=== PATIENT | female | born 1975 | race Caucasian/White ===

== ENCOUNTER 2019-06-06 10:49 | Outpatient (REF) | payer MEDICARE, MEDICAID, SELFPAY ==
[2019-06-06 19:17] LABS: ALT 32 U/L (14-59); AST 23 U/L (15-37); Albumin 4.1 g/dL (3.4-5.0); Alkaline Phosphatase 65 U/L (46-116); Anion Gap 8.4 mmol/L (3-11); BUN 13 mg/dL (7-18); Bilirubin, Total 0.6 mg/dL (0.2-1.0); CO2 28.6 mmol/L (21.0-32.0); CREATININE 0.89 mg/dL (0.55-1.02); Calcium 9.2 mg/dL (8.5-10.1); Calculated LDL 108 mg/dL; Chloride 99 mmol/L (98-107); Cholesterol 180 mg/dL (50-200); Glucose 282 mg/dL (70-100); HDL Cholesterol 58 mg/dL (40-60); Sodium 136 mmol/L (136-145); TSH (W/Ref FT4) 0.55 uIU/mL (0.36-3.74); Total Protein 7.7 g/dL (6.4-8.2); Triglyceride 71 mg/dL (30-150)
[2019-06-06 19:28] LABS: Vitamin D 25 Total 28.9 ng/ml (30-100)
== END 2019-06-06 11:09 ==
LOC: NCHCN 10:49
PROVIDERS: PCP Nurse Practitioner; Visit Provider Nurse Practitioner
DX: E55.9 Vitamin D deficiency, unspecified (principal); E78.5 Hyperlipidemia, unspecified; E10.65 Type 1 diabetes mellitus with hyperglycemia; Z13.29 Encounter for screening for other suspected endocrine disorder
CPT/HCPCS: 80053; 80061; 82306; 84443

== ENCOUNTER 2019-07-06 20:15 | Outpatient (REF) | payer MEDICARE, MEDICAID, SELFPAY ==
[2019-07-06 19:54] LABS: Abs Immature Grans 0.01 k/cumm (0.0-0.09); Absolute Basophil Count 0.03 k/cumm (0.0-0.2); Absolute Eosinophil Count 0.04 k/cumm (0.0-0.7); Absolute Lymphocyte Count 1.33 k/cumm (1.2-3.4); Absolute Monocyte Count 0.56 k/cumm (0.11-0.7); Absolute Neutrophil Count 5.75 k/cumm (1.2-6.7); Basophils % 0.4; Eosinophils % 0.5; HCT 43.3 % (36.0-46.0); HGB 14.6 g/dL (12.0-15.5); Immature Grans % 0.1; Lymphocytes % 17.2; Mean Corp. HGB Concentration 33.7 g/dL (32.0-36.0); Mean Corpuscular Hemoglobin 31.3 pg (27.0-33.0); Mean Corpuscular Volume 92.9 fL (80-95); Mean Platelet Volume 10.9 fL (8.0-11.0); Monocytes % 7.3; Neutrophils % 74.5; Platelet Count 194 x1000/uL (130-400); RBC 4.66 m/cumm (4.00-5.20); RBC Distribution Width 12.2 % (11.7-14.6); White Blood Cell Count 7.72 k/cumm (4.4-10.8)
[2019-07-06 20:19] LABS: Iron 105 ug/dL (50-170); Total Iron Binding Capacity 244 ug/dL (250-450); Transferrin Sat 43 % (15-50)
[2019-07-06 20:50] LABS: Ferritin 388 ng/mL (8-252)
[2019-07-06 22:34] LABS: Amylase 58 U/L (25-115); Lipase 54 U/L (73-393)
== END 2019-07-06 20:35 ==
LOC: NCHCN 20:15
PROVIDERS: PCP Nurse Practitioner; Visit Provider Nurse Practitioner
DX: R10.9 Unspecified abdominal pain (principal); E10.65 Type 1 diabetes mellitus with hyperglycemia
CPT/HCPCS: 83690; 82150; 82728; 83540; 83550; 85025

== ENCOUNTER 2019-07-14 00:29 | Outpatient (CLI) | payer MEDICARE, MEDICAID, SELFPAY ==
--- NOTE | 2019-07-14 12:05 | DI.CT_ITS ---
EXAM: CT ABDOMEN PELVIS W CLINICAL HISTORY: ABD PAIN, R10.9 TECHNIQUE: Post IV and oral contrast. COMPARISON: No exams were available for comparison FINDINGS: Lung bases are clear. The heart size is normal. The liver, gallbladder, spleen, pancreas, and adre nals appear normal. There is a small cyst and a few small calcifications at the lower pole of the le ft kidney. Nonobstructing stone is seen in the mid right kidney. The patient is status post hystere ctomy. The ovaries are unremarkable. The urinary bladder is distended and shows a question of mild wall thickening. No focal bladder mass or calcification is seen. The appendix appears normal. Ther e is increased quantity of stool seen throughout the colon. There is no bowel wall thickening or inf lammatory change. There is no abnormal small bowel or gastric dilatation. The aorta is normal in di ameter. There are no significant bony abnormalities. IMPRESSION: Distended urinary bladder with mild wall thickening. Increased quantity of stool could indicate an e lement of constipation.
[2019-07-14] MEDS: Omnipaque 350 MG/ML 100 ML BTL IV (12:49)
[2019-07-14] MEDS: Omnipaque 350 MG/ML 50 ML BTL PO (12:50)
[2019-07-14] MEDS: Breeza Beverage 473 ML BTL PO (12:50)
== END 2019-07-14 00:49 ==
PROVIDERS: PCP Nurse Practitioner; Visit Provider Nurse Practitioner
DX: R10.9 Unspecified abdominal pain (principal); N32.89 Other specified disorders of bladder; K59.00 Constipation, unspecified
CPT/HCPCS: 74177; J3490; Q9967

== ENCOUNTER 2019-07-25 00:48 | Outpatient (CLI) | payer MEDICARE, MEDICAID, SELFPAY ==
--- NOTE | 2019-07-25 09:47 | DI.US_ITS ---
EXAM: US RENAL CLINICAL HISTORY: BLADDER DISENTION N32.89 TECHNIQUE: Ultrasound performed using standard protocol. COMPARISON: PELVIS TRANSVAG from 04/13/2017 FINDINGS: The right kidney measures 10.4 centimeters long. There is a 4 millimeter echogenic focus in the lowe r pole suggestive of a nonobstructing stone. There is normal blood flow to the right kidney. No lori id renal mass is present. The left kidney measures 10.7 centimeters long. There is a 6 millimeter echogenic focus seen in the lower pole. This likely reflects a nonobstructing stone. There is normal blood flow to the left kid mikey. No solid renal mass is present. The prevoid urinary bladder volume is 580 cc. The bladder wall is within normal limits. No intralum inal mass is present. Both ureteral jets were visualized. IMPRESSION: Bilateral nephrolithiasis. No hydronephrosis.
== END 2019-07-25 01:08 ==
PROVIDERS: PCP Nurse Practitioner; Visit Provider Nurse Practitioner
DX: N32.89 Other specified disorders of bladder (principal); N20.0 Calculus of kidney
CPT/HCPCS: 76770

== ENCOUNTER 2020-09-20 16:11 | Outpatient (REF) | payer MEDICARE, MEDICAID, SELFPAY ==
[2020-09-20 16:04] LABS: COMMENT (LAB VIEW ONLY) 42.23 mg/dL; Microalb ug/mg Crea 14.2 ug/mg Cr
== END 2020-09-20 16:12 | disposition home or self-care (01) ==
LOC: NCHCN 16:11
PROVIDERS: PCP Nurse Practitioner; Visit Provider Nurse Practitioner
DX: E11.65 Type 2 diabetes mellitus with hyperglycemia (principal)
CPT/HCPCS: 82043; 82570

== ENCOUNTER 2020-10-30 13:01 | Outpatient (REF) | payer MEDICARE, MEDICAID, SELFPAY ==
[2020-10-30 16:38] LABS: ALT 29 U/L (14-59); AST 25 U/L (15-37); Albumin 4.1 g/dL (3.4-5.0); Alkaline Phosphatase 78 U/L (46-116); Anion Gap 8.8 mmol/L (3-11); BUN 14 mg/dL (7-18); Bilirubin, Total 0.7 mg/dL (0.2-1.0); CO2 30.2 mmol/L (21.0-32.0); CREATININE 0.8 mg/dL (0.55-1.02); Calcium 9.1 mg/dL (8.5-10.1); Calculated LDL 99 mg/dL (<100); Chloride 99 mmol/L (98-107); Cholesterol 212 mg/dL (<200); Glucose 81 mg/dL (74-106); HDL Cholesterol 100 mg/dL (40-60); Potassium 4.5 mmol/L (3.5-5.1); Sodium 138 mmol/L (136-145); Total Protein 8.1 g/dL (6.4-8.2); Triglyceride 65 mg/dL (<150)
== END 2020-10-30 13:02 | disposition home or self-care (01) ==
LOC: NCHCN 13:01
PROVIDERS: PCP Nurse Practitioner; Visit Provider Nurse Practitioner
DX: E10.65 Type 1 diabetes mellitus with hyperglycemia (principal); E78.5 Hyperlipidemia, unspecified
CPT/HCPCS: 80053; 80061

== ENCOUNTER 2021-12-04 15:58 | Outpatient (REF) | payer MEDICARE, MEDICAID, SELFPAY ==
[2021-12-04 14:40] LABS: Abs Immature Grans 0.03 10^3/uL (0.0-0.06); Absolute Basophil Count 0.03 10^3/uL (0.0-0.2); Absolute Eosinophil Count 0.02 10^3/uL (0.0-0.7); Absolute Lymphocyte Count 1.64 10^3/uL (1.2-3.4); Absolute Neutrophil Count 4.34 10^3/uL (1.2-6.7); Basophils % 0.5; Eosinophils % 0.3; Immature Grans % 0.5; MCH 31.4 pg (27.0-33.0); MCHC 33.3 % (32.0-36.0); MCV 94 fL (80-95); MPV 10.2 fL (8.0-11.0); Monocytes % 7.6; Neutrophils % 66.1; Platelet Count 204 10^3/uL (130-400); RBC 4.14 10^6/uL (3.93-5.22); RDW 11.8 % (11.7-14.6); RDW-SD 41.1 fL; WBC 6.56 10^3/uL (4.4-10.8)
[2021-12-04 14:44] LABS: COMMENT (LAB VIEW ONLY) 24.21 mg/dL; Microalb ug/mg Crea 10.7 ug/mg Cr
[2021-12-04 15:00] LABS: ALT 30 U/L (14-59); AST 22 U/L (15-37); Alkaline Phosphatase 93 U/L (46-116); Anion Gap 6.2 mmol/L (3-11); BUN 20 mg/dL (7-18); Bilirubin, Total 0.6 mg/dL (0.2-1.0); CO2 30.8 mmol/L (21.0-32.0); CREATININE 0.9 mg/dL (0.55-1.02); Calcium 9.1 mg/dL (8.5-10.1); Chloride 100 mmol/L (98-107); Glucose 310 mg/dL (74-106); Potassium 4.7 mmol/L (3.5-5.1); Sodium 137 mmol/L (136-145); Total Protein 7.4 g/dL (6.4-8.2)
[2021-12-05 02:06] LABS: Vitamin D 25 Total 42.3 ng/mL (30-100)
[2021-12-05 10:55] LABS: HIV-1/2 Ag & Ab Screen Negative (Negative)
[2021-12-05 11:15] LABS: Hepatitis C Ab w Rflx HCV PCR Negative (Negative)
== END 2021-12-04 15:59 | disposition home or self-care (01) ==
LOC: NCHCN 15:58
PROVIDERS: PCP Nurse Practitioner; Visit Provider Nurse Practitioner Family
DX: E11.65 Type 2 diabetes mellitus with hyperglycemia (principal); Z79.4 Long term (current) use of insulin; E78.5 Hyperlipidemia, unspecified; G62.9 Polyneuropathy, unspecified; J45.20 Mild intermittent asthma, uncomplicated; Z11.4 Encounter for screening for human immunodeficiency virus [HIV]; Z11.59 Encounter for screening for other viral diseases; N18.1 Chronic kidney disease, stage 1
CPT/HCPCS: 80053; 82306; 86803; 87389; 82043; 82570; 85025

== ENCOUNTER 2022-01-03 20:20 | Emergency (ER) | payer MEDICARE, MEDICAID, SELFPAY ==
--- NOTE | 2022-01-03 20:00 | RT.EKG_ITS ---
APPROVED REPORT Exam: Resting ECG Reason for Exam: unresponsive Patient Location: E HR:68 bpm ECG Measurements Heart Rate 68 AXIS WY 139 P 62 QRSd 98 QRS 93 QT 380 T 100 QTc 405 Conclusion Sinus rhythm...normal P axis Inferoposterior infarct, acute. Lateral infarct, acute. +STEMI
--- NOTE | 2022-01-03 20:15 | DI.RAD_ITS ---
Exam(s) XR PORTABLE CHEST AP EXAM: XR PORTABLE CHEST AP CLINICAL HISTORY: Chest pain. TECHNIQUE: 2D digital imaging was performed. COMPARISON: No exams were available for comparison FINDINGS: Single AP portable view. Heart size is upper normal. The mediastinum is not widened. Lungs are clear. No infiltrates nor obvious pleural effusions. IMPRESSION: No acute pulmonary findings on this single AP portable view of the chest. DATA REPOSITORY: RADIATION DOSE DELIVERED: All CT scans at this facility use at least one of these dose optimization techniques: automated exposure control; mA and/or kV adjustment per patient size (includes targeted e xams where dose is matched to clinical indication); or iterative reconstruction.
[2022-01-03 20:17] VITALS: BP 95/54; PULSE 72; RESP 18; TEMP 36.5; O2SAT 100
--- NOTE | 2022-01-03 20:27 | ED.GENADUL_ITS ---
Discharge Plan Disposition Patient Disposition: [facility] Condition: Critical Discharge Details Clinical Impression: ST elevation NV (STEMI) Primary Care Provider: Felisha Juan ED Provider: Carlos Leone Home Meds and New Rx's Prescriptions: No Action fluconazole [Diflucan] 150 mg tablet 150 mg PO ONCE Qty: 1 0RF Rx Instructions: as a single dose pravastatin 40 MG tablet 40 mg PO HS insulin glargine [Lantus Solostar U-100 Insulin] 100 UNIT/1 ML insulin pen 23 u SQ DAILY insulin lispro [Humalog KwikPen Insulin] 200 UNIT/1 ML insulin pen 200 unit SQ AC & HS Rx Instructions: Sliding scale Medical Decision Making This is a 36-year-old female who was at home with her boyfriend when he stated she seemed weak, profoundly diaphoretic as when she has had low glucose. He brought her orange juice and checked her glucose found in the mid 100s, then called EMS who found the patient to have large inferior STEMI. Patient was reported to have waxing and waning mental status on route and aspirin was held. She arrives afebrile with blood pressure 95/54, pulse of 60 to 70s and she is oxygenating normally on room air. She is placed on a hall monitor with obvious inferior STEMI and reciprocal posterior changes. She was given a liter of fluid, given 25 mg of aspirin and portable chest x-ray obtained. I discussed the case with the on-call classified advertising manager at [facility] & the patient was accepted to Dr. Trent's service. We agree that the patient has critical illness and meets criteria for thrombolysis. I consented the patient and her boyfriend for the risks of thrombolysis and subsequently proceeded with 35 mg of tenecteplase in addition to 300 mg of Plavix, aspirin, heparin with bolus and drip. Chest x-ray does reveal some vascular congestion, but the patient will be preload dependent and will continue with fluids. Her boyfriend Delano reports that she has been immunized and boosted against COVID-19. He states that she had some exertional dyspnea this week that he had attributed to her routine spring allergies. Lab Data Lab results reviewed: Yes I reviewed the patient's lab results. Labs: Laboratory Results - last 24 hr 01/03/22 01/03/22 01/03/22 20:43 20:43 20:43 WBC 5.37 RBC 3.74 L Hgb 11.8 Hct 34.8 L MCV 93 MCH 31.6 MCHC 33.9 RDW 12.0 Plt Count 181 MPV 9.8 Immature Gran % 0.2 Neutrophils % 45.4 Lymphocytes % 41.7 Monocytes % 10.8 Eosinophils % 1.3 Basophils % 0.6 Nucleated RBC % 0.0 Absolute Neutrophils 2.44 Absolute Lymphocytes 2.24 Absolute Monocytes 0.58 Absolute Eosinophils 0.07 Absolute Basophils 0.03 PT 10.4 INR 1.0 APTT 20.0 L Sodium 137 Potassium 3.9 Chloride 104 Carbon Dioxide 27.9 Anion Gap 5.1 BUN 14 Creatinine 0.8 Estimated GFR/1.73 m2 >= 60.00 Glucose 110 H Calcium 9.1 Magnesium 2.2 Total Bilirubin 0.4 AST 24 ALT 22 Alkaline Phosphatase 72 Troponin I 129 H* Total Protein 6.9 Albumin 3.4 COVID-19 Source 01/03/22 21:00 WBC RBC Hgb Hct MCV MCH MCHC RDW Plt Count MPV Immature Gran % Neutrophils % Lymphocytes % Monocytes % Eosinophils % Basophils % Nucleated RBC % Absolute Neutrophils Absolute Lymphocytes Absolute Monocytes Absolute Eosinophils Absolute Basophils PT INR APTT Sodium Potassium Chloride Carbon Dioxide Anion Gap BUN Creatinine Estimated GFR/1.73 m2 Glucose Calcium Magnesium Total Bilirubin AST ALT Alkaline Phosphatase Troponin I Total Protein Albumin COVID-19 Source Nasal/Nares HPI General Mode of arrival: EMS . Date/Time Provider Initiated Documentation: 01/03/22 20:33 . Information obtained by: patient and EMS . History of Present Illness 46 year old F presents to the emergency department with the chief complaint of Chest pain that began approxi-1 hour ago, described as moderate and severe, and is localized to the chest. Patient reports no radiation. Patient started experiencing this minute(s) and it has been constant. No relieving factors improve symptom(s), No exacerbating factors reported . Patient notes chest pain, shortness of breath and weakness. Patient did receive the following treatments prior to arrival, none Related Data Home Medications Medication Instructions Recorded Confirmed insulin glargine 100 unit/mL (3 23 u SQ DAILY 01/24/16 mL) subcutaneous pen (Lantus Solostar U-100 Insulin) insulin lispro 200 unit/mL (3 mL) 200 unit SQ AC & HS 01/24/16 subcutaneous pen (Humalog KwikPen U-200 Insulin) pravastatin 40 mg tablet 40 mg PO HS 01/24/16 fluconazole 150 mg tablet 150 mg PO ONCE yeast #1 tab 04/16/18 04/16/18 (Diflucan) Previous Rx's Medication Instructions Recorded fluconazole 150 mg tablet 150 mg PO ONCE yeast #1 tab 04/16/18 (Diflucan) Allergies Allergy/AdvReac Type Severity Reaction Status Date / Time aspirin Allergy Intermediate Sick to Unverified 01/03/22 20:24 stomach codeine Allergy Intermediate Nausea Unverified 01/03/22 20:24 General Stated Complaint: CVA/TIA MITCHELL: 1 Review of Systems Narrative: Chest pain. Patient was diaphoretic and nauseated at home. There was no syncope. She did not fall. PFSH All Active Problems (Updated 01/03/22 @ 20:48 by Carlos Leone MD) ST elevation NV (STEMI) (Acute) Diabetes (Chronic) Social History Smoking/Tobacco Use Status: Never Smoking risk assessment performed?: Yes Alcohol Intake: never Drug use: Never Substance use type: does not use Seatbelt use: always Do you feel safe at home: Yes Do you feel safe in your relationship?: Yes Female Reproductive History Menstrual Menopause type: surgical History History 14 Para Hx # Term Pregnancies Multiple births Hx # Pregnancies 1 Ectopic pregnancies AB induced Hx Number of Living Children AB spontaneous Exam Narrative Exam Narrative: GEN: awake, alert, responds to voice.Interactive. HEAD: Normocephalic, atraumatic ENT: Mucous membranes moist, oropharynx unremarkable, External ear exam unremarkable EYES: PERRL, EOMI NECK: Full ROM, no COLUMBA, no menigismus CHEST/RESP: Nontender, clear to auscultation bilateral, no wheeze/rhonchi/rales CARDIOVASCULAR: Bradycardic, distant. Weak rad pulse bilateral ABDOMEN: Soft, nontender, no mass. +Bowel sounds EXT: Full ROM, no edema, no rash Neuro: Grossly normal neurologic exam, conversant, interactive. Psych: Speech fluent, thoughts congruent, affect normal Course Vital Signs Vital signs: Vital Signs Temperature 36.5 C 01/03/22 20:17 Pulse 72 01/03/22 20:17 Respiratory Rate 18 01/03/22 20:17 Blood Pressure 95/54 L 01/03/22 20:17 Pulse Oximetry 100 01/03/22 20:17 Temperature 36.5 C 01/03/22 20:17 Temperature Source Tympanic 01/03/22 20:17 Pulse 72 01/03/22 20:17 Respiratory Rate 18 01/03/22 20:17 Respiratory Effort 01/03/22 20:23 Blood Pressure 95/54 L 01/03/22 20:17 Blood Pressure Position Supine 01/03/22 20:17 Pulse Oximetry 100 01/03/22 20:17 Oxygen Delivery Method Room Air 01/03/22 20:17 Oxygen Flow Rate 0 01/03/22 20:17 Pain Level 8 01/03/22 20:17 Critical Care Time Critical Care Time Critical Care Time: Yes Total Critical Care Time: 30 Attestation: Bedside care, review of records, discussion [facility] family and information services consultant
[2022-01-03] MEDS: Aspirin 325 MG TAB PO (20:29)
[2022-01-03] MEDS: Ondansetron 4 MG/2 ML VIAL IVP (20:29)
--- NOTE | 2022-01-03 20:43 | DI.VRAD_ITS ---
PROCEDURE INFORMATION: Exam: XR Chest Exam date and time: 01/03/2022 20:16 Age: 46 years old Clinical indication: Pain; Other: Stemi TECHNIQUE: Imaging protocol: XR of the chest. Views: 1 view. COMPARISON: CT ABDOMEN PELVIS W 07/14/2019 12:22 FINDINGS: Lungs: Minor vascular congestion is likely technique related. No airspace consolidation. Pleural spaces: No pleural effusion. No pneumothorax. Heart/Mediastinum: No significant cardiomegaly. Bones/joints: No acute fracture. IMPRESSION: Minor vascular congestion is likely technique related. Dictated and Authenticated by: Natalya Huddleston MD. Ordering:BRIAN Gonzalez MD
[2022-01-03 20:55] LABS: Abs Immature Grans 0.01 10^3/uL (0.0-0.06); Absolute Basophil Count 0.03 10^3/uL (0.0-0.2); Absolute Eosinophil Count 0.07 10^3/uL (0.0-0.7); Absolute Lymphocyte Count 2.24 10^3/uL (1.2-3.4); Absolute Monocyte Count 0.58 10^3/uL (0.1-0.8); Absolute Neutrophil Count 2.44 10^3/uL (1.2-6.7); Basophils % 0.6; Eosinophils % 1.3; HCT 34.8 % (36.0-46.0); HGB 11.8 g/dL (11.2-15.7); Immature Grans % 0.2; Lymphocytes % 41.7; MCH 31.6 pg (27.0-33.0); MCHC 33.9 % (32.0-36.0); MCV 93 fL (80-95); MPV 9.8 fL (8.0-11.0); Monocytes % 10.8; Neutrophils % 45.4; Platelet Count 181 10^3/uL (130-400); RBC 3.74 10^6/uL (3.93-5.22); RDW-SD 41.4 fL; WBC 5.37 10^3/uL (4.4-10.8)
[2022-01-03] MEDS: Clopidogrel 300 MG TAB PO (21:04)
[2022-01-03] MEDS: Tenecteplase 50 MG KIT 35 MG IVP (21:06)
--- NOTE | 2022-01-03 21:07 | NUR.NOTE ---
Heparin started 2045 800 units/hr per MD order.
[2022-01-03 21:09] LABS: Source Nasal/Nares
[2022-01-03 21:11] LABS: Prothrombin Time 10.4 sec (9.3-11.0)
[2022-01-03 21:14] LABS: ALT 22 U/L (14-59); AST 24 U/L (15-37); Albumin 3.4 g/dL (3.4-5.0); Alkaline Phosphatase 72 U/L (46-116); Anion Gap 5.1 mmol/L (3-11); BUN 14 mg/dL (7-18); Bilirubin, Total 0.4 mg/dL (0.2-1.0); CO2 27.9 mmol/L (21.0-32.0); CREATININE 0.8 mg/dL (0.55-1.02); Calcium 9.1 mg/dL (8.5-10.1); Chloride 104 mmol/L (98-107); Glucose 110 mg/dL (74-106); Magnesium 2.2 mg/dL (1.8-2.4); Potassium 3.9 mmol/L (3.5-5.1); Sodium 137 mmol/L (136-145); Total Protein 6.9 g/dL (6.4-8.2)
[2022-01-03 21:17] LABS: Troponin I 129 ng/L (<or=60)
[2022-01-03 22:00] LABS: COVID-19 PCR Negative (Negative)
== END 2022-01-03 21:11 | disposition short-term general hospital (02) ==
PROVIDERS: Emergency Provider Emergency Medicine; PCP Nurse Practitioner
DX: I21.19 ST elevation (STEMI) myocardial infarction involving other coronary artery of inferior wall (principal); Z20.822 Contact with and (suspected) exposure to COVID-19
CPT/HCPCS: 80053; 87635; 93005; 96365; 96375; 96376; 99291; 71045; 83735; 84484; 85025; 85610; 85730; 93010; J2405; J3101

== ENCOUNTER 2022-01-12 18:12 | Emergency (ER) | payer MEDICARE, MEDICAID, SELFPAY ==
--- NOTE | 2022-01-12 18:00 | RT.EKG_ITS ---
APPROVED REPORT Exam: Resting ECG Reason for Exam: chest pain Patient Location: E HR:80 bpm ECG Measurements Heart Rate 80 AXIS MS 141 P 72 QRSd 113 QRS -33 QT 378 T -42 QTc 435 Conclusion Sinus rhythm...normal P axis, V-rate 60- 99 Incomplete RBBB and LAFB...axis(240,-40), S>R II III aVF
[2022-01-12 18:09] VITALS: BP 133/67; PULSE 77; RESP 25; TEMP 36.7; O2SAT 98
--- NOTE | 2022-01-12 18:30 | DI.RAD_ITS ---
Exam(s) XR PORTABLE CHEST AP EXAM: XR PORTABLE CHEST AP CLINICAL HISTORY: chest pain TECHNIQUE: 2D digital imaging was performed. COMPARISON: CR,XR XR PORTABLE CHEST AP from 01/03/2022 FINDINGS: LUNGS: Clear. No pleural abnormality seen. HEART: Normal. AORTA: Normal. BONES: Unremarkable for age. Soft tissues: Unremarkable. IMPRESSION: No acute findings. DATA REPOSITORY: RADIATION DOSE DELIVERED:
--- NOTE | 2022-01-12 18:33 | W.ED.GENAD ---
Discharge Plan Disposition Patient Disposition: STILL A PATIENT Condition: Stable Discharge Details Clinical Impression: Chest pain Primary Care Provider: Felisha Juan ED Provider: Cam Wilcox Home Meds and New Rx's Prescriptions: No Action fluconazole [Diflucan] 150 mg tablet 150 mg PO ONCE Qty: 1 0RF Rx Instructions: as a single dose pravastatin 40 MG tablet 40 mg PO HS insulin glargine [Lantus Solostar U-100 Insulin] 100 UNIT/1 ML insulin pen 23 u SQ DAILY Humalog KwikPen Insulin 200 UNIT/1 ML insulin pen 200 unit SQ AC & HS Rx Instructions: Sliding scale atorvastatin 80 mg tablet 80 mg PO DAILY Label Comments: TAKE ONE TABLET BY MOUTH EVERY EVENING metoprolol succinate 50 mg tablet extended release 24 hr 50 mg PO DAILY Label Comments: Take 1 tablet by mouth once a day clopidogrel [Plavix] 75 mg tablet 75 mg PO DAILY Label Comments: Take 1 tablet by mouth once a day cholecalciferol (vitamin D3) 25 mcg (1,000 unit) tablet 25 mcg PO DAILY Label Comments: TAKE ONE-HALF TABLET BY MOUTH TWICE A DAY Medical Decision Making 46 yo female with hx of IDDM who had a stemi on 01/03 and had 2 TRACIE placed to the RCA at [facility] [place], [place], comes in with general fatigue since having the MT and also intermittent shapr chest pain primarily when she wakes up. She denies fevers, dyspnea, n/v, abdominal pain. She was reportedly lethargic per the to EMS when he called tonight but was awake with EMS and is caox4 and awake on my exam but does appear fatigued. She is speaking clearly, moving all extremities equally. She has clear lungs, no murmurs, soft nontender abdomen. Her fatigue could be from her recent MT vs being on new meds such as metoprolol. EKG shows no acute findings compared to ekg at [facility] [place] [place]. Will obtain troponin, cbc, cmp and reassess. She has no tachycardia or hypoxia and no evidence of dvt on exam so doubt PE and no tearing back pain so doubt dissection. Her pain could be due to conchita syndrome as well. xray unrmarkable, troponin is 78 which could still be down trending from last week. She is stable, no pain now, will discuss with cardiology at [facility] [place] [place] pt signed out to oncoming provider pending cardiology recommendations Differential Diagnosis Differential Diagnosis: pericarditis, medication reaction, anemia Medical Records Medical records reviewed: Yes I reviewed the patient's medical records. Imaging Data Radiologic Study: Attestation: I personally reviewed and interpreted this imaging study as follows: Imaging: X-Ray My impression: no acute findings Radiologist's impression: no acute findings Lab Data Lab results reviewed: Yes I reviewed the patient's lab results. ECG Data Attestation: I personally reviewed and interpreted this ECG (s) as follows: Prior ECG tracings: available for review Interpretation: sinus rhythm, rate of 80, pr 141, no acute st t wave ischemic findings compared to last ekg done at [facility] Mode of arrival: EMS. Date/Time Provider Initiated Documentation: 01/12/22 18:17. Limitations to Documentation: no limitations. Information obtained by: patient. History of Present Illness 46 year old F presents to the emergency department with the chief complaint of tired, described as moderate, Patient started experiencing this week(s) (1) and it has been constant. No relieving factors improve symptom(s), No exacerbating factors reported . Patient notes chest pain. Patient did receive the following treatments prior to arrival, none Related Data Home Medications Medication Instructions Recorded Confirmed insulin glargine 100 unit/mL (3 23 u SQ DAILY 01/24/16 01/12/22 mL) subcutaneous pen (Lantus Solostar U-100 Insulin) insulin lispro 200 unit/mL (3 mL) 200 unit SQ AC & HS 01/24/16 01/12/22 subcutaneous pen (Humalog KwikPen U-200 Insulin) pravastatin 40 mg tablet 40 mg PO HS 01/24/16 01/12/22 fluconazole 150 mg tablet 150 mg PO ONCE yeast #1 tab 04/16/18 01/12/22 (Diflucan) atorvastatin 80 mg tablet 80 mg PO DAILY 01/12/22 01/12/22 cholecalciferol (vitamin D3) 25 25 mcg PO DAILY 01/12/22 01/12/22 mcg (1,000 unit) tablet clopidogrel 75 mg tablet (Plavix) 75 mg PO DAILY 01/12/22 01/12/22 metoprolol succinate 50 mg 50 mg PO DAILY 01/12/22 01/12/22 tablet,extended release 24 hr Previous Rx's Medication Instructions Recorded fluconazole 150 mg tablet 150 mg PO ONCE yeast #1 tab 04/16/18 (Diflucan) Allergies Allergy/AdvReac Type Severity Reaction Status Date / Time aspirin Allergy Intermediate Sick to Unverified 01/12/22 18:16 stomach codeine Allergy Intermediate Nausea Unverified 01/12/22 18:16 General Stated Complaint: GenMedical MITCHELL: 3 Review of Systems All systems reviewed & are unremarkable except as noted in HPI and below Constitutional Constitutional: Denies chills and Denies fever(s) Cardiovascular Cardiovascular: Denies dyspnea Respiratory Respiratory: Denies cough and Denies dyspnea Gastrointestinal Gastrointestinal: Denies abdominal pain, Denies nausea and Denies vomiting Genitourinary Genitourinary: Denies dysuria Musculoskeletal Musculoskeletal: Denies joint swelling Integumentary/Breasts Skin/Breast: Denies rash PFSH All Active Problems (Updated 01/12/22 @ 19:21 by Cam Wilcox MD) ST elevation MT (STEMI) (Acute) Chest pain (Acute) Diabetes (Chronic) Social History Smoking/Tobacco Use Status: Never Smoking risk assessment performed?: Yes Alcohol Intake: never Drug use: Never Substance use type: does not use Seatbelt use: always Do you feel safe at home: Yes Do you feel safe in your relationship?: Yes Female Reproductive History Menstrual Menopause type: surgical History History 14 Para Hx # Term Pregnancies Multiple births Hx # Pregnancies 1 Ectopic pregnancies AB induced Hx Number of Living Children AB spontaneous Exam Const General: no acute distress Orientation: alert HENMT Head: normal to inspection Ears: external ears normal General nose exam: external nose normal Mouth: moist mucous membranes Eyes General: appearance normal, both eyes and all related structures Neck Neck: normal visual inspection Resp Effort & Inspection: normal respiratory effort and able to speak in complete sentences Cardio Rate: regular rate GI Palpation: soft and nontender Skin General skin exam: no rashes or lesions noted Neuro General: patient alert and patient oriented x3 Extrem General: normal to inspection Psych Mental Status: mental status grossly normal Course Vital Signs Vital signs: Vital Signs Temperature 36.7 C 01/12/22 18:09 Pulse 77 01/12/22 18:09 Respiratory Rate 25 H 01/12/22 18:09 Blood Pressure 133/67 01/12/22 18:09 Pulse Oximetry 98 01/12/22 18:09 Temperature 36.7 C 01/12/22 18:09 Pulse 77 01/12/22 18:09 Respiratory Rate 25 H 01/12/22 18:09 Respiratory Effort 01/12/22 18:19 Respiratory Depth Normal 01/12/22 18:19 Respiratory Pattern Normal 01/12/22 18:19 Blood Pressure 133/67 01/12/22 18:09 Pulse Oximetry 98 01/12/22 18:09
[2022-01-12 18:44] LABS: Abs Immature Grans 0.01 10^3/uL (0.0-0.06); Absolute Basophil Count 0.04 10^3/uL (0.0-0.2); Absolute Eosinophil Count 0.13 10^3/uL (0.0-0.7); Absolute Neutrophil Count 2.84 10^3/uL (1.2-6.7); Basophils % 0.7; Eosinophils % 2.4; HCT 38.8 % (36.0-46.0); Immature Grans % 0.2; Lymphocytes % 34.4; MCH 30.7 pg (27.0-33.0); MCHC 33.5 % (32.0-36.0); MCV 92 fL (80-95); MPV 9.8 fL (8.0-11.0); Monocytes % 10.9; Neutrophils % 51.4; Platelet Count 220 10^3/uL (130-400); RBC 4.24 10^6/uL (3.93-5.22); RDW 12.1 % (11.7-14.6); RDW-SD 40.5 fL; WBC 5.52 10^3/uL (4.4-10.8)
[2022-01-12 18:46] LABS: BE (Venous) 6 mmol/L (-2-3); HCO3 (Venous) 31 mmol/L (23-28); O2 Sat (Venous) 53 %; TCO2 (Venous) 29 mmol/L (24-29); pCO2 (Venous) 57 mmHg (41-51); pH (Venous) 7.35 (7.31-7.41); pO2 (Venous) 30 mmHg
[2022-01-12 19:00] LABS: INR 1.1 (0.9-1.1); PTT Activated 20.6 sec (21.0-27.5); Prothrombin Time 10.8 sec (9.3-11.0)
[2022-01-12 19:09] LABS: ALT 35 U/L (14-59); AST 24 U/L (15-37); Alkaline Phosphatase 97 U/L (46-116); BUN 19 mg/dL (7-18); Bilirubin, Total 0.5 mg/dL (0.2-1.0); CREATININE 1.1 mg/dL (0.55-1.02); Calcium 9.5 mg/dL (8.5-10.1); Chloride 100 mmol/L (98-107); Estimated GFR 53.24 (mL/min/1.73m2); Glucose 225 mg/dL (74-106); Lipase 65 U/L (73-393); Magnesium 2.1 mg/dL (1.8-2.4); Potassium 4.4 mmol/L (3.5-5.1); Sodium 137 mmol/L (136-145); TSH (W/Ref FT4) 1.19 uIU/mL (0.36-3.74); Total Protein 7.9 g/dL (6.4-8.2)
[2022-01-12 19:10] LABS: Troponin I 78 ng/L (<or=60)
--- NOTE | 2022-01-12 19:19 | DI.VRAD_ITS ---
PROCEDURE INFORMATION: Exam: XR Chest Exam date and time: 01/12/2022 6:30 PM Age: 46 years old Clinical indication: Chest pressure; Prior surgery; Surgery date: <1 month; Surgery type: Stent after stemi on 01/03/22; Patient HX: Chest pain TECHNIQUE: Imaging protocol: XR of the chest. Views: 1 view. COMPARISON: XR PORTABLE CHEST AP 01/03/2022 8:16 PM FINDINGS: Tubes, catheters and devices: Monitoring wires noted. Lungs: Unremarkable. No consolidation. Pulmonary vessels are not congested. Pleural spaces: Unremarkable. No pleural effusion. No pneumothorax. Heart/Mediastinum: Coronary artery stent material noted. No cardiomegaly. Normal mediastinal contours. Bones/joints: Unremarkable. IMPRESSION: No acute cardiopulmonary abnormality. Dictated and Authenticated by: Cam Guerra MD. Ordering:FRANKLIN Levy MD
--- NOTE | 2022-01-12 20:06 | ED.PROG_ITS ---
Date of service: 01/12/22 Time of Service: 20:06 Medical Decision Making Patient signed out to me pending discussion with [facility] cardiology and repeat troponin/EKG. Patient had presented with fatigue and malaise and seen primarily by Dr. Wilcox. Recent STEMI and discharge from [facility] earlier this month. Multiple new medications including beta-vesna. Discussed with [facility] cardiology and agree with plan for repeat Trope and EKG and if no change discharge with follow-up primary care and with scheduled cardiology appointment. Repeat troponin and EKG unchanged. Discussed with patient and . Return precautions provided. Lab Data Lab results reviewed: Yes I reviewed the patient's lab results. ECG Data Attestation: I personally reviewed and interpreted this ECG (s) as follows: Prior ECG tracings: available for review Interpretation: see ekg no change Sign Out Sign Out Data: Sign Out Comment: stemi a week ago, here with general malaise and nonspecific chest pain. Pending delta troponin and cardiology consult Last updated by Cam Wilcox MD at 01/12/22 19:49 Discharge Plan Disposition Patient Disposition: HOME Condition: Stable Discharge Details Clinical Impression: Malaise and fatigue, Chest pain Primary Care Provider: Felisha Juan ED [facility] New Rx's Prescriptions: Continued fluconazole [Diflucan] 150 mg tablet 150 mg PO ONCE Qty: 1 0RF Rx Instructions: as a single dose pravastatin 40 MG tablet 40 mg PO HS insulin glargine [Lantus Solostar U-100 Insulin] 100 UNIT/1 ML insulin pen 23 u SQ DAILY Humalog KwikPen Insulin 200 UNIT/1 ML insulin pen 200 unit SQ AC & HS Rx Instructions: Sliding scale atorvastatin 80 mg tablet 80 mg PO DAILY Label Comments: TAKE ONE TABLET BY MOUTH EVERY EVENING metoprolol succinate 50 mg tablet extended release 24 hr 50 mg PO DAILY Label Comments: Take 1 tablet by mouth once a day clopidogrel [Plavix] 75 mg tablet 75 mg PO DAILY Label Comments: Take 1 tablet by mouth once a day cholecalciferol (vitamin D3) 25 mcg (1,000 unit) tablet 25 mcg PO DAILY Label Comments: TAKE ONE-HALF TABLET BY MOUTH TWICE A DAY Discharge Instructions Additional Instructions: You were seen in the ED for general malaise and fatigue while recovering from your recent KS. You have also been having short-lived intermittent chest pain mostly in the morning which does not appear to be cardiac. Your evaluation including laboratory studies, EKG, chest x-ray are reassuring. We did speak to cardiology at [facility] who are in agreement that your general malaise and fatigue is likely due to recovery from the KS and adjusting to your new medication regimen. Please follow-up with primary care in 1 to 2 weeks. Keep previous cardiology appointment as scheduled. Return to ED for any new or persistent chest pain, shortness of breath, fever, neurologic change, other concerns Referrals: Felisha Juan [Primary Care Provider] - 1 week Discharge Data Discharge Date/Time-TO BE ENTERED AT DEPARTURE: 01/12/22 23:10
--- NOTE | 2022-01-12 22:00 | RT.EKG_ITS ---
APPROVED REPORT Exam: Resting ECG Reason for Exam: chest pain Patient Location: E HR:73 bpm ECG Measurements Heart Rate 73 AXIS [place] 146 P 43 QRSd 109 QRS -31 QT 367 T -37 QTc 405 Conclusion Sinus rhythm...normal P axis, V-rate 60- 99 Incomplete RBBB and LAFB...axis(240,-40), S>R II III aVF There are no significant changes compared to prior EKG performed on 01/12/2022 at 18:13.
[2022-01-12 22:28] LABS: Troponin I 71 ng/L (<or=60)
[2022-01-12 23:06] VITALS: BP 112/82; PULSE 60; RESP 18; TEMP 37; O2SAT 98
== END 2022-01-12 23:10 | disposition home or self-care (01) ==
LOC: ER 23:10
PROVIDERS: Emergency Medicine; Emergency Provider Emergency Medicine; PCP Nurse Practitioner
DX: R53.83 Other fatigue (principal); I21.9 Acute myocardial infarction, unspecified; E11.9 Type 2 diabetes mellitus without complications
CPT/HCPCS: 36415; 80053; 82805; 83690; 93005; 99284; 71045; 83735; 84443; 84484; 85025; 85610; 85730; 93010

== ENCOUNTER 2022-02-22 18:47 | Observation (INO) | payer MEDICARE, MEDICAID, SELFPAY ==
[2022-02-22] VITALS (46 sets, daily range): BP systolic 93–117; BP diastolic 41–72; PULSE 70–89; RESP 10–34; TEMP 35.7–36.8; O2SAT 95–100
--- NOTE | 2022-02-22 18:30 | RT.EKG_ITS ---
APPROVED REPORT Exam: Resting ECG Reason for Exam: chest pain Patient Location: E HR:96 bpm ECG Measurements Heart Rate 96 AXIS [place] 145 P 35 QRSd 106 QRS -50 QT 371 T 30 QTc 437 Conclusion Sinus rhythm...normal P axis, V-rate 60- 99 Multiform ventricular premature complexes...short R-R, variable morphology LAD, consider left anterior fascicular block...axis(240,-40), S>R II III aVF Low voltage, extremity leads...all extremity leads <0.5mV sinus rhythm, left axis, ST depressions II III aVF, slight concave ST segment elevation V2, unchanged from most recent ekg
--- NOTE | 2022-02-22 18:45 | DI.RAD_ITS ---
Exam(s) XR PORTABLE CHEST AP EXAM: XR PORTABLE CHEST AP CLINICAL HISTORY: chest pain, CAD with stents TECHNIQUE: 2D digital imaging was performed of the chest. One image was obtained. An AP view was ob tained. COMPARISON: CR,XR XR PORTABLE CHEST AP from 01/12/2022 FINDINGS: MEDIASTINUM: Normal. HEART: Normal. PULMONARY VASCULATURE: Normal. LUNGS: Clear. PLEURAL SPACE: No pleural effusion or pneumothorax. BONE:Within normal limits for the patient's age. OTHER FINDINGS:Normal. IMPRESSION: No acute pulmonary findings. DATA REPOSITORY: RADIATION DOSE DELIVERED:
--- NOTE | 2022-02-22 18:54 | ED.GENADUL_ITS ---
Discharge Plan Disposition Patient Disposition: STILL A PATIENT Condition: Stable Discharge Details Chief Complaint: Chest Pain Clinical Impression: Chest pain, Nausea Primary Care Provider: Felisha Juan ED Provider: Willis Crook Home Meds and New Rx's Prescriptions: No Action fluconazole [Diflucan] 150 mg tablet 150 mg PO ONCE Qty: 1 0RF Rx Instructions: as a single dose pravastatin 40 MG tablet 40 mg PO HS Humalog KwikPen Insulin 200 UNIT/1 ML insulin pen 200 unit SQ AC & HS Rx Instructions: Sliding scale insulin glargine [Lantus Solostar U-100 Insulin] 100 unit/mL (3 mL) insulin pen 10 unit subcut QAM docusate sodium [Colace] 100 mg capsule 100 mg PO DAILY PRN albuterol sulfate 2.5 mg /3 mL (0.083 %) solution for nebulization 2.5 mg inhalation Q8H PRN (DME) Ketostix Strip See Rx Instructions .ROUTE Rx Instructions: As directed glucagon 1 mg kit subcut PRN aspirin [Children's Aspirin] 81 mg tablet,chewable 81 mg PO DAILY albuterol sulfate [ProAir HFA] 90 mcg/actuation HFA aerosol inhaler 2 puff inhalation Q6H PRN omeprazole 20 mg capsule,delayed release(DR/EC) 20 mg PO DAILY atorvastatin 80 mg tablet 80 mg PO DAILY Label Comments: TAKE ONE TABLET BY MOUTH EVERY EVENING metoprolol succinate 50 mg tablet extended release 24 hr 50 mg PO DAILY Label Comments: Take 1 tablet by mouth once a day clopidogrel [Plavix] 75 mg tablet 75 mg PO DAILY Label Comments: Take 1 tablet by mouth once a day cholecalciferol (vitamin D3) 25 mcg (1,000 unit) tablet 25 mcg PO DAILY Label Comments: TAKE ONE-HALF TABLET BY MOUTH TWICE A DAY Medical Decision Making 48-year-old female recent inferior STEMI with stent placement at [facility] presents with chest pain and fatigue,associated with nausea. History of diabetes blood sugar in the 200s today. No respiratory distress, noted to have soft blood pressure arrival however did receive nitroglycerin in the field. Also received 324 mg of aspirin. Chest pain slowly improving. Concern for ACS. Will administer fluid bolus, will obtain labs including troponin electrolytes chest x-ray close assessment disposition pending labs and reassessment. EKG showing ST segment depression and T wave inversions to 3 aVF with slight concave elevation in V2, largely unchanged from most recent EKG 19: 30 records from [facility] showed the patient received 2 drug-eluting stents to RCA, patient endorses compliance with Plavix. Spoke with patient's boyfriend who endorses that patient symptomatology began around 430 or 5 this evening after eating she became nauseous and vomited. Patient resting comfortably no acute distress at this time however still appears fatigued. Noted to be anemic baseline greater than 13 now nearing 8. Patient denies black tarry stool or rectal bleeding, denies vaginal bleeding, endorses partial hysterectomy. Denies recent injuries however does state that occasionally her urine was red within the last couple of weeks. 19: 53 patient noted to be pancytopenic as well as hyponatremic hypokalemic hypocalcemic, spoke with nursing team who did in fact draw blood more proximally to a peripheral IV, this likely represents delusional lab values. We will redraw CBC and CMP. HPI General Date/Time Provider Initiated Documentation: 02/22/22 18:51 . HPI Narrative: 46-year-old female history of diabetes CKD, prior coronary artery disease with stenting to the right side of the heart presents with chest pain associated with fatigue and mild nausea. Fingerstick in the field in the 200s. Given nitro and aspirin in the field. Related Data Home Medications Medication Instructions Recorded Confirmed insulin lispro 200 unit/mL (3 mL) 200 unit SQ AC & HS 01/24/16 02/22/22 subcutaneous pen (Humalog KwikPen U-200 Insulin) pravastatin 40 mg tablet 40 mg PO HS 01/24/16 02/22/22 fluconazole 150 mg tablet 150 mg PO ONCE yeast #1 tab 04/16/18 02/22/22 (Diflucan) atorvastatin 80 mg tablet 80 mg PO DAILY 01/12/22 02/22/22 cholecalciferol (vitamin D3) 25 25 mcg PO DAILY 01/12/22 02/22/22 mcg (1,000 unit) tablet clopidogrel 75 mg tablet (Plavix) 75 mg PO DAILY 01/12/22 02/22/22 metoprolol succinate 50 mg 50 mg PO DAILY 01/12/22 02/22/22 tablet,extended release 24 hr acetone (urine) test (Ketostix 01/29/22 strips) albuterol sulfate 2.5 mg/3 mL 2.5 mg inhalation Q8H PRN 01/29/22 02/22/22 (0.083 %) solution for nebulization albuterol sulfate 90 mcg/actuation 2 puff inhalation Q6H PRN 01/29/22 02/22/22 aerosol inhaler (ProAir HFA) aspirin 81 mg chewable tablet 81 mg PO DAILY 01/29/22 02/22/22 (Children's Aspirin) docusate sodium 100 mg capsule 100 mg PO DAILY PRN 01/29/22 02/22/22 (Colace) glucagon 1 mg injection kit mg subcut PRN 01/29/22 insulin glargine 100 unit/mL (3 10 unit subcut QAM 01/29/22 02/22/22 mL) subcutaneous pen (Lantus Solostar U-100 Insulin) omeprazole 20 mg capsule,delayed 20 mg PO DAILY 01/29/22 02/22/22 release Previous Rx's Medication Instructions Recorded fluconazole 150 mg tablet 150 mg PO ONCE yeast #1 tab 04/16/18 (Diflucan) General Stated Complaint: Chest Pain MITCHELL: 3 Review of Systems Narrative: Review of Systems Constitutional: negative Eyes: negative ENT: negative Cardiovascular: chest pain Respiratory: negative Gastrointestinal: Nausea : negative Musculoskeletal: negative Skin: negative Neurologic: negative Psych: negative PFSH All Active Problems (Updated 02/22/22 @ 19:56 by Willis Crook MD) Chest pain (Acute) Nausea (Acute) Cancer of cervix (Acute) Neurogenic bladder (Acute) Vitamin D deficiency (Acute) History of deep vein thrombophlebitis of lower extremity (Acute) Neuropathy (Acute) Hyperkalemia (Acute) Chronic kidney disease, stage I (Acute) Hearing loss (Acute) Blind right eye (Acute) Visual loss (Acute) Acute pain in female pelvis (Acute) Asthma (Chronic) GERD (gastroesophageal reflux disease) (Chronic) Cellulitis of foot (Acute) Elevated troponin (Acute) Diabetes (Chronic) Social History Smoking/Tobacco Use Status: Never Smoking risk assessment performed?: Yes Alcohol Intake: never Drug use: Never Substance use type: does not use Seatbelt use: always Do you feel safe at home: Yes Do you feel safe in your relationship?: Yes Female Reproductive History Menstrual Menopause type: surgical History History 14 Para Hx # Term Pregnancies Multiple births Hx # Pregnancies 1 Ectopic pregnancies AB induced Hx Number of Living Children AB spontaneous Exam Narrative Exam Narrative: Physical Examination General: alert, awake, cooperative, appears somnolence HEENT: normocephalic, atraumatic; PERRL, EOM intact, conjunctiva normal; no nasal discharge; moist mucous membranes, oral and pharyngeal mucosa normal, tolerating secretions Neck: supple, trachea midline; full ROM Chest: normal to inspection Respiratory: normal respiratory effort, speaking in full sentences, clear to auscultation, no wheezing, rales or rhonchi Cardiac: regular rate, regular rhythm, S1S2 intact, no murmurs rubs or gallops; equal radial pulses GI: abdomen soft, non-tender, non-distended; no palpable mass or hepatosplenomegaly Skin: no lesions, rashes or trauma appreciated Neuro: AAOx3, normal speech, moving all extremities Extremities: No peripheral edema Psych: Appropriate mood and affect Course Vital Signs Vital signs: Vital Signs Temperature 36.8 C 02/22/22 18:47 Pulse 87 02/22/22 18:47 Respiratory Rate 20 02/22/22 18:47 Blood Pressure 98/61 L 02/22/22 18:47 Pulse Oximetry 99 02/22/22 18:47 Temperature 36.8 C 02/22/22 18:47 Temperature Source Temporal Artery Scan 02/22/22 18:47 Pulse 87 02/22/22 18:47 Respiratory Rate 20 02/22/22 18:47 Respiratory Effort 02/22/22 18:53 Blood Pressure 98/61 L 02/22/22 18:47 Blood Pressure Position Supine 02/22/22 18:47 Pulse Oximetry 99 02/22/22 18:47 Oxygen Delivery Method Room Air 02/22/22 18:47 Oxygen Flow Rate 0 02/22/22 18:47 Pain Level 4 02/22/22 18:47
[2022-02-22] MEDS: Normal Saline 1,000 ML 1000 ML IV (19:10)
[2022-02-22 19:13] LABS: BE (Venous) -7 mmol/L (-2-3); HCO3 (Venous) 19 mmol/L (23-28); O2 Sat (Venous) 74 %; TCO2 (Venous) 18 mmol/L (24-29); pCO2 (Venous) 35 mmHg (41-51); pH (Venous) 7.34 (7.31-7.41); pO2 (Venous) 40 mmHg
[2022-02-22 19:14] LABS: Abs Immature Grans 0.01 10^3/uL (0.0-0.06); Absolute Basophil Count 0.01 10^3/uL (0.0-0.2); Absolute Eosinophil Count 0.07 10^3/uL (0.0-0.7); Absolute Lymphocyte Count 1.15 10^3/uL (1.2-3.4); Absolute Monocyte Count 0.38 10^3/uL (0.1-0.8); Absolute Neutrophil Count 1.72 10^3/uL (1.2-6.7); Basophils % 0.3; Eosinophils % 2.1; HCT 24.1 % (36.0-46.0); HGB 8.2 g/dL (11.2-15.7); Immature Grans % 0.3; Lymphocytes % 34.4; MCH 31.3 pg (27.0-33.0); MCV 92 fL (80-95); MPV 9.5 fL (8.0-11.0); Monocytes % 11.4; Neutrophils % 51.5; Platelet Count 126 10^3/uL (130-400); RBC 2.62 10^6/uL (3.93-5.22); RDW 12.1 % (11.7-14.6); RDW-SD 41.1 fL; WBC 3.34 10^3/uL (4.4-10.8)
[2022-02-22] MEDS: Ondansetron 4 MG/2 ML VIAL IVP (19:16)
[2022-02-22 19:27] LABS: INR 1.4 (0.9-1.1); PTT Activated 30.2 sec (21.0-27.5); Prothrombin Time 13.8 sec (9.3-11.0)
[2022-02-22 19:31] LABS: Bilirubin Negative (Negative); Blood Negative (Negative); Clarity Clear (Clear); Glucose Negative (Negative); Ketones Negative (Negative); Leukocyte Esterase Trace (Negative); Nitrite Negative (Negative); Specific Gravity 1.015 (1.005-1.025); Urobilinogen 0.2 EU/dL (Up TO 0.2)
[2022-02-22 19:39] LABS: ALT 28 U/L (14-59); AST 19 U/L (15-37); Albumin 2.2 g/dL (3.4-5.0); Alkaline Phosphatase 54 U/L (46-116); Anion Gap 6.1 mmol/L (3-11); BUN 11 mg/dL (7-18); Bilirubin, Total 0.4 mg/dL (0.2-1.0); CO2 21.9 mmol/L (21.0-32.0); CREATININE 0.5 mg/dL (0.55-1.02); Chloride 119 mmol/L (98-107); Glucose 107 mg/dL (74-106); NT-proBNP 58 pg/mL (<300); Sodium 147 mmol/L (136-145); TSH (W/Ref FT4) 0.42 uIU/mL (0.36-3.74); Total Protein 4.3 g/dL (6.4-8.2); Troponin I < 50 ng/L (<or=60)
[2022-02-22 19:41] LABS: Calcium 5.7 mg/dL (8.5-10.1); Potassium 2.4 mmol/L (3.5-5.1)
[2022-02-22 19:41] LABS: Bacteria Rare HPF (Negative); C & S Indicated? Yes; Crystals Negative HPF (Negative); Epithelial Cells Few HPF (Negative); Mucus Negative (Negative); RBC 0-2 HPF (0-2)
--- NOTE | 2022-02-22 19:51 | DI.VRAD_ITS ---
PROCEDURE INFORMATION: Exam: XR Chest Exam date and time: 02/22/2022 7:00 PM Age: 46 years old Clinical indication: Other: Chest pain; Patient HX: Cad w/ stents TECHNIQUE: Imaging protocol: Radiologic exam of the chest. Views: 1 view. COMPARISON: XR PORTABLE CHEST AP 01/12/2022 6:30 PM FINDINGS: Lungs: Unremarkable. No consolidation. Pleural spaces: Unremarkable. No pleural effusion. No pneumothorax. Heart/Mediastinum: Unremarkable. No cardiomegaly. Bones/joints: Unremarkable. IMPRESSION: No acute findings. Dictated and Authenticated by: Jose Rios MD. Ordering:PNOEL Pedro MD
[2022-02-22 20:07] LABS: Abs Immature Grans 0.02 10^3/uL (0.0-0.06); Absolute Basophil Count 0.02 10^3/uL (0.0-0.2); Absolute Lymphocyte Count 1.66 10^3/uL (1.2-3.4); Absolute Monocyte Count 0.67 10^3/uL (0.1-0.8); Absolute Neutrophil Count 2.49 10^3/uL (1.2-6.7); Basophils % 0.4; HCT 33.1 % (36.0-46.0); Immature Grans % 0.4; Lymphocytes % 33.5; MCH 31.9 pg (27.0-33.0); MCHC 34.7 % (32.0-36.0); MCV 92 fL (80-95); MPV 9.8 fL (8.0-11.0); Monocytes % 13.5; Neutrophils % 50.2; Platelet Count 170 10^3/uL (130-400); RBC 3.61 10^6/uL (3.93-5.22); RDW 12.1 % (11.7-14.6); WBC 4.96 10^3/uL (4.4-10.8)
[2022-02-22 20:11] LABS: HGB 11.5 g/dL (11.2-15.7)
[2022-02-22 20:24] LABS: ALT 42 U/L (14-59); AST 26 U/L (15-37); Albumin 3.3 g/dL (3.4-5.0); Alkaline Phosphatase 83 U/L (46-116); Anion Gap 1.2 mmol/L (3-11); BUN 15 mg/dL (7-18); Bilirubin, Total 0.5 mg/dL (0.2-1.0); CO2 31.8 mmol/L (21.0-32.0); CREATININE 0.8 mg/dL (0.55-1.02); Calcium 8.7 mg/dL (8.5-10.1); Chloride 108 mmol/L (98-107); Glucose 153 mg/dL (74-106); Potassium 4.1 mmol/L (3.5-5.1); Sodium 141 mmol/L (136-145); Total Protein 6.3 g/dL (6.4-8.2); Troponin I < 50 ng/L (<or=60)
--- NOTE | 2022-02-22 21:44 | W.PM.HP.N ---
Date of service: 02/22/22 Time of Service: 21:45 Assessment and Plan Assessment and plan (1) Atypical chest pain: Start date: 02/22/22 Status: Acute Assessment and plan: This is a 46-year-old lady who recently had inferior STEMI status post stenting of RCA with 2 stents presenting with chest pain which came on after eating with some slight nausea and vomiting and most likely is esophageal. This pain did not respond to nitroglycerin sublingually did not appear to be equipment to angina or ACS. Troponins were negative. Labs are essentially stable with some delusional results prior to redraw and the patient was comfortable without chest pain at the time examined. She does have type 1 diabetes with episodes of hypoglycemia in the past and has risk for advanced early coronary artery disease as she appears to have. She does have some less than 80% stenosis of the left coronary artery system with diffuse disease with review of cardiac catheterization by ED physician. She will be admitted for trending troponins and cardiac monitoring and if stable will be discharged to follow-up with cardiology as scheduled. (2) CAD (coronary artery disease), [place] coronary artery: Status: Chronic Assessment and plan: Patient does have diffuse disease on recent cardiac catheterization with lesion on the left system not stented but she does not appear to have any acute ischemic changes. Trend troponins and follow-up with cardiology as scheduled. (3) Diabetes: Status: Chronic Assessment and plan: IDDM since age of 4 with patient having problems with hypoglycemia. Her basal insulin will be held and we will cover glucometer milligrams before meals and at bedtime while hospitalized. History of Present Illness History of Present Illness Chief Complaint: Chest Pain Narrative: This is a 48-year-old female patient with recent inferior STEMI and stents placed in [place] [facility] to the ED with chest pain and fatigue associate with slight nausea. She does have insulin-dependent diabetes mellitus since she was 4 years old with episodes of hypoglycemia being problematic and not having hyperglycemia as an issue. In the ED she did receive a full dose aspirin and nitroglycerin sublingually which did not help her chest pain when evaluated by EMS in the field. Her chest pain did slowly improve and the patient did receive fluids with monitoring with no acute EKG changes and normal troponin. Her pain came on at rest. The pain was also associated with nausea and vomiting after she ate and may be esophageal. The patient was noted to be slightly anemic status post procedure recently and has not had any overt bleeding. She did have a history of occasional red urine in the last couple weeks and a urinalysis will be evaluated. Labs will also be followed more closely with patient having possible dilutional lab in the ED when hemoglobin appeared to drop below 10 g/dL with some electrolyte abnormalities. At the time I saw the patient she was having no discomfort and appeared to be a fair historian though appears to have slowed mentation which may be chronic. Review of Systems Narrative: 13 point review of systems otherwise unrevealing or stable. Patient has had no edema or weight change. PFSH All Active Problems (Updated 02/23/22 @ 11:06 by Ritesh Feldman) CAD (coronary artery disease), [place] coronary artery (Chronic) Atypical chest pain (Acute) Chest pain (Acute) Nausea (Acute) Cancer of cervix (Acute) Neurogenic bladder (Acute) Vitamin D deficiency (Acute) History of deep vein thrombophlebitis of lower extremity (Acute) Neuropathy (Acute) Hyperkalemia (Acute) Chronic kidney disease, stage I (Acute) Hearing loss (Acute) Blind right eye (Acute) Visual loss (Acute) Acute pain in female pelvis (Acute) Asthma (Chronic) GERD (gastroesophageal reflux disease) (Chronic) Cellulitis of foot (Acute) Elevated troponin (Acute) Diabetes (Chronic) Social History Smoking/Tobacco Use Status: Never Smoking risk assessment performed?: Yes Alcohol Intake: never Drug use: Never Substance use type: does not use Seatbelt use: always Do you feel safe at home: Yes Do you feel safe in your relationship?: Yes Female Reproductive History Menstrual Menopause type: surgical History History 14 Para Hx # Term Pregnancies Multiple births Hx # Pregnancies 1 Ectopic pregnancies AB induced Hx Number of Living Children AB spontaneous Meds Allergies and Home Medications Allergies Allergy/AdvReac Type Severity Reaction Status Date / Time No Known Allergies Allergy Unverified 02/22/22 22:28 Home Medications Medication Instructions Recorded Confirmed Type cholecalciferol (vitamin D3) 25 25 mcg PO DAILY 01/12/22 02/22/22 History mcg (1,000 unit) tablet clopidogrel 75 mg tablet (Plavix) 75 mg PO DAILY 01/12/22 02/22/22 History metoprolol succinate 50 mg 50 mg PO DAILY 01/12/22 02/22/22 History tablet,extended release 24 hr acetone (urine) test (Ketostix 01/29/22 History strips) albuterol sulfate 2.5 mg/3 mL 2.5 mg inhalation Q8H PRN 01/29/22 02/22/22 History (0.083 %) solution for nebulization albuterol sulfate 90 mcg/actuation 2 puff inhalation Q6H PRN 01/29/22 02/22/22 History aerosol inhaler (ProAir HFA) aspirin 81 mg chewable tablet 81 mg PO DAILY 01/29/22 02/22/22 History (Children's Aspirin) glucagon 1 mg injection kit mg subcut PRN 01/29/22 History atorvastatin 80 mg tablet 80 mg PO DAILY 02/22/22 02/22/22 History insulin aspart U-100 100 unit/mL device subcut 02/22/22 02/22/22 History (3 mL) subcutaneous pen (Novolog Flexpen U-100 Insulin aspart) insulin glargine 100 unit/mL (3 20 unit subcut DAILY 02/22/22 02/22/22 History mL) subcutaneous pen (Basaglar KwikPen U-100 Insulin) pantoprazole 40 mg tablet,delayed 40 mg PO DAILY 02/22/22 02/22/22 History release Exam Narrative Exam Narrative: General: Patient appears older than stated age, dysmorphic features over face, alert and oriented to person, place and time and in no acute distress. HEENT: Normocephalic, dysmorphic facial features as mentioned, eyes with pupils equal and reactive to light symmetrically, extraocular movement tact and sclera anicteric, oropharynx with moist mucosa and poor dentition. Neck: Supple without JVD. No palpable thyromegaly. Back: Stooped posture without CVA tenderness. Lungs: Clear to auscultation and percussion. Heart: Regular rate and rhythm with no murmurs gallops appreciated. Breast: Exam deferred. Abdomen: Normal contour, soft and nontender to palpation with no palpable hepatosplenomegaly. Genitalia/rectal: Exam deferred. Extremity: Without clubbing, cyanosis or pitting edema. Peripheral pulses intact. Joints without swelling and fair range of motion. Skin: Pale, warm and dry. Neuro: Cranial nerves II through XII gross intact, no focalizing motor deficits. No tremor. Sensory testing not performed. Psych: Slightly flattened affect but good eye contact. Mood normal. No abnormal thought processes. Remote and recent memory grossly intact. Results Imaging Imaging Studies: EXAM:? XR PORTABLE CHEST AP CLINICAL HISTORY:? chest pain, CAD with stents TECHNIQUE:? 2D digital imaging was performed of the chest. One image was obtained.? An AP view was obtained. COMPARISON:? CR,XR XR PORTABLE CHEST AP from 01/12/2022 FINDINGS: MEDIASTINUM: Normal.? HEART: Normal. PULMONARY VASCULATURE: Normal. LUNGS: Clear.? PLEURAL SPACE: No pleural effusion or pneumothorax. BONE:Within normal limits for the patient's age. OTHER FINDINGS:Normal.? IMPRESSION: No acute pulmonary findings. Labs Result diagrams: 02/23/22 05:45 02/23/22 05:45 Labs: Laboratory Results - last 24 hr 02/22/22 02/22/22 02/22/22 19:05 19:05 19:05 WBC 3.34 L RBC 2.62 L Hgb 8.2 L Hct 24.1 L MCV 92 MCH 31.3 MCHC 34.0 RDW 12.1 Plt Count 126 L MPV 9.5 Immature Gran % 0.3 Neutrophils % 51.5 Lymphocytes % 34.4 Monocytes % 11.4 Eosinophils % 2.1 Basophils % 0.3 Nucleated RBC % 0.0 Absolute Neutrophils 1.72 Absolute Lymphocytes 1.15 L Absolute Monocytes 0.38 Absolute Eosinophils 0.07 Absolute Basophils 0.01 PT 13.8 H INR 1.4 H APTT 30.2 H VBG pH VBG pCO2 VBG pO2 VBG HCO3 VBG Total CO2 VBG O2 Saturation VBG Base Excess Sodium 147 H Potassium 2.4 L* Chloride 119 H Carbon Dioxide 21.9 Anion Gap 6.1 BUN 11 Creatinine 0.5 L Estimated GFR/1.73 m2 >= 60.00 Glucose 107 H Calcium 5.7 L* Total Bilirubin 0.4 AST 19 ALT 28 Alkaline Phosphatase 54 Troponin I < 50 NT-Pro-B Natriuret Pep 58 Total Protein 4.3 L Albumin 2.2 L TSH 0.42 Urine Color Urine Clarity Urine pH Ur Specific [place] Urine Protein Urine Ketones Urine Blood Urine Nitrite Urine Bilirubin Urine Urobilinogen Ur Leukocyte Esterase Urine RBC Urine WBC Ur Epithelial Cells Urine Crystals Urine Bacteria Urine Mucus Ur Culture Indicated? Urine Glucose 02/22/22 02/22/22 02/22/22 19:05 19:27 20:04 WBC RBC Hgb Hct MCV MCH MCHC RDW Plt Count MPV Immature Gran % Neutrophils % Lymphocytes % Monocytes % Eosinophils % Basophils % Nucleated RBC % Absolute Neutrophils Absolute Lymphocytes Absolute Monocytes Absolute Eosinophils Absolute Basophils PT INR APTT VBG pH 7.34 VBG pCO2 35 L VBG pO2 40 VBG HCO3 19 L VBG Total CO2 18 L VBG O2 Saturation 74 VBG Base Excess -7 L Sodium 141 Potassium 4.1 D Chloride 108 H Carbon Dioxide 31.8 Anion Gap 1.2 L BUN 15 Creatinine 0.8 Estimated GFR/1.73 m2 >= 60.00 Glucose 153 H Calcium 8.7 Total Bilirubin 0.5 AST 26 ALT 42 Alkaline Phosphatase 83 Troponin I < 50 NT-Pro-B Natriuret Pep Total Protein 6.3 L Albumin 3.3 L TSH Urine Color Yellow Urine Clarity Clear Urine pH 7.0 Ur Specific [place] 1.015 Urine Protein Negative Urine Ketones Negative Urine Blood Negative Urine Nitrite Negative Urine Bilirubin Negative Urine Urobilinogen 0.2 Ur Leukocyte Esterase Trace H Urine RBC 0-2 Urine WBC 5-10 Ur Epithelial Cells Few Urine Crystals Negative Urine Bacteria Rare Urine Mucus Negative Ur Culture Indicated? Yes Urine Glucose Negative 02/22/22 20:04 WBC 4.96 RBC 3.61 L Hgb 11.5 D Hct 33.1 L MCV 92 MCH 31.9 MCHC 34.7 RDW 12.1 Plt Count 170 MPV 9.8 Immature Gran % 0.4 Neutrophils % 50.2 Lymphocytes % 33.5 Monocytes % 13.5 Eosinophils % 2.0 Basophils % 0.4 Nucleated RBC % 0.0 Absolute Neutrophils 2.49 Absolute Lymphocytes 1.66 Absolute Monocytes 0.67 Absolute Eosinophils 0.10 Absolute Basophils 0.02 PT INR APTT VBG pH VBG pCO2 VBG pO2 VBG HCO3 VBG Total CO2 VBG O2 Saturation VBG Base Excess Sodium Potassium Chloride Carbon Dioxide Anion Gap BUN Creatinine Estimated GFR/1.73 m2 Glucose Calcium Total Bilirubin AST ALT Alkaline Phosphatase Troponin I NT-Pro-B Natriuret Pep Total Protein Albumin TSH Urine Color Urine Clarity Urine pH Ur Specific [place] Urine Protein Urine Ketones Urine Blood Urine Nitrite Urine Bilirubin Urine Urobilinogen Ur Leukocyte Esterase Urine RBC Urine WBC Ur Epithelial Cells Urine Crystals Urine Bacteria Urine Mucus Ur Culture Indicated? Urine Glucose Last Vital Signs Temp 36.8 C 02/22/22 18:47 Pulse 72 02/22/22 21:31 Resp 18 02/22/22 21:31 BP 102/50 L 02/22/22 21:31 Pulse Ox 100 02/22/22 21:31
[2022-02-22 22:05] LABS: Source Nasal/Nares
[2022-02-22 22:46] LABS: Troponin I < 50 ng/L (<or=60)
[2022-02-22 22:55] LABS: COVID-19 PCR Negative (Negative)
[2022-02-22] MEDS: Heparin 5,000 UNITS/ML VIAL 5000 UNITS SC (23:26)
[2022-02-22] MEDS: Insulin Aspart 300 UNITS/3 ML PEN SC (23:26)
[2022-02-23 03:01] VITALS: BP 108/69; PULSE 76; RESP 18; TEMP 35.5; O2SAT 100
--- NOTE | 2022-02-23 03:18 | W.EDPROG ---
Date of service: 02/23/22 Time of Service: 03:18 Medical Decision Making Patient was signed out to me by my colleague Dr. Jaymie Rivera. Please refer to his HPI, physical exam and assessment plan. Laboratory work-up is returned notably unremarkable. Initial electrolytes and labs were notably off, however the blood was drawn proximal to a flowing saline infusion. Repeat labs were normal though. Troponin normal. EKG is unchanged from prior, although it does look atypical in general. Patient remains chest pain-free, and she feels well. Symptoms at this time are inconsistent with ACS. However because of her risk factors, and recent history I do feel that she would benefit from an extended troponin rule out. Discussed case with the hospitalist Dr. Feldman, he agrees with the assessment and plan. I have extensively reviewed the treatment plan with the patient. I have addressed all patient concerns at this time. I have also discussed the plan with the admitting physician and they agree with the current assessment and plan and have agreed to assume responsibility for the patient. All parties demonstrate verbal understanding and agreement with our assessment and plan at this time. The documentation in this chart was dictated using [employer] dictation software. Please excuse any dictation errors. Sign Out Sign Out Data: Sign Out Comment: pending repeat labs, two troponins, reassessment for disposition Last updated by Willis Crook MD at 02/22/22 20:09 Discharge Plan Disposition Patient Disposition: [facility] INPATIENT Condition: Stable Discharge Details Clinical Impression: Chest pain, Nausea Admit Date/Time: 02/22/22 21:10 Admit Provider: Ritesh Feldman Attending Provider: Ritesh Feldman Primary Care Provider: Jose Pittman ED Provider: Piotr Savage Discharge Data Discharge Date/Time-TO BE ENTERED AT DEPARTURE: 02/22/22 22:36
[2022-02-23 05:59] LABS: Abs Immature Grans 0.01 10^3/uL (0.0-0.06); Absolute Basophil Count 0.03 10^3/uL (0.0-0.2); Absolute Eosinophil Count 0.09 10^3/uL (0.0-0.7); Absolute Lymphocyte Count 1.65 10^3/uL (1.2-3.4); Absolute Monocyte Count 0.59 10^3/uL (0.1-0.8); Absolute Neutrophil Count 2.35 10^3/uL (1.2-6.7); Basophils % 0.6; Eosinophils % 1.9; HCT 36.9 % (36.0-46.0); HGB 12.4 g/dL (11.2-15.7); Immature Grans % 0.2; MCH 30.9 pg (27.0-33.0); MCHC 33.6 % (32.0-36.0); MCV 92 fL (80-95); MPV 9.9 fL (8.0-11.0); Monocytes % 12.5; Neutrophils % 49.8; Platelet Count 190 10^3/uL (130-400); RBC 4.01 10^6/uL (3.93-5.22); RDW 11.9 % (11.7-14.6); RDW-SD 40.5 fL; WBC 4.72 10^3/uL (4.4-10.8)
[2022-02-23 06:08] LABS: ALT 43 U/L (14-59); AST 27 U/L (15-37); Albumin 3.5 g/dL (3.4-5.0); Alkaline Phosphatase 81 U/L (46-116); Anion Gap 5.8 mmol/L (3-11); BUN 13 mg/dL (7-18); Bilirubin, Total 0.6 mg/dL (0.2-1.0); CO2 31.2 mmol/L (21.0-32.0); CREATININE 0.7 mg/dL (0.55-1.02); Calcium 9.1 mg/dL (8.5-10.1); Chloride 107 mmol/L (98-107); Glucose 50 mg/dL (74-106); Magnesium 1.9 mg/dL (1.8-2.4); Potassium 4.2 mmol/L (3.5-5.1); Sodium 144 mmol/L (136-145); Total Protein 6.9 g/dL (6.4-8.2)
[2022-02-23 06:10] LABS: Troponin I < 50 ng/L (<or=60)
[2022-02-23 07:02] VITALS: PULSE 68
--- NOTE | 2022-02-23 07:26 | NUR.NOTE ---
Informed that pt glucose is 50 according to lab draws, 15g of glucose given. fingerstick to be rechecked in 15mins. discharge coordinator and oncoming nurse (Paula) informed.
[2022-02-23 07:34] VITALS: BP 117/70; PULSE 73; RESP 16; TEMP 35.4; O2SAT 100
[2022-02-23] MEDS: Heparin 5,000 UNITS/ML VIAL 5000 UNITS SC (07:44)
[2022-02-23] MEDS: Cholecalciferol (Vitamin D3) 1,000 UNIT TAB 1000 UNITS PO (07:45)
[2022-02-23] MEDS: Pantoprazole 40 MG TABCR PO (07:45)
[2022-02-23] MEDS: Clopidogrel 75 MG TAB PO (07:45)
[2022-02-23] MEDS: Metoprolol CR 50 MG TABCR PO (07:45)
[2022-02-23] MEDS: Aspirin 81 MG CHEW PO (07:45)
[2022-02-23] MEDS: Insulin Glargine 300 UNITS/3 ML PEN 10 UNITS SC (08:20)
--- NOTE | 2022-02-23 09:13 | INITIAL_ITS ---
- If Service Date Differs Date of service: 02/23/22 Time of Service: 09:13 Care Management Initial Assess REASON FOR HOSPITALIZATION:: Atypical CP, CAD with recent STEMI PAST MEDICAL HISTORY/PAST SURGICAL HISTORY:: 46-year-old female history of diabetes CKD, prior coronary artery disease with stenting to the right side of the heart presents with chest pain associated with fatigue and mild nausea. Fingerstick in the field in the 200s. CAD, Cancer of cervix, neurogenic bladder, vitamin D deficiency, neuropathy, CKD Stage 1, Diabetes, GERD, Asthma, blind right eye, hearing loss PREVIOUS FUNCTIONAL STATUS/SOCIAL/FAMILY SUPPORTS:: Resides in [facility] with significant other, [place]. CURRENT FUNCTIONAL STATUS:: Kailey is up independently, ambulating in her room; preparing for discharge. ADVANCE DIRECTIVES:: None on file. Has patient been provided with info about the portal/API?: Yes Did the patient sign up for the portal?: No CODE STATUS:: Full Code INSURANCE COVERAGE / FINANCIAL ISSUES:: Medicare. Medicaid PRIMARY CARE PHYSICIAN:: Jose Pittman POTENTIAL DISCHARGE NEEDS:: Follow up appointments. PATIENT/FAMILY EDUCATION NEEDS:: Review discharge instructions, discuss Ask Me Three. ANTICIPATED BARRIERS TO DISCHARGE:: None identified. TRANSPORTATION:: Via private vehicle with family or RCT. PLAN:: Kailey will return home when ready per MD. She will follow up with her PCP and plan of care as prescribed. She will transport via private vehicle with family.
--- NOTE | 2022-02-23 09:54 | PGE_ITS ---
Date of Service Date of service: 02/23/22 Time of Service: 09:55 Assessment and Plan Assessment and plan (1) Atypical chest pain: Status: Acute Assessment and plan: Patient is ruled out for an acute ischemic event. Given her history of residual coronary atherosclerosis that was not stented she may need a stress test to see if her residual disease as a cause of her chest pain and may require further intervention. We will walk her around the hospital this morning if she has no exertional chest pain I think she can be discharged home. I had considered putting her on low- dose Imdur for her residual coronary artery disease however she came in with a low blood pressure to begin with I am concerned that the addition of another vasodilator may contribute to her orthostasis. However I will give her nitroglycerin sublingual tablets to take home in the event that she has further ischemic pain with the appropriate warnings for watching for side effects. Professional time spent interviewing and examining patient, discussion of goals of care with hospital team (care management, nursing and consulting professionals) was 30 minutes. (2) CAD (coronary artery disease), [place] coronary artery: Status: Acute Assessment and plan: Continue beta-blockers and dual antiplatelet treatment as well as atorvastatin high-dose. (3) Diabetes: Status: Chronic Assessment and plan: Continue basal bolus insulin coverage. Subjective Subjective Interval history since last seen: 46-year-old female with type 2 diabetes mellitus and coronary artery disease who had an inferior STEMI January 03, 2022 sent to [facility] [place] where she underwent cardiac catheterization with 2 stents of her RCA. Reportedly she has some residual disease but has been doing fine after she left [facility] [place] although she has exertional fatigue. Is currently on dual antiplatelet therapy including aspirin Plavix and atorvastatin as well as Toprol-XL. She has no nitroglycerin at home. She presented emergency department yesterday with sharp stabbing substernal chest pain. Work-up included CBC that showed no anemia, CMP was unremarkable, serial troponins x4 sets yesterday were all normal including the repeat one this morning. Patient states that EMS was called and she was given 3 baby aspirin and sublingual nitroglycerin with subsequent improvement in her chest discomfort. On arrival to the emergency department she was noted to have some mildly depressed blood pressures with systolic pressures in the mid to high 90s. She was given a fluid bolus and ever since then her blood pressures been fine. She had no syncopal spell with her current episode although her IA 6 weeks ago was associated with syncope. Patient has been pain-free since she has been admitted. She has a scheduled follow-up with Dr. Diaz on March 18, 2022. Exam Narrative Exam Narrative: Middle aged white female who is alert and oriented x4 Lungs: clear Heart: RRR w/out murmur or rub or gallops Abdomen: soft, nontender, nondistended Extremities: no edema. Objective Last Vital Signs Temp 35.4 C L 02/23/22 07:34 Pulse 73 02/23/22 07:34 Resp 16 02/23/22 07:34 BP 117/70 02/23/22 07:34 Pulse Ox 100 02/23/22 07:34 Laboratory Results - last 24 hr 02/22/22 02/22/22 02/22/22 19:05 19:05 19:05 WBC 3.34 L RBC 2.62 L Hgb 8.2 L Hct 24.1 L MCV 92 MCH 31.3 MCHC 34.0 RDW 12.1 Plt Count 126 L MPV 9.5 Immature Gran % 0.3 Neutrophils % 51.5 Lymphocytes % 34.4 Monocytes % 11.4 Eosinophils % 2.1 Basophils % 0.3 Nucleated RBC % 0.0 Absolute Neutrophils 1.72 Absolute Lymphocytes 1.15 L Absolute Monocytes 0.38 Absolute Eosinophils 0.07 Absolute Basophils 0.01 PT 13.8 H INR 1.4 H APTT 30.2 H VBG pH VBG pCO2 VBG pO2 VBG HCO3 VBG Total CO2 VBG O2 Saturation VBG Base Excess Sodium 147 H Potassium 2.4 L* Chloride 119 H Carbon Dioxide 21.9 Anion Gap 6.1 BUN 11 Creatinine 0.5 L Estimated GFR/1.73 m2 >= 60.00 Glucose 107 H Calcium 5.7 L* Magnesium Total Bilirubin 0.4 AST 19 ALT 28 Alkaline Phosphatase 54 Troponin I < 50 NT-Pro-B Natriuret Pep 58 Total Protein 4.3 L Albumin 2.2 L TSH 0.42 Urine Color Urine Clarity Urine pH Ur Specific [place] Urine Protein Urine Ketones Urine Blood Urine Nitrite Urine Bilirubin Urine Urobilinogen Ur Leukocyte Esterase Urine RBC Urine WBC Ur Epithelial Cells Urine Crystals Urine Bacteria Urine Mucus Ur Culture Indicated? Urine Glucose COVID-19 Source SARS-CoV-2 (PCR) 02/22/22 02/22/22 02/22/22 19:05 19:27 20:04 WBC RBC Hgb Hct MCV MCH MCHC RDW Plt Count MPV Immature Gran % Neutrophils % Lymphocytes % Monocytes % Eosinophils % Basophils % Nucleated RBC % Absolute Neutrophils Absolute Lymphocytes Absolute Monocytes Absolute Eosinophils Absolute Basophils PT INR APTT VBG pH 7.34 VBG pCO2 35 L VBG pO2 40 VBG HCO3 19 L VBG Total CO2 18 L VBG O2 Saturation 74 VBG Base Excess -7 L Sodium 141 Potassium 4.1 D Chloride 108 H Carbon Dioxide 31.8 Anion Gap 1.2 L BUN 15 Creatinine 0.8 Estimated GFR/1.73 m2 >= 60.00 Glucose 153 H Calcium 8.7 Magnesium Total Bilirubin 0.5 AST 26 ALT 42 Alkaline Phosphatase 83 Troponin I < 50 NT-Pro-B Natriuret Pep Total Protein 6.3 L Albumin 3.3 L TSH Urine Color Yellow Urine Clarity Clear Urine pH 7.0 Ur Specific [place] 1.015 Urine Protein Negative Urine Ketones Negative Urine Blood Negative Urine Nitrite Negative Urine Bilirubin Negative Urine Urobilinogen 0.2 Ur Leukocyte Esterase Trace H Urine RBC 0-2 Urine WBC 5-10 Ur Epithelial Cells Few Urine Crystals Negative Urine Bacteria Rare Urine Mucus Negative Ur Culture Indicated? Yes Urine Glucose Negative COVID-19 Source SARS-CoV-2 (PCR) 02/22/22 02/22/22 02/22/22 20:04 21:52 22:00 WBC 4.96 RBC 3.61 L Hgb 11.5 D Hct 33.1 L MCV 92 MCH 31.9 MCHC 34.7 RDW 12.1 Plt Count 170 MPV 9.8 Immature Gran % 0.4 Neutrophils % 50.2 Lymphocytes % 33.5 Monocytes % 13.5 Eosinophils % 2.0 Basophils % 0.4 Nucleated RBC % 0.0 Absolute Neutrophils 2.49 Absolute Lymphocytes 1.66 Absolute Monocytes 0.67 Absolute Eosinophils 0.10 Absolute Basophils 0.02 PT INR APTT VBG pH VBG pCO2 VBG pO2 VBG HCO3 VBG Total CO2 VBG O2 Saturation VBG Base Excess Sodium Potassium Chloride Carbon Dioxide Anion Gap BUN Creatinine Estimated GFR/1.73 m2 Glucose Calcium Magnesium Total Bilirubin AST ALT Alkaline Phosphatase Troponin I Cancelled NT-Pro-B Natriuret Pep Total Protein Albumin TSH Urine Color Urine Clarity Urine pH Ur Specific [place] Urine Protein Urine Ketones Urine Blood Urine Nitrite Urine Bilirubin Urine Urobilinogen Ur Leukocyte Esterase Urine RBC Urine WBC Ur Epithelial Cells Urine Crystals Urine Bacteria Urine Mucus Ur Culture Indicated? Urine Glucose COVID-19 Source Nasal/Nares SARS-CoV-2 (PCR) Negative 02/22/22 02/23/22 02/23/22 22:30 05:45 05:45 WBC RBC Hgb Hct MCV MCH MCHC RDW Plt Count MPV Immature Gran % Neutrophils % Lymphocytes % Monocytes % Eosinophils % Basophils % Nucleated RBC % Absolute Neutrophils Absolute Lymphocytes Absolute Monocytes Absolute Eosinophils Absolute Basophils PT INR APTT VBG pH VBG pCO2 VBG pO2 VBG HCO3 VBG Total CO2 VBG O2 Saturation VBG Base Excess Sodium 144 Potassium 4.2 Chloride 107 Carbon Dioxide 31.2 Anion Gap 5.8 BUN 13 Creatinine 0.7 Estimated GFR/1.73 m2 >= 60.00 Glucose 50 L Calcium 9.1 Magnesium 1.9 Total Bilirubin 0.6 AST 27 ALT 43 Alkaline Phosphatase 81 Troponin I < 50 < 50 NT-Pro-B Natriuret Pep Total Protein 6.9 Albumin 3.5 TSH Urine Color Urine Clarity Urine pH Ur Specific [place] Urine Protein Urine Ketones Urine Blood Urine Nitrite Urine Bilirubin Urine Urobilinogen Ur Leukocyte Esterase Urine RBC Urine WBC Ur Epithelial Cells Urine Crystals Urine Bacteria Urine Mucus Ur Culture Indicated? Urine Glucose COVID-19 Source SARS-CoV-2 (PCR) 02/23/22 05:45 WBC 4.72 RBC 4.01 Hgb 12.4 Hct 36.9 MCV 92 MCH 30.9 MCHC 33.6 RDW 11.9 Plt Count 190 MPV 9.9 Immature Gran % 0.2 Neutrophils % 49.8 Lymphocytes % 35.0 Monocytes % 12.5 Eosinophils % 1.9 Basophils % 0.6 Nucleated RBC % 0.0 Absolute Neutrophils 2.35 Absolute Lymphocytes 1.65 Absolute Monocytes 0.59 Absolute Eosinophils 0.09 Absolute Basophils 0.03 PT INR APTT VBG pH VBG pCO2 VBG pO2 VBG HCO3 VBG Total CO2 VBG O2 Saturation VBG Base Excess Sodium Potassium Chloride Carbon Dioxide Anion Gap BUN Creatinine Estimated GFR/1.73 m2 Glucose Calcium Magnesium Total Bilirubin AST ALT Alkaline Phosphatase Troponin I NT-Pro-B Natriuret Pep Total Protein Albumin TSH Urine Color Urine Clarity Urine pH Ur Specific [place] Urine Protein Urine Ketones Urine Blood Urine Nitrite Urine Bilirubin Urine Urobilinogen Ur Leukocyte Esterase Urine RBC Urine WBC Ur Epithelial Cells Urine Crystals Urine Bacteria Urine Mucus Ur Culture Indicated? Urine Glucose COVID-19 Source SARS-CoV-2 (PCR) Reviewed Pertinent PMH: Yes Objective Narrative Objective Narrative: Serial ECGs performed last night demonstrated sinus rhythm at a rate from 73-96. She has evidence of a previous inferior IA with Q waves in limb leads II and III. She had no dynamic ST-T wave changes.
[2022-02-23 11:42] VITALS: BP 116/72; PULSE 67; RESP 14; TEMP 35.1; O2SAT 100
[2022-02-23] MEDS: Insulin Aspart 300 UNITS/3 ML PEN SC (11:48)
--- NOTE | 2022-02-23 13:45 | W.PM.DS.N ---
Date of service: 02/23/22 Time of Service: 13:45 DS: Diagnosis Discharge Diagnosis (1) Atypical chest pain: Status: Acute Asessment and Plan: Patient is a 48-year-old female with a history of recent inferior STEMI for which she received stents x2 to the RCA. [place] [facility] [place] now presents emergency department with chest pain and fatigue and slight nausea. Patient was treated with sublingual nitroglycerin by EMS which did not seem to substantially improve her pain. Pain was associate with nausea and vomiting after eating. Chest discomfort gradually resolved over time. By time she was admitted to the hospital she was pain-free. Serial troponins were obtained and came back normal. Initial troponin was taken at 1905 on 02/22/2022 and was less than 50 ng/L. Subsequent 1 was done an hour later at 2004 and was normal. 3 hours after admission she had her third troponin came back normal on the day of discharge her final troponin was also normal at less than 50 ng/L. Serial ECGs were performed and showed no ischemic changes. Chest x-ray was obtained on admission and showed no acute pulmonary pathology. On the day of discharge patient was ambulated several times around the nursing unit without exertional dyspnea or chest discomfort. Based on the atypical nature of her chest pain and normal troponins and serial EKGs not demonstrating acute ischemic or injury pattern and the fact that she was able to ambulate without reproduction of her symptoms gave us confidence that she can be discharged with close follow-up with her primary care provider and cardiology. An outpatient stress MPI was ordered for her to be done in the next 1 to 2 weeks. No new medications were ordered for other than she received a prescription for sublingual nitroglycerin which she had not received when she was discharged from [facility]. (2) CAD (coronary artery disease), [place] coronary artery: Status: Chronic Asessment and Plan: No change in her medical patient she can your aspirin 81 mg daily Plavix 75 g daily follow-up with Dr. Diaz as previously scheduled for 03/18/2022. Patient will undergo stress MPI in the next week. (3) Diabetes: Status: Chronic Asessment and Plan: No change in her insulin regimen. Discharge Plan Disposition Patient Disposition: HOME Condition: Improving Discharge Details Reason For Visit: Atypical chest pain,CAD w/recent STEMI Admit Date/Time: 02/22/22 21:10 Admit Provider: Ritesh Feldman Attending Provider: Ritesh Feldman Primary Care Provider: Jose Pittman Home Meds and New Rx's Prescriptions: New famotidine [Heartburn Relief (famotidine)] 20 mg tablet 20 mg PO QHS Qty: 30 0RF nitroglycerin 400 mcg/spray spray,non-aerosol 1 spray translingual Q5M PRNQty: 12 0RF Rx Instructions: one spray prn angina pain, do not exceed 3 doses per episode Continued albuterol sulfate 2.5 mg /3 mL (0.083 %) solution for nebulization 2.5 mg inhalation Q8H PRN (DME) Ketostix Strip See Rx Instructions .ROUTE Rx Instructions: As directed glucagon 1 mg kit subcut PRN aspirin [Children's Aspirin] 81 mg tablet,chewable 81 mg PO DAILY albuterol sulfate [ProAir HFA] 90 mcg/actuation HFA aerosol inhaler 2 puff inhalation Q6H PRN metoprolol succinate 50 mg tablet extended release 24 hr 50 mg PO DAILY Label Comments: Take 1 tablet by mouth once a day clopidogrel [Plavix] 75 mg tablet 75 mg PO DAILY Label Comments: Take 1 tablet by mouth once a day cholecalciferol (vitamin D3) 25 mcg (1,000 unit) tablet 25 mcg PO DAILY Label Comments: TAKE ONE-HALF TABLET BY MOUTH TWICE A DAY atorvastatin 80 mg tablet 80 mg PO DAILY Label Comments: Take 1 tablet by mouth every evening insulin glargine [Basaglar KwikPen U-100 Insulin] 100 unit/mL (3 mL) insulin pen 20 unit SUBCUT DAILY Label Comments: INJECT 22 UNITS UNDER THE SKIN EVERY MORNING insulin aspart U-100 [Novolog Flexpen U-100 Insulin] 100 unit/mL (3 mL) insulin pen SUBCUT Label Comments: INJECT BASED ON CARBS AT A RATION OF 1:10 GIVE AND CORRECT FOR BG >150 BASED ON ISF 1:25 Discontinued pantoprazole 40 mg tablet,delayed release (DR/EC) 40 mg PO DAILY Label Comments: TAKE ONE TABLET BY MOUTH EVERY DAY PRIOR TO DINNER Discharge Instructions Instructions: Nitroglycerin (By mouth), Angina (DC) Additional Instructions: Your pantoprazole (Protonix) is being replaced with Pepcid because Protonix can interfere with your Plavix (clopidogrel) which you need to keep your stents open. You should have a stress test in the next 1 to 2 weeks to assess for any residual ischemia which may indicate a need for further stenting. Keep you appointment w/ Dr. Diaz Stand Alone Forms: Nursing Discharge Form Referrals: [facility] diagnostic imaging [Other] (Office will call you with appointment) Jose Pittman [Primary Care Provider] - (call Mr. Pittman's office on Saturday 02/24 for follow up in the office in the next week) Danielle Diaz MD [ [facility] STAFF PHYSICIAN] - 03/18/22 (keep your previously scheduled appointment w/ Dr. Diaz) Activity:: Activity as Tolerated Equipment/Supplies:: No Equipment Needed Diet:: Carb Counting Discharge Orders Discharge Orders: Discharge Order (Routine); Ordered 02/23/22 Ordered By: Josh Garnica Other Ambulatory Orders: NM MPI rest & stress grp (Routine) Timeframe: 1 Week Location: None Selected Ordered By: Josh Garnica Discharge Data Discharge Date/Time-TO BE ENTERED AT DEPARTURE: 02/23/22 16:07 DS: Summary Time Spent with Patient providing and/or coordinating discharge services: Less than 30 minutes Specific discharge activities: Interview/exam of patient; review of discharge instructions, completion of prescriptions/discharge instructions; discussion w/ nursing and CM; documentation of hospital visit Status at Discharge Functional status at discharge: independent ambulation Overall status at discharge: patient is back to baseline Mental Status: mental status grossly normal Speech and Movement: speech and movement normal Mood: congruent mood Affect: normal affect Exam Narrative Exam Narrative: Middle aged white female who is alert and oriented x4 Lungs: clear Heart: RRR w/out murmur or rub or gallops Abdomen: soft, nontender, nondistended Extremities: no edema. Psych Mental Status: mental status grossly normal Speech and Movement: speech and movement normal Mood: congruent mood Affect: normal affect DS: Data Vitals/I&O Vitals and I&O: Vital Signs Temperature 35.1 C L 02/23/22 11:42 Temperature Source Tympanic 02/23/22 11:42 Pulse 67 02/23/22 11:42 Pulse Rhythm Regular 02/22/22 23:04 Pulse 71 02/22/22 22:20 Respiratory Rate 14 02/23/22 11:42 Respiratory Effort 02/22/22 23:04 Respiratory Depth Normal 02/22/22 23:04 Respiratory Pattern Normal 02/22/22 23:04 Blood Pressure 116/72 02/23/22 11:42 Blood Pressure Mean 66 02/22/22 22:16 Blood Pressure Position Supine 02/22/22 18:47 Pulse Oximetry 100 02/23/22 11:42 Oxygen Delivery Method Room Air 02/23/22 11:42 Oxygen Flow Rate 0 02/23/22 11:42 Pain Level 0 02/23/22 11:42 Comment 02/23/22 07:34 Intake & Output 02/22/22 02/23/22 02/23/22 23:59 11:59 23:59 Intake Total 1010 / 1010 550 / 550 Output Total 900 / 900 Balance 1010 / 1010 -350 / -350 Weight 63.957 kg 63.4 kg Intake: IV 1010 / 1010 Oral 550 / 550 Output: Urine 900 / 900 Other: Urine Color Yellow Urine Appearance Clear Urine Odor Normal Comment Void x1 in the toilet. Voiding Methods Toilet Data Completed and Pending Labs on day of discharge: Labs from last 24 hours 02/23/22 02/23/22 02/23/22 05:45 05:45 05:45 WBC 4.72 RBC 4.01 Hgb 12.4 Hct 36.9 MCV 92 MCH 30.9 MCHC 33.6 RDW 11.9 Plt Count 190 MPV 9.9 Immature Gran % 0.2 Neutrophils % 49.8 Lymphocytes % 35.0 Monocytes % 12.5 Eosinophils % 1.9 Basophils % 0.6 Nucleated RBC % 0.0 Absolute Neutrophils 2.35 Absolute Lymphocytes 1.65 Absolute Monocytes 0.59 Absolute Eosinophils 0.09 Absolute Basophils 0.03 PT INR APTT VBG pH VBG pCO2 VBG pO2 VBG HCO3 VBG Total CO2 VBG O2 Saturation VBG Base Excess Sodium 144 Potassium 4.2 Chloride 107 Carbon Dioxide 31.2 Anion Gap 5.8 BUN 13 Creatinine 0.7 Estimated GFR/1.73 m2 >= 60.00 Glucose 50 L Calcium 9.1 Magnesium 1.9 Total Bilirubin 0.6 AST 27 ALT 43 Alkaline Phosphatase 81 Troponin I < 50 NT-Pro-B Natriuret Pep Total Protein 6.9 Albumin 3.5 TSH Urine Color Urine Clarity Urine pH Ur Specific [place] Urine Protein Urine Ketones Urine Blood Urine Nitrite Urine Bilirubin Urine Urobilinogen Ur Leukocyte Esterase Urine RBC Urine WBC Ur Epithelial Cells Urine Crystals Urine Bacteria Urine Mucus Ur Culture Indicated? Urine Glucose COVID-19 Source SARS-CoV-2 (PCR) 02/22/22 02/22/22 02/22/22 22:30 22:00 21:52 WBC RBC Hgb Hct MCV MCH MCHC RDW Plt Count MPV Immature Gran % Neutrophils % Lymphocytes % Monocytes % Eosinophils % Basophils % Nucleated RBC % Absolute Neutrophils Absolute Lymphocytes Absolute Monocytes Absolute Eosinophils Absolute Basophils PT INR APTT VBG pH VBG pCO2 VBG pO2 VBG HCO3 VBG Total CO2 VBG O2 Saturation VBG Base Excess Sodium Potassium Chloride Carbon Dioxide Anion Gap BUN Creatinine Estimated GFR/1.73 m2 Glucose Calcium Magnesium Total Bilirubin AST ALT Alkaline Phosphatase Troponin I < 50 Cancelled NT-Pro-B Natriuret Pep Total Protein Albumin TSH Urine Color Urine Clarity Urine pH Ur Specific [place] Urine Protein Urine Ketones Urine Blood Urine Nitrite Urine Bilirubin Urine Urobilinogen Ur Leukocyte Esterase Urine RBC Urine WBC Ur Epithelial Cells Urine Crystals Urine Bacteria Urine Mucus Ur Culture Indicated? Urine Glucose COVID-19 Source Nasal/Nares SARS-CoV-2 (PCR) Negative 02/22/22 02/22/22 02/22/22 20:04 20:04 19:27 WBC 4.96 RBC 3.61 L Hgb 11.5 D Hct 33.1 L MCV 92 MCH 31.9 MCHC 34.7 RDW 12.1 Plt Count 170 MPV 9.8 Immature Gran % 0.4 Neutrophils % 50.2 Lymphocytes % 33.5 Monocytes % 13.5 Eosinophils % 2.0 Basophils % 0.4 Nucleated RBC % 0.0 Absolute Neutrophils 2.49 Absolute Lymphocytes 1.66 Absolute Monocytes 0.67 Absolute Eosinophils 0.10 Absolute Basophils 0.02 PT INR APTT VBG pH VBG pCO2 VBG pO2 VBG HCO3 VBG Total CO2 VBG O2 Saturation VBG Base Excess Sodium 141 Potassium 4.1 D Chloride 108 H Carbon Dioxide 31.8 Anion Gap 1.2 L BUN 15 Creatinine 0.8 Estimated GFR/1.73 m2 >= 60.00 Glucose 153 H Calcium 8.7 Magnesium Total Bilirubin 0.5 AST 26 ALT 42 Alkaline Phosphatase 83 Troponin I < 50 NT-Pro-B Natriuret Pep Total Protein 6.3 L Albumin 3.3 L TSH Urine Color Yellow Urine Clarity Clear Urine pH 7.0 Ur Specific [place] 1.015 Urine Protein Negative Urine Ketones Negative Urine Blood Negative Urine Nitrite Negative Urine Bilirubin Negative Urine Urobilinogen 0.2 Ur Leukocyte Esterase Trace H Urine RBC 0-2 Urine WBC 5-10 Ur Epithelial Cells Few Urine Crystals Negative Urine Bacteria Rare Urine Mucus Negative Ur Culture Indicated? Yes Urine Glucose Negative COVID-19 Source SARS-CoV-2 (PCR) 02/22/22 02/22/22 02/22/22 19:05 19:05 19:05 WBC 3.34 L RBC 2.62 L Hgb 8.2 L Hct 24.1 L MCV 92 MCH 31.3 MCHC 34.0 RDW 12.1 Plt Count 126 L MPV 9.5 Immature Gran % 0.3 Neutrophils % 51.5 Lymphocytes % 34.4 Monocytes % 11.4 Eosinophils % 2.1 Basophils % 0.3 Nucleated RBC % 0.0 Absolute Neutrophils 1.72 Absolute Lymphocytes 1.15 L Absolute Monocytes 0.38 Absolute Eosinophils 0.07 Absolute Basophils 0.01 PT 13.8 H INR 1.4 H APTT 30.2 H VBG pH 7.34 VBG pCO2 35 L VBG pO2 40 VBG HCO3 19 L VBG Total CO2 18 L VBG O2 Saturation 74 VBG Base Excess -7 L Sodium Potassium Chloride Carbon Dioxide Anion Gap BUN Creatinine Estimated GFR/1.73 m2 Glucose Calcium Magnesium Total Bilirubin AST ALT Alkaline Phosphatase Troponin I NT-Pro-B Natriuret Pep Total Protein Albumin TSH Urine Color Urine Clarity Urine pH Ur Specific [place] Urine Protein Urine Ketones Urine Blood Urine Nitrite Urine Bilirubin Urine Urobilinogen Ur Leukocyte Esterase Urine RBC Urine WBC Ur Epithelial Cells Urine Crystals Urine Bacteria Urine Mucus Ur Culture Indicated? Urine Glucose COVID-19 Source SARS-CoV-2 (PCR) 02/22/22 19:05 WBC RBC Hgb Hct MCV MCH MCHC RDW Plt Count MPV Immature Gran % Neutrophils % Lymphocytes % Monocytes % Eosinophils % Basophils % Nucleated RBC % Absolute Neutrophils Absolute Lymphocytes Absolute Monocytes Absolute Eosinophils Absolute Basophils PT INR APTT VBG pH VBG pCO2 VBG pO2 VBG HCO3 VBG Total CO2 VBG O2 Saturation VBG Base Excess Sodium 147 H Potassium 2.4 L* Chloride 119 H Carbon Dioxide 21.9 Anion Gap 6.1 BUN 11 Creatinine 0.5 L Estimated GFR/1.73 m2 >= 60.00 Glucose 107 H Calcium 5.7 L* Magnesium Total Bilirubin 0.4 AST 19 ALT 28 Alkaline Phosphatase 54 Troponin I < 50 NT-Pro-B Natriuret Pep 58 Total Protein 4.3 L Albumin 2.2 L TSH 0.42 Urine Color Urine Clarity Urine pH Ur Specific [place] Urine Protein Urine Ketones Urine Blood Urine Nitrite Urine Bilirubin Urine Urobilinogen Ur Leukocyte Esterase Urine RBC Urine WBC Ur Epithelial Cells Urine Crystals Urine Bacteria Urine Mucus Ur Culture Indicated? Urine Glucose COVID-19 Source SARS-CoV-2 (PCR) 02/22/22 19:27 Urine - Reflex from Ua Urine Culture - Pending Preliminary micro results at discharge 02/22/22 19:27 Urine Culture - Pending Urine - Reflex from [facility]a [facility] All Active Problems CAD (coronary artery disease), [place] coronary artery (Chronic) Atypical chest pain (Acute) Chest pain (Acute) Nausea (Acute) Cancer of cervix (Acute) Neurogenic bladder (Acute) Vitamin D deficiency (Acute) History of deep vein thrombophlebitis of lower extremity (Acute) Neuropathy (Acute) Hyperkalemia (Acute) Chronic kidney disease, stage I (Acute) Hearing loss (Acute) Blind right eye (Acute) Visual loss (Acute) Acute pain in female pelvis (Acute) Asthma (Chronic) GERD (gastroesophageal reflux disease) (Chronic) Cellulitis of foot (Acute) Elevated troponin (Acute) Diabetes (Chronic) Social History Smoking/Tobacco Use Status: Never Smoking risk assessment performed?: Yes Alcohol Intake: never Drug use: Never Substance use type: does not use Seatbelt use: always Do you feel safe at home: Yes Do you feel safe in your relationship?: Yes Female Reproductive History Menstrual Menopause type: surgical History History 13 Para Hx # Term Pregnancies Multiple births Hx # Pregnancies 1 Ectopic pregnancies AB induced Hx Number of Living Children AB spontaneous
--- NOTE | 2022-02-23 14:08 | PDOC.CMDIS ---
- If Service Date Differs Date of service: 02/23/22 Time of Service: 14:08 LACE Index Scoring Tool - Questions: Length of Stay (in days): 1 Acuity (Admit via E.D.?): Yes Comorbidities: Diabetes w/o Complication, Mild Liver/Renal Disease E.D. Visits: 3 - Answers: Total Score: 10 Risk of Readmission: High Risk Care Management Discharge Reason for Hospitalization: Atypical CP, CAD with recent STEMI Discharge Plan: Kailey will return home when ready per MD. She will follow up with her PCP and plan of care as prescribed. She will transport via private vehicle with family. Patient/Family Education Needs: Review discharge instructions, discuss Ask Me Three.
[2022-02-23 15:37] VITALS: BP 111/70; PULSE 68; RESP 16; TEMP 35.5; O2SAT 99
== END 2022-02-23 16:07 | disposition home or self-care (01) ==
LOC: ER 21:23 → MS 22:32
PROVIDERS: Emergency Medicine; Admitting Provider Family Medicine; Emergency Provider Student in an Organized Health Care Education/Training Program; PCP Physician Assistant; Visit Provider Family Medicine
DX: R07.89 Other chest pain (principal); I25.2 Old myocardial infarction; R53.83 Other fatigue; R11.2 Nausea with vomiting, unspecified; N31.9 Neuromuscular dysfunction of bladder, unspecified; E55.9 Vitamin D deficiency, unspecified; N18.1 Chronic kidney disease, stage 1; J45.909 Unspecified asthma, uncomplicated; K21.9 Gastro-esophageal reflux disease without esophagitis; E10.22 Type 1 diabetes mellitus with diabetic chronic kidney disease; E10.40 Type 1 diabetes mellitus with diabetic neuropathy, unspecified; Z86.718 Personal history of other venous thrombosis and embolism; Z95.5 Presence of coronary angioplasty implant and graft; Z79.899 Other long term (current) drug therapy; I95.9 Hypotension, unspecified; Z20.822 Contact with and (suspected) exposure to COVID-19; Z79.82 Long term (current) use of aspirin
CPT/HCPCS: 36415; 36416; 80053; 82805; 82962; 87635; 93005; 96361; 96372; 96374; 99285; 71045; 81003; 81015; 83735; 83880; 84443; 84484; 85025; 85610; 85730; 87086; 93010; 99217; 99220; G0378; J1644; J2405

== ENCOUNTER → 2022-03-03 00:48 | Outpatient (CLI) | payer MEDICARE, MEDICAID, SELFPAY ==
[2022-03-03] MEDS: Regadenoson 0.4 MG/5 ML SYR IVP (13:44)
--- NOTE | 2022-03-03 14:30 | DI.NM_ITS ---
APPROVED REPORT Exam: Pharmacologic Patient Location: Out-Patient Room/Bed: Stress Nurse: Chetna Villa RN Ordering Provider:SRIDEVI GONZALEZ, Contact Number: [phone] BMI: 22.75 Baseline Rhythm: Sinus Rhythm Indications: Chest pain, atherosclerotic heart disease Medical History Medical History: CAD, hyperlipidemia, brittle diabetes, asthma, hyperkalemia, neuropathy, gerd, legal ly blind Cardiac Medications: Nitroglycerin, metoprolol succinate, insulin, glargine, insulin aspartine, famot idine, clopidogrel, atorvastatin, aspirin, albuterol sulfate Allergies: NKA Cardiac Risk Factors: CAD, hyperlipidemia, asthma, diabetes, family hx Previous Cardiac Procedures: TRACIE x2 (01/2022) Pretest Chest Pain Characteristics: None Exercise History: Sedentary Physical Disabilities: Legally blind, brittle diabetic Lung Sounds: Clear to auscultation Heart Sounds: Regular Stress Test Details Test: Pharmacologic stress testing performed using 0.4 mg of regadenoson per 5 mL given IV over 10 s econds. Reason for pharmacologic stress test: physical limitation. Nuclear Acquisition: Rest Tc-99m/Stress Tc-99m 1 day Rest Isotope: Tc-99m Sestamibi. Dose: 9.0 Date: 03/03/2022 Injection Time: 1130 Stress Isotope: Tc-99m Sestamibi. Dose: 31.0 Date: 03/03/2022 Injection Time: 1335 HR Resting HR Supine: 67 bpm Max Heart Rate (APMHR): 173.857012 bpm Target HR (85% APMHR): 147.512534 bpm Max HR Achieved: 92 bpm % of APMHR: 53.18 Recovery HR: 84 bpm BP Resting BP Supine: 120/62 mmHg Max BP: 120/62 mmHg Recovery BP: 102/56 mmHg ECG Resting ECG: Sinus Rhythm Ectopy: None Stress ECG: Sinus Rhythm ST Change: No significant ST segment changes noted, Nondiagnostic low heart rate Arrhythmia: None Recovery ECG: Sinus Rhythm Recovery ST Change: No significant ST segment changes noted, Nondiagnostic low heart rate Recovery Arrhythmia: None Clinical Stress Symptoms: Chest heaviness Rate Pressure Product: [id number] Stress ECG Conclusion 1. Resting electrocardiogram showed an incomplete right bundle branch block 2. Patient underwent testing using pharmacologic stress with regadenoson 3. Maximum heart rate achieved was 53% of predicted for age 4. Electrocardiographic portion of the test was nondiagnostic due to inadequate heart rate 5. See MPI report Stress Test Summary STAGE HR BP SpO2 Symptoms NOTES Supine 67 120/62 98% 1 min post Lexiscan injection 78 112/58 97% Chest heaviness 5/10 3 min post Lexiscan injection 92 108/54 98% Chest heaviness 3/10 6 min post Lexiscan injection 84 102/56 99% Chest heaviness 0/10 Pharmacologic stress testing performed using 0.4 mg of regadenoson per 5 mL given IV over 10 seconds while patient was supine. Pt tolerated testing well. MPI Conclusion Myocardial perfusion is normal without evidence of ischemia or prior infarction Ejection fraction is normal, normal wall motion Radiologist Interpretation Radiologist agrees with Retort Furnace Operator's Interpretation. Radiologist Interpretation by: Carlos Ramirez MD Interpretation Date/Time: 03/03/2022 16:12:29
== END ==
PROVIDERS: PCP Physician Assistant; Visit Provider Internal Medicine
DX: R07.89 Other chest pain (principal)
CPT/HCPCS: 78452; 93016; 93018; 93017; J2785

== ENCOUNTER 2022-03-18 07:49 | Outpatient (CLI) | payer MEDICARE, MEDICAID, SELFPAY ==
--- NOTE | 2022-03-18 07:45 | RT.EKG_ITS ---
APPROVED REPORT Exam: Resting ECG Reason for Exam: CAD Patient Location: O HR:71 bpm ECG Measurements Heart Rate 71 AXIS RI 149 P 55 QRSd 107 QRS -48 QT 382 T 20 QTc 416 Conclusion Sinus rhythm...normal P axis, V-rate 50- 99 Left axis deviation...QRS axis (-30,-90) Borderline low voltage, extremity leads...all extremity leads <0.6mV
== END 2022-03-18 07:50 | disposition home or self-care (01) ==
LOC: DI.CARD 07:50
PROVIDERS: PCP Physician Assistant; Visit Provider Internal Medicine Cardiovascular Disease
DX: I25.10 Atherosclerotic heart disease of native coronary artery without angina pectoris (principal); R94.31 Abnormal electrocardiogram [ECG] [EKG]
CPT/HCPCS: 93010

== ENCOUNTER → 2022-03-18 13:24 | Outpatient (BNVA) | payer MEDICARE, MEDICAID, SELFPAY | PROVIDERS: PCP Physician Assistant; Referring Provider Nurse Practitioner; Visit Provider Internal Medicine Cardiovascular Disease | DX: I25.10 Atherosclerotic heart disease of native coronary artery without angina pectoris (principal); E11.9 Type 2 diabetes mellitus without complications; N18.1 Chronic kidney disease, stage 1; I25.2 Old myocardial infarction; Z95.5 Presence of coronary angioplasty implant and graft | CPT/HCPCS: 93005; 99203; 99214 ==

== ENCOUNTER 2022-04-21 10:15 | Observation (INO) | payer MEDICARE, MEDICAID, SELFPAY ==
[2022-04-21] VITALS (32 sets, daily range): BP systolic 104–134; BP diastolic 33–86; PULSE 62–74; RESP 13–23; TEMP 35.1–37; O2SAT 98–100
--- NOTE | 2022-04-21 10:00 | RT.EKG_ITS ---
APPROVED REPORT Exam: Resting ECG Reason for Exam: syncope Patient Location: E HR:68 bpm ECG Measurements Heart Rate 68 AXIS TN 148 P 70 QRSd 105 QRS -46 QT 384 T 47 QTc 409 Conclusion Sinus rhythm...normal P axis, V-rate 60- 99 Left axis deviation...QRS axis (-30,-90) Low voltage, extremity leads...all extremity leads <0.5mV sinus rhythm at 68, left axis, low voltage, no major change from prior 03/18/2022, no STEMI, nondiagno stic EKG
--- NOTE | 2022-04-21 10:30 | DI.RAD_ITS ---
Exam(s) XR PORTABLE CHEST AP EXAM: XR PORTABLE CHEST AP CLINICAL HISTORY: syncope TECHNIQUE: 2D digital imaging was performed. COMPARISON: CR,XR XR PORTABLE CHEST AP from 01/12/2022 CR,XR XR PORTABLE CHEST AP from 02/22/2022 FINDINGS: Leads overlie the chest. LUNGS: Clear. No pleural abnormality seen. HEART: Normal size. Coronary artery stent. AORTA: Normal. BONES: Unremarkable for age. Soft tissues: Unremarkable. IMPRESSION: No acute findings. DATA REPOSITORY: RADIATION DOSE DELIVERED:
--- NOTE | 2022-04-21 11:07 | ED.GENADUL_ITS ---
Discharge Plan Disposition Patient Disposition: [facility] INPATIENT Condition: Stable Discharge Details Chief Complaint: Dizzy/Sync Clinical Impression: Syncope Admit Date/Time: 04/21/22 16:20 Admit Provider: Josh Garnica Attending Provider: Josh Garnica Primary Care Provider: Jose Pittman ED Provider: Tory Doty Discharge Instructions Activity:: Activity as Tolerated Equipment/Supplies:: cardiac event recorder Diet:: Carb Counting Discharge Orders Discharge Orders: Discharge Order (Routine); Ordered 04/23/22 Ordered By: Iwona Oconnor Discharge Data Discharge Date/Time-TO BE ENTERED AT DEPARTURE: 04/21/22 17:36 Medical Decision Making Concern for arrhythmia, pulmonary embolism, other syncope, dehydration, electrolyte derangement, gastritis, pancreatitis, cholecystitis, acute coronary syndrome other. Exam/history at this time is not consistent with acute aortic pathology, meningitis, sepsis. Plan for EKG, IV placement, telemetry, screening labs, CT abdomen/pelvis, IV fluid hydration. Labs reviewed, WBC 6.05, hemoglobin 12.3, anion gap 4.1, creatinine 0.8, troponin negative, lipase 82. CT abdomen/pelvis shows increased stool burden, no other acute process. Plan for admission given sudden syncope without prodrome in setting of significant coronary artery disease. Medical Records Medical records reviewed: Yes I reviewed the patient's medical records. Imaging Data Radiologic Study: Attestation: I personally reviewed and interpreted this imaging study as follows: Radiologist's impression: EXAM:? CT ABDOMEN ? PELVIS W CLINICAL HISTORY: ? epigastric pain, pain across lower abdomen.? TECHNIQUE:? Imaging Protocol: Axial computed tomography images with coronal and sagittal reformatted images were created and reviewed CONTRAST MATERIAL:? Intravenous: Omnipaque 350 Contrast volume:100 ml Oral:? no COMPARISON:? CT CT ABDOMEN ? PELVIS W from 07/14/2019 CT,NM,TMT NM MPI REST ? STRESS GRP from 03/03/2022 FINDINGS: ABDOMEN: Lung Bases: Normal where visualized. Liver: Normal density. No measurable mass. Gallbladder and biliary tract: No radiodense calculus or dilation.? Pancreas: Normal density, no abnormal calcifications or inflammatory process. Spleen: Normal. Kidneys: Normal size, contour and axis.? Scattered tiny bilateral renal calculi.? No obstructive uropathy. No masses seen. Adrenal glands: No masses seen. Abdominal Aorta: Abdominal portion non-dilated. Atherosclerotic changes. Stomach: Small amount of fluid.? No evidence of wall thickening.? No hiatal hernia. PELVIS:? Bladder:? No gross wall thickening. No calculi.No focal mass. Bowel: Stool is noted throughout the colon.? No obstruction or bowel wall thickening. Appendix normal. Peritoneal cavity: No ascites, collection or mesenteric inflammatory response. Bones: Within normal limits for age.? Reproductive organs: Status post hysterectomy.? Lymph nodes: Unremarkable.? Impression: Bilateral nonobstructing renal calculi.? Increased stool.? No acute abnormality. Lab Data Lab results reviewed: Yes I reviewed the patient's lab results. Labs: Laboratory Tests Range/Units 04/21/22 04/21/22 04/21/22 11:15 11:15 11:15 WBC (4.4-10.8) 10^3/uL 6.05 RBC (3.93-5.22) 10^6/uL 3.96 Hgb (11.2-15.7) g/dL 12.3 Hct (36.0-46.0) % 36.9 MCV (80-95) fL 93 MCH (27.0-33.0) pg 31.1 MCHC (32.0-36.0) % 33.3 RDW (11.7-14.6) % 12.5 Plt Count (130-400) 10^3/uL 160 MPV (8.0-11.0) fL 10.2 Immature Gran % 0.2 Neutrophils % 65.0 Lymphocytes % 23.1 Monocytes % 10.2 Eosinophils % 0.8 Basophils % 0.7 Nucleated RBC % (0.0-0.3) % 0.0 Absolute Neutrophils (1.2-6.7) 10^3/uL 3.93 Absolute Lymphocytes (1.2-3.4) 10^3/uL 1.40 Absolute Monocytes (0.1-0.8) 10^3/uL 0.62 Absolute Eosinophils (0.0-0.7) 10^3/uL 0.05 Absolute Basophils (0.0-0.2) 10^3/uL 0.04 D-Dimer (<500) ng/mlFEU 420 Sodium (136-145) mmol/L 138 Potassium (3.5-5.1) mmol/L 4.6 Chloride (98-107) mmol/L 102 Carbon Dioxide (21.0-32.0) mmol/L 31.9 Anion Gap (3-11) mmol/L 4.1 BUN (7-18) mg/dL 15 Creatinine (0.55-1.02) mg/dL 0.8 Est GFR (CKD-EPI 2020) (mL/min/1.73m2) 90.83 Glucose (74-106) mg/dL 210 H Calcium (8.5-10.1) mg/dL 9.3 Magnesium (1.8-2.4) mg/dL 2.0 Total Bilirubin (0.2-1.0) mg/dL 0.6 AST (15-37) U/L 36 ALT (14-59) U/L 45 Alkaline Phosphatase (46-116) U/L 84 Troponin I (<or=60) ng/L < 50 Total Protein (6.4-8.2) g/dL 7.1 Albumin (3.4-5.0) g/dL 3.5 Lipase (73-393) U/L 82 Urine Color (Yellow) Urine Clarity (Clear) Urine pH (5-8) Ur Specific Raymond (1.005-1.025) Urine Protein (Negative) mg/dL Urine Ketones (Negative) mg/dL Urine Blood (Negative) Urine Nitrite (Negative) Urine Bilirubin (Negative) Urine Urobilinogen (Up TO 0.2) EU/dL Ur Leukocyte Esterase (Negative) Urine Glucose (Negative) mg/dL Range/Units 04/21/22 04/21/22 11:52 14:45 WBC (4.4-10.8) 10^3/uL RBC (3.93-5.22) 10^6/uL Hgb (11.2-15.7) g/dL Hct (36.0-46.0) % MCV (80-95) fL MCH (27.0-33.0) pg MCHC (32.0-36.0) % RDW (11.7-14.6) % Plt Count (130-400) 10^3/uL MPV (8.0-11.0) fL Immature Gran % Neutrophils % Lymphocytes % Monocytes % Eosinophils % Basophils % Nucleated RBC % (0.0-0.3) % Absolute Neutrophils (1.2-6.7) 10^3/uL Absolute Lymphocytes (1.2-3.4) 10^3/uL Absolute Monocytes (0.1-0.8) 10^3/uL Absolute Eosinophils (0.0-0.7) 10^3/uL Absolute Basophils (0.0-0.2) 10^3/uL D-Dimer (<500) ng/mlFEU Sodium (136-145) mmol/L Potassium (3.5-5.1) mmol/L Chloride (98-107) mmol/L Carbon Dioxide (21.0-32.0) mmol/L Anion Gap (3-11) mmol/L BUN (7-18) mg/dL Creatinine (0.55-1.02) mg/dL Est GFR (CKD-EPI 2020) (mL/min/1.73m2) Glucose (74-106) mg/dL Calcium (8.5-10.1) mg/dL Magnesium (1.8-2.4) mg/dL Total Bilirubin (0.2-1.0) mg/dL AST (15-37) U/L ALT (14-59) U/L Alkaline Phosphatase (46-116) U/L Troponin I (<or=60) ng/L < 50 Total Protein (6.4-8.2) g/dL Albumin (3.4-5.0) g/dL Lipase (73-393) U/L Urine Color (Yellow) Yellow Urine Clarity (Clear) Clear Urine pH (5-8) 7.0 Ur Specific Raymond (1.005-1.025) 1.015 Urine Protein (Negative) mg/dL Negative Urine Ketones (Negative) mg/dL Negative Urine Blood (Negative) Negative Urine Nitrite (Negative) Negative Urine Bilirubin (Negative) Negative Urine Urobilinogen (Up TO 0.2) EU/dL 0.2 Ur Leukocyte Esterase (Negative) Negative Urine Glucose (Negative) mg/dL 250 H ECG Data Attestation: I personally reviewed and interpreted this ECG (s) as follows: Interpretation: EKG shows sinus rhythm at 68, left axis, low voltage, no major change from prior 03/18/2022, no STEMI, nondiagnostic EKG HPI General Mode of arrival: EMS . Date/Time Provider Initiated Documentation: 04/21/22 10:23 . Limitations to Documentation: no limitations . Information obtained by: patient, RN notes reviewed and old records reviewed . HPI Narrative: Kailey Hernandez is a 47-year-old woman with history of coronary artery disease with STEMI, chronic kidney disease, asthma, GERD presenting to the emergency department with syncopal episode. Patient reports that ever since she had her STEMI (January 2022) she has been having abdominal pain. Patient reports that this was thought to be GERD and she has been on multiple medications to help with reflux. Patient reports that none of these medications seem to be helping. Patient reports that she has had continued upper and lower abdominal pain over the past few months, no worsening/change in severity or nature over the past few weeks. Patient reports that she has also had intermittent vomiting with the abdominal pain which does seem to be worse over the past 3 weeks or so. Patient reports that she is able to hold food down but does have vomiting intermittently. She also reports intermittent diarrhea over the past few months. She has had no black or bloody emesis or diarrhea. Patient reports that she has been taking Pepto-Bismol once a day or so with help with pain which does help somewhat. Patient reports that she was sitting in a chair in the waiting room at her PCPs office waiting to be seen when she lost consciousness. Patient reports that she had no preceding symptoms. The patient reports that she was not experiencing significant pain, lightheadedness, palpitations, tunnel vision, ringing in ears, or any other symptoms prior to losing consciousness. She did not bite her tongue, had no incontinence. Per EMS bystanders reported no signs of seizure. Patient was given Narcan with no effect. Unclear how long unresponsiveness lasted. Upon EMS arrival patient was awake and alert, at baseline. Blood sugar 291. Patient reports that other than continued unchanged abdominal pain she has no symptoms at this time. She denies any other pain, fever, cough, shortness of breath, numbness, weakness, rash. Patient denies having similar syncopal episodes in the past. Related Data Home Medications Medication Instructions Recorded Confirmed cholecalciferol (vitamin D3) 25 25 mcg PO DAILY 01/12/22 04/21/22 mcg (1,000 unit) tablet clopidogrel 75 mg tablet (Plavix) 75 mg PO DAILY 01/12/22 04/21/22 metoprolol succinate 50 mg 50 mg PO DAILY 01/12/22 04/21/22 tablet,extended release 24 hr acetone (urine) test (Ketostix 01/29/22 03/18/22 strips) albuterol sulfate 2.5 mg/3 mL 2.5 mg inhalation Q8H PRN 01/29/22 04/21/22 (0.083 %) solution for nebulization albuterol sulfate 90 mcg/actuation 2 puff inhalation Q6H PRN 01/29/22 04/21/22 aerosol inhaler (ProAir HFA) aspirin 81 mg chewable tablet 81 mg PO DAILY 01/29/22 04/21/22 (Children's Aspirin) glucagon 1 mg injection kit mg subcut PRN 01/29/22 03/18/22 atorvastatin 80 mg tablet 80 mg PO DAILY 02/22/22 04/21/22 insulin aspart U-100 100 unit/mL See Rx Instructions .Route .COMPLEX 02/22/22 04/21/22 (3 mL) subcutaneous pen (Novolog Flexpen U-100 Insulin aspart) insulin glargine 100 unit/mL (3 20 unit subcut DAILY 02/22/22 04/21/22 mL) subcutaneous pen (Basaglar KwikPen U-100 Insulin) nitroglycerin 0.4 mg sublingual 0.4 mg sublingual PRN PRN 04/21/22 04/21/22 tablet magnesium oxide 400 mg (241.3 mg 400 mg PO DAILY #14 tabs 04/23/22 magnesium) tablet Previous Rx's Medication Instructions Recorded magnesium oxide 400 mg (241.3 mg 400 mg PO DAILY #14 tabs 04/23/22 magnesium) tablet Allergies Allergy/AdvReac Type Severity Reaction Status Date / Time No Known Allergies Allergy Verified 03/18/22 14:10 General Stated Complaint: Dizzy/Sync MITCHELL: 2 Review of Systems Narrative: Constitutional: denies fevers Eyes: denies eye pain ENT: denies ear pain, dental pain, sore throat Cardiovascular: denies chest pain, edema Respiratory: denies SOB, cough GI: Reports abdominal pain, vomiting, diarrhea : denies flank pain MSK: denies back pain, neck pain, arthralgias, myalgias Skin: denies rash Neuro: denies headaches, numbness, weakness PFSH All Active Problems (Updated 05/05/22 @ 08:48 by Tory Doty MD) Syncope (Chronic) Hypomagnesemia (Acute) Nonsustained paroxysmal ventricular tachycardia (Acute) IDDM (insulin dependent diabetes mellitus) (Chronic) Syncope (Chronic) CAD (coronary artery disease), [place] coronary artery (Chronic) Cancer of cervix (Acute) Neurogenic bladder (Acute) Vitamin D deficiency (Acute) History of deep vein thrombophlebitis of lower extremity (Acute) Neuropathy (Acute) Hyperkalemia (Acute) Chronic kidney disease, stage I (Acute) Hearing loss (Acute) Blind right eye (Acute) Visual loss (Acute) Acute pain in female pelvis (Acute) Asthma (Chronic) GERD (gastroesophageal reflux disease) (Chronic) Cellulitis of foot (Acute) Elevated troponin (Acute) Diabetes (Chronic) Social History Smoking/Tobacco Use Status: Never Smoking risk assessment performed?: Yes Alcohol Intake: never Drug use: Never Substance use type: does not use Seatbelt use: always Do you feel safe at home: Yes Do you feel safe in your relationship?: Yes Female Reproductive History Menstrual Menopause type: surgical History History 14 Para Hx # Term Pregnancies Multiple births Hx # Pregnancies 1 Ectopic pregnancies AB induced Hx Number of Living Children AB spontaneous Exam Narrative Exam Narrative: Constitutional: well and [id number], pleasant, conversing normally HENT: head atraumatic/normocephalic/normal inspection, mucous membranes moist Eyes: conjunctiva normal, sclera normal, pupils 3mm b/l Neck: no stridor, normal ROM, trachea midline Chest: normal inspection Resp: normal work of breathing, LCTAB Cardio: normal rate, normal rhythm, no murmur appreciated GI: abdomen soft, mild epigastric tenderness to palpation, no rebound, no guarding, non-distended Back: normal inspection, no rash Skin: warm, dry, normal color, no rash Neuro: alert, not altered, grossly non-focal, normal tone Ext: no edema, no posterior calf tenderness to palpation Psych: normal mood, normal affect, normal behavior Course Vital Signs Vital signs: Vital Signs Temperature 37.0 C 04/21/22 10:15 Pulse 68 04/21/22 10:15 Respiratory Rate 18 04/21/22 10:15 Blood Pressure 134/54 L 04/21/22 10:15 Pulse Oximetry 100 04/21/22 10:15 Temperature 37.0 C 04/21/22 10:15 Pulse 68 04/21/22 10:15 Respiratory Rate 18 04/21/22 10:15 Blood Pressure 134/54 L 04/21/22 10:15 Blood Pressure Position Supine 04/21/22 10:15 Pulse Oximetry 100 04/21/22 10:15 Oxygen Delivery Method Room Air 04/21/22 10:15 Oxygen Flow Rate 0 04/21/22 10:15 Pain Level 0 04/21/22 10:15
[2022-04-21 11:22] LABS: Abs Immature Grans 0.01 10^3/uL (0.0-0.06); Absolute Basophil Count 0.04 10^3/uL (0.0-0.2); Absolute Eosinophil Count 0.05 10^3/uL (0.0-0.7); Absolute Monocyte Count 0.62 10^3/uL (0.1-0.8); Absolute Neutrophil Count 3.93 10^3/uL (1.2-6.7); Basophils % 0.7; Eosinophils % 0.8; HCT 36.9 % (36.0-46.0); HGB 12.3 g/dL (11.2-15.7); Immature Grans % 0.2; Lymphocytes % 23.1; MCH 31.1 pg (27.0-33.0); MCHC 33.3 % (32.0-36.0); MCV 93 fL (80-95); MPV 10.2 fL (8.0-11.0); Monocytes % 10.2; Platelet Count 160 10^3/uL (130-400); RBC 3.96 10^6/uL (3.93-5.22); RDW 12.5 % (11.7-14.6); RDW-SD 43.4 fL; WBC 6.05 10^3/uL (4.4-10.8)
[2022-04-21 11:46] LABS: ALT 45 U/L (14-59); AST 36 U/L (15-37); Albumin 3.5 g/dL (3.4-5.0); Alkaline Phosphatase 84 U/L (46-116); Anion Gap 4.1 mmol/L (3-11); BUN 15 mg/dL (7-18); Bilirubin, Total 0.6 mg/dL (0.2-1.0); CO2 31.9 mmol/L (21.0-32.0); CREATININE 0.8 mg/dL (0.55-1.02); Calcium 9.3 mg/dL (8.5-10.1); Chloride 102 mmol/L (98-107); Estimated GFR 90.83 (mL/min/1.73m2); Glucose 210 mg/dL (74-106); Lipase 82 U/L (73-393); Potassium 4.6 mmol/L (3.5-5.1); Sodium 138 mmol/L (136-145); Total Protein 7.1 g/dL (6.4-8.2); Troponin I < 50 ng/L (<or=60)
[2022-04-21 11:56] LABS: Bilirubin Negative (Negative); Blood Negative (Negative); Clarity Clear (Clear); Glucose 250 mg/dL (Negative); Ketones Negative (Negative); Leukocyte Esterase Negative (Negative); Nitrite Negative (Negative); Specific Gravity 1.015 (1.005-1.025); Urobilinogen 0.2 EU/dL (Up TO 0.2)
[2022-04-21 11:58] LABS: D-Dimer 420 ng/mlFEU (<500)
--- NOTE | 2022-04-21 12:00 | DI.CT_ITS ---
Exam(s) CT ABDOMEN PELVIS W EXAM: CT ABDOMEN PELVIS W CLINICAL HISTORY: epigastric pain, pain across lower abdomen. TECHNIQUE: Imaging Protocol: Axial computed tomography images with coronal and sagittal reformatted images were created and reviewed CONTRAST MATERIAL: Intravenous: Omnipaque 350 Contrast volume:100 ml Oral: no COMPARISON: CT CT ABDOMEN PELVIS W from 07/14/2019 CT,NM,TMT NM MPI REST STRESS GRP from 03/03/2022 FINDINGS: ABDOMEN: Lung Bases: Normal where visualized. Liver: Normal density. No measurable mass. Gallbladder and biliary tract: No radiodense calculus or dilation. Pancreas: Normal density, no abnormal calcifications or inflammatory process. Spleen: Normal. Kidneys: Normal size, contour and axis. Scattered tiny bilateral renal calculi. No obstructive urop athy. No masses seen. Adrenal glands: No masses seen. Abdominal Aorta: Abdominal portion non-dilated. Atherosclerotic changes. Stomach: Small amount of fluid. No evidence of wall thickening. No hiatal hernia. PELVIS: Bladder: No gross wall thickening. No calculi.No focal mass. Bowel: Stool is noted throughout the colon. No obstruction or bowel wall thickening. Appendix normal . Peritoneal cavity: No ascites, collection or mesenteric inflammatory response. Bones: Within normal limits for age. Reproductive organs: Status post hysterectomy. Lymph nodes: Unremarkable. Impression: Bilateral nonobstructing renal calculi. Increased stool. No acute abnormality. RADIATION DOSE DELIVERED: 843.9mGy.cm Total DLP DATA REPOSITORY: All CT scans at this facility are submitted to the National Radiology Data Registry (NRDR) Dose Index Registry (DIR) with the [employer] ([employer]). RADIATION OPTIMIZATION: All CT scans at this facility use at least one of these dose optimization te chniques: automated exposure control; mA and/or kV adjustment per patient size (includes targeted exa ms where dose is matched to clinical indication); or iterative reconstruction.
[2022-04-21] MEDS: Omnipaque 350 MG/ML 100 ML BTL IJ (13:47)
[2022-04-21] MEDS: Normal Saline Flush 10 ML SYR IVP (13:48)
[2022-04-21 15:09] LABS: Troponin I < 50 ng/L (<or=60)
[2022-04-21] MEDS: Normal Saline 1,000 ML 1000 ML IV (16:03)
[2022-04-21 16:14] LABS: Source Nasal/Nares
[2022-04-21 16:50] LABS: COVID-19 PCR Negative (Negative)
[2022-04-21 19:43] LABS: Troponin I < 50 ng/L (<or=60)
--- NOTE | 2022-04-21 21:49 | W.PM.HP.N ---
Date of service: 04/21/22 Time of Service: 21:50 Assessment and Plan Assessment and plan (1) Syncope: Status: Chronic Assessment and plan: unclear as to etiology but does not sound like arrhythmia as she had no antecedent symptoms of palpitations, lightheadedness or chest pain. If she had syncope from VT she would not likely have come out of this w/out some intervention. I think it is more likely a hypoglycemia spell. If she had SVT she would have had more symptoms before fainting. She should have a CGM to monitor her glucose continuously. However, she has severe visual impairment and depends on her daughter and her boyfriend to help monitor her glucose and draw up her insulin. She should have a compliance monitor done as outpatient to be sure she is not having arrhythmias given her CAD. She does not need a repeat stress MPI at this time as this was just done last month and was normal. (2) Diabetes: Status: Chronic Assessment and plan: monitor glucose AC/HS and cover w/ low dose sliding scale in addition to her ratio of 1:10 insulin to carbohydrates. continue her basal insulin dose for now; however, she will need close monitoring of her glucose as outpatient and I think a CGM still would be useful for her family to monitor her glucose closely (3) CAD (coronary artery disease), [place] coronary artery: Status: Chronic Assessment and plan: aysmptomatic and normal troponin levels. continue her home meds of plavix, aspirin and atorvastatin. follow up w/ Dr. Diaz as outpatient. History of Present Illness History of Present Illness Chief Complaint: I passed out Narrative: 47 yr old female w/ PMH of CAD s/p IN January 03, 2022, s/p PCI w/ two stents performed at [facility] [place] [facility]. She has had subsequent follow up stress Lexiscan MPI on 03/03/22 was normal. Today she was in her PCP office waiting for her to be called back. She was waiting w/ her boyfriend when she had a syncope spell. She denies any antecedent presyncopal warning such as dizziness, dyspnea, chest pain or palpitations. She was at her PCP office at 9 am for 10 am appt. She says that she had her usual breakfast at 5 am that consisted of coffee, glass of milk and peanut butter sandwich. At 8 am she had a snack w/ taking her 20 units of her Basiglar. Her glucose at 8 am was 204. Prior to this her glucose was 198 when she had her breakfast at 5 a.m. and she took 2 units of her Novolog. She has been having frequent lows but also highs. When she awoke she was being given narcan per her nostril. She does not recall what her glucose was when EMS arrived. Unfortunately it is not documented in the ER record what her glucose was or whether or not her PCP office checked her glucose. Her labs drawn CMP glucose was 210. Otherwise the rest of her labs including her CMP, CBC, troponin I and d-dimer were all normal. CT of her abdomen and pelvis was done for complaints of some sharp abdominal pains she experienced while in the ER. This was unremarkable except for nonobstructing renal stones. She has symptoms of occasional post prandial nausea and occasional vomiting. No associated dyspepsia. She was admitted for observation per recommendation of ED provider d/t abnormal Heart Score and to monitor for arrhythmias. My impression is that she probably had hypoglycemic spell. Review of Systems All systems reviewed & are unremarkable except as noted in HPI and below ENT Ears, Nose, Mouth, and Throat: Reports dysphagia (especially w/ pills) and Denies odynophagia Cardiovascular Cardiovascular: Denies chest pain, Denies chest pain with activity, Denies syncope, Denies lightheadedness, Denies radiating jaw, neck or arm pain, Denies palpitations, Denies dyspnea and Denies dyspnea on exertion Respiratory Respiratory: Denies dyspnea and Denies dyspnea on exertion Gastrointestinal Gastrointestinal: Reports as per HPI, Reports abdominal pain, Denies melena, Denies hematochezia, Reports dysphagia (especially w/ pills), Denies early satiety, Denies dyspepsia and Denies odynophagia Genitourinary Genitourinary: Reports system reviewed and no additional complaints, except as documented Neurologic Neurologic: Reports system reviewed and no additional complaints, except as documented and Denies syncope Endocrine Endocrine: Denies palpitations PFSH All Active Problems (Updated 04/21/22 @ 22:45 by Josh Garnica MD) Syncope (Chronic) CAD (coronary artery disease), [place] coronary artery (Chronic) Cancer of cervix (Acute) Neurogenic bladder (Acute) Vitamin D deficiency (Acute) History of deep vein thrombophlebitis of lower extremity (Acute) Neuropathy (Acute) Hyperkalemia (Acute) Chronic kidney disease, stage I (Acute) Hearing loss (Acute) Blind right eye (Acute) Visual loss (Acute) Acute pain in female pelvis (Acute) Asthma (Chronic) GERD (gastroesophageal reflux disease) (Chronic) Cellulitis of foot (Acute) Elevated troponin (Acute) Diabetes (Chronic) Social History Smoking/Tobacco Use Status: Never Smoking risk assessment performed?: Yes Alcohol Intake: never Drug use: Never Substance use type: does not use Seatbelt use: always Do you feel safe at home: Yes Do you feel safe in your relationship?: Yes Female Reproductive History Menstrual Menopause type: surgical History History 14 Para Hx # Term Pregnancies Multiple births Hx # Pregnancies 1 Ectopic pregnancies AB induced Hx Number of Living Children AB spontaneous Meds Allergies and Home Medications Allergies Allergy/AdvReac Type Severity Reaction Status Date / Time No Known Allergies Allergy Verified 03/18/22 14:10 Home Medications Medication Instructions Recorded Confirmed Type cholecalciferol (vitamin D3) 25 25 mcg PO DAILY 01/12/22 04/21/22 History mcg (1,000 unit) tablet clopidogrel 75 mg tablet (Plavix) 75 mg PO DAILY 01/12/22 04/21/22 History metoprolol succinate 50 mg 50 mg PO DAILY 01/12/22 04/21/22 History tablet,extended release 24 hr acetone (urine) test (Ketostix 01/29/22 03/18/22 History strips) albuterol sulfate 2.5 mg/3 mL 2.5 mg inhalation Q8H PRN 01/29/22 04/21/22 History (0.083 %) solution for nebulization albuterol sulfate 90 mcg/actuation 2 puff inhalation Q6H PRN 01/29/22 04/21/22 History aerosol inhaler (ProAir HFA) aspirin 81 mg chewable tablet 81 mg PO DAILY 01/29/22 04/21/22 History (Children's Aspirin) glucagon 1 mg injection kit mg subcut PRN 01/29/22 03/18/22 History atorvastatin 80 mg tablet 80 mg PO DAILY 02/22/22 04/21/22 History insulin aspart U-100 100 unit/mL See Rx Instructions .Route .COMPLEX 02/22/22 04/21/22 History (3 mL) subcutaneous pen (Novolog Flexpen U-100 Insulin aspart) insulin glargine 100 unit/mL (3 20 unit subcut DAILY 02/22/22 04/21/22 History mL) subcutaneous pen (Basaglar KwikPen U-100 Insulin) nitroglycerin 0.4 mg sublingual 0.4 mg sublingual PRN PRN 04/21/22 04/21/22 History tablet Results Labs Result diagrams: 04/21/22 11:15 04/21/22 11:15 Labs: Laboratory Results - last 24 hr 04/21/22 04/21/22 04/21/22 11:15 11:15 11:15 WBC 6.05 RBC 3.96 Hgb 12.3 Hct 36.9 MCV 93 MCH 31.1 MCHC 33.3 RDW 12.5 Plt Count 160 MPV 10.2 Immature Gran % 0.2 Neutrophils % 65.0 Lymphocytes % 23.1 Monocytes % 10.2 Eosinophils % 0.8 Basophils % 0.7 Nucleated RBC % 0.0 Absolute Neutrophils 3.93 Absolute Lymphocytes 1.40 Absolute Monocytes 0.62 Absolute Eosinophils 0.05 Absolute Basophils 0.04 D-Dimer 420 Sodium 138 Potassium 4.6 Chloride 102 Carbon Dioxide 31.9 Anion Gap 4.1 BUN 15 Creatinine 0.8 Est GFR (CKD-EPI 2020) 90.83 Glucose 210 H Calcium 9.3 Magnesium 2.0 Total Bilirubin 0.6 AST 36 ALT 45 Alkaline Phosphatase 84 Troponin I < 50 Total Protein 7.1 Albumin 3.5 Lipase 82 Urine Color Urine Clarity Urine pH Ur Specific [place] Urine Protein Urine Ketones Urine Blood Urine Nitrite Urine Bilirubin Urine Urobilinogen Ur Leukocyte Esterase Urine Glucose COVID-19 Source SARS-CoV-2 (PCR) 04/21/22 04/21/22 04/21/22 11:52 14:45 15:56 WBC RBC Hgb Hct MCV MCH MCHC RDW Plt Count MPV Immature Gran % Neutrophils % Lymphocytes % Monocytes % Eosinophils % Basophils % Nucleated RBC % Absolute Neutrophils Absolute Lymphocytes Absolute Monocytes Absolute Eosinophils Absolute Basophils D-Dimer Sodium Potassium Chloride Carbon Dioxide Anion Gap BUN Creatinine Est GFR (CKD-EPI 2020) Glucose Calcium Magnesium Total Bilirubin AST ALT Alkaline Phosphatase Troponin I < 50 Total Protein Albumin Lipase Urine Color Yellow Urine Clarity Clear Urine pH 7.0 Ur Specific [place] 1.015 Urine Protein Negative Urine Ketones Negative Urine Blood Negative Urine Nitrite Negative Urine Bilirubin Negative Urine Urobilinogen 0.2 Ur Leukocyte Esterase Negative Urine Glucose 250 H COVID-19 Source Nasal/Nares SARS-CoV-2 (PCR) Negative 04/21/22 19:18 WBC RBC Hgb Hct MCV MCH MCHC RDW Plt Count MPV Immature Gran % Neutrophils % Lymphocytes % Monocytes % Eosinophils % Basophils % Nucleated RBC % Absolute Neutrophils Absolute Lymphocytes Absolute Monocytes Absolute Eosinophils Absolute Basophils D-Dimer Sodium Potassium Chloride Carbon Dioxide Anion Gap BUN Creatinine Est GFR (CKD-EPI 2020) Glucose Calcium Magnesium Total Bilirubin AST ALT Alkaline Phosphatase Troponin I < 50 Total Protein Albumin Lipase Urine Color Urine Clarity Urine pH Ur Specific [place] Urine Protein Urine Ketones Urine Blood Urine Nitrite Urine Bilirubin Urine Urobilinogen Ur Leukocyte Esterase Urine Glucose COVID-19 Source SARS-CoV-2 (PCR) Last Vital Signs Temp 35.1 C L 04/21/22 18:12 Pulse 66 04/21/22 18:19 Resp 16 04/21/22 18:12 BP 104/62 04/21/22 18:12 Pulse Ox 99 04/21/22 18:12
[2022-04-21] MEDS: Enoxaparin 40 MG/0.4 ML SYR SC (21:53)
[2022-04-21] MEDS: Insulin Aspart 300 UNITS/3 ML PEN SC (21:54)
[2022-04-21] MEDS: Acetaminophen 325 MG TAB PO (23:25)
[2022-04-22] VITALS (9 sets, daily range): BP systolic 91–116; BP diastolic 58–69; PULSE 62–78; RESP 16–17; TEMP 35.6–36.8; O2SAT 94–100
[2022-04-22 07:09] LABS: Platelet Count 170 10^3/uL (130-400)
[2022-04-22 07:44] LABS: Hemoglobin A1C 7.7 % (<5.7)
[2022-04-22] MEDS: Normal Saline Flush 10 ML SYR IVP (08:10)
[2022-04-22] MEDS: Cholecalciferol (Vitamin D3) 1,000 UNIT TAB 1000 UNITS PO (08:10)
[2022-04-22] MEDS: Aspirin 81 MG CHEW PO (08:11)
[2022-04-22] MEDS: Metoprolol CR 50 MG TABCR PO (08:11)
[2022-04-22] MEDS: Atorvastatin 40 MG TAB 80 MG PO (08:11)
[2022-04-22] MEDS: Clopidogrel 75 MG TAB PO (08:11)
[2022-04-22] MEDS: Insulin Aspart 300 UNITS/3 ML PEN SC ×6 (08:13→17:26)
[2022-04-22] MEDS: Insulin Glargine 300 UNITS/3 ML PEN 20 UNITS SC (08:14)
--- NOTE | 2022-04-22 09:28 | NUR.NOTE ---
Received a call from Fernando Layne IT AUDITOR from [facility]. States that the POC blood sugar at the office prior to EMS arrival was 270. Nursing Note:
--- NOTE | 2022-04-22 10:07 | PDOC.CMIN ---
- If Service Date Differs Date of service: 04/22/22 Time of Service: 10:07 Care Management Initial Assess REASON FOR HOSPITALIZATION:: Syncope PAST MEDICAL HISTORY/PAST SURGICAL HISTORY:: All Active Problems (Updated 04/21/22 @ 22:45 by Josh Garnica MD). Syncope (Chronic). CAD (coronary artery disease), [place]al[place] coronary artery (Chronic). Cancer of cervix (Acute). Neurogenic bladder (Acute). Vitamin D deficiency (Acute). History of deep vein thrombophlebitis of lower extremity (Acute). Neuropathy (Acute). Hyperkalemia (Acute). Chronic kidney disease, stage I (Acute). Hearing loss (Acute). Blind right eye (Acute). Visual loss (Acute). Acute pain in female pelvis (Acute). Asthma (Chronic). GERD (gastroesophageal reflux disease) (Chronic). Cellulitis of foot (Acute). Elevated troponin (Acute). Diabetes (Chronic) PREVIOUS FUNCTIONAL STATUS/SOCIAL/FAMILY SUPPORTS:: Kailey lives in a first floor appt is [facility] with her partner Delano and 22year old daughter. Kailey shares that she is legally blind and although she is independent with her ADL's at baseline Delano and her daughter help her with her medications and diabetes monitoring. Kailey and her family access the [employer] shuttle for transportation. CURRENT FUNCTIONAL STATUS:: Kailey was sitting up in her chair when CM met with her. She is alert, oriented and pleasantly engages in conversation. Kailey shares that she has no community needs at this time. For future reference CM shared available community resources like [employer] and [employer]. ADVANCE DIRECTIVES:: None on file, CM will offer forms. Has patient been provided with info about the portal/API?: Yes Did the patient sign up for the portal?: No CODE STATUS:: Full Code INSURANCE COVERAGE / FINANCIAL ISSUES:: Medicaid. Medicare CURRENT HOME/COMMUNITY SERVICES/EQUIPMENT:: [facility]. Kailey would like to get hearing aids in the future. PRIMARY CARE PHYSICIAN:: Jose Pittman POTENTIAL DISCHARGE NEEDS:: Follow up appointments with PCP and Cardiology. PATIENT/FAMILY EDUCATION NEEDS:: Review discharge instructions, medications, limitations and plan to follow up with community providers. Discuss ask me three. ANTICIPATED BARRIERS TO DISCHARGE:: None identified. TRANSPORTATION:: Via private vehicle with family or [facility]. PLAN:: Jocelyns blood sugars are being closely monitored and she is on telemetry. Anticipate, Kailey will return home when ready per MD. She will need outpatient follow up appointments with Dr. Diaz(Cardiology) and her PCP. She will transport via [facility] private vehicle.
[2022-04-22 12:42] LABS: Anion Gap 9.2 mmol/L (3-11); BUN 17 mg/dL (7-18); CO2 28.8 mmol/L (21.0-32.0); CREATININE 0.8 mg/dL (0.55-1.02); Calcium 9.6 mg/dL (8.5-10.1); Chloride 99 mmol/L (98-107); Estimated GFR 90.83 (mL/min/1.73m2); Glucose 187 mg/dL (74-106); Magnesium 1.8 mg/dL (1.8-2.4); Potassium 4.2 mmol/L (3.5-5.1); Sodium 137 mmol/L (136-145)
--- NOTE | 2022-04-22 13:44 | DI.US_ITS ---
APPROVED REPORT EXAM: Comprehensive 2D, Doppler, and color-flow Echocardiogram Patient Location: In-Patient Room/Bed: 226 Endoscopy Tech: Lydia Wilson RDCS (AE) Indications: Syncope, V Tach Other Information Study Quality: Adequate Conclusion Normal left ventricular wall thickness and chamber size. Estimated ejection fraction is 60%. Wall m otion is normal Normal right ventricular size and systolic function Both atria are normal in size There is no structural or hemodynamically significant valvular disease Wall motion Left Ventricle The left ventricle is normal size. The left ventricular systolic function is normal. The left ventric ular ejection fraction is within the normal range. There is normal left ventricular wall thickness. T here is normal LV segmental wall motion. There is no ventricular septal defect visualized. LVEF is 60 %. Right Ventricle The right ventricle is normal size. The right ventricular systolic function is normal. Atria The left atrium size is normal. The right atrium size is normal. The interatrial septum is intact wit h no evidence for an atrial septal defect. Aortic Valve The aortic valve is normal in structure. Aortic valve is trileaflet. There is no aortic valvular sten osis. No aortic regurgitation is present. Mitral Valve The mitral valve is normal in structure. No evidence of mitral valve stenosis. Trace mitral regurgita tion. Tricuspid Valve The tricuspid valve is normal in structure. There is no tricuspid valve stenosis. Trace tricuspid reg urgitation. Unable to assess PA pressure. Pulmonic Valve The pulmonary valve is normal in structure. There is no pulmonic valvular stenosis. Trace pulmonic re gurgitation. Great Vessels The aortic root is normal in size. The ascending aorta is normal in size. Aortic arch is normal in ca liber. IVC is normal in size and collapses >50% with inspiration. Pericardium There is no pericardial effusion. 2D Dimensions IVSD d PLAX 0.70 cm F: 0.6-1.0 LV Vol A2C d MOD 63.4 mL LVPW d PLAX 0.73 cm F: 0.6 - 1.0 LV Vol A4C d MOD 54.3 mL LVID d PLAX 4.05 cm F: 3.8 - 5.2 LA vol/ BSA A2C s A-L 14.1 mL/m2 LVDs 2.65 cm F: 2.2 - 3.5 LA vol/ BSA A4C s A-L 12.6 mL/m2 Ao Root d 2.34 cm F: 2.7 - 3.3 LA Vol/ BSA Biplane s A-L 13.5 mL/m2 RA Area A4C 8.65 cm2 LA Area A4C s MOD 9.80 cm2 RA Vol/ BSA A4C s A-L 10.8 mL/m2 LA Area A2C s MOD 10.52 cm2 Ao Asc Diam d 2.53 cm F: 2.3 - 3.1 LV EF A4C MOD 60.4 % LV EF Teichholz 62.8 % LV EF A2C MOD 58.2 % LVEF (Boyd's) 58.66 % F: 54 - 74 LV EF Biplane MOD 58.7 % LV Volume 50.18 mL F: 46 - 106 SV 36.70 mL LV Volume Index 30.41 mL/m2 F: 29 - 61 SV Index 22.17 mL/m2 LV Vol Biplane MOD 62.6 mL FS 33.50 % M-Mode TAPSE 2.23 cm (M/F) >1.7 LV Diastology MV E' medial 0.102 (>0.07 m/s) E/A Ratio 1.4 LV E/e MED 10.50 (<14) MV E Vmax 1.07 (0.4-1.3 m/s) MV E' lateral 0.147 (>0.1 m/s) MV A Vmax 0.75 (0.4-1.3 m/s) LV E/e LAT 7.25 (<14) MV E/A Ratio 1.35 MV E/E' medial 10.53 MV E/E' lateral 7.30 Aortic Valve LVOT Area 2.32 cm2 AoV Area Vmax 2.14 cm2 LVOT Vmax 1.22 m/s AoV Area/ BSA (Vmax) 1.29 cm2/m2 LVOT Mean Zach. 0.81 m/s TRICIA Mean Zach. 2.00 cm2 LVOT Peak Grad 5.9 mmHg TRICIA Mean Zach. Index 1.21 cm2/m2 LVOT Mean Grad 3.0 mmHg LVOT VTI 0.264 m LVOT Diam s 1.70 cm AoV Vmax 1.32 m/s Velocity Ratio 0.92 AoV Mean Zahc. 0.93 m/s AoV Peak Grad 7.0 mmHg LVOT SV 61.23 mL AoV Mean Grad 3.9 mmHg AoV VTI 0.302 m AoV Area VTI 2.03 cm2 AoV Area/ BSA (VTI) 1.23 cm/m2 Mitral Valve MV DT 202 (160-240 msec) MV PHT 58 msec MV Area PHT 3.76 cm2 MV VTI 0.251 m MV Area VTI 2.44 (4.0-6.0 cm2) Pulmonary Valve PV Vmax 0.92 (0.5-1.5 m/s) RVOT Peak Gr. 2.23 mmHg PV Peak Grad 3.4 mmHg RVOT Mean Gr. 1.00 mmHg PV Mean Grad 1.7 mmHg RVOT VTI 0.149 m PV VTI 0.194 m RVOT Vmax 0.75 m/s
--- NOTE | 2022-04-22 14:51 | DM INPTCON_ITS ---
Date of service: 04/22/22 Time of Service: 14:51 Diabetes Inpatient Consult Reason for Visit: dm DESCRIPTION/ASSESSMENT: Kailey was admitted after syncope at PCP office. PMH: DM1 since age 8, CAD, [place] (01/03/22), stent x 2. BMI 23- usual weight. Kailey and significant other state that she is a brittle diabetic with frequent hyper and hypoglycemia events. Home Dm meds: 20 units basalglar AM, 3-5 units debbie at meals. A1C: 7.7%. SO reports that he and his daughter administers insulin for Kailey due to her poor vision and being unable to correctly dose insulin. BLood sugars have become more controlled in recent months. Follows carb counting and generally does not eat any simple carbs- mostly home cooked meals at similar times every day. Following low salt diet with good intake since admit. INTERVENTION: Reviewed benefits of a CGM for tighter blood sugar control. Would like to pursue in outpatient setting. Recommend Ren 2 CGM with sensors and savings teller. PLAN: WIll follow up with ems educator Lucia Busch at [facility] Time Spent in Nutritional Counseling and Treatment: 30
--- NOTE | 2022-04-22 16:04 | PGE_ITS ---
Date of Service Date of service: 04/22/22 Time of Service: 16:04 Assessment and Plan Assessment and plan (1) Syncope: Status: Chronic Assessment and plan: Per clinic where the syncope occurred, the patient's BG was in 200s. Did have non-sustained Vtach this morning. Will observe one more night - should it recur, would consult cardiology/EP. EF preserved on the echo. (2) Nonsustained paroxysmal ventricular tachycardia: Status: Acute Assessment and plan: During sleep. As above (3) IDDM (insulin dependent diabetes mellitus): Status: Chronic Assessment and plan: Continue basal bolus insulin. (4) CAD (coronary artery disease), [place] coronary artery: Status: Chronic Assessment and plan: Outpatient follow up (5) DVT prophylaxis: Status: Acute Assessment and plan: SC enoxaparin (6) Discharge planning issues: Status: Acute Assessment and plan: Full code Anticipate discharge home tomorrow with a cardiac event recorder C/s diabetes education - would benefit from a CGM. Subjective Subjective Interval history since last seen: Feels better. Abdominal discomfort resolves. Reports her chronic back pain last night, requiring tylenol. Denies dizziness, chest pain, shortness of breath, palpitations, nausea. Had an episode of 7 beats of vtach while sleeping this morning - asymptomatic. No recurrences so far today. Exam Narrative Exam Narrative: General: Pleasant middle-aged female who is A&Ox3, appears comfortable HEENT: EOMI, MMM Heart: RRR, no m/r/g Lungs: CTAB Abdomen: soft, nontender, nondistended Extremities: trace edema BLEs. Objective Last Vital Signs Temp 36 C L 04/22/22 15:24 Pulse 73 04/22/22 15:24 Resp 16 04/22/22 15:24 BP 116/69 04/22/22 15:24 Pulse Ox 94 04/22/22 15:24 Laboratory Results - last 24 hr 04/21/22 04/21/22 04/21/22 15:56 19:18 19:46 Plt Count Sodium Potassium Chloride Carbon Dioxide Anion Gap BUN Creatinine Est GFR (CKD-EPI 2020) Glucose Hemoglobin A1c Calcium Magnesium Troponin I < 50 Cancelled COVID-19 Source Nasal/Nares SARS-CoV-2 (PCR) Negative 04/22/22 04/22/22 04/22/22 07:00 07:00 12:15 Plt Count 170 Sodium 137 Potassium 4.2 Chloride 99 Carbon Dioxide 28.8 Anion Gap 9.2 BUN 17 Creatinine 0.8 Est GFR (CKD-EPI 2020) 90.83 Glucose 187 H Hemoglobin A1c 7.7 H Calcium 9.6 Magnesium 1.8 Troponin I COVID-19 Source SARS-CoV-2 (PCR)
--- NOTE | 2022-04-22 17:07 | CHAPLAIN ---
Kailey was in the chair, with the tv on when I visited. She was pleasant and engaged in a conversation. She said she's been in touch with family and had visitors today. She was kept busy by having lots of tests today, she said. I will continue to visit.
[2022-04-22] MEDS: Enoxaparin 40 MG/0.4 ML SYR SC (21:07)
[2022-04-23 01:23] VITALS: PULSE 78
[2022-04-23 03:34] VITALS: BP 111/67; PULSE 75; RESP 18; TEMP 36.7; O2SAT 100
[2022-04-23 07:00] VITALS: PULSE 86
[2022-04-23 07:16] LABS: Anion Gap 5.7 mmol/L (3-11); BUN 18 mg/dL (7-18); CO2 29.3 mmol/L (21.0-32.0); CREATININE 0.7 mg/dL (0.55-1.02); Calcium 8.9 mg/dL (8.5-10.1); Chloride 101 mmol/L (98-107); Estimated GFR 106.62 (mL/min/1.73m2); Glucose 285 mg/dL (74-106); Magnesium 1.7 mg/dL (1.8-2.4); Potassium 4.4 mmol/L (3.5-5.1); Sodium 136 mmol/L (136-145)
[2022-04-23 08:14] VITALS: BP 101/65; PULSE 77; RESP 17; TEMP 36.5; O2SAT 99
[2022-04-23] MEDS: Insulin Aspart 300 UNITS/3 ML PEN SC ×4 (09:02→12:36)
[2022-04-23] MEDS: Atorvastatin 40 MG TAB 80 MG PO (09:04)
[2022-04-23] MEDS: Aspirin 81 MG CHEW PO (09:04)
[2022-04-23] MEDS: Cholecalciferol (Vitamin D3) 1,000 UNIT TAB 1000 UNITS PO (09:05)
[2022-04-23] MEDS: Clopidogrel 75 MG TAB PO (09:05)
[2022-04-23] MEDS: Normal Saline Flush 10 ML SYR IVP (09:06)
[2022-04-23 09:14] VITALS: BP 108/64; PULSE 76
[2022-04-23] MEDS: Metoprolol CR 50 MG TABCR PO (09:15)
[2022-04-23] MEDS: Insulin Glargine 300 UNITS/3 ML PEN 20 UNITS SC (09:16)
--- NOTE | 2022-04-23 09:55 | CMPROGNOTE_ITS ---
- If Service Date Differs Date of service: 04/23/22 Time of Service: 09:55 Care Management Progress Note S/O: Kailey is sitting up in bed, visiting with her s/o Delano. Anticipate, Kailey will be discharged home today with a cardiac event recorder. Per DM educator Kathy, Kailey could benefit from a CGM monitor to help better manage her diabetes. Kathy will coordinate through Kailey's PCP. A: 47 year old female admitted to [facility] on 04/21/22 for Syncope P: Kailey's blood sugars are being closely monitored and she is on telemetry. Anticipate, Kailey will return home when ready per MD. She will need outpatient follow up appointments with Dr. Diaz(Cardiology) and her PCP. She will transport via [facility] private vehicle.
--- NOTE | 2022-04-23 10:55 | W.PM.DS.N ---
Date of service: 04/23/22 Time of Service: 10:55 DS: Diagnosis Discharge Diagnosis (1) Syncope: Status: Chronic (2) Nonsustained paroxysmal ventricular tachycardia: Status: Acute (3) IDDM (insulin dependent diabetes mellitus): Status: Chronic (4) CAD (coronary artery disease), [place] coronary artery: Status: Chronic (5) Hypomagnesemia: Status: Acute Discharge Plan Disposition Patient Disposition: HOME Condition: Stable Discharge Details Reason For Visit: Syncope Admit Date/Time: 04/21/22 16:20 Admit Provider: Josh Garnica Attending Provider: Josh Garnica Primary Care Provider: Jose Pittman Hospital Course Hospital Course: Ms Hernandez is a 47 year old female with PMHx of brittle IDDM, as well as h/o CAD, HTN, CKD 1, diabetic retinopathy, neurogenic bladder, who was observed on [facility] hospitalist service from 04/21/22 until 04/23/22 after a syncopal episode while seated in the waiting room at the doctor's office. This was not a hypoglycemic event - her blood sugar at the time was in 270s. The patient ruled out for acute coronary syndrome. She did not have a recurrence of syncope on this admission. Her telemetry revealed one run of 7 beats of VTach while she was asleep, of which she was asymptomatic. Her magnesium was low and was repleted. Echocardiogram was done and showed LVEF of 60%, normal wall motion, no hemodynamically significant valvular disease. Etiology of this syncope has not been clearly established, so the patient is being discharged home with a cardiac event recorder to ensure that she does not have recurrence of Vtach or another arrhythmia. It is possible she had a vagal event in light of known autonomic dysfunction as well. She should follow up with her PCP in 1-2 weeks. Additionally, diabetic education is contacting the patient's PCP's office to ensure she gets a continuous glucose monitor. Care for patient as well as completion of her discharge summary on day of discharge took 45 minutes. Home Meds and New Rx's Prescriptions: New magnesium oxide 400 mg (241.3 mg magnesium) tablet 400 mg PO DAILY Qty: 14 0RF Continued albuterol sulfate 2.5 mg /3 mL (0.083 %) solution for nebulization 2.5 mg inhalation Q8H PRN (DME) Ketostix Strip See Rx Instructions .Route Rx Instructions: As directed glucagon 1 mg kit subcut PRN aspirin [Children's Aspirin] 81 mg tablet,chewable 81 mg PO DAILY albuterol sulfate [ProAir HFA] 90 mcg/actuation HFA aerosol inhaler 2 puff inhalation Q6H PRN metoprolol succinate 50 mg tablet extended release 24 hr 50 mg PO DAILY Label Comments: Take 1 tablet by mouth once a day clopidogrel [Plavix] 75 mg tablet 75 mg PO DAILY Label Comments: Take 1 tablet by mouth once a day cholecalciferol (vitamin D3) 25 mcg (1,000 unit) tablet 25 mcg PO DAILY Label Comments: TAKE ONE-HALF TABLET BY MOUTH TWICE A DAY atorvastatin 80 mg tablet 80 mg PO DAILY Label Comments: Take 1 tablet by mouth every evening insulin glargine [Basaglar KwikPen U-100 Insulin] 100 unit/mL (3 mL) insulin pen 20 unit SUBCUT DAILY Label Comments: INJECT 22 UNITS UNDER THE SKIN EVERY MORNING insulin aspart U-100 [Novolog Flexpen U-100 Insulin] 100 unit/mL (3 mL) insulin pen See Rx Instructions .ROUTE .COMPLEX Label Comments: INJECT BASED ON CARBS AT A RATION OF 1:10 GIVE AND CORRECT FOR BG >150 BASED ON ISF 1:25 Rx Instructions: per sliding before meals. nitroglycerin 0.4 mg Tablet, Sublingual 0.4 mg sublingual PRN PRN Discharge Instructions Instructions: Syncope (DC) Additional Instructions: Return to the hospital with any more fainting events, if you have fever, bleeding, chest pain, or shortness of breath. Follow up with your PCP and with diabetes education for a continuous glucose monitor. Stand Alone Forms: Nursing Discharge Form Referrals: Jose Pittman [Primary Care Provider] - 05/02/22 3:45 pm Activity:: Activity as Tolerated Equipment/Supplies:: cardiac event recorder Diet:: Carb Counting Discharge Orders Discharge Orders: Discharge Order (Routine); Ordered 04/23/22 Ordered By: Iwona Oconnor Other Ambulatory Orders: Cardiac Event Recorder (Routine) Timeframe: 1 Day Facility: [facility] - Location: Respiratory Therapy Ordered By: Iwona Oconnor Discharge Data Discharge Date/Time-TO BE ENTERED AT DEPARTURE: 04/23/22 13:48 DS: Summary Time Spent with Patient providing and/or coordinating discharge services: Greater than 30 minutes Status at Discharge Functional status at discharge: independent ambulation Overall status at discharge: patient is back to baseline Mental Status: mental status grossly normal Speech and Movement: speech and movement normal Mood: congruent mood Affect: normal affect Exam Narrative Exam Narrative: General: Pleasant middle-aged female who is A&Ox3, appears comfortable HEENT: EOMI, MMM Heart: RRR, no m/r/g Lungs: CTAB Abdomen: soft, nontender, nondistended Extremities: trace edema BLEs. Psych Mental Status: mental status grossly normal Speech and Movement: speech and movement normal Mood: congruent mood Affect: normal affect DS: Data Vitals/I&O Vitals and I&O: Vital Signs Temperature 36.5 C 04/23/22 08:14 Temperature Source Tympanic 04/23/22 08:14 Pulse 76 04/23/22 09:14 Pulse Rhythm Regular 04/23/22 03:15 Pulse 63 04/21/22 17:16 Respiratory Rate 17 04/23/22 08:14 Respiratory Effort 04/23/22 03:15 Respiratory Depth Normal 04/23/22 03:15 Respiratory Pattern Normal 04/23/22 03:15 Blood Pressure 108/64 04/23/22 09:14 Blood Pressure Mean 61 04/21/22 17:16 Blood Pressure Position Supine 04/21/22 10:15 Pulse Oximetry 99 04/23/22 08:14 Oxygen Delivery Method Room Air 04/23/22 08:14 Oxygen Flow Rate 0 04/23/22 08:14 Pain Level 0 04/23/22 08:14 Comment 04/21/22 18:12 Intake & Output 04/22/22 04/22/22 04/23/22 11:59 23:59 11:59 Intake Total 720 / 720 200 / 200 Balance 720 / 720 200 / 200 Weight 61.4 kg 61.8 kg Intake: Oral 720 / 720 200 / 200 Other: Urine Color Yellow Urine Appearance Clear Urine Odor None Comment voids independently in toilet patient was scanned for 743, she voided in toilet and was rescanned for 0 Voiding Methods Toilet Data Completed and Pending Completed studies during hospitalization [Text1]: CXR: No acute? findings. CT abdomen/pelvis: Bilateral nonobstructing renal calculi.? Increased stool.? No acute abnormality. Echo; Normal left ventricular wall thickness and chamber size.? Estimated ejection fraction is 60%.? Wall motion is normal Normal right ventricular size and systolic function Both atria are normal in size There is no structural or hemodynamically significant valvular disease Labs on day of discharge: Labs from last 24 hours 04/23/22 04/22/22 06:46 12:15 Sodium 136 137 Potassium 4.4 4.2 Chloride 101 99 Carbon Dioxide 29.3 28.8 Anion Gap 5.7 9.2 BUN 18 17 Creatinine 0.7 0.8 Est GFR (CKD-EPI 2020) 106.62 90.83 Glucose 285 H 187 H Calcium 8.9 9.6 Magnesium 1.7 L 1.8 PFSH All Active Problems (Updated 04/23/22 @ 11:01 by Iwona Oconnor MD) Hypomagnesemia (Acute) Discharge planning issues (Acute) DVT prophylaxis (Acute) Nonsustained paroxysmal ventricular tachycardia (Acute) IDDM (insulin dependent diabetes mellitus) (Chronic) Syncope (Chronic) CAD (coronary artery disease), [place] coronary artery (Chronic) Cancer of cervix (Acute) Neurogenic bladder (Acute) Vitamin D deficiency (Acute) History of deep vein thrombophlebitis of lower extremity (Acute) Neuropathy (Acute) Hyperkalemia (Acute) Chronic kidney disease, stage I (Acute) Hearing loss (Acute) Blind right eye (Acute) Visual loss (Acute) Acute pain in female pelvis (Acute) Asthma (Chronic) GERD (gastroesophageal reflux disease) (Chronic) Cellulitis of foot (Acute) Elevated troponin (Acute) Diabetes (Chronic) Social History Smoking/Tobacco Use Status: Never Smoking risk assessment performed?: Yes Alcohol Intake: never Drug use: Never Substance use type: does not use Seatbelt use: always Do you feel safe at home: Yes Do you feel safe in your relationship?: Yes Female Reproductive History Menstrual Menopause type: surgical History History 14 Para Hx # Term Pregnancies Multiple births Hx # Pregnancies 1 Ectopic pregnancies AB induced Hx Number of Living Children AB spontaneous
[2022-04-23 11:21] VITALS: BP 98/63; PULSE 77; RESP 17; TEMP 36.5; O2SAT 99
--- NOTE | 2022-04-23 14:56 | CMDISCH_ITS ---
- If Service Date Differs Date of service: 04/23/22 Time of Service: 12:00 LACE Index Scoring Tool - Questions: Length of Stay (in days): 2 Acuity (Admit via E.D.?): Yes Comorbidities: Diabetes w/o Complication E.D. Visits: 4 - Answers: Total Score: 10 Risk of Readmission: High Risk Care Management Discharge Reason for Hospitalization: Syncope Discharge Plan: Kailey is discharge home via RCT shuttle. New RX for Magnesium is transmitted to [facility]. Kailey will follow up with her PCP on 05/02/22, as scheduled. patron attendant is ordered prior to discharge. Per MD. Kailey should return to the hospital if she developes a fever, bleeding, chest pain, or shortness of breath or has anymore fainting episodes. Follow up with your PCP and with diabetes education for a continuous glucose monitor. Patient/Family Education Needs: Review discharge instructions, limitations, medications and plan to follow up with community providers. Review ask me three.
== END 2022-04-23 13:48 | disposition home or self-care (01) ==
LOC: ER 10:35 → MS 17:38
PROVIDERS: Internal Medicine; Admitting Provider Internal Medicine; Emergency Provider Student in an Organized Health Care Education/Training Program; PCP Physician Assistant; Visit Provider Internal Medicine
DX: R55 Syncope and collapse (principal); I47.2 Ventricular tachycardia; E11.22 Type 2 diabetes mellitus with diabetic chronic kidney disease; E11.40 Type 2 diabetes mellitus with diabetic neuropathy, unspecified; E11.319 Type 2 diabetes mellitus with unspecified diabetic retinopathy without macular edema; I25.10 Atherosclerotic heart disease of native coronary artery without angina pectoris; I25.2 Old myocardial infarction; Z95.5 Presence of coronary angioplasty implant and graft; E83.42 Hypomagnesemia; N31.9 Neuromuscular dysfunction of bladder, unspecified; N18.1 Chronic kidney disease, stage 1; I12.9 Hypertensive chronic kidney disease with stage 1 through stage 4 chronic kidney disease, or unspecified chronic kidney disease; J45.909 Unspecified asthma, uncomplicated; Z86.718 Personal history of other venous thrombosis and embolism; K21.9 Gastro-esophageal reflux disease without esophagitis; Z79.4 Long term (current) use of insulin
CPT/HCPCS: 36415; 80048; 80053; 83690; 87635; 93005; 93270; 93306; 96360; 96372; 99285; J1650; 71045; 74177; 81003; 83036; 83735; 84484; 85025; 85049; 85379; 93010; 99217; 99219; 99225; G0378; J3490

== ENCOUNTER 2022-04-23 15:00 | Outpatient (CLI) | payer MEDICARE, MEDICAID, SELFPAY | END 2022-04-23 15:01 | disposition home or self-care (01) | LOC: RT 15:01 | PROVIDERS: PCP Physician Assistant; Visit Provider Internal Medicine | DX: I47.2 Ventricular tachycardia (principal); R55 Syncope and collapse | CPT/HCPCS: 93270 ==

== ENCOUNTER 2022-05-26 15:16 | Outpatient (CLI) | payer MEDICARE, MEDICAID, SELFPAY ==
--- NOTE | 2022-05-26 15:38 | W.CARDEVENT ---
Date of service: 05/26/22 Time of Service: 15:39 Cardiac Event Recorder Referring Provider:: Jose Pittman Indications:: Syncope Cardiac Event Note: This is a cardiac event monitor. Patient was monitored from April 23 through May 16, 2020 it Predominant rhythm was sinus. Average heart rate was 79. Maximum heart rate was 108 There were no significant atrial or ventricular dysrhythmias There was no high-grade AV block, no pauses greater than 3 seconds, no atrial fibrillation There were no apparent patient symptoms
== END 2022-05-26 15:17 | disposition home or self-care (01) ==
LOC: CARDOPNVT 15:16
PROVIDERS: PCP Physician Assistant; Visit Provider Internal Medicine Cardiovascular Disease
DX: R55 Syncope and collapse (principal)
CPT/HCPCS: 93272

== ENCOUNTER 2022-06-24 13:31 | Emergency (ER) | payer MEDICARE, MEDICAID, SELFPAY ==
[2022-06-24] VITALS (24 sets, daily range): BP systolic 91–143; BP diastolic 45–82; PULSE 70–88; RESP 11–33; TEMP 36.6; O2SAT 79–100
--- NOTE | 2022-06-24 13:30 | RT.EKG_ITS ---
APPROVED REPORT Exam: Resting ECG Reason for Exam: Dizzyness Patient Location: E HR:78 bpm ECG Measurements Heart Rate 78 AXIS AK 137 P 68 QRSd 112 QRS -7 QT 364 T 63 QTc 414 Conclusion Sinus rhythm...normal P axis, V-rate 60- 99
--- NOTE | 2022-06-24 13:45 | ED.GENADUL_ITS ---
Discharge Plan Disposition Patient Disposition: Home Condition: Improving Discharge Details Clinical Impression: Diabetes, UTI (urinary tract infection) Primary Care Provider: Jose Pittman ED Provider: Carlos Leone Home Meds and New Rx's Prescriptions: New cephalexin 500 mg capsule 500 mg PO TID 7 Days Qty: 21 0RF Continued albuterol sulfate 2.5 mg /3 mL (0.083 %) solution for nebulization 2.5 mg inhalation Q8H PRN (DME) Ketostix Strip See Rx Instructions .Route Rx Instructions: As directed glucagon 1 mg kit subcut PRN aspirin [Children's Aspirin] 81 mg tablet,chewable 81 mg PO DAILY albuterol sulfate [ProAir HFA] 90 mcg/actuation HFA aerosol inhaler 2 puff inhalation Q6H PRN metoprolol succinate 50 mg tablet extended release 24 hr 50 mg PO DAILY Label Comments: Take 1 tablet by mouth once a day clopidogrel [Plavix] 75 mg tablet 75 mg PO DAILY Label Comments: Take 1 tablet by mouth once a day cholecalciferol (vitamin D3) 25 mcg (1,000 unit) tablet 25 mcg PO DAILY Label Comments: TAKE ONE-HALF TABLET BY MOUTH TWICE A DAY atorvastatin 80 mg tablet 80 mg PO DAILY Label Comments: Take 1 tablet by mouth every evening insulin glargine [Basaglar KwikPen U-100 Insulin] 100 unit/mL (3 mL) insulin pen 20 unit SUBCUT DAILY Label Comments: INJECT 22 UNITS UNDER THE SKIN EVERY MORNING insulin aspart U-100 [Novolog Flexpen U-100 Insulin] 100 unit/mL (3 mL) in sulin pen See Rx Instructions .ROUTE .COMPLEX Label Comments: INJECT BASED ON CARBS AT A RATION OF 1:10 GIVE AND CORRECT FOR BG >150 BASED ON ISF 1:25 Rx Instructions: per sliding before meals. nitroglycerin 0.4 mg Tablet, Sublingual 0.4 mg sublingual PRN PRN magnesium oxide 400 mg (241.3 mg magnesium) tablet 400 mg PO DAILY Qty: 14 0RF Discharge Instructions Instructions: Urinary Tract Infection in Women (ED) Additional Instructions: We have asked our care management team to arrange a follow-up for you in audiology clinic. Take antibiotics as prescribed, next dose will be tomorrow morning. Home to rest this evening. Continue your routine medications and routine. Return to the emergency department for any acute concerns. Medical Decision Making This is a 47-year-old female presents from home via EMS. She states she woke up feeling at baseline, this morning her daughter helped her check her blood sugar which was approximately 375 for which she administered 4 units of insulin and had some food. She states Nexium she remembers she had people shaking her awake on her bed and believes that she passed out. She denies chest pain or he adache. She has no focal motor/neurologic deficits. She states she recently has been well. She has a history of syncope in the past. On arrival the patient is alert and interactive with a blood pressure 143/66. She has no focal neurologic deficits and is in no distress. Review of records reveals admission for syncopal event in April of this past year. This included echocardiogram with no significant structural abnormalities. She also underwent a cardiac event monitor: Patient was monitored from April 23 through May 16, 2020 it Predominant rhythm was sinus.? Average heart rate was 79.? Maximum heart rate was 108. There were no significant atrial or ventricular dysrhythmias. There was no high-grade AV block, no pauses greater than 3 seconds, no atrial fibrillation. Today patient is improved by the time of arrival. Orthostatic vital signs do not reveal significant difference. IV is established, fluids initiated. Laboratories note an unremarkable CBC, chemistries with reassuring electrolytes, BUN 19 and creatinine 1.0. LFTs unremarkable. Troponin is negative. Urinalysis with 5-10 white cells, bacteria present and leuk esterase present. Culture is pending. Patient given 1 g ceftriaxone in the ER. She is observed with improvement. We will place her on a course of Keflex for early UTI. Patient notes ongoing difficulty with hearing and requests audiology referral which I do feel is reasonable. Sign Out No HPI General Mode of arrival: EMS . Date/Time Provider Initiated Documentation: 06/24/22 14:15 . Limitations to Documentation: no limitations . Information obtained by: patient and EMS . History of Present Illness 47 year old F presents to the emergency department with the chief complaint of Weakness and question syncope, described as moderate, Patient reports no radiation. Patient started experiencing this minute(s) and it has been other (Improving). No relieving factors improve symptom(s), Other factors that worsen symptoms (Sitting upright/standing) . Patient notes weakness; denies confusion, chest pain, headaches, nausea/vomiting and shortness of breath. Patient did receive the following treatments prior to arrival, none Related Data Home Medications Medication Instructions Recorded Confirmed cholecalciferol (vitamin D3) 25 25 mcg PO DAILY 01/12/22 04/21/22 mcg (1,000 unit) tablet clopidogrel 75 mg tablet (Plavix) 75 mg PO DAILY 01/12/22 04/21/22 metoprolol succinate 50 mg 50 mg PO DAILY 01/12/22 04/21/22 tablet,extended release 24 hr acetone (urine) test (Ketostix 01/29/22 03/18/22 strips) albuterol sulfate 2.5 mg/3 mL 2.5 mg inhalation Q8H PRN 01/29/22 04/21/22 (0.083 %) solution for nebulization albuterol sulfate 90 mcg/actuation 2 puff inhalation Q6H PRN 01/29/22 04/21/22 aerosol inhaler (ProAir HFA) aspirin 81 mg chewable tablet 81 mg PO DAILY 01/29/22 04/21/22 (Children's Aspirin) glucagon 1 mg injection kit mg subcut PRN 01/29/22 03/18/22 atorvastatin 80 mg tablet 80 mg PO DAILY 02/22/22 04/21/22 insulin aspart U-100 100 unit/mL See Rx Instructions .Route .COMPLEX 02/22/22 04/21/22 (3 mL) subcutaneous pen (Novolog Flexpen U-100 Insulin aspart) insulin glargine 100 unit/mL (3 20 unit subcut DAILY 02/22/22 04/21/22 mL) subcutaneous pen (Basaglar KwikPen U-100 Insulin) nitroglycerin 0.4 mg sublingual 0.4 mg sublingual PRN PRN 04/21/22 04/21/22 tablet magnesium oxide 400 mg (241.3 mg 400 mg PO DAILY #14 tabs 04/23/22 magnesium) tablet cephalexin 500 mg capsule 500 mg PO TID 7 days #21 caps 06/24/22 Previous Rx's Medication Instructions Recorded magnesium oxide 400 mg (241.3 mg 400 mg PO DAILY #14 tabs 04/23/22 magnesium) tablet cephalexin 500 mg capsule 500 mg PO TID 7 days #21 caps 06/24/22 Allergies Allergy/AdvReac Type Severity Reaction Status Date / Time No Known Allergies Allergy Verified 03/18/22 14:10 General Stated Complaint: Dizzy/Sync MITCHELL: 3 Review of Systems Narrative: States blood sugar was greater than 300 this morning and took insulin. No chest pain, difficulty breathing, abdominal pain. Eating and drinking normally she states. 8 systems were reviewed and otherwise negative. History of syncope in the past. [facility] All Active Problems (Updated 06/24/22 @ 17:36 by aCrlos Leone MD) Syncope (Chronic) UTI (urinary tract infection) (Acute) Hypomagnesemia (Acute) Nonsustained paroxysmal ventricular tachycardia (Acute) IDDM (insulin dependent diabetes mellitus) (Chronic) Syncope (Chronic) CAD (coronary artery disease), [place] coronary artery (Chronic) Cancer of cervix (Acute) Neurogenic bladder (Acute) Vitamin D deficiency (Acute) History of deep vein thrombophlebitis of lower extremity (Acute) Neuropathy (Acute) Hyperkalemia (Acute) Chronic kidney disease, stage I (Acute) Hearing loss (Acute) Blind right eye (Acute) Visual loss (Acute) Acute pain in female pelvis (Acute) Asthma (Chronic) GERD (gastroesophageal reflux disease) (Chronic) Cellulitis of foot (Acute) Elevated troponin (Acute) Diabetes (Chronic) Social History Smoking/Tobacco Use Status: Never Smoking risk assessment performed?: Yes Alcohol Intake: never Drug use: Never Substance use type: does not use Seatbelt use: always Do you feel safe at home: Yes Do you feel safe in your relationship?: Yes Female Reproductive History Menstrual Menopause type: surgical History History 14 Para Hx # Term Pregnancies Multiple births Hx # Pregnancies 1 Ectopic pregnancies AB induced Hx Number of Living Children AB spontaneous Exam Narrative Exam Narrative: GEN: awake, alert, oriented 3. Pleasant, well groomed, interactive. HEAD: Normocephalic, atraumatic ENT: Mucous membranes dry, oropharynx unremarkable, External ear exam unremarkable EYES: PERRL, EOMI NECK: Full ROM, no COLUMBA, no menigismus CHEST/RESP: Nontender, clear to auscultation bilateral, no wheeze/rhonchi/rales CARDIOVASCULAR: RRR, no murmur, rub idalmis. 1+ Rad pulse bilateral ABDOMEN: Soft, nontender, no mass. +Bowel sounds EXT: Full ROM, no edema, no rash Neuro: Grossly normal neurologic exam, conversant, interactive. Psych: Speech fluent, thoughts congruent, affect normal Course Vital Signs Vital signs: Vital Signs Temperature 36.6 C 06/24/22 13:36 Pulse 83 06/24/22 13:36 Respiratory Rate 14 06/24/22 13:36 Blood Pressure 143/66 H 06/24/22 13:36 Pulse Oximetry 100 06/24/22 13:36 Temperature 36.6 C 06/24/22 13:36 Temperature Source Temporal Artery Scan 06/24/22 13:36 Pulse 83 06/24/22 13:36 Respiratory Rate 14 06/24/22 13:36 Blood Pressure 143/66 H 06/24/22 13:36 Blood Pressure Position Supine 06/24/22 13:36 Pulse Oximetry 100 06/24/22 13:36 Oxygen Delivery Method Room Air 06/24/22 13:36 Oxygen Flow Rate 0 06/24/22 13:36 Pain Level 0 06/24/22 13:36
[2022-06-24 14:05] LABS: Abs Immature Grans 0.01 10^3/uL (0.0-0.06); Absolute Basophil Count 0.02 10^3/uL (0.0-0.2); Absolute Eosinophil Count 0.06 10^3/uL (0.0-0.7); Absolute Lymphocyte Count 1.81 10^3/uL (1.2-3.4); Absolute Monocyte Count 0.72 10^3/uL (0.1-0.8); Absolute Neutrophil Count 3.17 10^3/uL (1.2-6.7); Basophils % 0.3; HCT 40.8 % (36.0-46.0); HGB 13.9 g/dL (11.2-15.7); Immature Grans % 0.2; Lymphocytes % 31.3; MCH 31.3 pg (27.0-33.0); MCHC 34.1 % (32.0-36.0); MCV 92 fL (80-95); Monocytes % 12.4; Neutrophils % 54.8; Platelet Count 191 10^3/uL (130-400); RBC 4.44 10^6/uL (3.93-5.22); RDW 12.4 % (11.7-14.6); WBC 5.79 10^3/uL (4.4-10.8)
[2022-06-24 14:40] LABS: ALT 47 U/L (14-59); AST 32 U/L (15-37); Albumin 4.3 g/dL (3.4-5.0); Alkaline Phosphatase 107 U/L (46-116); Anion Gap 4.7 mmol/L (3-11); BUN 19 mg/dL (7-18); Bilirubin, Total 0.7 mg/dL (0.2-1.0); CO2 33.3 mmol/L (21.0-32.0); Chloride 101 mmol/L (98-107); Estimated GFR 69.49 (mL/min/1.73m2); Glucose 90 mg/dL (74-106); Magnesium 2.1 mg/dL (1.8-2.4); Potassium 4.5 mmol/L (3.5-5.1); Sodium 139 mmol/L (136-145); Total Protein 8.1 g/dL (6.4-8.2); Troponin I < 50 ng/L (<or=60)
[2022-06-24] MEDS: Normal Saline 1,000 ML 1000 ML IV (14:42)
--- NOTE | 2022-06-24 15:11 | DI.RAD_ITS ---
Exam(s) XR CHEST 2V PA LATERAL EXAM: XR CHEST 2V PA LATERAL CLINICAL HISTORY: NEAR SYNCOPE TECHNIQUE: 2D digital imaging was performed of the chest. Two images were obtained. PA and lateral views were obtained. COMPARISON: CR XR PORTABLE CHEST AP from 04/21/2022 FINDINGS: MEDIASTINUM: Normal. HEART: Normal. PULMONARY VASCULATURE: Normal. LUNGS: Clear. PLEURAL SPACE: No pleural effusion or pneumothorax. BONE:Within normal limits for the patient's age. OTHER FINDINGS:Normal. IMPRESSION: No acute pulmonary findings. DATA REPOSITORY: RADIATION DOSE DELIVERED:
[2022-06-24 15:39] LABS: Bilirubin Negative (Negative); Blood Negative (Negative); Clarity Clear (Clear); Glucose 250 mg/dL (Negative); Ketones Negative (Negative); Leukocyte Esterase Trace (Negative); Nitrite Negative (Negative); Urobilinogen 0.2 EU/dL (Up TO 0.2)
[2022-06-24 15:47] LABS: Bacteria Few HPF (Negative); C & S Indicated? Yes; Casts Negative LPF (Negative); Crystals Negative HPF (Negative); Epithelial Cells Few HPF (Negative); Mucus Negative (Negative); RBC 0-2 HPF (0-2)
--- NOTE | 2022-06-24 16:15 | NUR.NOTE ---
Nursing Note: Referral given to Care Management for trouble with hearing next available with Audiology.
[2022-06-24] MEDS: cefTRIAXone 1 GM/50 ML BAG IVPB (16:33)
[2022-06-24 17:20] LABS: Troponin I < 50 ng/L (<or=60)
== END 2022-06-24 18:04 | disposition home or self-care (01) ==
PROVIDERS: Emergency Provider Emergency Medicine; PCP Physician Assistant
DX: N39.0 Urinary tract infection, site not specified (principal); E11.9 Type 2 diabetes mellitus without complications; Z79.4 Long term (current) use of insulin
CPT/HCPCS: 36415; 80053; 93005; 96361; 96365; 99284; 71046; 81003; 81015; 83735; 84484; 85025; 87086; 93010; 99285; J0696

== ENCOUNTER → 2022-07-08 13:19 | Outpatient (BNVA) | payer MEDICARE, MEDICAID, SELFPAY | PROVIDERS: PCP Physician Assistant; Referring Provider Physician Assistant; Visit Provider Internal Medicine Cardiovascular Disease | DX: I25.10 Atherosclerotic heart disease of native coronary artery without angina pectoris (principal); I25.2 Old myocardial infarction; Z95.5 Presence of coronary angioplasty implant and graft; Z79.01 Long term (current) use of anticoagulants | CPT/HCPCS: 99214; 99213 ==

== ENCOUNTER 2022-07-22 19:12 | Emergency (ER) | payer MEDICARE, MEDICAID, SELFPAY ==
[2022-07-22] VITALS (15 sets, daily range): BP systolic 104–149; BP diastolic 49–63; PULSE 67–81; RESP 12–26; TEMP 36.3; O2SAT 96–100
--- NOTE | 2022-07-22 19:00 | RT.EKG_ITS ---
APPROVED REPORT Exam: Resting ECG Reason for Exam: CHEST PAIN Patient Location: E HR:72 bpm ECG Measurements Heart Rate 72 AXIS DE 139 P 70 QRSd 113 QRS 21 QT 385 T 62 QTc 421 Conclusion Sinus rhythm...normal P axis, V-rate 60- 99 Incomplete right bundle branch block...QRSd >112, terminal axis(90,270) Low voltage, extremity and precordial leads...extremity<0.5mV, precordial<1.0mV
--- NOTE | 2022-07-22 19:15 | DI.RAD_ITS ---
Exam(s) XR CHEST 2V PA LATERAL EXAM: XR CHEST 2V PA LATERAL CLINICAL HISTORY: chest pain. TECHNIQUE: 2D digital imaging was performed. COMPARISON: CR XR CHEST 2V PA LATERAL from 06/24/2022 FINDINGS: 2 views: Chest leads in place. Heart size is normal. The mediastinum is not widened. Right coronary artery stent is again noted. Lungs are clear. No infiltrates nor pleural effusions. IMPRESSION: No acute pulmonary findings.Normal heart size. Right coronary artery stent. DATA REPOSITORY: RADIATION DOSE DELIVERED:
[2022-07-22 19:32] LABS: Abs Immature Grans 0.02 10^3/uL (0.0-0.06); Absolute Basophil Count 0.03 10^3/uL (0.0-0.2); Absolute Eosinophil Count 0.07 10^3/uL (0.0-0.7); Absolute Lymphocyte Count 1.95 10^3/uL (1.2-3.4); Absolute Monocyte Count 0.65 10^3/uL (0.1-0.8); Absolute Neutrophil Count 2.98 10^3/uL (1.2-6.7); Basophils % 0.5; Eosinophils % 1.2; HCT 38.2 % (36.0-46.0); HGB 12.9 g/dL (11.2-15.7); Immature Grans % 0.4; Lymphocytes % 34.2; MCH 31.5 pg (27.0-33.0); MCHC 33.8 % (32.0-36.0); MCV 93 fL (80-95); MPV 9.8 fL (8.0-11.0); Monocytes % 11.4; Neutrophils % 52.3; Platelet Count 197 10^3/uL (130-400); RBC 4.09 10^6/uL (3.93-5.22); RDW 12.7 % (11.7-14.6); RDW-SD 43.8 fL
[2022-07-22 19:47] LABS: PTT Activated 22.6 sec (21.0-27.5); Prothrombin Time 10.4 sec (9.3-11.0)
[2022-07-22 19:59] LABS: ALT 45 U/L (14-59); AST 32 U/L (15-37); Albumin 4.1 g/dL (3.4-5.0); Alkaline Phosphatase 118 U/L (46-116); Anion Gap 5.4 mmol/L (3-11); BUN 24 mg/dL (7-18); Bilirubin, Total 0.4 mg/dL (0.2-1.0); CO2 30.6 mmol/L (21.0-32.0); Calcium 9.5 mg/dL (8.5-10.1); Chloride 103 mmol/L (98-107); Estimated GFR 69.49 (mL/min/1.73m2); Glucose 78 mg/dL (74-106); Potassium 3.9 mmol/L (3.5-5.1); Sodium 139 mmol/L (136-145); TSH (W/Ref FT4) 0.84 uIU/mL (0.36-3.74); Troponin I < 50 ng/L (<or=60)
[2022-07-22 20:12] LABS: D-Dimer 581 ng/mlFEU (<500)
--- NOTE | 2022-07-22 20:15 | DI.CT_ITS ---
Exam(s) CT CHEST PE CTA EXAM: CT CHEST PE CTA CLINICAL HISTORY: pain, elevated dimer. TECHNIQUE: Imaging Protocol: CT angiography of the chest was performed using pulmonary embolus kishor col. Multi planar reconstructions were performed. CONTRAST MATERIAL: Intravenous: Omnipaque 350 Contrast volume: 100 cc COMPARISON: CT CT ABDOMEN PELVIS W from 04/21/2022 FINDINGS: CHEST: PULMONARY ARTERIES: There are no intraluminal filling defects to suggest acute pulmonary emboli. LUNGS: There are no infiltrates nor evidence of pulmonary infarction.. There are no pleural effusions . MEDIASTINUM: There is no hilar nor mediastinal adenopathy. Visualized thyroid unremarkable. CARDIAC: Heart size is upper normal. There is no pericardial effusion.Caliber of the thoracic aorta is within normal limits. There is no significant shift of the interventricular septum. PARTIALLY VISUALIZED UPPERMOST ABDOMEN: No adrenal masses. No splenomegaly. OSSEOUS: No significant osseous lesions.. IMPRESSION: 1. No evidence of acute pulmonary emboli. No evidence of pulmonary infarction.No pleural effusions. 2. No intrathoracic adenopathy. No infiltrates. RADIATION DOSE DELIVERED: 249.09mGy.cm Total DLP DATA REPOSITORY: All CT scans at this facility are submitted to the National Radiology Data Registry (NRDR) Dose Index Registry (DIR) with the [employer] (ACR). RADIATION OPTIMIZATION: All CT scans at this facility use at least one of these dose optimization te chniques: automated exposure control; mA and/or kV adjustment per patient size (includes targeted exa ms where dose is matched to clinical indication); or iterative reconstruction.
[2022-07-22 20:16] LABS: COVID-19 PCR Negative (Negative); Influenza A PCR Negative (Negative); Influenza B PCR Negative (Negative); RSV PCR Negative (Negative)
[2022-07-22 20:17] LABS: Source Nasopharynx
--- NOTE | 2022-07-22 20:55 | DI.VRAD_ITS ---
PROCEDURE INFORMATION: Exam: XR Chest Exam date and time: 07/22/2022 8:24 PM Age: 47 years old Clinical indication: Other: Chest pain; Prior surgery; Surgery date: 1-6 months; Patient HX: Mi in January, stent placed TECHNIQUE: Imaging protocol: Radiologic exam of the chest. Views: 2 views. COMPARISON: CR XR CHEST 2V PA LATERAL 06/24/2022 3:03 PM FINDINGS: Lungs: Mild chronic interstitial prominence. No consolidation. Pleural spaces: Unremarkable. No pleural effusion. No pneumothorax. Heart/Mediastinum: Unremarkable. No cardiomegaly. Bones/joints: Unremarkable. IMPRESSION: No acute findings. Dictated and Authenticated by: Billy Hernandez MD. Ordering:JOSE ARMANDO Moreno MD
[2022-07-22] MEDS: Omnipaque 350 MG/ML 100 ML BTL IJ (21:03)
[2022-07-22] MEDS: Normal Saline - Diluent 50 ML VIAL IV (21:04)
[2022-07-22] MEDS: Normal Saline Flush 10 ML SYR IVP (21:05)
--- NOTE | 2022-07-22 21:25 | DI.VRAD_ITS ---
PROCEDURE INFORMATION: Exam: CTA Chest With Contrast Exam date and time: 07/22/2022 9:09 PM Age: 47 years old Clinical indication: Other: Pain, elevated dimer; Prior surgery; Surgery date: 6+ months; Surgery type: Stent placement in January; Patient HX: Uterine CA, diabetic, hbp TECHNIQUE: Imaging protocol: Computed tomographic angiography of the chest with contrast. 3D rendering (Not supervised by radiologist): MIP and/or 3D reconstructed images were created by the technologist. Radiation optimization: All CT scans at this facility use at least one of these dose optimization techniques: automated exposure control; mA and/or kV adjustment per patient size (includes targeted exams where dose is matched to clinical indication); or iterative reconstruction. Contrast material: OMNIPAQUE 350; Contrast volume: 70 ml; Contrast route: INTRAVENOUS (IV); COMPARISON: CR XR CHEST 2V PA LATERAL 07/22/2022 8:24 PM FINDINGS: Mildly limited due to motion artifact Pulmonary arteries: No pulmonary emboli. Aorta: No aortic aneurysm. No aortic dissection. Lungs: No consolidation. No masses. Pleural spaces: Unremarkable. No pneumothorax. No pleural effusion. Heart: Unremarkable. No cardiomegaly. No pericardial effusion. Lymph nodes: Unremarkable. No enlarged lymph nodes. Bones/joints: Unremarkable. No acute fracture. Soft tissues: Unremarkable. Question mild esophageal thickening Question mild gastric and small bowel thickening in the visualized abdomen IMPRESSION: No large pulmonary emboli detected Mildly limited evaluation of the distal segmental and subsegmental branches due to motion artifact Mild gastric and small bowel thickening suspected. Correlate for gastroenteritis Dictated and Authenticated by: Billy Hernandez MD. Ordering:JOSE ARMANDO Moreno MD
--- NOTE | 2022-07-22 21:51 | ED.GENADUL_ITS ---
Discharge Plan Discharge Details Chief Complaint: Chest Pain Primary Care Provider: Jose Pittman ED Provider: Josh Rosenberg Home Meds and New Rx's Prescriptions: No Action albuterol sulfate 2.5 mg /3 mL (0.083 %) solution for nebulization 2.5 mg inhalation Q8H PRN (DME) Ketostix Strip See Rx Instructions .Route Rx Instructions: As directed glucagon 1 mg kit subcut PRN aspirin [Children's Aspirin] 81 mg tablet,chewable 81 mg PO DAILY albuterol sulfate [ProAir HFA] 90 mcg/actuation HFA aerosol inhaler 2 puff inhalation Q6H PRN metoprolol succinate 50 mg tablet extended release 24 hr 50 mg PO DAILY Label Comments: Take 1 tablet by mouth once a day clopidogrel [Plavix] 75 mg tablet 75 mg PO DAILY Label Comments: Take 1 tablet by mouth once a day cholecalciferol (vitamin D3) 25 mcg (1,000 unit) tablet 25 mcg PO DAILY Label Comments: TAKE ONE-HALF TABLET BY MOUTH TWICE A DAY atorvastatin 80 mg tablet 80 mg PO DAILY Label Comments: Take 1 tablet by mouth every evening insulin glargine [Basaglar KwikPen U-100 Insulin] 100 unit/mL (3 mL) insulin pen 20 unit SUBCUT DAILY Label Comments: INJECT 22 UNITS UNDER THE SKIN EVERY MORNING insulin aspart U-100 [Novolog Flexpen U-100 Insulin] 100 unit/mL (3 mL) insulin pen See Rx Instructions .ROUTE .COMPLEX Label Comments: INJECT BASED ON CARBS AT A RATION OF 1:10 GIVE AND CORRECT FOR BG >150 BASED ON ISF 1:25 Rx Instructions: per sliding before meals. nitroglycerin 0.4 mg Tablet, Sublingual 0.4 mg sublingual PRN PRN magnesium oxide 400 mg (241.3 mg magnesium) tablet 400 mg PO DAILY Qty: 14 0RF Medical Decision Making This is a 47-year-old female with a past with history of CAD, diabetes, cardiac stent placement last summer, chronic pain, GERD, asthma, presenting to the ER reporting that she began not feeling well in general today, has been using marijuana products over the past 48 hours, had a couple episodes of nausea and vomiting and after vomiting had some anterior chest pain. She reports the pain is worse with taking a deep breath. She denies recent illness, shortness of breath, abdominal pain, current nausea or vomiting, pain or swelling in her calves. Patient was given aspirin via EMS. Based upon her overall not feeling well earlier in the day, I do question if there could be a viral component to this with myalgias, also with her new use of marijuana this could be making her feel different than usual, etc. The chest pain began after episodes of vomiting, does not radiate, given that presentation, lower suspicion for ACS but given her past medical history, certainly need to rule out cardiac etiology. Clinically she appears well, nontoxic. Initial laboratory values reveal no evidence of leukocytosis, anemia, thrombocytopenia. Chest x-ray is unremarkable. D-dimer is elevated at 581, will pursue CTA of the chest. Electrolytes unremarkable. Creatinine 1.0 with a GFR of 69.49. Magnesium 2.0, troponin less than 50. TSH 0.84. COVID, flu, RSV negative. Discussed initial work-up with patient. She is relieved and reports that she is feeling much improvement. Denies any chest pain whatsoever. No difference in taking a deep breath. Denies any abdominal pain nausea or vomiting. Reports that her back pain appears to be near baseline. She is agreeable to awaiting a delta troponin. CT of the chest reveals no large pulmonary emboli detected, study was slightly limited. Also reveals mild gastric and small bowel thickening, correlate for gastroenteritis. This certainly could explain her episodes of nausea and vomiting earlier today. Patient remains asymptomatic and hemodynamically stable. Continues to await delta troponin. This documentation was generated using [employer] dictation system, please disregard any oddities of phrase or misspellings. Medical Records Medical records reviewed: Yes I reviewed the patient's medical records. Imaging Data Radiologic Study: Attestation: I personally reviewed and interpreted this imaging study as follows: Imaging: X-Ray Radiologist's impression: PROCEDURE INFORMATION: Exam: XR Chest Exam date and time: 07/22/2022 8:24 PM Age: 47 years old Clinical indication: Other: Chest pain; Prior surgery; Surgery date: 1-6 months; Patient HX: Mi in January, stent placed TECHNIQUE: Imaging protocol: Radiologic exam of the chest. Views: 2 views. COMPARISON: CR XR CHEST 2V PA LATERAL 06/24/2022 3:03 PM FINDINGS: Lungs: Mild chronic interstitial prominence. No consolidation. Pleural spaces: Unremarkable. No pleural effusion. No pneumothorax. Heart/Mediastinum: Unremarkable. No cardiomegaly. Bones/joints: Unremarkable. IMPRESSION: No acute findings. Radiologic Study #2: Attestation: I personally reviewed and interpreted this imaging study as follows: Imaging: CT Scan Radiologist's impression: PROCEDURE INFORMATION: Exam: CTA Chest With Contrast Exam date and time: 07/22/2022 9:09 PM Age: 47 years old Clinical indication: Other: Pain, elevated dimer; Prior surgery; Surgery date: 6+ months; Surgery type: Stent placement in January; Patient HX: Uterine CA, diabetic, hbp TECHNIQUE: Imaging protocol: Computed tomographic angiography of the chest with contrast. 3D rendering (Not supervised by radiologist): MIP and/or 3D reconstructed images were created by the technologist. Radiation optimization: All CT scans at this facility use at least one of these dose optimization techniques: automated exposure control; mA and/or kV adjustment per patient size (includes targeted exams where dose is matched to clinical indication); or iterative reconstruction. Contrast material: OMNIPAQUE 350; Contrast volume: 70 ml; Contrast route: INTRAVENOUS (IV); COMPARISON: CR XR CHEST 2V PA LATERAL 07/22/2022 8:24 PM FINDINGS: Mildly limited due to motion artifact Pulmonary arteries: No pulmonary emboli. Aorta: No aortic aneurysm. No aortic dissection. Lungs: No consolidation. No masses. Pleural spaces: Unremarkable. No pneumothorax. No pleural effusion. Heart: Unrem arkable. No cardiomegaly. No pericardial effusion. Lymph nodes: Unremarkable. No enlarged lymph nodes.Bones/joints: Unremarkable. No acute fracture. Soft tissues: Unremarkable. Question mild esophageal thickening Question mild gastric and small bowel thickening in the visualized abdomen IMPRESSION: No large pulmonary emboli detected Mildly limited evaluation of the distal segmental and subsegmental branches due to motion artifact Mild gastric and small bowel thickening suspected. Correlate for gastroenteritis Lab Data Lab results reviewed: Yes I reviewed the patient's lab results. Labs: Laboratory Tests Range/Units 07/22/22 07/22/22 07/22/22 19:20 19:20 19:20 WBC (4.4-10.8) 10^3/uL 5.70 RBC (3.93-5.22) 10^6/uL 4.09 Hgb (11.2-15.7) g/dL 12.9 Hct (36.0-46.0) % 38.2 MCV (80-95) fL 93 MCH (27.0-33.0) pg 31.5 MCHC (32.0-36.0) % 33.8 RDW (11.7-14.6) % 12.7 Plt Count (130-400) 10^3/uL 197 MPV (8.0-11.0) fL 9.8 Immature Gran % 0.4 Neutrophils % 52.3 Lymphocytes % 34.2 Monocytes % 11.4 Eosinophils % 1.2 Basophils % 0.5 Nucleated RBC % (0.0-0.3) % 0.0 Absolute Neutrophils (1.2-6.7) 10^3/uL 2.98 Absolute Lymphocytes (1.2-3.4) 10^3/uL 1.95 Absolute Monocytes (0.1-0.8) 10^3/uL 0.65 Absolute Eosinophils (0.0-0.7) 10^3/uL 0.07 Absolute Basophils (0.0-0.2) 10^3/uL 0.03 PT (9.3-11.0) sec 10.4 INR (0.9-1.1) 1.0 APTT (21.0-27.5) sec 22.6 D-Dimer (<500) ng/mlFEU 581 H Sodium (136-145) mmol/L 139 Potassium (3.5-5.1) mmol/L 3.9 Chloride (98-107) mmol/L 103 Carbon Dioxide (21.0-32.0) mmol/L 30.6 Anion Gap (3-11) mmol/L 5.4 BUN (7-18) mg/dL 24 H Creatinine (0.55-1.02) mg/dL 1.0 Est GFR (CKD-EPI 2020) (mL/min/1.73m2) 69.49 Glucose (74-106) mg/dL 78 Calcium (8.5-10.1) mg/dL 9.5 Magnesium (1.8-2.4) mg/dL 2.0 Total Bilirubin (0.2-1.0) mg/dL 0.4 AST (15-37) U/L 32 ALT (14-59) U/L 45 Alkaline Phosphatase (46-116) U/L 118 H Troponin I (<or=60) ng/L < 50 Total Protein (6.4-8.2) g/dL 8.0 Albumin (3.4-5.0) g/dL 4.1 TSH (0.36-3.74) uIU/mL 0.84 COVID-19 Source SARS-CoV-2 (PCR) (Negative) Influenza Type A (PCR) (Negative) Influenza Type B (PCR) (Negative) RSV (PCR) (Negative) Range/Units 07/22/22 19:35 WBC (4.4-10.8) 10^3/uL RBC (3.93-5.22) 10^6/uL Hgb (11.2-15.7) g/dL Hct (36.0-46.0) % MCV (80-95) fL MCH (27.0-33.0) pg MCHC (32.0-36.0) % RDW (11.7-14.6) % Plt Count (130-400) 10^3/uL MPV (8.0-11.0) fL Immature Gran % Neutrophils % Lymphocytes % Monocytes % Eosinophils % Basophils % Nucleated RBC % (0.0-0.3) % Absolute Neutrophils (1.2-6.7) 10^3/uL Absolute Lymphocytes (1.2-3.4) 10^3/uL Absolute Monocytes (0.1-0.8) 10^3/uL Absolute Eosinophils (0.0-0.7) 10^3/uL Absolute Basophils (0.0-0.2) 10^3/uL PT (9.3-11.0) sec INR (0.9-1.1) APTT (21.0-27.5) sec D-Dimer (<500) ng/mlFEU Sodium (136-145) mmol/L Potassium (3.5-5.1) mmol/L Chloride (98-107) mmol/L Carbon Dioxide (21.0-32.0) mmol/L Anion Gap (3-11) mmol/L BUN (7-18) mg/dL Creatinine (0.55-1.02) mg/dL Est GFR (CKD-EPI 2020) (mL/min/1.73m2) Glucose (74-106) mg/dL Calcium (8.5-10.1) mg/dL Magnesium (1.8-2.4) mg/dL Total Bilirubin (0.2-1.0) mg/dL AST (15-37) U/L ALT (14-59) U/L Alkaline Phosphatase (46-116) U/L Troponin I (<or=60) ng/L Total Protein (6.4-8.2) g/dL Albumin (3.4-5.0) g/dL TSH (0.36-3.74) uIU/mL COVID-19 Source Nasopharynx SARS-CoV-2 (PCR) (Negative) Negative Influenza Type A (PCR) (Negative) Negative Influenza Type B (PCR) (Negative) Negative RSV (PCR) (Negative) Negative ECG Data Attestation: I personally reviewed and interpreted this ECG (s) as follows: Interpretation: Sinus rhythm, ventricular rate of 72, incomplete right bundle branch block. No STEMI. HPI General Mode of arrival: EMS . Date/Time Provider Initiated Documentation: 07/22/22 19:23 . Limitations to Documentation: no limitations . Information obtained by: patient, family and EMS . HPI Narrative: This is a 47-year-old female with a past medical history that includes diabetes, CAD, stent placement last summer, neurogenic bladder, asthma, GERD, presenting to the ER via EMS stating that after lunch today she did not feel very well, had some body aches, had a few episodes of nausea and vomiting and after vomiting developed some anterior chest pain. Patient states that that pain is worse with deep inspiration. It does not radiate anywhere. She reports that her nausea and vomiting has resolved completely. Last weekend she states that she had mechanical slip and fall exacerbating her low back pain. She states that she does not typically use marijuana products but and attempt to treat her pain she has used marijuana products yesterday and today. EMS did give full dose aspirin. Related Data Home Medications Medication Instructions Recorded Confirmed cholecalciferol (vitamin D3) 25 25 mcg PO DAILY 01/12/22 07/08/22 mcg (1,000 unit) tablet clopidogrel 75 mg tablet (Plavix) 75 mg PO DAILY 01/12/22 07/08/22 metoprolol succinate 50 mg 50 mg PO DAILY 01/12/22 07/08/22 tablet,extended release 24 hr acetone (urine) test (Ketostix 01/29/22 07/08/22 strips) albuterol sulfate 2.5 mg/3 mL 2.5 mg inhalation Q8H PRN 01/29/22 07/08/22 (0.083 %) solution for nebulization albuterol sulfate 90 mcg/actuation 2 puff inhalation Q6H PRN 01/29/22 07/08/22 aerosol inhaler (ProAir HFA) aspirin 81 mg chewable tablet 81 mg PO DAILY 01/29/22 07/08/22 (Children's Aspirin) glucagon 1 mg injection kit mg subcut PRN 01/29/22 07/08/22 atorvastatin 80 mg tablet 80 mg PO DAILY 02/22/22 07/08/22 insulin aspart U-100 100 unit/mL See Rx Instructions .Route .COMPLEX 02/22/22 07/08/22 (3 mL) subcutaneous pen (Novolog Flexpen U-100 Insulin aspart) insulin glargine 100 unit/mL (3 20 unit subcut DAILY 02/22/22 07/08/22 mL) subcutaneous pen (Basaglar KwikPen U-100 Insulin) nitroglycerin 0.4 mg sublingual 0.4 mg sublingual PRN PRN 04/21/22 07/08/22 tablet magnesium oxide 400 mg (241.3 mg 400 mg PO DAILY #14 tabs 04/23/22 07/08/22 magnesium) tablet Previous Rx's Medication Instructions Recorded magnesium oxide 400 mg (241.3 mg 400 mg PO DAILY #14 tabs 04/23/22 magnesium) tablet Allergies Allergy/AdvReac Type Severity Reaction Status Date / Time No Known Allergies Allergy Verified 03/18/22 14:10 General Stated Complaint: Chest Pain MTICHELL: 3 Review of Systems Constitutional Constitutional: Denies fatigue, Denies fever(s), Denies headache(s) and Denies weakness Eyes Eyes: Denies change in vision ENT Ears, Nose, Mouth, and Throat: Denies headache(s) and Denies neck pain Cardiovascular Cardiovascular: Reports chest pain and Denies dyspnea Respiratory Respiratory: Denies cough and Denies dyspnea Gastrointestinal Gastrointestinal: Denies abdominal pain, Reports nausea and Reports vomiting Musculoskeletal Musculoskeletal: Reports back pain and Denies neck pain Integumentary/Breasts Skin/Breast: Reports rash Neurologic Neurologic: Denies headache(s) and Denies weakness Endocrine Endocrine: Denies fatigue Hematologic/Lymphatic Hematologic/Lymphatic: Reports easy bleeding and Reports easy bruising PFSH All Active Problems Syncope (Chronic) UTI (urinary tract infection) (Acute) Hypomagnesemia (Acute) Nonsustained paroxysmal ventricular tachycardia (Acute) IDDM (insulin dependent diabetes mellitus) (Chronic) Syncope (Chronic) CAD (coronary artery disease), marshall coronary artery (Chronic) Cancer of cervix (Acute) Neurogenic bladder (Acute) Vitamin D deficiency (Acute) History of deep vein thrombophlebitis of lower extremity (Acute) Neuropathy (Acute) Hyperkalemia (Acute) Chronic kidney disease, stage I (Acute) Hearing loss (Acute) Blind right eye (Acute) Visual loss (Acute) Acute pain in female pelvis (Acute) Asthma (Chronic) GERD (gastroesophageal reflux disease) (Chronic) Cellulitis of foot (Acute) Elevated troponin (Acute) Diabetes (Chronic) Social History Smoking/Tobacco Use Status: Never Smoking risk assessment performed?: Yes Alcohol Intake: never Drug use: Rarely Substance use type: marijuana Seatbelt use: always Do you feel safe at home: Yes Do you feel safe in your relationship?: Yes Female Reproductive History Menstrual Menopause type: surgical History History 14 Para Hx # Term Pregnancies Multiple births Hx # Pregnancies 1 Ectopic pregnancies AB induced Hx Number of Living Children AB spontaneous Exam Const General: cooperative, healthy appearing, comfortable and no acute distress Orientation: alert, awake and oriented x3 HENMT Head: normal to inspection, normocephalic and atraumatic Face and sinus: normal facial exam Mouth: oral mucosae normal and moist mucous membranes Throat: posterior oropharynx normal Eyes General: appearance normal, both eyes and all related structures Conjunctivae: conjunctivae normal Neck Neck: normal visual inspection, full ROM, no meningeal signs, trachea midline, supple and nontender Chest Chest: normal inspection of the chest and normal palpation of entire chest wall Resp Effort & Inspection: normal respiratory effort and able to speak in complete sentences Auscultation: clear to auscultation bilaterally Cardio Rate: regular rate Rhythm: regular rhythm GI Inspection: normal to inspection Palpation: soft, not firm, no guarding, no pulsatile masses and nontender Auscultation: normal bowel sounds Back/Spine/Pelvis Back: no CVA tenderness and back tenderness (Diffuse mild lumbar, no midline tenderness) Skin General skin exam: no rashes or lesions noted Neuro General: patient alert, patient awake, patient oriented x3, moves all extremities and no focal motor deficits Cognition: normal cognition Speech: speech normal Gait: normal gait Motor: muscle tone normal throughout Sensory Exam: no sensory deficits noted Extrem General: full ROM and capillary refill normal Other: Mild ecchymosis right hip area. No bony point tenderness. No shortening or rotation. Psych Appearance: grossly normal Mental Status: mental status grossly normal Course Vital Signs Vital signs: Vital Signs Temperature 36.3 C L 07/22/22 19:13 Pulse 71 07/22/22 19:13 Respiratory Rate 20 07/22/22 19:13 Blood Pressure 132/57 L 07/22/22 19:13 Pulse Oximetry 96 07/22/22 19:13 Temperature 36.3 C L 07/22/22 19:13 Temperature Source Temporal Artery Scan 07/22/22 19:13 Pulse 67 07/22/22 20:16 Pulse 68 07/22/22 20:16 Respiratory Rate 15 07/22/22 20:16 Respiratory Effort 07/22/22 19:21 Respiratory Depth Normal 07/22/22 19:21 Respiratory Pattern Normal 07/22/22 19:21 Blood Pressure 113/57 L 07/22/22 20:16 Blood Pressure Mean 70 07/22/22 20:16 Pulse Oximetry 100 07/22/22 20:16 Pain Level 6 07/22/22 19:13 Lab/Test Results Lab/Test Results: Laboratory Tests Range/Units 07/22/22 07/22/22 07/22/22 19:20 19:20 19:20 WBC (4.4-10.8) 10^3/uL 5.70 RBC (3.93-5.22) 10^6/uL 4.09 Hgb (11.2-15.7) g/dL 12.9 Hct (36.0-46.0) % 38.2 MCV (80-95) fL 93 MCH (27.0-33.0) pg 31.5 MCHC (32.0-36.0) % 33.8 RDW (11.7-14.6) % 12.7 Plt Count (130-400) 10^3/uL 197 MPV (8.0-11.0) fL 9.8 Immature Gran % 0.4 Neutrophils % 52.3 Lymphocytes % 34.2 Monocytes % 11.4 Eosinophils % 1.2 Basophils % 0.5 Nucleated RBC % (0.0-0.3) % 0.0 Absolute Neutrophils (1.2-6.7) 10^3/uL 2.98 Absolute Lymphocytes (1.2-3.4) 10^3/uL 1.95 Absolute Monocytes (0.1-0.8) 10^3/uL 0.65 Absolute Eosinophils (0.0-0.7) 10^3/uL 0.07 Absolute Basophils (0.0-0.2) 10^3/uL 0.03 PT (9.3-11.0) sec 10.4 INR (0.9-1.1) 1.0 APTT (21.0-27.5) sec 22.6 D-Dimer (<500) ng/mlFEU 581 H Sodium (136-145) mmol/L 139 Potassium (3.5-5.1) mmol/L 3.9 Chloride (98-107) mmol/L 103 Carbon Dioxide (21.0-32.0) mmol/L 30.6 Anion Gap (3-11) mmol/L 5.4 BUN (7-18) mg/dL 24 H Creatinine (0.55-1.02) mg/dL 1.0 Est GFR (CKD-EPI 2020) (mL/min/1.73m2) 69.49 Glucose (74-106) mg/dL 78 Calcium (8.5-10.1) mg/dL 9.5 Magnesium (1.8-2.4) mg/dL 2.0 Total Bilirubin (0.2-1.0) mg/dL 0.4 AST (15-37) U/L 32 ALT (14-59) U/L 45 Alkaline Phosphatase (46-116) U/L 118 H Troponin I (<or=60) ng/L < 50 Total Protein (6.4-8.2) g/dL 8.0 Albumin (3.4-5.0) g/dL 4.1 TSH (0.36-3.74) uIU/mL 0.84 COVID-19 Source SARS-CoV-2 (PCR) (Negative) Influenza Type A (PCR) (Negative) Influenza Type B (PCR) (Negative) RSV (PCR) (Negative) Range/Units 07/22/22 19:35 WBC (4.4-10.8) 10^3/uL RBC (3.93-5.22) 10^6/uL Hgb (11.2-15.7) g/dL Hct (36.0-46.0) % MCV (80-95) fL MCH (27.0-33.0) pg MCHC (32.0-36.0) % RDW (11.7-14.6) % Plt Count (130-400) 10^3/uL MPV (8.0-11.0) fL Immature Gran % Neutrophils % Lymphocytes % Monocytes % Eosinophils % Basophils % Nucleated RBC % (0.0-0.3) % Absolute Neutrophils (1.2-6.7) 10^3/uL Absolute Lymphocytes (1.2-3.4) 10^3/uL Absolute Monocytes (0.1-0.8) 10^3/uL Absolute Eosinophils (0.0-0.7) 10^3/uL Absolute Basophils (0.0-0.2) 10^3/uL PT (9.3-11.0) sec INR (0.9-1.1) APTT (21.0-27.5) sec D-Dimer (<500) ng/mlFEU Sodium (136-145) mmol/L Potassium (3.5-5.1) mmol/L Chloride (98-107) mmol/L Carbon Dioxide (21.0-32.0) mmol/L Anion Gap (3-11) mmol/L BUN (7-18) mg/dL Creatinine (0.55-1.02) mg/dL Est GFR (CKD-EPI 2020) (mL/min/1.73m2) Glucose (74-106) mg/dL Calcium (8.5-10.1) mg/dL Magnesium (1.8-2.4) mg/dL Total Bilirubin (0.2-1.0) mg/dL AST (15-37) U/L ALT (14-59) U/L Alkaline Phosphatase (46-116) U/L Troponin I (<or=60) ng/L Total Protein (6.4-8.2) g/dL Albumin (3.4-5.0) g/dL TSH (0.36-3.74) uIU/mL COVID-19 Source Nasopharynx SARS-CoV-2 (PCR) (Negative) Negative Influenza Type A (PCR) (Negative) Negative Influenza Type B (PCR) (Negative) Negative RSV (PCR) (Negative) Negative
[2022-07-22 23:08] LABS: Troponin I < 50 ng/L (<or=60)
--- NOTE | 2022-07-22 23:18 | ED.PROG_ITS ---
Date of service: 07/22/22 Time of Service: 23:18 Medical Decision Making patients repeat troponin negative and she has not had any chest pain since being here and still has no pain. She has no symptoms now and feels well, tolerating po, soft nontender abdomen. Given well appearance here and reassuring workup he re do not feel admission indicated, she is stable for d/c, will f/u with pcp and return precautions given Sign Out Sign Out Data: Sign Out Comment: Did not feel well after lunch, developed nausea and vomiting, chest pain after vomiting. Work-up thus far unremarkable for obvious emergent process. CT findings revealed potential gastroenteritis. Patient is currently asymptomatic. Awaiting delta troponin. Patient feels well and would like to go home. Last updated by Josh Rosenberg PA at 07/22/22 22:53 Discharge Plan Disposition Patient Disposition: Home Condition: Stable Discharge Details Clinical Impression: Chest pain Primary Care Provider: Jose Pittman ED Provider: Cam Wilcox Home Meds and New Rx's Prescriptions: Continued albuterol sulfate 2.5 mg /3 mL (0.083 %) solution for nebulization 2.5 mg inhalation Q8H PRN (DME) Ketostix Strip See Rx Instructions .Route Rx Instructions: As directed glucagon 1 mg kit subcut PRN aspirin [Children's Aspirin] 81 mg tablet,chewable 81 mg PO DAILY albuterol sulfate [ProAir HFA] 90 mcg/actuation HFA aerosol inhaler 2 puff inhalation Q6H PRN metoprolol succinate 50 mg tablet extended release 24 hr 50 mg PO DAILY Label Comments: Take 1 tablet by mouth once a day clopidogrel [Plavix] 75 mg tablet 75 mg PO DAILY Label Comments: Take 1 tablet by mouth once a day cholecalciferol (vitamin D3) 25 mcg (1,000 unit) tablet 25 mcg PO DAILY Label Comments: TAKE ONE-HALF TABLET BY MOUTH TWICE A DAY atorvastatin 80 mg tablet 80 mg PO DAILY Label Comments: Take 1 tablet by mouth every evening insulin glargine [Basaglar KwikPen U-100 Insulin] 100 unit/mL (3 mL) insulin pen 20 unit SUBCUT DAILY Label Comments: INJECT 22 UNITS UNDER THE SKIN EVERY MORNING insulin aspart U-100 [Novolog Flexpen U-100 Insulin] 100 unit/mL (3 mL) insulin pen See Rx Instructions .ROUTE .COMPLEX Label Comments: INJECT BASED ON CARBS AT A RATION OF 1:10 GIVE AND CORRECT FOR BG >150 BASED ON ISF 1:25 Rx Instructions: per sliding before meals. nitroglycerin 0.4 mg Tablet, Sublingual 0.4 mg sublingual PRN PRN magnesium oxide 400 mg (241.3 mg magnesium) tablet 400 mg PO DAILY Qty: 14 0RF Discharge Instructions Instructions: Chest Pain (ED) Additional Instructions: Your blood work and cat scan did not show concerning findings at this time follow up with your primary care provider within 1 week if you feel more ill, have sever worsening pain or difficulty breathing return to the emergency department
--- NOTE | 2022-07-22 23:49 | NUR.NOTE ---
PATIENT WITHOUT TRANSPORTATION HOME. PLAN TO SLEEP IN ER, [place] DISCHARGE PAPER FILLED OUT AT THIS TIME. IV REMOVED WITHOUT COMPLICATION, PROVIDED WITH SANDWICH PRIOR TO SLEEPING. PATIENT MOVED TO ROOM 10 TO PROMOTE REST. Nursing Note:
== END 2022-07-22 23:47 | disposition home or self-care (01) ==
PROVIDERS: Physician Assistant; Emergency Provider Emergency Medicine; PCP Physician Assistant
DX: R07.9 Chest pain, unspecified (principal); I25.10 Atherosclerotic heart disease of native coronary artery without angina pectoris; E11.9 Type 2 diabetes mellitus without complications; J45.909 Unspecified asthma, uncomplicated; R79.89 Other specified abnormal findings of blood chemistry; Z20.822 Contact with and (suspected) exposure to COVID-19
CPT/HCPCS: 36416; 71275; 80053; 82962; 87637; 93005; 99285; 71046; 83735; 84443; 84484; 85025; 85379; 85610; 85730; 93010; J3490

== ENCOUNTER 2022-08-14 09:19 | Emergency (ER) | payer MEDICARE, MEDICAID, SELFPAY ==
--- NOTE | 2022-08-14 | DI.RAD_ITS ---
Exam(s) XR PORTABLE CHEST AP EXAM: XR PORTABLE CHEST AP CLINICAL HISTORY: fever, cough, r/o acute disease TECHNIQUE: 2D digital imaging was performed of the chest. One image was obtained. An AP view was ob tained. COMPARISON: CR XR PORTABLE CHEST AP from 04/21/2022 CR,XR XR CHEST 2V PA LATERAL from 07/22/2022 FINDINGS: MEDIASTINUM: Normal. HEART: Normal. PULMONARY VASCULATURE: Normal. LUNGS: Clear. PLEURAL SPACE: No pleural effusion or pneumothorax. BONE:Within normal limits for the patient's age. OTHER FINDINGS:Normal. IMPRESSION: No acute pulmonary findings. DATA REPOSITORY: RADIATION DOSE DELIVERED:
[2022-08-14 09:25] VITALS: BP 123/52; PULSE 95; RESP 17; TEMP 37.9; O2SAT 100
--- NOTE | 2022-08-14 09:26 | ED.GENADUL_ITS ---
Discharge Plan Disposition Patient Disposition: Home Condition: Improving Discharge Details Clinical Impression: Influenza A Primary Care Provider: Jose Pittman ED Provider: Kelly Guzman Home Meds and New Rx's Prescriptions: Continued albuterol sulfate 2.5 mg /3 mL (0.083 %) solution for nebulization 2.5 mg inhalation Q8H PRN (Reason: Shortness Of Breath) (DME) Ketostix Strip See Rx Instructions .Route Rx Instructions: As directed glucagon 1 mg kit 1 mg subcut PRN PRN (Reason: Hypoglycemia) aspirin [Children's Aspirin] 81 mg tablet,chewable 81 mg PO DAILY albuterol sulfate [ProAir HFA] 90 mcg/actuation HFA aerosol inhaler 2 puff inhalation Q6H PRN (Reason: Shortness Of Breath) metoprolol succinate 50 mg tablet extended release 24 hr 50 mg PO DAILY Label Comments: Take 1 tablet by mouth once a day clopidogrel [Plavix] 75 mg tablet 75 mg PO DAILY Label Comments: Take 1 tablet by mouth once a day cholecalciferol (vitamin D3) 25 mcg (1,000 unit) tablet 25 mcg PO DAILY Label Comments: TAKE ONE-HALF TABLET BY MOUTH TWICE A DAY atorvastatin 80 mg tablet 80 mg PO DAILY Label Comments: Take 1 tablet by mouth every evening insulin glargine [Basaglar KwikPen U-100 Insulin] 100 unit/mL (3 mL) insulin pen 20 unit SUBCUT DAILY Label Comments: INJECT 22 UNITS UNDER THE SKIN EVERY MORNING insulin aspart U-100 [Novolog FlexPen U-100 Insulin] 100 unit/mL (3 mL) insulin pen See Rx Instructions .ROUTE .COMPLEX Label Comments: INJECT BASED ON CARBS AT A RATION OF 1:10 GIVE AND CORRECT FOR BG >150 BASED ON ISF 1:25 Rx Instructions: per sliding before meals. nitroglycerin 0.4 mg Tablet, Sublingual 0.4 mg sublingual PRN PRN (Reason: Chest Pain) magnesium oxide 400 mg (241.3 mg magnesium) tablet 400 mg PO DAILY Qty: 14 0RF Discharge Instructions Instructions: Influenza (ED), Acute Nausea and Vomiting (ED) Additional Instructions: You tested positive for the influenza A virus today. The remainder of your blood tests and imaging today are reassuring and show no evidence of acute concerning or significant findings. Drink plenty of fluids and get plenty of rest. Alternate tylenol and motrin as needed and directed for pain. Take Zofran as needed and directed for nausea and vomiting. Follow-up with your primary care doctor in 1 week. Return to the emergency department with any worsening or new concerning symptoms. Discharge Data Discharge Physician: Kelly Guzman Medical Decision Making [id number] -- 47yo F w/ a history of type 1 diabetes, chronic kidney disease, coronary artery disease with 1 cardiac stent presents from home with 1 day of fever, chills, body aches, ear pain, sore throat, occasional productive cough, and nausea and vomiting. Temp on arrival 100.2. Normal respiratory rate and oxygen saturation. Patient appears generally fatigued but nontoxic. Normal ENT exam. Diminished breath sounds throughout but no wheezing or rhonchi noted. Abdomen soft and nontender. No lower extremity edema. No meningeal signs. Differential diagnosis includes COVID, influenza, RSV, pneumonia or other viral illness. We will place an IV, bolus IV fluids, Fluvid, CXR, consider history of type 1 diabetes, obtain screening labs, urinalysis and give a dose of IV Tylenol, IV Zofran, DuoNeb and reassess. 1245 --labs and imaging reviewed. Patient positive for influenza A. COVID, influenza B and RSV negative. Chest x-ray negative for acute disease. Labs reviewed and notes white blood cell count 4.39. Normal hemoglobin. Glucose 262. Metabolic panel and VBG notes a normal pH and bicarb. Urinalysis negative for infection. Xolfuza given here in the ED. Patient reassessed and she felt much better and was requesting to go home. Reassessment of vitals note blood pressure 95/39, pulse 101. She was able to eat and drink here. Advised to follow up with the primary care doctor for re-evaluation. Usual and customary return precautions given prior to discharge. Medical Records Medical records reviewed: Yes I reviewed the patient's medical records. Imaging Data Radiologic Study: Radiologist's impression: XR PORTABLE CHEST AP CLINICAL HISTORY:? fever, cough, r/o acute disease TECHNIQUE:? 2D digital imaging was performed of the chest. One image was obtained.? An AP view was obtained. COMPARISON:? CR XR PORTABLE CHEST AP from 04/21/2022 CR,XR XR CHEST 2V PA ? LATERAL from 07/22/2022 FINDINGS: MEDIASTINUM: Normal.? HEART: Normal. PULMONARY VASCULATURE: Normal. LUNGS: Clear.? PLEURAL SPACE: No pleural effusion or pneumothorax. BONE:Within normal limits for the patient's age. OTHER FINDINGS:Normal.? IMPRESSION: No acute pulmonary findings. Lab Data Lab results reviewed: Yes I reviewed the patient's lab results. Labs: Laboratory Tests Range/Units 08/14/22 08/14/22 08/14/22 10:04 10:04 10:04 WBC Cancelled RBC Cancelled Hgb Cancelled Hct Cancelled MCV Cancelled MCH Cancelled MCHC Cancelled RDW Cancelled Plt Count Cancelled MPV Cancelled Immature Gran % Cancelled Neutrophils % Cancelled Band Neutrophils % Cancelled Lymphocytes % Cancelled Atypical Lymphs % Cancelled Monocytes % Cancelled Eosinophils % Cancelled Basophils % Cancelled Metamyelocytes % Cancelled Myelocytes % Cancelled Promyelocytes % Cancelled Other Cells % Cancelled Nucleated RBC % Cancelled Absolute Neutrophils Cancelled Absolute Lymphocytes Cancelled Absolute Monocytes Cancelled Absolute Eosinophils Cancelled Absolute Basophils Cancelled RBC Morphology Cancelled Polychromasia Cancelled Hypochromasia Cancelled Poikilocytosis Cancelled Basophilic Stippling Cancelled Anisocytosis Cancelled Microcytosis Cancelled Macrocytosis Cancelled Spherocytes Cancelled Tear Drop Cells Cancelled Ovalocytes Cancelled Stomatocytes Cancelled [place] Bodies Cancelled [place] Cells/Echinocytes Cancelled Acanthocytes (Spur) Cancelled Schistocytes Cancelled VBG pH (7.31-7.41) 7.37 VBG pCO2 (41-51) mmHg 53 H VBG pO2 mmHg 28 VBG HCO3 (23-28) mmol/L 30 H VBG Total CO2 (24-29) mmol/L 28 VBG O2 Saturation % 52 VBG Base Excess (-2-3) mmol/L 5 H Sodium (136-145) mmol/L 134 L Potassium (3.5-5.1) mmol/L 4.7 Chloride (98-107) mmol/L 98 Carbon Dioxide (21.0-32.0) mmol/L 30.6 Anion Gap (3-11) mmol/L 5.4 BUN (7-18) mg/dL 15 Creatinine (0.55-1.02) mg/dL 0.9 Est GFR (CKD-EPI 2020) (mL/min/1.73m2) 78.86 Glucose (74-106) mg/dL 262 H Calcium (8.5-10.1) mg/dL 9.0 Total Bilirubin (0.2-1.0) mg/dL 0.8 AST (15-37) U/L 42 H ALT (14-59) U/L 43 Alkaline Phosphatase (46-116) U/L 100 Total Protein (6.4-8.2) g/dL 7.7 Albumin (3.4-5.0) g/dL 3.9 Urine Color (Yellow) Urine Clarity (Clear) Urine pH (5-8) Ur Specific [place] (1.005-1.025) Urine Protein (Negative) mg/dL Urine Ketones (Negative) mg/dL Urine Blood (Negative) Urine Nitrite (Negative) Urine Bilirubin (Negative) Urine Urobilinogen (Up TO 0.2) EU/dL Ur Leukocyte Esterase (Negative) Urine Glucose (Negative) mg/dL Range/Units 08/14/22 08/14/22 10:45 12:05 WBC 4.39 L RBC 3.77 L Hgb 11.9 Hct 35.6 L MCV 94 MCH 31.6 MCHC 33.4 RDW 12.5 Plt Count 152 MPV 9.6 Immature Gran % 0.2 Neutrophils % 66.3 Band Neutrophils % Lymphocytes % 11.8 Atypical Lymphs % Monocytes % 20.7 Eosinophils % 0.5 Basophils % 0.5 Metamyelocytes % Myelocytes % Promyelocytes % Other Cells % Nucleated RBC % 0.0 Absolute Neutrophils 2.91 Absolute Lymphocytes 0.52 L Absolute Monocytes 0.91 H Absolute Eosinophils 0.02 Absolute Basophils 0.02 RBC Morphology Polychromasia Hypochromasia Poikilocytosis Basophilic Stippling Anisocytosis Microcytosis Macrocytosis Spherocytes Tear Drop Cells Ovalocytes Stomatocytes [place] Bodies [place] Cells/Echinocytes Acanthocytes (Spur) Schistocytes VBG pH (7.31-7.41) VBG pCO2 (41-51) mmHg VBG pO2 mmHg VBG HCO3 (23-28) mmol/L VBG Total CO2 (24-29) mmol/L VBG O2 Saturation % VBG Base Excess (-2-3) mmol/L Sodium (136-145) mmol/L Potassium (3.5-5.1) mmol/L Chloride (98-107) mmol/L Carbon Dioxide (21.0-32.0) mmol/L Anion Gap (3-11) mmol/L BUN (7-18) mg/dL Creatinine (0.55-1.02) mg/dL Est GFR (CKD-EPI 2020) (mL/min/1.73m2) Glucose (74-106) mg/dL Calcium (8.5-10.1) mg/dL Total Bilirubin (0.2-1.0) mg/dL AST (15-37) U/L ALT (14-59) U/L Alkaline Phosphatase (46-116) U/L Total Protein (6.4-8.2) g/dL Albumin (3.4-5.0) g/dL Urine Color (Yellow) Yellow Urine Clarity (Clear) Clear Urine pH (5-8) 6.5 Ur Specific [place] (1.005-1.025) 1.015 Urine Protein (Negative) mg/dL Negative Urine Ketones (Negative) mg/dL 15 H Urine Blood (Negative) Negative Urine Nitrite (Negative) Negative Urine Bilirubin (Negative) Negative Urine Urobilinogen (Up TO 0.2) EU/dL 0.2 Ur Leukocyte Esterase (Negative) Negative Urine Glucose (Negative) mg/dL 500 H HPI General Mode of arrival: ambulatory . Date/Time Provider Initiated Documentation: 08/14/22 09:30 . Limitations to Documentation: no limitations . Information obtained by: patient . HPI Narrative: Patient is a 47-year-old female with a history of type 1 diabetes, coronary artery disease with 1 coronary artery stent, GERD, DVT, asthma and neurogenic bladder who presents from home for fever, chills, body aches, sore throat, nasal congestion, cough, nausea and vomiting since yesterday. She states she has not taken her temperature but has felt warm. She has not taken any Tylenol or ibuprofen today. She states she has had clear nasal discharge. She states her cough is mainly been dry. She states she has vomited a few times every time she attempts to eat or drink something. She states her vomitus is mainly been clear phlegm or food. She denies any headache, neck pain, chest pain, difficulty breathing, abdominal pain, diarrhea or urinary symptoms. Related Data Home Medications Medication Instructions Recorded Confirmed cholecalciferol (vitamin D3) 25 25 mcg PO DAILY 01/12/22 08/14/22 mcg (1,000 unit) tablet clopidogrel 75 mg tablet (Plavix) 75 mg PO DAILY 01/12/22 08/14/22 metoprolol succinate 50 mg 50 mg PO DAILY 01/12/22 08/14/22 tablet,extended release 24 hr acetone (urine) test (Ketostix 01/29/22 08/14/22 strips) albuterol sulfate 2.5 mg/3 mL 2.5 mg inhalation Q8H PRN 01/29/22 08/14/22 (0.083 %) solution for nebulization Shortness Of Breath albuterol sulfate 90 mcg/actuation 2 puff inhalation Q6H PRN 01/29/22 08/14/22 aerosol inhaler (ProAir HFA) Shortness Of Breath aspirin 81 mg chewable tablet 81 mg PO DAILY 01/29/22 08/14/22 (Children's Aspirin) glucagon 1 mg injection kit 1 mg subcut PRN PRN Hypoglycemia 01/29/22 08/14/22 atorvastatin 80 mg tablet 80 mg PO DAILY 02/22/22 08/14/22 insulin aspart U-100 100 unit/mL See Rx Instructions .Route .COMPLEX 02/22/22 08/14/22 (3 mL) subcutaneous pen (Novolog FlexPen U-100 Insulin aspart) insulin glargine 100 unit/mL (3 20 unit subcut DAILY 02/22/22 08/14/22 mL) subcutaneous pen (Basaglar KwikPen U-100 Insulin) nitroglycerin 0.4 mg sublingual 0.4 mg sublingual PRN PRN Chest 04/21/22 08/14/22 tablet Pain magnesium oxide 400 mg (241.3 mg 400 mg PO DAILY #14 tabs 04/23/22 08/14/22 magnesium) tablet Previous Rx's Medication Instructions Recorded magnesium oxide 400 mg (241.3 mg 400 mg PO DAILY #14 tabs 04/23/22 magnesium) tablet Allergies Allergy/AdvReac Type Severity Reaction Status Date / Time No Known Allergies Allergy Verified 08/14/22 09:21 General Stated Complaint: GenMedical MITCHELL: 3 Review of Systems All systems reviewed & are unremarkable except as noted in HPI and below Constitutional Constitutional: Reports as per HPI, Reports body ache(s), Reports chills and Reports fever(s) Eyes Eyes: Denies blurry vision ENT Ears, Nose, Mouth, and Throat: Denies dizziness, Reports sore throat and Denies throat swelling Cardiovascular Cardiovascular: Denies chest pain and Denies dyspnea Respiratory Respiratory: Denies cough and Denies dyspnea Gastrointestinal Gastrointestinal: Denies abdominal pain, Denies diarrhea and Denies vomiting Genitourinary Genitourinary: Denies hematuria and Denies dysuria Musculoskeletal Musculoskeletal: Denies back pain and Denies numbness Integumentary/Breasts Skin/Breast: Denies lesions and Denies rash Neurologic Neurologic: Denies dizziness, Denies localized weakness and Denies numbness Allergic/Immunologic Allergic/Immunologic: Denies throat swelling PFSH All Active Problems (Updated 08/14/22 @ 13:18 by Kelly Guzman DO) Influenza A (Acute) Chest pain (Acute) Syncope (Chronic) Hypomagnesemia (Acute) Nonsustained paroxysmal ventricular tachycardia (Acute) Syncope (Chronic) Cancer of cervix (Acute) Vitamin D deficiency (Acute) Neuropathy (Acute) Hyperkalemia (Acute) Chronic kidney disease, stage I (Acute) Hearing loss (Acute) Blind right eye (Acute) Visual loss (Acute) Acute pain in female pelvis (Acute) Cellulitis of foot (Acute) Elevated troponin (Acute) Diabetes (Chronic) Medical History (Updated 08/14/22 @ 13:18 by Kelly Guzman DO) Asthma CAD (coronary artery disease), [place] coronary artery GERD (gastroesophageal reflux disease) History of deep vein thrombophlebitis of lower extremity IDDM (insulin dependent diabetes mellitus) Neurogenic bladder Surgical History (Updated 08/14/22 @ 09:35 by Kelly Guzman DO) History of partial hysterectomy Social History Smoking/Tobacco Use Status: Never Smoking risk assessment performed?: Yes Alcohol Intake: never Drug use: Rarely Substance use type: marijuana Seatbelt use: always Do you feel safe at home: Yes Do you feel safe in your relationship?: Yes Female Reproductive History Menstrual Menopause type: surgical History History 14 Para Hx # Term Pregnancies Multiple births Hx # Pregnancies 1 Ectopic pregnancies AB induced Hx Number of Living Children AB spontaneous Exam Const General: cooperative and no acute distress Orientation: alert, awake and oriented x3 HENMT Head: normal to inspection Ears: hearing grossly normal bilaterally, external ears normal and TM's normal bilaterally General nose exam: external nose normal Face and sinus: normal facial exam Mouth: oral mucosae normal Teeth and gingiva: poor dentition Throat: posterior oropharynx normal Eyes General: appearance normal, both eyes and all related structures Pupils: PERRL EOM: EOM intact bilaterally Neck Neck: normal visual inspection and No submandibular swelling Lymphatic: no lymphadenopathy noted Chest Chest: normal inspection of the chest and no tenderness Resp Effort & Inspection: normal respiratory effort and able to speak in complete sentences Auscultation: diminished lung sounds bilaterally throughout Cardio Rate: regular rate Rhythm: regular rhythm GI Inspection: normal to inspection Palpation: soft, not firm, not rigid and nontender Auscultation: hypoactive bowel sounds Back/Spine/Pelvis Thoracic/Lumbar Spine: thoracic and lumbar spine normal to inspection Skin General skin exam: no rashes or lesions noted Neuro General: patient alert, patient awake and patient oriented x3 Cognition: normal cognition Speech: speech normal Motor: muscle tone normal throughout Sensory Exam: no sensory deficits noted Extrem General: normal to inspection, full ROM, capillary refill normal, no calf tenderness bilaterally and no edema Psych Appearance: grossly normal Mental Status: mental status grossly normal Speech and Movement: speech and movement normal Affect: normal affect
[2022-08-14 09:31] VITALS: RESP 17
[2022-08-14 10:12] LABS: BE (Venous) 5 mmol/L (-2-3); HCO3 (Venous) 30 mmol/L (23-28); O2 Sat (Venous) 52 %; TCO2 (Venous) 28 mmol/L (24-29); pCO2 (Venous) 53 mmHg (41-51); pH (Venous) 7.37 (7.31-7.41); pO2 (Venous) 28 mmHg
[2022-08-14] MEDS: Ondansetron 4 MG/2 ML VIAL (10:14)
[2022-08-14] MEDS: ACETAMINOPHEN 1,000 MG/100 ML BTL 400 MG (10:22)
[2022-08-14 10:34] LABS: ALT 43 U/L (14-59); AST 42 U/L (15-37); Albumin 3.9 g/dL (3.4-5.0); Alkaline Phosphatase 100 U/L (46-116); Anion Gap 5.4 mmol/L (3-11); BUN 15 mg/dL (7-18); Bilirubin, Total 0.8 mg/dL (0.2-1.0); CO2 30.6 mmol/L (21.0-32.0); CREATININE 0.9 mg/dL (0.55-1.02); Chloride 98 mmol/L (98-107); Estimated GFR 78.86 (mL/min/1.73m2); Glucose 262 mg/dL (74-106); Potassium 4.7 mmol/L (3.5-5.1); Sodium 134 mmol/L (136-145); Total Protein 7.7 g/dL (6.4-8.2)
[2022-08-14 10:47] LABS: Abs Immature Grans 0.01 10^3/uL (0.0-0.06); Absolute Basophil Count 0.02 10^3/uL (0.0-0.2); Absolute Eosinophil Count 0.02 10^3/uL (0.0-0.7); Absolute Lymphocyte Count 0.52 10^3/uL (1.2-3.4); Absolute Monocyte Count 0.91 10^3/uL (0.1-0.8); Absolute Neutrophil Count 2.91 10^3/uL (1.2-6.7); Basophils % 0.5; Eosinophils % 0.5; HCT 35.6 % (36.0-46.0); HGB 11.9 g/dL (11.2-15.7); Immature Grans % 0.2; Lymphocytes % 11.8; MCH 31.6 pg (27.0-33.0); MCHC 33.4 % (32.0-36.0); MCV 94 fL (80-95); MPV 9.6 fL (8.0-11.0); Monocytes % 20.7; Neutrophils % 66.3; Platelet Count 152 10^3/uL (130-400); RBC 3.77 10^6/uL (3.93-5.22); RDW 12.5 % (11.7-14.6); WBC 4.39 10^3/uL (4.4-10.8)
[2022-08-14 11:32] VITALS: RESP 1; RESP 8; O2SAT 98
[2022-08-14] MEDS: Albuterol/Ipratropium 3 ML UPD VIAL (11:32)
[2022-08-14 12:11] VITALS: BP 91/39; PULSE 102; RESP 14; TEMP 37.3; O2SAT 100
[2022-08-14 12:19] LABS: Bilirubin Negative (Negative); Blood Negative (Negative); Clarity Clear (Clear); Glucose 500 mg/dL (Negative); Ketones 15 mg/dL (Negative); Leukocyte Esterase Negative (Negative); Nitrite Negative (Negative); Specific Gravity 1.015 (1.005-1.025); Urobilinogen 0.2 EU/dL (Up TO 0.2); pH 6.5 (5-8)
[2022-08-14 12:51] VITALS: BP 95/39; PULSE 101; O2SAT 100
[2022-08-14] MEDS: Ondansetron O.D.T. 4 MG TABEF, 3 TABS/BTL 12 MG (13:22)
[2022-08-14 15:37] LABS: COVID-19 PCR Negative (Negative); Influenza A PCR Positive (Negative); Influenza B PCR Negative (Negative); RSV PCR Negative (Negative)
[2022-08-14 15:52] LABS: Source Nasopharynx
== END 2022-08-14 13:32 | disposition home or self-care (01) ==
PROVIDERS: Emergency Provider Physician Assistant; PCP Physician Assistant
DX: J10.1 Influenza due to other identified influenza virus with other respiratory manifestations (principal); E10.22 Type 1 diabetes mellitus with diabetic chronic kidney disease; N18.9 Chronic kidney disease, unspecified; I25.10 Atherosclerotic heart disease of native coronary artery without angina pectoris; J45.909 Unspecified asthma, uncomplicated; Z79.82 Long term (current) use of aspirin; Z79.4 Long term (current) use of insulin; Z86.718 Personal history of other venous thrombosis and embolism; Z79.02 Long term (current) use of antithrombotics/antiplatelets; Z20.822 Contact with and (suspected) exposure to COVID-19
CPT/HCPCS: 80053; 81025; 82805; 87637; 96361; 96372; 96374; 96375; 99284; 71045; 81003; 85025; J0131; J2405; J7620

== ENCOUNTER → 2023-01-05 13:34 | Outpatient (BNVA) | payer MEDICARE, MEDICAID, SELFPAY | PROVIDERS: PCP Physician Assistant; Visit Provider Internal Medicine Cardiovascular Disease | DX: Z95.5 Presence of coronary angioplasty implant and graft (principal); I25.2 Old myocardial infarction; Z79.02 Long term (current) use of antithrombotics/antiplatelets; I25.10 Atherosclerotic heart disease of native coronary artery without angina pectoris | CPT/HCPCS: 99213 ==

== ENCOUNTER 2023-01-07 12:21 | Outpatient (REF) | payer MEDICARE, MEDICAID, SELFPAY ==
[2023-01-07 19:07] LABS: COMMENT (LAB VIEW ONLY) 49.81 mg/dL; Microalb ug/mg Crea 19.5 ug/mg Cr
== END 2023-01-07 12:22 | disposition home or self-care (01) ==
LOC: NCHCN 12:21
PROVIDERS: PCP Physician Assistant; Visit Provider Physician Assistant
DX: E10.319 Type 1 diabetes mellitus with unspecified diabetic retinopathy without macular edema (principal)
CPT/HCPCS: 82043; 82570

== ENCOUNTER 2023-06-11 02:16 | Outpatient (CLI) | payer MEDICARE, MEDICAID, SELFPAY ==
[2023-06-11 09:44] LABS: HCT 38.8 % (36.0-46.0); HGB 13.1 g/dL (11.2-15.7); MCH 30.6 pg (27.0-33.0); MCHC 33.8 % (32.0-36.0); MCV 91 fL (80-95); MPV 9.3 fL (8.0-11.0); Platelet Count 187 10^3/uL (130-400); RBC 4.28 10^6/uL (3.93-5.22); RDW 12.5 % (11.7-14.6); RDW-SD 41.5 fL; WBC 5.11 10^3/uL (4.4-10.8)
[2023-06-11 11:07] LABS: ALT 45 U/L (14-59); AST 29 U/L (15-37); Albumin 3.8 g/dL (3.4-5.0); Alkaline Phosphatase 127 U/L (46-116); Anion Gap 6.3 mmol/L (3-11); BUN 21 mg/dL (7-18); Bilirubin, Total 0.7 mg/dL (0.2-1.0); CO2 29.7 mmol/L (21.0-32.0); Calcium 9.4 mg/dL (8.5-10.1); Calculated LDL 68 mg/dL (<100); Chloride 98 mmol/L (98-107); Cholesterol 145 mg/dL (<200); Estimated GFR 69.06 (mL/min/1.73m2); Glucose 342 mg/dL (74-106); HDL Cholesterol 68 mg/dL (40-60); Potassium 4.3 mmol/L (3.5-5.1); Sodium 134 mmol/L (136-145); Total Protein 7.5 g/dL (6.4-8.2); Triglyceride 48 mg/dL (<150)
[2023-06-11 11:10] LABS: COMMENT (LAB VIEW ONLY) 39.42 mg/dL; Microalb ug/mg Crea 10.9 ug/mg Cr
[2023-06-11 12:23] LABS: Hemoglobin A1C 8.7 % (<5.7)
== END 2023-06-11 02:17 | disposition home or self-care (01) ==
LOC: LBO 02:17
PROVIDERS: PCP Physician Assistant; Visit Provider Physician Assistant
DX: E10.319 Type 1 diabetes mellitus with unspecified diabetic retinopathy without macular edema (principal)
CPT/HCPCS: 36415; 80053; 80061; 85027; 82043; 82570; 83036

== ENCOUNTER 2023-07-05 11:37 | Emergency (ER) | payer MEDICARE, MEDICAID, SELFPAY ==
[2023-07-05] VITALS (46 sets, daily range): BP systolic 105–151; BP diastolic 52–79; PULSE 60–79; RESP 12–21; TEMP 37; O2SAT 98–100
--- NOTE | 2023-07-05 11:30 | RT.EKG_ITS ---
APPROVED REPORT Exam: Resting ECG Reason for Exam: syncope Patient Location: E HR:74 bpm ECG Measurements Heart Rate 74 AXIS MA 147 P 73 QRSd 106 QRS -66 QT 393 T 66 QTc 435 Conclusion Sinus rhythm..., V-rate 60- [address]. No [address] segment or T wave abnormalities to suggest occlusive [place]
--- NOTE | 2023-07-05 11:41 | ED.GENADUL_ITS ---
Discharge Plan Disposition Condition: Stable Discharge Details Chief Complaint: AMS/LOC Clinical Impression: Syncope Primary Care Provider: Jose Pittman ED Provider: Colette Angeles Home Meds and New Rx's Prescriptions: No Action albuterol sulfate 2.5 mg /3 mL (0.083 %) solution for nebulization 2.5 mg inhalation Q8H PRN (Reason: Shortness Of Breath) (DME) Ketostix Strip See Rx Instructions .Route Rx Instructions: As directed glucagon 1 mg kit 1 mg subcut PRN PRN (Reason: Hypoglycemia) aspirin [Children's Aspirin] 81 mg tablet,chewable 81 mg PO DAILY albuterol sulfate [ProAir HFA] 90 mcg/actuation HFA aerosol inhaler 2 puff inhalation Q6H PRN (Reason: Shortness Of Breath) metoprolol succinate 50 mg tablet extended release 24 hr 50 mg PO DAILY Patient Comments: Take 1 tablet by mouth once a day cholecalciferol (vitamin D3) 25 mcg (1,000 unit) tablet 25 mcg PO DAILY Patient Comments: TAKE ONE-HALF TABLET BY MOUTH TWICE A DAY atorvastatin 80 mg tablet 80 mg PO DAILY Patient Comments: Take 1 tablet by mouth every evening insulin glargine [Basaglar KwikPen U-100 Insulin] 100 unit/mL (3 mL) insulin pen 20 unit SUBCUT DAILY Patient Comments: INJECT 22 UNITS UNDER THE SKIN EVERY MORNING insulin aspart U-100 [Novolog FlexPen U-100 Insulin] 100 unit/mL (3 mL) insulin pen See Rx Instructions .ROUTE .COMPLEX Patient Comments: INJECT BASED ON CARBS AT A RATION OF 1:10 GIVE AND CORRECT FOR BG >150 BASED ON ISF 1:25 Rx Instructions: per sliding before meals. nitroglycerin 0.4 mg Tablet, Sublingual 0.4 mg sublingual PRN PRN (Reason: Chest Pain) magnesium oxide 400 mg (241.3 mg magnesium) tablet 400 mg PO DAILY Qty: 14 0RF Discharge Instructions Instructions: Syncope (ED) Additional Instructions: Keep your appointment with your program development specialist tomorrow- THIS IS VERY IMPORTANT Return to the emergency department immediately if you would like to to stay in the hospital for observation, especially if you have any new or worsening symptoms including chest pain, difficultly breathing, feeling like you are going to pass out, actually passing out, numbness, weakness, headache, vomiting, or if you have any other concerns. Medical Decision Making 48yo F with T1DM, CKD, hx inferior STEMI in January of 2022 s/p 2 TRACIE to RCA presenting via EMS for unresponsive episode. History from patient, EMS, and significant other at bedside. Today while sitting she became unresponsive, signifcant other noted this and was unable to rouse her and so called EMS. On their arrival she was responsive to noxious stimuli and had normal vital signs with blood glucose of 284. Mental status reportedly improved rapidly over the course of transport, became progressively more alert. She does not recall any passing out or any preceding symptoms. Never had any chest pain, lightheadedness, or difficultly breathing, though she does report some dyspnea on exertion over the past two weeks which is new. No clear precipitating factor for event today. No abnormal movements to suggest seizure. [facility] records reviewed including cardiology clinic visits: Stents placed in January of 2022, Nuclear stress test in March of 2022 was negative, syncopal episode in April of 2022 with subsequent 30-day classroom monitor which showed no dysrhythmias. Vital signs reassuring on arrival, unremarkable physical and neurologic exam aside from slight (~0.5mm) pupillary asymmetry of unclear significance. Lungs clear, no evidence of volume overload, no indication of DVT. Broad workup workup for altered mental status/syncope initiated. -EKG NSR, appropriate intervals, no ST segment or T wave abnormalities to suggest occlusive MD. Troponin negative x 2 -CT head with no intracranial hemmoraghe on my view, radiology read below with no significant findings on CTA head and neck. Low suspicion for acute neurologic event, CVA, etc, given history and overall benign neuro exam. Slight pupillary asymmetry of unclear significance, would not puruse further in the ED given otherwise reassuring exam and imaging. Advised to followup with PCP -Labs reviewed as below, CBC reassuring with no leukocytosis or anemia. CMP with no actionable abnormalities, no hypoglycemia. Ammonia negative. ETOH negative. TSH normal. beta hcg negative. UA not infected. -D-dimer elevated, concerning in the setting of syncope; CT PE independently reviewed, no saddle embolus on my view, radiology read below with no evident PE. No pulmonary edema to suggest new heart failure. On reassessment she reports feeling well, entirely back to normal. She reports that she has an appointment with her program development specialist scheduled for tomorrow at 1pm. Given her history, high-risk syncope, no clear provoking factor, offered observation overnight which patient declined. She strongly prefers to go home and see her program development specialist tomorrow which is not an entirely unreasonable plan. Will have someone with her overnight and will re-present to the ED should symptoms return. I reviewed with Ms. Hernandez and her significant other the fact that I cannot say for sure that nothing would happen overnight and that it is possible she could have another potentially more serious event which could result in ; they voiced understanding of my concerns. Ms. Hernandez again stated that she would prefer to go home and follow up with her PCP and with her program development specialist tomorrow. I have no indication to hold her against her will. Discharged home against medical advice; discharge instructions and return precautions were reviewed with patient who verbalized understanding. All questions were answered. Medical Records Medical records reviewed: Yes I reviewed the patient's medical records. Imaging Data Radiologic Study: Imaging: CT Scan Radiologist's impression: IMPRESSION: 1. No acute intracranial abnormality. 2. No large vessel occlusion at the zxohpu-lq-Wryqnr. 3. Absent right A1 segment which can be a normal variant. 4. No orbital lesion. Radiologic Study #2: Imaging: CT Scan Radiologist's impression: IMPRESSION: No acute abnormality. Other findings. Lab Data Lab results reviewed: Yes I reviewed the patient's lab results. Labs: 07/05/23 14:45 Urine - Reflex from Ua Urine Culture - Pending Laboratory Tests Range/Units 07/05/23 07/05/23 07/05/23 11:45 14:32 14:45 WBC (4.4-10.8) 10^3/uL 6.46 RBC (3.93-5.22) 10^6/uL 4.52 Hgb (11.2-15.7) g/dL 13.9 Hct (36.0-46.0) % 40.3 MCV (80-95) fL 89 MCH (27.0-33.0) pg 30.8 MCHC (32.0-36.0) % 34.5 RDW (11.7-14.6) % 11.9 Plt Count (130-400) 10^3/uL 204 MPV (8.0-11.0) fL 9.6 Immature Gran % 0.3 Neutrophils % 54.7 Lymphocytes % 33.7 Monocytes % 9.3 Eosinophils % 1.5 Basophils % 0.5 Nucleated RBC % (0.0-0.3) % 0.0 Absolute Neutrophils (1.2-6.7) 10^3/uL 3.53 Absolute Lymphocytes (1.2-3.4) 10^3/uL 2.18 Absolute Monocytes (0.1-0.8) 10^3/uL 0.60 Absolute Eosinophils (0.0-0.7) 10^3/uL 0.10 Absolute Basophils (0.0-0.2) 10^3/uL 0.03 PT (9.1-11.1) sec 10.6 INR (0.9-1.1) 1.1 D-Dimer (<500) ng/mlFEU 767 H Sodium (136-145) mmol/L 135 L Potassium (3.5-5.1) mmol/L 4.8 Chloride (98-107) mmol/L 100 Carbon Dioxide (21.0-32.0) mmol/L 31.1 Anion Gap (3-11) mmol/L 3.9 BUN (7-18) mg/dL 16 Creatinine (0.55-1.02) mg/dL 0.9 Est GFR (CKD-EPI 2020) (mL/min/1.73m2) 78.37 Glucose (74-106) mg/dL 289 H Calcium (8.5-10.1) mg/dL 9.2 Magnesium (1.8-2.4) mg/dL 2.1 Total Bilirubin (0.2-1.0) mg/dL 0.5 AST (15-37) U/L 34 ALT (14-59) U/L 51 Alkaline Phosphatase (46-116) U/L 109 Ammonia (11-32) umol/L < 10 L Troponin I (<or=60) ng/L < 50 < 50 Total Protein (6.4-8.2) g/dL 7.6 Albumin (3.4-5.0) g/dL 3.7 TSH (0.36-3.74) uIU/mL 0.80 Beta HCG, Quant (1-3) mIU/mL 2 Urine Color (Yellow) Yellow Urine Clarity (Clear) Clear Urine pH (5-8) 7.5 Ur Specific Bryan (1.005-1.025) 1.015 Urine Protein (Negative) mg/dL Negative Urine Ketones (Negative) mg/dL Negative Urine Blood (Negative) Negative Urine Nitrite (Negative) Negative Urine Bilirubin (Negative) Negative Urine Urobilinogen (Up to 0.2) mg/dL 0.2 Ur Leukocyte Esterase (Negative) Trace H Urine RBC (0-2) HPF Negative Urine WBC (0-5) HPF 0-2 Ur Epithelial Cells (Negative) HPF Rare Urine Crystals (Negative) HPF Negative Urine Bacteria (Negative) HPF Rare Urine Casts (Negative) LPF Negative Urine Mucus (Negative) Negative Ur Culture Indicated? Yes Urine Glucose (Negative) mg/dL 250 H Ethyl Alcohol (<10) mg/dL < 3.0 HPI General Mode of arrival: EMS . Date/Time Provider Initiated Documentation: 07/05/23 11:39 . Limitations to Documentation: no limitations . Information obtained by: patient, family, EMS and old records reviewed . HPI Narrative: 48yo F with T1DM, CKD, hx inferior STEMI in January of 2022 s/p 2 TRACIE to RCA presenting via EMS for unresponsive episode. History from patient, EMS, and significant other at bedside. Over the past week and a half she has had worsening dyspnea on exertion. No shortness of breath, no LE edema, no chest pain. Today while she was sitting her significant other noted that she was unresponsive; he was unable to wake her despite vigorous stimulation (which is unusual) and so called EMS. EMS reports that on their arrival she was responsive only to painful stimuli, this slowly improved over the course of giraldo sport, became progressively more alert and was able to state that she had not chest pain, did have pain all over. Normal vital signs throughout per EMS, fingerstick blood glucose 284 . She does not recall passing out or if there were any preceding symptoms. No chest pain or lightheadedness at any point that she can recall. Her significant other reports that she had similar symptoms (progressive MAGAÑA) prior to her heart attack. She is otherwise in her usual state of health with no fevers, chills, rash, nausea, vomiting, abdominal pain, LE edema, numbness, tingling, weakness, or other concerns. Related Data Home Medications Medication Instructions Recorded Confirmed cholecalciferol (vitamin D3) 25 25 mcg PO DAILY 01/12/22 07/05/23 mcg (1,000 unit) tablet metoprolol succinate 50 mg 50 mg PO DAILY 01/12/22 07/05/23 tablet,extended release 24 hr acetone (urine) test (Ketostix 01/29/22 01/05/23 strips) albuterol sulfate 2.5 mg/3 mL 2.5 mg inhalation Q8H PRN 01/29/22 07/05/23 (0.083 %) solution for nebulization Shortness Of Breath albuterol sulfate 90 mcg/actuation 2 puff inhalation Q6H PRN 01/29/22 07/05/23 aerosol inhaler (ProAir HFA) Shortness Of Breath aspirin 81 mg chewable tablet 81 mg PO DAILY 01/29/22 07/05/23 (Children's Aspirin) glucagon 1 mg injection kit 1 mg subcut PRN PRN Hypoglycemia 01/29/22 07/05/23 atorvastatin 80 mg tablet 80 mg PO DAILY 02/22/22 07/05/23 insulin aspart U-100 100 unit/mL See Rx Instructions .Route .COMPLEX 02/22/22 07/05/23 (3 mL) subcutaneous pen (Novolog FlexPen U-100 Insulin aspart) insulin glargine 100 unit/mL (3 20 unit subcut DAILY 02/22/22 07/05/23 mL) subcutaneous pen (Basaglar KwikPen U-100 Insulin) nitroglycerin 0.4 mg sublingual 0.4 mg sublingual PRN PRN Chest 04/21/22 07/05/23 tablet Pain magnesium oxide 400 mg (241.3 mg 400 mg PO DAILY #14 tabs 04/23/22 07/05/23 magnesium) tablet Previous Rx's Medication Instructions Recorded magnesium oxide 400 mg (241.3 mg 400 mg PO DAILY #14 tabs 04/23/22 magnesium) tablet Allergies Allergy/AdvReac Type Severity Reaction Status Date / Time No Known Allergies Allergy Verified 01/05/23 14:25 General Stated Complaint: AMS/LOC MITCHELL: 2 Review of Systems Narrative: see HPI PFSH All Active Problems (Updated 07/05/23 @ 16:08 by Colette Angeles MD) Syncope (Chronic) Syncope (Chronic) Hypomagnesemia (Acute) Nonsustained paroxysmal ventricular tachycardia (Acute) Syncope (Chronic) Cancer of cervix (Acute) Vitamin D deficiency (Acute) Neuropathy (Acute) Hyperkalemia (Acute) Chronic kidney disease, stage I (Acute) Hearing loss (Acute) Blind right eye (Acute) Visual loss (Acute) Acute pain in female pelvis (Acute) Cellulitis of foot (Acute) Elevated troponin (Acute) Diabetes (Chronic) Medical History Asthma CAD (coronary artery disease), [place] coronary artery GERD (gastroesophageal reflux disease) History of deep vein thrombophlebitis of lower extremity IDDM (insulin dependent diabetes mellitus) Neurogenic bladder Surgical History History of partial hysterectomy Social History Smoking/Tobacco Use Status: Never Smoking risk assessment performed?: Yes Alcohol Intake: never Drug use: Rarely Substance use type: marijuana Seatbelt use: always Do you feel safe at home: Yes Do you feel safe in your relationship?: Yes Female Reproductive History Menstrual Menopause type: surgical History History 14 Para Hx # Term Pregnancies Multiple births Hx # Pregnancies 1 Ectopic pregnancies AB induced Hx Number of Living Children AB spontaneous Exam Narrative Exam Narrative: General: Alert, chronically ill appearing, in no acute distress. Head: Normocephalic, atraumatic Neck: Trachea midline, Neck supple. ENT: MMM. Cardiac: RRR, no murmurs appreciated Resp: No respiratory distress. CTAB. Abd: Soft, non-distended, nontender : No suprapubic tenderness. No CVA tenderness. Extremities: No deformities. No peripheral edema. Neuro: GCS 15. Pupils reactive bilaterally, slightly asymmetric (left pupil 2.5mm to 1mm, right pupil 2mm to 1mm). Fluent speech, no dysarthria. Motor- 5/5 strength symmetric bilateral upper and lower extremities Sensation- Intact to light touch and symmetric multiple dermatomes including upper and lower extremities Coordination- No dysmetria on finger to nose Gait/station: Normal stance. No truncal ataxia. Steady gait with equal normal steps CRANIAL NERVES: II: Pupils equal and reactive, III, IV, : EOM intact, no gaze preference or deviation, no nystagmus. V: normal sensation in V1, V2, and V3 segments bilaterally VII: no asymmetry, no nasolabial fold flattening VIII: normal hearing to speech IX, X: normal palatal elevation, no uvular deviation XII: midline tongue protrusion Course Vital Signs Vital signs: Vital Signs Pulse 77 07/05/23 11:31 Respiratory Rate 14 07/05/23 11:31 Pulse Oximetry 100 07/05/23 11:31 Pulse 77 07/05/23 11:31 Respiratory Rate 14 07/05/23 11:31 Blood Pressure Position Supine 07/05/23 11:31 Pulse Oximetry 100 07/05/23 11:31 Oxygen Delivery Method Nasal Cannula 07/05/23 11:31 Oxygen Flow Rate 2 07/05/23 11:31
--- NOTE | 2023-07-05 11:45 | DI.CT_ITS ---
Exam(s) CT BRAIN NECK CTA EXAM: CT BRAIN NECK CTA CLINICAL HISTORY: syncope, left pupil mydriasis compared to right. TECHNIQUE: Imaging Protocol: Axial CT angiography was performed with multi-slice acquisition and mu lti-planar and/or 3D reconstructions. CONTRAST MATERIAL: Intravenous: Omnipaque 350 Contrast volume:structured data in ml COMPARISON: CT CT CHEST PE CTA from 07/22/2022 FINDINGS: CTA Neck W: Aortic arch anatomy: The aortic arch anatomy is bovine. There is no significant stenosis at the orig in of the great vessels off of the aortic arch. No intimal flap evident. Anterior circulation: Both common carotid arteries ascend with normal luminal diameters. At the level the carotid bulbs and proximal internal carotid arteries there is no significant plaque and no significant stenosis evident. Both internal carotid arteries are patent in the upper neck and skull base-carotid canals. Posterior circulation: Both vertebral arteries originate in conventional fashion off of the subclavian arteries and there is no obvious stenosis at the origin of the vertebral arteries. Left vertebral artery is dominant. No evidence of intraluminal thrombus in the vertebral arteries an d no evidence of vertebral artery dissection. Both vertebral arteries contribute to the formation of the basilar artery at the skull base. CTA Brain W: Anterior circulation: Both internal carotid arteries are patent in the skull base-carotid canals as well as within the cave rnous sinuses. Supraclinoid aspects of both internal carotid arteries are patent. Left A1 segment is patent. Right A1 segment is not opacified. Both anterior cerebral arteries are patent. There is no aneurysm at t he level of the anterior communicating artery. Both middle cerebral arteries are patent with no evidence of significant stenosis nor intraluminal th rombus. There also no aneurysms of these vessels. Posterior circulation: The basilar artery ascends in the midline. Distally it gives off patent bilateral superior cerebella r arteries. Above this level the basilar artery terminates as patent bilateral posterior cerebral arteries. There is a posterior communicating artery noted on the left side of the npsrou-nq-Kfsrjg. There is no evidence of aneurysm at the tip of the basilar artery nor elsewhere in the srcvsa-ue-Mtty is. CT BRAIN: There is no evidence of intracranial hemorrhage, mass effect, or shift of midline structures. There are no extra-axial fluid collections. Ventricles are not enlarged or shifted. There are no ring enh ancing lesions in the brain and no abnormal meningeal enhancement. IMPRESSION: 1. Patent carotid arteries in the neck. No significant atherosclerotic disease in the carotid arteri es in the neck and no significant stenosis. Bovine aortic arch configuration incidentally noted. 2. Patent vertebral arteries. 3. Patent intracranial arteries. 4. The right A1 segment is not opacified. This may be developmental. RADIATION DOSE DELIVERED: Total DLP DATA REPOSITORY: All CT scans at this facility are submitted to the National Radiology Data Registry (NRDR) Dose Index Registry (DIR) with the [employer] (ACR). RADIATION OPTIMIZATION: All CT scans at this facility use at least one of these dose optimization te chniques: automated exposure control; mA and/or kV adjustment per patient size (includes targeted exa ms where dose is matched to clinical indication); or iterative reconstruction.
[2023-07-05] MEDS: Normal Saline Flush 10 ML SYR IVP (11:51)
[2023-07-05] MEDS: Normal Saline - Diluent 50 ML VIAL IJ ×2 (11:52→13:05)
[2023-07-05] MEDS: Omnipaque 350 MG/ML 100 ML BTL IJ ×2 (11:53→13:03)
[2023-07-05 11:56] LABS: Abs Immature Grans 0.02 10^3/uL (0.0-0.06); Absolute Basophil Count 0.03 10^3/uL (0.0-0.2); Absolute Lymphocyte Count 2.18 10^3/uL (1.2-3.4); Absolute Neutrophil Count 3.53 10^3/uL (1.2-6.7); Basophils % 0.5; Eosinophils % 1.5; HCT 40.3 % (36.0-46.0); HGB 13.9 g/dL (11.2-15.7); Immature Grans % 0.3; Lymphocytes % 33.7; MCH 30.8 pg (27.0-33.0); MCHC 34.5 % (32.0-36.0); MCV 89 fL (80-95); MPV 9.6 fL (8.0-11.0); Monocytes % 9.3; Neutrophils % 54.7; Platelet Count 204 10^3/uL (130-400); RBC 4.52 10^6/uL (3.93-5.22); RDW 11.9 % (11.7-14.6); RDW-SD 38.7 fL; WBC 6.46 10^3/uL (4.4-10.8)
[2023-07-05 12:08] LABS: INR 1.1 (0.9-1.1); Prothrombin Time 10.6 sec (9.1-11.1)
[2023-07-05 12:11] LABS: Ammonia < 10 umol/L (11-32)
[2023-07-05 12:20] LABS: ALT 51 U/L (14-59); AST 34 U/L (15-37); Albumin 3.7 g/dL (3.4-5.0); Alkaline Phosphatase 109 U/L (46-116); Anion Gap 3.9 mmol/L (3-11); BUN 16 mg/dL (7-18); Bilirubin, Total 0.5 mg/dL (0.2-1.0); CO2 31.1 mmol/L (21.0-32.0); CREATININE 0.9 mg/dL (0.55-1.02); Calcium 9.2 mg/dL (8.5-10.1); Chloride 100 mmol/L (98-107); Estimated GFR 78.37 (mL/min/1.73m2); Glucose 289 mg/dL (74-106); Magnesium 2.1 mg/dL (1.8-2.4); Potassium 4.8 mmol/L (3.5-5.1); Sodium 135 mmol/L (136-145); Total Protein 7.6 g/dL (6.4-8.2); Troponin I < 50 ng/L (<or=60)
[2023-07-05 12:30] LABS: ETHANOL BLOOD < 3.0 mg/dL (<10)
--- NOTE | 2023-07-05 12:30 | DI.CT_ITS ---
Exam(s) CT CHEST PE CTA EXAM: CT CHEST PE CTA CLINICAL HISTORY: syncope. TECHNIQUE: Imaging Protocol: CT angiography of the chest was performed using pulmonary embolus kishor col. Multi planar reconstructions were performed. CONTRAST MATERIAL: Intravenous: Omnipaque 350 Contrast volume: 100 cc COMPARISON: CT CT BRAIN NECK CTA from 07/05/2023 FINDINGS: CHEST: PULMONARY ARTERIES: There are no intraluminal filling defects to suggest acute pulmonary emboli. LUNGS: There are no infiltrates nor evidence of pulmonary infarction.. There are no pleural effusions . MEDIASTINUM: There is no hilar nor mediastinal adenopathy. CARDIAC: Heart size is upper normal. There is no pericardial effusion.Caliber of the thoracic aorta is within normal limits. No evidence of dissection. There is no significant shift of the interventri cular septum. PARTIALLY VISUALIZED UPPERMOST ABDOMEN: No obvious findings OSSEOUS: No significant osseous lesions.. IMPRESSION: 1. No evidence of acute pulmonary emboli. No evidence of pulmonary infarction.No pleural effusions. No lung infiltrates. 2. No evidence of aortic dissection. No pericardial effusion. RADIATION DOSE DELIVERED: Total DLP DATA REPOSITORY: All CT scans at this facility are submitted to the National Radiology Data Registry (NRDR) Dose Index Registry (DIR) with the [employer] (ACR). RADIATION OPTIMIZATION: All CT scans at this facility use at least one of these dose optimization te chniques: automated exposure control; mA and/or kV adjustment per patient size (includes targeted exa ms where dose is matched to clinical indication); or iterative reconstruction.
[2023-07-05 12:37] LABS: D-Dimer 767 ng/mlFEU (<500)
[2023-07-05 12:39] LABS: HCG Quant, Pregnancy 2 mIU/mL (1-3)
[2023-07-05] MEDS: Normal Saline 1,000 ML 1000 ML IV (12:46)
--- NOTE | 2023-07-05 12:46 | DI.VRAD_ITS ---
PROCEDURE INFORMATION: Exam: CTA Head With Contrast, Arteriography Exam date and time: 07/05/2023 11:54 AM Age: 48 years old Clinical indication: Syncope and collapse; Patient HX: Syncope, left pupil mydriasis compared to right TECHNIQUE: Imaging protocol: Computed tomographic angiography of the head with contrast. Exam focused on the arteries. 3D rendering (Not supervised by radiologist): MIP and/or 3D reconstructed images were created by the technologist. COMPARISON: No relevant prior studies available. 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 Right middle cerebral artery: No occlusion or significant stenosis. No aneurysm. Right anterior cerebral artery: Absent right A1 segment which can be a normal variant. Left internal carotid artery: Vhna-yq-yugwsyvm cavernous carotid disease on the left. Left middle cerebral artery: No occlusion or significant stenosis. No aneurysm. Left anterior cerebral artery: No occlusion or significant stenosis. No aneurysm. POSTERIOR CIRCULATION: Right vertebral artery: No occlusion or significant stenosis. No aneurysm. Left vertebral artery: No occlusion or significant stenosis. No aneurysm. Basilar artery: No occlusion or significant stenosis. No aneurysm. Right posterior cerebral artery: No occlusion or significant stenosis. No aneurysm. Left posterior cerebral artery: No occlusion or significant stenosis. No aneurysm. Veins: Venous contamination without venous thrombus. Brain: Mild diffuse involutional changes in the brain are compatible with age. No acute hemorrhage or acute territorial infarct. Symmetric physiologic basal gangliar calcifications are present bilaterally. No enhancing lesions in the brain. Cerebral ventricles: No ventriculomegaly. Bones/joints: Unremarkable. No acute fracture. Soft tissues: Unremarkable. IMPRESSION: 1. No acute intracranial abnormality. 2. No large vessel occlusion at the froznt-az-Hrjwst. 3. Absent right A1 segment which can be a normal variant. 4. No orbital lesion. PROCEDURE INFORMATION: Exam: CTA Neck With Contrast Exam date and time: 07/05/2023 11:54 AM Age: 48 years old Clinical indication: Syncope and collapse; Patient HX: Syncope, left pupil mydriasis compared to right TECHNIQUE: Imaging protocol: Computed tomographic angiography of the neck with contrast. Exam focused on the cervical segments of the vasculature. 3D rendering (Not supervised by radiologist): MIP and/or 3D reconstructed images were created by the technologist. COMPARISON: CT CHEST PE CTA 07/22/2022 9:09 PM FINDINGS: Right common carotid artery: No stenosis. No dissection or occlusion. Right internal carotid artery: No stenosis of the extracranial segment. No dissection or occlusion. Right external carotid artery: No occlusion or stenosis of the origin. Left common carotid artery: No stenosis. No dissection or occlusion. Left internal carotid artery: No stenosis of the extracranial segment. No dissection or occlusion. Left external carotid artery: No occlusion or stenosis of the origin. Right vertebral artery: No stenosis. No dissection or occlusion. Left vertebral artery: No stenosis. No dissection or occlusion. Thyroid: Prominent thyroid without focal lesions. Lymph nodes: No lymphadenopathy. Soft tissues: Normal. No significant soft tissue swelling. Bones/joints: Degenerative changes in the spine without acute fracture. Reversal of the lordosis can be seen in spasm. Lungs: Grossly clear lungs. Esophagus: Patulous esophagus. IMPRESSION: No significant carotid or vertebral artery stenosis by NASCET criteria. REFERENCES: NASCET CRITERIA. The degree of stenosis in the cervical segment of the internal carotid artery is based on NASCET criteria. Normal is no stenosis. Mild is less than 50% stenosis. Moderate is 50-69% stenosis. Severe is 70% to 99% stenosis. Total occlusion is no detectable patent lumen. Dictated and Authenticated by: Willis Mcdaniel MD. Ordering:JUSTIN Alvarenga MD
--- NOTE | 2023-07-05 13:30 | DI.VRAD_ITS ---
PROCEDURE INFORMATION: Exam: CTA Chest With Contrast Exam date and time: 07/05/2023 12:57 PM Age: 48 years old Clinical indication: Abnormal findings; Abnormal diagnostic tests; Elevated d-dimer; Patient HX: Syncope, elevated d dimer TECHNIQUE: Imaging protocol: Computed tomographic angiography of the chest with contrast. Exam focused on the arteries. 3D rendering (Not supervised by radiologist): MIP and/or 3D reconstructed images were created by the technologist. COMPARISON: CT CHEST PE CTA 07/22/2022 9:09 PM FINDINGS: Pulmonary arteries: No acute pulmonary embolism. Poor evaluation of the subsegmental pulmonary arteries due to mild motion limited enhancement. Aorta: No aortic aneurysm or dissection. Mild atherosclerotic changes of the abdominal aorta. Lungs: Dependent likely atelectatic changes in the lungs without dense consolidation. Pleural spaces: Unremarkable. No pneumothorax. No pleural effusion. Heart: The heart is not enlarged and I see no significant pericardial or mediastinal fluid. Coronary arteries: No significant coronary artery calcifications. Mediastinal space: Patulous esophagus. Lymph nodes: Unremarkable. No enlarged lymph nodes. Liver: Low density liver suggesting fatty infiltration without focal lesions or ductal dilitation. Consider non-emergent follow-up with LFT values. Bones/joints: No displaced fracture line. Soft tissues: No significant subcutaneous hematoma. IMPRESSION: No acute abnormality. Other findings. Dictated and Authenticated by: Willis Mcdaniel MD. Ordering:JUSTIN Alvarenga MD
[2023-07-05 14:50] LABS: Bilirubin Negative (Negative); Blood Negative (Negative); Clarity Clear (Clear); Glucose 250 mg/dL (Negative); Ketones Negative (Negative); Leukocyte Esterase Trace (Negative); Nitrite Negative (Negative); Specific Gravity 1.015 (1.005-1.025); Urobilinogen 0.2 mg/dL (Up to 0.2); pH 7.5 (5-8)
[2023-07-05 14:58] LABS: Troponin I < 50 ng/L (<or=60)
[2023-07-05 15:01] LABS: Epithelial Cells Rare HPF (Negative); RBC Negative HPF (0-2); WBC 0-2 HPF (0-5)
[2023-07-05 15:02] LABS: Bacteria Rare HPF (Negative); C & S Indicated? Yes; Casts Negative LPF (Negative); Crystals Negative HPF (Negative); Mucus Negative (Negative)
== END 2023-07-05 17:00 | disposition home or self-care (01) ==
PROVIDERS: Emergency Provider Student in an Organized Health Care Education/Training Program; PCP Physician Assistant
DX: R55 Syncope and collapse (principal); E10.22 Type 1 diabetes mellitus with diabetic chronic kidney disease; N18.9 Chronic kidney disease, unspecified
CPT/HCPCS: 36415; 70496; 70498; 71275; 80053; 93005; 96360; 96361; 99285; 80320; 81003; 81015; 82140; 83735; 84443; 84484; 84702; 85025; 85379; 85610; 87086; 93010; 99284; J3490

== ENCOUNTER → 2023-07-06 12:10 | Outpatient (BNVA) | payer MEDICARE, MEDICAID, SELFPAY | PROVIDERS: PCP Physician Assistant; Visit Provider Internal Medicine Cardiovascular Disease | DX: I25.10 Atherosclerotic heart disease of native coronary artery without angina pectoris (principal) | CPT/HCPCS: 99213 ==

== ENCOUNTER → 2023-07-30 09:18 | Outpatient (BNVA) | payer MEDICARE, MEDICAID, SELFPAY | PROVIDERS: PCP Physician Assistant; Referring Provider Physician Assistant; Visit Provider Podiatrist | DX: E10.42 Type 1 diabetes mellitus with diabetic polyneuropathy (principal); N18.1 Chronic kidney disease, stage 1; E10.69 Type 1 diabetes mellitus with other specified complication; L60.3 Nail dystrophy; I73.89 Other specified peripheral vascular diseases; R09.89 Other specified symptoms and signs involving the circulatory and respiratory systems; R60.0 Localized edema; R23.4 Changes in skin texture; L65.9 Nonscarring hair loss, unspecified; M79.674 Pain in right toe(s); M79.675 Pain in left toe(s) | CPT/HCPCS: 11721; 99213 ==

== ENCOUNTER 2023-08-21 21:52 | Emergency (ER) | payer MEDICARE, MEDICAID, SELFPAY ==
[2023-08-21] VITALS (16 sets, daily range): BP systolic 155; BP diastolic 65; PULSE 65–84; RESP 9–19; TEMP 36.3; O2SAT 100
--- NOTE | 2023-08-21 21:45 | RT.EKG_ITS ---
APPROVED REPORT Exam: Resting ECG Reason for Exam: vomiting Patient Location: E HR:73 bpm ECG Measurements Heart Rate 73 AXIS OH 149 P 68 QRSd 114 QRS 1 QT 395 T 67 QTc 437 Conclusion Sinus rhythm..V-rate 60- [address] segment or T wave abnormalities to suggest occlusive [place]
--- NOTE | 2023-08-21 21:49 | W.ED.GENAD ---
HPI General Mode of arrival: EMS. Date/Time Provider Initiated Documentation: 08/21/23 21:54. Limitations to Documentation: no limitations. Information obtained by: patient, EMS and old records reviewed. HPI Narrative: 48yo F with T1DM, CKD, hx inferior STEMI in January of 2022 s/p 2 TRACIE to RCA presenting via EMS for nausea and vomiting. History from patient & EMS. Today around 3pm had multiple THC edibles. After this she began vomiting and has not been able to keep anything down since then. Nonbloody nonbilious emesis. No abdominal pain, dysuria, or hematuria. No fevers, chills, rash, chest pain, shortness of breath, lightheadedness numbness, tingling, weakness, or other concerns. She was in her usual state of health prior to the onset of symptoms this afternoon. No syncope. No recent head trauma. [facility] records reviewed including most recent ED visit in July for syncope and cardiology clinic visits. Related Data Home Medications Medication Instructions Recorded Confirmed cholecalciferol (vitamin D3) 25 25 mcg PO DAILY 01/12/22 08/21/23 mcg (1,000 unit) tablet metoprolol succinate 50 mg 50 mg PO DAILY 01/12/22 08/21/23 tablet,extended release 24 hr acetone (urine) test (Ketostix 01/29/22 08/05/23 strips) albuterol sulfate 2.5 mg/3 mL 2.5 mg inhalation Q8H PRN 01/29/22 08/21/23 (0.083 %) solution for nebulization Shortness Of Breath albuterol sulfate 90 mcg/actuation 2 puff inhalation Q6H PRN 01/29/22 08/21/23 aerosol inhaler (ProAir HFA) Shortness Of Breath aspirin 81 mg chewable tablet 81 mg PO DAILY 01/29/22 08/21/23 (Children's Aspirin) glucagon 1 mg injection kit 1 mg subcut PRN PRN Hypoglycemia 01/29/22 08/21/23 atorvastatin 80 mg tablet 80 mg PO DAILY 02/22/22 08/21/23 insulin aspart U-100 100 unit/mL See Rx Instructions .Route .COMPLEX 02/22/22 08/21/23 (3 mL) subcutaneous pen (Novolog FlexPen U-100 Insulin aspart) insulin glargine 100 unit/mL (3 20 unit subcut DAILY 02/22/22 08/21/23 mL) subcutaneous pen (Basaglar KwikPen U-100 Insulin) nitroglycerin 0.4 mg sublingual 0.4 mg sublingual PRN PRN Chest 04/21/22 08/21/23 tablet Pain magnesium oxide 400 mg (241.3 mg 400 mg PO DAILY #14 tabs 04/23/22 08/21/23 magnesium) tablet Previous Rx's Medication Instructions Recorded magnesium oxide 400 mg (241.3 mg 400 mg PO DAILY #14 tabs 04/23/22 magnesium) tablet Allergies Allergy/AdvReac Type Severity Reaction Status Date / Time No Known Allergies Allergy Verified 08/21/23 21:48 General Stated Complaint: AMS/LOC MITCHELL: 3 Review of Systems Narrative: see HPI Exam Narrative Exam Narrative: General: Alert, clutching emesis bag Head: Normocephalic, atraumatic Neck: Trachea midline, ?Neck supple. ENT: ?Tachy MM.? No oropharygeal lesions or exudate. Cardiac: ?RRR, no murmurs appreciated Resp: No respiratory distress. CTAB. Abd: ?Soft, non-distended, nontender : ?No suprapubic tenderness. No CVA tenderness. Extremities: ?No deformities.? No peripheral edema. Neuro: ? GCS 15.? Pupils reactive, slight asymmetry baseline for patient. EOMI.? Fluent speech, no dysarthria. Normal sensation in V1, V2, and V3 segments bilaterally. No asymmetry, no nasolabial fold flattening. Normal hearing to speech. Normal palatal elevation, no uvular deviation. Midline tongue protrusion Motor- 5/5 strength symmetric bilateral upper and lower extremities Sensation- ?Intact to light touch and symmetric multiple dermatomes including upper and lower extremities Coordination- No dysmetria on finger to nose Course Vital Signs Vital signs: Vital Signs Temperature 36.3 C L 08/21/23 21:42 Pulse 77 08/21/23 21:42 Respiratory Rate 16 08/21/23 21:42 Blood Pressure 155/65 H 08/21/23 21:42 Pulse Oximetry 100 08/21/23 21:42 Temperature 36.3 C L 08/21/23 21:42 Temperature Source Skin 08/21/23 21:42 Pulse 77 08/21/23 21:42 Respiratory Rate 16 08/21/23 21:42 Respiratory Effort Normal, Non-Labored 08/21/23 21:46 Blood Pressure 155/65 H 08/21/23 21:42 Pulse Oximetry 100 08/21/23 21:42 Oxygen Delivery Method Room Air 08/21/23 21:42 Oxygen Flow Rate 0 08/21/23 21:42 Pain Level 0 08/21/23 21:42 Medical Decision Making 48yo F with T1DM, CKD, hx inferior STEMI in January of 2022 s/p 2 TRACIE to RCA presenting via EMS for nausea and vomiting. History from patient & EMS. Today around 3pm had multiple THC edibles. After this she began vomiting and has not been able to keep anything down since then. Normal blood glucose for EMS. Vital signs reassuring on arrival. Normal neurologic exam aside from baseline pupillary asymmetry. No abdominal tenderness. Most likely adverse reaction to THC, however given medical history will evaluate for other potential causes with EKG, labs. Low suspicion for acute intrabdomianl process or intracranial process given reassuring abdominal and neurologic exams; would not pursue CT imaging at this time. Given 1L IVFB, IV zofran for symptoms. EKG NSR, appropriate intervals, no ST segment or T wave abnormalities to suggest occlusive [place]. Labs reviewed as below, CBC reassuring with no leukocytosis, CMP with mild hyperglycemia to 207, no DKA, no significant electrolyte abnormalities, ETOH negative. Troponin negative in the setting of 6+ hours of symptoms, would not further pursue acute coronary syndrome. Signed out to oncoming physician, plan to PO challenge, reassess. Lab Data Lab results reviewed: Yes I reviewed the patient's lab results. Labs: Laboratory Tests Range/Units 08/21/23 22:20 WBC (4.4-10.8) 10^3/uL 7.04 RBC (3.93-5.22) 10^6/uL 4.44 Hgb (11.2-15.7) g/dL 13.6 Hct (36.0-46.0) % 39.8 MCV (80-95) fL 90 MCH (27.0-33.0) pg 30.6 MCHC (32.0-36.0) % 34.2 RDW (11.7-14.6) % 12.3 Plt Count (130-400) 10^3/uL 181 MPV (8.0-11.0) fL 9.5 Immature Gran % 0.4 Neutrophils % 77.5 Lymphocytes % 15.2 Monocytes % 6.1 Eosinophils % 0.4 Basophils % 0.4 Nucleated RBC % (0.0-0.3) % 0.0 Absolute Neutrophils (1.2-6.7) 10^3/uL 5.45 Absolute Lymphocytes (1.2-3.4) 10^3/uL 1.07 L Absolute Monocytes (0.1-0.8) 10^3/uL 0.43 Absolute Eosinophils (0.0-0.7) 10^3/uL 0.03 Absolute Basophils (0.0-0.2) 10^3/uL 0.03 Sodium (136-145) mmol/L 137 Potassium (3.5-5.1) mmol/L 4.3 Chloride (98-107) mmol/L 100 Carbon Dioxide (21.0-32.0) mmol/L 30.1 Anion Gap (3-11) mmol/L 6.9 BUN (7-18) mg/dL 17 Creatinine (0.55-1.02) mg/dL 0.9 Est GFR (CKD-EPI 2020) (mL/min/1.73m2) 78.37 Glucose (74-106) mg/dL 207 H Calcium (8.5-10.1) mg/dL 9.8 Magnesium (1.8-2.4) mg/dL 2.1 Total Bilirubin (0.2-1.0) mg/dL 0.7 AST (15-37) U/L 32 ALT (14-59) U/L 47 Alkaline Phosphatase (46-116) U/L 104 Troponin I (< or =60) ng/L < 50 Total Protein (6.4-8.2) g/dL 8.1 Albumin (3.4-5.0) g/dL 4.0 Quality:SDOH Health Related Social Needs: No Data to Display PFSH All Active Problems (Updated 08/05/23 @ 10:15 by Tiffanie Lucero NP) 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 of right ear (Acute) Nail dystrophy (Acute) Type 1 diabetes mellitus with diabetic polyneuropathy (Acute) Retinopathy (Acute) Type 1 diabetes mellitus (Acute) Asthma (Chronic) GERD (gastroesophageal reflux disease) (Chronic) CAD (coronary artery disease), [place] coronary artery (Acute) Neurogenic bladder (Acute) IDDM (insulin dependent diabetes mellitus) (Chronic) Nonsustained paroxysmal ventricular tachycardia (Acute) Vitamin D deficiency (Acute) Neuropathy (Acute) Chronic kidney disease, stage I (Acute) Hearing loss (Acute) Blind right eye (Acute) Cellulitis of foot (Acute) Medical History Syncope Hypomagnesemia Cancer of cervix Hyperkalemia Visual loss Acute pain in female pelvis Elevated troponin History of deep vein thrombophlebitis of lower extremity Surgical History History of partial hysterectomy Social History Smoking/Tobacco Use Status: Never Smoking risk assessment performed?: Yes Alcohol Intake: never Drug use: Daily Substance use type: marijuana Details: edibles Seatbelt use: always Do you feel safe at home: Yes Do you feel safe in your relationship?: Yes Female Reproductive History Menstrual Menopause type: surgical History History 14 Para Hx # Term Pregnancies Multiple births Hx # Pregnancies 1 Ectopic pregnancies AB induced Hx Number of Living Children AB spontaneous Discharge Plan Discharge Details Chief Complaint: AMS/LOC Primary Care Provider: Jose Pittman ED Provider: Colette Angeles Home Meds and New Rx's Prescriptions: No Action albuterol sulfate 2.5 mg /3 mL (0.083 %) solution for nebulization 2.5 mg inhalation Q8H PRN (Reason: Shortness Of Breath) (DME) Ketostix Strip See Rx Instructions .Route Rx Instructions: As directed glucagon 1 mg kit 1 mg subcut PRN PRN (Reason: Hypoglycemia) aspirin [Children's Aspirin] 81 mg tablet,chewable 81 mg PO DAILY albuterol sulfate [ProAir HFA] 90 mcg/actuation HFA aerosol inhaler 2 puff inhalation Q6H PRN (Reason: Shortness Of Breath) metoprolol succinate 50 mg tablet extended release 24 hr 50 mg PO DAILY Patient Comments: Take 1 tablet by mouth once a day cholecalciferol (vitamin D3) 25 mcg (1,000 unit) tablet 25 mcg PO DAILY Patient Comments: TAKE ONE-HALF TABLET BY MOUTH TWICE A DAY atorvastatin 80 mg tablet 80 mg PO DAILY Patient Comments: Take 1 tablet by mouth every evening insulin glargine [Basaglar KwikPen U-100 Insulin] 100 unit/mL (3 mL) insulin pen 20 unit SUBCUT DAILY Patient Comments: INJECT 22 UNITS UNDER THE SKIN EVERY MORNING insulin aspart U-100 [Novolog FlexPen U-100 Insulin] 100 unit/mL (3 mL) insulin pen See Rx Instructions .ROUTE .COMPLEX Patient Comments: INJECT BASED ON CARBS AT A RATION OF 1:10 GIVE AND CORRECT FOR BG >150 BASED ON ISF 1:25 Rx Instructions: per sliding before meals. nitroglycerin 0.4 mg Tablet, Sublingual 0.4 mg sublingual PRN PRN (Reason: Chest Pain) magnesium oxide 400 mg (241.3 mg magnesium) tablet 400 mg PO DAILY Qty: 14 0RF
[2023-08-21 22:26] LABS: Abs Immature Grans 0.03 10^3/uL (0.0-0.06); Absolute Basophil Count 0.03 10^3/uL (0.0-0.2); Absolute Eosinophil Count 0.03 10^3/uL (0.0-0.7); Absolute Lymphocyte Count 1.07 10^3/uL (1.2-3.4); Absolute Monocyte Count 0.43 10^3/uL (0.1-0.8); Absolute Neutrophil Count 5.45 10^3/uL (1.2-6.7); Basophils % 0.4; Eosinophils % 0.4; HCT 39.8 % (36.0-46.0); HGB 13.6 g/dL (11.2-15.7); Immature Grans % 0.4; Lymphocytes % 15.2; MCH 30.6 pg (27.0-33.0); MCHC 34.2 % (32.0-36.0); MCV 90 fL (80-95); MPV 9.5 fL (8.0-11.0); Monocytes % 6.1; Neutrophils % 77.5; Platelet Count 181 10^3/uL (130-400); RBC 4.44 10^6/uL (3.93-5.22); RDW 12.3 % (11.7-14.6); RDW-SD 40.5 fL; WBC 7.04 10^3/uL (4.4-10.8)
[2023-08-21] MEDS: Normal Saline 1,000 ML 1000 ML IV (22:28)
[2023-08-21] MEDS: Ondansetron 4 MG/2 ML VIAL IVP (22:28)
[2023-08-21 22:44] LABS: ALT 47 U/L (14-59); AST 32 U/L (15-37); Alkaline Phosphatase 104 U/L (46-116); Anion Gap 6.9 mmol/L (3-11); BUN 17 mg/dL (7-18); Bilirubin, Total 0.7 mg/dL (0.2-1.0); CO2 30.1 mmol/L (21.0-32.0); CREATININE 0.9 mg/dL (0.55-1.02); Calcium 9.8 mg/dL (8.5-10.1); Chloride 100 mmol/L (98-107); Estimated GFR 78.37 (mL/min/1.73m2); Glucose 207 mg/dL (74-106); Magnesium 2.1 mg/dL (1.8-2.4); Potassium 4.3 mmol/L (3.5-5.1); Sodium 137 mmol/L (136-145); Total Protein 8.1 g/dL (6.4-8.2); Troponin I < 50 ng/L (< or =60)
[2023-08-21 22:54] LABS: ETHANOL BLOOD < 3.0 mg/dL (<10)
[2023-08-22] VITALS (40 sets, daily range): PULSE 59–85; RESP 9–26
[2023-08-22 00:50] LABS: *AMPHETAMINES SCREEN URINE Negative (Negative); *BARBITURATES SCREEN URINE Negative (Negative); *BENZODIAZEPINES SCREEN URINE Negative (Negative); Cannabinoids THC Positive (Negative); Cocaine Screen,Urine Negative (Negative); METHADONE URINE SCREEN Negative (Negative); OPIATES URINE SCREEN Negative (Negative); Tricyclic Antidepressants Negative (Negative)
--- NOTE | 2023-08-22 06:17 | W.EDPROG ---
Date of service: 08/22/23 Time of Service: 06:17 Medical Decision Making Patient was signed out to me by my colleague Zee Hernández Please refer to HPI, physical exam, assessment and plan. At the time of signout patient had been medically cleared however we were waiting for the effects of the edibles to wear off. At around midnight the patient was feeling much better but was still slightly sleepy. Unfortunately the only way for the patient to get home or for her to be able to get to the emergency department was by EMS or using RCT. Patient was allowed to sleep in the emergency department throughout the rest of the night. Currently at 6:30 AM the patient is feeling much better. She ambulates well, she shows no signs of intoxication. Patient states that she feels at her baseline. Patient stable for discharge. I recommended against utilizing edibles in the future. I have extensively reviewed the treatment plan and discharge instructions with the patient. I have addressed all patient concerns at this time. The patient was made aware of what symptoms to monitor for that would warrant a return to the emergency department. Discussed the plan with the patient, they demonstrate verbal understanding and agreement with our assessment and plan at this time. The documentation in this chart was dictated using [employer] dictation software. Please excuse any dictation errors. Quality:SDOH Health Related Social Needs: No Data to Display Sign Out Sign Out Data: Sign Out Comment: 48yo F presenting with N/V after THC edibles at 3pm. EKG, labs reassuring. Given IVFB, zofran. Plan to PO challenge, reassess, dc when able to tolerate fluids and clinically sober. Last updated by Colette Angeles MD at 08/21/23 23:17 Discharge Plan Disposition Condition: Good Discharge Details Chief Complaint: AMS/LOC Clinical Impression: Adverse effect of cannabis Primary Care Provider: Jose Pittman ED Provider: Piotr Savage Home Meds and New Rx's Prescriptions: No Action albuterol sulfate 2.5 mg /3 mL (0.083 %) solution for nebulization 2.5 mg inhalation Q8H PRN (Reason: Shortness Of Breath) (DME) Ketostix Strip See Rx Instructions .Route Rx Instructions: As directed glucagon 1 mg kit 1 mg subcut PRN PRN (Reason: Hypoglycemia) aspirin [Children's Aspirin] 81 mg tablet,chewable 81 mg PO DAILY albuterol sulfate [ProAir HFA] 90 mcg/actuation HFA aerosol inhaler 2 puff inhalation Q6H PRN (Reason: Shortness Of Breath) metoprolol succinate 50 mg tablet extended release 24 hr 50 mg PO DAILY Patient Comments: Take 1 tablet by mouth once a day cholecalciferol (vitamin D3) 25 mcg (1,000 unit) tablet 25 mcg PO DAILY Patient Comments: TAKE ONE-HALF TABLET BY MOUTH TWICE A DAY atorvastatin 80 mg tablet 80 mg PO DAILY Patient Comments: Take 1 tablet by mouth every evening insulin glargine [Basaglar KwikPen U-100 Insulin] 100 unit/mL (3 mL) insulin pen 20 unit SUBCUT DAILY Patient Comments: INJECT 22 UNITS UNDER THE SKIN EVERY MORNING insulin aspart U-100 [Novolog FlexPen U-100 Insulin] 100 unit/mL (3 mL) insulin pen See Rx Instructions .ROUTE .COMPLEX Patient Comments: INJECT BASED ON CARBS AT A RATION OF 1:10 GIVE AND CORRECT FOR BG >150 BASED ON ISF 1:25 Rx Instructions: per sliding before meals. nitroglycerin 0.4 mg Tablet, Sublingual 0.4 mg sublingual PRN PRN (Reason: Chest Pain) magnesium oxide 400 mg (241.3 mg magnesium) tablet 400 mg PO DAILY Qty: 14 0RF Discharge Instructions Additional Instructions: At this time the major effects of the marijuana has seemingly worn off. I would advise avoiding edible use in the future. If you notice any worsening of your symptoms, or any new symptoms such as vomiting, diarrhea, fever, chills, shortness of breath, chest pain, numbness, weakness, or fainting , please return immediately to the emergency department for reevaluation. Please follow up with your primary care provider as soon as possible for reassessment and reevaluation. As always, it was a pleasure participating in your medical care today. Referrals: Jose Pittman [Primary Care Provider] -
== END 2023-08-22 06:36 | disposition home or self-care (01) ==
PROVIDERS: Student in an Organized Health Care Education/Training Program; Emergency Provider Student in an Organized Health Care Education/Training Program; PCP Physician Assistant
DX: T40.715A Adverse effect of cannabis, initial encounter (principal); R11.2 Nausea with vomiting, unspecified; E10.42 Type 1 diabetes mellitus with diabetic polyneuropathy; I25.10 Atherosclerotic heart disease of native coronary artery without angina pectoris; N18.1 Chronic kidney disease, stage 1
CPT/HCPCS: 00123; 80053; 80307; 93005; 96361; 96374; 99284; 80320; 83735; 84484; 85025; 93010; 99283; J2405

== ENCOUNTER 2023-12-07 12:57 | Emergency (ER) | payer MEDICARE, MEDICAID, SELFPAY ==
[2023-12-07] VITALS (30 sets, daily range): BP systolic 106–120; BP diastolic 47–57; PULSE 64–85; RESP 8–22; TEMP 36.4; O2SAT 97–100
--- NOTE | 2023-12-07 12:45 | RT.EKG_ITS ---
APPROVED REPORT Exam: Resting ECG Reason for Exam: chest pain Patient Location: E HR:74 bpm ECG Measurements Heart Rate 74 AXIS DC 139 P 71 QRSd 100 QRS -23 QT 381 T 64 QTc 425 Conclusion Sinus rhythm...normal P axis, V-rate 60- 99 sinus rhtyhml normal axis normal intervals, non ischemic
--- NOTE | 2023-12-07 13:27 | W.ED.GENAD ---
Discharge Plan Disposition Patient Disposition: Home Condition: Improving Discharge Details Chief Complaint: Chest Pain Clinical Impression: Chest pain Primary Care Provider: Jose Pittman ED Provider: Willis Crook Home Meds and New Rx's Prescriptions: No Action albuterol sulfate 2.5 mg /3 mL (0.083 %) solution for nebulization 2.5 mg inhalation Q8H PRN (Reason: Shortness Of Breath) (DME) Ketostix Strip See Rx Instructions .Route Rx Instructions: As directed glucagon 1 mg kit 1 mg subcut PRN PRN (Reason: Hypoglycemia) aspirin [Children's Aspirin] 81 mg tablet,chewable 81 mg PO DAILY albuterol sulfate [ProAir HFA] 90 mcg/actuation HFA aerosol inhaler 2 puff inhalation Q6H PRN (Reason: Shortness Of Breath) ketoconazole 2 % cream 1 applic topical DAILY Qty: 60 3RF metoprolol succinate 50 mg tablet extended release 24 hr 50 mg PO DAILY Patient Comments: Take 1 tablet by mouth once a day cholecalciferol (vitamin D3) 25 mcg (1,000 unit) tablet 25 mcg PO DAILY Patient Comments: TAKE ONE-HALF TABLET BY MOUTH TWICE A DAY atorvastatin 80 mg tablet 80 mg PO DAILY Patient Comments: Take 1 tablet by mouth every evening insulin glargine [Basaglar KwikPen U-100 Insulin] 100 unit/mL (3 mL) insulin pen 20 unit SUBCUT DAILY Patient Comments: INJECT 22 UNITS UNDER THE SKIN EVERY MORNING insulin aspart U-100 [Novolog FlexPen U-100 Insulin] 100 unit/mL (3 mL) insulin pen See Rx Instructions .ROUTE .COMPLEX Patient Comments: INJECT BASED ON CARBS AT A RATION OF 1:10 GIVE AND CORRECT FOR BG >150 BASED ON ISF 1:25 Rx Instructions: per sliding before meals. nitroglycerin 0.4 mg Tablet, Sublingual 0.4 mg sublingual PRN PRN (Reason: Chest Pain) magnesium oxide 400 mg (241.3 mg magnesium) tablet 400 mg PO DAILY Qty: 14 0RF Discharge Instructions Instructions: Chest Pain (ED) Additional Instructions: Please follow-up with your primary care physician and anime designer. Please return to the emergency department for any worsening symptoms HPI General Date/Time Provider Initiated Documentation: 12/07/23 13:02. HPI Narrative: 48-year-old female history of coronary disease presents with resolved anterior chest pain that began earlier this afternoon, received 324 mg of aspirin and route by EMS. Resolved chest pain or shortness of breath. Did have some nausea and 1 episode of vomiting at home during lunch this afternoon. Now resolved. Related Data Home Medications Medication Instructions Recorded Confirmed cholecalciferol (vitamin D3) 25 25 mcg PO DAILY 01/12/22 12/07/23 mcg (1,000 unit) tablet metoprolol succinate 50 mg 50 mg PO DAILY 01/12/22 12/07/23 tablet,extended release 24 hr acetone (urine) test (Ketostix 01/29/22 12/07/23 strips) albuterol sulfate 2.5 mg/3 mL 2.5 mg inhalation Q8H PRN 01/29/22 12/07/23 (0.083 %) solution for nebulization Shortness Of Breath albuterol sulfate 90 mcg/actuation 2 puff inhalation Q6H PRN 01/29/22 12/07/23 aerosol inhaler (ProAir HFA) Shortness Of Breath aspirin 81 mg chewable tablet 81 mg PO DAILY 01/29/22 12/07/23 (Children's Aspirin) glucagon 1 mg injection kit 1 mg subcut PRN PRN Hypoglycemia 01/29/22 12/07/23 atorvastatin 80 mg tablet 80 mg PO DAILY 02/22/22 12/07/23 insulin aspart U-100 100 unit/mL See Rx Instructions .Route .COMPLEX 02/22/22 12/07/23 (3 mL) subcutaneous pen (Novolog FlexPen U-100 Insulin aspart) insulin glargine 100 unit/mL (3 20 unit subcut DAILY 02/22/22 12/07/23 mL) subcutaneous pen (Basaglar KwikPen U-100 Insulin) nitroglycerin 0.4 mg sublingual 0.4 mg sublingual PRN PRN Chest 04/21/22 12/07/23 tablet Pain magnesium oxide 400 mg (241.3 mg 400 mg PO DAILY #14 tabs 04/23/22 12/07/23 magnesium) tablet ketoconazole 2 % topical cream 1 applic topical DAILY apply to 11/05/23 12/07/23 fungal nails #60 grams Previous Rx's Medication Instructions Recorded magnesium oxide 400 mg (241.3 mg 400 mg PO DAILY #14 tabs 04/23/22 magnesium) tablet ketoconazole 2 % topical cream 1 applic topical DAILY apply to 11/05/23 fungal nails #60 grams Allergies Allergy/AdvReac Type Severity Reaction Status Date / Time No Known Allergies Allergy Verified 12/07/23 13:10 General Stated Complaint: Chest Pain MITCHELL: 2 Review of Systems Narrative: Review of Systems Constitutional: negative Eyes: negative ENT: negative Cardiovascular: Chest pain Respiratory: negative Gastrointestinal: negative : negative Musculoskeletal: negative Skin: negative Neurologic: negative Psych: negative Exam Narrative Exam Narrative: Physical Examination General: alert, awake, cooperative, resting comfortably, no acute distress HEENT: normocephalic, atraumatic; PERRL, EOM intact, conjunctiva normal; no nasal discharge; moist mucous membranes, oral and pharyngeal mucosa normal, tolerating secretions Neck: supple, trachea midline; full ROM Chest: normal to inspection Respiratory: normal respiratory effort, speaking in full sentences, clear to auscultation, no wheezing, rales or rhonchi Cardiac: regular rate, regular rhythm, S1S2 intact, no murmurs rubs or gallops GI: abdomen soft, non-tender, non-distended; no palpable mass or hepatosplenomegaly Skin: no lesions, rashes or trauma appreciated Neuro: AAOx3, normal speech, moving all extremities Extremities: No peripheral edema Psych: Appropriate mood and affect Course Vital Signs Vital signs: Vital Signs Temperature 36.4 C L 12/07/23 12:58 Pulse 76 12/07/23 12:58 Respiratory Rate 18 12/07/23 12:58 Blood Pressure 113/49 L 12/07/23 12:58 Pulse Oximetry 97 12/07/23 12:58 Temperature 36.4 C L 12/07/23 12:58 Temperature Source Tympanic 12/07/23 12:58 Pulse 75 12/07/23 13:00 Pulse 75 12/07/23 13:10 Respiratory Rate 11 L 12/07/23 13:10 Respiratory Effort Normal, Non-Labored 12/07/23 13:11 Respiratory Depth Normal 12/07/23 13:06 Respiratory Pattern Normal 12/07/23 13:06 Blood Pressure 113/49 L 12/07/23 13:00 Blood Pressure Mean 70 12/07/23 13:00 Blood Pressure Position Sitting 12/07/23 12:58 Pulse Oximetry 99 12/07/23 13:10 Oxygen Delivery Method Room Air 12/07/23 12:58 Oxygen Flow Rate 0 12/07/23 12:58 Pain Level 4 12/07/23 13:06 Medical Decision Making 48-year-old female history of coronary disease, presents with anterior chest pain not resolved, 1 episode of nausea and vomiting now resolved, no shortness of breath no peripheral edema afebrile nontoxic normotensive normal sinus rhythm nonischemic EKG. Must consider ACS versus musculoskeletal chest pain versus pleurisy versus gastritis versus enteritis versus less likely PE or aortic pathology. Screening labs imaging close reassessment 16: 30 patient resting comfortably no acute distress chest pain-free troponin negative. Patient is close follow-up with her primary care physician and anime designer. Quality:SDOH Health Related Social Needs: No Data to Display PFSH All Active Problems (Updated 12/07/23 @ 16:31 by Willis Crook MD) Chest pain (Acute) 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 of right ear (Acute) Nail dystrophy (Acute) Type 1 diabetes mellitus with diabetic polyneuropathy (Acute) Retinopathy (Acute) Type 1 diabetes mellitus (Acute) Asthma (Chronic) GERD (gastroesophageal reflux disease) (Chronic) CAD (coronary artery disease), [place] coronary artery (Acute) Neurogenic bladder (Acute) IDDM (insulin dependent diabetes mellitus) (Chronic) Nonsustained paroxysmal ventricular tachycardia (Acute) Vitamin D deficiency (Acute) Neuropathy (Acute) Chronic kidney disease, stage I (Acute) Hearing loss (Acute) Blind right eye (Acute) Cellulitis of foot (Acute) Medical History Syncope Hypomagnesemia Cancer of cervix Hyperkalemia Visual loss Acute pain in female pelvis Elevated troponin History of deep vein thrombophlebitis of lower extremity Surgical History History of partial hysterectomy Social History Smoking/Tobacco Use Status: Never Smoking risk assessment performed?: Yes Alcohol Intake: never Drug use: Daily Substance use type: marijuana Details: edibles Seatbelt use: always Do you feel safe at home: Yes Do you feel safe in your relationship?: Yes Female Reproductive History Menstrual Menopause type: surgical History History 14 Para Hx # Term Pregnancies Multiple births Hx # Pregnancies 1 Ectopic pregnancies AB induced Hx Number of Living Children AB spontaneous
[2023-12-07 13:31] LABS: Abs Immature Grans 0.02 10^3/uL (0.0-0.06); Absolute Basophil Count 0.04 10^3/uL (0.0-0.2); Absolute Eosinophil Count 0.05 10^3/uL (0.0-0.7); Absolute Lymphocyte Count 1.95 10^3/uL (1.2-3.4); Absolute Monocyte Count 0.51 10^3/uL (0.1-0.8); Absolute Neutrophil Count 3.17 10^3/uL (1.2-6.7); Basophils % 0.7 %; Eosinophils % 0.9 %; HCT 37.6 % (36.0-46.0); HGB 12.7 g/dL (11.2-15.7); Immature Grans % 0.3 %; MCH 30.9 pg (27.0-33.0); MCHC 33.8 % (32.0-36.0); MCV 92 fL (80-95); MPV 9.6 fL (8.0-11.0); Monocytes % 8.9 %; Neutrophils % 55.2 %; Platelet Count 178 10^3/uL (130-400); RBC 4.11 10^6/uL (3.93-5.22); RDW 12.2 % (11.7-14.6); RDW-SD 41.1 fL; WBC 5.74 10^3/uL (4.4-10.8)
--- NOTE | 2023-12-07 13:38 | DI.RAD_ITS ---
Exam(s) XR CHEST 2V PA LATERAL EXAM: XR CHEST 2V PA LATERAL CLINICAL HISTORY: chest pain TECHNIQUE: 2D digital imaging was performed. Two views. COMPARISON: CR XR PORTABLE CHEST AP from 08/14/2022 FINDINGS: HEART: Normal size. Coronary artery stents. Aorta: Not dilated. PULMONARY VASCULATURE: Normal. LUNGS: Clear. PLEURAL SPACE: No pleural effusion or pneumothorax. BONE:Unremarkable for age. Soft tissues: Unremarkable. IMPRESSION: No acute abnormality. DATA REPOSITORY: RADIATION DOSE DELIVERED:
[2023-12-07 13:51] LABS: ALT 48 U/L (14-59); AST 39 U/L (15-37); Albumin 3.5 g/dL (3.4-5.0); Alkaline Phosphatase 106 U/L (46-116); Anion Gap 5.2 mmol/L (3-11); BUN 21 mg/dL (7-18); Bilirubin, Total 0.6 mg/dL (0.2-1.0); CO2 29.8 mmol/L (21.0-32.0); CREATININE 0.9 mg/dL (0.55-1.02); Calcium 9.1 mg/dL (8.5-10.1); Chloride 104 mmol/L (98-107); Estimated GFR 78.37 (mL/min/1.73m2); Glucose 154 mg/dL (74-106); Potassium 4.4 mmol/L (3.5-5.1); Sodium 139 mmol/L (136-145); Total Protein 7.1 g/dL (6.4-8.2); Troponin I < 50 ng/L (< or =60)
[2023-12-07] MEDS: Normal Saline 500 ML 1000 ML IV (13:55)
[2023-12-07] MEDS: Ondansetron 4 MG/2 ML VIAL IVP (13:55)
[2023-12-07 14:11] LABS: INR 1.1 (0.9-1.1); PTT Activated 23.4 sec (23.6-32.8); Prothrombin Time 10.9 sec (9.1-11.1)
[2023-12-07 16:23] LABS: Troponin I < 50 ng/L (< or =60)
== END 2023-12-07 16:40 | disposition home or self-care (01) ==
PROVIDERS: Emergency Provider Emergency Medicine; PCP Physician Assistant
DX: R07.9 Chest pain, unspecified (principal); Z86.79 Personal history of other diseases of the circulatory system
CPT/HCPCS: 36415; 80053; 93005; 96374; 99284; 71046; 84484; 85025; 85610; 85730; 93010; 99283; J2405

== ENCOUNTER → 2024-01-07 12:06 | Outpatient (BNVA) | payer MEDICARE, MEDICAID, SELFPAY | PROVIDERS: PCP Physician Assistant; Visit Provider Internal Medicine Cardiovascular Disease | DX: R53.83 Other fatigue (principal); I25.10 Atherosclerotic heart disease of native coronary artery without angina pectoris | CPT/HCPCS: 99213 ==

== ENCOUNTER → 2024-01-28 09:14 | Outpatient (BNVA) | payer MEDICARE, MEDICAID, SELFPAY | PROVIDERS: PCP Physician Assistant; Referring Provider Physician Assistant; Visit Provider Podiatrist | DX: E10.42 Type 1 diabetes mellitus with diabetic polyneuropathy; I73.9 Peripheral vascular disease, unspecified; N18.1 Chronic kidney disease, stage 1; L60.3 Nail dystrophy; I25.2 Old myocardial infarction; R09.89 Other specified symptoms and signs involving the circulatory and respiratory systems; R60.0 Localized edema; R20.8 Other disturbances of skin sensation | CPT/HCPCS: 11721; 93922 ==

== ENCOUNTER 2024-02-15 09:18 | Emergency (ER) | payer MEDICARE, MEDICAID, SELFPAY ==
[2024-02-15 09:22] VITALS: BP 105/52; PULSE 89; RESP 16; TEMP 35.6; O2SAT 100
--- NOTE | 2024-02-15 09:30 | DI.CT_ITS ---
Exam(s) CT CERVICAL SPINE WO EXAM: CT CERVICAL SPINE WO CLINICAL HISTORY: L UE radicular pain. TECHNIQUE: Imaging Protocol: Axial computed tomography images with coronal and sagittal reformatted images were created and reviewed COMPARISON: CT CT BRAIN NECK CTA from 07/05/2023 FINDINGS: CERVICAL SPINE: There is no evidence of acute fracture. No significant prevertebral soft tissue swelling. No significant listhesis. Straightening of the cervical spine is again noted, unchanged and related to developmental fusion at the C4-5 levels both anteriorly and posteriorly partial fusion of the C4 and 5 vertebral bodies as we ll as the posterior osseous elements including the bilateral facet joints at this level. Other disc spaces exhibit normal height and other facet joints appear unremarkable. Calcific density anterior t o the lower odontoid is unchanged from July 2023 No significant osseous lesions evident. IMPRESSION: No evidence of acute cervical spine fracture, malalignment, nor acute compromise of the cervical spin al canal. Developmental fusion of C4 and C5 vertebrae again noted. Called by myself to ER provider. RADIATION DOSE DELIVERED: 308.16mGy.cm Total DLP DATA REPOSITORY: All CT scans at this facility are submitted to the National Radiology Data Registry (NRDR) Dose Index Registry (DIR) with the [employer] ([employer]). RADIATION OPTIMIZATION: All CT scans at this facility use at least one of these dose optimization te chniques: automated exposure control; mA and/or kV adjustment per patient size (includes targeted exa ms where dose is matched to clinical indication); or iterative reconstruction.
--- NOTE | 2024-02-15 09:36 | ED.GENADUL_ITS ---
Discharge Plan Disposition Patient Disposition: Home Condition: Stable Discharge Details Clinical Impression: Left arm pain Primary Care Provider: Jose Pittman ED Provider: Piotr Toledo Home Meds and New Rx's Prescriptions: Continued (DME) Ketostix Strip See Rx Instructions .Route Rx Instructions: As directed glucagon 1 mg kit 1 mg subcut PRN PRN (Reason: Hypoglycemia) aspirin [Children's Aspirin] 81 mg tablet,chewable 81 mg PO DAILY albuterol sulfate [ProAir HFA] 90 mcg/actuation HFA aerosol inhaler 2 puff inhalation Q6H PRN (Reason: Shortness Of Breath) ketoconazole 2 % cream 1 applic topical DAILY Qty: 60 3RF atorvastatin 80 mg tablet 80 mg PO DAILY Patient Comments: Take 1 tablet by mouth every evening insulin glargine [Basaglar KwikPen U-100 Insulin] 100 unit/mL (3 mL) insulin pen 20 unit SUBCUT DAILY Patient Comments: INJECT 22 UNITS UNDER THE SKIN EVERY MORNING insulin aspart U-100 [Novolog FlexPen U-100 Insulin] 100 unit/mL (3 mL) insulin pen See Rx Instructions .ROUTE .COMPLEX Patient Comments: INJECT BASED ON CARBS AT A RATION OF 1:10 GIVE AND CORRECT FOR BG >150 BASED ON ISF 1:25 Rx Instructions: per sliding before meals. nitroglycerin 0.4 mg Tablet, Sublingual 0.4 mg sublingual PRN PRN (Reason: Chest Pain) magnesium oxide 400 mg (241.3 mg magnesium) tablet 400 mg PO DAILY Qty: 14 0RF Discharge Instructions Instructions: Carpal tunnel syndrome, Muscle and bone pain - Discharge instructions Additional Instructions: You were seen in the emergency department for left arm pain. You have some findings that are consistent with carpal tunnel syndrome I am providing you with a wrist brace. You can wear this 24 hours a day to see if this helps relieve the pain, take regular doses of Tylenol and ibuprofen for pain. 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 There is no fracture seen and there left arm. Please return for complete numbness, extreme pain, redness, skin changes, inability to move or use your left arm Referrals: [facility] [Provider Group] Jose Pittman [Primary Care Provider] - Discharge Data Discharge Date/Time-TO BE ENTERED AT DEPARTURE: 02/15/24 15:10 HPI General Date/Time Provider Initiated Documentation: 02/15/24 09:34 . HPI Narrative: 48 year-old female presents to ED today by POV/ambulating with a chief complaint of L wrist pain with onset one week ago, atraumatic. Quality described as L wrist pain and weakness- patient is a poor historian, no radiation to trauma, states her whole arm hurts. Severity is described as severe. Palliating factors include nothing attempted. Provoking factors include nothing specific. Events leading up to the incident/Associated Symptoms: Patient is a type I diabetic. Patient not anticoagulated. Related Data Home Medications ?Medication ?Instructions ?Recorded ?Confirmed acetone (urine) test (Ketostix 01/29/22 01/28/24 strips) albuterol sulfate 90 mcg/actuation 2 puff inhalation Q6H PRN 01/29/22 01/28/24 aerosol inhaler (ProAir HFA) Shortness Of Breath aspirin 81 mg chewable tablet 81 mg PO DAILY 01/29/22 01/28/24 (Children's Aspirin) glucagon 1 mg injection kit 1 mg subcut PRN PRN Hypoglycemia 01/29/22 01/28/24 atorvastatin 80 mg tablet 80 mg PO DAILY 02/22/22 01/28/24 insulin aspart U-100 100 unit/mL See Rx Instructions .Route .COMPLEX 02/22/22 01/28/24 (3 mL) subcutaneous pen (Novolog FlexPen U-100 Insulin aspart) insulin glargine 100 unit/mL (3 20 unit subcut DAILY 02/22/22 01/28/24 mL) subcutaneous pen (Basaglar KwikPen U-100 Insulin) nitroglycerin 0.4 mg sublingual 0.4 mg sublingual PRN PRN Chest 04/21/22 01/28/24 tablet Pain magnesium oxide 400 mg (241.3 mg 400 mg PO DAILY #14 tabs 04/23/22 01/28/24 magnesium) tablet ketoconazole 2 % topical cream 1 applic topical DAILY apply to 11/05/23 01/28/24 fungal nails #60 grams Previous Rx's ?Medication ?Instructions ?Recorded magnesium oxide 400 mg (241.3 mg 400 mg PO DAILY #14 tabs 04/23/22 magnesium) tablet ketoconazole 2 % topical cream 1 applic topical DAILY apply to 11/05/23 fungal nails #60 grams Allergies Allergy/AdvReac Type Severity Reaction Status Date / Time No Known Allergies Allergy Verified 02/15/24 09:25 General Stated Complaint: Orthopedic MITCHELL: 4 Review of Systems All systems reviewed & are unremarkable except as noted in HPI and below Exam Narrative Exam Narrative: GENERAL APPEARANCE: Well-nourished, non-toxic, awake and alert, atraumatic, no acute distress. SKIN: Warm, pink, dry, intact, without rashes/lesions/ulcerations. HEAD: Normocephalic, atraumatic, normal hair distribution for gender/age. EYES: Pupils PERRLA, EOMs intact without nystagmus, normal conjunctiva, no exudates on lids/lashes. ENT: Nares patent, no circumoral cyanosis, no facial swelling NECK: Supple, trachea midline, painless cervical ROM. LUNGS/CHEST: Lungs CTA bilaterally- no rhonchi/rales/wheezes diffusely, non- labored respirations, normal A/P diameter, symmetrical expansion, no chest wall deformity HEART (CV/PV): Regular rate and rhythm without murmur, no peripheral edema, no JVD. ABDOMEN: Soft, non-distended, no guarding, no tenderness. MSK: Normal ROM, no swelling/deformity to bilateral UEs or LEs, moving all extremities without weakness, no cyanosis, spine midline without tenderness, normal curvature. Tinel's and Phalen's positive on the left wrist and forearm, patient is poorly localized her pain is diffuse tenderness over without swelling or deformity, is able to move all fingers, left radial pulse 2+, question mild delayed capillary refill mild coolness to touch in the left hand, able to flex and extend the elbow, no shoulder tenderness, no cervical vertebral or paravertebral tenderness, sensation intact. NEURO: Mental Status AAOx4 - alert to person, place, time, events No facial droop, no forehead involvement. Motor: No focal weakness - strength 5/5 in bilateral UEs and LEs, proximal and distal, symmetric. Sensory: sensation intact to light touch globally. Gait baseline PSYCH: euthymic, cooperative, pleasant, appropriate speech Course Vital Signs Vital signs: Vital Signs Temperature 35.6 C L 02/15/24 09:22 Pulse 89 02/15/24 09:22 Respiratory Rate 16 02/15/24 09:22 Blood Pressure 105/52 L 02/15/24 09:22 Pulse Oximetry 100 02/15/24 09:22 Temperature 35.6 C L 02/15/24 09:22 Temperature Source Skin 02/15/24 09:22 Pulse 89 02/15/24 09:22 Respiratory Rate 16 02/15/24 09:22 Respiratory Effort Normal 02/15/24 09:24 Blood Pressure 105/52 L 02/15/24 09:22 Blood Pressure Position Sitting 02/15/24 09:22 Pulse Oximetry 100 02/15/24 09:22 Oxygen Delivery Method Room Air 02/15/24 09:22 Oxygen Flow Rate 0 02/15/24 09:22 Medical Decision Making This dictation utilizes [id number] dictation software and may contain unedited grammatical errors. 48 year-old female presents to ED today by POV/ambulating with a chief complaint of L wrist pain with onset one week ago, atraumatic. Quality described as L wrist pain and weakness- patient is a poor historian, no radiation to trauma, states her whole arm hurts. Severity is described as severe. Palliating factors include nothing attempted. Provoking factors include nothing specific. Events leading up to the incident/Associated Symptoms: Patient is a type I diabetic. Patients' medical history: [ ]. Family and social history: [ ]. Pertinent exam findings / vital signs include Tinel's and Phalen's positive on the left wrist and forearm, patient is poorly localized her pain is diffuse tenderness over without swelling or deformity, is able to move all fingers, left radial pulse 2+, question mild delayed capillary refill mild coolness to touch in the left hand, able to flex and extend the elbow, no shoulder tenderness, no cervical vertebral or paravertebral tenderness, sensation intact. Differential / pathologies of concern include muscle strain/sprain, fracture, DVT upper extremity, arterial occlusion of upper extremity, carpal tunnel or other MSK pathology, cervical radiculopathy. 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 ED Course/Assessment/Plan: 48-year-old female presents with left wrist and hand pain ongoing for 1 week, poor historian, Tinel's is positive for carpal tunnel but she does have some delayed capillary refill and is a poor historian and cannot localize pain states the whole arm hurts as well as trapezius area, has congenital C4-[address] for fracture of the upper extremity, negative ultrasound for DVT and her arterial system is patent, I did advise her to trial relief of carpal tunnel syndrome and follow-up with her primary care provider, basic labs were performed which showed an elevated D-dimer which was ruled out by upper extremity ultrasound, she has negative inflammatory markers and no signs of infection. Findings not consistent with fracture, DVT, arterial occlusion, neurovascular c ompromise, severe cervical stenosis. Disposition of Left Arm Pain. Patient verbalized understanding of the plan and return to ED criteria and engaged in shared decision making. Medical Records Medical records reviewed: Yes I reviewed the patient's medical records. Imaging Data Radiologic Study: Attestation: I personally reviewed and interpreted this imaging study as follows: Imaging: CT Scan Radiologist's impression: EXAM: CT CERVICAL SPINE WO CLINICAL HISTORY: L UE radicular pain. TECHNIQUE: Imaging Protocol: Axial computed tomography images with coronal and sagittal reformatted images were created and reviewed COMPARISON: CT CT BRAIN NECK CTA from 07/05/2023 FINDINGS: CERVICAL SPINE: There is no evidence of acute fracture. No significant prevertebral soft tissue swelling. No significant listhesis. Straightening of the cervical spine is again noted, unchanged and related to developmental fusion at the C4-5 levels both anteriorly and posteriorly partial fusion of the C4 and 5 vertebral bodies as well as the posterior osseous elements including the bilateral facet joints at this level. Other disc spaces exhibit normal height and other facet joints appear unremarkable. Calcific density anterior to the lower odontoid is unchanged from July 2023 No significant osseous lesions evident. IMPRESSION: No evidence of acute cervical spine fracture, malalignment, nor acute compromise of the cervical spinal canal. Developmental fusion of C4 and C5 vertebrae again noted. Radiologic Study #2: Attestation: I personally reviewed and interpreted this imaging study as follows: Imaging: Ultrasound Radiologist's impression: EXAM: US UPPER EXTREMITY VENOUS LT CLINICAL HISTORY: L arm pain, elev d-dimer. TECHNIQUE: Ultrasound examination of the left upper extremity venous system(s) is performed using grayscale, color-flow, and spectral Doppler analysis. COMPARISON: No exams were available for comparison FINDINGS: The left internal jugular, axillary, subclavian, cephalic, basilic, brachial, radial, and ulnar veins are patent without evidence of thrombosis. IMPRESSION: No DVT. Radiologic Study #3: Attestation: I personally reviewed and interpreted this imaging study as follows: Imaging: CT Scan Radiologist's impression: EXAM: CT UPPER EXTREMITY LT CTA CLINICAL HISTORY: L arm pain, elev d-dimer, delayed cap refill TECHNIQUE: Imaging Protocol: Axial computed tomography images with coronal and sagittal reformatted images were created and reviewed. CONTRAST MATERIAL: Intravenous: Omnipaque 350 Contrast volume:100 mL contrast route:IV - COMPARISON: CT CT CHEST PE CTA from 07/05/2023 FINDINGS: Exam was performed during the arterial phase. The venous still system is not opacified. There is limited evaluation distally due to in the wrist and hand due to motion. There tear system is patent. There are no atherosclerotic changes. There is no edema in subcutaneous fat. No visible muscular hematoma. There is no evidence of fracture or destructive bony lesion. A large portion of the chest abdomen is included in the field of view. Visualized portions of the carotid arteries and jugular veins appear normal. The heart size is normal. The aorta is normal in diameter. No evidence of dissection. Mild atherosclerotic changes in the distal abdominal aorta and internal iliac arteries. Pulmonary arteries are not well opacified as is pleasant active arterial examination. The visualized portions of the lungs are clear. No acute abnormality in the abdomen or pelvis. No bowel dilatation. Bladder is unremarkable. Hysterectomy noted. Spleen is normal in size. Liver, kidneys and adrenals are unremarkable as visualized. IMPRESSION: Normal CT scan of the left upper extremity. No acute abnormality visualized in the chest abdomen or pelvis in the field of view. . Radiologic Study #4: Attestation: I personally reviewed and interpreted this imaging study as follows: Imaging: CT Scan Radiologist's impression: EXAM: CT UPPER EXTREMITY LT WO CLINICAL HISTORY: L arm delayed cap refill, coolness to touch TECHNIQUE: Imaging Protocol: Axial computed tomography images with coronal and sagittal reformatted images were created and reviewed. CONTRAST MATERIAL: Intravenous: None COMPARISON: No exams were available for comparison FINDINGS: OSSEOUS: AC joint appears unremarkable. There is mild degenerative change in the glenohumeral joint. No findings in the elbow joint. No fractures evident. No significant osseous lesions. No radiopaque foreign bodies. Some vascular calcification is noted in the radial artery below the level of the elbow. Lab Data Lab results reviewed: Yes I reviewed the patient's lab results. Labs: Laboratory Tests Range/Units 02/15/24 10:28 WBC (4.4-10.8) 10^3/uL 4.55 RBC (3.93-5.22) 10^6/uL 4.67 Hgb (11.2-15.7) g/dL 14.3 Hct (36.0-46.0) % 42.4 MCV (80-95) fL 91 MCH (27.0-33.0) pg 30.6 MCHC (32.0-36.0) % 33.7 RDW (11.7-14.6) % 12.3 Plt Count (130-400) 10^3/uL 189 MPV (8.0-11.0) fL 9.8 Immature Gran % % 0.2 Neutrophils % % 56.9 Lymphocytes % % 33.2 Monocytes % % 8.1 Eosinophils % % 0.9 Basophils % % 0.7 Nucleated RBC % (0.0-0.3) % 0.0 Absolute Neutrophils (1.2-6.7) 10^3/uL 2.59 Absolute Lymphocytes (1.2-3.4) 10^3/uL 1.51 Absolute Monocytes (0.1-0.8) 10^3/uL 0.37 Absolute Eosinophils (0.0-0.7) 10^3/uL 0.04 Absolute Basophils (0.0-0.2) 10^3/uL 0.03 ESR (0-20) mm/hr 12 D-Dimer (<500) ng/mlFEU 886 H Sodium (136-145) mmol/L 136 Potassium (3.5-5.1) mmol/L 4.3 Chloride (98-107) mmol/L 99 Carbon Dioxide (21.0-32.0) mmol/L 30.9 Anion Gap (3-11) mmol/L 6.1 BUN (7-18) mg/dL 15 Creatinine (0.55-1.02) mg/dL 0.9 Est GFR (CKD-EPI 2020) (mL/min/1.73m2) 78.37 Glucose (74-106) mg/dL 339 H Calcium (8.5-10.1) mg/dL 9.4 Total Bilirubin (0.2-1.0) mg/dL 0.77 AST (15-37) U/L 36 ALT (14-59) U/L 46 Alkaline Phosphatase (46-116) U/L 161 H C-Reactive Protein (<or=0.5) mg/dL < 0.50 Total Protein (6.4-8.2) g/dL 8.0 Albumin (3.4-5.0) g/dL 3.9 Quality:[facility] Health Related Social Needs: No Data to Display PFSH All Active Problems (Updated 02/15/24 @ 14:42 by DWAYNE Muñoz) Left arm pain (Acute) Hx of tonsillectomy (Chronic) Atherosclerosis of coronary artery without angina pectoris (Acute) Retinopathy due to secondary diabetes mellitus (Acute) Syncope and collapse (Acute) Gastroesophageal reflux disease without esophagitis (Acute) Mild intermittent asthma (Acute) Hyperlipemia (Acute) H/O heart artery stent (Chronic) 2 Stents at [facility] [place] 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 of right ear (Acute) Nail dystrophy (Acute) Type 1 diabetes mellitus with diabetic polyneuropathy (Acute) Retinopathy (Acute) Type 1 diabetes mellitus (Acute) Asthma (Chronic) GERD (gastroesophageal reflux disease) (Chronic) CAD (coronary artery disease), [place] coronary artery (Acute) Neurogenic bladder (Acute) IDDM (insulin dependent diabetes mellitus) (Chronic) Nonsustained paroxysmal ventricular tachycardia (Acute) Vitamin D deficiency (Acute) Neuropathy (Acute) Chronic kidney disease, stage I (Acute) Hearing loss (Acute) Blind right eye (Acute) Cellulitis of foot (Acute) Medical History (Updated 02/15/24 @ 14:42 by DWAYNE Muñoz) Hypomagnesemia Cancer of cervix Hyperkalemia Visual loss Acute pain in female pelvis Elevated troponin History of deep vein thrombophlebitis of lower extremity Surgical History (Updated 01/21/24 @ 15:17 by Marium Raygoza) Hx of LASIK Hx of section At [facility] [place] 2006 History of partial hysterectomy Family History (Updated 02/01/24 @ 10:02 by Francoise Myers LPN) Father Asthma Diabetes Heart disease Hypertension Maternal Aunt Breast cancer Mother Hypertension Heart disease Maternal Aunt Breast cancer COPD (chronic obstructive pulmonary disease) Maternal Aunt Diabetes Social History (Updated 02/01/24 @ 10:03 by Francoise Myers LPN) Smoking/Tobacco Use Status: Never Second Hand Exposure: Yes Smoking risk assessment performed?: Yes Alcohol Intake: never Drug use: Never Details: edibles Adopted: No Caregiver/Support person: Yes (significant other) Foster care: No Household members: significant other and children Housing: apartment Number of Children: 1 number of grandchildren: 0 Communication Needs: Hard of Hearing and Blind Education Level: high school Do you need help understanding health information?: Often current occupation: Disabled Pets and animals: Yes (1 Cat, 2 Guinea Pigs) Pets and animals: cat(s) and guinea pig(s) Do you think of yourself as: straight/heterosexual Current gender identity: female What is your relationship status?: living with partner How often do you talk on the phone with friends or family?: three or more times per week How often do you get together with friends or relatives?: three or more times per week How often do you attend latter day or hoahaoism services?: decline to answer Do you belong to any clubs or organized social groups?: no Panel score (0-1 are the most socially isolated patients): 2 What type of physical activity do you participate in: walking Duration: 15-30 minutes/day Frequency: daily Trina/Shinto: None Seatbelt use: always Drive intox 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
[2024-02-15 10:35] LABS: Abs Immature Grans 0.01 10^3/uL (0.0-0.06); Absolute Basophil Count 0.03 10^3/uL (0.0-0.2); Absolute Eosinophil Count 0.04 10^3/uL (0.0-0.7); Absolute Lymphocyte Count 1.51 10^3/uL (1.2-3.4); Absolute Monocyte Count 0.37 10^3/uL (0.1-0.8); Absolute Neutrophil Count 2.59 10^3/uL (1.2-6.7); Basophils % 0.7 %; Eosinophils % 0.9 %; HCT 42.4 % (36.0-46.0); HGB 14.3 g/dL (11.2-15.7); Immature Grans % 0.2 %; Lymphocytes % 33.2 %; MCH 30.6 pg (27.0-33.0); MCHC 33.7 % (32.0-36.0); MCV 91 fL (80-95); MPV 9.8 fL (8.0-11.0); Monocytes % 8.1 %; Neutrophils % 56.9 %; Platelet Count 189 10^3/uL (130-400); RBC 4.67 10^6/uL (3.93-5.22); RDW 12.3 % (11.7-14.6); RDW-SD 40.7 fL; WBC 4.55 10^3/uL (4.4-10.8)
[2024-02-15 10:37] LABS: ESR 12 mm/hr (0-20)
[2024-02-15 10:51] LABS: ALT 46 U/L (14-59); AST 36 U/L (15-37); Albumin 3.9 g/dL (3.4-5.0); Alkaline Phosphatase 161 U/L (46-116); Anion Gap 6.1 mmol/L (3-11); BUN 15 mg/dL (7-18); CO2 30.9 mmol/L (21.0-32.0); CREATININE 0.9 mg/dL (0.55-1.02); Calcium 9.4 mg/dL (8.5-10.1); Chloride 99 mmol/L (98-107); Estimated GFR 78.37 (mL/min/1.73m2); Glucose 339 mg/dL (74-106); Potassium 4.3 mmol/L (3.5-5.1); Sodium 136 mmol/L (136-145)
--- NOTE | 2024-02-15 11:09 | DI.CT_ITS ---
Exam(s) CT UPPER EXTREMITY LT WO EXAM: CT UPPER EXTREMITY LT WO CLINICAL HISTORY: L arm delayed cap refill, coolness to touch TECHNIQUE: Imaging Protocol: Axial computed tomography images with coronal and sagittal reformatted images were created and reviewed. CONTRAST MATERIAL: Intravenous: None COMPARISON: No exams were available for comparison FINDINGS: OSSEOUS: AC joint appears unremarkable. There is mild degenerative change in the glenohumeral joint. No findings in the elbow joint. No fractures evident. No significant osseous lesions. No radiopa que foreign bodies. Some vascular calcification is noted in the radial artery below the level of the elbow. IMPRESSION: No significant osseous findings in the left upper extremity. There is vascular calcification noted in forearm arteries indicating atherosclerotic involvement in t his 48-year-old patient. RADIATION DOSE DELIVERED: 380.79mGy.cm Total DLP DATA REPOSITORY: All CT scans at this facility are submitted to the National Radiology Data Registry (NRDR) Dose Index Registry (DIR) with the [employer] (ACR). RADIATION OPTIMIZATION: All CT scans at this facility use at least one of these dose optimization te chniques: automated exposure control; mA and/or kV adjustment per patient size (includes targeted exa ms where dose is matched to clinical indication); or iterative reconstruction.
[2024-02-15 11:15] LABS: D-Dimer 886 ng/mlFEU (<500)
--- NOTE | 2024-02-15 11:15 | DI.CT_ITS ---
Exam(s) CT UPPER EXTREMITY LT CTA EXAM: CT UPPER EXTREMITY LT CTA CLINICAL HISTORY: L arm pain, elev d-dimer, delayed cap refill TECHNIQUE: Imaging Protocol: Axial computed tomography images with coronal and sagittal reformatted images were created and reviewed. CONTRAST MATERIAL: Intravenous: Omnipaque 350 Contrast volume:100 mL contrast route:IV - COMPARISON: CT CT CHEST PE CTA from 07/05/2023 FINDINGS: Exam was performed during the arterial phase. The venous still system is not opacified. There is li mited evaluation distally due to in the wrist and hand due to motion. There tear system is patent. There are no atherosclerotic changes. There is no edema in subcutaneous fat. No visible muscular hematoma. There is no evidence of fractu re or destructive bony lesion. A large portion of the chest abdomen is included in the field of view. Visualized portions of the carotid arteries and jugular veins appear normal. The heart size is yari l. The aorta is normal in diameter. No evidence of dissection. Mild atherosclerotic changes in the distal abdominal aorta and internal iliac arteries. Pulmonary arteries are not well opacified as is pleasant active arterial examination. The visualized portions of the lungs are clear. No acute abnormality in the abdomen or pelvis. No bowel dilatation. Bladder is unremarkable. Hyste rectomy noted. Spleen is normal in size. Liver, kidneys and adrenals are unremarkable as visualized . IMPRESSION: Normal CT scan of the left upper extremity. No acute abnormality visualized in the chest abdomen or pelvis in the field of view. . RADIATION DOSE DELIVERED: Total DLP DATA REPOSITORY: All CT scans at this facility are submitted to the National Radiology Data Registry (NRDR) Dose Index Registry (DIR) with the [employer] (ACR). RADIATION OPTIMIZATION: All CT scans at this facility use at least one of these dose optimization te chniques: automated exposure control; mA and/or kV adjustment per patient size (includes targeted exa ms where dose is matched to clinical indication); or iterative reconstruction.
--- NOTE | 2024-02-15 11:15 | DI.US_ITS ---
Exam(s) US UPPER EXTREMITY VENOUS LT EXAM: US UPPER EXTREMITY VENOUS LT CLINICAL HISTORY: L arm pain, elev d-dimer. TECHNIQUE: Ultrasound examination of the left upper extremity venous system(s) is performed using gr ayscale, color-flow, and spectral Doppler analysis. COMPARISON: No exams were available for comparison FINDINGS: The left internal jugular, axillary, subclavian, cephalic, basilic, brachial, radial, and ulnar veins are patent without evidence of thrombosis. IMPRESSION: No DVT. DATA REPOSITORY:
[2024-02-15 11:21] LABS: C-Reactive Protein < 0.50 mg/dL (<or=0.5)
[2024-02-15 11:26] LABS: Bilirubin, Total 0.77 mg/dL (0.2-1.0)
[2024-02-15 11:36] VITALS: BP 118/52; PULSE 71; O2SAT 99
[2024-02-15 12:18] VITALS: BP 111/51; PULSE 71; RESP 18; TEMP 36.7; O2SAT 100
[2024-02-15] MEDS: Normal Saline - Diluent 50 ML VIAL IJ (14:07)
[2024-02-15] MEDS: Omnipaque 350 MG/ML 100 ML BTL IJ (14:08)
[2024-02-15 14:20] VITALS: BP 142/64; PULSE 74; RESP 12; TEMP 36.1; O2SAT 100
[2024-02-15 14:56] VITALS: BP 138/58; PULSE 72; TEMP 37.4; O2SAT 100
[2024-02-15 15:10] VITALS: BP 138/58; PULSE 72; RESP 12; TEMP 37.4; O2SAT 100
== END 2024-02-15 15:10 | disposition home or self-care (01) ==
PROVIDERS: Emergency Provider Physician Assistant; PCP Physician Assistant
DX: M25.532 Pain in left wrist (principal); Q76.49 Other congenital malformations of spine, not associated with scoliosis; E11.9 Type 2 diabetes mellitus without complications; Z79.4 Long term (current) use of insulin; Z79.82 Long term (current) use of aspirin
CPT/HCPCS: 73206; 80053; 82962; 85652; 99285; 72125; 73200; 85025; 85379; 86140; 93971; 99284; J3490

== ENCOUNTER 2024-03-18 04:29 | Emergency (ER) | payer MEDICARE, MEDICAID, SELFPAY ==
[2024-03-18] VITALS (43 sets, daily range): BP systolic 82–136; BP diastolic 27–107; PULSE 86–114; RESP 11–25; TEMP 36.1–36.7; O2SAT 100
--- NOTE | 2024-03-18 04:45 | DI.CT_ITS ---
Exam(s) CT HEAD WO EXAM: CT HEAD WO CLINICAL HISTORY: confused, near syncope, eval for bleed/subdural. TECHNIQUE: Imaging Protocol: Axial computed tomography images with coronal and sagittal reformatted images were created and reviewed COMPARISON: CT CT BRAIN NECK CTA from 07/05/2023 FINDINGS: Ventricles and Extra axial spaces: Normal in size and morphology for the patient's age. Hemorrhage: None. Cerebral parenchyma: Normal. Midline shift: None. Brainstem/Cerebellum: Normal. Calvarium: Normal. Visualized Paranasal sinuses/Mastoids: Clear. Soft Tissues: Unremarkable. IMPRESSION: No acute intracranial process. RADIATION DOSE DELIVERED: Total DLP DATA REPOSITORY: All CT scans at this facility are submitted to the National Radiology Data Registry (NRDR) Dose Index Registry (DIR) with the [employer] (A[employer]). RADIATION OPTIMIZATION: All CT scans at this facility use at least one of these dose optimization te chniques: automated exposure control; mA and/or kV adjustment per patient size (includes targeted exa ms where dose is matched to clinical indication); or iterative reconstruction.
--- NOTE | 2024-03-18 04:48 | ED.GENADUL_ITS ---
Discharge Plan Discharge Details Chief Complaint: Dizzy/Sync Primary Care Provider: Karie Lindsey ED Provider: Piotr Savage Home Meds and New Rx's Prescriptions: No Action Jardiance 10 mg tablet 10 mg PO DAILY MDD 10 mg 90 Days Qty: 90 4RF Rx Instructions: Take 10 mg tablet once daily in the morning as directed. (DME) Ketone Urine Test Strip See Rx Instructions .Route Qty: 50 4RF Rx Instructions: As directed (DME) Ketostix Strip See Rx Instructions .Route Rx Instructions: As directed aspirin [Children's Aspirin] 81 mg tablet,chewable 81 mg PO DAILY multivitamin with folic acid [Tab-A-Aaron] 400 mcg tablet 1 tab PO DAILY Patient Comments: TAKE ONE TABLET BY MOUTH EVERY DAY Fiasp FlexTouch U-100 Insulin 100 unit/mL (3 mL) insulin pen 1 sliding scale dose SUBCUT AC Patient Comments: INJECT BASED ON CARBS WITH MEALS AND SNACKS RATIO 1:10G AND COREECT FOR BG GREATER THAN 150 BASED ON ISF 1:25 MAX DAILY DOSE 50 UNITS atorvastatin 80 mg tablet 80 mg PO DAILY Patient Comments: Take 1 tablet by mouth every evening insulin glargine [Basaglar KwikPen U-100 Insulin] 100 unit/mL (3 mL) insulin pen 20 unit SUBCUT DAILY Patient Comments: INJECT 22 UNITS UNDER THE SKIN EVERY MORNING magnesium oxide 400 mg (241.3 mg magnesium) tablet 400 mg PO DAILY Qty: 14 0RF Discharge Instructions Additional Instructions: At this time your potassium has been corrected. You have been rehydrated. Please take the Zofran as needed for nausea. Please follow-up closely with your primary care provider next week for reassessment of your thyroid function. If you notice any worsening of your symptoms, or any new symptoms such as vomiting, diarrhea, fever, chills, shortness of breath, chest pain, numbness, weakness, or fainting , please return immediately to the emergency department for reevaluation. Please follow up with your primary care provider as soon as possible for reassessment and reevaluation. As always, it was a pleasure participating in your medical care today. HPI General Date/Time Provider Initiated Documentation: 03/18/24 04:37 . HPI Narrative: 48-year-old female with a past medical history of coronary artery disease with 2 stents, type 1 diabetes, GERD, chronic kidney disease, who takes daily aspirin, presents today for evaluation of dizziness, increased heart rate and fatigue. Patient states that at about 4:30 PM yesterday afternoon she took some marijuana edibles, she eventually went to sleep and then at around 3 AM she woke and felt notably dizzy, felt that her heart rate was high, did not feel well. She eventually called EMS and was brought to the ER for further assessment. Currently she states the dizziness and heart rate has resolved, however she just feels very very fatigued at this point. She denies any chest pain or shortness of breath, fever or chills. She denies any vomiting or diarrhea. No numbness tingling or weakness otherwise. She denies any falls or trauma to the head. She denies taking any other illicit substances. Related Data Home Medications ?Medication ?Instructions ?Recorded ?Confirmed acetone (urine) test (Ketostix 01/29/22 03/18/24 strips) aspirin 81 mg chewable tablet 81 mg PO DAILY 01/29/22 03/18/24 (Children's Aspirin) atorvastatin 80 mg tablet 80 mg PO DAILY 02/22/22 03/18/24 insulin glargine 100 unit/mL (3 20 unit subcut DAILY 02/22/22 03/18/24 mL) subcutaneous pen (Basaglar KwikPen U-100 Insulin) magnesium oxide 400 mg (241.3 mg 400 mg PO DAILY #14 tabs 04/23/22 03/18/24 magnesium) tablet acetone (urine) test (Ketone Urine #50 ea 02/26/24 03/18/24 Test strips) empagliflozin 10 mg tablet 10 mg PO DAILY 90 days #90 tabs 02/26/24 03/18/24 (Jardiance) insulin aspart 1 sliding scale dose subcut AC 03/18/24 03/18/24 (niacinamide)(U-100) 100 unit/mL(3 mL) subcutaneous pen (Fiasp FlexTouch U-100 Insulin) multivitamin with folic acid 400 1 tab PO DAILY 03/18/24 03/18/24 mcg tablet (Tab-A-Aaron) Previous Rx's ?Medication ?Instructions ?Recorded magnesium oxide 400 mg (241.3 mg 400 mg PO DAILY #14 tabs 04/23/22 magnesium) tablet acetone (urine) test (Ketone Urine #50 ea 02/26/24 Test strips) empagliflozin 10 mg tablet 10 mg PO DAILY 90 days #90 tabs 02/26/24 (Jardiance) Allergies Allergy/AdvReac Type Severity Reaction Status Date / Time No Known Allergies Allergy Verified 03/18/24 05:20 General Stated Complaint: Dizzy/Sync MITCHELL: 3 Review of Systems All systems reviewed & are unremarkable except as noted in HPI and below Exam Narrative Exam Narrative: 1.Const: Well-nourished, Well-developed, appearing stated age 2.Eyes: PERRL, no conjunctival injection, and symmetrical lids. 3.ENT: Atraumatic external nose and ears. Notably dry MM. Neck: Symmetric, trachea midline, No thyromegaly. No hemotympanums or signs of trauma to the head neck or face. 4.CVS: +S1/S2, No murmurs or gallops. Peripheral pulses 2+ and equal in all extremities. Brisk capillary refill in all extremities. 5.RESP: Unlabored respiratory effort. Clear to auscultation bilaterally. No wheezes rales or rhonchi 6.GI: Soft, Nontender/Nondistended, No hepatosplenomegaly. No guarding or rebound. 7.MSK: Normocephalic/Atraumatic, Extremities w/o deformity or ttp No cyanosis or clubbing, Normal movement of all extremities 8.Skin: Warm, Dry. No rashes or lesions. 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 Sensation grossly intact, no focal neurologic deficits. No dysdiadochokinesia or dysmetria. 10.Psych: (AAO) x3. Appropriate mood and affect Course Vital Signs Vital signs: Vital Signs Temperature 36.7 C 03/18/24 04:32 Pulse 92 H 03/18/24 04:32 Respiratory Rate 15 03/18/24 04:32 Blood Pressure 99/41 L 03/18/24 04:32 Pulse Oximetry 100 03/18/24 04:32 Temperature 36.7 C 03/18/24 04:32 Temperature Source Temporal Artery Scan 03/18/24 04:32 Pulse 92 H 03/18/24 04:32 Respiratory Rate 18 03/18/24 04:42 Respiratory Effort Normal 03/18/24 04:42 Respiratory Depth Normal 03/18/24 04:42 Respiratory Pattern Normal 03/18/24 04:42 Blood Pressure 99/41 L 03/18/24 04:32 Pulse Oximetry 100 03/18/24 04:32 Oxygen Delivery Method Room Air 03/18/24 04:32 Oxygen Flow Rate 0 03/18/24 04:32 Pain Level 0 03/18/24 04:32 Medical Decision Making 48-year-old female with a past medical history of coronary artery disease with 2 stents, type 1 diabetes, GERD, chronic kidney disease, who takes daily aspirin, presents today for evaluation of dizziness, increased heart rate and fatigue. Patient states that at about 4:30 PM yesterday afternoon she took some marijuana edibles, she eventually went to sleep and then at around 3 AM she woke and felt notably dizzy, felt that her heart rate was high, did not feel well. She eventually called EMS and was brought to the ER for further assessment. Currently she states the dizziness and heart rate has resolved, however she just feels very very fatigued at this point. She denies any chest pain or shortness of breath, fever or chills. She denies any vomiting or diarrhea. No numbness tingling or weakness otherwise. She denies any falls or trauma to the head. She denies taking any other illicit substances. Exam demonstrates notably dry mucous membranes, blood pressure slightly low at 106/41. Glucose is high in the 200s. No focal neurologic deficits. No signs of trauma. Differential includes dehydration, marijuana side effect, hyperglycemia causing DKA, stroke and bleed/subdural less likely. Will evaluate for these etiologies, rehydrate, monitor closely and reassess. 6 AM Laboratory workup has returned, patient does have hyperkalemia at 5.4, no white count bandemia or left shift. CT scan of the head is negative for acute process. VBG negative for evidence of acidosis or DKA. Patient is still slightly nauseous, but otherwise she states she feels much better. CT scan of the head negative for acute process. With the patient's hyperkalemia she does not show evidence of significant EKG change, however we will give calcium gluconate, 10 units of IV insulin especially with her hyperglycemia, 2 albuterol nebulizers, monitor closely and reassess. Also of note the patient's TSH is low, and free T4 is slightly elevated at 1.97. Palpation of the neck demonstrates no evidence of goiter lesions or nodules that I can palpate. I do not feel that the patient's current symptomatology is clinically indicative or consistent with thyroid storm. 8 AM Still pending repeat electrolytes. On reassessment patient feels well, symptoms have totally resolved, she has been able to tolerate p.o., she feels comfort able. If the patient's repeat potassium is normal, I do feel that discharge is reasonable with close follow-up with her PCP for repeat assessment of her TSH in 1 week and free T4 to make sure that there is no continued increase. Patient will be signed out to my colleague Dr. Adam Whalen, for follow-up on labs. Quality:[facility] Health Related Social Needs: No Data to Display PFSH All Active Problems Hx of tonsillectomy (Chronic) Atherosclerosis of coronary artery without angina pectoris (Acute) Retinopathy due to secondary diabetes mellitus (Acute) Gastroesophageal reflux disease without esophagitis (Acute) Mild intermittent asthma (Acute) Hyperlipemia (Acute) H/O heart artery stent (Chronic) 2 Stents at [facility] 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 of right ear (Acute) Nail dystrophy (Acute) Type 1 diabetes mellitus with diabetic polyneuropathy (Acute) Retinopathy (Acute) Type 1 diabetes mellitus (Acute) Asthma (Chronic) GERD (gastroesophageal reflux disease) (Chronic) CAD (coronary artery disease), [place] coronary artery (Acute) Neurogenic bladder (Acute) IDDM (insulin dependent diabetes mellitus) (Chronic) Nonsustained paroxysmal ventricular tachycardia (Acute) Vitamin D deficiency (Acute) Neuropathy (Acute) Chronic kidney disease, stage I (Acute) Hearing loss (Acute) Blind right eye (Acute) Cellulitis of foot (Acute) Medical History Hypomagnesemia Cancer of cervix Hyperkalemia Visual loss Acute pain in female pelvis Elevated troponin History of deep vein thrombophlebitis of lower extremity Surgical History Hx of LASIK Hx of section At [facility] 2006 History of partial hysterectomy Family History Father Asthma Diabetes Heart disease Hypertension Maternal Aunt Breast cancer Mother Hypertension Heart disease Maternal Aunt Breast cancer COPD (chronic obstructive pulmonary disease) Maternal Aunt Diabetes Social History Smoking/Tobacco Use Status: Never Second Hand Exposure: Yes Smoking risk assessment performed?: Yes Alcohol Intake: never Drug use: Never Details: edibles Adopted: No Caregiver/Support person: Yes (significant other) Foster care: No Household members: significant other and children Housing: apartment Number of Children: 1 number of grandchildren: 0 Communication Needs: Hard of Hearing and Blind Education Level: high school Do you need help understanding health information?: Often current occupation: Disabled Pets and animals: Yes (1 Cat, 2 Guinea Pigs) Pets and animals: cat(s) and guinea pig(s) Do you think of yourself as: straight/heterosexual Current gender identity: female What is your relationship status?: living with partner How often do you talk on the phone with friends or family?: three or more times per week How often do you get together with friends or relatives?: three or more times per week How often do you attend orthodox or confucianist services?: decline to answer Do you belong to any clubs or organized social groups?: no Panel score (0-1 are the most socially isolated patients): 2 What type of physical activity do you participate in: walking Duration: 15-30 minutes/day Frequency: daily Trina/Adventism: None Seatbelt use: always Drive intox or ride w/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
[2024-03-18 04:57] LABS: BE (Venous) -1 mmol/L (-2-3); HCO3 (Venous) 25 mmol/L (23-28); O2 Sat (Venous) 68 %; TCO2 (Venous) 23 mmol/L (24-29); pCO2 (Venous) 50 mmHg (41-51); pH (Venous) 7.31 (7.31-7.41); pO2 (Venous) 37 mmHg
[2024-03-18 04:58] LABS: Abs Immature Grans 0.02 10^3/uL (0.0-0.06); Absolute Basophil Count 0.04 10^3/uL (0.0-0.2); Absolute Eosinophil Count 0.07 10^3/uL (0.0-0.7); Absolute Lymphocyte Count 1.41 10^3/uL (1.2-3.4); Absolute Monocyte Count 0.61 10^3/uL (0.1-0.8); Absolute Neutrophil Count 5.64 10^3/uL (1.2-6.7); Basophils % 0.5 %; Eosinophils % 0.9 %; HGB 13.6 g/dL (11.2-15.7); Immature Grans % 0.3 %; Lymphocytes % 18.1 %; MCH 30.5 pg (27.0-33.0); MCHC 33.2 % (32.0-36.0); MCV 92 fL (80-95); MPV 9.3 fL (8.0-11.0); Monocytes % 7.8 %; Neutrophils % 72.4 %; Platelet Count 176 10^3/uL (130-400); RBC 4.46 10^6/uL (3.93-5.22); RDW 12.5 % (11.7-14.6); RDW-SD 42.5 fL; WBC 7.79 10^3/uL (4.4-10.8)
[2024-03-18] MEDS: Lactated Ringers 1,000 ML 1000 ML IV ×2 (05:01→07:08)
[2024-03-18 05:16] LABS: Bilirubin Negative (Negative); Blood Negative (Negative); Clarity Clear (Clear); Glucose 500 mg/dL (Negative); Ketones 15 mg/dL (Negative); Leukocyte Esterase Negative (Negative); Nitrite Negative (Negative); Specific Gravity 1.015 (1.005-1.025); Urobilinogen 0.2 mg/dL (Up to 0.2); pH 5.5 (5-8)
[2024-03-18 05:28] LABS: *AMPHETAMINES SCREEN URINE Negative (Negative); *BARBITURATES SCREEN URINE Negative (Negative); *BENZODIAZEPINES SCREEN URINE Negative (Negative); Cannabinoids THC Positive (Negative); Cocaine Screen,Urine Negative (Negative); METHADONE URINE SCREEN Negative (Negative); OPIATES URINE SCREEN Negative (Negative)
[2024-03-18 05:31] LABS: ALT 60 U/L (14-59); AST 48 U/L (15-37); Albumin 4.1 g/dL (3.4-5.0); Alkaline Phosphatase 114 U/L (46-116); Anion Gap 11.9 mmol/L (3-11); BUN 27 mg/dL (7-18); CO2 26.1 mmol/L (21.0-32.0); CREATININE 1.1 mg/dL (0.55-1.02); Calcium 9.8 mg/dL (8.5-10.1); Chloride 100 mmol/L (98-107); Glucose 281 mg/dL (74-106); Potassium 5.4 mmol/L (3.5-5.1); Sodium 138 mmol/L (136-145); TSH (W/Ref FT4) 0.31 uIU/mL (0.36-3.74); Total Protein 7.3 g/dL (6.4-8.2); Troponin I < 50 ng/L (< or =60)
[2024-03-18 05:40] LABS: Tricyclic Antidepressants Negative (Negative)
--- NOTE | 2024-03-18 05:54 | DI.VRAD_ITS ---
PROCEDURE INFORMATION: Exam: CT Head Without Contrast Exam date and time: 03/18/2024 5:18 AM Age: 48 years old Clinical indication: Other: Confused, near syncope, eval for bleed/subdural TECHNIQUE: Imaging protocol: Computed tomography of the head without contrast. COMPARISON: CT BRAIN NECK CTA 07/05/2023 11:54 AM FINDINGS: Brain: Minimal cortical sulcal prominence. No hemorrhage. Unremarkable white matter. No mass effect. Cerebral ventricles: No ventriculomegaly or intraventricular hemorrhage. The Paranasal sinuses: Visualized sinuses are unremarkable. No fluid levels. Mastoid air cells: Visualized mastoid air cells are well aerated. Bones: Unremarkable. No acute fracture. Soft tissues: Unremarkable. IMPRESSION: No acute intracranial abnormality. Dictated and Authenticated by: Dillon Trejo MD. Ordering:VÍCTOR Saldaña MD
[2024-03-18 05:57] LABS: FREE T4 1.97 ng/dL (0.76-1.46)
[2024-03-18] MEDS: Albuterol 2.5 MG/3 ML INH SOLN VIAL 5 MG UPD (06:20)
[2024-03-18] MEDS: Calcium Gluconate 4.65 MEQ/10 ML VIAL 4.65 MG IVP (06:32)
[2024-03-18] MEDS: Insulin REGULAR-Human 100 UNITS/ML UNIT 10 UNITS IV (06:44)
[2024-03-18] MEDS: Ondansetron 4 MG/2 ML VIAL IVP (07:03)
--- NOTE | 2024-03-18 07:28 | TELEP.MEDREC ---
Date of service: 03/18/24 Time of Service: 07:28 Telepharmacy Home Med Rec Allergies Allergies: No Known Allergies Allergy (Verified 03/18/24 05:20) Interview Person Interviewed: Patient and boyfriend who called home and had daughter retrieve pill bottles Quality Quality of Interview/Accuracy of Medication List: Excellent Changes made to Home Medication List: ADDITIONS: None DELETIONS: Albuterol, Glucagon, Ketoconazole, Metoprolol, Ntg, duplicate MVI, Duplicate Aspart Additional Notes Additional Notes: Every medication in the patients house was retrieved. List is comprehensive. Recommended Changes Attestation: The home medication list is now updated to the best of my knowledge and is ready to be reconciled by the provider. Please contact the TelePharmacy Medication Reconciliation Pharmacist at for any questions.
[2024-03-18 08:07] LABS: Anion Gap 15.4 mmol/L (3-11); BUN 29 mg/dL (7-18); CO2 21.6 mmol/L (21.0-32.0); CREATININE 1.2 mg/dL (0.55-1.02); Calcium 10.1 mg/dL (8.5-10.1); Chloride 103 mmol/L (98-107); Estimated GFR 55.49 (mL/min/1.73m2); Glucose 171 mg/dL (74-106); Potassium 4.2 mmol/L (3.5-5.1); Sodium 140 mmol/L (136-145)
--- NOTE | 2024-03-18 08:08 | W.EDPROG ---
Date of service: 03/18/24 Time of Service: 08:08 Medical Decision Making In brief, this is a 48-year-old female patient with a history of type 1 diabetes, coronary artery disease status post stent placement, asthma, and CKD. She presented to the emergency department with lightheadedness upon awakening, and during her time in the emergency department was identified Medical Records Medical records reviewed: Yes I reviewed the patient's medical records. Quality:SDOH Health Related Social Needs: No Data to Display Sign Out Sign Out Data: Sign Out Comment: Dehydrated, slightly elevated TSH, lightheaded with mild palpitations. Follow-up on repeat potassium. Last updated by Piotr Savage DO at 03/18/24 08:07 Discharge Plan Discharge Details Chief Complaint: Dizzy/Sync Primary Care Provider: Karie Lindsey ED Provider: Jessica Caba Home Meds and New Rx's Prescriptions: No Action Jardiance 10 mg tablet 10 mg PO DAILY MDD 10 mg 90 Days Qty: 90 4RF Rx Instructions: Take 10 mg tablet once daily in the morning as directed. (DME) Ketone Urine Test Strip See Rx Instructions .Route Qty: 50 4RF Rx Instructions: As directed (DME) Ketostix Strip See Rx Instructions .Route Rx Instructions: As directed aspirin [Children's Aspirin] 81 mg tablet,chewable 81 mg PO DAILY multivitamin with folic acid [Tab-A-Aaron] 400 mcg tablet 1 tab PO DAILY Patient Comments: TAKE ONE TABLET BY MOUTH EVERY DAY Fiasp FlexTouch U-100 Insulin 100 unit/mL (3 mL) insulin pen 1 sliding scale dose SUBCUT AC Patient Comments: INJECT BASED ON CARBS WITH MEALS AND SNACKS RATIO 1:10G AND COREECT FOR BG GREATER THAN 150 BASED ON ISF 1:25 MAX DAILY DOSE 50 UNITS atorvastatin 80 mg tablet 80 mg PO DAILY Patient Comments: Take 1 tablet by mouth every evening insulin glargine [Basaglar KwikPen U-100 Insulin] 100 unit/mL (3 mL) insulin pen 20 unit SUBCUT DAILY Patient Comments: INJECT 22 UNITS UNDER THE SKIN EVERY MORNING magnesium oxide 400 mg (241.3 mg magnesium) tablet 400 mg PO DAILY Qty: 14 0RF Discharge Instructions Additional Instructions: At this time your potassium has been corrected. You have been rehydrated. Please take the Zofran as needed for nausea. Please follow-up closely with your primary care provider next week for reassessment of your thyroid function. If you notice any worsening of your symptoms, or any new symptoms such as vomiting, diarrhea, fever, chills, shortness of breath, chest pain, numbness, weakness, or fainting , please return immediately to the emergency department for reevaluation. Please follow up with your primary care provider as soon as possible for reassessment and reevaluation. As always, it was a pleasure participating in your medical care today.
[2024-03-18] MEDS: Ondansetron O.D.T. 4 MG TABEF, 3 TABS/BTL PO (08:17)
== END 2024-03-18 09:39 | disposition home or self-care (01) ==
PROVIDERS: Student in an Organized Health Care Education/Training Program; Emergency Provider Emergency Medicine; PCP Nurse Practitioner
DX: M79.602 Pain in left arm (principal); R00.2 Palpitations; R79.89 Other specified abnormal findings of blood chemistry; E86.0 Dehydration; E87.5 Hyperkalemia; Z79.4 Long term (current) use of insulin
CPT/HCPCS: 36415; 36416; 80048; 80053; 80307; 82805; 82962; 94640; 96361; 96374; 96375; 99284; 70450; 81003; 84439; 84443; 84484; 85025; 99283; J0612; J1815; J2405; J7613

== ENCOUNTER 2024-03-18 13:05 | Emergency (ER) | payer MEDICARE, MEDICAID, SELFPAY ==
--- NOTE | 2024-03-18 13:00 | RT.EKG_ITS ---
APPROVED REPORT Exam: Resting ECG Reason for Exam: Chest pain Patient Location: E HR:96 bpm ECG Measurements Heart Rate 96 AXIS DE 142 P 84 QRSd 115 QRS -44 QT 371 T 60 QTc 468 Conclusion Sinus rhythm Incomplete RBBB No STEMI Rate 96
[2024-03-18 13:07] VITALS: BP 91/27; PULSE 97; RESP 15; TEMP 36.4; O2SAT 100
--- NOTE | 2024-03-19 10:14 | NUR.NOTE ---
In chart to send records to [facility]
== END 2024-03-18 15:42 | disposition left against medical advice (07) ==
LOC: ER 13:15
PROVIDERS: Emergency Provider Emergency Medicine; PCP Nurse Practitioner
DX: R07.9 Chest pain, unspecified (principal); E87.5 Hyperkalemia; R42 Dizziness and giddiness
CPT/HCPCS: 93005; 99283; 93010

== ENCOUNTER 2024-04-01 00:25 | Outpatient (CLI) | payer MEDICARE, MEDICAID, SELFPAY ==
--- OUTSIDE RECORDS SUMMARY | 2024-04-01 00:33 | XMS_ITS | Encounter Summary ---
Author Organization [facility] [place] [address] Care Team Providers Care Certified Nurse Practitioner Name Role Phone Felisha Juan APRN Primary Care Provider + [phone] Encounter Details Date Type Department Care Team (Late st Contact Info) Description 01/07/2022 Telephone Cardiac Rehab [facility] [place] [id number] Nicole Walters RN Social History Tobacco Use Types Packs/Day Years Used Date Smoking Tobacco: Never Smokeless Tobacco: Never Alcohol Use Standard Drinks/Week Comments Not Currently 0 (1 standard drink = 0.6 oz pur e alcohol) Sex and Gender Information Value Date Recorded Sex Assigned at Not on file Gender Identity Not on file Sexual Orientation Not on file documented as of this encounter Miscellaneous Notes * Telephone Encounter - Nicole Walters RN - 01/07/2022 1:41 PM EDT Cardiac rehab- Patient discharged from [facility] prior to our team meeting her. She is s/p STEMI, PCI. I called her today and confirmed cardiac rehab referral to [facility]. Will send along her heart diagram, home walk program and brochure. documented in this encounter Plan of Treatment Not on file documented as of this encounter Visit Diagnoses Not on filedocumented in this encounter Care Teams Certified Nurse Practitioner Relationship Specialty Start Date End Date Felisha Juan APRN [address] [place] [address] PCP - General Family Medicine 10/29/15 01/29/22 documented as of this encounter
--- OUTSIDE RECORDS SUMMARY | 2024-04-01 00:33 | XMS_ITS | Encounter Summary ---
Author Organization [facility] Address [facility] [place] [address] Care Team Providers Care Brakes Inspector Name Role Phone Yessica Felisha WILLSON Primary Care Provider + [phone] Encounter Details Date Type Department Care Team (Late st Contact Info) Description 01/12/2022 External Results Administration [facility] [place] [address] Social History Tobacco Use Types Packs/Day Years Used Date Smoking Tobacco: Never Smokeless Tobacco: Never Alcohol Use Standard Drinks/Week Comments Not Currently 0 (1 standard drink = 0.6 oz pur e alcohol) Sex and Gender Information Value Date Recorded Sex Assigned at Not on file Gender Identity Not on file Sexual Orientation Not on file documented as of this encounter Plan of Treatment Not on file documented as of this encounter Procedures Procedure Name Priority Date/Time Associated Diagnosis Comments ECG SCAN Routine 01/12/2022 documented in this encounter Results * Scan Doc: ECG (01/12/2022) Historical Provider MD DOMÍNGUEZ MGR SCAN EX T ORDR/RSLT documented in this encounter Visit Diagnoses Not on filedocumented in this encounter Care Teams Brakes Inspector Relationship Specialty Start Date End Date Felisha Juan APRN [address] [place] [address] PCP - General Family Medicine 10/29/15 01/29/22 documented as of this encounter
--- OUTSIDE RECORDS SUMMARY | 2024-04-01 00:33 | XMS_ITS | Data Portability ---
Author Organization [place] - [facility] [place] [address] Care Team Providers Care Dolly Pusher Name Role Phone NAVIN PITTMAN Primary Care Provider [phone] FRANCIS RING Bending Machine Operator ROCK RAMIREZ Film Mounter [facility] ENDOCRINOLOGY Endocrinologis t [facility] PODIATRY Rhythmic Gymnastics Coach Assessment Encounter Date Assessment Date Assessment LastModified by Organization Details LastModified Time 09/25/2023 09/25/2023 Kailey's chronic medical issues appear stable. Unfortunately we are unable to download her CGM data today. We will try to get this next week. No changes to medication management were made today. She has cardiology follow-up this summer. She has been referred to [facility] for consideration of left ear surgery to help restore hearing. Follow-up here in 3 months. She declines colon cancer and breast cancer screenings. [email or web address] Not available 09/25/2023 11:15:03 Plan of Treatment Reminders Order Date Submit Date Provider Last Modified By Organization Details Last Modified Time Details Appointments None recorded. Lab None recorded. Referral None recorded. Procedures None recorded. Surgeries None recorded. Imaging None recorded. Medication Orders atorvastati n 80 mg tablet 2023 024 [address] [facility], [address], [place], [address], 11:46:21 metoprolol succinate ER 25 mg tablet,exte nded release 24 hr 2023 024 [facility], [address] [place], [address], 13:59:01 Patient TargetsNo targets recorded. Patient Instructions Encounter Date Encounter Id Patient Instructions Last Modified By Organization Details Last Modified Time 09/25/2023 [id number] Kailey Shanks I will get in touch with Lucia so she can download your blood sugars next week. [email or web address] Not available 09/25/2023 10:01:34 12/22/2023 [id number] Kailey - slowly titrate your basaglar by one unit per week to get blood sugars in better control. Use bag balm over the heel. and cover with a bandaid. [email or web address] Not available 12/22/2023 10:54:42 Reason for Referral None Reported. Results Created Date Observation Date Name Description Value Unit Range Abnormal Flag Note LastModifiedBy Organization Detail LastModifiedTime 06/11/2006/11/2023 micro album in/cr eatin ine, ratio , urine microalb/cre 10.9 ug/mg cr mg/g Not Available Not Available 03:12:25 06/11/2006/11/2023 micro album in, urine albumin, urine 4.3 mg/L 1.30-2 0.0 normal Not Available Not Available 03/04/2024 03:12:24 06/11/2006/11/2023 lipid panel , blood cholesterol, total, serum 145 mg/dL <200 Not Available Not Available 03/04/2024 03:12:21 06/11/2006/11/2023 lipid panel , blood HDL 68 mg/dL 40-60 Not Available Not Availa ble 03/04/2024 03:12:21 06/11/20 23 06/11/2023 lipid panel , blood LDL 68 mg/dL <100 Not Available Not Availa ble 03/04/2024 03:12:21 06/11/2006/11/2023 lipid panel , blood triglyceride , 12H fasting, qn, serum or plasma 48 mg/dL <150 Not Available Not Available 09/2023 03:12:21 06/11/2006/11/2023 hemog lobin (Hb), blood hemoglobin (Hb), blood 13.1 g/dL 11.2-1 5.7 normal Not Available Not Available 03/04/2024 03:12:20 06/11/2006/11/2023 HbA1c (hemo globi n A1c), blood HbA1C (hemoglobin A1C), blood 8.7 % <5.7 high Not Available Not Available 03/04/2024 03:12:19 06/11/2006/11/2023 gluco se, QN [mass /volu me], blood glucose ser 342 mg/dL 74-106 high Not Available [facility] [address], [place], [address], 03/04/2024 03:12:18 06/11/2006/11/2023 creat inine , urine creatin ur 39.42 mg/dL Not Available Not Bekah ilable 03/04/2024 03:12:17 06/11/2006/11/2023 CMP, serum or plasm a albumin, serum or plasma 3.8 g/dL 3.4-5. 0 normal Not Available Not Available 03/04/2024 03:12:05 06/11/2006/11/2023 CMP, serum or plasm a aniongap 6.3 mmol/ L 3-11 normal Not Available Not Available 03/04/20 03:12:05 06/11/2006/11/2023 CMP, serum or plasm a bilirubin, total, serum or plasma 0.7 mg/dL 0.2-1. 0 normal Not Available Not Available 03/04/2024 03:12:05 06/11/2006/11/2023 CMP, serum or plasm a BUN (blood urea nitrogen), serum or plasma 21 mg/dL 7-18 high Not Available Not Available 09/2023 03:12:05 06/11/2006/11/2023 CMP, serum or plasm a calcium, qn, serum or plasma 9.4 mg/dL 8.5-10 .1 normal Not Available Not Available 03/04/2024 03:12:05 06/11/2006/11/2023 CMP, serum or plasm a chloride, serum or plasma 98 mmol/ L 98-107 normal Not Available Not Available 03/04/20 03:12:05 06/11/2006/11/2023 CMP, serum or plasm a CO2, (carbon dioxide), total, serum or plasma 29.7 mmol/ L 21.0-3 2.0 normal Not Available Not Available 03/04/2024 03:12:05 06/11/2006/11/2023 CMP, serum or plasm a creatinine, serum or plasma 1.0 mg/dL 0.55-1 .02 normal Not Available Not Available 03/04/2024 03:12:05 06/11/2006/11/2023 CMP, serum or plasm a eGFR 69.06 (?) mL/mi n/1.7 3m2 mL/min /1.73m 2 Not Available Not Available 03/04/2024 03:12:05 06/11/2006/11/2023 CMP, serum or plasm a potassium, serum or plasma 4.3 mmol/ L 3.5-5. 1 normal Not Available Not Available 03/04/2024 03:12:05 06/11/2006/11/2023 CMP, serum or plasm a protein, total, serum 7.5 g/dL 6.4-8. 2 normal Not Available Not Available 03/04/2024 03:12:05 06/11/2006/11/2023 CMP, serum or plasm a AST/SGOT (aspartate aminotransfe rase), serum or plasma 29 units /L 15-37 normal Not Available Not Available 03/04/20 03:12:05 06/11/2006/11/2023 CMP, serum or plasm a ALT (alanine aminotransfe rase), serum or plasma 45 units /L 14-59 normal Not Available Not Available 03/04/20 03:12:05 06/11/2006/11/2023 CMP, serum or plasm a sodium, serum or plasma 134 mmol/ L 136-14 5 low Not Available Not Available 03/04/2024 03:12:05 06/11/2006/11/2023 CBC hematocrit, automated count, blood 38.8 % 36.0-4 6.0 normal Not Available Not Available 03/04/2024 03:11:57 06/11/20 23 06/11/2023 CBC MCH 30.6 pg 27.0-3 3.0 normal Not Available Not Available 03/04/2024 03:11:57 06/11/20 23 06/11/2023 CBC MCHC 33.8 % 32.0-3 6.0 normal Not Available Not Available 03/04/2024 03:11:57 06/11/20 23 06/11/2023 CBC MCV, blood 91 fL 80-95 normal Not Available N ot Available 03/04/2024 03:11:57 06/11/20 23 06/11/2023 CBC MPV 9.3 fL 8.0-11 .0 normal Not Available Not Available 03/04/2024 03:11:57 06/11/20 23 06/11/2023 CBC platelets, auto, blood 187 10 3/uL 10*3/ mm3 130-40 0 normal Not Available Not Available 03/04/2024 03:11:57 06/11/20 23 06/11/2023 CBC RBC count, blood 4.28 10 6/uL 10*6/ mm3 3.93-5 .22 normal Not Available Not Available 03/04/2024 03:11:57 06/11/20 23 06/11/2023 CBC RDW 12.5 % 11.7-1 4.6 normal Not Available Not Available 03/04/2024 03:11:57 06/11/20 23 06/11/2023 CBC WBC 5.11 10 3/uL 10*3/ mm3 4.4-10 .8 normal Not Available Not Available 03/04/2024 03:11:57 07/05/20 23 07/05/2023 COMPL ETE BLOOD COUNT W/DIF F WBC 6.46 10_3/ uL 4.4-10 .8 normal Not Available [address] [place], [address] 07/05/2023 12:04:31 07/05/20 23 07/05/2023 COMPL ETE BLOOD COUNT W/DIF F RBC 4.52 10_6/ uL 3.93-5 .22 normal Not Available [address] [place], [address] 07/05/2023 12:04:31 07/05/20 23 07/05/2023 COMPL ETE BLOOD COUNT W/DIF F HGB 13.9 g/dL 11.2-1 5.7 normal Not Available [address] [place], [address] 07/05/2023 12:04:31 07/05/20 23 07/05/2023 COMPL ETE BLOOD COUNT W/DIF F HCT 40.3 % 36.0-4 6.0 normal Not Available [address] [place], [address] 07/05/2023 12:04:31 07/05/20 23 07/05/2023 COMPL ETE BLOOD COUNT W/DIF F MCV 89 fL 80-95 normal Not Available [address] [place], [address] 07/05/2023 12:04:31 07/05/20 23 07/05/2023 COMPL ETE BLOOD COUNT W/DIF F MCH 30.8 pg 27.0-3 3.0 normal Not Available [address] [place], [address] 07/05/2023 12:04:31 07/05/20 23 07/05/2023 COMPL ETE BLOOD COUNT W/DIF F MCHC 34.5 % 32.0-3 6.0 normal Not Available [address] [place], [address] 07/05/2023 12:04:31 07/05/20 23 07/05/2023 COMPL ETE BLOOD COUNT W/DIF F RDW 11.9 % 11.7-1 4.6 normal Not Available [address] [place], [address] 07/05/2023 12:04:31 07/05/20 23 07/05/2023 COMPL ETE BLOOD COUNT W/DIF F platelet count 204 10_3/ uL 130-40 0 normal Not Available [address] [place], [address] 07/05/2023 12:04:31 07/05/20 23 07/05/2023 COMPL ETE BLOOD COUNT W/DIF F MPV 9.6 fL 8.0-11 .0 normal Not Available [address] [place], [address] 07/05/2023 12:04:31 07/05/20 23 07/05/2023 COMPL ETE BLOOD COUNT W/DIF F neutrophils % 54.7 Not Available [address] [place], [address] 07/05/2023 12:04:31 07/05/20 23 07/05/2023 COMPL ETE BLOOD COUNT W/DIF F lymphocytes % 33.7 Not Available [address] [place], [address] 07/05/2023 12:04:31 07/05/20 23 07/05/2023 COMPL ETE BLOOD COUNT W/DIF F monocytes % 9.3 Not Available [address] [place], [address] 07/05/2023 12:04:31 07/05/20 23 07/05/2023 COMPL ETE BLOOD COUNT W/DIF F eosinophils % 1.5 Not Available [address] [place], [address] 07/05/2023 12:04:31 07/05/20 23 07/05/2023 COMPL ETE BLOOD COUNT W/DIF F basophils % 0.5 Not Available [address] [place], [address] 07/05/2023 12:04:31 07/05/20 23 07/05/2023 COMPL ETE BLOOD COUNT W/DIF F immature grans % 0.3 Not Available [address] [place], [address] 07/05/2023 12:04:31 07/05/20 23 07/05/2023 COMPL ETE BLOOD COUNT W/DIF F nucleated RBC 0.0 % 0.0-0. 3 normal Not Available [address] [place], [address] 07/05/2023 12:04:31 07/05/20 23 07/05/2023 COMPL ETE BLOOD COUNT W/DIF F absolute neutrophil count 3.53 10_3/ uL 1.2-6. 7 normal Not Available [address] [place], [address] 07/05/2023 12:04:31 07/05/20 23 07/05/2023 COMPL ETE BLOOD COUNT W/DIF F absolute lymphocyte count 2.18 10_3/ uL 1.2-3. 4 normal Not Available [address] [place], [address] 07/05/2023 12:04:31 07/05/20 23 07/05/2023 COMPL ETE BLOOD COUNT W/DIF F absolute monocyte count 0.60 10_3/ uL 0.1-0. 8 normal Not Available [address] [place], [address] 07/05/2023 12:04:31 07/05/20 23 07/05/2023 COMPL ETE BLOOD COUNT W/DIF F absolute eosinophil count 0.10 10_3/ uL 0.0-0. 7 normal Not Available [address] [place], [address] 07/05/2023 12:04:31 07/05/20 23 07/05/2023 COMPL ETE BLOOD COUNT W/DIF F absolute basophil count 0.03 10_3/ uL 0.0-0. 2 normal Not Available [address] [place], [address] 07/05/2023 12:04:31 07/05/20 23 07/05/2023 NGOZI IA ammonia < 10 umol/ L 11-32 low Not Available [address] [place], [address] 07/05/2023 12:13:31 07/05/20 23 07/05/2023 PROTH ROMBI N TIME prothrombin time 10.6 sec 9.1-11 .1 normal Not Available [address] [place], [address] 07/05/2023 12:39:32 07/05/20 23 07/05/2023 PROTH ROMBI N TIME INR 1.1 0.9-1. 1 normal Recom celia d INR thera peuti c range s for orall y admin ister ed drugs are as follo ws: -[place] dard Inten sity 2.0 to 3.0 -High er Inten sity 3.0 to 4.5 Not Available [address] [place], [address] 07/05/2023 12:39:32 07/05/20 23 07/05/2023 D-DIM ER D-dimer 767 NG/ml feu <500 high *Lite ratur e suppo rts the exclu marysol of DVT and/o r PE with a resul t less than 500 ng/ml FEU with this metho d.* Not Available [address] [place], [address] 07/05/2023 12:39:32 07/05/20 23 07/05/2023 COMPR EHENS JES METAB OLIC PANEL calcium 9.2 mg/dL 8.5-10 .1 normal Not Available [address] [place], [address] 07/05/2023 12:41:33 07/05/20 23 07/05/2023 COMPR EHENS JES METAB OLIC PANEL glucose 289 mg/dL 74-106 high Not Available Kalpesh [facility]illas [address] [place], [address] 07/05/2023 12:41:33 07/05/20 23 07/05/2023 COMPR EHENS JES METAB OLIC PANEL BUN 16 mg/dL 7-18 normal Not Available Kalpesh casillas [address] [place], [address] 07/05/2023 12:41:33 07/05/20 23 07/05/2023 COMPR EHENS JES METAB OLIC PANEL creatinine 0.9 mg/dL 0.55-1 .02 normal Not Available [address] [place], [address] 07/05/2023 12:41:33 07/05/20 23 07/05/2023 COMPR EHENS JES METAB OLIC PANEL estimated GFR 78.37 mL/min /1.73m 2 The eGFR is calcu lated from a serum creat inine using the CKD-E PI 2020 equat ion. Other varia bles requi red for the equat ion are gende r and age; this equat ion does not inclu de a race coeff icien t. This equat ion has simil ar overa ll perfo rmanc e to previ ous equat ions excep t value s may diffe r, in parti cular , in patie nts with highe r value s of eGFR and young er-ag ed adult s. Not Available [address] [place], [address] 07/05/2023 12:41:33 07/05/20 23 07/05/2023 COMPR EHENS JES METAB OLIC PANEL total protein 7.6 g/dL 6.4-8. 2 normal Not Available [address] [place], [address] 07/05/2023 12:41:33 07/05/20 23 07/05/2023 COMPR EHENS JES METAB OLIC PANEL albumin 3.7 g/dL 3.4-5. 0 normal Not Available [address] [place], [address] 07/05/2023 12:41:33 07/05/20 23 07/05/2023 COMPR EHENS JES METAB OLIC PANEL bilirubin, total 0.5 mg/dL 0.2-1. 0 normal Not Available [address] [place], [address] 07/05/2023 12:41:33 07/05/20 23 07/05/2023 COMPR EHENS JES METAB OLIC PANEL alk phos 109 U/L 46-116 normal Not Available [address] [place], [address] 07/05/2023 12:41:33 07/05/20 23 07/05/2023 COMPR EHENS JES METAB OLIC PANEL sodium 135 mmol/ L 136-14 5 low Not Available [address] [place], [address] 07/05/2023 12:41:33 07/05/20 23 07/05/2023 COMPR EHENS JES METAB OLIC PANEL potassium 4.8 mmol/ L 3.5-5. 1 normal Not Available [address] [place], [address] 07/05/2023 12:41:33 07/05/20 23 07/05/2023 COMPR EHENS JES METAB OLIC PANEL chloride 100 mmol/ L 98-107 normal Not Available [address] [place], [address] 07/05/2023 12:41:33 07/05/20 23 07/05/2023 COMPR EHENS JES METAB OLIC PANEL CO2 31.1 mmol/ L 21.0-3 2.0 normal Not Available [address] [place], [address] 07/05/2023 12:41:33 07/05/2007/05/2023 COMPR EHENS JES METAB OLIC PANEL anion gap 3.9 mmol/ L 3-11 normal Not Available [address] [place], [address] 07/05/2023 12:41:33 07/05/20 23 07/05/2023 COMPR EHENS JES METAB OLIC PANEL AST 34 U/L 15-37 normal Not Available Kalpesh [address] [place], [address] 07/05/2023 12:41:33 07/05/2007/05/2023 COMPR EHENS JES METAB OLIC PANEL ALT 51 U/L 14-59 normal Not Available Kalpesh [address] [place], [address] 07/05/2023 12:41:33 07/05/2007/05/2023 ETHYL ALCOH OL ethyl alcohol < 3.0 mg/dL <10 ETOH Refer ence Range = <10 mg/dL Legal Limit of Intox icati on is 80 mg/dL This test is inten ded only for Medic al purpo ses. Divid e resul t by 1000 to conve rt to %(w/v ) Not Available [address] [place], [address] 07/05/2023 12:41:34 07/05/20 23 07/05/2023 HCG QUANT (SERU M) HCG quant (serum) 2 mIU/m L 1-3 normal Appro ximat e Gesta nguyễn l Age/A pprox imate HCG Range mIU/m L 0.2-1 Week 5-50 1-2 Weeks 50-50 0 2-3 Weeks 100-5 ,000 3-4 Weeks 500-1 0,000 4-5 Weeks 1,000 -50,0 00 5-6 Weeks 10,00 0-100 ,000 6-8 Weeks 15,00 0-200 ,000 2-3 Month s 10,00 0-100 ,000 Not Available [address] [place], [address] 07/05/2023 12:41:34 07/05/20 23 07/05/2023 MAGNE SIUM magnesium 2.1 mg/dL 1.8-2. 4 normal Not Available [address] [place], [address] 07/05/2023 12:41:34 07/05/20 23 07/05/2023 TSH (W/RE F FT4) TSH (w/ref FT4) 0.80 uIU/m L 0.36-3 .74 normal NOTE: Supra -phys iolog ic doses of Bioti n(B7) may cause false negat jes resul ts. Not Available [address] [place], [address] 07/05/2023 12:41:35 07/05/20 23 07/05/2023 CARDI AC TROPO KANWAL I cardiac troponin I < 50 NG/L <or=60 Not Available [address], [address] 07/05/2023 12:41:35 07/05/20 23 07/05/2023 URINA LYSIS color Yellow yellow Not Available Kalpesh casillas [address], [address] 07/05/2023 14:53:39 07/05/20 23 07/05/2023 URINA LYSIS clarity Clear clear Not Available Kalpesh [facility]illas [address] [place], [address] 07/05/2023 14:53:39 07/05/20 23 07/05/2023 URINA LYSIS specific gravity 1.015 1.005- 1.025 normal Not Available [address] [place], [address] 07/05/2023 14:53:39 07/05/20 23 07/05/2023 URINA LYSIS pH 7.5 5-8 normal Not Available Kalpesh casillas [address] [place], [address] 07/05/2023 14:53:39 07/05/20 23 07/05/2023 URINA LYSIS leukocyte esterase Trace negati ve abnormal Not Available [address] [place], [address] 07/05/2023 14:53:39 07/05/20 23 07/05/2023 URINA LYSIS nitrite Negati ve negati ve Not Available [address] [place], [address] 07/05/2023 14:53:39 07/05/20 23 07/05/2023 URINA LYSIS protein Negati ve mg/dL negati ve Not Available [address] [place], [address] 07/05/2023 14:53:39 07/05/20 23 07/05/2023 URINA LYSIS glucose 250 mg/dL negati ve abnormal Not Available [address] [place], [address] 07/05/2023 14:53:39 07/05/20 23 07/05/2023 URINA LYSIS ketones Negati ve mg/dL negati ve Not Available [address] [place], [address] 07/05/2023 14:53:39 07/05/20 23 07/05/2023 URINA LYSIS urobilinogen 0.2 mg/dL up to 0.2 Not Available [address] [place], [address] 07/05/2023 14:53:39 07/05/20 23 07/05/2023 URINA LYSIS bilirubin Negati ve negati ve Not Available [address] [place], [address] 07/05/2023 14:53:39 07/05/20 23 07/05/2023 URINA LYSIS blood Negati ve negati ve Not Available [address] [place], [address] 07/05/2023 14:53:39 07/05/20 23 07/05/2023 CARDI AC TROPO KANWAL I cardiac troponin I < 50 NG/L <or=60 Not Available [address], [address] 07/05/2023 15:02:41 07/05/20 23 07/05/2023 URINA LYSIS color Yellow yellow Not Available Kalpesh casillas [address], [address] 07/05/2023 15:03:40 07/05/20 23 07/05/2023 URINA LYSIS clarity Clear clear Not Available Kalpesh casillas [address], [address] 07/05/2023 15:03:40 07/05/20 23 07/05/2023 URINA LYSIS specific gravity 1.015 1.005- 1.025 normal Not Available [address] [place], [address] 07/05/2023 15:03:40 07/05/20 23 07/05/2023 URINA LYSIS pH 7.5 5-8 normal Not Available Kalpesh casillas [address], [address] 07/05/2023 15:03:40 07/05/20 23 07/05/2023 URINA LYSIS leukocyte esterase Trace negati ve abnormal Not Available [address] [place], [address] 07/05/2023 15:03:40 07/05/20 23 07/05/2023 URINA LYSIS nitrite Negati ve negati ve Not Available [address] [place], [address] 07/05/2023 15:03:40 07/05/20 23 07/05/2023 URINA LYSIS protein Negati ve mg/dL negati ve Not Available [address] [place], [address] 07/05/2023 15:03:40 07/05/20 07/05/2023 URINA LYSIS glucose 250 mg/dL negati ve abnormal Not Available [address] [place], [address] 07/05/2023 15:03:40 07/05/20 23 07/05/2023 URINA LYSIS ketones Negati ve mg/dL negati ve Not Available [address] [place], [address] 07/05/2023 15:03:40 07/05/20 23 07/05/2023 URINA LYSIS urobilinogen 0.2 mg/dL up to 0.2 Not Available [address] [place], [address] 07/05/2023 15:03:40 07/05/20 23 07/05/2023 URINA LYSIS bilirubin Negati ve negati ve Not Available [address] [place], [address] 07/05/2023 15:03:40 07/05/20 23 07/05/2023 URINA LYSIS blood Negati ve negati ve Not Available [address] [place], [address] 07/05/2023 15:03:40 07/05/20 23 07/05/2023 MICRO SCOPI C FINDI NGS WBC 0-2 hpf 0-5 Not Available Kalpesh casillas [address], [address] 07/05/2023 15:03:40 07/05/20 23 07/05/2023 MICRO SCOPI C FINDI NGS RBC Negati ve hpf 0-2 Not Available Bettie suárez [address] [place], [address] 07/05/2023 15:03:40 07/05/20 23 07/05/2023 MICRO SCOPI C FINDI NGS epithelial cells Rare hpf negati ve Not Available [address] [place], [address] 07/05/2023 15:03:40 07/05/20 23 07/05/2023 MICRO SCOPI C FINDI NGS bacteria Rare hpf negati ve Not Available [address] [place], [address] 07/05/2023 15:03:40 07/05/20 23 07/05/2023 MICRO SCOPI C FINDI NGS crystals Negati ve hpf negati ve Not Available [address] [place], [address] 07/05/2023 15:03:40 07/05/20 23 07/05/2023 MICRO SCOPI C FINDI NGS mucus Negati ve negati ve Not Available [address] [place], [address] 07/05/2023 15:03:40 07/05/20 23 07/05/2023 MICRO SCOPI C FINDI NGS casts Negati ve lpf negati ve Not Available [address] [place], [address] 07/05/2023 15:03:40 07/05/20 23 07/05/2023 MICRO SCOPI C FINDI NGS C S indicated? Yes Not Available [address] [place], [address] 07/05/2023 15:03:40 07/05/20 23 07/06/2023 URINE CULTU RE urine culture Urine Cultu re Proba ble conta minat ed colle ction APPEA IVETTE Mixed Gram Posit jes Alta COLON Y COUNT Not Available [address] [place], [address] 07/06/2023 07:38:39 07/05/20 23 07/06/2023 URINE CULTU RE urine culture colon ies/m L 10,00 0 - 50,00 0 Day 1 Resul t ISOLA ANETA BELOW O:GPF M (ORGA NISM ID: 1.1) - GRAM POSIT JES ALTA ,MIXE D Urine Cultu re (ORGA NISM ID: 1.1) - COLON Y COUNT (ORGA NISM ID: 1.1) - 10,00 0 - 50,00 0 Not Available [address] [place], [address] 07/06/2023 07:38:39 07/05/20 23 07/07/2023 URINE CULTU RE urine culture Urine Cultu re Proba ble conta minat ed colle ction APPEA IVETTE Mixed Gram Posit jes Alta APPEA IVETTE Mixed Gram Posit jes Alta COLON Y COUNT Not Available [address] [place], [address] 07/07/2023 07:47:12 07/05/20 23 07/07/2023 URINE CULTU RE urine culture colon ies/m L 10,00 0 - 50,00 0 COLON Y COUNT 10,00 0 - 50,00 0 Day 1 Resul t ISOLA ANETA BELOW Day 2 Resul t ISOLA ANETA BELOW O:GPF M (ORGA NISM ID: 1.1) - GRAM POSIT JES ALTA ,MIXE D Urine Cultu re (ORGA NISM ID: 1.1) - COLON Y COUNT (ORGA NISM ID: 1.1) - 10,00 0 - 50,00 0 Not Available [address] [place], [address] 07/07/2023 07:47:12 08/21/19 24 08/21/2023 COMPL ETE BLOOD COUNT W/DIF F WBC 7.04 10_3/ uL 4.4-10 .8 normal Not Available [address] [place], [address] 08/21/2023 22:28:59 08/21/19 24 08/21/2023 COMPL ETE BLOOD COUNT W/DIF F RBC 4.44 10_6/ uL 3.93-5 .22 normal Not Available [address] [place], [address] 08/21/2023 22:28:59 08/21/19 24 08/21/2023 COMPL ETE BLOOD COUNT W/DIF F HGB 13.6 g/dL 11.2-1 5.7 normal Not Available [address] [place], [address] 08/21/2023 22:28:59 08/21/19 24 08/21/2023 COMPL ETE BLOOD COUNT W/DIF F HCT 39.8 % 36.0-4 6.0 normal Not Available [address] [place], [address] 08/21/2023 22:28:59 08/21/19 24 08/21/2023 COMPL ETE BLOOD COUNT W/DIF F MCV 90 fL 80-95 normal Not Available Kalpesh [address] [place], [address] 08/21/2023 22:28:59 08/21/19 24 08/21/2023 COMPL ETE BLOOD COUNT W/DIF F MCH 30.6 pg 27.0-3 3.0 normal Not Available [address] [place], [address] 08/21/2023 22:28:59 08/21/19 24 08/21/2023 COMPL ETE BLOOD COUNT W/DIF F MCHC 34.2 % 32.0-3 6.0 normal Not Available [address] [place], [address] 08/21/2023 22:28:59 08/21/19 24 08/21/2023 COMPL ETE BLOOD COUNT W/DIF F RDW 12.3 % 11.7-1 4.6 normal Not Available [address] [place], [address] 08/21/2023 22:28:59 08/21/19 24 08/21/2023 COMPL ETE BLOOD COUNT W/DIF F platelet count 181 10_3/ uL 130-40 0 normal Not Available [address] [place], [address] 08/21/2023 22:28:59 08/21/19 24 08/21/2023 COMPL ETE BLOOD COUNT W/DIF F MPV 9.5 fL 8.0-11 .0 normal Not Available [address] [place], [address] 08/21/2023 22:28:59 08/21/19 24 08/21/2023 COMPL ETE BLOOD COUNT W/DIF F neutrophils % 77.5 Not Available [place] [address] [place], [address] 08/21/2023 22:28:59 08/21/19 24 08/21/2023 COMPL ETE BLOOD COUNT W/DIF F lymphocytes % 15.2 Not Available Kole iglesias [address] [place], [address] 08/21/2023 22:28:59 08/21/19 24 08/21/2023 COMPL ETE BLOOD COUNT W/DIF F monocytes % 6.1 Not Available [address] [place], [address] 08/21/2023 22:28:59 08/21/19 24 08/21/2023 COMPL ETE BLOOD COUNT W/DIF F eosinophils % 0.4 Not Available [address] [place], [address] 08/21/2023 22:28:59 08/21/19 24 08/21/2023 COMPL ETE BLOOD COUNT W/DIF F basophils % 0.4 Not Available [address] [place], [address] 08/21/2023 22:28:59 08/21/19 24 08/21/2023 COMPL ETE BLOOD COUNT W/DIF F immature grans % 0.4 Not Available [address] [place], [address] 08/21/2023 22:28:59 08/21/19 24 08/21/2023 COMPL ETE BLOOD COUNT W/DIF F nucleated RBC 0.0 % 0.0-0. 3 normal Not Available [address] [place], [address] 08/21/2023 22:28:59 08/21/19 24 08/21/2023 COMPL ETE BLOOD COUNT W/DIF F absolute neutrophil count 5.45 10_3/ uL 1.2-6. 7 normal Not Available [address] [place], [address] 08/21/2023 22:28:59 08/21/19 24 08/21/2023 COMPL ETE BLOOD COUNT W/DIF F absolute lymphocyte count 1.07 10_3/ uL 1.2-3. 4 low Not Available [address] [place], [address] 08/21/2023 22:28:59 08/21/19 24 08/21/2023 COMPL ETE BLOOD COUNT W/DIF F absolute monocyte count 0.43 10_3/ uL 0.1-0. 8 normal Not Available [address] [place], [address] 08/21/2023 22:28:59 08/21/19 24 08/21/2023 COMPL ETE BLOOD COUNT W/DIF F absolute eosinophil count 0.03 10_3/ uL 0.0-0. 7 normal Not Available [address] [place], [address] 08/21/2023 22:28:59 08/21/19 24 08/21/2023 COMPL ETE BLOOD COUNT W/DIF F absolute basophil count 0.03 10_3/ uL 0.0-0. 2 normal Not Available [address] [place], [address] 08/21/2023 22:28:59 08/21/19 24 08/21/2023 COMPR EHENS JES METAB OLIC PANEL calcium 9.8 mg/dL 8.5-10 .1 normal Not Available [address] [place], [address] 08/21/2023 22:58:02 08/21/19 24 08/21/2023 COMPR EHENS JES METAB OLIC PANEL glucose 207 mg/dL 74-106 high Not Available Kalpesh casillas [address] [place], [address] 08/21/2023 22:58:02 08/21/19 24 08/21/2023 COMPR EHENS JES METAB OLIC PANEL BUN 17 mg/dL 7-18 normal Not Available Kalpesh casillas [address] [place], [address] 08/21/2023 22:58:02 08/21/19 24 08/21/2023 COMPR EHENS JES METAB OLIC PANEL creatinine 0.9 mg/dL 0.55-1 .02 normal Not Available [address] [place], [address] 08/21/2023 22:58:02 08/21/19 24 08/21/2023 COMPR EHENS JES METAB OLIC PANEL estimated GFR 78.37 mL/min /1.73m 2 The eGFR is calcu lated from a serum creat inine using the CKD-E PI 2020 equat ion. Other varia bles requi red for the equat ion are gende r and age; this equat ion does not inclu de a race coeff icien t. This equat ion has simil ar overa ll perfo rmanc e to previ ous equat ions excep t value s may diffe r, in parti cular , in patie nts with highe r value s of eGFR and young er-ag ed adult s. Not Available [address] [place], [address] 08/21/2023 22:58:02 08/21/19 24 08/21/2023 COMPR EHENS JES METAB OLIC PANEL total protein 8.1 g/dL 6.4-8. 2 normal Not Available [address] [place], [address] 08/21/2023 22:58:02 08/21/19 24 08/21/2023 COMPR EHENS JES METAB OLIC PANEL albumin 4.0 g/dL 3.4-5. 0 normal Not Available [address] [place], [address] 08/21/2023 22:58:02 08/21/19 24 08/21/2023 COMPR EHENS JES METAB OLIC PANEL bilirubin, total 0.7 mg/dL 0.2-1. 0 normal Not Available [address] [place], [address] 08/21/2023 22:58:02 08/21/19 24 08/21/2023 COMPR EHENS JES METAB OLIC PANEL alk phos 104 U/L 46-116 normal Not Available [address] [place], [address] 08/21/2023 22:58:02 08/21/19 24 08/21/2023 COMPR EHENS JES METAB OLIC PANEL sodium 137 mmol/ L 136-14 5 normal Not Available [address] [place], [address] 08/21/2023 22:58:02 08/21/19 24 08/21/2023 COMPR EHENS JES METAB OLIC PANEL potassium 4.3 mmol/ L 3.5-5. 1 normal Not Available [address] [place], [address] 08/21/2023 22:58:02 08/21/19 24 08/21/2023 COMPR EHENS JES METAB OLIC PANEL chloride 100 mmol/ L 98-107 normal Not Available [address] [place], [address] 08/21/2023 22:58:02 08/21/19 24 08/21/2023 COMPR EHENS JES METAB OLIC PANEL CO2 30.1 mmol/ L 21.0-3 2.0 normal Not Available [address] [place], [address] 08/21/2023 22:58:02 08/21/19 24 08/21/2023 COMPR EHENS JES METAB OLIC PANEL anion gap 6.9 mmol/ L 3-11 normal Not Available [address] [place], [address] 08/21/2023 22:58:02 08/21/19 24 08/21/2023 COMPR EHENS JES METAB OLIC PANEL AST 32 U/L 15-37 normal Not Available Kalpesh [address] [place], [address] 08/21/2023 22:58:02 08/21/19 24 08/21/2023 COMPR EHENS JES METAB OLIC PANEL ALT 47 U/L 14-59 normal Not Available Kalpesh casillas [address] [place], [address] 08/21/2023 22:58:02 08/21/1908/21/2023 ETHYL ALCOH OL ethyl alcohol < 3.0 mg/dL <10 Resul t verif ied by dilut ion and repea t dilcia sis ETOH Refer ence Range = <10 mg/dL Legal Limit of Intox icati on is 80 mg/dL This test is inten ded only for Medic al purpo ses. Divid e resul t by 1000 to conve rt to %(w/v ) Not Available [address] [place], [address] 08/21/2023 22:58:03 08/21/19 24 08/21/2023 MAGNE SIUM magnesium 2.1 mg/dL 1.8-2. 4 normal Not Available [address] [place], [address] 08/21/2023 22:58:04 08/21/19 24 08/21/2023 CARDI AC TROPO KANWAL I cardiac troponin I < 50 NG/L < or =60 Not Available [address] [place], [address] 08/21/2023 22:58:05 08/22/19 24 08/22/2023 URINE DRUG SCREE N ([facility] ) methadone Negati ve negati ve Not Available [address] [place], [address] 08/22/2023 00:55:06 08/22/19 24 08/22/2023 URINE DRUG SCREE N ([facility] ) benzodiazepi yoselyn Negati ve negati ve Benzo diaze pines are exten sivel y metab olize d and the paren t compo und may not be detec tarsha in urine . If clini elizabeth suspi cion is high, pleas e notif y Lab for send- out testi ng. Not Available [address] [place], [address] 08/22/2023 00:55:06 08/22/19 24 08/22/2023 URINE DRUG SCREE N ([facility] ) cocaine Negati ve negati ve Not Available [address] [place], [address] 08/22/2023 00:55:06 08/22/19 24 08/22/2023 URINE DRUG SCREE N ([facility] ) amphetamines Negati ve negati ve Not Available [address] [place], [address] 08/22/2023 00:55:06 08/22/19 24 08/22/2023 URINE DRUG SCREE N ([facility] ) tetrahydroca nnabinol Positi ve negati ve abnormal Not Available [address] [place], [address] 08/22/2023 00:55:06 08/22/19 24 08/22/2023 URINE DRUG SCREE N ([facility] ) opiates Negati ve negati ve Not Available [address] [place], [address] 08/22/2023 00:55:06 08/22/19 24 08/22/2023 URINE DRUG SCREE N ([facility] ) barbiturates Negati ve negati ve Not Available [address] [place], [address] 08/22/2023 00:55:06 08/22/19 24 08/22/2023 URINE DRUG SCREE N ([facility] ) tricyclic antidepressa nts Negati ve negati ve T his test is not suita ble for legal purpo ses Cutof f komal ntrat ions for each drug class are: MTD 300 ng/mL BZO 200 ng/mL KEYSHAWN 300 ng/mL * AMP 1000 ng/mL * THC 50 ng/mL OPI 300 ng/mL BAR 200 ng/mL TCA 1000 ng/mL *Kenny mmend ed scree bella cutof f komal ntrat ions by the subst ance abuse and menta l healt h servi alec admin istra tion. This test provi yulisa preli minar y resul ts. A more speci fic alter arabella metho d such as GC/MS is the prefe rred confi rmato ry metho d. Notif y the Labor atory withi n 72 hours of repor t date if you mike e confi rmati on. Presc ribed medic ation s may give posit jes resul ts and must be consi dered prior to inter preta tion of these resul ts. Not Available [address] [place], [address] 08/22/2023 00:55:06 12/07/19 24 12/07/2023 COMPL ETE BLOOD COUNT W/DIF F WBC 5.74 10_3/ uL 4.4-10 .8 normal Not Available [address] [place], [address] 12/07/2023 13:34:31 12/07/19 24 12/07/2023 COMPL ETE BLOOD COUNT W/DIF F RBC 4.11 10_6/ uL 3.93-5 .22 normal Not Available [address] [place], [address] 12/07/2023 13:34:31 12/07/19 24 12/07/2023 COMPL ETE BLOOD COUNT W/DIF F HGB 12.7 g/dL 11.2-1 5.7 normal Not Available [address] [place], [address] 12/07/2023 13:34:31 12/07/19 24 12/07/2023 COMPL ETE BLOOD COUNT W/DIF F HCT 37.6 % 36.0-4 6.0 normal Not Available [address] [place], [address] 12/07/2023 13:34:31 12/07/19 24 12/07/2023 COMPL ETE BLOOD COUNT W/DIF F MCV 92 fL 80-95 normal Not Available [address] [place], [address] 12/07/2023 13:34:31 12/07/19 24 12/07/2023 COMPL ETE BLOOD COUNT W/DIF F MCH 30.9 pg 27.0-3 3.0 normal Not Available [address] [place], [address] 12/07/2023 13:34:31 12/07/19 24 12/07/2023 COMPL ETE BLOOD COUNT W/DIF F MCHC 33.8 % 32.0-3 6.0 normal Not Available [address] [place], [address] 12/07/2023 13:34:31 12/07/19 24 12/07/2023 COMPL ETE BLOOD COUNT W/DIF F RDW 12.2 % 11.7-1 4.6 normal Not Available [address] [place], [address] 12/07/2023 13:34:31 12/07/19 24 12/07/2023 COMPL ETE BLOOD COUNT W/DIF F platelet count 178 10_3/ uL 130-40 0 normal Not Available [address] [place], [address] 12/07/2023 13:34:31 12/07/19 24 12/07/2023 COMPL ETE BLOOD COUNT W/DIF F MPV 9.6 fL 8.0-11 .0 normal Not Available [address] [place], [address] 12/07/2023 13:34:31 12/07/19 24 12/07/2023 COMPL ETE BLOOD COUNT W/DIF F neutrophils % 55.2 % Not Available [address] [place], [address] 12/07/2023 13:34:31 12/07/19 24 12/07/2023 COMPL ETE BLOOD COUNT W/DIF F lymphocytes % 34.0 % Not Available [address] [place], [address] 12/07/2023 13:34:31 12/07/19 24 12/07/2023 COMPL ETE BLOOD COUNT W/DIF F monocytes % 8.9 % Not Available [address] [place], [address] 12/07/2023 13:34:31 12/07/19 24 12/07/2023 COMPL ETE BLOOD COUNT W/DIF F eosinophils % 0.9 % Not Available [address] [place], [address] 12/07/2023 13:34:31 12/07/19 24 12/07/2023 COMPL ETE BLOOD COUNT W/DIF F basophils % 0.7 % Not Available [address] [place], [address] 12/07/2023 13:34:31 12/07/19 24 12/07/2023 COMPL ETE BLOOD COUNT W/DIF F immature grans % 0.3 % Not Available [address] [place], [address] 12/07/2023 13:34:31 12/07/19 24 12/07/2023 COMPL ETE BLOOD COUNT W/DIF F nucleated RBC 0.0 % 0.0-0. 3 normal Not Available [address] [place], [address] 12/07/2023 13:34:31 12/07/19 24 12/07/2023 COMPL ETE BLOOD COUNT W/DIF F absolute neutrophil count 3.17 10_3/ uL 1.2-6. 7 normal Not Available [address] [place], [address] 12/07/2023 13:34:31 12/07/19 24 12/07/2023 COMPL ETE BLOOD COUNT W/DIF F absolute lymphocyte count 1.95 10_3/ uL 1.2-3. 4 normal Not Available [address] [place], [address] 12/07/2023 13:34:31 12/07/19 24 12/07/2023 COMPL ETE BLOOD COUNT W/DIF F absolute monocyte count 0.51 10_3/ uL 0.1-0. 8 normal Not Available [address] [place], [address] 12/07/2023 13:34:31 12/07/19 24 12/07/2023 COMPL ETE BLOOD COUNT W/DIF F absolute eosinophil count 0.05 10_3/ uL 0.0-0. 7 normal Not Available [address] [place], [address] 12/07/2023 13:34:31 12/07/19 24 12/07/2023 COMPL ETE BLOOD COUNT W/DIF F absolute basophil count 0.04 10_3/ uL 0.0-0. 2 normal Not Available [address] [place], [address] 12/07/2023 13:34:31 12/07/19 24 12/07/2023 COMPR EHENS JES METAB OLIC PANEL calcium 9.1 mg/dL 8.5-10 .1 normal Not Available [address] [place], [address] 12/07/2023 13:53:40 12/07/19 24 12/07/2023 COMPR EHENS JES METAB OLIC PANEL glucose 154 mg/dL 74-106 high Not Available Kalpesh [address] [place], [address] 12/07/2023 13:53:40 12/07/19 24 12/07/2023 COMPR EHENS JES METAB OLIC PANEL BUN 21 mg/dL 7-18 high Not Available Kalpesh casillas [address] [place], [address] 12/07/2023 13:53:40 12/07/19 24 12/07/2023 COMPR EHENS JES METAB OLIC PANEL creatinine 0.9 mg/dL 0.55-1 .02 normal Not Available [address] [place], [address] 12/07/2023 13:53:40 12/07/19 24 12/07/2023 COMPR EHENS JES METAB OLIC PANEL estimated GFR 78.37 mL/min /1.73m 2 The eGFR is calcu lated from a serum creat inine using the CKD-E PI 2020 equat ion. Other varia bles requi red for the equat ion are gende r and age; this equat ion does not inclu de a race coeff icien t. This equat ion has simil ar overa ll perfo rmanc e to previ ous equat ions excep t value s may diffe r, in parti cular , in patie nts with highe r value s of eGFR and young er-ag ed adult s. Not Available [address] [place], [address] 12/07/2023 13:53:40 12/07/19 24 12/07/2023 COMPR EHENS JES METAB OLIC PANEL total protein 7.1 g/dL 6.4-8. 2 normal Not Available [address] [place], [address] 12/07/2023 13:53:40 12/07/19 24 12/07/2023 COMPR EHENS JES METAB OLIC PANEL albumin 3.5 g/dL 3.4-5. 0 normal Not Available [address] [place], [address] 12/07/2023 13:53:40 12/07/19 24 12/07/2023 COMPR EHENS JES METAB OLIC PANEL bilirubin, total 0.6 mg/dL 0.2-1. 0 normal Not Available [address] [place], [address] 12/07/2023 13:53:40 12/07/19 24 12/07/2023 COMPR EHENS JES METAB OLIC PANEL alk phos 106 U/L 46-116 normal Not Available [address] [place], [address] 12/07/2023 13:53:40 12/07/19 24 12/07/2023 COMPR EHENS JES METAB OLIC PANEL sodium 139 mmol/ L 136-14 5 normal Not Available [address] [place], [address] 12/07/2023 13:53:40 12/07/19 24 12/07/2023 COMPR EHENS JES METAB OLIC PANEL potassium 4.4 mmol/ L 3.5-5. 1 normal Not Available [address] [place], [address] 12/07/2023 13:53:40 12/07/19 24 12/07/2023 COMPR EHENS JES METAB OLIC PANEL chloride 104 mmol/ L 98-107 normal Not Available [address] [place], [address] 12/07/2023 13:53:40 12/07/19 24 12/07/2023 COMPR EHENS JES METAB OLIC PANEL CO2 29.8 mmol/ L 21.0-3 2.0 normal Not Available [address] [place], [address] 12/07/2023 13:53:40 12/07/19 24 12/07/2023 COMPR EHENS JES METAB OLIC PANEL anion gap 5.2 mmol/ L 3-11 normal Not Available [address] [place], [address] 12/07/2023 13:53:40 12/07/19 24 12/07/2023 COMPR EHENS JES METAB OLIC PANEL AST 39 U/L 15-37 high Not Available [address] [place], [address] 12/07/2023 13:53:40 12/07/19 24 12/07/2023 COMPR EHENS JES METAB OLIC PANEL ALT 48 U/L 14-59 normal Not Available Kalpesh casillas [address] [place], [address] 12/07/2023 13:53:40 12/07/19 24 12/07/2023 TROPO KANWAL I troponin I < 50 NG/L < or =60 Not Available [address] [place], [address] 12/07/2023 13:53:40 12/07/19 24 12/07/2023 PROTH ROMBI N TIME prothrombin time 10.9 sec 9.1-11 .1 normal Not Available [address] [place], [address] 12/07/2023 14:14:40 12/07/19 24 12/07/2023 PROTH ROMBI N TIME INR 1.1 0.9-1. 1 normal Recom celia d INR thera peuti c range s for orall y admin ister ed drugs are as follo ws: -[place] Inten sity 2.0 to 3.0 -High er Inten sity 3.0 to 4.5 Not Available [address] [place], [address] 12/07/2023 14:14:40 12/07/19 24 12/07/2023 PTT ACTIV ATED PTT activated 23.4 sec 23.6-3 2.8 low Hepar in Thera peuti c Range for PTT = 52-84 secon ds New Hepar in Thera peuti c Range 09/08 Not Available [address] [place], [address] 12/07/2023 14:14:41 12/07/19 24 12/07/2023 TROPO KANWAL I troponin I < 50 NG/L < or =60 Not Available [address] [place], [address] 12/07/2023 16:25:17 02/15/20 24 02/15/2024 COMPL ETE BLOOD COUNT W/DIF F WBC 4.55 10_3/ uL 4.4-10 .8 normal Not Available [address] [place], [address] 02/15/2024 10:39:22 02/15/20 24 02/15/2024 COMPL ETE BLOOD COUNT W/DIF F RBC 4.67 10_6/ uL 3.93-5 .22 normal Not Available [address] [place], [address] 02/15/2024 10:39:22 02/15/20 24 02/15/2024 COMPL ETE BLOOD COUNT W/DIF F HGB 14.3 g/dL 11.2-1 5.7 normal Not Available [address] [place], [address] 02/15/2024 10:39:22 02/15/20 24 02/15/2024 COMPL ETE BLOOD COUNT W/DIF F HCT 42.4 % 36.0-4 6.0 normal Not Available [address] [place], [address] 02/15/2024 10:39:22 02/15/20 24 02/15/2024 COMPL ETE BLOOD COUNT W/DIF F MCV 91 fL 80-95 normal Not Available [address] [place], [address] 02/15/2024 10:39:22 02/15/20 24 02/15/2024 COMPL ETE BLOOD COUNT W/DIF F MCH 30.6 pg 27.0-3 3.0 normal Not Available [address] [place], [address] 02/15/2024 10:39:22 02/15/20 24 02/15/2024 COMPL ETE BLOOD COUNT W/DIF F MCHC 33.7 % 32.0-3 6.0 normal Not Available [address] [place], [address] 02/15/2024 10:39:22 02/15/20 24 02/15/2024 COMPL ETE BLOOD COUNT W/DIF F RDW 12.3 % 11.7-1 4.6 normal Not Available [address] [place], [address] 02/15/2024 10:39:22 02/15/20 24 02/15/2024 COMPL ETE BLOOD COUNT W/DIF F platelet count 189 10_3/ uL 130-40 0 normal Not Available [address] [place], [address] 02/15/2024 10:39:22 02/15/20 24 02/15/2024 COMPL ETE BLOOD COUNT W/DIF F MPV 9.8 fL 8.0-11 .0 normal Not Available [address] [place], [address] 02/15/2024 10:39:22 02/15/20 24 02/15/2024 COMPL ETE BLOOD COUNT W/DIF F neutrophils % 56.9 % Not Available [address] [place], [address] 02/15/2024 10:39:22 02/15/20 24 02/15/2024 COMPL ETE BLOOD COUNT W/DIF F lymphocytes % 33.2 % Not Available [address] [place], [address] 02/15/2024 10:39:22 02/15/20 24 02/15/2024 COMPL ETE BLOOD COUNT W/DIF F monocytes % 8.1 % Not Available [address] [place], [address] 02/15/2024 10:39:22 02/15/20 24 02/15/2024 COMPL ETE BLOOD COUNT W/DIF F eosinophils % 0.9 % Not Available [address] [place], [address] 02/15/2024 10:39:22 02/15/20 24 02/15/2024 COMPL ETE BLOOD COUNT W/DIF F basophils % 0.7 % Not Available [address] [place], [address] 02/15/2024 10:39:22 02/15/20 24 02/15/2024 COMPL ETE BLOOD COUNT W/DIF F immature grans % 0.2 % Not Available [address] [place], [address] 02/15/2024 10:39:22 02/15/20 24 02/15/2024 COMPL ETE BLOOD COUNT W/DIF F nucleated RBC 0.0 % 0.0-0. 3 normal Not Available [address] [place], [address] 02/15/2024 10:39:22 02/15/20 24 02/15/2024 COMPL ETE BLOOD COUNT W/DIF F absolute neutrophil count 2.59 10_3/ uL 1.2-6. 7 normal Not Available [address] [place], [address] 02/15/2024 10:39:22 02/15/20 24 02/15/2024 COMPL ETE BLOOD COUNT W/DIF F absolute lymphocyte count 1.51 10_3/ uL 1.2-3. 4 normal Not Available [address] [place], [address] 02/15/2024 10:39:22 02/15/20 24 02/15/2024 COMPL ETE BLOOD COUNT W/DIF F absolute monocyte count 0.37 10_3/ uL 0.1-0. 8 normal Not Available [address] [place], [address] 02/15/2024 10:39:22 02/15/20 24 02/15/2024 COMPL ETE BLOOD COUNT W/DIF F absolute eosinophil count 0.04 10_3/ uL 0.0-0. 7 normal Not Available [address] [place], [address] 02/15/2024 10:39:22 02/15/20 24 02/15/2024 COMPL ETE BLOOD COUNT W/DIF F absolute basophil count 0.03 10_3/ uL 0.0-0. 2 normal Not Available [address] [place], [address] 02/15/2024 10:39:22 02/15/20 24 02/15/2024 ESR ESR 12 mm/HR 0-20 normal Not Available [address] [place], [address] 02/15/2024 10:53:16 02/15/20 24 02/15/2024 D-DIM ER D-dimer 886 NG/ml feu <500 high *Lite ratur e suppo rts the exclu marysol of DVT and/o r PE with a resul t less than 500 ng/ml FEU with this metho d.* Not Available [address] [place], [address] 02/15/2024 11:17:25 02/15/20 24 02/15/2024 COMPR EHENS JES METAB OLIC PANEL calcium 9.4 mg/dL 8.5-10 .1 normal Not Available [address] [place], [address] 02/15/2024 11:28:26 02/15/20 24 02/15/2024 COMPR EHENS JES METAB OLIC PANEL glucose 339 mg/dL 74-106 high Not Available Kalpesh [address] [place], [address] 02/15/2024 11:28:26 02/15/20 24 02/15/2024 COMPR EHENS JES METAB OLIC PANEL BUN 15 mg/dL 7-18 normal Not Available Kalpesh [address] [facility] [place], [address] 02/15/2024 11:28:26 02/15/20 24 02/15/2024 COMPR EHENS JES METAB OLIC PANEL creatinine 0.9 mg/dL 0.55-1 .02 normal Not Available [address] [place], [address] 02/15/2024 11:28:26 02/15/20 24 02/15/2024 COMPR EHENS JES METAB OLIC PANEL estimated GFR 78.37 mL/min /1.73m 2 The eGFR is calcu lated from a serum creat inine using the CKD-E PI 2020 equat ion. Other varia bles requi red for the equat ion are gende r and age; this equat ion does not inclu de a race coeff icien t. This equat ion has simil ar overa ll perfo rmanc e to previ ous equat ions excep t value s may diffe r, in parti cular , in patie nts with highe r value s of eGFR and young er-ag ed adult s. Not Available [address] [place], [address] 02/15/2024 11:28:26 02/15/20 24 02/15/2024 COMPR EHENS JES METAB OLIC PANEL total protein 8.0 g/dL 6.4-8. 2 normal Not Available [address] [place], [address] 02/15/2024 11:28:26 02/15/20 24 02/15/2024 COMPR EHENS JES METAB OLIC PANEL albumin 3.9 g/dL 3.4-5. 0 normal Not Available [address] [place], [address] 02/15/2024 11:28:26 02/15/20 24 02/15/2024 COMPR EHENS JES METAB OLIC PANEL bilirubin, total 0.77 mg/dL 0.2-1. 0 normal Not Available [address] [place], [address] 02/15/2024 11:28:26 02/15/20 24 02/15/2024 COMPR EHENS JES METAB OLIC PANEL alk phos 161 U/L 46-116 high Not Available [address] [place], [address] 02/15/2024 11:28:26 02/15/20 24 02/15/2024 COMPR EHENS JES METAB OLIC PANEL sodium 136 mmol/ L 136-14 5 normal Not Available [address] [place], [address] 02/15/2024 11:28:26 02/15/20 24 02/15/2024 COMPR EHENS JES METAB OLIC PANEL potassium 4.3 mmol/ L 3.5-5. 1 normal Not Available [address] [place], [address] 02/15/2024 11:28:26 02/15/20 24 02/15/2024 COMPR EHENS JES METAB OLIC PANEL chloride 99 mmol/ L 98-107 normal Not Available [address] [place], [address] 02/15/2024 11:28:26 02/15/20 24 02/15/2024 COMPR EHENS JES METAB OLIC PANEL CO2 30.9 mmol/ L 21.0-3 2.0 normal Not Available [address] [place], [address] 02/15/2024 11:28:26 02/15/20 24 02/15/2024 COMPR EHENS JES METAB OLIC PANEL anion gap 6.1 mmol/ L 3-11 normal Not Available [address] [place], [address] 02/15/2024 11:28:26 02/15/20 24 02/15/2024 COMPR EHENS JES METAB OLIC PANEL AST 36 U/L 15-37 normal Not Available [address] [place], [address] 02/15/2024 11:28:26 02/15/20 24 02/15/2024 COMPR EHENS JES METAB OLIC PANEL ALT 46 U/L 14-59 normal Not Available [address] [place], [address] 02/15/2024 11:28:26 02/15/20 24 02/15/2024 C-KATIE CTIVE PROTE IN C-reactive protein < 0.50 mg/dL <or=0. 5 Not Available [address] [place], [address] 02/15/2024 11:24:26 02/15/20 24 02/15/2024 C-KATIE CTIVE PROTE IN C-reactive protein < 0.50 mg/dL <or=0. 5 Not Available [address] [facility] [place], [address] 02/15/2024 11:28:27 07/05/20 23 07/05/2023 elect sola bergeron am EKG PATIMARIANNA T NAME: Kailey Hernandez UNIT #: [id number] ORDERI NG PROVID ER: Ilda Angeles M.D. ACCOUN T #: [id number] PRIMAR Y CARE PROVID ER: JENNIFER ON,CEASAR FRANCO DATE/T ARELY OF SER VICE: 1146 : 1974 PERFOR OSCAR LOCATI ON: ER ------ ------ --- APPROV ED REPORT ------ ------ -- Exam: Restin g ECG Reason for Exam: syncop e aLly sebastian Locati on: E HR:74 bpm ECG Measur ements Heart Rate 74 AXIS AK 147 P 73 QRSd 106 QRS -66 QT 393 T 66 QTc 435 Conclu marysol Sinus rhythm ..., V-rate 60- 99 Approp riate interv als. No ST segmen t or T wave abnorm alitie s to sugges t occlus jes LA ------ ------ ------ ------ ------ ------ ------ ------ ------ ------ ------ ------ ------ ------ ------ ------ ---- ------ - E-Sign Date: E-Sign Time: 1159 [id number] [facility] [address] [place], [address] 07/06/2023 16:20:18 07/05/2007/05/2023 mary sebastian Name: Kailey Hernandez Unit #: [id number] Loc: ER [facility] er: Franko t #: [id number] Status : REG ER Primar y Care Provid er: Ceasar Turner Date of Exam: Sex: F : 1974 Age: 48 Exam(s ) PROCED URE INFORM ATION: Exam: CTA Head With Contra st, Arteri ograph y Exam date and time: 023 11:54 AM Age: 48 years old Clinic al indica tion: Syncop e and collap se; Laly t HX: Syncop e, 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 Exam focuse d on the arteri es. 3D render ing (Not superv ised by radiol ogist) : MIP and/or 3D recons tructe d images were create d by the techno logist . COMPAR LIONEL: No releva nt prior studie s availa ble. 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 Right middle cerebr al artery : No occlus ion or signif icant stenos is. No aneury sm. Right anteri or cerebr al artery : Absent right A1 segmen t which can be a normal varian t. 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 Left middle cerebr al artery : No occlus ion or signif icant stenos is. No aneury sm. Left anteri or cerebr al artery : No occlus ion or signif icant stenos is. No aneury sm. 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 No aneury sm. Left verteb ral artery : No occlus ion or signif icant stenos is. No aneury sm. Basila r artery : No occlus ion or signif icant stenos is. No aneury sm. Right job printer ior cerebr al artery : No occlus ion or signif icant stenos is. No aneury sm. Left job printer ior cerebr al artery : No occlus ion or signif icant stenos is. No aneury sm. Veins: Venous contam inatio n withou t venous thromb us. Brain: Mild diffus e involu tional change s in the brain are compat ible with age. No acute hemorr isabella or acute territ orial infarc t. Symmet thelma physio logic basal gangli ar calcif icatio ns are presen t bilate rally. No enhanc ing lesion s in the brain. Cerebr al ventri cles: No ventri culome merced. Bones/ joints : Unrema rkable . No acute fractu re. Soft tissue s: Unrema rkable . IMPRES MARYSOL: 1. No acute intrac ranial abnorm ality. 2. No large vessel occlus ion at the [place]. 3. Absent right A1 segmen t which can be a normal varian t. 4. No orbita l lesion . 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 Exam focuse d on the cervic al segmen ts of the vascul ature. 3D render ing (Not superv ised by radiol ogist) : MIP and/or 3D recons tructe d images were create d by the techno logist . COMPAR LIONEL: CT CHEST PE CTA 2021 9:09 PM FINDIN GS: Right common caroti d artery : No stenos is. No dissec tion or occlus ion. Right electrical engineering intern al caroti d artery : No stenos is of the extrac ranial segmen t. No dissec tion or occlus ion. Right driver recruiter al caroti d artery : No occlus ion or stenos is of the origin . Left common caroti d artery : No stenos is. No dissec tion or occlus ion. Left electrical engineering intern al caroti d artery : No stenos is of the extrac ranial segmen t. No dissec tion or occlus ion. Left driver recruiter al caroti d artery : No occlus ion or stenos is of the origin . Right verteb ral artery : No stenos is. No dissec tion or occlus ion. Left verteb ral artery : No stenos is. No dissec tion or occlus ion. Thyroi d: Promin ent thyroi d withou t focal lesion s. Lymph nodes: No lympha denopa thy. Soft tissue s: Normal . No signif icant soft tissue swelli ng. Bones/ joints : Degene rative change s in the spine withou t acute fractu re. Revers al of the lordos is can be seen in spasm. Lungs: Grossl y clear lungs. Esopha radu: Patulo us esopha radu. IMPRES MARYSOL: No signif icant caroti d or verteb ral artery stenos is by NASCET criter ia. REFERE NCES: NASCET CRITER IA. The degree of stenos is in the cervic al segmen t of the electrical engineering intern al caroti d artery is based on NASCET criter ia. Normal is no stenos is. Mild is less than 50% stenos is. Modera te is 50-69% stenos is. Severe is 70% to 99% stenos is. Total occlus ion is no detect able patent lumen. Dictat ed and Authen ticate d by: Debby Albert i, MD. Orderi ng:Curry gee MD Access ion#=[id number] Ordere d By: CC: ------ ------ ------ ------ ------ ------ ------ ------ ------ ------ ------ ------ ---- Dictat ed By: Report s vrad [id number] Transc ribed By: Esther Nichols 1154 This is privil eged, confid ential inform ation intend ed only for the provid er named. Any use or distri bution by any person other than this provid er is strict ly prohib ited. If you receiv e this report in error, please notify us immedi ately at and return the origin al report to us at the addres s above. Thank- you. amarjit [facility] [address] [place], [address] 07/06/2023 16:20:17 07/05/20 23 07/05/2023 vrad repor t Patimarianna t Name: Kailey Hernandez Unit #: [id number] Loc: ER Orderi ng Provid er: Accoun t #: [id number] Status : REG ER Primar y Care Provid er: Jennifer on,Pat joan Date of Exam: Sex: F : 1974 Age: 48 Exam(s ) PROCED URE INFORM ATION: Exam: CTA Chest With Contra st Exam date and time: 023 12:57 PM Age: 48 years old Clinic al indica tion: Abnorm al findin gs; Abnorm al diagno stic tests; Elevat ed d-dime r; Patien t HX: Syncop e, elevat ed d dimer TECHNI QUE: Imagin g protoc ol: Comput ed tomogr aphic angiog ena of the chest with contra st. Exam focuse d on the arteri es. 3D render ing (Not superv ised by radiol ogist) : MIP and/or 3D recons tructe d images were create d by the techno logist . COMPAR LIONEL: CT CHEST PE CTA 2021 9:09 PM FINDIN GS: Pulmon yamilet arteri es: No acute pulmon yamilet emboli sm. Poor evalua tion of the subseg mental pulmon yamilet arteri es due to mild motion limite d enhanc ement. Aorta: No aortic aneury sm or dissec tion. Mild athero sclero tic change s of the abdomi nal aorta. Lungs: Depend ent likely atelec tatic change s in the lungs withou t dense consol idatio n. Pleura l spaces : Unrema rkable . No pneumo thorax . No pleura l effusi on. Heart: The heart is not enlarg ed and I see no signif icant perica rdial or medias tinal fluid. [place] ry arteri es: No signif icant [place] ry artery calcif icatio ns. Medias tinal space: Patulo us esopha radu. Lymph nodes: Unrema rkable . No enlarg ed lymph nodes. Liver: Low densit y liver sugges ting fatty infilt ration withou t focal lesion s or ductal dilita tion. Consid er non-em ergent follow -up with LFT values . Bones/ joints : No displa ramiro fractu re line. Soft tissue s: No signif icant subcut aneous hemato ma. IMPRES MARYSOL: No acute abnorm ality. Other findin gs. Dictat ed and Authen ticate d by: Debby Albert i, MD. Orderi ng:Curry OCJ Karthik gee MD Access ion#=[id number] Joel to By: CC: ------ ------ ------ ------ ------ ------ ------ ------ ------ ------ ------ ------ ---- Dictat ed By: Report s vrad [id number] Transc ribed By: Di Merge 1257 This is privil eged, confid ential inform ation intend ed only for the provid er named. Any use or distri bution by any person other than this provid er is strict ly prohib ited. If you receiv e this report in error, please notify us immedi ately at and return the origin al report to us at the addres s above. Thank- you. am[facility]jit [facility] [address], [place], [address] 07/06/2023 16:20:19 07/05/20 23 07/05/2023 ED visit note ED Visit Note LALY Sebastian NAME: Kailey Hernandez UNIT #: [id number] ADMITT ING PROVID ER: Ilda Angeles M.D. ACCOUN T #: [id number] PRIMAR Y CARE PROVID ER: CEASAR TURNER DATE OF ADMIT: : 1974 Discha rge Plan Dispos ition Condit ion: Stable Discha rge Detail s Chief Compla int: AMS/LO C Clinic al Impres marysol: Syncop e Primar y Care Provid er: Ceasar Turner ED Provid er: Ilda Angeles Home Meds and New Rx's Prescr iption s: No Action albute rol sulfat e 2.5 mg /3 mL (0.083 %) soluti on for nebuli zation 2.5 mg inhala tion Q8H PRN (Reaso n: Shortn ess Of Breath ) (DME) Ketost ix Strip See Rx Instru ctions .Route Rx Instru ctions : As direct ed glucag on 1 mg kit 1 mg subcut PRN PRN (Reaso n: Hypogl ycemia ) aspiri n [Child aarti's Aspiri n] 81 mg tablet ,chewa ble 81 mg PO DAILY albute rol sulfat e [ProAi r HFA] 90 mcg/ac tuatio n HFA aeroso l inhale r 2 puff inhala tion Q6H PRN (Reaso n: Shortn ess Of Breath ) metopr olol succin ate 50 mg tablet extend ed releas e 24 hr 50 mg PO DAILY Patien t Commen ts: Take 1 tablet by mouth once a day cholec alcife rol (vitam in D3) 25 mcg (1,000 unit) tablet 25 mcg PO DAILY Patien t Commen ts: TAKE ONE-FERNANDEZ LF TABLET BY MOUTH TWICE A DAY atorva statin 80 mg tablet 80 mg PO DAILY Patien t Commen ts: Take 1 tablet by mouth every evenin g insuli n glargi ne [Basag lar KwikPe n U-100 Insuli n] 100 unit/m L (3 mL) insuli n pen 20 unit SUBCUT DAILY Patien t Commen ts: INJECT 22 UNITS UNDER THE SKIN EVERY MORNIN G insuli n aspart U-100 [Novol og FlexPe n U-100 Insuli n] 100 unit/m L (3 mL) insuli n pen See Rx Instru ctions .ROUTE .COMPL EX Patien t Commen ts: INJECT BASED ON CARBS AT A RATION OF 1:10 GIVE AND CORREC T FOR BG gt;150 BASED ON ISF 1:25 Rx Instru ctions : per slidin g before meals. nitrog lyceri n 0.4 mg Tablet , Sublin gual 0.4 mg sublin gual PRN PRN (Reaso n: Chest Pain) magnes ium oxide 400 mg (241.3 mg magnes ium) tablet 400 mg PO DAILY Qty: 14 0RF Discha rge Instru ctions Instru ctions : Syncop e (ED) Additi onal Instru ctions : Keep your appoin tment with your cardio logist tomorr ow- THIS IS VERY IMPORT ANT Return to the emerge ncy depart ment immedi ately if you would like to to stay in the hospit al for observ ation, especi ally if you have any new or worsen ing sympto ms includ ing chest pain, diffic ultly breath ing, feelin g like you are going to pass out, actual ly passin g out, numbne ss, weakne ss, headac he, vomiti ng, or if you have any other concer ns. Medica l Decisi on Making 48yo F with T1DM, CKD, hx inferi or STEMI in January of 2022 s/p 2 YULISA to [facility]CA presen ting via EMS for unresp onsive episod e. Histor y from patien t, EMS, and signif caty other at bedsid e. Today while si tting she became unresp onsive , sign brianna other noted this and was unable to rouse her and so called EMS. On their arriva l she was respon sive to noxiou s stimul i and had normal vital signs with blood glucos e of 284. Mental status report edly improv ed rapidl y over the course of transp ort, became progre ssivel y more alert. She does not recall any passin g out or any preced ing sympto ms. Never had any chest pain, lighth eadedn ess, or diffic ultly breath ing, though she does report some dyspne a on exerti on over the past two weeks which is new. No clear precip itatin g factor for event today. No abnorm al moveme nts to sugges t seizur e. [facility] record s review ed includ ing cardio logy clinic visits : Stents placed in January of 2022, Nuclea r stress test in March of 2022 was negati ve, syncop al episod e in 2021 with subseq uent 30-day cardia c monito r which showed no dysrhy thmias . Vital signs reassu ring on arriva l, unrema rkable physic al and neurol ogic exam aside from slight ( 0.5mm) pupill yamilet asymme try of unclea r signif icance . Lungs clear, no eviden ce of volume overlo ad, no indica tion of DVT. Broad workup workup for altere d mental status /synco pe initia tarsha. -EKG NSR, approp riate interv als, no ST segmen t or T wave abnorm alitie s to sugges t occlus jes LA. Tropon in negati ve x 2 -CT head with no intrac ranial hemmor aghe on my view, radiol ogy read below with no signif icant findin gs on CTA head and neck. Low suspic ion for acute neurol ogic event, CVA, etc, given histor y and overal l benign neuro exam. Slight pupill yamilet asymme try of unclea r signif icance , would not puruse furthe r in the ED given otherw ise reassu ring exam and imagin g. Advise d to follow up with PCP -Labs review ed as below, CBC reassu ring with no leukoc ytosis or anemia . CMP with no action able abnorm alitie s, no hypogl ycemia . Ammoni a negati ve. ETOH negati ve. TSH normal . beta hcg negati ve. UA not infect ed. -D-dim er elevat ed, concer bella in the settin g of syncop e; CT PE indepe ndentl y review ed, no saddle embolu s on my view, radiol ogy read below with no eviden t PE. No pulmon yamilet edema to sugges t new heart failur e. On reasse ssment she report s feelin g well, entire ly back to normal . She report s that she has an appoin tment with her cardio logist schedu led for tomorr ow at 1pm. Given her histor y, high-r isk syncop e, no clear provok ing factor , offere d observ ation overni ght which patien t declin ed. She strong ly prefer s to go home and see her cardio logist tomorr ow which is not an entire ly unreas onable plan. Will have someon e with her overni ght and will re-pre sent to the ED should sympto ms return . I review ed with Ms. Hernandez and her signif icant other the fact that I cannot say for sure that nothin g would happen overni ght and that it is possib le she could have anothe r potent ially more seriou s event which could result in ; they voiced unders percy laureano of my concer ns. Ms. Hernandez again stated that she would prefer to go home and follow up with her PCP and with her cardio logist tomorr ow. I have no indica tion to hold her agains t her will. Asha rged home agains t medica l advice ; asha liceae instru ctions and return precau tions were review ed with laly sebastian who verbal ized unders percy laureano. All questi ons were answer ed. Medica l Record s Medica l record s review ed: Yes I review ed the laly sebastian's medica l record s. Imagin g Data Radiol ogic Study: Imagin g: CT Scan Radiol ogist' s impres marysol: IMPRES MARYSOL: 1. No acute intrac ranial abnorm ality. 2. No large vessel occlus ion at the [place]. 3. Absent right A1 segmen t which can be a normal varian t. 4. No orbita l lesion . Radiol ogic Study #2: Imagin g: CT Scan Radiol ogist' s impres marysol: IMPRES MARYSOL: No acute abnorm ality. Other findin gs. Lab Data Lab result s review ed: Yes I review ed the laly sebastian's lab result s. Labs: 14:45 Urine - Reflex from Ua Urine Cultur e - [facility] Tests Range/ Units 11:45 14:32 14:45 WBC (4.4-1 0.8) 10 3/uL 6.46 RBC (3.93- 5.22) 10 6/uL 4.52 Hgb (11.2- 15.7) g/dL 13.9 Hct (36.0- 46.0) % 40.3 MCV (80-95 ) fL 89 MCH (27.0- 33.0) pg 30.8 MCHC (32.0- 36.0) % 34.5 RDW (11.7- 14.6) % 11.9 Plt Count (130-4 00) 10 3/uL 204 MPV (8.0-1 1.0) fL 9.6 Immatu re Gran % 0.3 Neutro phils % 54.7 Lympho cytes % 33.7 Monocy aneta % 9.3 Eosino phils % 1.5 Basoph ils % 0.5 Nuclea tarsha RBC % (0.0-0 .3) % 0.0 Absolu te Neutro phils (1.2-6 .7) 10 3/uL 3.53 Absolu te Lympho cytes (1.2-3 .4) 10 3/uL 2.18 Absolu te Monocy aneta (0.1-0 .8) 10 3/uL 0.60 Absolu te Eosino phils (0.0-0 .7) 10 3/uL 0.10 Absolu te Basoph ils (0.0-0 .2) 10 3/uL 0.03 PT (9.1-1 1.1) sec 10.6 INR (0.9-1 .1) 1.1 D-Dime r (<500) ng/mlF EU 767 H Sodium (136-1 45) mmol/L 135 L Potass ium (3.5-5 .1) mmol/L 4.8 Chlori de (98-10 7) mmol/L 100 Carbon Dioxid e (21.0- 32.0) mmol/L 31.1 Anion Gap (3-11) mmol/L 3.9 BUN (7-18) mg/dL 16 Creati nine (0.55- 1.02) mg/dL 0.9 Est GFR (CKD-E PI 2020) (mL/mi n/1.73 m2) 78.37 Glucos e (74-10 6) mg/dL 289 H Calciu m (8.5-1 0.1) mg/dL 9.2 Magnes ium (1.8-2 .4) mg/dL 2.1 Total Biliru bin (0.2-1 .0) mg/dL 0.5 AST (15-37 ) U/L 34 ALT (14-59 ) U/L 51 Alkali ne Phosph atase (46-11 6) U/L 109 Ammoni a (11-32 ) umol/L < 10 L Tropon in I ( Date: 1701 Date: Date: Transc ribed Date: Transc ribed Time: 1141 By: JUSTIN This is privil eged, confid ential inform ation, intend ed only for the provid er named. Any use or distri bution by any person other than this provid er is strict ly prohib ited. If you receiv e this rep ort in error, please notify us immedi ately at and return the origin al report to us at the addres s above. Thank you. [facility] [address] [place], [address] 07/06/2023 16:20:17 07/05/20 23 07/05/2023 CT imagi ng repor t Patien t Name: Kailey Hernandez Unit #: [id number] Loc: ER Orderi ng Provid er: Ilda Angeles M.D. Accoun t #: [id number] Status : REG ER Primar y Care Provid er: Jennifer on,Ceasar joan Date of Exam: Sex: F : 1974 Age: 48 Exam(s ) a CT:CT chest PE CTA Exam(s ) CT CHEST PE CTA EXAM: CT CHEST PE CTA CLINIC AL HISTOR Y: syncop e. TECHNI QUE: Imagin g Protoc ol: CT angiog ena of the chest was perfor med using pulmon yamilet embolu s protoc ol. Multi planar recons tructi ons were perfor med. CONTRA ST MATERI AL: Intrav enous: Omnipa que [address] volume : 100 cc COMPAR LIONEL: CT CT BRAIN NECK CTA from 2022 FINDIN GS: CHEST: PULMON YAMILET ARTERI ES: There are no intral uminal fillin g defect s to sugges t acute pulmon yamilet emboli . LUNGS: There are no infilt rates nor eviden ce of pulmon yamilet infarc tion.. There are no pleura l effusi ons. MEDIAS TINUM: There is no hilar nor medias tinal adenop athy. CARDIA C: Heart size is upper normal . There is no perica rdial effusi on.Elizabeth iber of the thorac ic aorta is within normal limits . No eviden ce of dissec tion. There is no signif icant shift of the interv entric ular septum . PARTIA LLY VISUAL IZED UPPERM OST ABDOME N: No obviou s findin gs OSSEOU S: No signif icant osseou s lesion s.. IMPRES MARYSOL: 1. No eviden ce of acute pulmon yamilet emboli . No eviden ce of pulmon yamilet infarc tion.N o pleura l effusi ons. No lung infilt rates. 2. No eviden ce of aortic dissec tion. No perica rdial effusi on. RADIAT ION DOSE DELIVE RED: Total DLP DATA REPOSI TORY: All CT scans at this facili ty are submit tarsha to the [facility] Radiol ogy Data Regist ry (NRDR) Dose Index Regist ry (DIR) with the [place] of Radiol ogy (ACR). RADIAT ION OPTIMI ZATION : All CT scans at this facili ty use at least one of these dose optimi zation techni ques: automa tarsha exposu re contro l; mA and/or kV adjust ment per patien t size (inclu yulisa target ed exams where dose is matche d to clinic al indica tion); or iterat jes recons tructi on. 1203-0 012: Total DLP = 0.00 mGy-cm Ordere d By: Ilda Angeles M.D. CC: ------ ------ ------ ------ ------ ------ ------ ------ ------ ------ ------ ------ ---- Dictat ed By: Delroy Doll M.D. 1846 Transc ribed By: Sharmila DUNCAN,Edgar bianca 1846 This is privil eged, confid ential inform ation intend ed only for the provid er named. Any use or distri bution by any person other than this merged with [facility] er is strict ly prohib ited. If you receiv e this report in error, please notify us immedchaka olson at and return the origin al report to us at the addres s above. Thank- you. [facility] [address] , [place], [address] 07/06/2023 16:20:20 07/05/20 23 07/05/2023 CT imagi ng repor t Patien t Name: Kailey Hernandez Unit #: [id number] Loc: ER Orderi ng Provid er: Ilda Angeles M.D. t #: [id number] Status : REG ER Primar y Care Provid er: Jennifer on,Ceasar joan Date of Exam: Sex: F : 1974 Age: 48 Exam(s ) a CT:CT brain neck CTA Exam(s ) CT BRAIN NECK CTA EXAM: CT BRAIN NECK CTA CLINIC AL HISTOR Y: syncop e, left pupil mydria sis compar ed to right. TECHNI QUE: Imagin g Protoc ol: Axial CT angiog ena was perfor med with multi- slice acquis ition and multi- planar and/or 3D recons tructi ons. CONTRA ST MATERI AL: Intrav enous: Omnipa que [address] volume :struc tured data in ml COMPAR LIONEL: CT CT CHEST PE CTA from 2021 FINDIN GS: CTA Neck W: Aortic arch anatom y: The aortic arch anatom y is bovine . There is no signif icant stenos is at the origin of the great vessel s off of the aortic arch. No intima l flap eviden t. Anteri or circul ation: Both common caroti d arteri es ascend with normal lumina l diamet ers. At the level the caroti d bulbs and proxim al electrical engineering intern al caroti d arteri es there is no signif icant plaque and no signif icant stenos is eviden t. Both electrical engineering intern al caroti d arteri es are patent in the upper neck and skull base-c arotid canals . Investor Relations Manager ior circul ation: Both verteb ral arteri es origin ate in conven tional fashio n off of the subcla vian arteri es and there is no obviou s stenos is at the origin of the verteb ral arteri es. Left verteb ral artery is domina nt. No eviden ce of intral uminal thromb us in the verteb ral arteri es and no eviden ce of verteb ral artery dissec tion. Both verteb ral arteri es contri bute to the format ion of the basila r artery at the skull base. CTA Brain W: Anteri or circul ation: Both electrical engineering intern al caroti d arteri es are patent in the skull base-c arotid canals as well as within the cavern ous sinuse s. Suprac linoid aspect s of both electrical engineering intern al caroti d arteri es are patent . Left A1 segmen t is patent . Right A1 segmen t is not opacif ied. Both anteri or cerebr al arteri es are patent . There is no aneury sm at the level of the anteri or commun icatin g artery . Both middle cerebr al arteri es are patent with no eviden ce of signif icant stenos is nor intral uminal thromb us. There also no aneury sms of these vessel s. Investor Relations Manager ior circul ation: The basila r artery ascend s in the midlin e. Distal ly it gives off patent bilate ral superi or cerebe llar arteri es. Above this level the basila r artery termin ates as patent bilate ral job printer ior cerebr al arteri es. There is a job printer ior commun icatin g artery noted on the left side of the [place]. There is no eviden ce of aneury sm at the tip of the basila r artery nor elsewh ere in the [place]. CT BRAIN: There is no eviden ce of intrac ranial hemorr isabella, mass effect , or shift of midlin e struct ures. There are no extra- axial fluid collec tions. Ventri cles are not enlarg ed or shifte d. There are no ring enhanc ing lesion s in the brain and no abnorm al mening eal enhanc ement. IMPRES MARYSOL: 1. Patent caroti d arteri es in the neck. No signif icant athero sclero tic diseas e in the caroti d arteri es in the neck and no signif icant stenos is. Bovine aortic arch config uratio n incide ntally noted. 2. Patent verteb ral arteri es. 3. Patent intrac ranial arteri es. 4. The right A1 segmen t is not opacif ied. This may be develo pmenta l. RADIAT ION DOSE DELIVE RED: Total DLP DATA REPOSI TORY: All CT scans at this facili ty are submit tarsha to the [facility] al Radiol ogy Data Regist ry (NRDR) Dose Index Regist ry (DIR) with the [place] of Radiol ogy (ACR). RADIAT ION OPTIMI ZATION : All CT scans at this [facility] ty use at least one of these dose optimi zation techni ques: automa tarsha exposu re contro l; mA and/or kV adjust ment per patien t size (inclu yulisa target ed exams where dose is matche d to clinic al indica tion); or iterat jes recons tructi on. 1203-0 009: Total DLP = 0.00 mGy-cm Ordere d By: Ilda Angeles M.D. CC: ------ ------ ------ ------ ------ ------ ------ ------ ------ ------ ------ ------ ---- Dictat ed By: Delroy Doll M.D. 1915 Transc ribed By: Sharmila DUNCAN,Edgar bianca 1915 This is privil eged, confid ential inform ation intend ed only for the provid er named. Any use or distri bution by any person other than this provid er is strict ly prohib ited. If you receiv e this report in error, please notify us immedi ately at [phone] and return the origin al report to us at the addres s above. Thank- you. [facility] [address] [place], [address] 07/06/2023 16:20:20 07/06/20 23 07/05/2023 elect sola bergeron am EKG PATIMARIANNA T NAME: Kailey Hernandez UNIT #: [id number] ORDERI NG PROVID ER: Ilda Angeles M.D. ACCOUN T #: [id number] PRIMAR Y CARE PROVID ER: CEASAR TURNER DATE/T ARELY OF SER VICE: 1146 : 1974 PERFOR OSCAR LOCATI ON: ER ------ ------ --- APPROV ED REPORT ------ ------ -- Exam: Restin g ECG Reason for Exam: syncop e Laly sebastian Locati on: E HR:74 bpm ECG Measur ements Heart Rate 74 AXIS AK 147 P 73 QRSd 106 QRS -66 QT 393 T 66 QTc 435 Conclu marysol Sinus rhythm ..., V-rate 60- 99 Approp riate interv als. No ST segmen t or T wave abnorm alitie s to sugges t occlus jes LA ------ ------ ------ ------ ------ ------ ------ ------ ------ ------ ------ ------ ------ ------ ------ ------ ---- ------ - E-Sign Date: E-Sign Time: 1159 ------ ------ --- ADDEND UM APPROV ED REPORT ------ ------ -- Exam: Restin g ECG Reason for Exam: syncop e Laly sebastian Locati on: E HR:74 bpm ECG Measur ements Heart Rate 74 AXIS AK 147 P 73 QRSd 106 QRS -66 QT 393 T 66 QTc 435 Conclu marysol Sinus rhythm ..., V-rate 60- 99 Approp riate interv als. No ST segmen t or T wave abnorm alitie s to sugges t occlus jes LA I have review ed and I agree with the emerge ncy room physic kristie's ECG interp retati on. Electr onical ly signed by: [id number] Cosign ed by: [facility] [address] [place] [address] [place], [address] 07/06/2023 16:20:18 08/21/19 24 08/21/2023 elect sola bergeron am EKG LALY Sebastian NAME: David Kailey A UNIT #: [id number] ORDERI NG PROVID ER: Ilda Angeles M.D. ACCOUN T #: [id number] PRIMAR Y CARE PROVID ER: JENNIFERCEASAR SAUNDERS JOAN DATE/T ARELY OF SER VICE: 2217 : 1974 PERFOR OSCAR LOCATI ON: ER ------ ------ --- APPROV ED REPORT ------ ------ -- Exam: Restin g ECG Reason for Exam: vomiti amanda Patimarianna t Locati on: E HR:73 bpm ECG Measur ements Heart Rate 73 AXIS AK 149 P 68 QRSd 114 QRS 1 QT 395 T 67 QTc 437 Conclu marysol Sinus rhythm ..V-ra te 60- 99 Approp riate interv als. No ST segmen t or T wave abnorm jason soriano to micah t occlus jes LA ------ ------ ------ ------ ------ ------ ------ ------ ------ ------ ------ ------ ------ ------ ------ ------ ---- ------ - E-Sign Date: E-Sign Time: 2230 [email or web address] [facility] [address] [place] [address] [place], [address] 08/24/2023 07:32:07 08/21/1908/21/2023 ED visit note ED Visit Note LALY T NAME: Kailey Hernandez UNIT #: [id number] ADMITT ING PROVID ER: Ilda Angeles M.D. ACCOUN T #: [id number] PRIMAR Y CARE PROVID ER: CEASAR TURNER DATE OF ADMIT: : 1974 HPI Genera l Mode of arriva l: EMS . Date/T arely Provid er Initia tarsha Docume ntatio n: 21:54 . Limita tions to Docume ntatio n: no limita tions . Inform ation obtain ed by: laly sebastian, EMS and old record s review ed . HPI Narrat jes: 48yo F with T1DM, CKD, hx inferi or STEMI in January of 2022 s/p 2 YULISA to RCA presen gisselg via EMS for nausea and vomiti ng. Histor y from laly sebastian EMS. Today around 3pm had multip le THC edible s. After this she began vomiti ng and has not been able to keep anythi ng down since then. Nonblo rolanda nonbil ious emesis . No abdomi nal pain, dysuri a, or hematu marybeth. No fevers , chills , rash, chest pain, shortn ess of breath , lighth eadedn ess numbne ss, tingli ng, weakne ss, or other concer ns. She was in her usual state of health prior to the onset of sympto ms this aftern oon. No syncop e. No recent head trauma . [facility] record s review ed includ ing most recent ED visit in [place] for syncop e and cardio logy clinic visits . Relate d Data Home Medica tions Medica tion Instru ctions Record ed Confir med cholec alcife rol (vitam in D3) 25 25 mcg PO DAILY mcg (1,000 unit) tablet metopr olol succin ate 50 mg 50 mg PO DAILY tablet ,exten ded releas e 24 hr aceton e (urine ) test (Ketos tix strips ) albute rol sulfat e 2.5 mg/3 mL 2.5 mg inhala tion Q8H PRN (0.083 %) soluti on for nebuli zation Shortn ess Of Breath albute rol sulfat e 90 mcg/ac tuatio n 2 puff inhala tion Q6H PRN aeroso l inhale r (ProAi r HFA) Shortn ess Of Breath aspiri n 81 mg chewab le tablet 81 mg PO DAILY (Child aarti's Aspiri n) glucag on 1 mg inject ion kit 1 mg subcut PRN PRN Hypogl ycemia atorva statin 80 mg tablet 80 mg PO DAILY insuli n aspart U-100 100 unit/m L See Rx Instru ctions .Route .COMPL EX (3 mL) subcut aneous pen (Novol og FlexPe n U-100 Insuli n aspart ) insuli n glargi ne 100 unit/m L (3 20 unit subcut DAILY mL) subcut aneous pen (Basag lar KwikPe n U-100 Insuli n) nitrog lyceri n 0.4 mg sublin gual 0.4 mg sublin gual PRN PRN Chest tablet Pain magnes ium oxide 400 mg (241.3 mg 400 mg PO DAILY #14 tabs magnes ium) tablet Previo us Rx's Medica tion Instru ctions Record ed magnes ium oxide 400 mg (241.3 mg 400 mg PO DAILY #14 tabs magnes ium) tablet Allerg ies Allerg y/AdvR eac Type Severi ty Reacti on Status Date / Time No Known Allerg ies Allerg y Verifi ed 21:48 Genera l Stated Compla int: AMS/LO C MITCHELL: 3 Review of System s Narrat jes: see HPI Exam Narrat jes Exam Narrat jes: Genera l: Alert, clutch ing emesis bag Head: Normoc ephali c, atraum atic Neck: Trache a midlin e, ???Nec k supple . ENT: ???Tac hy MM.??? No oropha rygeal lesion s or exudat e. Cardia c: ???RRR , no murmur s apprec iated Resp: No respir atory distre ss. CTAB. Abd: ???Sof t, non-di stende d, nonten janay : ???No suprap ubic tender ness. No CVA tender ness. Extrem ities: ???No deform ities. ??? No periph eral edema. Neuro: ??? GCS 15.??? Pupils reacti ve, slight asymme try baseli ne for patien t. EOMI.? ?? Fluent speech , no dysart hria. Normal sensat ion in V1, V2, and V3 segmen ts bilate rally. No asymme try, no nasola bial fold flatte bella. Normal hearin g to speech . Normal palata l elevat ion, no uvular deviat ion. Midlin e tongue protru marysol Motor- 12/05 streng th symmet thelma bilate ral upper and lower extrem ities Sensat ion- ???Int act to light touch and symmet thelma multip le dermat omes includ ing upper and lower extrem ities Coordi nation - No dysmet marybeth on finger to nose Course Vital Signs Vital signs: Vital Signs Temper ature 36.3 C L 21:42 Pulse 77 21:42 Respir atory Rate 16 21:42 Blood Pressu re 155/65 H 21:42 Pulse Oximet ry 100 21:42 Temper ature 36.3 C L 21:42 Temper ature Source Skin 21:42 Pulse 77 21:42 Respir atory Rate 16 21:42 Respir atory Effort Normal , Non-La bored 21:46 Blood Pressu re 155/65 H 21:42 Pulse Oximet ry 100 21:42 Oxygen Delive ry Method Room Air 21:42 Oxygen Flow Rate 0 21:42 Pain Level 0 21:42 Medica l Decisi on Making 48yo F with T1DM, CKD, hx inferi or STEMI in January of 2022 s/p 2 YULISA to RCA presen ting via EMS for nausea and vomiti ng. Histor y from patien t EMS. Today around 3pm had multip le THC edible s. After this she began vomiti ng and has not been able to keep anythi ng down since then. Normal blood glucos e for EMS. Vital signs reassu ring on arriva l. Normal neurol ogic exam aside from baseli ne pupill yamilet asymme try. No abdomi nal tender ness. Most likely advers e reacti on to THC, howeve r given medica l histor y will evalua te for other potent ial causes with EKG, labs. Low suspic ion for acute intrab domian l proces s or intrac ranial proces s given reassu ring abdomi nal and neurol ogic exams; would not pursue CT imagin g at this time. Given 1L IVFB, IV zofran for sympto ms. EKG NSR, approp riate interv als, no ST segmen t or T wave abnorm alitie s to sugges t occlus jes LA. Labs review ed as below, CBC reassu ring with no leukoc ytosis , CMP with mild hyperg lycemi a to 207, no DKA, no signif icant electr olyte abnorm alitie s, ETOH negati ve. Tropon in negati ve in the settin g of 6+ hours of sympto ms, would not furthe r pursue acute pennington ry syndro me. Signed out to geovanni patel physic kristie, plan to PO therese gay ss. Lab Data Lab result s review ed: Yes I review ed the patien t's lab result s. Labs: Dentona luz Tests Range/ Units 22:20 WBC (4.4-1 0.8) 10 3/uL 7.04 RBC (3.93- 5.22) 10 6/uL 4.44 Hgb (11.2- 15.7) g/dL 13.6 Hct (36.0- 46.0) % 39.8 MCV (80-95 ) fL 90 MCH (27.0- 33.0) pg 30.6 MCHC (32.0- 36.0) % 34.2 RDW (11.7- 14.6) % 12.3 Plt Count (130-4 00) 10 3/uL 181 MPV (8.0-1 1.0) fL 9.5 Immatu re Gran % 0.4 Neutro phils % 77.5 Lympho cytes % 15.2 Monocy aneta % 6.1 Eosino phils % 0.4 Basoph ils % 0.4 Nuclea tarsha RBC % (0.0-0 .3) % 0.0 Absolu te Neutro phils (1.2-6 .7) 10 3/uL 5.45 Absolu te Lympho cytes (1.2-3 .4) 10 3/uL 1.07 L Absolu te Monocy aneta (0.1-0 .8) 10 3/uL 0.43 Absolu te Eosino phils (0.0-0 .7) 10 3/uL 0.03 Absolu te Basoph ils (0.0-0 .2) 10 3/uL 0.03 Sodium (136-1 45) mmol/L 137 Potass ium (3.5-5 .1) mmol/L 4.3 Chlori de (98-10 7) mmol/L 100 Carbon Dioxid e (21.0- 32.0) mmol/L 30.1 Anion Gap (3-11) mmol/L 6.9 BUN (7-18) mg/dL 17 Creati nine (0.55- 1.02) mg/dL 0.9 Est GFR (CKD-E PI 2020) (mL/mi n/1.73 m2) 78.37 Glucos e (74-10 6) mg/dL 207 H Calciu m (8.5-1 0.1) mg/dL 9.8 Magnes ium (1.8-2 .4) mg/dL 2.1 Total Biliru bin (0.2-1 .0) mg/dL 0.7 AST (15-37 ) U/L 32 ALT (14-59 ) U/L 47 Alkali ne Phosph atase (46-11 6) U/L 104 Tropon in I (< or =60) ng/L < 50 Total Protei n (6.4-8 .2) g/dL 8.1 Albumi n (3.4-5 .0) g/dL 4.0 Qualit y:SDOH Health Relate d Social Needs: No Data to Displa y PFSH All Active Proble ms (Updat ed @ 10:15 by Jaquelin wilburn, WAYLON) 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 (Acute ) Nail dystro phy (Acute ) Type 1 diabet es mellit us with diabet ic polyne uropat hy (Acute ) Retino suze (Acute ) Type 1 diabet es mellit us (Acute ) Asthma (Chron ic) GERD (gastr oesoph ageal reflux diseas e) (Chron ic) CAD (coron yamilet artery diseas e), pala pennington ry artery (Acute ) Neurog enic bladde r (Acute ) IDDM (insul in depend ent diabet es mellit us) (Chron ic) Nonsus tained paroxy smal ventri cular tachyc ardia (Acute ) Vitami n D defici ency (Acute ) Neurop athy (Acute ) Chroni c kidney diseas e, stage I (Acute ) Hearin g loss (Acute ) Blind right eye (Acute ) Cellul itis of foot (Acute ) Medica l Histor y (Revie thu @ 10:26 by Umm Mcneal DPM) Syncop e Hypoma gnesem ia Cancer of cervix Hyperk alemia Visual loss Acute pain in female pelvis Elevat ed tropon in Histor y of deep vein thromb ophleb itis of lower extrem ity Surgic al Histor y (Revie thu @ 10:26 by Umm Mcneal DPM) Histor y of partia l hyster ectomy Social Histor y (Revie thu @ 10:26 by Umm Mcneal DPM) 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 Use Status : Never Smokin g risk assess ment perfor med?: Yes Alcoho l Intake : never Drug use: Daily Substa nce use type: skyler Hill s: edible s Seatbe lt use: always Do you feel safe at home: Yes Do you feel safe in your relati onship ?: Yes Female Reprod uctive Histor y Menstr ual Menopa use type: surgic al Prenat al Histor y Pregna ncy Histor y Gravid a 14 Para Hx # Term Pregna ncies Multip le births Hx # Preter m Pregna ncies 1 Ectopi c pregna ncies AB induce d Hx Number of Living Childr en AB sponta neous Discha rge Plan Discha rge Detail s Chief Compla int: AMS/LO C Primar y Care Provid er: Jennifer on,Ceasar franco ED Provid er: Ilda Angeles jose Home Meds and New Rx's Prescr iption s: No Action albute rol sulfat e 2.5 mg /3 mL (0.083 %) soluti on for nebuli zation 2.5 mg inhala tion Q8H PRN (Reaso n: Shortn ess Of Breath ) (DME) Ketost ix Strip See Rx Instru ctions .Route Rx Instru ctions : As direct ed glucag on 1 mg kit 1 mg subcut PRN PRN (Reaso n: Hypogl ycemia ) aspiri n [Child aarti's Aspiri n] 81 mg tablet ,chewa ble 81 mg PO DAILY albute rol sulfat e [ProAi r HFA] 90 mcg/ac tuatio n HFA aeroso l inhale r 2 puff inhala tion Q6H PRN (Reaso n: Shortn ess Of Breath ) metopr olol succin ate 50 mg tablet extend ed releas e 24 hr 50 mg PO DAILY Patien t Commen ts: Take 1 tablet by mouth once a day cholec alcife rol (vitam in D3) 25 mcg (1,000 unit) tablet 25 mcg PO DAILY Patien t Commen ts: TAKE ONE-FERNANDEZ LF TABLET BY MOUTH TWICE A DAY atorva statin 80 mg tablet 80 mg PO DAILY Patien t Commen ts: Take 1 tablet by mouth every evenin g insuli n glargi ne [Basag lar KwikPe n U-100 Insuli n] 100 unit/m L (3 mL) insuli n pen 20 unit SUBCUT DAILY Patien t Commen ts: INJECT 22 UNITS UNDER THE SKIN EVERY MORNIN G insuli n aspart U-100 [Novol og FlexPe n U-100 Insuli n] 100 unit/m L (3 mL) insuli n pen See Rx Instru ctions .ROUTE .COMPL EX Patien t Commen ts: INJECT BASED ON CARBS AT A RATION OF 1:10 GIVE AND CORREC T FOR BG gt;150 BASED ON ISF 1:25 Rx Instru ctions : per slidin g before meals. nitrog lyceri n 0.4 mg Tablet , Sublin gual 0.4 mg sublin gual PRN PRN (Reaso n: Chest Pain) magnes ium oxide 400 mg (241.3 mg magnes ium) tablet 400 mg PO DAILY Qty: 14 0RF cc: JENNIFER ON,PAT JOAN ------ ------ ------ ------ ------ ------ ------ ------ ------ ------ ------ --- Dictat ed by: Ilda Angeles M.D. Dictat ed: Time: 2148 Date: 2315 Date: Date: Transc ribed Date: Transc ribed Time: 2148 By: JUSTIN This is privil eged, confid ential inform ation, intend ed only for the provid er named. Any use or distri bution by any person other than this provid er is strict ly prohib ited. If you receiv e this rep ort in error, please notify us immedi ately at and return the origin al report to us at the addres s above. Thank you. [facility] [address], [place], [address] 08/24/2023 07:32:07 08/22/19 24 08/22/2023 ED progr ess note ED Progre ss Note PATIEN T NAME: Kailey Hernandez UNIT #: [id number] ADMITT ING PROVID ER: Richard Savage DO ACCOUN T #: [id number] PRIMAR Y CARE PROVID ER: CEASAR TURNER DATE OF ADMIT: : 1974 Date of servic e: Time of Servic e: 06:17 Medica l [place] on Making Patien t was signed out to me by my collea skyler Hernández Please refer to HPI, physic al exam, assess ment and plan. At the time of signou t patien t had been medica lly cleare d howeve r we were waitin g for the effect s of the edible s to wear off. At around midnig ht the patien t was feelin g much better but was still slight ly sleepy . Unfort unatel y the only way for the patien t to get home or for her husban d to be able to get to the emerge ncy depart ment was by EMS or using RCT. Laly sebastian was allowe d to sleep in the emerge ncy depart ment throug hout the rest of the night. Soha acuña at 6:30 AM the laly sebastian is feelin g much better . She ambula aneta well, she shows no signs of intoxi cation . Laly sebastian states that she feels at her baseli ne. Laly sebastian stable for discha rge. I recomm ended agains t utiliz ing edible s in the future . I have extens ively review ed the treatm ent plan and discha rge instru ctions with the laly sebastian. I have addres sed all patimarianna sebastian concer ns at this time. The laly sebastian was made aware of what sympto ms to monito r for that would warrsusan sebastian a return to the emerge ncy depart ment. Discus sed the plan with the laly sebastian, they demons trate verbal unders tandin g and agreem ent with our assess ment and plan at this time. The docume ntatio n in this chart was dictat ed using [employer]on dictat ion softwa re. Please excuse any dictat ion errors . Qualit y:SDOH Health Relate d Social Needs: No Data to Displa y Sign Out Sign Out Data: Sign Out Commen t: 48yo F presen ting with N/V after THC edible s at 3pm. EKG, labs reassu ring. Given IVFB, zofran . Plan to PO jamaica bland, reasse ss, dc when able to tolera te fluids and clinic ally sober. Last update d by Ilda Angeles MD at 23:17 Discha rge Plan Dispos ition Condit ion: Good Discha rge Detail s Chief Compla int: AMS/LO C Clinic al Impres marysol: Advers e effect of cannab is Primar y Care Provid er: Jennifer mathur,Ceasar franco ED Provid er: Richard Savage Home Meds and New Rx's Prescr iption s: No Action albute rol sulfat e 2.5 mg /3 mL (0.083 %) soluti on for nebuli zation 2.5 mg inhala tion Q8H PRN (Reaso n: Shortn ess Of Breath ) (DME) Ketost ix Strip See Rx Instru ctions .Route Rx Instru ctions : As direct ed glucag on 1 mg kit 1 mg subcut PRN PRN (Reaso n: Hypogl ycemia ) aspiri n [Child aarti's Aspiri n] 81 mg tablet ,chewa ble 81 mg PO DAILY albute rol sulfat e [ProAi r HFA] 90 mcg/ac tuatio n HFA aeroso l inhale r 2 puff inhala tion Q6H PRN (Reaso n: Shortn ess Of Breath ) metopr olol succin ate 50 mg tablet extend ed releas e 24 hr 50 mg PO DAILY Patien t Commen ts: Take 1 tablet by mouth once a day cholec alcife rol (vitam in D3) 25 mcg (1,000 unit) tablet 25 mcg PO DAILY Patien t Commen ts: TAKE ONE-FERNANDEZ LF TABLET BY MOUTH TWICE A DAY atorva statin 80 mg tablet 80 mg PO DAILY Patien t Commen ts: Take 1 tablet by mouth every evenin g insuli n glargi ne [Basag lar KwikPe n U-100 Insuli n] 100 unit/m L (3 mL) insuli n pen 20 unit SUBCUT DAILY Patien t Commen ts: INJECT 22 UNITS UNDER THE SKIN EVERY MORNIN G insuli n aspart U-100 [Novol og FlexPe n U-100 Insuli n] 100 unit/m L (3 mL) insuli n pen See Rx Instru ctions .ROUTE .COMPL EX Patien t Commen ts: INJECT BASED ON CARBS AT A RATION OF 1:10 GIVE AND CORREC T FOR BG gt;150 BASED ON ISF 1:25 Rx Instru ctions : per slidin g before meals. nitrog lyceri n 0.4 mg Tablet , Sublin gual 0.4 mg sublin gual PRN PRN (Reaso n: Chest Pain) magnes ium oxide 400 mg (241.3 mg magnes ium) tablet 400 mg PO DAILY Qty: 14 0RF Discha rge Instru ctions Additi onal Instru ctions : At this time the major effect s of the joannju sintia has seemin gly worn off. I would advise avoidi ng edible use in the future . If you notice any worsen ing of your sympto ms, or any new sympto ms such as vomiti ng, diarrh ea, fever, chills , shortn ess of breath , chest pain, numbne ss, weakne ss, or fainti ng , please return immedi ately to the emerge ncy depart ment for reeval uation . Please follow up with your primar y care provid er as soon as possib le for reasse ssment and reeval uation . As always , it was a pleasu re partic janett laureano in your medica l care today. Referr als: Ceasar Turner [Prima ry Care Provid er] - cc: CEASAR TURNER ------ ------ ------ ------ ------ ------ ------ ------ ------ ------ ------ --- Dictat ed by: JULISSA SAVAGE DO Dictat ed: Time: 01 17 Date: 619 Date: Date: Transc ribed Date: Transc ribed Time: 616 By: JOHNATHAN Fisher This is privil eged, confid ential inform ation, intend ed only for the provid er named. Any use or distri bution by any person other than this provid er is strict ly prohib ited. If you receiv e this report in error, please notify us immedi ately at and return the origin al report to us at the addres s above. Thank you. [facility] [address] [place], [address] 08/24/2023 07:32:07 08/28/1908/21/2023 cesar bergeron am EKG LALY T NAME: Kailey Hernandez UNIT #: [id number] ORDERI NG PROVID ER: Ilda Angeles M.D. ACCCOOKIE T #: [id number] PRIMAR Y CARE PROVID ER: CEASAR TURNER DATE/T ARELY OF SER VICE: 2217 : 1974 [facility] LOCATI ON: ER ------ ------ --- APPROV ED REPORT ------ ------ -- Exam: Restin g ECG Reason for Exam: vomiti ng Patien t Locati on: E HR:73 bpm ECG Measur ements Heart Rate 73 AXIS AK 149 P 68 QRSd 114 QRS 1 QT 395 T 67 QTc 437 Conclu marysol Sinus rhythm ..V-ra te 60- 99 Approp riate interv als. No ST segmen t or T wave abnorm alitie s to sugges t occlus jes LA ------ ------ ------ ------ ------ ------ ------ ------ ------ ------ ------ ------ ------ ------ ------ ------ ---- ------ - E-Sign Date: E-Sign Time: 2229 ------ ------ --- ADDEND UM APPRO ED REPORT ------ ------ -- Exam: Restin g ECG Reason for Exam: vomiti ng Patien t Locati on: E HR:73 bpm ECG Measur ements Heart Rate 73 AXIS AK 149 P 68 QRSd 114 QRS 1 QT 395 T 67 QTc 437 Conclu marysol Sinus rhythm ..V-ra te 60- 99 Approp riate interv als. No ST segmen t or T wave abnorm alitie s to sugges t occlus jes LA I have review ed and I agree with the emerge ncy room physic kristie's ECG interp retati on. Electr onical ly signed by: [id number] Cosign ed by: [facility] [address] [place], [address] 08/28/2023 14:30:56 12/07/19 24 12/07/2023 x-ray imagi ng repor t Patien t Name: aKiley Hernandez Unit #: [id number] Loc: ER Orderi ng Provid er: Ramon Thorpe M.D. Accoun t #: [id number] Status : REG ER Primar y Care Provid er: Ceasar Turner Date of Exam: Sex: F Admiss ion Date: : 1974 Age: 48 Exam(s ) XR CHEST 2V PA LATERA L EXAM: XR CHEST 2V PA LATERA L CLINIC AL HISTOR Y: chest pain TECHNI QUE: 2D digita l imagin g was perfor med. Two views. COMPAR LIONEL: CR XR PORTAB LE CHEST AP from 2022 FINDIN GS: HEART: Normal size. Pennington ry artery stents . Aorta: Not dilate d. PULMON YAMILET VASCUL ATURE: Normal . LUNGS: Clear. PLEURA L SPACE: No pleura l effusi on or pneumo thorax . BONE:U nremar kable for age. Soft tissue s: Unrema rkable . IMPRES MARYSOL: No acute abnorm ality. DATA REPOSI TORY: RADIAT ION DOSE DELIVE RED: Ordere d By: Ramon Thorpe M.D. CC: ------ ------ ------ ------ ------ ------ ------ ------ ------ ------ ------ ------ - Dictat ed By: Ariadna Ochoa [id number] 1343 Transc ribed By: Hallie Lamb 1343 This is privil eged, confid ential inform ation intend ed only for the provid er named. Any use or distri bution by any person other than this provid er is strict ly prohib ited. If you receiv e this report in error, please notify us immedi bradfordly at and return the origin al report to us at the addres s above. Thank- you. [facility] [address] [place] [address] [place], [address] 12/07/2023 17:00:11 02/15/20 24 02/15/2024 CT imagi ng alen sebastian Name: Kailey Hernandez Unit #: [id number] Loc: ER Orderi ng Provid er: Julissa Thornton Accoun t #: [id number] Status : REG ER Primar y Care Provid er: Jennifer on,Ceasar joan Date of Exam: Sex: F : 1974 Age: 48 Exam(s ) a CT:CT cervic al spine wo Exam(s ) CT CERVIC AL SPINE WO EXAM: CT CERVIC AL SPINE WO CLINIC AL HISTOR Y: L UE radicu lar pain. TECHNI QUE: Imagin g Protoc ol: Axial comput ed tomogr aphy images with pennington l and sagitt al reform atted images were create d and review ed COMPAR LIONEL: CT CT BRAIN NECK CTA from 2022 FINDIN GS: CERVIC AL SPINE: There is no eviden ce of acute fractu re. No signif icant prever tebral soft tissue swelli ng. No signif icant listhe sis. Straig htenin g of the cervic al spine is again noted, unchan ged and relate d to develo pmenta l fusion at the C4-5 levels both anteri stacy and job printer iorly partia l fusion of the C4 and 5 verteb ral bodies as well as the job printer ior osseou s elemen ts includ ing the bilate ral facet joints at this level. Other disc spaces exhibi t normal height and other facet joints appear unrema rkable . Calcif ic densit y anteri or to the lower odonto id is unchan ged from [facility] er 2022 No signif icant osseou s lesion s eviden t. IMPRES MARYSOL: No eviden ce of acute cervic al spine fractu re, malali gnment , nor acute compro mise of the cervic al spinal canal. Develo pmenta l fusion of C4 and C5 verteb maude again noted. Called by myself to ER provid er. RADIAT ION DOSE DELIVE RED: 308.16 mGy.cm Total DLP DATA REPOSI TORY: All CT scans at this facili ty are submit tarsha to the Nation al Radiol ogy Data Regist ry (NRDR) Dose Index Regist ry (DIR) with the [place] [employer] [employer] Radiol ogy (ACR). RADIAT ION OPTIMI ZATION : All CT scans at this facili ty use at least one of these dose optimi zation techni ques: automa tarsha exposu re contro l; mA and/or kV adjust ment per patien t size (inclu yulisa target ed exams where dose is matche d to clinic al indica tion); or iterat jes recons tructi on. 714-0 018: Total DLP = 0.00 mGy-cm Ordere d By: Julissa Thornton CC: ------ ------ ------ ------ ------ ------ ------ ------ ------ ------ ------ ------ ---- Dictat ed By: Delroy Doll M.D. 1102 1102 Transc ribed By: Sharmila DUNCAN,Edgar valenzuela 1102 This is privil eged, confid ential inform ation intend ed only for the provid er named. Any use or distri bution by any person other than this provid er is strict ly prohib ited. If you receiv e this report in error, please notify us immedi bradfordly at [phone] and return the origin al report to us at the addres s above. Thank- you. [facility] [address] [place], [address] 02/15/2024 12:23:56 02/15/20 24 02/15/2024 CT imagi ng repor t Patien t Name: Kailey Hernandez Unit #: [id number] Loc: ER Orderi ng Provid er: Julissa Thornton Accoun t #: [id number] Status : REG ER Primar y Care Provid er: Jennifer on,Pat joan Date of Exam: Sex: F : 1974 Age: 48 Exam(s ) a CT:CT upper extrem ity LT wo Exam(s ) CT UPPER EXTREM ITY LT WO EXAM: CT UPPER EXTREM ITY LT WO CLINIC AL HISTOR Y: L arm delaye d cap refill , coolne ss to touch TECHNI QUE: Imagin g Protoc ol: Axial comput ed tomogr aphy images with pennington l and sagitt al reform atted images were create d and review ed. CONTRA ST MATERI AL: Intrav enous: None COMPAR LIONEL: No exams were availa ble for compar lionel FINDIN GS: OSSEOU S: AC joint appear s unrema rkable . There is mild degene rative change in the glenoh umeral joint. No findin gs in the elbow joint. No fractu res eviden t. No signif icant osseou s lesion s. No radiop aque foreig n bodies . Some vascul ar calcif icatio n is noted in the radial artery below the level of the elbow. IMPRES MARYSOL: No signif icant osseou s findin gs in the left upper extrem ity. There is vascul ar calcif icatio n noted in forear m arteri es indica ting athero sclero tic involv ement in this 48-yea r-old patien t. RADIAT ION DOSE DELIVE RED: 380.79 mGy.cm Total DLP DATA REPOSI TORY: All CT scans at this facili ty are submit tarsha to the Nation al Radiol ogy Data Regist ry (NRDR) Dose Index Regist ry (DIR) with the [place] [employer]iol ogy (ACR). RADIAT ION OPTIMI ZATION : All CT scans at this facili ty use at least one of these dose optimi zation techni ques: automa tarsha exposu re contro l; mA and/or kV adjust ment per patien t size (inclu yulisa target ed exams where dose is matche d to clinic al indica tion); or iterat jes recons tructi on. 017: Total DLP = 0.00 mGy-cm Ordere d By: Julissa Thornton CC: ------ ------ ------ ------ ------ ------ ------ ------ ------ ------ ------ ------ ---- Dictat ed By: Delroy Doll M.D. 1115 Transc ribed By: Sharmila DNUCAN,Edgar bianca 1115 This is privil eged, confid ential inform ation intend ed only for the provid er named. Any use or distri bution by any person other than this provid er is strict ly prohib ited. If you receiv e this report in error, please notify us immedi ately at [phone] and return the origin al report to us at the addres s above. Thank- you. [facility] [address] [place], [address] 02/15/2024 12:23:56 02/15/20 24 02/15/2024 ultra sound imagi ng repor t Patien t Name: Kailey Hernandez Unit #: [id number] Loc: ER Orderi ng Provid er: Julissa Thornton Accoun t #: [id number] Status : REG ER Primar y Care Provid er: Ceasar Turner Date of Exam: Sex: F Admiss ion Date: : 1974 Age: 48 Exam(s ) US UPPER EXTREM ITY VENOUS LT EXAM: US UPPER EXTREM ITY VENOUS LT CLINIC AL HISTOR Y: L arm pain, elev d-dime r. TECHNI QUE: Ultras ound examin ation of the left upper extrem ity venous system (s) is perfor med using graysc jag, color- flow, and spectr al Dopple r analys is. COMPAR LIONEL: No exams were availa ble for compar lionel FINDIN GS: The left electrical engineering intern al jugula r, axilla ry, subcla vian, cephal ic, basili c, brachi al, radial , and ulnar veins are patent withou t eviden ce of thromb osis. IMPRES MARYSOL: No DVT. DATA REPOSI TORY: Ordere d By: Julissa Thornton CC: ------ ------ ------ ------ ------ ------ ------ ------ ------ ------ ------ ------ - Dictat ed By: Ariadna Ochoa 1354 1354 Transc ribed By: Hallie Lamb 1354 This is privil eged, confid ential inform ation intend ed only for the provid er named. Any use or distri bution by any person other than this provid er is strict ly prohib ited. If you receiv e this report in error, please notify us immedi ately at and return the origin al report to us at the addres s above. Thank- you. [facility] [address], [place], [address] 02/15/2024 14:16:11 02/15/20 24 02/15/2024 CT imagi amanda sebastian Name: Kailey Hernandez Unit #: [id number] Loc: ER Tim patel Provid er: Julissa Thornton Accoun t #: [id number] Status : REG ER Primar y Care Provid er: Jennifer on,Ceasar franco Date of Exam: Sex: F : 1974 Age: 48 Exam(s ) a CT:CT upper extrem ity LT CTA Exam(s ) CT UPPER EXTREM ITY LT CTA EXAM: CT UPPER EXTREM ITY LT CTA CLINIC AL HISTOR Y: L arm pain, elev d-dime r, delaye d cap refill TECHNI QUE: Imagin g Protoc ol: Axial comput ed tomogr aphy images with pennington l and sagitt al reform atted images were create d and review ed. CONTRA ST MATERI AL: Intrav enous: Omnipa que [address] volume :[address] route: IV - COMPAR LIONEL: CT CT CHEST PE CTA from 2022 FINDIN GS: Exam was perfor med during the arteri al phase. The venous still system is not opacif ied. There is limite d evalua tion distal ly due to in the wrist and hand due to motion . There tear system is patent . There are no athero sclero tic change s. There is no edema in subcut aneous fat. No visibl e muscul ar hemato ma. There is no eviden ce of fractu re or destru ctive bony lesion . A large portio n of the chest abdome n is includ ed in the field of view. Visual ized portio ns of the caroti d arteri es and jugula r veins appear normal . The heart size is normal . The aorta is normal in diamet er. No eviden ce of dissec tion. Mild athero sclero tic change s in the distal abdomi nal aorta and electrical engineering intern al iliac arteri es. Pulmon yamilet arteri es are not well opacif ied as is pleasa nt active arteri al examin ation. The visual ized portio ns of the lungs are clear. No acute abnorm ality in the abdome n or pelvis . No bowel dilata tion. Bladde r is unrema rkable . Hyster ectomy noted. Spleen is normal in size. Liver, kidney s and adrena ls are unrema rkable as visual ized. IMPRES MARYSOL: Normal CT scan of the left upper extrem ity. No acute abnorm ality visual ized in the chest abdome n or pelvis in the field of view. . RADIAT ION DOSE DELIVE RED: Total DLP DATA REPOSI TORY: All CT scans at this facili ty are submit tarsha to the [facility] al Radiol ogy Data Regist ry (NRDR) Dose Index Regist ry (DIR) with the [place] aren[place] of Radiol ogy (ACR). RADIAT ION OPTIMI ZATION : [facility] use at least one of these dose optimi zation techni ques: automa tarsha exposu re contro l; mA and/or kV adjust ment per patien t size (inclu yulisa target ed exams where dose is matche d to clinic al indica tion); or iterat jes recons tructi on. 714- 020: Total DLP = 0.00 mGy-cm Ordere d By: Julissa Thornton CC: ------ ------ ------ ------ ------ ------ ------ ------ ------ ------ ------ ------ ---- Dictat ed By: Ariadna Ochoa [id number] Transc ribed By: Hallie Lamb 1436 This is privil eged, confid ential inform ation intend ed only for the provid er named. Any use or distri bution by any person other than this provid er is strict ly prohib ited. If you receiv e this report in error, please notify us immedi ately at and return the origin al report to us at the addres s above. Thank- you. [facility] [address] , [place], [address] 02/15/2024 14:49:16 Result Notes None recorded. Problems Name Problem SNOMED Code Status Onset Date Resolution Date Notes Provider Name and Address Organization Details Recorded Time Hearing loss 33271851 Active 201501/08/20 23 - Comments only - Navin Pittman RPA - Bilatera l, left greater than right. ENT NAVIN PITTMAN PA-C [address], [place], [address] , [place] - [facility]. 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 Problem Code: E78.5; Problem Code Type: ICD-10; Not Available [facility] 3 05:05:04 Polyneur opathy 05338282 Active 2015 Problem Code: G62.9; Problem Code Type: ICD-10; Not Available [facility] 3 05:05:04 Chronic kidney disease stage 1 352764006 Active 2015 Problem Code: N18.1; Problem Code Type: ICD-10; Not Available [facility] 3 05:05:04 Pain in left foot 00882942035 9107 Completed 201503/28/2016 Problem Code: M79.672; Problem Code Type: ICD-10; Not Available [facility] 3 05:05:04 Pelvic and perineal pain 704551447 Completed 201604/06/2017 Problem Code: R10.2; Problem Code Type: ICD-10; [address], [place], [address] , [facility] 4 12:48:28 Mild intermit tent asthma 128695197 Active 2018 Problem Code: J45.20; Problem Code Type: ICD-10; Not Available [facility] 3 05:05:04 Gastroes ophageal reflux disease without esophagi tis 457381330 Active 2020 Problem Code: K21.9; Problem Code Type: ICD-10; Not Available [facility] 3 05:05:05 Viral screenin g Completed 202101/04/2022 Problem Code: Z11.59; Problem Code Type: ICD-10; Not Available [facility] 3 05:05:05 Atherosc lerosis of coronary artery without angina pectoris 45287832760 4103 Active 202103/09/20 23 - Comments only - Navin Zain RPA - STEMI January 2022 with stenting x 2 of RCA. complete d one year of DAPT NAVIN PITTMAN PA-C [address], [place], [address] , [facility] 4 12:47:18 Altered mental status 345865304 Completed 202104/22/2022 Problem Code: R41.82; Problem Code Type: ICD-10; Not Available [facility] 3 05:05:05 Syncope and collapse 871555033 Active 202106/11/20 22 - Comments only - Navin Pittman RPA - recurren t syncope thought to be secondar y to hypoglyc emic episodes . NAVIN PITTMAN PA-C [address], [place], [address] , [facility] 4 12:49:32 Hypergly cemia due to type 1 diabetes mellitus 73629559422 9101 Completed 201504/29/2023 Problem Code: E10.65; Problem Code Type: ICD-10; Not Available [facility] 3 05:05:09 Hyperkal emia 54450671 Completed 201510/09/2016 Problem Code: E87.5; Problem Code Type: ICD-10; Not Available [facility] 3 05:05:10 Endocrin e/metabo lic screenin g Completed 201801/15/2020 Problem Code: Z13.29; Problem Code Type: ICD-10; Not Available [facility] 3 05:05:12 Vaginal bleeding 035027025 Completed 201510/09/2016 Not Available [facility] 3 05:05:12 Hemochro matosis 156450768 Completed 201510/09/2016 Problem Code: E83.119; Problem Code Type: ICD-10; Not Available [facility] 3 05:05:12 Constipa tion 22533985 Completed 201801/15/2020 Problem Code: K59.00; Problem Code Type: ICD-10; Not Available [facility] 3 05:05:14 Disorder of urinary bladder 15158760 Completed 201801/15/2020 Problem Code: N32.89; Problem Code Type: ICD-10; Not Available [facility] 3 05:05:15 Cellulit is of right lower limb 99361534988 439506 Completed 202106/11/2022 Problem Code: L03.115; Problem Code Type: ICD-10; Not Available [facility] 3 05:05:17 Adult health examinat ion Completed 202005/21/2021 Problem Code: Z00.00; Problem Code Type: ICD-10; Not Available [facility] 3 05:05:21 Abdomina l pain 06496443 Completed 201805/21/2021 Problem Code: R10.9; Problem Code Type: ICD-10; Not Available [facility] 3 05:05:22 History of respirat ory disease 076200353 Completed 201801/15/2020 Problem Code: Z87.09; Problem Code Type: ICD-10; Not Available [facility] 3 05:05:25 HIV screenin g Completed 202106/11/2022 Problem Code: Z11.4; Problem Code Type: ICD-10; Not Available [facility] 3 05:05:26 Breast composit ion 527991806 Completed 201505/21/2021 Not Available [facility] 3 05:05:27 Impingem ent syndrome of right shoulder region 30548362602 9102 Completed 201905/21/2021 Problem Code: M75.41; Problem Code Type: ICD-10; Not Available [facility] 3 05:05:28 Blood chemistr y outside referenc e range 680552738 Completed 202109/09/2022 Problem Code: R79.89; Problem Code Type: ICD-10; Not Available [facility] 3 05:05:29 Finding of contents of vagina 717203153 Completed 201510/09/2016 Not Available [facility] 05:05:29 Type 1 diabetes mellitus 35907326 Active [address], [place], [address] , [facility] 13:22:10 Notes:*Problem Name: Visual acuity, decreased, left eye *Problem Status: active *Comments: *Problem Code: H54.52 *Problem Code Type: ICD-10 *Note Date: 09/27/2015 Problem Notes None recorded. Procedures Surgical History None recorded. Imaging Results Imaging Date Name Status LastModified by Organization Details LastModified Time 07/05/2023 electrocardiogram completed [email or web address] [place] [address] [place], [address] 07/06/2023 16:20:18 07/05/2023 vrad report completed [email or web address] [place] [address] [place], [address] 07/06/2023 16:20:17 07/05/2023 vrad report completed [id number] [place] [address] [place], [address] 07/06/2023 16:20:19 07/05/2023 ED visit note completed [email or web address] [place] [address] [place], [address] 07/06/2023 16:20:17 07/05/2023 CT imaging report completed amarjit [address] [place], [address] 07/06/2023 16:20:20 07/05/2023 CT imaging report completed amarjit [address] [place], [address] 07/06/2023 16:20:20 07/05/2023 electrocardiogram completed [id number] [place] [address] [place], [address] 07/06/2023 16:20:18 08/21/2023 electrocardiogram completed amarjit [address] [place], [address] 08/24/2023 07:32:07 08/21/2023 ED visit note completed amarjit [address] [place], [address] 08/24/2023 07:32:07 08/22/2023 ED progress note completed [facility]it [place] [address] [place], [address] 08/24/2023 07:32:07 08/21/2023 electrocardiogram completed amarjit [address] [place], [address] 08/28/2023 14:30:56 12/07/2023 x-ray imaging report completed [email or web address] [email or web address] [place], [address] 12/07/2023 17:00:11 02/15/2024 CT imaging report completed [email or web address] [place] [address] [place], [address] 02/15/2024 12:23:56 02/15/2024 CT imaging report completed [email or web address] [place] [address] [place], [address] 02/15/2024 12:23:56 02/15/2024 ultrasound imaging report completed [address] [place], [address] 02/15/2024 14:16:11 02/15/2024 CT imaging report completed [address] [place], [address] 02/15/2024 14:49:16 Procedure Notes None recorded. Medical Equipment None Reported. Allergies No known drug allergies Medications Name Sig Start Date Stop Date Status Note LastModified by Organization Details LastModified Time atorvasta tin 80 mg tablet TAKE ONE TABLET BY MOUTH EVERY EVENING active Not Available Not Available No t Available Colace 100 mg capsule Take 1 capsule by mouth once a day as needed 01/29 completed Not Available Not Available Not Available albuterol sulfate 2.5 mg/3 mL (0.083 %) solution for nebulizat ion Inhale contents of 1 ampule via nebulize r every 8 hours as needed for shortnes s of breath or wheezing 2007 active Not Available Not Available Not Avai lable pravastat in 40 mg tablet Take 1 tablet by mouth every night 01/08 completed Not Available Not Available Not Available Glucagon Emergency Kit 1 mg solution for injection use as directed for low blood sugar 2013 active Not Available Not Available Not Avai lable metoprolo l succinate ER 50 mg tablet,ex tended release 24 hr Take 1 tablet by mouth once a day 02/10 completed Not Available Not Available Not Available clopidogr el 75 mg tablet TAKE ONE TABLET BY MOUTH EVERY DAY 06/17 completed Not Available Not Available Not Available magnesium oxide 400 mg (241.3 mg magnesium ) tablet Take 1 tablet every day by oral route. 2023 active Not Available Not Available Not Avai lable Humalog U-100 Insulin 100 unit/mL subcutane ous solution Inject subcutan eously before meals per sliding scale up to 35 units a day. 2015 active Not Available Not Available Not Avai lable cephalexi n 500 mg capsule TAKE ONE CAPSULE BY MOUTH THREE TIMES A DAY FOR 7 DAYS 06/17 completed Not Available Not Available Not Available pantopraz ole 40 mg tablet,de layed release Take 1 tablet by mouth once a day take prior to dinner 03/10 completed Not Available Not Available Not Available nitroglyc jada 0.4 mg sublingua l tablet 1 tablet under tongue single dose 1 tab under the tongue q 5 mins for chest pain. Max of 3 tabs, 2021 active Not Available Not Available Not Avai lable omeprazol e 20 mg capsule,d elayed release 1 capsule by mouth once a day 01/29 completed Not Available Not Available Not Available aspirin 81 mg chewable tablet Take 1 tablet by mouth once a day 2023 active Not Available Not Available Not Avai lable pravastat in 20 mg tablet Take 2 tab by mouth daily 2014 active Not Available Not Available Not Avai lable metoprolo l succinate ER 25 mg tablet,ex tended release 24 hr Take 1 tablet by mouth once a day 01/06 completed stopped per cardiolo gy note 01/07/2024 Not Available Not Available Not Available Pepcid 20 mg tablet Take 1 tablet by mouth once a day 06/11 completed Not Available Not Available Not Available ketoconaz ole 2 % topical cream APPLY TOPLICAL LY ONCE DAILY FOR FUNGAL NAILS 12/21 completed skin around nails got red and itchy Not Available Not Available Not Available Ketostix strips test when blood glucose> 250mg/dl 2007 active Not Available Not Available Not Avai lable Bactrim DS 800 mg-160 mg tablet Take 2 tablet by mouth twice a day 12/17 completed Not Available Not Available Not Available Novolog FlexPen U-100 Insulin aspart 100 unit/mL (3 mL) subcutane ous 12/21 completed Not Available Not Available Not Available glucagon active podiatry note Not Available Not Available Not Available BD Ultra-Fin e Short Pen Needle 31 gauge x 5/16 use with Lantus and Humalog pens up to 8 times daily. E11.9 2014 active Not Available Not Available Not Avai lable ProAir HFA 90 mcg/actua tion aerosol inhaler 1-2 puff as directed every four to six hours as needed 2021 active Not Available Not Available Not Avai lable cholecalc iferol (vitamin D3) 25 mcg (1,000 unit) tablet TAKE ONE-HALF TABLET BY MOUTH TWO TIMES A DAY 12/21 completed pt states she is going to be taking OTC Not Available Not Available Not Available Humalog KwikPen (U-100) Insulin 100 unit/mL subcutane ous Inject subcutan eously before meals, per sliding scale up to 35 units a day. 2015 active Not Available Not Available Not Avai lable cholecalc iferol (vitamin D3) 50 mcg (2,000 unit) tablet take one by mouth daily 11/09 completed Not Available Not Available Not Available Solus V2 Test Strips test bg 6x per day 2014 active Not Available Not Available Not Avai lable magnesium 400 mg (as magnesium oxide) capsule Take 1 capsule by mouth once a day 06/17 completed Not Available Not Available Not Available Solus V2 Audible Meter check bg 6x per day 2007 active Not Available Not Available Not Avai lable Basaglar KwikPen U-100 Insulin 100 unit/mL (3 mL) subcutane ous INJECT 20 UNITS SUBCUTAN EOUSLY EVERY MORNING active Not Available Not Available No t Available Fiasp FlexTouch U-100 Insulin 100 unit/mL (3 mL) subcutane ous pen inject based on carbs with meals and snacks at a ratio of 1:10 g and correct for BG greater than 150 based on ISF 1:25. Max daily dose 50 units. active Not Available Not Available No t Available Vitals Date Recorded Body height Body mass index (BMI) Body weight Body temperature Respiratory rate Heart rate Systolic blood pressure Diastolic blood pressure Provider Name and Address Organization Details Last Updated DateTime 3 161.925 cm 22.5 kg/m2 66364.7 3 g 98.1 [degF] 16 /min 80 /min 94 mm[Hg] 50 mm[Hg] FELICIANO MUNGUIA RN [facility] 3 10:24:47 Date Recorded Body height Body mass index (BMI) Body weight Body temperature Respiratory rate Heart rate Systolic blood pressure Diastolic blood pressure Provider Name and Address Organization Details Last Updated DateTime 4 161.92 cm 22.5 kg/m2 81757.0 1 g 98.1 [degF] 16 /min 76 /min 90 mm[Hg] 46 mm[Hg] FELICIANO MUNGUIA RN [facility] 4 09:31:55 Date Recorded Body height Body mass index (BMI) Body weight Body temperature Oxygen saturation Oxygen saturation in Arterial blood by Pulse oximetry Heart rate Systolic blood pressure Diastolic blood pressure Provider Name and Address Organization Details Last Updated DateTime 4 161.92 cm 22.7 kg/m2 35809.6 g 98.6 [degF] 100 % 100 % 80 /min 104 mm[Hg] 50 mm[Hg] RAISA ARELLANO RN [facility] 4 10:07:23 Social History Question Answer Notes LastModified by Organizat ion Details LastModified Time Tobacco Smoking Status Never Smoker FELICIANO MUNGUIA RN null, [facility] 06/17/2023 10:29:17 Date Care Plan Printed: 10/02/2023 Information not available 10/02/2023 Assigned Financial Report Service Sales Agent: Francis Ring RN Information not available 10/02/2023 Is [facility] The Lead Financial Report Service Sales Agent? Yes Information not available 10/02/2023 Level Of Intensity: Quarterly Information not available 10/02/2023 Team Based Care: Yes Informat ion not available 10/02/2023 Hearing Barrier No Informati on not available 10/02/2023 Vision Barrier Yes Legally Blind Informa tion not available 10/02/2023 Social Barrier No Informatio n not available 10/02/2023 Medical Literacy No Informat ion not available 10/02/2023 Other Barriers To Care (See Note) No Information not available 10/02/2023 Learning Barrier No Informat ion not available 10/02/2023 Transportation Barrier Yes Information not available 10/02/2023 Financial Barrier Yes Neither Kailey Nor Her Can Work Due To Their Vision Information not available 10/02/2023 Behavioral Health No Informa tion not available 10/02/2023 Community Food Operations Manager Yes Information not available 10/02/2023 Dental Services No Informati on not available 10/02/2023 Diabetes Education Yes Information not available 10/02/2023 Food Resources Yes Informatio n not available 10/02/2023 Fuel Assistance No Informati on not available 10/02/2023 Hospice No Information not available 10/02/2023 Housing Yes Information not available 12/22/2023 Insurance Enrollment No Information not available 10/02/2023 Toll Settlement Clerk Care No Informatio n not available 10/02/2023 Meals On Wheels No Informati on not available 10/02/2023 Medication Assistance No Information not available 10/02/2023 Physical Activity Programs No Information not available 10/02/2023 Detention No Informati on not available 10/02/2023 Social Security/Disabili ty Yes Information not available 12/22/2023 Transportation Yes Informatio n not available 10/02/2023 Chronic Disease Management No Information not available 10/02/2023 Chronic Pain Management No Information not available 10/02/2023 Diabetes Prevention Program No Information not available 10/02/2023 Diabetes Self Management Program No Not Interested Information not available 10/02/2023 Diabetes Support Group No Not Interested Information not available 10/02/2023 Health Recycling Crew Supervisor For HTN Control No Information not available 10/02/2023 Tobacco Cessation No Informa tion not available 10/02/2023 Weight Loss Program No Information not available 10/02/2023 WRAP No Information not available 10/02/2023 AHS ([employer]) No Information not available 10/02/2023 Adult Protective Services No Information not available 10/02/2023 BAART No Information not available 10/02/2023 Community Behavioral Services No Information not available 10/02/2023 Community Restorative Justice No Information not available 10/02/2023 DCF No Information not available 10/02/2023 Department Of Labor No Information not available 10/02/2023 Economic Services No Informa tion not available 10/02/2023 EMS No Information not available 10/02/2023 [place] Support Services No Information not available 10/02/2023 [employer] No Information not available 10/02/2023 [facility] No Information not available 10/02/2023 NECKA Yes Information not available 10/02/2023 NEKYS No Information not available 10/02/2023 RCT Yes Information not available 10/02/2023 [facility] No Information not available 10/02/2023 [employer] No Information not available 10/02/2023 School Counselor No Informat ion not available 10/02/2023 School Nurse No Information not available 10/02/2023 Umbrella No Information not available 10/02/2023 [facility] No Information not available 10/02/2023 [place] [facility] No Information not available 10/02/2023 Development Rep On Aging No Informat ion not available 10/02/2023 Designated Agency No Informa tion not available 10/02/2023 Home Health Agency No Information not available 10/02/2023 Providers Yes Information not available 10/02/2023 [facility] No Information not available 10/02/2023 Other Support System No Information not available 10/02/2023 How Many Children Do You Have? 1 Information not available 12/22/2023 Do You Use Protection During Sex? No Information not available 12/22/2023 Do You Use Protection Against STDs? No Information not available 12/22/2023 What Is Your Relationship Status? Information not available 12/22/2023 Are You Sexually Active? Yes Information not available 12/22/2023 Do You Use Any Illicit Or Recreational Drugs? No Information not available 06/17/2023 What Contraceptive Method Was Reported At Start Of This Visit? None Information not available 12/22/2023 Do You Or Have You Ever Used Any Other Forms Of Tobacco Or Nicotine? No Information not available 06/17/2023 Do You Want To Talk About Contraception Or Prevention During Your Visit Today? No - This Question Does Not Apply To Me/I Prefer Not To Answer Information not available 12/22/2023 Do You Have Any Future Plans To Get ? No, I Don't Want To Become Information not available 12/22/2023 What Is Your Status? Not Information not available 12/22/2023 What Is Your Reason For Having No Contraceptive Method At Start Of This Visit? Sterile For Non-contrace ptive Reasons Information not available 12/22/2023 Sex: Female Functional Status None recorded. Mental Status None recorded. Family History Relationship Description Onset Age of this Age Resolved Age Notes Father Family history of he art failure Father Family history of di sorder of lung Father Family history of di abetes mellitus type 1 Brother Family history of di sorder of lung Notes:*Problem: mom - alive, history of blood clots in legs, cad dad - , asthmas, DM, cad 1 brother - healthy daughter - healthy Medical History No medical history recorded. Gynecological HistoryNo gynecological history recorded. Obstetrics History GPAL:G 0 P 0 0 0 0 Immunizations Vaccine Type Date Status Provider Name and Address Organization Details Recorded Time Td(adult) unspecified formulation 10/09/2014 completed Not Available formerly [facility] 06/12/2023 06:33:17 Influenza, split virus, trivalent, preservative 04/16/2016 completed Not Available formerly [facility] 06/12/2023 06:33:17 Influenza, split virus, quadrivalent, PF 05/21/2021 completed Not Available formerly [facility] 06/12/2023 06:33:17 Influenza, split virus, quadrivalent, preservative 05/17/2018 completed Not Available formerly [facility] 06/12/2023 06:33:17 SARS-COV-2 (COVID-19) vaccine, UNSPECIFIED 08/09/2021 completed Not Available formerly [facility] 06/12/2023 06:33:17 SARS-COV-2 (COVID-19) vaccine, UNSPECIFIED 12/17/2020 completed Not Available formerly [facility] 06/12/2023 06:33:17 SARS-COV-2 (COVID-19) vaccine, UNSPECIFIED 01/07/2021 completed Not Available formerly [facility] 06/12/2023 06:33:18 pneumococcal polysaccharide PPV23 12/22/2012 completed Not Available formerly [facility] 2022 06:33:18 influenza, unspecified formulation 05/23/2019 completed Not Available formerly [facility] 06/12/2023 06:33:18 Td(adult) unspecified formulation 10/09/2014 completed FELICIANO MUNGUIA [facility] [place] - [facility] 09/22/2023 14:43:22 Past Encounters Encounter ID Performer Location Encounter Start Date Encounter Closed Date Diagnosis/Indication Diagnosis SNOMED-CT Code Diagnosis ICD10 Code [id number] NAVIN PITTMAN PA-C [facility] [address] [place] [address] 06/17/2023 09:40:59 06/17/2023 10:57:50 Atherosclerosis of coronary artery without angina pectoris 1747083690 34807 I25.10 Chronic ki dney disease stage 1 611276076 N18.1 Hyperlipidemia 80339096 E78.5 Type 1 tio betes mellitus 72841477 E10.8 [id number] NAVIN PITTMAN PA-C [facility] [address] [place] [address] 09/25/2023 09:17:41 09/25/2023 10:04:19 Atherosclerosis of coronary artery without angina pectoris 6252682895 48873 I25.10 Chronic ki dney disease stage 1 665427225 N18.1 Type 1 tio betes mellitus 77570598 E10.8 [id number] NAVIN PITTMAN PA-C [facility] [address] [place] [address] 12/22/2023 09:20:52 12/22/2023 10:59:47 Atherosclerosis of coronary artery without angina pectoris 3794927427 24140 I25.10 Hyperlipidemia 76964126 E78.5 Type 1 tio betes mellitus 52564534 E10.8 Pain of left heel 124825 0111 174275 M79.672 Goals Section Goal Description Status Start Date LastModified by Organization Details LastModified Time I want to stay healthy. None Recorded Goal not achieved 10/02/19 24 [employer] Information not available 10/02/2023 15:40:29 I would like my blood sugars to be better controlle d, but it's hard None Recorded Goal not achieved 10/02/19 24 [employer]AC[employer] Information not available 12/22/2023 14:59:07 Health Concerns Section Related Observation LastModified by Organization Detai ls LastModified Time General health poor Not Available Not Available Not Av ailable Concern Status LastModified by Organization Details LastModified Time Type 1 diabetes mellitus Active [employer] Not Available 12/22/2023 14:5 9:07 Advance Directives Directive None Recorded Payers Encounter Date Sequence Insurance Name Policy Number Policy Cruz Covered Member ID Cruz Member ID Guarantor Name 06/17/2023 1 [place] [facility] Kailey Hernandez [id number] 1 Kailey Hernandez 06/17/2023 2 [facility] (MEDICAID) Kailey Hernandez [id number] Kailey Hernandez 09/25/2023 1 [place] [facility] Kailey Hernandez [id number] 1 Kailey Hernandez 09/25/2023 2 [facility] (MEDICAID) Kailey Hernandez [id number] Kailey Hernandez 12/22/2023 1 [place] [facility] Kailey Hernandez [id number] 1 Kailey Hernandez 12/22/2023 2 [facility] (MEDICAID) Kailey Hernandez [id number] Kailey Hernandez Notes Date Note Type Note Provider Name and Address Organization Details Recorded Time 06/17/2023 text/html HPI Notes: Kailey is here for followup of cad and diabetes. She has been feeling well. No recent illnesses. Less frequent hypoglycemic episodes but did experience some of these when she tried titrating basaglar above [address], [place], [address], [facility] 06/17/2023 13:24:22 09/25/2023 text/html HPI Notes: Jessy is here for follow-up of diabetes and coronary artery disease. She has been feeling at her baseline health. No recent significant hypoglycemic episodes. She has been referred by ENT to [facility] for consideration of left ear surgery to restore some hearing. Has upcoming follow-up with cardiology. Presented to the ER for a stomach bug last month. This has resolved. [address], [place], [address], [facility]. 09/25/2023 11:15:19 12/22/2023 text/html HPI Notes: Kailey is here for follow-up of type 1 diabetes, hyperlipidemia, and hypertension. She has been doing fairly well. She was recently seen in the ER for chest pain with unremarkable cardiac workup. She has not had any recurrence of the chest pain since. She has upcoming cardiology follow-up. It has been 2 years since her LA. Her blood sugars have been doing okay. Still gets occasional lows. It drops precipitously. Her significant other admits that he likely overcompensates for these hypoglycemic episodes. Currently having some left heel pain. Painful to put pressure on her heel. Her cascara bark cutter knows about this. [address], [place], [address], [facility]. 12/22/2023 12:27:24 OBGyn Episode No OBEpisode recorded.
--- OUTSIDE RECORDS SUMMARY | 2024-04-01 00:33 | XMS_ITS | Encounter Summary ---
Author Organization [facility] [place] [address] Care Team Providers Care Motorized Squad Captain Name Role Phone Jose Pittman Primary Care Provider [phone] Reason for Referral * Consultation (Routine) - Closed Specialty Diagnoses / Procedures Referred By Chip t Referred To Contact Cardiology Diagnoses Elevated troponin Elevated troponin Giselle Cervantes APRN [address] [place] [address] [facility] [address] [place] [phone] Referral ID Status Reason Start Date Expiration Date V isits Requested Visits Authorized [id number] Closed Consult, Test & Treat PCP Updated and/or Approved 01/30/2022 01/30/2023 6 6 Encounter Details Date Type Department Care Team (Late st Contact Info) Description 01/30/2022 Transcribe Orders eDH Incoming Referrals [phone] Giselle Cervantes APRN [address] [place], [place] [phone] Elevated troponin Social History Tobacco Use Types Packs/Day Years Used Date Smoking Tobacco: Never Smokeless Tobacco: Never Alcohol Use Standard Drinks/Week Comments Not Currently 0 (1 standard drink = 0.6 oz pur e alcohol) Sex and Gender Information Value Date Recorded Sex Assigned at Not on file Gender Identity Not on file Sexual Orientation Not on file documented as of this encounter Plan of Treatment Scheduled Referrals Name Type Priority Associated Diagnoses Order Schedule Referral to Cardiology Outpatient Referral Routine Elevated troponin Ordered: 01/30/2022 documented as of this encounter Visit Diagnoses Diagnosis Elevated troponin Other abnormal blood chemistry documented in this encounter Care Teams Motorized Squad Captain Relationship Specialty Start Date End Date Jose Pittman PA [address] [place] [address] PCP - General Internal Medicine 01/30/22 documented as of this encounter
--- OUTSIDE RECORDS SUMMARY | 2024-04-01 00:33 | XMS_ITS | Encounter Summary ---
Author Organization [facility] Address [facility] [place] [address] Care Team Providers Care Vice President Digital Strategist Name Role Phone Jose Pittman Primary Care Provider + [phone] Reason for Referral * Consultation (Routine) - Closed Specialty Diagnoses / Procedures Referred By Chip sebastian Referred To Contact Otolaryngology Diagnoses 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 of right ear Tiffanie Lucero APRN [address] [place] [address] [place] [address] Tj Gray MD [facility] [place] [address] Referral ID Status Reason Start Date Expiration Date V isits Requested Visits Authorized [id number] Closed Consult, Test & Treat PCP Updated and/or Approved 08/05/2023 01/02/2024 6 6 Encounter Details Date Type Department Care Team (Latest Contact Info) Description 08/11/2023 Transcribe Orders eDH Incoming Referrals [phone] Tiffanie Lucero APRN [address] [place] [address] [place], [place] [phone] 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 of right ear Social History Tobacco Use Types Packs/Day Years [...] Scheduled Referrals Name Type Priority Associated Diagnoses Orde r Schedule Referral to ENT Outpatient Referral Routine 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 of right ear Ordered: 08/11/2023 documented as of this encounter Visit Diagnoses Diagnosis 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 of right ear documented in this encounter Care Teams Vice President Digital Strategist Relationship Specialty Start Date End Date Jose Pittman PA [address] [place] [address] PCP - General Internal Medicine 01/30/22 documented as of this encounter
--- OUTSIDE RECORDS SUMMARY | 2024-04-01 00:33 | XMS_ITS | Encounter Summary ---
Author Organization Pending Sale To [facility] Address [facility] [place] [address] Care Team Providers Care Configuration Management Administrator Name Role Phone Felisha Juan APRN Primary Care Provider + [phone] Encounter Details Date Type Department Care Team (Late st Contact Info) Description 01/12/2022 Telephone Cardiology at [address] [place] [phone] Irving Alexander MD [facility] [place] [address] Social History Tobacco Use Types Packs/Day Years [...] encounter Miscellaneous Notes * Telephone Encounter - Irving Alexander MD - 01/12/2022 8:44 PM EDT Images from the original note were not included. 01/12/2022 Kailey Hernandez Initial Contact Date: 01/12/2022 Initial contact time: 8:44 PM Referring Provider: Dr. Wilcox Patient Location: [facility] Presenting Symptoms per OSH: Kailey Hernandez is a 46 y.o. 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 [place] [facility] [place] and is now s/p PCI with TRACIE x2 to RCA. Discharged on 01/06/22. Presents to [facility] with fatigue. - She feels fatigue and has malaise. She has intermittent fleeting chest pain when she wakes up in the morning but otherwise does not have pain throughout the day. No positional chest pain. Currentlychest pain free. - HsTrop 76 (60 is cut off) - EKG without significant ST changes Pertinent Diagnostic Findings: 98% on RA, 77 HR, 130/70 HsTrop 76 Plan: - She is grossly chest pain free and hemodynamically stable. I do not think that her symptoms are due to any acute changes due to her recent SD. She may have some side effects from her medication regimen (ie, BB) which may make her feel more fatigued. She has no positional chest pain symptoms and her troponin is likely on its way down from her recent STEMI. - They will check an additional EKG and troponin and then plan on discharge. All questions answered. Above recommendations were based on my discussion with Dr. Wilcox; I have not personally interviewedor examined this patient. Advised to call the transfer center back with any changes in the patient condition. Irving Alexander PGY5 Cardiology [id number] documented in this encounter Plan of Treatment Not on file documented as of this encounter Visit Diagnoses Not on filedocumented in this encounter Care Teams Configuration Management Administrator Relationship Specialty Start Date End Date Felisha Juan, DEMETRIS [address] [place] [address] PCP - General Family Medicine 10/29/15 01/29/22 documented as of this encounter
--- OUTSIDE RECORDS SUMMARY | 2024-04-01 00:33 | XMS_ITS | Clinical Summary ---
Author Organization [facility] Address [facility] [place] [address] Care Team Providers Care Product Consultant Name Role Phone Jose Pittman Primary Care Provider + [phone] Allergies Active Allergy Reactions Criticality Noted Date Comments Aspirin Medium 04/16/2018 SYNCOPE,RASH Other reaction(s): Sick to stomach Cephalexin High THROAT SWELLS Codeine Medium 04/16/2018 SYNCOPE,RASH Other reaction(s): Nausea Codeine Phosphate Fish Containing Products Shellfish Derived Medications Medication Sig Dispensed Refills Start Date End Date Status albuterol (PROVENTIL HFA;VENTOLIN HFA) 90 mcg/Actuation inhaler Inhale 2 puffs into the lungs every 4 hours as needed. Reported on 08/22/2016 Active GLUCAGON EMERGENCY KIT, HUMAN, 1 mg Kit Reported on 08/22/2016 3 05/09/2014 Active BD INSULIN PEN NEEDLE UF SHORT 31 X 5/16 Needle 11 04/05/2014 Active insulin aspart U-100 (NOVOLOG FLEXPEN U-100 INSULIN) Insulin PenIndications:Deanna betes mellitus without complication Inject 0-10 Units subcutaneously 3 times daily (before meals). ICD 10 Code: E10.3593 30 mL 2 03/04/2019 Active cholecalciferol, Vitamin D3, (Vitamin D3) 1,000 unit Tablet TAKE 1/2 TABLET BY MOUTH TWICE A DAYY 07/10/2020 Active blood sugar diagnostic strips StripIndications:C ontrolled type 1 diabetes mellitus with retinopathy of both eyes, macular edema presence unspecified, unspecified retinopathy severity Use 6 x a day 200 each 11 11/21/2020 Active aspirin 81 mg Tablet, Chewable Take 81 mg by mouth daily. 30 tablet 3 01/07/2022 Active atorvastatin (Lipitor) 80 mg Tablet Take 1 tablet by mouth every evening. 90 tablet 3 01/06/2022 Active clopidogreL (Plavix) 75 mg Tablet Take 1 tablet by mouth daily. 90 tablet 3 01/07/2022 Active Lantus Solostar U-100 Insulin 100 unit/mL (3 mL) pen Inject 10 Units subcutaneously daily. 3 mL 01/06/2022 Active metoprolol succinate XL (Toprol-XL) 50 mg Tablet Sustained Release 24 hr Take 1 tablet by mouth daily. 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 CIS - DISEASES OF NAIL NEC 01/11/2008 Immunizations Name Administration Dates Next Due Influenza Quadrivalent, Preservative Free 2018 Influenza Vaccine, Whole 06/17/2007 Social History Tobacco Use Types Packs/Day Years Used Date Smoking Tobacco: Never Smokeless Tobacco: Never Alcohol Use Standard Drinks/Week Comments Not Currently 0 (1 standard drink = 0.6 oz pur e alcohol) Sex and Gender Information Value Date Recorded Sex Assigned at Not on file Gender Identity Not on file Sexual Orientation Not on file Last Filed Vital Signs Vital Sign Reading Time Taken Comments Blood Pressure 109/73 01/06/2022 8:00 AM EDT Pulse 76 01/06/2022 8:00 AM EDT Temperature 37 ??C (98.6 ??F) 01/06/2022 8:00 AM EDT Respiratory Rate 16 01/06/2022 8:00 AM EDT Oxygen Saturation 98% 01/06/2022 8:00 AM EDT Inhaled Oxygen Concentration - - Weight 62.3 kg (137 lb 5.6 oz) 01/06/2022 4:00 A M EDT Height 165.1 cm (5' 5) 01/04/2022 1:15 AM EDT Body Mass Index 22.86 01/04/2022 1:15 AM EDT Plan of Treatment Health Maintenance Due Date Last Done Comments CT Colonography 1974 Colonoscopy 1974 Colorectal Cancer Screening 1974 FIT DNA 1974 FIT 1974 Sigmoidoscopy (10 year) with FIT yearly 1974 Sigmoidoscopy 1974 Pneumococcal Vaccine: At-Ris k 5-64yrs (1 of 2 - PCV) 1980 DM Opthalmology Exam 1984 HIV screen 1992 Hepatitis C Screening 1992 Hepatitis B vaccine (0-59 yrs) (1) 1993 Tdap adult 1993 Tetanus vaccine 1993 HPV test 2004 PAP Smear 2004 Breast Cancer Share Decision Needed 2014 Breast Cancer screening 2014 DM Urine Microalbumin yearly 09/29/2018 09/29/2017, 08/22/2016 DM Hemoglobin A1c 04/06/2022 01/04/2022, , 08/22/2016 DM Creatinine yearly 01/06/2023 01/06/2022, 01/05/2022, 01/04/2022 Covid-19 Vaccine (1 - season) 2023 Zoster vaccine (1 of 2) 2024 Influenza (Flu) vaccine (1 o f 1 - Influenza standard series) 04/03/2024 05/23/2019, 06/17/2007 Procedures Procedure Name Priority Date/Time Associated Diagnosis Comments BASIC METABOLIC PANEL Routine 01/06/2022 4:20 AM EDT HC HEMOGLOBIN A1C Routine 01/04/2022 12: 50 AM EDT U ALBUMIN/CRE RATIO Routine 09/29/2017 1 1:30 AM EST 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 from Last 3 Months or Most Recently Relevant to Health Maintenance Results * Basic Metabolic Panel (non-fasting) (01/06/2022 4:20 AM EDT) Glucose 123 65 - 199 mg/dL [facility] Comment:Diabetes: >=200 mg/d L plus symptoms Blood Urea Nitrogen 13 8 - 18 mg/dL [facility] Creatinine 0.77 0.70 - 1.20 mg/dL [facility] Sodium 137 135 - 145 mmol/L [facility] Potassium 4.0 3.5 - 5.0 mmol/L [facility] Comment: Please note: ??Patients with WBC >100,000 may have falsely elevated Potassium levels. ??For accurate Potassium quantification in these patients send serum separator tube (gold top) for subsequent determinations. ??Contact the Clinical Chemistry Laboratory if there are any questions. Chloride 102 98 - 107 mmol/L [facility] Carbon Dioxide 26 22 - 31 mmol/L [facility] Anion Gap 9 5 - 15 mmol/L [facility] Calcium 9.2 8.5 - 10.5 mg/dL [facility] Est Glomerular Filtration Rate 92 >=60 mL/min/1. 73 m?? [facility] Comment: This patient? s estimated glomerular filtration rate (eGFR) is between 92 mL/min/1.73 m2 (patients with less muscle mass) and 107 mL/min/1.73 m2 (patients with more muscle mass) as determined by the CKD-EPI equation. Assessment of eGFR is not appropriate when creatinine concentrations are rapidly changing. For clinical decisions where creatinine clearance will affect therapy, a 24-hour urine creatinine clearance may be advised. Assignment of CKD stage 1 - 5 for patients with an eGFR near the transition point between stages may be based on clinical assessment of muscle mass and symptoms in addition to eGFR. Blood 01/06/2022 4:20 AM EDT 01/06/2022 4:39 AM EDT Narrative Resulting Agency Comment Spec In Lab Ray Salomon MD CHEMISTRY ORDERABLES [facility] [place] [address] * (ABNORMAL) Hemoglobin A1c (01/04/2022 12:50 AM EDT) Hemoglobin A1c 8.0(H) 4.3 - 5.6 % [facility] Comment: Reference Range: 4.3 - 5.6% 5.7 - 6.4% - Increased Risk of Developing Diabetes Mellitus >= 6.5% - Consistent with diagnosis of Diabetes Mellitus In the absence of hyperglycemia (i.e. plasma glucose > 200 mg/dL) or classic symptoms of hyperglycemia a repeat measurement of HbA1c should be performed on a separate sample to confirm the diagnosis. Diagnosis and Classification of Diabetes Mellitus, Diabetes Care 2013; 36: Suppl. 1, O47-31 Estimated Average Glucose 183 mg/dL [facility] Comment: eAG equivalents for HbA1c percentages: HbA1c(%) ?eAG(mg/dL) 6.0 ?126 6.5 ?140 7.0 ?154 7.5 ?169 8.0 ?183 8.5 ?197 9.0 ?212 9.5 ?226 10.0 ? 240 Limitations: The eAG calculation has not been validated on women, individuals below 18 years old and above 70 years old, and individuals with hemoglobinopathies. Additional resources are available on the ADA website. Tj JESSICA, Mal J, Bk R, et al. ??Translating the A1C assay into estimated average glucose values. ??Diabetes Care 2008:31(8):3341-5050. Blood 01/04/2022 12:5 0 AM EDT 01/04/2022 1:24 AM EDT Narrative Resulting Agency Comment Spec In Lab Kane Ledezma MD CHEMISTRY ORDERABLES [facility] [place] [address] * U Albumin/Cre Ratio (09/29/2017 11:30 AM EST) Albumin / Creatinin Ratio, Urine 8 0 - 29 mcg/mg Cr [facility] Comment: Reference Ranges: <30 mcg/mg: Normal 30-300 mcg/mg: Moderately increased albuminuria.* >300 mcg/mg: Severely increased albuminuria. * ACEI or ARB recommended if diabetic; suggested if BP>130/80 without diabetes ACEI or ARB strongly recommended if diabetic; recommended if BP>130/80 without diabetes Two of three specimens collected within a 3 to 6 month period should be abnormal before considering a patient to have albuminuria. Transient causes: exercise, fever, infection, CHF, marked hyperglycemia or hypertension. Persistent albuminuria indicates CKD and is an independent risk factor for ASCVD. ADA Standards of Medical Care in Diabetes-2016; KDIGO: Kidney International Supplements (2012) 2, 357? 362 Albumin, Urine 3.3 mg/L [facility] Creatinine, Urine 42 mg/dL [facility] Urine specimen (specimen) 09/29/2017 11:30 AM EST 09/29/2017 11:40 AM EST Narrative Resulting Agency Comment Spec In Lab Francoise Tan APRN URINE ORDERABLES [facility] [place] [address] from Last 3 Months or Most Recently Relevant to Health Maintenance Advance Directives * Attempt Cardiopulmonary Resuscitation - Inpatient (Latest Code Status on File) Date Activated Date Inactivated Comments 01/03/2022 11:15 PM 01/06/2022 5:03 PM Question Answer Comments Code Status decision made by: Patient Care Teams Product Consultant Relationship Specialty Start Date End Date Jose Pittman PA [address] [facility] [address] [place] [address] PCP - General Internal Medicine 01/30/22
--- OUTSIDE RECORDS SUMMARY | 2024-04-01 00:34 | XMS_ITS | Encounter Summary ---
Author Organization [facility] Address [facility] [place] [address] Care Team Providers Care Impregnator And Drier Helper Name Role Phone Yessica Felisha LINE DRIVER Primary Care Provider [phone] Encounter Details Date Type Department Care Team (Late st Contact Info) Description 11/21/2020 Orders [place] [address] Carlos Ann MD [facility] [place] [address] Controlled type 1 diabetes mellitus with retinopathy of both eyes, macular edema presence unspecified, unspecified retinopathy severity Social History Tobacco Use Types Packs/Day Years Used Date Smoking Tobacco: Never Smokeless Tobacco: Never Sex and Gender Information Value Date Recorded Sex Assigned at Not on file Gender Identity Not on file Sexual Orientation Not on file documented as of this encounter Plan of Treatment Not on file documented as of this encounter Visit Diagnoses Diagnosis Controlled type 1 diabetes mellitus with retinopathy of both eyes, macular edema presence unspecified, unspecified retinopathy severity documented in this encounter Care Teams Impregnator And Drier Helper Relationship Specialty Start Date End Date Felisha Juan APRN [address] [place] [address] PCP - General Family Medicine 10/29/15 01/29/22 documented as of this encounter
--- OUTSIDE RECORDS SUMMARY | 2024-04-01 00:34 | XMS_ITS | Encounter Summary ---
Author Organization [facility] Address [facility] [place] [address] Care Team Providers Care Software Licensing Analyst Name Role Phone Carey Hall MD Primary Care Provider [phone] Reason for Visit * Reason Comments Diabetic Foot Care Encounter Details Date Type Department Care Team ([facility] Contact Info) Description 08/31/2014 10:00 AM EST Office Visit Podiatry at [address] [place] [address] Ritesh Mackey Jr., [address] [place] [address] Dermatophytosis of nail; Pain in extremity, unspecified extremity, unspecified laterality; DM w/o complication type II Social History Tobacco Use Types Packs/Day Years Used Date Smoking Tobacco: Never Smokeless Tobacco: Never Sex and Gender Information Value Date Recorded Sex Assigned at Not on file Gender Identity Not on file Sexual Orientation Not on file documented as of this encounter Last Filed Vital Signs Vital Sign Reading Time Taken Comments Blood Pressure - - Pulse - - Temperature - - Respiratory Rate - - Oxygen Saturation - - Inhaled Oxygen Concentration - - Weight 79.8 kg (176 lb) 08/31/2014 9:48 AM EST Height 162.6 cm (5' 4) 08/31/2014 9:48 AM EST Body Mass Index 30.21 08/31/2014 9:48 AM EST documented in this encounter Progress Notes * Ritesh Mackey Jr., MJ - 08/31/2014 9:56 AM EST Subjective: She presents to the clinic for care of severely thickened dsytrophic toenails. She complains of a significant amount of pain due to the thickness of the nails. Past Medical History: + Diabetes, Type II, Peripheral vascular disease Objectives: Thickened dystrophic toenails 1-5 bilateral. Each of the dystrophic nails are painful on palpation. Nails display clinical signs of [id number] in appearance, thickened greater than 2mm, Brittle with loosening off of the nail bed. No signs of infection. Assessment: Onychomycosis Plan: Consent received. Dystrophic nails were debrided without incident. Prior to debridement, nails prepped with etoh and prepped with etoh post debridement. Mechanical debridement was carried down to the point where further debridement would have caused bleeding. She will follow up in 10 weeks. Nails are now clearly mycotic and now clearly painful documented in this encounter Plan of Treatment Not on file documented as of this encounter Visit Diagnoses Diagnosis Dermatophytosis of nail Pain in extremity, unspecified extremity, unspecified laterality DM w/o complication type II Type II or unspecified type diabetes mellitus without mention of complication, not stated as uncontrolled documented in this encounter Care Teams Software Licensing Analyst Relationship Specialty Start Date End Date Carey Hall MD [address] [place] [address] PCP - General 06/25/10 10/28/15 documented as of this encounter
--- OUTSIDE RECORDS SUMMARY | 2024-04-01 00:34 | XMS_ITS | Encounter Summary ---
Author Organization [facility] Address [facility] [place] [address] Care Team Providers Care Shoe Packer Name Role Phone Felisha Juan APRN Primary Care Provider + [phone] Encounter Details Date Type Department Care Team ([facility] st Contact Info) Description 03/03/2016 Telephone [place] [id number] Akanksha Beltrán LPN Social History Tobacco Use Types Packs/Day Years Used Date Smoking Tobacco: Never Smokeless Tobacco: Never Sex and Gender Information Value Date Recorded Sex Assigned at Not on file Gender Identity Not on file Sexual Orientation Not on file documented as of this encounter Miscellaneous Notes * Telephone Encounter - Akanksha Beltrán LPN - 03/03/2016 3:31 PM EDT Images from the original note were not included. Kailey Hernandez?? Female, 40 y.o., 1975 Weight: 60.3 kg (133 lb) Home: PCP: Felisha Juan APRN myD-H: Code Exp Next Appt: 04/18/2016 ?? Message Received: Today ? Rosie Tao MD Isham, Gail, LPN ? Caller: Unspecified (Today, ??2:24 PM) ? Continue novolog based on ??carbs at a ratio of 1:10 g and correct for BG > 150 based on ISF 1:25. New rx sent for novolog ? Previous Messages ?? ----- Message ----- ? From: Akanksha Beltrán LPN ? Sent: 03/03/2016 ?? 2:27 PM Message left on Chary's v/m that about message will be faxed to her. Confirmation on fax received. * Telephone Encounter - Akanksha Beltrán LPN - 03/03/2016 2:24 PM EDT Message on endo nurse line from Chary Boyd at [facility]. Insurance will not cover humalog will cover Novolog. Okay to switch with dosing is needed. ext [phone] documented in this encounter Plan of Treatment Not on file documented as of this encounter Visit Diagnoses Not on filedocumented in this encounter Care Teams Shoe Packer Relationship Specialty Start Date End Date Felisha Juan, DEMETRIS [address] [place] [address] PCP - General Family Medicine 10/29/15 01/29/22 documented as of this encounter
--- OUTSIDE RECORDS SUMMARY | 2024-04-01 00:34 | XMS_ITS | Encounter Summary ---
Author Organization [facility] [place] [address] Care Team Providers Care Bioinformatics Team Member Name Role Phone Yessica Felisha WILLSON Primary Care Provider + [phone] Reason for Visit * Reason Onset Date Comments Pump/sensor 02/07/2021 Encounter Details Date Type Department Care Team (Late st Contact Info) Description 02/07/2021 Telephone [place] [phone] Tosin Solares Pump/sensor Social History Tobacco Use Types Packs/Day Years Used Date Smoking Tobacco: Never Smokeless Tobacco: Never Sex and Gender Information Value Date Recorded Sex Assigned at Not on file Gender Identity Not on file Sexual Orientation Not on file documented as of this encounter Miscellaneous Notes * Telephone Encounter - Tosin Solares - 02/07/2021 7:32 AM EDT Documentation request received from [facility]. 11/13/20 office notes routed Confirmed 02/07 documented in this encounter Plan of Treatment Not on file documented as of this encounter Visit Diagnoses Not on filedocumented in this encounter Care Teams Bioinformatics Team Member Relationship Specialty Start Date End Date Felisha Juan APRN [address] [place] [address] PCP - General Family Medicine 10/29/15 01/29/22 documented as of this encounter
--- OUTSIDE RECORDS SUMMARY | 2024-04-01 00:34 | XMS_ITS | Encounter Summary ---
Author Organization [facility] Address [facility] [place] [address] Care Team Providers Care Instrument Tester Name Role Phone Felisha Juan APRN Primary Care Provider + [phone] Reason for Visit * Reason Comments Diabetes * Consultation (Routine) - Closed Specialty Diagnoses / Procedures Referred By Contdelmi t Referred To Contact Endocrinology Diagnoses Diabetes Mellitus Type 1, uncontrolled w/ Ophthalmic comps Felisha Juan APRN [address] [place] [address] [facility] Endocrinology [address] [place] [id number] Referral ID Status Reason Start Date Expiration Date V isits Requested Visits Authorized [id number] Closed Consult, [facility] 10/29/2015 10/28/2016 1 1 Encounter Details Date Type Department Care Team (Late st Contact Info) Description 12/11/2015 9:30 AM EDT Office Visit [place] [address] Olegario Wright DO [facility] [place] [address] Rosie Tao MD [facility] [place] [address] Type 1 diabetes mellitus with diabetic retinopathy, macular edema presence unspecified, unspecified retinopathy severity Social History Tobacco Use Types Packs/Day Years Used Date Smoking Tobacco: Never Smokeless Tobacco: Never Sex and Gender Information Value Date Recorded Sex Assigned at Not on file Gender Identity Not on file Sexual Orientation Not on file documented as of this encounter Last Filed Vital Signs Vital Sign Reading Time Taken Comments Blood Pressure 110/60 12/11/2015 9:08 AM EDT Pulse 84 12/11/2015 9:08 AM EDT Temperature - - Respiratory Rate - - Oxygen Saturation - - Inhaled Oxygen Concentration - - Weight 60.3 kg (133 lb) 12/11/2015 9:08 AM EDT Height 162.6 cm (5' 4) 12/11/2015 9:08 AM EDT Body Mass Index 22.83 12/11/2015 9:08 AM EDT documented in this encounter Patient Instructions * Patient Instructions* Rosie Tao MD - 12/11/2015 10:59 AM EDT Tonight reduce lantus to 10 units From tomorrow, start using lantus 35 units at 7 am Check fasting BG, target BG 90-150. Use insulin for carb 1 units for 10 g carb Use new sliding scale for correction of BG > 150 before meals dont correct at bedtime 4 weeks scan and send me BG log Insulin Discharge Instructions . Instructions for Lantus Insulin (LONG ACTING) 1. Inject LANTUS 35 units insulin every 7 am. Check blood glucose (BG) before breakfast 2. If the blood glucose before breakfast is under 90 for two days in a row, subtract TWO units of insulin from the next LANTUS dose. This lower dose becomes your new dose, continue to decrease as needed. Treatment of Low Blood Sugar (Hypoglycemia) If your BG is lower than 80, you are likely to feel shaky, sweaty and lightheaded. This is a signalthat your body needs more sugar. Quickly eat or drink a small serving of something sweet, such as: 4 ounces fruit juice or regular (not diet) soda 6 lifesavers small box of raisins 4 glucose tablets (~15 gm of glucose) If your BG is very low <50, you can double the amount above or take 30 gm of glucose gel/tablets. Sit and rest and you should feel better within a few minutes. Once you are feeling better, try to determine why your BG was so low. Common causes of hypoglycemia include skipping a meal, lots of exercise, too much insulin or any combination of these things. Understanding the cause my help you to avoid another low BG in the future. Call your doctor for blood sugars less than 80 or greater than 300 twice in one day to have your insulin doses adjusted. [facility] office documented in this encounter Progress Notes * Olegario Wright DO - 12/18/2015 3:49 PM EDT I have seen the patient and reviewed Dr Tao's history and I agree with the details as written. The assessment and plan were formulated in discussion with me and I agree with them as documented. Olegario Wright DO, [place] Staff General Machinist * Rosie Tao MD - 12/10/2015 1:32 PM EDT Diabetes Outpatient Consult Date of Consultation: 12/10/2015 Consult Requested by: Dr. Juan Reason for Consultation: Kailey Hernandez is a 40 y.o. years old female with PMH significant for DM .We are being consulted to assist with diabetes management and to provide a review of long term care phlebotomist diabetes care. Diabetes History: Kailey Hernandez has had diabetes Type 1 since age 7 years. When initially diagnosed, she was extremely fatigued, had polyuria, weight loss, and polydypsia. She was followed by an grades 1 [address]- [address] Hernandez in [place], [place]. She is here for establishment of care since she has moved to [facility]. She currently used lantus and a custom mod-resistant sliding scale TID AC. 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 She does not do insulin for carbs due to low BG in an hour- has gone down to 30's -40's when she used I:C of 1:5. Her current wt is 60 kg which has been stable. Current outpatient diabetes regimen: Medications: Basal: Lantus 26 u (q 7 am ) and Lantus 18 u q pm Bolus: Humalog moderate- resistant sliding scale TID AC ( upto 28-30 units/day) Kailey checks 6 times daily, her typical routine and diet is as below Insulin regimen/ BG check and dietary recall Breakfast (3 am) - Fasting 2 pieces of toast, coffee. Gives humalog per SS Snack ( 7 am) Checks BG and gives lantus. No humalog Lunch ( 11 am) Checks BG, gives humalog before eating Leftovers, mashed potato, hot dog Snack- (2 pm) Has crackers, cheese. Covers with humalog. Dinner ( 6p). Covers with humalog Bedtime- (8p) Takes lantus 18 units QHS. No humalog BG monitoring Fasting- [phone] Before snack- [phone] Before lunch- 216 227 Before snack- 248 56 Before dinner- 167 204 Bedtime- 117 258 Monitoring is done 6 times a day Most recent HA1c was done on 06/2015 and was 9.1%, suggesting an average glucose of 217 mg/dL for the past 6-8 weeks. Typical exercise regimen : none Trouble with hypoglycemia: yes, as in HPI Diabetes Complications Status: Eyes: type 1 DM, retinopathy, right eye blindness S/p laser to both eyes Last visit - 1 year Kidneys: None Feet: None Sensory: Neuropathy Autonomic: None Cardiac: None ROS: (+) for as per HPI (-) for Constitutional: No recent weight change Endocrine: No thyroid problems Eyes: No recent vision change ENT: No dysphagia, dental issues Cardiovascular: No chest pain Respiratory: No wheezing , shortness of breath GI: No nausea, vomiting, diarrhea, constipation : No frequent urinary tract infections Neurological: No weakness or numbness PMH DMtype 1 Neurogenic bladder DUB s/p hysterectomy Allergy: Allergies Allergen Reactions ??? Cephalexin THROAT SWELLS ??? Aspirin SYNCOPE,RASH ??? Codeine SYNCOPE,RASH ??? Codeine Phosphate ??? Fish Containing Products ??? Shellfish Derived Social history: History Substance Use Topics ??? Smoking status: Never Smoker ??? Smokeless tobacco: Never Used ??? Alcohol Use: Not on file Family history: Neg for DM Vitals Filed Vitals: 12/11/15 0908 BP: 110/60 Pulse: 84 Physical Exam: NAD, very pleasant, BMI-22.9, thin appearing woman, looks younger than stated age Fundoscopy- challenging, but can appreciate laser scars S1S2+ Lungs CTAB Abd soft NT/ND- area of induration in left lower quadrant. No LE edema Feet- absent monofilament and vibration sense upto lower chaidez. Pulses 2+ symmetric + oncychomycosis Labs: 06/2015 A1C- 9.1 Assessment: Patient is a 40 y.o. years old female with PMH significant for DM (Last A1C of 9.1) who presents for diabetes management. Diabetes suboptimally controlled and complicated by hypoglycemia unawareness. Kailey's regimen is a total of 70 units of insulin daily of which humalog is 25 units ( 35 %) and lantus is 44 units ( 65 %). Her basal regimen is not her true basal ( would expect lower basal requirements close to 12-15 units based on her weight) and hence her basal is being used to cover her bolusneeds. This may be related to her inability to use prandial insulin for carbs as her sliding scale was too resistant and the combination caused post prandial hypoglycemia. Based on her total daily insulin, her 1:C is close to 1:8 and ISF of 1:25. We will cut back her lantus by 20 % to total 35 units daily and she will stop split dosing and start 35 units kevan at 7 am. Today she will cut back night lantus to 10 units from 18 units. She will start using insulin for carbs at a ratio of 1:10 g and correct for BG > 150 based on ISF 1:25. Plan: 1. Lantus 35 units q7 AM to start kevan. Goal BG 90-150. 2. Meal-associated Novolog 1unit: 10 gm carb ratio for each meal) 3. Novolog custom Sensitive sliding scale for BG>150 71 to 84 take -2 Less units 85 to 99 take -1 Less units 110 to 149 take No Extra Insulin 150 to 189 take +1 units 190 to 229 take +2 units 230 to 269 take +3 units 270 to 309 take +4 units 310 to 349 take +5 units 350 to 389 take +6 units 390 to 429 take +7 units 430 to 469 take +8 units 470 to 509 take +9 units 4. Pt to email me BG log in 4 weeks, RTC in 4 months emt intermediate diabetes care: Medications - Outpatient treatment regimen recommendations pending based on the hospital course. Monitoring - continue BG tid ac & hs Diet - low fat/low carb diet Exercise - weight-bearing exercise 30 min/day, as tolerated Thank you for the consult D/w Dr Adriana Tao MD Endocrine Fellow Pager- [phone] Insulin Discharge Instructions . Instructions for Lantus Insulin (LONG ACTING) 1. Inject LANTUS 35 units insulin every 7 am. Check blood glucose (BG) before breakfast 2. If the blood glucose before breakfast is under 90 for two days in a row, subtract TWO units of insulin from the next LANTUS dose. This lower dose becomes your new dose, continue to decrease as needed. Treatment of Low Blood Sugar (Hypoglycemia) If your BG is lower than 80, you are likely to feel shaky, sweaty and lightheaded. This is a signalthat your body needs more sugar. Quickly eat or drink a small serving of something sweet, such as: 4 ounces fruit juice or regular (not diet) soda 6 lifesavers small box of raisins 4 glucose tablets (~15 gm of glucose) If your BG is very low <50, you can double the amount above or take 30 gm of glucose gel/tablets. Sit and rest and you should feel better within a few minutes. Once you are feeling better, try to determine why your BG was so low. Common causes of hypoglycemia include skipping a meal, lots of exercise, too much insulin or any combination of these things. Understanding the cause my help you to avoid another low BG in the future. Call your doctor for blood sugars less than 80 or greater than 300 twice in one day to have your insulin doses adjusted. [facility] [place] [place] documented in this encounter Plan of Treatment Not on file documented as of this encounter Results * Microalbumin, urine, random (08/22/2016 9:06 AM EST) Pathologist [facility] Albumin / Creatinin Ratio, Urine 17 0 - 29 mcg/mg Cr [facility] Comment: Reference Ranges: <30 mcg/mg: [...] Supplements (2012) 2, 357? 362 Albumin, Urine 12.4 mg/L [facility] Creatinine, Urine 75 mg/dL [facility] Urine specimen (specimen) 08/22/2016 9:06 AM EST 08/22/2016 9:20 AM EST Narrative Resulting Agency Comment Spec In Lab Olegario Wright DO URINE ORDERABLES [facility] [place] [address] * Lipid panel (fasting) (08/22/2016 8:51 AM EST) Cholesterol, Total 129 <=239 mg/dL [facility] Triglyceride 56 <=199 mg/dL [facility] HDL Cholesterol 55 >=40 mg/dL [facility] LDL Cholesterol 63 <=190 mg/dL [facility] Cholesterol/HDL Ratio 2.3 ratio [facility] Lipid Interpretation See Note [facility] Comment: Lipid management should be guided by a patient? s ASCVD risk, goals and preferences. ACC/AHA Guidelines recommend high intensity statin if clinical ASCVD or LDL greater than or equal to 190 mg/dL. http://circ.ahajournals.org/content/early/.cir.5376452262.00020.7a Adults aged 40-75 with LDL 70-189 mg/dL should have their 10 year ASCVD risk estimated with the ACC/AHA ASCVD risk shop estimator http://tools.acc.org/LNGBG-Esjg-Qixampmqo/ Statin should be discussed if risk greater than or equal to 7.5% in non-diabetics. With diabetes, moderate intensity statin is recommended if risk less than 7.5%, high intensity if risk greater than or equal to 7.5%. Annual lipid monitoring on statins is not necessary. Evaluate secondary causes of Triglycerides greater than 500 mg/dL or LDL greater than 190 mg/dL: See table 6 of ACC/AHA Guideline. Lifestyle modification is a critical component of ASCVD risk reduction. Blood specimen (specimen) 08/22/2016 8:51 AM EST 08/22/2016 8:58 AM EST Narrative Resulting Agency Comment Spec In Lab Olegario Wright DO CHEMISTRY ORDERABLES [facility] [place] [address] * (ABNORMAL) Hemoglobin A1c (08/22/2016 8:51 AM EST) Hemoglobin A1c 7.4(H) 4.3 - 5.6 % [facility] Comment: Reference Range: 4.3 - [...] Mellitus, Diabetes Care 2013; 36: Suppl. 1, D97-41 Estimated Average Glucose 166 mg/dL [facility] Comment: eAG equivalents for HbA1c percentages: HbA1c(%) ?eAG(mg/dL) 6.0 ?126 6.5 ?140 7.0 ?154 7.5 ?169 8.0 ?183 8.5 ?197 9.0 ?212 9.5 ?226 10.0 ? 240 Limitations: The eAG calculation has not been validated on women, individuals below 18 years old and above 70 years old, and individuals with hemoglobinopathies. Additional resources are available on the ADA website: http://Intrallect.Sensorion/DHMCadacalc Tj JESSICA, Mal J, Bk R, et al. ??Translating the A1C assay into estimated average glucose values. ??Diabetes Care 2008:31(8):0670-5085. Blood specimen (specimen) 08/22/2016 8:51 AM EST 08/22/2016 8:58 AM EST Narrative Resulting Agency Comment Spec In Lab Olegario Wright DO CHEMISTRY ORDERABLES Performing Organization Address City/State/[facility] Co de Phone Number [facility] [place] [address] documented in this encounter Visit Diagnoses Diagnosis Type 1 diabetes mellitus with diabetic retinopathy, macular edema presence unspecified, unspecified retinopathy severity documented in this encounter Care Teams Instrument Tester Relationship Specialty Start Date End Date Felisha Juan APRN [address] [place] [address] PCP - General Family Medicine 10/29/15 01/29/22 documented as of this encounter
--- OUTSIDE RECORDS SUMMARY | 2024-04-01 00:34 | XMS_ITS | Encounter Summary ---
Author Organization [facility] Address [facility] [place] [address] Care Team Providers Care Machine Coremaker Name Role Phone Felisha Juan DEMETRIS Primary Care Provider + [phone] Encounter Details Date Type Department Care Team (Latest Contact Info) Description 05/23/2019 8:30 AM EDT Office Visit [place] [address] Francoise Tan APRN [facility] 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 Social History Tobacco Use Types Packs/Day Years Used Date Smoking Tobacco: Never Smokeless Tobacco: Never Sex and Gender Information Value Date Recorded Sex Assigned at Not on file Gender Identity Not on file Sexual Orientation Not on file documented as of this encounter Last Filed Vital Signs Vital Sign Reading Time Taken Comments Blood Pressure 123/64 05/23/2019 8:13 AM EDT Pulse 92 05/23/2019 8:13 AM EDT Temperature - - Respiratory Rate - - Oxygen Saturation - - Inhaled Oxygen Concentration - - Weight 65.4 kg (144 lb 3.2 oz) 05/23/2019 8:13 A M EDT Height 162.6 cm (5' 4) 05/23/2019 8:13 AM EDT Body Mass Index 24.75 05/23/2019 8:13 AM EDT documented in this encounter Patient Instructions * Patient Instructions* Francoise Tan APRN - 05/23/2019 8:30 AM EDT Vit D daily Schedule eye appointment documented in this encounter Progress Notes * Francoise Tan APRN - 05/23/2019 8:30 AM EDT Office visit note for Kailey Hernandez. Date of visit 05/23/2019 Reason for visit: Follow-up type I DM with complications. Brief history: Discusses some very high stress at the house she is living in. Her significant other's father has memory loss and anger issues Date of diagnosis of diabetes: At age 7 Complications: Retinopathy, neuropathy SBGM: 6 times a day. Reason for higher frequency testing is to avoid severe hypoglycemia and avoid severe hyperglycemia. She uses FilmBreak talking meter. Diabetes regimen: Basaglar 22 units in a.m. NovoLog FlexPen up to 11 units before meals 3 times a day Review of systems: All 12 systems reviewed and and negative except as noted in history Physical exam: Appearance: She appears in good health. Has no upper teeth. Blood pressure 123/64. Weight 144 pounds. Eyes: Scars noted with greenlight exam. Neck: No thyromegaly or lymphadenopathy. Heart: Regular rate and rhythm. Lungs are clear to auscultation. Feet: Skin is normal, pulses are present. Neuro: Decreased sensation to 10 G's of pressure She agrees to go to the lab after the appointment for hemoglobin A1c, TSH, HDL, D LDL, microalbumin Impression and plan: DM type I with complications of retinopathy and neuropathy. No change in regimen. Informed of availability of nasal glucagon powder. Retinopathy: She states she has had visits from the [employer] and there are no other devices that can help enhance her vision. She plans to return to office in 1 year. Will recheck the labs that were checked today. Flu vaccine was given. Advised to check with PCP office if she had had pneumococcal 23 vaccine. This was a 38-minute office visit with 28 minutes spent counseling [id number] with patient in themanagement of glucose levels, reviewing prevention and treatment of hypoglycemia. She does rotate her injection sites. documented in this encounter Plan of Treatment Not on file documented as of this encounter Visit Diagnoses Diagnosis 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 documented in this encounter Care Teams Machine Coremaker Relationship Specialty Start Date End Date Felisha Juan, POLE INCISOR OPERATOR [address] [place] [address] PCP - General Family Medicine 10/29/15 01/29/22 documented as of this encounter
--- OUTSIDE RECORDS SUMMARY | 2024-04-01 00:34 | XMS_ITS | Encounter Summary ---
Author Organization [facility] Address [facility] [place] [address] Care Team Providers Care Licensed Sales Producer Name Role Phone Yessica Felisha EMPLOYMENT TRAINING SPECIALIST Primary Care Provider Encounter Details Date Type Department Care Team (Late st Contact Info) Description 01/03/2022 External [place] [address] Social History Tobacco Use Types Packs/Day Years [...] Date/Time Associated Diagnosis Comments ECG SCAN Routine 01/03/2022 documented in this encounter Results * Scan Doc: ECG (01/03/2022) Historical Provider MD DOMÍNGUEZ MGR SCAN EX T ORDR/RSLT documented in this encounter Visit Diagnoses Not on filedocumented in this encounter Care Teams Licensed Sales Producer Relationship Specialty Start Date End Date Felisha Juan APRN [address] [place] [address] PCP - General Family Medicine 10/29/15 01/29/22 documented as of this encounter
--- OUTSIDE RECORDS SUMMARY | 2024-04-01 00:34 | XMS_ITS | Encounter Summary ---
Author Organization [facility] Address [facility] [place] [address] Care Team Providers Care Web Analyst Name Role Phone Felisha Juan APRN Primary Care Provider [phone] Reason for Visit * Reason Onset Date Comments Medication Refill 10/09/2020 Encounter Details Date Type Department Care Team (Late st Contact Info) Description 10/09/2020 [place] [address] Breana Tee MD [facility] [place] [address] Controlled type 1 diabetes mellitus with retinopathy [...] encounter Miscellaneous Notes * Telephone Encounter - Tisha Mccarty - 10/09/2020 8:24 AM EST Script needs to go Iconfinder [id number] [facility] Office [address] [place] [address] Patient test 6 times daily Transfer from previous [facility] Provider documented in this encounter Plan of Treatment Not on file documented as of this encounter Visit Diagnoses Diagnosis Controlled type 1 diabetes mellitus with retinopathy of both eyes, macular edema presence unspecified, unspecified retinopathy severity documented in this encounter Care Teams Web Analyst Relationship Specialty Start Date End Date Felisha Juan APRN [address] [place] [address] PCP - General Family Medicine 10/29/15 01/29/22 documented as of this encounter
--- OUTSIDE RECORDS SUMMARY | 2024-04-01 00:34 | XMS_ITS | Encounter Summary ---
Author Organization [facility] [place] [address] Care Team Providers Care Shot Man Name Role Phone Felisha Juan APRN Primary Care Provider + [phone] Encounter Details Date Type Department Care Team (Late st Contact Info) Description 08/04/2017 Telephone [place] [id number] Danielle Trejo, RN Social History Tobacco Use Types Packs/Day Years Used Date Smoking Tobacco: Never Smokeless Tobacco: Never Sex and Gender Information Value Date Recorded Sex Assigned at Not on file Gender Identity Not on file Sexual Orientation Not on file documented as of this encounter Miscellaneous Notes * Telephone Encounter - Danielle Trejo, RN - 08/04/2017 8:53 AM EST FAXED Physician's Request for Diabetic Shoes to Medicare. documented in this encounter Plan of Treatment Not on file documented as of this encounter Visit Diagnoses Not on filedocumented in this encounter Care Teams Shot Man Relationship Specialty Start Date End Date Felisha Juan APRN [address] [place] [address] PCP - General Family Medicine 10/29/15 01/29/22 documented as of this encounter
--- OUTSIDE RECORDS SUMMARY | 2024-04-01 00:34 | XMS_ITS | Encounter Summary ---
Author Organization [facility] Address [facility] [place] [address] Care Team Providers Care Software Engineering Manager Name Role Phone Felisha Juan APRN Primary Care Provider + [phone] Reason for Visit * Reason Onset Date Comments Medication Problem 11/19/2020 Encounter Details Date Type Department Care Team (Late st Contact Info) Description 11/19/2020 Telephone [place] [address] Carlos Ann MD [facility] [place] [address] Medication Problem Social History Tobacco Use Types Packs/Day Years Used Date Smoking Tobacco: Never Smokeless Tobacco: Never Sex and Gender Information Value Date Recorded Sex Assigned at Not on file Gender Identity Not on file Sexual Orientation Not on file documented as of this encounter Miscellaneous Notes * Telephone Encounter - Brandie Perez - 11/19/2020 12:43 PM EDT Delano called stating the blood sugar diagnostic strips were sent to the wrong pharmacy and he asked to have them sent to [facility] instead. Delano stated the phone number to [facility] is [phone]. Please call Delano with any questions . * Telephone Encounter - Brandie Perez - 11/19/2020 12:43 PM EDT Delano called back about this and stated the test strips were wrong as well. He stated the strips should be a prodigy test strip since pt has a prodigy auto code device documented in this encounter Plan of Treatment Not on file documented as of this encounter Visit Diagnoses Not on filedocumented in this encounter Care Teams Software Engineering Manager Relationship Specialty Start Date End Date Felisha Juan, DEMETRIS [address] [place] [address] PCP - General Family Medicine 10/29/15 01/29/22 documented as of this encounter
--- OUTSIDE RECORDS SUMMARY | 2024-04-01 00:34 | XMS_ITS | Encounter Summary ---
Author Organization [facility] Address [facility] [place] [address] Care Team Providers Care Manager Strategic Marketing Name Role Phone Felisha Juan APRN Primary Care Provider [phone] Encounter Details Date Type Department Care Team (Late st Contact Info) Description 01/03/2022 [place] [address] Madi Briceño MD [facility] [place] [address] Social History Tobacco Use Types Packs/Day Years Used Date Smoking Tobacco: Never Smokeless Tobacco: Never Sex and Gender Information Value Date Recorded Sex Assigned at Not on file Gender Identity Not on file Sexual Orientation Not on file documented as of this encounter Progress Notes * Madi Briceño MD - 01/03/2022 8:32 PM EDT * Madi Briceño MD - 01/03/2022 8:32 PM EDT documented in this encounter Plan of Treatment Not on file documented as of this encounter Visit Diagnoses Not on filedocumented in this encounter Care Teams Manager Strategic Marketing Relationship Specialty Start Date End Date Felisha Juan APRN [phone] [place] [address] PCP - General Family Medicine 10/29/15 01/29/22 documented as of this encounter
--- OUTSIDE RECORDS SUMMARY | 2024-04-01 00:34 | XMS_ITS | Encounter Summary ---
Author Organization [facility] Address [facility] [place] [address] Care Team Providers Care Business Developer Name Role Phone Felisha Juan APRN Primary Care Provider [phone] Reason for Referral * Consultation (Routine) - Closed Specialty Diagnoses / Procedures Referred By Contact Referred To Contact Cardiac Rehabilitation Diagnoses ST elevation myocardial infarction involving right coronary artery Marc Bowles MD [facility] [place] [address] Cardiac Rehab, [address] [address] Referral ID Status Reason Start Date Expiration Date V isits Requested Visits Authorized [id number] Closed Consult, Test & Treat 01/06/2022 01/06/2023 36 36 * Consultation (Routine) - Closed Specialty Diagnoses / Procedures Referred By Contac t Referred To Contact Diagnoses ST elevation myocardial infarction involving right coronary artery Marc Bowles MD [facility] [place] [address] [place], [place] Referral ID Status Reason Start Date Expiration Date V isits Requested Visits Authorized [id number] Closed Consult, Test & Treat 01/06/2022 07/05/2022 1 1 Reason for Visit * Auth/Cert Specialty Diagnoses / Procedures Referred By Contac t Referred To Contact Diagnoses STEMI (ST elevation myocardial infarction) STEMI Procedures CARDIAC CATHETERIZATION Geraldo Salomon MD [facility] [place] [address] [facility] Referral ID Status Reason Start Date Expiration Date Visits Re quested Visits Authorized [id number] 1 1 Encounter Details Date Type Department Care Team (Latest Contact Info) Description 01/03/2022 10:19 PM EDT - 01/06/2022 3:03 PM EDT Hospital [place] [id number] Moi Ledezma MD [facility] [place] [address] Geraldo Salomon MD [facility] [place] [address] ST elevation myocardial infarction involving right coronary artery Discharge Disposition: Home Social History Tobacco Use Types Packs/Day Years [...] Mass Index 22.86 01/04/2022 1:15 AM EDT documented in this encounter Discharge Summaries * Cam David MD - 01/04/2022 12:09 PM EDT Discharge Summary Patient Name: Afua Rosales Patient Age: 46 y.o. Language: Belizean Race: White Ethnicity: Not nor Admit date: 01/03/2022 Discharge date and time: 01/06/2022 Attending Physician: Geraldo Salomon MD Discharge Physician: Geraldo Salomon MD ID: Afua Rosales is a 46 y.o. 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 She presents with inferior STEMI and is now s/p PCI with TRACIE x2 to RCA. Follow-up Recommendations for Providers: Patient will need up titration of GDMT as tolerated in the outpatient setting. Patient was not started on ACEI/ARB due to softer blood pressures. Patient will need follow up with cardiology at [facility] as well as to establish care. Patient will alsoneed cardiac rehab follow up. #[place] Med Changes: Started: - metoprolol succinate 50 mg daily - Aspirin 81 mg daily - Clopidogrel 75 mg daily - Atorvastatin 80mg daily Pending Studies and Lab Data: none No current labs Discharge Diagnoses (Hospital Problems) and Secondary Diagnoses (Chronic Problems): Active Hospital Problems Diagnosis ??? STEMI (ST elevation myocardial infarction) Resolved Hospital Problems No resolved problems to display. Active Non-Hospital Problems Diagnosis ??? Dermatophytosis of nail ??? Pain in limb ??? 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 Other specified disease of nail ??? CIS - Onychauxis ??? CIS - DISEASES OF NAIL NEC History of Presentation (per 01/03/2022 Admission H&P): History per patient, med rec per the patient's significant other ([place]) ?? The patient was in her usual state of health until yesterday evening. While watching a movie with her family, she arose to go to her bedroom, but had sudden onset of malaise. Her significant other and daughter found her feeling unwell and less responsive in her bedroom, they assumed she was hypoglycemic and gave her orange juice (although glucometer showed normal blood glucose). She then walkedto the bathroom, where she developed chest pain, generalized abdominal pain, nausea and vomiting. They called EMS, EKG in the field showed inferior STEMI. She refused aspirin load from EMS because aspirin has previously made her nauseous. ?? On arrival to [facility], she was afebrile, BP was 95/54, she was oxygenating normally on room air. She was infused with 1L IV fluids, given 25 mg of aspirin (per [facility] discharge note). The on-call corn husker machine operator at [facility] was contacted, she was given 300 mg of Plavix, aspirin, heparin with bolus and drip. She was also given tecteplase 35mg. ?? On arrival to [facility] calibration laboratory technician, she underwent LHC and received TRACIE x2 to the RCA. During the procedure, the ostial RPDA was occluded. She required low dose of levophed gtt during the procedure. After the procedure, she arrived in the [facility] on low-dose levophed, and reported that she was asymptomatic. Hospital Course: Afua Rosales was admitted to the Hospital Medicine Service on 01/03/2022. The following issues wereaddressed and she was discharged on 01/06/2022. #Inferior STEMI s/p PCI with TRACIE x2 to RCA Patient was initiated on GDMT as tolerated after catheterization. Patient underwent TTE on the second day of hospitalization which was technically difficult but showed a LVEF of 60% with hypokinesis of the basal and mid inferior wall, the basal inferorseptum in the mid inferolateral wall. Despite th is, right ventricular systolic function was normal. Patient underwent increase in metoprolol frequency, but due to relatively soft BP, ARB was not started. ?? #Brittle Type 1 DM with frequent hypoglycemia at home Due to fluctuating BG, diabetes mgmt was consulted to assist in mgmt. Procedures: Operations: Procedure(s): CARDIAC CATHETERIZATION Other Major Procedures: Important Studies and Lab Data: DISCHARGE BASIC LABS: Recent Labs 01/06/22 0420 01/05/22 1145 01/04/22 0050 WBC 6.4 6.8 6.9 HGB 12.4 12.5 11.9 HCT 36.0 36.4 34.4* PLATELET 177 187 197 Recent Labs 01/06/22 0420 01/05/22 1145 01/04/22 0050 NA 137 137 137 K 4.0 3.9 4.1 CL 102 101 105 CO2 26 25 22 BUN 13 10 11 CREATININE 0.77 0.75 0.62* MAGNESIUM -- -- 0.84 PHOS -- -- 2.7 No results for input(s): BILITOT, BILIDIR, AST, ALT, ALKPHOS in the last 168 hours. No results for input(s): INR, PTT in the last 168 hours. OTHER [place] LABS: Recent Labs 01/04/22 0050 HA1C 8.0* Recent Labs 01/04/22 0050 TSH 0.75 Recent Labs 01/04/22 0050 HDL 63 CHOLHDL 2.2 CHLPL 136 TTE Interpretation Summary Technically difficult. Left ventricular systolic function is normal. Left ventricular ejection fraction is estimated visually at 60%. There is hypokinesis of the basal and mid inferior wall, the basal inferoseptum, and the mid inferolateral wall. The right ventricle is of normal size. Right ventricular systolic function is normal. Pulmonary artery hypertension could not be assessed due to inadequate tricuspid regurgitation jet. There is no valve disease. Microbiology: None Discharge Conditions/Prognosis: Upon discharge the pt is hemodynamically stable, afebrile, fully ambulatory without requiring supplemental oxygen, holding down food/drink, and pain free controlled with stable oral regimen. Vital Signs: Last value Range last 24 hrs Temperature Temp: 37 ??C (98.6 ??F) Temp: [36.9 ??C (98.4 ??F)-37 ??C (98.6 ??F)] Heart Rate Heart Rate: 76 Heart Rate: [73-90] Blood Pressure BP: 109/73 BP: (100-121)/(56-82) Respiratory Rate Resp: 16 Resp: [14-26] SpO2 SpO2: 98 % SpO2: [98 %-100 %] Exam: Gen: in chair in NAD; alert, oriented, conversant HEENT: anicteric, EOMI intact, CV: RRR, no murmurs/rubs/gallops Resp: CTAB, no crackles/wheezes/ronchi, normal work of breathing Abd: normal bowel sounds, soft, non-tender to palpation, no rebound or guarding Ext: 2+ distal pulses, no pedal edema Neuro: no focal deficits noted, CN II-XII grossly intact, moves all extremities spontaneously Skin: no rashes, lesions, or ulcerations noted Discharge to: home without services rehab Discharge Medications: Your Medications New Medications Dose Details aspirin 81 mg Chew Take 81 mg by mouth daily. Start taking on: January 07, 2022 81 mg Quantity: 30 tablet Refills: 3 atorvastatin 80 mg Tab Commonly known as: Lipitor Take 1 tablet by mouth every evening. 80 mg Quantity: 90 tablet Refills: 3 clopidogreL 75 mg Tab Commonly known as: Plavix Take 1 tablet by mouth daily. Start taking on: January 07, 2022 75 mg Quantity: 90 tablet Refills: 3 metoprolol succinate XL 50 mg Tablet sr Commonly known as: Toprol-XL Take 1 tablet by mouth daily. Start taking on: January 07, 2022 50 mg Quantity: 30 tablet Refills: 12 Continued medications with new dosing Dose Details Lantus Solostar U-100 Insulin 100 unit/mL (3 mL) pen Inject 10 Units subcutaneously daily. Generic drug: insulin glargine What changed: how much to take 10 Units Quantity: 3 mL Refills: 0 Continued medications, unchanged Dose Details albuteroL 90 mcg/actuation Hfaa Inhale 2 puffs into the lungs every 4 hours as needed. Reported on 08/22/2016 2 puff Refills: 0 BD Ultra-Fine Short Pen Needle 31 gauge x 5/16 Ndle Generic drug: insulin needles (disposable) Refills: 11 blood sugar diagnostic strips Strp Use 6 x a day Quantity: 200 each Refills: 11 cholecalciferol 1,000 unit Tab Commonly known as: Vitamin D3 TAKE 1/2 TABLET BY MOUTH TWICE A DAYY Refills: 0 Glucagon Emergency Kit (human) 1 mg Solr Reported on 08/22/2016 Generic drug: Glucagon Refills: 3 insulin aspart U-100 100 unit/mL (3 mL) Inpn Commonly known as: NovoLOG Flexpen U-100 Insulin Inject 0-10 Units subcutaneously 3 times daily (before meals). ICD 10 Code: E10.3593 0-10 Units Quantity: 30 mL Refills: 2 STOPPED Medications pravastatin 40 mg Tab Commonly known as: PRAVACHOL Updated Allergies/ADRs: Allergies Allergen Reactions ??? Cephalexin THROAT SWELLS ??? Aspirin SYNCOPE,RASH Other reaction(s): Sick to stomach ??? Codeine SYNCOPE,RASH Other reaction(s): Nausea ??? Codeine Phosphate ??? Fish Containing Products ??? Shellfish Derived Instructions Given to Patient at Discharge: Patient Instructions Patient Instructions on Discharge to Home Why you were hospitalized: You had a heart attack, which was caused by a blockage in one of your heart arteries. This was fixed with a stent that was placed during a cardiac catheretization. Because you had this procedure, youshouldn't lift anything greater than 10 lbs for the next week and nothing greater than 20 lbs for 2 weeks. After that time you may go back to regular activity and work. We also placed a referral for you to establish care with a pit crew support worker at [facility] as well as a referral to cardiac rehab. Both are important for the recovery of your heart after a heart attack. Call your doctor if your Right groin pain gets worse, or you develop swelling or redness in that area. Also, call your doctor if you develop sudden chest pain or shortness of breath, especially chestpain that does not go away with nitroglycerin. It is important that you take your aspirin 81mg daily forever and clopidogrel 75mg daily for at least 1 year. Do not miss any doses of these medications! New Medications: Aspirin: this is a platelet inhibitor that will help prevent clot build up in your arteries, as well as in the stent that was placed. Continue taking 81mg daily indefinitely. Clopidogrel (plavix): this is a second platelet inhibitor that will help prevent clot build up in the stent that was placed. It is very important that you take this medication every day at least forone year to help keep your stent open. Follow up with your doctor before stopping this medication. Atorvastatin (lipitor): this is a cholesterol-lowering medication that helps prevent build up of plaque in your arteries. Take this every evening. Metoprolol (toprol): this is a beta vesna, that helps protect your heart. Take this every day. Nitroglycerin: this is a medication that can be placed under your tongue as needed for chest pain. If you experience chest pain, especially that similar to what you had before you were admitted to the hospital, sit down and place one tab under your tongue (it may make you dizzy, so sitting down before taking this is safest). If your chest pain does not improve, call your doctor. Pantoprazole: this is a proton pump inhibitor that protects your stomach from irritation and bleeding that may occur which you are taking two platelet inhibitors. It is recommended you continue to take this medication at least as long as you are taking aspirin and clopidogrel together. Medication Changes: Decrease your insulin glargine to 10 units daily and continue your previous meal-associated schedule. Start aspirin, plavix, and atorvastatin for your heart attack. Start metoprolol as this will help your heart recover from this heart attack. Stop pravastatin as it was replaced by higher intensity atorvastatin. When to call your doctor: - Chest pain, worsening shortness of breath, fatigue with usual exertion, or new rest/night time symptoms. - Weigh yourself daily and record; if you note an increase of more than 2-3 pounds in 2 days, or 5 pounds over a week, contact your health care provider. - If you become short of breath, cannot lie down to sleep, or have swelling in your legs/ankles or abdomen, contact your health care provider. - Call if you have reduced urination during the day or increased urination at night. - Call for signs of increased wound drainage, redness, swelling, or increased pain at the site of your cardiac cath. - Call if you develop a temp >100.5 If you have non-emergent questions between now and the time of your follow up appointments: During 8am-5pm Thursday through Thursday call [phone] to speak with a nurse in the cardiology clinic All other times call [phone] and ask to speak to the corn husker machine operator communication professor. Activity level: - No heavy lifting (more than five pounds) for 48 hours; no more than 10 pounds for one week. - You may return to work in 1 week. Use common sense. Don't exhaust yourself. - No hunting, skiing, jogging, snow shoveling, snowmobiling, lawn mowing, swimming, golf or tennis until after your return appointment with your family doctor. - Do not ride motorcycles, tractors or horses until cleared by your doctor. Diet: - Heart healthy: low salt, low fat, low concentrated sweets. Remember to avoid added salt, canned foods, processed foods (ie hot dogs, sausage, cold meats), and foods naturally high in salt, such as potato chips or pizza. Driving: - Per your routine after [address] if you feel dizzy, light headed, or are taking narcotic medications (ie/ Oxycodone, Morphine, Dilaudid, etc). Shower/Bath: - You may shower 24 hours after cardiac catheterization. - You may not sit in water for 5 days (tub bath, hot tub or pool). Wound Care: - Cath site dressing may be removed in 24 hours. Site may be washed with soap/water. A dressing does not need to be reapplied unless irritation occurs with underclothes. If irritation occurs, apply clean band-aid daily. Exercise: - Exercise 5-7 days per week as tolerated with gradual increase to 30 minutes per day. Smoking cessation: - If you are currently a smoker, you are strongly urged to stop smoking! Smoking increases the severity and incidence of heart disease, and is a risk factor for cancer and emphysema. Your health careprovider can provide specific measures to assist you, including nicotine supplements, anti-anxiety meds, and support groups in your community. Home oxygen therapy: none Arrangements for VNA/home care: none Follow up Appointments: No future appointments. Resource Development Director: You will be contacted by [facility] to schedule a cardiology appointment to establish care. PCP: Felisha Juan APRN at [phone] Your Inpatient Doctor(s) at [facility]: Geraldo Salomon MD - Attending physician Cam David MD - Lime Boiler physician Your Primary Care Provider: Felisha Juan APRN [address] [facility] [address] For questions regarding issues relating to your hospitalization on the Hospital Medicine Service, please contact your inpatient physician through the [facility] Glass Block Bender [phone]. Issues after hours and on weekends will be handled by the Hospitalist staff on-call. General Instructions None Future Appointments and Orders Future Orders Complete By Expires Referral to Cardiac Rehab [OVM127 Custom] As directed Process Instructions: If no progress note charted, please enter Clinical details in comments. Scheduling Instructions: Questions: My question or request is: cardiac rehab referral s/p STEMI, she would benefit from location close to [facility] Referral to Cardiology [REF12 Custom] As directed Process Instructions: If no progress note charted, please enter Clinical details in comments. Scheduling Instructions: Questions: My question or request is: establish care after inferoposterior stemi Provider Contact Information: [address] / [facility] [address] Discharge References/Attachments: Discharge References/Attachments None Associated attestation - Geraldo Salomon MD - 01/06/2022 1:51 PM EDT Dear Colleagues, I was the attending at the time of discharge. Please call or email me if you have questions. Geraldo Salomon MD, [facility] [phone] documented in this encounter Discharge Instructions * Patient Instructions* Cam David MD - 01/05/2022 5:51 PM EDT Patient Instructions on Discharge to Home Why you were hospitalized: You had a heart attack, which was caused by a blockage in one of your heart arteries. This was fixed with a stent that was placed during a cardiac catheretization. Because you had this procedure, youshouldn't lift anything greater than 10 lbs for the next week and nothing greater than 20 lbs for 2 weeks. After that time you may go back to regular activity and work. We also placed a referral for you to establish care with a pit crew support worker at [facility] as well as a referral to cardiac rehab. Both are important for the recovery of your heart after a heart attack. Call your doctor if your Right groin pain gets worse, or you develop swelling or redness in that area. Also, call your doctor if you develop sudden chest pain or shortness of breath, especially chestpain that does not go away with nitroglycerin. It is important that you take your aspirin 81mg daily forever and clopidogrel 75mg daily for at least 1 year. Do not miss any doses of these medications! New Medications: Aspirin: this is a platelet inhibitor that will help prevent clot build up in your arteries, as well as in the stent that was placed. Continue taking 81mg daily indefinitely. Clopidogrel (plavix): this is a second platelet inhibitor that will help prevent clot build up in the stent that was placed. It is very important that you take this medication every day at least forone year to help keep your stent open. Follow up with your doctor before stopping this medication. Atorvastatin (lipitor): this is a cholesterol-lowering medication that helps prevent build up of plaque in your arteries. Take this every evening. Metoprolol (toprol): this is a beta vesna, that helps protect your heart. Take this every day. Nitroglycerin: this is a medication that can be placed under your tongue as needed for chest pain. If you experience chest pain, especially that similar to what you had before you were admitted to the hospital, sit down and place one tab under your tongue (it may make you dizzy, so sitting down before taking this is safest). If your chest pain does not improve, call your doctor. Pantoprazole: this is a proton pump inhibitor that protects your stomach from irritation and bleeding that may occur which you are taking two platelet inhibitors. It is recommended you continue to take this medication at least as long as you are taking aspirin and clopidogrel together. Medication Changes: Decrease your insulin glargine to 10 units daily and continue your previous meal-associated schedule. Start aspirin, plavix, and atorvastatin for your heart attack. Start metoprolol as this will help your heart recover from this heart attack. Stop pravastatin as it was replaced by higher intensity atorvastatin. When to call your doctor: - Chest pain, worsening shortness of breath, fatigue with usual exertion, or new rest/night time symptoms. - Weigh yourself daily and record; if you note an increase of more than 2-3 pounds in 2 days, or 5 pounds over a week, contact your health care provider. - If you become short of breath, cannot lie down to sleep, or have swelling in your legs/ankles or abdomen, contact your health care provider. - Call if you have reduced urination during the day or increased urination at night. - Call for signs of increased wound drainage, redness, swelling, or increased pain at the site of your cardiac cath. - Call if you develop a temp >100.5 If you have non-emergent questions between now and the time of your follow up appointments: During 8am-5pm Thursday through Thursday call [phone] to speak with a nurse in the cardiology clinic All other times call [phone] and ask to speak to the corn husker machine operator communication professor. Activity level: - No heavy lifting (more than five pounds) for 48 hours; no more than 10 pounds for one week. - You may return to work in 1 week. Use common sense. Don't exhaust yourself. - No hunting, skiing, jogging, snow shoveling, snowmobiling, lawn mowing, swimming, golf or tennis until after your return appointment with your family doctor. - Do not ride motorcycles, tractors or horses until cleared by your doctor. Diet: - Heart healthy: low salt, low fat, low concentrated sweets. Remember to avoid added salt, canned foods, processed foods (ie hot dogs, sausage, cold meats), and foods naturally high in salt, such as potato chips or pizza. Driving: - Per your routine after [address] if you feel dizzy, light headed, or are taking narcotic medications (ie/ Oxycodone, Morphine, Dilaudid, etc). Shower/Bath: - You may shower 24 hours after cardiac catheterization. - You may not sit in water for 5 days (tub bath, hot tub or pool). Wound Care: - Cath site dressing may be removed in 24 hours. Site may be washed with soap/water. A dressing does not need to be reapplied unless irritation occurs with underclothes. If irritation occurs, apply clean band-aid daily. Exercise: - Exercise 5-7 days per week as tolerated with gradual increase to 30 minutes per day. Smoking cessation: - If you are currently a smoker, you are strongly urged to stop smoking! Smoking increases the severity and incidence of heart disease, and is a risk factor for cancer and emphysema. Your health careprovider can provide specific measures to assist you, including nicotine supplements, anti-anxiety meds, and support groups in your community. Home oxygen therapy: none Arrangements for VNA/home care: none Follow up Appointments: No future appointments. Resource Development Director: You will be contacted by [facility] to schedule a cardiology appointment to establish care. PCP: Felisha Juan APRN at [phone] Your Inpatient Doctor(s) at [facility]: Geraldo Salomon MD - Attending physician Cam David MD - Lime Boiler physician Your Primary Care Provider: Felisha Juan APRN [address] [facility] [address] For questions regarding issues relating to your hospitalization on the Hospital Medicine Service, please contact your inpatient physician through the [facility] Glass Block Bender [phone]. Issues after hours and on weekends will be handled by the Hospitalist staff on-call. documented in this encounter Medications at Time of Discharge Medication Sig Dispensed Refills Start Date End Date aspirin 81 mg Tablet, Chewable Take 81 mg by mouth daily. 30 tablet 3 01/07/2022 atorvastatin (Lipitor) 80 mg Tablet Take 1 tablet by mouth every evening. 90 tablet 3 01/06/2022 clopidogreL (Plavix) 75 mg Tablet Take 1 tablet by mouth daily. 90 tablet 3 01/07/2022 Lantus Solostar U-100 Insulin 100 unit/mL (3 mL) pen Inject 10 Units subcutaneously daily. 3 mL 01/06/2022 metoprolol succinate XL (Toprol-XL) 50 mg Tablet Sustained Release 24 hr Take 1 tablet by mouth daily. 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 ICD 10 Code: E10.3593 30 mL 2 03/04/2019 GLUCAGON EMERGENCY KIT, HUMAN, 1 mg Kit Reported on 08/22/2016 3 05/09/2014 BD INSULIN PEN NEEDLE UF SHORT 31 X 5/16 Needle 11 04/05/2014 albuterol (PROVENTIL HFA;VENTOLIN HFA) 90 mcg/Actuation inhaler Inhale 2 puffs into the lungs every 4 hours as needed. Reported on 08/22/2016 documented as of this encounter Progress Notes * Tj Berry, RN - 01/06/2022 2:59 PM EDT Afua David Rosales discharged. Tele/IV removed. AVS and medication changes reviewed, questions answeredand verbalized understanding. Prescriptions to be picked up from outside pharmacy. Pt left floor via wheelchair and departed by hospital arranged transport. * Portia Larson - 01/06/2022 12:37 PM EDTSummary: Transport d/c detail Patient transport has been arranged through [facility]. Nilda will be arriving in a black Volvo at 3 PM 3 East Entrance For . * Elba Pavon APRN - 01/06/2022 11:44 AM EDT Follow Up Diabetes Consult Patient Interview Pt was sitting in her chair getting ready to go home. Objective Temp: [36.9 ??C (98.4 ??F)-37 ??C (98.6 ??F)] Heart Rate: [73-94] Resp: [14-26] BP: (100-122)/(55-82) SpO2: [97 %-100 %] Heart Rate from SpO2: [73 bpm-89 bpm] Current Regimen from previous note Lantus: 10 units daily Lispro 1:20 insulin to carbohydrate ratio Lispro for correction q 4 hours using 1:40>180 correction scale Diet CHO control level 2 Recent Glucose Levels Recent Labs 01/06/22 0801 01/06/22 0346 01/06/22 0006 01/05/22201001/05/22 1800 01/05/22 1553 01/05/22 1140 01/05/22 0743 01/05/22 0645 01/05/22 0531 01/05/22 0509 01/05/22 0045 POCGLU 142 129 125 220* 190 161 148 213* 214* 89 59* 96 ASSESSMENT Patient is a 46 y.o. years old female with PMH significant for T1DM with hypoglycemia (Last A1C of 8) who was admitted on 01/03/2022 for STEMI. Diabetes suboptimally controlled and complicated by STEMI. Currently with variability of blood glucose levels while hospitalized requiring adjustment of insulin regimen and DM medications. Recommend meal associated and correction be given pre-meal. Pt to increase Lantus by 1 units if fasting is above 150mg/dl. Pt is to decrease Lantus by 1 unit if fasting is less than 90mg/dl. Discussed discharge plan with discharging provider. PLAN Lantus: 10 units daily Lispro 1:20 insulin to carbohydrate ratio Lispro for correction q 4 hours using 1:40>180 correction scale Diet CHO control level 2 Elba Pavon APRN [facility] Diabetes Management Pager [phone] 20 minutes of this 35 minute visit was spent with the patient in counseling on diabetes and treatment plan, reviewing all glucose and insulin data as well as relevant laboratory results with the patient, and coordination of care on the inpatient unit including nursing and primary team. 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 female Reason for intervention: Labs: HgbA1c 8.0 Nutrition Recommendations: --Continue Carb Controlled level 2 diet order --Encourage high protein with each meal and choosing complex CHO over refined grains + carb counting and appropriate insulin dosing for improve BG control --6 small meals daily, low acidic foods for improved GERD symptoms --Monitor weight trends Active Orders Diet Carb Control diet CHO counting level 2 Frequency: Effective Now Number of Occurrences: Until Specified Lab Results Component Value Date NA 137 01/06/2022 K 4.0 01/06/2022 CL 102 01/06/2022 CO2 26 01/06/2022 BUN 13 01/06/2022 CREATININE 0.77 01/06/2022 ESTGFR 92 01/06/2022 MAGNESIUM 0.84 01/04/2022 CALCIUM 9.2 01/06/2022 PHOS 2.7 01/04/2022 HA1C 8.0 (H) 01/04/2022 Lab Results Component Value Date POCGLU 142 01/06/2022 POCGLU 129 01/06/2022 POCGLU 125 01/06/2022 POCGLU 220 (H) 01/05/2022 POCGLU 190 01/05/2022 POCGLU 161 01/05/2022 POCGLU 148 01/05/2022 Skin Status: Shift Pressure Injury Prevention Occiput: No Injury Thoracic Spine: No Injury Sacral: No Injury Ischial - left: No Injury Ischial - right: No Injury Heel - left: No Injury Heel - right: No Injury Elbow - left: No Injury Elbow - right: No Injury Device Sites: O2 sat monitor, IV sites, ECG Leads, BP Cuff Relevant medications: noted 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 as calculated from the following: Height as of this encounter: 165.1 cm (5' 5). Weight as of this encounter: 62.3 kg (137 lb 5.6 oz). [place] Body Weight: 125 lbs / 56.7 kg Usual Body Weight: see below Weight loss: 8% in 14 months -- Not clinically significant Wt Readings from Last 10 Encounters: 01/06/22 62.3 kg (137 lb 5.6 oz) 11/13/20 67.7 kg (149 lb 4.8 oz) 05/23/19 65.4 kg (144 lb 3.2 oz) 09/29/17 63 kg (139 lb) 08/22/16 63.1 kg (139 lb 3.2 oz) 04/18/16 65.1 kg (143 lb 9.6 oz) 12/11/15 60.3 kg (133 lb) 08/31/14 79.8 kg (176 lb) 08/15/13 61.7 kg (136 lb) 11/05/12 59 kg (130 lb) Assessment: Estimated needs: Calories: 1550 (25 kcal/kg) Protein: 75 grams (1.2 g/kg) Nutrition Focused Physical Exam (NFPE): Not performed Nutrition intake and intake history/Interview: Visited with patient this morning for high HgbA1c. Patient reports she eats 6 small meals daily andavoids high acidic foods due to GERD. Has recently stopped drinking beer which she feels will help with BG control. Counts carb and reads food labels to does insulin correctly. Also good understanding of importance of high protein and complex CHO for BG control. Weight loss possibly related to discontinuation of beer, not clinically significant. Encouraged continued good PO intake Protein-calorie Malnutrition: Not identified (Eva JPEN J Parenteral Enteral Nutr. 2011; 36(3): 273-83) Nutrition to continue to follow up while inpatient Phuong Clements RD Pager #:[phone] * Geraldo Salomon MD - 01/06/2022 6:54 AM EDT Images from the original note were not included. Inpatient Cardiology Progress Note Patient info: Name: Afua Rosales : 1975 PCP: Felisha Juan APRN PCP phone number: [phone] Date of Admission: 01/03/2022 ( Hospital Day 3 days ) Attending:Geraldo Salomon MD ID: Afua Rosales is a 46 y.o. 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 She presents with inferior STEMI and is now s/p PCI with TRACIE x2 to RCA. 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 becomes available, otherwise will need ride - feels good, slept not great but no other issues - was able to walk around the unit yesterday without any symptoms - denies CP, SOB, palpitations, N/V, abdominal pain Objective: Vitals Last value Range last 24 hrs Temperature Temp: 36.9 ??C (98.4 ??F) Temp: [36.9 ??C (98.4 ??F)-37.3 ??C (99.1 ??F)] Heart Rate Heart Rate: 74 Heart Rate: [73-95] Blood Pressure BP: 117/64 BP: (100-122)/(55-82) Art Line BP BP (Arterial Line): -- MAP (NBP): [71 mmHg-95 mmHg] Respiratory Rate Resp: 14 Resp: [14-26] SpO2 SpO2: 100 % SpO2: [97 %-100 %] Oxygen Delivery Oxygen Therapy O2 Device: None (Room air) Intake/Output Summary (Last 24 hours) at 01/06/2022 0654 Last data filed at 01/06/2022 0600 Gross per 24 hour Intake 1020 ml Output 2500 ml Net -1480 ml Admit wt: 66.1 kg Patient Vitals for the past 168 hrs: Weight 01/06/22 0400 62.3 kg (137 lb 5.6 oz) 01/05/22 0500 63.6 kg (140 lb 3.4 oz) 01/04/22 0115 67.2 kg (148 lb 2.7 oz) 01/03/22 2100 66.1 kg (145 lb 11.6 oz) Physical Exam: Gen: in chair in NAD; alert, oriented, conversant HEENT: anicteric, EOMI intact, CV: RRR, no murmurs/rubs/gallops Resp: CTAB, no crackles/wheezes/ronchi, normal work of breathing Abd: normal bowel sounds, soft, non-tender to palpation, no rebound or guarding Ext: 2+ distal pulses, no pedal edema Neuro: no focal deficits noted, CN II-XII grossly intact, moves all extremities spontaneously Skin: no rashes, lesions, or ulcerations noted Lines/Drains/Airways: Patient Lines/Drains/Airways Status Active Tubes/Lines/Drains Name Placement date Placement time Site Days Peripheral IV Line - Single Lumen 01/03/222236 metacarpal vein (top of hand), right 20 gauge 01/03/22 2237 -- 3 Labs: Recent Labs 01/06/22 0420 01/05/22 1145 01/04/22 0050 WBC 6.4 6.8 6.9 HGB 12.4 12.5 11.9 HCT 36.0 36.4 34.4* PLATELET 177 187 197 MCV 93.3 92.9 91.2 Recent Labs 01/06/22 0420 01/05/22 1145 01/04/22 0050 NA 137 137 137 CL 102 101 105 CO2 26 25 22 K 4.0 3.9 4.1 MAGNESIUM -- -- 0.84 PHOS -- -- 2.7 CALCIUM 9.2 8.6 8.5 BUN 13 10 11 CREATININE 0.77 0.75 0.62* LFTs No results for input(s): PROT, ALBUMIN, AST, ALT, ALKPHOS, BILITOT, BILIDIR in the last 168 hours. Coags No results for input(s): INR, PT, PTT, FIBRINOGEN, DDIMER in the last 168 hours. Invalid input(s): THROMBIN TIME Cardiac Enzymes Recent Labs 01/04/22 0050 TROPONINT 0.24* PROBNP 56 Endocrine Recent Labs 01/04/22 0050 TSH 0.75 Recent Labs 01/06/22 0346 01/06/22 0006 01/05/22201001/05/22 1800 01/05/22 1553 01/05/22 1140 01/05/22 0743 01/05/22 0645 01/05/22 0531 01/05/22 0509 01/05/22 0045 01/04/22 1928 POCGLU 129 125 220* 190 161 148 213* 214* 89 59* 96 104 Heme No results for input(s): LDH, HAPTOGLOBIN, URICACID in the last 168 hours. Microbiology: Microbiology Results (Last 30 days) Procedure Component Value Units Date/Time COVID-19 PCR [[id number]] Collected: 01/04/2249 Lab Status: Final result Specimen: Nasopharyngeal Swab Updated: 01/04/22350 SARS-CoV-2 RNA PCR Not Detected Comment: This result should be interpreted in combination with the clinical observations, patient history and epidemiological information. For testing of asymptomatic individuals, assay performance characteristics and clinical utility have not been evaluated. Testing for SARS-CoV-2 (Severe acute respiratory syndrome coronavirus 2, formerly known as 2019 novel coronavirus or 2019-nCoV) to aid in the diagnosis of COVID-19 is performed using the Simplexa COVID-19 Direct Assay by OneTag as authorized by the FDA issued Emergency Use Authorization (EUA). This assay is intended for In-vitro Diagnostic (IVD) use with nasopharyngeal swabs collected from individuals meeting the CDC criteria for testing. The assay is performed based on the instructions for use and additional guidance provided by the FDA. Testing is performed in the Microbiology Laboratory within the Department of Pathology and Laboratory Medicine at [facility], certified under the Clinical Laboratory Improvement Amendments of 1988 (CLIA), 42 U.S.C. section 263a, to perform high complexity tests. Assay performance has been verified according to clinical laboratory regulatory requirements. Test results are provided above. A result of Not Detected indicates that the viral RNA target is not present but does not preclude SARS-CoV-2 infection. False negative results may occur if a specimen is improperly collected, transported or handled; if amplification inhibitors are present; or if inadequate numbers of viral particles are present in the specimen. A result of Detected suggests a current or recent infection and the patient is presumed to be infected. Positive and negative predictive values for this test are highly dependent on disease prevalence. A result of Invalid indicates the inability to conclusively determine the presence or absence of SARS-CoV-2 RNA in the sample which can be due to a variety of factors. Recollection is recommended in the case of an invalid result. CDC COVID-19 criteria for testing on human specimens and clinical management guidance information are available at the CDC Coronavirus Disease 2019 (COVID-19) webpage under Information for Healthcare Professionals (https://www.cdc.gov/coronavirus/2019-ncov/hcp/index.html). Additional information about this and other EUA tests can be found in provider and patient fact sheets at the following FDA website: https://www.fda.gov/medical-devices/rgnekzlpojx-ggwugkh-2595-gxqdn-48-dzhbhzycr- fvt-zksgukjxuypzfm-wdwugiy-devices/einop-zcxiipwxkby-gpuc SARS-CoV-2 Source PANTRY CHEF Swab Imaging: No results found for this visit on 01/03/22 (from the past 168 hour(s)). Medications Scheduled Meds: ??? insulin glargine (Lantus;Semglee) (100 unit/mL) subcutaneous injection 10 Units Subcutaneous Q24H ??? metoprolol tartrate 12.5 mg Oral Q6H DANILO ??? sodium chloride 0.9 % (flush) 5 mL Intravenous BID ??? aspirin 81 mg Oral Daily ??? atorvastatin 80 mg Oral QPM ??? clopidogreL 75 mg Oral Daily ??? enoxaparin 40 mg Subcutaneous Nightly ??? insulin lispro 0-6 Units Subcutaneous TID WC ??? insulin lispro 1-4 Units Subcutaneous Q4H DANILO Continuous Infusions: PRN Meds:.sodium chloride 0.9 % (flush), lidocaine, glucose 40% oral geL OR dextrose 10% ORglucagon Assessment & Plan: Afua Rosales is a 46 y.o. 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 She presents with inferior STEMI and is now s/p PCI with TRACIE x2 to RCA. She is doing well overall after undergoing PCI. Setting up outpatient follow up today and hopefullycardiac rehab will see patient. Also, will see if [place] Medicaid can get patient a ride home as she cannot get a ride until 6 pm ?? #Inferior STEMI s/p PCI with TRACIE x2 to RCA - metoprolol 12.5mg PO Q8Hrs (01/04), Q6H (01/05 - p) - monitor for 48-72 hours s/p PCI for STEMI (01/03 2200) - start Losartan 25mg PO QD at noon if BP permits, - Aspirin 81 mg PO QD - Clopidogrel 75 mg PO QD - Atorvastatin 80mg PO QHS - cardiac rehab A1c: 8.0% tsh: 0.75 Lipids: Total chol 136, HDL 63, LDL 66 ?? #Brittle Type 1 DM with frequent hypoglycemia at home - continue home Glargine 20u QAM - continue home sliding scale insulin regimen (see orders for details) - consult Diabetes Insulin Management Team ?? #Routine Diet: Carb Control diet 60/60/75 CHO counting level 2 DVT Prophylaxis: LMWH GI Prophylaxis: not indicated Code Status: Attempt Cardiopulmonary Resuscitation - Inpatient Dispo: Pending clinical course Cam David MD Internal Medicine, PGY-1 Cardiology, S2 (4508) 01/06/22 Cardiology Staff Addendum Afua Rosales is a 46 y.o. female whom I saw today with Dr. David. I have personally reviewed appropriate data, including labs, ECGs, and other diagnostic studies. I agree with the principal findings documented above Geraldo Salomon MD, INDIO, FACC, FACP, FASE Cardiovascular Medicine * Mark Sky MD - 01/05/2022 12:22 PM EDT Follow Up Diabetes Consult Patient Interview Patient hypoglycemic to 59 this am Objective Temp: [36.6 ??C (97.9 ??F)-37.6 ??C (99.68 ??F)] Heart Rate: [78-98] Resp: [14-24] BP: (97-125)/(49-85) SpO2: [97 %-100 %] Heart Rate from SpO2: [77 bpm-98 bpm] Current Regimen 1. Lantus 16 units qd 2. Lispro sensitive sliding scale with CF 40 BG>180 3. Meal-associated Lispro 1unit: 20 gm carb ratio for each meal) 4. Carb controlled diet level 2 ?? Recent Glucose Levels Recent Labs 01/05/22 1140 01/05/22 0743 01/05/22 0645 01/05/22 0531 01/05/22 0509 01/05/22 0045 01/04/22 1928 01/04/22 1604 01/04/22 1209 01/04/22 1005 01/04/22 0823 01/04/22 0503 POCGLU 148 213* 214* 89 59* 96 104 190 157 100 72 143 ASSESSMENT Patient is a 46 y.o. years old female with PMH significant for T1DM with hypoglycemia (Last A1C of 8) who was admitted on 01/03/2022 for STEMI. Diabetes suboptimally controlled and complicated by STEMI. Currently with variability of blood glucose levels while hospitalized requiring adjustment of insulin regimen and DM medications. ?? She had a hypoglycemic event early this morning so will reduce Lantus by 40% to 10 units daily. ? Plan: 1. Reduce Lantus from 16 to 10 units qd 2. Lispro sensitive sliding scale with CF 40 BG>180 3. Meal-associated Lispro 1unit: 20 gm carb ratio for each meal 4. Carb controlled diet level 2 ?? Orders placed. ?? Thank you for allowing us to provide care for your patient. Discussed with Dr. Sky ? Lucia Alexander Endocrinology Fellow Pager [phone] I have seen the patient and reviewed Dr. Lucia Alexander's above history and I agree with the details aswritten. The assessment and plan were formulated in discussion with me and I agree with them as documented. Mark Sky MD, PhD, FACP, FACE * Geraldo Salomon MD - 01/05/2022 6:50 AM EDT Images from the original note were not included. Inpatient Cardiology Progress Note Patient info: Name: Afua Rosales : 1975 PCP: Felisha Juan APRN PCP phone number: [phone] Date of Admission: 01/03/2022 ( Hospital Day 2 days ) Attending:Geraldo Salomon MD ID: Afua Rosales is a 46 y.o. 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 She presents with inferior STEMI and is now s/p PCI with TRACIE x2 to RCA. Hospital Day2 24 Hour Events/Subjective: - NAEO - BS variable - feels good, slept through the night - denies CP, SOB, palpitations, N/V, abdominal pain Objective: Vitals Last value Range last 24 hrs Temperature Temp: 37.3 ??C (99.1 ??F) Temp: [36.6 ??C (97.9 ??F)-37.6 ??C (99.68 ??F)] Heart Rate Heart Rate: 95 Heart Rate: [78-98] Blood Pressure BP: 120/61 BP: (97-125)/(49-85) Art Line BP BP (Arterial Line): -- MAP (NBP): [66 mmHg-99 mmHg] Respiratory Rate Resp: 23 Resp: [14-23] SpO2 SpO2: 99 % SpO2: [98 %-100 %] Oxygen Delivery Oxygen Therapy O2 Device: None (Room air) Intake/Output Summary (Last 24 hours) at 01/05/2022 1019 Last data filed at 01/05/2022 0800 Gross per 24 hour Intake 410 ml Output 1750 ml Net -1340 ml Admit wt: 66.1 kg Patient Vitals for the past 168 hrs: Weight 01/05/22 0500 63.6 kg (140 lb 3.4 oz) 01/04/22 0115 67.2 kg (148 lb 2.7 oz) 01/03/22 2100 66.1 kg (145 lb 11.6 oz) Physical Exam: Gen: in chair in NAD; alert, oriented, conversant HEENT: anicteric, EOMI intact, CV: RRR, no murmurs/rubs/gallops Resp: CTAB, no crackles/wheezes/ronchi, normal work of breathing Abd: normal bowel sounds, soft, non-tender to palpation, no rebound or guarding Ext: 2+ distal pulses, no pedal edema Neuro: no focal deficits noted, CN II-XII grossly intact, moves all extremities spontaneously Skin: no rashes, lesions, or ulcerations noted Lines/Drains/Airways: Patient Lines/Drains/Airways Status Active Tubes/Lines/Drains Name Placement date Placement time Site Days Peripheral IV Line - Single Lumen 01/03/222099 median cubital vein (antecubital fossa), right 01/03/222099 -- 2 Peripheral IV Line - Single Lumen 01/03/222236 metacarpal vein (top of hand), right 20 gauge 01/03/222236 -- 2 Labs: Recent Labs 01/04/22 0050 WBC 6.9 HGB 11.9 HCT 34.4* PLATELET 197 MCV 91.2 Recent Labs 01/04/22 0050 NA 137 CL 105 CO2 22 K 4.1 MAGNESIUM 0.84 PHOS 2.7 CALCIUM 8.5 BUN 11 CREATININE 0.62* LFTs No results for input(s): PROT, ALBUMIN, AST, ALT, ALKPHOS, BILITOT, BILIDIR in the last 168 hours. Coags No results for input(s): INR, PT, PTT, FIBRINOGEN, DDIMER in the last 168 hours. Invalid input(s): THROMBIN TIME Cardiac Enzymes Recent Labs 01/04/22 005 TROPONINT 0.24* PROBNP 56 Endocrine Recent Labs 01/04/22 0050 TSH 0.75 Recent Labs 01/05/22 0743 01/05/22 0645 01/05/22 0531 01/05/22 0509 01/05/22 0045 01/04/22 1928 01/04/22 1604 01/04/22 1209 01/04/22 1005 01/04/22 0823 01/04/22 0503 01/04/22 0301 POCGLU 213* 214* 89 59* 96 104 190 157 100 72 143 182 Heme No results for input(s): LDH, HAPTOGLOBIN, URICACID in the last 168 hours. Microbiology: Microbiology Results (Last 30 days) Procedure Component Value Units Date/Time COVID-19 PCR [[id number]] Collected: 01/04/2249 Lab Status: Final result Specimen: Nasopharyngeal Swab Updated: 01/04/22350 SARS-CoV-2 RNA PCR Not Detected Comment: This result should be interpreted in combination with the clinical observations, patient history and epidemiological information. For testing of asymptomatic individuals, assay performance characteristics and clinical utility have not been evaluated. Testing for SARS-CoV-2 (Severe acute respiratory syndrome coronavirus 2, formerly known as 2019 novel coronavirus or 2019-nCoV) to aid in the diagnosis of COVID-19 is performed using the Simplexa COVID-19 Direct Assay by OneTag as authorized by the FDA issued Emergency Use Authorization (EUA). This assay is intended for In-vitro Diagnostic (IVD) use with nasopharyngeal swabs collected from individuals meeting the CDC criteria for testing. The assay is performed based on the instructions for use and additional guidance provided by the FDA. Testing is performed in the Microbiology Laboratory within the Department of Pathology and Laboratory Medicine at [facility], certified under the Clinical Laboratory Improvement Amendments of 1988 (CLIA), 42 U.S.C. section 263a, to perform high complexity tests. Assay performance has been verified according to clinical laboratory regulatory requirements. Test results are provided above. A result of Not Detected indicates that the viral RNA target is not present but does not preclude SARS-CoV-2 infection. False negative results may occur if a specimen is improperly collected, transported or handled; if amplification inhibitors are present; or if inadequate numbers of viral particles are present in the specimen. A result of Detected suggests a current or recent infection and the patient is presumed to be infected. Positive and negative predictive values for this test are highly dependent on disease prevalence. A result of Invalid indicates the inability to conclusively determine the presence or absence of SARS-CoV-2 RNA in the sample which can be due to a variety of factors. Recollection is recommended in the case of an invalid result. CDC COVID-19 criteria for testing on human specimens and clinical management guidance information are available at the CDC Coronavirus Disease 2019 (COVID-19) webpage under Information for Healthcare Professionals (https://www.cdc.gov/coronavirus/2019-ncov/hcp/index.html). Additional information about this and other EUA tests can be found in provider and patient fact sheets at the following FDA website: https://www.fda.gov/medical-devices/gupnshqbqtx-dhvhqds-8321-rdanb-37-btdufzqzj- ffq-vgfmpuiztsvzfo-lbjgwef-devices/iedeo-ackmxeaowtt-qgen SARS-CoV-2 Source PANTRY CHEF Swab Imaging: No results found for this visit on 01/03/22 (from the past 168 hour(s)). Medications Scheduled Meds: ??? insulin glargine (Lantus;Semglee) (100 unit/mL) subcutaneous injection 10 Units Subcutaneous Q24H ??? sodium chloride 0.9 % (flush) 5 mL Intravenous BID ??? aspirin 81 mg Oral Daily ??? atorvastatin 80 mg Oral QPM ??? metoprolol tartrate 12.5 mg Oral Q8H DANILO ??? clopidogreL 75 mg Oral Daily ??? enoxaparin 40 mg Subcutaneous Nightly ??? insulin lispro 0-6 Units Subcutaneous TID WC ??? insulin lispro 1-4 Units Subcutaneous Q4H DANILO Continuous Infusions: PRN Meds:.sodium chloride 0.9 % (flush), lidocaine, glucose 40% oral geL OR dextrose 10% ORglucagon Assessment & Plan: Afua Rosales is a 46 y.o. 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 She presents with inferior STEMI and is now s/p PCI with TRACIE x2 to RCA. She is doing well overall after undergoing PCI. Will increase metoprolol to Q6H today. Ordered labstoday as not in. ?? #Inferior STEMI s/p PCI with TRACIE x2 to RCA - metoprolol 12.5mg PO Q8Hrs (01/04), Q6H (01/05 - ) - monitor for 48-72 hours s/p PCI for STEMI (01/03 2200) - start Losartan 25mg PO QD at noon if BP permits - Aspirin 81 mg PO QD - Clopidogrel 75 mg PO QD - Atorvastatin 80mg PO QHS - cardiac rehab A1c: 8.0% tsh: 0.75 Lipids: Total chol 136, HDL 63, LDL 66 ?? #Brittle Type 1 DM with frequent hypoglycemia at home - continue home Glargine 20u QAM - continue home sliding scale insulin regimen (see orders for details) - consult Diabetes Insulin Management Team ?? #Routine Diet: Carb Control diet 60/60/75 CHO counting level 2 DVT Prophylaxis: LMWH GI Prophylaxis: not indicated Code Status: Attempt Cardiopulmonary Resuscitation - Inpatient Dispo: Pending clinical course Cardiology Staff Addendum ?? Afua Rosales is a 46 y.o. female whom I saw today with Dr. David. ??I have personally interviewed and examined the patient and reviewed appropriate data, including labs, ECGs, and other diagnostic studies. I agree with the principal findings documented above, with additions and exceptions as below. ??The assessment and plan were formulated in discussion with me. ?? In brief, type 1 diabetic not on moderate or high intensity statin or aspirin, no prior known history of ASCVD, who presents with inferoposterior STEMI. Status post effective lytics and PCI of RCA. Hemodynamically stable and chest pain free. TTE with normal RV and LV function. Continue DAPT, statin, advance BB. Probable discharge to home tomorrow. ?? Geraldo Salomon MD, INDIO, FACC, FACP, FASE Cardiovascular Medicine * Tristan Rajan MD - 01/04/2022 10:37 AM EDT Post Cath Note S: No chest pain, dyspnea, abdominal, groin, or back pain. Dressing clean and dry, no signs of infection, no bleeding from R femoral/groin access site. O: Tc: Temp: 37.2 ??C (98.96 ??F) BP: BP: (!) 75/45 HR: Heart Rate: 92 R: Resp: 19 SpO2: SpO2: 99 %% on RA General: Lying in bed in NAD. Groin: Right femoral access site without hematoma or ecchymoses. No bleeding or bruits. Ext: warm, sensation intact, 2+ PT pulses. A/P: s/p cath with benign appearing right femoral/groin access site. * Emil Clark MD - 01/04/2022 3:25 AM EDT [facility] Initial Assessment Note I established audio/visual communication with the patient's room, reviewed the eDH. History and Assessment: 46 y.o. 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 STEMIalert activated and went to calibration laboratory technician where proximal and mid RCA stents were inserted. CAMERA: No acute distress VITALS: 97% on RA SR 99 NIBP 104/54 RR 15 Recent Results (from the past 12 hour(s)) POCT Glucose Result Value POC Glucose 63 (L) POCT Glucose Result Value POC Glucose 265 (H) POCT Glucose Result Value POC Glucose 200 (H) POCT Glucose Result Value POC Glucose 126 Basic Metabolic Panel (non-fasting) Result Value Glucose Lvl 224 (H) BUN 11 Creatinine 0.62 (L) Sodium 137 Potassium 4.1 Chloride 105 CO2 22 Anion Gap 10 Calcium 8.5 Estimated GFR 107 Magnesium Result Value Magnesium 0.84 Phosphorus Result Value Phosphorus 2.7 TSH Result Value TSH 0.75 HDL/Cholesterol Profile Result Value Chol, Total 136 HDL 63 Chol/HDL Ratio 2.2 Chol/HDL Interpretation See Note LDL Cholesterol, Direct Result Value LDL Chol Direct 66 pro-Brain Natriuretic Peptide Result Value ProBNP 56 Troponin Result Value Troponin-T 0.24 (H) Hemoglobin A1c Result Value Hemoglobin A1C 8.0 (H) Est Avg Gluc 183 Beta Hydroxybutyrate Result Value BOHB 0.95 (H) Hemogram Result Value WBC 6.9 RBC 3.77 (L) Hemoglobin 11.9 Hematocrit 34.4 (L) MCV 91.2 MCH 31.6 MCHC 34.6 Platelets 197 RDWSD 40.7 RDWCV 12.1 MPV 10.4 nRBC % Auto 0.0 nRBC Abs Auto 0.000 Differential, Automated Result Value Neutrophils % 86.1 Neutr Abs (ANC) 5.92 Lymphocytes % 9.6 Lymphocytes Abs 0.7 (L) Monocytes % 3.6 Monocyte Abs 0.2 (L) Eosinophils % 0.1 Eosinophils Abs 0.0 Basophils % 0.3 Basophils Abs 0.0 Immature Gran % 0.30 Arlene Gran Abs 0.02 BLOOD GAS 2 VENOUS Result Value pH Butch 7.33 pCO2 Butch 45 pO2 Butch 52 (H) HCO3 Butch 23.5 BE Butch -2.7 Hgb Blood Gas 13.1 O2HB Butch 86.6 COHB Butch 0.3 METHB Butch 0.8 Na Whole Blood 134 (L) K Whole Blood 4.1 ICa Whole Blood 1.21 CL Whole Blood 104 Gluc Whole Bld 215 (H) Lactate WB 0.8 FIO2 Butch 21 BGas Source Venous Temp Butch 35.8 POCT Glucose Result Value POC Glucose 182 Current Facility-Administered Medications: ??? sodium chloride 0.9 % (flush) (BD PosiFlush Normal Saline 0.9) flush 5 mL, 5 mL, Intravenous, BID, Sumanth Barnard MD, 5 mL at 01/04/22 0115 ??? sodium chloride 0.9 % (flush) (BD PosiFlush Normal Saline 0.9) flush 5-20 mL, 5-20 mL, Intravenous, Q1 Min PRN, Sumanth Barnard MD ??? lidocaine (Xylocaine) 1% (10 mg/mL) injection 3 mg, 0.3 mL, Subcutaneous, Once PRN, Sumanth Barnard MD ??? heparin (porcine) (5,000 units/1 mL) subcutaneous injection 5,000 Units, 5,000 Units, Subcutaneous, Q8H DANILO, Sumanth Barnard MD, 5,000 Units at 01/04/22 0115 ??? aspirin chewable tablet 81 mg, 81 mg, Oral, Daily, Sumanth Barnard MD ??? atorvastatin (Lipitor) tablet 80 mg, 80 mg, Oral, QPM, Sumanth Barnard MD ??? losartan (Cozaar) tablet 25 mg, 25 mg, Oral, Daily, Sumanth Barnard MD ??? glucose (Glutose) 40% oral geL, 15-30 g of glucose, Buccal, Q30 Min PRN OR dextrose 10% infusion, 250 mL, Intravenous, Q30 Min PRN OR glucagon (Glucagen) (1 mg/mL) injection solution 1 mg, 1 mg, Intramuscular, Q30 Min PRN, Sumanth Barnard MD ??? metoprolol tartrate (Lopressor) tablet 12.5 mg, 12.5 mg, Oral, Q8H [facility], Sumanth Barnard MD ??? clopidogreL (Plavix) tablet 75 mg, 75 mg, Oral, Daily, Sumanth Barnard MD ??? NORepinephrine (Levophed) (16 mcg/mL) in dextrose 5% 250 mL infusion, , , Continuous PRN, oMi Ledezma MD, Held at 01/04/22 0000 Impression/Recs/Plan: #Inferior STEMI s/p RCA stent x 2 -Cath site care/ASA/Lipitor/Plavix/Cozaar/metoprolol as per [facility] This is a non-billable note. documented in this encounter H&P Notes * Geraldo Salomon MD - 01/04/2022 12:05 AM EDT Images from the original note were not included. Cardiology ICU H&P Patient info: Name: Afua Rosales : 1975 PCP: Felisha Juan APRN PCP phone number: [phone] Date of Admission: 01/03/2022 ( Hospital Day 1 day ) Attending:Moi Ledezma MD ID: Afua Rosales is a 46 y.o. 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 She presents with inferior STEMI and is now s/p PCI with TRACIE x2 to RCA. HPI: History per patient, med rec per the patient's significant other (Delano) The patient was in her usual state of health until yesterday evening. While watching a movie with her family, she arose to go to her bedroom, but had sudden onset of malaise. Her significant other and daughter found her feeling unwell and less responsive in her bedroom, they assumed she was hypoglycemic and gave her orange juice (although glucometer showed normal blood glucose). She then walkedto the bathroom, where she developed chest pain, generalized abdominal pain, nausea and vomiting. They called EMS, EKG in the field showed inferior STEMI. She refused aspirin load from EMS because aspirin has previously made her nauseous. On arrival to [facility], she was afebrile, BP was 95/54, she was oxygenating normally on room air. She was infused with 1L IV fluids, given 25 mg of aspirin (per [facility] discharge note). The on-call corn husker machine operator at [facility] was contacted, she was given 300 mg of Plavix, aspirin, heparin with bolus and drip. She was also given tecteplase 35mg. On arrival to [facility] calibration laboratory technician, she underwent LHC and received TRACIE x2 to the RCA. During the procedure, the ostial RPDA was occluded. She required low dose of levophed gtt during the procedure. After the procedure, she arrived in the [facility] on low-dose levophed, and reported that she was asymptomatic. Review of Systems (positives in bold) Reports prior chest pain, malaise, nausea with vomiting as per HPI PMH No past medical history on file. Type 1 DM Visual Impairment due to DM PSH No past surgical history on file. Hysterectomy Family History No family history on file. Social History She lives with her significant other (Delano). She is disabled due to visual impairment. She has never smoked. Allergies: Allergies Allergen Reactions ??? Cephalexin THROAT SWELLS ??? Aspirin SYNCOPE,RASH Other reaction(s): Sick to stomach ??? Codeine SYNCOPE,RASH Other reaction(s): Nausea ??? Codeine Phosphate ??? Fish Containing Products ??? Shellfish Derived Meds ??? sodium chloride 0.9 % (flush) 5 mL Intravenous BID ??? heparin (porcine) 5,000 Units Subcutaneous Q8H DANILO ??? aspirin 81 mg Oral Daily ??? atorvastatin 80 mg Oral QPM ??? losartan 25 mg Oral Daily sodium chloride 0.9 % (flush), lidocaine, glucose 40% oral geL OR dextrose 10% OR glucagon,NORepinephrine Objective: Vitals Last value Range last 24 hrs Temperature Temp: (!) 34.4 ??C (93.9 ??F) Temp: [34.4 ??C (93.9 ??F)] Heart Rate Heart Rate: 94 Heart Rate: [85-97] Blood Pressure BP: 109/59 BP: (92-138)/(51-73) Art Line BP BP (Arterial Line): -- MAP (NBP): [70 mmHg-78 mmHg] Respiratory Rate Resp: 21 Resp: [16-21] SpO2 SpO2: 98 % SpO2: [96 %-100 %] Oxygen Delivery Oxygen Therapy O2 Device: None (Room air) Intake/Output Summary (Last 24 hours) at 01/04/2022 0115 Last data filed at 01/03/2022 2344 Gross per 24 hour Intake 1119 ml Output -- Net 1119 ml Patient Vitals for the past 168 hrs: Weight 01/03/22 2100 66.1 kg (145 lb 11.6 oz) Admit wt: 66.1 kg Physical Exam: Gen: fatigued-appearing woman lying flat in bed, conversing normally, not in distress HEENT: anicteric, EOMI intact CV: RRR, no murmurs Resp: CTAB, no crackles/wheezes/ronchi, normal work of breathing Abd: soft, non-tender to palpation, no rebound or guarding Ext: warm and perfused, no pedal edema. R femoral arterial access site is bandaged. Neuro: Alert and oriented, conversing normally. There is L-sided droop of the corner of her mouth but she attributes this to poor dentition; Her R pupil is less reactive to light (she attributes thisto her chronic visual impairment) - besides this, CN II - XII are grossly intact, moves all extremities spontaneously Psych: cooperative. Skin: no rashes, lesions, or ulcerations noted along already-exposed skin Labs: Recent Labs 01/04/22 0050 WBC 6.9 HGB 11.9 HCT 34.4* PLATELET 197 MCV 91.2 Recent Labs 01/04/22 0050 NA 137 CL 105 CO2 22 K 4.1 MAGNESIUM 0.84 PHOS 2.7 CALCIUM 8.5 BUN 11 CREATININE 0.62* Cardiac Enzymes Recent Labs 01/04/22 0050 TROPONINT 0.24* PROBNP 56 Endocrine Recent Labs 01/04/22 0050 TSH 0.75 Recent Labs 01/04/22 0007 01/03/22 2331 01/03/22 2256 01/03/22 2237 POCGLU 126 200* 265* 63* VBG pending Imaging: No results found for this visit on 01/03/22. Medications Scheduled Meds: ??? sodium chloride 0.9 % (flush) 5 mL Intravenous BID ??? heparin (porcine) 5,000 Units Subcutaneous Q8H DANILO ??? aspirin 81 mg Oral Daily ??? atorvastatin 80 mg Oral QPM ??? losartan 25 mg Oral Daily Continuous Infusions: ??? NORepinephrine 2.5 mcg/min (01/03/22 2330) PRN Meds:.sodium chloride 0.9 % (flush), lidocaine, glucose 40% oral geL OR dextrose 10% ORglucagon, NORepinephrine Assessment & Plan: Afua Rosales is a 46 y.o. female with type 1 diabetes mellitus. She presents for inferior STEMI, she is now s/p PCI with TRACIE x2 to RCA. She is doing well overall after undergoing PCI. Although recorded temperatures indicate mild hypothermia, I suspect these measurements are false given that she is well-appearing on exam and conversant. We will monitor her overnight in the CV[facility] and initiate GDMT. #Inferior STEMI s/p PCI with TRACIE x2 to RCA - start metoprolol 12.5mg PO Q8Hrs tomorrow morning (cautiously, given prior hypotension) - start Losartan 25mg PO QD at noon if BP permits - Aspirin 81 mg PO QD - Clopidogrel 75 mg PO QD - Atorvastatin 80mg PO QHS #Brittle Type 1 DM with frequent hypoglycemia at home - continue home Glargine 20u QAM - continue home sliding scale insulin regimen (see orders for details) - consult Diabetes Insulin Management Team #Routine Diet: NPO diet (Give Meds) DVT Prophylaxis: subcutaneous heparin 5000u Q8Hrs GI Prophylaxis: not indicated Code Status: Attempt Cardiopulmonary Resuscitation - Inpatient Dispo: Pending clinical course Sumanth Barnard MD Internal Medicine, PGY-2 Cardiology, M1-S1, #[id number] 01/04/22 1:15 AM Cardiology Staff Addendum Afua Rosales is a 46 y.o. female whom I saw today with Dr. Barnard. I have personally interviewedand examined the patient and reviewed appropriate data, including labs, ECGs, and other diagnostic studies. I agree with the principal findings documented above, with additions and exceptions as below. The assessment and plan were formulated in discussion with me. In brief, type 1 diabetic not on moderate or high intensity statin or aspirin, no prior known history of ASCVD, who presents with inferoposterior STEMI. Status post effective lytics and PCI of RCA. Hemodynamically stable and chest pain free. TTE today. Continue DAPT, statin, low dose BB. Geraldo Salomon MD, INDIO, FACC, FACP, FASE Cardiovascular Medicine documented in this encounter Miscellaneous Notes * Initial Assessments - Mariangel Vazquez, RN - 01/06/2022 11:29 AM EDTSummary: IA / D/C note Office of Care Management Initial Assessment Mariangel Vazquez RN reviewed record and discussed patient with Care Team. Source of Information: Team, bedside nurse, medical record, and Patient Introduced self/reviewed role; services accepted. Reason for Hospitalization: chest pain Covid Vaccination Status: 1st, 2nd & booster Last COVID test: Lab Results Component Value Date [id number] Not Detected 01/04/2022 Past medical History: No past medical history on file. Hospitalizations Within the Past 30 Days: no previous admission in last 30 days Current Decision-Making Capacity: Self Advance Care Planning: Attempt Cardiopulmonary Resuscitation - Inpatient <no information> -Advanced Directive: No, need to discuss If AD's have not been completed daughter would be surrogate decision maker per [place] surrogate decision making law. (Only good for 180 days) Any patient receiving care at [facility] must abide by [place] law. The hierarchy for surrogate decision making is: (a) Patient???s spouse, or civil union partner or common law spouse unless there is a divorce proceeding, separation agreement, or restraining order limiting that person???s relationship with the patient. (b) Any adult son or daughter of the patient. (c) Either parent of the patient. (d) Any adult brother or sister of the patient. (e) Any adult grandchild of the patient. (f) Any grandparent of the patient. (g) Any adult aunt, uncle, niece, or nephew of the patient. (h) A close friend of the patient. (i) The agent with financial power of city attorney or a conservator appointed in accordance with RSA 464-A. (j) The guardian of the patient???s estate. Current Coping/Education/Information Needs: Patient has a good understanding of hospitalization andDishcarge plan Current Functional Ability: Independent Functional Status Prior to Admission: Independent Prior ADLs & IADLs: Independent with all ADLs & IADLs Home Environment: Others in the home: child(aarti), adult, significant other, pet(s). Current Living Arrangements: home/apartment/condo. Accessibility Concerns:Has 4 JASSON but manages well. Has a cat and 4 guinea pigs in the home . Resource / Environmental Concerns: Resource/Environmental Concerns: none Current DME: none Home Address confirmed as: [address] [facility] [address] Social & Family Supports: All names listed below confirmed with patient as current and correct Extended Emergency Contact Information Primary Emergency Contact: Delano Reyna [facility] Mobile Relation: Friend Current Care Provided by: self Provides Primary Care For: no one Caregiver if needed: child(aarti), adult, spouse Quality of Family relationships: Has a SO and a daughter that is in the home and helpful ( daughterhas anxiety ) Community Resources being provided currently: none Behavioral Health History: denies Substance Use/Abuse listed: Social History Tobacco Use Smoking Status Never Smoker Smokeless Tobacco Never Used In the past year have you used an illegal drug or used a prescription medication for non-medical reaons?: No 0 No problems reported 1-2 Low level 3-5 Moderate level 6-8 Substantial level 9- 10 Severe level In the past year have you had 4 or more drinks a day containing alcohol?: No 0 to 7 points: Low risk 8 to 15 points: Medium risk 16 to 19 points: High risk 20 to 40 points: Addiction likely Other Pertinent/Service Specific Information: pt has Food stamps and also utilizes the food pantries / States can afford her medications Legally blind and her and her SO / and daughter use public transportation as they do not drive . Health/Prescription Coverage: Primary Insurance: MEDICARE Payor: MEDICARE / Plan: MEDICARE PART A & B / Product Type: *No Product type* / Secondary Insurance: MEDICAID [place] Prescription Coverage: Yes Preferred Pharmacy: [id number] - [place], [place] - [address] [place] [address] AT [address] [facility] [address] [facility] [id number] [facility] - [place], [place] - [address] [facility] [address] [facility] [address] [place] Status: Patient is a : No Primary Care Provider: Felisha Juan APRN [phone] Patient/Caregiver Goals of Treatment: To go home Potential Needs for Transition of Care: none Agency Referrals: None anticipated Transportation: other (see comments) (Needs ride home generally take the free transfer bus in her home town for groceries) Transportation Anticipated: health plan transportation Concerns to be Addressed: discharge planning Assessment: Patient is admitted to *Cards service for STEMI Plan: Home today with a medicaid ride / RS to confirm when ride is obtained A member of the Care Management team will continue to monitor progress, follow for continuity of care and assist with transition of care planning. Office of Care Management Surgery Team Turbine Assembler [email or web address] Pager [phone] * Consult Note - Mark Sky MD - 01/04/2022 9:11 AM EDT Images from the original note were not included. Diabetes Management Team Inpatient Consult Date of Consultation: 01/04/2022 Consult Requested by: Cardiology Reason for Consultation: Afua Rosales is a 46 y.o. female with PMH significant for DM1 c/b b/l retinopathy and blindness who was admitted on 01/03/2022 for STEMI, now s/p PCI with TRACIE x 2 to RCA. We are being consulted to assist with diabetes management and to provide a review of superintendent marine oil terminal diabetescare. Diabetes History: Afua Rosales has had diabetes since 7 years old. Current outpatient diabetes regimen: Diabetes Provider: Dr Tee Medications: Basaglar 20 units daily in am Novolog CF 25 for BG >150 before meals (no separate meal dose, not using with snacks) Monitoring is done 3-4 times a day, 80s-300s Most recent HA1c was done on 01/04/22 and was 8%, suggesting an average glucose of 183 mg/dL for the past 6-8 weeks. Typical diet is variable Typical exercise regimen is no structured exercise program Trouble with hypoglycemia frequent Diabetes Complications Status: Eyes: +retinopathy Kidneys: none Sensory: +neuropathy Autonomic: None Cardiac: CAD STEMI Current Hospital Diabetes Care: Medications: Lispro custom sliding scale q 4 hrs with CF 25 Monitoring: q 4 hrs Diet: carb control level 2 ROS: Constitutional: No recent weight change +malaise Endocrine: No increased thirst or urination Eyes: +blurring of vision ENT: No dysphagia, dental issues Cardiovascular: +prior chest pain Respiratory: No wheezing , shortness of breath GI: +nausea, no abdominal pain, diarrhea, constipation : No frequent urinary tract infections Neurological: No weakness, headaches Skin/Feet: +wound left heel +numbness PMH No past medical history on file. Current Hospital Medications: ??? sodium chloride 0.9 % (flush) 5 mL Intravenous BID ??? heparin (porcine) 5,000 Units Subcutaneous Q8H DANILO ??? aspirin 81 mg Oral Daily ??? atorvastatin 80 mg Oral QPM ??? metoprolol tartrate 12.5 mg Oral Q8H DANILO ??? clopidogreL 75 mg Oral Daily ??? insulin lispro 3-7 Units Subcutaneous Q4H DANILO ??? insulin glargine (Lantus;Semglee) (100 unit/mL) subcutaneous injection 20 Units Subcutaneous Daily Infusions: ??? NORepinephrine Stopped (01/04/22 0000) PRN: sodium chloride 0.9 % (flush), lidocaine, glucose 40% oral geL OR dextrose 10% OR glucagon,NORepinephrine Allergy: Allergies Allergen Reactions ??? Cephalexin THROAT SWELLS ??? Aspirin SYNCOPE,RASH Other reaction(s): Sick to stomach ??? Codeine SYNCOPE,RASH Other reaction(s): Nausea ??? Codeine Phosphate ??? Fish Containing Products ??? Shellfish Derived Social history: Social History Tobacco Use ??? Smoking status: Never Smoker ??? Smokeless tobacco: Never Used Substance Use Topics ??? Alcohol use: Not Currently ??? Drug use: Not Currently Family history: No family history on file. Vitals Last value Range last 24 hrs Temperature Temp: 36.9 ??C (98.42 ??F) Temp: [34.4 ??C (93.9 ??F)-37.2 ??C (98.96 ??F)] Heart Rate Heart Rate: 88 Heart Rate: [85-108] Blood Pressure BP: 103/58 BP: (92-138)/(50-73) Respiratory Rate Resp: 14 Resp: [11-21] SpO2 SpO2: 99 % SpO2: [96 %-100 %] Physical Exam: Gen: NAD, tired appearing, not in distress HEENT: anicteric sclerae, EOMI Lungs: breathing non-labored. Normal respiratory effort Abd: Soft, non-distended, non-tender SKIN: No open areas or redness to both feet Neuro: Moving all extremities. Grossly non-focal Labs: Latest Reference Range & Units 01/04/22 00:50 BUN 8 - 18 mg/dL 11 Creatinine 0.70 - 1.20 mg/dL 0.62 (L) Estimated GFR >=60 mL/min/1.73 m?? 107 [1] Assessment: Patient is a 46 y.o. years old female with PMH significant for T1DM with hypoglycemia (Last A1C of 8) who was admitted on 01/03/2022 for STEMI. Diabetes suboptimally controlled and complicated by STEMI. Currently with variability of blood glucose levels while hospitalized requiring adjustment of insulin regimen and DM medications. She reports frequent hypoglycemic events on her current regimen so will reduce Lantus to 16 units daily from 20 units daily and de-intensify correction scale from CF 25 to CF 40. Start meal coverage with ICR of 1:20. Plan: 1. Lantus 16 units qd 2. Lispro sensitive sliding scale with CF 40 BG>180 3. Meal-associated Lispro 1unit: 20 gm carb ratio for each meal) 4. Carb controlled diet level 2 shelter diabetes care: Medications - Outpatient treatment regimen recommendations pending based on the hospital course. Monitoring - continue BG check q4 hours for now Diet - low fat/low carb diet Exercise - weight-bearing exercise 30 min/day, as tolerated Thank you for allowing us to provide care for your patient. Discussed with Dr. Asya Alexander Endocrinology Fellow Pager [phone] I have seen the patient and reviewed Dr. Lucia Alexander's above history and I agree with the details aswritten. The assessment and plan were formulated in discussion with me and I agree with them as documented. Mark Sky MD, PhD, FACP, FACE documented in this encounter Plan of Treatment Scheduled Referrals Name Type Priority Associated Diagnoses Order Schedule Referral to Cardiology Outpatient Referral Routine ST elevation myocardial infarction involving right coronary artery Ordered: 01/06/2022 Referral to Cardiac Rehab Outpatient Referral Routine ST elevation myocardial infarction involving right coronary artery Ordered: 01/06/2022 documented as of this encounter Procedures Procedure Name Priority Date/Time Associated Diagnosis Comments POCT GLUCOSE Routine 01/06/2022 2:32 PM EDT POCT GLUCOSE Routine 01/06/2022 11:47 AM EDT POCT GLUCOSE Routine 01/06/2022 8:01 AM EDT HEMOGRAM Routine 01/06/2022 4:20 AM EDT DIFFERENTIAL, AUTOMATED Routine 01/07/20 4:20 AM EDT HC CBC,PLT & AUTO DIFF Routine 4:20 AM EDT BASIC METABOLIC PANEL Routine 01/06/2022 4:20 AM EDT POCT GLUCOSE Routine 01/06/2022 3:46 AM EDT POCT GLUCOSE Routine 01/06/2022 12:06 AM EDT POCT GLUCOSE Routine 01/05/2022 8:11 PM EDT POCT GLUCOSE Routine 01/05/2022 6:00 PM EDT POCT GLUCOSE Routine 01/05/2022 3:53 PM EDT HEMOGRAM Routine 01/05/2022 11:45 AM EDT DIFFERENTIAL, AUTOMATED Routine 01/06/20 11:45 AM EDT HC CBC,PLT & AUTO DIFF Routine 11:45 AM EDT BASIC METABOLIC PANEL Routine 01/05/2022 11:45 AM EDT POCT GLUCOSE Routine 01/05/2022 11:40 AM EDT EKG 12-LEAD Routine 01/05/2022 8:[address] elevation myocardial infarction involving right coronary artery POCT GLUCOSE Routine 01/05/2022 7:43 AM EDT POCT GLUCOSE Routine 01/05/2022 6:45 AM EDT POCT GLUCOSE Routine 01/05/2022 5:31 AM EDT POCT GLUCOSE Routine 01/05/2022 5:09 AM EDT POCT GLUCOSE Routine 01/05/2022 12:45 AM EDT POCT GLUCOSE Routine 01/04/2022 7:28 PM EDT POCT GLUCOSE Routine 01/04/2022 4:04 PM EDT POCT GLUCOSE Routine 01/04/2022 12:09 PM EDT ECHO COMPLETE W CONTRAST Routine 01/04/2022 11:[address] elevation myocardial infarction involving right coronary artery POCT GLUCOSE Routine 01/04/2022 10:05 AM EDT POCT GLUCOSE Routine 01/04/2022 8:23 AM EDT POCT GLUCOSE Routine 01/04/2022 5:03 AM EDT POCT GLUCOSE Routine 01/04/2022 3:01 AM EDT BLOOD GAS VENOUS POC Routine 01/04/2022 1:44 AM EDT RAPID COVID-19 PCR ([facility]) Routine 01/04/2022 12:50 AM EDT HEMOGRAM Routine 01/04/2022 12:50 AM EDT DIFFERENTIAL, AUTOMATED Routine 01/05/20 12:50 AM EDT HC BETA-HYDROXYBUTYRIC ACID Routine 01/04/2022 12:50 AM EDT HC CBC,PLT & AUTO DIFF Routine 12:50 AM EDT HC TROPONIN T STAT 01/04/2022 12:50 AM EDT HC THYROID STIMULATING HORMONE, SERUM Routine 01/04/2022 12:50 AM EDT HC PHOSPHORUS, SERUM Routine 01/04/2022 12:50 AM EDT HC PROBNP Routine 01/04/2022 12:50 AM EDT HC MAGNESIUM, SERUM Routine 01/04/2022 1 2:50 AM EDT HC LDL CHOLESTEROL, DIRECT Routine 01/04/2022 12:50 AM EDT HC CHOLESTEROL Routine 01/04/2022 12:50 AM EDT HC HEMOGLOBIN A1C Routine 01/04/2022 12: 50 AM EDT BASIC METABOLIC PANEL Routine 01/04/2022 12:50 AM EDT EKG 12-LEAD STAT 01/04/2022 12:[address] elevation myocardial infarction involving right coronary artery POCT GLUCOSE Routine 01/04/2022 12:07 AM EDT CARDIAC CATHETERIZATION Routine 01/04/20 11:45 PM EDT POCT GLUCOSE Routine 01/03/2022 11:31 PM EDT POCT GLUCOSE Routine 01/03/2022 10:56 PM EDT POINT OF CARE BLOOD GAS HISTORICAL Routine 01/03/2022 10:38 PM EDT POCT GLUCOSE Routine 01/03/2022 10:37 PM EDT documented in this encounter Results * POCT Glucose (01/06/2022 2:32 PM EDT) Glucose, POC 197 65 - 199 mg/dL [facility] Comment: Supplemental ranges: <140 mg/dL before meals <180 mg/dL all other times of the day Blood 01/06/2022 2:32 PM EDT 01/06/2022 2:32 PM EDT Geraldo Salomon MD POINT OF CARE TEST O MUSHTAQ Performing Organization Address City/[facility]/ZIP Co de Phone Number [facility] [place] [address] * (ABNORMAL) POCT Glucose (01/06/2022 11:47 AM EDT) Glucose, POC 299(H) 65 - 199 mg/dL [facility] Comment: Supplemental ranges: <140 mg/dL before meals <180 mg/dL all other times of the day Blood 01/06/2022 11:4 7 AM EDT 01/06/2022 11:47 AM EDT Geraldo Salomon MD POINT OF CARE TEST Natalia LANDIN [facility] [place] [address] * POCT Glucose (01/06/2022 8:01 AM EDT) Glucose, POC 142 65 - 199 mg/dL [facility] Comment: Supplemental ranges: <140 mg/dL before meals <180 mg/dL all other times of the day Blood 01/06/2022 8:01 AM EDT 01/06/2022 8:01 AM EDT Geraldo Salomon MD POINT OF CARE TEST O RDERABLES Performing Organization Address City/[facility]/ZIP Co de Phone Number [facility] [place] [address] * Differential, Automated (01/06/2022 4:20 AM EDT) Neutrophil % 51.9 % [facility] Neutrophil Absolute 3.34 1.70 - 6.10 x10(3)/[facility] Lymph % 32.5 % [facility] Lymphocytes Abs 2.1 0.9 - 3.2 x10(3)/[facility] Monocyte % 13.7 % [facility] Monocyte Abs 0.9 0.3 - 0.9 x10(3)/[facility] Eos % 1.1 % [facility] Eosinophils Abs 0.1 0.0 - 0.4 x10(3)/[facility] Basophil % 0.6 % [facility] Baso Absolute 0.0 0.0 - 0.1 x10(3)/[facility] Immature Gran % 0.20 % [facility] Comment: Immature granulocytes(IG's)percentage and absolute count will include metamyelocytes, myelocytes, and promyelocytes. Blood smears from CBCs yielding IG's will be scanned manually for concordance. If this scan disagrees with the automated IG or if promyelocytes are noted, a manual differential will be performed. Immature Gran Absolute 0.01 0.00 - 0.04 x10(3)/[facility] Blood 01/06/2022 4:20 AM EDT 01/06/2022 4:39 AM EDT Narrative Resulting Agency Comment Spec In Lab Cam David MD HEMATOLOGY ORDERABLE S Performing Organization Address City/[facility]/ZIP Co de Phone Number [facility] [address] * (ABNORMAL) Hemogram (01/06/2022 4:20 AM EDT) White Blood Cell 6.4 4.0 - 9.5 x10(3)/mc L [facility] Red Blood Cell 3.86(L) 4.00 - 5.21 x10(6)/mc L [facility] Hemoglobin 12.4 11.7 - 15.5 g/dL [facility] Hematocrit 36.0 35.7 - 45.8 % [facility] Mean Cell Volume 93.3 82.6 - 94.4 fL [facility] Mean Cell Hemoglobin 32.1(H) 27.1 - 32.0 pg [facility] Mean Cell Hemoglobin Concentration 34.4 31.7 - 35.0 g/dL [facility] Platelet 177 145 - 357 x10(3)/ L [facility] RDW Standard Deviation 42.0 37.0 - 46.0 fL [facility] RDW coefficient of variation 12.1 11.5 - 14.1 % [facility] Mean Platelet Volume 10.0 7.6 - 12.9 fL [facility] NRBC% auto 0.0 % [facility] NRBC Absolute 0.000 0.000 - 0.000 x10(3)/ L [facility] Blood 01/06/2022 4:20 AM EDT 01/06/2022 4:39 AM EDT Narrative Resulting Agency Comment Spec In Lab Cam David MD HEMATOLOGY ORDERABLE S [facility] [place] [address] * Basic Metabolic Panel (non-fasting) (01/06/2022 4:20 AM EDT) Pathologist [facility] Glucose 123 65 - 199 mg/dL [facility] Comment:Diabetes: >=200 mg/d L plus symptoms Blood Urea Nitrogen 13 8 - 18 mg/dL [facility] Creatinine 0.77 0.70 - 1.20 mg/dL [facility] Sodium 137 135 - 145 mmol/L [facility] Potassium 4.0 3.5 - 5.0 mmol/L [facility] Comment: Please note: ??Patients with WBC >100,000 may have falsely elevated Potassium levels. ??For accurate Potassium quantification in these patients send serum separator tube (gold top) for subsequent determinations. ??Contact the Clinical Chemistry Laboratory if there are any questions. Chloride 102 98 - 107 mmol/L [facility] Carbon Dioxide 26 22 - 31 mmol/L [facility] Anion Gap 9 5 - 15 mmol/L [facility] Calcium 9.2 8.5 - 10.5 mg/dL [facility] Est Glomerular Filtration Rate 92 >=60 mL/min/1. 73 m?? [facility] Comment: This patient? s estimated [...] Narrative Resulting Agency Comment Spec In Lab Geraldo Salomon MD CHEMISTRY ORDERABLES [facility] [place] [address] * POCT Glucose (01/06/2022 3:46 AM EDT) Glucose, POC 129 65 - 199 mg/dL [facility] Comment: Supplemental ranges: <140 mg/dL before meals <180 mg/dL all other times of the day Blood 01/06/2022 3:46 AM EDT 01/06/2022 3:46 AM EDT Geraldo Salomon MD POINT OF CARE TEST O RDERAFRANKLIN Performing Organization Address City/[facility] Co de Phone Number [facility] [place] [address] * POCT Glucose (01/06/2022 12:06 AM EDT) Glucose, POC 125 65 - 199 mg/dL [facility] Comment: Supplemental ranges: <140 mg/dL before meals <180 mg/dL all other times of the day Blood 01/06/2022 12:0 6 AM EDT 01/06/2022 12:06 AM EDT Geraldo Salomon MD POINT OF CARE TEST O SANDEEPERAFRANKLIN Performing Organization Address [facility] Co de Phone Number [facility] [place] [address] * (ABNORMAL) POCT Glucose (01/05/2022 8:11 PM EDT) Glucose, POC 220(H) 65 - 199 mg/dL [facility] Comment: Supplemental ranges: <140 mg/dL before meals <180 mg/dL all other times of the day Blood 01/05/2022 8:11 PM EDT 01/05/2022 8:11 PM EDT Geraldo Salomon MD POINT OF CARE TEST O RDERAFRANKLIN Performing Organization Address [facility] Co de Phone Number [facility] [place] [place] [address] * POCT Glucose (01/05/2022 6:00 PM EDT) Glucose, POC 190 65 - 199 mg/dL [facility] Comment: Supplemental ranges: <140 mg/dL before meals <180 mg/dL all other times of the day Blood 01/05/2022 6:00 PM EDT 01/05/2022 6:00 PM EDT Geraldo Salomon MD POINT OF CARE TEST O RDERAFRANKLIN Performing Organization Address City/[facility] Co de Phone Number [facility] [place] [place] [address] * POCT Glucose (01/05/2022 3:53 PM EDT) Pathologist [facility] Glucose, POC 161 65 - 199 mg/dL [facility] Comment: Supplemental ranges: <140 mg/dL before meals <180 mg/dL all other times of the day Blood 01/05/2022 3:53 PM EDT 01/05/2022 3:53 PM EDT Geraldo Salomon MD POINT OF CARE TEST O MUSHTAQ Performing Organization Address City/[facility]/ZIP Co de Phone Number [facility] [place] [address] * (ABNORMAL) Differential, Automated (01/05/2022 11:45 AM EDT) [facility] Neutrophil % 65.9 % [facility] Neutrophil Absolute 4.46 1.70 - 6.10 x10(3)/mc L [facility] Lymph % 19.0 % [facility] Lymphocytes Abs 1.3 0.9 - 3.2 x10(3)/mc L [facility] Monocyte % 14.2 % [facility] Monocyte Abs 1.0(H) 0.3 - 0.9 x10(3)/mc L [facility] Eos % 0.1 % [facility] Eosinophils Abs 0.0 0.0 - 0.4 x10(3)/mc L [facility] Basophil % 0.4 % [facility] Baso Absolute 0.0 0.0 - 0.1 x10(3)/mc L [facility] Immature Gran % 0.40 % [facility] Comment: Immature granulocytes(IG's)percentage and absolute count will include metamyelocytes, myelocytes, and promyelocytes. Blood smears from CBCs yielding IG's will be scanned manually for concordance. If this scan disagrees with the automated IG or if promyelocytes are noted, a manual differential will be performed. Immature Gran Absolute 0.03 0.00 - 0.04 x10(3)/mc L [facility] Blood 01/05/2022 11:4 5 AM EDT 01/05/2022 12:08 PM EDT Narrative Resulting Agency Comment Spec In Lab Cam David MD HEMATOLOGY ORDERABLE S [facility] [place] [address] * (ABNORMAL) Hemogram (01/05/2022 11:45 AM EDT) White Blood Cell 6.8 4.0 - 9.5 x10(3)/ L [facility] Red Blood Cell 3.92(L) 4.00 - 5.21 x10(6)/mc L [facility] Hemoglobin 12.5 11.7 - 15.5 g/dL [facility] Hematocrit 36.4 35.7 - 45.8 % [facility] Mean Cell Volume 92.9 82.6 - 94.4 fL [facility] Mean Cell Hemoglobin 31.9 27.1 - 32.0 pg [facility] Mean Cell Hemoglobin Concentration 34.3 31.7 - 35.0 g/dL [facility] Platelet 187 145 - 357 x10(3)/mc L [facility] RDW Standard Deviation 41.9 37.0 - 46.0 fL [facility] RDW coefficient of variation 12.3 11.5 - 14.1 % [facility] Mean Platelet Volume 10.4 7.6 - 12.9 fL [facility] NRBC% auto 0.0 % [facility] NRBC Absolute 0.000 0.000 - 0.000 x10(3)/mc L [facility] Blood 01/05/2022 11:4 5 AM EDT 01/05/2022 12:08 PM EDT Narrative Resulting Agency Comment Spec In Lab Cam David MD HEMATOLOGY ORDERABLE S [facility] [place] [address] * Basic Metabolic Panel (non-fasting) (01/05/2022 11:45 AM EDT) Glucose 140 65 - 199 mg/dL [facility] Comment:Diabetes: >=200 mg/d L plus symptoms Blood Urea Nitrogen 10 8 - 18 mg/dL [facility] Creatinine 0.75 0.70 - 1.20 mg/dL [facility] Sodium 137 135 - 145 mmol/L [facility] Potassium 3.9 3.5 - 5.0 mmol/L [facility] Comment: Please note: ??Patients with WBC >100,000 may have falsely elevated Potassium levels. ??For accurate Potassium quantification in these patients send serum separator tube (gold top) for subsequent determinations. ??Contact the Clinical Chemistry Laboratory if there are any questions. Chloride 101 98 - 107 mmol/L [facility] Carbon Dioxide 25 22 - 31 mmol/L [facility] Anion Gap 11 5 - 15 mmol/L [facility] Calcium 8.6 8.5 - 10.5 mg/dL [facility] Est Glomerular Filtration Rate 95 >=60 mL/min/1. 73 m?? [facility] Comment: This patient? s estimated glomerular filtration rate (eGFR) is between 95 mL/min/1.73 m2 (patients with less muscle mass) and 110 mL/min/1.73 m2 (patients with more muscle mass) [...] and symptoms in addition to eGFR. Blood 01/05/2022 11:4 5 AM EDT 01/05/2022 12:08 PM EDT Narrative Resulting Agency Comment Spec In Lab Geraldo Salomon MD CHEMISTRY ORDERABLES Performing Organization Address [facility] Co de Phone Number [facility] [place] [address] * POCT Glucose (01/05/2022 11:40 AM EDT) Pathologist [facility] Glucose, POC 148 65 - 199 mg/dL [facility] Comment: Supplemental ranges: <140 mg/dL before meals <180 mg/dL all other times of the day Blood 01/05/2022 11:4 0 AM EDT 01/05/2022 11:40 AM EDT Geraldo Salomon MD POINT OF CARE TEST O RDERABLES Performing Organization Address [facility] Co de Phone Number [facility] [place] [address] * EKG 12 Lead (01/05/2022 8:23 AM EDT) Ventricular rate 78 BPM MUSE SYSTEM Atrial Rate 78 BPM MUSE SYSTEM P-R Interval 132 ms MUSE SYSTEM QRS Duration 106 ms MUSE SYSTEM Q-T Interval 364 ms MUSE SYSTEM QTC Calculated (Bezet) 414 ms MUSE SYSTEM Calculated P Revelo 78 degrees MUSE SYSTEM Calculated R Revelo -65 degrees MUSE SYSTEM Calculated T Revelo -33 degrees MUSE SYSTEM INTERPRETATION Normal sinus rhythm Left axis deviation Incomplete right bundle branch block Cannot rule out Inferior infarct , age undetermined Abnormal ECG When compared with ECG of 04-JAN-2022 00:45, Incomplete right bundle branch block is now Present Minimal criteria for Inferior infarct are now Present Confirmed by Storm Lewis ([id number]) on 01/05/2022 3:44:16 PM MUSE SYSTEM 01/05/2022 8:23 AM EDT 01/05/2022 3:44 PM EDT Geraldo Salomon MD ECG ORDERABLES MUSE SYSTEM * (ABNORMAL) POCT Glucose (01/05/2022 7:43 AM EDT) Glucose, POC 213(H) 65 - 199 mg/dL [facility] Comment: Supplemental ranges: <140 mg/dL before meals <180 mg/dL all other times of the day Blood 01/05/2022 7:43 AM EDT 01/05/2022 7:43 AM EDT Geraldo Salomon MD POINT OF CARE TEST O RDERABLES Performing Organization Address [facility]/ZIP Co de Phone Number [facility] [place] [place] [address] * (ABNORMAL) POCT Glucose (01/05/2022 6:45 AM EDT) Glucose, POC 214(H) 65 - 199 mg/dL [facility] Comment: Supplemental ranges: <140 mg/dL before meals <180 mg/dL all other times of the day Blood 01/05/2022 6:45 AM EDT 01/05/2022 6:45 AM EDT Geraldo Salomon MD POINT OF CARE TEST O RDERAFRANKLIN Performing Organization Address City/[facility]/ZIP Co de Phone Number [facility] [place] [address] * POCT Glucose (01/05/2022 5:31 AM EDT) Glucose, POC 89 65 - 199 mg/dL [facility] Comment: Supplemental ranges: <140 mg/dL before meals <180 mg/dL all other times of the day Blood 01/05/2022 5:31 AM EDT 01/05/2022 5:31 AM EDT Geraldo Salomon MD POINT OF CARE TEST O MUSHTAQ [facility] [address] * (ABNORMAL) POCT Glucose (01/05/2022 5:09 AM EDT) Glucose, POC 59(L) 65 - 199 mg/dL [facility] Comment: Supplemental ranges: <140 mg/dL before meals <180 mg/dL all other times of the day Blood 01/05/2022 5:09 AM EDT 01/05/2022 5:09 AM EDT Geraldo Salomon MD POINT OF CARE TEST O SANDEEPERAFRANKLIN Performing Organization Address [facility]/ZIP Co de Phone Number [facility] [place] [address] * POCT Glucose (01/05/2022 12:45 AM EDT) Glucose, POC 96 65 - 199 mg/dL [facility] Comment: Supplemental ranges: <140 mg/dL before meals <180 mg/dL all other times of the day Blood 01/05/2022 12:4 5 AM EDT 01/05/2022 12:45 AM EDT Geraldo Salomon MD POINT OF CARE TEST O SANDEEPERAFRANKLIN [facility] [place] [address] * POCT Glucose (01/04/2022 7:28 PM EDT) Glucose, POC 104 65 - 199 mg/dL [facility] Comment: Supplemental ranges: <140 mg/dL before meals <180 mg/dL all other times of the day Blood 01/04/2022 7:28 PM EDT 01/04/2022 7:28 PM EDT Geraldo Salomon MD POINT OF CARE TEST O MUSHTAQ Performing Organization Address City/[facility]/ZIP Co de Phone Number [facility] [place] [place] [address] * POCT Glucose (01/04/2022 4:04 PM EDT) Glucose, POC 190 65 - 199 mg/dL [facility] Comment: Supplemental ranges: <140 mg/dL before meals <180 mg/dL all other times of the day Blood 01/04/2022 4:04 PM EDT 01/04/2022 4:04 PM EDT Geraldo Salomon MD POINT OF CARE TEST O MUSHTAQ Performing Organization Address [facility] Co de Phone Number [facility] [place] [address] * POCT Glucose (01/04/2022 12:09 PM EDT) Glucose, POC 157 65 - 199 mg/dL [facility] Comment: Supplemental ranges: <140 mg/dL before meals <180 mg/dL all other times of the day Blood 01/04/2022 12:0 9 PM EDT 01/04/2022 12:09 PM EDT Geraldo Salomon MD POINT OF CARE TEST O MUSHTAQ Performing Organization Address City/[facility] Co de Phone Number [facility] [place] [place] [address] * ECHO COMPLETE W CONTRAST (01/04/2022 11:08 AM EDT) EF 60 HEARTLAB SYSTEM Anatomical Region Laterality Modality Cardiac Other 01/04/2022 10:3 3 AM EDT Narrative 01/04/2022 11:25 AM EDT [facility] ?[address] ? [place] [address] ?Voice: ?Fax: ? Echocardiogram Report Name: SILVER, AFUA A ? Study Date: 01/04/2022 10:33 AM ? Patient Location: [facility] CV19 A : 1975 ? Height: 65 in ? Account: [id number] Age: 46 yrs ? Weight: 148 lb Gender: Female ?BSA: 1.7 m2 Ordering Physician: MOI LEDEZMA Referring Physician: MT VALENZUELA Exam Location: [facility]. Interpretation Summary Technically difficult. Left ventricular systolic function is normal. Left ventricular ejection fraction is estimated visually at 60%. There is hypokinesis of the basal and mid inferior wall, the basal inferoseptum, and the mid inferolateral wall. The right ventricle is of normal size. Right ventricular systolic function is normal. Pulmonary artery hypertension could not be assessed due to inadequate tricuspid regurgitation jet. There is no valve disease. Procedure Complete-[id number]. Image enhancement Optison was used for left ventricular opacification. Suboptimal quality. Left Ventricle Left ventricle is of normal size. Wall thickness is normal. There is no ventricular septal defect. Left ventricular systolic function is normal. Left ventricular ejection fraction is estimated visually at 60%. There are segmental wall motion abnormalities. Right Ventricle The right ventricle is of normal size. Right ventricular systolic function is normal. Left Atrium The left atrium is normal. There is no evidence for a patent foramen ovale. Right Atrium The right atrium is normal. Aortic Valve The aortic valve is structurally normal. There is no aortic stenosis. There is no aortic regurgitation. Mitral Valve The mitral valve is structurally and functionally normal. There is trace mitral regurgitation. Tricuspid Valve The tricuspid valve is structurally normal. There is trace tricuspid regurgitation. Pulmonic Valve The pulmonic valve appears to be structurally and functionally normal. Great Arteries The aortic root is of normal size. No abnormalities are identified. Ascending aorta is normal in size. Venous Inferior vena cava is normal in size. Inferior vena cava collapse less than 50% with respiration. Pericardium/Pleural The pericardium appears normal. Hemodynamics Pulmonary artery hypertension could not be assessed due to inadequate tricuspid regurgitation jet. Left ventricular filling pressure is normal. Left ventricular diastolic function is normal. Ejection Fraction ?2D Measurements ? Volumes EF(MOD-bp): 54.5 % ?IVSd: 0.64 cm ?LAV(MOD- bp) Indexed: ?LVIDd: 4.0 cm ? 14.3 ml/m2 ?LVIDs: 2.6 cm ?EDV (MOD-bp) Index: 47.8 ?LVPWd: 0.67 cm ? ESV (MOD-bp) Index: 21.8 ?LV mass(C)d: 70.6 grams ?SV(LVOT): 55.0 ml ?LV mass(C)dI: 40.6 grams/m2 ?SI(LVOT): 31.6 ml/m2 ?Ao root diam: 2.4 cm ?Ao root diam index: 1.4 ?asc Aorta Diam: 2.6 cm ?LVOT diam: 1.8 cm ?TAPSE_phl: 1.9 cm Doppler MV E max zach: 105.2 cm/sec MV A max zach: 71.2 cm/sec MV E/A: 1.5 MV dec time: 0.20 sec Lat Peak E' Zach: 14.1 cm/sec E/ e' (lat): 7.5 Med Peak E' Zach: 11.6 cm/sec E/e' (med): 9.1 E/e' Average: 8.3 I ?WMSI = 1.25 ? % Normal = 75 ?Segments ??Size X - Cannot ?2 - ?4 - ?1-2 ? small Interpret ?1 - Normal ?? Hypokinetic 3 - Akinetic Dyskinetic ?? 3-5 ? moderate 5 - ? 6-14 ?large Aneurysmal ?15-16 ?? diffuse Procedure Note Geraldo Salomon MD - 01/04/2022 [place] [address] Voice: Fax: Echocardiogram Report Name: AFUA ROSALES Study Date: 210:33 AM Patient Location: [address] : 1975 Height: 65 in Account: [id number] Age: 46 yrs Weight: 148 lb Gender: Female BSA: 1.7 m2 Ordering Physician: MOI LEDEZMA Referring Physician: MT VALENZUELA Exam Location: [facility]. Interpretation Summary Technically difficult. Left ventricular systolic function is normal. Left ventricular ejectionfraction is estimated visually at 60%. There is hypokinesis of the basal and midinferior wall, the basal inferoseptum, and the mid inferolateral wall. The right ventricle is of normal size. Right ventricular systolic functionis normal. Pulmonary artery hypertension could not be assessed due toinadequate tricuspid regurgitation jet. There is no valve disease. Procedure Complete-[id number]. Image enhancement Optison was used for left ventricular opacification. Suboptimal quality. Left Ventricle Left ventricle is of normal size. Wall thickness is normal. There is no ventricular septal defect. Left ventricular systolic function is normal.Left ventricular ejection fraction is estimated visually at 60%. There aresegmental wall motion abnormalities. Right Ventricle The right ventricle is of normal size. Right ventricular systolic functionis normal. Left Atrium The left atrium is normal. There is no evidence for a patent foramenovale. Right Atrium The right atrium is normal. Aortic Valve The aortic valve is structurally normal. There is no aortic stenosis.There is no aortic regurgitation. Mitral Valve The mitral valve is structurally and functionally normal. There is tracemitral regurgitation. Tricuspid Valve The tricuspid valve is structurally normal. There is trace tricuspid regurgitation. Pulmonic Valve The pulmonic valve appears to be structurally and functionally normal. Great Arteries The aortic root is of normal size. No abnormalities are identified.Ascending aorta is normal in size. Venous Inferior vena cava is normal in size. Inferior vena cava collapse lessthan 50% with respiration. Pericardium/Pleural The pericardium appears normal. Hemodynamics Pulmonary artery hypertension could not be assessed due to inadequatetricuspid regurgitation jet. Left ventricular filling pressure is normal. Leftventricular diastolic function is normal. Ejection Fraction 2D Measurements Volumes EF(MOD-bp): 54.5 % IVSd: 0.64 cm LAV(MOD-bp)Indexed: LVIDd: 4.0 cm 14.3 ml/m2 LVIDs: 2.6 cm EDV (MOD-bp)Index: 47.8 LVPWd: 0.67 cm ESV (MOD-bp)Index: 21.8 LV mass(C)d: 70.6 grams SV(LVOT): 55.0ml LV mass(C)dI: 40.6 grams/m2 SI(LVOT): 31.6ml/m2 Ao root diam: 2.4 cm Ao root diam index: 1.4 asc Aorta Diam: 2.6 cm LVOT diam: 1.8 cm TAPSE_phl: 1.9 cm Doppler MV E max zach: 105.2 cm/sec MV A max zach: 71.2 cm/sec MV E/A: 1.5 MV dec time: 0.20 sec Lat Peak E' Zach: 14.1 cm/sec E/ e' (lat): 7.5 Med Peak E' Zach: 11.6 cm/sec E/e' (med): 9.1 E/e' Average: 8.3 I WMSI = 1.25 % Normal = 75 SegmentsSize X - Cannot 2 - 4 - 1-2small Interpret 1 - Normal Hypokinetic 3 - Akinetic Dyskinetic 3-5moderate 5 - 6-14large Aneurysmal 15-16diffuse Moi Ledezma MD ECHO ORDERABLES * POCT Glucose (01/04/2022 10:05 AM EDT) Glucose, POC 100 65 - 199 mg/dL [facility] Comment: Supplemental ranges: <140 mg/dL before meals <180 mg/dL all other times of the day Blood 01/04/2022 10:0 5 AM EDT 01/04/2022 10:05 AM EDT Geraldo Salomon MD POINT OF CARE TEST O RDERAFRANKLIN [facility] [place] [address] * POCT Glucose (01/04/2022 8:23 AM EDT) Glucose, POC 72 65 - 199 mg/dL [facility] Comment: Supplemental ranges: <140 mg/dL before meals <180 mg/dL all other times of the day Blood 01/04/2022 8:23 AM EDT 01/04/2022 8:23 AM EDT Moi Ledezma MD POINT OF CARE TEST O RDERAFRANKLIN Performing Organization Address City/[facility]/ZIP Co de Phone Number [facility] [place] [address] * POCT Glucose (01/04/2022 5:03 AM EDT) Glucose, POC 143 65 - 199 mg/dL [facility] Comment: Supplemental ranges: <140 mg/dL before meals <180 mg/dL all other times of the day Blood 01/04/2022 5:03 AM EDT 01/04/2022 5:03 AM EDT Moi Ledezma MD POINT OF CARE TEST O RDERABLES [facility] [place] [address] * POCT Glucose (01/04/2022 3:01 AM EDT) Glucose, POC 182 65 - 199 mg/dL [facility] Comment: Supplemental ranges: <140 mg/dL before meals <180 mg/dL all other times of the day Blood 01/04/2022 3:01 AM EDT 01/04/2022 3:01 AM EDT Moi Ledezma MD POINT OF CARE TEST O RDERABLES [facility] [place] [address] * (ABNORMAL) BLOOD GAS 2 VENOUS (01/04/2022 1:44 AM EDT) pH, Venous 7.33 7.32 - 7.42 [facility] PCO2, Venous 45 41 - 51 mmHg [facility] PO2, Venous 52(H) 25 - 40 mmHg [facility] Bicarbonate, Venous 23.5 mmol/L [facility] Base Excess, Venous -2.7 mmol/L [facility] Hgb Blood Gas 13.1 11.7 - 15.5 g/dL [facility] Oxyhemoglobin, Venous 86.6 % [facility] Carboxyhemoglob in, Venous 0.3 % [facility] Comment: Nonsmokers: 0.5-1.5% COHB Smokers: Variable, but usually less than 10% Toxic: 20-30% COHB Lethal: Greater than 60% COHB Methemoglobin, Venous 0.8 <=1.5 % [facility] Na Whole Blood 134(L) 135 - 145 mmol/L [facility] K Whole Blood 4.1 3.5 - 5.0 mmol/L [facility] Comment: Please note: Patients with WBC >100,000 may have falsely elevated Potassium levels. Contact the Clinical Chemistry Laboratory if there are any questions. ICa Whole Blood 1.21 1.15 - 1.33 mmol/L [facility] Comment: Note: ??Total bilirubin higher than 20 mg/dL may lead to falsely low ionized calcium. CL Whole Blood 104 98 - 107 mmol/L [facility] Gluc Whole Bld 215(H) 65 - 199 mg/dL [facility] Comment:Diabetes: >=200 mg/d L plus symptoms Lactate WB 0.8 0.5 - 2.2 mmol/L [facility] Fraction of Inspired Oxygen, Venous 21 % [facility] Blood Gas Source Venous [facility] Temperature, Venous 35.8 Celsius [facility] Blood 01/04/2022 1:44 AM EDT 01/04/2022 1:44 AM EDT Moi Ledezma MD POINT OF CARE TEST O RDERABLES Performing Organization Address City/State/[facility] Co de Phone Number [facility] [place] [address] * (ABNORMAL) Differential, Automated (01/04/2022 12:50 AM EDT) Neutrophil % 86.1 % [facility] Neutrophil Absolute 5.92 1.70 - 6.10 x10(3)/mc L [facility] Lymph % 9.6 % [facility] Lymphocytes Abs 0.7(L) 0.9 - 3.2 x10(3)/mc L [facility] Monocyte % 3.6 % [facility] Monocyte Abs 0.2(L) 0.3 - 0.9 x10(3)/mc L [facility] Eos % 0.1 % [facility] Eosinophils Abs 0.0 0.0 - 0.4 x10(3)/mc L [facility] Basophil % 0.3 % [facility] Baso Absolute 0.0 0.0 - 0.1 x10(3)/mc L [facility] Immature Gran % 0.30 % [facility] Comment: Immature granulocytes(IG's)percentage and absolute count will include metamyelocytes, myelocytes, and promyelocytes. Blood smears from CBCs yielding IG's will be scanned manually for concordance. If this scan disagrees with the automated IG or if promyelocytes are noted, a manual differential will be performed. Immature Gran Absolute 0.02 0.00 - 0.04 x10(3)/mc L [facility] Blood 01/04/2022 12:5 0 AM EDT 01/04/2022 1:24 AM EDT Narrative Resulting Agency Comment Spec In Lab Sumanth Barnrad MD HEMATOLOGY ORDERABL ES [facility] [place] [address] * (ABNORMAL) Hemogram (01/04/2022 12:50 AM EDT) White Blood Cell 6.9 4.0 - 9.5 x10(3)/mc L [facility] Red Blood Cell 3.77(L) 4.00 - 5.21 x10(6)/mc L [facility] Hemoglobin 11.9 11.7 - 15.5 g/dL [facility] Hematocrit 34.4(L) 35.7 - 45.8 % [facility] Mean Cell Volume 91.2 82.6 - 94.4 fL [facility] Mean Cell Hemoglobin 31.6 27.1 - 32.0 pg [facility] Mean Cell Hemoglobin Concentration 34.6 31.7 - 35.0 g/dL [facility] Platelet 197 145 - 357 x10(3)/mc L [facility] RDW Standard Deviation 40.7 37.0 - 46.0 fL [facility] RDW coefficient of variation 12.1 11.5 - 14.1 % [facility] Mean Platelet Volume 10.4 7.6 - 12.9 fL [facility] NRBC% auto 0.0 % [facility] NRBC Absolute 0.000 0.000 - 0.000 x10(3)/mc L [facility] Blood 01/04/2022 12:5 0 AM EDT 01/04/2022 1:24 AM EDT Narrative Resulting Agency Comment Spec In Lab Sumanth Barnard MD HEMATOLOGY ORDERABL ES Performing Organization Address [facility] Co de Phone Number [facility] [place] [address] * (ABNORMAL) Beta Hydroxybutyrate (01/04/2022 12:50 AM EDT) Beta-hydroxybu turate 0.95(H) 0.00 - 0.30 mmol/L [facility] Comment: Reference range: ??0.00-0.30 mmol/L, based on an overnight fast. ??Children may be higher. Blood 01/04/2022 12:5 0 AM EDT 01/04/2022 1:24 AM EDT Narrative Resulting Agency Comment Spec In Lab Moi Ledezma MD CHEMISTRY ORDERABLES Performing Organization Address [facility] de Phone Number [facility] [place] [address] * (ABNORMAL) Hemoglobin A1c (01/04/2022 12:50 AM EDT) Hemoglobin A1c 8.0(H) 4.3 - 5.6 % [facility] Comment: Reference Range: 4.3 - [...] Mellitus, Diabetes Care 2013; 36: Suppl. 1, E97-53 Estimated Average Glucose 183 mg/dL [facility] Comment: eAG equivalents for HbA1c [...] into estimated average glucose values. ??Diabetes Care 2008:31(8):6569-9969. Blood 01/04/2022 12:5 0 AM EDT 01/04/2022 1:24 AM EDT Narrative Resulting Agency Comment Spec In Lab Moi Ledezma MD CHEMISTRY ORDERABLES Performing Organization Address City/State/[facility] Co de Phone Number [facility] [place] [place] [address] * (ABNORMAL) Troponin (01/04/2022 12:50 AM EDT) Troponin-T 0.24(H) 0.00 - 0.00 ng/mL [facility] Comment: The 99th percentile for Troponin T is less than 0.01 ng/mL, any detectable cTnT concentration using this assay should be considered elevated. According to the third universal definition of myocardial infarction the following criteria with a clinical presentation consistent with acute myocardial ischemia meets the diagnosis for a myocardial infarction (DC). Detection of a rise and/or fall of cTnT, with at least one value greater than the 99th percentile (> or = 0.01) and with at least one of the following ?? Symptoms of ischemia ?? New or presumed new significant MT-rsndfaz-T wave (ST-T) changes or new left bundle branch block (LBBB) ?? Development of pathologic Q waves in the ECG ?? Imaging evidence of new loss of viable myocardium or new regional wall motion abnormality ?? Identification of an intracoronary thrombus by angiography or autopsy Samples for cTnT testing should be obtained serially upon first assessment and again 3 to 6 hours later. If the clinical suspicion is high and previous samples have been negative an additional sample may be indicated. Reference: Third [place] Definition of Myocardial Infarction. Journal of the [place] [employer] 2012;60:1581-98 Blood 01/04/2022 12:5 0 AM EDT 01/04/2022 1:24 AM EDT Narrative Resulting Agency Comment Spec In Lab Moi Ledezma MD CHEMISTRY ORDERABLES Performing Organization Address [facility] Co de Phone Number [facility] [place] [address] * pro-Brain Natriuretic Peptide (01/04/2022 12:50 AM EDT) NT-proBNP 56 <=124 pg/mL [facility] Blood 01/04/2022 12:5 0 AM EDT 01/04/2022 1:24 AM EDT Narrative Resulting Agency Comment Spec In Lab Moi Ledezma MD CHEMISTRY ORDERABLES Performing Organization Address [facility]/ZIP Co de Phone Number [facility] [place] [address] * LDL Cholesterol, Direct (01/04/2022 12:50 AM EDT) LDL Cholesterol, Direct 66 mg/dL [facility] Comment: Lowest Risk: <100 mg/dL Lower Risk: 100-129 mg/dL Borderline High Risk: 130-159 mg/dL High Risk: 160-189 mg/dL Very High Risk: >pu=871 mg/dL Blood 01/04/2022 12:5 0 AM EDT 01/04/2022 1:24 AM EDT Narrative Resulting Agency Comment Spec In Lab Moi Ledezma MD CHEMISTRY ORDERABLES [facility] [place] [place] [address] * HDL/Cholesterol Profile (01/04/2022 12:50 AM EDT) Cholesterol, Total 136 mg/dL [facility] Comment: Lower Risk: <200 mg/dL Average Risk: 200-239 mg/dL Higher Risk: >et=300 mg/dL HDL Cholesterol 63 mg/dL [facility] Comment: Males: ?? Higher Risk: <40 mg/dL Females: ?? Higher Risk: <50 mg/dL Cholesterol/HDL Ratio 2.2 ratio [facility] Chol/HDL Interpretation See Note [facility] Comment: Lipid management should be guided by a patient? s ASCVD risk, goals and preferences. ACC/AHA Guidelines recommend high intensity statin if clinical ASCVD or LDL greater than or equal to 190 mg/dL. http://[employer].com/HEJ-XLT-Jqxthmzqa Measure LDL if Total Cholesterol minus HDL Cholesterol is greater than 220 mg/dL. Adults aged 40-75 with LDL 70-189 mg/dL should have their 10 year ASCVD risk estimated with the ACC/AHA ASCVD risk auto damage estimator http://tools.acc.org/NKOEV-Jnpx-Bjtbzxnrz/ Statin should be discussed if risk greater than or equal to 7.5% in non-diabetics. With diabetes, moderate intensity statin is recommended if risk less than 7.5%, high intensity if risk greater than or equal to 7.5%. Annual lipid monitoring on statins is not necessary. Lifestyle modification is a critical component of ASCVD risk reduction. Blood 01/04/2022 12:5 0 AM EDT 01/04/2022 1:24 AM EDT Narrative Resulting Agency Comment Spec In Lab Moi Ledezma MD CHEMISTRY ORDERABLES Performing Organization Address [facility] de Phone Number [facility] [address] * TSH (01/04/2022 12:50 AM EDT) Thyroid Stimulating Hormone 0.75 0.27 - 4.20 mcIU/mL [facility] Comment: Reference Interval (mcIU/mL): Females: ??First Trimester: 0.23-3.88 ??Second Trimester: 0.22-3.90 ??Third Trimester: 0.44-4.66 Blood 01/04/2022 12:5 0 AM EDT 01/04/2022 1:24 AM EDT Narrative Resulting Agency Comment Spec In Lab Moi eLdezma MD CHEMISTRY ORDERABLES Performing Organization Address [facility] de Phone Number [facility] [place] [address] * Phosphorus (01/04/2022 12:50 AM EDT) Phosphorus 2.7 2.5 - 4.5 mg/dL [facility] Blood 01/04/2022 12:5 0 AM EDT 01/04/2022 1:24 AM EDT Narrative Resulting Agency Comment Spec In Lab Moi Ledezma MD CHEMISTRY ORDERABLES Performing Organization Address [facility] Co de Phone Number [facility] [place] [address] * Magnesium (01/04/2022 12:50 AM EDT) Magnesium 0.84 0.69 - 1.07 mmol/L [facility] Blood 01/04/2022 12:5 0 AM EDT 01/04/2022 1:24 AM EDT Narrative Resulting Agency Comment Spec In Lab Moi Ledezma MD CHEMISTRY ORDERABLES Performing Organization Address City/[facility]/ZIP Co de Phone Number [facility] [place] [place] [address] * (ABNORMAL) Basic Metabolic Panel (non-fasting) (01/04/2022 12:50 AM EDT) Glucose 224(H) 65 - 199 mg/dL [facility] Comment:Diabetes: >=200 mg/d L plus symptoms Blood Urea Nitrogen 11 8 - 18 mg/dL [facility] Creatinine 0.62(L) 0.70 - 1.20 mg/dL [facility] Sodium 137 135 - 145 mmol/L [facility] Potassium 4.1 3.5 - 5.0 mmol/L [facility] Comment: Please note: ??Patients with WBC >100,000 may have falsely elevated Potassium levels. ??For accurate Potassium quantification in these patients send serum separator tube (gold top) for subsequent determinations. ??Contact the Clinical Chemistry Laboratory if there are any questions. Chloride 105 98 - 107 mmol/L [facility] Carbon Dioxide 22 22 - 31 mmol/L [facility] Anion Gap 10 5 - 15 mmol/L [facility] Calcium 8.5 8.5 - 10.5 mg/dL [facility] Est Glomerular Filtration Rate 107 >=60 mL/min/1. 73 m?? [facility] Comment: This patient? s estimated glomerular filtration rate (eGFR) is between 107 mL/min/1.73 m2 (patients with less muscle mass) and 124 mL/min/1.73 m2 (patients with more muscle mass) [...] and symptoms in addition to eGFR. Blood 01/04/2022 12:5 0 AM EDT 01/04/2022 1:24 AM EDT Narrative Resulting Agency Comment Spec In Lab Moi Ledezma MD CHEMISTRY ORDERABLES [facility] [place] [place] [address] * COVID-19 PCR (01/04/2022 12:50 AM EDT) SARS-CoV-2 RNA (Rapid) Not Detected Not Detected [facility] Comment: This result should be interpreted in combination with the clinical observations, patient history and epidemiological information. For testing of asymptomatic individuals, assay performance characteristics and clinical utility have not been evaluated. Testing for SARS-CoV-2 (Severe acute respiratory syndrome coronavirus 2, formerly known as 2019 novel coronavirus or 2019-nCoV) to aid in the diagnosis of COVID-19 is performed using the Simplexa COVID-19 Direct Assay by [employer] as authorized by the FDA issued Emergency Use Authorization (EUA). This assay is intended for In-vitro Diagnostic (IVD) use with nasopharyngeal swabs collected from individuals meeting the CDC criteria for testing. The assay is performed based on the instructions for use and additional guidance provided by the FDA. Testing is performed in the Microbiology Laboratory within the Department of Pathology and Laboratory Medicine at [facility], certified under the Clinical Laboratory Improvement Amendments of 1988 (CLIA), 42 U.S.C. section 263a, to perform high complexity tests. Assay performance has been verified according to clinical laboratory regulatory requirements. Test results are provided above. A result of Not Detected indicates that the viral RNA target is not present but does not preclude SARS-CoV-2 infection. False negative results may occur if a specimen is improperly collected, transported or handled; if amplification inhibitors are present; or if inadequate numbers of viral particles are present in the specimen. A result of Detected suggests a current or recent infection and the patient is presumed to be infected. Positive and negative predictive values for this test are highly dependent on disease prevalence. A result of Invalid indicates the inability to conclusively determine the presence or absence of SARS-CoV-2 RNA in the sample which can be due to a variety of factors. Recollection is recommended in the case of an invalid result. CDC COVID-19 criteria for testing on human specimens and clinical management guidance information are available at the CDC Coronavirus Disease 2019 (COVID-19) webpage under Information for Healthcare Professionals (https://www.cdc.gov/coronavirus/2019-ncov/hcp/index.html). Additional information about this and other EUA tests can be found in provider and patient fact sheets at the following FDA website: https://www.fda.gov/medical-devices/pugnpquutum-wytctuj-4948-gjejt-85-zzmxkpmsa- use-a cukmwrdnybmua-drsnjns-mghizot/qkyjz-jvxrhisonbz-dkcj SARS-CoV-2 Source PANTRY CHEF Swab MA RY [facility] Nasopharyngeal Swab 01/05/20 12:50 AM EDT 01/04/2022 1:48 AM EDT Comment:Symptoms->Surveillan ce Narrative Resulting Agency Comment Spec In Lab Moi Ledezma MD MICROBIOLOGY - GENER AL ORDERABLES Performing Organization Address City/[facility]/ZIP Co de Phone Number [facility] [place] [address] * EKG 12 Lead (01/04/2022 12:45 AM EDT) Ventricular rate 94 BPM MUSE SYSTEM Atrial Rate 94 BPM MUSE SYSTEM P-R Interval 140 ms MUSE SYSTEM QRS Duration 92 ms MUSE SYSTEM Q-T Interval 370 ms MUSE SYSTEM QTC Calculated (Bezet) 462 ms MUSE SYSTEM Calculated P Revelo 69 degrees MUSE SYSTEM Calculated R Revelo 2 degrees MUSE SYSTEM Calculated T Revelo 89 degrees MUSE SYSTEM INTERPRETATION Normal sinus rhythm Low voltage QRS Nonspecific ST and T wave abnormality Abnormal ECG When compared with ECG of 13-NOV-1999 14:45, ST now depressed in Anterior leads Nonspecific T wave abnormality now evident in Lateral leads Confirmed by MD Umm, Geraldo Espinoza ([id number]) on 01/04/2022 1:03:04 PM MUSE SYSTEM 01/04/2022 12:4 5 AM EDT 01/04/2022 1:03 PM EDT Moi Ledezma MD ECG ORDERABLES MUSE SYSTEM * POCT Glucose (01/04/2022 12:07 AM EDT) Glucose, POC 126 65 - 199 mg/dL [facility] Comment: Supplemental ranges: <140 mg/dL before meals <180 mg/dL all other times of the day Blood 01/04/2022 12:0 7 AM EDT 01/04/2022 12:07 AM EDT Moi Ledezma MD POINT OF CARE TEST O RDERABLES [facility] [place] [address] * CARDIAC CATHETERIZATION (01/03/2022 11:45 PM EDT) Anatomical Region Laterality Modality Other Narrative 01/03/2022 11:54 PM EDT ?[facility] ? Cardiac Catheterization/Intervention Report ? Patient Name: Afua Rosales. ? Procedure Date: 01/03/2022 ? A #: [id number] ? Primary Physician: Moi Ledezma ? Case #: [id number] ? File Name: [id number] ? Catheterization Order Number: [id number] ? [facility] ? Final Report [place], [place] ? Patient Name: ? Afua A. Silver ?ID#: ?[id number] ? : ?1975 ? Procedure Date: ? January 03, 2022 ? Case #: ? [id number] ? Room: ? 6 ? Case Physician: ? Moi Ledezma M.D. ? Start: ?22:34 ?Fellow: ? Wang Winn M.D. ?Admission: ??01/03/2022 ? Referring Physician: ??Felisha Juan M.D. ? Procedures: ?* Coronary Angiography ?* Left Heart Catheterization ?* Coronary Ultrasound ?* Coronary Stent Insertion ?* Vascular Closure Device Deployment ?* Access Site Angiography ?* Arterial Blood Gases ?* Vascular Ultrasound ? Pre Case Status: ?These procedures were performed on an emergent basis. ? History ?Afua Rosales is a 46 year old woman. The patient's smoking status is ?Never. The patient has hypercholesterolemia managed with lipid therapy. ?She has insulin dependent diabetes mellitus. The patient has sequelae ?from diabetes. She is also status post an acute ST elevation myocardial ?infarction. Prior to the initiation of this procedure, the patient was ?designated as ASA Class IV. The [facility] clinical frailty scale is 5: Mildly ?Frail. ? Diagnostic Tests: ?Electrocardiography: ? EKG was assessed by ECG. EKG was Abnormal. EKG showed ST Deviation ? >= 0.5 mm and other abnormality. ?Medications Prior to Procedure: ? Aspirin, Statin and Thrombolytic (any). ? Indications for Diagnostic Cath: ?The priority of the diagnostic procedure was Emergent. The indication for ?the calibration laboratory technician visit is ACS less than or equal to 24 hrs. Chest pain ?symptom assessment was: Typical Angina. This patient had cardiovascular ?instability due to hemodynamic instability. Ventricular support was ?supplied with pharmacologic support. ? Technique: ?A 6Fr sheath was inserted in the right femoral artery utilizing the ?Seldinger technique. The right coronary artery was injected utilizing a ?6Fr JR 4 catheter. A 6Fr JL 4 catheter was used to inject the left ?coronary artery. Left ventricular pressure was performed utilizing a 6Fr ?JR 4 catheter. Coronary stent insertion was performed and the equipment ?utilized will be described in the intervention summary section. 2,500 ?units of heparin were administered. A total of 250cc of Omnipaque were ?opened, 119cc of Omnipaque were administered and 131cc of Omnipaque were ?wasted. Radiation: Fluoro time was 15.7 minutes, dose area product was ?23,800 mGYcm2 and air kerma was 416 mGY. See the case log for additional ?details. ?Comments: ??JR 4 guide with SH. ?The patient received the following medications prior to and during the ?procedure: ? Unfractionated Heparin and Clopidogrel. ? Hemodynamics: ?Left Heart Pressures ? Resting: ? Syst Diast ? EDP ?a ?v ? m ?Ao 102 ?? 46 ?71 ?LV 105 ? 8 ? Coronary Angiography: ?Dominance: Right ?Left Main ? The left main was normal, free of disease. ?Left Anterior Descending ? There was mild diffuse (<=25% stenosis) disease of the entire vessel ? segment of the left anterior descending artery (LAD). ?Left Circumflex ? There was mild diffuse (<=25% stenosis) disease of the entire vessel ? segment of the left circumflex artery (LCX). ? There was a 70% diffuse stenosis of the ostial segment of the second ? obtuse marginal branch (OM2) of the LCX. ?Right Coronary Artery ? There was a 90% stenosis of the mid segment of the right coronary ? artery (RCA). ??The distal segment of the RCA had 90% stenosis. ? There was an 80% stenosis of the mid segment of the right ? artioventricular continuation (THOMAS Cont) of the RCA. ? As a consequence of the catheterization/intervention procedures, a ? single discrete total occlusion developed in the ostial segment of ? the right posterior descending branch (RPDA) of the RCA. ? Intravascular Imaging/Physiology: ?Intravascular Ultrasound was performed in the mid RCA using a 6 Fr JR 4 ?SH guiding catheter and a 3.5 Fr [place] [employer] [place] ST ??20 Mhz. ??Imaging ?was successful. ??Image quality was excellent. ??The mid RCA showed severe ?diffuse atherosclerotic plaque. ??Measurements were performed after ?pre-dilation. ?Post Intervention: The stent was well expanded and apposed. ?Intravascular Ultrasound was performed in the distal RCA using a 6 Fr JR ?4 SH guiding catheter and a 3.5 Fr [place] [facility] [place] ST ??20 Mhz. ?Imaging was successful. ??Image quality was excellent. ??The distal RCA ?showed severe diffuse atherosclerotic plaque. ??Measurements were ?performed after pre-dilation. ?Post Intervention: The stent was well expanded and apposed. ? Indication for Intervention: ?Coronary intervention was indicated for primary therapy for an acute ?myocardial infarction. The priority for the procedure was Emergent. The ?NCDR indication for the procedure was STEMI (after successful lytics). ?STEMI onset was 01/03/2022 at 7:00 PM, estimated. Thrombolytics were ?administered on 01/03/2022 at 8:35 PM. ? Intervention Summary: ?Right Coronary Artery ? Mid 90% ? Stent insertion was performed on the 90% stenosis in the mid ? segment of the RCA. This was a de debbie lesion. According to ? the ACC/AHA classification system, this lesion was a type C ? high risk lesion. Primary prevention of restenosis was the ? indication for stent insertion. This was the culprit lesion. A ? guidewire was placed across this lesion. Vessel flow pre ? intervention was [place] 3. Lesion length was 30mm. ? Stent insertion was accomplished through a 6 Fr. JR 4 SH ? guide. ??The lesion was predilated with a 2.00mm EUPHORA 12 MM ? balloon with a maximum inflation pressure of 14 atmospheres. ? A premounted 3.00 x 34 mm Resolute PINO (TRACIE) was deployed ? with a maximum inflation pressure of 14 atmospheres. ? Following stent deployment, the lesion was dilated using a ? 3.25mm NC EUPHORA 20 MM balloon with a maximum inflation ? pressure of 18 atmospheres. ? The final outcome was defined as successful. A coronary ? arteriolar vasodilator was administered as part of the ? intervention on this lesion. There was no residual stenosis ? following this intervention. The final [place] flow was 3. ? Distal 90% ? Stent insertion was performed on the 90% stenosis in the ? distal segment of the RCA. This was a de debbie lesion. This ? lesion was designated a type C high risk lesion based on ? ACC/AHA classification system. Primary prevention of ? restenosis was the indication for stent insertion. This was ? the culprit lesion. A guidewire was placed across this lesion. ? Vessel flow pre intervention was [place] 3. Lesion length was ? 32mm. This lesion was contiguous with THOMAS Cont-mid. The lesion ? involves a bifurcation with the RPDA. This bifurcation lesion ? was treated with a single stent, side branch jailed and not ? treated technique. ? Stent insertion was accomplished through a 6 Fr. JR 4 SH ? guide. ??A premounted 2.50 x 18 mm Resolute PINO ??(TRACIE) was ? deployed with a maximum inflation pressure of 13 atmospheres. ? Following stent deployment, the lesion was dilated using a ? 3.25mm NC EUPHORA 20 MM balloon with a maximum inflation ? pressure of 18 atmospheres. ? Another stent insertion was accomplished through a 6 Fr. JR 4 ? SH guide. ??A premounted 2.00 x 15 mm Resolute PINO (TRACIE) was ? deployed with a maximum inflation pressure of 12 atmospheres. ? Following stent deployment, the lesion was dilated using a ? 2.00mm balloon with a maximum inflation pressure of 17 ? atmospheres. ? The final outcome was defined as successful. A coronary ? arteriolar vasodilator was administered as part of the ? intervention on this lesion. There was no residual stenosis ? following this intervention. The final [place] flow was 3. ? Vascular Access: ?Vascular Access Angiogram: ? A selective angiogram at the right femoral artery revealed mild ? diffuse disease. ?Vascular Ultrasound: ? Ultrasound of the right femoral artery was used to guide access and ? showed vessel patent with moderate disease. Needle entry was ? observed. ?Vascular Access Management: ? A 6 Fr Perclose was deployed at the right femoral artery access ? site. This device was successful. ? Point of Care Testing: ?ABG: ? Arterial Blood gasses were performed using the I-Stat analyzer at ? 22:38: pH: 7.34, pCO2: 46.3, pO2: 93.0, sPO2: 97%, HCO3: 25 on FIO2: ? ra. ?I-Stat: ? I-Stat was performed using the I-Stat analyzer at 22:38: Na+: 141, ? K+: 3.7, iCa++: 1.26, Hct: 35%, Hb: 11.9. ? Dual Antiplatelet (DAPT) Recommendations: ?Drug eluting stent (TRACIE) inserted. ?P2Y12 Loading dose administered prior to arrival in the calibration laboratory technician. ?Recommended anti-platelet/anti-thrombotic regimen: ?Start aspirin 81 mg daily now and continue for indefinitely. ?Start clopidogrel 75 mg daily now and continue for 12 months then stop. ?These recommendations are made at the time of the intervention. Patient ?and provider preferences or a changing clinical situation may require ?modification of this regimen. Consult [facility] Interventional Cardiology for ?questions. ?The 1 year bleeding risk as calculated by the PRECISE DAPT score is Low ?risk. ?This patient has a high DAPT score and may benefit from prolonged (12-30 ?months) dual antiplatelet therapy if the patient has completed 12 months ?of DAPT without having a major bleeding or ischemic event and the patient ?is NOT on chronic anticoagulation. This should be used for guidance in ?the overall conversation about prolonged dual antiplatelet therapy and ?not as a recommendation for or against any medical treatment. Consult ?http://tools.acc.org/DAPTriskapp/#!/content/calculator/ or [facility] ?Interventional Cardiology for questions ? Conclusions: ?* Two vessel coronary artery disease (LCX and RCA) ?* Successful stent insertion of the mid RCA lesion ?* Successful stent insertion of the distal RCA lesion ?* See Dual Antiplatelet (DAPT) Recommendations above ?* Jailing and loss of a small RPDA, inferior wall subtended by ?wraparound LAD. ? Complications/Events: ?The patient had no complications during these procedures. ?The attending physician was present for the entire procedure. ?Dr. Moi Ledezma M.D. was present during the moderate sedation ?intraservice time as documented by the sedation nurse. ??Case time = 00:58. ?Dr. Moi Ledezma M.D. performed the coronary angiography, left heart ?catheterization, stent insertion-coronary, IVUS # coronary, access site ?angiography, vascular ultrasound, vascular closure device and ABG. ? Moi Ledezma M.D. ? Electronically Signed by: Moi Ledezma M.D. ? Report Finalized: 01/03/2022 ??23:49 ? Report Last Ammended: 01/14/2022 ??14:49 ? Procedure Note Moi Ledezma MD - 01/14/[address] [facility] Cardiac Catheterization/Intervention Report Patient Name: Afua Rosales Procedure Date: 01/03/2022 A #: [id number] Primary Physician: Moi Ledezma Case #: [id number] File Name: [id number] Catheterization Order Number: [id number] [facility] FinalReport [place], [place] Patient Name: Afua Rosales ID#:[id number] :1975 Procedure Date: January 03, 2022 Case #: [id number] Room: 6 Case Physician: Moi Ledezma M.D. Start: 22:34 Fellow: Wang Winn M.D. Admission:01/03/2022 Referring Physician: Felisha Juan M.D. Procedures: * Coronary Angiography * Left Heart Catheterization * Coronary Ultrasound * Coronary Stent Insertion * Vascular Closure Device Deployment * Access Site Angiography * Arterial Blood Gases * Vascular Ultrasound Pre Case Status: These procedures were performed on an emergent basis. History Afua Rosales is a 46 year old woman. The patient's smoking statusis Never. The patient has hypercholesterolemia managed with lipidtherapy. She has insulin dependent diabetes mellitus. The patient hassequelae from diabetes. She is also status post an acute ST elevationmyocardial infarction. Prior to the initiation of this procedure, the patientwas designated as ASA Class IV. The [facility] clinical frailty scale is 5:Mildly Frail. Diagnostic Tests: Electrocardiography: EKG was assessed by ECG. EKG was Abnormal. EKG showed STDeviation >= 0.5 mm and other abnormality. Medications Prior to Procedure: Aspirin, Statin and Thrombolytic (any). Indications for Diagnostic Cath: The priority of the diagnostic procedure was Emergent. Theindication for the calibration laboratory technician visit is ACS less than or equal to 24 hrs. Chest pain symptom assessment was: Typical Angina. This patient hadcardiovascular instability due to hemodynamic instability. Ventricular support was supplied with pharmacologic support. Technique: A 6Fr sheath was inserted in the right femoral artery utilizing the Seldinger technique. The right coronary artery was injectedutilizing a 6Fr JR 4 catheter. A 6Fr JL 4 catheter was used to inject the left coronary artery. Left ventricular pressure was performed utilizing a6Fr JR 4 catheter. Coronary stent insertion was performed and theequipment utilized will be described in the intervention summary section.2,500 units of heparin were administered. A total of 250cc of Omnipaquewere opened, 119cc of Omnipaque were administered and 131cc of Omnipaquewere wasted. Radiation: Fluoro time was 15.7 minutes, dose area productwas 23,800 mGYcm2 and air kerma was 416 mGY. See the case log foradditional details. Comments: JR 4 guide with SH. The patient received the following medications prior to and duringthe procedure: Unfractionated Heparin and Clopidogrel. Hemodynamics: Left Heart Pressures Resting: Syst Diast EDP a v m Ao 102 46 71 LV 105 8 Coronary Angiography: Dominance: Right Left Main The left main was normal, free of disease. Left Anterior Descending There was mild diffuse (<=25% stenosis) disease of the entirevessel segment of the left anterior descending artery (LAD). Left Circumflex There was mild diffuse (<=25% stenosis) disease of the entirevessel segment of the left circumflex artery (LCX). There was a 70% diffuse stenosis of the ostial segment of thesecond obtuse marginal branch (OM2) of the LCX. Right Coronary Artery There was a 90% stenosis of the mid segment of the rightcoronary artery (RCA). The distal segment of the RCA had 90% stenosis. There was an 80% stenosis of the mid segment of the right artioventricular continuation (THOMAS Cont) of the RCA. As a consequence of the catheterization/interventionprocedures, a single discrete total occlusion developed in the ostial segmentof the right posterior descending branch (RPDA) of the RCA. Intravascular Imaging/Physiology: Intravascular Ultrasound was performed in the mid RCA using a 6 FrJR 4 SH guiding catheter and a 3.5 [address] [place] [facility] [place] [facility] 20 Mhz.Imaging was successful. Image quality was excellent. The mid RCA showedsevere diffuse atherosclerotic plaque. Measurements were performed after pre-dilation. Post Intervention: The stent was well expanded and apposed. Intravascular Ultrasound was performed in the distal RCA using a 6Fr JR 4 SH guiding catheter and a 3.[address] [place] [facility] [place] [address] 20 Mhz. Imaging was successful. Image quality was excellent. The distalRCA showed severe diffuse atherosclerotic plaque. Measurements were performed after pre-dilation. Post Intervention: The stent was well expanded and apposed. Indication for Intervention: Coronary intervention was indicated for primary therapy for an acute myocardial infarction. The priority for the procedure was Emergent.The [facility] indication for the procedure was STEMI (after successfullytics). STEMI onset was 01/03/2022 at 7:00 PM, estimated. Thrombolytics were administered on 01/03/2022 at 8:35 PM. Intervention Summary: Right Coronary Artery Mid 90% Stent insertion was performed on the 90% stenosis in themid segment of the RCA. This was a de debbie lesion. Accordingto the ACC/AHA classification system, this lesion was a typeC high risk lesion. Primary prevention of restenosis wasthe indication for stent insertion. This was the culpritlesion. A guidewire was placed across this lesion. Vessel flow pre intervention was [place] 3. Lesion length was 30mm. Stent insertion was accomplished through a 6 Fr. JR 4 SH guide. The lesion was predilated with a 2.00mm OIHNLAT67 MM balloon with a maximum inflation pressure of 14atmospheres. A premounted 3.00 x 34 mm Resolute PINO (TRACIE) wasdeployed with a maximum inflation pressure of 14 atmospheres. Following stent deployment, the lesion was dilated usinga 3.25mm NC EUPHORA 20 MM balloon with a maximum inflation pressure of 18 atmospheres. The final outcome was defined as successful. A coronary arteriolar vasodilator was administered as part of the intervention on this lesion. There was no residualstenosis following this intervention. The final [place] flow was 3. Distal 90% Stent insertion was performed on the 90% stenosis in the distal segment of the RCA. This was a de debbie lesion.This lesion was designated a type C high risk lesion based on ACC/AHA classification system. Primary prevention of restenosis was the indication for stent insertion. Thiswas the culprit lesion. A guidewire was placed across thislesion. Vessel flow pre intervention was [place] 3. Lesion lengthwas 32mm. This lesion was contiguous with THOMAS Cont-mid. Thelesion involves a bifurcation with the RPDA. This bifurcationlesion was treated with a single stent, side branch jailed andnot treated technique. Stent insertion was accomplished through a 6 Fr. JR 4 SH guide. A premounted 2.50 x 18 mm Resolute PINO (TRACIE)was deployed with a maximum inflation pressure of 13atmospheres. Following stent deployment, the lesion was dilated usinga 3.25mm NC EUPHORA 20 MM balloon with a maximum inflation pressure of 18 atmospheres. Another stent insertion was accomplished through a 6 Fr.JR 4 SH guide. A premounted 2.00 x 15 mm Resolute PINO (TRACIE)was deployed with a maximum inflation pressure of 12atmospheres. Following stent deployment, the lesion was dilated usinga 2.00mm balloon with a maximum inflation pressure of 17 atmospheres. The final outcome was defined as successful. A coronary arteriolar vasodilator was administered as part of the intervention on this lesion. There was no residualstenosis following this intervention. The final [place]LEX[place]A flow was 3. Vascular Access: Vascular Access Angiogram: A selective angiogram at the right femoral artery revealed mild diffuse disease. Vascular Ultrasound: Ultrasound of the right femoral artery was used to guide accessand showed vessel patent with moderate disease. Needle entry was observed. Vascular Access Management: A 6 Fr Perclose was deployed at the right femoral artery access site. This device was successful. Point of Care Testing: ABG: Arterial Blood gasses were performed using the I-Stat analyzerat 22:38: pH: 7.34, pCO2: 46.3, pO2: 93.0, sPO2: 97%, HCO3: 25 onFIO2: ra. I-Stat: I-Stat was performed using the I-Stat analyzer at 22:38: Na+:141, K+: 3.7, iCa++: 1.26, Hct: 35%, Hb: 11.9. Dual Antiplatelet (DAPT) Recommendations: Drug eluting stent (TRACIE) inserted. P2Y12 Loading dose administered prior to arrival in the calibration laboratory technician. Recommended anti-platelet/anti-thrombotic regimen: Start aspirin 81 mg daily now and continue for indefinitely. Start clopidogrel 75 mg daily now and continue for 12 months thenstop. These recommendations are made at the time of the intervention.Patient and provider preferences or a changing clinical situation mayrequire modification of this regimen. Consult [facility] Interventional Cardiologyfor questions. The 1 year bleeding risk as calculated by the PRECISE DAPT score isLow risk. This patient has a high DAPT score and may benefit from prolonged(12-30 months) dual antiplatelet therapy if the patient has completed 12months of DAPT without having a major bleeding or ischemic event and thepatient is NOT on chronic anticoagulation. This should be used for guidancein the overall conversation about prolonged dual antiplatelet therapyand not as a recommendation for or against any medical treatment.Consult http://tools.acc.org/DAPTriskapp/#!/content/calculator/ or [facility] Interventional Cardiology for questions Conclusions: * Two vessel coronary artery disease (LCX and RCA) * Successful stent insertion of the mid RCA lesion * Successful stent insertion of the distal RCA lesion * See Dual Antiplatelet (DAPT) Recommendations above * Jailing and loss of a small RPDA, inferior wall subtended by wraparound LAD. Complications/Events: The patient had no complications during these procedures. The attending physician was present for the entire procedure. Dr. Moi Ledezma M.D. was present during the moderate sedation intraservice time as documented by the sedation nurse. Case time =00:58. Dr. Moi Ledezma M.D. performed the coronary angiography, leftheart catheterization, stent insertion-coronary, IVUS # coronary, accesssite angiography, vascular ultrasound, vascular closure device and ABG. Moi Ledezma M.D. Electronically Signed by: Moi Ledezma M.D. Report Finalized: 01/03/2022 23:49 Report Last Ammended: 01/14/2022 14:49 Moi Ledezma MD CARDIAC CATH ORDERAB LES * (ABNORMAL) POCT Glucose (01/03/2022 11:31 PM EDT) Glucose, POC 200(H) 65 - 199 mg/dL [facility] Comment: Supplemental ranges: <140 mg/dL before meals <180 mg/dL all other times of the day Blood 01/03/2022 11:3 1 PM EDT 01/03/2022 11:31 PM EDT Moi Ledezma MD POINT OF CARE TEST O RDERABLES [facility] [place] [address] * (ABNORMAL) POCT Glucose (01/03/2022 10:56 PM EDT) Glucose, POC 265(H) 65 - 199 mg/dL [facility] Comment: Supplemental ranges: <140 mg/dL before meals <180 mg/dL all other times of the day Blood 01/03/2022 10:5 6 PM EDT 01/03/2022 10:56 PM EDT Moi Ledezma MD POINT OF CARE TEST O RDERABLES [facility] [place] [address] * (ABNORMAL) Point of Care Blood Gas Historical (01/03/2022 10:38 PM EDT) pH, POC 7.35 7.35 - 7.45 [facility] pCO2, POC 46(H) 35 - 45 mmHg [facility] pO2, POC 93 85 - 104 mmHg [facility] Base Excess, POC 0.0 -3.0 - 3.0 mmol/L [facility] Bicarbonate, POC 25.3 20.0 - 26.0 mmol/L [facility] Sodium, POC 141 135 - 145 mmol/L [facility] POC Potassium 3.7 3.5 - 5.0 mmol/L [facility] Ionized Calcium, POC 1.26 1.15 - 1.33 mmol/L [facility] POC Hematocrit 35.0 34.0 - 45.0 % [facility] POC Calc Hgb 11.9 11.2 - 15.7 g/dL [facility] Comment:The calculation of h emoglobin from hematocrit assumes a normal MCHC. POC Bgas Loc CC LAB [facility] Blood 01/03/2022 10:3 8 PM EDT 01/09/2022 12:00 PM EDT Geraldo Salomon MD CHEMISTRY ORDERABLES [facility] [place] [address] * (ABNORMAL) POCT Glucose (01/03/2022 10:37 PM EDT) Glucose, POC 63(L) 65 - 199 mg/dL [facility] Comment: Supplemental ranges: <140 mg/dL before meals <180 mg/dL all other times of the day Blood 01/03/2022 10:3 7 PM EDT 01/03/2022 10:37 PM EDT Moi Ledezma MD POINT OF [place] [address] documented in this encounter Visit Diagnoses Diagnosis ST elevation myocardial infarction involving right coronary artery Acute myocardial infarction of inferoposterior wall, initial episode of care STEMI (ST elevation myocardial infarction) Acute myocardial infarction, unspecified site, episode of care unspecified documented in this encounter Admitting Diagnoses Diagnosis STEMI (ST elevation myocardial infarction) Acute myocardial infarction, unspecified site, episode of care unspecified documented in this encounter Administered Medications Inactive Administered Medications - up to 3 most recent administrations Medication Order MAR Action Action Date Dose Rate Site aspirin chewable tablet 81 mg 81 mg, Oral, DAILY, First dose on 01/04/22 at 0900, Until Discontinued, Routine Given 01/06/2022 9:25 AM EDT 81 mg Given 01/05/2022 9:37 AM EDT 81 mg Given 01/04/2022 8:36 AM EDT 81 mg atorvastatin (Lipitor) tablet 80 mg 80 mg, Oral, EVERY EVENING, First dose on 01/04/22 at 1700, Until Discontinued, Routine Given 01/05/2022 5:26 PM EDT 80 mg Given 01/04/2022 4:07 PM EDT 80 mg clopidogreL (Plavix) tablet 75 mg 75 mg, Oral, DAILY, First dose on 01/04/22 at 0900, Until Discontinued, Routine Given 01/06/2022 9:25 AM EDT 75 mg Given 01/05/2022 9:37 AM EDT 75 mg Given 01/04/2022 8:36 AM EDT 75 mg dextrose 10% infusion 250 mL, at 1,000 mL/hr, Intravenous, EVERY 30 MIN PRN, Starting on 01/04/22 at 0330, Until 01/06/22 at 1703, For BG 50-70 mg/dL: Oral treatment preferred: If able to drink, give 120 mL Juice or Regular (not diet) soda OR If NPO, give 15 gram glucose 40% oral gel massaged into buccal mucosa OR if unconscious or uncooperative, give 25 gram (250 mL) Dextrose 10% IV over 15 minutes per protocol OR, if no IV access, 1 mg Glucagon IM. For BG less than 50 mg/dL: Oral treatment preferred: If able to drink, give 240 mL Juice or Regular (not diet) soda OR If NPO, give 30 gram glucose 40% oral gel massaged in buccal mucosa OR if unconscious or uncooperative, give 25 gram (250 mL) Dextrose 10% IV over 15 minutes per protocol OR, if no IV access, 1 mg Glucagon IM. Recheck BG in 30 minutes. May repeat juice/soda, gel, dextrose or glucagon once per episode. For persistent hypoglycemia, consider longer-acting treatment for the duration of the active insulin. enoxaparin (Lovenox) (40 mg/0.4 mL) subcutaneous injection 40 mg 40 mg, Subcutaneous, NIGHTLY, First dose on 01/04/22 at 2100, Until Discontinued, Routine Given 01/05/2022 8:13 PM EDT 40 mg Given 01/04/2022 9:46 PM EDT 40 mg Ab dominal Tissue glucagon (Glucagen) (1 mg/mL) injection solution 1 mg 1 mg, Intramuscular, EVERY 30 MIN PRN, Starting on 01/04/22 at 0330, Until 01/06/22 at 1703, Low blood sugar, For BG 50-70 mg/dL: Oral treatment preferred: If able to drink, give 120 mL Juice or Regular (not diet) soda OR If NPO, give 15 gram glucose 40% oral gel massaged into buccal mucosa OR if unconscious or uncooperative, give 25 gram (250 mL) Dextrose 10% IV over 15 minutes per protocol OR, if no IV access, 1 mg Glucagon IM. For BG less than 50 mg/dL: Oral treatment preferred: If able to drink, give 240 mL Juice or Regular (not diet) soda OR If NPO, give 30 gram glucose 40% oral gel massaged in buccal mucosa OR if unconscious or uncooperative, give 25 gram (250 mL) Dextrose 10% IV over 15 minutes per protocol OR, if no IV access, 1 mg Glucagon IM. Recheck BG in 30 minutes. May repeat juice/soda, gel, dextrose or glucagon once per episode. For persistent hypoglycemia, consider longer-acting treatment for the duration of the active insulin., Routine glucose (Glutose) 40% oral geL 15-30 g of glucose, Buccal, EVERY 30 MIN PRN, Starting on 01/04/22 at 0330, Until 01/06/22 at 1703, Low blood sugar, For BG 50-70 mg/dL: Oral treatment preferred: If able to drink, give 120 mL Juice or Regular (not diet) soda OR If NPO, give 15 gram glucose 40% oral gel massaged into buccal mucosa OR if unconscious or uncooperative, give 25 gram (250 mL) Dextrose 10% IV over 15 minutes per protocol OR, if no IV access, 1 mg Glucagon IM. For BG less than 50 mg/dL: Oral treatment preferred: If able to drink, give 240 mL Juice or Regular (not diet) soda OR If NPO, give 30 gram glucose 40% oral gel massaged in buccal mucosa OR if unconscious or uncooperative, give 25 gram (250 mL) Dextrose 10% IV over 15 minutes per protocol OR, if no IV access, 1 mg Glucagon IM. Recheck BG in 30 minutes. May repeat juice/soda, gel, dextrose or glucagon once per episode. For persistent hypoglycemia, consider longer-acting treatment for the duration of the active insulin. 1 tube of Glutose-15 contains 15 grams of glucose (net weight of tube = 37.5 grams.), Routine heparin (porcine) (5,000 units/1 mL) subcutaneous injection 5,000 Units 5,000 Units, Subcutaneous, EVERY 8 HOURS SCHEDULED, First dose on 01/04/22 at 0115, Until Discontinued, Routine Given 01/04/2022 1:15 AM EDT 5,000 Units insulin glargine-ygfn (Semglee) (100 unit/mL) subcutaneous injection vial 10 Units 10 Units, Subcutaneous, EVERY 24 HOURS, First dose (after last modification) on 01/05/22 at 1300, Until Discontinued, Routine Given 01/06/2022 10:01 AM EDT 10 Units Given 01/05/2022 11:40 AM EDT 10 Units insulin glargine-ygfn (Semglee) (100 unit/mL) subcutaneous injection vial 16 Units 16 Units, Subcutaneous, EVERY 24 HOURS, First dose (after last modification) on 01/04/22 at 1300, Until Discontinued, Routine Given 01/04/2022 12:31 PM EDT 16 Units insulin lispro (HumaLOG;Admelog) (100 unit/mL) subcutaneous injection vial 0-6 Units 0-6 Units, Subcutaneous, 3 TIMES DAILY WITH MEALS, First dose on 01/04/22 at 1200, Until Discontinued, MEAL ASSOCIATED Give 1 unit for every 20 grams carbohydrate. Hold if not eating or if BG less than 70 mg/dL., Routine Given 01/06/2022 1:15 PM EDT 2 Units Given 01/06/2022 9:59 AM EDT 2 Units Given 01/05/2022 6:01 PM EDT 2 Units insulin lispro (HumaLOG;Admelog) (100 unit/mL) subcutaneous injection vial 1-4 Units 1-4 Units, Subcutaneous, EVERY 4 HOURS SCHEDULED, First dose on 01/04/22 at 1630, Until Discontinued, CORRECTION BOLUS [1-4 Units] Sensitive Sliding Scale (BG in mg/dL): Correction factor 40 (1 unit of insulin is expected to drop the glucose 40 mg/dL) BG 180 - 220 Give 1 unit BG 221 - 260 Give 2 units BG 261 - 320 Give 3 units BG greater than 320, give 4 units and recheck BG in 2 hours. - If recheck BG is LESS than 320, give no insulin and resume schedule - If recheck BG is GREATER than 320, give 4 units and repeat BG in 2 hours (no more than 3 times) & call for new insulin orders. DO NOT hold if NPO, unless specifically directed to do so by written order. Per Blood Glucose Monitoring Policy, re-check a BG of > 240 mg/dL in 2 hours., Routine Given 01/06/2022 11:56 AM EDT 3 Units Given 01/05/2022 8:13 PM EDT 1 Units Given 01/05/2022 8:13 AM EDT 1 Units lactated Ringers 500 mL IV bolus Intravenous, ONCE, 1 dose, On 01/04/22 at 1100 New Bag 01/04/2022 11:15 AM EDT 500 mL/hr metoprolol succinate XL (Toprol-XL) tablet 50 mg 50 mg, Oral, DAILY, First dose on 01/06/22 at 1000, Until Discontinued, DO NOT CRUSH OR OPEN, Routine Given 01/06/2022 9:25 AM EDT 50 mg metoprolol tartrate (Lopressor) tablet 12.5 mg 12.5 mg, Oral, EVERY 8 HOURS SCHEDULED, First dose (after last modification) on 01/04/22 at 0600, Until Discontinued, Hold for systolic BP < 95 mmHg, Hold for HR < 60 BPM, Routine Given 01/05/2022 5:31 AM EDT 12.5 mg Given 01/04/2022 9:46 PM EDT 12.5 mg Given 01/04/2022 6:00 AM EDT 12.5 mg metoprolol tartrate (Lopressor) tablet 12.5 mg 12.5 mg, Oral, EVERY 6 HOURS SCHEDULED, First dose (after last modification) on 01/05/22 at 1200, Until Discontinued, Hold for systolic BP < 95 mmHg, Hold for HR < 60 BPM, Routine Given 01/06/2022 6:13 AM EDT 12.5 mg Given 01/06/2022 12:03 AM EDT 12.5 mg Given 01/05/2022 5:25 PM EDT 12.5 mg perflutren protein-A microsphers (Optison) (0.22 mg/mL) injection 0.5 mL 0.5 mL, Intravenous, ONCE PRN, 1 dose, Starting on 01/04/22 at 1108, Until 01/04/22 at 1108, for enhancement of sub-optimal echo images, Echo Lab (Intra-Procedure), Routine Given 01/04/2022 11:08 AM EDT 0.5 mLs sodium chloride 0.9 % (flush) (BD PosiFlush Normal Saline 0.9) flush 5 mL 5 mL, Intravenous, 2 TIMES DAILY, First dose on 01/04/22 at 0115, Until Discontinued, Routine Given 01/06/2022 9:26 AM EDT 5 mLs Given 01/05/2022 8:14 PM EDT 5 mLs Given 01/05/2022 9:37 AM EDT 5 mLs documented in this encounter Active and Recently Administered Medications Times are shown in EDT. Scheduled Medication Order 01/04/2022 01/05/2022 01/06/2022 aspirin chewable tablet 81 mg 81 mg, Oral, DAILY, First dose on 01/04/22 at 0900, Until Discontinued, Routine 0836 (Given - Provider: George Castro RN) 0937 (Given - Provider: Tj Berry RN) 0925 (Given - Provider: Tj Berry, GUSTAVO) atorvastatin (Lipitor) tablet 80 mg 80 mg, Oral, EVERY EVENING, First dose on 01/04/22 at 1700, Until Discontinued, Routine 1607 (Given - Provider: George Castro RN) 1726 (Given - Provider: Tj Berry, GUSTAVO) clopidogreL (Plavix) tablet 75 mg 75 mg, Oral, DAILY, First dose on 01/04/22 at 0900, Until Discontinued, Routine 0836 (Given - Provider: George Castro RN) 0937 (Given - Provider: Tj Berry RN) 0925 (Given - Provider: Tj Berry RN) enoxaparin (Lovenox) (40 mg/0.4 mL) subcutaneous injection 40 mg 40 mg, Subcutaneous, NIGHTLY, First dose on Thu01/04/22 at 2100, Until Discontinued, Routine 2146 (Given - Provider: John Tovar RN) 2012 (Given - Provider: Ivette Thakkar RN) heparin (porcine) (5,000 units/1 mL) subcutaneous injection 5,000 Units (CANCELED) 5,000 Units, Subcutaneous, EVERY 8 HOURS SCHEDULED, First dose on Thu01/04/22 at 0115, Until Discontinued, Routine 0115 (Given - Provider: George Quiros RN)0600 (Not Given - Provider: George Castro RN - Reason: See comment - Comment: unknown if given) insulin glargine-ygfn (Semglee) (100 unit/mL) subcutaneous injection vial 10 Units 10 Units, Subcutaneous, EVERY 24 HOURS, First dose (after last modification) on Thu01/05/22 at 1300, Until Discontinued, Routine 1140 (Given - Provider: Tj Berry RN)1300 (Canceled Entry - Provider: Tj Berry RN - Reason: Contraindicated) 1001 (Given - Provider: Tj Berry RN - Comment: early admin to resume home schedule)1300 (Canceled Entry - Provider: Tj Berry RN - Reason: Contraindicated) insulin glargine-ygfn (Semglee) (100 unit/mL) subcutaneous injection vial 16 Units (CANCELED) 16 Units, Subcutaneous, EVERY 24 HOURS, First dose (after last modification) on 01/04/22 at 1300, Until Discontinued, Routine 1231 (Given - Provider: George Castro RN) insulin lispro (HumaLOG;Admelog) (100 unit/mL) subcutaneous injection vial 0-6 Units 0-6 Units, Subcutaneous, 3 TIMES DAILY WITH MEALS, First dose on 01/04/22 at 1200, Until Discontinued, MEAL ASSOCIATED Give 1 unit for every 20 grams carbohydrate. Hold if not eating or if BG less than 70 mg/dL., Routine 1307 (Given - Provider: George Castro RN - Comment: 35gm of carbohydrates)1800 (Given - Provider: George Castro RN) 0955 (Given - Provider: Tj Berry RN)1200 (Canceled Entry - Provider: Tj Berry RN - Reason: Contraindicated)131 9 (Given - Provider: Tj Berry RN)1801 (Given - Provider: Tj Berry RN) 0959 (Given - Provider: Tj Berry RN)1315 (Given - Provider: Tj Berry RN) insulin lispro (HumaLOG;Admelog) (100 unit/mL) subcutaneous injection vial 1-4 Units(Linked Group 1) 1-4 Units, Subcutaneous, EVERY 4 HOURS SCHEDULED, First dose on 01/04/22 at 1630, Until Discontinued, CORRECTION BOLUS [1-4 Units] Sensitive Sliding Scale (BG in mg/dL): Correction factor 40 (1 unit of insulin is expected to drop the glucose 40 mg/dL) BG 180 - 220 Give 1 unit BG 221 - 260 Give 2 units BG 261 - 320 Give 3 units BG greater than 320, give 4 units and recheck BG in 2 hours. - If recheck BG is LESS than 320, give no insulin and resume schedule - If recheck BG is GREATER than 320, give 4 units and repeat BG in 2 hours (no more than 3 times) & call for new insulin orders. DO NOT hold if NPO, unless specifically directed to do so by written order. Per Blood Glucose Monitoring Policy, re-check a BG of > 240 mg/dL in 2 hours., Routine 1605 (Given - Provider: George Castro RN - Comment: bg 190)2000 (Not Given - Provider: Sandhya Kennedy RN - Reason: Order parameters not met) 0000 (Not Given - Provider: John Tovar RN - Reason: Order parameters not met)0400 (Not Given - Provider: John Tovar RN - Reason: Order parameters not met)0813 (Given - Provider: Tj Berry RN)1200 (Not Given - Provider: Tj Berry RN - Reason: Contraindicated)160 0 (Not Given - Provider: Tj Berry RN - Reason: Order parameters not met)2012 (Given - Provider: Ivette Thakkar RN) 0000 (Not Given - Provider: Ivette Thakkar RN - Reason: Order parameters not met)0400 (Not Given - Provider: Ivette Thakkar RN - Reason: Order parameters not met)0800 (Not Given - Provider: Tj Berry RN - Reason: Contraindicated)115 6 (Given - Provider: Tj Berry RN) lactated Ringers 500 mL IV bolus (COMPLETED) Intravenous, ONCE, 1 dose, On 01/04/22 at 1100 1115 (New Bag - Provider: George Castro RN) metoprolol succinate XL (Toprol-XL) tablet 50 mg 50 mg, Oral, DAILY, First dose on 01/06/22 at 1000, Until Discontinued, DO NOT CRUSH OR OPEN, Routine 0925 (Given - Provider: Tj Berry, GUSTAVO) metoprolol tartrate (Lopressor) tablet 12.5 mg (CANCELED) 12.5 mg, Oral, EVERY 8 HOURS SCHEDULED, First dose (after last modification) on 01/04/22 at 0600, Until Discontinued, Hold for systolic BP < 95 mmHg, Hold for HR < 60 BPM, Routine 0600 (Given - Provider: George Quiros RN)1400 (Not Given - Provider: George Castro RN - Reason: Contraindicated - Comment: held for soft BP)2146 (Given - Provider: John Tovar, RN) 0531 (Given - Provider: John Tovar RN) metoprolol tartrate (Lopressor) tablet 12.5 mg (CANCELED) 12.5 mg, Oral, EVERY 6 HOURS SCHEDULED, First dose (after last modification) on 01/05/22 at 1200, Until Discontinued, Hold for systolic BP < 95 mmHg, Hold for HR < 60 BPM, Routine 1138 (Given - Provider: Tj Berry, GUSTAVO)1725 (Given - Provider: Tj Berry, RN) 0003 (Given - Provider: Ivette Thakkar, GUSTAVO)0613 (Given - Provider: Ivette Thakkar, GUSTAVO) sodium chloride 0.9 % (flush) (BD PosiFlush Normal Saline 0.9) flush 5 mL 5 mL, Intravenous, 2 TIMES DAILY, First dose on 01/04/22 at 0115, Until Discontinued, Routine 0115 (Given - Provider: George Quiros RN)0900 (Given - Provider: George Castro RN)2147 (Given - Provider: John Tovar, GUSTAVO) 0937 (Given - Provider: Tj Berry, GUSTAVO)2014 (Given - Provider: Ivette Thakkar, GUSTAVO) 0926 (Given - Provider: Tj Berry, GUSTAVO) PRN Medication Order 01/04/2022 01/05/2022 01/06/2022 dextrose 10% infusion(Linked Group 2) 250 mL, at 1,000 mL/hr, Intravenous, EVERY 30 MIN PRN, Starting on 01/04/22 at 0330, Until 01/06/22 at 1703, For BG 50-70 mg/dL: Oral treatment preferred: If able to drink, give 120 mL Juice or Regular (not diet) soda OR If NPO, give 15 gram glucose 40% oral gel massaged into buccal mucosa OR if unconscious or uncooperative, give 25 gram (250 mL) Dextrose 10% IV over 15 minutes per protocol OR, if no IV access, 1 mg Glucagon IM. For BG less than 50 mg/dL: Oral treatment preferred: If able to drink, give 240 mL Juice or Regular (not diet) soda OR If NPO, give 30 gram glucose 40% oral gel massaged in buccal mucosa OR if unconscious or uncooperative, give 25 gram (250 mL) Dextrose 10% IV over 15 minutes per protocol OR, if no IV access, 1 mg Glucagon IM. Recheck BG in 30 minutes. May repeat juice/soda, gel, dextrose or glucagon once per episode. For persistent hypoglycemia, consider longer-acting treatment for the duration of the active insulin. glucagon (Glucagen) (1 mg/mL) injection solution 1 mg(Linked Group 2) 1 mg, Intramuscular, EVERY 30 MIN PRN, Starting on 01/04/22 at 0330, Until 01/06/22 at 1703, Low blood sugar, For BG 50-70 mg/dL: Oral treatment preferred: If able to drink, give 120 mL Juice or Regular (not diet) soda OR If NPO, give 15 gram glucose 40% oral gel massaged into buccal mucosa OR if unconscious or uncooperative, give 25 gram (250 mL) Dextrose 10% IV over 15 minutes per protocol OR, if no IV access, 1 mg Glucagon IM. For BG less than 50 mg/dL: Oral treatment preferred: If able to drink, give 240 mL Juice or Regular (not diet) soda OR If NPO, give 30 gram glucose 40% oral gel massaged in buccal mucosa OR if unconscious or uncooperative, give 25 gram (250 mL) Dextrose 10% IV over 15 minutes per protocol OR, if no IV access, 1 mg Glucagon IM. Recheck BG in 30 minutes. May repeat juice/soda, gel, dextrose or glucagon once per episode. For persistent hypoglycemia, consider longer-acting treatment for the duration of the active insulin., Routine glucose (Glutose) 40% oral geL(Linked Group 2) 15-30 g of glucose, Buccal, EVERY 30 MIN PRN, Starting on 01/04/22 at 0330, Until 01/06/22 at 1703, Low blood sugar, For BG 50-70 mg/dL: Oral treatment preferred: If able to drink, give 120 mL Juice or Regular (not diet) soda OR If NPO, give 15 gram glucose 40% oral gel massaged into buccal mucosa OR if unconscious or uncooperative, give 25 gram (250 mL) Dextrose 10% IV over 15 minutes per protocol OR, if no IV access, 1 mg Glucagon IM. For BG less than 50 mg/dL: Oral treatment preferred: If able to drink, give 240 mL Juice or Regular (not diet) soda OR If NPO, give 30 gram glucose 40% oral gel massaged in buccal mucosa OR if unconscious or uncooperative, give 25 gram (250 mL) Dextrose 10% IV over 15 minutes per protocol OR, if no IV access, 1 mg Glucagon IM. Recheck BG in 30 minutes. May repeat juice/soda, gel, dextrose or glucagon once per episode. For persistent hypoglycemia, consider longer-acting treatment for the duration of the active insulin. 1 tube of Glutose-15 contains 15 grams of glucose (net weight of tube = 37.5 grams.), Routine lidocaine (Xylocaine) 1% (10 mg/mL) injection 3 mg 3 mg (0.3 mL), Subcutaneous, ONCE PRN, 1 dose, Starting on 01/04/22 at 0022, Until 01/06/22 at 1703, for discomfort with PIV insertion, Routine perflutren protein-A microsphers (Optison) (0.22 mg/mL) injection 0.5 mL (COMPLETED) 0.5 mL, Intravenous, ONCE PRN, 1 dose, Starting on 01/04/22 at 1108, Until 01/04/22 at 1108, for enhancement of sub-optimal echo images, Echo Lab (Intra-Procedure), Routine 1108 (Given - Provider: Radha Evans) sodium chloride 0.9 % (flush) (BD PosiFlush Normal Saline 0.9) flush 5-20 mL 5-20 mL, Intravenous, EVERY 1 MIN PRN, Starting on 01/04/22 at 0022, Until 01/06/22 at 1703, flush, Flush pertains to all indwelling lines. Flush per protocol found in the job aid using the link provided on this medication record., Routine Linked Groups Order Group 1: POCT Fingerstick Glucose (CANCELED) Routine, EVERY 4 HOURS, First occurrence on 01/04/22 at 1545, Until Specified, Consider choosing EVERY 4 HOURS as frequency for: - Type 1 Diabetes - At least 24 hours after coming off an insulin drip - At least 24 hours after admission for DKA - Hypoglycemia unawareness - Patients who are otherwise unstable Select the same frequency for the correction bolus insulin order And insulin lispro (HumaLOG;Admelog) (100 unit/mL) subcutaneous injection vial 1-4 UnitsJump to med 1-4 Units, Subcutaneous, EVERY 4 HOURS SCHEDULED, First dose on 01/04/22 at 1630, Until Discontinued, CORRECTION BOLUS [1-4 Units] Sensitive Sliding Scale (BG in mg/dL): Correction factor 40 (1 unit of insulin is expected to drop the glucose 40 mg/dL) BG 180 - 220 Give 1 unit BG 221 - 260 Give 2 units BG 261 - 320 Give 3 units BG greater than 320, give 4 units and recheck BG in 2 hours. - If recheck BG is LESS than 320, give no insulin and resume schedule - If recheck BG is GREATER than 320, give 4 units and repeat BG in 2 hours (no more than 3 times) & call for new insulin orders. DO NOT hold if NPO, unless specifically directed to do so by written order. Per Blood Glucose Monitoring Policy, re-check a BG of > 240 mg/dL in 2 hours., Routine Group 2: glucose (Glutose) 40% oral geLJump to med 15-30 g of glucose, Buccal, EVERY 30 MIN PRN, Starting on 01/04/22 at 0330, Until 01/06/22 at 1703, Low blood sugar, For BG 50-70 mg/dL: Oral treatment preferred: If able to drink, give 120 mL Juice or Regular (not diet) soda OR If NPO, give 15 gram glucose 40% oral gel massaged into buccal mucosa OR if unconscious or uncooperative, give 25 gram (250 mL) Dextrose 10% IV over 15 minutes per protocol OR, if no IV access, 1 mg Glucagon IM. For BG less than 50 mg/dL: Oral treatment preferred: If able to drink, give 240 mL Juice or Regular (not diet) soda OR If NPO, give 30 gram glucose 40% oral gel massaged in buccal mucosa OR if unconscious or uncooperative, give 25 gram (250 mL) Dextrose 10% IV over 15 minutes per protocol OR, if no IV access, 1 mg Glucagon IM. Recheck BG in 30 minutes. May repeat juice/soda, gel, dextrose or glucagon once per episode. For persistent hypoglycemia, consider longer-acting treatment for the duration of the active insulin. 1 tube of Glutose-15 contains 15 grams of glucose (net weight of tube = 37.5 grams.), Routine Or dextrose 10% infusionJump to med 250 mL, at 1,000 mL/hr, Intravenous, EVERY 30 MIN PRN, Starting on 01/04/22 at 0330, Until 01/06/22 at 1703, For BG 50-70 mg/dL: Oral treatment preferred: If able to drink, give 120 mL Juice or Regular (not diet) soda OR If NPO, give 15 gram glucose 40% oral gel massaged into buccal mucosa OR if unconscious or uncooperative, give 25 gram (250 mL) Dextrose 10% IV over 15 minutes per protocol OR, if no IV access, 1 mg Glucagon IM. For BG less than 50 mg/dL: Oral treatment preferred: If able to drink, give 240 mL Juice or Regular (not diet) soda OR If NPO, give 30 gram glucose 40% oral gel massaged in buccal mucosa OR if unconscious or uncooperative, give 25 gram (250 mL) Dextrose 10% IV over 15 minutes per protocol OR, if no IV access, 1 mg Glucagon IM. Recheck BG in 30 minutes. May repeat juice/soda, gel, dextrose or glucagon once per episode. For persistent hypoglycemia, consider longer-acting treatment for the duration of the active insulin. Or glucagon (Glucagen) (1 mg/mL) injection solution 1 mgJump to med 1 mg, Intramuscular, EVERY 30 MIN PRN, Starting on 01/04/22 at 0330, Until 01/06/22 at 1703, Low blood sugar, For BG 50-70 mg/dL: Oral treatment preferred: If able to drink, give 120 mL Juice or Regular (not diet) soda OR If NPO, give 15 gram glucose 40% oral gel massaged into buccal mucosa OR if unconscious or uncooperative, give 25 gram (250 mL) Dextrose 10% IV over 15 minutes per protocol OR, if no IV access, 1 mg Glucagon IM. For BG less than 50 mg/dL: Oral treatment preferred: If able to drink, give 240 mL Juice or Regular (not diet) soda OR If NPO, give 30 gram glucose 40% oral gel massaged in buccal mucosa OR if unconscious or uncooperative, give 25 gram (250 mL) Dextrose 10% IV over 15 minutes per protocol OR, if no IV access, 1 mg Glucagon IM. Recheck BG in 30 minutes. May repeat juice/soda, gel, dextrose or glucagon once per episode. For persistent hypoglycemia, consider longer-acting treatment for the duration of the active insulin., Routine documented in this encounter Care Teams Business Developer Relationship Specialty Start Date End Date Felisha Juan, [employer] [address] [place] [address] PCP - General Family Medicine 10/29/15 01/29/22 documented as of this encounter
--- OUTSIDE RECORDS SUMMARY | 2024-04-01 00:34 | XMS_ITS | Encounter Summary ---
[place] [address] Care Team Providers Care Stitch Rubber Name Role Phone Felisha Juan APRN Primary Care Provider + [phone] Reason for Visit * Reason Onset Date Comments Medication Refill 08/12/2017 Encounter Details Date Type Department Care Team (Late st Contact Info) Description 08/12/2017 Refill [place] [address] Ivette Hewitt V RN Controlled type 1 diabetes mellitus with retinopathy [...] severity documented in this encounter Care Teams Stitch Rubber Relationship Specialty Start Date End Date Felisha Juan APRN [address] [place] [address] PCP - General Family Medicine 10/29/15 01/29/22 documented as of this encounter
--- OUTSIDE RECORDS SUMMARY | 2024-04-01 00:34 | XMS_ITS | Encounter Summary ---
Author Organization [facility] [place] [address] Care Team Providers Care Director Of Emergency Nursing Name Role Phone Felisha Juan APRN Primary Care Provider [phone] Reason for Visit * Auth/Cert Specialty Diagnoses / Procedures Referred By Chip sebastian Referred To Contact Diagnoses STEMI (ST elevation myocardial infarction) STEMI Procedures CARDIAC CATHETERIZATION Ray Salomon MD [facility] [place] [address] [facility] Referral ID Status Reason Start Date Expiration Date Visits Re quested Visits Authorized [id number] 1 1 Encounter Details Date Type Department Care Team (Late st Contact Info) Description 01/03/2022 10:10 PM EDT - 01/03/2022 11:32 PM EDT Surgery [place] [address] Moi Ledezma MD [facility] [place] [address] CARDIAC CATHETERIZATION Social History Tobacco Use Types Packs/Day Years [...] Sign Reading Time Taken Comments Blood Pressure 125/61 01/03/2022 11:31 PM EDT Pulse 91 01/03/2022 11:31 PM EDT Temperature - - Respiratory Rate 16 01/03/2022 11:3 1 PM EDT Oxygen Saturation 100% 01/03/2022 11: 31 PM EDT Inhaled Oxygen Concentration - - Weight 66.1 kg (145 lb 11.6 oz) 01/03/2022 9:00 PM EDT Height 165.1 cm (5' 5) 01/03/2022 9:00 PM EDT Body Mass Index 22.86 01/04/2022 1:15 AM EDT documented in this encounter Discharge Summaries * Cam David MD - 01/04/2022 12:09 PM EDT Discharge Summary Patient Name: Afua Rosales Patient Age: 46 y.o. Language: Latvian Race: White Ethnicity: Not nor Admit date: 01/03/2022 Discharge date and time: 01/06/2022 Attending Physician: Ray Salomon MD Discharge Physician: Ray Salomon MD ID: Afua Rosales is a [...] will need follow up with cardiology at [facility] as well as to establish care. Patient [...] made her nauseous. ?? On arrival to [facility], she was afebrile, BP was 95/54, she was oxygenating normally on room air. She was infused with 1L IV fluids, given 25 mg of aspirin (per [facility] discharge note). The on-call inside sales coordinator at [facility] was contacted, she was given 300 mg of Plavix, aspirin, heparin with bolus and drip. She was also given tecteplase 35mg. ?? On arrival to [facility] dental laboratory technology teacher, she underwent LHC and received TRACIE x2 [...] Lab Data: DISCHARGE BASIC LABS: Recent Labs 01/06/2241901/05/22 11401/04/22 0050 WBC 6.4 6.8 6.9 HGB 12.4 12.5 11.9 HCT 36.0 36.4 34.4* PLATELET 177 187 197 Recent Labs 01/06/2241901/05/22 1145 01/04/22 0050 NA 137 137 137 [...] for you to establish care with a leather grader at [facility] as well as a referral to cardiac [...] appointments: During 8am-5pm Thursday through Thursday call [phone] to speak with a nurse in the cardiology clinic All other times call [phone] and ask to speak to the inside sales coordinator risk management professional. Activity level: - No heavy lifting (more [...] none Follow up Appointments: No future appointments. Memory Care Program Resident: You will be contacted by [facility] to schedule a cardiology appointment to establish care. PCP: Felisha Juan APRN at [phone] Your Inpatient Doctor(s) at [facility]: Ray Salomon MD - Attending physician Cam David MD - Lead Miner Blasting physician Your Primary Care Provider: Felisha Juan APRN [address] / [facility] [address] For questions regarding issues relating to your hospitalization on the Hospital Medicine Service, please contact your inpatient physician through the [facility] Building Pressure Washer [phone]. Issues after hours and on weekends will be handled by the Hospitalist staff on-call. General Instructions None Future Appointments and Orders Future Orders Complete By Expires Referral to Cardiac Rehab [VBP380 Custom] As directed Process Instructions: If no progress note charted, please enter Clinical details in comments. Scheduling Instructions: Questions: My question or request is: cardiac rehab referral s/p STEMI, she would benefit from location close to [facility] Referral to Cardiology [REF12 Custom] As directed Process Instructions: If no progress note charted, please enter Clinical details in comments. Scheduling Instructions: Questions: My question or request is: establish care after inferoposterior stemi Provider Contact Information: [address] / [facility] [address] Discharge References/Attachments: Discharge References/Attachments None Associated attestation - Ray Salomon MD - 01/06/2022 1:51 PM EDT Dear Colleagues, I was the attending at the time of discharge. Please call or email me if you have questions. Ray Salomon MD, INDIO Cardiovascular Medicine [phone] documented in this encounter Discharge Instructions * [...] for you to establish care with a leather grader at [facility] as well as a referral to cardiac [...] appointments: During 8am-5pm Thursday through Thursday call [phone] to speak with a nurse in the cardiology clinic All other times call [phone] and ask to speak to the inside sales coordinator risk management professional. Activity level: - No heavy lifting (more [...] none Follow up Appointments: No future appointments. Memory Care Program Resident: You will be contacted by [facility] to schedule a cardiology appointment to establish care. PCP: Felisha Juan APRN at [phone] Your Inpatient Doctor(s) at [facility]: Ray Salomon MD - Attending physician Cam David MD - Lead Miner Blasting physician Your Primary Care Provider: Felisha Juan APRN [address] / [facility] [address] For questions regarding issues relating to your hospitalization on the Hospital Medicine Service, please contact your inpatient physician through the [facility] Building Pressure Washer [phone]. Issues after hours and on weekends will [...] RN - 01/06/2022 2:59 PM EDT Afua Hernandez David discharged. Tele/IV removed. AVS and medication changes reviewed, questions answeredand verbalized understanding. Prescriptions to be picked up from outside pharmacy. Pt left floor via wheelchair and departed by hospital arranged transport. * Portia Larson - 01/06/2022 12:37 PM EDTSummary: Transport d/c detail Patient transport has been arranged through [facility]. Nilda will be arriving in a [...] Labs 01/06/22 0801 01/06/22 0346 01/06/22 0006 01/05/22 2011 01/05/22 1800 01/05/22 1553 01/05/22 1140 01/05/22 0743 [...] CHO control level 2 Elba Pavon APRN [facility] Endocrinology Diabetes Management Pager [phone] minutes of this 35 minute visit [...] trends Active Orders Diet Carb Control diet 60/60/75 CHO counting level 2 Frequency: Effective Now [...] Cuff Relevant medications: noted Last Bowel Movement: (FOUNDATION DIGGER) Admit Weight: 66.1 kg Estimated body mass index is 22.86 kg/m?? as calculated from the following: Height as of this encounter: 165.1 cm (5' 5). Weight as of this encounter: 62.3 kg (137 lb 5.6 oz). [place] Body Weight: 125 lbs / 56.7 kg [...] identified (Eva JPEN J Parenteral Enteral Nutr. 2012 December; 36(3): 273-83) Nutrition to continue to follow up while inpatient Phuong Cle[address] RD Pager #:[phone] * Ray Salomon MD - 01/06/2022 6:54 AM EDT Images from the original note were not included. Inpatient Cardiology Progress Note Patient info: Name: Afua Rosales : 1975 PCP: Felisha Juan APRN PCP phone number: [phone] Date of Admission: 01/03/2022 ( Hospital Day 3 days ) Attending:Ray Salomon MD ID: Afua Rosales is a 46 y.o. 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 She presents with inferior STEMI and is now s/p PCI with TRACIE x2 to RCA. Hospital Day3 24 Hour Events/Subjective: - GUSTAVO ROJAS - pharmacy is [facility] in [facility], BF can picket labor union at 6 pm when neighbor's car becomes [...] of hand), right 20 gauge 01/03/222236 -- 3 Labs: Recent Labs 01/06/22 04201/05/22 1145 01/04/22 0050 WBC 6.4 6.8 6.9 [...] 0.75 Recent Labs 01/06/22 0346 01/06/22 0006 01/05/22 2011 01/05/22 1800 01/05/22 1553 01/05/22 1140 01/05/22 0743 01/05/22 0645 01/05/22 0531 01/05/22 0509 01/05/22 0045 01/04/22 1928 POCGLU 129 125 220* 190 161 148 213* 214* 89 59* 96 104 Heme No results for input(s): LDH, HAPTOGLOBIN, URICACID in the last 168 hours. Microbiology: Microbiology Results (Last 30 days) Procedure Component Value Units Date/Time COVID-19 PCR [[id number]] Collected: 01/04/22 0050 Lab Status: Final result Specimen: Nasopharyngeal Swab Updated: 01/04/22 035 SARS-CoV-2 RNA PCR Not Detected Comment: This [...] diagnosis of COVID-19 is performed using the DermLinka COVID-19 Direct Assay by [employer] as authorized by the FDA issued Emergency [...] Department of Pathology and Laboratory Medicine at [facility], certified under the Clinical Laboratory Improvement Amendments [...] fact sheets at the following FDA website: https://www.fda.gov/medical-devices/jlfyqqwpgrw-eefriez-3540-xxgbq-80-abdlsxhfv- xwb-xoykvgaxolqphl-iojuayh-devices/uspks-xjvlfotzqot-edcq SARS-CoV-2 Source ANODIC OPERATOR Swab Imaging: No results found for this [...] David MD Internal Medicine, PGY-1 Cardiology, S2 ([id number]) 01/06/22 Cardiology Staff Addendum Afua Rosales is a 46 y.o. female whom I saw today with Dr. David. I have personally reviewed appropriate data, including labs, ECGs, and other diagnostic studies. I agree with the principal findings documented above Ray Salomon MD, INDIO, FACC, FACP, FASE Cardiovascular [...] Sky ? Lucia Alexander Endocrinology Fellow Pager [phone] I have seen the patient and reviewed Dr. Lucia Alexander's above history and I agree with the details aswritten. The assessment and plan were formulated in discussion with me and I agree with them as documented. Mark Sky MD, PhD, FACP, FACE * Ray Salomon MD - 01/05/2022 6:50 AM EDT Images from the original note were not included. Inpatient Cardiology Progress Note Patient info: Name: Afua Rosales : 1975 PCP: Felisha Juan APRN PCP phone number: [phone] Date of Admission: 01/03/2022 ( Hospital Day 2 days ) Attending:Ray Salomon MD ID: Afua Rosales is a [...] Procedure Component Value Units Date/Time COVID-19 PCR [[id number]] Collected: 01/04/22 005 Lab Status: Final result Specimen: Nasopharyngeal Swab [...] using the Simplexa COVID-19 Direct Assay by [employer] as authorized by the FDA issued Emergency [...] Department of Pathology and Laboratory Medicine at [facility], certified under the Clinical Laboratory Improvement Amendments [...] fact sheets at the following FDA website: https://www.fda.gov/medical-devices/lxcfhbtpyyk-vfggvpn-4921-uzqdq-76-lhermzjuq- pey-ctnwubcioanacl-ujtjctf-devices/bmxts-wnczahnwnlj-cuip SARS-CoV-2 Source ANODIC OPERATOR Swab Imaging: No results found for this [...] BB. Probable discharge to home tomorrow. ?? Ray Salomon MD, INDIO, FACC, FACP, FASE Cardiovascular [...] Clark MD - 01/04/2022 3:25 AM EDT [facility] TeleICU Initial Assessment Note I established audio/visual communication with the patient's room, reviewed the eDH. History and Assessment: 46 y.o. 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 w/ angina. STEMIalert activated and went to dental laboratory technology teacher where proximal and mid RCA stents were [...] BID, Sumanth Barnard MD, 5 mL at 01/04/22114 ??? sodium chloride 0.9 % (flush) (BD PosiFlush Normal Saline 0.9) flush 5-20 mL, 5-20 mL, Intravenous, Q1 Min PRN, Sumanth Barnard MD ??? lidocaine (Xylocaine) 1% (10 mg/mL) injection 3 mg, 0.3 mL, Subcutaneous, Once PRN, Sumanth Barnard MD ??? heparin (porcine) (5,000 units/1 mL) subcutaneous injection 5,000 Units, 5,000 Units, Subcutaneous, Q8H [facility], Sumanth Barnard MD, 5,000 Units at 01/04/22114 ??? aspirin chewable tablet 81 mg, 81 [...] tablet 12.5 mg, 12.5 mg, Oral, Q8H DANILO, Sumanth Barnard MD ??? clopidogreL (Plavix) tablet 75 mg, 75 mg, Oral, Daily, Sumanth Barnard MD ??? NORepinephrine (Levophed) (16 mcg/mL) in dextrose 5% 250 mL infusion, , , Continuous PRN, Moi Ledezma MD, Held at 01/04/22 0000 Impression/Recs/Plan: #Inferior STEMI s/p RCA stent x 2 -Cath site care/ASA/Lipitor/Plavix/Cozaar/metoprolol as per [facility] This is a non-billable note. documented in this encounter H&P Notes * Ray Salomon MD - 01/04/2022 12:05 AM EDT Images from the original note were not included. Cardiology ICU H&P Patient info: Name: Afua Rosales : 1975 PCP: Felisha Juan APRN PCP phone number: [phone] Date of Admission: 01/03/2022 ( Hospital Day [...] previously made her nauseous. On arrival to [facility], she was afebrile, BP was 95/54, she was oxygenating normally on room air. She was infused with 1L IV fluids, given 25 mg of aspirin (per [facility] discharge note). The on-call inside sales coordinator at [facility] was contacted, she was given 300 mg of Plavix, aspirin, heparin with bolus and drip. She was also given tecteplase 35mg. On arrival to [facility] dental laboratory technology teacher, she underwent LHC and received TRACIE x2 [...] today. Continue DAPT, statin, low dose BB. Ray Salomon MD, INDIO, FACC, FACP, FASE Cardiovascular Medicine documented in this encounter Miscellaneous Notes * Initial Assessments - Mariangel Vazquez RN - 01/06/2022 11:29 AM EDTSummary: IA / D/C note Office of Care Management Initial Assessment Mariangel Vazquez RN reviewed record and discussed patient with Care Team. Source of Information: Team, bedside nurse, medical record, and Patient Introduced self/reviewed role; services accepted. Reason for Hospitalization: chest pain Covid Vaccination Status: 1st, 2nd & booster Last COVID test: Lab Results Component Value Date [id number] Not Detected 01/04/2022 Past medical History: No past medical history on file. Hospitalizations Within the Past 30 Days: no previous admission in last 30 days Current Decision-Making Capacity: Self Advance Care Planning: Attempt Cardiopulmonary Resuscitation - Inpatient <no information> -Advanced Directive: No, need to discuss If AD's have not been completed daughter would be surrogate decision maker per [place] surrogate decision making law. (Only good for 180 days) Any patient receiving care at [facility] must abide by [place] law. The hierarchy for surrogate decision making [...] (i) The agent with financial power of regulatory attorney or a conservator appointed in accordance [...] confirmed as: [address] [facility] [address] Social & Family Supports: All names listed below confirmed with patient as current and correct Extended Emergency Contact Information Primary Emergency Contact: Delano Reyna [facility] Mobile Relation: Friend Current Care Provided by: [...] MEDICAID [place] Prescription Coverage: Yes Preferred Pharmacy: [id number] - [place], [place] - [address] AT [address] [facility] [address] [facility] [address] [facility] - [facility], [place] - [address] [facility] [address] [facility] [address] [place] Status: Patient is a : No Primary Care Provider: Felisha Juan APRN [phone] Patient/Caregiver Goals of Treatment: To go home Potential Needs for Transition of Care: none Agency Referrals: None anticipated Transportation: other (see comments) (Needs ride home generally take the free transfer bus in her home town for groceries) Transportation Anticipated: health plan transportation Concerns to be Addressed: discharge planning Assessment: Patient is admitted to *[facility] service for STEMI Plan: Home today with a medicaid ride / RS to confirm when ride is obtained A member of the Care Management team will continue to monitor progress, follow for continuity of care and assist with transition of care planning. Office of Care Management Surgery Team Bulb Inspector [email or web address] Pager [phone] * Consult Note - Mark Sky [...] management and to provide a review of intermediate school teacher diabetescare. Diabetes History: Afua Rosales has had [...] meal) 4. Carb controlled diet level 2 long term care administrator diabetes care: Medications - Outpatient treatment regimen recommendations pending based on the hospital course. Monitoring - continue BG check q4 hours for now Diet - low fat/low carb diet Exercise - weight-bearing exercise 30 min/day, as tolerated Thank you for allowing us to provide care for your patient. Discussed with Dr. Asya Alexander Endocrinology Fellow Pager [phone] I have seen the patient and reviewed [...] 01/04/2022 1:44 AM EDT RAPID COVID-19 PCR ([facility]) Routine 01/04/2022 12:50 AM EDT HEMOGRAM Routine [...] Glucose, POC 197 65 - 199 mg/dL [facility] Comment: Supplemental ranges: <140 mg/dL before meals <180 mg/dL all other times of the day Blood 01/06/2022 2:32 PM EDT 01/06/2022 2:32 PM EDT Ray Salomon MD POINT OF CARE TEST O MUSHTAQ Performing Organization Address City/[facility]/ZIP Co de Phone Number [facility] [place] [address] * (ABNORMAL) POCT Glucose (01/06/2022 11:47 AM EDT) Glucose, POC 299(H) 65 - 199 mg/dL [facility] Comment: Supplemental ranges: <140 mg/dL before meals <180 mg/dL all other times of the day Blood 01/06/2022 11:4 7 AM EDT 01/06/2022 11:47 AM EDT Ray Salomon MD POINT OF CARE TEST O MUSHTAQ [facility] [place] [address] * POCT Glucose (01/06/2022 8:01 AM EDT) Glucose, POC 142 65 - 199 mg/dL [facility] Comment: Supplemental ranges: <140 mg/dL before meals <180 mg/dL all other times of the day Blood 01/06/2022 8:01 AM EDT 01/06/2022 8:01 AM EDT Ray Salomon MD POINT OF CARE TEST O RDERABLES [facility] [place] [address] * Differential, Automated (01/06/2022 4:20 AM EDT) [facility] Neutrophil % 51.9 % [facility] Neutrophil Absolute 3.34 1.70 - 6.10 x10(3)/[facility] LABORATORY Lymph % 32.5 % [facility] Lymphocytes Abs 2.1 0.9 - 3.2 x10(3)/[facility] LABORATORY Monocyte % 13.7 % [facility] Monocyte Abs 0.9 0.3 - 0.9 x10(3)/[facility] LABORATORY Eos % 1.1 % [facility] Eosinophils Abs 0.1 0.0 - 0.4 x10(3)/[facility]ORATORY Basophil % 0.6 % [facility] Baso Absolute 0.0 0.0 - 0.1 x10(3)/[facility] LABORATORY Immature Gran % 0.20 % [facility] Comment: Immature granulocytes(IG's)percentage and absolute count will include metamyelocytes, myelocytes, and promyelocytes. Blood smears from CBCs yielding IG's will be scanned manually for concordance. If this scan disagrees with the automated IG or if promyelocytes are noted, a manual differential will be performed. Immature Gran Absolute 0.01 0.00 - 0.04 x10(3)/[facility] LABORATORY Blood 01/06/2022 4:20 AM EDT 01/06/2022 4:39 AM EDT Narrative Resulting Agency Comment Spec In Lab Cam David MD HEMATOLOGY ORDERABLE S [facility] [place] [address] * (ABNORMAL) Hemogram (01/06/2022 4:20 AM EDT) White Blood Cell 6.4 4.0 - 9.5 x10(3)/[facility] LABORATORY Red Blood Cell 3.86(L) 4.00 - 5.21 x10(6)/mc L [facility] Hemoglobin 12.4 11.7 - 15.5 g/dL [facility] Hematocrit 36.0 35.7 - 45.8 % [facility] Mean Cell Volume 93.3 82.6 - 94.4 fL [facility] Mean Cell Hemoglobin 32.1(H) 27.1 - 32.0 pg [facility] Mean Cell Hemoglobin Concentration 34.4 31.7 - 35.0 g/dL [facility] Platelet 177 145 - 357 x10(3)/mc L [facility] RDW Standard Deviation 42.0 37.0 - 46.0 [facility]ORY RDW coefficient of variation 12.1 11.5 - 14.1 % [facility] Mean Platelet Volume 10.0 7.6 - 12.9 fL [facility] NRBC% auto 0.0 % [facility] NRBC Absolute 0.000 0.000 - 0.000 x10(3)/ L [facility] Blood 01/06/2022 4:20 AM EDT 01/06/2022 4:39 AM EDT Narrative Resulting Agency Comment Spec In Lab Cam David MD HEMATOLOGY ORDERABLE S [facility] [place] [address] * Basic Metabolic Panel (non-fasting) (01/06/2022 4:20 AM EDT) Glucose 123 65 - 199 mg/dL [facility] Comment:Diabetes: >=200 mg/d L plus symptoms Blood Urea Nitrogen 13 8 - 18 mg/dL [facility] Creatinine 0.77 0.70 - 1.20 mg/dL [facility] Sodium 137 135 - 145 mmol/L [facility] Potassium 4.0 3.5 - 5.0 mmol/L [facility] Comment: Please note: ??Patients with WBC >100,000 may have falsely elevated Potassium levels. ??For accurate Potassium quantification in these patients send serum separator tube (gold top) for subsequent determinations. ??Contact the Clinical Chemistry Laboratory if there are any questions. Chloride 102 98 - 107 mmol/L [facility] Carbon Dioxide 26 22 - 31 mmol/L [facility] Anion Gap 9 5 - 15 mmol/L [facility] Calcium 9.2 8.5 - 10.5 mg/dL [facility] Est Glomerular Filtration Rate 92 >=60 mL/min/1. 73 m?? [facility] Comment: This patient? s estimated [...] In Lab Ray Salomon MD CHEMISTRY ORDERABLES Performing Organization Address [facility]/ZIP Co de Phone Number [facility] [place] [address] * POCT Glucose (01/06/2022 3:46 AM EDT) Glucose, POC 129 65 - 199 mg/dL [facility] Comment: Supplemental ranges: <140 mg/dL before meals <180 mg/dL all other times of the day Blood 01/06/2022 3:46 AM EDT 01/06/2022 3:46 AM EDT Ray Salomon MD POINT OF CARE TEST O RDERABLES Performing Organization Address [facility] Co de Phone Number [facility] [place] [address] * POCT Glucose (01/06/2022 12:06 AM EDT) Glucose, POC 125 65 - 199 mg/dL [facility] Comment: Supplemental ranges: <140 mg/dL before meals <180 mg/dL all other times of the day Blood 01/06/2022 12:0 6 AM EDT 01/06/2022 12:06 AM EDT Ray Salomon MD POINT OF CARE TEST O MUSHTAQ Performing Organization Address [facility]/ZIP Co de Phone Number [facility] [place] [address] * (ABNORMAL) POCT Glucose (01/05/2022 8:11 PM EDT) Glucose, POC 220(H) 65 - 199 mg/dL [facility] Comment: Supplemental ranges: <140 mg/dL before meals <180 mg/dL all other times of the day Blood 01/05/2022 8:11 PM EDT 01/05/2022 8:11 PM EDT Ray Salomon MD POINT OF CARE TEST O RDERABLES Performing Organization Address City/[facility]/ZIP Co de Phone Number [facility] [place] [address] * POCT Glucose (01/05/2022 6:00 PM EDT) Glucose, POC 190 65 - 199 mg/dL [facility] Comment: Supplemental ranges: <140 mg/dL before meals <180 mg/dL all other times of the day Blood 01/05/2022 6:00 PM EDT 01/05/2022 6:00 PM EDT Ray Salomon MD POINT OF CARE TEST O RDERAFRANKLIN Performing Organization Address [facility] Co de Phone Number [facility] [place] [address] * POCT Glucose (01/05/2022 3:53 PM EDT) Glucose, POC 161 65 - 199 mg/dL [facility] Comment: Supplemental ranges: <140 mg/dL before meals <180 mg/dL all other times of the day Blood 01/05/2022 3:53 PM EDT 01/05/2022 3:53 PM EDT Ray Salomon MD POINT OF CARE TEST O SANDEEPERAFRANKLIN Performing Organization Address City/[facility]/ZIP Co de Phone Number [facility] [place] [address] * (ABNORMAL) Differential, Automated (01/05/2022 11:45 AM EDT) Neutrophil % 65.9 % [facility] Neutrophil Absolute 4.46 1.70 - 6.10 x10(3)/mc L [facility] Lymph % 19.0 % [facility] Lymphocytes Abs 1.3 0.9 - 3.2 x10(3)/mc L [facility] Monocyte % 14.2 % [facility] Monocyte Abs 1.0(H) 0.3 - 0.9 x10(3)/[facility] Eos % 0.1 % [facility] Eosinophils Abs 0.0 0.0 - 0.4 x10(3)/[facility]ORATORY Basophil % 0.4 % [facility] Baso Absolute 0.0 0.0 - 0.1 x10(3)/[facility] LABORATORY Immature Gran % 0.40 % [facility] Comment: Immature granulocytes(IG's)percentage and absolute count will include metamyelocytes, myelocytes, and promyelocytes. Blood smears from CBCs yielding IG's will be scanned manually for concordance. If this scan disagrees with the automated IG or if promyelocytes are noted, a manual differential will be performed. Immature Gran Absolute 0.03 0.00 - 0.04 x10(3)/[facility] LAB[facility]ATORY Blood 01/05/2022 11:4 5 AM EDT 01/05/2022 12:08 PM EDT Narrative Resulting Agency Comment Spec In Lab Cam David MD HEMATOLOGY ORDERABLE S [facility] [place] [address] * (ABNORMAL) Hemogram (01/05/2022 11:45 AM EDT) White Blood Cell 6.8 4.0 - 9.5 x10(3)/ L [facility] Red Blood Cell 3.92(L) 4.00 - 5.21 x10(6)/ L [facility] Hemoglobin 12.5 11.7 - 15.5 g/dL [facility] Hematocrit 36.4 35.7 - 45.8 % [facility] Mean Cell Volume 92.9 82.6 - 94.4 fL [facility] Mean Cell Hemoglobin 31.9 27.1 - 32.0 pg [facility] Mean Cell Hemoglobin Concentration 34.3 31.7 - 35.0 g/dL [facility] Platelet 187 145 - 357 x10(3)/mc L [facility] RDW Standard Deviation 41.9 37.0 - 46.0 fL [facility] RDW coefficient of variation 12.3 11.5 - 14.1 % [facility] Mean Platelet Volume 10.4 7.6 - 12.9 fL [facility] NRBC% auto 0.0 % [facility] NRBC Absolute 0.000 0.000 - 0.000 x10(3)/mc L [facility] Blood 01/05/2022 11:4 5 AM EDT 01/05/2022 12:08 PM EDT Narrative Resulting Agency Comment Spec In Lab Cam David MD HEMATOLOGY ORDERABLE S [facility] [place] [address] * Basic Metabolic Panel (non-fasting) (01/05/2022 11:45 AM EDT) Glucose 140 65 - 199 mg/dL [facility] Comment:Diabetes: >=200 mg/d L plus symptoms Blood Urea Nitrogen 10 8 - 18 mg/dL [facility] Creatinine 0.75 0.70 - 1.20 mg/dL [facility] Sodium 137 135 - 145 mmol/L [facility] Potassium 3.9 3.5 - 5.0 mmol/L [facility] Comment: Please note: ??Patients with WBC >100,000 may have falsely elevated Potassium levels. ??For accurate Potassium quantification in these patients send serum separator tube (gold top) for subsequent determinations. ??Contact the Clinical Chemistry Laboratory if there are any questions. Chloride 101 98 - 107 mmol/L [facility] Carbon Dioxide 25 22 - 31 mmol/L [facility] Anion Gap 11 5 - 15 mmol/L [facility] Calcium 8.6 8.5 - 10.5 mg/dL [facility] Est Glomerular Filtration Rate 95 >=60 mL/min/1. 73 m?? [facility] Comment: This patient? s estimated [...] In Lab Ray Salomon MD CHEMISTRY ORDERABLES Performing Organization Address [facility]/ZIP Co de Phone Number [facility] [place] [address] * POCT Glucose (01/05/2022 11:40 AM EDT) [facility] Glucose, POC 148 65 - 199 mg/dL [facility] Comment: Supplemental ranges: <140 mg/dL before meals <180 mg/dL all other times of the day Blood 01/05/2022 11:4 0 AM EDT 01/05/2022 11:40 AM EDT Ray Salomon MD POINT OF CARE TEST O RDERABLES Performing Organization Address City/[facility]/ZIP Co de Phone Number [facility] [place] [address] * EKG 12 Lead (01/05/2022 8:23 AM EDT) Ventricular rate 78 BPM MUSE SYSTEM Atrial Rate 78 BPM MUSE SYSTEM P-R Interval 132 ms MUSE SYSTEM QRS Duration 106 ms MUSE SYSTEM Q-T Interval 364 ms MUSE SYSTEM QTC Calculated (Bezet) 414 ms MUSE SYSTEM Calculated P [place] 78 degrees MUSE SYSTEM Calculated R [place] -65 degrees MUSE SYSTEM Calculated T [place] -33 degrees MUSE SYSTEM INTERPRETATION Normal sinus rhythm Left axis deviation Incomplete right bundle branch block Cannot rule out Inferior infarct , age undetermined Abnormal ECG When compared with ECG of 04-JAN-2022 00:45, Incomplete right bundle branch block is now Present Minimal criteria for Inferior infarct are now Present Confirmed by Storm Lewis [id number]) on 01/05/2022 3:44:16 PM MUSE SYSTEM 01/05/2022 8:23 AM EDT 01/05/2022 3:44 PM EDT Ray Salomon MD ECG ORDERABLES Performing Organization Address City/[facility]/ZIP Co de Phone Number MUSE SYSTEM * (ABNORMAL) POCT Glucose (01/05/2022 7:43 AM EDT) Glucose, POC 213(H) 65 - 199 mg/dL [facility] Comment: Supplemental ranges: <140 mg/dL before meals <180 mg/dL all other times of the day Blood 01/05/2022 7:43 AM EDT 01/05/2022 7:43 AM EDT Ray Salomon MD POINT OF CARE TEST O RDERABLES Performing Organization Address City/[facility]/ZIP Co de Phone Number [facility] [place] [address] * (ABNORMAL) POCT Glucose (01/05/2022 6:45 AM EDT) Glucose, POC 214(H) 65 - 199 mg/dL [facility] Comment: Supplemental ranges: <140 mg/dL before meals <180 mg/dL all other times of the day Blood 01/05/2022 6:45 AM EDT 01/05/2022 6:45 AM EDT Ray Salomon MD POINT OF CARE TEST O RDERABLES Performing Organization Address City/[facility]/ZIP Co de Phone Number [facility] [place] [address] * POCT Glucose (01/05/2022 5:31 AM EDT) Glucose, POC 89 65 - 199 mg/dL [facility] Comment: Supplemental ranges: <140 mg/dL before meals <180 mg/dL all other times of the day Blood 01/05/2022 5:31 AM EDT 01/05/2022 5:31 AM EDT Ray Salomon MD POINT OF CARE TEST O RDERAFRANKLIN Performing Organization Address [facility] Co de Phone Number [facility] [place] [address] * (ABNORMAL) POCT Glucose (01/05/2022 5:09 AM EDT) Glucose, POC 59(L) 65 - 199 mg/dL [facility] Comment: Supplemental ranges: <140 mg/dL before meals <180 mg/dL all other times of the day Blood 01/05/2022 5:09 AM EDT 01/05/2022 5:09 AM EDT Ray Salomon MD POINT OF CARE TEST O SANDEEPERAFRANKLIN Performing Organization Address [facility] Co de Phone Number [facility] [place] [address] * POCT Glucose (01/05/2022 12:45 AM EDT) Glucose, POC 96 65 - 199 mg/dL [facility] Comment: Supplemental ranges: <140 mg/dL before meals <180 mg/dL all other times of the day Blood 01/05/2022 12:4 5 AM EDT 01/05/2022 12:45 AM EDT Ray Salomon MD POINT OF CARE TEST O RDERABLES Performing Organization Address City/[facility]/ZIP Co de Phone Number [facility] [place] [address] * POCT Glucose (01/04/2022 7:28 PM EDT) Glucose, POC 104 65 - 199 mg/dL [facility] Comment: Supplemental ranges: <140 mg/dL before meals <180 mg/dL all other times of the day Blood 01/04/2022 7:28 PM EDT 01/04/2022 7:28 PM EDT Ray Salomon MD POINT OF CARE TEST O RDERABLES Performing Organization Address [facility] Co de Phone Number [facility] [place] [address] * POCT Glucose (01/04/2022 4:04 PM EDT) Glucose, POC 190 65 - 199 mg/dL [facility] Comment: Supplemental ranges: <140 mg/dL before meals <180 mg/dL all other times of the day Blood 01/04/2022 4:04 PM EDT 01/04/2022 4:04 PM EDT Ray Salomon MD POINT OF CARE TEST O RDERABLES Performing Organization Address City/[facility]/ZIP Co de Phone Number [facility] [place] [address] * POCT Glucose (01/04/2022 12:09 PM EDT) Glucose, POC 157 65 - 199 mg/dL [facility] Comment: Supplemental ranges: <140 mg/dL before meals <180 mg/dL all other times of the day Blood 01/04/2022 12:0 9 PM EDT 01/04/2022 12:09 PM EDT Ray Salomon MD POINT OF CARE TEST O RDERABLES [facility] [place] [address] * ECHO COMPLETE W CONTRAST (01/04/2022 11:08 AM EDT) EF 60 HEARTLAB SYSTEM Anatomical Region Laterality Modality Cardiac Other 01/04/2022 10:3 3 AM EDT Narrative 01/04/2022 11:25 AM EDT [facility] ?[address] ? [place] [address] ?Voice: ?Fax: ? Echocardiogram Report Name: AFUA ROSALES ? Study Date: 01/04/2022 10:33 AM ? Patient Location: [facility] A : 1975 ? Height: 65 in ? Account: [id number] Age: 46 yrs ? Weight: 148 lb Gender: Female ?BSA: 1.7 m2 Ordering Physician: MOI LEDEZMA Referring Physician: MT VALENZUELA Exam Location: [facility]. Interpretation Summary Technically difficult. Left ventricular systolic [...] jet. There is no valve disease. Procedure Complete-07532. Image enhancement Optison was used for left [...] ?large Aneurysmal ?15-16 ?? diffuse Procedure Note Ray Salomon MD - 01/04/2022 [place] [address] Voice: Fax: Echocardiogram Report Name: AFUA ROSALES Study Date: :33 AM Patient Location: [address] : 1975 Height: 65 in Account: [id number] Age: 46 yrs Weight: 148 lb Gender: Female BSA: 1.7 m2 Ordering Physician: MOI LEDEZMA Referring Physician: MT VALENZUELA Exam Location: [facility]. Interpretation Summary Technically difficult. Left ventricular systolic [...] jet. There is no valve disease. Procedure Complete-26125. Image enhancement Optison was used for left [...] Glucose, POC 100 65 - 199 mg/dL [facility] Comment: Supplemental ranges: <140 mg/dL before meals <180 mg/dL all other times of the day Blood 01/04/2022 10:0 5 AM EDT 01/04/2022 10:05 AM EDT Ray Salomon MD POINT OF CARE TEST O RDERABLES [facility] [place] [address] * POCT Glucose (01/04/2022 8:23 AM EDT) Glucose, POC 72 65 - 199 mg/dL [facility] Comment: Supplemental ranges: <140 mg/dL before meals <180 mg/dL all other times of the day Blood 01/04/2022 8:23 AM EDT 01/04/2022 8:23 AM EDT Moi Ledezma MD POINT OF CARE TEST O RDERABLES [facility] [place] [address] * POCT Glucose (01/04/2022 5:03 AM EDT) Glucose, POC 143 65 - 199 mg/dL [facility] Comment: Supplemental ranges: <140 mg/dL before meals <180 mg/dL all other times of the day Blood 01/04/2022 5:03 AM EDT 01/04/2022 5:03 AM EDT Moi Ledezma MD POINT OF CARE TEST O MUSHTAQ Performing Organization Address [facility] Co de Phone Number [facility] [place] [address] * POCT Glucose (01/04/2022 3:01 AM EDT) Glucose, POC 182 65 - 199 mg/dL [facility] Comment: Supplemental ranges: <140 mg/dL before meals <180 mg/dL all other times of the day Blood 01/04/2022 3:01 AM EDT 01/04/2022 3:01 AM EDT Moi Ledezma MD POINT OF CARE TEST O MUSHTAQ Performing Organization Address [facility] Co de Phone Number [facility] [place] [address] * (ABNORMAL) BLOOD GAS 2 VENOUS (01/04/2022 1:44 AM EDT) pH, Venous 7.33 7.32 - 7.42 [facility] PCO2, Venous 45 41 - 51 mmHg [facility] PO2, Venous 52(H) 25 - 40 mmHg [facility] Bicarbonate, Venous 23.5 mmol/L [facility] Base Excess, Venous -2.7 mmol/L [facility] Hgb Blood Gas 13.1 11.7 - 15.5 g/dL [facility] Oxyhemoglobin, Venous 86.6 % [facility] Carboxyhemoglob in, Venous 0.3 % [facility] Comment: Nonsmokers: 0.5-1.5% COHB Smokers: Variable, but usually less than 10% Toxic: 20-30% COHB Lethal: Greater than 60% COHB Methemoglobin, Venous 0.8 <=1.5 % [facility] Na Whole Blood 134(L) 135 - 145 mmol/L [facility] K Whole Blood 4.1 3.5 - 5.0 mmol/L [facility] Comment: Please note: Patients with WBC >100,000 may have falsely elevated Potassium levels. Contact the Clinical Chemistry Laboratory if there are any questions. ICa Whole Blood 1.21 1.15 - 1.33 mmol/L [facility] Comment: Note: ??Total bilirubin higher than 20 mg/dL may lead to falsely low ionized calcium. CL Whole Blood 104 98 - 107 mmol/L [facility] Gluc Whole Bld 215(H) 65 - 199 mg/dL [facility] Comment:Diabetes: >=200 mg/d L plus symptoms Lactate WB 0.8 0.5 - 2.2 mmol/L [facility] Fraction of Inspired Oxygen, Venous 21 % [facility] Blood Gas Source Venous [facility] Temperature, Venous 35.8 Celsius [facility] Blood 01/04/2022 1:44 AM EDT 01/04/2022 1:44 AM EDT Moi Ledezma MD POINT OF CARE TEST O RDERABLES [facility] [place] [address] * (ABNORMAL) Differential, Automated (01/04/2022 12:50 AM EDT) Neutrophil % 86.1 % [facility] Neutrophil Absolute 5.92 1.70 - 6.10 x10(3)/mc L [facility] Lymph % 9.6 % [facility] Lymphocytes Abs 0.7(L) 0.9 - 3.2 x10(3)/mc L [facility] Monocyte % 3.6 % [facility] Monocyte Abs 0.2(L) 0.3 - 0.9 x10(3)/mc L [facility] Eos % 0.1 % [facility] Eosinophils Abs 0.0 0.0 - 0.4 x10(3)/ L [facility] Basophil % 0.3 % [facility] Baso Absolute 0.0 0.0 - 0.1 x10(3)/ L [facility] Immature Gran % 0.30 % [facility] Comment: Immature granulocytes(IG's)percentage and absolute count will include metamyelocytes, myelocytes, and promyelocytes. Blood smears from CBCs yielding IG's will be scanned manually for concordance. If this scan disagrees with the automated IG or if promyelocytes are noted, a manual differential will be performed. Immature Gran Absolute 0.02 0.00 - 0.04 x10(3)/[facility]AT[facility] Blood 01/04/2022 12:5 0 AM EDT 01/04/2022 1:24 AM EDT Narrative Resulting Agency Comment Spec In Lab Sumanth Barnard MD HEMATOLOGY ORDERABL ES [facility] [place] [address] * (ABNORMAL) Hemogram (01/04/2022 12:50 AM EDT) White Blood Cell 6.9 4.0 - 9.5 x10(3)/ L [facility] Red Blood Cell 3.77(L) 4.00 - 5.21 x10(6)/mc L [facility] Hemoglobin 11.9 11.7 - 15.5 g/dL [facility] Hematocrit 34.4(L) 35.7 - 45.8 % [facility] Mean Cell Volume 91.2 82.6 - 94.4 fL [facility] Mean Cell Hemoglobin 31.6 27.1 - 32.0 pg [facility] Mean Cell Hemoglobin Concentration 34.6 31.7 - 35.0 g/dL [facility] Platelet 197 145 - 357 x10(3)/mc L [facility] RDW Standard Deviation 40.7 37.0 - 46.0 fL [facility] RDW coefficient of variation 12.1 11.5 - 14.1 % [facility] Mean Platelet Volume 10.4 7.6 - 12.9 fL [facility] NRBC% auto 0.0 % [facility] NRBC Absolute 0.000 0.000 - 0.000 x10(3)/mc L [facility] Blood 01/04/2022 12:5 0 AM EDT 01/04/2022 1:24 AM EDT Narrative Resulting Agency Comment Spec In Lab Sumanth Barnard MD HEMATOLOGY ORDERABL ES Performing Organization Address City/[facility]/ZIP Co de Phone Number [facility] [place] [address] * (ABNORMAL) Beta Hydroxybutyrate (01/04/2022 12:50 AM EDT) Beta-hydroxybu turate 0.95(H) 0.00 - 0.30 mmol/L [facility] Comment: Reference range: ??0.00-0.30 mmol/L, based on an overnight fast. ??Children may be higher. Blood 01/04/2022 12:5 0 AM EDT 01/04/2022 1:24 AM EDT Narrative Resulting Agency Comment Spec In Lab Moi Ledezma MD CHEMISTRY ORDERABLES Performing Organization Address City/[facility]/ZIP Co de Phone Number [facility] [place] [address] * (ABNORMAL) Hemoglobin A1c (01/04/2022 12:50 AM EDT) Hemoglobin A1c 8.0(H) 4.3 - 5.6 % [facility] Comment: Reference Range: 4.3 - [...] Mellitus, Diabetes Care 2013; 36: Suppl. 1, G67-53 Estimated Average Glucose 183 mg/dL [facility] Comment: eAG equivalents for HbA1c [...] into estimated average glucose values. ??Diabetes Care 2008:31(8):7545-5469. Blood 01/04/2022 12:5 0 AM EDT 01/04/2022 1:24 AM EDT Narrative Resulting Agency Comment Spec In Lab Moi Ledezma MD CHEMISTRY ORDERABLES [facility] [place] [address] * (ABNORMAL) Troponin (01/04/2022 12:50 AM EDT) Troponin-T 0.24(H) 0.00 - 0.00 ng/mL [facility] Comment: The 99th percentile for Troponin T is less than 0.01 ng/mL, any detectable cTnT concentration using this assay should be considered elevated. According to the third universal definition of myocardial infarction the following criteria with a clinical presentation consistent with acute myocardial ischemia meets the diagnosis for a myocardial infarction (MO). Detection of a rise and/or fall of cTnT, with at least one value greater than the 99th percentile (> or = 0.01) and with at least one of the following ?? Symptoms of ischemia ?? New or presumed new significant [id number] wave (ST-T) changes or new left bundle [...] additional sample may be indicated. Reference: Third [place] Definition of Myocardial Infarction. Journal of the [place] [employer] 2012;60:1581-98 Blood 01/04/2022 12:5 0 AM EDT 01/04/2022 1:24 AM EDT Narrative Resulting Agency Comment Spec In Lab Moi Ledezma MD CHEMISTRY ORDERABLES Performing Organization Address [facility] Co de Phone Number [facility] [place] [address] * pro-Brain Natriuretic Peptide (01/04/2022 12:50 AM EDT) NT-proBNP 56 <=124 pg/mL [facility] Blood 01/04/2022 12:5 0 AM EDT 01/04/2022 1:24 AM EDT Narrative Resulting Agency Comment Spec In Lab Moi Ledezma MD CHEMISTRY ORDERABLES Performing Organization Address [facility]/ZIP Co de Phone Number [facility] [place] [address] * LDL Cholesterol, Direct (01/04/2022 12:50 AM EDT) LDL Cholesterol, Direct 66 mg/dL [facility] Comment: Lowest Risk: <100 mg/dL Lower Risk: 100-129 mg/dL Borderline High Risk: 130-159 mg/dL High Risk: 160-189 mg/dL Very High Risk: >ll=759 mg/dL Blood 01/04/2022 12:5 0 AM EDT 01/04/2022 1:24 AM EDT Narrative Resulting Agency Comment Spec In Lab Moi Ledezma MD CHEMISTRY ORDERABLES [facility] [place] [address] * HDL/Cholesterol Profile (01/04/2022 12:50 AM EDT) Cholesterol, Total 136 mg/dL [facility] Comment: Lower Risk: <200 mg/dL Average Risk: 200-239 mg/dL Higher Risk: >fi=693 mg/dL HDL Cholesterol 63 mg/dL [facility] Comment: Males: ?? Higher Risk: <40 mg/dL Females: ?? Higher Risk: <50 mg/dL Cholesterol/HDL Ratio 2.2 ratio [facility] Chol/HDL Interpretation See Note [facility] Comment: Lipid management should be guided by a patient? s ASCVD risk, goals and preferences. ACC/AHA Guidelines recommend high intensity statin if clinical ASCVD or LDL greater than or equal to 190 mg/dL. http://streamOnceurl.com/FSM-NCJ-Thwxufbhx Measure LDL if Total Cholesterol minus HDL Cholesterol is greater than 220 mg/dL. Adults aged 40-75 with LDL 70-189 mg/dL should have their 10 year ASCVD risk estimated with the ACC/AHA ASCVD risk back end architect http://tools.acc.org/LZXXW-Hiem-Ikuidqwhk/ Statin should be discussed if risk greater [...] Ledezma MD CHEMISTRY ORDERABLES Performing Organization Address [facility] Co de Phone Number [facility] [place] [address] * TSH (01/04/2022 12:50 AM EDT) Thyroid Stimulating Hormone 0.75 0.27 - 4.20 mcIU/mL [facility] Comment: Reference Interval (mcIU/mL): Females: ??First Trimester: 0.23-3.88 ??Second Trimester: 0.22-3.90 ??Third Trimester: 0.44-4.66 Blood 01/04/2022 12:5 0 AM EDT 01/04/2022 1:24 AM EDT Narrative Resulting Agency Comment Spec In Lab Moi Ledezma MD CHEMISTRY ORDERABLES Performing Organization Address [facility] de Phone Number [facility] [place] [address] * Phosphorus (01/04/2022 12:50 AM EDT) Phosphorus 2.7 2.5 - 4.5 mg/dL [facility] Blood 01/04/2022 12:5 0 AM EDT 01/04/2022 1:24 AM EDT Narrative Resulting Agency Comment Spec In Lab Moi Ledezma MD CHEMISTRY ORDERABLES Performing Organization Address [facility] Co de Phone Number [facility] [place] [address] * Magnesium (01/04/2022 12:50 AM EDT) Magnesium 0.84 0.69 - 1.07 mmol/L [facility] Blood 01/04/2022 12:5 0 AM EDT 01/04/2022 1:24 AM EDT Narrative Resulting Agency Comment Spec In Lab Moi Ledezma MD CHEMISTRY ORDERABLES [facility] [facility] [place] [address] * (ABNORMAL) Basic Metabolic Panel (non-fasting) (01/04/2022 12:50 AM EDT) Glucose 224(H) 65 - 199 mg/dL [facility] Comment:Diabetes: >=200 mg/d L plus symptoms Blood Urea Nitrogen 11 8 - 18 mg/dL [facility] Creatinine 0.62(L) 0.70 - 1.20 mg/dL [facility] Sodium 137 135 - 145 mmol/L [facility] Potassium 4.1 3.5 - 5.0 mmol/L [facility] Comment: Please note: ??Patients with WBC >100,000 may have falsely elevated Potassium levels. ??For accurate Potassium quantification in these patients send serum separator tube (gold top) for subsequent determinations. ??Contact the Clinical Chemistry Laboratory if there are any questions. Chloride 105 98 - 107 mmol/L [facility] Carbon Dioxide 22 22 - 31 mmol/L [facility] Anion Gap 10 5 - 15 mmol/L [facility] Calcium 8.5 8.5 - 10.5 mg/dL [facility] Est Glomerular Filtration Rate 107 >=60 mL/min/1. 73 m?? [facility] Comment: This patient? s estimated [...] In Lab Moi Ledezma MD CHEMISTRY ORDERABLES [facility] [place] [address] * COVID-19 PCR (01/04/2022 12:50 AM EDT) SARS-CoV-2 RNA (Rapid) Not Detected Not Detected [facility] Comment: This result should be [...] using the Simplexa COVID-19 Direct Assay by [employer] as authorized by the FDA issued Emergency [...] Department of Pathology and Laboratory Medicine at [facility], certified under the Clinical Laboratory Improvement Amendments [...] fact sheets at the following FDA website: https://www.fda.gov/medical-devices/haqvmkbntke-wpokgzl-2907-dlvvb-29-rouwxdtqx- use-a ytvewgmwgjojl-kuczgqd-bbciocf/plpku-btsehdnlhbg-tuum SARS-CoV-2 Source ANODIC OPERATOR Swab [facility] Nasopharyngeal Swab 01/05/20 12:50 AM EDT 01/04/2022 1:48 AM EDT Comment:Symptoms->Surveillan ce Narrative Resulting Agency Comment Spec In Lab Moi Ledezma MD MICROBIOLOGY - GENER AL ORDERABLES [facility] [place] [address] * EKG 12 Lead (01/04/2022 12:45 AM EDT) Ventricular rate 94 BPM MUSE SYSTEM Atrial Rate 94 BPM MUSE SYSTEM P-R Interval 140 ms MUSE SYSTEM QRS Duration 92 ms MUSE SYSTEM Q-T Interval 370 ms MUSE SYSTEM QTC Calculated (Bezet) 462 ms MUSE SYSTEM Calculated P [place] 69 degrees MUSE SYSTEM Calculated R [place] 2 degrees MUSE SYSTEM Calculated T [place] 89 degrees MUSE SYSTEM INTERPRETATION Normal sinus rhythm Low voltage QRS Nonspecific ST and T wave abnormality Abnormal ECG When compared with ECG of 13-NOV-1999 14:45, ST now depressed in Anterior leads Nonspecific T wave abnormality now evident in Lateral leads Confirmed by MD Umm, Ray Espinoza ([id number]) on 01/04/2022 1:03:04 PM MUSE SYSTEM 01/04/2022 12:4 5 AM EDT 01/04/2022 1:03 PM EDT Moi Ledezma MD ECG ORDERABLES Performing Organization Address [facility] de Phone Number MUSE SYSTEM * POCT Glucose (01/04/2022 12:07 AM EDT) Glucose, POC 126 65 - 199 mg/dL [facility] Comment: Supplemental ranges: <140 mg/dL before meals <180 mg/dL all other times of the day Blood 01/04/2022 12:0 7 AM EDT 01/04/2022 12:07 AM EDT Moi Ledezma MD POINT OF CARE TEST O RDERABLES Performing Organization Address [facility] de Phone Number [facility] [place] [address] * CARDIAC CATHETERIZATION (01/03/2022 11:45 PM EDT) Anatomical Region Laterality Modality Other Narrative 01/03/2022 11:54 PM EDT ?[facility] ? Cardiac Catheterization/Intervention Report ? Patient Name: Afua Rosales. ? Procedure Date: 01/03/2022 ? A #: [id number] ? Primary Physician: Moi Ledezma ? Case #: [id number] ? File Name: [id number] ? Catheterization Order Number: [id number] ? [facility] ? Final Report [place], [place] ? Patient Name: ? Afua A. Silver ?ID#: ?[id number] ? : ?1975 ? Procedure Date: ? [...] was ?designated as ASA Class IV. The [facility] clinical frailty scale is 5: Mildly ?Frail. ? Diagnostic Tests: ?Electrocardiography: ? EKG was assessed by ECG. EKG was Abnormal. EKG showed ST Deviation ? >= 0.5 mm and other abnormality. ?Medications Prior to Procedure: ? Aspirin, Statin and Thrombolytic (any). ? Indications for Diagnostic Cath: ?The priority of the diagnostic procedure was Emergent. The indication for ?the dental laboratory technology teacher visit is ACS less than or equal [...] ?SH guiding catheter and a 3.5 Fr [facility] [address] ??20 Mhz. ??Imaging ?was successful. ??Image quality was excellent. ??The mid RCA showed severe ?diffuse atherosclerotic plaque. ??Measurements were performed after ?pre-dilation. ?Post Intervention: The stent was well expanded and apposed. ?Intravascular Ultrasound was performed in the distal RCA using a 6 Fr JR ?4 SH guiding catheter and a 3.5 Fr [facility] [address] ??20 Mhz. ?Imaging was successful. ??Image [...] dose administered prior to arrival in the dental laboratory technology teacher. ?Recommended anti-platelet/anti-thrombotic regimen: ?Start aspirin 81 mg daily now and continue for indefinitely. ?Start clopidogrel 75 mg daily now and continue for 12 months then stop. ?These recommendations are made at the time of the intervention. Patient ?and provider preferences or a changing clinical situation may require ?modification of this regimen. Consult [facility] Interventional Cardiology for ?questions. ?The 1 year [...] against any medical treatment. Consult ?http://tools.acc.org/DAPTriskapp/#!/content/calculator/ or [facility] ?Interventional Cardiology for questions ? Conclusions: ?* [...] Procedure Note Moi Ledezma MD - 01/14/2022 [facility] Cardiac Catheterization/Intervention Report Patient Name: Afua RosalesMono Procedure Date: 01/03/2022 A #: [id number] Primary Physician: Moi Ledezma Case #: [id number] File Name: [id number] Catheterization Order Number: [id number] [facility] FinalReport [place], [place] Patient Name: Afua Rosales ID#:[id number] :1975 Procedure Date: January 03, 2022 Case [...] patientwas designated as ASA Class IV. The [facility] clinical frailty scale is 5:Mildly Frail. Diagnostic Tests: Electrocardiography: EKG was assessed by ECG. EKG was Abnormal. EKG showed STDeviation >= 0.5 mm and other abnormality. Medications Prior to Procedure: Aspirin, Statin and Thrombolytic (any). Indications for Diagnostic Cath: The priority of the diagnostic procedure was Emergent. Theindication for the dental laboratory technology teacher visit is ACS less than or equal [...] SH guiding catheter and a 3.5 Fr [facility] [address] 20 Mhz.Imaging was successful. Image quality was excellent. The mid RCA showedsevere diffuse atherosclerotic plaque. Measurements were performed after pre-dilation. Post Intervention: The stent was well expanded and apposed. Intravascular Ultrasound was performed in the distal RCA using a 6Fr JR 4 SH guiding catheter and a 3.5 Fr [facility] [address] 20 Mhz. Imaging was successful. Image quality was excellent. The distalRCA showed severe diffuse atherosclerotic plaque. Measurements were performed after pre-dilation. Post Intervention: The stent was well expanded and apposed. Indication for Intervention: Coronary intervention was indicated for primary therapy for an acute myocardial infarction. The priority for the procedure was Emergent.The [facility] indication for the procedure was STEMI (after [...] The lesion was predilated with a 2.00mm [id number] MM balloon with a maximum inflation pressure [...] dose administered prior to arrival in the dental laboratory technology teacher. Recommended anti-platelet/anti-thrombotic regimen: Start aspirin 81 mg daily now and continue for indefinitely. Start clopidogrel 75 mg daily now and continue for 12 months thenstop. These recommendations are made at the time of the intervention.Patient and provider preferences or a changing clinical situation mayrequire modification of this regimen. Consult [facility] Interventional Cardiologyfor questions. The 1 year bleeding [...] or against any medical treatment.Consult http://tools.acc.org/DAPTriskapp/#!/content/calculator/ or [facility] Interventional Cardiology for questions Conclusions: * Two [...] (ABNORMAL) POCT Glucose (01/03/2022 11:31 PM EDT) [facility] Signature Glucose, POC 200(H) 65 - 199 mg/dL [facility] Comment: Supplemental ranges: <140 mg/dL before meals <180 mg/dL all other times of the day Blood 01/03/2022 11:3 1 PM EDT 01/03/2022 11:31 PM EDT Moi Ledezma MD POINT OF CARE TEST O RDERABLES [facility] [place] [address] * (ABNORMAL) POCT Glucose (01/03/2022 10:56 PM EDT) Glucose, POC 265(H) 65 - 199 mg/dL [facility] Comment: Supplemental ranges: <140 mg/dL before meals <180 mg/dL all other times of the day Blood 01/03/2022 10:5 6 PM EDT 01/03/2022 10:56 PM EDT Moi Ledezma MD POINT OF CARE TEST O RDERABLES [facility] [place] [address] * (ABNORMAL) Point of Care Blood Gas Historical (01/03/2022 10:38 PM EDT) pH, POC 7.35 7.35 - 7.45 [facility] pCO2, POC 46(H) 35 - 45 mmHg [facility] pO2, POC 93 85 - 104 mmHg [facility] Base Excess, POC 0.0 -3.0 - 3.0 mmol/L [facility] Bicarbonate, POC 25.3 20.0 - 26.0 mmol/L [facility] Sodium, POC 141 135 - 145 mmol/L [facility] POC Potassium 3.7 3.5 - 5.0 mmol/L [facility] Ionized Calcium, POC 1.26 1.15 - 1.33 mmol/L [facility] POC Hematocrit 35.0 34.0 - 45.0 % [facility] POC Calc Hgb 11.9 11.2 - 15.7 g/dL [facility] Comment:The calculation of h emoglobin from hematocrit assumes a normal MCHC. POC Bgas Loc CC LAB [facility] Blood 01/03/2022 10:3 8 PM EDT 01/09/2022 12:00 PM EDT Ray Salomon MD CHEMISTRY ORDERABLES Performing Organization Address City/[facility]/ZIP Co de Phone Number [facility] [place] [address] * (ABNORMAL) POCT Glucose (01/03/2022 10:37 PM EDT) Glucose, POC 63(L) 65 - 199 mg/dL [facility] Comment: Supplemental ranges: <140 mg/dL before meals <180 mg/dL all other times of the day Blood 01/03/2022 10:3 7 PM EDT 01/03/2022 10:37 PM EDT Moi Ledezma MD POINT OF CARE TEST O RDERABLES Performing Organization Address [facility] Co de Phone Number [facility] [place] [address] documented in this encounter Visit Diagnoses Not on filedocumented in this encounter Admitting Diagnoses Diagnosis STEMI [...] PRN, Starting on 01/04/22 at 0330, Until Thu01/06/22 at 1703, For BG 50-70 mg/dL: Oral [...] for the duration of the active insulin. dextrose 50% intravenous solution ONCE PRN, Starting on Thu01/03/22 at 2245, Until Thu01/03/22 at 2344, Cath (Intra-Procedure), Routine Given 01/03/2022 10:45 PM EDT 50 mLs enoxaparin (Lovenox) (40 mg/0.4 mL) subcutaneous injection 40 mg 40 mg, Subcutaneous, NIGHTLY, First dose on Thu01/04/22 at 2100, Until Discontinued, Routine Given 01/05/2022 8:13 PM EDT 40 mg Given 01/04/2022 9:46 PM EDT 40 mg Ab dominal Tissue fentaNYL (pf) (50 mcg/mL) multi-dose injection ONCE PRN, Starting on Thu01/03/22 at 2230, Until Thu01/03/22 at 2344, Cath (Intra-Procedure), Routine Given 01/03/2022 10:35 PM EDT 12.5 mcg glucagon (Glucagen) (1 mg/mL) injection solution 1 mg 1 mg, Intramuscular, EVERY 30 MIN PRN, Starting on 01/04/22 at 0330, Until Thu01/06/22 at 1703, Low blood sugar, For BG [...] tube = 37.5 grams.), Routine heparin (porcine) (1,000 units/mL) injection ONCE PRN, Starting on Thu01/03/22 at 2240, Until Thu01/03/22 at 2344, Cath (Intra-Procedure), Routine Given 01/03/2022 10:40 PM EDT 2,500 Units insulin glargine-ygfn (Semglee) (100 unit/mL) subcutaneous injection vial 10 Units 10 Units, Subcutaneous, EVERY 24 HOURS, First dose (after last modification) on Thu01/05/22 at 1300, Until Discontinued, Routine Given 01/06/2022 10:01 AM EDT 10 Units Given 01/05/2022 11:40 AM EDT 10 Units insulin lispro (HumaLOG;Admelog) (100 unit/mL) subcutaneous [...] Given 01/05/2022 8:13 AM EDT 1 Units iohexoL (Omnipaque) (350 mg/mL) solution ONCE PRN, Starting on Thu01/03/22 at 2341, Until Thu01/03/22 at 2344, Cath (Intra-Procedure), Routine Given 01/03/2022 11:41 PM EDT 119 mLs metoprolol succinate XL (Toprol-XL) tablet 50 mg 50 mg, Oral, DAILY, First dose on 01/06/22 at 1000, Until Discontinued, DO NOT CRUSH OR OPEN, Routine Given 01/06/2022 9:25 AM EDT 50 mg midazolam (pf) (Versed) (1 mg/mL) multi-dose injection ONCE PRN, Starting on Thu01/03/22 at 2231, Until Thu01/03/22 at 2344, Cath (Intra-Procedure), Routine Given 01/03/2022 10:35 PM EDT 0.5 mg nitroGLYcerin 100 mcg/mL intracoronary dilution ONCE PRN, Starting on Thu01/03/22 at 2248, Until Thu01/03/22 at 2344, Cath (Intra-Procedure), Routine Given 01/03/2022 10:48 PM EDT 100 mcg NORepinephrine (Levophed) (16 mcg/mL) in dextrose 5% 250 mL infusion CONTINUOUS PRN, Starting on Thu01/03/22 at 2249, Until 01/04/22 at 1041, Cath (Intra-Procedure), Routine Rate/Dose Change 01/03/2022 11:30 PM EDT 2.5 mcg/min 9.4 mL/hr New Bag 01/03/2022 10:49 PM EDT 5 mcg/min 18.8 mL/hr sodium chloride 0.9 % (flush) (BD PosiFlush Normal Saline 0.9) flush 5 mL 5 mL, Intravenous, 2 TIMES DAILY, First dose on 01/04/22 at 0115, Until Discontinued, Routine Given 01/06/2022 9:26 AM EDT 5 mLs Given 01/05/2022 8:14 PM EDT 5 mLs Given 01/05/2022 9:37 AM EDT 5 mLs sodium chloride 0.9% infusion CONTINUOUS PRN, Starting on Thu01/03/22 at 2244, Until Thu01/03/22 at 2344, Cath (Intra-Procedure) New Bag 01/03/2022 11:30 PM EDT 500 mLs New Bag 01/03/2022 10:44 PM EDT 500 mLs documented in this encounter Active and Recently Administered Medications Times are shown in EDT. Scheduled Medication Order 01/04/2022 01/05/2022 01/06/2022 aspirin chewable tablet 81 mg 81 mg, Oral, DAILY, First dose on 01/04/22 at 0900, Until Discontinued, Routine 0836 (Given - Provider: George Castro RN) 0937 (Given - Provider: Tj Berry, GUSTAVO) 0925 (Given - Provider: Tj Berry, GUSTAVO) [...] Castro RN) 0937 (Given - Provider: Tj Berry, GUSTAVO) 0925 (Given - Provider: Tj Berry, GUSTAVO) enoxaparin (Lovenox) (40 mg/0.4 mL) subcutaneous injection 40 mg 40 mg, Subcutaneous, NIGHTLY, First dose on 01/04/22 at 2100, Until Discontinued, Routine 2146 (Given [...] on 01/05/22 at 1300, Until Discontinued, Routine 1140 (Given [...] Until Discontinued, Routine 1231 (Given - Provider: Geroge Castro RN) insulin lispro (HumaLOG;Admelog) (100 unit/mL) [...] Reason: Contraindicated)131 9 (Given - Provider: Tj Berry, GUSTAVO)1801 (Given - Provider: Tj Berry RN) 0959 (Given - Provider: Tj Berry RN)1315 (Given - Provider: Tj Berry, GUSTAVO) insulin lispro (HumaLOG;Admelog) (100 unit/mL) subcutaneous injection [...] Provider: George Castro RN - Comment: bg 190)1999 (Not Given - Provider: Sandhya Kennedy RN [...] soft BP)2146 (Given - Provider: John Tovar, GUSTAVO) 0531 (Given - Provider: John Tovar RN) metoprolol tartrate (Lopressor) tablet 12.5 mg (CANCELED) 12.5 mg, Oral, EVERY 6 HOURS SCHEDULED, First dose (after last modification) on 01/05/22 at 1200, Until Discontinued, Hold for systolic BP < 95 mmHg, Hold for HR < 60 BPM, Routine 1138 (Given - Provider: Tj Berry RN)1725 (Given - Provider: Tj Berry, GUSTAVO) 0003 (Given - Provider: Ivette Thakkar, GUSTAVO)0613 [...] GUSTAVO) 0937 (Given - Provider: Tj Berry, GUSTAVO)2013 (Given - Provider: Ivette Thakkar, GUSTAVO) 09 (Given - Provider: Tj Berry, GUSTAVO) PRN Medication Order 01/04/2022 01/05/2022 01/06/2022 dextrose 10% infusion(Linked Group 2) 250 mL, at 1,000 mL/hr, Intravenous, EVERY 30 MIN PRN, Starting on 01/04/22 at 0330, Until Mon 22 at 1703, For BG 50-70 mg/dL: Oral [...] PRN, Starting on 01/04/22 at 0330, Until Thu01/06/22 at 1703, Low blood sugar, For BG [...] PRN, Starting on 01/04/22 at 0022, Until Thu01/06/22 at 1703, flush, Flush pertains to all [...] EVERY 4 HOURS SCHEDULED, First dose on Thu01/04/22 at 1630, Until Discontinued, CORRECTION BOLUS [1-4 [...] PRN, Starting on 01/04/22 at 0330, Until Thu01/06/22 at 1703, Low blood sugar, For BG [...] Routine documented in this encounter Care Teams Director Of Emergency Nursing Relationship Specialty Start Date End Date Felisha Juan, DEMETRIS [address] [place] [address] PCP - General Family Medicine 10/29/15 01/29/22 documented as of this encounter
--- OUTSIDE RECORDS SUMMARY | 2024-04-01 00:34 | XMS_ITS | Encounter Summary ---
Author Organization [facility] [place] [address] Care Team Providers Care Life Support Technician Name Role Phone Yessica Felisha MOLD TECHNICIAN Primary Care Provider + [phone] Reason for Visit * Reason Onset Date Comments Medication Refill 03/03/2019 Encounter Details Date Type Department Care Team (Late st Contact Info) Description 03/03/2019 Refill [place] [address] Francoise Tan MOLD TECHNICIAN [facility] [place] [address] Diabetes mellitus without complication Social History Tobacco Use Types Packs/Day Years Used Date Smoking Tobacco: Never Smokeless Tobacco: Never Sex and Gender Information Value Date Recorded Sex Assigned at Not on file Gender Identity Not on file Sexual Orientation Not on file documented as of this encounter Plan of Treatment Not on file documented as of this encounter Visit Diagnoses Diagnosis Diabetes mellitus without complication Type II or unspecified type diabetes mellitus without mention of complication, not stated as uncontrolled documented in this encounter Care Teams Life Support Technician Relationship Specialty Start Date End Date Felisha Juan APRN [address] [place] [address] PCP - General Family Medicine 10/29/15 01/29/22 documented as of this encounter
--- OUTSIDE RECORDS SUMMARY | 2024-04-01 00:34 | XMS_ITS | Encounter Summary ---
Author Organization [facility] [place] [address] Care Team Providers Care Debone Processing Supervisor Name Role Phone Felisha Juan APRN Primary Care Provider + [phone] Reason for Visit * Reason Onset Date Comments Pump/sensor 08/31/2019 Encounter Details Date Type Department Care Team (Late st Contact Info) Description 08/31/2019 Telephone [place] [id number] Tosin Solares Pump/sensor Social History Tobacco Use Types Packs/Day Years Used Date Smoking Tobacco: Never Smokeless Tobacco: Never Sex and Gender Information Value Date Recorded Sex Assigned at Not on file Gender Identity Not on file Sexual Orientation Not on file documented as of this encounter Miscellaneous Notes * Telephone Encounter - Tosin Solares - 08/31/2019 10:47 AM EST Documentation request received from [place] [phone] office notes routed Confirmed 08/31 documented in this encounter Plan of Treatment Not on file documented as of this encounter Visit Diagnoses Not on filedocumented in this encounter Care Teams Debone Processing Supervisor Relationship Specialty Start Date End Date Felisha Juan APRN [address] [place] [address] PCP - General Family Medicine 10/29/15 01/29/22 documented as of this encounter
--- OUTSIDE RECORDS SUMMARY | 2024-04-01 00:34 | XMS_ITS | Encounter Summary ---
Author Organization [facility] [place] [address] Care Team Providers Care Policy Advisor Name Role Phone Yessica Felisha BARBER APPRENTICE Primary Care Provider [phone] Reason for Visit * Reason Onset Date Comments Medication Refill 11/12/2017 Encounter Details Date Type Department Care Team (Late st Contact Info) Description 11/12/2017 [place] [address] Francoise Tan BARBER APPRENTICE [facility] [place] [address] Diabetes mellitus without complication Social History Tobacco [...] uncontrolled documented in this encounter Care Teams Policy Advisor Relationship Specialty Start Date End Date Felisha Juan APRN [address] [place] [address] PCP - General Family Medicine 10/29/15 01/29/22 documented as of this encounter
--- OUTSIDE RECORDS SUMMARY | 2024-04-01 00:34 | XMS_ITS | Encounter Summary ---
Author Organization [facility] Address [facility] [place] [address] Care Team Providers Care Frame Welder Cargo Utility Trailers Name Role Phone Felisha Juan APRN Primary Care Provider + [phone] Encounter Details Date Type Department Care Team (Late st Contact Info) Description 01/03/2022 Notes Only Cardiology [facility] [place] [address] Madi Briceño MD [facility] [place] [address] Social History Tobacco Use Types Packs/Day Years Used Date Smoking Tobacco: Never Smokeless Tobacco: Never Sex and Gender Information Value Date Recorded Sex Assigned at Not on file Gender Identity Not on file Sexual Orientation Not on file documented as of this encounter Progress Notes * Madi Briceño MD - 01/03/2022 8:43 PM EDT Images from the original note were not included. STEMI Alert Note Index Event Data Initial Contact Date and Time: 01/03/2022 8:30 PM Referring Provider: Dr. Leone Date and Time of Presentation: 01/03/2022 8:25 PM Hospital to which patient presented: [facility] If Hospital to which patient presented= [facility]: ED Walk In Date and Time of [facility] Contact: 01/10/2022 8:25 PM Medical History (prior to current presentation) Atrial Fibrillation/ Atrial Flutter: No Hypertension: No Dyslipidemia: Yes Angina: No Myocardial Infarction: No Diabetes Mellitus: Yes Prior Percutaneous Coronary Intervention: No Prior Coronary Artery Bypass Graft: No Cerebrovascular Disease: No Tobacco Use: Unknown Presenting Symptoms per OSH/EMS Free Text Pt is a 46 y/o with PMH DM1 DM1 c/b b/l retinopathy and blindness and HLD who presented after feeling diaphoretic and weak with some chest pain. Significant other checked BS as this typically happens when patient was hypoglycemic which was normal. Given these symptoms she was brought to the ED where she was found to have an inferior STEMI. Per provider, patient is currently weak and uncomfortable, but is responding to all questions appropriately. Time of continuous symptom onset to ED presentation Estimated total time from symptom onset to treatment (PCI or thrombolytic) >4 hours: No Chest Pain: No Shortness of breath: No Syncope: No Cardiac Arrest: No Other: Diaphoresis and Nausea ECG Date and Time Initial ED EC01/03/2022 8:21 PM Date and Time First Diagnostic ECG (can be pre-hospital or ED): 01/03/2022 8:21 PM Rhythm: Sinus EKG Interpretation(choose all that apply): Inferior ST elevation and Anterior ST depressions Meets Strict STEMI ECG Criteria New ST elevation in V2-V3 of >- 2 mm in men, or >- 1.5 mm in women: No New ST elevation of >1 mm in other contiguous leads including limb leads: Yes Evidence of Q-wave infarction: No LBBB meeting Sgarbossa criteria for STEMI: No ST depressions with prominent R wave in V2-V3 (suspected posterior infarct): No Exam at Presentation HR: 70 SBP: 95 DBP: 54 Killip class: I (no rales) [place] Risk Score for STEMI Age: <65 years (0 points) Diabetes, Hypertension or Angina: Yes (1 point) Systolic BP <100 mmhg: Yes (3 points) Heart rate >100: No (0 points) Killip Class II-IV (JVD or any pulmonary exam findings of CHF): No (0 points) Weight <67 kg (147 lbs): Yes (1 point) Anterior ST Elevation or LBBB: No (0 points) Time to treatment > 4 hours: No (0 points) Total Points and % 30 day mortality risk (choose one): 5 points= 12.4% Other Diagnostics: CXR showed possible cephalization. Labs and COVID pending. Treatment Beta Angela (Any): None Asprin (Any): Yes Asprin Date/Time: 01/03/2022 9:30 PM Adjunctive PLT Inhibitor: Clopidogrel 300mg Anti-thrombotic used: Unfractionated Heparin Thrombolytic: TNK(tenecteplase) Thrombolytic Dose: Full dose Thrombolytic Date/Time: 01/03/2022 8:35 PM Contraindications to thrombolytic: Not contraindicated Plan Plan Detail: Pt has tombstoning EKG of RCA with some elevation of lateral. No contraindications to lytics. -35mg TNK (weight 66kg) -300 plavix -hep bolus and gtt -1L fluids -Levo or epi if needed to maintain MAP >65 -No nitro given BP and inferior stemi STEMI Alert called: Yes Buffet Attendant Activated by: Manager Product Design Initial Disposition: Admit Buffet Attendant documented in this encounter Plan of Treatment Not on file documented as of this encounter Visit Diagnoses Not on filedocumented in this encounter Care Teams Frame Welder Cargo Utility Trailers Relationship Specialty Start Date End Date Felisha Juan, DEMETRIS [address] [place] [address] PCP - General Family Medicine 10/29/15 01/29/22 documented as of this encounter
--- OUTSIDE RECORDS SUMMARY | 2024-04-01 00:34 | XMS_ITS | Encounter Summary ---
Author Organization [facility] Address [place] [address] Care Team Providers Care Plastics Engineering Teacher Name Role Phone Carey Hall MD Primary Care Provider [phone] Reason for Visit * Reason Comments Diabetic Foot Care Other left foot 2nd toe in jury Encounter Details Date Type Department Care Team (Late st Contact Info) Description 02/20/2015 8:30 AM EDT Office Visit Podiatry at [address] [place] [address] Ritesh Mackey Jr., [address] [address] Dermatophytosis of nail; Foot pain, unspecified laterality; DM w/o complication type II Social History Tobacco Use Types Packs/Day Years Used Date Smoking Tobacco: Never Smokeless Tobacco: Never Sex and Gender Information Value Date Recorded Sex Assigned at Not on file Gender Identity Not on file Sexual Orientation Not on file documented as of this encounter Progress Notes * Ritesh Mackey Jr., DPM - 02/20/2015 8:33 AM EDT Subjective: She presents to the clinic for care of severely thickened dsytrophic toenails. She complains of a significant amount of pain due to the thickness of the nails. Past Medical History: + Diabetes, Type II, Peripheral vascular disease Objectives: Thickened dystrophic toenails 1-5 bilateral. Each of the dystrophic nails are painful on palpation. Nails display clinical signs of yeithih-dyizvlgpyh-efgqvs in appearance, thickened greater than 2mm, Brittle [...] now clearly mycotic and now clearly painful Pt had abrasion on 2nd toe left which occurred this morning. There was recent dried blood all over the toe which was not covered. I cleansed area and superficial abrasion. Covered with betadyne and bandaid. documented in this encounter Plan of Treatment Not on file documented as of this encounter Visit Diagnoses Diagnosis Dermatophytosis of nail Foot pain, unspecified laterality DM w/o complication type II Type II or unspecified type diabetes mellitus without mention of complication, not stated as uncontrolled documented in this encounter Care Teams Plastics Engineering Teacher Relationship Specialty Start Date End Date Carey Hall MD [address] [place] [address] PCP - General 06/25/10 10/28/15 documented as of this encounter
--- OUTSIDE RECORDS SUMMARY | 2024-04-01 00:34 | XMS_ITS | Encounter Summary ---
Author Organization [facility] [place] [address] Care Team Providers Care Family Court Justice Name Role Phone Yessica Felisha WILLSON Primary Care Provider [phone] Encounter Details Date Type Department Care Team (Late st Contact Info) Description 11/23/2020 Notes Only Endocrinology [place] [facility] [address] Micki Leone, RN TRAVELING Social History Tobacco Use Types Packs/Day Years Used Date Smoking Tobacco: Never Smokeless Tobacco: Never Sex and Gender Information Value Date Recorded Sex Assigned at Not on file Gender Identity Not on file Sexual Orientation Not on file documented as of this encounter Progress Notes * Micki Leone RMA - 11/23/2020 1:18 PM EDT Physicians Rx for Diabetic Supplies faxed to [employer]. Confirmation received. documented in this encounter Plan of Treatment Not on file documented as of this encounter Visit Diagnoses Not on filedocumented in this encounter Care Teams Family Court Justice Relationship Specialty Start Date End Date Felisha Juan APRN [address] [place] [address] PCP - General Family Medicine 10/29/15 01/29/22 documented as of this encounter
--- OUTSIDE RECORDS SUMMARY | 2024-04-01 00:34 | XMS_ITS | Encounter Summary ---
Author Organization [facility] [place] [address] Care Team Providers Care Proofer Apprentice Name Role Phone Felisha Juan APRN Primary Care Provider + [phone] Encounter Details Date Type Department Care Team (Late st Contact Info) Description 08/18/2017 Notes Only Endocrinology at [facility] [place] [address] Danielle Trejo, GUSTAVO Social History Tobacco Use Types Packs/Day Years Used Date Smoking Tobacco: Never Smokeless Tobacco: Never Sex and Gender Information Value Date Recorded Sex Assigned at Not on file Gender Identity Not on file Sexual Orientation Not on file documented as of this encounter Progress Notes * Danielle Trejo, GUSTAVO - 08/18/2017 11:19 AM EST Physician's Rx For Diabetic Supplies/BS testing signed by Francoise Tan and faxed with confirmationto Med. documented in this encounter Plan of Treatment Not on file documented as of this encounter Visit Diagnoses Not on filedocumented in this encounter Care Teams Proofer Apprentice Relationship Specialty Start Date End Date Felisha Juan APRN [address] [place] [address] PCP - General Family Medicine 10/29/15 01/29/22 documented as of this encounter
--- OUTSIDE RECORDS SUMMARY | 2024-04-01 00:34 | XMS_ITS | Encounter Summary ---
Author Organization [facility] [place] [address] Care Team Providers Care Waste Management Engineer Name Role Phone Felisha Juan CELLULAR TOWER CLIMBER Primary Care Provider + [phone] Reason for Visit * Reason Comments Diabetes Encounter Details Date Type Department Care Team (Latest Contact Info) Description 09/29/2017 10:30 AM EST Office Visit [place] [address] Francoise Tan APRN [facility] [place] [address] Type 1 diabetes mellitus with proliferative retinopathy [...] Sign Reading Time Taken Comments Blood Pressure 114/76 09/29/2017 10:26 AM EST Pulse 92 09/29/2017 10:26 AM EST Temperature - - Respiratory Rate - - Oxygen Saturation - - Inhaled Oxygen Concentration - - Weight 63 kg (139 lb) 09/29/2017 10:26 AM EST Height 162.6 cm (5' 4) 09/29/2017 10:26 AM EST Body Mass Index 23.86 09/29/2017 10:26 AM EST documented in this encounter Patient Instructions * Patient Instructions* Francoise Tan APRN - 09/29/2017 10:30 AM EST [facility] [place] [facility]. Soft brush and floss Contact [facility] [place] documented in this encounter Progress Notes * Francoise Tan APRN - 09/29/2017 10:30 AM EST Office visit note for Kailey Hernandez. Date of visit 09/29/2017 Reason for visit: follow-up type I with complications in continued good overall control. Brief history: presents with friend Delano who has type 2 DM. Previous visit to endocrinology on 08/22/2016 with Rosie Tao MD, who has since finished her residency. That note was reviewed. Date of diagnosis of diabetes: at age 7 Complications: retinopathy, neuropathy 24 hour meal plan: breakfast is toast with peanut butter, lunch is leftovers, evening meal was homemade chicken soup. Goes to the food pantry for assistance with food supply. Diabetes regimen Lantus 22 units in a.m., NovoLog up to 8 units before meals 3 times a day Physical exam appearance: She appears somewhat frail. Has no upper teeth. Blood pressure 114/76, weight 139 pounds. Eyes: Scars noted with greenlight exam. Neck: No thyromegaly or lymphadenopathy. Heart: Regular rate and rhythm. Lungs are clear to auscultation. Feet: Skin is normal, pulses are present. Neuro: no sensation from knees distally with 10 G's of pressure. 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 Reviewed written blood glucose log. SBGM: 6 times a day. Reason for higher frequency testing is to avoid severe hypoglycemia and avoid severe hyperglycemia. Delano helps her to fill the syringes to the correct insulin d oses. Return to office in 1 year. Will check hemoglobin A1c, TSH ,microalbumin. Gaver her information to contact [facility] for dental care. This was a 38 minute office visit with 27 minutes spent counseling [id number] with patient and friend in the management of glucose levels, reviewed prevention and treatment of hypoglycemia, advisedvitamin D daily. 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 HEMOGLOBIN A1C Routine 09/29/2017 11:39 AM EST 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 U ALBUMIN/CRE RATIO Routine 09/29/2017 1 1:30 AM EST 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 1, V00-96 Estimated Average Glucose 166 mg/dL [facility] Comment: eAG equivalents for [...] into estimated average glucose values. ??Diabetes Care 2008:31(8):0672-2655. Blood specimen (specimen) 09/29/2017 11:39 AM EST 09/29/2017 11:49 AM EST Narrative Resulting Agency Comment Spec In Lab Francoise Tan APRN CHEMISTRY ORDERABLE S [facility] [place] [address] * U Albumin/Cre Ratio (09/29/2017 11:30 AM EST) Albumin / Creatinin Ratio, Urine 8 0 - 29 mcg/mg Cr [facility] Comment: Reference Ranges: <30 mcg/mg: [...] 2, 357? 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
--- OUTSIDE RECORDS SUMMARY | 2024-04-01 00:34 | XMS_ITS | Encounter Summary ---
Author Organization [facility] [place] [address] Care Team Providers Care Die Repairer Trimmer Dies Name Role Phone Yessica Felisha HANDS ASSEMBLER Primary Care Provider [phone] Encounter Details Date Type Department Care Team (Late st Contact Info) Description 08/17/2017 Notes Only Endocrinology at [facility] [place] [address] Huong Ovalle, RN Social History Tobacco Use Types Packs/Day Years Used Date Smoking Tobacco: Never Smokeless Tobacco: Never Sex and Gender Information Value Date Recorded Sex Assigned at Not on file Gender Identity Not on file Sexual Orientation Not on file documented as of this encounter Progress Notes * Huong Ovalle, RN - 08/17/2017 4:30 PM EST [facility] for testing supplies sent to provider for signature documented in this encounter Plan of Treatment Not on file documented as of this encounter Visit Diagnoses Not on filedocumented in this encounter Care Teams Die Repairer Trimmer Dies Relationship Specialty Start Date End Date Felisha Juan APRN [address] [place] [address] PCP - General Family Medicine 10/29/15 01/29/22 documented as of this encounter
--- OUTSIDE RECORDS SUMMARY | 2024-04-01 00:34 | XMS_ITS | Encounter Summary ---
Author Organization [facility] [place] [address] Care Team Providers Care Furniture Mover Helper Name Role Phone Felisha Juan APRN Primary Care Provider [phone] Encounter Details Date Type Department Care Team (Late st Contact Info) Description 11/09/2017 Orders [place] [address] Francoise Tan APRN [facility] [place] [address] Social History Tobacco Use Types Packs/Day Years [...] on filedocumented in this encounter Care Teams Furniture Mover Helper Relationship Specialty Start Date End Date Felisha Juan APRN [address] [place] [address] PCP - General Family Medicine 10/29/15 01/29/22 documented as of this encounter
--- OUTSIDE RECORDS SUMMARY | 2024-04-01 00:34 | XMS_ITS | Encounter Summary ---
Author Organization [facility] Address [facility] [place] [address] Care Team Providers Care Profiling Machine Setup Operator Name Role Phone Felisha Juan APRN Primary Care Provider + [phone] Encounter Details Date Type Department Care Team ([facility] st Contact Info) Description 11/13/2020 1:00 PM EDT Office Visit [place] [address] Breana Tee MD [facility] [place] [address] Controlled type 1 diabetes mellitus with retinopathy [...] Sign Reading Time Taken Comments Blood Pressure 120/61 11/13/2020 12:27 PM EDT Pulse 104 11/13/2020 12:27 PM EDT Temperature 36.8 ??C (98.2 ??F) 11/13/2020 12:27 PM E DT Respiratory Rate - - Oxygen Saturation 100% 11/13/2020 12:27 PM EDT Inhaled Oxygen Concentration - - Weight 67.7 kg (149 lb 4.8 oz) 11/13/2020 12:27 PM EDT Height 162.6 cm (5' 4.02) 11/13/2020 12:27 PM E DT Body Mass Index 25.61 11/13/2020 12:27 PM EDT documented in this encounter Patient Instructions * Patient Instructions* Breana Tee MD - 11/13/2020 1:00 PM EDT documented in this encounter Progress Notes * Breana Tee MD - 11/13/2020 1:00 PM EDT Diabetes Follow-up Patient Evaluation [facility] Name: Kailey Hernandez Date: 11/13/20 CC: Diabetes management HPI: Kailey Hernandez is a 45 y.o.female with PMH significant for DM1 c/b b/l retinopathy and blindness who comes to the clinic for management of diabetes. Ms. Hernandez is doing well with no acute concerns about her DM management. Initially during the visit, she stated that she received a letter from [facility] that stated she can no longer receive test strips for her talking Prodigy talking meter. She produced a number to call ( ). However, her boyfriend stepped in at the end of our visit and it seems that she just needs a refill of her test strips. Diabetes Mellitus Type 1 * Diagnosed (year): Age 7 * Last Hgb A1C: 7.3 %, done October 2019 - Current DM medications: - Orals: none - Injectables: Basaglar 21 units daily in AM Novolog CF 25 for BG >150 before meals (no separate meal dose, not using with snacks) Has tried I:C ratio with meals before but feels that it did not work well - Monitors sugars: >6 times a day Examples (range): - fasting: usually 100s, few 80-90, few >200 mg/dL - pre-prandial: 100-300s mg/dL - post-prandial: 100-300s mg/dL - History of hypoglycemia: None recently - Hospitalized for DM: Yes, around age 11-12 (?DKA) Diabetes-related complications: * Retinopathy: Yes, last dilated eye exam: pt unsure * Nephropathy: No, last A:C ratio: n/a * Neuropathy: Yes * Autonomic dysfunction: No * History of amputations or foot ulcers: No * ASCVD: No Lifestyle: 24-hour diet history: 3 meals/day 3 snacks/day * Breakfast: PB sandwich * Lunch: [place]? steak on a burger bun * Dinner: Part of a subway sandwich * Snacks: Crackers, cheese * Desserts: No * Drinks: No 2019QI Exercise: Predominantly walking Prevention: Statin: Pravastatin 20 mg (no hx of intolerance) NATE/ARB: None Support and Resources: - Visit with heating systems installer in the last 2 years: No ROS: Endocrine: no weight changes Lungs: +cough (allergies) : no polyuria All other review of systems negative except as above in HPI. MEDICAL/SURGICAL HISTORY: No past medical history on file. Allergies Allergen Reactions ??? Cephalexin THROAT SWELLS ??? Aspirin SYNCOPE,RASH ??? Codeine SYNCOPE,RASH ??? Codeine Phosphate ??? Fish Containing Products ??? Shellfish Derived Current Outpatient Medications: ??? blood sugar diagnostic strips Strip, Use as instructed to test BS 6 times a day., Disp: 100 each, Rfl: 12 ??? insulin aspart U-100 (NOVOLOG FLEXPEN U-100 INSULIN) Insulin Pen, Inject 0- 10 Units subcutaneously 3 times daily (before meals). ICD 10 Code: E10.3593, Disp: 30 mL, Rfl: 2 ??? LANTUS SOLOSTAR Insulin Pen, Inject 25 Units subcutaneously nightly., Disp: , Rfl: 0 ??? BD INSULIN PEN NEEDLE UF SHORT 31 X 5/16 Needle, , Disp: , Rfl: 11 ??? albuterol (PROVENTIL HFA;VENTOLIN HFA) 90 mcg/Actuation inhaler, Inhale 2 puffs into the lungs every 4 hours as needed. Reported on 08/22/2016, Disp: , Rfl: ??? pravastatin (PRAVACHOL) 40 mg Tablet, TAKE ONE TABLET BY MOUTH AT BEDTIME, Disp: , Rfl: ??? cholecalciferol, Vitamin D3, (Vitamin D3) 1,000 unit Tablet, TAKE 1/2 TABLET BY MOUTH TWICE A DAYY, Disp: , Rfl: ??? GLUCAGON EMERGENCY KIT, HUMAN, 1 mg Kit, Reported on 08/22/2016, Disp: , Rfl: 3 No past surgical history on file. FAMILY HISTORY: No family history on file. SOCIAL HISTORY: Social History Tobacco Use ??? Smoking status: Never Smoker ??? Smokeless tobacco: Never Used Substance Use Topics ??? Alcohol use: Not on file ??? Drug use: Not on file - Occupation: Disability - Lives with: Boyfriend, His daughter and her daughter at home PHYSICAL EXAM: BP 120/61 Pulse (!) 104 Temp 36.8 ??C (98.2 ??F) Ht 162.6 cm (5' 4.02) Wt 67.7 kg (149 lb 4.8 oz) SpO2 100% BMI 25.61 kg/m?? Gen: NAD, AAOx3, speaking full sentences, pleasant demeanor, normal habitus Skin: no acanthosis nigricans, no rashes, no bruising, no hyperpigmentation Eyes: EOMI, anicteric sclerae without injection, no proptosis or lid lag ENT: +face mask Neck: no thyromegaly Pulm: breathing comfortably MSK: moving all extremities, no LE edema Neuro: CN 2-12 grossly intact, no tremor LABS: 11/01/20 Glu 81 Cr 0.8 LDL 99 ASSESSMENT AND PLAN: Kailey Hernandez is a 45 y.o.female with PMH significant for DM1 c/b b/l retinopathy and blindness who comes to the clinic for management of diabetes. Ms. Hernandez is doing well with no concerns. She knows to adjust her basal insulin according to fasting BG. Although her current insulin regimen is somewhat unconventional, she is doing relatively wellwith a recent A1C of 7.3 so we do not recommend making any changes. I have sent a prescription for her test strips to [facility] on 10/09/20 so this should not be an issue. I asked the pt and her boyfriendto call and let us know if there are any problems. #DM1 c/b b/l retinopathy and blindness - continue Basaglar 21 units daily in AM, adjust for goal fasting BG 90-150 - continue Novolog CF 25 for BG >150 before meals (pt has printed chart) - test strip refills provided No orders of the defined types were placed in this encounter. Patient was seen and discussed with Attending Physician, Dr. Wright. Follow up in 6 months. Breana Tee MD Endocrinology, Diabetes and Metabolism 11/13/2020 * Olegario Wright DO - 11/13/2020 1:00 PM EDT I have seen the patient and reviewed Dr Tee's history and I agree with the details as written. Theassessment and plan were formulated in discussion with me and I agree with them as documented. Olegario Wright DO, MS Safety Instruction Police Officerprototype model maker Section of Endocrinology [facility] documented in this encounter Plan of Treatment Not on file documented as of this encounter Visit Diagnoses Diagnosis Controlled type 1 diabetes mellitus with retinopathy of both eyes, macular edema presence unspecified, unspecified retinopathy severity documented in this encounter Care Teams Profiling Machine Setup Operator Relationship Specialty Start Date End Date Felisha Juan, DEMETRIS [address] [place] [address] PCP - General Family Medicine 10/29/15 01/29/22 documented as of this encounter
--- OUTSIDE RECORDS SUMMARY | 2024-04-01 00:34 | XMS_ITS | Encounter Summary ---
Author Organization [facility] Address [facility] [place] [address] Care Team Providers Care Van Driver Name Role Phone Felisha Juan APRN Primary Care Provider Encounter Details Date Type Department Care Team (Late st Contact Info) Description 03/03/2016 Orders Only [place] [address] Rosie Tao MD [facility] [place] [address] Diabetes mellitus without complication Social History Tobacco [...] uncontrolled documented in this encounter Care Teams Van Driver Relationship Specialty Start Date End Date Felisha Juan APRN [address] [place] [address] PCP - General Family Medicine 10/29/15 01/29/22 documented as of this encounter
--- OUTSIDE RECORDS SUMMARY | 2024-04-01 00:34 | XMS_ITS | Encounter Summary ---
Author Organization [facility] [place] [address] Care Team Providers Care Molded Candles Wicker Name Role Phone Felisha Juan APRN Primary Care Provider + [phone] Encounter Details Date Type Department Care Team (Latest Contact Info) Description 08/22/2016 9:00 AM EST Laboratory Appointment Lab at [facility] [place] [address] Type 1 diabetes mellitus with retinopathy Social History Tobacco Use Types Packs/Day Years Used Date Smoking Tobacco: Never Smokeless Tobacco: Never Sex and Gender Information Value Date Recorded Sex Assigned at Not on file Gender Identity Not on file Sexual Orientation Not on file documented as of this encounter Plan of Treatment Not on file documented as of this encounter Procedures Procedure Name Priority Date/Time Associated Diagnosis Comments U ALBUMIN/CRE RATIO STAT 08/22/2016 9 :06 AM EST Type 1 diabetes mellitus with retinopathy HEMOGLOBIN A1C STAT 08/22/2016 8:51 AM EST Type 1 diabetes mellitus with retinopathy LIPID PANEL (REFLEX DIRECT LDL) Routine 08/22/2016 8:51 AM EST Type 1 diabetes mellitus with retinopathy documented in this encounter Results * Microalbumin, urine, random (08/22/2016 9:06 AM EST) Albumin / Creatinin Ratio, Urine 17 0 - 29 mcg/mg Cr [facility] Comment: Reference Ranges: <30 mcg/mg: [...] 2, 357? 362 Albumin, Urine 12.4 mg/L [facility] Creatinine, Urine 75 mg/dL [facility] Urine specimen (specimen) 08/22/2016 9:06 AM EST 08/22/2016 9:20 AM EST Narrative Resulting Agency Comment Spec In Lab Olegario Wright DO URINE ORDERABLES [facility] [place] [address] * Lipid panel (fasting) (08/22/2016 8:51 AM EST) Cholesterol, Total 129 <=239 mg/dL [facility] Triglyceride 56 <=199 mg/dL [facility] HDL Cholesterol 55 >=40 mg/dL [facility] LDL Cholesterol 63 <=190 mg/dL [facility] Cholesterol/HDL Ratio 2.3 ratio [facility] Lipid Interpretation See Note [facility] Comment: Lipid management should be guided by a patient? s ASCVD risk, goals and preferences. ACC/AHA Guidelines recommend high intensity statin if clinical ASCVD or LDL greater than or equal to 190 mg/dL. http://circ.ahajournals.org/content/early/.cir.6915493020.40858.7a Adults aged 40-75 with LDL 70-189 mg/dL should have their 10 year ASCVD risk estimated with the ACC/AHA ASCVD risk tire groover http://tools.acc.org/QXXAJ-Hdez-Kxfhtloix/ Statin should be discussed if risk greater [...] In Lab Olegario Wright DO CHEMISTRY ORDERABLES [facility] [place] [address] * (ABNORMAL) Hemoglobin A1c (08/22/2016 8:51 AM EST) Hemoglobin A1c 7.4(H) 4.3 - 5.6 % [facility] Comment: Reference Range: 4.3 - [...] Mellitus, Diabetes Care 2013; 36: Suppl. 1, Y17-31 Estimated Average Glucose 166 mg/dL [facility] Comment: eAG equivalents for HbA1c percentages: HbA1c(%) ?eAG(mg/dL) 6.0 ?126 6.5 ?140 7.0 ?154 7.5 ?169 8.0 ?183 8.5 ?197 9.0 ?212 9.5 ?226 10.0 ? 240 Limitations: The eAG calculation has not been validated on women, individuals below 18 years old and above 70 years old, and individuals with hemoglobinopathies. Additional resources are available on the ADA website: http://[employer].ByteActive/DHMCadacalc Tj JESSICA, Mal J, Bk R, et al. ??Translating the A1C assay into estimated average glucose values. ??Diabetes Care 2008:31(8):4773-6244. Blood specimen (specimen) 08/22/2016 8:51 AM EST 08/22/2016 8:58 AM EST Narrative Resulting Agency Comment Spec In Lab Olegario Wright DO CHEMISTRY ORDERABLES Performing Organization Address City/State/[facility] Co de Phone Number [facility] [place] [address] documented in this encounter Visit Diagnoses Diagnosis Type 1 diabetes mellitus with retinopathy documented in this encounter Care Teams Molded Candles Wicker Relationship Specialty Start Date End Date Felisha Juan APRN [address] [place] [address] PCP - General Family Medicine 10/29/15 01/29/22 documented as of this encounter
--- OUTSIDE RECORDS SUMMARY | 2024-04-01 00:34 | XMS_ITS | Encounter Summary ---
Author Organization [facility] [place] [address] Care Team Providers Care Mineral Surveyor Name Role Phone Felisha Juan APRN Primary Care Provider + [phone] Encounter Details Date Type Department Care Team (Late st Contact Info) Description 07/30/2017 Notes Only Endocrinology at [facility] [place] [address] Huong Ovalle, RN Social History Tobacco Use Types Packs/Day Years Used Date Smoking Tobacco: Never Smokeless Tobacco: Never Sex and Gender Information Value Date Recorded Sex Assigned at Not on file Gender Identity Not on file Sexual Orientation Not on file documented as of this encounter Progress Notes * Huong Ovalle, RN - 07/30/2017 8:01 AM EST [facility]O for diabetic supplies faxed to Med on 07/29/17 with confirmation reciept recieved documented in this encounter Plan of Treatment Not on file documented as of this encounter Visit Diagnoses Not on filedocumented in this encounter Care Teams Mineral Surveyor Relationship Specialty Start Date End Date Felisha Juan APRN [address] [place] [address] PCP - General Family Medicine 10/29/15 01/29/22 documented as of this encounter
--- OUTSIDE RECORDS SUMMARY | 2024-04-01 00:34 | XMS_ITS | Encounter Summary ---
Author Organization [facility] Address [facility] [place] [address] Care Team Providers Care Senior Erp Consultant Name Role Phone Jose Pittman Primary Care Provider + [phone] Reason for Visit * Reason Onset Date Comments Medication Refill 11/09/2017 Encounter Details Date Type Department Care Team (Late st Contact Info) Description 11/09/2017 Ref[place] [address] Francoise Tan [facility] [address] ENDOCRINOLOG[place] [address] Diabetes mellitus without complication Social History Tobacco [...] uncontrolled documented in this encounter Care Teams Senior Erp Consultant Relationship Specialty Start Date End Date Jose Pittman PA [address] [place] [address] PCP - General Internal Medicine 01/30/22 documented as of this encounter
--- OUTSIDE RECORDS SUMMARY | 2024-04-01 00:34 | XMS_ITS | Encounter Summary ---
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 Social History Tobacco Use Types Packs/Day Years Used Date Smoking Tobacco: Never Smokeless Tobacco: Never Sex and Gender Information Value Date Recorded Sex Assigned at Not on file Gender Identity Not on file Sexual Orientation Not on file documented as of this encounter Last Filed Vital Signs Vital Sign Reading Time Taken Comments Blood Pressure 132/56 04/18/2016 9:24 AM EDT Pulse 95 04/18/2016 9:24 AM EDT Temperature - - Respiratory Rate - - Oxygen Saturation - - Inhaled Oxygen Concentration - - Weight 65.1 kg (143 lb 9.6 oz) 04/18/2016 9:24 A M EDT Height 162.6 cm (5' 4) 04/18/2016 9:24 AM EDT Body Mass Index 24.65 04/18/2016 9:24 AM EDT documented in this encounter Progress Notes * Rosie Tao MD - 04/18/2016 9:30 AM EDT Last visit 12/2015 Diabetes Outpatient Consult Date of Consultation: 04/18/2016 Consult Requested by: Dr. Juan Reason for Consultation: Kailey Hernandez is a 41 y.o. 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 Diabetes History: Kailey Hernandez has had diabetes Type 1 since age of 7 years. When initially diagnosed, she was extremely fatigued, had polyuria, weight loss, and polydypsia. She was followed by an deliverer merchandise- Dr Hernandez in [place], [place]. She is here for establishment of care since she has moved to [facility]. Her last visit was the initial visit. At that time, she was using lantus + custom mod-resistant sliding scale TID AC. She was using a very stringent carb count of 1:5 g, which led to frequent low BG (gone down to 30's -40's) . Her previous regimen used a total of 70 units of insulin daily of which humalog was 25 units ( 35 %) and lantus was 44 units ( 65 %). We thought her basal regimen is not her true basal ( would expectlower basal requirements close to 12-15 units based on her weight) and hence her basal was being used to cover her bolus needs. We thought this may be related to her inability to use prandial insulinfor carbs as her sliding scale was too resistant and the combination caused post prandial hypoglycemia. Based on her total daily insulin, her 1:C was close to 1:8 and ISF of 1:25. We cut back her lantus by 20 % to total 35 units daily and added insulin for carbs at a ratio of 1:10 g and correct for BG > 150 based on ISF 1:25. She is back for reassessment of her progress on this new regimen Interim history She feels well, A1C is down from 9.1 to 7.3 Current outpatient diabetes regimen: Medications: Basal: Lantus 35 u qd Bolus: Humalog I:C 1:8 g and correction for high BG > 150 based on ISF 1:25 Kailey checks 6 times daily, her typical [...] units QHS. No humalog BG monitoring Fasting- 143-249 Before snack- 67-310 Before lunch- 113-270 Before snack- 105-178 Before dinner- 184-216 Bedtime- 106-168 Lows- only 1-2 times down in 60's before noon time Monitoring is done 6 times a day Most recent HA1c was done on 06/2015 and was 7.3% Typical exercise regimen : none Trouble with hypoglycemia: none Diabetes Complications Status: Eyes: type 1 DM, [...] ??? Shellfish Derived Social history: Social History Substance Use Topics ??? Smoking status: Never Smoker ??? Smokeless tobacco: Never Used ??? Alcohol use None Family history: Neg for DM Vitals Vitals: 04/18/16 0924 BP: 132/56 Pulse: 95 Physical Exam: NAD, very pleasant, BMI-22.9, thin appearing woman, looks younger than stated age Fundoscopy- challenging, but can appreciate laser scars S1S2+ Lungs CTAB Abd soft NT/ND- area of induration in left lower quadrant. No LE edema Feet- absent monofilament and vibration sense upto lower chaidez. Pulses 2+ symmetric + oncychomycosis Labs: 06/2015 A1C- 9.1 03/03/2016 A1C 7.3 % Assessment: Patient is a 41 y.o. years old female with PMH significant for DM (Last A1C of 9.1) who presents for diabetes management. Diabetes suboptimally controlled and complicated by hypoglycemia unawareness. Kailey is currently doing very well with her current regimen. She has brittle DM, and swings from low to high BG, but her recent numbers have shown no signficant hypoglycemia and her A1C has improved from 9.1-> 7.3 % She prefers not to make changes to this current regimen which is working and I agree. We will continue with current plan and bring her back in 3 months to reevaluate Plan: 1. Lantus 35 units q7 AM . Goal BG 90-150. 2. Meal-associated Novolog 1unit: 8 gm carb ratio for each meal) 3. 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 Monitoring - continue BG tid ac & hs Diet - low fat/low carb diet Exercise - weight-bearing exercise 30 min/day, as tolerated Thank you for the consult To be D/w Dr Ann, this was a resident only encounter Rosie Tao MD Endocrine Fellow Pager- [phone] Insulin Discharge Instructions . Instructions for Lantus [...] day to have your insulin doses adjusted. [facility] * Carlos Ann MD - 04/18/2016 9:30 AM EDT I saw this patient with Dr Tao . I reviewed the price portions of the history and physical exam, and reviewed pertinent lab data. I answered all patient questions. I was involved in all medical decision making and agree with this plan. 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
--- OUTSIDE RECORDS SUMMARY | 2024-04-01 00:34 | XMS_ITS | Encounter Summary ---
Author Organization [facility] [place] [address] Care Team Providers Care Director Private Music Therapy Agency Name Role Phone Felisha Juan APRN Primary Care Provider Encounter Details Date Type Department Care Team (Late st Contact Info) Description 11/12/2017 Telephone Endocrinology at [facility] [place] [address] Danielle Trejo, GUSTAVO Social History Tobacco Use Types Packs/Day Years Used Date Smoking Tobacco: Never Smokeless Tobacco: Never Sex and Gender Information Value Date Recorded Sex Assigned at Not on file Gender Identity Not on file Sexual Orientation Not on file documented as of this encounter Miscellaneous Notes * Telephone Encounter - Danielle Trejo, GUSTAVO - 11/12/2017 8:12 AM EDT Patient's boyfriend bypassed triage line to speak to nurse. Boyfriend wants patient's Novolog refill sent [place] rather than [facility]. documented in this encounter Plan of Treatment Not on file documented as of this encounter Visit Diagnoses Not on filedocumented in this encounter Care Teams Director Private Music Therapy Agency Relationship Specialty Start Date End Date Felisha Juan APRN [address] [place] [address] PCP - General Family Medicine 10/29/15 01/29/22 documented as of this encounter
--- OUTSIDE RECORDS SUMMARY | 2024-04-01 00:34 | XMS_ITS | Encounter Summary ---
Author Organization [facility] Address [facility] [place] [address] Care Team Providers Care Holistic Nutritionist Name Role Phone Felisha Juan APRN Primary Care Provider [phone] Reason for Visit * Reason Comments Diabetes Encounter Details Date Type Department Care Team ([facility] Contact Info) Description 08/22/2016 10:00 AM EST Office Visit [place] [address] Rosie Diamond MD [facility] DR ENDOCRINOLOGY [place] [address] Pre-existing type 1 diabetes mellitus in childbirth Social History Tobacco Use Types Packs/Day Years Used Date Smoking Tobacco: Never Smokeless Tobacco: Never Sex and Gender Information Value Date Recorded Sex Assigned at Not on file Gender Identity Not on file Sexual Orientation Not on file documented as of this encounter Last Filed Vital Signs Vital Sign Reading Time Taken Comments Blood Pressure 121/74 08/22/2016 9:51 AM EST Pulse 93 08/22/2016 9:51 AM EST Temperature - - Respiratory Rate - - Oxygen Saturation - - Inhaled Oxygen Concentration - - Weight 63.1 kg (139 lb 3.2 oz) 08/22/2016 9:51 A M EST Height 162.6 cm (5' 4) 08/22/2016 9:51 AM EST Body Mass Index 23.89 08/22/2016 9:51 AM EST documented in this encounter Patient Instructions * Patient Instructions* Rosie Diamond MD - 08/22/2016 10:00 AM EST You have had some fasting low blood sugars, so we will reduce your lantus from 25-> 20 units You are not using enough short acting insulin, we will reintroduce that concept. Please count carbsand give yourself a 1unit for every 12 g of carbohydrate. This is a moving target. If your blood sugar before meals is 1100-180, then ok to continue this carb ratio. If your BG before meals is low, please adjust this yourself to 1: 15 g or even less strong. Will continue current correctional sliding scale Insulin Discharge Instructions . Instructions for Lantus Insulin (LONG ACTING) 1. Inject LANTUS 20 units insulin every 7 am. Check blood glucose (BG) before breakfast 2. If the blood glucose before breakfast is under 90 for two days in a row, subtract TWO units of insulin from the next LANTUS dose. This lower dose becomes your new dose, continue to decrease as needed. Instructions for Mealtime Novolog (or Humalog) Insulin This is the rapid-acting insulin, used at mealtime to prevent a high BG after you eat. Check your BG before each meal. 1. If your BG is 100 or higher, inject Novolog right before eating. 2. If your BG is 80 - 100, inject Novolog right after eating. 3. If your BG is lower than 80, or you have symptoms of a low BG, treat the low BG first, then eat your meal and take the Novolog after eating. 4. Injectnovolog by pen for breakfast, for lunch and for dinner based on a 1 unit per every 12 gramcarbohydrate insulin to carbohydrate ratio. Working with Insulin to Carb Ratios Your insulin to carb ratio is 1 to 12 (1 unit for every 12 grams of carbohydrates) If you are going to eat??? 6 to 18 gms of carbs take 1 unit(s) of insulin 19 to 30 gms of carbs take 2 unit(s) of insulin 31 to 42 gms of carbs take 3 unit(s) of insulin 43 to 54 gms of carbs take 4 unit(s) of insulin 55 to 66 gms of carbs take 5 unit(s) of insulin 67 to 78 gms of carbs take 6 unit(s) of insulin 79 to 90 gms of carbs take 7 unit(s) of insulin 91 to 102 gms of carbs take 8 unit(s) of insulin 103 to 114 gms of carbs take 9 unit(s) of insulin 115 to 126 gms of carbs take 10 unit(s) of insulin 127 to 138 gms of carbs take 11 unit(s) of insulin 139 to 150 gms of carbs take 12 unit(s) of insulin 151 to 162 gms of carbs take 13 unit(s) of insulin 163 to 174 gms of carbs take 14 unit(s) of insulin 175 to 186 gms of carbs take 15 unit(s) of insulin 187 to 198 gms of carbs take 16 unit(s) of insulin ADD the following dose if your blood glucose is over 150 at meal time based on an insulin sensitivity factor of 25 meaning 1 unit of insulin is estimated to decrease your BG by 25 points. Novolog custom Sensitive sliding scale for BG>150 based on ISF 1:25 Less than 70 EAT 15 grams of carbs 71 to 84 take -2 Less units 85 to 99 take -1 Less units 125 to 149 take No Extra Insulin 150 to 174 take +1 units 175 to 199 take +2 units 200 to 224 take +3 units 225 to 249 take +4 units 250 to 274 take +5 units 275 to 299 take +6 units 300 to 324 take +7 units 325 to 349 take +8 units 350 to 374 take +9 units 375 to 399 take +10 units 400 to 424 take +11 units Treatment of Low Blood Sugar (Hypoglycemia) If [...] day to have your insulin doses adjusted. [facility] [place] documented in this encounter Progress Notes * Rosie Diamond MD - 08/22/2016 10:00 AM EST Last visit 04/2016 Diabetes Outpatient Consult Date of Consultation: 08/22/2016 Consult Requested by: Dr. Juan Reason for Consultation: Kailey Hernandez is a 41 y.o. 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 Diabetes History: Kailey Hernandez has had diabetes Type 1 since age of 7 years. When initially diagnosed, she was extremely fatigued, had polyuria, weight loss, and polydypsia. She was followed by an blow down helper- Dr Hernandez in [place], [place]. She is here for establishment of care since she has moved to [facility]. Her last visit was the [...] her lantus by 20 % to total 25 units daily and added insulin for carbs at a ratio of 1:10 g and correct for BG > 150 based on ISF 1:25. She is back for reassessment of her progress on this new regimen. Interim history She feels well, A1C is down from 9.1 to 7.4 Current outpatient diabetes regimen: Medications: Basal: Lantus 25 u qd Bolus: Humalog I:C 1:8 g [...] dog Snack- (2 pm) Has crackers, cheese. Does not cover with humalog. Dinner ( 6p). Covers with humalog Bedtime- (8p) No humalog BG monitoring Fasting- 54-225 Average < 180 Before snack- 80-200 Before lunch- 90-200 Before snack- 107- 200 average 150-160 Before dinner- 100-300 Average 150-250 Bedtime- < 180 on average occasionally touches 200 Lows- 5-6 fasting lows over the past in the morning 50-60, not preceded by low bedtime BG Monitoring is done 6 times a day Most recent HA1c was done on 08/2016 and was 7.4% Typical exercise regimen : none Trouble with [...] Smokeless tobacco: Never Used ??? Alcohol use Not on file Family history: Neg for DM Vitals Vitals: 08/22/16 0951 BP: 121/74 Pulse: 93 Physical Exam: NAD, very pleasant, BMI-22.9, thin appearing woman, looks younger than stated age Fundoscopy- challenging, but can appreciate laser scars S1S2+ Lungs CTAB Abd soft NT/ND- area of induration in left lower quadrant. No LE edema Feet- absent monofilament and vibration sense upto lower chaidez. Pulses 2+ symmetric Labs: Results for KAILEY HERNANDEZ ( ) as of 08/22/2016 10:19 Ref. Range 08/22/2016 08:51 08/22/2016 09:06 Hemoglobin A1C Latest Ref Range: 4.3 - 5.6 % 7.4 (H) Est Avg Gluc Latest Units: mg/dL 166 Chol, Total Latest Ref Range: <=239 mg/dL 129 HDL Latest Ref Range: >=40 mg/dL 55 Chol/HDL Ratio Latest Units: ratio 2.3 Triglycerides Latest Ref Range: <=199 mg/dL 56 LDL Cholesterol Latest Ref Range: <=190 mg/dL 63 Lipid Interpretation Unknown See Note U Albumin Conc, Random Latest Units: mg/L 12.4 U Creatinine Latest Units: mg/dL 75 Assessment: Patient is a 41 y.o. years old female with PMH significant for DMT1 (Last A1C of 7.4) who presents for diabetes management. Diabetes suboptimally controlled and complicated by hypoglycemia unawareness. Kailey is currently doing very well with her current regimen. She has brittle DM, and swings from low to high BG. Her recent numbers have shown primarily fasting hypoglycemia 5-6 times per month whichI would like to reduce. Kailey has not been giving herself insulin for carbs, and only been using correction because she is afraid of lows, with the result that her regimen is skewed with lantus 25 units and only 6-7 units of short acting everyday. 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 We agreed today that we will make her regimen more balanced, with reduction of lantus from 25-> 20 units to avoid fasting lows and reintroduce concept of insulin for carbs, will start with 1:12 g carb ratio. She was advised to titrate this as neceassry based on her 2h post prandial BG. If she has lows < 90, to cut back on premeal carb ratio. Her current correction sliding scale of 1:25 works when it is implemented so i will leave that the same. Plan: 1. Lantus reduce from 25-> 20 units q7 AM . Goal BG 90-150. 2. Meal-associated Novolog 1unit: 12 gm carb ratio for each meal) 3. Novolog custom Sensitive sliding scale for BG>150 based on ISF 1:25. If she fails to have good control with carb counting, will switch to fixed dose insulin for meals and continue SS 4. A1C at goal, RTC in 6 months 4. Pt to email me BG log in 4 weeks, RTC in 4 months shelter diabetes care: Medications - Outpatient treatment regimen recommendations pending based on the hospital course. Monitoring - continue BG tid ac & hs Diet - low fat/low carb diet Exercise - weight-bearing exercise 30 min/day, as tolerated Thank you for the consult D/w Dr Ann, this was a resident only encounter Rosie Diamond MD Endocrine Fellow Pager- [phone] Insulin Discharge Instructions . Instructions for Lantus Insulin (LONG ACTING) 1. Inject LANTUS 20 units insulin every 7 am. Check blood glucose (BG) before breakfast 2. If the blood glucose before breakfast is under 90 for two days in a row, subtract TWO units of insulin from the next LANTUS dose. This lower dose becomes your new dose, continue to decrease as needed. Instructions for Mealtime Novolog (or Humalog) Insulin This is the rapid-acting insulin, used at mealtime to prevent a high BG after you eat. Check your BG before each meal. 1. If your BG is 100 or higher, inject Novolog right before eating. 2. If your BG is 80 - 100, inject Novolog right after eating. 3. If your BG is lower than 80, or you have symptoms of a low BG, treat the low BG first, then eat your meal and take the Novolog after eating. 4. Injectnovolog by pen for breakfast, for lunch and for dinner based on a 1 unit per every 12 gramcarbohydrate insulin to carbohydrate ratio. Working with Insulin to Carb Ratios Your insulin to carb ratio is 1 to 12 (1 unit for every 12 grams of carbohydrates) If you are going to eat??? 6 to 18 gms of carbs take 1 unit(s) of insulin 19 to 30 gms of carbs take 2 unit(s) of insulin 31 to 42 gms of carbs take 3 unit(s) of insulin 43 to 54 gms of carbs take 4 unit(s) of insulin 55 to 66 gms of carbs take 5 unit(s) of insulin 67 to 78 gms of carbs take 6 unit(s) of insulin 79 to 90 gms of carbs take 7 unit(s) of insulin 91 to 102 gms of carbs take 8 unit(s) of insulin 103 to 114 gms of carbs take 9 unit(s) of insulin 115 to 126 gms of carbs take 10 unit(s) of insulin 127 to 138 gms of carbs take 11 unit(s) of insulin 139 to 150 gms of carbs take 12 unit(s) of insulin 151 to 162 gms of carbs take 13 unit(s) of insulin 163 to 174 gms of carbs take 14 unit(s) of insulin 175 to 186 gms of carbs take 15 unit(s) of insulin 187 to 198 gms of carbs take 16 unit(s) of insulin ADD the following dose if your blood glucose is over 150 at meal time based on an insulin sensitivity factor of 25 meaning 1 unit of insulin is estimated to decrease your BG by 25 points. Novolog custom Sensitive sliding scale for BG>150 based on ISF 1:25 Less than 70 EAT 15 grams of carbs 71 to 84 take -2 Less units 85 to 99 take -1 Less units 125 to 149 take No Extra Insulin 150 to 174 take +1 units 175 to 199 take +2 units 200 to 224 take +3 units 225 to 249 take +4 units 250 to 274 take +5 units 275 to 299 take +6 units 300 to 324 take +7 units 325 to 349 take +8 units 350 to 374 take +9 units 375 to 399 take +10 units 400 to 424 take +11 units Treatment of Low Blood Sugar (Hypoglycemia) If your BG is lower than 80, you are likely to feel shaky, sweaty and lightheaded. This is a signalthat your body needs more sugar. Quickly eat or drink a small serving of something sweet, such as: 4 ounces fruit juice or regular (not diet) soda 6 [employer] small box of raisins 4 glucose tablets [...] day to have your insulin doses adjusted. [facility] [place] office * Carlos Ann MD - 08/22/2016 10:00 AM EST I reviewed this patient with Dr diamond . I reviewed the price portions of the history and physical exam, and reviewed pertinent lab data.I was involved in all medical decision making and agree with this plan. documented in this encounter Plan of Treatment Not on file documented as of this encounter Visit Diagnoses Diagnosis Pre-existing type 1 diabetes mellitus in childbirth Diabetes mellitus of mother, with delivery documented in this encounter Care Teams Holistic Nutritionist Relationship Specialty Start Date End Date Felisha Juan APRN [address] [place] [address] PCP - General Family Medicine 10/29/15 01/29/22 documented as of this encounter
--- OUTSIDE RECORDS SUMMARY | 2024-04-01 00:35 | XMS_ITS | Encounter Summary ---
Author Organization [facility] Address [facility] [place] [address] Care Team Providers Care Color Straining Bag Washer Name Role Phone Carey Hall MD Primary Care Provider [phone] Reason for Visit * Reason Comments Diabetic Foot Care Encounter Details Date Type Department Care Team ([facility] st Contact Info) Description 02/23/2012 4:00 PM EDT Office Visit Podiatry at [address] [place] [address] Ritesh Mackey Jr., DPM [address] [place] [address] [place] [address] Other specified disease of nail (Primary Dx) Social History Tobacco Use Types Packs/Day Years [...] - Inhaled Oxygen Concentration - - Weight 60.8 kg (134 lb) 02/23/2012 3:53 PM EDT Height 162.6 cm (5' 4) 02/23/2012 3:53 PM EDT Body Mass Index 23 02/23/2012 3:53 PM EDT documented in this encounter Patient Instructions * Patient Instructions* Ritesh Mackey Jr., DPM - 02/23/2012 4:13 PM EDT Call or return to clinic prn if these symptoms worsen or fail to improve as anticipated. documented in this encounter Progress Notes * Ritesh Mackey Jr., DPM - 02/23/2012 4:13 PM EDT Age: 36 years Subjective: She presents to clinic for care of thickened nails. She is unable to care for these herown. No new complaints Ojective: Thickened dystrophic nails 1-5 bilaterally. Neurovascular palpable pulses and intact sensation. Assesment: Onychauxis Plan: Nails were reduced without incident. She does not meet Medicare criteria for coverage of thisservice-even though she has diabetes her pulses are palpable and sensation is intact. She will return in 12 weeks. ETOH prep done pre and post. Ritesh Mackey Jr., DPM documented in this encounter Miscellaneous Notes * Miscellaneous - Carrington, Digital Operations Analyst - 03/05/2012 10:46 AM EDT documented in this encounter Plan of Treatment Not on file documented as of this encounter Visit Diagnoses Diagnosis Other specified disease of nail- Primary documented in this encounter Care Teams Color Straining Bag Washer Relationship Specialty Start Date End Date Carey Hall MD [address] [place] [address] PCP - General 06/25/10 10/28/15 documented as of this encounter
--- OUTSIDE RECORDS SUMMARY | 2024-04-01 00:35 | XMS_ITS | Encounter Summary ---
Author Organization [facility] Address [address] [place] [address] Care Team Providers Care Tray Drier Operator Name Role Phone Unknown, Provider Primary Care Provider Encounter Details Date Type Department Care Team (Late st Contact Info) Description 12/04/2021 Lab Requisition [facility] Pathology & Laboratory Medicine - [facility] [address] [place] [address] Outr Resulting Lab, Provider Social History Tobacco Use Types Packs/Day Years Used Date Smoking Tobacco: Never Assessed Sex and Gender Information Value Date Recorded Sex Assigned at Not on file Gender Identity Not on file Sexual Orientation Not on file documented as of this encounter Plan of Treatment Not on file documented as of this encounter Procedures Procedure Name Priority Date/Time Associated Diagnosis Comments HIV 1/2 ANTIGEN AND ANTIBODY, 4TH GENERATION Routine 12/04/2021 11:00 EDT documented in this encounter Results * HIV 1/2 ANTIGEN AND ANTIBODY, 4TH GENERATION (12/04/2021 11:00 EDT) HIV 1 and 2 Antibody/p24 Antigen, 4th Generation Negative Negative 12/05/2021 10:51 EDT [facility] Comment:If acute HIV-1 infec tion is suspected in a high risk patient, submit plasma specimen for HIV-1 RNA quantitation test. Blood VENOUS BLOOD / Unknown 12/04/2021 11:00 EDT 12/04/2021 22:05 EDT Narrative [facility] - 12/05/2021 10:51 EDT Fourth Generation assay performed on the Siemens Centaur XPT. Provider Outr Resulting Lab IMMUNOLOGY A ND SEROLOGY ORDERABLES [facility] [address] [place] [address] documented in this encounter Visit Diagnoses Not on filedocumented in this encounter Care Teams Tray Drier Operator Relationship Specialty Start Date End Date Unknown, Provider, PCP - General 01/18/16 documented as of this encounter
--- OUTSIDE RECORDS SUMMARY | 2024-04-01 00:35 | XMS_ITS | Encounter Summary ---
Author Organization [facility] Address [address] [place] [address] Care Team Providers Care Day Care Teacher Name Role Phone Unknown, Provider Primary Care Provider Encounter Details Date Type Department Care Team (Late st Contact Info) Description 12/04/2021 Lab Requisition [facility] Pathology & Laboratory Medicine - [facility] [address] [place] [address] Outr Resulting Lab, Provider Social History Tobacco [...] Procedure Name Priority Date/Time Associated Diagnosis Comments HEPATITIS C AB W REFLEX TO HCV RNA BY PCR Routine 12/04/2021 11:00 EDT documented in this encounter Results * HEPATITIS C AB W REFLEX TO HCV RNA BY PCR (12/04/2021 11:00 EDT) Hep C Antibody Negative Negative 12/05/2021 11:10 EDT [facility] Blood VENOUS BLOOD / Unknown 12/04/2021 11:00 EDT 12/04/2021 21:57 EDT Provider Outr Resulting Lab CHEMISTRY & BLOOD GAS ORDERABLES [facility] [address] [place] [address] documented in this encounter Visit Diagnoses Not on filedocumented in this encounter Care Teams Day Care Teacher Relationship Specialty Start Date End Date Unknown, Provider, PCP - General 01/18/16 documented as of this encounter
--- OUTSIDE RECORDS SUMMARY | 2024-04-01 00:35 | XMS_ITS | Encounter Summary ---
Author Organization [facility] Address [facility] [place] [address] Care Team Providers Care Photographic Supervisor Name Role Phone Carey Hall MD Primary Care Provider [phone] Reason for Visit * Reason Comments Diabetic Foot Care Encounter Details Date Type Department Care Team ([facility] Contact Info) Description 07/09/2012 11:15 AM EST Office Visit Podiatry at [address] [place] [address] Ritesh Mackey Jr., [facility] [address] [facility] [address] Other specified disease of nail; DM w/o complication type II Social History [...] - - Weight 60.8 kg (134 lb) 07/09/2012 11:15 AM EST Height 162.6 cm (5' 4) 07/09/2012 11:15 AM EST Body Mass Index 23 07/09/2012 11:15 AM EST documented in this encounter Progress Notes * Ritesh Mackey Jr., MJ - 07/09/2012 11:33 AM EST Age: 37 years Subjective: She presents to clinic for care of thickened nails. She is unable to care for these herown. No new complaints Ojective: Thickened dystrophic nails 1-5 bilaterally. Assesment: Onychauxis Plan: Nails were trimmed without incident. She does not meet Medicare criteria for coverage of thisservice-even though she has diabetes her pulses are palpable and sensation is intact. She will return in 12 weeks. ETOH prep done pre and post. Ritesh Mackey Jr., DPM documented in this encounter Plan of Treatment Not on file documented as of this encounter Visit Diagnoses Diagnosis Other specified disease of nail Type II or unspecified type diabetes mellitus without mention of complication, not stated as uncontrolled documented in this encounter Care Teams Photographic Supervisor Relationship Specialty Start Date End Date Carey Hall MD [address] [place] [address] PCP - General 06/25/10 10/28/15 documented as of this encounter
--- OUTSIDE RECORDS SUMMARY | 2024-04-01 00:35 | XMS_ITS | Referral Summary ---
Author Organization [facility] Address [address] [place] [address] Care Team Providers Care Lead Project Manager Name Role Phone Unknown, Provider Primary Care Provider [phone] Social History Tobacco Use Types Packs/Day Years Used Date Smoking Tobacco: Never Assessed Sex and Gender Information Value Date Recorded Sex Assigned at Not on file Gender Identity Not on file Sexual Orientation Not on file Plan of Treatment Not on file Procedures Procedure Name Priority Date/Time Associated Diagnosis Comments HEPATITIS C AB W REFLEX TO HCV RNA BY PCR Routine 12/04/2021 11:00 EDT from Last 3 Months or Most Recently Relevant to Health Maintenance Results * HEPATITIS C AB W REFLEX TO HCV RNA BY PCR (12/04/2021 11:00 EDT) Hep C Antibody Negative Negative 12/05/2021 11:10 EDT [facility] Blood VENOUS BLOOD / Unknown 12/04/2021 11:00 EDT 12/04/2021 21:57 EDT Provider Outr Resulting Lab CHEMISTRY & BLOOD GAS ORDERABLES [facility] [address] [place] [address] from Last 3 Months or Most Recently Relevant to Health Maintenance Care Teams Lead Project Manager Relationship Specialty Start Date End Date Unknown, Provider, PCP - General 01/18/16
--- OUTSIDE RECORDS SUMMARY | 2024-04-01 00:35 | XMS_ITS | Encounter Summary ---
Author Organization [facility] Address [address] [place] [address] Care Team Providers Care Survival Specialist Name Role Phone Unknown, Provider Primary Care Provider Encounter Details Date Type Department Care Team (Late st Contact Info) Description 01/17/2016 Results Only [facility] [phone] Felisha Mckinnon NP [address] [place] [address] Social History Tobacco Use Types Packs/Day Years Used Date Smoking Tobacco: Never Assessed Sex and Gender Information Value Date Recorded Sex Assigned at Not on file Gender Identity Not on file Sexual Orientation Not on file documented as of this encounter Plan of Treatment Not on file documented as of this encounter Procedures Procedure Name Priority Date/Time Associated Diagnosis Comments PAP TEST- RESULT ONLY Routine 01/17/2016 0:00 EDT documented in this encounter Results * PAP TEST- RESULT ONLY (01/17/2016 0:00 EDT) Pathology Report: CYTOPATHOLOGY REPORT Reports generated via electronic interface contain original data; however they are lacking the format of the original report. Caution should be taken when reading/interpreti ng unformatted reports. Name: ? KAILEY HERNANDEZ ? Accession #: ? [id number] ? : ? 1975 (Age: 40) ??F ?Collect Date: ? 01/17/2016 ? Location: ? [facility] ? Receive Date: ? 01/18/2016 ? Provider: FELISHA MCKINNON NP Copy to: ? Final Report SPECIMEN ADEQUACY ? Satisfactory for Evaluation - transformation zone component absent GENERAL CATEGORIZATION ? Negative for Intraepithelial Lesion or Malignancy ?? Menstrual/Pregnanc y Status: ??Spotting: vaginal Previous Gynecologic Pathology: Adenocarcinoma: cervical CA Treatment History: Hysterectomy: HX Specimen/Source: ??Pap Test, Endocervix, ThinPrep Imaging System with manual evaluation Document reviewed and electronically signed by: ? EVANGELISTA Rodriguez(ASCP) ? Report ??Date: 01/30/2016 12:03 HPV with Pap Test ? Date Ordered: ? 01/30/2016 ? Status: ?? Signed Out ?Date Complete: ? 02/01/2016 ? By: ??System Interface ? Date Reported: ? 02/01/2016 ? Interpretation RESULT: Negative for HPV. No E6 or E7 mRNA is detected from HPV types 16,18,31,33,35, 39,45,51,52,56,58, 59,66, and 68 by station cleaning porter mediated amplification. Comments Document reviewed and electronically signed by: ? System Interface ? Report date: 02/01/2016 By the signature above, the attending physician certifies that he/she has personally conducted a gross and/or microscopic examination of the described specimens and rendered or confirmed the above diagnosis. End of Report [facility] 01/17/2016 01/18/2016 Felisha Koshowski AUTO DAMAGE ESTIMATOR PATHOLOGY ORDERABLES [facility] [address] [place] [address] documented in this encounter Visit Diagnoses Not on filedocumented in this encounter Care Teams Survival Specialist Relationship Specialty Start Date End Date Unknown, Provider, PCP - General 01/18/16 documented as of this encounter
--- OUTSIDE RECORDS SUMMARY | 2024-04-01 00:35 | XMS_ITS | Encounter Summary ---
Author Organization Formerly [facility] Address [facility] [place] [address] Care Team Providers Care Medical Research Assistant Name Role Phone Carey Hall MD Primary Care Provider Encounter Details Date Type Department Care Team (Late st Contact Info) Description 02/07/2014 2:00 PM EDT Office Visit Podiatry at [address] [place] [address] Ritesh Mackey Jr., [address] [place] [address] Dermatophytosis of nail; Pain in limb; DM w/o complication type II Social History Tobacco Use Types Packs/Day Years Used Date Smoking Tobacco: Never Smokeless Tobacco: Never Sex and Gender Information Value Date Recorded Sex Assigned at Not on file Gender Identity Not on file Sexual Orientation Not on file documented as of this encounter Progress Notes * Ritesh Mackey Jr., MJ - 02/07/2014 2:09 PM EDT Subjective: She presents to the clinic for care of severely thickened dsytrophic toenails. She complains of a significant amount of pain due to the thickness of the nails. Past Medical History: + Diabetes, Type II, Peripheral vascular disease Objectives: Thickened dystrophic toenails 1-5 bilateral. Each of the dystrophic nails are painful on palpation. Nails display clinical signs of orfldcs-skzhziiomv-eipdwe in appearance, thickened greater than 2mm, Brittle with loosening off of the nail bed. No signs of infection. Assessment: Onychomycosis Plan: Dystrophic nails were debrided without incident. Prior to debridement, nails prepped with etoh and prepped with etoh post debridement. Mechanical debridement was carried down to the point wherefurther debridement would have caused bleeding. She will follow up in 10 weeks. Nails are now clearly mycotic and now clearly painful. She has demarcated area on anterior ankle bilateral which is pinkish. It looks like a tongue of shoe irritation. IF it worsens she is to seek immediate attention. documented in this encounter Plan of Treatment Not on file documented as of this encounter Visit Diagnoses Diagnosis Dermatophytosis of nail Pain in limb DM w/o complication type II Type II or unspecified type diabetes mellitus without mention of complication, not stated as uncontrolled documented in this encounter Care Teams Medical Research Assistant Relationship Specialty Start Date End Date Carey Hall MD [address] [place] [address] PCP - General 06/25/10 10/28/15 documented as of this encounter
--- OUTSIDE RECORDS SUMMARY | 2024-04-01 00:35 | XMS_ITS | Encounter Summary ---
Author Organization [facility] Address [facility] [place] [address] Care Team Providers Care Machine Erector Name Role Phone Carey Hall MD Primary Care Provider [phone] Reason for Visit * Reason Comments Diabetic Foot Care Encounter Details Date Type Department Care Team ([facility] st Contact Info) Description 08/15/2013 9:30 AM EST Office Visit Podiatry at [address] [place] [address] Ritesh Mackey Jr., [facility] [address] [facility] [place] [address] Dermatophytosis of nail (Primary Dx); Pain in limb; Type II or unspecified type diabetes mellitus without mention of complication, not stated as uncontrolled Social History Tobacco Use Types Packs/Day Years [...] - Inhaled Oxygen Concentration - - Weight 61.7 kg (136 lb) 08/15/2013 9:35 AM EST Height 162.6 cm (5' 4) 08/15/2013 9:35 AM EST Body Mass Index 23.34 08/15/2013 9:35 AM EST documented in this encounter Progress Notes * Ritesh Mackey Jr., DPTej - 08/15/2013 9:50 AM EST Subjective: She presents to the clinic for care of severely thickened dsytrophic toenails. She complains of a significant amount of pain due to the thickness of the nails. Past Medical History: + Diabetes, Type II, Peripheral vascular disease Objectives: Thickened dystrophic toenails 1-5 bilateral. Each of the dystrophic nails are painful on palpation. Nails display clinical signs of ryfgppx-wmoqyfucwh-yashdx in appearance, thickened greater than 2mm, Brittle with loosening off of the nail bed. No signs of infection. Neurovascular status: Unchanged. Assessment: Onychomycosis Plan: Dystrophic nails were debrided without incident. Prior to debridement, nails prepped with etoh and prepped with etoh post debridement. Mechanical debridement was carried down to the point wherefurther debridement would have caused bleeding. She will follow up in 10 weeks. Nails are now clearly mycotic and now clearly painful. This has been pretty dramatic change agent past couple of months documented in this encounter Plan of Treatment Not on file documented as of this encounter Visit Diagnoses Diagnosis Dermatophytosis of nail- Primary Pain in limb Type II or unspecified type diabetes mellitus without mention of complication, not stated as uncontrolled documented in this encounter Care Teams Machine Erector Relationship Specialty Start Date End Date Carey Hall MD [address] [address] PCP - General 06/25/10 10/28/15 documented as of this encounter
--- OUTSIDE RECORDS SUMMARY | 2024-04-01 00:35 | XMS_ITS | Encounter Summary ---
Author Organization [facility] Address [facility] [place] [address] Care Team Providers Care Continuous Mining Machine Coal Miner Name Role Phone Carey Hall MD Primary Care Provider [phone] Reason for Visit * Reason Comments Routine Foot Care Encounter Details Date Type Department Care Team (Late st Contact Info) Description 04/11/2011 10:45 AM EDT Office Visit Podiatry [address] [place] [phone] Ritesh Mackey Jr., DPM [address] [facility] [place] [address] Other specified disease of nail (Primary Dx) Social History Tobacco Use Types Packs/Day Years Used Date Smoking Tobacco: Never Sex and Gender Information Value Date Recorded Sex Assigned at Not on file Gender Identity Not on file Sexual Orientation Not on file documented as of this encounter Patient Instructions * Patient Instructions* Ritesh Mackey Jr., DPM - 04/11/2011 10:48 AM EDT It is important to monitor your feet daily. You should inspect them for cuts, blisters or sores. Ifyou see anything usual, please contact our office. documented in this encounter Progress Notes * Ritesh Mackey Jr., DPM - 04/11/2011 10:48 AM EDT Age: 36 years Subjective: She presents [...] intact. She will return in 12 weeks. Ritesh Maceky Jr. DPTej documented in this encounter Miscellaneous Notes * Miscellaneous - Carrington, Wood Veneer Taper - 05/01/2011 3:53 PM EDT documented in this encounter Plan of Treatment Not on file documented as of this encounter Visit Diagnoses Diagnosis Other specified disease of nail- Primary documented in this encounter Care Teams Continuous Mining Machine Coal Miner Relationship Specialty Start Date End Date Carey Hall MD [address] [place] [address] PCP - General 06/25/10 10/28/15 documented as of this encounter
--- OUTSIDE RECORDS SUMMARY | 2024-04-01 00:35 | XMS_ITS | Clinical Summary ---
Author Organization [facility] Address [address] [place] [address] Care Team Providers Care Elder Assistant Name Role Phone Unknown, Provider Primary Care Provider Social History Tobacco Use Types Packs/Day Years Used Date Smoking Tobacco: Never Assessed Sex and Gender Information Value Date Recorded Sex Assigned at Not on file Gender Identity Not on file Sexual Orientation Not on file Plan of Treatment Health Maintenance Due Date Last Done Comments Hepatitis B Vaccine (1 of 3 - 19+ 3-dose series) 03/25 COVID-19 Vaccine ( season) 2023 Hepatitis C Screen Completed 12/04/2021 Procedures Procedure Name Priority Date/Time Associated Diagnosis Comments HEPATITIS C AB W REFLEX TO HCV RNA BY PCR Routine 12/04/2021 11:00 EDT from Last 3 Months or Most Recently Relevant to Health Maintenance Results * HEPATITIS C AB W REFLEX TO HCV RNA BY PCR (12/04/2021 11:00 EDT) Hep C Antibody Negative Negative 12/05/2021 11:10 EDT [facility] Blood VENOUS BLOOD / Unknown 12/04/2021 11:00 EDT 12/04/2021 21:57 EDT Provider Outr Resulting Lab CHEMISTRY & BLOOD GAS ORDERABLES [facility] [address] [place] [address] from Last 3 Months or Most Recently Relevant to Health Maintenance Care Teams Elder Assistant Relationship Specialty Start Date End Date Unknown, Provider, PCP - General 01/18/16
--- OUTSIDE RECORDS SUMMARY | 2024-04-01 00:35 | XMS_ITS | Encounter Summary ---
Author Organization Formerly [facility] Address [facility] [place] [address] Care Team Providers Care Warehouse Pricing And Inventory Clerk Name Role Phone Carey Hall MD Primary Care Provider [phone] Encounter Details Date Type Department Care Team (Late st Contact Info) Description 08/08/2010 11:00 AM EST Office Visit Podiatry [address] [place] [address] Ritesh Mackey Jr., [facility] [address] [facility] [place] [address] Social History Tobacco Use Types Packs/Day Years Used Date Smoking Tobacco: Never Assessed Sex and Gender Information Value Date Recorded Sex Assigned at Not on file Gender Identity Not on file Sexual Orientation Not on file documented as of this encounter Plan of Treatment Not on file documented as of this encounter Visit Diagnoses Not on filedocumented in this encounter Care Teams Warehouse Pricing And Inventory Clerk Relationship Specialty Start Date End Date Carey Hall MD [address] [place] [address] PCP - General 06/25/10 10/28/15 documented as of this encounter
--- OUTSIDE RECORDS SUMMARY | 2024-04-01 00:35 | XMS_ITS | Encounter Summary ---
Author Organization [facility] Address [facility] [place] [address] Care Team Providers Care Cooperative Education Director Name Role Phone Carey Hall MD Primary Care Provider [phone] Reason for Visit * Reason Comments Nail Problem Encounter Details Date Type Department Care Team ([facility] Contact Info) Description 09/19/2011 10:15 AM EST Office Visit Podiatry at [address] [place] [address] Ritesh Mackey Jr., DPM [address] [place] [address] [place] [address] Other specified disease of nail (Primary Dx) [...] - - Weight 60.8 kg (134 lb) 09/19/2011 9:57 AM EST Height 162.6 cm (5' 4) 09/19/2011 9:57 AM EST Body Mass Index 23 09/19/2011 9:57 AM EST documented in this encounter Patient Instructions * Patient Instructions* Ritesh Mackey Jr., DPM - 09/19/2011 10:11 AM EST It is important to monitor your feet daily. You should inspect them for cuts, blisters or sores. Ifyou see anything usual, please contact our office. documented in this encounter Progress Notes * Ritesh Mackey Jr., DPM - 09/19/2011 10:10 AM EST Age: 36 years Subjective: She presents to [...] She will return in 12 weeks. Ritesh Mackey Jr., DPM documented in this encounter Plan of Treatment Not on file documented as of this encounter Visit Diagnoses Diagnosis Other specified disease of nail- Primary documented in this encounter Care Teams Cooperative Education Director Relationship Specialty Start Date End Date Carey Hall MD [address] [place] [address] PCP - General 06/25/10 10/28/15 documented as of this encounter
--- OUTSIDE RECORDS SUMMARY | 2024-04-01 00:35 | XMS_ITS | Encounter Summary ---
Author Organization [facility] Address [facility] [place] [address] Care Team Providers Care Neon Glass Blower Name Role Phone Carey Hall MD Primary Care Provider [phone] Reason for Visit * Reason Comments Diabetic Foot Care Encounter Details Date Type Department Care Team ([facility] st Contact Info) Description 11/05/2012 2:45 PM EDT Office Visit Podiatry at [address] [place] [address] Ritesh Mackey Jr., [facility] [address] [place] [address] [place] [address] Other specified disease of nail (Primary Dx) [...] - Inhaled Oxygen Concentration - - Weight 59 kg (130 lb) 11/05/2012 2:48 PM EDT Height 162.6 cm (5' 4) 11/05/2012 2:48 PM EDT Body Mass Index 22.31 11/05/2012 2:48 PM EDT documented in this encounter Progress Notes * Ritesh Mackey Jr., MJ - 11/05/2012 2:59 PM EDT Age: 37 years Subjective: She presents to [...] Primary documented in this encounter Care Teams Neon Glass Blower Relationship Specialty Start Date End Date Carey Hall MD [address] [place] [address] PCP - General 06/25/10 10/28/15 documented as of this encounter
--- NOTE | 2024-04-01 07:15 | DI.MRI_ITS ---
Exam(s) MR CERVICAL SPINE WO EXAM: MR CERVICAL SPINE WO CLINICAL HISTORY: abnormal C spine CT, congenital fusion, neck pain, lt arm pain, Q76.49, M54 TECHNIQUE: Multiplanar multisequence MRI of the cervical spine was performed without intravenous con trast. COMPARISON: CT CT UPPER EXTREMITY LT CTA from 02/15/2024 FINDINGS: CERVICOMEDULLARY JUNCTION: Intact with no evidence of cerebellar tonsillar ectopia. No obvious abnor mality of the odontoid process. No evidence of Chiari 1 malformation. OSSEOUS:There is reversal of the normal curvature of the cervical spine. There are no cervical fract ures evident. No significant osseous lesions in the cervical vertebrae. Odontoid unremarkable. CERVICAL SPINAL CORD: The lower aspect of the field of view of the sagittal images there is significa nt signal abnormality evident throughout the spinal cord at and below the T3 level. Either diffuse m yelitis or syringomyelia. Difficult to assess as this is below the field of view of axial images on this study and this abnormality does continue beyond the field of view of this cervical MRI study (be low T3). Therefore further MRI imaging of the thoracic and lumbar spines are required. INDIVIDUAL LEVELS: C2-3: Mild central subligamentous annular bulging but without a distinct disc herniation. However, t here is mild central spinal canal stenosis at this level. AP measurement of the canal is 7 mm. Face t joints appear unremarkable bilaterally and there is no foraminal stenosis on either side. C3-4: Normal disc height and signal. No disc herniation. Central canal dimensions are lower normal at this level.. There is no significant facet arthropathy at this level. No significant foraminal s tenosis evident. C4-5: There is decreased disc height at this level with preserved hydration signal. This may be deve lopmental as there appears to be an element of anterior fusion of the C4 and C5 vertebral bodies resu lting in a diminutive disc space. There is no disc herniation at this level. Central canal dimensio ns are normal (10 mm). There is no significant facet arthropathy nor significant foraminal stenosis on either side at this level. C5-6: Normal disc height. Posteriorly there is subligamentous central and bilateral paracentral joanna lar bulging which flattens the thecal sac and slightly indents the anterior aspect of the spinal cord . There is central spinal canal stenosis at this level with AP measurement of the canal 6.5 mm. The re is no significant facet arthropathy at this level. There is no significant foraminal stenosis on either side at this level. C6-7: Normal disc height. There is mild subligamentous annular bulging . This effaces the anterior thecal sac and spinal cord resulting in an element of central canal stenosis. AP measurement of the canal at this level is 6 mm. Facet joints appear unremarkable.. There is no obvious foraminal steno sis on either side at this level. C7-T1: No disc herniation nor central canal stenosis. No facet arthropathy.No foraminal stenosis. IMPRESSION: 1. 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 There are disc findings at C5-6 and C6-7 levels as de scribed above. There is an element of central canal stenosis at C2-3, C5-6, and C6-7 levels, as desc ribed above. There is no foraminal stenosis at any level in the cervical spinal canal and there is n o significant facet arthropathy. 2. There is significant finding in the partially visualized thoracic spinal cord at and below T3 leve l as seen on the peripheral aspect of the field of view of this study. There is significant signal a bnormality evident throughout the thoracic spinal cord at this level and below this level (beyond the field of view of this study). Either diffuse myelitis of the cord or possible syringomyelia. There is also an additional bright spot in the spinal cord at T4 level. Recommend additional MRI study of the thoracic and lumbar spine. The entire spine requires MRI study in this case due to this signifi cant incidental thoracic spinal cord abnormality which is partially visualized on this cervical MRI s fly.. DATA REPOSITORY:
== END 2024-04-01 00:45 ==
LOC: DI 00:25
PROVIDERS: PCP Nurse Practitioner; Visit Provider Nurse Practitioner
DX: Q76.49 Other congenital malformations of spine, not associated with scoliosis (principal); M54.2 Cervicalgia
CPT/HCPCS: 72141

== ENCOUNTER 2024-04-13 02:18 | Outpatient (CLI) | payer MEDICARE, MEDICAID, SELFPAY ==
--- OUTSIDE RECORDS SUMMARY | 2024-04-08 00:38 | XMS_ITS | Data Portability ---
Author Organization [place] - [facility] [place] [address] [place] [address] Care Team Providers Care Infrastructure Architect Name Role Phone NAVIN PITTMAN Primary Care Provider FRANCIS RING Music Researcher ROCK RAMIREZ Scale Tank Operator [facility] ENDOCRINOLOG[facility] Endocrinologis t [facility] Trade Marker Assessment Encounter Date Assessment Date Assessment LastModified by Organization Details LastModified Time 09/25/2023 09/25/2023 Kailey's chronic medical issues appear stable. Unfortunately we are unable to download her CGM data today. We will try to get this next week. No changes to medication management were made today. She has cardiology follow-up this summer. She has been referred to [facility] for consideration of left ear surgery [...] [address] [facility], [address] [facility], [place], [address], 11:46:21 metoprolol succinate ER 25 mg tablet,exte nded release 24 hr 2023 024 [address] [facility], [address] [place], [address], 13:59:01 Patient TargetsNo targets recorded. Patient Instructions Encounter Date Encounter Id Patient Instructions Last Modified By Organization Details Last Modified Time 09/25/2023 [id number] Kailey Shanks I will get in touch with Lucia so she can download your blood sugars next week. [email or web address] Not available 09/25/2023 10:01:34 12/22/2023 [id number] Kailey - slowly titrate your basaglar by [...] ser 342 mg/dL 74-106 high Not Available [facility] [address], [place], [address], 03/04/2024 03:12:18 06/11/2006/11/2023 creat inine , urine [...] 10_3/ uL 4.4-10 .8 normal Not Available [address] [place], [address] 07/05/2023 12:04:31 07/05/20 23 07/05/2023 COMPL ETE BLOOD COUNT W/DIF F RBC 4.52 10_6/ uL 3.93-5 .22 normal Not Available [address] [place], [address] 07/05/2023 12:04:31 07/05/20 23 07/05/2023 COMPL ETE BLOOD COUNT W/DIF F HGB 13.9 g/dL 11.2-1 5.7 normal Not Available [address] [place], [address] 07/05/2023 12:04:31 07/05/20 23 07/05/2023 COMPL ETE BLOOD COUNT W/DIF F HCT 40.3 % 36.0-4 6.0 normal Not Available [address] [place], [address] 07/05/2023 12:04:31 07/05/20 23 07/05/2023 COMPL ETE BLOOD COUNT W/DIF F MCV 89 fL 80-95 normal Not Available [address] [place], [address] 07/05/2023 12:04:31 07/05/20 23 07/05/2023 COMPL ETE BLOOD COUNT W/DIF F MCH 30.8 pg 27.0-3 3.0 normal Not Available [address] [place], [address] 07/05/2023 12:04:31 07/05/20 23 07/05/2023 COMPL ETE BLOOD COUNT W/DIF F MCHC 34.5 % 32.0-3 6.0 normal Not Available [address] [place], [address] 07/05/2023 12:04:31 07/05/20 23 07/05/2023 COMPL ETE BLOOD COUNT W/DIF F RDW 11.9 % 11.7-1 4.6 normal Not Available [address] [place], [address] 07/05/2023 12:04:31 07/05/20 23 07/05/2023 COMPL ETE BLOOD COUNT W/DIF F platelet count 204 10_3/ uL 130-40 0 normal Not Available [address] [place], [address] 07/05/2023 12:04:31 07/05/20 23 07/05/2023 COMPL ETE BLOOD COUNT W/DIF F MPV 9.6 fL 8.0-11 .0 normal Not Available [address] [place], [address] 07/05/2023 12:04:31 07/05/20 23 07/05/2023 COMPL ETE BLOOD COUNT W/DIF F neutrophils % 54.7 Not Available [address] [place], [address] 07/05/2023 12:04:31 07/05/20 23 07/05/2023 COMPL ETE BLOOD COUNT W/DIF F lymphocytes % 33.7 Not Available [address] [place], [address] 07/05/2023 12:04:31 07/05/20 23 07/05/2023 COMPL ETE BLOOD COUNT W/DIF F monocytes % 9.3 Not Available [address] [place], [address] 07/05/2023 12:04:31 07/05/20 23 07/05/2023 COMPL ETE BLOOD COUNT W/DIF F eosinophils % 1.5 Not Available [address] [place], [address] 07/05/2023 12:04:31 07/05/20 23 07/05/2023 COMPL ETE BLOOD COUNT W/DIF F basophils % 0.5 Not Available [address] [place], [address] 07/05/2023 12:04:31 07/05/20 23 07/05/2023 COMPL ETE BLOOD COUNT W/DIF F immature grans % 0.3 Not Available [address] [place], [address] 07/05/2023 12:04:31 07/05/20 23 07/05/2023 COMPL ETE BLOOD COUNT W/DIF F nucleated RBC 0.0 % 0.0-0. 3 normal Not Available [address] [place], [address] 07/05/2023 12:04:31 07/05/20 23 07/05/2023 COMPL ETE BLOOD COUNT W/DIF F absolute neutrophil count 3.53 10_3/ uL 1.2-6. 7 normal Not Available [address] [place], [address] 07/05/2023 12:04:31 07/05/20 23 07/05/2023 COMPL ETE BLOOD COUNT W/DIF F absolute lymphocyte count 2.18 10_3/ uL 1.2-3. 4 normal Not Available [address] [place], [address] 07/05/2023 12:04:31 07/05/20 23 07/05/2023 COMPL ETE BLOOD COUNT W/DIF F absolute monocyte count 0.60 10_3/ uL 0.1-0. 8 normal Not Available [address] [place], [address] 07/05/2023 12:04:31 07/05/20 23 07/05/2023 COMPL ETE BLOOD COUNT W/DIF F absolute eosinophil count 0.10 10_3/ uL 0.0-0. 7 normal Not Available [address] [place], [address] 07/05/2023 12:04:31 07/05/20 23 07/05/2023 COMPL ETE BLOOD COUNT W/DIF F absolute basophil count 0.03 10_3/ uL 0.0-0. 2 normal Not Available [address] [place], [address] 07/05/2023 12:04:31 07/05/20 23 07/05/2023 NGOZI IA ammonia < 10 umol/ L 11-32 low Not Available [address] [place], [address] 07/05/2023 12:13:31 07/05/20 23 07/05/2023 PROTH ROMBI N TIME prothrombin time 10.6 sec 9.1-11 .1 normal Not Available [address] [place], [address] 07/05/2023 12:39:32 07/05/20 23 07/05/2023 PROTH ROMBI N TIME INR 1.1 0.9-1. 1 normal Recom celia d INR thera peuti c range s for orall y admin ister ed drugs are as follo ws: -Barry dard Inten sity 2.0 to 3.0 -High er Inten sity 3.0 to 4.5 Not Available [address] [place], [address] 07/05/2023 12:39:32 07/05/20 23 07/05/2023 D-DIM ER D-dimer 767 NG/ml feu <500 high *Lite ratur e suppo rts the exclu marysol of DVT and/o r PE with a resul t less than 500 ng/ml FEU with this metho d.* Not Available [address] [place], [address] 07/05/2023 12:39:32 07/05/20 23 07/05/2023 COMPR EHENS JES METAB OLIC PANEL calcium 9.2 mg/dL 8.5-10 .1 normal Not Available [address] [place], [address] 07/05/2023 12:41:33 07/05/20 23 07/05/2023 COMPR EHENS JES METAB OLIC PANEL glucose 289 mg/dL 74-106 high Not Available Kalpesh casillas [address] [place], [address] 07/05/2023 12:41:33 07/05/20 23 07/05/2023 COMPR EHENS JES METAB OLIC PANEL BUN 16 mg/dL 7-18 normal Not Available Kalpesh casillas [address] [place], [address] 07/05/2023 12:41:33 07/05/20 23 07/05/2023 COMPR EHENS JES METAB OLIC PANEL creatinine 0.9 mg/dL 0.55-1 .02 normal Not Available [address] [place], [address] 07/05/2023 12:41:33 07/05/20 23 07/05/2023 COMPR EHENS [...] young er-ag ed adult s. Not Available [address] [place], [address] 07/05/2023 12:41:33 07/05/20 23 07/05/2023 COMPR EHENS JES METAB OLIC PANEL total protein 7.6 g/dL 6.4-8. 2 normal Not Available [address] [place], [address] 07/05/2023 12:41:33 07/05/20 23 07/05/2023 COMPR EHENS JES METAB OLIC PANEL albumin 3.7 g/dL 3.4-5. 0 normal Not Available [address] [place], [address] 07/05/2023 12:41:33 07/05/20 23 07/05/2023 COMPR EHENS JES METAB OLIC PANEL bilirubin, total 0.5 mg/dL 0.2-1. 0 normal Not Available [address] [place], [address] 07/05/2023 12:41:33 07/05/20 23 07/05/2023 COMPR EHENS JES METAB OLIC PANEL alk phos 109 U/L 46-116 normal Not Available [address] [place], [address] 07/05/2023 12:41:33 07/05/20 23 07/05/2023 COMPR EHENS JES METAB OLIC PANEL sodium 135 mmol/ L 136-14 5 low Not Available [address] [place], [address] 07/05/2023 12:41:33 07/05/20 23 07/05/2023 COMPR EHENS JES METAB OLIC PANEL potassium 4.8 mmol/ L 3.5-5. 1 normal Not Available [address] [place], [address] 07/05/2023 12:41:33 07/05/20 23 07/05/2023 COMPR EHENS JES METAB OLIC PANEL chloride 100 mmol/ L 98-107 normal Not Available [address] [place], [address] 07/05/2023 12:41:33 07/05/20 23 07/05/2023 COMPR EHENS JES METAB OLIC PANEL CO2 31.1 mmol/ L 21.0-3 2.0 normal Not Available [address] [place], [address] 07/05/2023 12:41:33 07/05/2007/05/2023 COMPR EHENS JES METAB OLIC PANEL anion gap 3.9 mmol/ L 3-11 normal Not Available [address] [place], [address] 07/05/2023 12:41:33 07/05/20 23 07/05/2023 COMPR EHENS JES METAB OLIC PANEL AST 34 U/L 15-37 normal Not Available Kalpesh [address] [place], [address] 07/05/2023 12:41:33 07/05/2007/05/2023 COMPR EHENS JES METAB OLIC PANEL ALT 51 U/L 14-59 normal Not Available Kalpesh [address] [place], [address] 07/05/2023 12:41:33 07/05/2007/05/2023 ETHYL ALCOH OL ethyl alcohol < 3.0 mg/dL <10 ETOH Refer ence Range = <10 mg/dL Legal Limit of Intox icati on is 80 mg/dL This test is inten ded only for Medic al purpo ses. Divid e resul t by 1000 to conve rt to %(w/v ) Not Available [address] [place], [address] 07/05/2023 12:41:34 07/05/20 23 07/05/2023 HCG QUANT [...] Month s 10,00 0-100 ,000 Not Available [address] [place], [address] 07/05/2023 12:41:34 07/05/20 23 07/05/2023 MAGNE SIUM magnesium 2.1 mg/dL 1.8-2. 4 normal Not Available [address] [place], [address] 07/05/2023 12:41:34 07/05/20 23 07/05/2023 TSH (W/RE F FT4) TSH (w/ref FT4) 0.80 uIU/m L 0.36-3 .74 normal NOTE: Supra -phys iolog ic doses of Bioti n(B7) may cause false negat jes resul ts. Not Available [address] [place], [address] 07/05/2023 12:41:35 07/05/20 23 07/05/2023 CARDI AC TROPO KANWAL I cardiac troponin I < 50 NG/L <or=60 Not Available [address] [place], [address] 07/05/2023 12:41:35 07/05/20 23 07/05/2023 URINA LYSIS color Yellow yellow Not Available Kalpesh casillas [address] [place], [address] 07/05/2023 14:53:39 07/05/20 23 07/05/2023 URINA LYSIS clarity Clear clear Not Available Kalpesh casillas [address] [place], [address] 07/05/2023 14:53:39 07/05/20 23 07/05/2023 URINA LYSIS specific gravity 1.015 1.005- 1.025 normal Not Available [address] [place], [address] 07/05/2023 14:53:39 07/05/20 23 07/05/2023 URINA LYSIS pH 7.5 5-8 normal Not Available Kalpesh casillas [address] [place], [address] 07/05/2023 14:53:39 07/05/20 23 07/05/2023 URINA LYSIS leukocyte esterase Trace negati ve abnormal Not Available [address] [place], [address] 07/05/2023 14:53:39 07/05/20 23 07/05/2023 URINA LYSIS nitrite Negati ve negati ve Not Available [address] [place], [address] 07/05/2023 14:53:39 07/05/20 23 07/05/2023 URINA LYSIS protein Negati ve mg/dL negati ve Not Available [address] [place], [address] 07/05/2023 14:53:39 07/05/20 23 07/05/2023 URINA LYSIS glucose 250 mg/dL negati ve abnormal Not Available [address] [place], [address] 07/05/2023 14:53:39 07/05/20 23 07/05/2023 URINA LYSIS ketones Negati ve mg/dL negati ve Not Available [address] [place], [address] 07/05/2023 14:53:39 07/05/20 23 07/05/2023 URINA LYSIS urobilinogen 0.2 mg/dL up to 0.2 Not Available [address] [place], [address] 07/05/2023 14:53:39 07/05/20 23 07/05/2023 URINA LYSIS bilirubin Negati ve negati ve Not Available [address] [place], [address] 07/05/2023 14:53:39 07/05/20 23 07/05/2023 URINA LYSIS blood Negati ve negati ve Not Available [address] [place], [address] 07/05/2023 14:53:39 07/05/20 23 07/05/2023 CARDI AC TROPO KANWAL I cardiac troponin I < 50 NG/L <or=60 Not Available [address] [place], [address] 07/05/2023 15:02:41 07/05/20 23 07/05/2023 URINA LYSIS color Yellow yellow Not Available Kalpesh casillas [address] [place], [address] 07/05/2023 15:03:40 07/05/20 23 07/05/2023 URINA LYSIS clarity Clear clear Not Available Kalpesh casillas [address] [place], [address] 07/05/2023 15:03:40 07/05/20 23 07/05/2023 URINA LYSIS specific gravity 1.015 1.005- 1.025 normal Not Available [address] [place], [address] 07/05/2023 15:03:40 07/05/20 23 07/05/2023 URINA LYSIS pH 7.5 5-8 normal Not Available Kalpesh casillas [address] [place], [address] 07/05/2023 15:03:40 07/05/20 23 07/05/2023 URINA LYSIS leukocyte esterase Trace negati ve abnormal Not Available [address] [place], [address] 07/05/2023 15:03:40 07/05/20 23 07/05/2023 URINA LYSIS nitrite Negati ve negati ve Not Available [address] [place], [address] 07/05/2023 15:03:40 07/05/20 23 07/05/2023 URINA LYSIS protein Negati ve mg/dL negati ve Not Available [address] [place], [address] 07/05/2023 15:03:40 07/05/20 07/05/2023 URINA LYSIS glucose 250 mg/dL negati ve abnormal Not Available [address] [place], [address] 07/05/2023 15:03:40 07/05/20 23 07/05/2023 URINA LYSIS ketones Negati ve mg/dL negati ve Not Available [address] [place], [address] 07/05/2023 15:03:40 07/05/20 23 07/05/2023 URINA LYSIS urobilinogen 0.2 mg/dL up to 0.2 Not Available [address] [place], [address] 07/05/2023 15:03:40 07/05/20 23 07/05/2023 URINA LYSIS bilirubin Negati ve negati ve Not Available [address] [place], [address] 07/05/2023 15:03:40 07/05/20 23 07/05/2023 URINA LYSIS blood Negati ve negati ve Not Available [address] [place], [address] 07/05/2023 15:03:40 07/05/20 23 07/05/2023 MICRO SCOPI C FINDI NGS WBC 0-2 hpf 0-5 Not Available Kalpesh casillas [address] [place], [address] 07/05/2023 15:03:40 07/05/20 23 07/05/2023 MICRO SCOPI C FINDI NGS RBC Negati ve hpf 0-2 Not Available Bettie suárez [address] [place], [address] 07/05/2023 15:03:40 07/05/20 23 07/05/2023 MICRO SCOPI C FINDI NGS epithelial cells Rare hpf negati ve Not Available [address] [place], [address] 07/05/2023 15:03:40 07/05/20 23 07/05/2023 MICRO SCOPI C FINDI NGS bacteria Rare hpf negati ve Not Available [address] [place], [address] 07/05/2023 15:03:40 07/05/20 23 07/05/2023 MICRO SCOPI C FINDI NGS crystals Negati ve hpf negati ve Not Available [address] [place], [address] 07/05/2023 15:03:40 07/05/20 23 07/05/2023 MICRO SCOPI C FINDI NGS mucus Negati ve negati ve Not Available [address] [place], [address] 07/05/2023 15:03:40 07/05/20 23 07/05/2023 MICRO SCOPI C FINDI NGS casts Negati ve lpf negati ve Not Available [address] [place], [address] 07/05/2023 15:03:40 07/05/20 23 07/05/2023 MICRO SCOPI C FINDI NGS C S indicated? Yes Not Available [address] [place], [address] 07/05/2023 15:03:40 07/05/20 23 07/06/2023 URINE CULTU RE urine culture Urine Cultu re Proba ble conta minat ed colle ction APPEA IVETTE Mixed Gram Posit jes Alta COLON Y COUNT Not Available [address] [place], [address] 07/06/2023 07:38:39 07/05/20 23 07/06/2023 URINE CULTU RE urine culture colon ies/m L 10,00 0 - 50,00 0 Day 1 Resul t ISOLA ANETA BELOW O:GPF M (ORGA NISM ID: [id number]) - GRAM POSIT JES ALTA ,MIXE D Urine Cultu re (ORGA NISM ID: 1.1) - COLON Y COUNT (ORGA NISM ID: 1.1) - 10,00 0 - 50,00 0 Not Available [address] [place], [address] 07/06/2023 07:38:39 07/05/20 23 07/07/2023 URINE CULTU RE urine culture Urine Cultu re Proba ble conta minat ed colle ction APPEA IVETTE Mixed Gram Posit jes Alta APPEA IVETTE Mixed Gram Posit jes Alta COLON Y COUNT Not Available [address] [place], [address] 07/07/2023 07:47:12 07/05/20 23 07/07/2023 URINE CULTU [...] 10,00 0 - 50,00 0 Not Available [address] [place], [address] 07/07/2023 07:47:12 08/21/19 24 08/21/2023 COMPL ETE BLOOD COUNT W/DIF F WBC 7.04 10_3/ uL 4.4-10 .8 normal Not Available [address] [place], [address] 08/21/2023 22:28:59 08/21/19 24 08/21/2023 COMPL ETE BLOOD COUNT W/DIF F RBC 4.44 10_6/ uL 3.93-5 .22 normal Not Available [address] [place], [address] 08/21/2023 22:28:59 08/21/19 24 08/21/2023 COMPL ETE BLOOD COUNT W/DIF F HGB 13.6 g/dL 11.2-1 5.7 normal Not Available [address] [place], [address] 08/21/2023 22:28:59 08/21/19 24 08/21/2023 COMPL ETE BLOOD COUNT W/DIF F HCT 39.8 % 36.0-4 6.0 normal Not Available [address] [place], [address] 08/21/2023 22:28:59 08/21/19 24 08/21/2023 COMPL ETE BLOOD COUNT W/DIF F MCV 90 fL 80-95 normal Not Available Kalpesh [address] [place], [address] 08/21/2023 22:28:59 08/21/19 24 08/21/2023 COMPL ETE BLOOD COUNT W/DIF F MCH 30.6 pg 27.0-3 3.0 normal Not Available [address] [place], [address] 08/21/2023 22:28:59 08/21/19 24 08/21/2023 COMPL ETE BLOOD COUNT W/DIF F MCHC 34.2 % 32.0-3 6.0 normal Not Available [address] [place], [address] 08/21/2023 22:28:59 08/21/19 24 08/21/2023 COMPL ETE BLOOD COUNT W/DIF F RDW 12.3 % 11.7-1 4.6 normal Not Available [address] [place], [address] 08/21/2023 22:28:59 08/21/19 24 08/21/2023 COMPL ETE BLOOD COUNT W/DIF F platelet count 181 10_3/ uL 130-40 0 normal Not Available [address] [place], [address] 08/21/2023 22:28:59 08/21/19 24 08/21/2023 COMPL ETE BLOOD COUNT W/DIF F MPV 9.5 fL 8.0-11 .0 normal Not Available [address] [place], [address] 08/21/2023 22:28:59 08/21/19 24 08/21/2023 COMPL ETE BLOOD COUNT W/DIF F neutrophils % 77.5 Not Available Frazier Parkdagoberto iglesias [address] [place], [address] 08/21/2023 22:28:59 08/21/19 24 08/21/2023 COMPL ETE BLOOD COUNT W/DIF F lymphocytes % 15.2 Not Available Kole iglesias [address] [place], [address] 08/21/2023 22:28:59 08/21/19 24 08/21/2023 COMPL ETE BLOOD COUNT W/DIF F monocytes % 6.1 Not Available [address] [place], [address] 08/21/2023 22:28:59 08/21/19 24 08/21/2023 COMPL ETE BLOOD COUNT W/DIF F eosinophils % 0.4 Not Available [address] [place], [address] 08/21/2023 22:28:59 08/21/19 24 08/21/2023 COMPL ETE BLOOD COUNT W/DIF F basophils % 0.4 Not Available [address] [place], [address] 08/21/2023 22:28:59 08/21/19 24 08/21/2023 COMPL ETE BLOOD COUNT W/DIF F immature grans % 0.4 Not Available [address] [place], [address] 08/21/2023 22:28:59 08/21/19 24 08/21/2023 COMPL ETE BLOOD COUNT W/DIF F nucleated RBC 0.0 % 0.0-0. 3 normal Not Available [address] [place], [address] 08/21/2023 22:28:59 08/21/19 24 08/21/2023 COMPL ETE BLOOD COUNT W/DIF F absolute neutrophil count 5.45 10_3/ uL 1.2-6. 7 normal Not Available [address] [place], [address] 08/21/2023 22:28:59 08/21/19 24 08/21/2023 COMPL ETE BLOOD COUNT W/DIF F absolute lymphocyte count 1.07 10_3/ uL 1.2-3. 4 low Not Available [address] [place], [address] 08/21/2023 22:28:59 08/21/19 24 08/21/2023 COMPL ETE BLOOD COUNT W/DIF F absolute monocyte count 0.43 10_3/ uL 0.1-0. 8 normal Not Available [address] [place], [address] 08/21/2023 22:28:59 08/21/19 24 08/21/2023 COMPL ETE BLOOD COUNT W/DIF F absolute eosinophil count 0.03 10_3/ uL 0.0-0. 7 normal Not Available [address] [place], [address] 08/21/2023 22:28:59 08/21/19 24 08/21/2023 COMPL ETE BLOOD COUNT W/DIF F absolute basophil count 0.03 10_3/ uL 0.0-0. 2 normal Not Available [address] [place], [address] 08/21/2023 22:28:59 08/21/19 24 08/21/2023 COMPR EHENS JES METAB OLIC PANEL calcium 9.8 mg/dL 8.5-10 .1 normal Not Available [address] [place], [address] 08/21/2023 22:58:02 08/21/19 24 08/21/2023 COMPR EHENS JES METAB OLIC PANEL glucose 207 mg/dL 74-106 high Not Available Kalpesh casillas [address] [place], [address] 08/21/2023 22:58:02 08/21/19 24 08/21/2023 COMPR EHENS JES METAB OLIC PANEL BUN 17 mg/dL 7-18 normal Not Available Kalpesh casillas [address] [place], [address] 08/21/2023 22:58:02 08/21/19 24 08/21/2023 COMPR EHENS JES METAB OLIC PANEL creatinine 0.9 mg/dL 0.55-1 .02 normal Not Available [address] [place], [address] 08/21/2023 22:58:02 08/21/19 24 08/21/2023 COMPR EHENS [...] young er-ag ed adult s. Not Available [address] [place], [address] 08/21/2023 22:58:02 08/21/19 24 08/21/2023 COMPR EHENS JES METAB OLIC PANEL total protein 8.1 g/dL 6.4-8. 2 normal Not Available [address] [place], [address] 08/21/2023 22:58:02 08/21/19 24 08/21/2023 COMPR EHENS JES METAB OLIC PANEL albumin 4.0 g/dL 3.4-5. 0 normal Not Available [address] [place], [address] 08/21/2023 22:58:02 08/21/19 24 08/21/2023 COMPR EHENS JES METAB OLIC PANEL bilirubin, total 0.7 mg/dL 0.2-1. 0 normal Not Available [address] [place], [address] 08/21/2023 22:58:02 08/21/19 24 08/21/2023 COMPR EHENS JES METAB OLIC PANEL alk phos 104 U/L 46-116 normal Not Available [address] [place], [address] 08/21/2023 22:58:02 08/21/19 24 08/21/2023 COMPR EHENS JES METAB OLIC PANEL sodium 137 mmol/ L 136-14 5 normal Not Available [address] [place], [address] 08/21/2023 22:58:02 08/21/19 24 08/21/2023 COMPR EHENS JES METAB OLIC PANEL potassium 4.3 mmol/ L 3.5-5. 1 normal Not Available [address] [place], [address] 08/21/2023 22:58:02 08/21/19 24 08/21/2023 COMPR EHENS JES METAB OLIC PANEL chloride 100 mmol/ L 98-107 normal Not Available [address] [place], [address] 08/21/2023 22:58:02 08/21/19 24 08/21/2023 COMPR EHENS JES METAB OLIC PANEL CO2 30.1 mmol/ L 21.0-3 2.0 normal Not Available [address] [place], [address] 08/21/2023 22:58:02 08/21/19 24 08/21/2023 COMPR EHENS JES METAB OLIC PANEL anion gap 6.9 mmol/ L 3-11 normal Not Available [address] [place], [address] 08/21/2023 22:58:02 08/21/19 24 08/21/2023 COMPR EHENS JES METAB OLIC PANEL AST 32 U/L 15-37 normal Not Available Kalpesh [address] [place], [address] 08/21/2023 22:58:02 08/21/19 24 08/21/2023 COMPR EHENS JES METAB OLIC PANEL ALT 47 U/L 14-59 normal Not Available Kalpesh [place] [address] [place], [address] 08/21/2023 22:58:02 08/21/1908/21/2023 ETHYL ALCOH OL ethyl [...] conve rt to %(w/v ) Not Available [address] [place], [address] 08/21/2023 22:58:03 08/21/19 24 08/21/2023 MAGNE SIUM magnesium 2.1 mg/dL 1.8-2. 4 normal Not Available [address] [place], [address] 08/21/2023 22:58:04 08/21/19 24 08/21/2023 CARDI AC TROPO KANWAL I cardiac troponin I < 50 NG/L < or =60 Not Available [address] [place], [address] 08/21/2023 22:58:05 08/22/19 24 08/22/2023 URINE DRUG SCREE N ([facility] ) methadone Negati ve negati ve Not Available [address] [place], [address] 08/22/2023 00:55:06 08/22/19 24 08/22/2023 URINE DRUG SCREE N ([facility] ) benzodiazepi yoselyn Negati ve negati ve Benzo diaze pines are exten sivel y metab olize d and the paren t compo und may not be detec tarsha in urine . If clini elizabeth suspi cion is high, pleas e notif y Lab for send- out testi ng. Not Available [address] [place], [address] 08/22/2023 00:55:06 08/22/19 24 08/22/2023 URINE DRUG SCREE N ([facility] ) cocaine Negati ve negati ve Not Available [address] [place], [address] 08/22/2023 00:55:06 08/22/19 24 08/22/2023 URINE DRUG SCREE N ([facility] ) amphetamines Negati ve negati ve Not Available [address] [place], [address] 08/22/2023 00:55:06 08/22/19 24 08/22/2023 URINE DRUG SCREE N ([facility] ) tetrahydroca nnabinol Positi ve negati ve abnormal Not Available [address] [place], [address] 08/22/2023 00:55:06 08/22/19 24 08/22/2023 URINE DRUG SCREE N ([facility] ) opiates Negati ve negati ve Not Available [address] [place], [address] 08/22/2023 00:55:06 08/22/19 24 08/22/2023 URINE DRUG SCREE N ([facility] ) barbiturates Negati ve negati ve Not Available [address] [place], [address] 08/22/2023 00:55:06 08/22/19 24 08/22/2023 URINE DRUG [...] tion of these resul ts. Not Available [address] [place], [address] 08/22/2023 00:55:06 12/07/19 24 12/07/2023 COMPL ETE BLOOD COUNT W/DIF F WBC 5.74 10_3/ uL 4.4-10 .8 normal Not Available [address] [place], [address] 12/07/2023 13:34:31 12/07/19 24 12/07/2023 COMPL ETE BLOOD COUNT W/DIF F RBC 4.11 10_6/ uL 3.93-5 .22 normal Not Available [address] [place], [address] 12/07/2023 13:34:31 12/07/19 24 12/07/2023 COMPL ETE BLOOD COUNT W/DIF F HGB 12.7 g/dL 11.2-1 5.7 normal Not Available [address] [place], [address] 12/07/2023 13:34:31 12/07/19 24 12/07/2023 COMPL ETE BLOOD COUNT W/DIF F HCT 37.6 % 36.0-4 6.0 normal Not Available [address] [place], [address] 12/07/2023 13:34:31 12/07/19 24 12/07/2023 COMPL ETE BLOOD COUNT W/DIF F MCV 92 fL 80-95 normal Not Available [address] [place], [address] 12/07/2023 13:34:31 12/07/19 24 12/07/2023 COMPL ETE BLOOD COUNT W/DIF F MCH 30.9 pg 27.0-3 3.0 normal Not Available [address] [place], [address] 12/07/2023 13:34:31 12/07/19 24 12/07/2023 COMPL ETE BLOOD COUNT W/DIF F MCHC 33.8 % 32.0-3 6.0 normal Not Available [address] [place], [address] 12/07/2023 13:34:31 12/07/19 24 12/07/2023 COMPL ETE BLOOD COUNT W/DIF F RDW 12.2 % 11.7-1 4.6 normal Not Available [address] [place], [address] 12/07/2023 13:34:31 12/07/19 24 12/07/2023 COMPL ETE BLOOD COUNT W/DIF F platelet count 178 10_3/ uL 130-40 0 normal Not Available [address] [place], [address] 12/07/2023 13:34:31 12/07/19 24 12/07/2023 COMPL ETE BLOOD COUNT W/DIF F MPV 9.6 fL 8.0-11 .0 normal Not Available [address] [place], [address] 12/07/2023 13:34:31 12/07/19 24 12/07/2023 COMPL ETE BLOOD COUNT W/DIF F neutrophils % 55.2 % Not Available [address] [place], [address] 12/07/2023 13:34:31 12/07/19 24 12/07/2023 COMPL ETE BLOOD COUNT W/DIF F lymphocytes % 34.0 % Not Available [address] [place], [address] 12/07/2023 13:34:31 12/07/19 24 12/07/2023 COMPL ETE BLOOD COUNT W/DIF F monocytes % 8.9 % Not Available [address] [place], [address] 12/07/2023 13:34:31 12/07/19 24 12/07/2023 COMPL ETE BLOOD COUNT W/DIF F eosinophils % 0.9 % Not Available [address] [place], [address] 12/07/2023 13:34:31 12/07/19 24 12/07/2023 COMPL ETE BLOOD COUNT W/DIF F basophils % 0.7 % Not Available [address] [place], [address] 12/07/2023 13:34:31 12/07/19 24 12/07/2023 COMPL ETE BLOOD COUNT W/DIF F immature grans % 0.3 % Not Available [address] [place], [address] 12/07/2023 13:34:31 12/07/19 24 12/07/2023 COMPL ETE BLOOD COUNT W/DIF F nucleated RBC 0.0 % 0.0-0. 3 normal Not Available [address] [place], [address] 12/07/2023 13:34:31 12/07/19 24 12/07/2023 COMPL ETE BLOOD COUNT W/DIF F absolute neutrophil count 3.17 10_3/ uL 1.2-6. 7 normal Not Available [address] [place], [address] 12/07/2023 13:34:31 12/07/19 24 12/07/2023 COMPL ETE BLOOD COUNT W/DIF F absolute lymphocyte count 1.95 10_3/ uL 1.2-3. 4 normal Not Available [address] [place], [address] 12/07/2023 13:34:31 12/07/19 24 12/07/2023 COMPL ETE BLOOD COUNT W/DIF F absolute monocyte count 0.51 10_3/ uL 0.1-0. 8 normal Not Available [address] [place], [address] 12/07/2023 13:34:31 12/07/19 24 12/07/2023 COMPL ETE BLOOD COUNT W/DIF F absolute eosinophil count 0.05 10_3/ uL 0.0-0. 7 normal Not Available [address] [place], [address] 12/07/2023 13:34:31 12/07/19 24 12/07/2023 COMPL ETE BLOOD COUNT W/DIF F absolute basophil count 0.04 10_3/ uL 0.0-0. 2 normal Not Available [address] [place], [address] 12/07/2023 13:34:31 12/07/19 24 12/07/2023 COMPR EHENS JES METAB OLIC PANEL calcium 9.1 mg/dL 8.5-10 .1 normal Not Available [address] [place], [address] 12/07/2023 13:53:40 12/07/19 24 12/07/2023 COMPR EHENS JES METAB OLIC PANEL glucose 154 mg/dL 74-106 high Not Available Kalpesh [address] [place], [address] 12/07/2023 13:53:40 12/07/19 24 12/07/2023 COMPR EHENS JES METAB OLIC PANEL BUN 21 mg/dL 7-18 high Not Available Kalpesh [place]illas [address] [place], [address] 12/07/2023 13:53:40 12/07/19 24 12/07/2023 COMPR EHENS JES METAB OLIC PANEL creatinine 0.9 mg/dL 0.55-1 .02 normal Not Available [address] [place], [address] 12/07/2023 13:53:40 12/07/19 24 12/07/2023 COMPR EHENS [...] young er-ag ed adult s. Not Available [address] [place], [address] 12/07/2023 13:53:40 12/07/19 24 12/07/2023 COMPR EHENS JES METAB OLIC PANEL total protein 7.1 g/dL 6.4-8. 2 normal Not Available [address] [place], [address] 12/07/2023 13:53:40 12/07/19 24 12/07/2023 COMPR EHENS JES METAB OLIC PANEL albumin 3.5 g/dL 3.4-5. 0 normal Not Available [address] [place], [address] 12/07/2023 13:53:40 12/07/19 24 12/07/2023 COMPR EHENS JES METAB OLIC PANEL bilirubin, total 0.6 mg/dL 0.2-1. 0 normal Not Available [address] [place], [address] 12/07/2023 13:53:40 12/07/19 24 12/07/2023 COMPR EHENS JES METAB OLIC PANEL alk phos 106 U/L 46-116 normal Not Available [address] [place], [address] 12/07/2023 13:53:40 12/07/19 24 12/07/2023 COMPR EHENS JES METAB OLIC PANEL sodium 139 mmol/ L 136-14 5 normal Not Available [address] [place], [address] 12/07/2023 13:53:40 12/07/19 24 12/07/2023 COMPR EHENS JES METAB OLIC PANEL potassium 4.4 mmol/ L 3.5-5. 1 normal Not Available [address] [place], [address] 12/07/2023 13:53:40 12/07/19 24 12/07/2023 COMPR EHENS JES METAB OLIC PANEL chloride 104 mmol/ L 98-107 normal Not Available [address] [place], [address] 12/07/2023 13:53:40 12/07/19 24 12/07/2023 COMPR EHENS JES METAB OLIC PANEL CO2 29.8 mmol/ L 21.0-3 2.0 normal Not Available [address] [place], [address] 12/07/2023 13:53:40 12/07/19 24 12/07/2023 COMPR EHENS JES METAB OLIC PANEL anion gap 5.2 mmol/ L 3-11 normal Not Available [address] [place], [address] 12/07/2023 13:53:40 12/07/19 24 12/07/2023 COMPR EHENS JES METAB OLIC PANEL AST 39 U/L 15-37 high Not Available [address], [address] 12/07/2023 13:53:40 12/07/19 24 12/07/2023 COMPR EHENS JES METAB OLIC PANEL ALT 48 U/L 14-59 normal Not Available Kalpesh casillas [address] [place], [address] 12/07/2023 13:53:40 12/07/19 24 12/07/2023 TROPO KANWAL I troponin I < 50 NG/L < or =60 Not Available [address] [place], [address] 12/07/2023 13:53:40 12/07/19 24 12/07/2023 PROTH ROMBI N TIME prothrombin time 10.9 sec 9.1-11 .1 normal Not Available [address] [place], [address] 12/07/2023 14:14:40 12/07/19 24 12/07/2023 PROTH ROMBI N TIME INR 1.1 0.9-1. 1 normal Recom celia d INR thera peuti c range s for orall y admin ister ed drugs are as follo ws: -[place] Inten sity 2.0 to 3.0 -High er Inten sity 3.0 to 4.5 Not Available [address] [place], [address] 12/07/2023 14:14:40 12/07/19 24 12/07/2023 PTT ACTIV ATED PTT activated 23.4 sec 23.6-3 2.8 low Hepar in Thera peuti c Range for PTT = 52-84 secon ds New Hepar in Thera peuti c Range 09/08 Not Available [address] [place], [address] 12/07/2023 14:14:41 12/07/19 24 12/07/2023 TROPO KANWAL I troponin I < 50 NG/L < or =60 Not Available [address] [place], [address] 12/07/2023 16:25:17 02/15/20 24 02/15/2024 COMPL ETE BLOOD COUNT W/DIF F WBC 4.55 10_3/ uL 4.4-10 .8 normal Not Available [address] [place], [address] 02/15/2024 10:39:22 02/15/20 24 02/15/2024 COMPL ETE BLOOD COUNT W/DIF F RBC 4.67 10_6/ uL 3.93-5 .22 normal Not Available [address] [place], [address] 02/15/2024 10:39:22 02/15/20 24 02/15/2024 COMPL ETE BLOOD COUNT W/DIF F HGB 14.3 g/dL 11.2-1 5.7 normal Not Available [address] [place], [address] 02/15/2024 10:39:22 02/15/20 24 02/15/2024 COMPL ETE BLOOD COUNT W/DIF F HCT 42.4 % 36.0-4 6.0 normal Not Available [address] [place], [address] 02/15/2024 10:39:22 02/15/20 24 02/15/2024 COMPL ETE BLOOD COUNT W/DIF F MCV 91 fL 80-95 normal Not Available [address], [address] 02/15/2024 10:39:22 02/15/20 24 02/15/2024 COMPL ETE BLOOD COUNT W/DIF F MCH 30.6 pg 27.0-3 3.0 normal Not Available [address] [place], [address] 02/15/2024 10:39:22 02/15/20 24 02/15/2024 COMPL ETE BLOOD COUNT W/DIF F MCHC 33.7 % 32.0-3 6.0 normal Not Available [address] [place], [address] 02/15/2024 10:39:22 02/15/20 24 02/15/2024 COMPL ETE BLOOD COUNT W/DIF F RDW 12.3 % 11.7-1 4.6 normal Not Available [address] [place], [address] 02/15/2024 10:39:22 02/15/20 24 02/15/2024 COMPL ETE BLOOD COUNT W/DIF F platelet count 189 10_3/ uL 130-40 0 normal Not Available [address] [place], [address] 02/15/2024 10:39:22 02/15/20 24 02/15/2024 COMPL ETE BLOOD COUNT W/DIF F MPV 9.8 fL 8.0-11 .0 normal Not Available [address] [place], [address] 02/15/2024 10:39:22 02/15/20 24 02/15/2024 COMPL ETE BLOOD COUNT W/DIF F neutrophils % 56.9 % Not Available [address] [place], [address] 02/15/2024 10:39:22 02/15/20 24 02/15/2024 COMPL ETE BLOOD COUNT W/DIF F lymphocytes % 33.2 % Not Available [address] [place], [address] 02/15/2024 10:39:22 02/15/20 24 02/15/2024 COMPL ETE BLOOD COUNT W/DIF F monocytes % 8.1 % Not Available [address] [place], [address] 02/15/2024 10:39:22 02/15/20 24 02/15/2024 COMPL ETE BLOOD COUNT W/DIF F eosinophils % 0.9 % Not Available [address] [place], [address] 02/15/2024 10:39:22 02/15/20 24 02/15/2024 COMPL ETE BLOOD COUNT W/DIF F basophils % 0.7 % Not Available [address] [place], [address] 02/15/2024 10:39:22 02/15/20 24 02/15/2024 COMPL ETE BLOOD COUNT W/DIF F immature grans % 0.2 % Not Available [address] [place], [address] 02/15/2024 10:39:22 02/15/20 24 02/15/2024 COMPL ETE BLOOD COUNT W/DIF F nucleated RBC 0.0 % 0.0-0. 3 normal Not Available [address] [place], [address] 02/15/2024 10:39:22 02/15/20 24 02/15/2024 COMPL ETE BLOOD COUNT W/DIF F absolute neutrophil count 2.59 10_3/ uL 1.2-6. 7 normal Not Available [address] [place], [address] 02/15/2024 10:39:22 02/15/20 24 02/15/2024 COMPL ETE BLOOD COUNT W/DIF F absolute lymphocyte count 1.51 10_3/ uL 1.2-3. 4 normal Not Available [address] [place], [address] 02/15/2024 10:39:22 02/15/20 24 02/15/2024 COMPL ETE BLOOD COUNT W/DIF F absolute monocyte count 0.37 10_3/ uL 0.1-0. 8 normal Not Available [address] [place], [address] 02/15/2024 10:39:22 02/15/20 24 02/15/2024 COMPL ETE BLOOD COUNT W/DIF F absolute eosinophil count 0.04 10_3/ uL 0.0-0. 7 normal Not Available [address] [place], [address] 02/15/2024 10:39:22 02/15/20 24 02/15/2024 COMPL ETE BLOOD COUNT W/DIF F absolute basophil count 0.03 10_3/ uL 0.0-0. 2 normal Not Available [address] [place], [address] 02/15/2024 10:39:22 02/15/20 24 02/15/2024 ESR ESR 12 mm/HR 0-20 normal Not Available [address] [place], [address] 02/15/2024 10:53:16 02/15/20 24 02/15/2024 D-DIM ER D-dimer 886 NG/ml feu <500 high *Lite ratur e suppo rts the exclu marysol of DVT and/o r PE with a resul t less than 500 ng/ml FEU with this metho d.* Not Available [address] [place], [address] 02/15/2024 11:17:25 02/15/20 24 02/15/2024 COMPR EHENS JES METAB OLIC PANEL calcium 9.4 mg/dL 8.5-10 .1 normal Not Available [address] [place], [address] 02/15/2024 11:28:26 02/15/20 24 02/15/2024 COMPR EHENS JES METAB OLIC PANEL glucose 339 mg/dL 74-106 high Not Available Kalpesh [address] [place], [address] 02/15/2024 11:28:26 02/15/20 24 02/15/2024 COMPR EHENS JES METAB OLIC PANEL BUN 15 mg/dL 7-18 normal Not Available Kalpesh [address] [facility] [place], [address] 02/15/2024 11:28:26 02/15/20 24 02/15/2024 COMPR EHENS JES METAB OLIC PANEL creatinine 0.9 mg/dL 0.55-1 .02 normal Not Available [address] [place], [address] 02/15/2024 11:28:26 02/15/20 24 02/15/2024 COMPR EHENS [...] young er-ag ed adult s. Not Available [address] [place], [address] 02/15/2024 11:28:26 02/15/20 24 02/15/2024 COMPR EHENS JES METAB OLIC PANEL total protein 8.0 g/dL 6.4-8. 2 normal Not Available [address] [place], [address] 02/15/2024 11:28:26 02/15/20 24 02/15/2024 COMPR EHENS JES METAB OLIC PANEL albumin 3.9 g/dL 3.4-5. 0 normal Not Available [address] [place], [address] 02/15/2024 11:28:26 02/15/20 24 02/15/2024 COMPR EHENS JES METAB OLIC PANEL bilirubin, total 0.77 mg/dL 0.2-1. 0 normal Not Available [address] [place], [address] 02/15/2024 11:28:26 02/15/20 24 02/15/2024 COMPR EHENS JES METAB OLIC PANEL alk phos 161 U/L 46-116 high Not Available [address] [place], [address] 02/15/2024 11:28:26 02/15/20 24 02/15/2024 COMPR EHENS JES METAB OLIC PANEL sodium 136 mmol/ L 136-14 5 normal Not Available [address] [place], [address] 02/15/2024 11:28:26 02/15/20 24 02/15/2024 COMPR EHENS JES METAB OLIC PANEL potassium 4.3 mmol/ L 3.5-5. 1 normal Not Available [address] [place], [address] 02/15/2024 11:28:26 02/15/20 24 02/15/2024 COMPR EHENS JES METAB OLIC PANEL chloride 99 mmol/ L 98-107 normal Not Available [address] [place], [address] 02/15/2024 11:28:26 02/15/20 24 02/15/2024 COMPR EHENS JES METAB OLIC PANEL CO2 30.9 mmol/ L 21.0-3 2.0 normal Not Available [address] [place], [address] 02/15/2024 11:28:26 02/15/20 24 02/15/2024 COMPR EHENS JES METAB OLIC PANEL anion gap 6.1 mmol/ L 3-11 normal Not Available [address] [place], [address] 02/15/2024 11:28:26 02/15/20 24 02/15/2024 COMPR EHENS JES METAB OLIC PANEL AST 36 U/L 15-37 normal Not Available [address] [place], [address] 02/15/2024 11:28:26 02/15/20 24 02/15/2024 COMPR EHENS JES METAB OLIC PANEL ALT 46 U/L 14-59 normal Not Available [address] [place], [address] 02/15/2024 11:28:26 02/15/20 24 02/15/2024 C-KATIE CTIVE PROTE IN C-reactive protein < 0.50 mg/dL <or=0. 5 Not Available [address] [place], [address] 02/15/2024 11:24:26 02/15/20 24 02/15/2024 C-KATIE CTIVE PROTE IN C-reactive protein < 0.50 mg/dL <or=0. 5 Not Available [address] [facility] [place], [address] 02/15/2024 11:28:27 07/05/20 23 07/05/2023 elect sola bergeron am EKG PATIMARIANNA T NAME: Kailey Hernandez UNIT #: [id number] ORDERI NG PROVID ER: Ilda Angeles M.D. ACCOUN T #: [id number] PRIMAR Y CARE PROVID ER: JENNIFER ON,CEASRA FRANCO DATE/T ARELY OF SER VICE: 1146 : 1974 PERFOR OSCAR LOCATI ON: ER ------ ------ --- APPROV ED REPORT ------ ------ -- Exam: Restin g ECG Reason for Exam: syncop e Laly sebastian Locati on: E HR:74 bpm ECG Measur ements Heart Rate 74 AXIS SD 147 P 73 QRSd 106 QRS -66 QT 393 T 66 QTc 435 Conclu marysol Sinus rhythm ..., V-rate 60- 99 Approp riate interv als. 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 Right middle cerebr al artery : No occlus ion or signif icant stenos is. No aneury sm. Right anteri or cerebr al artery : Absent right A1 segmen t which can be a normal varian t. Left senior internet sales consultant al caroti d artery : Mild-t o-mode rate cavern ous caroti d diseas e on the left. Left middle cerebr al artery : No occlus ion or signif icant stenos is. No aneury sm. Left anteri or cerebr al artery : No occlus ion or signif icant stenos is. No aneury sm. 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 No aneury sm. Left verteb ral artery : No occlus ion or signif icant stenos is. No aneury sm. Basila r artery : No occlus ion or signif icant stenos is. No aneury sm. Right rug inspector ior cerebr al artery : No occlus ion or signif icant stenos is. No aneury sm. Left rug inspector ior cerebr al artery : No occlus [...] No large vessel occlus ion at the [place]. 3. Absent right A1 segmen [...] No dissec tion or occlus ion. Right senior internet sales consultant al caroti d artery : No stenos is of the extrac ranial segmen t. No dissec tion or occlus ion. Right rigging supervisor al caroti d artery : No occlus ion or stenos is of the origin . Left common caroti d artery : No stenos is. No dissec tion or occlus ion. Left senior internet sales consultant al caroti d artery : No stenos is of the extrac ranial segmen t. No dissec tion or occlus ion. Left rigging supervisor al caroti d artery : No occlus [...] the cervic al segmen t of the senior internet sales consultant al caroti d artery is based on NASCET criter ia. Normal is no stenos is. Mild is less than 50% stenos is. Modera te is 50-69% stenos is. Severe is 70% to 99% stenos is. Total occlus ion is no detect able patent lumen. Dictat ed and Authen ticate d by: Debby Albert i, MD. Orderi ng:Curry gee MD Access ion#=[id number] Ordere d By: CC: ------ ------ [...] the addres s above. Thank- you. amarjit [facility] [address] [place], [address] 07/06/2023 16:20:17 07/05/20 23 07/05/2023 vrad repor t Patimarianna t Name: Kailey Hernandez Unit #: [id number] Loc: ER Orderi ng Provid er: Accoun t #: [id number] Status : REG ER Primar y [...] ng:Curry OCJ Karthik gee MD Access ion#=[id number] Joel to By: CC: ------ ------ [...] the addres s above. Thank- you. amarjit [facility] [address], [place], [address] 07/06/2023 16:20:19 07/05/20 23 07/05/2023 ED visit note ED Visit Note LALY Sebastian NAME: Kailey Hernandez UNIT #: [id number] ADMITT ING PROVID ER: Ilda Angeles M.D. ACCOUN T #: [id number] PRIMAR Y CARE PROVID ER: CEASAR [...] moveme nts to sugges t seizur e. [facility] record s review ed includ ing cardio [...] alitie s to sugges t occlus jes CO. Tropon in negati ve x 2 -CT [...] No large vessel occlus ion at the [place]. 3. Absent right A1 segmen [...] % 1.5 Basoph ils % 0.5 Nuclea tarhsa RBC % (0.0-0 .3) % 0.0 Absolu [...] the addres s above. Thank you. amarjit [facility] [address] [place], [address] 07/06/2023 16:20:17 07/05/20 23 07/05/2023 CT imagi ng repor t Patien t Name: Kailey Hernandez Unit #: [id number] Loc: ER Orderi ng Provid er: Ilda Angeles M.D. Accoun t #: [id number] Status : REG ER Primar y Care [...] facili ty are submit tarsha to the [facility] Radiol ogy Data Regist ry (NRDR) Dose [...] bution by any person other than this [facility] er is strict ly prohib ited. If you receiv e this report in error, please notify us immedchaka olson at [phone] and return the origin al report to us at the addres s above. Thank- you. amarjit [facility] [address] , [place], [address] 07/06/2023 16:20:20 07/05/20 23 07/05/2023 CT imagi ng repor t Patien t Name: Kailey Hernandez Unit #: [id number] Loc: ER Orderi ng Provid er: Ilda Angeles M.D. t #: [id number] Status : REG ER Primar y Care Provid er: Jennifer on,Cesaar joan Date of Exam: Sex: F : [...] the caroti d bulbs and proxim al senior internet sales consultant al caroti d arteri es there is no signif icant plaque and no signif icant stenos is eviden t. Both senior internet sales consultant al caroti d arteri es are patent in the upper neck and skull base-c arotid canals . Computer Systems Software Architect ior circul ation: Both verteb ral arteri [...] Brain W: Anteri or circul ation: Both senior internet sales consultant al caroti d arteri es are patent in the skull base-c arotid canals as well as within the cavern ous sinuse s. Suprac linoid aspect s of both senior internet sales consultant al caroti d arteri es are patent [...] no aneury sms of these vessel s. Computer Systems Software Architect ior circul ation: The basila r artery ascend s in the midlin e. Distal ly it gives off patent bilate ral superi or cerebe llar arteri es. Above this level the basila r artery termin ates as patent bilate ral rug inspector ior cerebr al arteri es. There is a rug inspector ior commun icatin g artery noted on the left side of the [place]. There is no eviden ce of aneury sm at the tip of the basila r artery nor elsewh ere in the [place]. CT BRAIN: There is no [...] facili ty are submit tarsha to the [facility] al Radiol ogy Data Regist ry (NRDR) Dose Index Regist ry (DIR) with the [place] of Radiol ogy (ACR). RADIAT ION OPTIMI ZATION : All CT scans at this [facility] ty use at least one of [...] the addres s above. Thank- you. amarjit [facility] [address] [place], [address] 07/06/2023 16:20:20 07/06/20 23 07/05/2023 elect sola bergeron am EKG PATIMARIANNA T NAME: Kailey Hernandez UNIT #: [id number] ORDERI NG PROVID ER: Ilda Angeles M.D. ACCOUN T #: [id number] PRIMAR Y CARE PROVID ER: CEASAR TURNER DATE/T ARELY OF SER VICE: 1146 : 1974 PERFOR OSCAR LOCATI ON: ER ------ ------ --- APPROV ED REPORT ------ ------ -- Exam: Restin g ECG Reason for Exam: syncop e Laly sebastian Locati on: E HR:74 bpm ECG Measur ements Heart Rate 74 AXIS SD 147 P 73 QRSd 106 QRS -66 QT 393 T 66 QTc 435 Conclu marysol Sinus rhythm ..., V-rate 60- 99 Approp riate interv als. No ST segmen t or T wave abnorm alitie s to sugges t occlus jes CO ------ ------ ------ ------ ------ ------ ------ ------ ------ ------ ------ ------ ------ ------ ------ ------ ---- ------ - E-Sign Date: E-Sign Time: 1159 ------ ------ --- ADDEND UM APPROV ED REPORT ------ ------ -- Exam: Restin g ECG Reason for Exam: syncop e Laly sebastian Locati on: E HR:74 bpm ECG Measur ements Heart Rate 74 AXIS SD 147 P 73 QRSd 106 QRS -66 QT 393 T 66 QTc 435 Conclu marysol Sinus rhythm ..., V-rate 60- 99 Approp riate interv als. No ST segmen t or T wave abnorm alitie s to sugges t occlus jes CO I have review ed and I agree with the emerge ncy room physic kristie's ECG interp retati on. Electr onical ly signed by: [id number] Cosign ed by: amarjit [facility] [address] [place] [address] [place], [address] 07/06/2023 16:20:18 08/21/19 24 08/21/2023 elect sola bergeron am EKG LALY Sebastian NAME: David Kailey A UNIT #: [id number] ORDERI NG PROVID ER: Ilda Angeles M.D. ACCOUN T #: [id number] PRIMAR Y CARE PROVID ER: JENNIFERCEASAR SAUNDERS JOAN DATE/T ARELY OF SER VICE: 2217 : 1974 PERFOR OSCAR LOCATI ON: ER ------ ------ --- APPROV ED REPORT ------ ------ -- Exam: Restin g ECG Reason for Exam: vomiti amanda Patimraianna t Locati on: E HR:73 bpm ECG Measur ements Heart Rate 73 AXIS SD 149 P 68 QRSd 114 QRS 1 QT 395 T 67 QTc 437 Conclu marysol Sinus rhythm ..V-ra te 60- 99 Approp riate interv als. No ST segmen t or T wave abnorm jason soriano to micah t occlus jes CO ------ ------ ------ ------ ------ ------ ------ ------ ------ ------ ------ ------ ------ ------ ------ ------ ---- ------ - E-Sign Date: E-Sign Time: 2230 [email or web address] [facility] [address] [place] [address] [place], [address] 08/24/2023 07:32:07 08/21/1908/21/2023 ED visit note ED Visit Note LALY T NAME: Kailey Hernandez UNIT #: [id number] ADMITT ING PROVID ER: Ilda Angeles M.D. ACCOUN T #: [id number] PRIMAR Y CARE PROVID ER: CEASAR [...] alitie s to sugges t occlus jes CO. 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 Thank you. amarjit [facility] [address], [place], [address] 08/24/2023 07:32:07 08/22/19 24 08/22/2023 ED progr ess note ED Progre ss Note PATIEN T NAME: Kailey Hernandez UNIT #: [id number] ADMITT ING PROVID ER: Richard Savage DO ACCOUN T #: [id number] PRIMAR Y CARE PROVID ER: CEASAR [...] Soha acuña at 6:30 AM the laly sebastina is feelin g much better . She [...] in this chart was dictat ed using Gel[employer]ight[employer] dictat ion softwa re. Please excuse any [...] the addres s above. Thank you. amarjit [facility] [address] [place], [address] 08/24/2023 07:32:07 08/28/1908/21/2023 cesar bergeron am EKG LALY T NAME: Kailey Hernandez UNIT #: [id number] ORDERI NG PROVID ER: Ilda Angeles M.D. ACCCOOKIE T #: [id number] PRIMAR Y CARE PROVID ER: CEASAR TURNER DATE/T ARELY OF SER VICE: 2217 : 1974 QU[facility] LOCATI ON: ER ------ ------ --- APPROV ED REPORT ------ ------ -- Exam: Restin g ECG Reason for Exam: vomiti ng Patien t Locati on: E HR:73 bpm ECG Measur ements Heart Rate 73 AXIS SD 149 P 68 QRSd 114 QRS 1 QT 395 T 67 QTc 437 Conclu marysol Sinus rhythm ..V-ra te 60- 99 Approp riate interv als. No ST segmen t or T wave abnorm alitie s to sugges t occlus jes CO ------ ------ ------ ------ ------ ------ ------ ------ ------ ------ ------ ------ ------ ------ ------ ------ ---- ------ - E-Sign Date: E-Sign Time: 2229 ------ ------ --- ADDEND UM APPRO ED REPORT ------ ------ -- Exam: Restin g ECG Reason for Exam: vomiti ng Patien t Locati on: E HR:73 bpm ECG Measur ements Heart Rate 73 AXIS SD 149 P 68 QRSd 114 QRS 1 QT 395 T 67 QTc 437 Conclu marysol Sinus rhythm ..V-ra te 60- 99 Approp riate interv als. No ST segmen t or T wave abnorm alitie s to sugges t occlus jes CO I have review ed and I agree with the emerge ncy room physic kristie's ECG interp retati on. Electr onical ly signed by: [id number] Cosign ed by: amarjit [facility] [address] [place], [address] 08/28/2023 14:30:56 12/07/19 24 12/07/2023 x-ray imagi ng repor t Patien t Name: Kailey Hernandez Unit #: [id number] Loc: ER Orderi ng Provid er: Ramon Thorpe M.D. Accoun t #: [id number] Status : REG ER Primar y Care Provid er: Ceasar Turner Date of Exam: Sex: F Admiss ion Date: : 1974 Age: 48 Exam(s ) XR CHEST 2V PA LATERA L EXAM: XR CHEST 2V PA LATERA L CLINIC AL HISTOR Y: chest pain TECHNI QUE: 2D digita l imagin g was perfor med. Two views. COMPAR ILONEL: CR XR PORTAB LE CHEST AP from [...] error, please notify us immedi bradfordly at [phone] and return the origin al report to us at the addres s above. Thank- you. amarjit [facility] [address] [place] [address] [place], [address] 12/07/2023 17:00:11 02/15/20 24 02/15/2024 CT imagi ng alen sebastian Name: Kailey Hernandez Unit #: [id number] Loc: ER Orderi ng Provid er: Julissa Thornton Accoun t #: [id number] Status : REG ER Primar y Care [...] the C4-5 levels both anteri stacy and rug inspector iorly partia l fusion of the C4 and 5 verteb ral bodies as well as the rug inspector ior osseou s elemen ts includ ing the bilate ral facet joints at this level. Other disc spaces exhibi t normal height and other facet joints appear unrema rkable . Calcif ic densit y anteri or to the lower odonto id is unchan ged from [facility] er 2022 No signif icant osseou s [...] the addres s above. Thank- you. amarjit [facility] [address] [place], [address] 02/15/2024 12:23:56 02/15/20 24 02/15/2024 CT imagi ng repor t Patien t Name: Kailey Hernandez Unit #: [id number] Loc: ER Orderi ng Provid er: Julissa Thornton Accoun t #: [id number] Status : REG ER Primar y Care [...] Doll M.D. 1115 Transc ribed By: Sharmila DUNCAN,Edgar bianca 1115 This is privil eged, confid ential inform ation intend ed only for the provid er named. Any use or distri bution by any person other than this provid er is strict ly prohib ited. If you receiv e this report in error, please notify us immedi ately at [phone] and return the origin al report to us at the addres s above. Thank- you. amarjit [facility] [address] [place], [address] 02/15/2024 12:23:56 02/15/20 24 02/15/2024 ultra sound imagi ng repor t Patien t Name: Kailey Hernandez Unit #: [id number] Loc: ER Orderi ng Provid er: Julissa Thornton Accoun t #: [id number] Status : REG ER Primar y Care [...] for compar lionel FINDIN GS: The left senior internet sales consultant al jugula r, axilla ry, subcla vian, [...] the addres s above. Thank- you. amarjit [facility] [address], [place], [address] 02/15/2024 14:16:11 02/15/20 24 02/15/2024 CT imagi amanda sebastian Name: Kailey Hernandez Unit #: [id number] Loc: ER Tim patel Provid er: Julissa Thornton Accoun t #: [id number] Status : REG ER Primar y Care [...] in the distal abdomi nal aorta and senior internet sales consultant al iliac arteri es. Pulmon yamilet arteri [...] facili ty are submit tarsha to the [facility] al Radiol ogy Data Regist ry (NRDR) Dose Index Regist ry (DIR) with the [place] of Radiol ogy (ACR). RADIAT ION OPTIMI ZATION : [facility] at least one of these [...] the addres s above. Thank- you. amarjit [facility] [address] , [place], [address] 02/15/2024 14:49:16 Result Notes None recorded. Problems Name Problem SNOMED Code Status Onset Date Resolution Date Notes Provider Name and Address Organization Details Recorded Time Hearing loss 31081126 Active 201501/08/20 23 - Comments only - Navin Pittman RPA - Bilatera l, left greater than right. ENT NAVIN PITTMAN PA-C [address], [place], [address] , [place] - [facility]. 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 Problem Code: E78.5; Problem Code Type: ICD-10; Not Available [facility] 3 05:05:04 Polyneur opathy 60876975 Active 2015 Problem Code: G62.9; Problem Code Type: ICD-10; Not Available [facility] 3 05:05:04 Chronic kidney disease stage 1 483298565 Active 2015 Problem Code: N18.1; Problem Code Type: ICD-10; Not Available [facility] 3 05:05:04 Pain in left foot 32828270795 9107 Completed 201503/28/2016 Problem Code: M79.672; Problem Code Type: ICD-10; Not Available [facility] 3 05:05:04 Pelvic and perineal pain 882906834 Completed 201604/06/2017 Problem Code: R10.2; Problem Code Type: ICD-10; [address], [place], [address] , [facility] 4 12:48:28 Mild intermit tent asthma 838978828 Active 2018 Problem Code: J45.20; Problem Code Type: ICD-10; Not Available [facility] 3 05:05:04 Gastroes ophageal reflux disease without esophagi tis 812800133 Active 2020 Problem Code: K21.9; Problem Code Type: ICD-10; Not Available [facility] 3 05:05:05 Viral screenin g Completed 202101/04/2022 Problem Code: Z11.59; Problem Code Type: ICD-10; Not Available [facility] 3 05:05:05 Atherosc lerosis of coronary artery without angina pectoris 83398884963 4103 Active 202103/09/20 23 - Comments only - Navin Zain RPA - STEMI January 2022 with stenting x 2 of RCA. complete d one year of DAPT NAVIN PITTMAN PA-C [address], [place], [address] , [facility] 4 12:47:18 Altered mental status 753759467 Completed 202104/22/2022 Problem Code: R41.82; Problem Code Type: ICD-10; Not Available [facility] 3 05:05:05 Syncope and collapse 199859481 Active 202106/11/20 22 - Comments only - Navin Pittman RPA - recurren t syncope thought to be secondar y to hypoglyc emic episodes . NAVIN PITTMAN PA-C [address], [place], [address] , [facility] 4 12:49:32 Hypergly cemia due to type 1 diabetes mellitus 47675147922 9101 Completed 201504/29/2023 Problem Code: E10.65; Problem Code Type: ICD-10; Not Available [facility] 3 05:05:09 Hyperkal emia 85393283 Completed 201510/09/2016 Problem Code: E87.5; Problem Code Type: ICD-10; Not Available [facility] 3 05:05:10 Endocrin e/[place] lic screenin g Completed 201801/15/2020 Problem Code: Z13.29; Problem Code Type: ICD-10; Not Available [facility] 3 05:05:12 Vaginal bleeding 334011484 Completed 201510/09/2016 Not Available [facility] 3 05:05:12 Hemochro matosis 667142841 Completed 201510/09/2016 Problem Code: E83.119; Problem Code Type: ICD-10; Not Available [facility] 3 05:05:12 Constipa tion 05106551 Completed 201801/15/2020 Problem Code: K59.00; Problem Code Type: ICD-10; Not Available [facility] 3 05:05:14 Disorder of urinary bladder 85222366 Completed 201801/15/2020 Problem Code: N32.89; Problem Code Type: ICD-10; Not Available [facility] 3 05:05:15 Cellulit is of right lower limb 38458074490 309549 Completed 202106/11/2022 Problem Code: L03.115; Problem Code Type: ICD-10; Not Available [facility] 3 05:05:17 Adult health examinat ion Completed 202005/21/2021 Problem Code: Z00.00; Problem Code Type: ICD-10; Not Available [facility] 3 05:05:21 Abdomina l pain 34863696 Completed 201805/21/2021 Problem Code: R10.9; Problem Code Type: ICD-10; Not Available [facility] 3 05:05:22 History of respirat ory disease 857202756 Completed 201801/15/2020 Problem Code: Z87.09; Problem Code Type: ICD-10; Not Available [facility] 3 05:05:25 HIV screenin g Completed 202106/11/2022 Problem Code: Z11.4; Problem Code Type: ICD-10; Not Available [facility] 3 05:05:26 Breast composit ion 192012044 Completed 201505/21/2021 Not Available [facility] 3 05:05:27 Impingem ent syndrome of right shoulder region 51738601137 9102 Completed 201905/21/2021 Problem Code: M75.41; Problem Code Type: ICD-10; Not Available [facility] 3 05:05:28 Blood chemistr y outside referenc e range 200639071 Completed 202109/09/2022 Problem Code: R79.89; Problem Code Type: ICD-10; Not Available [facility] 3 05:05:29 Finding of contents of vagina 585170889 Completed 201510/09/2016 Not Available [facility] 05:05:29 Type 1 diabetes mellitus 23994941 Active [address], [place], [address] , [facility] 13:22:10 Notes:*Problem Name: Visual acuity, decreased, left eye *Problem Status: active *Comments: *Problem Code: H54.52 *Problem Code Type: ICD-10 *Note Date: 09/27/2015 Problem Notes None recorded. Procedures Surgical History None recorded. Imaging Results Imaging Date Name Status LastModified by Organization Details LastModified Time 07/05/2023 electrocardiogram completed [email or web address] [place] [address] [place], [address] 07/06/2023 16:20:18 07/05/2023 vrad report completed [id number] [place] [address] [place], [address] 07/06/2023 16:20:17 07/05/2023 vrad report completed [email or web address] [place] [address] [place], [address] 07/06/2023 16:20:19 07/05/2023 ED visit note completed [id number] [place] [address] [place], [address] 07/06/2023 16:20:17 07/05/2023 CT imaging report completed amarjit [address] [place], [address] 07/06/2023 16:20:20 07/05/2023 CT imaging report completed amarjit [address] [place], [address] 07/06/2023 16:20:20 07/05/2023 electrocardiogram completed [id number] [place] [address] [place], [address] 07/06/2023 16:20:18 08/21/2023 electrocardiogram completed amarjit [address] [place], [address] 08/24/2023 07:32:07 08/21/2023 ED visit note completed amarjit [address] [place], [address] 08/24/2023 07:32:07 08/22/2023 ED progress note completed amarjit [place] [address] [place], [address] 08/24/2023 07:32:07 08/21/2023 electrocardiogram completed amarjit [address] [place], [address] 08/28/2023 14:30:56 12/07/2023 x-ray imaging report completed [id number] No [email or web address] [place], [address] 12/07/2023 17:00:11 02/15/2024 CT imaging report completed [email or web address] [place] [address] [place], [address] 02/15/2024 12:23:56 02/15/2024 CT imaging report completed [id number] [place] [address] [place], [address] 02/15/2024 12:23:56 02/15/2024 ultrasound imaging report completed [address] [place], [address] 02/15/2024 14:16:11 02/15/2024 CT imaging report completed [address] [place], [address] 02/15/2024 14:49:16 Procedure Notes None recorded. Medical [...] Updated DateTime 3 161.925 cm 22.5 kg/m2 21164.7 3 g 98.1 [degF] 16 /min 80 /min 94 mm[Hg] 50 mm[Hg] FELICIANO MUNGUIA RN [facility] 3 10:24:47 Date Recorded Body height Body mass index (BMI) Body weight Body temperature Respiratory rate Heart rate Systolic blood pressure Diastolic blood pressure Provider Name and Address Organization Details Last Updated DateTime 4 161.92 cm 22.5 kg/m2 50049.0 1 g 98.1 [degF] 16 /min 76 /min 90 mm[Hg] 46 mm[Hg] FELICIANO MUNGUIA RN [facility] 4 09:31:55 Date Recorded Body height Body mass index (BMI) Body weight Body temperature Oxygen saturation Oxygen saturation in Arterial blood by Pulse oximetry Heart rate Systolic blood pressure Diastolic blood pressure Provider Name and Address Organization Details Last Updated DateTime 4 161.92 cm 22.7 kg/m2 79506.6 g 98.6 [degF] 100 % 100 % 80 /min 104 mm[Hg] 50 mm[Hg] RAISA ARELLANO RN [facility] 4 10:07:23 Social History Question Answer Notes LastModified by Organizat ion Details LastModified Time Tobacco Smoking Status Never Smoker FELICIANO MUNGUIA RN null, [facility] 06/17/2023 10:29:17 Date Care Plan Printed: 10/02/2023 Information not available 10/02/2023 Assigned Ball Points Inspector: Francis Ring RN Information not available 10/02/2023 Is [facility], [facility] The Lead Ball Points Inspector? Yes Information not available 10/02/2023 Level Of [...] No Informa tion not available 10/02/2023 Community Banquet Houseperson Yes Information not available 10/02/2023 Dental Services No Informati on not available 10/02/2023 Diabetes Education Yes Information not available 10/02/2023 Food Resources Yes Informatio n not available 10/02/2023 Fuel Assistance No Informati on not available 10/02/2023 Hospice No Information not available 10/02/2023 Housing Yes Information not available 12/22/2023 Insurance Enrollment No Information not available 10/02/2023 Medical Information Specialist Care No Informatio n not available 10/02/2023 Meals On Wheels No Informati on not available 10/02/2023 Medication Assistance No Information not available 10/02/2023 Physical Activity Programs No Information not available 10/02/2023 Shelter No Informati on not available 10/02/2023 Social [...] Not Interested Information not available 10/02/2023 Health Corduroy Cutter Operator For HTN Control No Information not available 10/02/2023 Tobacco Cessation No Informa tion not available 10/02/2023 Weight Loss Program No Information not available 10/02/2023 WRAP No Information not available 10/02/2023 AHS (Paper Pattern Folder) No Information not available 10/02/2023 Adult Protective Services No Information not available 10/02/2023 BAART No Information not available 10/02/2023 Community Behavioral Services No Information not available 10/02/2023 Community Restorative Justice No Information not available 10/02/2023 DCF No Information not available 10/02/2023 Department Of Labor No Information not available 10/02/2023 Economic Services No Informa tion not available 10/02/2023 EMS No Information not available 10/02/2023 [place] [facility] No Information not available 10/02/2023 [employer] No Information not available 10/02/2023 [facility] No Information not available 10/02/2023 [...] 10/02/2023 [facility] No Information not available 10/02/2023 [place] [facility] No Information not available 10/02/2023 Properties Supervisor On Aging No Informat ion not available 10/02/2023 Designated Agency No Informa tion not available 10/02/2023 Home Health Agency No Information not available 10/02/2023 Providers Yes Information not available 10/02/2023 [facility] No Information not available 10/02/2023 Other [...] Td(adult) unspecified formulation 10/09/2014 completed Not Available [facility] 06/12/2023 06:33:17 Influenza, split virus, trivalent, preservative 04/16/2016 completed Not Available [facility] 06/12/2023 06:33:17 Influenza, split virus, quadrivalent, PF 05/21/2021 completed Not Available [facility] 06/12/2023 06:33:17 Influenza, split virus, quadrivalent, preservative 05/17/2018 completed Not Available [facility] 06/12/2023 06:33:17 SARS-COV-2 (COVID-19) vaccine, UNSPECIFIED 08/09/2021 completed Not Available [facility] 06/12/2023 06:33:17 SARS-COV-2 (COVID-19) vaccine, UNSPECIFIED 12/17/2020 completed Not Available [facility] 06/12/2023 06:33:17 SARS-COV-2 (COVID-19) vaccine, UNSPECIFIED 01/07/2021 completed Not Available [facility] 06/12/2023 06:33:18 pneumococcal polysaccharide PPV23 12/22/2012 completed Not Available [facility] 2022 06:33:18 influenza, unspecified formulation 05/23/2019 completed Not Available [facility] 06/12/2023 06:33:18 Td(adult) unspecified formulation 10/09/2014 completed FELICIANO MUNGUIA RN [facility], [place] - [facility] 09/22/2023 14:43:22 Past Encounters Encounter ID Performer Location Encounter Start Date Encounter Closed Date Diagnosis/Indication Diagnosis SNOMED-CT Code Diagnosis ICD10 Code [id number] NAVIN PITTMAN PA-C [facility] [address] [place] [address] 06/17/2023 09:40:59 06/17/2023 10:57:50 Atherosclerosis of coronary artery without angina pectoris 8697466775 04706 I25.10 Chronic ki dney disease stage 1 210867629 N18.1 Hyperlipidemia 50519290 E78.5 Type 1 tio betes mellitus 29094727 E10.8 [id number] NAVIN PITTMAN PA-C [facility] [address] [place] [address] 09/25/2023 09:17:41 09/25/2023 10:04:19 Atherosclerosis of coronary artery without angina pectoris 4462116994 05793 I25.10 Chronic ki dney disease stage 1 426950597 N18.1 Type 1 tio betes mellitus 91403023 E10.8 [id number] NAVIN PITTMAN PA-C [facility] [address] [place] [address] 12/22/2023 09:20:52 12/22/2023 10:59:47 Atherosclerosis of coronary artery without angina pectoris 9356198172 89884 I25.10 Hyperlipidemia 14223099 E78.5 Type 1 tio betes mellitus 49706643 E10.8 Pain of left heel 190370 3317 772404 M79.672 Goals Section Goal Description Status Start [...] ID Guarantor Name 06/17/2023 1 [place] [facility] Kailey Hernandez [id number] 1 Kailey Hernandez 06/17/2023 2 [facility] (MEDICAID) Kailey Hernandez [id number] Kailey Hernandez 09/25/2023 1 [place] [facility] Kailey Hernandez [id number] 1 Kailey Hernandez 09/25/2023 2 [facility] (MEDICAID) Kailey Hernandez [id number] Kailey Hernandez 12/22/2023 1 [place] [facility] Kailey Hernandez [id number] 1 Kailey Hernandez 12/22/2023 2 [facility] (MEDICAID) Kailey Hernandez [id number] Kailey Hernandez Notes Date Note Type Note Provider Name and Address Organization Details Recorded Time 06/17/2023 text/html HPI Notes: Kailey is here for followup of cad and diabetes. She has been feeling well. No recent illnesses. Less frequent hypoglycemic episodes but did experience some of these when she tried titrating basaglar above 20 units [address], [place], [address], [facility] 06/17/2023 13:24:22 09/25/2023 text/html HPI Notes: Jessy is here for follow-up of diabetes and coronary artery disease. She has been feeling at her baseline health. No recent significant hypoglycemic episodes. She has been referred by ENT to [facility] for consideration of left ear surgery to restore some hearing. Has upcoming follow-up with cardiology. Presented to the ER for a stomach bug last month. This has resolved. [address], [place], [address], [facility]. 09/25/2023 11:15:19 12/22/2023 text/html HPI Notes: Kailey is here for follow-up of type 1 diabetes, hyperlipidemia, and hypertension. She has been doing fairly well. She was recently seen in the ER for chest pain with unremarkable cardiac workup. She has not had any recurrence of the chest pain since. She has upcoming cardiology follow-up. It has been 2 years since her CO. Her blood sugars have been doing okay. Still gets occasional lows. It drops precipitously. Her significant other admits that he likely overcompensates for these hypoglycemic episodes. Currently having some left heel pain. Painful to put pressure on her heel. Her auto porter knows about this. [address], [place], [address], [facility] [facility]. 12/22/2023 12:27:24 OBGyn Episode No OBEpisode recorded.
--- OUTSIDE RECORDS SUMMARY | 2024-04-08 00:39 | XMS_ITS | Encounter Summary ---
Author Organization [facility] Address [facility] [place] [address] Care Team Providers Care Director Of Infection Prevention Name Role Phone Felisha Juan APRN Primary Care Provider + [phone] Encounter Details Date Type Department Care Team (Late st Contact Info) Description 01/03/2022 Notes Only Cardiology [facility] [place] [address] Madi Briceño MD [facility] [place] [address] Social History Tobacco Use Types Packs/Day Years [...] 8:25 PM Hospital to which patient presented: [facility] If Hospital to which patient presented= [facility]: ED Walk In Date and Time of [...] DBP: 53 Killip class: I (no rales) ALEAXNDRIA Risk Score for STEMI Age: <65 years [...] and inferior stemi STEMI Alert called: Yes Pit Boss Activated by: Civil Engineering Designer Initial Disposition: Admit Pit Boss documented in this encounter Plan of Treatment Not on file documented as of this encounter Visit Diagnoses Not on filedocumented in this encounter Care Teams Director Of Infection Prevention Relationship Specialty Start Date End Date Felisha Juan, DEMETRIS [address] [place] [address] PCP - General Family Medicine 10/29/15 01/29/22 documented as of this encounter
--- OUTSIDE RECORDS SUMMARY | 2024-04-08 00:39 | XMS_ITS | Encounter Summary ---
Author Organization [facility] Address [facility] [place] [address] Care Team Providers Care Fire Manager Name Role Phone Felisha Juan APRN Primary Care Provider + [phone] Encounter Details Date Type Department Care Team (Late st Contact Info) Description 01/12/2022 Telephone Cardiology at [address] [place] [id number] Irving Alexander MD [facility] [place] [address] Social History Tobacco Use Types Packs/Day Years [...] PM Referring Provider: Dr. Wilcox Patient Location: [facility] Presenting Symptoms per OSH: Kailey Hernandez is a 46 y.o. 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 She presented recently to [facility] with inferior STEMI and is now s/p PCI with TRACIE x2 to RCA. Discharged on 01/06/22. Presents to [facility] with fatigue. - She feels fatigue [...] any acute changes due to her recent MA. She may have some side effects from [...] on filedocumented in this encounter Care Teams Fire Manager Relationship Specialty Start Date End Date Felisha Juan, DEMETRIS [address] [place] [address] PCP - General Family Medicine 10/29/15 01/29/22 documented as of this encounter
--- OUTSIDE RECORDS SUMMARY | 2024-04-08 00:39 | XMS_ITS | Encounter Summary ---
Author Organization [facility] [place] [address] Care Team Providers Care Director Global Development Name Role Phone Jose Pittman Primary Care Provider [phone] Reason for Referral * Consultation (Routine) - Closed Specialty Diagnoses / Procedures Referred By Chip t Referred To Contact Cardiology Diagnoses Elevated troponin Elevated troponin Giselle Cervantes APRN [address] [place] [address] [facility] [address] [place] [phone] Referral ID Status Reason Start Date Expiration Date V isits Requested Visits Authorized [id number] Closed Consult, Test & Treat PCP Updated and/or Approved 01/30/2022 01/30/2023 6 6 Encounter Details Date Type Department Care Team (Late st Contact Info) Description 01/30/2022 Transcribe Orders eDH Incoming Referrals [phone] Giselle Cervantes APRN [address] [place], [place] [id number] Elevated troponin Social History Tobacco Use Types [...] chemistry documented in this encounter Care Teams Director Global Development Relationship Specialty Start Date End Date Jose Pittman PA [address] [place] [address] PCP - General Internal Medicine 01/30/22 04/01/24 documented as of this encounter
--- OUTSIDE RECORDS SUMMARY | 2024-04-08 00:39 | XMS_ITS | Encounter Summary ---
Author Organization [facility] Address [facility] [place] [address] Care Team Providers Care Construction Field Engineer Name Role Phone Jose Pittman Primary Care Provider + [phone] Reason for Referral * Consultation (Routine) - Closed Specialty Diagnoses / Procedures Referred By Chip sebastian Referred To Contact Otolaryngology Diagnoses 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 of right ear Tiffanie Lucero APRN [address] [place] [address] [place] [address] Tj Gray MD [facility] [place] [address] Referral ID Status Reason Start Date Expiration Date V isits Requested Visits Authorized [id number] Closed Consult, Test & Treat PCP Updated and/or Approved 08/05/2023 01/02/2024 6 6 Encounter Details Date Type Department Care Team (Latest Contact Info) Description 08/11/2023 Transcribe Orders eDH Incoming Referrals [phone] Tiffanie Lucero APRN [address] [place] [address] [place], [place] [phone] Mixed conductive and sensorineural hearing loss of [...] ear documented in this encounter Care Teams Construction Field Engineer Relationship Specialty Start Date End Date Jose Pittman PA [address] [place] [address] PCP - General Internal Medicine 01/30/22 04/01/24 documented as of this encounter
--- OUTSIDE RECORDS SUMMARY | 2024-04-08 00:39 | XMS_ITS | Encounter Summary ---
Author Organization [facility] [place] [address] Care Team Providers Care Crane Hoist Or Lift Operator Name Role Phone Felisha Juan APRN Primary Care Provider + [phone] Reason for Visit * Auth/Cert Specialty Diagnoses / Procedures Referred By Chip sebastian Referred To Contact Diagnoses STEMI (ST elevation myocardial infarction) STEMI Procedures CARDIAC CATHETERIZATION Ray Salomon MD [facility] [place] [address] [facility] Referral ID Status Reason Start Date Expiration Date Visits Re quested Visits Authorized [id number] 1 1 Encounter Details Date Type Department Care Team (Late st Contact Info) Description 01/03/2022 10:10 PM EDT - 01/03/2022 11:32 PM EDT Surgery [place] [address] Moi Ledezma MD [facility] [place] [address] CARDIAC CATHETERIZATION Social History Tobacco Use Types [...] Afua Rosales Patient Age: 46 y.o. Language: Gambian Race: White Ethnicity: Not nor Admit date: [...] will need follow up with cardiology at [facility] as well as to establish care. Patient [...] made her nauseous. ?? On arrival to [facility], she was afebrile, BP was 95/54, she was oxygenating normally on room air. She was infused with 1L IV fluids, given 25 mg of aspirin (per [facility] discharge note). The on-call product specialist at [facility] was contacted, she was given 300 mg of Plavix, aspirin, heparin with bolus and drip. She was also given tecteplase 35mg. ?? 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 Activity level: - No heavy lifting (more [...] none Follow up Appointments: No future appointments. Carbonation Tester: You will be contacted by [facility] to schedule a cardiology appointment to establish care. PCP: Felisha Juan APRN at [phone] Your Inpatient Doctor(s) at [facility]: Ray Salomon MD - Attending physician Cam David MD - School Occupational Therapist physician Your Primary Care Provider: Felisha Juan APRN [address] [facility] [address] For questions regarding issues relating to your hospitalization on the Hospital Medicine Service, please contact your inpatient physician through the [facility] Investigative Reporter [phone]. Issues after hours and on weekends will be handled by the Hospitalist staff on-call. General Instructions None Future Appointments and Orders Future Orders Complete By Expires Referral to Cardiac Rehab [MFH120 Custom] As directed Process Instructions: If no progress note charted, please enter Clinical details in comments. Scheduling Instructions: Questions: My question or request is: cardiac rehab referral s/p STEMI, she would benefit from location close to [facility] Referral to Cardiology [REF12 Custom] As directed Process Instructions: If no progress note charted, please enter Clinical details in comments. Scheduling Instructions: Questions: My question or request is: establish care after inferoposterior stemi Provider Contact Information: [address] / [facility] [address] Discharge References/Attachments: Discharge References/Attachments None Associated attestation - Ray Salomon MD - 01/06/2022 1:51 PM EDT Dear Colleagues, I was the attending at the time of discharge. Please call or email me if you have questions. Ray Salomon MD, [facility] [email or web address] [phone] documented in this encounter Discharge Instructions * [...] for you to establish care with a database administrator at [facility] as well as a referral to cardiac [...] appointments: During 8am-5pm Thursday through Thursday call [phone] to speak with a nurse in the cardiology clinic All other times call [phone] and ask to speak to the product specialist telephone service adviser. Activity level: - No heavy lifting (more [...] none Follow up Appointments: No future appointments. Carbonation Tester: You will be contacted by [facility] to schedule a cardiology appointment to establish care. PCP: Felisha Juan APRN at [phone] Your Inpatient Doctor(s) at [facility]: Ray Salomon MD - Attending physician Cam David MD - School Occupational Therapist physician Your Primary Care Provider: Felisha Juan APRN [address] [facility] [address] For questions regarding issues relating to your hospitalization on the Hospital Medicine Service, please contact your inpatient physician through the [facility] Investigative Reporter [phone]. Issues after hours and on weekends will [...] detail Patient transport has been arranged through [facility]. Nilda will be arriving in a [...] CHO control level 2 Elba Pavon APRN [facility] Endocrinology Diabetes Management Pager [phone] 20 minutes of this 35 minute visit [...] Cuff Relevant medications: noted Last Bowel Movement: (DELINQUENCY PREVENTION SOCIAL WORKER) Admit Weight: 66.1 kg Estimated body mass index is 22.86 kg/m?? as calculated from the following: Height as of this encounter: 165.1 cm (5' 5). Weight as of this encounter: 62.3 kg (137 lb 5.6 oz). [place] Body Weight: 125 lbs / 56.7 kg [...] up while inpatient Ph[address]ong [address] RD Pager #:[phone] * Ray Salomon MD - 01/06/2022 6:54 AM EDT Images from the original note were not included. Inpatient Cardiology Progress Note Patient info: Name: Afua Rosales : 1975 PCP: Felisha Juan APRN PCP phone number: [phone] Date of Admission: 01/03/2022 ( Hospital Day 3 days ) Attending:Ray Salomon MD ID: Afua Rosales is a 46 y.o. 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 She presents with inferior STEMI and is now s/p PCI with TRACIE x2 to RCA. Hospital Day3 24 Hour Events/Subjective: - GUSTAVO ROJAS - pharmacy is [facility] in [facility], BF can pick pulling machine tender at 6 pm when neighbor's car becomes [...] Procedure Component Value Units Date/Time COVID-19 PCR [[id number]] Collected: 01/04/22 0050 Lab Status: Final result [...] diagnosis of COVID-19 is performed using the Hoseannaa COVID-19 Direct Assay by [employer]. as authorized by the FDA issued Emergency [...] Department of Pathology and Laboratory Medicine at [facility], certified under the Clinical Laboratory Improvement [...] fact sheets at the following FDA website: https://www.fda.gov/medical-devices/adirgntmiok-omkjtlr-8806-vdglf-77-mvcsygxvd- gfl-aiwbkxhqolqono-vzwvflq-devices/kxtdm-wvbbkxltzzm-gqkt SARS-CoV-2 Source SUPERVISOR KEYMODULE ASSEMBLY Swab Imaging: No results found for this [...] David MD Internal Medicine, PGY-1 Cardiology, S2 ([id number]) 01/06/22 Cardiology Staff Addendum Afua Rosales is [...] Sky ? Lucia Alexander Endocrinology Fellow Pager [phone] I have seen the patient and reviewed [...] PCP: Felisha Juan APRN PCP phone number: [phone] Date of Admission: 01/03/2022 ( Hospital Day [...] Procedure Component Value Units Date/Time COVID-19 PCR [[id number]] Collected: 01/04/22 005 Lab Status: Final result [...] using the Simplexa COVID-19 Direct Assay by [employer]. as authorized by the FDA issued Emergency [...] Department of Pathology and Laboratory Medicine at [facility], certified under the Clinical Laboratory Improvement [...] fact sheets at the following FDA website: https://www.fda.gov/medical-devices/pqcxsvwmbok-inyivby-3869-dlesm-06-cvurwzzff- nhk-iomuzyyaloknql-jmtckvt-devices/rkvyp-irbemjjyayu-zglg SARS-CoV-2 Source SUPERVISOR [employer]SEMBLY Swab Imaging: No results found for this [...] Clark MD - 01/04/2022 3:25 AM EDT [facility] TeleICU Initial Assessment Note I established audio/visual communication with the patient's room, reviewed the eDH. History and Assessment: 46 y.o. 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 STEMIalert activated and went to earth science laboratory technician where proximal and mid RCA [...] injection 5,000 Units, 5,000 Units, Subcutaneous, Q8H [facility], Sumanth Barnard MD, 5,000 Units at 01/04/22114 [...] PCP: Felisha Juan APRN PCP phone number: [phone] Date of Admission: 01/03/2022 ( Hospital Day [...] previously made her nauseous. On arrival to [facility], she was afebrile, BP was 95/54, she was oxygenating normally on room air. She was infused with 1L IV fluids, given 25 mg of aspirin (per [facility] discharge note). The on-call product specialist at [facility] was contacted, she was given 300 mg of Plavix, aspirin, heparin with bolus and drip. She was also given tecteplase 35mg. On arrival to [facility] earth science laboratory technician, she underwent LHC and received [...] COVID test: Lab Results Component Value Date [id number] Not Detected 01/04/2022 Past medical History: No past medical history on file. Hospitalizations Within the Past 30 Days: no previous admission in last 30 days Current Decision-Making Capacity: Self Advance Care Planning: Attempt Cardiopulmonary Resuscitation - Inpatient <no information> -Advanced Directive: No, need to discuss If AD's have not been completed daughter would be surrogate decision maker per [place] surrogate decision making law. (Only good for 180 days) Any patient receiving care at [facility] must abide by [place] law. The hierarchy for surrogate decision making [...] (i) The agent with financial power of commercial litigation attorney or a conservator appointed in accordance [...] [address] [facility] [address] Social & Family Supports: All names listed below confirmed with patient as current and correct Extended Emergency Contact Information Primary Emergency Contact: Delano Reyna [facility] Mobile Relation: Friend Current Care [...] MEDICAID [place] Prescription Coverage: Yes Preferred Pharmacy: [id number] - [place], [place] - [address] [facility] [address] [facility] [address] [facility] - [facility], [place] - [address] [facility] [address] [facility] [address] [place] Status: Patient is a : No Primary Care Provider: Felisha Juan APRN [phone] Patient/Caregiver Goals of Treatment: To go home Potential Needs for Transition of Care: none Agency Referrals: None anticipated Transportation: other (see comments) (Needs ride home generally take the free transfer bus in her home town for groceries) Transportation Anticipated: health plan transportation Concerns to be Addressed: discharge planning Assessment: Patient is admitted to *[facility] service for STEMI Plan: Home today with a medicaid ride / RS to confirm when ride is obtained A member of the Care Management team will continue to monitor progress, follow for continuity of care and assist with transition of care planning. Office of Care Management Surgery Team Plastic Cnc Machine Operator [email or web address] Pager [phone] * Consult Note - Mark Sky [...] management and to provide a review of [facility] diabetescare. Diabetes History: Afua Rosales has had [...] meal) 4. Carb controlled diet level 2 retirement diabetes care: Medications - Outpatient treatment regimen recommendations pending based on the hospital course. Monitoring - continue BG check q4 hours for now Diet - low fat/low carb diet Exercise - weight-bearing exercise 30 min/day, as tolerated Thank you for allowing us to provide care for your patient. Discussed with Dr. Asya Alexander Endocrinology Fellow Pager [phone] I have seen the patient and reviewed [...] 01/04/2022 1:44 AM EDT RAPID COVID-19 PCR ([facility]) Routine 01/04/2022 12:50 AM EDT HEMOGRAM [...] Glucose, POC 197 65 - 199 mg/dL [facility] Comment: Supplemental ranges: <140 mg/dL before meals <180 mg/dL all other times of the day Blood 01/06/2022 2:32 PM EDT 01/06/2022 2:32 PM EDT Ray Salomon MD POINT OF CARE TEST O MUSHTAQ Performing Organization Address City/[facility]/ZIP Co de Phone Number [facility] [place] [address] * (ABNORMAL) POCT Glucose (01/06/2022 11:47 AM EDT) Glucose, POC 299(H) 65 - 199 mg/dL [facility] Comment: Supplemental ranges: <140 mg/dL before meals <180 mg/dL all other times of the day Blood 01/06/2022 11:4 7 AM EDT 01/06/2022 11:47 AM EDT Ray Salomon MD POINT OF CARE TEST O MUSHTAQ [facility] [place] [address] * POCT Glucose (01/06/2022 8:01 AM EDT) Glucose, POC 142 65 - 199 mg/dL [facility] Comment: Supplemental ranges: <140 mg/dL before meals <180 mg/dL all other times of the day Blood 01/06/2022 8:01 AM EDT 01/06/2022 8:01 AM EDT Ray Salomon MD POINT OF CARE TEST O RDERABLES [facility] [place] [address] * Differential, Automated (01/06/2022 4:20 AM EDT) [facility] Neutrophil % 51.9 % [facility] Neutrophil Absolute 3.34 1.70 - 6.10 x10(3)/[facility] Lymph % 32.5 % [facility] Lymphocytes Abs 2.1 0.9 - 3.2 x10(3)/[facility] Monocyte % 13.7 % [facility] Monocyte Abs 0.9 0.3 - 0.9 x10(3)/[facility] Eos % 1.1 % [facility] Eosinophils Abs 0.1 0.0 - 0.4 x10(3)/[facility] Basophil % 0.6 % [facility] Baso Absolute 0.0 0.0 - 0.1 x10(3)/[facility] Immature Gran % 0.20 % [facility] Comment: Immature granulocytes(IG's)percentage and absolute count will include metamyelocytes, myelocytes, and promyelocytes. Blood smears from CBCs yielding IG's will be scanned manually for concordance. If this scan disagrees with the automated IG or if promyelocytes are noted, a manual differential will be performed. Immature Gran Absolute 0.01 0.00 - 0.04 x10(3)/[facility] Blood 01/06/2022 4:20 AM EDT 01/06/2022 4:39 AM EDT Narrative Resulting Agency Comment Spec In Lab Cam David MD HEMATOLOGY ORDERABLE S [facility] [place] [address] * (ABNORMAL) Hemogram (01/06/2022 4:20 AM EDT) White Blood Cell 6.4 4.0 - 9.5 x10(3)/[facility] Red Blood Cell 3.86(L) 4.00 - 5.21 x10(6)/mc L [facility] Hemoglobin 12.4 11.7 - 15.5 g/dL [facility] Hematocrit 36.0 35.7 - 45.8 % [facility] Mean Cell Volume 93.3 82.6 - 94.4 fL [facility] Mean Cell Hemoglobin 32.1(H) 27.1 - 32.0 pg [facility] Mean Cell Hemoglobin Concentration 34.4 31.7 - 35.0 g/dL [facility] Platelet 177 145 - 357 x10(3)/mc L [facility] RDW Standard Deviation 42.0 37.0 - 46.0 [facility] RDW coefficient of variation 12.1 11.5 - 14.1 % [facility] Mean Platelet Volume 10.0 7.6 - 12.9 fL [facility] NRBC% auto 0.0 % [facility] NRBC Absolute 0.000 0.000 - 0.000 x10(3)/ L [facility] Blood 01/06/2022 4:20 AM EDT 01/06/2022 4:39 AM EDT Narrative Resulting Agency Comment Spec In Lab Cam David MD HEMATOLOGY ORDERABLE S [facility] [place] [address] * Basic Metabolic Panel (non-fasting) (01/06/2022 4:20 AM EDT) Glucose 123 65 - 199 mg/dL [facility] Comment:Diabetes: >=200 mg/d L plus symptoms Blood Urea Nitrogen 13 8 - 18 mg/dL [facility] Creatinine 0.77 0.70 - 1.20 mg/dL [facility] Sodium 137 135 - 145 mmol/L [facility] Potassium 4.0 3.5 - 5.0 mmol/L [facility] Comment: Please note: ??Patients with WBC >100,000 may have falsely elevated Potassium levels. ??For accurate Potassium quantification in these patients send serum separator tube (gold top) for subsequent determinations. ??Contact the Clinical Chemistry Laboratory if there are any questions. Chloride 102 98 - 107 mmol/L [facility] Carbon Dioxide 26 22 - 31 mmol/L [facility] Anion Gap 9 5 - 15 mmol/L [facility] Calcium 9.2 8.5 - 10.5 mg/dL [facility] Est Glomerular Filtration Rate 92 >=60 mL/min/1. 73 m?? [facility] Comment: This patient? s estimated glomerular [...] Salomon MD CHEMISTRY ORDERABLES Performing Organization Address [facility]/ZIP Co de Phone Number [facility] [place] [address] * POCT Glucose (01/06/2022 3:46 AM EDT) Glucose, POC 129 65 - 199 mg/dL [facility] Comment: Supplemental ranges: <140 mg/dL before meals <180 mg/dL all other times of the day Blood 01/06/2022 3:46 AM EDT 01/06/2022 3:46 AM EDT Ray Salomon MD POINT OF CARE TEST O RDERABLES Performing Organization Address [facility] Co de Phone Number [facility] [place] [address] * POCT Glucose (01/06/2022 12:06 AM EDT) Glucose, POC 125 65 - 199 mg/dL [facility] Comment: Supplemental ranges: <140 mg/dL before meals <180 mg/dL all other times of the day Blood 01/06/2022 12:0 6 AM EDT 01/06/2022 12:06 AM EDT Ray Salomon MD POINT OF CARE TEST O MUSHTAQ Performing Organization Address [facility]/ZIP Co de Phone Number [facility] [place] [address] * (ABNORMAL) POCT Glucose (01/05/2022 8:11 PM EDT) Glucose, POC 220(H) 65 - 199 mg/dL [facility] Comment: Supplemental ranges: <140 mg/dL before meals <180 mg/dL all other times of the day Blood 01/05/2022 8:11 PM EDT 01/05/2022 8:11 PM EDT Ray Salomon MD POINT OF CARE TEST O RDERABLES Performing Organization Address City/[facility]/ZIP Co de Phone Number [facility] [place] [address] * POCT Glucose (01/05/2022 6:00 PM EDT) Glucose, POC 190 65 - 199 mg/dL [facility] Comment: Supplemental ranges: <140 mg/dL before meals <180 mg/dL all other times of the day Blood 01/05/2022 6:00 PM EDT 01/05/2022 6:00 PM EDT Ray Salomon MD POINT OF CARE TEST O RDERAFRANKLIN Performing Organization Address [facility] Co de Phone Number [facility] [place] [address] * POCT Glucose (01/05/2022 3:53 PM EDT) Glucose, POC 161 65 - 199 mg/dL [facility] Comment: Supplemental ranges: <140 mg/dL before meals <180 mg/dL all other times of the day Blood 01/05/2022 3:53 PM EDT 01/05/2022 3:53 PM EDT Ray Salomon MD POINT OF CARE TEST O SANDEEPERAFRANKLIN Performing Organization Address City/[facility]/ZIP Co de Phone Number [facility] [place] [address] * (ABNORMAL) Differential, Automated (01/05/2022 11:45 AM EDT) Neutrophil % 65.9 % [facility] Neutrophil Absolute 4.46 1.70 - 6.10 x10(3)/mc L [facility] Lymph % 19.0 % [facility] Lymphocytes Abs 1.3 0.9 - 3.2 x10(3)/mc L [facility] Monocyte % 14.2 % [facility] Monocyte Abs 1.0(H) 0.3 - 0.9 x10(3)/[facility] Eos % 0.1 % [facility] Eosinophils Abs 0.0 0.0 - 0.4 x10(3)/[facility] Basophil % 0.4 % [facility] Baso Absolute 0.0 0.0 - 0.1 x10(3)/[facility] Immature Gran % 0.40 % [facility] Comment: Immature granulocytes(IG's)percentage and absolute count will include metamyelocytes, myelocytes, and promyelocytes. Blood smears from CBCs yielding IG's will be scanned manually for concordance. If this scan disagrees with the automated IG or if promyelocytes are noted, a manual differential will be performed. Immature Gran Absolute 0.03 0.00 - 0.04 x10(3)/[facility] Blood 01/05/2022 11:4 5 AM EDT 01/05/2022 12:08 PM EDT Narrative Resulting Agency Comment Spec In Lab Cam David MD HEMATOLOGY ORDERABLE S [facility] [place] [address] * (ABNORMAL) Hemogram (01/05/2022 11:45 AM EDT) White Blood Cell 6.8 4.0 - 9.5 x10(3)/ L [facility] Red Blood Cell 3.92(L) 4.00 - 5.21 x10(6)/ L [facility] Hemoglobin 12.5 11.7 - 15.5 g/dL [facility] Hematocrit 36.4 35.7 - 45.8 % [facility] Mean Cell Volume 92.9 82.6 - 94.4 fL [facility] Mean Cell Hemoglobin 31.9 27.1 - 32.0 pg [facility] Mean Cell Hemoglobin Concentration 34.3 31.7 - 35.0 g/dL [facility] Platelet 187 145 - 357 x10(3)/mc L [facility] RDW Standard Deviation 41.9 37.0 - 46.0 fL [facility] RDW coefficient of variation 12.3 11.5 - 14.1 % [facility] Mean Platelet Volume 10.4 7.6 - 12.9 fL [facility] NRBC% auto 0.0 % [facility] NRBC Absolute 0.000 0.000 - 0.000 x10(3)/mc L [facility] Blood 01/05/2022 11:4 5 AM EDT 01/05/2022 12:08 PM EDT Narrative Resulting Agency Comment Spec In Lab Cam David MD HEMATOLOGY ORDERABLE S [facility] [place] [address] * Basic Metabolic Panel (non-fasting) (01/05/2022 11:45 AM EDT) Glucose 140 65 - 199 mg/dL [facility] Comment:Diabetes: >=200 mg/d L plus symptoms Blood Urea Nitrogen 10 8 - 18 mg/dL [facility] Creatinine 0.75 0.70 - 1.20 mg/dL [facility] Sodium 137 135 - 145 mmol/L [facility] Potassium 3.9 3.5 - 5.0 mmol/L [facility] Comment: Please note: ??Patients with WBC >100,000 may have falsely elevated Potassium levels. ??For accurate Potassium quantification in these patients send serum separator tube (gold top) for subsequent determinations. ??Contact the Clinical Chemistry Laboratory if there are any questions. Chloride 101 98 - 107 mmol/L [facility] Carbon Dioxide 25 22 - 31 mmol/L [facility] Anion Gap 11 5 - 15 mmol/L [facility] Calcium 8.6 8.5 - 10.5 mg/dL [facility] Est Glomerular Filtration Rate 95 >=60 mL/min/1. 73 m?? [facility] Comment: This patient? s estimated glomerular [...] Salomon MD CHEMISTRY ORDERABLES Performing Organization Address [facility]/ZIP Co de Phone Number [facility] [place] [address] * POCT Glucose (01/05/2022 11:40 AM EDT) [facility] Glucose, POC 148 65 - 199 mg/dL [facility] Comment: Supplemental ranges: <140 mg/dL before meals <180 mg/dL all other times of the day Blood 01/05/2022 11:4 0 AM EDT 01/05/2022 11:40 AM EDT Ray Salomon MD POINT OF CARE TEST O RDERABLES Performing Organization Address City/[facility]/ZIP Co de Phone Number [facility] [place] [address] * EKG 12 Lead (01/05/2022 8:23 AM EDT) Ventricular rate 78 BPM MUSE SYSTEM Atrial Rate 78 BPM MUSE SYSTEM P-R Interval 132 ms MUSE SYSTEM QRS Duration 106 ms MUSE SYSTEM Q-T Interval 364 ms MUSE SYSTEM QTC Calculated (Bezet) 414 ms MUSE SYSTEM Calculated P [place] 78 degrees MUSE SYSTEM Calculated R [place] -65 degrees MUSE SYSTEM Calculated T [place] -33 degrees MUSE SYSTEM INTERPRETATION Normal sinus rhythm Left axis deviation Incomplete right bundle branch block Cannot rule out Inferior infarct , age undetermined Abnormal ECG When compared with ECG of 04-JAN-2022 00:45, Incomplete right bundle branch block is now Present Minimal criteria for Inferior infarct are now Present Confirmed by Storm Lewis ([id number]) on 01/05/2022 3:44:16 PM MUSE SYSTEM 01/05/2022 8:23 AM EDT 01/05/2022 3:44 PM EDT Ray Salomon MD ECG ORDERABLES Performing Organization Address City/[facility]/ZIP Co de Phone Number MUSE SYSTEM * (ABNORMAL) POCT Glucose (01/05/2022 7:43 AM EDT) Glucose, POC 213(H) 65 - 199 mg/dL [facility] Comment: Supplemental ranges: <140 mg/dL before meals <180 mg/dL all other times of the day Blood 01/05/2022 7:43 AM EDT 01/05/2022 7:43 AM EDT Ray Salomon MD POINT OF CARE TEST O RDERABLES Performing Organization Address City/[facility]/ZIP Co de Phone Number [facility] [place] [address] * (ABNORMAL) POCT Glucose (01/05/2022 6:45 AM EDT) Glucose, POC 214(H) 65 - 199 mg/dL [facility] Comment: Supplemental ranges: <140 mg/dL before meals <180 mg/dL all other times of the day Blood 01/05/2022 6:45 AM EDT 01/05/2022 6:45 AM EDT Ray Salomon MD POINT OF CARE TEST O RDERABLES Performing Organization Address City/[facility]/ZIP Co de Phone Number [facility] [place] [address] * POCT Glucose (01/05/2022 5:31 AM EDT) Glucose, POC 89 65 - 199 mg/dL [facility] Comment: Supplemental ranges: <140 mg/dL before meals <180 mg/dL all other times of the day Blood 01/05/2022 5:31 AM EDT 01/05/2022 5:31 AM EDT Ray Salomon MD POINT OF CARE TEST O RDERAFRANKLIN Performing Organization Address [facility] Co de Phone Number [facility] [place] [address] * (ABNORMAL) POCT Glucose (01/05/2022 5:09 AM EDT) Glucose, POC 59(L) 65 - 199 mg/dL [facility] Comment: Supplemental ranges: <140 mg/dL before meals <180 mg/dL all other times of the day Blood 01/05/2022 5:09 AM EDT 01/05/2022 5:09 AM EDT Ray Salomon MD POINT OF CARE TEST O SANDEEPERAFRANKLIN Performing Organization Address [facility] Co de Phone Number [facility] [place] [address] * POCT Glucose (01/05/2022 12:45 AM EDT) Glucose, POC 96 65 - 199 mg/dL [facility] Comment: Supplemental ranges: <140 mg/dL before meals <180 mg/dL all other times of the day Blood 01/05/2022 12:4 5 AM EDT 01/05/2022 12:45 AM EDT Ray Salomon MD POINT OF CARE TEST O RDERABLES Performing Organization Address City/[facility]/ZIP Co de Phone Number [facility] [place] [address] * POCT Glucose (01/04/2022 7:28 PM EDT) Glucose, POC 104 65 - 199 mg/dL [facility] Comment: Supplemental ranges: <140 mg/dL before meals <180 mg/dL all other times of the day Blood 01/04/2022 7:28 PM EDT 01/04/2022 7:28 PM EDT Ray Salomon MD POINT OF CARE TEST O RDERABLES Performing Organization Address [facility] Co de Phone Number [facility] [place] [address] * POCT Glucose (01/04/2022 4:04 PM EDT) Glucose, POC 190 65 - 199 mg/dL [facility] Comment: Supplemental ranges: <140 mg/dL before meals <180 mg/dL all other times of the day Blood 01/04/2022 4:04 PM EDT 01/04/2022 4:04 PM EDT Ray Salomon MD POINT OF CARE TEST O RDERABLES Performing Organization Address City/[facility]/ZIP Co de Phone Number [facility] [place] [address] * POCT Glucose (01/04/2022 12:09 PM EDT) Glucose, POC 157 65 - 199 mg/dL [facility] Comment: Supplemental ranges: <140 mg/dL before meals <180 mg/dL all other times of the day Blood 01/04/2022 12:0 9 PM EDT 01/04/2022 12:09 PM EDT Ray Salomon MD POINT OF CARE TEST O RDERABLES [facility] [address] [facility] [place] [address] * ECHO COMPLETE W CONTRAST (01/04/2022 11:08 AM EDT) EF 60 HEARTLAB SYSTEM Anatomical Region Laterality Modality Cardiac Other 01/04/2022 10:3 3 AM EDT Narrative 01/04/2022 11:25 AM EDT ?[facility] ?[address] ? [place] [address] ?Voice: ?Fax: ? Echocardiogram Report Name: AFUA ROSALES ? Study Date: 01/04/2022 10:33 AM ? Patient Location: [facility] A : 1975 ? Height: 65 in ? Account: [id number] Age: 46 yrs ? Weight: 148 lb Gender: Female ?BSA: 1.7 m2 Ordering Physician: MOI LEDEZMA Referring Physician: MT VALENZUELA Exam Location: [facility]. Interpretation Summary Technically difficult. Left ventricular [...] jet. There is no valve disease. Procedure Complete-43630. Image enhancement Optison was used for left [...] Procedure Note Ray Salomon MD - 01/04/2022 [place] [address] Voice: Fax: Echocardiogram Report Name: AFUA ROSALES Study Date: :33 AM Patient Location: [address] : 1975 Height: 65 in Account: [id number] Age: 46 yrs Weight: 148 lb Gender: Female BSA: 1.7 m2 Ordering Physician: MOI LEDEZMA Referring Physician: MT VALENZUELA Exam Location: [facility]. Interpretation Summary Technically difficult. Left ventricular [...] jet. There is no valve disease. Procedure Complete-[id number]. Image enhancement Optison was used for left [...] Glucose, POC 100 65 - 199 mg/dL [facility] Comment: Supplemental ranges: <140 mg/dL before meals <180 mg/dL all other times of the day Blood 01/04/2022 10:0 5 AM EDT 01/04/2022 10:05 AM EDT Ray Salomon MD POINT OF CARE TEST O RDERABLES [facility] [place] [address] * POCT Glucose (01/04/2022 8:23 AM EDT) Glucose, POC 72 65 - 199 mg/dL [facility] Comment: Supplemental ranges: <140 mg/dL before meals <180 mg/dL all other times of the day Blood 01/04/2022 8:23 AM EDT 01/04/2022 8:23 AM EDT Moi Ledezma MD POINT OF CARE TEST O RDERABLES [facility] [place] [address] * POCT Glucose (01/04/2022 5:03 AM EDT) Glucose, POC 143 65 - 199 mg/dL [facility] Comment: Supplemental ranges: <140 mg/dL before meals <180 mg/dL all other times of the day Blood 01/04/2022 5:03 AM EDT 01/04/2022 5:03 AM EDT Moi Ledezma MD POINT OF CARE TEST O MUSHTAQ Performing Organization Address [facility] Co de Phone Number [facility] [place] [address] * POCT Glucose (01/04/2022 3:01 AM EDT) Glucose, POC 182 65 - 199 mg/dL [facility] Comment: Supplemental ranges: <140 mg/dL before meals <180 mg/dL all other times of the day Blood 01/04/2022 3:01 AM EDT 01/04/2022 3:01 AM EDT Moi Ledezma MD POINT OF CARE TEST O MUSHTAQ Performing Organization Address [facility] Co de Phone Number [facility] [place] [address] * (ABNORMAL) BLOOD GAS 2 VENOUS (01/04/2022 1:44 AM EDT) pH, Venous 7.33 7.32 - 7.42 [facility] PCO2, Venous 45 41 - 51 mmHg [facility] PO2, Venous 52(H) 25 - 40 mmHg [facility] Bicarbonate, Venous 23.5 mmol/L [facility] Base Excess, Venous -2.7 mmol/L [facility] Hgb Blood Gas 13.1 11.7 - 15.5 g/dL [facility] Oxyhemoglobin, Venous 86.6 % [facility] Carboxyhemoglob in, Venous 0.3 % [facility] Comment: Nonsmokers: 0.5-1.5% COHB Smokers: Variable, but usually less than 10% Toxic: 20-30% COHB Lethal: Greater than 60% COHB Methemoglobin, Venous 0.8 <=1.5 % [facility] Na Whole Blood 134(L) 135 - 145 mmol/L [facility] K Whole Blood 4.1 3.5 - 5.0 mmol/L [facility] Comment: Please note: Patients with WBC >100,000 may have falsely elevated Potassium levels. Contact the Clinical Chemistry Laboratory if there are any questions. ICa Whole Blood 1.21 1.15 - 1.33 mmol/L [facility] Comment: Note: ??Total bilirubin higher than 20 mg/dL may lead to falsely low ionized calcium. CL Whole Blood 104 98 - 107 mmol/L [facility] Gluc Whole Bld 215(H) 65 - 199 mg/dL [facility] Comment:Diabetes: >=200 mg/d L plus symptoms Lactate WB 0.8 0.5 - 2.2 mmol/L [facility] Fraction of Inspired Oxygen, Venous 21 % [facility] Blood Gas Source Venous [facility] Temperature, Venous 35.8 Celsius [facility] Blood 01/04/2022 1:44 AM EDT 01/04/2022 1:44 AM EDT Moi Ledezma MD POINT OF CARE TEST O RDERABLES [facility] [place] [address] * (ABNORMAL) Differential, Automated (01/04/2022 12:50 AM EDT) Neutrophil % 86.1 % [facility] Neutrophil Absolute 5.92 1.70 - 6.10 x10(3)/mc L [facility] Lymph % 9.6 % [facility] Lymphocytes Abs 0.7(L) 0.9 - 3.2 x10(3)/mc L [facility] Monocyte % 3.6 % [facility] Monocyte Abs 0.2(L) 0.3 - 0.9 x10(3)/mc L [facility] Eos % 0.1 % [facility] Eosinophils Abs 0.0 0.0 - 0.4 x10(3)/ L [facility] Basophil % 0.3 % [facility] Baso Absolute 0.0 0.0 - 0.1 x10(3)/ L [facility] Immature Gran % 0.30 % [facility] Comment: Immature granulocytes(IG's)percentage and absolute count will include metamyelocytes, myelocytes, and promyelocytes. Blood smears from CBCs yielding IG's will be scanned manually for concordance. If this scan disagrees with the automated IG or if promyelocytes are noted, a manual differential will be performed. Immature Gran Absolute 0.02 0.00 - 0.04 x10(3)/[facility] Blood 01/04/2022 12:5 0 AM EDT 01/04/2022 1:24 AM EDT Narrative Resulting Agency Comment Spec In Lab Sumanth Barnard MD HEMATOLOGY ORDERABL ES [facility] [place] [address] * (ABNORMAL) Hemogram (01/04/2022 12:50 AM EDT) White Blood Cell 6.9 4.0 - 9.5 x10(3)/ L [facility] Red Blood Cell 3.77(L) 4.00 - 5.21 x10(6)/mc L [facility] Hemoglobin 11.9 11.7 - 15.5 g/dL [facility] Hematocrit 34.4(L) 35.7 - 45.8 % [facility] Mean Cell Volume 91.2 82.6 - 94.4 fL [facility] Mean Cell Hemoglobin 31.6 27.1 - 32.0 pg [facility] Mean Cell Hemoglobin Concentration 34.6 31.7 - 35.0 g/dL [facility] Platelet 197 145 - 357 x10(3)/mc L [facility] RDW Standard Deviation 40.7 37.0 - 46.0 fL [facility] RDW coefficient of variation 12.1 11.5 - 14.1 % [facility] Mean Platelet Volume 10.4 7.6 - 12.9 fL [facility] NRBC% auto 0.0 % [facility] NRBC Absolute 0.000 0.000 - 0.000 x10(3)/mc L [facility] Blood 01/04/2022 12:5 0 AM EDT 01/04/2022 1:24 AM EDT Narrative Resulting Agency Comment Spec In Lab Sumanth Barnard MD HEMATOLOGY ORDERABL ES Performing Organization Address City/[facility]/ZIP Co de Phone Number [facility] [place] [address] * (ABNORMAL) Beta Hydroxybutyrate (01/04/2022 12:50 AM EDT) Beta-hydroxybu turate 0.95(H) 0.00 - 0.30 mmol/L [facility] Comment: Reference range: ??0.00-0.30 mmol/L, based on an overnight fast. ??Children may be higher. Blood 01/04/2022 12:5 0 AM EDT 01/04/2022 1:24 AM EDT Narrative Resulting Agency Comment Spec In Lab Moi Ledezma MD CHEMISTRY ORDERABLES Performing Organization Address City/[facility]/ZIP Co de Phone Number [facility] [place] [address] * (ABNORMAL) Hemoglobin A1c (01/04/2022 12:50 AM EDT) Hemoglobin A1c 8.0(H) 4.3 - 5.6 % [facility] Comment: Reference Range: 4.3 - 5.6% [...] Mellitus, Diabetes Care 2013; 36: Suppl. 1, K37-00 Estimated Average Glucose 183 mg/dL [facility] Comment: eAG equivalents for HbA1c percentages: [...] into estimated average glucose values. ??Diabetes Care 2008:31(8):0820-0477. Blood 01/04/2022 12:5 0 AM EDT 01/04/2022 1:24 AM EDT Narrative Resulting Agency Comment Spec In Lab Moi Ledezma MD CHEMISTRY ORDERABLES [facility] [place] [address] * (ABNORMAL) Troponin (01/04/2022 12:50 AM EDT) Troponin-T 0.24(H) 0.00 - 0.00 ng/mL [facility] Comment: The 99th percentile for Troponin T is less than 0.01 ng/mL, any detectable cTnT concentration using this assay should be considered elevated. According to the third universal definition of myocardial infarction the following criteria with a clinical presentation consistent with acute myocardial ischemia meets the diagnosis for a myocardial infarction ([place]). Detection of a rise and/or fall of cTnT, with at least one value greater than the 99th percentile (> or = 0.01) and with at least one of the following ?? Symptoms of ischemia ?? New or presumed new significant HQ-svmktyn-D wave (ST-T) changes or new left bundle [...] additional sample may be indicated. Reference: Third [place] Definition of Myocardial Infarction. Journal of the [place] [employer] 2012;60:1581-98 Blood 01/04/2022 12:5 0 AM EDT 01/04/2022 1:24 AM EDT Narrative Resulting Agency Comment Spec In Lab Moi Ledezma MD CHEMISTRY ORDERABLES Performing Organization Address [facility] Co de Phone Number [facility] [place] [address] * pro-Brain Natriuretic Peptide (01/04/2022 12:50 AM EDT) NT-proBNP 56 <=124 pg/mL [facility] Blood 01/04/2022 12:5 0 AM EDT 01/04/2022 1:24 AM EDT Narrative Resulting Agency Comment Spec In Lab Moi Ledezma MD CHEMISTRY ORDERABLES Performing Organization Address [facility]/ZIP Co de Phone Number [facility] [place] [address] * LDL Cholesterol, Direct (01/04/2022 12:50 AM EDT) LDL Cholesterol, Direct 66 mg/dL [facility] Comment: Lowest Risk: <100 mg/dL Lower Risk: 100-129 mg/dL Borderline High Risk: 130-159 mg/dL High Risk: 160-189 mg/dL Very High Risk: >tw=641 mg/dL Blood 01/04/2022 12:5 0 AM EDT 01/04/2022 1:24 AM EDT Narrative Resulting Agency Comment Spec In Lab Moi Ledezma MD CHEMISTRY ORDERABLES [facility] [place] [address] * HDL/Cholesterol Profile (01/04/2022 12:50 AM EDT) Cholesterol, Total 136 mg/dL [facility] Comment: Lower Risk: <200 mg/dL Average Risk: 200-239 mg/dL Higher Risk: >ac=420 mg/dL HDL Cholesterol 63 mg/dL [facility] Comment: Males: ?? Higher Risk: <40 mg/dL Females: ?? Higher Risk: <50 mg/dL Cholesterol/HDL Ratio 2.2 ratio [facility] Chol/HDL Interpretation See Note [facility] Comment: Lipid management should be guided by a patient? s ASCVD risk, goals and preferences. ACC/AHA Guidelines recommend high intensity statin if clinical ASCVD or LDL greater than or equal to 190 mg/dL. http://[employer] Solar[employer].com/NSX-BDN-Dngafwqig Measure LDL if Total Cholesterol minus HDL Cholesterol is greater than 220 mg/dL. Adults aged 40-75 with LDL 70-189 mg/dL should have their 10 year ASCVD risk estimated with the ACC/AHA ASCVD risk commercial sales specialist http://tools.acc.org/HZELM-Taey-Tjilzxykk/ Statin should be discussed if risk greater [...] Ledezma MD CHEMISTRY ORDERABLES Performing Organization Address [facility] Co de Phone Number [facility] [place] [address] * TSH (01/04/2022 12:50 AM EDT) Thyroid Stimulating Hormone 0.75 0.27 - 4.20 mcIU/mL [facility] Comment: Reference Interval (mcIU/mL): Females: ??First Trimester: 0.23-3.88 ??Second Trimester: 0.22-3.90 ??Third Trimester: 0.44-4.66 Blood 01/04/2022 12:5 0 AM EDT 01/04/2022 1:24 AM EDT Narrative Resulting Agency Comment Spec In Lab Moi Ledezma MD CHEMISTRY ORDERABLES Performing Organization Address [facility] de Phone Number [facility] [place] [address] * Phosphorus (01/04/2022 12:50 AM EDT) Phosphorus 2.7 2.5 - 4.5 mg/dL [facility] Blood 01/04/2022 12:5 0 AM EDT 01/04/2022 1:24 AM EDT Narrative Resulting Agency Comment Spec In Lab Moi Ledezma MD CHEMISTRY ORDERABLES Performing Organization Address [facility] Co de Phone Number [facility] [place] [address] * Magnesium (01/04/2022 12:50 AM EDT) Magnesium 0.84 0.69 - 1.07 mmol/L [facility] Blood 01/04/2022 12:5 0 AM EDT 01/04/2022 1:24 AM EDT Narrative Resulting Agency Comment Spec In Lab Moi Ledezma MD CHEMISTRY ORDERABLES [facility] [place] [address] * (ABNORMAL) Basic Metabolic Panel (non-fasting) (01/04/2022 12:50 AM EDT) Glucose 224(H) 65 - 199 mg/dL [facility] Comment:Diabetes: >=200 mg/d L plus symptoms Blood Urea Nitrogen 11 8 - 18 mg/dL [facility] Creatinine 0.62(L) 0.70 - 1.20 mg/dL [facility] Sodium 137 135 - 145 mmol/L [facility] Potassium 4.1 3.5 - 5.0 mmol/L [facility] Comment: Please note: ??Patients with WBC >100,000 may have falsely elevated Potassium levels. ??For accurate Potassium quantification in these patients send serum separator tube (gold top) for subsequent determinations. ??Contact the Clinical Chemistry Laboratory if there are any questions. Chloride 105 98 - 107 mmol/L [facility] Carbon Dioxide 22 22 - 31 mmol/L [facility] Anion Gap 10 5 - 15 mmol/L [facility] Calcium 8.5 8.5 - 10.5 mg/dL [facility] Est Glomerular Filtration Rate 107 >=60 mL/min/1. 73 m?? [facility] Comment: This patient? s estimated glomerular [...] In Lab Moi Ledezma MD CHEMISTRY ORDERABLES [facility] [place] [address] * COVID-19 PCR (01/04/2022 12:50 AM EDT) SARS-CoV-2 RNA (Rapid) Not Detected Not Detected [facility] Comment: This result should be interpreted [...] using the Simplexa COVID-19 Direct Assay by [employer]. as authorized by the FDA issued Emergency [...] Department of Pathology and Laboratory Medicine at [facility], certified under the Clinical Laboratory Improvement [...] fact sheets at the following FDA website: https://www.fda.gov/medical-devices/voemgtwprab-crhfwst-0363-ulamt-24-atohnixxp- use-a dmqandhyzmbdc-yhbfvrb-ebocbtr/hsunb-jgejsnwpdmz-ynht SARS-CoV-2 Source [employer] Swab [facility] Nasopharyngeal Swab 01/05/20 12:50 AM EDT 01/04/2022 1:48 AM EDT Comment:Symptoms->Surveillan ce Narrative Resulting Agency Comment Spec In Lab Moi Ledezma MD MICROBIOLOGY - GENER AL ORDERABLES [facility] [place] [address] * EKG 12 Lead (01/04/2022 12:45 AM EDT) Ventricular rate 94 BPM MUSE SYSTEM Atrial Rate 94 BPM MUSE SYSTEM P-R Interval 140 ms MUSE SYSTEM QRS Duration 92 ms MUSE SYSTEM Q-T Interval 370 ms MUSE SYSTEM QTC Calculated (Bezet) 462 ms MUSE SYSTEM Calculated P [place] 69 degrees MUSE SYSTEM Calculated R [place] 2 degrees MUSE SYSTEM Calculated T [place] 89 degrees MUSE SYSTEM INTERPRETATION Normal sinus rhythm Low voltage QRS Nonspecific ST and T wave abnormality Abnormal ECG When compared with ECG of 13-NOV-1999 14:45, ST now depressed in Anterior leads Nonspecific T wave abnormality now evident in Lateral leads Confirmed by MD Umm, Ray Espinoza ([id number]) on 01/04/2022 1:03:04 PM MUSE SYSTEM 01/04/2022 12:4 5 AM EDT 01/04/2022 1:03 PM EDT Moi Ledezma MD ECG ORDERABLES Performing Organization Address [facility] de Phone Number MUSE SYSTEM * POCT Glucose (01/04/2022 12:07 AM EDT) Glucose, POC 126 65 - 199 mg/dL [facility] Comment: Supplemental ranges: <140 mg/dL before meals <180 mg/dL all other times of the day Blood 01/04/2022 12:0 7 AM EDT 01/04/2022 12:07 AM EDT Moi Ledezma MD POINT OF CARE TEST O RDERABLES Performing Organization Address [facility] de Phone Number [facility] [place] [address] * CARDIAC CATHETERIZATION (01/03/2022 11:45 PM EDT) Anatomical Region Laterality Modality Other Narrative 01/03/2022 11:54 PM EDT ?[facility] ? Cardiac Catheterization/Intervention Report ? Patient Name: Afua Rosales. ? Procedure Date: 01/03/2022 ? A #: [id number] ? Primary Physician: Moi Ledezma ? Case #: [id number] ? File Name: [id number] ? Catheterization Order Number: [id number] ? [facility] ? Final Report [place], [place] ? Patient Name: ? Afua A. Silver ?ID#: ?[id number] ? : ?1975 ? Procedure Date: ? [...] was ?designated as ASA Class IV. The [facility] clinical frailty scale is 5: Mildly ?Frail. ? Diagnostic Tests: ?Electrocardiography: ? EKG was assessed by ECG. EKG was Abnormal. EKG showed ST Deviation ? >= 0.5 mm and other abnormality. ?Medications Prior to Procedure: ? Aspirin, Statin and Thrombolytic (any). ? Indications for Diagnostic Cath: ?The priority of the diagnostic procedure was Emergent. The indication for ?the earth science laboratory technician visit is ACS less than [...] ?SH guiding catheter and a 3.[address] [facility] [address] ??20 Mhz. ??Imaging ?was successful. ??Image quality was excellent. ??The mid RCA showed severe ?diffuse atherosclerotic plaque. ??Measurements were performed after ?pre-dilation. ?Post Intervention: The stent was well expanded and apposed. ?Intravascular Ultrasound was performed in the distal RCA using a 6 Fr JR ?4 SH guiding catheter and a 3.[address] [facility] [address] ??20 Mhz. ?Imaging was successful. ??Image [...] dose administered prior to arrival in the earth science laboratory technician. ?Recommended anti-platelet/anti-thrombotic regimen: ?Start aspirin 81 mg daily now and continue for indefinitely. ?Start clopidogrel 75 mg daily now and continue for 12 months then stop. ?These recommendations are made at the time of the intervention. Patient ?and provider preferences or a changing clinical situation may require ?modification of this regimen. Consult [facility] [place] for ?questions. ?The 1 year [...] against any medical treatment. Consult ?http://tools.acc.org/DAPTriskapp/#!/content/calculator/ or [facility] [place]Interventional [place]iology for questions ? Conclusions: ?* [...] Procedure Note Moi Ledezma MD - 01/14/2022 [facility] Cardiac Catheterization/Intervention Report Patient Name: Afua RosalesMono Procedure Date: 01/03/2022 A #: [id number] Primary Physician: Moi Ledezma Case #: [id number] File Name: [id number] Catheterization Order Number: [id number] [facility] FinalReport [place], [place] Patient Name: Afua Rosales ID#:[id number] :1975 Procedure Date: January 03, 2022 Case [...] patientwas designated as ASA Class IV. The [facility] clinical frailty scale is 5:Mildly Frail. Diagnostic Tests: Electrocardiography: EKG was assessed by ECG. EKG was Abnormal. EKG showed STDeviation >= 0.5 mm and other abnormality. Medications Prior to Procedure: Aspirin, Statin and Thrombolytic (any). Indications for Diagnostic Cath: The priority of the diagnostic procedure was Emergent. Theindication for the earth science laboratory technician visit is ACS less than [...] SH guiding catheter and a 3.[address] [facility] [address] 20 Mhz.Imaging was successful. Image quality was excellent. The mid RCA showedsevere diffuse atherosclerotic plaque. Measurements were performed after pre-dilation. Post Intervention: The stent was well expanded and apposed. Intravascular Ultrasound was performed in the distal RCA using a 6Fr JR 4 SH guiding catheter and a 3.[address] [facility] [address] 20 Mhz. Imaging was successful. Image quality was excellent. The distalRCA showed severe diffuse atherosclerotic plaque. Measurements were performed after pre-dilation. Post Intervention: The stent was well expanded and apposed. Indication for Intervention: Coronary intervention was indicated for primary therapy for an acute myocardial infarction. The priority for the procedure was Emergent.The [facility] indication for the procedure was STEMI (after [...] The lesion was predilated with a 2.00mm [id number] MM balloon with a maximum inflation pressure [...] dose administered prior to arrival in the earth science laboratory technician. Recommended anti-platelet/anti-thrombotic regimen: Start aspirin 81 mg daily now and continue for indefinitely. Start clopidogrel 75 mg daily now and continue for 12 months thenstop. These recommendations are made at the time of the intervention.Patient and provider preferences or a changing clinical situation mayrequire modification of this regimen. [place] [facility] [place] [place]iology[facility] questions. The 1 year bleeding [...] or against any medical treatment.Consult http://tools.acc.org/DAPTriskapp/#!/content/calculator/ or [facility] [place] for questions Conclusions: * Two [...] (ABNORMAL) POCT Glucose (01/03/2022 11:31 PM EDT) [facility] Signature Glucose, POC 200(H) 65 - 199 mg/dL [facility] Comment: Supplemental ranges: <140 mg/dL before meals <180 mg/dL all other times of the day Blood 01/03/2022 11:3 1 PM EDT 01/03/2022 11:31 PM EDT Moi Ledezma MD POINT OF CARE TEST O RDERABLES [facility] [place] [address] * (ABNORMAL) POCT Glucose (01/03/2022 10:56 PM EDT) Glucose, POC 265(H) 65 - 199 mg/dL [facility] Comment: Supplemental ranges: <140 mg/dL before meals <180 mg/dL all other times of the day Blood 01/03/2022 10:5 6 PM EDT 01/03/2022 10:56 PM EDT Moi Ledezma MD POINT OF CARE TEST O RDERABLES [facility] [place] [address] * (ABNORMAL) Point of Care Blood Gas Historical (01/03/2022 10:38 PM EDT) pH, POC 7.35 7.35 - 7.45 [facility] pCO2, POC 46(H) 35 - 45 mmHg [facility] pO2, POC 93 85 - 104 mmHg [facility] Base Excess, POC 0.0 -3.0 - 3.0 mmol/L [facility] Bicarbonate, POC 25.3 20.0 - 26.0 mmol/L [facility] Sodium, POC 141 135 - 145 mmol/L [facility] POC Potassium 3.7 3.5 - 5.0 mmol/L [facility] Ionized Calcium, POC 1.26 1.15 - 1.33 mmol/L [facility] POC Hematocrit 35.0 34.0 - 45.0 % [facility] POC Calc Hgb 11.9 11.2 - 15.7 g/dL [facility] Comment:The calculation of h emoglobin from hematocrit assumes a normal MCHC. POC Bgas Loc [facility] Blood 01/03/2022 10:3 8 PM EDT 01/09/2022 12:00 PM EDT Ray Salomon MD CHEMISTRY ORDERABLES Performing Organization Address City/[facility]/ZIP Co de Phone Number [facility] [place] [address] * (ABNORMAL) POCT Glucose (01/03/2022 10:37 PM EDT) Glucose, POC 63(L) 65 - 199 mg/dL [facility] Comment: Supplemental ranges: <140 mg/dL before meals <180 mg/dL all other times of the day Blood 01/03/2022 10:3 7 PM EDT 01/03/2022 10:37 PM EDT Moi Ledezma MD POINT OF CARE TEST O RDERABLES Performing Organization Address [facility] Co de Phone Number [facility] [place] [address] documented in this encounter Visit Diagnoses Not [...] Routine documented in this encounter Care Teams Crane Hoist Or Lift Operator Relationship Specialty Start Date End Date Felisha Juan, DEMETRIS [address] [facility] [place] [address] PCP - General Family Medicine 10/29/15 01/29/22 documented as of this encounter
--- OUTSIDE RECORDS SUMMARY | 2024-04-08 00:39 | XMS_ITS | Encounter Summary ---
Author Organization [facility] Address [facility] [place] [address] Care Team Providers Care Diamond Blender Name Role Phone Felisha Juan APRN Primary Care Provider [phone] Reason for Referral * Consultation (Routine) - Closed Specialty Diagnoses / Procedures Referred By Contact Referred To Contact Cardiac Rehabilitation Diagnoses ST elevation myocardial infarction involving right coronary artery Marc Bowles MD [facility] C[place] [address] Cardiac Rehab, [address] [address] Referral ID Status Reason Start Date Expiration Date V isits Requested Visits Authorized [id number] Closed Consult, Test & Treat 01/06/2022 01/06/2023 36 36 * Consultation (Routine) - Closed Specialty Diagnoses / Procedures Referred By Contac t Referred To Contact Diagnoses ST elevation myocardial infarction involving right coronary artery Marc Bowles MD [facility] C[place] [address] [place], [place] Referral ID Status Reason Start Date Expiration Date V isits Requested Visits Authorized [id number] Closed Consult, Test & Treat 01/06/2022 07/05/2022 1 1 Reason for Visit * Auth/Cert Specialty Diagnoses / Procedures Referred By Contac t Referred To Contact Diagnoses STEMI (ST elevation myocardial infarction) STEMI Procedures CARDIAC CATHETERIZATION Geraldo Salomon MD [facility] [address] [facility] Referral ID Status Reason Start Date Expiration Date Visits Re quested Visits Authorized [id number] 1 1 Encounter Details Date Type Department Care Team (Latest Contact Info) Description 01/03/2022 10:19 PM EDT - 01/06/2022 3:03 PM EDT Hospital [place] [id number] Moi Ledezma MD [facility] [place] [address] Geraldo Salomon MD [facility] [place] [address] ST elevation myocardial infarction involving right coronary [...] Afua Rosales Patient Age: 46 y.o. Language: Romanian Race: White Ethnicity: Not nor Admit date: [...] will need follow up with cardiology at [facility] as well as to establish care. [...] made her nauseous. ?? On arrival to [facility], she was afebrile, BP was 95/54, she was oxygenating normally on room air. She was infused with 1L IV fluids, given 25 mg of aspirin (per [facility] discharge note). The on-call advanced manufacturing associate at [facility] was contacted, she was given 300 mg of Plavix, aspirin, heparin with bolus and drip. She was also given tecteplase 35mg. ?? On arrival to [facility] malthouse laborer, she underwent LHC and received TRACIE x2 [...] for you to establish care with a agent licensing clerk at [facility] as well as a referral to [...] appointments: During 8am-5pm Thursday through Thursday call [phone] to speak with a nurse in the cardiology clinic All other times call [phone] and ask to speak to the advanced manufacturing associate staffing consultant. Activity level: - No heavy lifting (more [...] none Follow up Appointments: No future appointments. Shearer Screen Measurer And Trimmer: You will be contacted by [facility] to schedule a cardiology appointment to establish care. PCP: Felisha Juan APRN at [phone] Your Inpatient Doctor(s) at [facility]: Geraldo Salomon MD - Attending physician Cam David MD - Cloth Finishing Range Operator Chief physician Your Primary Care Provider: Felisha Juan APRN [address] [facility] [address] For questions regarding issues relating to your hospitalization on the Hospital Medicine Service, please contact your inpatient physician through the [facility] Aircraft Systems Repairer [phone]. Issues after hours and on weekends will be handled by the Hospitalist staff on-call. General Instructions None Future Appointments and Orders Future Orders Complete By Expires Referral to Cardiac Rehab [[id number] Custom] As directed Process Instructions: If no progress note charted, please enter Clinical details in comments. Scheduling Instructions: Questions: My question or request is: cardiac rehab referral s/p STEMI, she would benefit from location close to [facility] Referral to Cardiology [[id number] Custom] As directed Process Instructions: If no progress note charted, please enter Clinical details in comments. Scheduling Instructions: Questions: My question or request is: establish care after inferoposterior stemi Provider Contact Information: [address] / [facility] [address] Discharge References/Attachments: Discharge References/Attachments None Associated attestation - Geralod Salomon MD - 01/06/2022 1:51 PM EDT Dear Colleagues, I was the attending at the time of discharge. Please call or email me if you have questions. Geraldo Salomon MD, [facility] Cardiovascular Medicine [phone] documented in this encounter Discharge Instructions * [...] for you to establish care with a agent licensing clerk at [facility] as well as a referral to [...] appointments: During 8am-5pm Thursday through Thursday call [phone] to speak with a nurse in the cardiology clinic All other times call [phone] and ask to speak to the advanced manufacturing associate staffing consultant. Activity level: - No heavy lifting (more [...] none Follow up Appointments: No future appointments. Shearer Screen Measurer And Trimmer: You will be contacted by [facility] to schedule a cardiology appointment to establish care. PCP: Felisha Juan APRN at [phone] Your Inpatient Doctor(s) at [facility]: Geraldo Salomon MD - Attending physician Cam David MD - Cloth Finishing Range Operator Chief physician Your Primary Care Provider: Felisha Juan APRN [address] / [facility] [address] For questions regarding issues relating to your hospitalization on the Hospital Medicine Service, please contact your inpatient physician through the [facility] Aircraft Systems Repairer [phone]. Issues after hours and on weekends will [...] detail Patient transport has been arranged through [facility]. Nilda will be arriving in a black [...] CHO control level 2 Elba Pavon APRN [facility] Endocrinology Diabetes Management Pager [phone] 20 minutes of this 35 minute visit [...] Cuff Relevant medications: noted Last Bowel Movement: (UX CONSULTANT) Admit Weight: 66.1 kg Estimated body mass index is 22.86 kg/m?? as calculated from the following: Height as of this encounter: 165.1 cm (5' 5). Weight as of this encounter: 62.3 kg (137 lb 5.6 oz). [place] Body Weight: 125 lbs / 56.7 kg [...] up while inpatient Phuong Clements RD Pager #:[phone] * Geraldo Salomon MD - 01/06/2022 6:54 AM EDT Images from the original note were not included. Inpatient Cardiology Progress Note Patient info: Name: Afua Rosales : 1975 PCP: Felisha Juan APRN PCP phone number: [phone] Date of Admission: 01/03/2022 ( Hospital Day 3 days ) Attending:Geraldo Salomon MD ID: Afua Rosales is a 46 y.o. 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 She presents with inferior STEMI and is now s/p PCI with TRACIE x2 to RCA. Hospital Day3 24 Hour Events/Subjective: - GUSTAVO ROJAS - pharmacy is [facility] in [facility], BF can fruit picker at 6 pm when neighbor's car becomes [...] Procedure Component Value Units Date/Time COVID-19 PCR [[id number]] Collected: 01/04/2249 Lab Status: Final result Specimen: [...] using the Simplexa COVID-19 Direct Assay by Fiiiling as authorized by the FDA issued Emergency [...] Department of Pathology and Laboratory Medicine at [facility], certified under the Clinical Laboratory Improvement [...] fact sheets at the following FDA website: https://www.fda.gov/medical-devices/dbvcpatztnt-vpygmps-9366-aitvq-27-mbmbdwzdy- itz-ylcjwzshqzfxmr-gosicgn-devices/wypdg-jmfrwhlwvgv-ftok SARS-CoV-2 Source RACING BOARD MARKER Swab Imaging: No results found for this [...] David MD Internal Medicine, PGY-1 Cardiology, S2 ([id number]) 01/06/22 Cardiology Staff Addendum Afua Rosales is [...] Sky ? Lucia Alexander Endocrinology Fellow Pager [phone] I have seen the patient and reviewed [...] PCP: Felisha Juan APRN PCP phone number: [phone] Date of Admission: 01/03/2022 ( Hospital Day [...] Procedure Component Value Units Date/Time COVID-19 PCR [[id number]] Collected: 01/04/2249 Lab Status: Final result Specimen: [...] using the Simplexa COVID-19 Direct Assay by Fiiiling as authorized by the FDA issued Emergency [...] Department of Pathology and Laboratory Medicine at [facility], certified under the Clinical Laboratory Improvement [...] fact sheets at the following FDA website: https://www.fda.gov/medical-devices/tyeabixzfat-wobkycs-7343-bnvcp-09-ydbjxkfnt- jqy-drhokphlxryhdv-lvwqebm-devices/lfhyl-csqonjqmsqu-phty SARS-CoV-2 Source RACING BOARD MARKER Swab Imaging: No results found for this [...] Clark MD - 01/04/2022 3:25 AM EDT [facility] TeleICU Initial Assessment Note I established audio/visual communication with the patient's room, reviewed the eDH. History and Assessment: 46 y.o. 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 STEMIalert activated and went to malthouse laborer where proximal and mid RCA stents were [...] tablet 12.5 mg, 12.5 mg, Oral, Q8H [facility], Sumanth Barnard MD ??? clopidogreL (Plavix) tablet [...] PCP: Felisha Juan APRN PCP phone number: [phone] Date of Admission: 01/03/2022 ( Hospital Day [...] previously made her nauseous. On arrival to [facility], she was afebrile, BP was 95/54, she was oxygenating normally on room air. She was infused with 1L IV fluids, given 25 mg of aspirin (per [facility] discharge note). The on-call advanced manufacturing associate at [facility] was contacted, she was given 300 mg of Plavix, aspirin, heparin with bolus and drip. She was also given tecteplase 35mg. On arrival to [facility] malthouse laborer, she underwent LHC and received TRACIE x2 [...] COVID test: Lab Results Component Value Date [id number] Not Detected 01/04/2022 Past medical History: No past medical history on file. Hospitalizations Within the Past 30 Days: no previous admission in last 30 days Current Decision-Making Capacity: Self Advance Care Planning: Attempt Cardiopulmonary Resuscitation - Inpatient <no information> -Advanced Directive: No, need to discuss If AD's have not been completed daughter would be surrogate decision maker per [place] surrogate decision making law. (Only good for 180 days) Any patient receiving care at [facility] must abide by [place] law. The hierarchy for surrogate decision making [...] (i) The agent with financial power of saturator operator or a conservator appointed in accordance with [...] confirmed as: [address] [facility] [address] Social & Family Supports: All names listed below confirmed with patient as current and correct Extended Emergency Contact Information Primary Emergency Contact: Delano Reyna [facility] Mobile Relation: Friend Current Care [...] MEDICAID [place] Prescription Coverage: Yes Preferred Pharmacy: [id number] - [place], [place] - [address] [place] [address] AT [address] [facility] [address] [facility] [address] [facility] - [place], [place] - [address] [facility] [address] [facility] [address] [place] Status: Patient is a : No Primary Care Provider: Felisha Juan APRN [phone] Patient/Caregiver Goals of Treatment: To go home [...] planning. Office of Care Management Surgery Team School Photographer [email or web address] Pager [phone] #[phone] * Consult Note - Mark Sky [...] management and to provide a review of [facility] diabetescare. Diabetes History: Afua Rosales has had [...] meal) 4. Carb controlled diet level 2 senior care diabetes care: Medications - Outpatient treatment regimen recommendations pending based on the hospital course. Monitoring - continue BG check q4 hours for now Diet - low fat/low carb diet Exercise - weight-bearing exercise 30 min/day, as tolerated Thank you for allowing us to provide care for your patient. Discussed with Dr. Asya Alexander Endocrinology Fellow Pager [phone] I have seen the patient and reviewed [...] CARE TEST O MUSHTAQ Performing Organization Address City/[facility]/ZIP Co de Phone Number [facility] [place] [address] * (ABNORMAL) POCT Glucose (01/06/2022 11:47 AM EDT) Glucose, POC 299(H) 65 - 199 mg/dL [facility] Comment: Supplemental ranges: <140 mg/dL before meals <180 mg/dL all other times of the day Blood 01/06/2022 11:4 7 AM EDT 01/06/2022 11:47 AM EDT Geraldo Salomon MD POINT OF CARE TEST Natalia LANDIN [facility] [place] [address] * POCT Glucose (01/06/2022 8:01 AM EDT) Glucose, POC 142 65 - 199 mg/dL [facility] Comment: Supplemental ranges: <140 mg/dL before meals <180 mg/dL all other times of the day Blood 01/06/2022 8:01 AM EDT 01/06/2022 8:01 AM EDT Geraldo Salomon MD POINT OF CARE TEST O RDERABLES Performing Organization Address City/[facility]/ZIP Co de Phone Number [facility] [place] [address] * Differential, Automated (01/06/2022 4:20 AM EDT) Neutrophil % 51.9 % [facility] Neutrophil Absolute 3.34 1.70 - 6.10 x10(3)/[facility] LABORATORY Lymph % 32.5 % [facility] Lymphocytes Abs 2.1 0.9 - 3.2 x10(3)/[facility] LABORATORY Monocyte % 13.7 % [facility] Monocyte Abs 0.9 0.3 - 0.9 x10(3)/[facility] LABORATORY Eos % 1.1 % [facility] Eosinophils Abs 0.1 0.0 - 0.4 x10(3)/[facility] LABORATORY Basophil % 0.6 % [facility] Baso Absolute 0.0 0.0 - 0.1 x10(3)/[facility] LABORATORY Immature Gran % 0.20 % [facility] Comment: Immature granulocytes(IG's)percentage and absolute count will include metamyelocytes, myelocytes, and promyelocytes. Blood smears from CBCs yielding IG's will be scanned manually for concordance. If this scan disagrees with the automated IG or if promyelocytes are noted, a manual differential will be performed. Immature Gran Absolute 0.01 0.00 - 0.04 x10(3)/[facility] LABORATORY Blood 01/06/2022 4:20 AM EDT 01/06/2022 4:39 AM EDT Narrative Resulting Agency Comment Spec In Lab Cam David MD HEMATOLOGY ORDERABLE S Performing Organization Address City/[facility]/ZIP Co de Phone Number [facility] [place] [address] * (ABNORMAL) Hemogram (01/06/2022 4:20 AM EDT) [...] CARE [facility]ITAL LABOR[facility]ORY NRBC% auto 0.0 % [facility] NRBC Absolute 0.000 0.000 - 0.000 x10(3)/ L [facility] Blood 01/06/2022 4:20 AM EDT 01/06/2022 4:39 AM EDT Narrative Resulting Agency Comment Spec In Lab Cam David MD HEMATOLOGY ORDERABLE S [facility] [place] [address] * Basic Metabolic Panel (non-fasting) (01/06/2022 4:20 AM EDT) Pathologist [facility] Glucose 123 65 - 199 mg/dL [facility] [...] CHEMISTRY ORDERABLES [facility] [place] [address] * POCT Glucose (01/06/2022 3:46 AM EDT) Glucose, POC 129 65 - 199 mg/dL [facility] Comment: Supplemental ranges: <140 mg/dL before meals <180 mg/dL all other times of the day Blood 01/06/2022 3:46 AM EDT 01/06/2022 3:46 AM EDT Geraldo Salomon MD POINT OF CARE TEST O RDERAFRANKLIN Performing Organization Address City/[facility] Co de Phone Number [facility] [place] [address] * POCT Glucose (01/06/2022 12:06 AM EDT) Glucose, POC 125 65 - 199 mg/dL [facility] Comment: Supplemental ranges: <140 mg/dL before meals <180 mg/dL all other times of the day Blood 01/06/2022 12:0 6 AM EDT 01/06/2022 12:06 AM EDT Geraldo Salomon MD POINT OF CARE TEST O SANDEEPERAFRANKLIN Performing Organization Address [facility] Co de Phone Number [facility] [place] [address] * (ABNORMAL) POCT Glucose (01/05/2022 8:11 PM EDT) Glucose, POC 220(H) 65 - 199 mg/dL [facility] Comment: Supplemental ranges: <140 mg/dL before meals <180 mg/dL all other times of the day Blood 01/05/2022 8:11 PM EDT 01/05/2022 8:11 PM EDT Geraldo Salomon MD POINT OF CARE TEST O RDERAFRANKLIN Performing Organization Address [facility] Co de Phone Number [facility] [place] [address] * POCT Glucose (01/05/2022 6:00 PM EDT) Glucose, POC 190 65 - 199 mg/dL [facility] Comment: Supplemental ranges: <140 mg/dL before meals <180 mg/dL all other times of the day Blood 01/05/2022 6:00 PM EDT 01/05/2022 6:00 PM EDT Geraldo Salomon MD POINT OF CARE TEST O RDERAFRANKLIN Performing Organization Address City/[facility] Co de Phone Number [facility] [place] [address] * POCT Glucose (01/05/2022 3:53 PM EDT) Pathologist [facility] Glucose, POC 161 65 - 199 mg/dL [facility] Comment: Supplemental ranges: <140 mg/dL before meals <180 mg/dL all other times of the day Blood 01/05/2022 3:53 PM EDT 01/05/2022 3:53 PM EDT Geraldo Salomon MD POINT OF CARE TEST O MUSHTAQ Performing Organization Address City/[facility]/ZIP Co de Phone Number [facility] [place] [address] * (ABNORMAL) Differential, Automated (01/05/2022 11:45 AM EDT) [facility] Neutrophil % 65.9 % [facility] Neutrophil Absolute 4.46 1.70 - 6.10 x10(3)/mc L [facility] Lymph % 19.0 % [facility] Lymphocytes Abs 1.3 0.9 - 3.2 x10(3)/mc L [facility] Monocyte % 14.2 % [facility] Monocyte Abs 1.0(H) 0.3 - 0.9 x10(3)/mc L [facility] Eos % 0.1 % [facility] Eosinophils Abs 0.0 0.0 - 0.4 x10(3)/mc L [facility] Basophil % 0.4 % [facility] Baso Absolute 0.0 0.0 - [...] ORDERABLE S [facility] [place] [address] * (ABNORMAL) Hemogram (01/05/2022 11:45 AM EDT) [...] [facility] NRBC% auto 0.0 % [facility] NRBC Absolute 0.000 0.000 - 0.000 x10(3)/mc L [facility] Blood 01/05/2022 11:4 5 AM EDT 01/05/2022 12:08 PM EDT Narrative Resulting Agency Comment Spec In Lab Cam David MD HEMATOLOGY ORDERABLE S [facility] [place] [address] * Basic Metabolic Panel (non-fasting) (01/05/2022 11:45 [...] Salomon MD CHEMISTRY ORDERABLES Performing Organization Address [facility] Co de Phone Number [facility] [place] [address] * POCT Glucose (01/05/2022 11:40 AM EDT) Pathologist [facility] Glucose, POC 148 65 - 199 mg/dL [facility] Comment: Supplemental ranges: <140 mg/dL before meals <180 mg/dL all other times of the day Blood 01/05/2022 11:4 0 AM EDT 01/05/2022 11:40 AM EDT Geraldo Salomon MD POINT OF CARE TEST O RDERABLES Performing Organization Address [facility] Co de Phone Number [facility] [place] [address] * EKG 12 Lead (01/05/2022 8:23 AM EDT) Ventricular rate 78 BPM MUSE SYSTEM Atrial Rate 78 BPM MUSE SYSTEM P-R Interval 132 ms MUSE SYSTEM QRS Duration 106 ms MUSE SYSTEM Q-T Interval 364 ms MUSE SYSTEM QTC Calculated (Bezet) 414 ms MUSE SYSTEM Calculated P [place] 78 degrees MUSE SYSTEM Calculated R [place] -65 degrees MUSE SYSTEM Calculated T [place] -33 degrees MUSE SYSTEM INTERPRETATION Normal sinus rhythm Left axis deviation Incomplete right bundle branch block Cannot rule out Inferior infarct , age undetermined Abnormal ECG When compared with ECG of 04-JAN-2022 00:45, Incomplete right bundle branch block is now Present Minimal criteria for Inferior infarct are now Present Confirmed by Storm Lewis ([id number]) on 01/05/2022 3:44:16 PM MUSE SYSTEM 01/05/2022 [...] CARE TEST O RDERABLES Performing Organization Address [facility]/ZIP Co de Phone Number [facility] [place] [address] * (ABNORMAL) POCT Glucose (01/05/2022 6:45 AM EDT) Glucose, POC 214(H) 65 - 199 mg/dL [facility] Comment: Supplemental ranges: <140 mg/dL before meals <180 mg/dL all other times of the day Blood 01/05/2022 6:45 AM EDT 01/05/2022 6:45 AM EDT Geraldo Salomon MD POINT OF CARE TEST O RDERAFRANKLIN Performing Organization Address City/[facility]/ZIP Co de Phone Number [facility] [place] [address] * POCT Glucose (01/05/2022 5:31 AM EDT) Glucose, POC 89 65 - 199 mg/dL [facility] Comment: Supplemental ranges: <140 mg/dL before meals <180 mg/dL all other times of the day Blood 01/05/2022 5:31 AM EDT 01/05/2022 5:31 AM EDT Geraldo Salomon MD POINT OF CARE TEST O MUSHTAQ [facility] [place] [address] * (ABNORMAL) POCT Glucose (01/05/2022 5:09 AM EDT) Glucose, POC 59(L) 65 - 199 mg/dL [facility] Comment: Supplemental ranges: <140 mg/dL before meals <180 mg/dL all other times of the day Blood 01/05/2022 5:09 AM EDT 01/05/2022 5:09 AM EDT Geraldo Salomon MD POINT OF CARE TEST O SANDEEPERAFRANKLIN Performing Organization Address [facility]/ZIP Co de Phone Number [facility] [place] [address] * POCT Glucose (01/05/2022 12:45 AM EDT) Glucose, POC 96 65 - 199 mg/dL [facility] Comment: Supplemental ranges: <140 mg/dL before meals <180 mg/dL all other times of the day Blood 01/05/2022 12:4 5 AM EDT 01/05/2022 12:45 AM EDT Geraldo Salomon MD POINT OF CARE TEST O SANDEEPERAFRANKLIN [facility] [place] [address] * POCT Glucose (01/04/2022 7:28 PM EDT) Glucose, POC 104 65 - 199 mg/dL [facility] Comment: Supplemental ranges: <140 mg/dL before meals <180 mg/dL all other times of the day Blood 01/04/2022 7:28 PM EDT 01/04/2022 7:28 PM EDT Geraldo Salomon MD POINT OF CARE TEST O MUSHTAQ Performing Organization Address City/[facility]/ZIP Co de Phone Number [facility] [place] [address] * POCT Glucose (01/04/2022 4:04 PM EDT) Glucose, POC 190 65 - 199 mg/dL [facility] Comment: Supplemental ranges: <140 mg/dL before meals <180 mg/dL all other times of the day Blood 01/04/2022 4:04 PM EDT 01/04/2022 4:04 PM EDT Geraldo Salomon MD POINT OF CARE TEST O MUSHTAQ Performing Organization Address [facility] Co de Phone Number [facility] [place] [address] * POCT Glucose (01/04/2022 12:09 PM EDT) Glucose, POC 157 65 - 199 mg/dL [facility] Comment: Supplemental ranges: <140 mg/dL before meals <180 mg/dL all other times of the day Blood 01/04/2022 12:0 9 PM EDT 01/04/2022 12:09 PM EDT Geraldo Salomon MD POINT OF CARE TEST O MUSHTAQ Performing Organization Address City/[facility] Co de Phone Number [facility] [place] [address] * ECHO COMPLETE W CONTRAST (01/04/2022 11:08 AM EDT) EF 60 HEARTLAB SYSTEM Anatomical Region Laterality Modality Cardiac Other 01/04/2022 10:3 3 AM EDT Narrative 01/04/2022 11:25 AM EDT ?[facility] ?[address] ? [place] [address] ?Voice: ?Fax: ? Echocardiogram Report Name: SILVER, AFUA A ? Study Date: 01/04/2022 10:33 AM ? Patient Location: [facility] CV19 A : 1975 ? Height: 65 in ? Account: [id number] Age: 46 yrs ? Weight: 148 lb Gender: Female ?BSA: 1.7 m2 Ordering Physician: MOI LEDEZMA Referring Physician: MT VALENZUELA Exam Location: [facility]. Interpretation Summary Technically difficult. Left ventricular [...] jet. There is no valve disease. Procedure Complete-70863. Image enhancement Optison was used for left [...] Procedure Note Geraldo Salomon MD - 01/04/2022 [place] [address] Voice: Fax: Echocardiogram Report Name: AFUA ROSALES Study Date: 210:33 AM Patient Location: [address] : 1975 Height: 65 in Account: [id number] Age: 46 yrs Weight: 148 lb Gender: Female BSA: 1.7 m2 Ordering Physician: MOI LEDEZMA Referring Physician: MT VALENZUELA Exam Location: [facility]. Interpretation Summary Technically difficult. Left ventricular [...] jet. There is no valve disease. Procedure Complete-05428. Image enhancement Optison was used for left [...] O RDERAFRANKLIN [facility] [place] [address] * POCT Glucose (01/04/2022 8:23 AM EDT) Glucose, POC 72 65 - 199 mg/dL [facility] Comment: Supplemental ranges: <140 mg/dL before meals <180 mg/dL all other times of the day Blood 01/04/2022 8:23 AM EDT 01/04/2022 8:23 AM EDT Moi Ledezma MD POINT OF CARE TEST O RDERAFRANKLIN Performing Organization Address City/[facility]/ZIP Co de Phone Number [facility] [place] [address] * POCT Glucose (01/04/2022 5:03 AM EDT) Glucose, POC 143 65 - 199 mg/dL [facility] Comment: Supplemental ranges: <140 mg/dL before meals <180 mg/dL all other times of the day Blood 01/04/2022 5:03 AM EDT 01/04/2022 5:03 AM EDT Moi Ledezma MD POINT OF CARE TEST O RDERABLES [facility] [place] [address] * POCT Glucose (01/04/2022 3:01 AM EDT) Glucose, POC 182 65 - 199 mg/dL [facility] Comment: Supplemental ranges: <140 mg/dL before meals <180 mg/dL all other times of the day Blood 01/04/2022 3:01 AM EDT 01/04/2022 3:01 AM EDT Moi Ledezma MD POINT OF CARE TEST O RDERABLES [facility] [place] [address] * (ABNORMAL) BLOOD GAS 2 VENOUS (01/04/2022 1:44 AM EDT) pH, Venous 7.33 7.32 - 7.42 [facility] PCO2, Venous 45 41 - [...] Fraction of Inspired Oxygen, Venous 21 % [facility] Blood Gas Source Venous [facility] Temperature, Venous 35.8 Celsius [facility] Blood 01/04/2022 1:44 AM EDT 01/04/2022 1:44 AM EDT Moi Ledezma MD POINT OF CARE TEST O RDERABLES Performing Organization Address City/State/[facility] Co de Phone Number [facility] [place] [address] * (ABNORMAL) Differential, Automated (01/04/2022 12:50 AM EDT) Neutrophil % 86.1 % [facility] Neutrophil Absolute 5.92 1.70 - 6.10 x10(3)/mc L [facility] Lymph % 9.6 % [facility] Lymphocytes Abs 0.7(L) 0.9 - 3.2 x10(3)/mc L [facility] Monocyte % 3.6 % [facility] Monocyte Abs 0.2(L) 0.3 - 0.9 x10(3)/mc L [facility] Eos % 0.1 % [facility] Eosinophils Abs 0.0 0.0 - 0.4 x10(3)/mc L [facility] Basophil % 0.3 % [facility] Baso Absolute 0.0 0.0 - [...] Lab Sumanth Barnard MD HEMATOLOGY ORDERABL ES [facility] [place] [address] * (ABNORMAL) Hemogram (01/04/2022 12:50 AM EDT) [...] [facility] NRBC% auto 0.0 % [facility] NRBC Absolute 0.000 0.000 - 0.000 x10(3)/mc L [facility] Blood 01/04/2022 12:5 0 AM EDT 01/04/2022 1:24 AM EDT Narrative Resulting Agency Comment Spec In Lab Sumanth Barnard MD HEMATOLOGY ORDERABL ES Performing Organization Address [facility] Co de Phone Number [facility] [place] [address] * (ABNORMAL) Beta Hydroxybutyrate (01/04/2022 12:50 AM EDT) Beta-hydroxybu turate 0.95(H) 0.00 - 0.30 mmol/L [facility] Comment: Reference range: ??0.00-0.30 mmol/L, based on an overnight fast. ??Children may be higher. Blood 01/04/2022 12:5 0 AM EDT 01/04/2022 1:24 AM EDT Narrative Resulting Agency Comment Spec In Lab Moi Ledezma MD CHEMISTRY ORDERABLES Performing Organization Address [facility] de Phone Number [facility] [place] [address] * (ABNORMAL) Hemoglobin A1c (01/04/2022 12:50 AM [...] Mellitus, Diabetes Care 2013; 36: Suppl. 1, V90-08 Estimated Average Glucose 183 mg/dL [facility] [...] into estimated average glucose values. ??Diabetes Care 2008:31(8):4899-2284. Blood 01/04/2022 12:5 0 AM EDT 01/04/2022 1:24 AM EDT Narrative Resulting Agency Comment Spec In Lab Moi Ledezma MD CHEMISTRY ORDERABLES Performing Organization Address City/State/[facility] Co de Phone Number [facility] [place] [address] * (ABNORMAL) Troponin (01/04/2022 12:50 AM EDT) [...] meets the diagnosis for a myocardial infarction (CO). Detection of a rise and/or fall of cTnT, with at least one value greater than the 99th percentile (> or = 0.01) and with at least one of the following ?? Symptoms of ischemia ?? New or presumed new significant MC-hsqfrhn-S wave (ST-T) changes or new left bundle [...] additional sample may be indicated. Reference: Third Climax Definition of Myocardial Infarction. Journal of the [place] [employer] 2012;60:1581-98 Blood 01/04/2022 12:5 0 AM EDT 01/04/2022 1:24 AM EDT Narrative Resulting Agency Comment Spec In Lab Moi Ledezma MD CHEMISTRY ORDERABLES Performing Organization Address [facility] Co de Phone Number [facility] [place] [address] * pro-Brain Natriuretic Peptide (01/04/2022 12:50 AM EDT) NT-proBNP 56 <=124 pg/mL [facility] Blood 01/04/2022 12:5 0 AM EDT 01/04/2022 1:24 AM EDT Narrative Resulting Agency Comment Spec In Lab Moi Ledezma MD CHEMISTRY ORDERABLES Performing Organization Address [facility]/ZIP Co de Phone Number [facility] [place] [address] * LDL Cholesterol, Direct (01/04/2022 12:50 AM EDT) LDL Cholesterol, Direct 66 mg/dL [facility] Comment: Lowest Risk: <100 mg/dL Lower Risk: 100-129 mg/dL Borderline High Risk: 130-159 mg/dL High Risk: 160-189 mg/dL Very High Risk: >nu=619 mg/dL Blood 01/04/2022 12:5 0 AM EDT 01/04/2022 1:24 AM EDT Narrative Resulting Agency Comment Spec In Lab Moi Ledezma MD CHEMISTRY ORDERABLES [facility] [place] [address] * HDL/Cholesterol Profile (01/04/2022 12:50 AM EDT) Cholesterol, Total 136 mg/dL [facility] Comment: Lower Risk: <200 mg/dL Average Risk: 200-239 mg/dL Higher Risk: >pt=643 mg/dL HDL Cholesterol 63 mg/dL [facility] [...] greater than or equal to 190 mg/dL. http://[email or web address].[email or web address]/UTV-LVH-Chqjsguqe Measure LDL if Total Cholesterol minus HDL Cholesterol is greater than 220 mg/dL. Adults aged 40-75 with LDL 70-189 mg/dL should have their 10 year ASCVD risk estimated with the ACC/AHA ASCVD risk try on baster http://tools.acc.org/AFPQE-Kxub-Kzphhlcoa/ Statin should be discussed if risk greater [...] Ledezma MD CHEMISTRY ORDERABLES Performing Organization Address [facility] de Phone Number [facility] [place] [address] * TSH (01/04/2022 12:50 AM EDT) Thyroid Stimulating Hormone 0.75 0.27 - 4.20 mcIU/mL [facility] Comment: Reference Interval (mcIU/mL): Females: ??First Trimester: 0.23-3.88 ??Second Trimester: 0.22-3.90 ??Third Trimester: 0.44-4.66 Blood 01/04/2022 12:5 0 AM EDT 01/04/2022 1:24 AM EDT Narrative Resulting Agency Comment Spec In Lab Moi Ledezma MD CHEMISTRY ORDERABLES Performing Organization Address [facility] de Phone Number [facility] [place] [address] * Phosphorus (01/04/2022 12:50 AM EDT) Phosphorus 2.7 2.5 - 4.5 mg/dL [facility] Blood 01/04/2022 12:5 0 AM EDT 01/04/2022 1:24 AM EDT Narrative Resulting Agency Comment Spec In Lab Moi Ledezma MD CHEMISTRY ORDERABLES Performing Organization Address [facility] Co de Phone Number [facility] [place] [address] * Magnesium (01/04/2022 12:50 AM EDT) Magnesium 0.84 0.69 - 1.07 mmol/L [facility] Blood 01/04/2022 12:5 0 AM EDT 01/04/2022 1:24 AM EDT Narrative Resulting Agency Comment Spec In Lab Moi Ledezma MD CHEMISTRY ORDERABLES Performing Organization Address City/[facility]/ZIP Co de Phone Number [facility] [place] [address] * (ABNORMAL) Basic Metabolic Panel (non-fasting) (01/04/2022 [...] CHEMISTRY ORDERABLES [facility] [place] [address] * COVID-19 PCR (01/04/2022 12:50 AM EDT) [...] using the Simplexa COVID-19 Direct Assay by [employer] as authorized by the FDA issued Emergency [...] Department of Pathology and Laboratory Medicine at [facility], certified under the Clinical Laboratory Improvement [...] fact sheets at the following FDA website: https://www.fda.gov/medical-devices/nqyfwjsonfx-jfmpswf-2632-vyyhy-46-eghystmrg- use-a wadtihmrasaut-daarecm-orbacsn/bgmqg-kgedodyzvnu-duep SARS-CoV-2 Source RACING BOARD MARKER Swab MA RY [facility] Nasopharyngeal Swab 01/05/20 12:50 AM EDT 01/04/2022 1:48 AM EDT Comment:Symptoms->Surveillan ce Narrative Resulting Agency Comment Spec In Lab Moi Ledezma MD MICROBIOLOGY - GENER AL ORDERABLES Performing Organization Address City/[facility]/ZIP Co de Phone Number [facility] [place] [address] * EKG 12 Lead (01/04/2022 12:45 AM EDT) Ventricular rate 94 BPM MUSE SYSTEM Atrial Rate 94 BPM MUSE SYSTEM P-R Interval 140 ms MUSE SYSTEM QRS Duration 92 ms MUSE SYSTEM Q-T Interval 370 ms MUSE SYSTEM QTC Calculated (Bezet) 462 ms MUSE SYSTEM Calculated P [place] 69 degrees MUSE SYSTEM Calculated R [place] 2 degrees MUSE SYSTEM Calculated T [place] 89 degrees MUSE SYSTEM INTERPRETATION Normal sinus rhythm Low voltage QRS Nonspecific ST and T wave abnormality Abnormal ECG When compared with ECG of 13-NOV-1999 14:45, ST now depressed in Anterior leads Nonspecific T wave abnormality now evident in Lateral leads Confirmed by MD Umm, Geraldo Espinoza ([id number]) on 01/04/2022 1:03:04 PM MUSE SYSTEM 01/04/2022 [...] O RDERABLES [facility] [place] [address] * CARDIAC CATHETERIZATION (01/03/2022 11:45 PM EDT) Anatomical Region Laterality Modality Other Narrative 01/03/2022 11:54 PM EDT ?[facility] ? Cardiac Catheterization/Intervention Report ? Patient Name: Afua Rosales. ? Procedure Date: 01/03/2022 ? A #: [id number] ? Primary Physician: Moi Ledezma ? Case #: [id number] ? File Name: [id number] ? Catheterization Order Number: [id number] ? [facility] ? Final Report [place], [place] ? Patient Name: ? Afua A. Silver ?ID#: ?[id number] ? : ?1975 ? Procedure Date: ? [...] was ?designated as ASA Class IV. The [facility] clinical frailty scale is 5: Mildly ?Frail. ? Diagnostic Tests: ?Electrocardiography: ? EKG was assessed by ECG. EKG was Abnormal. EKG showed ST Deviation ? >= 0.5 mm and other abnormality. ?Medications Prior to Procedure: ? Aspirin, Statin and Thrombolytic (any). ? Indications for Diagnostic Cath: ?The priority of the diagnostic procedure was Emergent. The indication for ?the malthouse laborer visit is ACS less than or equal [...] ?SH guiding catheter and a 3.5 Fr [facility] [place] [address] ??20 Mhz. ??Imaging ?was successful. ??Image quality was excellent. ??The mid RCA showed severe ?diffuse atherosclerotic plaque. ??Measurements were performed after ?pre-dilation. ?Post Intervention: The stent was well expanded and apposed. ?Intravascular Ultrasound was performed in the distal RCA using a 6 Fr JR ?4 SH guiding catheter and a 3.5 Fr [facility] ??20 Mhz. ?Imaging was successful. ??Image [...] dose administered prior to arrival in the malthouse laborer. ?Recommended anti-platelet/anti-thrombotic regimen: ?Start aspirin 81 mg daily now and continue for indefinitely. ?Start clopidogrel 75 mg daily now and continue for 12 months then stop. ?These recommendations are made at the time of the intervention. Patient ?and provider preferences or a changing clinical situation may require ?modification of this regimen. Consult [facility] Interventional Cardiology for ?questions. ?The 1 year [...] against any medical treatment. Consult ?http://tools.acc.org/DAPTriskapp/#!/content/calculator/ or [facility] ?Interventional Cardiology for questions ? Conclusions: ?* [...] Procedure Note Moi Ledezma MD - 01/14/2022 [facility] Cardiac Catheterization/Intervention Report Patient Name: Afua Rosales Procedure Date: 01/03/2022 A #: [id number] Primary Physician: Moi Ledezma Case #: [id number] File Name: [id number] Catheterization Order Number: [id number] [facility] FinalReport [place], [place] Patient Name: Afua Rosales ID#:[id number] :1975 Procedure Date: January 03, 2022 Case [...] patientwas designated as ASA Class IV. The [facility] clinical frailty scale is 5:Mildly Frail. Diagnostic Tests: Electrocardiography: EKG was assessed by ECG. EKG was Abnormal. EKG showed STDeviation >= 0.5 mm and other abnormality. Medications Prior to Procedure: Aspirin, Statin and Thrombolytic (any). Indications for Diagnostic Cath: The priority of the diagnostic procedure was Emergent. Theindication for the malthouse laborer visit is ACS less than or equal [...] SH guiding catheter and a 3.5 Fr [facility] [place] [facility] 20 Mhz.Imaging was successful. Image quality was excellent. The mid RCA showedsevere diffuse atherosclerotic plaque. Measurements were performed after pre-dilation. Post Intervention: The stent was well expanded and apposed. Intravascular Ultrasound was performed in the distal RCA using a 6Fr JR 4 SH guiding catheter and a 3.5 Fr [facility] 20 Mhz. Imaging was successful. Image quality was excellent. The distalRCA showed severe diffuse atherosclerotic plaque. Measurements were performed after pre-dilation. Post Intervention: The stent was well expanded and apposed. Indication for Intervention: Coronary intervention was indicated for primary therapy for an acute myocardial infarction. The priority for the procedure was Emergent.The [facility] indication for the procedure was STEMI (after [...] The lesion was predilated with a 2.00mm [id number] MM balloon with a maximum inflation pressure [...] dose administered prior to arrival in the malthouse laborer. Recommended anti-platelet/anti-thrombotic regimen: Start aspirin 81 mg daily now and continue for indefinitely. Start clopidogrel 75 mg daily now and continue for 12 months thenstop. These recommendations are made at the time of the intervention.Patient and provider preferences or a changing clinical situation mayrequire modification of this regimen. Consult [facility] Interventional Cardiologyfor questions. The 1 year bleeding [...] or against any medical treatment.Consult http://tools.acc.org/DAPTriskapp/#!/content/calculator/ or [facility] Interventional Cardiology for questions Conclusions: * Two [...] O RDERABLES [facility] [place] [address] * (ABNORMAL) POCT Glucose (01/03/2022 10:56 PM EDT) Glucose, POC 265(H) 65 - 199 mg/dL [facility] Comment: Supplemental ranges: <140 mg/dL before meals <180 mg/dL all other times of the day Blood 01/03/2022 10:5 6 PM EDT 01/03/2022 10:56 PM EDT Moi Ledezma MD POINT OF CARE TEST O RDERABLES [facility] [place] [address] * (ABNORMAL) Point of Care Blood Gas [...] normal MCHC. POC Bgas Loc CC LAB [facility] Blood 01/03/2022 10:3 8 PM EDT 01/09/2022 12:00 PM EDT Geraldo Salomon MD CHEMISTRY ORDERABLES [facility] [place] [address] * (ABNORMAL) POCT Glucose (01/03/2022 10:37 PM EDT) Glucose, POC 63(L) 65 - 199 mg/dL [facility] Comment: Supplemental ranges: <140 mg/dL before meals <180 mg/dL all other times of the day Blood 01/03/2022 10:3 7 PM EDT 01/03/2022 10:37 PM EDT Moi Ledezma MD POINT OF [place] [address] documented in this encounter Visit Diagnoses Diagnosis [...] Routine documented in this encounter Care Teams Diamond Blender Relationship Specialty Start Date End Date Felisha Juan, TOBACCO SIEVE OPERATOR [address] [place] [address] PCP - General Family Medicine 10/29/15 01/29/22 documented as of this encounter
--- OUTSIDE RECORDS SUMMARY | 2024-04-08 00:39 | XMS_ITS | Encounter Summary ---
Author Organization On License Of [facility] Address [facility] [place] [address] Care Team Providers Care Brick Or Block Maker Name Role Phone Felisha Juan APRN Primary Care Provider + [phone] Encounter Details Date Type Department Care Team (Late st Contact Info) Description 01/12/2022 External Results Administration [facility] [place] [address] Social History Tobacco Use Types Packs/Day Years [...] on filedocumented in this encounter Care Teams Brick Or Block Maker Relationship Specialty Start Date End Date Felisha Juan APRN [address] [place] [address] PCP - General Family Medicine 10/29/15 01/29/22 documented as of this encounter
--- OUTSIDE RECORDS SUMMARY | 2024-04-08 00:39 | XMS_ITS | Encounter Summary ---
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, LEFT ARM PAIN Karie Lindsey APRN [address] [place] [address] [facility] [address] [place] [phone] Referral ID Status Reason Start Date Expiration Date Visits Requested Visits Authorized [id number] Authorized Consult, Test & Treat PCP Updated and/or Approved 03/15/2024 03/15/2025 6 6 Encounter Details Date Type Department Care Team (Late st Contact Info) Description 04/02/2024 Transcribe Orders eDH Incoming Referrals [phone] Karie Lindsey DERMATOPATHOLOGIST [address] [place], [place] [id number] Left arm pain Social History Tobacco Use Types Packs/Day Years [...] Associated Diagnoses Orde r Schedule Referral to Neurology Outpatient Referral Routine Left arm pain Ordered: 04/02/2024 documented as of this encounter Visit Diagnoses Diagnosis Left arm pain Pain in limb documented in this encounter Care Teams User Experience Analyst Relationship Specialty Start Date End Date Karie Lindsey APRN [address] [place] [address] PCP - General Internal Medicine 04/02/24 documented as of this encounter
--- OUTSIDE RECORDS SUMMARY | 2024-04-08 00:39 | XMS_ITS | Clinical Summary ---
Author Organization [facility] Address [facility] [place] [address] Care Team Providers Care Forest Ecologist Name Role Phone Karie Lindsey DEMETRIS Primary Care Provider + [phone] Allergies Active Allergy Reactions Criticality Noted Date [...] CIS - DISEASES OF NAIL NEC 01/11/2008 Encounters Date Type Department Care Team Description 04/02/2024 Transcribe Orders eDH Incoming Referrals [phone] Karie Lindsey APRN Left arm pain from Last 3 Months Immunizations Name Administration Dates Next Due Influenza [...] DM Creatinine yearly 01/06/2023 01/06/2022, 01/05/2022, 01/04/2022 Zoster vaccine (1 of 2) 2024 Covid-19 Vaccine (1 - season) 2024 Influenza (Flu) vaccine (1 o f [...] EDT) Glucose 123 65 - 199 mg/dL [facility] Comment:Diabetes: >=200 mg/d L plus symptoms Blood Urea Nitrogen 13 8 - 18 mg/dL [facility] Creatinine 0.77 0.70 - 1.20 mg/dL [facility] Sodium 137 135 - 145 mmol/L [facility] Potassium 4.0 3.5 - 5.0 mmol/L [facility] Comment: Please note: ??Patients with WBC >100,000 may have falsely elevated Potassium levels. ??For accurate Potassium quantification in these patients send serum separator tube (gold top) for subsequent determinations. ??Contact the Clinical Chemistry Laboratory if there are any questions. Chloride 102 98 - 107 mmol/L [facility] Carbon Dioxide 26 22 - 31 mmol/L [facility] Anion Gap 9 5 - 15 mmol/L [facility] Calcium 9.2 8.5 - 10.5 mg/dL [facility] Est Glomerular Filtration Rate 92 >=60 mL/min/1. 73 m?? [facility] Comment: This patient? s estimated [...] In Lab Ray Salomon MD CHEMISTRY ORDERABLES [facility] [place] [address] * (ABNORMAL) Hemoglobin A1c (01/04/2022 12:50 AM EDT) Hemoglobin A1c 8.0(H) 4.3 - 5.6 % [facility] Comment: Reference Range: 4.3 - [...] Mellitus, Diabetes Care 2013; 36: Suppl. 1, S67-84 Estimated Average Glucose 183 mg/dL [facility] Comment: eAG equivalents for HbA1c [...] into estimated average glucose values. ??Diabetes Care 2008:31(8):2775-8864. Blood 01/04/2022 12:5 0 AM EDT 01/04/2022 1:24 AM EDT Narrative Resulting Agency Comment Spec In Lab Kane Ledezma MD CHEMISTRY ORDERABLES [facility] [place] [address] * U Albumin/Cre Ratio (09/29/2017 11:30 AM EST) Albumin / Creatinin Ratio, Urine 8 0 - 29 mcg/mg Cr [facility] Comment: Reference Ranges: <30 mcg/mg: [...] 2, 357? 362 Albumin, Urine 3.3 mg/L [facility] Creatinine, Urine 42 mg/dL [facility] Urine specimen (specimen) 09/29/2017 11:30 AM EST 09/29/2017 11:40 AM EST Narrative Resulting Agency Comment Spec In Lab Francoiseshaila Hernandezmiguelraine DEMETRIS URINE ORDERABLES [facility] [place] [address] from Last 3 Months or Most Recently Relevant to Health Maintenance Advance Directives * Attempt Cardiopulmonary Resuscitation - Inpatient (Latest Code Status on File) Date Activated Date Inactivated Comments 01/03/2022 11:15 PM 01/06/2022 5:03 PM Question Answer Comments Code Status decision made by: Patient Care Teams Forest Ecologist Relationship Specialty Start Date End Date Karie Lindsey APRN [address] [place] [address] PCP - General Internal Medicine 04/02/24
--- OUTSIDE RECORDS SUMMARY | 2024-04-08 00:39 | XMS_ITS | Encounter Summary ---
Author Organization [facility] [place] [address] Care Team Providers Care Senior Ecologist Name Role Phone Felisha Juan APRN Primary Care Provider + [phone] Encounter Details Date Type Department Care Team (Late st Contact Info) Description 01/07/2022 Telephone Cardiac Rehab [facility] [place] [address] Nicole Walters RN Social History Tobacco Use [...] PM EDT Cardiac rehab- Patient discharged from [facility] prior to our team meeting her. She is s/p STEMI, PCI. I called her today and confirmed cardiac rehab referral to [facility]. Will send along her heart diagram, home walk program and brochure. documented in this encounter Plan of Treatment Not on file documented as of this encounter Visit Diagnoses Not on filedocumented in this encounter Care Teams Senior Ecologist Relationship Specialty Start Date End Date Felisha Juan APRN [address] [place] [address] PCP - General Family Medicine 10/29/15 01/29/22 documented as of this encounter
--- OUTSIDE RECORDS SUMMARY | 2024-04-08 00:40 | XMS_ITS | Encounter Summary ---
Author Organization [facility] [place] [address] Care Team Providers Care Small Offset Printer Name Role Phone Felisha Juan APRN Primary Care Provider + [phone] Encounter Details Date Type Department Care Team (Late st Contact Info) Description 08/04/2017 Telephone [place] [phone] Danielle Trejo, RN Social History Tobacco Use [...] on filedocumented in this encounter Care Teams Small Offset Printer Relationship Specialty Start Date End Date Felisha Juan APRN [address] [place] [address] PCP - General Family Medicine 10/29/15 01/29/22 documented as of this encounter
--- OUTSIDE RECORDS SUMMARY | 2024-04-08 00:40 | XMS_ITS | Encounter Summary ---
Author Organization [facility] Address [facility] [place] [address] Care Team Providers Care Talent Acquisition Lead Name Role Phone Felisha Juan APRN Primary Care Provider + [phone] Reason for Visit * Reason Onset Date Comments Medication Problem 11/19/2020 Encounter Details Date Type Department Care Team (Late st Contact Info) Description 11/19/2020 Telephone [place] [address] Carlos Ann MD [facility] [place] [address] Medication Problem Social History Tobacco Use Types [...] he asked to have them sent to [facility] instead. Delano stated the phone number to [facility] is [phone]. Please call Delano with any questions . [...] on filedocumented in this encounter Care Teams Talent Acquisition Lead Relationship Specialty Start Date End Date Felisha Juan, DEMETRIS [address] [place] [address] PCP - General Family Medicine 10/29/15 01/29/22 documented as of this encounter
--- OUTSIDE RECORDS SUMMARY | 2024-04-08 00:40 | XMS_ITS | Encounter Summary ---
Author Organization [facility] Jonathan [place]aur [address] Care Team Providers Care Sword Swallower Name Role Phone Felisha Juan APRN Primary Care Provider + [phone] Encounter Details Date Type Department Care Team (Late st Contact Info) Description 08/18/2017 Notes Only Endocrinology at [facility] [address] Danielle Trejo, GUSTAVO Social History Tobacco Use [...] on filedocumented in this encounter Care Teams Sword Swallower Relationship Specialty Start Date End Date Felisha Juan APRN [address] [place] [address] PCP - General Family Medicine 10/29/15 01/29/22 documented as of this encounter
--- OUTSIDE RECORDS SUMMARY | 2024-04-08 00:40 | XMS_ITS | Encounter Summary ---
Author Organization [facility] Address [facility] [place] [address] Care Team Providers Care Skein Dyer Name Role Phone Carey Hall MD Primary Care Provider [phone] Reason for Visit * Reason Comments Diabetic Foot Care Encounter Details Date Type Department Care Team ([facility] st Contact Info) Description 11/05/2012 2:45 PM EDT Office Visit Podiatry at [address] [place] [address] Ritesh Mackey Jr., [facility] [address] [place] [address] [place] [address] Other specified disease of nail (Primary Dx) [...] Primary documented in this encounter Care Teams Skein Dyer Relationship Specialty Start Date End Date Carey Hall MD [address] [place] [address] PCP - General 06/25/10 10/28/15 documented as of this encounter
--- OUTSIDE RECORDS SUMMARY | 2024-04-08 00:40 | XMS_ITS | Encounter Summary ---
Author Organization [facility] Address [facility] [place] [address] Care Team Providers Care Colored Leather Setter Name Role Phone Carey Hall MD Primary Care Provider [phone] Reason for Visit * Reason Comments Diabetic Foot Care Encounter Details Date Type Department Care Team ([facility] st Contact Info) Description 08/15/2013 9:30 AM EST Office Visit Podiatry at [address] [place] [address] Ritesh Mackey Jr., [facility] [address] [facility] [place] [address] Dermatophytosis of nail (Primary Dx); Pain in [...] on palpation. Nails display clinical signs of profncn-svjcrwxjef-sbfjur in appearance, thickened greater than 2mm, Brittle [...] clearly painful. This has been pretty dramatic form coverer past couple of months documented in this encounter Plan of Treatment Not on file documented as of this encounter Visit Diagnoses Diagnosis Dermatophytosis of nail- Primary Pain in limb Type II or unspecified type diabetes mellitus without mention of complication, not stated as uncontrolled documented in this encounter Care Teams Colored Leather Setter Relationship Specialty Start Date End Date Carey Hall MD [address] [place] [address] PCP - General 06/25/10 10/28/15 documented as of this encounter
--- OUTSIDE RECORDS SUMMARY | 2024-04-08 00:40 | XMS_ITS | Encounter Summary ---
Author Organization [facility] [place] [address] Care Team Providers Care Electroencephalograph Technologist Name Role Phone Felisha Juan APRN Primary Care Provider Encounter Details Date Type Department Care Team (Late st Contact Info) Description 11/12/2017 Telephone Endocrinology at [facility] [place] [address] Danielle Trejo, GUSTAVO Social History Tobacco Use [...] nurse. Boyfriend wants patient's Novolog refill [facility] [place] [facility] than [facility]. documented in this encounter Plan of Treatment Not on file documented as of this encounter Visit Diagnoses Not on filedocumented in this encounter Care Teams Electroencephalograph Technologist Relationship Specialty Start Date End Date Felisha Juan APRN [address] [place] [address] PCP - General Family Medicine 10/29/15 01/29/22 documented as of this encounter
--- OUTSIDE RECORDS SUMMARY | 2024-04-08 00:40 | XMS_ITS | Encounter Summary ---
Author Organization [facility] [place] [address] Care Team Providers Care Flash Ranging Crewmember Name Role Phone Yessica Felisha SQL DATABASE ADMINISTRATOR Primary Care Provider [phone] Reason for Visit * Reason Onset Date Comments Medication Refill 11/12/2017 Encounter Details Date Type Department Care Team (Late st Contact Info) Description 11/12/2017 [place] [address] Francoise Tan SQL DATABASE ADMINISTRATOR [facility] DR [place] [address] Diabetes mellitus without complication Social History Tobacco [...] uncontrolled documented in this encounter Care Teams Flash Ranging Crewmember Relationship Specialty Start Date End Date Felisha Juan APRN [address] [place] [address] PCP - General Family Medicine 10/29/15 01/29/22 documented as of this encounter
--- OUTSIDE RECORDS SUMMARY | 2024-04-08 00:40 | XMS_ITS | Encounter Summary ---
Author Organization [facility] Address [facility] [place] [address] Care Team Providers Care Welding Manager Name Role Phone Carey Hall MD Primary Care Provider [phone] Reason for Visit * Reason Comments Diabetic Foot Care Encounter Details Date Type Department Care Team ([facility] Contact Info) Description 07/09/2012 11:15 AM EST Office Visit Podiatry at [address] [place] [address] Ritesh Mackey Jr., [facility] [address] [facility] [place] [address] Other specified disease of nail; DM w/o [...] uncontrolled documented in this encounter Care Teams Welding Manager Relationship Specialty Start Date End Date Carey Hall MD [address] [place] [address] PCP - General 06/25/10 10/28/15 documented as of this encounter
--- OUTSIDE RECORDS SUMMARY | 2024-04-08 00:40 | XMS_ITS | Encounter Summary ---
Author Organization [facility] Address [facility] [place] [address] Care Team Providers Care Selling Manager Name Role Phone Carey Hall MD Primary Care Provider [phone] Encounter Details Date Type Department Care Team (Late st Contact Info) Description 02/07/2014 2:00 PM EDT Office Visit Podiatry at [address] [place] [address] Ritesh Mackey Jr., [address] [place] [address] Dermatophytosis of nail; Pain in limb; DM [...] on palpation. Nails display clinical signs of cmiugoi-evqpbybaok-dimbia in appearance, thickened greater than 2mm, Brittle [...] uncontrolled documented in this encounter Care Teams Selling Manager Relationship Specialty Start Date End Date Carey Hall MD [address] [address] PCP - General 06/25/10 10/28/15 documented as of this encounter
--- OUTSIDE RECORDS SUMMARY | 2024-04-08 00:40 | XMS_ITS | Encounter Summary ---
Author Organization [facility] [place] [address] Care Team Providers Care Insulation Board Coater Operator Name Role Phone Yessica Felisha WILLSON Primary Care Provider [phone] Encounter Details Date Type Department Care Team (Late st Contact Info) Description 11/23/2020 Notes Only Endocrinology at [facility] [place] [address] Micki Leone, FLATWORK SUPERVISOR Social History Tobacco Use Types Packs/Day Years Used Date Smoking Tobacco: Never Smokeless Tobacco: Never Sex and Gender Information Value Date Recorded Sex Assigned at Not on file Gender Identity Not on file Sexual Orientation Not on file documented as of this encounter Progress Notes * Micki Leone RMA - 11/23/2020 1:18 PM EDT [facility] for Diabetic Supplies faxed to [facility]. Confirmation received. documented in this encounter Plan of Treatment Not on file documented as of this encounter Visit Diagnoses Not on filedocumented in this encounter Care Teams Insulation Board Coater Operator Relationship Specialty Start Date End Date Felisha Juan APRN [address] [place] [address] PCP - General Family Medicine 10/29/15 01/29/22 documented as of this encounter
--- OUTSIDE RECORDS SUMMARY | 2024-04-08 00:40 | XMS_ITS | Encounter Summary ---
Author Organization [facility] [place] [address] Care Team Providers Care Ultrasound Spec Name Role Phone Yessica Felisha WILLSON Primary Care Provider + [phone] Reason for Visit * Reason Onset Date Comments Pump/sensor 02/07/2021 Encounter Details Date Type Department Care Team (Late st Contact Info) Description 02/07/2021 Telephone [place] [address] Tosin Solares Pump/sensor Social History Tobacco Use Types Packs/Day Years Used Date Smoking Tobacco: Never Smokeless Tobacco: Never Sex and Gender Information Value Date Recorded Sex Assigned at Not on file Gender Identity Not on file Sexual Orientation Not on file documented as of this encounter Miscellaneous Notes * Telephone Encounter - Tosin Solares - 02/07/2021 7:32 AM EDT Documentation request received from [facility]. 11/13/20 office notes routed Confirmed 02/07 documented in this encounter Plan of Treatment Not on file documented as of this encounter Visit Diagnoses Not on filedocumented in this encounter Care Teams Ultrasound Spec Relationship Specialty Start Date End Date Felisha Juan APRN [address] [place] [address] PCP - General Family Medicine 10/29/15 01/29/22 documented as of this encounter
--- OUTSIDE RECORDS SUMMARY | 2024-04-08 00:40 | XMS_ITS | Encounter Summary ---
Author Organization [facility] Address [facility] [place] [address] Care Team Providers Care Port Patrol Officer Name Role Phone Felisha Juan APRN Primary Care Provider Encounter Details Date Type Department Care Team (Late st Contact Info) Description 03/03/2016 Orders Only [place] [address] Rosie Tao MD [facility] [place] [address] Diabetes mellitus without complication Social History Tobacco [...] uncontrolled documented in this encounter Care Teams Port Patrol Officer Relationship Specialty Start Date End Date Felisha Juan APRN [address] [place] [address] PCP - General Family Medicine 10/29/15 01/29/22 documented as of this encounter
--- OUTSIDE RECORDS SUMMARY | 2024-04-08 00:40 | XMS_ITS | Encounter Summary ---
Author Organization [facility] [place] [address] Care Team Providers Care Computer Programmer Chief Name Role Phone Yessica Felisha EGGS INSPECTOR Primary Care Provider [phone] Reason for Visit * Reason Onset Date Comments Medication Refill 03/03/2019 Encounter Details Date Type Department Care Team (Late st Contact Info) Description 03/03/2019 Refill [place] [address] Francoise Tan EGGS INSPECTOR [facility] [place] [address] Diabetes mellitus without complication Social History Tobacco [...] uncontrolled documented in this encounter Care Teams Computer Programmer Chief Relationship Specialty Start Date End Date Felisha Juan APRN [address] [place] [address] PCP - General Family Medicine 10/29/15 01/29/22 documented as of this encounter
--- OUTSIDE RECORDS SUMMARY | 2024-04-08 00:40 | XMS_ITS | Encounter Summary ---
Author Organization [facility] Address [facility] [place] [address] Care Team Providers Care Technical Solutions Director Name Role Phone Felisha Juan APRN Primary Care Provider [phone] Reason for Visit * Reason Onset Date Comments Medication Refill 10/09/2020 Encounter Details Date Type Department Care Team (Late st Contact Info) Description 10/09/2020 Refill [place] [address] Breana Tee MD [facility] [place] [address] Controlled type 1 diabetes mellitus with retinopathy [...] 8:24 AM EST Script needs to go [employer] [address] [facility] Office [address] [place] [address] Patient test 6 times daily Transfer from previous 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
--- OUTSIDE RECORDS SUMMARY | 2024-04-08 00:40 | XMS_ITS | Encounter Summary ---
Author Organization [facility] [place] [address] Care Team Providers Care Assembler Plastic Boat Name Role Phone Yessica Felisha CRUSHER AND BINDER OPERATOR Primary Care Provider [phone] Encounter Details Date Type Department Care Team (Late st Contact Info) Description 08/17/2017 Notes Only Endocrinology at [facility] [place] [address] Huong Ovalle, RN Social History Tobacco Use [...] on filedocumented in this encounter Care Teams Assembler Plastic Boat Relationship Specialty Start Date End Date Felisha Juan APRN [address] [place] [address] PCP - General Family Medicine 10/29/15 01/29/22 documented as of this encounter
--- OUTSIDE RECORDS SUMMARY | 2024-04-08 00:40 | XMS_ITS | Encounter Summary ---
Author Organization [facility] Address [facility] [place] [address] Care Team Providers Care Translator Deaf Name Role Phone Carey Hall MD Primary Care Provider [phone] Reason for Visit * Reason Comments Diabetic Foot Care Other left foot 2nd toe in jury Encounter Details Date Type Department Care Team (Late st Contact Info) Description 02/20/2015 8:30 AM EDT Office Visit Podiatry at [address] [place] [address] Ritesh Mackey Jr., [address] [place] [place] [address] Dermatophytosis of nail; Foot pain, unspecified laterality; [...] on palpation. Nails display clinical signs of nwjpgll-ueligicbtf-smuamz in appearance, thickened greater than 2mm, Brittle [...] uncontrolled documented in this encounter Care Teams Translator Deaf Relationship Specialty Start Date End Date Carey Hall MD [address] [place] [address] PCP - General 06/25/10 10/28/15 documented as of this encounter
--- OUTSIDE RECORDS SUMMARY | 2024-04-08 00:40 | XMS_ITS | Encounter Summary ---
Author Organization [facility] Address [facility] [place] [address] Care Team Providers Care On Site Manager Name Role Phone Carey Hall MD Primary Care Provider [phone] Reason for Visit * Reason Comments Diabetic Foot Care Encounter Details Date Type Department Care Team ([facility] st Contact Info) Description 02/23/2012 4:00 PM EDT Office Visit Podiatry at [address] [place] [address] Ritesh Mackey Jr., DPM [address] [place] [address] [place] [address] Other specified disease of nail (Primary Dx) [...] encounter Miscellaneous Notes * Miscellaneous - Carrington, Formwork Carpenter - 03/05/2012 10:46 AM EDT documented in this encounter Plan of Treatment Not on file documented as of this encounter Visit Diagnoses Diagnosis Other specified disease of nail- Primary documented in this encounter Care Teams On Site Manager Relationship Specialty Start Date End Date Carey Hall MD [address] [place] [address] PCP - General 06/25/10 10/28/15 documented as of this encounter
--- OUTSIDE RECORDS SUMMARY | 2024-04-08 00:40 | XMS_ITS | Encounter Summary ---
Author Organization [facility] [place] [address] Care Team Providers Care Farmworker Brooder Farm Name Role Phone Felisha Juan DEMETRIS Primary Care Provider + [phone] Reason for Visit * Reason Comments Diabetes Encounter Details Date Type Department Care Team (Latest Contact Info) Description 09/29/2017 10:30 AM EST Office Visit [place] [address] Francoise Tan APRN [facility] [place] [address] Type 1 diabetes mellitus with proliferative retinopathy [...] Tan APRN - 09/29/2017 10:30 AM EST [facility] in [place] for dental care. Soft brush and floss Contact [facility] [place] documented in this encounter Progress Notes * [...] TSH ,microalbumin. Gaver her information to contact [facility] for dental care. This was a 38 minute office visit with 27 minutes spent counseling [id number] with patient and friend in the management [...] Stimulating Hormone 0.63 0.27 - 4.20 mlU/ML [facility] Blood specimen (specimen) 09/29/2017 11:39 AM EST 09/29/2017 11:49 AM EST Narrative Resulting Agency Comment Spec In Lab Francoise Tan APRN CHEMISTRY ORDERABLE S [facility] [place] [address] * (ABNORMAL) Hemoglobin A1c (09/29/2017 11:39 AM EST) Hemoglobin A1c 7.4(H) 4.3 - 5.6 % [facility] [...] Mellitus, Diabetes Care 2013; 36: Suppl. 1, M19-86 Estimated Average Glucose 166 mg/dL [facility] Comment: [...] into estimated average glucose values. ??Diabetes Care 2008:31(8):9206-4521. Blood specimen (specimen) 09/29/2017 11:39 AM EST 09/29/2017 11:49 AM EST Narrative Resulting Agency Comment Spec In Lab Francoise Tan APRN CHEMISTRY ORDERABLE S [facility] [place] [address] * U Albumin/Cre Ratio (09/29/2017 11:30 AM [...] 2, 357? 362 Albumin, Urine 3.3 mg/L [facility] Creatinine, Urine 42 mg/dL [facility] Urine specimen (specimen) 09/29/2017 11:30 AM EST 09/29/2017 11:40 AM EST Narrative Resulting Agency Comment Spec In Lab Francoise Tan APRN URINE ORDERABLES [facility] [place] [id number] documented in this encounter Visit Diagnoses Diagnosis 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 documented in this encounter Care Teams Farmworker Brooder Farm Relationship Specialty Start Date End Date Felisha Juan APRN [address] [place] [address] PCP - General Family Medicine 10/29/15 01/29/22 documented as of this encounter
--- OUTSIDE RECORDS SUMMARY | 2024-04-08 00:40 | XMS_ITS | Encounter Summary ---
Author Organization [facility] Address [facility] [place] [address] Care Team Providers Care Yard Truck Driver Name Role Phone Carey Hall MD Primary Care Provider [phone] Reason for Visit * Reason Comments Diabetic Foot Care Encounter Details Date Type Department Care Team ([facility] Contact Info) Description 08/31/2014 10:00 AM EST Office Visit Podiatry at [address] [place] [address] Ritesh Mackey Jr., [address] [address] Dermatophytosis of nail; Pain in extremity, unspecified [...] on palpation. Nails display clinical signs of [id number] in appearance, thickened greater than 2mm, Brittle [...] uncontrolled documented in this encounter Care Teams Yard Truck Driver Relationship Specialty Start Date End Date Carey Hall MD [address] [place] [address] PCP - General 06/25/10 10/28/15 documented as of this encounter
--- OUTSIDE RECORDS SUMMARY | 2024-04-08 00:40 | XMS_ITS | Encounter Summary ---
Author Organization [facility] [place] [address] Care Team Providers Care Poultry Packer Name Role Phone Felisha Juan APRN Primary Care Provider + [phone] Encounter Details Date Type Department Care Team (Latest Contact Info) Description 08/22/2016 9:00 AM EST Laboratory Appointment Lab at [facility] [place] [address] Type 1 diabetes mellitus with retinopathy Social [...] Urine 17 0 - 29 mcg/mg Cr [facility] [...] 2, 357? 362 Albumin, Urine 12.4 mg/L [facility] Creatinine, Urine 75 mg/dL [facility] Urine specimen (specimen) 08/22/2016 9:06 AM EST 08/22/2016 9:20 AM EST Narrative Resulting Agency Comment Spec In Lab Olegario Wright DO URINE ORDERABLES [facility] [place] [address] * Lipid panel (fasting) (08/22/2016 8:51 AM EST) Cholesterol, Total 129 <=239 mg/dL [facility] Triglyceride 56 <=199 mg/dL [facility] HDL Cholesterol 55 >=40 mg/dL [facility] LDL Cholesterol 63 <=190 mg/dL [facility] Cholesterol/HDL Ratio 2.3 ratio [facility] Lipid Interpretation See Note [facility] Comment: Lipid management should be guided by a patient? s ASCVD risk, goals and preferences. ACC/AHA Guidelines recommend high intensity statin if clinical ASCVD or LDL greater than or equal to 190 mg/dL. http://circ.ahajournals.org/content/early/.cir.1910249572.42364.7a Adults aged 40-75 with LDL 70-189 mg/dL should have their 10 year ASCVD risk estimated with the ACC/AHA ASCVD risk mechanical estimator http://tools.acc.org/OGNCO-Tgfl-Muuiqjfok/ Statin should be discussed if risk greater [...] In Lab Olegario Wright DO CHEMISTRY ORDERABLES [facility] [place] [address] * (ABNORMAL) Hemoglobin A1c (08/22/2016 8:51 AM EST) Hemoglobin A1c 7.4(H) 4.3 - 5.6 % [facility] [...] Mellitus, Diabetes Care 2013; 36: Suppl. 1, M27-33 Estimated Average Glucose 166 mg/dL [facility] Comment: eAG [...] resources are available on the ADA website: http://Kapta.Pixelle/DHMCadacalc Tj JESSICA, Mal J, Bk R, et al. ??Translating the A1C assay into estimated average glucose values. ??Diabetes Care 2008:31(8):2555-4140. Blood specimen (specimen) 08/22/2016 8:51 AM EST 08/22/2016 8:58 AM EST Narrative Resulting Agency Comment Spec In Lab Olegario Wright DO CHEMISTRY ORDERABLES Performing Organization Address City/State/[facility] Co de Phone Number [facility] [place] [address] documented in this encounter Visit Diagnoses Diagnosis Type 1 diabetes mellitus with retinopathy documented in this encounter Care Teams Poultry Packer Relationship Specialty Start Date End Date Felisha Juan APRN [address] [place] [address] PCP - General Family Medicine 10/29/15 01/29/22 documented as of this encounter
--- OUTSIDE RECORDS SUMMARY | 2024-04-08 00:40 | XMS_ITS | Encounter Summary ---
Author Organization [facility] Address [facility] [place] [address] Care Team Providers Care Manual Qa Tester Name Role Phone Carey Hall MD Primary Care Provider [phone] Reason for Visit * Reason Comments Nail Problem Encounter Details Date Type Department Care Team ([facility] Contact Info) Description 09/19/2011 10:15 AM EST Office Visit Podiatry at [address] [place] [address] Ritesh Mackey Jr., DPM [address] [place] [address] [place] [address] Other specified disease of nail (Primary Dx) [...] Primary documented in this encounter Care Teams Manual Qa Tester Relationship Specialty Start Date End Date Carey Hall MD [address] [place] [address] PCP - General 06/25/10 10/28/15 documented as of this encounter
--- OUTSIDE RECORDS SUMMARY | 2024-04-08 00:40 | XMS_ITS | Encounter Summary ---
Author Organization [facility] [place] [address] Care Team Providers Care Property Preservation Specialist Name Role Phone Felisha Juan APRN Primary Care Provider + [phone] Reason for Visit * Reason Onset Date Comments Pump/sensor 08/31/2019 Encounter Details Date Type Department Care Team (Late st Contact Info) Description 08/31/2019 Tele[place] [phone] Tosin Solares Pump/sensor Social History Tobacco Use Types Packs/Day Years Used Date Smoking Tobacco: Never Smokeless Tobacco: Never Sex and Gender Information Value Date Recorded Sex Assigned at Not on file Gender Identity Not on file Sexual Orientation Not on file documented as of this encounter Miscellaneous Notes * Telephone Encounter - Tosin Solares - 08/31/2019 10:47 AM EST Documentation request received from [place] [address] office notes routed Confirmed 08/31 documented in this encounter Plan of Treatment Not on file documented as of this encounter Visit Diagnoses Not on filedocumented in this encounter Care Teams Property Preservation Specialist Relationship Specialty Start Date End Date Felisha Juan APRN [address] [place] [address] PCP - General Family Medicine 10/29/15 01/29/22 documented as of this encounter
--- OUTSIDE RECORDS SUMMARY | 2024-04-08 00:40 | XMS_ITS | Encounter Summary ---
Author Organization [facility] Address [facility] [place] [address] Care Team Providers Care Track Coach Name Role Phone Yessica Felisha MANAGER LOGISTIC Primary Care Provider Encounter Details Date Type Department Care Team (Late st Contact Info) Description 01/03/2022 External [place] [address] Social History Tobacco Use Types Packs/Day Years [...] on filedocumented in this encounter Care Teams Track Coach Relationship Specialty Start Date End Date Felisha Juan APRN [address] [place] [address] PCP - General Family Medicine 10/29/15 01/29/22 documented as of this encounter
--- OUTSIDE RECORDS SUMMARY | 2024-04-08 00:40 | XMS_ITS | Encounter Summary ---
Author Organization [facility] Address [facility] [place] [address] Care Team Providers Care Coin Box Inspector Name Role Phone Jose Pittman Primary Care Provider + [phone] Reason for Visit * Reason Onset Date Comments Medication Refill 11/09/2017 Encounter Details Date Type Department Care Team (Late st Contact Info) Description 11/09/2017 Ref[place] [address] [address] [facility] [address] [place] [address] Diabetes mellitus without complication Social History Tobacco [...] uncontrolled documented in this encounter Care Teams Coin Box Inspector Relationship Specialty Start Date End Date Jose Pittman PA [address] [place] [address] PCP - General Internal Medicine 01/30/22 04/01/24 documented as of this encounter
--- OUTSIDE RECORDS SUMMARY | 2024-04-08 00:40 | XMS_ITS | Encounter Summary ---
Author Organization [facility] [place] [address] Care Team Providers Care General Accounting Clerk Name Role Phone Felisha Juan APRN Primary Care Provider + [phone] Encounter Details Date Type Department Care Team (Late st Contact Info) Description 07/30/2017 Notes Only Endocrinology at [facility] [place] [address] Huong Ovalle, RN Social History Tobacco Use [...] on filedocumented in this encounter Care Teams General Accounting Clerk Relationship Specialty Start Date End Date Felisha Juan APRN [address] [place] [address] PCP - General Family Medicine 10/29/15 01/29/22 documented as of this encounter
--- OUTSIDE RECORDS SUMMARY | 2024-04-08 00:40 | XMS_ITS | Encounter Summary ---
Author Organization [facility] Address [facility] [place] [address] Care Team Providers Care Clamp Forklift Operator Name Role Phone Carey Hall MD Primary Care Provider [phone] Encounter Details Date Type Department Care Team (Late st Contact Info) Description 08/08/2010 11:00 AM EST Office Visit Podiatry [address] [place] [address] Ritesh Mackey Jr., [employer] [employer] [facility] [address] [facility] [place] [address] Social History Tobacco Use Types Packs/Day Years Used Date Smoking Tobacco: Never Assessed Sex and Gender Information Value Date Recorded Sex Assigned at Not on file Gender Identity Not on file Sexual Orientation Not on file documented as of this encounter Plan of Treatment Not on file documented as of this encounter Visit Diagnoses Not on filedocumented in this encounter Care Teams Clamp Forklift Operator Relationship Specialty Start Date End Date Carey Hall MD [address] [place] [address] PCP - General 06/25/10 10/28/15 documented as of this encounter
--- OUTSIDE RECORDS SUMMARY | 2024-04-08 00:40 | XMS_ITS | Encounter Summary ---
Author Organization [facility] Address [facility] [place] [address] Care Team Providers Care Metal Building Assembler Name Role Phone Felisha Juan APRN Primary Care Provider + [phone] Encounter Details Date Type Department Care Team ([facility] st Contact Info) Description 03/03/2016 [place] [phone] Akanksha Beltrán LPN Social History Tobacco Use [...] endo nurse line from Chary Boyd at [facility]. Insurance will not cover humalog will cover Novolog. Okay to switch with dosing is needed. ext [phone] documented in this encounter Plan of Treatment Not on file documented as of this encounter Visit Diagnoses Not on filedocumented in this encounter Care Teams Metal Building Assembler Relationship Specialty Start Date End Date Felisha Juan, DEMETRIS [address] [place] [address] PCP - General Family Medicine 10/29/15 01/29/22 documented as of this encounter
--- OUTSIDE RECORDS SUMMARY | 2024-04-08 00:40 | XMS_ITS | Encounter Summary ---
Author Organization [facility] Address [facility] [place] [address] Care Team Providers Care Planning Coordinator Name Role Phone Felisha Juan APRN Primary Care Provider [phone] Encounter Details Date Type Department Care Team (Late st Contact Info) Description 01/03/2022 Notes [place] [address] Madi Briceño MD [facility] [place] [address] Social History Tobacco Use Types Packs/Day Years [...] on filedocumented in this encounter Care Teams Planning Coordinator Relationship Specialty Start Date End Date Felisha Juan APRN [address] [place] [address] PCP - General Family Medicine 10/29/15 01/29/22 documented as of this encounter
--- OUTSIDE RECORDS SUMMARY | 2024-04-08 00:40 | XMS_ITS | Encounter Summary ---
Author Organization [facility] [place] [address] Care Team Providers Care Signal Tester Name Role Phone Felisha Juan DEMETRIS Primary Care Provider + [phone] Encounter Details Date Type Department Care Team (Latest Contact Info) Description 05/23/2019 8:30 AM EDT Office [place] [address] Francoise Tan APRN [facility] [place] [address] Type 1 diabetes mellitus with proliferative retinopathy [...] hypoglycemia and avoid severe hyperglycemia. She uses Verivue talking meter. Diabetes regimen: Basaglar 22 units [...] office visit with 28 minutes spent counseling [id number] with patient in themanagement of glucose levels, reviewing prevention and treatment of hypoglycemia. She does rotate her injection sites. 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
--- OUTSIDE RECORDS SUMMARY | 2024-04-08 00:40 | XMS_ITS | Encounter Summary ---
[place] [address] Care Team Providers Care Digital Coordinator Name Role Phone Felisha Juan APRN Primary Care Provider + [phone] Reason for Visit * Reason Onset Date Comments Medication Refill 08/12/2017 Encounter Details Date Type Department Care Team (Late st Contact Info) Description 08/12/2017 [place] [address] Ivette Hewitt V RN Controlled type 1 [...] severity documented in this encounter Care Teams Digital Coordinator Relationship Specialty Start Date End Date Felisha Juan APRN [address] [place] [address] PCP - General Family Medicine 10/29/15 01/29/22 documented as of this encounter
--- OUTSIDE RECORDS SUMMARY | 2024-04-08 00:40 | XMS_ITS | Clinical Summary ---
Author Organization [facility] Address [address] [place] [address] Care Team Providers Care Delivery Truck Driver Heavy Name Role Phone Unknown, Provider Primary Care [...] C Antibody Negative Negative 12/05/2021 11:10 EDT [facility] Blood VENOUS BLOOD / Unknown 12/04/2021 11:00 EDT 12/04/2021 21:57 EDT Provider Outr Resulting Lab CHEMISTRY & BLOOD GAS ORDERABLES [facility] [address] [place] [address] from Last 3 Months or Most Recently Relevant to Health Maintenance Care Teams Delivery Truck Driver Heavy Relationship Specialty Start Date End Date Unknown, Provider, PCP - General 01/18/16
--- OUTSIDE RECORDS SUMMARY | 2024-04-08 00:40 | XMS_ITS | Encounter Summary ---
Author Organization [facility] Address [facility] [place] [address] Care Team Providers Care Director Community Organization Name Role Phone Felisha Juan APRN Primary Care Provider + [phone] Encounter Details Date Type Department Care Team ([facility] st Contact Info) Description 11/13/2020 1:00 PM EDT Office [place] [address] Breana Tee MD [facility] [place] [address] Controlled type 1 diabetes mellitus with retinopathy [...] EDT Diabetes Follow-up Patient Evaluation [facility] Name: Kailey Hernandez Date: 11/13/20 CC: Diabetes management HPI: Kailey Hernandez is a 45 y.o.female with PMH significant for DM1 c/b b/l retinopathy and blindness who comes to the clinic for management of diabetes. Ms. Hernandez is doing well with no acute concerns about her DM management. Initially during the visit, she stated that she received a letter from [facility] that stated she can no longer receive [...] snacks/day * Breakfast: PB sandwich * Lunch: [facility]? steak on a burger bun * Dinner: Part of a subway sandwich * Snacks: Crackers, cheese * Desserts: No * Drinks: No 2019QI Exercise: Predominantly walking Prevention: Statin: Pravastatin 20 mg (no hx of intolerance) NATE/ARB: None Support and Resources: - Visit with automobile spring repairer in the last 2 years: No ROS: [...] them as documented. Olegario Wright DO, MS Wool Shearing Supervisorbanana expert Section of Endocrinology [facility] documented in this encounter Plan of Treatment Not on file documented as of this encounter Visit Diagnoses Diagnosis Controlled type 1 diabetes mellitus with retinopathy of both eyes, macular edema presence unspecified, unspecified retinopathy severity documented in this encounter Care Teams Director Community Organization Relationship Specialty Start Date End Date Felisha Juan, DEMETRIS [address] [place] [address] PCP - General Family Medicine 10/29/15 01/29/22 documented as of this encounter
--- OUTSIDE RECORDS SUMMARY | 2024-04-08 00:40 | XMS_ITS | Encounter Summary ---
Author Organization [facility] Address [address] [place] [address] Care Team Providers Care Samples And Repairs Preparer Name Role Phone Unknown, Provider Primary Care Provider [phone] Encounter Details Date Type Department Care Team (Late st Contact Info) Description 12/04/2021 Lab Requisition [facility] Pathology & Laboratory Medicine - [facility] [address] [place] [address] Outr Resulting Lab, Provider Social History Tobacco [...] 4th Generation Negative Negative 12/05/2021 10:51 EDT [facility] Comment:If acute HIV-1 infec tion is suspected in a high risk patient, submit plasma specimen for HIV-1 RNA quantitation test. Blood VENOUS BLOOD / Unknown 12/04/2021 11:00 EDT 12/04/2021 22:05 EDT Narrative [facility] - 12/05/2021 10:51 EDT Fourth Generation assay performed on the Siemens Centaur XPT. Provider Outr Resulting Lab IMMUNOLOGY A ND SEROLOGY ORDERABLES [facility] [address] [place] [address] documented in this encounter Visit Diagnoses Not on filedocumented in this encounter Care Teams Samples And Repairs Preparer Relationship Specialty Start Date End Date Unknown, Provider, PCP - General 01/18/16 documented as of this encounter
--- OUTSIDE RECORDS SUMMARY | 2024-04-08 00:40 | XMS_ITS | Encounter Summary ---
Author Organization [facility] Address [address] [place] [address] Care Team Providers Care Project Lead Name Role Phone Unknown, Provider Primary Care Provider Encounter Details Date Type Department Care Team (Late st Contact Info) Description 01/17/2016 Results Only [facility] [phone] Felisha Mckinnon NP [address] [place] [address] Social History Tobacco Use Types Packs/Day Years [...] ? KAILEY HERNANDEZ ? Accession #: ? [id number] ? : ? 1975 (Age: 40) ??F [...] types 16,18,31,33,35, 39,45,51,52,56,58, 59,66, and 68 by product marketing consultant mediated amplification. Comments Document reviewed and electronically signed by: ? System Interface ? Report date: 02/01/2016 By the signature above, the attending physician certifies that he/she has personally conducted a gross and/or microscopic examination of the described specimens and rendered or confirmed the above diagnosis. End of Report [facility] 01/17/2016 01/18/2016 Felisha Koshowski SUBWAY TRAIN DRIVER PATHOLOGY ORDERABLES [facility] [address] [place] [address] documented in this encounter Visit Diagnoses Not on filedocumented in this encounter Care Teams Project Lead Relationship Specialty Start Date End Date Unknown, Provider, PCP - General 01/18/16 documented as of this encounter
--- OUTSIDE RECORDS SUMMARY | 2024-04-08 00:40 | XMS_ITS | Encounter Summary ---
Author Organization [facility] Address [facility] [place] [address] Care Team Providers Care Underwriting Manager Name Role Phone Felisha Juan APRN Primary Care Provider + [phone] Reason for Visit * Reason Comments Diabetes Encounter Details Date Type Department Care Team ([facility] Contact Info) Description 08/22/2016 10:00 AM EST Office [place] [address] Rosie Diamond MD [facility] [place] [address] Pre-existing type 1 diabetes mellitus in childbirth [...] day to have your insulin doses adjusted. [facility] Endocrine clinic office documented in this encounter [...] management and to provide a review of [facility] diabetes care. Diabetes History: Kailey Hernandez has had diabetes Type 1 since age of 7 years. When initially diagnosed, she was extremely fatigued, had polyuria, weight loss, and polydypsia. She was followed by an wallpaper scraper- Dr Hernandez in [place], [place]. She is here for establishment of care since she has moved to [facility]. Her last visit was the initial visit. [...] in 4 weeks, RTC in 4 months custodial diabetes care: Medications - Outpatient treatment regimen recommendations pending based on the hospital course. Monitoring - continue BG tid ac & hs Diet - low fat/low carb diet Exercise - weight-bearing exercise 30 min/day, as tolerated Thank you for the consult D/w Dr Ann, this was a resident only encounter Rosie Diamond MD Endocrine Fellow Pager- [phone] Insulin Discharge Instructions . Instructions for Lantus [...] juice or regular (not diet) soda 6 ERNs small box of raisins 4 glucose tablets [...] day to have your insulin doses adjusted. [facility] Endocrine clinic office * Carlos Ann MD [...] delivery documented in this encounter Care Teams Underwriting Manager Relationship Specialty Start Date End Date Felisha Juan APRN [address] [place] [address] PCP - General Family Medicine 10/29/15 01/29/22 documented as of this encounter
--- OUTSIDE RECORDS SUMMARY | 2024-04-08 00:40 | XMS_ITS | Encounter Summary ---
Author Organization [facility] Address [facility] [place] [address] Care Team Providers Care Floor Broker Name Role Phone Felisha Juan APRN Primary Care Provider + [phone] Reason for Visit * Reason Comments Diabetes * Consultation (Routine) - Closed Specialty Diagnoses / Procedures Referred By Contdelmi t Referred To Contact Endocrinology Diagnoses Diabetes Mellitus Type 1, uncontrolled w/ Ophthalmic comps Felisha Juan APRN [address] [place] [address] [facility] Endocrinology [address] [place] [phone] Referral ID Status Reason Start Date Expiration Date V isits Requested Visits Authorized [id number] Closed Consult, Test & Treat Connection [facility] 10/29/2015 10/28/2016 1 1 Encounter Details Date Type Department Care Team (Late st Contact Info) Description 12/11/2015 9:30 AM EDT Office [place] [address] [facility] [place] [address] [facility] [place] [address] Type 1 diabetes mellitus with diabetic retinopathy, [...] day to have your insulin doses adjusted. [facility] Endocrine clinic office documented in this encounter Progress Notes * Olegario Wright DO - 12/18/2015 3:49 PM EDT I have seen the patient and reviewed Dr Tao's history and I agree with the details as written. The assessment and plan were formulated in discussion with me and I agree with them as documented. Olegario Wright DO, MS Staff Private Household Worker * Rosie Tao MD - 12/10/2015 1:32 PM EDT Diabetes Outpatient Consult Date of Consultation: 12/10/2015 Consult Requested by: Dr. Juan Reason for Consultation: Kailey Hernandez is a 40 y.o. years old female with PMH significant for DM .We are being consulted to assist with diabetes management and to provide a review of halfway diabetes care. Diabetes History: Kailey Hernandez has had diabetes Type 1 since age 7 years. When initially diagnosed, she was extremely fatigued, had polyuria, weight loss, and polydypsia. She was followed by an sustainable agriculture faculty- Dr Hernandez in [place], [place]. She is here for establishment of care since she has moved to [facility]. She currently used lantus and a [...] in 4 weeks, RTC in 4 months watermelon harvesting supervisor diabetes care: Medications - Outpatient treatment regimen recommendations pending based on the hospital course. Monitoring - continue BG tid ac & hs Diet - low fat/low carb diet Exercise - weight-bearing exercise 30 min/day, as tolerated Thank you for the consult D/w Dr Adriana Tao MD Endocrine Fellow Pager- [phone] Insulin Discharge Instructions . Instructions for Lantus [...] day to have your insulin doses adjusted. [facility] Endocrine clinic office documented in this encounter Plan of Treatment Not on file documented as of this encounter Results * Microalbumin, urine, random (08/22/2016 9:06 AM EST) Pathologist [facility] Albumin / Creatinin Ratio, Urine 17 0 - 29 mcg/mg Cr [facility] Comment: Reference Ranges: <30 mcg/mg: Normal [...] 2, 357? 362 Albumin, Urine 12.4 mg/L [facility] Creatinine, Urine 75 mg/dL [facility] Urine specimen (specimen) 08/22/2016 9:06 AM EST 08/22/2016 9:20 AM EST Narrative Resulting Agency Comment Spec In Lab Olegario Wright DO URINE ORDERABLES [facility] [place] [address] * Lipid panel (fasting) (08/22/2016 8:51 AM EST) Cholesterol, Total 129 <=239 mg/dL [facility] Triglyceride 56 <=199 mg/dL [facility] HDL Cholesterol 55 >=40 mg/dL [facility] LDL Cholesterol 63 <=190 mg/dL [facility] Cholesterol/HDL Ratio 2.3 ratio [facility] Lipid Interpretation See Note [facility] Comment: Lipid management should be guided by a patient? s ASCVD risk, goals and preferences. ACC/AHA Guidelines recommend high intensity statin if clinical ASCVD or LDL greater than or equal to 190 mg/dL. http://circ.ahajournals.org/content/early/.cir.3117618648.99635.7a Adults aged 40-75 with LDL 70-189 mg/dL should have their 10 year ASCVD risk estimated with the ACC/AHA ASCVD risk timber estimator http://tools.acc.org/PBRSG-Npyn-Gompifokl/ Statin should be discussed if risk greater [...] In Lab Olegario Wright DO CHEMISTRY ORDERABLES [facility] [place] [address] * (ABNORMAL) Hemoglobin A1c (08/22/2016 8:51 AM EST) Hemoglobin A1c 7.4(H) 4.3 - 5.6 % [facility] Comment: Reference Range: 4.3 [...] Mellitus, Diabetes Care 2013; 36: Suppl. 1, F77-70 Estimated Average Glucose 166 mg/dL [facility] Comment: eAG equivalents for HbA1c percentages: HbA1c(%) ?eAG(mg/dL) 6.0 ?126 6.5 ?140 7.0 ?154 7.5 ?169 8.0 ?183 8.5 ?197 9.0 ?212 9.5 ?226 10.0 ? 240 Limitations: The eAG calculation has not been validated on women, individuals below 18 years old and above 70 years old, and individuals with hemoglobinopathies. Additional resources are available on the ADA website: http://Godengo.InRadio/DHMCadacalc Tj JESSICA, Mal J, Bk R, et al. ??Translating the A1C assay into estimated average glucose values. ??Diabetes Care 2008:31(8):4964-3482. Blood specimen (specimen) 08/22/2016 8:51 AM EST 08/22/2016 8:58 AM EST Narrative Resulting Agency Comment Spec In Lab Olegario Wright DO CHEMISTRY ORDERABLES Performing Organization Address City/State/[facility] Co de Phone Number [facility] [place] [address] documented in this encounter Visit Diagnoses Diagnosis Type 1 diabetes mellitus with diabetic retinopathy, macular edema presence unspecified, unspecified retinopathy severity documented in this encounter Care Teams Floor Broker Relationship Specialty Start Date End Date Felisha Juan APRN [address] [place] [address] PCP - General Family Medicine 10/29/15 01/29/22 documented as of this encounter
--- OUTSIDE RECORDS SUMMARY | 2024-04-08 00:40 | XMS_ITS | Encounter Summary ---
Author Organization [facility] Address [facility] [place] [address] Care Team Providers Care Jr. Systems Administrator Name Role Phone Yessica Felisha LONG DISTANCE BILLING OPERATOR Primary Care Provider Encounter Details Date Type Department Care Team (Late st Contact Info) Description 11/21/2020 Orders [place] [address] Carlos Ann MD [facility] [place] [address] Controlled type 1 diabetes mellitus with retinopathy [...] severity documented in this encounter Care Teams Jr. Systems Administrator Relationship Specialty Start Date End Date Felisha Juan APRN [address] [place] [address] PCP - General Family Medicine 10/29/15 01/29/22 documented as of this encounter
--- OUTSIDE RECORDS SUMMARY | 2024-04-08 00:40 | XMS_ITS | Referral Summary ---
Author Organization [facility] Address [address] [place] [address] Care Team Providers Care Chandelier Maker Name Role Phone Unknown, Provider Primary Care [...] C Antibody Negative Negative 12/05/2021 11:10 EDT [facility] Blood VENOUS BLOOD / Unknown 12/04/2021 11:00 EDT 12/04/2021 21:57 EDT Provider Outr Resulting Lab CHEMISTRY & BLOOD GAS ORDERABLES [facility] [address] [place] [address] from Last 3 Months or Most Recently Relevant to Health Maintenance Care Teams Chandelier Maker Relationship Specialty Start Date End Date Unknown, Provider, PCP - General 01/18/16
--- OUTSIDE RECORDS SUMMARY | 2024-04-08 00:40 | XMS_ITS | Encounter Summary ---
Author Organization [facility] Address [facility] [place] [address] Care Team Providers Care Customer Greeter Name Role Phone Felisha Juan APRN Primary Care Provider + [phone] Encounter Details Date Type Department Care Team (Latest Contact Info) Description 04/18/2016 9:30 AM EDT Office [place] [address] Rosie Tao MD [facility] [place] [address] Type 1 diabetes mellitus with proliferative diabetic [...] and polydypsia. She was followed by an laborer pipeline- Dr Hernandez in [place], [place]. She is here for establishment of care since she has moved to [facility]. Her last visit was the [...] in 4 weeks, RTC in 4 months remote computer terminal operator diabetes care: Medications - Outpatient treatment regimen recommendations pending based on the hospital course. Monitoring - continue BG tid ac & hs Diet - low fat/low carb diet Exercise - weight-bearing exercise 30 min/day, as tolerated Thank you for the consult To be D/w Dr Ann, this was a resident only encounter Rosie Tao MD Endocrine Fellow Pager- [phone] Insulin Discharge Instructions . Instructions for Lantus [...] day to have your insulin doses adjusted. [facility] [place] * Carlos Ann MD [...] uncontrolled documented in this encounter Care Teams Customer Greeter Relationship Specialty Start Date End Date Felisha Juan, DEMETRIS [address] [place] [address] PCP - General Family Medicine 10/29/15 01/29/22 documented as of this encounter
--- OUTSIDE RECORDS SUMMARY | 2024-04-08 00:40 | XMS_ITS | Encounter Summary ---
Author Organization [facility] Address [facility] [place] [address] Care Team Providers Care Yam Curer Name Role Phone Carey Hall MD Primary Care Provider Reason for Visit * Reason Comments Routine Foot Care Encounter Details Date Type Department Care Team (Late st Contact Info) Description 04/11/2011 10:45 AM EDT Office Visit Podiatry [address] [place] [address] Ritesh Mackey Jr., DPM [address] [facility] [place] [address] Other specified disease of nail (Primary Dx) [...] will return in 12 weeks. Ritesh Mackey Jr. DPTej documented in this encounter Miscellaneous Notes * Miscellaneous - Carrington, Ceo Na - 05/01/2011 3:53 PM EDT documented in this encounter Plan of Treatment Not on file documented as of this encounter Visit Diagnoses Diagnosis Other specified disease of nail- Primary documented in this encounter Care Teams Yam Curer Relationship Specialty Start Date End Date Carey Hall MD [address] [place] [address] PCP - General 06/25/10 10/28/15 documented as of this encounter
--- OUTSIDE RECORDS SUMMARY | 2024-04-08 00:40 | XMS_ITS | Encounter Summary ---
Author Organization [facility] Address [address] [place] [address] Care Team Providers Care Pipe Coremaker Name Role Phone Unknown, Provider Primary Care Provider Encounter Details Date Type Department Care Team (Late st Contact Info) Description 12/04/2021 Lab Requisition [facility] Pathology & Laboratory Medicine - [facility] [address] [place] [address] Outr Resulting Lab, Provider Social History Tobacco [...] C Antibody Negative Negative 12/05/2021 11:[address] [facility] Blood VENOUS BLOOD / Unknown 12/04/2021 11:00 EDT 12/04/2021 21:57 EDT Provider Outr Resulting Lab CHEMISTRY & BLOOD GAS ORDERABLES [facility] [address] [place] [address] documented in this encounter Visit Diagnoses Not on filedocumented in this encounter Care Teams Pipe Coremaker Relationship Specialty Start Date End Date Unknown, Provider, PCP - General 01/18/16 documented as of this encounter
--- OUTSIDE RECORDS SUMMARY | 2024-04-08 00:40 | XMS_ITS | Encounter Summary ---
Author Organization [facility] [place] [address] Care Team Providers Care Scientist Immunology Name Role Phone Felisha Juan APRN Primary Care Provider [phone] Encounter Details Date Type Department Care Team (Late st Contact Info) Description 11/09/2017 Orders [place] [address] Francoise Tan APRN [facility] [place] [address] Social History Tobacco Use Types Packs/Day Years [...] on filedocumented in this encounter Care Teams Scientist Immunology Relationship Specialty Start Date End Date Felisha Juan APRN [address] [place] [address] PCP - General Family Medicine 10/29/15 01/29/22 documented as of this encounter
--- NOTE | 2024-04-13 07:25 | DI.RAD_ITS ---
Exam(s) RF BARIUM SWALLOW EXAM: RF BARIUM SWALLOW CLINICAL HISTORY: new dysphagia,r13.10 TECHNIQUE: 2D and realtime digital imaging was performed. CONTRAST MATERIAL: Thick and thin barium and barium tablet were administered. COMPARISON: CT CT UPPER EXTREMITY LT CTA from 02/15/2024 MR MR CERVICAL SPINE WO from 04/01/2024 FINDINGS: The PA and lateral chest films show normal heart size and clear lung garcia. The lateral obstetrics and gynecology professor view of the neck is unremarkable. Esophagus: The patient swallowed barium without difficulty. Noevidence for mucosal erosions. Nofol d thickening. No mass is visible. Nostricture. Motility: There is a normal primary stripping wave. tertiary contractions were noted. There is no hiatal hernia. Severe gastroesophageal reflux was observed during the exam. The barium tablet stuck in the vallecula but was washed down with multiple swallows of water. IMPRESSION: Gastroesophageal reflux and tertiary contractions. Barium tablet stuck in the vallecula which was wa shed down with multiple swallows of water. RADIATION DOSE DELIVERED: slim Pearce=9.33 mGy
[2024-04-13] MEDS: Barium Sulfate 98% W/W 140 ML BTL PO (10:08)
[2024-04-13] MEDS: Barium Sulfate 60% W/V 355 ML BTL PO (10:09)
[2024-04-13] MEDS: Barium Sulfate 700 MG TAB PO (10:10)
[2024-04-13] MEDS: Simethicone/Sod Bicarb/Cit Ac, 4 gram PACKET 1 PACKET PO (10:11)
== END 2024-04-13 02:38 ==
LOC: DI 02:18
PROVIDERS: PCP Nurse Practitioner; Visit Provider Nurse Practitioner Family
DX: K22.4 Dyskinesia of esophagus (principal)
CPT/HCPCS: 74221; J3490

== ENCOUNTER 2024-04-29 00:45 | Outpatient (CLI) | payer MEDICARE, MEDICAID, SELFPAY ==
--- OUTSIDE RECORDS SUMMARY | 2024-04-29 00:48 | XMS_ITS | Encounter Summary ---
Author Organization [facility] [place] [address] Care Team Providers Care Manager Multicultural Name Role Phone Felisha Juan APRN Primary Care Provider + [phone] Encounter Details Date Type Department Care Team (Late st Contact Info) Description 01/07/2022 Telephone Cardiac Rehab [facility] [place] [phone] Nicole Walters RN Social History Tobacco Use [...] PM EDT Cardiac rehab- Patient discharged from [facility] prior to our team meeting her. She is s/p STEMI, PCI. I called her today and confirmed cardiac rehab referral to [facility]. Will send along her heart diagram, home walk program and brochure. documented in this encounter Plan of Treatment Not on file documented as of this encounter Visit Diagnoses Not on filedocumented in this encounter Care Teams Manager Multicultural Relationship Specialty Start Date End Date Felisha Juan APRN [address] [place] [address] PCP - General Family Medicine 10/29/15 01/29/22 documented as of this encounter
--- OUTSIDE RECORDS SUMMARY | 2024-04-29 00:48 | XMS_ITS | Data Portability ---
Author Organization [place] - [facility], formerly 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 Unfortunately we are unable to download her CGM data today. We will try to get this next week. No changes to medication management were made today. She has cardiology follow-up this summer. She has been referred to [facility]NT for consideration of left ear [...] [address] [facility], [address] [facility], [place], [address], 11:46:21 metoprolol succinate ER 25 mg tablet,exte nded release 24 hr 2023 024 [address] [facility], [address] [place], [address], 13:59:01 Patient TargetsNo targets recorded. Patient Instructions Encounter Date Encounter Id Patient Instructions Last Modified By Organization Details Last Modified Time 09/25/2023 [id number] Kailey Shanks I will get in touch with Lucia so she can download your blood sugars next week. [email or web address] Not available 09/25/2023 10:01:34 12/22/2023 [id number] Kailey - slowly titrate your basaglar by [...] ser 342 mg/dL 74-106 high Not Available [facility] [address], [place], [address], 03/04/2024 03:12:18 06/11/2006/11/2023 creat inine , urine [...] 10_3/ uL 4.4-10 .8 normal Not Available [address] [place], [address] 07/05/2023 12:04:31 07/05/20 23 07/05/2023 COMPL ETE BLOOD COUNT W/DIF F RBC 4.52 10_6/ uL 3.93-5 .22 normal Not Available [address] [place], [address] 07/05/2023 12:04:31 07/05/20 23 07/05/2023 COMPL ETE BLOOD COUNT W/DIF F HGB 13.9 g/dL 11.2-1 5.7 normal Not Available [address] [place], [address] 07/05/2023 12:04:31 07/05/20 23 07/05/2023 COMPL ETE BLOOD COUNT W/DIF F HCT 40.3 % 36.0-4 6.0 normal Not Available [address] [place], [address] 07/05/2023 12:04:31 07/05/20 23 07/05/2023 COMPL ETE BLOOD COUNT W/DIF F MCV 89 fL 80-95 normal Not Available [address] [place], [address] 07/05/2023 12:04:31 07/05/20 23 07/05/2023 COMPL ETE BLOOD COUNT W/DIF F MCH 30.8 pg 27.0-3 3.0 normal Not Available [address] [place], [address] 07/05/2023 12:04:31 07/05/20 23 07/05/2023 COMPL ETE BLOOD COUNT W/DIF F MCHC 34.5 % 32.0-3 6.0 normal Not Available [address] [place], [address] 07/05/2023 12:04:31 07/05/20 23 07/05/2023 COMPL ETE BLOOD COUNT W/DIF F RDW 11.9 % 11.7-1 4.6 normal Not Available [address] [place], [address] 07/05/2023 12:04:31 07/05/20 23 07/05/2023 COMPL ETE BLOOD COUNT W/DIF F platelet count 204 10_3/ uL 130-40 0 normal Not Available [address] [place], [address] 07/05/2023 12:04:31 07/05/20 23 07/05/2023 COMPL ETE BLOOD COUNT W/DIF F MPV 9.6 fL 8.0-11 .0 normal Not Available [address] [place], [address] 07/05/2023 12:04:31 07/05/20 23 07/05/2023 COMPL ETE BLOOD COUNT W/DIF F neutrophils % 54.7 Not Available [address] [place], [address] 07/05/2023 12:04:31 07/05/20 23 07/05/2023 COMPL ETE BLOOD COUNT W/DIF F lymphocytes % 33.7 Not Available [address] [place], [address] 07/05/2023 12:04:31 07/05/20 23 07/05/2023 COMPL ETE BLOOD COUNT W/DIF F monocytes % 9.3 Not Available [address] [place], [address] 07/05/2023 12:04:31 07/05/20 23 07/05/2023 COMPL ETE BLOOD COUNT W/DIF F eosinophils % 1.5 Not Available [address] [place], [address] 07/05/2023 12:04:31 07/05/20 23 07/05/2023 COMPL ETE BLOOD COUNT W/DIF F basophils % 0.5 Not Available [address] [place], [address] 07/05/2023 12:04:31 07/05/20 23 07/05/2023 COMPL ETE BLOOD COUNT W/DIF F immature grans % 0.3 Not Available [address] [place], [address] 07/05/2023 12:04:31 07/05/20 23 07/05/2023 COMPL ETE BLOOD COUNT W/DIF F nucleated RBC 0.0 % 0.0-0. 3 normal Not Available [address] [place], [address] 07/05/2023 12:04:31 07/05/20 23 07/05/2023 COMPL ETE BLOOD COUNT W/DIF F absolute neutrophil count 3.53 10_3/ uL 1.2-6. 7 normal Not Available [address] [place], [address] 07/05/2023 12:04:31 07/05/20 23 07/05/2023 COMPL ETE BLOOD COUNT W/DIF F absolute lymphocyte count 2.18 10_3/ uL 1.2-3. 4 normal Not Available [address] [place], [address] 07/05/2023 12:04:31 07/05/20 23 07/05/2023 COMPL ETE BLOOD COUNT W/DIF F absolute monocyte count 0.60 10_3/ uL 0.1-0. 8 normal Not Available [address] [place], [address] 07/05/2023 12:04:31 07/05/20 23 07/05/2023 COMPL ETE BLOOD COUNT W/DIF F absolute eosinophil count 0.10 10_3/ uL 0.0-0. 7 normal Not Available [address] [place], [address] 07/05/2023 12:04:31 07/05/20 23 07/05/2023 COMPL ETE BLOOD COUNT W/DIF F absolute basophil count 0.03 10_3/ uL 0.0-0. 2 normal Not Available [address] [place], [address] 07/05/2023 12:04:31 07/05/20 23 07/05/2023 NGOZI IA ammonia < 10 umol/ L 11-32 low Not Available [address] [place], [address] 07/05/2023 12:13:31 07/05/20 23 07/05/2023 PROTH ROMBI N TIME prothrombin time 10.6 sec 9.1-11 .1 normal Not Available [address] [place], [address] 07/05/2023 12:39:32 07/05/20 23 07/05/2023 PROTH ROMBI N TIME INR 1.1 0.9-1. 1 normal Recom celia d INR thera peuti c range s for orall y admin ister ed drugs are as follo ws: -Barry dard Inten sity 2.0 to 3.0 -High er Inten sity 3.0 to 4.5 Not Available [address] [place], [address] 07/05/2023 12:39:32 07/05/20 23 07/05/2023 D-DIM ER D-dimer 767 NG/ml feu <500 high *Lite ratur e suppo rts the exclu marysol of DVT and/o r PE with a resul t less than 500 ng/ml FEU with this metho d.* Not Available [address] [place], [address] 07/05/2023 12:39:32 07/05/20 23 07/05/2023 COMPR EHENS JES METAB OLIC PANEL calcium 9.2 mg/dL 8.5-10 .1 normal Not Available [address] [place], [address] 07/05/2023 12:41:33 07/05/20 23 07/05/2023 COMPR EHENS JES METAB OLIC PANEL glucose 289 mg/dL 74-106 high Not Available Kalpesh casillas [address] [place], [address] 07/05/2023 12:41:33 07/05/20 23 07/05/2023 COMPR EHENS JES METAB OLIC PANEL BUN 16 mg/dL 7-18 normal Not Available Kalpesh casillas [address] [place], [address] 07/05/2023 12:41:33 07/05/20 23 07/05/2023 COMPR EHENS JES METAB OLIC PANEL creatinine 0.9 mg/dL 0.55-1 .02 normal Not Available [address] [place], [address] 07/05/2023 12:41:33 07/05/20 23 07/05/2023 COMPR EHENS [...] young er-ag ed adult s. Not Available [address] [place], [address] 07/05/2023 12:41:33 07/05/20 23 07/05/2023 COMPR EHENS JES METAB OLIC PANEL total protein 7.6 g/dL 6.4-8. 2 normal Not Available [address] [place], [address] 07/05/2023 12:41:33 07/05/20 23 07/05/2023 COMPR EHENS JES METAB OLIC PANEL albumin 3.7 g/dL 3.4-5. 0 normal Not Available [address] [place], [address] 07/05/2023 12:41:33 07/05/20 23 07/05/2023 COMPR EHENS JES METAB OLIC PANEL bilirubin, total 0.5 mg/dL 0.2-1. 0 normal Not Available [address] [place], [address] 07/05/2023 12:41:33 07/05/20 23 07/05/2023 COMPR EHENS JES METAB OLIC PANEL alk phos 109 U/L 46-116 normal Not Available [address] [place], [address] 07/05/2023 12:41:33 07/05/20 23 07/05/2023 COMPR EHENS JES METAB OLIC PANEL sodium 135 mmol/ L 136-14 5 low Not Available [address] [place], [address] 07/05/2023 12:41:33 07/05/20 23 07/05/2023 COMPR EHENS JES METAB OLIC PANEL potassium 4.8 mmol/ L 3.5-5. 1 normal Not Available [address] [place], [address] 07/05/2023 12:41:33 07/05/20 23 07/05/2023 COMPR EHENS JES METAB OLIC PANEL chloride 100 mmol/ L 98-107 normal Not Available [address] [place], [address] 07/05/2023 12:41:33 07/05/20 23 07/05/2023 COMPR EHENS JES METAB OLIC PANEL CO2 31.1 mmol/ L 21.0-3 2.0 normal Not Available [address] [place], [address] 07/05/2023 12:41:33 07/05/2007/05/2023 COMPR EHENS JES METAB OLIC PANEL anion gap 3.9 mmol/ L 3-11 normal Not Available [address] [place], [address] 07/05/2023 12:41:33 07/05/20 23 07/05/2023 COMPR EHENS JES METAB OLIC PANEL AST 34 U/L 15-37 normal Not Available Kalpesh [address] [place], [address] 07/05/2023 12:41:33 07/05/2007/05/2023 COMPR EHENS JES METAB OLIC PANEL ALT 51 U/L 14-59 normal Not Available Kalpesh [address] [place], [address] 07/05/2023 12:41:33 07/05/2007/05/2023 ETHYL ALCOH OL ethyl alcohol < 3.0 mg/dL <10 ETOH Refer ence Range = <10 mg/dL Legal Limit of Intox icati on is 80 mg/dL This test is inten ded only for Medic al purpo ses. Divid e resul t by 1000 to conve rt to %(w/v ) Not Available [address] [place], [address] 07/05/2023 12:41:34 07/05/20 23 07/05/2023 HCG QUANT [...] Month s 10,00 0-100 ,000 Not Available [address] [place], [address] 07/05/2023 12:41:34 07/05/20 23 07/05/2023 MAGNE SIUM magnesium 2.1 mg/dL 1.8-2. 4 normal Not Available [address] [place], [address] 07/05/2023 12:41:34 07/05/20 23 07/05/2023 TSH (W/RE F FT4) TSH (w/ref FT4) 0.80 uIU/m L 0.36-3 .74 normal NOTE: Supra -phys iolog ic doses of Bioti n(B7) may cause false negat jes resul ts. Not Available [address] [place], [address] 07/05/2023 12:41:35 07/05/20 23 07/05/2023 CARDI AC TROPO KANWAL I cardiac troponin I < 50 NG/L <or=60 Not Available [address] [place], [address] 07/05/2023 12:41:35 07/05/20 23 07/05/2023 URINA LYSIS color Yellow yellow Not Available Kalpesh casillas [address] [place], [address] 07/05/2023 14:53:39 07/05/20 23 07/05/2023 URINA LYSIS clarity Clear clear Not Available Kalpesh casillas [address] [place], [address] 07/05/2023 14:53:39 07/05/20 23 07/05/2023 URINA LYSIS specific gravity 1.015 1.005- 1.025 normal Not Available [address] [place], [address] 07/05/2023 14:53:39 07/05/20 23 07/05/2023 URINA LYSIS pH 7.5 5-8 normal Not Available Kalpesh casillas [address] [place], [address] 07/05/2023 14:53:39 07/05/20 23 07/05/2023 URINA LYSIS leukocyte esterase Trace negati ve abnormal Not Available [address] [place], [address] 07/05/2023 14:53:39 07/05/20 23 07/05/2023 URINA LYSIS nitrite Negati ve negati ve Not Available [address] [place], [address] 07/05/2023 14:53:39 07/05/20 23 07/05/2023 URINA LYSIS protein Negati ve mg/dL negati ve Not Available [address] [place], [address] 07/05/2023 14:53:39 07/05/20 23 07/05/2023 URINA LYSIS glucose 250 mg/dL negati ve abnormal Not Available [address] [place], [address] 07/05/2023 14:53:39 07/05/20 23 07/05/2023 URINA LYSIS ketones Negati ve mg/dL negati ve Not Available [address] [place], [address] 07/05/2023 14:53:39 07/05/20 23 07/05/2023 URINA LYSIS urobilinogen 0.2 mg/dL up to 0.2 Not Available [address] [place], [address] 07/05/2023 14:53:39 07/05/20 23 07/05/2023 URINA LYSIS bilirubin Negati ve negati ve Not Available [address] [place], [address] 07/05/2023 14:53:39 07/05/20 23 07/05/2023 URINA LYSIS blood Negati ve negati ve Not Available [address] [place], [address] 07/05/2023 14:53:39 07/05/20 23 07/05/2023 CARDI AC TROPO KANWAL I cardiac troponin I < 50 NG/L <or=60 Not Available [address] [place], [address] 07/05/2023 15:02:41 07/05/20 23 07/05/2023 URINA LYSIS color Yellow yellow Not Available Kalpesh casillas [address] [place], [address] 07/05/2023 15:03:40 07/05/20 23 07/05/2023 URINA LYSIS clarity Clear clear Not Available Kalpesh casillas [address] [place], [address] 07/05/2023 15:03:40 07/05/20 23 07/05/2023 URINA LYSIS specific gravity 1.015 1.005- 1.025 normal Not Available [address] [place], [address] 07/05/2023 15:03:40 07/05/20 23 07/05/2023 URINA LYSIS pH 7.5 5-8 normal Not Available Kalpesh casillas [address] [place], [address] 07/05/2023 15:03:40 07/05/20 23 07/05/2023 URINA LYSIS leukocyte esterase Trace negati ve abnormal Not Available [address] [place], [address] 07/05/2023 15:03:40 07/05/20 23 07/05/2023 URINA LYSIS nitrite Negati ve negati ve Not Available [address] [place], [address] 07/05/2023 15:03:40 07/05/20 23 07/05/2023 URINA LYSIS protein Negati ve mg/dL negati ve Not Available [address] [place], [address] 07/05/2023 15:03:40 07/05/20 07/05/2023 URINA LYSIS glucose 250 mg/dL negati ve abnormal Not Available [address] [place], [address] 07/05/2023 15:03:40 07/05/20 23 07/05/2023 URINA LYSIS ketones Negati ve mg/dL negati ve Not Available [address] [place], [address] 07/05/2023 15:03:40 07/05/20 23 07/05/2023 URINA LYSIS urobilinogen 0.2 mg/dL up to 0.2 Not Available [address] [place], [address] 07/05/2023 15:03:40 07/05/20 23 07/05/2023 URINA LYSIS bilirubin Negati ve negati ve Not Available [address] [place], [address] 07/05/2023 15:03:40 07/05/20 23 07/05/2023 URINA LYSIS blood Negati ve negati ve Not Available [address] [place], [address] 07/05/2023 15:03:40 07/05/20 23 07/05/2023 MICRO SCOPI C FINDI NGS WBC 0-2 hpf 0-5 Not Available Kalpesh casillas [address] [place], [address] 07/05/2023 15:03:40 07/05/20 23 07/05/2023 MICRO SCOPI C FINDI NGS RBC Negati ve hpf 0-2 Not Available Bettie suárez [address] [place], [address] 07/05/2023 15:03:40 07/05/20 23 07/05/2023 MICRO SCOPI C FINDI NGS epithelial cells Rare hpf negati ve Not Available [address] [place], [address] 07/05/2023 15:03:40 07/05/20 23 07/05/2023 MICRO SCOPI C FINDI NGS bacteria Rare hpf negati ve Not Available [address] [place], [address] 07/05/2023 15:03:40 07/05/20 23 07/05/2023 MICRO SCOPI C FINDI NGS crystals Negati ve hpf negati ve Not Available [address] [place], [address] 07/05/2023 15:03:40 07/05/20 23 07/05/2023 MICRO SCOPI C FINDI NGS mucus Negati ve negati ve Not Available [address] [place], [address] 07/05/2023 15:03:40 07/05/20 23 07/05/2023 MICRO SCOPI C FINDI NGS casts Negati ve lpf negati ve Not Available [address] [place], [address] 07/05/2023 15:03:40 07/05/20 23 07/05/2023 MICRO SCOPI C FINDI NGS C S indicated? Yes Not Available [address] [place], [address] 07/05/2023 15:03:40 07/05/20 23 07/06/2023 URINE CULTU RE urine culture Urine Cultu re Proba ble conta minat ed colle ction APPEA IVETTE Mixed Gram Posit jes Alta COLON Y COUNT Not Available [address] [place], [address] 07/06/2023 07:38:39 07/05/20 23 07/06/2023 URINE CULTU RE urine culture colon ies/m L 10,00 0 - 50,00 0 Day 1 Resul t ISOLA ANETA BELOW O:GPF M (ORGA NISM ID: [id number]) - GRAM POSIT JES ALTA ,MIXE D Urine Cultu re (ORGA NISM ID: 1.1) - COLON Y COUNT (ORGA NISM ID: 1.1) - 10,00 0 - 50,00 0 Not Available [address] [place], [address] 07/06/2023 07:38:39 07/05/20 23 07/07/2023 URINE CULTU RE urine culture Urine Cultu re Proba ble conta minat ed colle ction APPEA IVETTE Mixed Gram Posit jes Alta APPEA IVETTE Mixed Gram Posit jes Alta COLON Y COUNT Not Available [address] [place], [address] 07/07/2023 07:47:12 07/05/20 23 07/07/2023 URINE CULTU [...] 10,00 0 - 50,00 0 Not Available [address] [place], [address] 07/07/2023 07:47:12 08/21/19 24 08/21/2023 COMPL ETE BLOOD COUNT W/DIF F WBC 7.04 10_3/ uL 4.4-10 .8 normal Not Available [address] [place], [address] 08/21/2023 22:28:59 08/21/19 24 08/21/2023 COMPL ETE BLOOD COUNT W/DIF F RBC 4.44 10_6/ uL 3.93-5 .22 normal Not Available [address] [place], [address] 08/21/2023 22:28:59 08/21/19 24 08/21/2023 COMPL ETE BLOOD COUNT W/DIF F HGB 13.6 g/dL 11.2-1 5.7 normal Not Available [address] [place], [address] 08/21/2023 22:28:59 08/21/19 24 08/21/2023 COMPL ETE BLOOD COUNT W/DIF F HCT 39.8 % 36.0-4 6.0 normal Not Available [address] [place], [address] 08/21/2023 22:28:59 08/21/19 24 08/21/2023 COMPL ETE BLOOD COUNT W/DIF F MCV 90 fL 80-95 normal Not Available Kalpesh [address] [place], [address] 08/21/2023 22:28:59 08/21/19 24 08/21/2023 COMPL ETE BLOOD COUNT W/DIF F MCH 30.6 pg 27.0-3 3.0 normal Not Available [address] [place], [address] 08/21/2023 22:28:59 08/21/19 24 08/21/2023 COMPL ETE BLOOD COUNT W/DIF F MCHC 34.2 % 32.0-3 6.0 normal Not Available [address] [place], [address] 08/21/2023 22:28:59 08/21/19 24 08/21/2023 COMPL ETE BLOOD COUNT W/DIF F RDW 12.3 % 11.7-1 4.6 normal Not Available [address] [place], [address] 08/21/2023 22:28:59 08/21/19 24 08/21/2023 COMPL ETE BLOOD COUNT W/DIF F platelet count 181 10_3/ uL 130-40 0 normal Not Available [address] [place], [address] 08/21/2023 22:28:59 08/21/19 24 08/21/2023 COMPL ETE BLOOD COUNT W/DIF F MPV 9.5 fL 8.0-11 .0 normal Not Available [address] [place], [address] 08/21/2023 22:28:59 08/21/19 24 08/21/2023 COMPL ETE BLOOD COUNT W/DIF F neutrophils % 77.5 Not Available [place] [address] [place], [address] 08/21/2023 22:28:59 08/21/19 24 08/21/2023 COMPL ETE BLOOD COUNT W/DIF F lymphocytes % 15.2 Not Available Kole iglesias [address] [place], [address] 08/21/2023 22:28:59 08/21/19 24 08/21/2023 COMPL ETE BLOOD COUNT W/DIF F monocytes % 6.1 Not Available [address] [place], [address] 08/21/2023 22:28:59 08/21/19 24 08/21/2023 COMPL ETE BLOOD COUNT W/DIF F eosinophils % 0.4 Not Available [address] [place], [address] 08/21/2023 22:28:59 08/21/19 24 08/21/2023 COMPL ETE BLOOD COUNT W/DIF F basophils % 0.4 Not Available [address] [place], [address] 08/21/2023 22:28:59 08/21/19 24 08/21/2023 COMPL ETE BLOOD COUNT W/DIF F immature grans % 0.4 Not Available [address] [place], [address] 08/21/2023 22:28:59 08/21/19 24 08/21/2023 COMPL ETE BLOOD COUNT W/DIF F nucleated RBC 0.0 % 0.0-0. 3 normal Not Available [address] [place], [address] 08/21/2023 22:28:59 08/21/19 24 08/21/2023 COMPL ETE BLOOD COUNT W/DIF F absolute neutrophil count 5.45 10_3/ uL 1.2-6. 7 normal Not Available [address] [place], [address] 08/21/2023 22:28:59 08/21/19 24 08/21/2023 COMPL ETE BLOOD COUNT W/DIF F absolute lymphocyte count 1.07 10_3/ uL 1.2-3. 4 low Not Available [address] [place], [address] 08/21/2023 22:28:59 08/21/19 24 08/21/2023 COMPL ETE BLOOD COUNT W/DIF F absolute monocyte count 0.43 10_3/ uL 0.1-0. 8 normal Not Available [address] [place], [address] 08/21/2023 22:28:59 08/21/19 24 08/21/2023 COMPL ETE BLOOD COUNT W/DIF F absolute eosinophil count 0.03 10_3/ uL 0.0-0. 7 normal Not Available [address] [place], [address] 08/21/2023 22:28:59 08/21/19 24 08/21/2023 COMPL ETE BLOOD COUNT W/DIF F absolute basophil count 0.03 10_3/ uL 0.0-0. 2 normal Not Available [address] [place], [address] 08/21/2023 22:28:59 08/21/19 24 08/21/2023 COMPR EHENS JES METAB OLIC PANEL calcium 9.8 mg/dL 8.5-10 .1 normal Not Available [address] [place], [address] 08/21/2023 22:58:02 08/21/19 24 08/21/2023 COMPR EHENS JES METAB OLIC PANEL glucose 207 mg/dL 74-106 high Not Available Kalpesh casillas [address] [place], [address] 08/21/2023 22:58:02 08/21/19 24 08/21/2023 COMPR EHENS JES METAB OLIC PANEL BUN 17 mg/dL 7-18 normal Not Available Kalpesh casillas [address] [place], [address] 08/21/2023 22:58:02 08/21/19 24 08/21/2023 COMPR EHENS JES METAB OLIC PANEL creatinine 0.9 mg/dL 0.55-1 .02 normal Not Available [address] [place], [address] 08/21/2023 22:58:02 08/21/19 24 08/21/2023 COMPR EHENS [...] young er-ag ed adult s. Not Available [address] [place], [address] 08/21/2023 22:58:02 08/21/19 24 08/21/2023 COMPR EHENS JES METAB OLIC PANEL total protein 8.1 g/dL 6.4-8. 2 normal Not Available [address] [place], [address] 08/21/2023 22:58:02 08/21/19 24 08/21/2023 COMPR EHENS JES METAB OLIC PANEL albumin 4.0 g/dL 3.4-5. 0 normal Not Available [address] [place], [address] 08/21/2023 22:58:02 08/21/19 24 08/21/2023 COMPR EHENS JES METAB OLIC PANEL bilirubin, total 0.7 mg/dL 0.2-1. 0 normal Not Available [address] [place], [address] 08/21/2023 22:58:02 08/21/19 24 08/21/2023 COMPR EHENS JES METAB OLIC PANEL alk phos 104 U/L 46-116 normal Not Available [address] [place], [address] 08/21/2023 22:58:02 08/21/19 24 08/21/2023 COMPR EHENS JES METAB OLIC PANEL sodium 137 mmol/ L 136-14 5 normal Not Available [address] [place], [address] 08/21/2023 22:58:02 08/21/19 24 08/21/2023 COMPR EHENS JES METAB OLIC PANEL potassium 4.3 mmol/ L 3.5-5. 1 normal Not Available [address] [place], [address] 08/21/2023 22:58:02 08/21/19 24 08/21/2023 COMPR EHENS JES METAB OLIC PANEL chloride 100 mmol/ L 98-107 normal Not Available [address] [place], [address] 08/21/2023 22:58:02 08/21/19 24 08/21/2023 COMPR EHENS JES METAB OLIC PANEL CO2 30.1 mmol/ L 21.0-3 2.0 normal Not Available [address] [place], [address] 08/21/2023 22:58:02 08/21/19 24 08/21/2023 COMPR EHENS JES METAB OLIC PANEL anion gap 6.9 mmol/ L 3-11 normal Not Available [address] [place], [address] 08/21/2023 22:58:02 08/21/19 24 08/21/2023 COMPR EHENS JES METAB OLIC PANEL AST 32 U/L 15-37 normal Not Available Kalpesh [address] [place], [address] 08/21/2023 22:58:02 08/21/19 24 08/21/2023 COMPR EHENS JES METAB OLIC PANEL ALT 47 U/L 14-59 normal Not Available Kalpesh [place] [address] [place], [address] 08/21/2023 22:58:02 08/21/1908/21/2023 ETHYL ALCOH OL ethyl [...] conve rt to %(w/v ) Not Available [address] [place], [address] 08/21/2023 22:58:03 08/21/19 24 08/21/2023 MAGNE SIUM magnesium 2.1 mg/dL 1.8-2. 4 normal Not Available [address] [place], [address] 08/21/2023 22:58:04 08/21/19 24 08/21/2023 CARDI AC TROPO KANWAL I cardiac troponin I < 50 NG/L < or =60 Not Available [address] [place], [address] 08/21/2023 22:58:05 08/22/19 24 08/22/2023 URINE DRUG SCREE N ([facility] ) methadone Negati ve negati ve Not Available [address] [place], [address] 08/22/2023 00:55:06 08/22/19 24 08/22/2023 URINE DRUG SCREE N ([facility] ) benzodiazepi yoselyn Negati ve negati ve Benzo diaze pines are exten sivel y metab olize d and the paren t compo und may not be detec tarsha in urine . If clini elizabeth suspi cion is high, pleas e notif y Lab for send- out testi ng. Not Available [address] [place], [address] 08/22/2023 00:55:06 08/22/19 24 08/22/2023 URINE DRUG SCREE N ([facility] ) cocaine Negati ve negati ve Not Available [address] [place], [address] 08/22/2023 00:55:06 08/22/19 24 08/22/2023 URINE DRUG SCREE N ([facility] ) amphetamines Negati ve negati ve Not Available [address] [place], [address] 08/22/2023 00:55:06 08/22/19 24 08/22/2023 URINE DRUG SCREE N ([facility] ) tetrahydroca nnabinol Positi ve negati ve abnormal Not Available [address] [place], [address] 08/22/2023 00:55:06 08/22/19 24 08/22/2023 URINE DRUG SCREE N ([facility] ) opiates Negati ve negati ve Not Available [address] [place], [address] 08/22/2023 00:55:06 08/22/19 24 08/22/2023 URINE DRUG SCREE N ([facility] ) barbiturates Negati ve negati ve Not Available [address] [place], [address] 08/22/2023 00:55:06 08/22/19 24 08/22/2023 URINE DRUG [...] tion of these resul ts. Not Available [address] [place], [address] 08/22/2023 00:55:06 12/07/19 24 12/07/2023 COMPL ETE BLOOD COUNT W/DIF F WBC 5.74 10_3/ uL 4.4-10 .8 normal Not Available [address] [place], [address] 12/07/2023 13:34:31 12/07/19 24 12/07/2023 COMPL ETE BLOOD COUNT W/DIF F RBC 4.11 10_6/ uL 3.93-5 .22 normal Not Available [address] [place], [address] 12/07/2023 13:34:31 12/07/19 24 12/07/2023 COMPL ETE BLOOD COUNT W/DIF F HGB 12.7 g/dL 11.2-1 5.7 normal Not Available [address] [place], [address] 12/07/2023 13:34:31 12/07/19 24 12/07/2023 COMPL ETE BLOOD COUNT W/DIF F HCT 37.6 % 36.0-4 6.0 normal Not Available [address] [place], [address] 12/07/2023 13:34:31 12/07/19 24 12/07/2023 COMPL ETE BLOOD COUNT W/DIF F MCV 92 fL 80-95 normal Not Available [address] [place], [address] 12/07/2023 13:34:31 12/07/19 24 12/07/2023 COMPL ETE BLOOD COUNT W/DIF F MCH 30.9 pg 27.0-3 3.0 normal Not Available [address] [place], [address] 12/07/2023 13:34:31 12/07/19 24 12/07/2023 COMPL ETE BLOOD COUNT W/DIF F MCHC 33.8 % 32.0-3 6.0 normal Not Available [address] [place], [address] 12/07/2023 13:34:31 12/07/19 24 12/07/2023 COMPL ETE BLOOD COUNT W/DIF F RDW 12.2 % 11.7-1 4.6 normal Not Available [address] [place], [address] 12/07/2023 13:34:31 12/07/19 24 12/07/2023 COMPL ETE BLOOD COUNT W/DIF F platelet count 178 10_3/ uL 130-40 0 normal Not Available [address] [place], [address] 12/07/2023 13:34:31 12/07/19 24 12/07/2023 COMPL ETE BLOOD COUNT W/DIF F MPV 9.6 fL 8.0-11 .0 normal Not Available [address] [place], [address] 12/07/2023 13:34:31 12/07/19 24 12/07/2023 COMPL ETE BLOOD COUNT W/DIF F neutrophils % 55.2 % Not Available [address] [place], [address] 12/07/2023 13:34:31 12/07/19 24 12/07/2023 COMPL ETE BLOOD COUNT W/DIF F lymphocytes % 34.0 % Not Available [address] [place], [address] 12/07/2023 13:34:31 12/07/19 24 12/07/2023 COMPL ETE BLOOD COUNT W/DIF F monocytes % 8.9 % Not Available [address] [place], [address] 12/07/2023 13:34:31 12/07/19 24 12/07/2023 COMPL ETE BLOOD COUNT W/DIF F eosinophils % 0.9 % Not Available [address] [place], [address] 12/07/2023 13:34:31 12/07/19 24 12/07/2023 COMPL ETE BLOOD COUNT W/DIF F basophils % 0.7 % Not Available [address] [place], [address] 12/07/2023 13:34:31 12/07/19 24 12/07/2023 COMPL ETE BLOOD COUNT W/DIF F immature grans % 0.3 % Not Available [address] [place], [address] 12/07/2023 13:34:31 12/07/19 24 12/07/2023 COMPL ETE BLOOD COUNT W/DIF F nucleated RBC 0.0 % 0.0-0. 3 normal Not Available [address] [place], [address] 12/07/2023 13:34:31 12/07/19 24 12/07/2023 COMPL ETE BLOOD COUNT W/DIF F absolute neutrophil count 3.17 10_3/ uL 1.2-6. 7 normal Not Available [address] [place], [address] 12/07/2023 13:34:31 12/07/19 24 12/07/2023 COMPL ETE BLOOD COUNT W/DIF F absolute lymphocyte count 1.95 10_3/ uL 1.2-3. 4 normal Not Available [address] [place], [address] 12/07/2023 13:34:31 12/07/19 24 12/07/2023 COMPL ETE BLOOD COUNT W/DIF F absolute monocyte count 0.51 10_3/ uL 0.1-0. 8 normal Not Available [address] [place], [address] 12/07/2023 13:34:31 12/07/19 24 12/07/2023 COMPL ETE BLOOD COUNT W/DIF F absolute eosinophil count 0.05 10_3/ uL 0.0-0. 7 normal Not Available [address] [place], [address] 12/07/2023 13:34:31 12/07/19 24 12/07/2023 COMPL ETE BLOOD COUNT W/DIF F absolute basophil count 0.04 10_3/ uL 0.0-0. 2 normal Not Available [address] [place], [address] 12/07/2023 13:34:31 12/07/19 24 12/07/2023 COMPR EHENS JES METAB OLIC PANEL calcium 9.1 mg/dL 8.5-10 .1 normal Not Available [address] [place], [address] 12/07/2023 13:53:40 12/07/19 24 12/07/2023 COMPR EHENS JES METAB OLIC PANEL glucose 154 mg/dL 74-106 high Not Available Kalpesh [address] [place], [address] 12/07/2023 13:53:40 12/07/19 24 12/07/2023 COMPR EHENS JES METAB OLIC PANEL BUN 21 mg/dL 7-18 high Not Available Kalpesh [place] [address] [place], [address] 12/07/2023 13:53:40 12/07/19 24 12/07/2023 COMPR EHENS JES METAB OLIC PANEL creatinine 0.9 mg/dL 0.55-1 .02 normal Not Available [address] [place], [address] 12/07/2023 13:53:40 12/07/19 24 12/07/2023 COMPR EHENS [...] young er-ag ed adult s. Not Available [address] [place], [address] 12/07/2023 13:53:40 12/07/19 24 12/07/2023 COMPR EHENS JES METAB OLIC PANEL total protein 7.1 g/dL 6.4-8. 2 normal Not Available [address] [place], [address] 12/07/2023 13:53:40 12/07/19 24 12/07/2023 COMPR EHENS JES METAB OLIC PANEL albumin 3.5 g/dL 3.4-5. 0 normal Not Available [address] [place], [address] 12/07/2023 13:53:40 12/07/19 24 12/07/2023 COMPR EHENS JES METAB OLIC PANEL bilirubin, total 0.6 mg/dL 0.2-1. 0 normal Not Available [address] [place], [address] 12/07/2023 13:53:40 12/07/19 24 12/07/2023 COMPR EHENS JES METAB OLIC PANEL alk phos 106 U/L 46-116 normal Not Available [address] [place], [address] 12/07/2023 13:53:40 12/07/19 24 12/07/2023 COMPR EHENS JES METAB OLIC PANEL sodium 139 mmol/ L 136-14 5 normal Not Available [address] [place], [address] 12/07/2023 13:53:40 12/07/19 24 12/07/2023 COMPR EHENS JES METAB OLIC PANEL potassium 4.4 mmol/ L 3.5-5. 1 normal Not Available [address] [place], [address] 12/07/2023 13:53:40 12/07/19 24 12/07/2023 COMPR EHENS JES METAB OLIC PANEL chloride 104 mmol/ L 98-107 normal Not Available [address] [place], [address] 12/07/2023 13:53:40 12/07/19 24 12/07/2023 COMPR EHENS JES METAB OLIC PANEL CO2 29.8 mmol/ L 21.0-3 2.0 normal Not Available [address] [place], [address] 12/07/2023 13:53:40 12/07/19 24 12/07/2023 COMPR EHENS JES METAB OLIC PANEL anion gap 5.2 mmol/ L 3-11 normal Not Available [address] [place], [address] 12/07/2023 13:53:40 12/07/19 24 12/07/2023 COMPR EHENS JES METAB OLIC PANEL AST 39 U/L 15-37 high Not Available [address] [place], [address] 12/07/2023 13:53:40 12/07/19 24 12/07/2023 COMPR EHENS JES METAB OLIC PANEL ALT 48 U/L 14-59 normal Not Available Kalpesh casillas [address] [place], [address] 12/07/2023 13:53:40 12/07/19 24 12/07/2023 TROPO KANWAL I troponin I < 50 NG/L < or =60 Not Available [address] [place], [address] 12/07/2023 13:53:40 12/07/19 24 12/07/2023 PROTH ROMBI N TIME prothrombin time 10.9 sec 9.1-11 .1 normal Not Available [address] [place], [address] 12/07/2023 14:14:40 12/07/19 24 12/07/2023 PROTH ROMBI N TIME INR 1.1 0.9-1. 1 normal Recom celia d INR thera peuti c range s for orall y admin ister ed drugs are as follo ws: -[place] Inten sity 2.0 to 3.0 -High er Inten sity 3.0 to 4.5 Not Available [address] [place], [address] 12/07/2023 14:14:40 12/07/19 24 12/07/2023 PTT ACTIV ATED PTT activated 23.4 sec 23.6-3 2.8 low Hepar in Thera peuti c Range for PTT = 52-84 secon ds New Hepar in Thera peuti c Range 09/08 Not Available [address] [place], [address] 12/07/2023 14:14:41 12/07/19 24 12/07/2023 TROPO KANWAL I troponin I < 50 NG/L < or =60 Not Available [address] [place], [address] 12/07/2023 16:25:17 02/15/20 24 02/15/2024 COMPL ETE BLOOD COUNT W/DIF F WBC 4.55 10_3/ uL 4.4-10 .8 normal Not Available [address] [place], [address] 02/15/2024 10:39:22 02/15/20 24 02/15/2024 COMPL ETE BLOOD COUNT W/DIF F RBC 4.67 10_6/ uL 3.93-5 .22 normal Not Available [address] [place], [address] 02/15/2024 10:39:22 02/15/20 24 02/15/2024 COMPL ETE BLOOD COUNT W/DIF F HGB 14.3 g/dL 11.2-1 5.7 normal Not Available [address] [place], [address] 02/15/2024 10:39:22 02/15/20 24 02/15/2024 COMPL ETE BLOOD COUNT W/DIF F HCT 42.4 % 36.0-4 6.0 normal Not Available [address] [place], [address] 02/15/2024 10:39:22 02/15/20 24 02/15/2024 COMPL ETE BLOOD COUNT W/DIF F MCV 91 fL 80-95 normal Not Available [address] [place], [address] 02/15/2024 10:39:22 02/15/20 24 02/15/2024 COMPL ETE BLOOD COUNT W/DIF F MCH 30.6 pg 27.0-3 3.0 normal Not Available [address] [place], [address] 02/15/2024 10:39:22 02/15/20 24 02/15/2024 COMPL ETE BLOOD COUNT W/DIF F MCHC 33.7 % 32.0-3 6.0 normal Not Available [address] [place], [address] 02/15/2024 10:39:22 02/15/20 24 02/15/2024 COMPL ETE BLOOD COUNT W/DIF F RDW 12.3 % 11.7-1 4.6 normal Not Available [address] [place], [address] 02/15/2024 10:39:22 02/15/20 24 02/15/2024 COMPL ETE BLOOD COUNT W/DIF F platelet count 189 10_3/ uL 130-40 0 normal Not Available [address] [place], [address] 02/15/2024 10:39:22 02/15/20 24 02/15/2024 COMPL ETE BLOOD COUNT W/DIF F MPV 9.8 fL 8.0-11 .0 normal Not Available [address] [place], [address] 02/15/2024 10:39:22 02/15/20 24 02/15/2024 COMPL ETE BLOOD COUNT W/DIF F neutrophils % 56.9 % Not Available [address] [place], [address] 02/15/2024 10:39:22 02/15/20 24 02/15/2024 COMPL ETE BLOOD COUNT W/DIF F lymphocytes % 33.2 % Not Available [address] [place], [address] 02/15/2024 10:39:22 02/15/20 24 02/15/2024 COMPL ETE BLOOD COUNT W/DIF F monocytes % 8.1 % Not Available [address] [place], [address] 02/15/2024 10:39:22 02/15/20 24 02/15/2024 COMPL ETE BLOOD COUNT W/DIF F eosinophils % 0.9 % Not Available [address] [place], [address] 02/15/2024 10:39:22 02/15/20 24 02/15/2024 COMPL ETE BLOOD COUNT W/DIF F basophils % 0.7 % Not Available [address] [place], [address] 02/15/2024 10:39:22 02/15/20 24 02/15/2024 COMPL ETE BLOOD COUNT W/DIF F immature grans % 0.2 % Not Available [address] [place], [address] 02/15/2024 10:39:22 02/15/20 24 02/15/2024 COMPL ETE BLOOD COUNT W/DIF F nucleated RBC 0.0 % 0.0-0. 3 normal Not Available [address] [place], [address] 02/15/2024 10:39:22 02/15/20 24 02/15/2024 COMPL ETE BLOOD COUNT W/DIF F absolute neutrophil count 2.59 10_3/ uL 1.2-6. 7 normal Not Available [address] [place], [address] 02/15/2024 10:39:22 02/15/20 24 02/15/2024 COMPL ETE BLOOD COUNT W/DIF F absolute lymphocyte count 1.51 10_3/ uL 1.2-3. 4 normal Not Available [address] [place], [address] 02/15/2024 10:39:22 02/15/20 24 02/15/2024 COMPL ETE BLOOD COUNT W/DIF F absolute monocyte count 0.37 10_3/ uL 0.1-0. 8 normal Not Available [address] [place], [address] 02/15/2024 10:39:22 02/15/20 24 02/15/2024 COMPL ETE BLOOD COUNT W/DIF F absolute eosinophil count 0.04 10_3/ uL 0.0-0. 7 normal Not Available [address] [place], [address] 02/15/2024 10:39:22 02/15/20 24 02/15/2024 COMPL ETE BLOOD COUNT W/DIF F absolute basophil count 0.03 10_3/ uL 0.0-0. 2 normal Not Available [address] [place], [address] 02/15/2024 10:39:22 02/15/20 24 02/15/2024 ESR ESR 12 mm/HR 0-20 normal Not Available [address] [place], [address] 02/15/2024 10:53:16 02/15/20 24 02/15/2024 D-DIM ER D-dimer 886 NG/ml feu <500 high *Lite ratur e suppo rts the exclu marysol of DVT and/o r PE with a resul t less than 500 ng/ml FEU with this metho d.* Not Available [address] [place], [address] 02/15/2024 11:17:25 02/15/20 24 02/15/2024 COMPR EHENS JES METAB OLIC PANEL calcium 9.4 mg/dL 8.5-10 .1 normal Not Available [address] [place], [address] 02/15/2024 11:28:26 02/15/20 24 02/15/2024 COMPR EHENS JES METAB OLIC PANEL glucose 339 mg/dL 74-106 high Not Available Kalpesh [address] [place], [address] 02/15/2024 11:28:26 02/15/20 24 02/15/2024 COMPR EHENS JES METAB OLIC PANEL BUN 15 mg/dL 7-18 normal Not Available Kalpesh [address] [facility] [place], [address] 02/15/2024 11:28:26 02/15/20 24 02/15/2024 COMPR EHENS JES METAB OLIC PANEL creatinine 0.9 mg/dL 0.55-1 .02 normal Not Available [address] [place], [address] 02/15/2024 11:28:26 02/15/20 24 02/15/2024 COMPR EHENS [...] young er-ag ed adult s. Not Available [address] [place], [address] 02/15/2024 11:28:26 02/15/20 24 02/15/2024 COMPR EHENS JES METAB OLIC PANEL total protein 8.0 g/dL 6.4-8. 2 normal Not Available [address] [place], [address] 02/15/2024 11:28:26 02/15/20 24 02/15/2024 COMPR EHENS JES METAB OLIC PANEL albumin 3.9 g/dL 3.4-5. 0 normal Not Available [address] [place], [address] 02/15/2024 11:28:26 02/15/20 24 02/15/2024 COMPR EHENS JES METAB OLIC PANEL bilirubin, total 0.77 mg/dL 0.2-1. 0 normal Not Available [address] [place], [address] 02/15/2024 11:28:26 02/15/20 24 02/15/2024 COMPR EHENS JES METAB OLIC PANEL alk phos 161 U/L 46-116 high Not Available [address] [place], [address] 02/15/2024 11:28:26 02/15/20 24 02/15/2024 COMPR EHENS JES METAB OLIC PANEL sodium 136 mmol/ L 136-14 5 normal Not Available [address] [place], [address] 02/15/2024 11:28:26 02/15/20 24 02/15/2024 COMPR EHENS JES METAB OLIC PANEL potassium 4.3 mmol/ L 3.5-5. 1 normal Not Available [address] [place], [address] 02/15/2024 11:28:26 02/15/20 24 02/15/2024 COMPR EHENS JES METAB OLIC PANEL chloride 99 mmol/ L 98-107 normal Not Available [address] [place], [address] 02/15/2024 11:28:26 02/15/20 24 02/15/2024 COMPR EHENS JES METAB OLIC PANEL CO2 30.9 mmol/ L 21.0-3 2.0 normal Not Available [address] [place], [address] 02/15/2024 11:28:26 02/15/20 24 02/15/2024 COMPR EHENS JES METAB OLIC PANEL anion gap 6.1 mmol/ L 3-11 normal Not Available [address] [place], [address] 02/15/2024 11:28:26 02/15/20 24 02/15/2024 COMPR EHENS JES METAB OLIC PANEL AST 36 U/L 15-37 normal Not Available [address] [place], [address] 02/15/2024 11:28:26 02/15/20 24 02/15/2024 COMPR EHENS JES METAB OLIC PANEL ALT 46 U/L 14-59 normal Not Available [address] [place], [address] 02/15/2024 11:28:26 02/15/20 24 02/15/2024 C-KATIE CTIVE PROTE IN C-reactive protein < 0.50 mg/dL <or=0. 5 Not Available [address] [place], [address] 02/15/2024 11:24:26 02/15/20 24 02/15/2024 C-KATIE CTIVE PROTE IN C-reactive protein < 0.50 mg/dL <or=0. 5 Not Available [address] [facility] [place], [address] 02/15/2024 11:28:27 07/05/20 23 07/05/2023 elect sola bergeron am EKG PATIMARIANNA T NAME: Kailey Hernandez UNIT #: [id number] ORDERI NG PROVID ER: Ilda Angeles M.D. ACCOUN T #: [id number] PRIMAR Y CARE PROVID ER: JENNIFER ON,CEASAR FRANCO DATE/T ARELY OF SER VICE: 1146 : 1974 PERFOR OSCAR LOCATI ON: ER ------ ------ --- APPROV ED REPORT ------ ------ -- Exam: Restin g ECG Reason for Exam: syncop e Laly sebastian Locati on: E HR:74 bpm ECG Measur ements Heart Rate 74 AXIS WV 147 P 73 QRSd 106 QRS -66 QT 393 T 66 QTc 435 Conclu marysol Sinus rhythm ..., V-rate 60- 99 Approp riate interv als. 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 Right middle cerebr al artery : No occlus ion or signif icant stenos is. No aneury sm. Right anteri or cerebr al artery : Absent right A1 segmen t which can be a normal varian t. Left international project manager al caroti d artery : Mild-t o-mode rate cavern ous caroti d diseas e on the left. Left middle cerebr al artery : No occlus ion or signif icant stenos is. No aneury sm. Left anteri or cerebr al artery : No occlus ion or signif icant stenos is. No aneury sm. COTTON BUYER IOR CIRCUL ATION: Right verteb ral artery : No occlus ion or signif icant stenos is. No aneury sm. Left verteb ral artery : No occlus ion or signif icant stenos is. No aneury sm. Basila r artery : No occlus ion or signif icant stenos is. No aneury sm. Right bleach boiler puller ior cerebr al artery : No occlus ion or signif icant stenos is. No aneury sm. Left bleach boiler puller ior cerebr al artery : No occlus [...] No large vessel occlus ion at the [place]. 3. Absent right A1 segmen [...] No dissec tion or occlus ion. Right international project manager al caroti d artery : No stenos is of the extrac ranial segmen t. No dissec tion or occlus ion. Right dispensing audiologist al caroti d artery : No occlus ion or stenos is of the origin . Left common caroti d artery : No stenos is. No dissec tion or occlus ion. Left international project manager al caroti d artery : No stenos is of the extrac ranial segmen t. No dissec tion or occlus ion. Left dispensing audiologist al caroti d artery : No occlus [...] the cervic al segmen t of the international project manager al caroti d artery is based on NASCET criter ia. Normal is no stenos is. Mild is less than 50% stenos is. Modera te is 50-69% stenos is. Severe is 70% to 99% stenos is. Total occlus ion is no detect able patent lumen. Dictat ed and Authen ticate d by: Debby Albert i, MD. Orderi ng:Curry gee MD Access ion#=[id number] Ordere d By: CC: ------ ------ ------ ------ ------ ------ ------ ------ ------ ------ ------ ------ ---- Dictat ed By: Report s vrad [id number] Transc ribed By: Milad Nichols 1154 This is privil eged, confid [...] the addres s above. Thank- you. amarjit [facility] [address] [place], [address] 07/06/2023 16:20:17 07/05/20 23 07/05/2023 vrad repor t Patimarianna t Name: Kailey Hernandez Unit #: [id number] Loc: ER Orderi ng Provid er: Accoun t #: [id number] Status : REG ER Primar y [...] ng:Curry OCJ Karthik gee MD Access ion#=[id number] Joel ot By: CC: ------ ------ ------ ------ ------ [...] error, please notify us immedi ately at [phone] and return the origin al report to us at the addres s above. Thank- you. amarjit [facility] [address], [place], [address] 07/06/2023 16:20:19 07/05/20 23 07/05/2023 ED visit note ED Visit Note LALY Sebastian NAME: Kailey Hernandez UNIT #: [id number] ADMITT ING PROVID ER: Ilda Angeles M.D. ACCOUN T #: [id number] PRIMAR Y CARE PROVID ER: CEASAR TURNER DATE OF ADMIT: : 1974 Discha rge Plan Dispos ition Condit ion: Stable Discha rge Detail s Chief Compla int: AMS/LO C Clinic al Impres marysol: Syncop e Primar y Care Provid er: Ceasar Turner ED Provid er: Ilda Agneles Home Meds and New Rx's Prescr iption [...] moveme nts to sugges t seizur e. [facility] record s review ed includ ing [...] alitie s to sugges t occlus jes [place]. Tropon in negati ve x 2 -CT [...] No large vessel occlus ion at the [place]. 3. Absent right A1 segmen [...] the addres s above. Thank you. amarjit [facility] [address] [place], [address] 07/06/2023 16:20:17 07/05/20 23 07/05/2023 CT imagi ng repor t Patien t Name: Kailey Hernandez Unit #: [id number] Loc: ER Orderi ng Provid er: Ilda Angeles M.D. Accoun t #: [id number] Status : REG ER Primar y Care [...] facili ty are submit tarsha to the [facility] Radiol ogy Data Regist ry (NRDR) [...] bution by any person other than this [facility] er is strict ly prohib ited. If you receiv e this report in error, please notify us immedchaka olson at and return the origin al report to us at the addres s above. Thank- you. amarjit [facility] [address] , [place], [address] 07/06/2023 16:20:20 07/05/20 23 07/05/2023 CT imagi ng repor t Patien t Name: Kailey Hernandez Unit #: [id number] Loc: ER Orderi ng Provid er: Ilda Angeles M.D. t #: [id number] Status : REG ER Primar y Care [...] the caroti d bulbs and proxim al international project manager al caroti d arteri es there is no signif icant plaque and no signif icant stenos is eviden t. Both international project manager al caroti d arteri es are patent in the upper neck and skull base-c arotid canals . Sql Consultant ior circul ation: Both verteb ral arteri [...] Brain W: Anteri or circul ation: Both international project manager al caroti d arteri es are patent in the skull base-c arotid canals as well as within the cavern ous sinuse s. Suprac linoid aspect s of both international project manager al caroti d arteri es are patent [...] no aneury sms of these vessel s. Sql Consultant ior circul ation: The basila r artery ascend s in the midlin e. Distal ly it gives off patent bilate ral superi or cerebe llar arteri es. Above this level the basila r artery termin ates as patent bilate ral bleach boiler puller ior cerebr al arteri es. There is a bleach boiler puller ior commun icatin g artery noted on the left side of the [place]. There is no eviden ce of aneury sm at the tip of the basila r artery nor elsewh ere in the [place]. CT BRAIN: There is no [...] facili ty are submit tarsha to the [facility] al Radiol ogy Data Regist ry (NRDR) Dose Index Regist ry (DIR) with the [place] of Radiol ogy (ACR). RADIAT ION OPTIMI ZATION : All CT scans at this [facility] ty use at least one of these [...] the addres s above. Thank- you. amarjit [facility] [address] [place], [address] 07/06/2023 16:20:20 07/06/20 23 07/05/2023 elect sola bergeron am EKG PATIMARIANNA T NAME: Kailey Hernandez UNIT #: [id number] ORDERI NG PROVID ER: Ilda Angeles M.D. ACCOUN T #: [id number] PRIMAR Y CARE PROVID ER: CEASAR TURNER DATE/T ARELY OF SER VICE: 1146 : 1974 PERFOR OSCAR LOCATI ON: ER ------ ------ --- APPROV ED REPORT ------ ------ -- Exam: Restin g ECG Reason for Exam: syncop e Laly sebastian Locati on: E HR:74 bpm ECG Measur ements Heart Rate 74 AXIS WV 147 P 73 QRSd 106 QRS -66 QT 393 T 66 QTc 435 Conclu marysol Sinus rhythm ..., V-rate 60- 99 Approp riate interv als. No ST segmen t or T wave abnorm alitie s to sugges t occlus jes [place] ------ ------ ------ ------ ------ ------ ------ ------ ------ ------ ------ ------ ------ ------ ------ ------ ---- ------ - E-Sign Date: E-Sign Time: 1159 ------ ------ --- ADDEND UM APPROV ED REPORT ------ ------ -- Exam: Restin g ECG Reason for Exam: syncop e Laly sebastian Locati on: E HR:74 bpm ECG Measur ements Heart Rate 74 AXIS WV 147 P 73 QRSd 106 QRS -66 QT 393 T 66 QTc 435 Conclu marysol Sinus rhythm ..., V-rate 60- 99 Approp riate interv als. No ST segmen t or T wave abnorm alitie s to sugges t occlus jes [place] I have review ed and I agree with the emerge ncy room physic kristie's ECG interp retati on. Electr onical ly signed by: [id number] Cosign ed by: amarjit [facility] [address] [place] [address] [place], [address] 07/06/2023 16:20:18 08/21/19 24 08/21/2023 elect sola bergeron am EKG LALY Sebastian NAME: David Kailey A UNIT #: [id number] ORDERI NG PROVID ER: Ilda Angeles M.D. ACCOUN T #: [id number] PRIMAR Y CARE PROVID ER: JENNIFERCEASAR SAUNDERS JOAN DATE/T ARELY OF SER VICE: 2217 : 1974 PERFOR OSCAR LOCATI ON: ER ------ ------ --- APPROV ED REPORT ------ ------ -- Exam: Restin g ECG Reason for Exam: vomiti amanda Patimarianna t Locati on: E HR:73 bpm ECG Measur ements Heart Rate 73 AXIS WV 149 P 68 QRSd 114 QRS 1 QT 395 T 67 QTc 437 Conclu marysol Sinus rhythm ..V-ra te 60- 99 Approp riate interv als. No ST segmen t or T wave abnorm jason soriano to micah t occlus jes [place] ------ ------ ------ ------ ------ ------ ------ ------ ------ ------ ------ ------ ------ ------ ------ ------ ---- ------ - E-Sign Date: E-Sign Time: 2230 [email or web address] [facility] [address] [place] [address] [place], [address] 08/24/2023 07:32:07 08/21/1908/21/2023 ED visit note ED Visit Note LALY T NAME: Kailey Hernandez UNIT #: [id number] ADMITT ING PROVID ER: Ilda Angeles M.D. ACCOUN T #: [id number] PRIMAR Y CARE PROVID ER: CEASAR [...] alitie s to sugges t occlus jes [place]. Labs review ed as below, CBC reassu [...] ic) CAD (coron yamilet artery diseas e), [place] ry artery (Acute ) Neurog enic [...] 10:26 by Umm [place] DPM) Smokin g/[employer] technical account representative Use Status : Never Smokin [...] error, please notify us immedi ately at [phone] and return the origin al report to us at the addres s above. Thank you. amarjit [facility] [address], [place], [address] 08/24/2023 07:32:07 08/22/19 24 08/22/2023 ED progr ess note ED Progre ss Note PATIEN T NAME: Kailey Hernandez UNIT #: [id number] ADMITT ING PROVID ER: Richard Savage DO ACCOUN T #: [id number] PRIMAR Y CARE PROVID ER: CEASAR [...] in this chart was dictat ed using Telirison dictat ion softwa re. Please excuse any [...] the addres s above. Thank you. amarjit [facility] [address] [place], [address] 08/24/2023 07:32:07 08/28/1908/21/2023 cesar bergeron am EKG LALY T NAME: Kailey Hernandez UNIT #: [id number] ORDERI NG PROVID ER: Ilda Angeles M.D. ACCCOOKIE T #: [id number] PRIMAR Y CARE PROVID ER: CEASAR TURNER DATE/T ARELY OF SER VICE: 2217 : 1974 QUINCY MOORE LOCATI ON: ER ------ ------ --- APPROV ED REPORT ------ ------ -- Exam: Restin g ECG Reason for Exam: vomiti ng Patien t Locati on: E HR:73 bpm ECG Measur ements Heart Rate 73 AXIS WV 149 P 68 QRSd 114 QRS 1 QT 395 T 67 QTc 437 Conclu marysol Sinus rhythm ..V-ra te 60- 99 Approp riate interv als. No ST segmen t or T wave abnorm alitie s to sugges t occlus jes [place] ------ ------ ------ ------ ------ ------ ------ ------ ------ ------ ------ ------ ------ ------ ------ ------ ---- ------ - E-Sign Date: E-Sign Time: 2229 ------ ------ --- ADDEND UM APPRO ED REPORT ------ ------ -- Exam: Restin g ECG Reason for Exam: vomiti ng Patien t Locati on: E HR:73 bpm ECG Measur ements Heart Rate 73 AXIS WV 149 P 68 QRSd 114 QRS 1 QT 395 T 67 QTc 437 Conclu marysol Sinus rhythm ..V-ra te 60- 99 Approp riate interv als. No ST segmen t or T wave abnorm alitie s to sugges t occlus jes [place] I have review ed and I agree with the emerge ncy room physic kristie's ECG interp retati on. Electr onical ly signed by: [id number] Cosign ed by: amarjit [facility] [address] [place], [address] 08/28/2023 14:30:56 12/07/19 24 12/07/2023 x-ray imagi ng repor t Patien t Name: Kailey Hernandez Unit #: [id number] Loc: ER Orderi ng Provid er: Ramon Thorpe M.D. Accoun t #: [id number] Status : REG ER Primar y [...] the addres s above. Thank- you. amarjit [facility] [address] [place] [address] [place], [address] 12/07/2023 17:00:11 02/15/20 24 02/15/2024 CT imagi ng alen sebastian Name: Kailey Hernandez Unit #: [id number] Loc: ER Orderi ng Provid er: Julissa Thornton Accoun t #: [id number] Status : REG ER Primar y Care [...] the C4-5 levels both anteri stacy and bleach boiler puller iorly partia l fusion of the C4 and 5 verteb ral bodies as well as the bleach boiler puller ior osseou s elemen ts includ ing the bilate ral facet joints at this level. Other disc spaces exhibi t normal height and other facet joints appear unrema rkable . Calcif ic densit y anteri or to the lower odonto id is unchan ged from [facility] er 2022 No signif icant osseou s [...] the addres s above. Thank- you. amarjit [facility] [address] [place], [address] 02/15/2024 12:23:56 02/15/20 24 02/15/2024 CT imagi ng repor t Patien t Name: Kailey Hernandez Unit #: [id number] Loc: ER Orderi ng Provid er: Julissa Thornton Accoun t #: [id number] Status : REG ER Primar y Care [...] the addres s above. Thank- you. amarjit [facility] [address] [place], [address] 02/15/2024 12:23:56 02/15/20 24 02/15/2024 ultra sound imagi ng repor t Patien t Name: Kailey Hernandez Unit #: [id number] Loc: ER Orderi ng Provid er: Julissa Thornton Accoun t #: [id number] Status : REG ER Primar y Care [...] for compar lionel FINDIN GS: The left international project manager al jugula r, axilla ry, subcla vian, [...] the addres s above. Thank- you. amarjit [facility] [address], [place], [address] 02/15/2024 14:16:11 02/15/20 24 02/15/2024 CT imagi amanda sebastian Name: Kailey Hernandez Unit #: [id number] Loc: ER Tim patel Provid er: Julissa Thornton Accoun t #: [id number] Status : REG ER Primar y Care [...] in the distal abdomi nal aorta and international project manager al iliac arteri es. Pulmon yamilet arteri [...] facili ty are submit tarsha to the [facility] al Radiol ogy Data Regist ry (NRDR) Dose Index Regist ry (DIR) with the [place] of Radiol ogy (ACR). RADIAT ION OPTIMI ZATION : [facility] CT [facility] use at least one of [...] ------ ---- Dictat ed By: Ariadna Ochoa 1436 Transc ribed By: Hallie Lamb 1436 This is privil eged, confid ential inform ation intend ed only for the provid er named. Any use or distri bution by any person other than this provid er is strict ly prohib ited. If you receiv e this report in error, please notify us immedi ately at [phone] and return the origin al report to us at the addres s above. Thank- you. amarjit [facility] [address], [place], [address] 02/15/2024 14:49:16 04/13/20 24 04/13/2024 x-ray jayi amanda sebastian Name: Kailey Hernandez Unit #: [id number] Loc: MILAD Tim patel Provid er: Joel Louis APRN Accoun t #: [id number] Status : REG CLI Primar y Care Provid er: Karie Lindsey NP Date of Exam: 06/26 Sex: F Admiss ion Date: : 1974 Age: 49 Exam(s ) RF BARIUM SWALLO W EXAM: RF BARIUM SWALLO W CLINIC AL HISTOR Y: new dyspha alicia,r1 3.10 TECHNI QUE: 2D and realti me digita l imagin g was perfor med. CONTRA ST MATERI AL: Thick and thin barium and barium tablet were admini stered . COMPAR LIONEL: CT CT UPPER EXTREM ITY LT CTA from 2023 MR MR CERVIC AL SPINE WO from 2023 FINDIN GS: The PA and latera l chest films show normal heart size and clear lung garcia . The latera l [employer] senior officer view of the neck is unrema rkable . Esopha radu: The patien t swallo wed barium withou t diffic ulty. Noevid ence for mucosa l erosio ns. Nofold thicke bella. No mass is visibl e. Nostri cture. Motili ty: There is a normal primar y stripp ing wave. tertia ry contra ctions were noted. There is no hiatal hernia . Severe gastro esopha geal reflux was observ ed during the exam. The barium tablet stuck in the vallec lety but was washed down with multip le swallo ws of water. IMPRES MARYSOL: Gastro esopha geal reflux and tertia ry contra ctions . Barium tablet stuck in the vallec lety which was washed down with multip le swallo ws of water. RADIAT ION DOSE DELIVE RED: Ka,r=9 .33 mGy Ordere d By: Joel Louis APRN CC: ------ ------ ------ ------ ------ ------ ------ ------ ------ ------ ------ ------ - Dictat ed By: Ariadna Ochoa 1018 1018 Transc ribed By: Hallie Lamb 1018 This is privil eged, confid ential inform ation intend ed only for the provid er named. Any use or distri bution by any person other than this provid er is strict ly prohib ited. If you receiv e this report in error, please notify us immedi bradfordly at [phone] and return the origin al report to us at the addres s above. Thank- you. amarjit [facility] [address] [place], [address] 04/13/2024 12:10:55 04/17/20 24 01/03/2022 imagi ng/milad grande tic resul t No observ ation record ed. [email or web address] Not Available 04/17 23:31:55 04/17/20 24 01/04/2022 imagi ng/di agnos tic resul t No observ ation record ed. [email or web address] Not Available 04/17 23:31:57 04/17/20 24 07/22/2022 imagi ng/di agnos tic resul t No observ ation record ed. [email or web address] Not Available 04/17 23:32:48 04/17/20 24 07/22/2022 imagi ng/di agnos tic resul t No observ ation record ed. [email or web address] Not Available 04/17 23:32:49 04/17/20 24 01/03/2022 imagi ng/di agnos tic resul t No observ ation record ed. [email or web address] Not Available 04/17 23:32:51 04/17/20 24 01/12/2022 imagi ng/di agnos tic resul t No observ ation record ed. [email or web address] Not Available 04/17 23:32:52 04/17/20 24 07/14/2019 imagi ng/di agnos tic resul t No observ ation record ed. [email or web address] Not Available 04/17 23:33:13 04/17/20 24 04/21/2022 imagi ng/di agnos tic resul t No observ ation record ed. [email or web address] Not Available 04/17 23:33:14 04/17/20 24 07/23/2022 imagi ng/di agnos tic resul t No observ ation record ed. [email or web address] Not Available 04/17 23:33:15 04/17/20 24 07/25/2019 imagi ng/di agnos tic resul t No observ ation record ed. [email or web address] Not Available 04/17 23:33:16 04/17/20 24 03/03/2022 imagi ng/di agnos tic resul t No observ ation record ed. [email or web address] Not Available 04/17 23:33:21 04/17/20 24 03/18/2022 imagi ng/di agnos tic resul t No observ ation record ed. [email or web address] Not Available 04/17 23:33:23 04/17/20 24 01/12/2022 imagi ng/di agnos tic resul t No observ ation record ed. [email or web address] Not Available 04/17 23:33:32 04/17/20 24 01/12/2022 imagi ng/di agnos tic resul t No observ ation record ed. [email or web address] Not Available 04/17 23:33:33 04/17/20 24 01/03/2022 imagi ng/di agnos tic resul t No observ ation record ed. [email or web address] Not Available 04/17 23:33:37 04/17/20 24 02/22/2022 imagi ng/di agnos tic resul t No observ ation record ed. [email or web address] Not Available 04/17 23:33:45 04/17/20 24 07/05/2023 imagi ng/di agnos tic resul t No observ ation record ed. [email or web address] Not Available 04/17 23:33:56 04/17/20 24 07/23/2022 imagi ng/di agnos tic resul t No observ ation record ed. [email or web address] Not Available 04/17 23:34:22 04/17/20 24 08/14/2022 imagi ng/di agnos tic resul t No observ ation record ed. [email or web address] Not Available 04/17 23:34:23 04/17/20 24 01/04/2022 imagi ng/di agnos tic resul t No observ ation record ed. [email or web address] Not Available 04/17 23:34:24 04/17/20 24 01/13/2022 imagi ng/di agnos tic resul t No observ ation record ed. [email or web address] Not Available 04/17 23:34:25 04/17/20 24 06/24/2022 imagi ng/di agnos tic resul t No observ ation record ed. [email or web address] Not Available 04/17 23:34:27 04/17/20 24 04/21/2022 imagi ng/di agnos tic resul t No observ ation record ed. [email or web address] Not Available 04/17 23:34:28 04/17/20 24 02/23/2022 imagi ng/di agnos tic resul t No observ ation record ed. [email or web address] Not Available 04/17 23:34:29 04/17/20 24 04/21/2022 imagi ng/di agnos tic resul t No observ ation record ed. [email or web address] Not Available 04/17 23:34:34 04/17/20 24 04/22/2022 imagi ng/di agnos tic resul t No observ ation record ed. [email or web address] Not Available 04/17 23:34:42 04/17/20 24 05/26/2022 imagi ng/di agnos tic resul t No observ ation record ed. [email or web address] Not Available 04/17 23:34:54 04/17/20 24 07/22/2022 imagi ng/di agnos tic resul t No observ ation record ed. [email or web address] Not Available 04/17 23:35:04 04/17/20 24 06/24/2022 imagi ng/di agnos tic resul t No observ ation record ed. [email or web address] Not Available 04/17 23:35:08 Result Notes None recorded. Problems Name Problem SNOMED Code Status Onset Date Resolution Date Notes Provider Name and Address Organization Details Recorded Time Hearing loss 97989449 Active 201501/08/20 23 - Comments only - Navin Pittman RPA - Bilatera l, left greater than right. ENT NAVIN PITTMAN PA-C [address], [place], [address] , [facility]. 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 Problem Code: E78.5; Problem Code Type: ICD-10; Not Available [facility] 3 05:05:04 Polyneur opathy 11667353 Active 2015 Problem Code: G62.9; Problem Code Type: ICD-10; Not Available [facility] 3 05:05:04 Chronic kidney disease stage 1 380003595 Active 2015 Problem Code: N18.1; Problem Code Type: ICD-10; Not Available [facility] 3 05:05:04 Pain in left foot 85867307092 9107 Completed 201503/28/2016 Problem Code: M79.672; Problem Code Type: ICD-10; Not Available [facility] 3 05:05:04 Pelvic and perineal pain 128830713 Completed 201604/06/2017 Problem Code: R10.2; Problem Code Type: ICD-10; [address], [place], [address] , [facility] 4 12:48:28 Mild intermit tent asthma 422408848 Active 2018 Problem Code: J45.20; Problem Code Type: ICD-10; Not Available [facility] 3 05:05:04 Gastroes ophageal reflux disease without esophagi tis 185730356 Active 2020 Problem Code: K21.9; Problem Code Type: ICD-10; Not Available [facility] 3 05:05:05 Viral screenin g Completed 202101/04/2022 Problem Code: Z11.59; Problem Code Type: ICD-10; Not Available [facility] 3 05:05:05 Atherosc lerosis of coronary artery without angina pectoris 89860387642 4103 Active 202103/09/20 23 - Comments only - Navin Pittman RPA - STEMI January 2022 with stenting x 2 of RCA. complete d one year of DAPT NAVIN PITTMAN PA-C [address], [place], [address] , [facility] 4 12:47:18 Altered mental status 761658539 Completed 202104/22/2022 Problem Code: R41.82; Problem Code Type: ICD-10; Not Available [facility] 3 05:05:05 Syncope and collapse 790337646 Active 202106/11/20 22 - Comments only - Navin Pittman RPA - recurren t syncope thought to be secondar y to hypoglyc emic episodes . NAVIN PITTMAN PA-C [address], [place], [address] , [facility] 4 12:49:32 Hypergly cemia due to type 1 diabetes mellitus 80349271896 9101 Completed 201504/29/2023 Problem Code: E10.65; Problem Code Type: ICD-10; Not Available [facility] 3 05:05:09 Hyperkal emia 24852255 Completed 201510/09/2016 Problem Code: E87.5; Problem Code Type: ICD-10; Not Available [facility] 3 05:05:10 Endocrin e/metabo lic screenin g Completed 201801/15/2020 Problem Code: Z13.29; Problem Code Type: ICD-10; Not Available [facility] 3 05:05:12 Vaginal bleeding 142420340 Completed 201510/09/2016 Not Available [facility] 3 05:05:12 Hemochro matosis 380179092 Completed 201510/09/2016 Problem Code: E83.119; Problem Code Type: ICD-10; Not Available [facility] 3 05:05:12 Constipa tion 52735343 Completed 201801/15/2020 Problem Code: K59.00; Problem Code Type: ICD-10; Not Available [facility] 3 05:05:14 Disorder of urinary bladder 15552809 Completed 201801/15/2020 Problem Code: N32.89; Problem Code Type: ICD-10; Not Available [facility] 3 05:05:15 Cellulit is of right lower limb 90133076406 411586 Completed 202106/11/2022 Problem Code: L03.115; Problem Code Type: ICD-10; Not Available [facility] 3 05:05:17 Adult health examinat ion Completed 202005/21/2021 Problem Code: Z00.00; Problem Code Type: ICD-10; Not Available [facility] 3 05:05:21 Abdomina l pain 00757981 Completed 201805/21/2021 Problem Code: R10.9; Problem Code Type: ICD-10; Not Available [facility] 3 05:05:22 History of respirat ory disease 376981584 Completed 201801/15/2020 Problem Code: Z87.09; Problem Code Type: ICD-10; Not Available [facility] 3 05:05:25 HIV screenin g Completed 202106/11/2022 Problem Code: Z11.4; Problem Code Type: ICD-10; Not Available [facility] 3 05:05:26 Breast composit ion 836191101 Completed 201505/21/2021 Not Available [facility] 3 05:05:27 Impingem ent syndrome of right shoulder region 61135690706 9102 Completed 201905/21/2021 Problem Code: M75.41; Problem Code Type: ICD-10; Not Available [facility] 3 05:05:28 Blood chemistr y outside referenc e range 962310100 Completed 202109/09/2022 Problem Code: R79.89; Problem Code Type: ICD-10; Not Available [facility] 3 05:05:29 Finding of contents of vagina 915098806 Completed 201510/09/2016 Not Available [facility] 3 05:05:29 Type 1 diabetes mellitus 07776593 Active [address], [place], [address] , [facility] 3 13:22:10 Notes:*Problem Name: Visual acuity, decreased, left eye *Problem Status: active *Comments: *Problem Code: H54.52 *Problem Code Type: ICD-10 *Note Date: 09/27/2015 Problem Notes None recorded. Procedures Surgical History None recorded. Imaging Results Imaging Date Name Status LastModified by Organization Details LastModified Time 07/05/2023 electrocardiogram completed [email or web address] [place] [address] [place], [address] 07/06/2023 16:20:18 07/05/2023 vrad report completed [email or web address] [place] [address] [place], [address] 07/06/2023 16:20:17 07/05/2023 vrad report completed [email or web address] [place] [address] [place], [address] 07/06/2023 16:20:19 07/05/2023 ED visit note completed [email or web address] [place] [address] [place], [address] 07/06/2023 16:20:17 07/05/2023 CT imaging report completed [email or web address] [place] [address] [place], [address] 07/06/2023 16:20:20 07/05/2023 CT imaging report completed [email or web address] [place] [address] [place], [address] 07/06/2023 16:20:20 07/05/2023 electrocardiogram completed [email or web address] [address] [place], [address] 07/06/2023 16:20:18 08/21/2023 electrocardiogram completed [email or web address] [address] [place], [address] 08/24/2023 07:32:07 08/21/2023 ED visit note completed amarjit [address] [place], [address] 08/24/2023 07:32:07 08/22/2023 ED progress note completed [email or web address] [place] [address] [place], [address] 08/24/2023 07:32:07 08/21/2023 electrocardiogram completed [email or web address] [address] [place], [address] 08/28/2023 14:30:56 12/07/2023 x-ray imaging report completed amarjit Palacio [address] [place], [address] 12/07/2023 17:00:11 02/15/2024 CT imaging report completed [email or web address] [place] [address] [place], [address] 02/15/2024 12:23:56 02/15/2024 CT imaging report completed [email or web address] [place] [address] [place], [address] 02/15/2024 12:23:56 02/15/2024 ultrasound imaging report completed [email or web address] [place] [address] [place], [address] 02/15/2024 14:16:11 02/15/2024 CT imaging report completed [email or web address] [address] [place], [address] 02/15/2024 14:49:16 04/13/2024 x-ray imaging report completed [email or web address] [place] [address] [place], [address] 04/13/2024 12:10:55 01/03/2022 imaging/diagnostic result completed 163 Information not available 04/17/2024 23:31:55 01/04/2022 imaging/diagnostic result completed Information not available 04/17/2024 23:31:57 07/22/2022 imaging/diagnostic result completed Information not available 04/17/2024 23:32:48 07/22/2022 imaging/diagnostic result completed Information not available 04/17/2024 23:32:49 01/03/2022 imaging/diagnostic result completed Information not available 04/17/2024 23:32:51 01/12/2022 imaging/diagnostic result completed Information not available 04/17/2024 23:32:52 07/14/2019 imaging/diagnostic result completed Information not available 04/17/2024 23:33:13 04/21/2022 imaging/diagnostic result completed Information not available 04/17/2024 23:33:14 07/23/2022 imaging/diagnostic result completed Information not available 04/17/2024 23:33:15 07/25/2019 imaging/diagnostic result completed Information not available 04/17/2024 23:33:16 03/03/2022 imaging/diagnostic result completed Information not available 04/17/2024 23:33:21 03/18/2022 imaging/diagnostic result completed Information not available 04/17/2024 23:33:23 01/12/2022 imaging/diagnostic result completed Information not available 04/17/2024 23:33:32 01/12/2022 imaging/diagnostic result completed Information not available 04/17/2024 23:33:33 01/03/2022 imaging/diagnostic result completed Information not available 04/17/2024 23:33:37 02/22/2022 imaging/diagnostic result completed Information not available 04/17/2024 23:33:45 07/05/2023 imaging/diagnostic result completed Information not available 04/17/2024 23:33:56 07/23/2022 imaging/diagnostic result completed Information not available 04/17/2024 23:34:22 08/14/2022 imaging/diagnostic result completed Information not available 04/17/2024 23:34:23 01/04/2022 imaging/diagnostic result completed Information not available 04/17/2024 23:34:24 01/13/2022 imaging/diagnostic result completed Information not available 04/17/2024 23:34:25 06/24/2022 imaging/diagnostic result completed Information not available 04/17/2024 23:34:27 04/21/2022 imaging/diagnostic result completed Information not available 04/17/2024 23:34:28 02/23/2022 imaging/diagnostic result completed Information not available 04/17/2024 23:34:29 04/21/2022 imaging/diagnostic result completed Information not available 04/17/2024 23:34:34 04/22/2022 imaging/diagnostic result completed Information not available 04/17/2024 23:34:42 05/26/2022 imaging/diagnostic result completed Information not available 04/17/2024 23:34:54 07/22/2022 imaging/diagnostic result completed Information not available 04/17/2024 23:35:04 06/24/2022 imaging/diagnostic result completed Information not available 04/17/2024 23:35:08 Procedure Notes None recorded. Medical Equipment None Reported. Allergies No known drug allergies Medications Name Sig Start Date Stop Date Status Note LastModified by Organization Details LastModified Time Prescript ion - Renewal active atorvast atin 80 mg tablet Not Available Not Available Not Available atorvasta tin 80 mg tablet TAKE ONE [...] Updated DateTime 3 161.925 cm 22.5 kg/m2 56972.7 3 g 98.1 [degF] 16 /min 80 /min 94 mm[Hg] 50 mm[Hg] FELICIANO MUNGUIA RN [facility] 3 10:24:47 Date Recorded Body height Body mass index (BMI) Body weight Body temperature Respiratory rate Heart rate Systolic blood pressure Diastolic blood pressure Provider Name and Address Organization Details Last Updated DateTime 4 161.92 cm 22.5 kg/m2 52694.0 1 g 98.1 [degF] 16 /min 76 /min 90 mm[Hg] 46 mm[Hg] FELICIANO MUNGUIA RN [facility] 4 09:31:55 Date Recorded Body height Body mass index (BMI) Body weight Body temperature Oxygen saturation Oxygen saturation in Arterial blood by Pulse oximetry Heart rate Systolic blood pressure Diastolic blood pressure Provider Name and Address Organization Details Last Updated DateTime 4 161.92 cm 22.7 kg/m2 08356.6 g 98.6 [degF] 100 % 100 % 80 /min 104 mm[Hg] 50 mm[Hg] RAISA ARELLANO RN [facility] 4 10:07:23 Social History Question Answer Notes LastModified by Organizat ion Details LastModified Time Tobacco Smoking Status Never Smoker FELICIANO MUNGUIA RN null, [facility] 06/17/2023 10:29:17 Date Care Plan Printed: 10/02/2023 Information not available 10/02/2023 Assigned Wrapping Checker: Hilda Ring RN Information not available 10/02/2023 Is [facility] The Lead Wrapping Checker? Yes Information not available 10/02/2023 Level Of [...] No Informa tion not available 10/02/2023 Community Asset Protection Detective Yes Information not available 10/02/2023 Dental Services No Informati on not available 10/02/2023 Diabetes Education Yes Information not available 10/02/2023 Food Resources Yes Informatio n not available 10/02/2023 Fuel Assistance No Informati on not available 10/02/2023 Hospice No Information not available 10/02/2023 Housing Yes Information not available 12/22/2023 Insurance Enrollment No Information not available 10/02/2023 Computer Specialist Care No Informatio n not available 10/02/2023 Meals On Wheels No Informati on not available 10/02/2023 Medication Assistance No Information not available 10/02/2023 Physical Activity Programs No Information not available 10/02/2023 [facility] No Informati on not available 10/02/2023 Social [...] Not Interested Information not available 10/02/2023 Health Gear Repair Supervisor For HTN Control No Information not available 10/02/2023 Tobacco Cessation No Informa tion not available 10/02/2023 Weight Loss Program No Information not available 10/02/2023 WRAP No Information not available 10/02/2023 S (Sap Data Architect) No Information not available 10/02/2023 Adult Protective Services No Information not available 10/02/2023 BAART No Information not available 10/02/2023 Community Behavioral Services No Information not available 10/02/2023 Community Restorative Justice No Information not available 10/02/2023 DCF No Information not available 10/02/2023 Department Of Labor No Information not available 10/02/2023 Economic Services No Informa tion not available 10/02/2023 EMS No Information not available 10/02/2023 [place] Support Services No Information not available 10/02/2023 HireAbility No Information not available 10/02/2023 [facility] No Information not available 10/02/2023 NECKA Yes Information not available 10/02/2023 NEKYS No Information not available 10/02/2023 RCT Yes Information not available 10/02/2023 [employer] Edge No Information not available 10/02/2023 [employer] No Information not available 10/02/2023 School Counselor No Informat ion not available 10/02/2023 School Nurse No Information not available 10/02/2023 Umbrella No Information not available 10/02/2023 VCCi No Information not available 10/02/2023 [place] [facility] No Information not available 10/02/2023 Clay Pigeon Loader On Aging No Informat ion not available 10/02/2023 Designated Agency No Informa tion not available 10/02/2023 Home Health Agency No Information not available 10/02/2023 Providers Yes Information not available 10/02/2023 [facility] No Information not available 10/02/2023 Other Support [...] Age of this Age Resolved Age Notes LastModified by Organization Details LastModified Time Father Family history of heart failure [email or web address] Not available 2022 03:54:24 Father Family history of disorder of lung [email or web address] Not available 2022 03:54:25 Father Family history of diabetes mellitus type 1 [email or web address] Not available 2022 03:54:25 Brother Family history of disorder of lung [email or web address] Not available 2022 03:54:25 Notes:*Problem: mom - alive, history of blood [...] Td(adult) unspecified formulation 10/09/2014 completed Not Available [facility] 06/12/2023 06:33:17 Influenza, split virus, trivalent, preservative 04/16/2016 completed Not Available [facility] 06/12/2023 06:33:17 Influenza, split virus, quadrivalent, PF 05/21/2021 completed Not Available [facility] 06/12/2023 06:33:17 Influenza, split virus, quadrivalent, preservative 05/17/2018 completed Not Available [facility] 06/12/2023 06:33:17 SARS-COV-2 (COVID-19) vaccine, UNSPECIFIED 08/09/2021 completed Not Available [facility] 06/12/2023 06:33:17 SARS-COV-2 (COVID-19) vaccine, UNSPECIFIED 12/17/2020 completed Not Available [facility] 06/12/2023 06:33:17 SARS-COV-2 (COVID-19) vaccine, UNSPECIFIED 01/07/2021 completed Not Available [facility] 06/12/2023 06:33:18 pneumococcal polysaccharide PPV23 12/22/2012 completed Not Available [facility] 2022 06:33:18 influenza, unspecified formulation 05/23/2019 completed [facility] 06/12/2023 06:33:18 Td(adult) unspecified formulation 10/09/2014 completed FELICIANO MUNGUIA RN [facility], [facility] 09/22/2023 14:43:22 Past Encounters Encounter ID Performer Location Encounter Start Date Encounter Closed Date Diagnosis/Indication Diagnosis SNOMED-CT Code Diagnosis ICD10 Code [id number] NAVIN PITTMAN PA-C [facility] [address] [place] [address] 06/17/2023 09:40:59 06/17/2023 10:57:50 Atherosclerosis of coronary artery without angina pectoris 2741305444 65665 I25.10 Chronic ki dney disease stage 1 710078619 N18.1 Hyperlipidemia 00455980 E78.5 Type 1 tio betes mellitus 55884035 E10.8 [id number] NAVIN PITTMAN PA-C [facility] [address] [place] [address] 09/25/2023 09:17:41 09/25/2023 10:04:19 Atherosclerosis of coronary artery without angina pectoris 3823388889 34015 I25.10 Chronic ki dney disease stage 1 224547843 N18.1 Type 1 tio betes mellitus 44826509 E10.8 [id number] NAVIN PITTMAN PA-C [facility] [address] [place] [address] 12/22/2023 09:20:52 12/22/2023 10:59:47 Atherosclerosis of coronary artery without angina pectoris 8514971748 97534 I25.10 Hyperlipidemia 86702659 E78.5 Type 1 tio betes mellitus 73166123 E10.8 Pain of left heel 468169 4896 006714 M79.672 Goals Section Goal Description Status Start [...] ID Guarantor Name 06/17/2023 1 [place] [facility] [employer] Kailey David Silver [id number] 1 Kailey David Silver 06/17/2023 2 [facility] (MEDICAID) Kailey A Silver [id number] Kailey A Silver 09/25/2023 1 [place] [facility] Kailey A Silver [id number] 1 Kailey A Silver 09/25/2023 2 [facility] (MEDICAID) Kailey A Silver [id number] Kailey A Silver 12/22/2023 1 [place] [facility] [employer] Kailey A Silver [id number] 1 Kailey A Silver 12/22/2023 2 [facility] (MEDICAID) Kailey A Silver [id number] Kailey A Silver Notes Date Note Type Note Provider Name and Address Organization Details Recorded Time 06/17/2023 text/html HPI Notes: Kailey is here for followup of cad and diabetes. She has been feeling well. No recent illnesses. Less frequent hypoglycemic episodes but did experience some of these when she tried titrating basaglar above [address], [place], [address], [facility] 06/17/2023 13:24:22 09/25/2023 text/html HPI Notes: Jessy is here for follow-up of diabetes and coronary artery disease. She has been feeling at her baseline health. No recent significant hypoglycemic episodes. She has been referred by ENT to [facility] for consideration of left ear surgery to restore some hearing. Has upcoming follow-up with cardiology. Presented to the ER for a stomach bug last month. This has resolved. [address], [place], [address], [facility]. 09/25/2023 11:15:19 12/22/2023 text/html HPI Notes: Kailey is here for follow-up of type 1 diabetes, hyperlipidemia, and hypertension. She has been doing fairly well. She was recently seen in the ER for chest pain with unremarkable cardiac workup. She has not had any recurrence of the chest pain since. She has upcoming cardiology follow-up. It has been 2 years since her [place]. Her blood sugars have been doing okay. Still gets occasional lows. It drops precipitously. Her significant other admits that he likely overcompensates for these hypoglycemic episodes. Currently having some left heel pain. Painful to put pressure on her heel. Her assistant broker knows about this. [address], [place], [address], [facility]. 12/22/2023 12:27:24 OBGyn Episode No OBEpisode recorded.
--- OUTSIDE RECORDS SUMMARY | 2024-04-29 00:48 | XMS_ITS | Encounter Summary ---
Author Organization [facility] Address [facility] [place] [address] Care Team Providers Care Truck Leasing Manager Name Role Phone Jose Pittman Primary Care Provider + [phone] Reason for Referral * Consultation (Routine) - Closed Specialty Diagnoses / Procedures Referred By Chip sebastian Referred To Contact Otolaryngology Diagnoses 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 of right ear Tiffanie Lucero APRN [address] [place] [address] [place] [address] Tj Gray MD [facility] [place] [address] Referral ID Status Reason Start Date Expiration Date V isits Requested Visits Authorized [id number] Closed Consult, Test & Treat PCP Updated and/or Approved 08/05/2023 01/02/2024 6 6 Encounter Details Date Type Department Care Team (Latest Contact Info) Description 08/11/2023 Transcribe Orders eDH Incoming Referrals [phone] Tiffanie Lucero APRN [address] [place] [address] [place], [place] [id number] Mixed conductive and sensorineural hearing loss of [...] ear documented in this encounter Care Teams Truck Leasing Manager Relationship Specialty Start Date End Date Jose Pittman PA [address] [place] [address] PCP - General Internal Medicine 01/30/22 04/01/24 documented as of this encounter
--- OUTSIDE RECORDS SUMMARY | 2024-04-29 00:48 | XMS_ITS | Clinical Summary ---
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 Encounters Date Type Department Care Team Description 04/11/2024 Transcribe Orders eD Incoming Referrals [phone] Karie Lindsey APRN Type 1 diabetes mellitus with hyperglycemia; Type 1 diabetes mellitus with diabetic polyneuropathy; Diabetic ketoacidosis without coma associated with type 2 diabetes mellitus 04/02/2024 Transcribe Orders eD Incoming Referrals [phone] Karie Lindsey APRN Left arm pain from [...] Hepatitis B vaccine (0-59 yrs) (1) 1993 Tetanus/Diphtheria/Pertussis Vaccines (1 - Tdap) 1993 HPV test 2004 PAP Smear 2004 Breast Cancer Share Decision Needed 2014 Breast Cancer screening 2014 DM Urine Microalbumin yearly 09/29/2018 09/29/2017, 08/22/2016 DM Hemoglobin A1c 04/06/2022 01/04/2022, , 08/22/2016 DM Creatinine yearly 01/06/2023 01/06/2022, 01/05/2022, 01/04/2022 Zoster vaccine (1 of 2) 2024 Covid-19 Vaccine (1 - 2022- season) 2024 Influenza (Flu) vaccine (1 o f 1 - Influenza standard series) 04/03/2024 05/23/2019, 06/17/2007 Procedures Procedure Name Priority Date/Time Associated Diagnosis Comments LAB SCAN 03/28/2024 12:00 AM EDT BASIC METABOLIC PANEL Routine 01/06/2022 4:20 AM EDT HC HEMOGLOBIN A1C Routine 01/04/2022 12: 50 AM EDT U ALBUMIN/CRE RATIO Routine 09/29/2017 1 1:30 AM EST 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 Scanning Provider MEDIA MGR SCAN EXT O RDR/RSLT * Basic Metabolic Panel (non-fasting) (01/06/2022 4:20 [...] In Lab Ray Salomon MD CHEMISTRY ORDERABLES [facility] [place] [address] * (ABNORMAL) Hemoglobin A1c (01/04/2022 12:50 AM [...] Mellitus, Diabetes Care 2013; 36: Suppl. 1, S67-23 Estimated Average Glucose 183 mg/dL [facility] [...] into estimated average glucose values. ??Diabetes Care 2008:31(8):0437-4520. Blood 01/04/2022 12:5 0 AM EDT 01/04/2022 1:24 AM EDT Narrative Resulting Agency Comment Spec In Lab Kane Ledezma MD CHEMISTRY ORDERABLES Performing Organization Address [facility] Co de Phone Number [facility] [place] [address] * U Albumin/Cre Ratio (09/29/2017 11:30 AM EST) Albumin / Creatinin Ratio, Urine 8 0 - 29 mcg/mg Cr [facility] Comment: Reference Ranges: <30 [...] 2, 357? 362 Albumin, Urine 3.3 mg/L [facility] Creatinine, Urine 42 mg/dL [facility] Urine specimen (specimen) 09/29/2017 11:30 AM EST 09/29/2017 11:40 AM EST Narrative Resulting Agency Comment Spec In Lab Francoise Tan APRN URINE ORDERABLES Performing Organization Address City/[facility]/ZIP Co de Phone Number [facility] [place] [address] from Last 3 Months or Most Recently Relevant to Health Maintenance Advance Directives * Attempt Cardiopulmonary Resuscitation - Inpatient (Latest Code Status on File) Date Activated Date Inactivated Comments 01/03/2022 11:15 PM 01/06/2022 5:03 PM Question Answer Comments Code Status decision made by: Patient Care Teams Building Consultant Relationship Specialty Start Date End Date Karie Lindsey, DEMETRIS [address] [place] [address] PCP - General Internal Medicine 04/02/24
--- OUTSIDE RECORDS SUMMARY | 2024-04-29 00:48 | XMS_ITS | Encounter Summary ---
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, LEFT ARM PAIN Karie Lindsey APRN [address] [place] [address] [facility] [address] [place] [phone] Referral ID Status Reason Start Date Expiration Date Visits Requested Visits Authorized [id number] Authorized Consult, Test & Treat PCP Updated and/or Approved 03/15/2024 03/15/2025 6 6 Encounter Details Date Type Department Care Team (Late st Contact Info) Description 04/02/2024 Transcribe Orders eDH Incoming Referrals [phone] Karie Lindsey COMMODITIES TRADER [address] [place], [place] [id number] Left arm pain Social History Tobacco Use [...] limb documented in this encounter Care Teams Building And Grounds Supervisor Relationship Specialty Start Date End Date Karie Lindsey APRN [address] [place] [address] PCP - General Internal Medicine 04/02/24 documented as of this encounter
--- OUTSIDE RECORDS SUMMARY | 2024-04-29 00:48 | XMS_ITS | Encounter Summary ---
Author Organization [facility] [place] [address] Care Team Providers Care Window Glass Cutter Off Name Role Phone Jose Pittman Primary Care Provider [phone] Reason for Referral * Consultation (Routine) - Closed Specialty Diagnoses / Procedures Referred By Chip t Referred To Contact Cardiology Diagnoses Elevated troponin Elevated troponin Giselle Cervantes APRN [address] [place] [address] [facility] Card[facility] [address] [place] [phone] Referral ID Status Reason Start Date Expiration Date V isits Requested Visits Authorized [id number] Closed Consult, Test & Treat PCP Updated and/or Approved 01/30/2022 01/30/2023 6 6 Encounter Details Date Type Department Care Team (Late st Contact Info) Description 01/30/2022 Transcribe Orders eDH Incoming Referrals [phone] Giselle Cervantes APRN [address] [place], [place] [id number] Elevated troponin Social History Tobacco Use Types [...] chemistry documented in this encounter Care Teams Window Glass Cutter Off Relationship Specialty Start Date End Date Jose Pittman PA [address] [place] [address] PCP - General Internal Medicine 01/30/22 04/01/24 documented as of this encounter
--- OUTSIDE RECORDS SUMMARY | 2024-04-29 00:48 | XMS_ITS | Encounter Summary ---
Author Organization [facility] [place] [address] Care Team Providers Care Forest Law And Policy Professor Name Role Phone Karie Lindsey APRN Primary Care Provider [phone] Reason for Referral * Consultation (Routine) - Authorized Specialty Diagnoses / Procedures Referred By Chip sebastian Referred To Contact Endocrinology Diagnoses Type 1 diabetes mellitus with hyperglycemia Type 1 diabetes mellitus with diabetic polyneuropathy Diabetic ketoacidosis without coma associated with type 2 diabetes mellitus POORLY CONTROLLED DIABETES, RECENT IN PT ADMISSION FOR DKA Fe Louis, DEMETRIS [address] [place] [address] [facility] Endocrinology [address] [place] [phone] Referral ID Status Reason Start Date Expiration Date Visits Requested Visits Authorized [id number] Authorized Consult, Test & Treat PCP Updated and/or Approved 03/24/2024 03/24/2025 6 6 Encounter Details Date Type Department Care Team (Latest Contact Info) Description 04/11/2024 Transcribe Orders eDH Incoming Referrals [phone] Karie Lindsey APRN [address] [place], [place] [id number] Type 1 diabetes mellitus with hyperglycemia; Type 1 diabetes mellitus with diabetic polyneuropathy; Diabetic ketoacidosis without coma associated with type 2 diabetes mellitus Social History Tobacco Use Types Packs/Day Years [...] Associated Diagnoses Orde r Schedule Referral to Endocrinology Outpatient Referral Routine Type 1 diabetes mellitus with hyperglycemia Type 1 diabetes mellitus with diabetic polyneuropathy Diabetic ketoacidosis without coma associated with type 2 diabetes mellitus Ordered: 04/11/2024 documented as of this encounter Visit Diagnoses Diagnosis Type 1 diabetes mellitus with hyperglycemia Type I (juvenile type) diabetes mellitus without mention of complication, not stated as uncontrolled Type 1 diabetes mellitus with diabetic polyneuropathy Type I (juvenile type) diabetes mellitus with neurological manifestations, not stated as uncontrolled Diabetic ketoacidosis without coma associated with type 2 diabetes mellitus documented in this encounter Care Teams Forest Law And Policy Professor Relationship Specialty Start Date End Date Karie Lindsey APRN [address] [place] [address] PCP - General Internal Medicine 04/02/24 documented as of this encounter
--- OUTSIDE RECORDS SUMMARY | 2024-04-29 00:48 | XMS_ITS | Encounter Summary ---
Author Organization [facility] Address [facility] [place] [address] Care Team Providers Care Web Systems Developer Name Role Phone Felisha Juan APRN Primary Care Provider + [phone] Encounter Details Date Type Department Care Team (Late st Contact Info) Description 01/12/2022 Telephone Cardiology at [address] [place] [phone] Irving Alexander MD [facility] [place] [address] Social History Tobacco Use Types Packs/Day Years [...] PM Referring Provider: Dr. Wilcox Patient Location: [facility] Presenting Symptoms per OSH: Kailey Hernandez is a 46 y.o. 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 She presented recently to [facility] with inferior STEMI and is now s/p PCI with TRACIE x2 to RCA. Discharged on 01/06/22. Presents to [facility] with fatigue. - She [...] any acute changes due to her recent [place]. She may have some side effects from [...] on filedocumented in this encounter Care Teams Web Systems Developer Relationship Specialty Start Date End Date Felisha Juan, DEMETRIS [address] [place] [address] PCP - General Family Medicine 10/29/15 01/29/22 documented as of this encounter
--- OUTSIDE RECORDS SUMMARY | 2024-04-29 00:48 | XMS_ITS | Encounter Summary ---
Author Organization [facility] Address [facility] [place] [address] Care Team Providers Care Skating Rink Manager Name Role Phone Felisha uJan APRN Primary Care Provider + [phone] Encounter Details Date Type Department Care Team (Late st Contact Info) Description 01/12/2022 External Results Administration [facility] [place] [address] Social History Tobacco Use Types Packs/Day Years [...] on filedocumented in this encounter Care Teams Skating Rink Manager Relationship Specialty Start Date End Date Felisha Juan APRN [address] [place] [address] PCP - General Family Medicine 10/29/15 01/29/22 documented as of this encounter
--- OUTSIDE RECORDS SUMMARY | 2024-04-29 00:49 | XMS_ITS | Encounter Summary ---
Author Organization [facility] Address [facility] [place] [address] Care Team Providers Care Electrical Equipment Tester Name Role Phone Jose Pittman Primary Care Provider + [phone] Reason for Visit * Reason Onset Date Comments Medication Refill 11/09/2017 Encounter Details Date Type Department Care Team (Late st Contact Info) Description 11/09/2017 Ref[place] [address] Francoise Tan [facility] DR END[place] [address] Diabetes mellitus without complication Social History Tobacco [...] uncontrolled documented in this encounter Care Teams Electrical Equipment Tester Relationship Specialty Start Date End Date Jose Pittman PA [address] [place] [address] PCP - General Internal Medicine 01/30/22 04/01/24 documented as of this encounter
--- OUTSIDE RECORDS SUMMARY | 2024-04-29 00:49 | XMS_ITS | Encounter Summary ---
Author Organization [facility] [place] [address] Care Team Providers Care Instrumentation Specialist Name Role Phone Yessica Felisha SPEECH COMMUNICATION INSTRUCTOR Primary Care Provider [phone] Reason for Visit * Reason Onset Date Comments Medication Refill 11/12/2017 Encounter Details Date Type Department Care Team (Late st Contact Info) Description 11/12/2017 Ref[place] [address] Francoise Tan SPEECH COMMUNICATION INSTRUCTOR [facility] [place] [address] Diabetes mellitus without complication Social History Tobacco [...] uncontrolled documented in this encounter Care Teams Instrumentation Specialist Relationship Specialty Start Date End Date Felisha Juan APRN [address] [place] [address] PCP - General Family Medicine 10/29/15 01/29/22 documented as of this encounter
--- OUTSIDE RECORDS SUMMARY | 2024-04-29 00:49 | XMS_ITS | Encounter Summary ---
Author Organization [facility]ly [facility] [place] [address] Care Team Providers Care Curtain Fitter Name Role Phone Yessica Felisha WILLSON Primary Care Provider + [phone] Reason for Visit * Reason Onset Date Comments Pump/sensor 02/07/2021 Encounter Details Date Type Department Care Team (Late st Contact Info) Description 02/07/2021 Telephone [place] [phone] Tosin Solares Pump/sensor Social History Tobacco Use [...] AM EDT Documentation request received from [facility]. 11/13/20 office notes routed Confirmed 02/07 documented in this encounter Plan of Treatment Not on file documented as of this encounter Visit Diagnoses Not on filedocumented in this encounter Care Teams Curtain Fitter Relationship Specialty Start Date End Date Felisha Juan APRN [address] [place] [address] PCP - General Family Medicine 10/29/15 01/29/22 documented as of this encounter
--- OUTSIDE RECORDS SUMMARY | 2024-04-29 00:49 | XMS_ITS | Encounter Summary ---
Author Organization [facility] [place] [address] Care Team Providers Care Picker Name Role Phone Felisha Juan APRN Primary Care Provider [phone] Encounter Details Date Type Department Care Team (Late st Contact Info) Description 11/09/2017 Orders [place] [address] Francoise Tan APRN [facility] [place] [address] Social History Tobacco Use Types Packs/Day Years [...] on filedocumented in this encounter Care Teams Picker Relationship Specialty Start Date End Date Felisha Juan APRN [address] [place] [address] PCP - General Family Medicine 10/29/15 01/29/22 documented as of this encounter
--- OUTSIDE RECORDS SUMMARY | 2024-04-29 00:49 | XMS_ITS | Encounter Summary ---
Author Organization [facility] Address [facility] [place] [address] Care Team Providers Care Rn Trauma Name Role Phone Felisha Juan APRN Primary Care Provider + [phone] Reason for Visit * Reason Onset Date Comments Medication Problem 11/19/2020 Encounter Details Date Type Department Care Team (Late st Contact Info) Description 11/19/2020 Telephone [place] [address] Carlos Ann MD [facility] [place] [address] Medication Problem Social History Tobacco Use Types [...] he asked to have them sent to [facility] instead. Delano stated the phone number to [facility] is [phone]. Please call Delano with any questions . [...] on filedocumented in this encounter Care Teams Rn Trauma Relationship Specialty Start Date End Date Felisha Juan, DEMETRIS [address] [place] [address] PCP - General Family Medicine 10/29/15 01/29/22 documented as of this encounter
--- OUTSIDE RECORDS SUMMARY | 2024-04-29 00:49 | XMS_ITS | Encounter Summary ---
Author Organization [facility] [place] [address] Care Team Providers Care Custom Designer Name Role Phone Felisha Juan APRN Primary Care Provider + [phone] Encounter Details Date Type Department Care Team (Late st Contact Info) Description 08/18/2017 Notes Only Endocrinology at [facility] [address] Danielle Trejo, GUSTAVO Social History Tobacco Use [...] on filedocumented in this encounter Care Teams Custom Designer Relationship Specialty Start Date End Date Felisha Juan APRN [address] [place] [address] PCP - General Family Medicine 10/29/15 01/29/22 documented as of this encounter
--- OUTSIDE RECORDS SUMMARY | 2024-04-29 00:49 | XMS_ITS | Encounter Summary ---
Author Organization [facility] [place] [address] Care Team Providers Care Stake Driver Name Role Phone Felisha Juan DEMETRIS Primary Care Provider + [phone] Reason for Visit * Reason Comments Diabetes Encounter Details Date Type Department Care Team (Latest Contact Info) Description 09/29/2017 10:30 AM EST Office [place] [address] Francoise Tan APRN [facility] DR ENDOCRINOLOGY [place] [address] Type 1 diabetes mellitus with proliferative retinopathy [...] Tan APRN - 09/29/2017 10:30 AM EST [facility] in [place] for dental care. Soft brush and floss Contact [facility] [place] documented in this encounter Progress Notes * [...] TSH ,microalbumin. Gaver her information to contact [facility] for dental care. This was a 38 minute office visit with 27 minutes spent counseling [id number] with patient and friend in the management [...] Stimulating Hormone 0.63 0.27 - 4.20 mlU/ML [facility] Blood specimen (specimen) 09/29/2017 11:39 AM EST 09/29/2017 11:49 AM EST Narrative Resulting Agency Comment Spec In Lab Francoise Tan APRN CHEMISTRY ORDERABLE S [facility] [place] [address] * (ABNORMAL) Hemoglobin A1c (09/29/2017 11:39 AM EST) Hemoglobin A1c 7.4(H) 4.3 - 5.6 % [facility] Comment: Reference Range: 4.3 - [...] Mellitus, Diabetes Care 2013; 36: Suppl. 1, H92-34 Estimated Average Glucose 166 mg/dL [facility] Comment: eAG equivalents for HbA1c [...] into estimated average glucose values. ??Diabetes Care 2008:31(8):3292-7460. Blood specimen (specimen) 09/29/2017 11:39 AM EST 09/29/2017 11:49 AM EST Narrative Resulting Agency Comment Spec In Lab Francoise Tan APRN CHEMISTRY ORDERABLE S [facility] [place] [address] * U Albumin/Cre Ratio (09/29/2017 11:30 AM [...] 2, 357? 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
--- OUTSIDE RECORDS SUMMARY | 2024-04-29 00:49 | XMS_ITS | Encounter Summary ---
Author Organization [facility] Address [facility] [place] [address] Care Team Providers Care Ferry Captain Name Role Phone Carey Hall MD Primary Care Provider [phone] Reason for Visit * Reason Comments Diabetic Foot Care Other left foot 2nd toe in jury Encounter Details Date Type Department Care Team (Late st Contact Info) Description 02/20/2015 8:30 AM EDT Office Visit Podiatry at [address] [place] [address] Ritesh Mackey Jr., [address] [place] [address] Dermatophytosis of nail; Foot pain, unspecified laterality; [...] on palpation. Nails display clinical signs of [id number] in appearance, thickened greater than 2mm, Brittle [...] uncontrolled documented in this encounter Care Teams Ferry Captain Relationship Specialty Start Date End Date Carey Hall MD [address] [place] [address] PCP - General 06/25/10 10/28/15 documented as of this encounter
--- OUTSIDE RECORDS SUMMARY | 2024-04-29 00:49 | XMS_ITS | Encounter Summary ---
[place] [address] Care Team Providers Care Ribbing Machine Operator Name Role Phone Felisha Juan APRN Primary Care Provider + [phone] Reason for Visit * Reason Onset Date Comments Medication Refill 08/12/2017 Encounter Details Date Type Department Care Team (Late st Contact Info) Description 08/12/2017 Refill [place] [address] Ivette Hewitt V RN Controlled type 1 [...] severity documented in this encounter Care Teams Ribbing Machine Operator Relationship Specialty Start Date End Date Felisha Juan APRN [address] [place] [address] PCP - General Family Medicine 10/29/15 01/29/22 documented as of this encounter
--- OUTSIDE RECORDS SUMMARY | 2024-04-29 00:49 | XMS_ITS | Encounter Summary ---
Author Organization [facility] [place] [address] Care Team Providers Care Fish And Wildlife Biologist Name Role Phone Felisha Juan APRN Primary Care Provider + [phone] Encounter Details Date Type Department Care Team (Late st Contact Info) Description 07/30/2017 Notes Only Endocrinology at [facility] [place] [address] Huong Ovalle, RN Social History Tobacco Use [...] on filedocumented in this encounter Care Teams Fish And Wildlife Biologist Relationship Specialty Start Date End Date Felisha Juan APRN [address] [place] [address] PCP - General Family Medicine 10/29/15 01/29/22 documented as of this encounter
--- OUTSIDE RECORDS SUMMARY | 2024-04-29 00:49 | XMS_ITS | Encounter Summary ---
Author Organization [facility] [place] [address] Care Team Providers Care Boring Machine Set Up Operator Name Role Phone Felisha Juan APRN Primary Care Provider + [phone] Reason for Visit * Reason Onset Date Comments Pump/sensor 08/31/2019 Encounter Details Date Type Department Care Team (Late st Contact Info) Description 08/31/2019 Tele[place] [address] Tosin Solares Pump/sensor Social History Tobacco Use Types Packs/Day Years Used Date Smoking Tobacco: Never Smokeless Tobacco: Never Sex and Gender Information Value Date Recorded Sex Assigned at Not on file Gender Identity Not on file Sexual Orientation Not on file documented as of this encounter Miscellaneous Notes * Telephone Encounter - Tosin Solares - 08/31/2019 10:47 AM EST Documentation request received from [place] [phone] office notes routed Confirmed 08/31 documented in this encounter Plan of Treatment Not on file documented as of this encounter Visit Diagnoses Not on filedocumented in this encounter Care Teams Boring Machine Set Up Operator Relationship Specialty Start Date End Date Felisha Juan APRN [address] [place] [address] PCP - General Family Medicine 10/29/15 01/29/22 documented as of this encounter
--- OUTSIDE RECORDS SUMMARY | 2024-04-29 00:49 | XMS_ITS | Encounter Summary ---
Author Organization [facility] [place] [address] Care Team Providers Care Technical Customer Support Specialist Name Role Phone Felisha Juan APRN Primary Care Provider + [phone] Encounter Details Date Type Department Care Team (Latest Contact Info) Description 08/22/2016 9:00 AM EST Laboratory Appointment Lab at [facility] [place] [address] Type 1 diabetes mellitus with retinopathy Social [...] Urine 17 0 - 29 mcg/mg Cr [facility] Comment: Reference Ranges: <30 [...] 2, 357? 362 Albumin, Urine 12.4 mg/L [facility] Creatinine, Urine 75 mg/dL [facility] Urine specimen (specimen) 08/22/2016 9:06 AM EST 08/22/2016 9:20 AM EST Narrative Resulting Agency Comment Spec In Lab Olegario Wright DO URINE ORDERABLES [facility] [place] [address] * Lipid panel (fasting) (08/22/2016 8:51 AM EST) Cholesterol, Total 129 <=239 mg/dL [facility] Triglyceride 56 <=199 mg/dL [facility] HDL Cholesterol 55 >=40 mg/dL [facility] LDL Cholesterol 63 <=190 mg/dL [facility] Cholesterol/HDL Ratio 2.3 ratio [facility] Lipid Interpretation See Note [facility] Comment: Lipid management should be guided by a patient? s ASCVD risk, goals and preferences. ACC/AHA Guidelines recommend high intensity statin if clinical ASCVD or LDL greater than or equal to 190 mg/dL. http://circ.ahajournals.org/content/early/.cir.6507603025.92411.7a Adults aged 40-75 with LDL 70-189 mg/dL should have their 10 year ASCVD risk estimated with the ACC/AHA ASCVD risk flatbed owner operator http://tools.acc.org/JAQQF-Rtdm-Nlpdreyle/ Statin should be discussed if risk greater [...] In Lab Olegario Wright DO CHEMISTRY ORDERABLES [facility] [place] [address] * (ABNORMAL) Hemoglobin A1c (08/22/2016 8:51 AM EST) Hemoglobin A1c 7.4(H) 4.3 - 5.6 % [facility] Comment: Reference Range: 4.3 [...] Mellitus, Diabetes Care 2013; 36: Suppl. 1, L37-92 Estimated Average Glucose 166 mg/dL [facility] Comment: eAG equivalents for HbA1c percentages: HbA1c(%) ?eAG(mg/dL) 6.0 ?126 6.5 ?140 7.0 ?154 7.5 ?169 8.0 ?183 8.5 ?197 9.0 ?212 9.5 ?226 10.0 ? 240 Limitations: The eAG calculation has not been validated on women, individuals below 18 years old and above 70 years old, and individuals with hemoglobinopathies. Additional resources are available on the ADA website: http://[employer]/DHMCadacalc Tj JESSICA, Mal J, Bk R, et al. ??Translating the A1C assay into estimated average glucose values. ??Diabetes Care 2008:31(8):7998-2016. Blood specimen (specimen) 08/22/2016 8:51 AM EST 08/22/2016 8:58 AM EST Narrative Resulting Agency Comment Spec In Lab Olegario Wright DO CHEMISTRY ORDERABLES Performing Organization Address City/State/[facility] Co de Phone Number [facility] [place] [address] documented in this encounter Visit Diagnoses Diagnosis Type 1 diabetes mellitus with retinopathy documented in this encounter Care Teams Technical Customer Support Specialist Relationship Specialty Start Date End Date Felisha Juan APRN [address] [place] [address] PCP - General Family Medicine 10/29/15 01/29/22 documented as of this encounter
--- OUTSIDE RECORDS SUMMARY | 2024-04-29 00:49 | XMS_ITS | Encounter Summary ---
Author Organization [facility] Address [facility] [place] [address] Care Team Providers Care Automobile Mechanic Name Role Phone Felisha Juan APRN Primary Care Provider [phone] Reason for Referral * Consultation (Routine) - Closed Specialty Diagnoses / Procedures Referred By Contact Referred To Contact Cardiac Rehabilitation Diagnoses ST elevation myocardial infarction involving right coronary artery Marc Bowles MD [facility] [place] [address] Cardiac Rehab, [address] [address] Referral ID Status Reason Start Date Expiration Date V isits Requested Visits Authorized [id number] Closed Consult, Test & Treat 01/06/2022 01/06/2023 36 36 * Consultation (Routine) - Closed Specialty Diagnoses / Procedures Referred By Contac t Referred To Contact Diagnoses ST elevation myocardial infarction involving right coronary artery Marc Bowles MD [facility] [place] [address] [place], [place] Referral ID Status Reason Start Date Expiration Date V isits Requested Visits Authorized [id number] Closed Consult, Test & Treat 01/06/2022 07/05/2022 1 1 Reason for Visit * Auth/Cert Specialty Diagnoses / Procedures Referred By Contac t Referred To Contact Diagnoses STEMI (ST elevation myocardial infarction) STEMI Procedures CARDIAC CATHETERIZATION Geraldo Salomon MD [facility] [place] [address] [facility] Referral ID Status Reason Start Date Expiration Date Visits Re quested Visits Authorized [id number] 1 1 Encounter Details Date Type Department Care Team (Latest Contact Info) Description 01/03/2022 10:19 PM EDT - 01/06/2022 3:03 PM EDT Hospital [place] [id number] Moi Ledezma MD [facility] [place] [address] Geraldo Salomon MD [facility] [place] [address] ST elevation myocardial infarction involving right coronary [...] Afua Rosales Patient Age: 46 y.o. Language: Nigerian Race: White Ethnicity: Not nor Admit date: [...] will need follow up with cardiology at [facility] as well as to establish care. [...] her nauseous. ?? On arrival to [facility], she was afebrile, BP was 95/54, she was oxygenating normally on room air. She was infused with 1L IV fluids, given 25 mg of aspirin (per [facility] discharge note). The on-call antenna engineer at [facility] was contacted, she was given 300 mg of Plavix, aspirin, heparin with bolus and drip. She was also given tecteplase 35mg. ?? On arrival to [facility] component lab tech, she underwent LHC and received TRACIE x2 [...] for you to establish care with a supervisor fishing at [facility] as well as a referral to [...] appointments: During 8am-5pm Thursday through Thursday call [phone] to speak with a nurse in the cardiology clinic All other times call [phone] and ask to speak to the antenna engineer induction machine setter. Activity level: - No heavy lifting (more [...] none Follow up Appointments: No future appointments. Budget Analyst: You will be contacted by [facility] to schedule a cardiology appointment to establish care. PCP: Felisha Juan APRN at [phone] Your Inpatient Doctor(s) at [facility]: Geraldo Salomon MD - Attending physician Cam David MD - Energy Systems Laboratory Director physician Your Primary Care Provider: Felisha Juan APRN [address] [facility] [id number] For questions regarding issues relating to your hospitalization on the Hospital Medicine Service, please contact your inpatient physician through the [facility] Table Saw Operator [phone]. Issues after hours and on weekends will be handled by the Hospitalist staff on-call. General Instructions None Future Appointments and Orders Future Orders Complete By Expires Referral to Cardiac Rehab [DIR033 Custom] As directed Process Instructions: If no progress note charted, please enter Clinical details in comments. Scheduling Instructions: Questions: My question or request is: cardiac rehab referral s/p STEMI, she would benefit from location close to [facility] Referral to Cardiology [REF12 Custom] As directed Process Instructions: If no progress note charted, please enter Clinical details in comments. Scheduling Instructions: Questions: My question or request is: establish care after inferoposterior stemi Provider Contact Information: [address] / [facility] [address] Discharge References/Attachments: Discharge References/Attachments None Associated attestation - Geraldo Salomon MD - 01/06/2022 1:51 PM EDT Dear Colleagues, I was the attending at the time of discharge. Please call or email me if you have questions. Geraldo Salomon MD, [facility] Cardi[facility] Medicine [phone] documented in this encounter Discharge Instructions * [...] for you to establish care with a supervisor fishing at [facility] as well as a referral to [...] appointments: During 8am-5pm Thursday through Thursday call [phone] to speak with a nurse in the cardiology clinic All other times call [phone] and ask to speak to the antenna engineer induction machine setter. Activity level: - No heavy lifting (more [...] none Follow up Appointments: No future appointments. Budget Analyst: You will be contacted by [facility] to schedule a cardiology appointment to establish care. PCP: Felisha Juan APRN at [phone] Your Inpatient Doctor(s) at [facility]: Geraldo Salomon MD - Attending physician Cam David MD - Energy Systems Laboratory Director physician Your Primary Care Provider: Felisha Juan APRN [address] [facility] [address] For questions regarding issues relating to your hospitalization on the Hospital Medicine Service, please contact your inpatient physician through the [facility] Table Saw Operator [phone]. Issues after hours and on weekends will [...] detail Patient transport has been arranged through [facility]. Nilda will be arriving in a [...] CHO control level 2 Elba Pavon APRN [facility] Endocrinology Diabetes Management Pager [phone] 20 minutes of this 35 minute visit [...] Cuff Relevant medications: noted Last Bowel Movement: (CCU NURSE) Admit Weight: 66.1 kg Estimated body mass index is 22.86 kg/m?? as calculated from the following: Height as of this encounter: 165.1 cm (5' 5). Weight as of this encounter: 62.3 kg (137 lb 5.6 oz). [place] Body Weight: 125 lbs / 56.7 kg [...] up while inpatient Phuong Cle[address] RD Pager #:[phone] * Geraldo Salomon MD - 01/06/2022 6:54 AM EDT Images from the original note were not included. Inpatient Cardiology Progress Note Patient info: Name: Afua Rosales : 1975 PCP: Felisha Juan APRN PCP phone number: [phone] Date of Admission: 01/03/2022 ( Hospital Day 3 days ) Attending:Geraldo Salomon MD ID: Afua Rosales is a 46 y.o. 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 She presents with inferior STEMI and is now s/p PCI with TRACIE x2 to RCA. Hospital Day3 24 Hour Events/Subjective: - GUSTAVO ROJAS - pharmacy is [email or web address] in [facility], BF can fiber picker at 6 pm when neighbor's car [...] Procedure Component Value Units Date/Time COVID-19 PCR [[id number]] Collected: 01/04/2249 Lab Status: Final result Specimen: [...] using the Simplexa COVID-19 Direct Assay by [employer] as authorized by the FDA issued Emergency [...] Department of Pathology and Laboratory Medicine at [facility], certified under the Clinical Laboratory Improvement Amendments [...] fact sheets at the following FDA website: https://www.fda.gov/medical-devices/hecjdlxwgwg-sanmugw-2248-bjqcv-66-ggbgflvob- urr-yzsitievasunlv-ndnmzhd-devices/tvrrs-vapwajminjh-vuyc SARS-CoV-2 Source BED PLACEMENT COORDINATOR Swab Imaging: No results found for this [...] David MD Internal Medicine, PGY-1 Cardiology, S2 ([id number]) 01/06/22 Cardiology Staff Addendum Afua Rosales is [...] Sky ? Lucia Alexander Endocrinology Fellow Pager [phone] I have seen the patient and reviewed [...] PCP: Felisha Juan APRN PCP phone number: [phone] Date of Admission: 01/03/2022 ( Hospital Day [...] Procedure Component Value Units Date/Time COVID-19 PCR [[id number]] Collected: 01/04/2249 Lab Status: Final result Specimen: [...] using the Simplexa COVID-19 Direct Assay by [employer] as authorized by the FDA issued Emergency [...] Department of Pathology and Laboratory Medicine at [facility], certified under the Clinical Laboratory Improvement Amendments [...] fact sheets at the following FDA website: https://www.fda.gov/medical-devices/zotomcmuznh-axtyido-4027-trnzg-48-yuaitqohg- eno-bmnmaccezxooby-ercdyus-devices/ejeuv-bkubzsdidfw-lkdv SARS-CoV-2 Source BED PLACEMENT COORDINATOR Swab Imaging: No results found for this [...] Clark MD - 01/04/2022 3:25 AM EDT [facility] TeleICU Initial Assessment Note I established audio/visual communication with the patient's room, reviewed the eDH. History and Assessment: 46 y.o. 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 STEMIalert activated and went to component lab tech where proximal and mid RCA stents were [...] tablet 12.5 mg, 12.5 mg, Oral, Q8H [facility], Sumanth Barnard MD ??? clopidogreL (Plavix) tablet [...] PCP: Felisha Juan APRN PCP phone number: [phone] Date of Admission: 01/03/2022 ( Hospital Day [...] made her nauseous. On arrival to [facility], she was afebrile, BP was 95/54, she was oxygenating normally on room air. She was infused with 1L IV fluids, given 25 mg of aspirin (per [facility] discharge note). The on-call antenna engineer at [facility] was contacted, she was given 300 mg of Plavix, aspirin, heparin with bolus and drip. She was also given tecteplase 35mg. On arrival to [facility] component lab tech, she underwent LHC and received TRACIE x2 [...] COVID test: Lab Results Component Value Date [id number] Not Detected 01/04/2022 Past medical History: No past medical history on file. Hospitalizations Within the Past 30 Days: no previous admission in last 30 days Current Decision-Making Capacity: Self Advance Care Planning: Attempt Cardiopulmonary Resuscitation - Inpatient <no information> -Advanced Directive: No, need to discuss If AD's have not been completed daughter would be surrogate decision maker per [place] surrogate decision making law. (Only good for 180 days) Any patient receiving care at [facility] must abide by [place] law. The hierarchy for surrogate decision making [...] (i) The agent with financial power of ip attorney or a conservator appointed in accordance with RSA 464-A. (j) The guardian of the patient???s estate. Current Coping/Education/Information Needs: Patient has a good understanding of hospitalization andDishcarge plan Current Functional Ability: Independent Functional Status Prior to Admission: Independent Prior ADLs & IADLs: Independent with all ADLs & IADLs Home Environment: Others in the home: child(arati), adult, significant other, pet(s). Current Living Arrangements: home/apartment/condo. Accessibility Concerns:Has 4 JASSON but manages well. Has a cat and 4 guinea pigs in the home . Resource / Environmental Concerns: Resource/Environmental Concerns: none Current DME: none Home Address confirmed as: [address] [facility] [address] Social & Family Supports: All names listed below confirmed with patient as current and correct Extended Emergency Contact Information Primary Emergency Contact: Delano Reyna [facility] Mobile Relation: Friend Current Care Provided by: [...] MEDICAID [place] Prescription Coverage: Yes Preferred Pharmacy: [id number] - [place], [place] - [address] [place] [address] AT [address] [facility] [address] [facility] [address] [id number] - [place], [place] - [address] [facility] [address] [facility] [address] [place] Status: Patient is a : No Primary Care Provider: Felisha Juan APRN [phone] Patient/Caregiver Goals of Treatment: To go home [...] planning. Office of Care Management Surgery Team Pin Ticket Machine Operator [email or web address] Pager [phone] * Consult Note - Mark Sky [...] and to provide a review of intermediate diabetescare. Diabetes History: Afua Rosales has had [...] meal) 4. Carb controlled diet level 2 FDC diabetes care: Medications - Outpatient treatment regimen recommendations pending based on the hospital course. Monitoring - continue BG check q4 hours for now Diet - low fat/low carb diet Exercise - weight-bearing exercise 30 min/day, as tolerated Thank you for allowing us to provide care for your patient. Discussed with Dr. Asya Alexander Endocrinology Fellow Pager [phone] I have seen the patient and reviewed [...] Glucose, POC 197 65 - 199 mg/dL [facility] Comment: Supplemental ranges: <140 mg/dL before meals <180 mg/dL all other times of the day Blood 01/06/2022 2:32 PM EDT 01/06/2022 2:32 PM EDT Geraldo Salomon MD POINT OF CARE TEST O MUSHTAQ Performing Organization Address City/[facility]/ZIP Co de Phone Number [facility] [place] [address] * (ABNORMAL) POCT Glucose (01/06/2022 11:47 AM EDT) Glucose, POC 299(H) 65 - 199 mg/dL [facility] Comment: Supplemental ranges: <140 mg/dL before meals <180 mg/dL all other times of the day Blood 01/06/2022 11:4 7 AM EDT 01/06/2022 11:47 AM EDT Geraldo Salomon MD POINT OF CARE TEST Natalia LANDIN [facility] [place] [address] * POCT Glucose (01/06/2022 8:01 AM EDT) Glucose, POC 142 65 - 199 mg/dL [facility] Comment: Supplemental ranges: <140 mg/dL before meals <180 mg/dL all other times of the day Blood 01/06/2022 8:01 AM EDT 01/06/2022 8:01 AM EDT Geraldo Salomon MD POINT OF CARE TEST O RDERABLES Performing Organization Address [facility]/ZIP Co de Phone Number [facility] [place] [address] * Differential, Automated (01/06/2022 4:20 AM EDT) Neutrophil % 51.9 % [facility] Neutrophil Absolute 3.34 1.70 - 6.10 x10(3)/[facility] Lymph % 32.5 % [facility] Lymphocytes Abs 2.1 0.9 - 3.2 x10(3)/[facility]OR[facility]ORY Monocyte % 13.7 % [facility] Monocyte Abs 0.9 0.3 - 0.9 x10(3)/[facility] Eos % 1.1 % [facility] Eosinophils Abs 0.1 0.0 - 0.4 x10(3)/[facility]OR[facility] Basophil % 0.6 % [facility] Baso Absolute 0.0 0.0 - 0.1 x10(3)/[facility] Immature Gran % 0.20 % [facility] Comment: Immature granulocytes(IG's)percentage and absolute count will include metamyelocytes, myelocytes, and promyelocytes. Blood smears from CBCs yielding IG's will be scanned manually for concordance. If this scan disagrees with the automated IG or if promyelocytes are noted, a manual differential will be performed. Immature Gran Absolute 0.01 0.00 - 0.04 x10(3)/[facility] Blood 01/06/2022 4:20 AM EDT 01/06/2022 4:39 AM EDT Narrative Resulting Agency Comment Spec In Lab Cam David MD HEMATOLOGY ORDERABLE S Performing Organization Address City[facility]/ZIP Co de Phone Number [facility] [place] [address] * (ABNORMAL) Hemogram (01/06/2022 4:20 AM EDT) White Blood Cell 6.4 4.0 - 9.5 x10(3)/mc L [facility] Red Blood Cell 3.86(L) 4.00 - 5.21 x10(6)/mc L [facility] Hemoglobin 12.4 11.7 - 15.5 g/dL [facility] Hematocrit 36.0 35.7 - 45.8 % [facility] Mean Cell Volume 93.3 82.6 - 94.4 fL [facility] Mean Cell Hemoglobin 32.1(H) 27.1 - 32.0 pg [facility] Mean Cell Hemoglobin Concentration 34.4 31.7 - 35.0 g/dL [facility] Platelet 177 145 - 357 x10(3)/ L [facility] RDW Standard Deviation 42.0 37.0 - 46.0 fL [facility] RDW coefficient of variation 12.1 11.5 - 14.1 % [facility] Mean Platelet Volume 10.0 7.6 - 12.9 fL [facility] NRBC% auto 0.0 % [facility] NRBC Absolute 0.000 0.000 - 0.000 x10(3)/ L [facility] Blood 01/06/2022 4:20 AM EDT 01/06/2022 4:39 AM EDT Narrative Resulting Agency Comment Spec In Lab Cam David MD HEMATOLOGY ORDERABLE S [facility] [place] [address] * Basic Metabolic Panel (non-fasting) (01/06/2022 4:20 AM EDT) Pathologist [facility] Glucose 123 65 - 199 mg/dL [facility] Comment:Diabetes: >=200 mg/d L plus symptoms Blood Urea Nitrogen 13 8 - 18 mg/dL [facility] Creatinine 0.77 0.70 - 1.20 mg/dL [facility] Sodium 137 135 - 145 mmol/L [facility] Potassium 4.0 3.5 - 5.0 mmol/L [facility] Comment: Please note: ??Patients with WBC >100,000 may have falsely elevated Potassium levels. ??For accurate Potassium quantification in these patients send serum separator tube (gold top) for subsequent determinations. ??Contact the Clinical Chemistry Laboratory if there are any questions. Chloride 102 98 - 107 mmol/L [facility] Carbon Dioxide 26 22 - 31 mmol/L [facility] Anion Gap 9 5 - 15 mmol/L [facility] Calcium 9.2 8.5 - 10.5 mg/dL [facility] Est Glomerular Filtration Rate 92 >=60 mL/min/1. 73 m?? [facility] Comment: This patient? s [...] In Lab Geraldo Salomon MD CHEMISTRY ORDERABLES [facility] [place] [address] * POCT Glucose (01/06/2022 3:46 AM EDT) Glucose, POC 129 65 - 199 mg/dL [facility] Comment: Supplemental ranges: <140 mg/dL before meals <180 mg/dL all other times of the day Blood 01/06/2022 3:46 AM EDT 01/06/2022 3:46 AM EDT Geraldo Salomon MD POINT OF CARE TEST O RDERAFRANKLIN Performing Organization Address City[facility] Co de Phone Number [facility] [place] [address] * POCT Glucose (01/06/2022 12:06 AM EDT) Glucose, POC 125 65 - 199 mg/dL [facility] Comment: Supplemental ranges: <140 mg/dL before meals <180 mg/dL all other times of the day Blood 01/06/2022 12:0 6 AM EDT 01/06/2022 12:06 AM EDT Geraldo Salomon MD POINT OF CARE TEST O SANDEEPERAFRANKLIN Performing Organization Address [facility] Co de Phone Number [facility] [place] [address] * (ABNORMAL) POCT Glucose (01/05/2022 8:11 PM EDT) Glucose, POC 220(H) 65 - 199 mg/dL [facility] Comment: Supplemental ranges: <140 mg/dL before meals <180 mg/dL all other times of the day Blood 01/05/2022 8:11 PM EDT 01/05/2022 8:11 PM EDT Geraldo Salomon MD POINT OF CARE TEST O RDERAFRANKLIN Performing Organization Address [facility] Co de Phone Number [facility] [place] [address] * POCT Glucose (01/05/2022 6:00 PM EDT) Glucose, POC 190 65 - 199 mg/dL [facility] Comment: Supplemental ranges: <140 mg/dL before meals <180 mg/dL all other times of the day Blood 01/05/2022 6:00 PM EDT 01/05/2022 6:00 PM EDT Geraldo Salomon MD POINT OF CARE TEST O RDERAFRANKLIN Performing Organization Address City[facility] Co de Phone Number [facility] [place] [address] * POCT Glucose (01/05/2022 3:53 PM EDT) Pathologist [facility] Glucose, POC 161 65 - 199 mg/dL [facility] Comment: Supplemental ranges: <140 mg/dL before meals <180 mg/dL all other times of the day Blood 01/05/2022 3:53 PM EDT 01/05/2022 3:53 PM EDT Geraldo Salomon MD POINT OF CARE TEST O MUSHTAQ Performing Organization Address City[facility]/ZIP Co de Phone Number [facility] [place] [address] * (ABNORMAL) Differential, Automated (01/05/2022 11:45 AM EDT) [facility] Neutrophil % 65.9 % [facility] Neutrophil Absolute 4.46 1.70 - 6.10 x10(3)/mc L [facility] Lymph % 19.0 % [facility] Lymphocytes Abs 1.3 0.9 - 3.2 x10(3)/mc L [facility] Monocyte % 14.2 % [facility] Monocyte Abs 1.0(H) 0.3 - 0.9 x10(3)/mc L [facility] Eos % 0.1 % [facility] Eosinophils Abs 0.0 0.0 - 0.4 x10(3)/mc L [facility] Basophil % 0.4 % [facility] Baso Absolute 0.0 0.0 - 0.1 x10(3)/mc L [facility] Immature Gran % 0.40 % [facility] Comment: Immature granulocytes(IG's)percentage and absolute count will include metamyelocytes, myelocytes, and promyelocytes. Blood smears from CBCs yielding IG's will be scanned manually for concordance. If this scan disagrees with the automated IG or if promyelocytes are noted, a manual differential will be performed. Immature Gran Absolute 0.03 0.00 - 0.04 x10(3)/mc L [facility] Blood 01/05/2022 11:4 5 AM EDT 01/05/2022 12:08 PM EDT Narrative Resulting Agency Comment Spec In Lab Cam David MD HEMATOLOGY ORDERABLE S [facility] [place] [address] * (ABNORMAL) Hemogram (01/05/2022 11:45 AM EDT) White Blood Cell 6.8 4.0 - 9.5 x10(3)/ L [facility] Red Blood Cell 3.92(L) 4.00 - 5.21 x10(6)/mc L [facility] Hemoglobin 12.5 11.7 - 15.5 g/dL [facility] Hematocrit 36.4 35.7 - 45.8 % [facility] Mean Cell Volume 92.9 82.6 - 94.4 fL [facility] Mean Cell Hemoglobin 31.9 27.1 - 32.0 pg [facility] Mean Cell Hemoglobin Concentration 34.3 31.7 - 35.0 g/dL [facility] Platelet 187 145 - 357 x10(3)/mc L [facility] RDW Standard Deviation 41.9 37.0 - 46.0 fL [facility] RDW coefficient of variation 12.3 11.5 - 14.1 % [facility] Mean Platelet Volume 10.4 7.6 - 12.9 fL [facility] NRBC% auto 0.0 % [facility] NRBC Absolute 0.000 0.000 - 0.000 x10(3)/mc L [facility] Blood 01/05/2022 11:4 5 AM EDT 01/05/2022 12:08 PM EDT Narrative Resulting Agency Comment Spec In Lab Cam David MD HEMATOLOGY ORDERABLE S [facility] [place] [address] * Basic Metabolic Panel (non-fasting) (01/05/2022 11:45 AM EDT) Glucose 140 65 - 199 mg/dL [facility] Comment:Diabetes: >=200 mg/d L plus symptoms Blood Urea Nitrogen 10 8 - 18 mg/dL [facility] Creatinine 0.75 0.70 - 1.20 mg/dL [facility] Sodium 137 135 - 145 mmol/L [facility] Potassium 3.9 3.5 - 5.0 mmol/L [facility] Comment: Please note: ??Patients with WBC >100,000 may have falsely elevated Potassium levels. ??For accurate Potassium quantification in these patients send serum separator tube (gold top) for subsequent determinations. ??Contact the Clinical Chemistry Laboratory if there are any questions. Chloride 101 98 - 107 mmol/L [facility] Carbon Dioxide 25 22 - 31 mmol/L [facility] Anion Gap 11 5 - 15 mmol/L [facility] Calcium 8.6 8.5 - 10.5 mg/dL [facility] Est Glomerular Filtration Rate 95 >=60 mL/min/1. 73 m?? [facility] Comment: This patient? s [...] Salomon MD CHEMISTRY ORDERABLES Performing Organization Address [facility] Co de Phone Number [facility] [place] [address] * POCT Glucose (01/05/2022 11:40 AM EDT) Pathologist [facility] Glucose, POC 148 65 - 199 mg/dL [facility] Comment: Supplemental ranges: <140 mg/dL before meals <180 mg/dL all other times of the day Blood 01/05/2022 11:4 0 AM EDT 01/05/2022 11:40 AM EDT Geraldo Salomon MD POINT OF CARE TEST O RDERABLES Performing Organization Address [facility] Co de Phone Number [facility] [place] [address] * EKG 12 Lead (01/05/2022 8:23 AM EDT) Ventricular rate 78 BPM MUSE SYSTEM Atrial Rate 78 BPM MUSE SYSTEM P-R Interval 132 ms MUSE SYSTEM QRS Duration 106 ms MUSE SYSTEM Q-T Interval 364 ms MUSE SYSTEM QTC Calculated (Bezet) 414 ms MUSE SYSTEM Calculated P [place] 78 degrees MUSE SYSTEM Calculated R [place] -65 degrees MUSE SYSTEM Calculated T [place] -33 degrees MUSE SYSTEM INTERPRETATION Normal sinus rhythm Left axis deviation Incomplete right bundle branch block Cannot rule out Inferior infarct , age undetermined Abnormal ECG When compared with ECG of 04-JAN-2022 00:45, Incomplete right bundle branch block is now Present Minimal criteria for Inferior infarct are now Present Confirmed by Storm Lewis ([id number]) on 01/05/2022 3:44:16 PM MUSE SYSTEM 01/05/2022 8:23 AM EDT 01/05/2022 3:44 PM EDT Geraldo Salomon MD ECG ORDERABLES MUSE SYSTEM * (ABNORMAL) POCT Glucose (01/05/2022 7:43 AM EDT) Glucose, POC 213(H) 65 - 199 mg/dL [facility] Comment: Supplemental ranges: <140 mg/dL before meals <180 mg/dL all other times of the day Blood 01/05/2022 7:43 AM EDT 01/05/2022 7:43 AM EDT Geraldo Salomon MD POINT OF CARE TEST O RDERABLES Performing Organization Address [facility]/ZIP Co de Phone Number [facility] [place] [address] * (ABNORMAL) POCT Glucose (01/05/2022 6:45 AM EDT) Glucose, POC 214(H) 65 - 199 mg/dL [facility] Comment: Supplemental ranges: <140 mg/dL before meals <180 mg/dL all other times of the day Blood 01/05/2022 6:45 AM EDT 01/05/2022 6:45 AM EDT Geraldo Salomon MD POINT OF CARE TEST O RDERAFRANKLIN Performing Organization Address City/[facility]/ZIP Co de Phone Number [facility] [place] [address] * POCT Glucose (01/05/2022 5:31 AM EDT) Glucose, POC 89 65 - 199 mg/dL [facility] Comment: Supplemental ranges: <140 mg/dL before meals <180 mg/dL all other times of the day Blood 01/05/2022 5:31 AM EDT 01/05/2022 5:31 AM EDT Geraldo Salomon MD POINT OF CARE TEST O MUSHTAQ [facility] [place] [address] * (ABNORMAL) POCT Glucose (01/05/2022 5:09 AM EDT) Glucose, POC 59(L) 65 - 199 mg/dL [facility] Comment: Supplemental ranges: <140 mg/dL before meals <180 mg/dL all other times of the day Blood 01/05/2022 5:09 AM EDT 01/05/2022 5:09 AM EDT Geraldo Salomon MD POINT OF CARE TEST O SANDEEPERAFRANKLIN Performing Organization Address [facility]/ZIP Co de Phone Number [facility] [place] [address] * POCT Glucose (01/05/2022 12:45 AM EDT) Glucose, POC 96 65 - 199 mg/dL [facility] Comment: Supplemental ranges: <140 mg/dL before meals <180 mg/dL all other times of the day Blood 01/05/2022 12:4 5 AM EDT 01/05/2022 12:45 AM EDT Geraldo Salomon MD POINT OF CARE TEST O SANDEEPERAFRANKLIN [facility] [place] [address] * POCT Glucose (01/04/2022 7:28 PM EDT) Glucose, POC 104 65 - 199 mg/dL [facility] Comment: Supplemental ranges: <140 mg/dL before meals <180 mg/dL all other times of the day Blood 01/04/2022 7:28 PM EDT 01/04/2022 7:28 PM EDT Geraldo Salomon MD POINT OF CARE TEST O MUSHTAQ Performing Organization Address City/[facility]/ZIP Co de Phone Number [facility] [place] [address] * POCT Glucose (01/04/2022 4:04 PM EDT) Glucose, POC 190 65 - 199 mg/dL [facility] Comment: Supplemental ranges: <140 mg/dL before meals <180 mg/dL all other times of the day Blood 01/04/2022 4:04 PM EDT 01/04/2022 4:04 PM EDT Geraldo Salomon MD POINT OF CARE TEST O MUSHTAQ Performing Organization Address [facility] Co de Phone Number [facility] [place] [address] * POCT Glucose (01/04/2022 12:09 PM EDT) Glucose, POC 157 65 - 199 mg/dL [facility] Comment: Supplemental ranges: <140 mg/dL before meals <180 mg/dL all other times of the day Blood 01/04/2022 12:0 9 PM EDT 01/04/2022 12:09 PM EDT Geraldo Salomon MD POINT OF CARE TEST O MUSHTAQ Performing Organization Address [facility] Co de Phone Number [facility] [place] [address] * ECHO COMPLETE W CONTRAST (01/04/2022 11:08 AM EDT) EF 60 HEARTLAB SYSTEM Anatomical Region Laterality Modality Cardiac Other 01/04/2022 10:3 3 AM EDT Narrative 01/04/2022 11:25 AM EDT ?[facility] ?[address] ? [place] [address] ?Voice: ?Fax: ? Echocardiogram Report Name: SILVER, AFUA A ? Study Date: 01/04/2022 10:33 AM ? Patient Location: CVCC CV19 A : 1975 ? Height: 65 in ? Account: [id number] Age: 46 yrs ? Weight: 148 lb Gender: Female ?BSA: 1.7 m2 Ordering Physician: MOI LEDEZMA Referring Physician: MT VALENZUELA Exam Location: [facility]. Interpretation Summary Technically difficult. Left ventricular systolic [...] jet. There is no valve disease. Procedure Complete-[id number]. Image enhancement Optison was used for left [...] Procedure Note Geraldo Salomon MD - 01/04/2022 [place] [address] Voice: Fax: Echocardiogram Report Name: AFUA ROSALES Study Date: 210:33 AM Patient Location: [address] : 1975 Height: 65 in Account: [id number] Age: 46 yrs Weight: 148 lb Gender: Female BSA: 1.7 m2 Ordering Physician: MOI LEDEZMA Referring Physician: MT VALENZUELA Exam Location: [facility]. Interpretation Summary Technically difficult. Left ventricular systolic [...] jet. There is no valve disease. Procedure Complete-[id number]. Image enhancement Optison was used for left [...] Glucose, POC 100 65 - 199 mg/dL [facility] Comment: Supplemental ranges: <140 mg/dL before meals <180 mg/dL all other times of the day Blood 01/04/2022 10:0 5 AM EDT 01/04/2022 10:05 AM EDT Geraldo Salomon MD POINT OF CARE TEST O RDERAFRANKLIN [facility] [place] [address] * POCT Glucose (01/04/2022 8:23 AM EDT) Glucose, POC 72 65 - 199 mg/dL [facility] Comment: Supplemental ranges: <140 mg/dL before meals <180 mg/dL all other times of the day Blood 01/04/2022 8:23 AM EDT 01/04/2022 8:23 AM EDT Moi Ledezma MD POINT OF CARE TEST O RDERAFRANKLIN Performing Organization Address [facility]/ZIP Co de Phone Number [facility] [place] [address] * POCT Glucose (01/04/2022 5:03 AM EDT) Glucose, POC 143 65 - 199 mg/dL [facility] Comment: Supplemental ranges: <140 mg/dL before meals <180 mg/dL all other times of the day Blood 01/04/2022 5:03 AM EDT 01/04/2022 5:03 AM EDT Moi Ledezma MD POINT OF CARE TEST O RDERABLES [facility] [place] [address] * POCT Glucose (01/04/2022 3:01 AM EDT) Glucose, POC 182 65 - 199 mg/dL [facility] Comment: Supplemental ranges: <140 mg/dL before meals <180 mg/dL all other times of the day Blood 01/04/2022 3:01 AM EDT 01/04/2022 3:01 AM EDT Moi Ledezma MD POINT OF CARE TEST O RDERABLES [facility] [place] [address] * (ABNORMAL) BLOOD GAS 2 VENOUS (01/04/2022 1:44 AM EDT) pH, Venous 7.33 7.32 - 7.42 [facility] PCO2, Venous 45 41 - 51 mmHg [facility] PO2, Venous 52(H) 25 - 40 mmHg [facility] Bicarbonate, Venous 23.5 mmol/L [facility] Base Excess, Venous -2.7 mmol/L [facility] Hgb Blood Gas 13.1 11.7 - 15.5 g/dL [facility] Oxyhemoglobin, Venous 86.6 % [facility] Carboxyhemoglob in, Venous 0.3 % [facility] Comment: Nonsmokers: 0.5-1.5% COHB Smokers: Variable, but usually less than 10% Toxic: 20-30% COHB Lethal: Greater than 60% COHB Methemoglobin, Venous 0.8 <=1.5 % [facility] Na Whole Blood 134(L) 135 - 145 mmol/L [facility] K Whole Blood 4.1 3.5 - 5.0 mmol/L [facility] Comment: Please note: Patients with WBC >100,000 may have falsely elevated Potassium levels. Contact the Clinical Chemistry Laboratory if there are any questions. ICa Whole Blood 1.21 1.15 - 1.33 mmol/L [facility] Comment: Note: ??Total bilirubin higher than 20 mg/dL may lead to falsely low ionized calcium. CL Whole Blood 104 98 - 107 mmol/L [facility] Gluc Whole Bld 215(H) 65 - 199 mg/dL [facility] Comment:Diabetes: >=200 mg/d L plus symptoms Lactate WB 0.8 0.5 - 2.2 mmol/L [facility] Fraction of Inspired Oxygen, Venous 21 % [facility] Blood Gas Source Venous [facility] Temperature, Venous 35.8 Celsius [facility] Blood 01/04/2022 1:44 AM EDT 01/04/2022 1:44 AM EDT Moi Ledezma MD POINT OF CARE TEST O RDERABLES Performing Organization Address City/State/[facility] Co de Phone Number [facility] [place] [address] * (ABNORMAL) Differential, Automated (01/04/2022 12:50 AM EDT) Neutrophil % 86.1 % [facility] Neutrophil Absolute 5.92 1.70 - 6.10 x10(3)/mc L [facility] Lymph % 9.6 % [facility] Lymphocytes Abs 0.7(L) 0.9 - 3.2 x10(3)/mc L [facility] Monocyte % 3.6 % [facility] Monocyte Abs 0.2(L) 0.3 - 0.9 x10(3)/mc L [facility] Eos % 0.1 % [facility] Eosinophils Abs 0.0 0.0 - 0.4 x10(3)/mc L [facility] Basophil % 0.3 % [facility] Baso Absolute 0.0 0.0 - 0.1 x10(3)/mc L [facility] Immature Gran % 0.30 [...] Absolute 0.02 0.00 - 0.04 x10(3)/mc L [facility] Blood 01/04/2022 12:5 0 AM EDT 01/04/2022 1:24 AM EDT Narrative Resulting Agency Comment Spec In Lab Sumanth Barnard MD HEMATOLOGY ORDERABL ES [facility] [place] [address] * (ABNORMAL) Hemogram (01/04/2022 12:50 AM EDT) White Blood Cell 6.9 4.0 - 9.5 x10(3)/mc L [facility] Red Blood Cell 3.77(L) 4.00 - 5.21 x10(6)/mc L [facility] Hemoglobin 11.9 11.7 - 15.5 g/dL [facility] Hematocrit 34.4(L) 35.7 - 45.8 % [facility] Mean Cell Volume 91.2 82.6 - 94.4 fL [facility] Mean Cell Hemoglobin 31.6 27.1 - 32.0 pg [facility] Mean Cell Hemoglobin Concentration 34.6 31.7 - 35.0 g/dL [facility] Platelet 197 145 - 357 x10(3)/mc L [facility] RDW Standard Deviation 40.7 37.0 - 46.0 fL [facility] RDW coefficient of variation 12.1 11.5 - 14.1 % [facility] Mean Platelet Volume 10.4 7.6 - 12.9 fL [facility] NRBC% auto 0.0 % [facility] NRBC Absolute 0.000 0.000 - 0.000 x10(3)/mc L [facility] Blood 01/04/2022 12:5 0 AM EDT 01/04/2022 1:24 AM EDT Narrative Resulting Agency Comment Spec In Lab Sumanth Barnard MD HEMATOLOGY ORDERABL ES Performing Organization Address [facility] Co de Phone Number [facility] [address] * (ABNORMAL) Beta Hydroxybutyrate (01/04/2022 12:50 AM EDT) Beta-hydroxybu turate 0.95(H) 0.00 - 0.30 mmol/L [facility] Comment: Reference range: ??0.00-0.30 mmol/L, based on an overnight fast. ??Children may be higher. Blood 01/04/2022 12:5 0 AM EDT 01/04/2022 1:24 AM EDT Narrative Resulting Agency Comment Spec In Lab Moi Ledezma MD CHEMISTRY ORDERABLES Performing Organization Address [facility] [[email or web address]] de Phone Number [facility] [address] * (ABNORMAL) Hemoglobin A1c (01/04/2022 12:50 AM EDT) Hemoglobin A1c 8.0(H) 4.3 - 5.6 % [facility] [...] Mellitus, Diabetes Care 2013; 36: Suppl. 1, Q66-89 Estimated Average Glucose 183 mg/dL [facility] Comment: eAG [...] into estimated average glucose values. ??Diabetes Care 2008:31(8):7649-1665. Blood 01/04/2022 12:5 0 AM EDT 01/04/2022 1:24 AM EDT Narrative Resulting Agency Comment Spec In Lab Moi Ledezma MD CHEMISTRY ORDERABLES Performing Organization Address City/State/[facility] Co de Phone Number [facility] [place] [address] * (ABNORMAL) Troponin (01/04/2022 12:50 AM EDT) Troponin-T 0.24(H) 0.00 - 0.00 ng/mL [facility] Comment: The 99th percentile for Troponin T is less than 0.01 ng/mL, any detectable cTnT concentration using this assay should be considered elevated. According to the third universal definition of myocardial infarction the following criteria with a clinical presentation consistent with acute myocardial ischemia meets the diagnosis for a myocardial infarction (PR). Detection of a rise and/or fall of cTnT, with at least one value greater than the 99th percentile (> or = 0.01) and with at least one of the following ?? Symptoms of ischemia ?? New or presumed new significant TF-ujltslt-Z wave (ST-T) changes or new left bundle [...] additional sample may be indicated. Reference: Third [place] Definition of Myocardial Infarction. Journal of the [place] College [employer] 2012;60:1581-98 Blood 01/04/2022 12:5 0 AM EDT 01/04/2022 1:24 AM EDT Narrative Resulting Agency Comment Spec In Lab Moi Ledezma MD CHEMISTRY ORDERABLES Performing Organization Address [facility] Co de Phone Number [facility] [place] [address] * pro-Brain Natriuretic Peptide (01/04/2022 12:50 AM EDT) NT-proBNP 56 <=124 pg/mL [facility] Blood 01/04/2022 12:5 0 AM EDT 01/04/2022 1:24 AM EDT Narrative Resulting Agency Comment Spec In Lab Moi Ledezma MD CHEMISTRY ORDERABLES Performing Organization Address [facility]/ZIP Co de Phone Number [facility] [place] [address] * LDL Cholesterol, Direct (01/04/2022 12:50 AM EDT) LDL Cholesterol, Direct 66 mg/dL [facility] Comment: Lowest Risk: <100 mg/dL Lower Risk: 100-129 mg/dL Borderline High Risk: 130-159 mg/dL High Risk: 160-189 mg/dL Very High Risk: >rh=158 mg/dL Blood 01/04/2022 12:5 0 AM EDT 01/04/2022 1:24 AM EDT Narrative Resulting Agency Comment Spec In Lab Moi Ledezma MD CHEMISTRY ORDERABLES [facility] [place] [address] * HDL/Cholesterol Profile (01/04/2022 12:50 AM EDT) Cholesterol, Total 136 mg/dL [facility] Comment: Lower Risk: <200 mg/dL Average Risk: 200-239 mg/dL Higher Risk: >fq=789 mg/dL HDL Cholesterol 63 mg/dL [facility] Comment: Males: ?? Higher Risk: <40 mg/dL Females: ?? Higher Risk: <50 mg/dL Cholesterol/HDL Ratio 2.2 ratio [facility] Chol/HDL Interpretation See Note [facility] Comment: Lipid management should be guided by a patient? s ASCVD risk, goals and preferences. ACC/AHA Guidelines recommend high intensity statin if clinical ASCVD or LDL greater than or equal to 190 mg/dL. http://[employer]com/CXJ-UJF-Qjopqdbke Measure LDL if Total Cholesterol minus HDL Cholesterol is greater than 220 mg/dL. Adults aged 40-75 with LDL 70-189 mg/dL should have their 10 year ASCVD risk estimated with the ACC/AHA ASCVD risk mechanical estimator http://tools.acc.org/AXSHG-Pllx-Pomwmhokr/ Statin should be discussed if risk greater [...] Ledezma MD CHEMISTRY ORDERABLES Performing Organization Address [facility] [[email or web address]] de Phone Number [facility] [place] [address] * TSH (01/04/2022 12:50 AM EDT) Thyroid Stimulating Hormone 0.75 0.27 - 4.20 mcIU/mL [facility] Comment: Reference Interval (mcIU/mL): Females: ??First Trimester: 0.23-3.88 ??Second Trimester: 0.22-3.90 ??Third Trimester: 0.44-4.66 Blood 01/04/2022 12:5 0 AM EDT 01/04/2022 1:24 AM EDT Narrative Resulting Agency Comment Spec In Lab Moi Ledezma MD CHEMISTRY ORDERABLES Performing Organization Address [facility] de Phone Number [facility] [place] [address] * Phosphorus (01/04/2022 12:50 AM EDT) Phosphorus 2.7 2.5 - 4.5 mg/dL [facility] Blood 01/04/2022 12:5 0 AM EDT 01/04/2022 1:24 AM EDT Narrative Resulting Agency Comment Spec In Lab Moi Ledezma MD CHEMISTRY ORDERABLES Performing Organization Address [facility] Co de Phone Number [facility] [place] [address] * Magnesium (01/04/2022 12:50 AM EDT) Magnesium 0.84 0.69 - 1.07 mmol/L [facility] Blood 01/04/2022 12:5 0 AM EDT 01/04/2022 1:24 AM EDT Narrative Resulting Agency Comment Spec In Lab Moi Ledezma MD CHEMISTRY ORDERABLES Performing Organization Address City/[facility]/ZIP Co de Phone Number [facility] [place] [address] * (ABNORMAL) Basic Metabolic Panel (non-fasting) (01/04/2022 12:50 AM EDT) Glucose 224(H) 65 - 199 mg/dL [facility] Comment:Diabetes: >=200 mg/d L plus symptoms Blood Urea Nitrogen 11 8 - 18 mg/dL [facility] Creatinine 0.62(L) 0.70 - 1.20 mg/dL [facility] Sodium 137 135 - 145 mmol/L [facility] Potassium 4.1 3.5 - 5.0 mmol/L [facility] Comment: Please note: ??Patients with WBC >100,000 may have falsely elevated Potassium levels. ??For accurate Potassium quantification in these patients send serum separator tube (gold top) for subsequent determinations. ??Contact the Clinical Chemistry Laboratory if there are any questions. Chloride 105 98 - 107 mmol/L [facility] Carbon Dioxide 22 22 - 31 mmol/L [facility] Anion Gap 10 5 - 15 mmol/L [facility] Calcium 8.5 8.5 - 10.5 mg/dL [facility] Est Glomerular Filtration Rate 107 >=60 mL/min/1. 73 m?? [facility] Comment: This patient? s [...] In Lab Moi Ledezma MD CHEMISTRY ORDERABLES [facility] [place] [address] * COVID-19 PCR (01/04/2022 12:50 AM EDT) SARS-CoV-2 RNA (Rapid) Not Detected Not Detected [facility] Comment: This result should [...] using the Simplexa COVID-19 Direct Assay by [employer] as authorized by the FDA issued Emergency [...] Department of Pathology and Laboratory Medicine at [facility], certified under the Clinical Laboratory Improvement Amendments [...] fact sheets at the following FDA website: https://www.fda.gov/medical-devices/bdxalgkymnn-sbkieit-9644-tdzqx-76-iyyeapfrn- use-a zseybaskxshsz-jkfzrke-gfawqrk/wvhhg-kcrdgjbbwdv-bjxw SARS-CoV-2 Source BED PLACEMENT COORDINATOR Swab MA [facility] Nasopharyngeal Swab 01/05/20 12:50 AM EDT 01/04/2022 1:48 AM EDT Comment:Symptoms->Surveillan ce Narrative Resulting Agency Comment Spec In Lab Moi Ledezma MD MICROBIOLOGY - GENER AL ORDERABLES Performing Organization Address City/[facility]/ZIP Co de Phone Number [facility] [address] * EKG 12 Lead (01/04/2022 12:45 AM EDT) Ventricular rate 94 BPM MUSE SYSTEM Atrial Rate 94 BPM MUSE SYSTEM P-R Interval 140 ms MUSE SYSTEM QRS Duration 92 ms MUSE SYSTEM Q-T Interval 370 ms MUSE SYSTEM QTC Calculated (Bezet) 462 ms MUSE SYSTEM Calculated P [place] 69 degrees MUSE SYSTEM Calculated R [place] 2 degrees MUSE SYSTEM Calculated T [place] 89 degrees MUSE SYSTEM INTERPRETATION Normal sinus rhythm Low voltage QRS Nonspecific ST and T wave abnormality Abnormal ECG When compared with ECG of 13-NOV-1999 14:45, ST now depressed in Anterior leads Nonspecific T wave abnormality now evident in Lateral leads Confirmed by MD Umm, Geraldo Espinoza ([id number]) on 01/04/2022 1:03:04 PM MUSE SYSTEM 01/04/2022 12:4 5 AM EDT 01/04/2022 1:03 PM EDT Moi Ledezma MD ECG ORDERABLES MUSE SYSTEM * POCT Glucose (01/04/2022 12:07 AM EDT) Glucose, POC 126 65 - 199 mg/dL [facility] Comment: Supplemental ranges: <140 mg/dL before meals <180 mg/dL all other times of the day Blood 01/04/2022 12:0 7 AM EDT 01/04/2022 12:07 AM EDT Moi Ledezma MD POINT OF CARE TEST O RDERABLES [facility] [place] [address] * CARDIAC CATHETERIZATION (01/03/2022 11:45 PM EDT) Anatomical Region Laterality Modality Other Narrative 01/03/2022 11:54 PM EDT ?[facility] ? Cardiac Catheterization/Intervention Report ? Patient Name: Afua Rosales. ? Procedure Date: 01/03/2022 ? A #: [id number] ? Primary Physician: Moi Ledezma ? Case #: [id number] ? File Name: [id number] ? Catheterization Order Number: [id number] ? [facility] ? Final Report [place], [place] ? Patient Name: ? Afua A. Silver ?ID#: ?[id number] ? : ?1975 ? Procedure Date: ? [...] was ?designated as ASA Class IV. The [facility] clinical frailty scale is 5: Mildly ?Frail. ? Diagnostic Tests: ?Electrocardiography: ? EKG was assessed by ECG. EKG was Abnormal. EKG showed ST Deviation ? >= 0.5 mm and other abnormality. ?Medications Prior to Procedure: ? Aspirin, Statin and Thrombolytic (any). ? Indications for Diagnostic Cath: ?The priority of the diagnostic procedure was Emergent. The indication for ?the component lab tech visit is ACS less than or equal [...] ?SH guiding catheter and a 3.5 Fr [place] [facility] [address] ??20 Mhz. ??Imaging ?was successful. ??Image quality was excellent. ??The mid RCA showed severe ?diffuse atherosclerotic plaque. ??Measurements were performed after ?pre-dilation. ?Post Intervention: The stent was well expanded and apposed. ?Intravascular Ultrasound was performed in the distal RCA using a 6 Fr JR ?4 SH guiding catheter and a 3.5 Fr [place] [facility] ??20 Mhz. ?Imaging was successful. ??Image [...] dose administered prior to arrival in the component lab tech. ?Recommended anti-platelet/anti-thrombotic regimen: ?Start aspirin 81 mg daily now and continue for indefinitely. ?Start clopidogrel 75 mg daily now and continue for 12 months then stop. ?These recommendations are made at the time of the intervention. Patient ?and provider preferences or a changing clinical situation may require ?modification of this regimen. Consult [facility] Interventional [facility] for ?questions. ?The 1 year [...] against any medical treatment. Consult ?http://tools.acc.org/DAPTriskapp/#!/content/calculator/ or [facility] ?Interventional Cardiology for questions ? Conclusions: ?* [...] Moi Ledezma MD - 01/14/2022 [facility] Cardiac Catheterization/Intervention Report Patient Name: Afua Rosales Procedure Date: 01/03/2022 A #: [id number] Primary Physician: Moi Ledezma Case #: [id number] File Name: [id number] Catheterization Order Number: [id number] [facility] FinalReport [place], [place] Patient Name: Afua Rosales ID#:[id number] :1975 Procedure Date: January 03, 2022 Case [...] patientwas designated as ASA Class IV. The [facility] clinical frailty scale is 5:Mildly Frail. Diagnostic Tests: Electrocardiography: EKG was assessed by ECG. EKG was Abnormal. EKG showed STDeviation >= 0.5 mm and other abnormality. Medications Prior to Procedure: Aspirin, Statin and Thrombolytic (any). Indications for Diagnostic Cath: The priority of the diagnostic procedure was Emergent. Theindication for the component lab tech visit is ACS less than or equal [...] SH guiding catheter and a 3.5 Fr [place] [facility] [address] 20 Mhz.Imaging was successful. Image quality was excellent. The mid RCA showedsevere diffuse atherosclerotic plaque. Measurements were performed after pre-dilation. Post Intervention: The stent was well expanded and apposed. Intravascular Ultrasound was performed in the distal RCA using a 6Fr JR 4 SH guiding catheter and a 3.5 Fr [place] [facility] 20 Mhz. Imaging was successful. Image quality was excellent. The distalRCA showed severe diffuse atherosclerotic plaque. Measurements were performed after pre-dilation. Post Intervention: The stent was well expanded and apposed. Indication for Intervention: Coronary intervention was indicated for primary therapy for an acute myocardial infarction. The priority for the procedure was Emergent.The [facility] indication for the procedure was STEMI (after [...] The lesion was predilated with a 2.00mm [id number] MM balloon with a maximum inflation pressure [...] dose administered prior to arrival in the component lab tech. Recommended anti-platelet/anti-thrombotic regimen: Start aspirin 81 mg daily now and continue for indefinitely. Start clopidogrel 75 mg daily now and continue for 12 months thenstop. These recommendations are made at the time of the intervention.Patient and provider preferences or a changing clinical situation mayrequire modification of this regimen. Consult [facility] Interventional Cardiologyfor questions. The 1 year bleeding [...] or against any medical treatment.Consult http://tools.acc.org/DAPTriskapp/#!/content/calculator/ or [facility] Interventional [facility]iology for questions Conclusions: * Two [...] Glucose, POC 200(H) 65 - 199 mg/dL [facility] Comment: Supplemental ranges: <140 mg/dL before meals <180 mg/dL all other times of the day Blood 01/03/2022 11:3 1 PM EDT 01/03/2022 11:31 PM EDT Moi Ledezma MD POINT OF CARE TEST O RDERABLES [facility] [place] [address] * (ABNORMAL) POCT Glucose (01/03/2022 10:56 PM EDT) Glucose, POC 265(H) 65 - 199 mg/dL [facility] Comment: Supplemental ranges: <140 mg/dL before meals <180 mg/dL all other times of the day Blood 01/03/2022 10:5 6 PM EDT 01/03/2022 10:56 PM EDT Moi Ledezma MD POINT OF CARE TEST O RDERABLES [facility] [place] [address] * (ABNORMAL) Point of Care Blood Gas Historical (01/03/2022 10:38 PM EDT) pH, POC 7.35 7.35 - 7.45 [facility] pCO2, POC 46(H) 35 - 45 mmHg [facility] pO2, POC 93 85 - 104 mmHg [facility] Base Excess, POC 0.0 -3.0 - 3.0 mmol/L [facility] Bicarbonate, POC 25.3 20.0 - 26.0 mmol/L [facility] Sodium, POC 141 135 - 145 mmol/L [facility] POC Potassium 3.7 3.5 - 5.0 mmol/L [facility] Ionized Calcium, POC 1.26 1.15 - 1.33 mmol/L [facility] POC Hematocrit 35.0 34.0 - 45.0 % [facility] POC Calc Hgb 11.9 11.2 - 15.7 g/dL [facility] Comment:The calculation of h emoglobin from hematocrit assumes a normal MCHC. POC Bgas Loc CC LAB [facility] Blood 01/03/2022 10:3 8 PM EDT 01/09/2022 12:00 PM EDT Geraldo Salomon MD CHEMISTRY ORDERABLES [facility] [place] [address] * (ABNORMAL) POCT Glucose (01/03/2022 10:37 PM EDT) Glucose, POC 63(L) 65 - 199 mg/dL [facility] Comment: Supplemental ranges: <140 mg/dL before meals <180 mg/dL all other times of the day Blood 01/03/2022 10:3 7 PM EDT 01/03/2022 10:37 PM EDT Moi Ledezma MD POINT OF CARE [place] [address] documented in this encounter Visit Diagnoses Diagnosis [...] Routine documented in this encounter Care Teams Automobile Mechanic Relationship Specialty Start Date End Date Felisha Juan, CERTIFIED LACTATION COUNSELOR [address] [place] [address] PCP - General Family Medicine 10/29/15 01/29/22 documented as of this encounter
--- OUTSIDE RECORDS SUMMARY | 2024-04-29 00:49 | XMS_ITS | Encounter Summary ---
Author Organization [facility] Address [facility] [place] [address] Care Team Providers Care Fractionation Plant Supervisor Name Role Phone Yessica Felisha STICK ROLLER Primary Care Provider Encounter Details Date Type Department Care Team (Late st Contact Info) Description 01/03/2022 External [place] [address] Social History Tobacco Use Types Packs/Day Years [...] on filedocumented in this encounter Care Teams Fractionation Plant Supervisor Relationship Specialty Start Date End Date Felisha Juan APRN [address] [place] [address] PCP - General Family Medicine 10/29/15 01/29/22 documented as of this encounter
--- OUTSIDE RECORDS SUMMARY | 2024-04-29 00:49 | XMS_ITS | Encounter Summary ---
Author Organization [facility] Address [facility] [place] [address] Care Team Providers Care Projection Welding Machine Operator Name Role Phone Felisha Juan APRN Primary Care Provider [phone] Reason for Visit * Reason Onset Date Comments Medication Refill 10/09/2020 Encounter Details Date Type Department Care Team (Late st Contact Info) Description 10/09/2020 [place] [address] Breana Tee MD [facility] [place] [address] Controlled type 1 diabetes mellitus with retinopathy [...] 8:24 AM EST Script needs to go [place] [address] [facility] Office [address] [place] [address] Patient test 6 times daily Transfer from previous [facility] Provider documented in this encounter Plan of Treatment Not on file documented as of this encounter Visit Diagnoses Diagnosis 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
--- OUTSIDE RECORDS SUMMARY | 2024-04-29 00:49 | XMS_ITS | Encounter Summary ---
Author Organization [facility] [place] [address] Care Team Providers Care Bladder Trimmer Name Role Phone Yessica Felisha FAMILY LAWYER Primary Care Provider + [phone] Reason for Visit * Reason Onset Date Comments Medication Refill 03/03/2019 Encounter Details Date Type Department Care Team (Late st Contact Info) Description 03/03/2019 Refill [place] [address] Francoise Tan FAMILY LAWYER [facility] [place] [address] Diabetes mellitus without complication Social History Tobacco [...] uncontrolled documented in this encounter Care Teams Bladder Trimmer Relationship Specialty Start Date End Date Felisha Juan APRN [address] [place] [address] PCP - General Family Medicine 10/29/15 01/29/22 documented as of this encounter
--- OUTSIDE RECORDS SUMMARY | 2024-04-29 00:49 | XMS_ITS | Encounter Summary ---
Author Organization Replaced By [facility] Address [facility] [place] [address] Care Team Providers Care Junior Account Executive Name Role Phone Felisha Juan APRN Primary Care Provider Encounter Details Date Type Department Care Team (Late st Contact Info) Description 03/03/2016 Orders Only [place] [address] Rosie Tao MD [facility] [place] [address] Diabetes mellitus without complication Social History Tobacco [...] uncontrolled documented in this encounter Care Teams Junior Account Executive Relationship Specialty Start Date End Date Felisha Juan APRN [address] [place] [address] PCP - General Family Medicine 10/29/15 01/29/22 documented as of this encounter
--- OUTSIDE RECORDS SUMMARY | 2024-04-29 00:49 | XMS_ITS | Encounter Summary ---
Author Organization [facility]ly [facility] Address [facility] [place] [address] Care Team Providers Care Geodetic Survey Director Name Role Phone Felisha Juan APRN Primary Care Provider + [phone] Reason for Visit * Reason Comments Diabetes Encounter Details Date Type Department Care Team ([facility] Contact Info) Description 08/22/2016 10:00 AM EST Office [place] [address] Rosie Diamond MD [facility] [place] [address] Pre-existing type 1 diabetes mellitus in childbirth [...] day to have your insulin doses adjusted. [facility] Endocrine clinic office documented in this encounter [...] and polydypsia. She was followed by an business support manager- Dr Hernandez in [place], [place]. She is here for establishment of care since she has moved to [facility]. 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 Monitoring - continue BG tid ac & hs Diet - low fat/low carb diet Exercise - weight-bearing exercise 30 min/day, as tolerated Thank you for the consult D/w Dr nAn, this was a resident only encounter Rosie Diamond MD Endocrine Fellow Pager- [phone] Insulin Discharge Instructions . Instructions for Lantus [...] juice or regular (not diet) soda 6 [employer] small box of raisins 4 glucose tablets [...] day to have your insulin doses adjusted. [facility] Endocrine clinic office * Carlos Ann MD [...] delivery documented in this encounter Care Teams Geodetic Survey Director Relationship Specialty Start Date End Date Felisha Juan APRN [address] [place] [address] PCP - General Family Medicine 10/29/15 01/29/22 documented as of this encounter
--- OUTSIDE RECORDS SUMMARY | 2024-04-29 00:49 | XMS_ITS | Encounter Summary ---
Author Organization [facility] [place] [address] Care Team Providers Care Director Of Dance Name Role Phone Yessica Felisha STALLION MANAGER Primary Care Provider [phone] Encounter Details Date Type Department Care Team (Late st Contact Info) Description 08/17/2017 Notes Only Endocrinology at [facility] [place] [address] Huong Ovalle, RN Social History Tobacco Use [...] in this encounter Care Teams Director Of Dance Relationship Specialty Start Date End Date Felisha Juan APRN [address] [place] [address] PCP - General Family Medicine 10/29/15 01/29/22 documented as of this encounter
--- OUTSIDE RECORDS SUMMARY | 2024-04-29 00:49 | XMS_ITS | Encounter Summary ---
Author Organization [facility] Address [facility] [place] [address] Care Team Providers Care Nutrition Club Ambassador Name Role Phone Felisha Juan APRN Primary Care Provider + [phone] Encounter Details Date Type Department Care Team ([facility] st Contact Info) Description 11/13/2020 1:00 PM EDT Office Visit [place] [address] Breana Tee MD [facility] [place] [address] Controlled type 1 diabetes mellitus with retinopathy [...] 1:00 PM EDT Diabetes Follow-up Patient Evaluation [facility] Name: Kailey Hernandez Date: 11/13/20 CC: Diabetes management HPI: Kailey Hernandez is a 45 y.o.female with PMH significant for DM1 c/b b/l retinopathy and blindness who comes to the clinic for management of diabetes. Ms. Hernandez is doing well with no acute concerns about her DM management. Initially during the visit, she stated that she received a letter from [facility] that stated she can no longer [...] snacks/day * Breakfast: PB sandwich * Lunch: [place]? steak on a burger bun * Dinner: Part of a subway sandwich * Snacks: Crackers, cheese * Desserts: No * Drinks: No 2019QI Exercise: Predominantly walking Prevention: Statin: Pravastatin 20 mg (no hx of intolerance) NATE/ARB: None Support and Resources: - Visit with crystallography teacher in the last 2 years: No ROS: [...] them as documented. Olegario Wright DO, MS Chicken Bonerlead software developer Section of Endocrinology 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
--- OUTSIDE RECORDS SUMMARY | 2024-04-29 00:49 | XMS_ITS | Encounter Summary ---
Author Organization [facility] [place] [address] Care Team Providers Care Lode Miner Blasting Name Role Phone Felisha Juan APRN Primary Care Provider Encounter Details Date Type Department Care Team (Late st Contact Info) Description 11/12/2017 Telephone Endocrinology at [facility] [place] [address] Danielle Trejo, GUSTAVO Social History Tobacco Use [...] nurse. Boyfriend wants patient's Novolog ref[place] [facility] than [facility]. documented in this encounter Plan of Treatment Not on file documented as of this encounter Visit Diagnoses Not on filedocumented in this encounter Care Teams Lode Miner Blasting Relationship Specialty Start Date End Date Felisha Juan APRN [address] [place] [address] PCP - General Family Medicine 10/29/15 01/29/22 documented as of this encounter
--- OUTSIDE RECORDS SUMMARY | 2024-04-29 00:49 | XMS_ITS | Encounter Summary ---
Author Organization [facility] [place] [address] Care Team Providers Care State Game Warden Name Role Phone Yessica Felisha WILLSON Primary Care Provider [phone] Encounter Details Date Type Department Care Team (Late st Contact Info) Description 11/23/2020 Notes Only [facility] [place] [address] Micki Leone, BARREL COOPER Social History Tobacco Use Types Packs/Day Years Used Date Smoking Tobacco: Never Smokeless Tobacco: Never Sex and Gender Information Value Date Recorded Sex Assigned at Not on file Gender Identity Not on file Sexual Orientation Not on file documented as of this encounter Progress Notes * Micki Leone RMA - 11/23/2020 1:18 PM EDT [facility] for Diabetic Supplies faxed to [facility]. Confirmation received. documented in this encounter Plan of Treatment Not on file documented as of this encounter Visit Diagnoses Not on filedocumented in this encounter Care Teams State Game Warden Relationship Specialty Start Date End Date Felisha Juan APRN [address] [place] [address] PCP - General Family Medicine 10/29/15 01/29/22 documented as of this encounter
--- OUTSIDE RECORDS SUMMARY | 2024-04-29 00:49 | XMS_ITS | Encounter Summary ---
Author Organization [facility] Address [facility] [place] [address] Care Team Providers Care Brush Holder Assembler Name Role Phone Felisha Juan APRN Primary Care Provider + [phone] Reason for Visit * Reason Comments Diabetes * Consultation (Routine) - Closed Specialty Diagnoses / Procedures Referred By Contdelmi t Referred To Contact Endocrinology Diagnoses Diabetes Mellitus Type 1, uncontrolled w/ Ophthalmic comps Felisha Juan APRN [address] [place] [address] [facility] Endocrinology [address] [place] [phone] Referral ID Status Reason Start Date Expiration Date V isits Requested Visits Authorized [id number] Closed Consult, Test & Treat Connection [facility] 10/29/2015 10/28/2016 1 1 Encounter Details Date Type Department Care Team (Late st Contact Info) Description 12/11/2015 9:30 AM EDT Office [place] [address] Olegario Wright DO [facility] [place] [address] Rosie Tao MD [facility] [place] [address] Type 1 diabetes mellitus with [...] day to have your insulin doses adjusted. [facility] Endocrine clinic office documented in this encounter Progress Notes * Olegario Wright DO - 12/18/2015 3:49 PM EDT I have seen the patient and reviewed Dr Tao's history and I agree with the details as written. The assessment and plan were formulated in discussion with me and I agree with them as documented. Olegario Wright DO, MS Staff Cutter V [employer] * Rosie Tao MD - 12/10/2015 1:32 PM EDT Diabetes Outpatient Consult Date of Consultation: 12/10/2015 Consult Requested by: Dr. Juan Reason for Consultation: Kailey Hernandez is a 40 y.o. years old female with PMH significant for DM .We are being consulted to assist with diabetes management and to provide a review of ocean transportation intermediary diabetes care. Diabetes History: Kailey Hernandez has had diabetes Type 1 since age 7 years. When initially diagnosed, she was extremely fatigued, had polyuria, weight loss, and polydypsia. She was followed by an director of operations home health- Dr Hernandez in [place], [place]. She is here for establishment of care since she has moved to [facility]. 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 Monitoring - continue BG tid ac & hs Diet - low fat/low carb diet Exercise - weight-bearing exercise 30 min/day, as tolerated Thank you for the consult D/w Dr Adriana Tao MD Endocrine Fellow Pager- [phone] Insulin Discharge Instructions . Instructions for Lantus [...] day to have your insulin doses adjusted. [facility] Endocrine clinic office documented in this encounter Plan of Treatment Not on file documented as of this encounter Results * Microalbumin, urine, random (08/22/2016 9:06 AM EST) Pathologist [facility] Albumin / Creatinin Ratio, Urine 17 0 - 29 mcg/mg Cr [facility] Comment: Reference Ranges: <30 mcg/mg: [...] 2, 357? 362 Albumin, Urine 12.4 mg/L [facility] Creatinine, Urine 75 mg/dL [facility] Urine specimen (specimen) 08/22/2016 9:06 AM EST 08/22/2016 9:20 AM EST Narrative Resulting Agency Comment Spec In Lab Olegario Wright DO URINE ORDERABLES [facility] [place] [address] * Lipid panel (fasting) (08/22/2016 8:51 AM EST) Cholesterol, Total 129 <=239 mg/dL [facility] Triglyceride 56 <=199 mg/dL [facility] HDL Cholesterol 55 >=40 mg/dL [facility] LDL Cholesterol 63 <=190 mg/dL [facility] Cholesterol/HDL Ratio 2.3 ratio [facility] Lipid Interpretation See Note [facility] Comment: Lipid management should be guided by a patient? s ASCVD risk, goals and preferences. ACC/AHA Guidelines recommend high intensity statin if clinical ASCVD or LDL greater than or equal to 190 mg/dL. http://circ.ahajournals.org/content/early/.cir.7418852550.13630.7a Adults aged 40-75 with LDL 70-189 mg/dL should have their 10 year ASCVD risk estimated with the ACC/AHA ASCVD risk beater operator http://tools.acc.org/RHQTO-Rbgd-Qbhubblls/ Statin should be discussed if risk greater [...] In Lab Olegario Wright DO CHEMISTRY ORDERABLES [facility] [place] [address] * (ABNORMAL) Hemoglobin A1c (08/22/2016 8:51 AM EST) Hemoglobin A1c 7.4(H) 4.3 - 5.6 % [facility] Comment: Reference Range: 4.3 - [...] Mellitus, Diabetes Care 2013; 36: Suppl. 1, E77-48 Estimated Average Glucose 166 mg/dL [facility] Comment: eAG equivalents for HbA1c percentages: HbA1c(%) ?eAG(mg/dL) 6.0 ?126 6.5 ?140 7.0 ?154 7.5 ?169 8.0 ?183 8.5 ?197 9.0 ?212 9.5 ?226 10.0 ? 240 Limitations: The eAG calculation has not been validated on women, individuals below 18 years old and above 70 years old, and individuals with hemoglobinopathies. Additional resources are available on the ADA website: http://Peregr[employer]s.ConteXtream/DHMCadacalc Tj JESSICA, Mal J, Bk R, et al. ??Translating the A1C assay into estimated average glucose values. ??Diabetes Care 2008:31(8):3677-2445. Blood specimen (specimen) 08/22/2016 8:51 AM EST 08/22/2016 8:58 AM EST Narrative Resulting Agency Comment Spec In Lab Olegario Wright DO CHEMISTRY ORDERABLES Performing Organization Address City/State/[facility] Co de Phone Number [facility] [place] [address] documented in this encounter Visit Diagnoses Diagnosis Type 1 diabetes mellitus with diabetic retinopathy, macular edema presence unspecified, unspecified retinopathy severity documented in this encounter Care Teams Brush Holder Assembler Relationship Specialty Start Date End Date Felisha Juan APRN [address] [place] [address] PCP - General Family Medicine 10/29/15 01/29/22 documented as of this encounter
--- OUTSIDE RECORDS SUMMARY | 2024-04-29 00:49 | XMS_ITS | Encounter Summary ---
Author Organization [facility] Address [facility] [place] [address] Care Team Providers Care Recreation Establishment Manager Name Role Phone Felisha Juan APRN Primary Care Provider [phone] Encounter Details Date Type Department Care Team (Late st Contact Info) Description 01/03/2022 Notes [place] [address] Madi Briceño MD [facility] [place] [address] Social History Tobacco Use Types Packs/Day Years [...] on filedocumented in this encounter Care Teams Recreation Establishment Manager Relationship Specialty Start Date End Date Felisha Juan APRN [address] [place] [address] PCP - General Family Medicine 10/29/15 01/29/22 documented as of this encounter
--- OUTSIDE RECORDS SUMMARY | 2024-04-29 00:49 | XMS_ITS | Encounter Summary ---
Author Organization [facility] Address [facility] [place] [address] Care Team Providers Care Driver Messenger Name Role Phone Yessica Felisha SNOW FENCE ERECTOR Primary Care Provider [phone] Encounter Details Date Type Department Care Team (Late st Contact Info) Description 11/21/2020 Orders [place] [address] Carlos Ann MD [facility] [place] [address] Controlled type 1 diabetes mellitus with retinopathy [...] severity documented in this encounter Care Teams Driver Messenger Relationship Specialty Start Date End Date Felisha Juan APRN [address] [place] [address] PCP - General Family Medicine 10/29/15 01/29/22 documented as of this encounter
--- OUTSIDE RECORDS SUMMARY | 2024-04-29 00:49 | XMS_ITS | Encounter Summary ---
Author Organization [facility] [place] [address] Care Team Providers Care Quality Auditor Name Role Phone Felisha Juan APRN Primary Care Provider [phone] Reason for Visit * Auth/Cert Specialty Diagnoses / Procedures Referred By Chip sebastian Referred To Contact Diagnoses STEMI (ST elevation myocardial infarction) STEMI Procedures CARDIAC CATHETERIZATION Ray Salomon MD [facility] [place] [address] [facility] Referral ID Status Reason Start Date Expiration Date Visits Re quested Visits Authorized [id number] 1 1 Encounter Details Date Type Department Care Team (Late st Contact Info) Description 01/03/2022 10:10 PM EDT - 01/03/2022 11:32 PM EDT Surgery [employer] [place] [address] Moi Ledezma MD [facility] [place] [address] CARDIAC CATHETERIZATION Social History Tobacco Use Types [...] Afua Rosales Patient Age: 46 y.o. Language: South Korean Race: White Ethnicity: Not nor Admit date: [...] will need follow up with cardiology at [facility] as well as to establish care. Patient [...] made her nauseous. ?? On arrival to [facility], she was afebrile, BP was 95/54, she was oxygenating normally on room air. She was infused with 1L IV fluids, given 25 mg of aspirin (per [facility] discharge note). The on-call agronomist at [facility] [place] contacted, she was given 300 mg of Plavix, aspirin, heparin with bolus and drip. She was also given tecteplase 35mg. ?? On arrival to [facility] catheter builder, she underwent LHC and received TRACIE x2 [...] for you to establish care with a fish agent at [facility] as well as a referral to cardiac [...] appointments: During 8am-5pm Thursday through Thursday call [phone] to speak with a nurse in the cardiology clinic All other times call [phone] and ask to speak to the agronomist acute care nurse practitioner. Activity level: - No heavy lifting (more [...] none Follow up Appointments: No future appointments. Ramp Service Agent: You will be contacted by [facility] to schedule a cardiology appointment to establish care. PCP: Felisha Juan APRN at [phone] Your Inpatient Doctor(s) at [facility]: Ray Salomon MD - Attending physician Cam David MD - Payment Specialist physician Your Primary Care Provider: Felisha Juan APRN [address] [facility] [address] For questions regarding issues relating to your hospitalization on the Hospital Medicine Service, please contact your inpatient physician through the [facility] Business Project Manager [phone]. Issues after hours and on weekends will be handled by the Hospitalist staff on-call. General Instructions None Future Appointments and Orders Future Orders Complete By Expires Referral to Cardiac Rehab [[id number] Custom] As directed Process Instructions: If no progress note charted, please enter Clinical details in comments. Scheduling Instructions: Questions: My question or request is: cardiac rehab referral s/p STEMI, she would benefit from location close to [facility] Referral to Cardiology [[id number] Custom] As directed Process Instructions: If no progress note charted, please enter Clinical details in comments. Scheduling Instructions: Questions: My question or request is: establish care after inferoposterior stemi Provider Contact Information: [address] / [facility] [address] Discharge References/Attachments: Discharge References/Attachments None Associated attestation - Ray Salomon MD - 01/06/2022 1:51 PM EDT Dear Colleagues, I was the attending at the time of discharge. Please call or email me if you have questions. Ray Salomon MD, [facility] [phone] documented in this encounter Discharge Instructions * [...] for you to establish care with a fish agent at [facility] as well as a referral to cardiac [...] appointments: During 8am-5pm Thursday through Thursday call [phone] to speak with a nurse in the cardiology clinic All other times call [phone] and ask to speak to the agronomist acute care nurse practitioner. Activity level: - No heavy lifting (more [...] none Follow up Appointments: No future appointments. Ramp Service Agent: You will be contacted by [facility] to schedule a cardiology appointment to establish care. PCP: Felisha Juan APRN at [phone] Your Inpatient Doctor(s) at [facility]: Ray Salomon MD - Attending physician Cam David MD - Payment Specialist physician Your Primary Care Provider: Felisha Juan APRN [address] [facility] [address] For questions regarding issues relating to your hospitalization on the Hospital Medicine Service, please contact your inpatient physician through the [facility] Business Project Manager [phone]. 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 as calculated from the following: Height as of this encounter: 165.1 cm (5' 5). Weight as of this encounter: 62.3 kg (137 lb 5.6 oz). [place] Body Weight: 125 lbs / 56.7 kg [...] up while inpatient Phuong Clements RD Pager #:[phone] * Ray Salomon MD - 01/06/2022 6:54 AM EDT Images from the original note were not included. Inpatient Cardiology Progress Note Patient info: Name: Afua Rosales : 1975 PCP: Felisha Juan APRN PCP phone number: [phone] Date of Admission: 01/03/2022 ( Hospital Day 3 days ) Attending:Ray Salomon MD ID: Afua Rosales is a 46 y.o. 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 She presents with inferior STEMI and is now s/p PCI with TRACIE x2 to RCA. Hospital Day3 24 Hour Events/Subjective: - GUSTAVO ROJAS - pharmacy is [facility] in [facility], BF can strip picker at 6 pm when neighbor's car [...] Procedure Component Value Units Date/Time COVID-19 PCR [[id number]] Collected: 01/04/22 0050 Lab Status: Final result [...] diagnosis of COVID-19 is performed using the [place] COVID-19 Direct Assay by [employer] as authorized by the FDA issued Emergency [...] Department of Pathology and Laboratory Medicine at [facility], certified under the Clinical Laboratory Improvement [...] fact sheets at the following FDA website: https://www.fda.gov/medical-devices/fvdflhwdhqu-tjjoxoe-4310-mippd-66-nwithykca- fve-delyjxsdicrcxv-buuzshn-devices/qhqms-cyfbxortjep-xgqn SARS-CoV-2 Source MANAGER FINANCIAL PLANNING Swab Imaging: No results found for this [...] David MD Internal Medicine, PGY-1 Cardiology, S2 ([id number]) 01/06/22 Cardiology Staff Addendum Afua Rosales is [...] Sky ? Lucia Alexander Endocrinology Fellow Pager [phone] I have seen the patient and reviewed [...] PCP: Felisha Juan APRN PCP phone number: [phone] Date of Admission: 01/03/2022 ( Hospital Day [...] Procedure Component Value Units Date/Time COVID-19 PCR [[id number]] Collected: 01/04/22 005 Lab Status: Final result [...] using the Simplexa COVID-19 Direct Assay by [employer] Endeavor as authorized by the FDA issued Emergency [...] Department of Pathology and Laboratory Medicine at [facility], certified under the Clinical Laboratory Improvement [...] fact sheets at the following FDA website: https://www.fda.gov/medical-devices/ndlzvdgmbso-kswmkhj-4402-vkhow-71-ssdxucoyw- rzq-cvcgvwcmvvgxql-nymlvgl-devices/jfpya-lvhdncqwuzc-sfhe SARS-CoV-2 Source MANAGER FINANCIAL PLANNING Swab Imaging: No results found for this [...] Clark MD - 01/04/2022 3:25 AM EDT [facility] TeleICU Initial Assessment Note I established audio/visual communication with the patient's room, reviewed the eDH. History and Assessment: 46 y.o. 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 STEMIalert activated and went to catheter builder where proximal and mid RCA stents were [...] injection 5,000 Units, 5,000 Units, Subcutaneous, Q8H [facility], Sumanth Barnard MD, 5,000 Units at 01/04/22114 [...] PCP: Felisha Juan APRN PCP phone number: [phone] Date of Admission: 01/03/2022 ( Hospital Day [...] previously made her nauseous. On arrival to [facility], she was afebrile, BP was 95/54, she was oxygenating normally on room air. She was infused with 1L IV fluids, given 25 mg of aspirin (per [facility] discharge note). The on-call agronomist at [facility] was contacted, she was given 300 mg of Plavix, aspirin, heparin with bolus and drip. She was also given tecteplase 35mg. On arrival to [facility] catheter builder, she underwent LHC and received TRACIE x2 [...] dextrose 10% ORglucagon, NORepinephrine Assessment & Plan: fAua Rosales is a 46 y.o. female with [...] COVID test: Lab Results Component Value Date [id number] Not Detected 01/04/2022 Past medical History: No past medical history on file. Hospitalizations Within the Past 30 Days: no previous admission in last 30 days Current Decision-Making Capacity: Self Advance Care Planning: Attempt Cardiopulmonary Resuscitation - Inpatient <no information> -Advanced Directive: No, need to discuss If AD's have not been completed daughter would be surrogate decision maker per [place] surrogate decision making law. (Only good for 180 days) Any patient receiving care at [facility] must abide by [place] law. The hierarchy for surrogate decision making [...] (i) The agent with financial power of energy attorney or a conservator appointed in accordance [...] confirmed as: [address] [facility] [address] Social & Family Supports: All names listed below confirmed with patient as current and correct Extended Emergency Contact Information Primary Emergency Contact: Delano Reyna [facility] Mobile Relation: Friend Current Care [...] MEDICAID [place] Prescription Coverage: Yes Preferred Pharmacy: [id number] - [place], [place] - [address] [address] [facility] [address] [facility] - [facility], [place] - [address] [address] [facility] [address] [place] Status: Patient is a : No Primary Care Provider: Felisha Juan APRN [phone] Patient/Caregiver Goals of Treatment: To go home Potential Needs for Transition of Care: none Agency Referrals: None anticipated Transportation: other (see comments) (Needs ride home generally take the free transfer bus in her home town for groceries) Transportation Anticipated: health plan transportation Concerns to be Addressed: discharge planning Assessment: Patient is admitted to *[facility] service for STEMI Plan: Home today with a medicaid ride / RS to confirm when ride is obtained A member of the Care Management team will continue to monitor progress, follow for continuity of care and assist with transition of care planning. Office of Care Management Surgery Team Civil Clerk [email or web address] Pager [phone] #[phone] * Consult Note - Mark Sky [...] management and to provide a review of oysterman diabetescare. Diabetes History: Afua Rosales has had [...] meal) 4. Carb controlled diet level 2 [facility] diabetes care: Medications - Outpatient treatment regimen recommendations pending based on the hospital course. Monitoring - continue BG check q4 hours for now Diet - low fat/low carb diet Exercise - weight-bearing exercise 30 min/day, as tolerated Thank you for allowing us to provide care for your patient. Discussed with Dr. Asya Alexander Endocrinology Fellow Pager [phone] I have seen the patient and reviewed [...] 01/04/2022 1:44 AM EDT RAPID COVID-19 PCR ([facility]) Routine 01/04/2022 12:50 AM EDT HEMOGRAM Routine [...] Glucose, POC 197 65 - 199 mg/dL [facility] Comment: Supplemental ranges: <140 mg/dL before meals <180 mg/dL all other times of the day Blood 01/06/2022 2:32 PM EDT 01/06/2022 2:32 PM EDT Ray Salomon MD POINT OF CARE TEST O MUSHTAQ Performing Organization Address City/[facility]/ZIP Co de Phone Number [facility] [place] [address] * (ABNORMAL) POCT Glucose (01/06/2022 11:47 AM EDT) Glucose, POC 299(H) 65 - 199 mg/dL [facility] Comment: Supplemental ranges: <140 mg/dL before meals <180 mg/dL all other times of the day Blood 01/06/2022 11:4 7 AM EDT 01/06/2022 11:47 AM EDT Ray Salomon MD POINT OF CARE TEST O MUSHTAQ [facility] [place] [address] * POCT Glucose (01/06/2022 8:01 AM EDT) Glucose, POC 142 65 - 199 mg/dL [facility] Comment: Supplemental ranges: <140 mg/dL before meals <180 mg/dL all other times of the day Blood 01/06/2022 8:01 AM EDT 01/06/2022 8:01 AM EDT Ray Salomon MD POINT OF CARE TEST O RDERABLES [facility] [place] [address] * Differential, Automated (01/06/2022 4:20 AM EDT) [facility] Neutrophil % 51.9 % [facility] Neutrophil Absolute 3.34 1.70 - 6.10 x10(3)/[facility] Lymph % 32.5 % [facility] Lymphocytes Abs 2.1 0.9 - 3.2 x10(3)/[facility] Monocyte % 13.7 % [facility] Monocyte Abs 0.9 0.3 - 0.9 x10(3)/[facility] Eos % 1.1 % [facility] Eosinophils Abs 0.1 0.0 - 0.4 x10(3)/[facility] Basophil % 0.6 % [facility] Baso Absolute 0.0 0.0 - 0.1 x10(3)/[facility] Immature Gran % 0.20 % [facility] Comment: Immature granulocytes(IG's)percentage and absolute count will include metamyelocytes, myelocytes, and promyelocytes. Blood smears from CBCs yielding IG's will be scanned manually for concordance. If this scan disagrees with the automated IG or if promyelocytes are noted, a manual differential will be performed. Immature Gran Absolute 0.01 0.00 - 0.04 x10(3)/[facility] Blood 01/06/2022 4:20 AM EDT 01/06/2022 4:39 AM EDT Narrative Resulting Agency Comment Spec In Lab Cam David MD HEMATOLOGY ORDERABLE S [facility] [place] [address] * (ABNORMAL) Hemogram (01/06/2022 4:20 AM EDT) White Blood Cell 6.4 4.0 - 9.5 x10(3)/[facility] Red Blood Cell 3.86(L) 4.00 - 5.21 x10(6)/mc L [facility] Hemoglobin 12.4 11.7 - 15.5 g/dL [facility] Hematocrit 36.0 35.7 - 45.8 % [facility] Mean Cell Volume 93.3 82.6 - 94.4 fL [facility] Mean Cell Hemoglobin 32.1(H) 27.1 - 32.0 pg [facility] Mean Cell Hemoglobin Concentration 34.4 31.7 - 35.0 g/dL [facility] Platelet 177 145 - 357 x10(3)/mc L [facility] RDW Standard Deviation 42.0 37.0 - 46.0 [facility] RDW coefficient of variation 12.1 11.5 - 14.1 % [facility] Mean Platelet Volume 10.0 7.6 - 12.9 fL [facility] NRBC% auto 0.0 % [facility] NRBC Absolute 0.000 0.000 - 0.000 x10(3)/ L [facility] Blood 01/06/2022 4:20 AM EDT 01/06/2022 4:39 AM EDT Narrative Resulting Agency Comment Spec In Lab Cam David MD HEMATOLOGY ORDERABLE S [facility] [place] [address] * Basic Metabolic Panel (non-fasting) (01/06/2022 4:20 AM EDT) Glucose 123 65 - 199 mg/dL [facility] Comment:Diabetes: >=200 mg/d L plus symptoms Blood Urea Nitrogen 13 8 - 18 mg/dL [facility] Creatinine 0.77 0.70 - 1.20 mg/dL [facility] Sodium 137 135 - 145 mmol/L [facility] Potassium 4.0 3.5 - 5.0 mmol/L [facility] Comment: Please note: ??Patients with WBC >100,000 may have falsely elevated Potassium levels. ??For accurate Potassium quantification in these patients send serum separator tube (gold top) for subsequent determinations. ??Contact the Clinical Chemistry Laboratory if there are any questions. Chloride 102 98 - 107 mmol/L [facility] Carbon Dioxide 26 22 - 31 mmol/L [facility] Anion Gap 9 5 - 15 mmol/L [facility] Calcium 9.2 8.5 - 10.5 mg/dL [facility] Est Glomerular Filtration Rate 92 >=60 mL/min/1. 73 m?? [facility] Comment: This patient? [...] Salomon MD CHEMISTRY ORDERABLES Performing Organization Address [facility]/ZIP Co de Phone Number [facility] [place] [address] * POCT Glucose (01/06/2022 3:46 AM EDT) Glucose, POC 129 65 - 199 mg/dL [facility] Comment: Supplemental ranges: <140 mg/dL before meals <180 mg/dL all other times of the day Blood 01/06/2022 3:46 AM EDT 01/06/2022 3:46 AM EDT Ray Salomon MD POINT OF CARE TEST O RDERABLES Performing Organization Address [facility] Co de Phone Number [facility] [place] [address] * POCT Glucose (01/06/2022 12:06 AM EDT) Glucose, POC 125 65 - 199 mg/dL [facility] Comment: Supplemental ranges: <140 mg/dL before meals <180 mg/dL all other times of the day Blood 01/06/2022 12:0 6 AM EDT 01/06/2022 12:06 AM EDT Ray Salomon MD POINT OF CARE TEST O MUSHTAQ Performing Organization Address [facility]/ZIP Co de Phone Number [facility] [place] [address] * (ABNORMAL) POCT Glucose (01/05/2022 8:11 PM EDT) Glucose, POC 220(H) 65 - 199 mg/dL [facility] Comment: Supplemental ranges: <140 mg/dL before meals <180 mg/dL all other times of the day Blood 01/05/2022 8:11 PM EDT 01/05/2022 8:11 PM EDT Ray Salomon MD POINT OF CARE TEST O RDERABLES Performing Organization Address City/[facility]/ZIP Co de Phone Number [facility] [place] [address] * POCT Glucose (01/05/2022 6:00 PM EDT) Glucose, POC 190 65 - 199 mg/dL [facility] Comment: Supplemental ranges: <140 mg/dL before meals <180 mg/dL all other times of the day Blood 01/05/2022 6:00 PM EDT 01/05/2022 6:00 PM EDT Ray Salomon MD POINT OF CARE TEST O RDERAFRANKLIN Performing Organization Address [facility] Co de Phone Number [facility] [place] [address] * POCT Glucose (01/05/2022 3:53 PM EDT) Glucose, POC 161 65 - 199 mg/dL [facility] Comment: Supplemental ranges: <140 mg/dL before meals <180 mg/dL all other times of the day Blood 01/05/2022 3:53 PM EDT 01/05/2022 3:53 PM EDT Ray Salomon MD POINT OF CARE TEST O SANDEEPERAFRANKLIN Performing Organization Address City/[facility]/ZIP Co de Phone Number [facility] [place] [address] * (ABNORMAL) Differential, Automated (01/05/2022 11:45 AM EDT) Neutrophil % 65.9 % [facility] Neutrophil Absolute 4.46 1.70 - 6.10 x10(3)/mc L [facility] Lymph % 19.0 % [facility] Lymphocytes Abs 1.3 0.9 - 3.2 x10(3)/mc L [facility] Monocyte % 14.2 % [facility] Monocyte Abs 1.0(H) 0.3 - 0.9 x10(3)/[facility] Eos % 0.1 % [facility] Eosinophils Abs 0.0 0.0 - 0.4 x10(3)/[facility] Basophil % 0.4 % [facility] Baso Absolute 0.0 0.0 - 0.1 x10(3)/[facility] Immature Gran % 0.40 % [facility] Comment: Immature granulocytes(IG's)percentage and absolute count will include metamyelocytes, myelocytes, and promyelocytes. Blood smears from CBCs yielding IG's will be scanned manually for concordance. If this scan disagrees with the automated IG or if promyelocytes are noted, a manual differential will be performed. Immature Gran Absolute 0.03 0.00 - 0.04 x10(3)/[facility] Blood 01/05/2022 11:4 5 AM EDT 01/05/2022 12:08 PM EDT Narrative Resulting Agency Comment Spec In Lab Cam David MD HEMATOLOGY ORDERABLE S [facility] [place] [address] * (ABNORMAL) Hemogram (01/05/2022 11:45 AM EDT) White Blood Cell 6.8 4.0 - 9.5 x10(3)/ L [facility] Red Blood Cell 3.92(L) 4.00 - 5.21 x10(6)/ L [facility] Hemoglobin 12.5 11.7 - 15.5 g/dL [facility] Hematocrit 36.4 35.7 - 45.8 % [facility] Mean Cell Volume 92.9 82.6 - 94.4 fL [facility] Mean Cell Hemoglobin 31.9 27.1 - 32.0 pg [facility] Mean Cell Hemoglobin Concentration 34.3 31.7 - 35.0 g/dL [facility] Platelet 187 145 - 357 x10(3)/mc L [facility] RDW Standard Deviation 41.9 37.0 - 46.0 fL [facility] RDW coefficient of variation 12.3 11.5 - 14.1 % [facility] Mean Platelet Volume 10.4 7.6 - 12.9 fL [facility] NRBC% auto 0.0 % [facility] NRBC Absolute 0.000 0.000 - 0.000 x10(3)/mc L [facility] Blood 01/05/2022 11:4 5 AM EDT 01/05/2022 12:08 PM EDT Narrative Resulting Agency Comment Spec In Lab Cam David MD HEMATOLOGY ORDERABLE S [facility] [place] [address] * Basic Metabolic Panel (non-fasting) (01/05/2022 11:45 AM EDT) Glucose 140 65 - 199 mg/dL [facility] Comment:Diabetes: >=200 mg/d L plus symptoms Blood Urea Nitrogen 10 8 - 18 mg/dL [facility] Creatinine 0.75 0.70 - 1.20 mg/dL [facility] Sodium 137 135 - 145 mmol/L [facility] Potassium 3.9 3.5 - 5.0 mmol/L [facility] Comment: Please note: ??Patients with WBC >100,000 may have falsely elevated Potassium levels. ??For accurate Potassium quantification in these patients send serum separator tube (gold top) for subsequent determinations. ??Contact the Clinical Chemistry Laboratory if there are any questions. Chloride 101 98 - 107 mmol/L [facility] Carbon Dioxide 25 22 - 31 mmol/L [facility] Anion Gap 11 5 - 15 mmol/L [facility] Calcium 8.6 8.5 - 10.5 mg/dL [facility] Est Glomerular Filtration Rate 95 >=60 mL/min/1. 73 m?? [facility] Comment: This patient? [...] Salomon MD CHEMISTRY ORDERABLES Performing Organization Address [facility]/ZIP Co de Phone Number [facility] [place] [address] * POCT Glucose (01/05/2022 11:40 AM EDT) [facility] Glucose, POC 148 65 - 199 mg/dL [facility] Comment: Supplemental ranges: <140 mg/dL before meals <180 mg/dL all other times of the day Blood 01/05/2022 11:4 0 AM EDT 01/05/2022 11:40 AM EDT Ray Salomon MD POINT OF CARE TEST O RDERABLES Performing Organization Address City/[facility]/ZIP Co de Phone Number [facility] [place] [address] * EKG 12 Lead (01/05/2022 8:23 AM EDT) Ventricular rate 78 BPM MUSE SYSTEM Atrial Rate 78 BPM MUSE SYSTEM P-R Interval 132 ms MUSE SYSTEM QRS Duration 106 ms MUSE SYSTEM Q-T Interval 364 ms MUSE SYSTEM QTC Calculated (Bezet) 414 ms MUSE SYSTEM Calculated P Chaffee 78 degrees MUSE SYSTEM Calculated R Chaffee -65 degrees MUSE SYSTEM Calculated T Chaffee -33 degrees MUSE SYSTEM INTERPRETATION Normal sinus rhythm Left axis deviation Incomplete right bundle branch block Cannot rule out Inferior infarct , age undetermined Abnormal ECG When compared with ECG of 04-JAN-2022 00:45, Incomplete right bundle branch block is now Present Minimal criteria for Inferior infarct are now Present Confirmed by Storm Lewis ([id number]) on 01/05/2022 3:44:16 PM MUSE SYSTEM 01/05/2022 8:23 AM EDT 01/05/2022 3:44 PM EDT Ray Salomon MD ECG ORDERABLES Performing Organization Address City/[facility]/ZIP Co de Phone Number MUSE SYSTEM * (ABNORMAL) POCT Glucose (01/05/2022 7:43 AM EDT) Glucose, POC 213(H) 65 - 199 mg/dL [facility] Comment: Supplemental ranges: <140 mg/dL before meals <180 mg/dL all other times of the day Blood 01/05/2022 7:43 AM EDT 01/05/2022 7:43 AM EDT Ray Salomon MD POINT OF CARE TEST O RDERABLES Performing Organization Address City/[facility]/ZIP Co de Phone Number [facility] [place] [address] * (ABNORMAL) POCT Glucose (01/05/2022 6:45 AM EDT) Glucose, POC 214(H) 65 - 199 mg/dL [facility] Comment: Supplemental ranges: <140 mg/dL before meals <180 mg/dL all other times of the day Blood 01/05/2022 6:45 AM EDT 01/05/2022 6:45 AM EDT Ray Salomon MD POINT OF CARE TEST O RDERABLES Performing Organization Address City/[facility]/ZIP Co de Phone Number [facility] [place] [address] * POCT Glucose (01/05/2022 5:31 AM EDT) Glucose, POC 89 65 - 199 mg/dL [facility] Comment: Supplemental ranges: <140 mg/dL before meals <180 mg/dL all other times of the day Blood 01/05/2022 5:31 AM EDT 01/05/2022 5:31 AM EDT Ray Salomon MD POINT OF CARE TEST O RDERAFRANKLIN Performing Organization Address [facility] Co de Phone Number [facility] [place] [address] * (ABNORMAL) POCT Glucose (01/05/2022 5:09 AM EDT) Glucose, POC 59(L) 65 - 199 mg/dL [facility] Comment: Supplemental ranges: <140 mg/dL before meals <180 mg/dL all other times of the day Blood 01/05/2022 5:09 AM EDT 01/05/2022 5:09 AM EDT Ray Salomon MD POINT OF CARE TEST O SANDEEPERAFRANKLIN Performing Organization Address [facility] Co de Phone Number [facility] [place] [address] * POCT Glucose (01/05/2022 12:45 AM EDT) Glucose, POC 96 65 - 199 mg/dL [facility] Comment: Supplemental ranges: <140 mg/dL before meals <180 mg/dL all other times of the day Blood 01/05/2022 12:4 5 AM EDT 01/05/2022 12:45 AM EDT Ray Salomon MD POINT OF CARE TEST O RDERABLES Performing Organization Address City/[facility]/ZIP Co de Phone Number [facility] [place] [address] * POCT Glucose (01/04/2022 7:28 PM EDT) Glucose, POC 104 65 - 199 mg/dL [facility] Comment: Supplemental ranges: <140 mg/dL before meals <180 mg/dL all other times of the day Blood 01/04/2022 7:28 PM EDT 01/04/2022 7:28 PM EDT Ray Salomon MD POINT OF CARE TEST O RDERABLES Performing Organization Address [facility] Co de Phone Number [facility] [place] [address] * POCT Glucose (01/04/2022 4:04 PM EDT) Glucose, POC 190 65 - 199 mg/dL [facility] Comment: Supplemental ranges: <140 mg/dL before meals <180 mg/dL all other times of the day Blood 01/04/2022 4:04 PM EDT 01/04/2022 4:04 PM EDT Ray Salomon MD POINT OF CARE TEST O RDERABLES Performing Organization Address City/[facility]/ZIP Co de Phone Number [facility] [place] [address] * POCT Glucose (01/04/2022 12:09 PM EDT) Glucose, POC 157 65 - 199 mg/dL [facility] Comment: Supplemental ranges: <140 mg/dL before meals <180 mg/dL all other times of the day Blood 01/04/2022 12:0 9 PM EDT 01/04/2022 12:09 PM EDT Ray Salomon MD POINT OF CARE TEST O RDERABLES [facility] [address] [facility] [address] [place] [address] * ECHO COMPLETE W CONTRAST (01/04/2022 11:08 AM EDT) EF 60 HEARTLAB SYSTEM Anatomical Region Laterality Modality Cardiac Other 01/04/2022 10:3 3 AM EDT Narrative 01/04/2022 11:25 AM EDT [facility] ?[address] ? [place] [address] ?Voice: ?Fax: ? Echocardiogram Report Name: AFUA ROSALES ? Study Date: 01/04/2022 10:33 AM ? Patient [facility]: [facility] A : 1975 ? Height: 65 in ? Account: [id number] Age: 46 yrs ? Weight: 148 lb Gender: Female ?BSA: 1.7 m2 Ordering Physician: MOI LEDEZMA Referring Physician: MT VALENZUELA Exam Location: [facility]. Interpretation Summary Technically difficult. Left ventricular [...] jet. There is no valve disease. Procedure Complete-56853. Image enhancement Optison was used for left [...] Procedure Note Ray Salomon MD - 01/04/2022 [place] [address] Voice: Fax: Echocardiogram Report Name: AFUA ROSALES Study Date: :33 AM Patient Location: [address] : 1975 Height: 65 in Account: [id number] Age: 46 yrs Weight: 148 lb Gender: Female BSA: 1.7 m2 Ordering Physician: MOI LEDEZMA Referring Physician: MT VALENZUELA Exam Location: [facility]. Interpretation Summary Technically difficult. Left ventricular [...] jet. There is no valve disease. Procedure Complete-[id number]. Image enhancement Optison was used for left [...] Glucose, POC 100 65 - 199 mg/dL [facility] Comment: Supplemental ranges: <140 mg/dL before meals <180 mg/dL all other times of the day Blood 01/04/2022 10:0 5 AM EDT 01/04/2022 10:05 AM EDT Ray Salomon MD POINT OF CARE TEST O RDERABLES [facility] [place] [address] * POCT Glucose (01/04/2022 8:23 AM EDT) Glucose, POC 72 65 - 199 mg/dL [facility] Comment: Supplemental ranges: <140 mg/dL before meals <180 mg/dL all other times of the day Blood 01/04/2022 8:23 AM EDT 01/04/2022 8:23 AM EDT oMi Ledezma MD POINT OF CARE TEST O RDERABLES [facility] [place] [address] * POCT Glucose (01/04/2022 5:03 AM EDT) Glucose, POC 143 65 - 199 mg/dL [facility] Comment: Supplemental ranges: <140 mg/dL before meals <180 mg/dL all other times of the day Blood 01/04/2022 5:03 AM EDT 01/04/2022 5:03 AM EDT Moi Ledezma MD POINT OF CARE TEST O MUSHTAQ Performing Organization Address [facility] Co de Phone Number [facility] [place] [address] * POCT Glucose (01/04/2022 3:01 AM EDT) Glucose, POC 182 65 - 199 mg/dL [facility] Comment: Supplemental ranges: <140 mg/dL before meals <180 mg/dL all other times of the day Blood 01/04/2022 3:01 AM EDT 01/04/2022 3:01 AM EDT Moi Ledezma MD POINT OF CARE TEST O MUSHTAQ Performing Organization Address [facility] Co de Phone Number [facility] [place] [address] * (ABNORMAL) BLOOD GAS 2 VENOUS (01/04/2022 1:44 AM EDT) pH, Venous 7.33 7.32 - 7.42 [facility] PCO2, Venous 45 41 - 51 mmHg [facility] PO2, Venous 52(H) 25 - 40 mmHg [facility] Bicarbonate, Venous 23.5 mmol/L [facility] Base Excess, Venous -2.7 mmol/L [facility] Hgb Blood Gas 13.1 11.7 - 15.5 g/dL [facility] Oxyhemoglobin, Venous 86.6 % [facility] Carboxyhemoglob in, Venous 0.3 % [facility] Comment: Nonsmokers: 0.5-1.5% COHB Smokers: Variable, but usually less than 10% Toxic: 20-30% COHB Lethal: Greater than 60% COHB Methemoglobin, Venous 0.8 <=1.5 % [facility] Na Whole Blood 134(L) 135 - 145 mmol/L [facility] K Whole Blood 4.1 3.5 - 5.0 mmol/L [facility] Comment: Please note: Patients with WBC >100,000 may have falsely elevated Potassium levels. Contact the Clinical Chemistry Laboratory if there are any questions. ICa Whole Blood 1.21 1.15 - 1.33 mmol/L [facility] Comment: Note: ??Total bilirubin higher than 20 mg/dL may lead to falsely low ionized calcium. CL Whole Blood 104 98 - 107 mmol/L [facility] Gluc Whole Bld 215(H) 65 - 199 mg/dL [facility] Comment:Diabetes: >=200 mg/d L plus symptoms Lactate WB 0.8 0.5 - 2.2 mmol/L [facility] Fraction of Inspired Oxygen, Venous 21 % [facility] Blood Gas Source Venous [facility] Temperature, Venous 35.8 Celsius [facility] Blood 01/04/2022 1:44 AM EDT 01/04/2022 1:44 AM EDT Moi Ledezma MD POINT OF CARE TEST O RDERABLES [facility] [place] [address] * (ABNORMAL) Differential, Automated (01/04/2022 12:50 AM EDT) Neutrophil % 86.1 % [facility] Neutrophil Absolute 5.92 1.70 - 6.10 x10(3)/mc L [facility] Lymph % 9.6 % [facility] Lymphocytes Abs 0.7(L) 0.9 - 3.2 x10(3)/mc L [facility] Monocyte % 3.6 % [facility] Monocyte Abs 0.2(L) 0.3 - 0.9 x10(3)/mc L [facility] Eos % 0.1 % [facility] Eosinophils Abs 0.0 0.0 - 0.4 x10(3)/ L [facility] Basophil % 0.3 % [facility] Baso Absolute 0.0 0.0 - 0.1 x10(3)/ L [facility] Immature Gran % 0.30 % [facility] Comment: Immature granulocytes(IG's)percentage and absolute count will include metamyelocytes, myelocytes, and promyelocytes. Blood smears from CBCs yielding IG's will be scanned manually for concordance. If this scan disagrees with the automated IG or if promyelocytes are noted, a manual differential will be performed. Immature Gran Absolute 0.02 0.00 - 0.04 x10(3)/[facility] Blood 01/04/2022 12:5 0 AM EDT 01/04/2022 1:24 AM EDT Narrative Resulting Agency Comment Spec In Lab Sumanth Barnard MD HEMATOLOGY ORDERABL ES [facility] [place] [address] * (ABNORMAL) Hemogram (01/04/2022 12:50 AM EDT) White Blood Cell 6.9 4.0 - 9.5 x10(3)/ L [facility] Red Blood Cell 3.77(L) 4.00 - 5.21 x10(6)/mc L [facility] Hemoglobin 11.9 11.7 - 15.5 g/dL [facility] Hematocrit 34.4(L) 35.7 - 45.8 % [facility] Mean Cell Volume 91.2 82.6 - 94.4 fL [facility] Mean Cell Hemoglobin 31.6 27.1 - 32.0 pg [facility] Mean Cell Hemoglobin Concentration 34.6 31.7 - 35.0 g/dL [facility] Platelet 197 145 - 357 x10(3)/mc L [facility] RDW Standard Deviation 40.7 37.0 - 46.0 fL [facility] RDW coefficient of variation 12.1 11.5 - 14.1 % [facility] Mean Platelet Volume 10.4 7.6 - 12.9 fL [facility] NRBC% auto 0.0 % [facility] NRBC Absolute 0.000 0.000 - 0.000 x10(3)/mc L [facility] Blood 01/04/2022 12:5 0 AM EDT 01/04/2022 1:24 AM EDT Narrative Resulting Agency Comment Spec In Lab Sumanth Barnard MD HEMATOLOGY ORDERABL ES Performing Organization Address City/[facility]/ZIP Co de Phone Number [facility] [place] [address] * (ABNORMAL) Beta Hydroxybutyrate (01/04/2022 12:50 AM EDT) Beta-hydroxybu turate 0.95(H) 0.00 - 0.30 mmol/L [facility] Comment: Reference range: ??0.00-0.30 mmol/L, based on an overnight fast. ??Children may be higher. Blood 01/04/2022 12:5 0 AM EDT 01/04/2022 1:24 AM EDT Narrative Resulting Agency Comment Spec In Lab Moi Ledezma MD CHEMISTRY ORDERABLES Performing Organization Address City/[facility]/ZIP Co de Phone Number [facility] [place] [address] * (ABNORMAL) Hemoglobin A1c (01/04/2022 12:50 AM EDT) Hemoglobin A1c 8.0(H) 4.3 - 5.6 % [facility] Comment: Reference Range: [...] Mellitus, Diabetes Care 2013; 36: Suppl. 1, E97-73 Estimated Average Glucose 183 mg/dL [facility] Comment: eAG equivalents [...] into estimated average glucose values. ??Diabetes Care 2008:31(8):1692-2209. Blood 01/04/2022 12:5 0 AM EDT 01/04/2022 1:24 AM EDT Narrative Resulting Agency Comment Spec In Lab Moi Ledezma MD CHEMISTRY ORDERABLES [facility] [place] [address] * (ABNORMAL) Troponin (01/04/2022 12:50 AM EDT) Troponin-T 0.24(H) 0.00 - 0.00 ng/mL [facility] Comment: The 99th percentile for Troponin T is less than 0.01 ng/mL, any detectable cTnT concentration using this assay should be considered elevated. According to the third universal definition of myocardial infarction the following criteria with a clinical presentation consistent with acute myocardial ischemia meets the diagnosis for a myocardial infarction (CA). Detection of a rise and/or fall of cTnT, with at least one value greater than the 99th percentile (> or = 0.01) and with at least one of the following ?? Symptoms of ischemia ?? New or presumed new significant [id number] wave (ST-T) changes or new left bundle [...] additional sample may be indicated. Reference: Third Treadwell Definition of Myocardial Infarction. Journal of the [place] [employer] 2012;60:1581-98 Blood 01/04/2022 12:5 0 AM EDT 01/04/2022 1:24 AM EDT Narrative Resulting Agency Comment Spec In Lab Moi Ledezma MD CHEMISTRY ORDERABLES Performing Organization Address [facility] Co de Phone Number [facility] [place] [address] * pro-Brain Natriuretic Peptide (01/04/2022 12:50 AM EDT) NT-proBNP 56 <=124 pg/mL [facility] Blood 01/04/2022 12:5 0 AM EDT 01/04/2022 1:24 AM EDT Narrative Resulting Agency Comment Spec In Lab Moi Ledezma MD CHEMISTRY ORDERABLES Performing Organization Address [facility]/ZIP Co de Phone Number [facility] [place] [address] * LDL Cholesterol, Direct (01/04/2022 12:50 AM EDT) LDL Cholesterol, Direct 66 mg/dL [facility] Comment: Lowest Risk: <100 mg/dL Lower Risk: 100-129 mg/dL Borderline High Risk: 130-159 mg/dL High Risk: 160-189 mg/dL Very High Risk: >pp=062 mg/dL Blood 01/04/2022 12:5 0 AM EDT 01/04/2022 1:24 AM EDT Narrative Resulting Agency Comment Spec In Lab Moi Ledezma MD CHEMISTRY ORDERABLES [facility] [place] [address] * HDL/Cholesterol Profile (01/04/2022 12:50 AM EDT) Cholesterol, Total 136 mg/dL [facility] Comment: Lower Risk: <200 mg/dL Average Risk: 200-239 mg/dL Higher Risk: >ws=490 mg/dL HDL Cholesterol 63 mg/dL [facility] Comment: Males: ?? Higher Risk: <40 mg/dL Females: ?? Higher Risk: <50 mg/dL Cholesterol/HDL Ratio 2.2 ratio [facility] Chol/HDL Interpretation See Note [facility] Comment: Lipid management should be guided by a patient? s ASCVD risk, goals and preferences. ACC/AHA Guidelines recommend high intensity statin if clinical ASCVD or LDL greater than or equal to 190 mg/dL. http://Diet TVurl.com/WAQ-BJF-Nnnlgxjod Measure LDL if Total Cholesterol minus HDL Cholesterol is greater than 220 mg/dL. Adults aged 40-75 with LDL 70-189 mg/dL should have their 10 year ASCVD risk estimated with the ACC/AHA ASCVD risk manager stone http://tools.acc.org/KYLRL-Mwrc-Jfdbmmfrc/ Statin should be discussed if risk greater [...] Ledezma MD CHEMISTRY ORDERABLES Performing Organization Address [facility] Co de Phone Number [facility] [place] [address] * TSH (01/04/2022 12:50 AM EDT) Thyroid Stimulating Hormone 0.75 0.27 - 4.20 mcIU/mL [facility] Comment: Reference Interval (mcIU/mL): Females: ??First Trimester: 0.23-3.88 ??Second Trimester: 0.22-3.90 ??Third Trimester: 0.44-4.66 Blood 01/04/2022 12:5 0 AM EDT 01/04/2022 1:24 AM EDT Narrative Resulting Agency Comment Spec In Lab Moi Ledezma MD CHEMISTRY ORDERABLES Performing Organization Address [facility] de Phone Number [facility] [place] [address] * Phosphorus (01/04/2022 12:50 AM EDT) Phosphorus 2.7 2.5 - 4.5 mg/dL [facility] Blood 01/04/2022 12:5 0 AM EDT 01/04/2022 1:24 AM EDT Narrative Resulting Agency Comment Spec In Lab Moi Ledezma MD CHEMISTRY ORDERABLES Performing Organization Address [facility] Co de Phone Number [facility] [place] [address] * Magnesium (01/04/2022 12:50 AM EDT) Magnesium 0.84 0.69 - 1.07 mmol/L [facility] Blood 01/04/2022 12:5 0 AM EDT 01/04/2022 1:24 AM EDT Narrative Resulting Agency Comment Spec In Lab Moi Ledezma MD CHEMISTRY ORDERABLES [facility] [place] [address] * (ABNORMAL) Basic Metabolic Panel (non-fasting) (01/04/2022 12:50 AM EDT) Glucose 224(H) 65 - 199 mg/dL [facility] Comment:Diabetes: >=200 mg/d L plus symptoms Blood Urea Nitrogen 11 8 - 18 mg/dL [facility] Creatinine 0.62(L) 0.70 - 1.20 mg/dL [facility] Sodium 137 135 - 145 mmol/L [facility] Potassium 4.1 3.5 - 5.0 mmol/L [facility] Comment: Please note: ??Patients with WBC >100,000 may have falsely elevated Potassium levels. ??For accurate Potassium quantification in these patients send serum separator tube (gold top) for subsequent determinations. ??Contact the Clinical Chemistry Laboratory if there are any questions. Chloride 105 98 - 107 mmol/L [facility] Carbon Dioxide 22 22 - 31 mmol/L [facility] Anion Gap 10 5 - 15 mmol/L [facility] Calcium 8.5 8.5 - 10.5 mg/dL [facility] Est Glomerular Filtration Rate 107 >=60 mL/min/1. 73 m?? [facility] Comment: This patient? [...] In Lab Moi Ledezma MD CHEMISTRY ORDERABLES [facility] [place] [address] * COVID-19 PCR (01/04/2022 12:50 AM EDT) SARS-CoV-2 RNA (Rapid) Not Detected Not Detected [facility] Comment: This result [...] using the Simplexa COVID-19 Direct Assay by [employer] as authorized by the FDA issued Emergency [...] Department of Pathology and Laboratory Medicine at [facility], certified under the Clinical Laboratory Improvement [...] fact sheets at the following FDA website: https://www.fda.gov/medical-devices/sdgmtufnhfg-iikeejq-6173-pvkbn-13-ahewtswes- use-a zsgxgcrffqjat-zlrsnqj-fzpwoks/gyubh-fhqysjukxdy-fcno SARS-CoV-2 Source [employer]NAGER [employer] Swab [facility] Nasopharyngeal Swab 01/05/20 12:50 AM EDT 01/04/2022 1:48 AM EDT Comment:Symptoms->Surveillan ce Narrative Resulting Agency Comment Spec In Lab Moi Ledezma MD MICROBIOLOGY - GENER AL ORDERABLES [facility] [place] [address] * EKG 12 Lead (01/04/2022 12:45 AM EDT) Ventricular rate 94 BPM MUSE SYSTEM Atrial Rate 94 BPM MUSE SYSTEM P-R Interval 140 ms MUSE SYSTEM QRS Duration 92 ms MUSE SYSTEM Q-T Interval 370 ms MUSE SYSTEM QTC Calculated (Bezet) 462 ms MUSE SYSTEM Calculated P Chaffee 69 degrees MUSE SYSTEM Calculated R Chaffee 2 degrees MUSE SYSTEM Calculated T Chaffee 89 degrees MUSE SYSTEM INTERPRETATION Normal sinus rhythm Low voltage QRS Nonspecific ST and T wave abnormality Abnormal ECG When compared with ECG of 13-NOV-1999 14:45, ST now depressed in Anterior leads Nonspecific T wave abnormality now evident in Lateral leads Confirmed by MD Umm, Ray Espinoza ([id number]) on 01/04/2022 1:03:04 PM MUSE SYSTEM 01/04/2022 12:4 5 AM EDT 01/04/2022 1:03 PM EDT Moi Ledezma MD ECG ORDERABLES Performing Organization Address [facility] de Phone Number MUSE SYSTEM * POCT Glucose (01/04/2022 12:07 AM EDT) Glucose, POC 126 65 - 199 mg/dL [facility] Comment: Supplemental ranges: <140 mg/dL before meals <180 mg/dL all other times of the day Blood 01/04/2022 12:0 7 AM EDT 01/04/2022 12:07 AM EDT Moi Ledezma MD POINT OF CARE TEST O RDERABLES Performing Organization Address [facility] de Phone Number [facility] [place] [address] * CARDIAC CATHETERIZATION (01/03/2022 11:45 PM EDT) Anatomical Region Laterality Modality Other Narrative 01/03/2022 11:54 PM EDT ?[facility] ? Cardiac Catheterization/Intervention Report ? Patient Name: Afua Rosales. ? Procedure Date: 01/03/2022 ? A #: [id number] ? Primary Physician: Moi Ledezma ? Case #: [id number] ? File Name: [id number] ? Catheterization Order Number: [id number] ? [facility] ? Final Report [place], [place] ? Patient Name: ? Afua A. Silver ?ID#: ?[id number] ? : ?1975 ? Procedure Date: ? [...] was ?designated as ASA Class IV. The [facility] clinical frailty scale is 5: Mildly ?Frail. ? Diagnostic Tests: ?Electrocardiography: ? EKG was assessed by ECG. EKG was Abnormal. EKG showed ST Deviation ? >= 0.5 mm and other abnormality. ?Medications Prior to Procedure: ? Aspirin, Statin and Thrombolytic (any). ? Indications for Diagnostic Cath: ?The priority of the diagnostic procedure was Emergent. The indication for ?the catheter builder visit is ACS less than or equal [...] ?SH guiding catheter and a 3.5 Fr [facility] ??20 Mhz. ??Imaging ?was successful. ??Image quality was excellent. ??The mid RCA showed severe ?diffuse atherosclerotic plaque. ??Measurements were performed after ?pre-dilation. ?Post Intervention: The stent was well expanded and apposed. ?Intravascular Ultrasound was performed in the distal RCA using a 6 Fr JR ?4 SH guiding catheter and a 3.5 Fr [facility] ??20 Mhz. ?Imaging was successful. [...] dose administered prior to arrival in the catheter builder. ?Recommended anti-platelet/anti-thrombotic regimen: ?Start aspirin 81 mg daily now and continue for indefinitely. ?Start clopidogrel 75 mg daily now and continue for 12 months then stop. ?These recommendations are made at the time of the intervention. Patient ?and provider preferences or a changing clinical situation may require ?modification of this regimen. Consult [facility] [place]iology for ?questions. ?The 1 year [...] against any medical treatment. Consult ?http://tools.acc.org/DAPTriskapp/#!/content/calculator/ or [facility] ?Interventional Cardiology for questions ? Conclusions: ?* [...] Ledezma MD - 01/14/[address] [facility] Cardiac Catheterization/Intervention Report Patient Name: Afua RosalesMono Procedure Date: 01/03/2022 A #: [id number] Primary Physician: Moi Ledezma Case #: [id number] File Name: [id number] Catheterization Order Number: [id number] [facility] FinalReport [place], [place] Patient Name: Afua Rosales ID#:[id number] :1975 Procedure Date: January 03, 2022 Case [...] were performed on an emergent basis. History Afau Rosales is a 46 year old woman. The patient's smoking statusis Never. The patient has hypercholesterolemia managed with lipidtherapy. She has insulin dependent diabetes mellitus. The patient hassequelae from diabetes. She is also status post an acute ST elevationmyocardial infarction. Prior to the initiation of this procedure, the patientwas designated as ASA Class IV. The [facility] clinical frailty scale is 5:Mildly Frail. Diagnostic Tests: Electrocardiography: EKG was assessed by ECG. EKG was Abnormal. EKG showed STDeviation >= 0.5 mm and other abnormality. Medications Prior to Procedure: Aspirin, Statin and Thrombolytic (any). Indications for Diagnostic Cath: The priority of the diagnostic procedure was Emergent. Theindication for the catheter builder visit is ACS less than or equal [...] SH guiding catheter and a 3.5 Fr [facility] 20 Mhz.Imaging was successful. Image quality was excellent. The mid RCA showedsevere diffuse atherosclerotic plaque. Measurements were performed after pre-dilation. Post Intervention: The stent was well expanded and apposed. Intravascular Ultrasound was performed in the distal RCA using a 6Fr JR 4 SH guiding catheter and a 3.5 Fr [facility] 20 Mhz. Imaging was successful. Image quality was excellent. The distalRCA showed severe diffuse atherosclerotic plaque. Measurements were performed after pre-dilation. Post Intervention: The stent was well expanded and apposed. Indication for Intervention: Coronary intervention was indicated for primary therapy for an acute myocardial infarction. The priority for the procedure was Emergent.The [facility] indication for the procedure was STEMI [...] The lesion was predilated with a 2.00mm [id number] MM balloon with a maximum inflation pressure [...] dose administered prior to arrival in the catheter builder. Recommended anti-platelet/anti-thrombotic regimen: Start aspirin 81 mg daily now and continue for indefinitely. Start clopidogrel 75 mg daily now and continue for 12 months thenstop. These recommendations are made at the time of the intervention.Patient and provider preferences or a changing clinical situation mayrequire modification of this regimen. Consult [facility] [place]ventional Cardiologyfor questions. The 1 year bleeding [...] or against any medical treatment.Consult http://tools.acc.org/DAPTriskapp/#!/content/calculator/ or [facility] Interventional Cardiology for questions Conclusions: * Two [...] (ABNORMAL) POCT Glucose (01/03/2022 11:31 PM EDT) [facility] Signature Glucose, POC 200(H) 65 - 199 mg/dL [facility] Comment: Supplemental ranges: <140 mg/dL before meals <180 mg/dL all other times of the day Blood 01/03/2022 11:3 1 PM EDT 01/03/2022 11:31 PM EDT Moi Ledezma MD POINT OF CARE TEST O RDERABLES [facility] [place] [address] * (ABNORMAL) POCT Glucose (01/03/2022 10:56 PM EDT) Glucose, POC 265(H) 65 - 199 mg/dL [facility] Comment: Supplemental ranges: <140 mg/dL before meals <180 mg/dL all other times of the day Blood 01/03/2022 10:5 6 PM EDT 01/03/2022 10:56 PM EDT Moi Ledezma MD POINT OF CARE TEST O RDERABLES [facility] [place] [address] * (ABNORMAL) Point of Care Blood Gas Historical (01/03/2022 10:38 PM EDT) pH, POC 7.35 7.35 - 7.45 [facility] pCO2, POC 46(H) 35 - 45 mmHg [facility] pO2, POC 93 85 - 104 mmHg [facility] Base Excess, POC 0.0 -3.0 - 3.0 mmol/L [facility] Bicarbonate, POC 25.3 20.0 - 26.0 mmol/L [facility] Sodium, POC 141 135 - 145 mmol/L [facility] POC Potassium 3.7 3.5 - 5.0 mmol/L [facility] Ionized Calcium, POC 1.26 1.15 - 1.33 mmol/L [facility] POC Hematocrit 35.0 34.0 - 45.0 % [facility] POC Calc Hgb 11.9 11.2 - 15.7 g/dL [facility] Comment:The calculation of h emoglobin from hematocrit assumes a normal MCHC. POC Bgas Loc CC LAB [facility] Blood 01/03/2022 10:3 8 PM EDT 01/09/2022 12:00 PM EDT Ray Salomon MD CHEMISTRY ORDERABLES Performing Organization Address City/[facility]/ZIP Co de Phone Number [facility] [place] [address] * (ABNORMAL) POCT Glucose (01/03/2022 10:37 PM EDT) Glucose, POC 63(L) 65 - 199 mg/dL [facility] Comment: Supplemental ranges: <140 mg/dL before meals <180 mg/dL all other times of the day Blood 01/03/2022 10:3 7 PM EDT 01/03/2022 10:37 PM EDT Moi Ledezma MD POINT OF CARE TEST O RDERABLES Performing Organization Address [facility] Co de Phone Number [facility] [place] [address] documented in this encounter Visit Diagnoses Not [...] Tj Berry RN)[phone] (Given - Provider: Tj eBrry, GUSTAVO) 0003 (Given - Provider: Ivette Thakkar, [...] Routine documented in this encounter Care Teams Quality Auditor Relationship Specialty Start Date End Date Felisha Juan, DEMETRIS [address] [place] [address] PCP - General Family Medicine 10/29/15 01/29/22 documented as of this encounter
--- OUTSIDE RECORDS SUMMARY | 2024-04-29 00:49 | XMS_ITS | Encounter Summary ---
Author Organization [facility] [place] [address] Care Team Providers Care Tire Recapping Machine Operator Name Role Phone Felisha Juan APRN Primary Care Provider + [phone] Encounter Details Date Type Department Care Team (Late st Contact Info) Description 08/04/2017 [place]phone [place] [phone] Danielle Trejo, RN Social History Tobacco Use [...] on filedocumented in this encounter Care Teams Tire Recapping Machine Operator Relationship Specialty Start Date End Date Felisha Juan APRN [address] [place] [address] PCP - General Family Medicine 10/29/15 01/29/22 documented as of this encounter
--- OUTSIDE RECORDS SUMMARY | 2024-04-29 00:49 | XMS_ITS | Encounter Summary ---
Author Organization [facility] Address [facility] [place] [address] Care Team Providers Care Sap Pi Architect Name Role Phone Felisha Juan APRN Primary Care Provider + [phone] Encounter Details Date Type Department Care Team ([facility] st Contact Info) Description 03/03/2016 Telephone [place] [phone] Akanksha Beltrán LPN Social History Tobacco Use [...] endo nurse line from Chary Boyd at [facility]. Insurance will not cover humalog will cover Novolog. Okay to switch with dosing is needed. ext [phone] documented in this encounter Plan of Treatment Not on file documented as of this encounter Visit Diagnoses Not on filedocumented in this encounter Care Teams Sap Pi Architect Relationship Specialty Start Date End Date Felisha Juan, DEMETRIS [address] [place] [place] [address] PCP - General Family Medicine 10/29/15 01/29/22 documented as of this encounter
--- OUTSIDE RECORDS SUMMARY | 2024-04-29 00:49 | XMS_ITS | Encounter Summary ---
Author Organization [facility] Address [facility] [place] [address] Care Team Providers Care Lock Corner Machine Operator Name Role Phone Felisha Juan APRN Primary Care Provider + [phone] Encounter Details Date Type Department Care Team (Late st Contact Info) Description 01/03/2022 Notes Only Cardiology [facility] [place] [address] Madi Briceño MD [facility] [place] [address] Social History Tobacco Use Types Packs/Day Years [...] 8:25 PM Hospital to which patient presented: [facility] If Hospital to which patient presented= [facility]: ED Walk In Date and Time of [...] and inferior stemi STEMI Alert called: Yes Watchstander Activated by: Infant Babysitter Initial Disposition: Admit Watchstander documented in this encounter Plan of Treatment Not on file documented as of this encounter Visit Diagnoses Not on filedocumented in this encounter Care Teams Lock Corner Machine Operator Relationship Specialty Start Date End Date Felisha Juan, DEMETRIS [address] [place] [address] PCP - General Family Medicine 10/29/15 01/29/22 documented as of this encounter
--- OUTSIDE RECORDS SUMMARY | 2024-04-29 00:49 | XMS_ITS | Encounter Summary ---
Author Organization [facility] Address [facility] [place] [address] Care Team Providers Care Career Placement Specialist Name Role Phone Felisha Juan APRN Primary Care Provider + [phone] Encounter Details Date Type Department Care Team (Latest Contact Info) Description 04/18/2016 9:30 AM EDT Office [place] [address] Rosie Tao MD [facility] DR [place]OCR[place] [address] Type 1 diabetes mellitus with proliferative diabetic [...] management and to provide a review of correction diabetes care. Diabetes History: Kailey Hernandez has had diabetes Type 1 since age of 7 years. When initially diagnosed, she was extremely fatigued, had polyuria, weight loss, and polydypsia. She was followed by an director global market research- Dr Hernandez in [place], [place]. She is here for establishment of care since she has moved to [facility]. Her last visit was the [...] in 4 weeks, RTC in 4 months equipment operator intermodal yard diabetes care: Medications - Outpatient treatment regimen recommendations pending based on the hospital course. Monitoring - continue BG tid ac & hs Diet - low fat/low carb diet Exercise - weight-bearing exercise 30 min/day, as tolerated Thank you for the consult To be D/w Dr Ann, this was a resident only encounter Rosie Tao MD Endocrine Fellow Pager- [phone] Insulin Discharge Instructions . Instructions for Lantus [...] uncontrolled documented in this encounter Care Teams Career Placement Specialist Relationship Specialty Start Date End Date Felisha Juan, DEMETRIS [address] [place] [address] PCP - General Family Medicine 10/29/15 01/29/22 documented as of this encounter
--- OUTSIDE RECORDS SUMMARY | 2024-04-29 00:49 | XMS_ITS | Encounter Summary ---
Author Organization [facility] [place] [address] Care Team Providers Care Bone Tender Name Role Phone Felisha Juan DEMETRIS Primary Care Provider + [phone] Encounter Details Date Type Department Care Team (Latest Contact Info) Description 05/23/2019 8:30 AM EDT Office [place] [address] Francoise Tan APRN [facility] [address] [place]OCRINOLOG[place] [address] Type 1 diabetes mellitus with proliferative retinopathy [...] hypoglycemia and avoid severe hyperglycemia. She uses POI talking meter. Diabetes regimen: Basaglar 22 units [...] office visit with 28 minutes spent counseling ihtk-ij-zyar with patient in themanagement of glucose levels, reviewing prevention and treatment of hypoglycemia. She does rotate her injection sites. 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
--- OUTSIDE RECORDS SUMMARY | 2024-04-29 00:49 | XMS_ITS | Encounter Summary ---
Author Organization [facility] Address [facility] [place] [address] Care Team Providers Care Bucket Pusher Name Role Phone Carey Hall MD Primary Care Provider [phone] Reason for Visit * Reason Comments Diabetic Foot Care Encounter Details Date Type Department Care Team ([facility] Contact Info) Description 08/31/2014 10:00 AM EST Office Visit Podiatry at [address] [place] [address] Ritesh Mackey Jr., [address] [place] [place] [address] Dermatophytosis of nail; Pain in extremity, unspecified [...] on palpation. Nails display clinical signs of gllmlan-acjebrmuig-lmrmbl in appearance, thickened greater than 2mm, Brittle [...] uncontrolled documented in this encounter Care Teams Bucket Pusher Relationship Specialty Start Date End Date Carey Hall MD [address] [place] [address] PCP - General 06/25/10 10/28/15 documented as of this encounter
--- OUTSIDE RECORDS SUMMARY | 2024-04-29 00:50 | XMS_ITS | Encounter Summary ---
Author Organization [facility] Address [facility] [place] [address] Care Team Providers Care Gas And Oil Checker Name Role Phone Carey Hall MD Primary Care Provider [phone] Reason for Visit * Reason Comments Diabetic Foot Care Encounter Details Date Type Department Care Team ([facility] Contact Info) Description 07/09/2012 11:15 AM EST Office Visit Podiatry at [address] [place] [address] Ritesh Mackey Jr., [facility] [address] [place] [address] Other specified disease of nail; DM w/o [...] uncontrolled documented in this encounter Care Teams Gas And Oil Checker Relationship Specialty Start Date End Date Carey Hall MD [address] [place] [address] PCP - General 06/25/10 10/28/15 documented as of this encounter
--- OUTSIDE RECORDS SUMMARY | 2024-04-29 00:50 | XMS_ITS | Encounter Summary ---
Author Organization [facility] Address [address] [place] [address] Care Team Providers Care Paper Feeder Name Role Phone Unknown, Provider Primary Care Provider [phone] Encounter Details Date Type Department Care Team (Late st Contact Info) Description 12/04/2021 Lab Requisition [facility] Pathology & Laboratory Medicine - [facility] [address] [place] [address] Outr Resulting Lab, Provider Social History Tobacco [...] 4th Generation Negative Negative 12/05/2021 10:51 EDT [facility] Comment:If acute HIV-1 infec tion is suspected in a high risk patient, submit plasma specimen for HIV-1 RNA quantitation test. Blood VENOUS BLOOD / Unknown 12/04/2021 11:00 EDT 12/04/2021 22:05 EDT Narrative [facility] - 12/05/2021 10:51 EDT Fourth Generation assay performed on the Siemens Centaur XPT. Provider Outr Resulting Lab IMMUNOLOGY A ND SEROLOGY ORDERABLES [facility] [address] [place] [address] documented in this encounter Visit Diagnoses Not on filedocumented in this encounter Care Teams Paper Feeder Relationship Specialty Start Date End Date Unknown, Provider, PCP - General 01/18/16 documented as of this encounter
--- OUTSIDE RECORDS SUMMARY | 2024-04-29 00:50 | XMS_ITS | Encounter Summary ---
Author Organization [facility] Address [facility] [place] [address] Care Team Providers Care Concrete Mixing Plant Superintendent Name Role Phone Carey Hall MD Primary Care Provider [phone] Encounter Details Date Type Department Care Team (Late st Contact Info) Description 08/08/2010 11:00 AM EST Office Visit Podiatry [address] [place] [address] Ritesh Mackey Jr., [facility] [address] [facility] [address] Social History Tobacco Use Types Packs/Day Years Used Date Smoking Tobacco: Never Assessed Sex and Gender Information Value Date Recorded Sex Assigned at Not on file Gender Identity Not on file Sexual Orientation Not on file documented as of this encounter Plan of Treatment Not on file documented as of this encounter Visit Diagnoses Not on filedocumented in this encounter Care Teams Concrete Mixing Plant Superintendent Relationship Specialty Start Date End Date Carey Hall MD [address] [place] [address] PCP - General 06/25/10 10/28/15 documented as of this encounter
--- OUTSIDE RECORDS SUMMARY | 2024-04-29 00:50 | XMS_ITS | Encounter Summary ---
Author Organization [facility] Address [facility] [place] [address] Care Team Providers Care Roll Trucker Name Role Phone Carey Hall MD Primary Care Provider [phone] Reason for Visit * Reason Comments Routine Foot Care Encounter Details Date Type Department Care Team (Late st Contact Info) Description 04/11/2011 10:45 AM EDT Office Visit Podiatry [address] [place] [address] Ritesh Mackey Jr., DPM [address] [facility] [place] [address] Other specified disease of nail (Primary Dx) [...] encounter Miscellaneous Notes * Miscellaneous - Carrington, Corrective Therapy Aide - 05/01/2011 3:53 PM EDT documented in this encounter Plan of Treatment Not on file documented as of this encounter Visit Diagnoses Diagnosis Other specified disease of nail- Primary documented in this encounter Care Teams Roll Trucker Relationship Specialty Start Date End Date Carey Hall MD [address] [address] PCP - General 06/25/10 10/28/15 documented as of this encounter
--- OUTSIDE RECORDS SUMMARY | 2024-04-29 00:50 | XMS_ITS | Encounter Summary ---
Author Organization [facility] Address [address] [place] [address] Care Team Providers Care Manager Furniture Name Role Phone Unknown, Provider Primary Care Provider Encounter Details Date Type Department Care Team (Late st Contact Info) Description 12/04/2021 Lab Requisition [facility] Pathology & Laboratory Medicine - [facility] [address] [place] [address] Outr Resulting Lab, Provider Social History Tobacco [...] C Antibody Negative Negative 12/05/2021 11:10 EDT [facility] Blood VENOUS BLOOD / Unknown 12/04/2021 11:00 EDT 12/04/2021 21:57 EDT Provider Outr Resulting Lab CHEMISTRY & BLOOD GAS ORDERABLES [facility] [address] [place] [address] documented in this encounter Visit Diagnoses Not on filedocumented in this encounter Care Teams Manager Furniture Relationship Specialty Start Date End Date Unknown, Provider, PCP - General 01/18/16 documented as of this encounter
--- OUTSIDE RECORDS SUMMARY | 2024-04-29 00:50 | XMS_ITS | Encounter Summary ---
Author Organization [facility] Address [facility] [place] [address] Care Team Providers Care Corsets Salesperson Name Role Phone Carey Hall MD Primary Care Provider [phone] Encounter Details Date Type Department Care Team (Late st Contact Info) Description 02/07/2014 2:00 PM EDT Office Visit Podiatry at [address] [place] [address] Ritesh Mackey Jr., [address] [place] [place] [address] Dermatophytosis of nail; Pain in limb; DM [...] on palpation. Nails display clinical signs of ibxdwwi-tpdnsylhwv-kubqne in appearance, thickened greater than 2mm, Brittle [...] uncontrolled documented in this encounter Care Teams Corsets Salesperson Relationship Specialty Start Date End Date Carey Hall MD [address] [address] PCP - General 06/25/10 10/28/15 documented as of this encounter
--- OUTSIDE RECORDS SUMMARY | 2024-04-29 00:50 | XMS_ITS | Encounter Summary ---
Author Organization [facility] Address [facility] [place] [address] Care Team Providers Care Yard Labor Supervisor Name Role Phone Carey Hall MD Primary Care Provider [phone] Reason for Visit * Reason Comments Diabetic Foot Care Encounter Details Date Type Department Care Team ([facility] st Contact Info) Description 11/05/2012 2:45 PM EDT Office Visit Podiatry at [address] [place] [address] Ritesh Mackey Jr., [facility] [address] [place] [address] PODIATRY [address] Other specified disease of nail (Primary Dx) [...] Primary documented in this encounter Care Teams Yard Labor Supervisor Relationship Specialty Start Date End Date Carey Hall MD [address] [place] [address] PCP - General 06/25/10 10/28/15 documented as of this encounter
--- OUTSIDE RECORDS SUMMARY | 2024-04-29 00:50 | XMS_ITS | Encounter Summary ---
Author Organization Formerly [facility] Address [facility] [place] [address] Care Team Providers Care Laborer Tree Tapping Name Role Phone Carey Hall MD Primary Care Provider Reason for Visit * Reason Comments Nail Problem Encounter Details Date Type Department Care Team ([facility] Contact Info) Description 09/19/2011 10:15 AM EST Office Visit Podiatry at [address] [place] [address] Ritesh Mackey Jr., DPM [address] [place] [address] [place] [address] Other specified disease of nail (Primary Dx) [...] Primary documented in this encounter Care Teams Laborer Tree Tapping Relationship Specialty Start Date End Date Carey Hall MD [address] [place] [address] PCP - General 06/25/10 10/28/15 documented as of this encounter
--- OUTSIDE RECORDS SUMMARY | 2024-04-29 00:50 | XMS_ITS | Encounter Summary ---
Author Organization [facility] Address [facility] [address] Care Team Providers Care Model And Pattern Supervisor Name Role Phone Carey Hall MD Primary Care Provider [phone] Reason for Visit * Reason Comments Diabetic Foot Care Encounter Details Date Type Department Care Team ([facility] st Contact Info) Description 08/15/2013 9:30 AM EST Office Visit Podiatry at [address] [place] [address] Ritesh Mackey Jr., [facility] [address] [facility] [place] [address] Dermatophytosis of nail (Primary Dx); Pain in [...] on palpation. Nails display clinical signs of suoyvab-mecqptfxtq-fidoxj in appearance, thickened greater than 2mm, Brittle [...] clearly painful. This has been pretty dramatic exchange floor manager past couple of months documented in this encounter Plan of Treatment Not on file documented as of this encounter Visit Diagnoses Diagnosis Dermatophytosis of nail- Primary Pain in limb Type II or unspecified type diabetes mellitus without mention of complication, not stated as uncontrolled documented in this encounter Care Teams Model And Pattern Supervisor Relationship Specialty Start Date End Date Carey Hall MD [address] [address] PCP - General 06/25/10 10/28/15 documented as of this encounter
--- OUTSIDE RECORDS SUMMARY | 2024-04-29 00:50 | XMS_ITS | Encounter Summary ---
Author Organization [facility]ly [facility] Address [facility] [place] [address] Care Team Providers Care Intranet Support Name Role Phone Carey Hall MD Primary Care Provider [phone] Reason for Visit * Reason Comments Diabetic Foot Care Encounter Details Date Type Department Care Team ([facility] st Contact Info) Description 02/23/2012 4:00 PM EDT Office Visit Podiatry at [address] [place] [address] Ritesh Mackey Jr., DPM [address] [place] [address] [place] [address] Other specified disease of nail (Primary Dx) [...] encounter Miscellaneous Notes * Miscellaneous - Carrington, Printer Assistant - 03/05/2012 10:46 AM EDT documented in this encounter Plan of Treatment Not on file documented as of this encounter Visit Diagnoses Diagnosis Other specified disease of nail- Primary documented in this encounter Care Teams Intranet Support Relationship Specialty Start Date End Date Carey Hall MD [address] [place] [address] PCP - General 06/25/10 10/28/15 documented as of this encounter
--- OUTSIDE RECORDS SUMMARY | 2024-04-29 00:50 | XMS_ITS | Clinical Summary ---
Author Organization [facility] Address [address] [place] [address] Care Team Providers Care Peanut Separator Name Role Phone Unknown, Provider Primary Care [...] C Antibody Negative Negative 12/05/2021 11:10 EDT [facility] Blood VENOUS BLOOD / Unknown 12/04/2021 11:00 EDT 12/04/2021 21:57 EDT Provider Outr Resulting Lab CHEMISTRY & BLOOD GAS ORDERABLES [facility] [address] [place] [address] from Last 3 Months or Most Recently Relevant to Health Maintenance Care Teams Peanut Separator Relationship Specialty Start Date End Date Unknown, Provider, PCP - General 01/18/16
--- OUTSIDE RECORDS SUMMARY | 2024-04-29 00:50 | XMS_ITS | Encounter Summary ---
Author Organization [facility] Address [address] [place] [address] Care Team Providers Care Technical Programs Manager Name Role Phone Unknown, Provider Primary Care Provider Encounter Details Date Type Department Care Team (Late st Contact Info) Description 01/17/2016 Results Only [facility] [phone] Felsiha Mckinnon NP [address] [place] [address] Social History Tobacco Use Types Packs/Day Years [...] ? KAILEY HERNANDEZ ? Accession #: ? [id number] ? : ? 1975 (Age: 40) ??F [...] types 16,18,31,33,35, 39,45,51,52,56,58, 59,66, and 67 by public works director mediated amplification. Comments Document reviewed and electronically signed by: ? System Interface ? Report date: 02/01/2016 By the signature above, the attending physician certifies that he/she has personally conducted a gross and/or microscopic examination of the described specimens and rendered or confirmed the above diagnosis. End of Report [facility] 01/17/2016 01/18/2016 Felisha Koshowski OFFICE EQUIPMENT MECHANIC PATHOLOGY ORDERABLES [facility] [address] [place] [address] documented in this encounter Visit Diagnoses Not on filedocumented in this encounter Care Teams Technical Programs Manager Relationship Specialty Start Date End Date Unknown, Provider, PCP - General 01/18/16 documented as of this encounter
--- OUTSIDE RECORDS SUMMARY | 2024-04-29 00:50 | XMS_ITS | Referral Summary ---
Author Organization [facility] Address [address] [place] [address] Care Team Providers Care Biology Instructor Name Role Phone Unknown, Provider Primary Care [...] C Antibody Negative Negative 12/05/2021 11:10 EDT [facility] Blood VENOUS BLOOD / Unknown 12/04/2021 11:00 EDT 12/04/2021 21:57 EDT Provider Outr Resulting Lab CHEMISTRY & BLOOD GAS ORDERABLES [facility] [address] [place] [address] from Last 3 Months or Most Recently Relevant to Health Maintenance Care Teams Biology Instructor Relationship Specialty Start Date End Date Unknown, Provider, PCP - General 01/18/16
--- NOTE | 2024-04-29 07:00 | DI.MRI_ITS ---
Exam(s) MR LUMBAR SPINE WO/W EXAM: MR LUMBAR SPINE WO/W CLINICAL HISTORY: abn C spine MR,? myelitis vs syringomyelia,R93.7. TECHNIQUE: Multiplanar multisequence MRI of the Lumbar Spine was performed. CONTRAST MATERIAL: IV Contrast: 13 mL of Dotarem contrast administered. COMPARISON: No exams were available for comparison FINDINGS: Bones: The last intervertebral disc space is designated the L5/S1 level for the numbering purpose of this examination. The vertebral body heights are well maintained. Alignment is satisfactory. The sig nal characteristics are unremarkable. Cord: The conus tip ends at the T12 level. It is of normal size and signal intensity. T12-L1: No disc herniations or bulges are present. No central spinal canal or neural foraminal stenos is. L1-2: No disc herniations or bulges are present. No central spinal canal or neural foraminal stenosis . L2-3: No disc herniations or bulges are present. No central spinal canal or neural foraminal stenosis . L3-4: No disc herniations or bulges are present. No central spinal canal or neural foraminal stenosis .There are degenerative changes of the facets. L4-5: No disc herniations or bulges are present. No central spinal canal or neural foraminal stenosis .There are degenerative changes of the facets present. L5-S1: No disc herniations or bulges are present. No central spinal canal or neural foraminal stenosi s. Soft tissues: The visualized SI joints and sacrum are well maintained. The paraspinal soft tissues ar e unremarkable. There is no evidence of suspicious enhancement. IMPRESSION: 1. No focal disc herniation, central spinal canal or neural foraminal stenosis. 2. Unremarkable appearance of the distal spinal cord. 3. No abnormal enhancement is identified. DATA REPOSITORY:
--- NOTE | 2024-04-29 07:00 | DI.MRI_ITS ---
Exam(s) MR THORACIC SPINE WO/W EXAM: MR THORACIC SPINE WO/W CLINICAL HISTORY: abn C spine MR,? myelitis vs syringomyelia,R93.7. TECHNIQUE: Multiplanar multisequence MRI of the Thoracic spine was performed. CONTRAST MATERIAL: IV Contrast: 13 mL of Dotarem contrast administered. COMPARISON: MR MR CERVICAL SPINE WO from 04/01/2024 FINDINGS: Bones: The vertebral body heights are well maintained. Alignment is satisfactory. The signal characte ristics are unremarkable. Cord: There is a central cavity lesion seen within the thoracic spinal cord extending from the T2 thr ough T6 left. It measures 7.4 cm in length. At the T2-T3 disc level, the syrinx measures 7 mm transve rse by 3 mm AP. Following contrast administration no enhancement is seen. The remainder of the spinal cord is unremarkable. Discs: No disc herniation or bulge is present. Soft tissues: Normal. There is no evidence of suspicious enhancement. 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 No en hancement is seen following contrast administration. DATA REPOSITORY:
[2024-04-29] MEDS: Normal Saline Flush 10 ML SYR IVP (12:46)
[2024-04-29] MEDS: Gadoterate meglumine 20 ML SYRINGE 13 ML IVP (12:47)
== END 2024-04-29 01:05 ==
LOC: DI 00:45
PROVIDERS: PCP Nurse Practitioner; Visit Provider Nurse Practitioner
DX: G95.0 Syringomyelia and syringobulbia (principal)
CPT/HCPCS: 72158; 72157

== ENCOUNTER → 2024-05-11 09:27 | Outpatient (BNVA) | payer MEDICARE, MEDICAID, SELFPAY | PROVIDERS: PCP Nurse Practitioner; Referring Provider Physician Assistant; Visit Provider Podiatrist | DX: I73.89 Other specified peripheral vascular diseases (principal); L60.3 Nail dystrophy; E10.42 Type 1 diabetes mellitus with diabetic polyneuropathy; N18.1 Chronic kidney disease, stage 1; B35.1 Tinea unguium | CPT/HCPCS: 11721 ==

== ENCOUNTER → 2024-05-16 10:37 | Outpatient (BNVA) | payer MEDICARE, MEDICAID, SELFPAY | PROVIDERS: PCP Nurse Practitioner; Referring Provider Nurse Practitioner; Visit Provider Surgery | DX: R13.10 Dysphagia, unspecified (principal); K21.9 Gastro-esophageal reflux disease without esophagitis; R79.89 Other specified abnormal findings of blood chemistry; E10.65 Type 1 diabetes mellitus with hyperglycemia; E10.42 Type 1 diabetes mellitus with diabetic polyneuropathy; E10.43 Type 1 diabetes mellitus with diabetic autonomic (poly)neuropathy; N18.1 Chronic kidney disease, stage 1; I25.10 Atherosclerotic heart disease of native coronary artery without angina pectoris; I73.9 Peripheral vascular disease, unspecified; Z95.5 Presence of coronary angioplasty implant and graft; R11.2 Nausea with vomiting, unspecified | CPT/HCPCS: 99214 ==

== ENCOUNTER 2024-05-27 19:21 | Emergency (ER) | payer MEDICARE, MEDICAID, SELFPAY ==
[2024-05-27] VITALS (17 sets, daily range): BP systolic 114–126; BP diastolic 40–51; PULSE 79–86; RESP 16–20; TEMP 36.2–36.6; O2SAT 98–100
--- NOTE | 2024-05-27 19:37 | DI.CT_ITS ---
Exam(s) CT BRAIN NECK CTA EXAM: CT BRAIN NECK CTA CLINICAL HISTORY: Headache, Visual disturbance. TECHNIQUE: Imaging Protocol: Axial CT angiography was performed with multi-slice acquisition and mu lti-planar and/or 3D reconstructions. CONTRAST MATERIAL: Intravenous: Omnipaque 350 Contrast volume:structured data in ml COMPARISON: No exams were available for comparison FINDINGS: CTA Neck W: Aortic arch anatomy: The aortic arch anatomy is conventional and there is no significant stenosis at the origin of the great vessels off of the aortic arch. No intimal flap evident. Anterior circulation: Both common carotid arteries ascend with normal luminal diameters. At the level the carotid bulbs and proximal internal carotid arteries there is no significant plaque and no hemodynamically significant stenosis evident. Posterior circulation: Both vertebral arteries originate in conventional fashion off of the subclavian arteries and there is no obvious stenosis at the origin of the vertebral arteries. Both vertebral arteries exhibit normal luminal diameters within the foramen transversarium. The left vertebral artery is dominant. Both vertebral arteries contribute to the formation of the basilar artery at the skull base. CTA Brain W: Anterior circulation: Both internal carotid arteries are patent in the skull base. The intra cavernous internal carotid ar teries are peripherally calcified but there does not appear to be a critical luminal stenosis at this level. Contrast flow is seen within both ophthalmic arteries which originated conventional fashion off of the intra cavernous ICAs. The supraclinoid ICAs are patent. The left A1 segment is dominant. Flow is seen in both anterior ce rebral arteries. There is no aneurysm at the level of the anterior communicating artery. Both middle cerebral arteries are patent with no evidence of significant stenosis nor intraluminal th rombus. There also no aneurysms of these vessels. Posterior circulation: The basilar artery ascends in the midline. Distally it gives off patent bilateral superior cerebella r arteries and above this level the basilar artery terminates as patent bilateral posterior cerebral arteries. Flow into the commercial development manager is added to by posterior communicating arteries on both sides the circl e-of-Elizondo. There is no evidence of aneurysm at the tip of the basilar artery nor elsewhere in the dergaz-vw-Slne is. CT BRAIN: There is no evidence of intracranial hemorrhage, mass effect, or shift of midline structures. There are no extra-axial fluid collections. Ventricles are not enlarged or shifted. There are no ring enh ancing lesions in the brain and no abnormal meningeal enhancement. IMPRESSION: 1. Patent carotid arteries in the neck. No hemodynamically significant stenosis. 2. Patent vertebral arteries. 3. Patent intracranial arteries. The intracavernous internal carotid arteries are peripherally calci fied but there does not appear to be a critical stenosis within these vessels at this level. 4. No aneurysms nor obvious vascular malformations. No ring enhancing lesions in the brain. No acut e intracranial findings. RADIATION DOSE DELIVERED: 1,997.51mGy.cm Total DLP DATA REPOSITORY: All CT scans at this facility are submitted to the National Radiology Data Registry (NRDR) Dose Index Registry (DIR) with the [employer] (A[employer]). RADIATION OPTIMIZATION: All CT scans at this facility use at least one of these dose optimization te chniques: automated exposure control; mA and/or kV adjustment per patient size (includes targeted exa ms where dose is matched to clinical indication); or iterative reconstruction.
--- NOTE | 2024-05-27 19:40 | ED.GENADUL_ITS ---
Discharge Plan Disposition Patient Disposition: Home Condition: Stable Discharge Details Clinical Impression: Migraine, UTI (urinary tract infection) Primary Care Provider: Karie Lindsey ED Provider: Cassandra Henson Home Meds and New Rx's Prescriptions: New cephalexin 500 mg capsule 500 mg PO BID 7 Days Qty: 14 0RF Rx Instructions: Take 1 capsule by mouth twice daily for the next 7 days Continued Jardiance 10 mg tablet 10 mg PO DAILY MDD 10 mg 90 Days Qty: 90 4RF Rx Instructions: Take 10 mg tablet once daily in the morning as directed. (DME) Ketone Urine Test Strip See Rx Instructions .Route Qty: 50 4RF Rx Instructions: As directed (DME) Novopen Echo Insulin Pen See Rx Instructions .Route Qty: 1 0RF Rx Instructions: Use as directed, training in person. insulin aspart U-100 [Novolog PenFill U-100 Insulin] 100 unit/mL cartridge 5 unit subcut TID MDD 15 90 Days Qty: 15 12RF Rx Instructions: Inject 5 units or amount directed by sliding scale subcutaneously with meals. albuterol sulfate 90 mcg/actuation HFA aerosol inhaler 2 puff inhalation Q6H PRN (Reason: shortness of breath or wheezing) Qty: 8.5 1RF pantoprazole [Protonix] 40 mg tablet,delayed release (DR/EC) 40 mg PO DAILY Qty: 30 12RF (DME) Ketostix Strip See Rx Instructions .Route Rx Instructions: As directed aspirin [Children's Aspirin] 81 mg tablet,chewable 81 mg PO DAILY metoprolol succinate 25 mg tablet extended release 24 hr 12.5 mg PO DAILY Qty: 90 0RF multivitamin with folic acid [Tab-A-Aaron] 400 mcg tablet 1 tab PO DAILY Patient Comments: TAKE ONE TABLET BY MOUTH EVERY DAY Fiasp FlexTouch U-100 Insulin 100 unit/mL (3 mL) insulin pen 1 sliding scale dose SUBCUT AC Patient Comments: INJECT BASED ON CARBS WITH MEALS AND SNACKS RATIO 1:10G AND COREECT FOR BG GREATER THAN 150 BASED ON ISF 1:25 MAX DAILY DOSE 50 UNITS atorvastatin 80 mg tablet 80 mg PO DAILY Patient Comments: Take 1 tablet by mouth every evening insulin glargine [Basaglar KwikPen U-100 Insulin] 100 unit/mL (3 mL) insulin pen 20 unit SUBCUT DAILY Patient Comments: INJECT 22 UNITS UNDER THE SKIN EVERY MORNING magnesium oxide 400 mg (241.3 mg magnesium) tablet 400 mg PO DAILY Qty: 14 0RF Discharge Instructions Instructions: Headache, Adult ED, Urinary Tract Infection, Adult ED Additional Instructions: No evidence of intracranial abnormality or stroke at this time. You do have a urinary tract infection. Please take the antibiotics with yogurt or probiotic as directed. You were given the first dose here in the department. Follow up with primary care provider in 3-5 days. Return to ED sooner if any worsening or concerns. Please take Tylenol or Ibuprofen with food every 4-6 hours as needed for pain and swelling. Increase oral fluids. Referrals: Karie Lindsey NP [Primary Care Provider] - 5 days HPI General Mode of arrival: EMS . Date/Time Provider Initiated Documentation: 05/27/24 19:26 . Limitations to Documentation: no limitations . Information obtained by: patient, EMS, RN notes reviewed and old records reviewed . HPI Narrative: 49-year-old female presents to the ER accompanied by EMS with a chief complaint sudden onset of headache and sensitivity to light. Patient reports pain that radiates up from the back of her neck to the top of her head. She did take Tylenol prior to arrival with little to no relief. No fever or chills, she does report some sensitivity to touch of the neck. She does have a history of a lesion date T3 which was noted on MRI in April of this year at [facility]. She is alert and oriented x 3, no focal neurodeficits noted. Past medical history includes type 1 diabetes, high cholesterol, hypertension, cervical cancer partial hysterectomy. Related Data Home Medications ?Medication ?Instructions ?Recorded ?Confirmed acetone (urine) test (Ketostix 01/29/22 05/17/24 strips) aspirin 81 mg chewable tablet 81 mg PO DAILY 01/29/22 05/27/24 (Children's Aspirin) atorvastatin 80 mg tablet 80 mg PO DAILY 02/22/22 05/27/24 insulin glargine 100 unit/mL (3 20 unit subcut DAILY 02/22/22 05/27/24 mL) subcutaneous pen (Basaglar KwikPen U-100 Insulin) magnesium oxide 400 mg (241.3 mg 400 mg PO DAILY #14 tabs 04/23/22 05/27/24 magnesium) tablet acetone (urine) test (Ketone Urine #50 ea 02/26/24 05/17/24 Test strips) empagliflozin 10 mg tablet 10 mg PO DAILY 90 days #90 tabs 02/26/24 05/27/24 (Jardiance) insulin aspart 1 sliding scale dose subcut AC 03/18/24 05/27/24 (niacinamide)(U-100) 100 unit/mL(3 mL) subcutaneous pen (Fiasp FlexTouch U-100 Insulin) multivitamin with folic acid 400 1 tab PO DAILY 03/18/24 05/27/24 mcg tablet (Tab-A-Aaron) albuterol sulfate 90 mcg/actuation 2 puff inhalation Q6H PRN 03/24/24 05/27/24 aerosol inhaler shortness of breath or wheezing #8.5 grams insulin admin supplies (Novopen #1 ea 03/25/24 05/17/24 Echo subcutaneous) insulin aspart U-100 100 unit/mL 5 unit (0.05 mL) subcut TID 90 03/25/24 05/27/24 subcutaneous cartridge (Novolog days #15 mL PenFill U-100 Insulin aspart) metoprolol succinate 25 mg 12.5 mg (1/2 x 25 mg) PO DAILY #90 04/18/24 05/27/24 tablet,extended release 24 hr tabs pantoprazole 40 mg tablet,delayed 40 mg PO DAILY #30 tabs 05/16/24 05/27/24 release (Protonix) cephalexin 500 mg capsule 500 mg PO BID UTI 7 days #14 caps 05/27/24 Previous Rx's ?Medication ?Instructions ?Recorded magnesium oxide 400 mg (241.3 mg 400 mg PO DAILY #14 tabs 04/23/22 magnesium) tablet acetone (urine) test (Ketone Urine #50 ea 02/26/24 Test strips) empagliflozin 10 mg tablet 10 mg PO DAILY 90 days #90 tabs 02/26/24 (Jardiance) albuterol sulfate 90 mcg/actuation 2 puff inhalation Q6H PRN 03/24/24 aerosol inhaler shortness of breath or wheezing #8.5 grams insulin admin supplies (Novopen #1 ea 03/25/24 Echo subcutaneous) insulin aspart U-100 100 unit/mL 5 unit (0.05 mL) subcut TID 90 03/25/24 subcutaneous cartridge (Novolog days #15 mL PenFill U-100 Insulin aspart) metoprolol succinate 25 mg 12.5 mg (1/2 x 25 mg) PO DAILY #90 04/18/24 tablet,extended release 24 hr tabs pantoprazole 40 mg tablet,delayed 40 mg PO DAILY #30 tabs 05/16/24 release (Protonix) cephalexin 500 mg capsule 500 mg PO BID UTI 7 days #14 caps 05/27/24 Allergies Allergy/AdvReac Type Severity Reaction Status Date / Time No Known Allergies Allergy Verified 05/27/24 20:25 General Stated Complaint: Headache MITCHELL: 3 Review of Systems All systems reviewed & are unremarkable except as noted in HPI and below Constitutional Constitutional: Reports as per HPI, Denies fever(s) and Reports headache(s) Eyes Eyes: Reports photophobia ENT Ears, Nose, Mouth, and Throat: Reports headache(s) Neurologic Neurologic: Reports headache(s) and Denies localized weakness Exam Narrative Exam Narrative: Constitutional: Alert and oriented x3. Appears stated age. Normal body habitus. Head: Normocephalic, no trauma. Eyes: Pupils PERRL, Red reflex noted, EOM's intact. Eyelids symmetrical without lesions, discharge, or swelling. ENT: Bilateral TM's WNL, External ear normal to inspection, no mastoid TTP, swelling, or erythema, Nasal turbinates WNL, no nasal discharge. Normal dentition, Posterior pharynx WNL, no exudate. Chest: RRR, Normal S1, S2, distal pulses intact. Resp: Lungs clear to auscultation bilaterally, no wheezes, rales, or rhonchi. Abdomen: Soft, non-distended, Normoactive bowel sounds all 4 quads. Musculoskeletal: Normal gait, Moves all 4 extremities without difficulty. Skin: No suspicious rashes or lesions. Capillary refill less than 2 sec. Neurologic: Cranial nerves II-XII intact. Alert and oriented x 3. Motor: No deficits noted. Sensory: Intact bilaterally all 4 extremities. Hematologic/Lymphatic: No ecchymosis, no lymphadenopathy. Course Vital Signs Vital signs: Vital Signs Temperature 36.2 C L 05/27/24 19:24 Pulse 84 05/27/24 19:24 Respiratory Rate 16 05/27/24 19:24 Blood Pressure 121/51 L 05/27/24 19:24 Pulse Oximetry 100 05/27/24 19:24 Temperature 36.2 C L 05/27/24 19:24 Temperature Source Oral 05/27/24 19:24 Pulse 84 05/27/24 19:24 Respiratory Rate 16 05/27/24 19:24 Respiratory Effort Normal 05/27/24 19:26 Blood Pressure 121/51 L 05/27/24 19:24 Blood Pressure Position Sitting 05/27/24 19:24 Pulse Oximetry 100 05/27/24 19:24 Oxygen Delivery Method Room Air 05/27/24 19:24 Oxygen Flow Rate 0 05/27/24 19:24 Pain Level 10 05/27/24 19:24 Medical Decision Making 49-year-old female presents to the ER accompanied by EMS with a chief complaint sudden onset of headache and sensitivity to light. Patient reports pain that radiates up from the back of her neck to the top of her head. She did take Tylenol prior to arrival with little to no relief. No fever or chills, she does report some sensitivity to touch of the neck. She does have a history of a lesion date T3 which was noted on MRI in April of this year at [facility]. She is alert and oriented x 3, no focal neurodeficits noted. Past medical history includes type 1 diabetes, high cholesterol, hypertension, cervical cancer partial hysterectomy. Labs ordered, CTA of brain and neck, CBC CMP urinalysis. Compazine Benadryl and Zofran ordered. On patient reevaluation she is sleeping breathing eupneic, she reports that her headache is gone and she feels much better. CTA within normal limits. Will discharge patient home do suspect migraine. Patient also does have evidence of urinary tract infection will give cephalexin. Patient discharged into the care of her family. This text was generated using [employer] system, please disregard any oddities of phrase or misspellings. Medical Records Medical records reviewed: Yes I reviewed the patient's medical records. Medical records narrative: Patient had MRI done in April of this year at [facility]. Lab Data Lab results reviewed: Yes I reviewed the patient's lab results. Labs: 05/27/24 20:06 Urine - Reflex from Ua Urine Culture - Pending Laboratory Tests Range/Units 05/27/24 05/27/24 19:34 20:06 WBC (4.4-10.8) 10^3/uL 4.66 RBC (3.93-5.22) 10^6/uL 3.35 L Hgb (11.2-15.7) g/dL 10.6 L Hct (36.0-46.0) % 31.7 L MCV (80-95) fL 95 MCH (27.0-33.0) pg 31.6 MCHC (32.0-36.0) % 33.4 RDW (11.7-14.6) % 12.5 Plt Count (130-400) 10^3/uL 148 MPV (8.0-11.0) fL 9.4 Immature Gran % % 0.2 Neutrophils % % 47.1 Lymphocytes % % 34.1 Monocytes % % 15.9 Eosinophils % % 2.1 Basophils % % 0.6 Nucleated RBC % (0.0-0.3) % 0.0 Absolute Neutrophils (1.2-6.7) 10^3/uL 2.19 Absolute Lymphocytes (1.2-3.4) 10^3/uL 1.59 Absolute Monocytes (0.1-0.8) 10^3/uL 0.74 Absolute Eosinophils (0.0-0.7) 10^3/uL 0.10 Absolute Basophils (0.0-0.2) 10^3/uL 0.03 Sodium (136-145) mmol/L 142 Potassium (3.5-5.1) mmol/L 4.2 Chloride (98-107) mmol/L 103 Carbon Dioxide (21.0-32.0) mmol/L 31.6 Anion Gap (3-11) mmol/L 7.4 BUN (7-18) mg/dL 18 Creatinine (0.55-1.02) mg/dL 1.0 Est GFR (CKD-EPI 2020) (mL/min/1.73m2) 68.63 Glucose (74-106) mg/dL 99 Calcium (8.5-10.1) mg/dL 9.6 Total Bilirubin (0.2-1.0) mg/dL 0.50 AST (15-37) U/L 39 H ALT (14-59) U/L 48 Alkaline Phosphatase (46-116) U/L 127 H Total Protein (6.4-8.2) g/dL 8.0 Albumin (3.4-5.0) g/dL 3.8 Urine Color (Yellow) Yellow Urine Clarity (Clear) Clear Urine pH (5-8) 7.0 Ur Specific [place] (1.005-1.025) 1.025 Urine Protein (Neg-Trace) mg/dL Negative Urine Ketones (Negative) mg/dL Negative Urine Blood (Negative) Trace-intact H Urine Nitrite (Negative) Negative Urine Bilirubin (Negative) Negative Urine Urobilinogen (Up to 0.2) mg/dL 0.2 Ur Leukocyte Esterase (Negative) Small H Urine RBC (0-2) HPF 3-5 H Urine WBC (0-5) HPF 10-20 H Ur Epithelial Cells (Negative) HPF Rare Urine Crystals (Negative) HPF Negative Urine Bacteria (Negative) HPF Few Urine Casts (Negative) LPF Negative Urine Mucus (Negative) Negative Ur Culture Indicated? Yes Urine Glucose (Negative) mg/dL 100 H Quality:SDOH Health Related Social Needs: No Data to Display PFSH All Active Problems (Updated 05/27/24 @ 22:08 by Cassandra Henson NP) UTI (urinary tract infection) (Acute) Migraine (Chronic) Poorly controlled type 1 diabetes mellitus with autonomic neuropathy (Acute) N&V (nausea and vomiting) (Acute) Abdominal pain (Acute) Chronic GERD (Acute) Elevated LFTs (Acute) PAD (peripheral artery disease) (Acute) ADIEL - done at [facility] surgical 01/28/24 Dysphagia (Acute) DKA (diabetic ketoacidosis) (Acute) Elevated TSH (Acute) Hx of tonsillectomy (Chronic) Atherosclerosis of coronary artery without angina pectoris (Acute) Retinopathy due to secondary diabetes mellitus (Acute) Gastroesophageal reflux disease without esophagitis (Acute) Mild intermittent asthma (Acute) Hyperlipemia (Acute) H/O heart artery stent (Chronic) 2 Stents at [facility] 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 of right ear (Acute) Nail dystrophy (Acute) Type 1 diabetes mellitus with diabetic polyneuropathy (Acute) Retinopathy (Acute) Type 1 diabetes mellitus (Acute) Asthma (Chronic) GERD (gastroesophageal reflux disease) (Chronic) CAD (coronary artery disease), [place] coronary artery (Acute) Neurogenic bladder (Acute) IDDM (insulin dependent diabetes mellitus) (Chronic) Nonsustained paroxysmal ventricular tachycardia (Acute) Vitamin D deficiency (Acute) Neuropathy (Acute) Chronic kidney disease, stage I (Acute) Hearing loss (Acute) Blind right eye (Acute) Cellulitis of foot (Acute) Medical History Hypomagnesemia Cancer of cervix Hyperkalemia Visual loss Acute pain in female pelvis Elevated troponin History of deep vein thrombophlebitis of lower extremity Surgical History Hx of LASIK Hx of section At [facility] 2007 History of partial hysterectomy Family History Father Asthma Diabetes Heart disease Hypertension Maternal Aunt Breast cancer Mother Hypertension Heart disease Maternal Aunt Breast cancer COPD (chronic obstructive pulmonary disease) Maternal Aunt Diabetes Social History Smoking/Tobacco Use Status: Never Second Hand Exposure: Yes Smoking risk assessment performed?: Yes Alcohol Intake: never Drug use: Never Details: edibles Adopted: No Caregiver/Support person: Yes (significant other) Foster care: No Household members: significant other and children Housing: apartment Number of Children: 1 number of grandchildren: 0 Communication Needs: Hard of Hearing and Blind Education Level: high school Do you need help understanding health information?: Often current occupation: Disabled Pets and animals: Yes (1 Cat, 2 Guinea Pigs) Pets and animals: cat(s) and guinea pig(s) Do you think of yourself as: straight/heterosexual Current gender identity: female What is your relationship status?: living with partner How often do you talk on the phone with friends or family?: three or more times per week How often do you get together with friends or relatives?: three or more times per week How often do you attend anglican or jew services?: decline to answer Do you belong to any clubs or organized social groups?: no Panel score (0-1 are the most socially isolated patients): 2 What type of physical activity do you participate in: walking Duration: 15-30 minutes/day Frequency: daily Trina/Anglican: None Seatbelt use: always Drive intox or ride w/intox mule driver: No Do you feel safe at home: Yes Do you feel safe in your relationship?: Yes Female Reproductive History Menstrual Menopause type: surgical History History 14 Para Hx # Term Pregnancies Multiple births Hx # Pregnancies 1 Ectopic pregnancies AB induced Hx Number of Living Children AB spontaneous
--- OUTSIDE RECORDS SUMMARY | 2024-05-27 19:44 | XMS_ITS | Encounter Summary ---
Author Organization [facility]ly [facility] Address [facility] [place] [address] Care Team Providers Care Composite Laminator Name Role Phone Jose Pittman Primary Care Provider [phone] Reason for Referral * Consultation (Routine) - Closed Specialty Diagnoses / Procedures Referred By Chip sebastian Referred To Contact Otolaryngology Diagnoses 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 of right ear Tiffanie Lucero APRN [address] [place] [address] [place] [address] Tj Gray MD [facility] [place] [address] Referral ID Status Reason Start Date Expiration Date V isits Requested Visits Authorized [id number] Closed Consult, Test & Treat PCP Updated and/or Approved 08/05/2023 01/02/2024 6 6 Encounter Details Date Type Department Care Team (Latest Contact Info) Description 08/11/2023 Transcribe Orders eDH Incoming Referrals [phone] Tiffanie Lucero APRN [address] [place] [address] [place], [place] [id number] Mixed conductive and sensorineural hearing loss of [...] ear documented in this encounter Care Teams Composite Laminator Relationship Specialty Start Date End Date Jose Pittman PA [address] [place] [address] PCP - General Internal Medicine 01/30/22 04/01/24 documented as of this encounter
--- OUTSIDE RECORDS SUMMARY | 2024-05-27 19:44 | XMS_ITS | Encounter Summary ---
Author Organization [facility] [place] [address] Care Team Providers Care Senior Mainframe Developer Name Role Phone Karie Lindsey APRN Primary Care Provider [phone] Reason for Referral * Consultation (Routine) - Authorized Specialty Diagnoses / Procedures Referred By Chip sebastian Referred To Contact Endocrinology Diagnoses Type 1 diabetes mellitus with hyperglycemia Type 1 diabetes mellitus with diabetic polyneuropathy Diabetic ketoacidosis without coma associated with type 2 diabetes mellitus POORLY CONTROLLED DIABETES, RECENT IN PT ADMISSION FOR DKA Fe Louis, DEMETRIS [address] [place] [address] [facility] Endocr[facility]ology [address] [place] [phone] Referral ID Status Reason Start Date Expiration Date Visits Requested Visits Authorized [id number] Authorized Consult, Test & Treat PCP Updated and/or Approved 03/24/2024 03/24/2025 6 6 Encounter Details Date Type Department Care Team (Latest Contact Info) Description 04/11/2024 Transcribe Orders eDH Incoming Referrals [phone] Karie Lindsey APRN [address] [place], [place] [id number] Type 1 diabetes mellitus with hyperglycemia; Type [...] mellitus documented in this encounter Care Teams Senior Mainframe Developer Relationship Specialty Start Date End Date Karie Lindsey APRN [address] [place] [address] PCP - General Internal Medicine 04/02/24 documented as of this encounter
--- OUTSIDE RECORDS SUMMARY | 2024-05-27 19:44 | XMS_ITS | Encounter Summary ---
Author Organization [facility] Address [facility] [place] [address] Care Team Providers Care Buyer Agent Name Role Phone Felisha Juan APRN Primary Care Provider [phone] Reason for Referral * Consultation (Routine) - Closed Specialty Diagnoses / Procedures Referred By Contact Referred To Contact Cardiac Rehabilitation Diagnoses ST elevation myocardial infarction involving right coronary artery Marc Bowles MD [facility] [place] [address] Cardiac Rehab, [address] [address] Referral ID Status Reason Start Date Expiration Date V isits Requested Visits Authorized [id number] Closed Consult, Test & Treat 01/06/2022 01/06/2023 36 36 * Consultation (Routine) - Closed Specialty Diagnoses / Procedures Referred By Contac t Referred To Contact Diagnoses ST elevation myocardial infarction involving right coronary artery Marc Bowles MD [facility] [place] [address] [place], [place] Referral ID Status Reason Start Date Expiration Date V isits Requested Visits Authorized [id number] Closed Consult, Test & Treat 01/06/2022 07/05/2022 1 1 Reason for Visit * Auth/Cert Specialty Diagnoses / Procedures Referred By Contac t Referred To Contact Diagnoses STEMI (ST elevation myocardial infarction) STEMI Procedures CARDIAC CATHETERIZATION Geraldo Salomon MD [facility] [address] [facility] Referral ID Status Reason Start Date Expiration Date Visits Re quested Visits Authorized [id number] 1 1 Encounter Details Date Type Department Care Team (Latest Contact Info) Description 01/03/2022 10:19 PM EDT - 01/06/2022 3:03 PM EDT Hospital [place] [address] Moi Ledezma MD [facility] [address] Geraldo Salomon MD [facility] [address] ST elevation myocardial infarction involving right coronary [...] Afua Rosales Patient Age: 46 y.o. Language: Moldovan Race: White Ethnicity: Not nor Admit date: [...] will need follow up with cardiology at [facility] as well as to establish [...] made her nauseous. ?? On arrival to [facility], she was afebrile, BP was 95/54, she was oxygenating normally on room air. She was infused with 1L IV fluids, given 25 mg of aspirin (per [facility] discharge note). The on-call university teacher at [facility] was contacted, she was given 300 mg of Plavix, aspirin, heparin with bolus and drip. She was also given tecteplase 35mg. ?? On arrival to [facility] computer lab para professional, she underwent LHC and received TRACIE x2 [...] for you to establish care with a prototype sewer at [facility] as well as a referral [...] appointments: During 8am-5pm Thursday through Thursday call [phone] to speak with a nurse in the cardiology clinic All other times call [phone] and ask to speak to the university teacher cook mayonnaise. Activity level: - No heavy lifting (more [...] none Follow up Appointments: No future appointments. Welder Fitter Arc: You will be contacted by [facility] to schedule a cardiology appointment to establish care. PCP: Felisha Juan APRN at [phone] Your Inpatient Doctor(s) at [facility]: Geraldo Salomon MD - Attending physician Cam David MD - Manager Travel physician Your Primary Care Provider: Felisha Juan APRN [address] [place] [id number] For questions regarding issues relating to your hospitalization on the Hospital Medicine Service, please contact your inpatient physician through the [facility] Medical Office Technologist [phone]. Issues after hours and on weekends will be handled by the Hospitalist staff on-call. General Instructions None Future Appointments and Orders Future Orders Complete By Expires Referral to Cardiac Rehab [[id number] Custom] As directed Process Instructions: If no progress note charted, please enter Clinical details in comments. Scheduling Instructions: Questions: My question or request is: cardiac rehab referral s/p STEMI, she would benefit from location close to [facility] Referral to Cardiology [REF12 Custom] As directed Process Instructions: If no progress note charted, please enter Clinical details in comments. Scheduling Instructions: Questions: My question or request is: establish care after inferoposterior stemi Provider Contact Information: Felisha Juan APRN [address] [facility] [address] Discharge References/Attachments: Discharge References/Attachments None Associated attestation - Geraldo Salomon MD - 01/06/2022 1:51 PM EDT Dear Colleagues, I was the attending at the time of discharge. Please call or email me if you have questions. Geraldo Salomon MD, [facility] Cardiovascular Medicine [phone] documented in this encounter Discharge Instructions * [...] for you to establish care with a prototype sewer at [facility] as well as a referral [...] appointments: During 8am-5pm Thursday through Thursday call [phone] to speak with a nurse in the cardiology clinic All other times call [phone] and ask to speak to the university teacher cook mayonnaise. Activity level: - No heavy lifting (more [...] none Follow up Appointments: No future appointments. Welder Fitter Arc: You will be contacted by [facility] to schedule a cardiology appointment to establish care. PCP: Felisha Juan APRN at [phone] Your Inpatient Doctor(s) at [facility]: Geraldo Salomon MD - Attending physician Cam David MD - Manager Travel physician Your Primary Care Provider: Felisha Juan APRN [address] [facility] [address] For questions regarding issues relating to your hospitalization on the Hospital Medicine Service, please contact your inpatient physician through the [facility] Medical Office Technologist [phone]. Issues after hours and on weekends will [...] CHO control level 2 Elba Pavon APRN [facility] Endocrinology Diabetes Management Pager [phone] 20 minutes of this 35 minute visit [...] Cuff Relevant medications: noted Last Bowel Movement: (RADIATION PROTECTION ENGINEER) Admit Weight: 66.1 kg Estimated body mass index is 22.86 kg/m?? as calculated from the following: Height as of this encounter: 165.1 cm (5' 5). Weight as of this encounter: 62.3 kg (137 lb 5.6 oz). Martinez Body Weight: 125 lbs / 56.7 kg [...] good PO intake Protein-calorie Malnutrition: Not identified (Eva, JPEN J Parenteral Enteral Nutr. 2011; 36(3): 273-83) Nutrition to continue to follow up while inpatient Phuong Cle[address] RD Pager #:[phone] * Geraldo Salomon MD - 01/06/2022 6:54 AM EDT Images from the original note were not included. Inpatient Cardiology Progress Note Patient info: Name: Afua Rosales : 1975 PCP: Felisha Juan APRN PCP phone number: [phone] Date of Admission: 01/03/2022 ( Hospital Day 3 days ) Attending:Geraldo Salomon MD ID: Afua Rosales is a 46 y.o. 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 She presents with inferior STEMI and is now s/p PCI with TRACIE x2 to RCA. Hospital Day3 24 Hour Events/Subjective: - GUSTAVO ROJAS - pharmacy is [facility] in [facility], BF can poultry picker at 6 pm when neighbor's car [...] vein (top of hand), right 20 gauge 01/03/227 -- 3 Labs: Recent Labs 01/06/22 0420 [...] Procedure Component Value Units Date/Time COVID-19 PCR [[id number]] Collected: 01/04/2249 Lab Status: Final result Specimen: [...] using the Simplexa COVID-19 Direct Assay by Phigital as authorized by the FDA issued Emergency [...] Department of Pathology and Laboratory Medicine at [facility], certified under the Clinical Laboratory Improvement Amendments [...] fact sheets at the following FDA website: https://www.fda.gov/medical-devices/tjbgwalowdg-kbhxtrb-9138-qjveo-38-envcrptqr- ohx-iqqitizojcatzg-gdbflto-devices/pqpgl-buzheudkbto-iiki SARS-CoV-2 Source WIRELESS SALES MANAGER Swab Imaging: No results found for this [...] David MD Internal Medicine, PGY-1 Cardiology, S2 (1172) 01/06/22 Cardiology Staff Addendum Afua Rosales is [...] Sky ? Lucia Alexander Endocrinology Fellow Pager [phone] I have seen the patient and reviewed [...] PCP: Felisha Juan APRN PCP phone number: [phone] Date of Admission: 01/03/2022 ( Hospital Day [...] PLATELET 197 MCV 91.2 Recent Labs 01/04/22 005 NA 137 CL 105 CO2 22 K [...] Procedure Component Value Units Date/Time COVID-19 PCR [[id number]] Collected: 01/04/2249 Lab Status: Final result Specimen: [...] using the Simplexa COVID-19 Direct Assay by Phigital as authorized by the FDA issued Emergency [...] Department of Pathology and Laboratory Medicine at [facility], certified under the Clinical Laboratory Improvement Amendments [...] fact sheets at the following FDA website: https://www.fda.gov/medical-devices/ncrvrpeckse-toxddqm-9876-phlsz-46-zfdnfcpar- rtu-nwbbkwdldmuoxt-mhftkdu-devices/hydaz-kgezatqgsen-xmzd SARS-CoV-2 Source WIRELESS SALES MANAGER Swab Imaging: No results found for this [...] Clark MD - 01/04/2022 3:25 AM EDT [facility] TeleICU Initial Assessment Note I established audio/visual communication with the patient's room, reviewed the eDH. History and Assessment: 46 y.o. 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 STEMIalert activated and went to computer lab para professional where proximal and mid RCA stents were [...] tablet 12.5 mg, 12.5 mg, Oral, Q8H [facility], Sumanth Barnard MD ??? clopidogreL (Plavix) [...] PCP: Felisha Juan APRN PCP phone number: [phone] Date of Admission: 01/03/2022 ( Hospital Day [...] previously made her nauseous. On arrival to [facility], she was afebrile, BP was 95/54, she was oxygenating normally on room air. She was infused with 1L IV fluids, given 25 mg of aspirin (per [facility] discharge note). The on-call university teacher at [facility] was contacted, she was given 300 mg of Plavix, aspirin, heparin with bolus and drip. She was also given tecteplase 35mg. On arrival to [facility] computer lab para professional, she underwent LHC and received TRACIE x2 [...] COVID test: Lab Results Component Value Date [id number] Not Detected 01/04/2022 Past medical History: No past medical history on file. Hospitalizations Within the Past 30 Days: no previous admission in last 30 days Current Decision-Making Capacity: Self Advance Care Planning: Attempt Cardiopulmonary Resuscitation - Inpatient <no information> -Advanced Directive: No, need to discuss If AD's have not been completed daughter would be surrogate decision maker per [place] surrogate decision making law. (Only good for 180 days) Any patient receiving care at [facility] must abide by [place] law. The hierarchy for surrogate decision making [...] (i) The agent with financial power of county attorney or a conservator appointed in accordance [...] Current Living Arrangements: home/apartment/condo. Accessibility Concerns:Has 4 JSASON but manages well. Has a cat and 4 guinea pigs in the home . Resource / Environmental Concerns: Resource/Environmental Concerns: none Current DME: none Home Address confirmed as: [address] [facility] [address] Social & Family Supports: All names listed below confirmed with patient as current and correct Extended Emergency Contact Information Primary Emergency Contact: Delano eRyna [facility] Mobile Relation: Friend Current Care [...] MEDICAID [place] Prescription Coverage: Yes Preferred Pharmacy: [id number] - [place], [place] - [address] [facility] [address] [id number] - [place], [place] - [address] [facility] [address] [facility] [address] Status: Patient is a : No Primary Care Provider: Felisha Juan APRN [phone] Patient/Caregiver Goals of Treatment: To go home [...] planning. Office of Care Management Surgery Team Oral And Maxillofacial Surgery Resident [email or web address] Pager [phone] * Consult Note - Mark Sky [...] management and to provide a review of half-way diabetescare. Diabetes History: Afua Rosales has had [...] meal) 4. Carb controlled diet level 2 USP diabetes care: Medications - Outpatient treatment regimen recommendations pending based on the hospital course. Monitoring - continue BG check q4 hours for now Diet - low fat/low carb diet Exercise - weight-bearing exercise 30 min/day, as tolerated Thank you for allowing us to provide care for your patient. Discussed with Dr. Asya Alexander Endocrinology Fellow Pager [phone] I have seen the patient and reviewed [...] Glucose, POC 197 65 - 199 mg/dL [facility] Comment: Supplemental ranges: <140 mg/dL before meals <180 mg/dL all other times of the day Blood 01/06/2022 2:32 PM EDT 01/06/2022 2:32 PM EDT Geraldo Salomon MD POINT OF CARE TEST O MUSHTAQ Performing Organization Address City/[facility]/ZIP Co de Phone Number [facility] [place] [address] * (ABNORMAL) POCT Glucose (01/06/2022 11:47 AM EDT) Glucose, POC 299(H) 65 - 199 mg/dL [facility] Comment: Supplemental ranges: <140 mg/dL before meals <180 mg/dL all other times of the day Blood 01/06/2022 11:4 7 AM EDT 01/06/2022 11:47 AM EDT Geraldo Salomon MD POINT OF CARE TEST Natalia LANDIN [facility] [place] [address] * POCT Glucose (01/06/2022 8:01 AM EDT) Glucose, POC 142 65 - 199 mg/dL [facility] Comment: Supplemental ranges: <140 mg/dL before meals <180 mg/dL all other times of the day Blood 01/06/2022 8:01 AM EDT 01/06/2022 8:01 AM EDT Geradlo Salomon MD POINT OF CARE TEST O RDERABLES Performing Organization Address City/[facility]/ZIP Co de Phone Number [facility] [place] [address] * Differential, Automated (01/06/2022 4:20 AM EDT) Neutrophil % 51.9 % [facility] Neutrophil Absolute 3.34 1.70 - 6.10 x10(3)/[facility] LABORATORY Lymph % 32.5 % [facility] Lymphocytes Abs 2.1 0.9 - 3.2 x10(3)/[facility] LABORATORY Monocyte % 13.7 % [facility] Monocyte Abs 0.9 0.3 - 0.9 x10(3)/[facility] LABORATORY Eos % 1.1 % [facility] Eosinophils Abs 0.1 0.0 - 0.4 x10(3)/[facility] LABORATORY Basophil % 0.6 % [facility] Baso Absolute 0.0 0.0 - 0.1 x10(3)/[facility] LABORATORY Immature Gran % 0.20 % [facility] Comment: Immature granulocytes(IG's)percentage and absolute count will include metamyelocytes, myelocytes, and promyelocytes. Blood smears from CBCs yielding IG's will be scanned manually for concordance. If this scan disagrees with the automated IG or if promyelocytes are noted, a manual differential will be performed. Immature Gran Absolute 0.01 0.00 - 0.04 x10(3)/[facility] LABORATORY Blood 01/06/2022 4:20 AM EDT 01/06/2022 4:39 AM EDT Narrative Resulting Agency Comment Spec In Lab Cam David MD HEMATOLOGY ORDERABLE S Performing Organization Address City/[facility]/ZIP Co de Phone Number [facility] [place] [address] * (ABNORMAL) Hemogram (01/06/2022 4:20 AM EDT) White Blood Cell 6.4 4.0 - 9.5 x10(3)/mc L [facility] Red Blood Cell 3.86(L) 4.00 - 5.21 x10(6)/mc L [facility] Hemoglobin 12.4 11.7 - 15.5 g/dL [facility] Hematocrit 36.0 35.7 - 45.8 % [facility] Mean Cell Volume 93.3 82.6 - 94.4 fL [facility] Mean Cell Hemoglobin 32.1(H) 27.1 - 32.0 pg [facility] Mean Cell Hemoglobin Concentration 34.4 31.7 - 35.0 g/dL [facility] Platelet 177 145 - 357 x10(3)/[facility] LABORATORY RDW Standard Deviation 42.0 37.0 - 46.0 fL [facility] RDW coefficient of variation 12.1 11.5 - 14.1 % [facility] Mean Platelet Volume 10.0 7.6 - 12.9 fL [facility] NRBC% auto 0.0 % [facility] NRBC Absolute 0.000 0.000 - 0.000 x10(3)/ L [facility] Blood 01/06/2022 4:20 AM EDT 01/06/2022 4:39 AM EDT Narrative Resulting Agency Comment Spec In Lab Cam David MD HEMATOLOGY ORDERABLE S [facility] [place] [address] * Basic Metabolic Panel (non-fasting) (01/06/2022 4:20 [...] In Lab Geraldo Salomon MD CHEMISTRY ORDERABLES [facility] [place] [address] * POCT Glucose (01/06/2022 3:46 AM EDT) Glucose, POC 129 65 - 199 mg/dL [facility] Comment: Supplemental ranges: <140 mg/dL before meals <180 mg/dL all other times of the day Blood 01/06/2022 3:46 AM EDT 01/06/2022 3:46 AM EDT Geraldo Salomon MD POINT OF CARE TEST O MUSHTAQ Performing Organization Address City/[facility] Co de Phone Number [facility] [place] [address] * POCT Glucose (01/06/2022 12:06 AM EDT) Glucose, POC 125 65 - 199 mg/dL [facility] Comment: Supplemental ranges: <140 mg/dL before meals <180 mg/dL all other times of the day Blood 01/06/2022 12:0 6 AM EDT 01/06/2022 12:06 AM EDT Geraldo Salomon MD POINT OF CARE TEST O MUSHTAQ Performing Organization Address [facility] Co de Phone Number [facility] [place] [address] * (ABNORMAL) POCT Glucose (01/05/2022 8:11 PM EDT) Glucose, POC 220(H) 65 - 199 mg/dL [facility] Comment: Supplemental ranges: <140 mg/dL before meals <180 mg/dL all other times of the day Blood 01/05/2022 8:11 PM EDT 01/05/2022 8:11 PM EDT Geraldo Salomon MD POINT OF CARE TEST O SANDEEPERAFRANKLIN Performing Organization Address [facility] Co de Phone Number [facility] [place] [address] * POCT Glucose (01/05/2022 6:00 PM EDT) Glucose, POC 190 65 - 199 mg/dL [facility] Comment: Supplemental ranges: <140 mg/dL before meals <180 mg/dL all other times of the day Blood 01/05/2022 6:00 PM EDT 01/05/2022 6:00 PM EDT Geraldo Salomon MD POINT OF CARE TEST O RDERABLES Performing Organization Address City/[facility] Co de Phone Number [facility] [place] [address] * POCT Glucose (01/05/2022 3:53 PM EDT) Pathologist [facility] Glucose, POC 161 65 - 199 mg/dL [facility] Comment: Supplemental ranges: <140 mg/dL before meals <180 mg/dL all other times of the day Blood 01/05/2022 3:53 PM EDT 01/05/2022 3:53 PM EDT Geraldo Salomon MD POINT OF CARE TEST O MUSHTAQ Performing Organization Address City/[facility]/ZIP Co de Phone Number [facility] [place] [address] * (ABNORMAL) Differential, Automated (01/05/2022 11:45 AM EDT) [facility] Neutrophil % 65.9 % [facility] Neutrophil Absolute 4.46 1.70 - 6.10 x10(3)/mc L [facility] Lymph % 19.0 % [facility] Lymphocytes Abs 1.3 0.9 - 3.2 x10(3)/mc L [facility] Monocyte % 14.2 % [facility] Monocyte Abs 1.0(H) 0.3 - 0.9 x10(3)/mc L [facility] Eos % 0.1 % [facility] Eosinophils Abs 0.0 0.0 - 0.4 x10(3)/mc L [facility] Basophil % 0.4 % [facility] Baso Absolute 0.0 0.0 - 0.1 x10(3)/mc L [facility] Immature Gran % 0.40 % [facility] Comment: Immature granulocytes(IG's)percentage and absolute count will include metamyelocytes, myelocytes, and promyelocytes. Blood smears from CBCs yielding IG's will be scanned manually for concordance. If this scan disagrees with the automated IG or if promyelocytes are noted, a manual differential will be performed. Immature Gran Absolute 0.03 0.00 - 0.04 x10(3)/mc L [facility] Blood 01/05/2022 11:4 5 AM EDT 01/05/2022 12:08 PM EDT Narrative Resulting Agency Comment Spec In Lab Cam David MD HEMATOLOGY ORDERABLE S [facility] [place] [address] * (ABNORMAL) Hemogram (01/05/2022 11:45 AM EDT) White Blood Cell 6.8 4.0 - 9.5 x10(3)/ L [facility] Red Blood Cell 3.92(L) 4.00 - 5.21 x10(6)/mc L [facility] Hemoglobin 12.5 11.7 - 15.5 g/dL [facility] Hematocrit 36.4 35.7 - 45.8 % [facility] Mean Cell Volume 92.9 82.6 - 94.4 fL [facility] Mean Cell Hemoglobin 31.9 27.1 - 32.0 pg [facility] Mean Cell Hemoglobin Concentration 34.3 31.7 - 35.0 g/dL [facility] Platelet 187 145 - 357 x10(3)/mc L [facility] RDW Standard Deviation 41.9 37.0 - 46.0 fL [facility] RDW coefficient of variation 12.3 11.5 - 14.1 % [facility] Mean Platelet Volume 10.4 7.6 - 12.9 fL [facility] NRBC% auto 0.0 % [facility] NRBC Absolute 0.000 0.000 - 0.000 x10(3)/mc L [facility] Blood 01/05/2022 11:4 5 AM EDT 01/05/2022 12:08 PM EDT Narrative Resulting Agency Comment Spec In Lab Cam David MD HEMATOLOGY ORDERABLE S [facility] [place] [address] * Basic Metabolic Panel (non-fasting) (01/05/2022 11:45 AM EDT) Glucose 140 65 - 199 mg/dL [facility] Comment:Diabetes: >=200 mg/d L plus symptoms Blood Urea Nitrogen 10 8 - 18 mg/dL [facility] Creatinine 0.75 0.70 - 1.20 mg/dL [facility] Sodium 137 135 - 145 mmol/L [facility] Potassium 3.9 3.5 - 5.0 mmol/L [facility] Comment: Please note: ??Patients with WBC >100,000 may have falsely elevated Potassium levels. ??For accurate Potassium quantification in these patients send serum separator tube (gold top) for subsequent determinations. ??Contact the Clinical Chemistry Laboratory if there are any questions. Chloride 101 98 - 107 mmol/L [facility] Carbon Dioxide 25 22 - 31 mmol/L [facility] Anion Gap 11 5 - 15 mmol/L [facility] Calcium 8.6 8.5 - 10.5 mg/dL [facility] Est Glomerular Filtration Rate 95 >=60 mL/min/1. 73 m?? [facility] [...] Organization Address [facility] Co de Phone Number [facility] [place] [address] * POCT Glucose (01/05/2022 11:40 AM EDT) [facility] Glucose, POC 148 65 - 199 mg/dL [facility] Comment: Supplemental ranges: <140 mg/dL before meals <180 mg/dL all other times of the day Blood 01/05/2022 11:4 0 AM EDT 01/05/2022 11:40 AM EDT Geraldo Salomon MD POINT OF CARE TEST O RDERABLES Performing Organization Address [facility] Co de Phone Number [facility] [place] [address] * EKG 12 Lead (01/05/2022 8:23 AM EDT) Ventricular rate 78 BPM MUSE SYSTEM Atrial Rate 78 BPM MUSE SYSTEM P-R Interval 132 ms MUSE SYSTEM QRS Duration 106 ms MUSE SYSTEM Q-T Interval 364 ms MUSE SYSTEM QTC Calculated (Bezet) 414 ms MUSE SYSTEM Calculated P Orlando 78 degrees MUSE SYSTEM Calculated R Orlando -65 degrees MUSE SYSTEM Calculated T Orlando -33 degrees MUSE SYSTEM INTERPRETATION Normal sinus rhythm Left axis deviation Incomplete right bundle branch block Cannot rule out Inferior infarct , age undetermined Abnormal ECG When compared with ECG of 04-JAN-2022 00:45, Incomplete right bundle branch block is now Present Minimal criteria for Inferior infarct are now Present Confirmed by Storm Lewis ([id number]) on 01/05/2022 3:44:16 PM MUSE SYSTEM 01/05/2022 8:23 AM EDT 01/05/2022 3:44 PM EDT Geraldo Salomon MD ECG ORDERABLES MUSE SYSTEM * (ABNORMAL) POCT Glucose (01/05/2022 7:43 AM EDT) Glucose, POC 213(H) 65 - 199 mg/dL [facility] Comment: Supplemental ranges: <140 mg/dL before meals <180 mg/dL all other times of the day Blood 01/05/2022 7:43 AM EDT 01/05/2022 7:43 AM EDT Geraldo Salomon MD POINT OF CARE TEST O RDERABLES Performing Organization Address [facility]/ZIP Co de Phone Number [facility] [place] [address] * (ABNORMAL) POCT Glucose (01/05/2022 6:45 AM EDT) Glucose, POC 214(H) 65 - 199 mg/dL [facility] Comment: Supplemental ranges: <140 mg/dL before meals <180 mg/dL all other times of the day Blood 01/05/2022 6:45 AM EDT 01/05/2022 6:45 AM EDT Geraldo Salomon MD POINT OF CARE TEST O RDERABLES Performing Organization Address City/[facility]/ZIP Co de Phone Number [facility] [place] [address] * POCT Glucose (01/05/2022 5:31 AM EDT) Glucose, POC 89 65 - 199 mg/dL [facility] Comment: Supplemental ranges: <140 mg/dL before meals <180 mg/dL all other times of the day Blood 01/05/2022 5:31 AM EDT 01/05/2022 5:31 AM EDT Geraldo Salomon MD POINT OF CARE TEST O SANDEEPERAFRANKLIN [facility] [place] [address] * (ABNORMAL) POCT Glucose (01/05/2022 5:09 AM EDT) Glucose, POC 59(L) 65 - 199 mg/dL [facility] Comment: Supplemental ranges: <140 mg/dL before meals <180 mg/dL all other times of the day Blood 01/05/2022 5:09 AM EDT 01/05/2022 5:09 AM EDT Geraldo Salomon MD POINT OF CARE TEST O SANDEEPERAFRANKLIN Performing Organization Address [facility]/ZIP Co de Phone Number [facility] [place] [address] * POCT Glucose (01/05/2022 12:45 AM EDT) Glucose, POC 96 65 - 199 mg/dL [facility] Comment: Supplemental ranges: <140 mg/dL before meals <180 mg/dL all other times of the day Blood 01/05/2022 12:4 5 AM EDT 01/05/2022 12:45 AM EDT Geraldo Salomon MD POINT OF CARE TEST O RDERAFRANKLIN [facility] [place] [address] * POCT Glucose (01/04/2022 7:28 PM EDT) Glucose, POC 104 65 - 199 mg/dL [facility] Comment: Supplemental ranges: <140 mg/dL before meals <180 mg/dL all other times of the day Blood 01/04/2022 7:28 PM EDT 01/04/2022 7:28 PM EDT Geraldo Salomon MD POINT OF CARE TEST O MUSHTAQ Performing Organization Address City/[facility]/ZIP Co de Phone Number [facility] [place] [address] * POCT Glucose (01/04/2022 4:04 PM EDT) Glucose, POC 190 65 - 199 mg/dL [facility] Comment: Supplemental ranges: <140 mg/dL before meals <180 mg/dL all other times of the day Blood 01/04/2022 4:04 PM EDT 01/04/2022 4:04 PM EDT Geraldo Salomon MD POINT OF CARE TEST O MUSHTAQ Performing Organization Address [facility] Co de Phone Number [facility] [place] [address] * POCT Glucose (01/04/2022 12:09 PM EDT) Glucose, POC 157 65 - 199 mg/dL [facility] Comment: Supplemental ranges: <140 mg/dL before meals <180 mg/dL all other times of the day Blood 01/04/2022 12:0 9 PM EDT 01/04/2022 12:09 PM EDT Geraldo Salomon MD POINT OF CARE TEST O MUSHTAQ Performing Organization Address City/[facility] Co de Phone Number [facility] [place] [address] * ECHO COMPLETE W CONTRAST (01/04/2022 11:08 AM EDT) EF 60 HEARTLAB SYSTEM Anatomical Region Laterality Modality Cardiac Other 01/04/2022 10:3 3 AM EDT Narrative 01/04/2022 11:25 AM EDT [facility] ?[address] ? [place] [address] ?Voice: ?Fax: ? Echocardiogram Report Name: SILVER, AFUA A ? Study Date: 01/04/2022 10:33 AM ? Patient Location: [facility] CV19 A : 1975 ? Height: 65 in ? Account: [id number] Age: 46 yrs ? Weight: 148 lb Gender: Female ?BSA: 1.7 m2 Ordering Physician: MOI LEDEZMA Referring Physician: MT VALENZUELA Exam Location: [facility]. Interpretation Summary Technically difficult. Left ventricular systolic [...] jet. There is no valve disease. Procedure Complete-88752. Image enhancement Optison was used for left [...] Procedure Note Geraldo Salomon MD - 01/04/2022 [place] [address] Voice: Fax: Echocardiogram Report Name: AFUA ROSALES Study Date: 210:33 AM Patient Location: [address] : 1975 Height: 65 in Account: [id number] Age: 46 yrs Weight: 148 lb Gender: Female BSA: 1.7 m2 Ordering Physician: MOI LEDEZMA Referring Physician: MT VALENZUELA Exam Location: [facility]. Interpretation Summary Technically difficult. Left ventricular systolic [...] jet. There is no valve disease. Procedure Complete-80587. Image enhancement Optison was used for left [...] Glucose, POC 100 65 - 199 mg/dL [facility] Comment: Supplemental ranges: <140 mg/dL before meals <180 mg/dL all other times of the day Blood 01/04/2022 10:0 5 AM EDT 01/04/2022 10:05 AM EDT Geraldo Salomon MD POINT OF CARE TEST O RDERAFRANKLIN [facility] [place] [address] * POCT Glucose (01/04/2022 8:23 AM EDT) Glucose, POC 72 65 - 199 mg/dL [facility] Comment: Supplemental ranges: <140 mg/dL before meals <180 mg/dL all other times of the day Blood 01/04/2022 8:23 AM EDT 01/04/2022 8:23 AM EDT Moi Ledezma MD POINT OF CARE TEST O RDERAFRANKLIN Performing Organization Address City/[facility]/ZIP Co de Phone Number [facility] [place] [address] * POCT Glucose (01/04/2022 5:03 AM EDT) Glucose, POC 143 65 - 199 mg/dL [facility] Comment: Supplemental ranges: <140 mg/dL before meals <180 mg/dL all other times of the day Blood 01/04/2022 5:03 AM EDT 01/04/2022 5:03 AM EDT Moi Ledezma MD POINT OF CARE TEST O RDERABLES [facility] [place] [address] * POCT Glucose (01/04/2022 3:01 AM EDT) Glucose, POC 182 65 - 199 mg/dL [facility] Comment: Supplemental ranges: <140 mg/dL before meals <180 mg/dL all other times of the day Blood 01/04/2022 3:01 AM EDT 01/04/2022 3:01 AM EDT Moi Ledezma MD POINT OF CARE TEST O RDERABLES [facility] [place] [address] * (ABNORMAL) BLOOD GAS 2 VENOUS (01/04/2022 1:44 AM EDT) pH, Venous 7.33 7.32 - 7.42 [facility] PCO2, Venous 45 41 - 51 mmHg [facility] PO2, Venous 52(H) 25 - 40 mmHg [facility] Bicarbonate, Venous 23.5 mmol/L [facility] Base Excess, Venous -2.7 mmol/L [facility] Hgb Blood Gas 13.1 11.7 - 15.5 g/dL [facility] Oxyhemoglobin, Venous 86.6 % [facility] Carboxyhemoglob in, Venous 0.3 % [facility] Comment: Nonsmokers: 0.5-1.5% COHB Smokers: Variable, but usually less than 10% Toxic: 20-30% COHB Lethal: Greater than 60% COHB Methemoglobin, Venous 0.8 <=1.5 % [facility] Na Whole Blood 134(L) 135 - 145 mmol/L [facility] K Whole Blood 4.1 3.5 - 5.0 mmol/L [facility] Comment: Please note: Patients with WBC >100,000 may have falsely elevated Potassium levels. Contact the Clinical Chemistry Laboratory if there are any questions. ICa Whole Blood 1.21 1.15 - 1.33 mmol/L [facility] Comment: Note: ??Total bilirubin higher than 20 mg/dL may lead to falsely low ionized calcium. CL Whole Blood 104 98 - 107 mmol/L [facility] Gluc Whole Bld 215(H) 65 - 199 mg/dL [facility] Comment:Diabetes: >=200 mg/d L plus symptoms Lactate WB 0.8 0.5 - 2.2 mmol/L [facility] Fraction of Inspired Oxygen, Venous 21 % [facility] Blood Gas Source Venous [facility] Temperature, Venous 35.8 Celsius [facility] Blood 01/04/2022 1:44 AM EDT 01/04/2022 1:44 AM EDT Moi Ledezma MD POINT OF CARE TEST O RDERABLES Performing Organization Address City/State/[facility] Co de Phone Number [facility] [place] [address] * (ABNORMAL) Differential, Automated (01/04/2022 12:50 AM EDT) Neutrophil % 86.1 % [facility] Neutrophil Absolute 5.92 1.70 - 6.10 x10(3)/mc L [facility] Lymph % 9.6 % [facility] Lymphocytes Abs 0.7(L) 0.9 - 3.2 x10(3)/mc L [facility] Monocyte % 3.6 % [facility] Monocyte Abs 0.2(L) 0.3 - 0.9 x10(3)/mc L [facility] Eos % 0.1 % [facility] Eosinophils Abs 0.0 0.0 - 0.4 x10(3)/mc L [facility] Basophil % 0.3 % [facility] Baso Absolute 0.0 0.0 - 0.1 x10(3)/mc L [facility] Immature Gran % 0.30 % [facility] Comment: Immature granulocytes(IG's)percentage and absolute count will include metamyelocytes, myelocytes, and promyelocytes. Blood smears from CBCs yielding IG's will be scanned manually for concordance. If this scan disagrees with the automated IG or if promyelocytes are noted, a manual differential will be performed. Immature Gran Absolute 0.02 0.00 - 0.04 x10(3)/mc L [facility] Blood 01/04/2022 12:5 0 AM EDT 01/04/2022 1:24 AM EDT Narrative Resulting Agency Comment Spec In Lab Sumanth Barnard MD HEMATOLOGY ORDERABL ES [facility] [place] [address] * (ABNORMAL) Hemogram (01/04/2022 12:50 AM EDT) White Blood Cell 6.9 4.0 - 9.5 x10(3)/mc L [facility] Red Blood Cell 3.77(L) 4.00 - 5.21 x10(6)/mc L [facility] Hemoglobin 11.9 11.7 - 15.5 g/dL [facility] Hematocrit 34.4(L) 35.7 - 45.8 % [facility] Mean Cell Volume 91.2 82.6 - 94.4 fL [facility] Mean Cell Hemoglobin 31.6 27.1 - 32.0 pg [facility] Mean Cell Hemoglobin Concentration 34.6 31.7 - 35.0 g/dL [facility] Platelet 197 145 - 357 x10(3)/mc L [facility] RDW Standard Deviation 40.7 37.0 - 46.0 fL [facility] RDW coefficient of variation 12.1 11.5 - 14.1 % [facility] Mean Platelet Volume 10.4 7.6 - 12.9 fL [facility] NRBC% auto 0.0 % [facility] NRBC Absolute 0.000 0.000 - 0.000 x10(3)/mc L [facility] Blood 01/04/2022 12:5 0 AM EDT 01/04/2022 1:24 AM EDT Narrative Resulting Agency Comment Spec In Lab Sumanth Barnard MD HEMATOLOGY ORDERABL ES Performing Organization Address [facility] Co de Phone Number [facility] [place] [address] * (ABNORMAL) Beta Hydroxybutyrate (01/04/2022 12:50 AM EDT) Beta-hydroxybu turate 0.95(H) 0.00 - 0.30 mmol/L [facility] Comment: Reference range: ??0.00-0.30 mmol/L, based on an overnight fast. ??Children may be higher. Blood 01/04/2022 12:5 0 AM EDT 01/04/2022 1:24 AM EDT Narrative Resulting Agency Comment Spec In Lab Moi Ledezma MD CHEMISTRY ORDERABLES Performing Organization Address [facility] Co de Phone Number [facility] [place] [address] * (ABNORMAL) Hemoglobin A1c (01/04/2022 12:50 AM [...] Mellitus, Diabetes Care 2013; 36: Suppl. 1, S6774 Estimated Average Glucose 183 mg/dL [facility] [...] into estimated average glucose values. ??Diabetes Care 2008:31(8):0277-5585. Blood 01/04/2022 12:5 0 AM EDT 01/04/2022 1:24 AM EDT Narrative Resulting Agency Comment Spec In Lab Moi Ledezma MD CHEMISTRY ORDERABLES Performing Organization Address City/State/[facility] Co de Phone Number [facility] [place] [address] * (ABNORMAL) Troponin (01/04/2022 12:50 AM EDT) Troponin-T 0.24(H) 0.00 - 0.00 ng/mL [facility] Comment: The 99th percentile for Troponin T is less than 0.01 ng/mL, any detectable cTnT concentration using this assay should be considered elevated. According to the third universal definition of myocardial infarction the following criteria with a clinical presentation consistent with acute myocardial ischemia meets the diagnosis for a myocardial infarction (MT). Detection of a rise and/or fall of cTnT, with at least one value greater than the 99th percentile (> or = 0.01) and with at least one of the following ?? Symptoms of ischemia ?? New or presumed new significant VN-vmsqbex-T wave (ST-T) changes or new left bundle [...] additional sample may be indicated. Reference: Third Inman Definition of Myocardial Infarction. Journal of the [place] [employer] 2012;60:1581-98 Blood 01/04/2022 12:5 0 AM EDT 01/04/2022 1:24 AM EDT Narrative Resulting Agency Comment Spec In Lab Moi Ledezma MD CHEMISTRY ORDERABLES Performing Organization Address [facility] Co de Phone Number [facility] [place] [address] * pro-Brain Natriuretic Peptide (01/04/2022 12:50 AM EDT) NT-proBNP 56 <=124 pg/mL [facility] Blood 01/04/2022 12:5 0 AM EDT 01/04/2022 1:24 AM EDT Narrative Resulting Agency Comment Spec In Lab Moi Ledezma MD CHEMISTRY ORDERABLES Performing Organization Address [facility] Co de Phone Number [facility] [place] [address] * LDL Cholesterol, Direct (01/04/2022 12:50 AM EDT) LDL Cholesterol, Direct 66 mg/dL [facility] Comment: Lowest Risk: <100 mg/dL Lower Risk: 100-129 mg/dL Borderline High Risk: 130-159 mg/dL High Risk: 160-189 mg/dL Very High Risk: >hj=376 mg/dL Blood 01/04/2022 12:5 0 AM EDT 01/04/2022 1:24 AM EDT Narrative Resulting Agency Comment Spec In Lab Moi Ledezma MD CHEMISTRY ORDERABLES [facility] [place] [address] * HDL/Cholesterol Profile (01/04/2022 12:50 AM EDT) Cholesterol, Total 136 mg/dL [facility] Comment: Lower Risk: <200 mg/dL Average Risk: 200-239 mg/dL Higher Risk: >ua=381 mg/dL HDL Cholesterol 63 mg/dL [facility] Comment: Males: ?? Higher Risk: <40 mg/dL Females: ?? Higher Risk: <50 mg/dL Cholesterol/HDL Ratio 2.2 ratio [facility] Chol/HDL Interpretation See Note [facility] Comment: Lipid management should be guided by a patient? s ASCVD risk, goals and preferences. ACC/AHA Guidelines recommend high intensity statin if clinical ASCVD or LDL greater than or equal to 190 mg/dL. http://Zafu.com/KQY-NWK-Pqffopdyl Measure LDL if Total Cholesterol minus HDL Cholesterol is greater than 220 mg/dL. Adults aged 40-75 with LDL 70-189 mg/dL should have their 10 year ASCVD risk estimated with the ACC/AHA ASCVD risk auto body repair estimator http://tools.acc.org/IBXGQ-Nvwc-Efynpiebv/ Statin should be discussed if risk greater [...] Organization Address [facility] de Phone Number [facility] [place] [address] * TSH (01/04/2022 12:50 AM EDT) Thyroid Stimulating Hormone 0.75 0.27 - 4.20 mcIU/mL [facility] Comment: Reference Interval (mcIU/mL): Females: ??First Trimester: 0.23-3.88 ??Second Trimester: 0.22-3.90 ??Third Trimester: 0.44-4.66 Blood 01/04/2022 12:5 0 AM EDT 01/04/2022 1:24 AM EDT Narrative Resulting Agency Comment Spec In Lab Moi Ledezma MD CHEMISTRY ORDERABLES Performing Organization Address [facility] de Phone Number [facility] [place] [address] * Phosphorus (01/04/2022 12:50 AM EDT) Phosphorus 2.7 2.5 - 4.5 mg/dL [facility] Blood 01/04/2022 12:5 0 AM EDT 01/04/2022 1:24 AM EDT Narrative Resulting Agency Comment Spec In Lab Moi Ledezma MD CHEMISTRY ORDERABLES Performing Organization Address [facility] de Phone Number [facility] [place] [address] * Magnesium (01/04/2022 12:50 AM EDT) Magnesium 0.84 0.69 - 1.07 mmol/L [facility] Blood 01/04/2022 12:5 0 AM EDT 01/04/2022 1:24 AM EDT Narrative Resulting Agency Comment Spec In Lab oMi Ledezma MD CHEMISTRY ORDERABLES [facility] [place] [address] * (ABNORMAL) Basic Metabolic Panel (non-fasting) (01/04/2022 12:50 AM EDT) Glucose 224(H) 65 - 199 mg/dL [facility] Comment:Diabetes: >=200 mg/d L plus symptoms Blood Urea Nitrogen 11 8 - 18 mg/dL [facility] Creatinine 0.62(L) 0.70 - 1.20 mg/dL [facility] Sodium 137 135 - 145 mmol/L [facility] Potassium 4.1 3.5 - 5.0 mmol/L [facility] Comment: Please note: ??Patients with WBC >100,000 may have falsely elevated Potassium levels. ??For accurate Potassium quantification in these patients send serum separator tube (gold top) for subsequent determinations. ??Contact the Clinical Chemistry Laboratory if there are any questions. Chloride 105 98 - 107 mmol/L [facility] Carbon Dioxide 22 22 - 31 mmol/L [facility] Anion Gap 10 5 - 15 mmol/L [facility] Calcium 8.5 8.5 - 10.5 mg/dL [facility] Est Glomerular Filtration Rate 107 >=60 mL/min/1. 73 m?? [facility] [...] In Lab Moi Ledezma MD CHEMISTRY ORDERABLES [facility] [place] [address] * COVID-19 PCR (01/04/2022 12:50 AM EDT) SARS-CoV-2 RNA (Rapid) Not Detected Not Detected [facility] Comment: This result should be [...] using the Simplexa COVID-19 Direct Assay by [employer] as authorized by the FDA issued Emergency [...] Department of Pathology and Laboratory Medicine at [facility], certified under the Clinical Laboratory Improvement Amendments [...] fact sheets at the following FDA website: https://www.fda.gov/medical-devices/qiiarbtegmd-vminkfb-1280-qkyag-28-sumowcars- use-a gtokroglbuggu-ndswibq-gfzlsep/mfrzm-uvgrzyzrdjj-poph SARS-CoV-2 Source [employer] [facility] Nasopharyngeal Swab 01/05/20 12:50 AM EDT 01/04/2022 1:48 AM EDT Comment:Symptoms->Surveillan ce Narrative Resulting Agency Comment Spec In Lab Moi Ledezma MD MICROBIOLOGY - GENER AL ORDERABLES Performing Organization Address City/[facility]/ZIP Co de Phone Number [facility] [place] [address] * EKG 12 Lead (01/04/2022 12:45 AM EDT) Pathologist [facility] Ventricular rate 94 BPM MUSE SYSTEM Atrial Rate 94 BPM MUSE SYSTEM P-R Interval 140 ms MUSE SYSTEM QRS Duration 92 ms MUSE SYSTEM Q-T Interval 370 ms MUSE SYSTEM QTC Calculated (Bezet) 462 ms MUSE SYSTEM Calculated P Orlando 69 degrees MUSE SYSTEM Calculated R [place] 2 degrees MUSE SYSTEM Calculated T Orlando 89 degrees MUSE SYSTEM INTERPRETATION Normal sinus rhythm Low voltage QRS Nonspecific ST and T wave abnormality Abnormal ECG When compared with ECG of 13-NOV-1999 14:45, ST now depressed in Anterior leads Nonspecific T wave abnormality now evident in Lateral leads Confirmed by MD Umm, Geraldo Espinoza ([id number]) on 01/04/2022 1:03:04 PM MUSE SYSTEM 01/04/2022 12:4 5 AM EDT 01/04/2022 1:03 PM EDT Moi Ledezma MD ECG ORDERABLES MUSE SYSTEM * POCT Glucose (01/04/2022 12:07 AM EDT) Glucose, POC 126 65 - 199 mg/dL [facility] Comment: Supplemental ranges: <140 mg/dL before meals <180 mg/dL all other times of the day Blood 01/04/2022 12:0 7 AM EDT 01/04/2022 12:07 AM EDT Moi Ledezma MD POINT OF CARE TEST O RDERABLES Performing Organization Address City/State/[facility] Co de Phone Number [facility] [place] [address] * CARDIAC CATHETERIZATION (01/03/2022 11:45 PM EDT) Anatomical Region Laterality Modality Other Narrative 01/03/2022 11:54 PM EDT ?[facility] ? Cardiac Catheterization/Intervention Report ? Patient Name: Afua Rosales. ? Procedure Date: 01/03/2022 ? A #: [id number] ? Primary Physician: Moi Ledezma ? Case #: [id number] ? File Name: [id number] ? Catheterization Order Number: [id number] ? [facility] ? Final Report [place], [place] ? Patient Name: ? Afua A. Silver ?ID#: ?[id number] ? : ?1975 ? Procedure Date: ? January 03, 2022 ? Case #: ? [id number] ? Room: ? 6 ? Case Physician: ? Moi Ledezma MCurt. ? Start: ?22:34 ?Fellow: ? Wang Winn [...] was ?designated as ASA Class IV. The [facility] clinical frailty scale is 5: Mildly ?Frail. ? Diagnostic Tests: ?Electrocardiography: ? EKG was assessed by ECG. EKG was Abnormal. EKG showed ST Deviation ? >= 0.5 mm and other abnormality. ?Medications Prior to Procedure: ? Aspirin, Statin and Thrombolytic (any). ? Indications for Diagnostic Cath: ?The priority of the diagnostic procedure was Emergent. The indication for ?the computer lab para professional visit is ACS less than or equal [...] ?SH guiding catheter and a 3.5 Fr [place] [facility] [place] [address] ??20 Mhz. ??Imaging ?was successful. ??Image quality was excellent. ??The mid RCA showed severe ?diffuse atherosclerotic plaque. ??Measurements were performed after ?pre-dilation. ?Post Intervention: The stent was well expanded and apposed. ?Intravascular Ultrasound was performed in the distal RCA using a 6 Fr JR ?4 SH guiding catheter and a 3.[address] Fr [place] [facility] [place] [address] ??20 Mhz. ?Imaging was successful. ??Image [...] dose administered prior to arrival in the computer lab para professional. ?Recommended anti-platelet/anti-thrombotic regimen: ?Start aspirin 81 mg daily now and continue for indefinitely. ?Start clopidogrel 75 mg daily now and continue for 12 months then stop. ?These recommendations are made at the time of the intervention. Patient ?and provider preferences or a changing clinical situation may require ?modification of this regimen. Consult [facility] Interventional Cardiology for ?questions. ?The 1 year [...] against any medical treatment. Consult ?http://tools.acc.org/DAPTriskapp/#!/content/calculator/ or [facility] ?Interventional Cardiology for questions ? Conclusions: ?* [...] Procedure Note Moi Ledezma MD - 01/14/2022 [facility] Cardiac Catheterization/Intervention Report Patient Name: Afua Rosales Procedure Date: 01/03/2022 A #: [id number] Primary Physician: Moi Ledezma Case #: [id number] File Name: [id number] Catheterization Order Number: [id number] [facility] FinalReport [place], [place] Patient Name: Afua Rosales ID#:[id number] :1975 Procedure Date: January 03, 2022 Case [...] patientwas designated as ASA Class IV. The [facility] clinical frailty scale is 5:Mildly Frail. Diagnostic Tests: Electrocardiography: EKG was assessed by ECG. EKG was Abnormal. EKG showed STDeviation >= 0.5 mm and other abnormality. Medications Prior to Procedure: Aspirin, Statin and Thrombolytic (any). Indications for Diagnostic Cath: The priority of the diagnostic procedure was Emergent. Theindication for the computer lab para professional visit is ACS less than or equal [...] SH guiding catheter and a 3.[address] [facility] [place] [address] 20 Mhz.Imaging was successful. Image quality was excellent. The mid RCA showedsevere diffuse atherosclerotic plaque. Measurements were performed after pre-dilation. Post Intervention: The stent was well expanded and apposed. Intravascular Ultrasound was performed in the distal RCA using a 6Fr JR 4 SH guiding catheter and a 3.[address] [facility] [place] [address] 20 Mhz. Imaging was successful. Image quality was excellent. The distalRCA showed severe diffuse atherosclerotic plaque. Measurements were performed after pre-dilation. Post Intervention: The stent was well expanded and apposed. Indication for Intervention: Coronary intervention was indicated for primary therapy for an acute myocardial infarction. The priority for the procedure was Emergent.The [facility] indication for the procedure was STEMI (after [...] The lesion was predilated with a 2.00mm [id number] MM balloon with a maximum inflation pressure [...] across thislesion. Vessel flow pre intervention was ALEXNADRIA 3. Lesion lengthwas 32mm. This lesion was [...] dose administered prior to arrival in the computer lab para professional. Recommended anti-platelet/anti-thrombotic regimen: Start aspirin 81 mg daily now and continue for indefinitely. Start clopidogrel 75 mg daily now and continue for 12 months thenstop. These recommendations are made at the time of the intervention.Patient and provider preferences or a changing clinical situation mayrequire modification of this regimen. Consult [facility] [place]iology[place] questions. The 1 year bleeding [...] or against any medical treatment.Consult http://tools.acc.org/DAPTriskapp/#!/content/calculator/ or [facility] [place] for questions Conclusions: * Two [...] Glucose, POC 200(H) 65 - 199 mg/dL [facility] Comment: Supplemental ranges: <140 mg/dL before meals <180 mg/dL all other times of the day Blood 01/03/2022 11:3 1 PM EDT 01/03/2022 11:31 PM EDT Moi Ledezma MD POINT OF CARE TEST O RDERABLES [facility] [place] [address] * (ABNORMAL) POCT Glucose (01/03/2022 10:56 PM EDT) Glucose, POC 265(H) 65 - 199 mg/dL [facility] Comment: Supplemental ranges: <140 mg/dL before meals <180 mg/dL all other times of the day Blood 01/03/2022 10:5 6 PM EDT 01/03/2022 10:56 PM EDT Moi Ledezma MD POINT OF CARE TEST O RDERABLES [facility] [place] [address] * (ABNORMAL) Point of Care Blood Gas Historical (01/03/2022 10:38 PM EDT) pH, POC 7.35 7.35 - 7.45 [facility] pCO2, POC 46(H) 35 - 45 mmHg [facility] pO2, POC 93 85 - 104 mmHg [facility] Base Excess, POC 0.0 -3.0 - 3.0 mmol/L [facility] Bicarbonate, POC 25.3 20.0 - 26.0 mmol/L [facility] Sodium, POC 141 135 - 145 mmol/L [facility] POC Potassium 3.7 3.5 - 5.0 mmol/L [facility] Ionized Calcium, POC 1.26 1.15 - 1.33 mmol/L [facility] POC Hematocrit 35.0 34.0 - 45.0 % [facility] POC Calc Hgb 11.9 11.2 - 15.7 g/dL [facility] Comment:The calculation of h emoglobin from hematocrit assumes a normal MCHC. POC Bgas Loc CC LAB [facility] Blood 01/03/2022 10:3 8 PM EDT 01/09/2022 12:00 PM EDT Geraldo Salomon MD CHEMISTRY ORDERABLES [facility] [place] [address] * (ABNORMAL) POCT Glucose (01/03/2022 10:37 PM EDT) Glucose, POC 63(L) 65 - 199 mg/dL [facility] Comment: Supplemental ranges: <140 mg/dL before meals <180 mg/dL all other times of the day Blood 01/03/2022 10:3 7 PM EDT 01/03/2022 10:37 PM EDT Moi Ledezma MD POINT OF C[place] [address] documented in this encounter Visit Diagnoses Diagnosis [...] on Thu01/04/22 at 2100, Until Discontinued, Routine 214 (Given - Provider: John Tovar RN) 2012 [...] 70 mg/dL., Routine 1307 (Given - Provider: Goerge Castro RN - Comment: 35gm of carbohydrates)1800 [...] George Castro RN)2147 (Given - Provider: John Tovar RN) 0937 (Given - Provider: Tj Berry, GUSTAVO)2013 (Given - Provider: Ivette Thakkar, GUSTAVO) 0926 [...] Routine documented in this encounter Care Teams Buyer Agent Relationship Specialty Start Date End Date Felisha Juan, PARAPROFESSIONAL AIDE TEACHER [address] [place] [address] PCP - General Family Medicine 10/29/15 01/29/22 documented as of this encounter
--- OUTSIDE RECORDS SUMMARY | 2024-05-27 19:44 | XMS_ITS | Encounter Summary ---
Author Organization [facility] [place] [address] Care Team Providers Care Motor Vehicle Assembly Supervisor Name Role Phone Jose Pittman Primary Care Provider [phone] Reason for Referral * Consultation (Routine) - Closed Specialty Diagnoses / Procedures Referred By Chip t Referred To Contact Cardiology Diagnoses Elevated troponin Elevated troponin Giselle Cervantes APRN [address] [place] [address] [facility] [address] [place] [phone] Referral ID Status Reason Start Date Expiration Date V isits Requested Visits Authorized [id number] Closed Consult, Test & Treat PCP Updated and/or Approved 01/30/2022 01/30/2023 6 6 Encounter Details Date Type Department Care Team (Late st Contact Info) Description 01/30/2022 Transcribe Orders eDH Incoming Referrals [phone] Giselle Cervantes APRN [address] [place], [place] [id number] Elevated troponin Social History Tobacco Use Types [...] chemistry documented in this encounter Care Teams Motor Vehicle Assembly Supervisor Relationship Specialty Start Date End Date Jose Pittman PA [address] [place] [address] PCP - General Internal Medicine 01/30/22 04/01/24 documented as of this encounter
--- OUTSIDE RECORDS SUMMARY | 2024-05-27 19:44 | XMS_ITS | Encounter Summary ---
Author Organization [facility] Address [facility] [place] [address] Care Team Providers Care Anesthesiology Physician Name Role Phone Yessica Felisha WILLSON Primary Care Provider + [phone] Encounter Details Date Type Department Care Team (Late st Contact Info) Description 01/12/2022 External Results Administration [facility] [place] [address] Social History Tobacco Use Types Packs/Day Years [...] on filedocumented in this encounter Care Teams Anesthesiology Physician Relationship Specialty Start Date End Date Felisha Juan APRN [address] [place] [address] PCP - General Family Medicine 10/29/15 01/29/22 documented as of this encounter
--- OUTSIDE RECORDS SUMMARY | 2024-05-27 19:44 | XMS_ITS | Encounter Summary ---
Author Organization [facility] [place] [address] Care Team Providers Care Hydraulic Jack Operator Name Role Phone Felisha Juan APRN Primary Care Provider + [phone] Encounter Details Date Type Department Care Team (Late st Contact Info) Description 01/07/2022 Telephone Cardiac Rehab [facility] [place] [id number] Nicole Walters RN Social History Tobacco Use [...] PM EDT Cardiac rehab- Patient discharged from [facility] prior to our team meeting her. She is s/p STEMI, PCI. I called her today and confirmed cardiac rehab referral to [facility]. Will send along her heart diagram, home walk program and brochure. documented in this encounter Plan of Treatment Not on file documented as of this encounter Visit Diagnoses Not on filedocumented in this encounter Care Teams Hydraulic Jack Operator Relationship Specialty Start Date End Date Felisha Juan APRN [address] [place] [address] PCP - General Family Medicine 10/29/15 01/29/22 documented as of this encounter
--- OUTSIDE RECORDS SUMMARY | 2024-05-27 19:44 | XMS_ITS | Data Portability ---
Author Organization [place] - [facility] [place] [address] Care Team Providers Care Manager Family Name Role Phone NAVIN PITTMAN Primary Care Provider [phone] ROCK RAMIREZ Assistant Operations Manager [facility] ENDOCRINOLOGY Endocrinologis t [facility] PODIAT[facility] Vp Hr Diversity [employer] [employer] Digital Communications Manager Assessment Encounter Date Assessment Date Assessment LastModified by Organization Details LastModified Time 09/25/2023 09/25/2023 Kailey's chronic medical issues appear stable. Unfortunately we are unable to download her CGM data today. We will try to get this next week. No changes to medication management were made today. She has cardiology follow-up this summer. She has been referred to [facility] for consideration of left ear surgery [...] [address] [facility], [address] [facility], [place], [address], 11:46:21 metoprolol succinate ER 25 mg tablet,exte nded release 24 hr 2023 024 [address] [facility], [address] [place], [address], 13:59:01 Patient TargetsNo targets recorded. Patient Instructions Encounter Date Encounter Id Patient Instructions Last Modified By Organization Details Last Modified Time 09/25/2023 [id number] Kailey Shanks I will get in touch with Lucia so she can download your blood sugars next week. [email or web address] Not available 09/25/2023 10:01:34 12/22/2023 [id number] Kailey - slowly titrate your basaglar by [...] ser 342 mg/dL 74-106 high Not Available [facility] [address], [place], [address], 03/04/2024 03:12:18 06/11/2006/11/2023 creat inine , urine [...] 10_3/ uL 4.4-10 .8 normal Not Available [address] [place], [address] 07/05/2023 12:04:31 07/05/20 23 07/05/2023 COMPL ETE BLOOD COUNT W/DIF F RBC 4.52 10_6/ uL 3.93-5 .22 normal Not Available [address] [place], [address] 07/05/2023 12:04:31 07/05/20 23 07/05/2023 COMPL ETE BLOOD COUNT W/DIF F HGB 13.9 g/dL 11.2-1 5.7 normal Not Available [address] [place], [address] 07/05/2023 12:04:31 07/05/20 23 07/05/2023 COMPL ETE BLOOD COUNT W/DIF F HCT 40.3 % 36.0-4 6.0 normal Not Available [address] [place], [address] 07/05/2023 12:04:31 07/05/20 23 07/05/2023 COMPL ETE BLOOD COUNT W/DIF F MCV 89 fL 80-95 normal Not Available [address] [place], [address] 07/05/2023 12:04:31 07/05/20 23 07/05/2023 COMPL ETE BLOOD COUNT W/DIF F MCH 30.8 pg 27.0-3 3.0 normal Not Available [address] [place], [address] 07/05/2023 12:04:31 07/05/20 23 07/05/2023 COMPL ETE BLOOD COUNT W/DIF F MCHC 34.5 % 32.0-3 6.0 normal Not Available [address] [place], [address] 07/05/2023 12:04:31 07/05/20 23 07/05/2023 COMPL ETE BLOOD COUNT W/DIF F RDW 11.9 % 11.7-1 4.6 normal Not Available [address] [place], [address] 07/05/2023 12:04:31 07/05/20 23 07/05/2023 COMPL ETE BLOOD COUNT W/DIF F platelet count 204 10_3/ uL 130-40 0 normal Not Available [address] [place], [address] 07/05/2023 12:04:31 07/05/20 23 07/05/2023 COMPL ETE BLOOD COUNT W/DIF F MPV 9.6 fL 8.0-11 .0 normal Not Available [address] [place], [address] 07/05/2023 12:04:31 07/05/20 23 07/05/2023 COMPL ETE BLOOD COUNT W/DIF F neutrophils % 54.7 Not Available [address] [place], [address] 07/05/2023 12:04:31 07/05/20 23 07/05/2023 COMPL ETE BLOOD COUNT W/DIF F lymphocytes % 33.7 Not Available [address] [place], [address] 07/05/2023 12:04:31 07/05/20 23 07/05/2023 COMPL ETE BLOOD COUNT W/DIF F monocytes % 9.3 Not Available [address] [place], [address] 07/05/2023 12:04:31 07/05/20 23 07/05/2023 COMPL ETE BLOOD COUNT W/DIF F eosinophils % 1.5 Not Available [address] [place], [address] 07/05/2023 12:04:31 07/05/20 23 07/05/2023 COMPL ETE BLOOD COUNT W/DIF F basophils % 0.5 Not Available [address] [place], [address] 07/05/2023 12:04:31 07/05/20 23 07/05/2023 COMPL ETE BLOOD COUNT W/DIF F immature grans % 0.3 Not Available [address] [place], [address] 07/05/2023 12:04:31 07/05/20 23 07/05/2023 COMPL ETE BLOOD COUNT W/DIF F nucleated RBC 0.0 % 0.0-0. 3 normal Not Available [address] [place], [address] 07/05/2023 12:04:31 07/05/20 23 07/05/2023 COMPL ETE BLOOD COUNT W/DIF F absolute neutrophil count 3.53 10_3/ uL 1.2-6. 7 normal Not Available [address] [place], [address] 07/05/2023 12:04:31 07/05/20 23 07/05/2023 COMPL ETE BLOOD COUNT W/DIF F absolute lymphocyte count 2.18 10_3/ uL 1.2-3. 4 normal Not Available [address] [place], [address] 07/05/2023 12:04:31 07/05/20 23 07/05/2023 COMPL ETE BLOOD COUNT W/DIF F absolute monocyte count 0.60 10_3/ uL 0.1-0. 8 normal Not Available [address] [place], [address] 07/05/2023 12:04:31 07/05/20 23 07/05/2023 COMPL ETE BLOOD COUNT W/DIF F absolute eosinophil count 0.10 10_3/ uL 0.0-0. 7 normal Not Available [address] [place], [address] 07/05/2023 12:04:31 07/05/20 23 07/05/2023 COMPL ETE BLOOD COUNT W/DIF F absolute basophil count 0.03 10_3/ uL 0.0-0. 2 normal Not Available [address] [place], [address] 07/05/2023 12:04:31 07/05/20 23 07/05/2023 NGOZI IA ammonia < 10 umol/ L 11-32 low Not Available [address] [place], [address] 07/05/2023 12:13:31 07/05/20 23 07/05/2023 PROTH ROMBI N TIME prothrombin time 10.6 sec 9.1-11 .1 normal Not Available [address] [place], [address] 07/05/2023 12:39:32 07/05/20 23 07/05/2023 PROTH ROMBI N TIME INR 1.1 0.9-1. 1 normal Recom celia d INR thera peuti c range s for orall y admin ister ed drugs are as follo ws: -Barry dard Inten sity 2.0 to 3.0 -High er Inten sity 3.0 to 4.5 Not Available [address] [place], [address] 07/05/2023 12:39:32 07/05/20 23 07/05/2023 D-DIM ER D-dimer 767 NG/ml feu <500 high *Lite ratur e suppo rts the exclu marysol of DVT and/o r PE with a resul t less than 500 ng/ml FEU with this metho d.* Not Available [address] [place], [address] 07/05/2023 12:39:32 07/05/20 23 07/05/2023 COMPR EHENS JES METAB OLIC PANEL calcium 9.2 mg/dL 8.5-10 .1 normal Not Available [address] [place], [address] 07/05/2023 12:41:33 07/05/20 23 07/05/2023 COMPR EHENS JES METAB OLIC PANEL glucose 289 mg/dL 74-106 high Not Available Kalpesh casillas [address] [place], [address] 07/05/2023 12:41:33 07/05/20 23 07/05/2023 COMPR EHENS JES METAB OLIC PANEL BUN 16 mg/dL 7-18 normal Not Available Kalpesh casillas [address] [place], [address] 07/05/2023 12:41:33 07/05/20 23 07/05/2023 COMPR EHENS JES METAB OLIC PANEL creatinine 0.9 mg/dL 0.55-1 .02 normal Not Available [address] [place], [address] 07/05/2023 12:41:33 07/05/20 23 07/05/2023 COMPR EHENS [...] young er-ag ed adult s. Not Available [address] [place], [address] 07/05/2023 12:41:33 07/05/20 23 07/05/2023 COMPR EHENS JES METAB OLIC PANEL total protein 7.6 g/dL 6.4-8. 2 normal Not Available [address] [place], [address] 07/05/2023 12:41:33 07/05/20 23 07/05/2023 COMPR EHENS JES METAB OLIC PANEL albumin 3.7 g/dL 3.4-5. 0 normal Not Available [address] [place], [address] 07/05/2023 12:41:33 07/05/20 23 07/05/2023 COMPR EHENS JES METAB OLIC PANEL bilirubin, total 0.5 mg/dL 0.2-1. 0 normal Not Available [address] [place], [address] 07/05/2023 12:41:33 07/05/20 23 07/05/2023 COMPR EHENS JES METAB OLIC PANEL alk phos 109 U/L 46-116 normal Not Available [address] [place], [address] 07/05/2023 12:41:33 07/05/20 23 07/05/2023 COMPR EHENS JES METAB OLIC PANEL sodium 135 mmol/ L 136-14 5 low Not Available [address] [place], [address] 07/05/2023 12:41:33 07/05/20 23 07/05/2023 COMPR EHENS JES METAB OLIC PANEL potassium 4.8 mmol/ L 3.5-5. 1 normal Not Available [address] [place], [address] 07/05/2023 12:41:33 07/05/20 23 07/05/2023 COMPR EHENS JES METAB OLIC PANEL chloride 100 mmol/ L 98-107 normal Not Available [address] [place], [address] 07/05/2023 12:41:33 07/05/20 23 07/05/2023 COMPR EHENS JES METAB OLIC PANEL CO2 31.1 mmol/ L 21.0-3 2.0 normal Not Available [address] [place], [address] 07/05/2023 12:41:33 07/05/2007/05/2023 COMPR EHENS JES METAB OLIC PANEL anion gap 3.9 mmol/ L 3-11 normal Not Available [address] [place], [address] 07/05/2023 12:41:33 07/05/20 23 07/05/2023 COMPR EHENS JES METAB OLIC PANEL AST 34 U/L 15-37 normal Not Available Kalpesh [address] [place], [address] 07/05/2023 12:41:33 07/05/2007/05/2023 COMPR EHENS JES METAB OLIC PANEL ALT 51 U/L 14-59 normal Not Available Kalpesh [address] [place], [address] 07/05/2023 12:41:33 07/05/2007/05/2023 ETHYL ALCOH OL ethyl alcohol < 3.0 mg/dL <10 ETOH Refer ence Range = <10 mg/dL Legal Limit of Intox icati on is 80 mg/dL This test is inten ded only for Medic al purpo ses. Divid e resul t by 1000 to conve rt to %(w/v ) Not Available [address] [place], [address] 07/05/2023 12:41:34 07/05/20 23 07/05/2023 HCG QUANT [...] Month s 10,00 0-100 ,000 Not Available [address] [place], [address] 07/05/2023 12:41:34 07/05/20 23 07/05/2023 MAGNE SIUM magnesium 2.1 mg/dL 1.8-2. 4 normal Not Available [address] [place], [address] 07/05/2023 12:41:34 07/05/20 23 07/05/2023 TSH (W/RE F FT4) TSH (w/ref FT4) 0.80 uIU/m L 0.36-3 .74 normal NOTE: Supra -phys iolog ic doses of Bioti n(B7) may cause false negat jes resul ts. Not Available [address] [place], [address] 07/05/2023 12:41:35 07/05/20 23 07/05/2023 CARDI AC TROPO KANWAL I cardiac troponin I < 50 NG/L <or=60 Not Available [address] [place], [address] 07/05/2023 12:41:35 07/05/20 23 07/05/2023 URINA LYSIS color Yellow yellow Not Available Kalpesh casillas [address] [place], [address] 07/05/2023 14:53:39 07/05/20 23 07/05/2023 URINA LYSIS clarity Clear clear Not Available Kalpesh casillas [address] [place], [address] 07/05/2023 14:53:39 07/05/20 23 07/05/2023 URINA LYSIS specific gravity 1.015 1.005- 1.025 normal Not Available [address] [place], [address] 07/05/2023 14:53:39 07/05/20 23 07/05/2023 URINA LYSIS pH 7.5 5-8 normal Not Available Kalpesh casillas [address] [place], [address] 07/05/2023 14:53:39 07/05/20 23 07/05/2023 URINA LYSIS leukocyte esterase Trace negati ve abnormal Not Available [address] [place], [address] 07/05/2023 14:53:39 07/05/20 23 07/05/2023 URINA LYSIS nitrite Negati ve negati ve Not Available [address] [place], [address] 07/05/2023 14:53:39 07/05/20 23 07/05/2023 URINA LYSIS protein Negati ve mg/dL negati ve Not Available [address] [place], [address] 07/05/2023 14:53:39 07/05/20 23 07/05/2023 URINA LYSIS glucose 250 mg/dL negati ve abnormal Not Available [address] [place], [address] 07/05/2023 14:53:39 07/05/20 23 07/05/2023 URINA LYSIS ketones Negati ve mg/dL negati ve Not Available [address] [place], [address] 07/05/2023 14:53:39 07/05/20 23 07/05/2023 URINA LYSIS urobilinogen 0.2 mg/dL up to 0.2 Not Available [address] [place], [address] 07/05/2023 14:53:39 07/05/20 23 07/05/2023 URINA LYSIS bilirubin Negati ve negati ve Not Available [address] [place], [address] 07/05/2023 14:53:39 07/05/20 23 07/05/2023 URINA LYSIS blood Negati ve negati ve Not Available [address] [place], [address] 07/05/2023 14:53:39 07/05/20 23 07/05/2023 CARDI AC TROPO KANWAL I cardiac troponin I < 50 NG/L <or=60 Not Available [address] [place], [address] 07/05/2023 15:02:41 07/05/20 23 07/05/2023 URINA LYSIS color Yellow yellow Not Available Kalpesh casillas [address] [place], [address] 07/05/2023 15:03:40 07/05/20 23 07/05/2023 URINA LYSIS clarity Clear clear Not Available Kalpesh casillas [address] [place], [address] 07/05/2023 15:03:40 07/05/20 23 07/05/2023 URINA LYSIS specific gravity 1.015 1.005- 1.025 normal Not Available [address] [place], [address] 07/05/2023 15:03:40 07/05/20 23 07/05/2023 URINA LYSIS pH 7.5 5-8 normal Not Available Kalpesh casillas [address] [place], [address] 07/05/2023 15:03:40 07/05/20 23 07/05/2023 URINA LYSIS leukocyte esterase Trace negati ve abnormal Not Available [address] [place], [address] 07/05/2023 15:03:40 07/05/20 23 07/05/2023 URINA LYSIS nitrite Negati ve negati ve Not Available [address] [place], [address] 07/05/2023 15:03:40 07/05/20 23 07/05/2023 URINA LYSIS protein Negati ve mg/dL negati ve Not Available [address] [place], [address] 07/05/2023 15:03:40 07/05/20 07/05/2023 URINA LYSIS glucose 250 mg/dL negati ve abnormal Not Available [address] [place], [address] 07/05/2023 15:03:40 07/05/20 23 07/05/2023 URINA LYSIS ketones Negati ve mg/dL negati ve Not Available [address] [place], [address] 07/05/2023 15:03:40 07/05/20 23 07/05/2023 URINA LYSIS urobilinogen 0.2 mg/dL up to 0.2 Not Available [address] [place], [address] 07/05/2023 15:03:40 07/05/20 23 07/05/2023 URINA LYSIS bilirubin Negati ve negati ve Not Available [address] [place], [address] 07/05/2023 15:03:40 07/05/20 23 07/05/2023 URINA LYSIS blood Negati ve negati ve Not Available [address] [place], [address] 07/05/2023 15:03:40 07/05/20 23 07/05/2023 MICRO SCOPI C FINDI NGS WBC 0-2 hpf 0-5 Not Available Kalpesh casillas [address] [place], [address] 07/05/2023 15:03:40 07/05/20 23 07/05/2023 MICRO SCOPI C FINDI NGS RBC Negati ve hpf 0-2 Not Available Bettie suárez [address] [place], [address] 07/05/2023 15:03:40 07/05/20 23 07/05/2023 MICRO SCOPI C FINDI NGS epithelial cells Rare hpf negati ve Not Available [address] [place], [address] 07/05/2023 15:03:40 07/05/20 23 07/05/2023 MICRO SCOPI C FINDI NGS bacteria Rare hpf negati ve Not Available [address] [place], [address] 07/05/2023 15:03:40 07/05/20 23 07/05/2023 MICRO SCOPI C FINDI NGS crystals Negati ve hpf negati ve Not Available [address] [place], [address] 07/05/2023 15:03:40 07/05/20 23 07/05/2023 MICRO SCOPI C FINDI NGS mucus Negati ve negati ve Not Available [address] [place], [address] 07/05/2023 15:03:40 07/05/20 23 07/05/2023 MICRO SCOPI C FINDI NGS casts Negati ve lpf negati ve Not Available [address] [place], [address] 07/05/2023 15:03:40 07/05/20 23 07/05/2023 MICRO SCOPI C FINDI NGS C S indicated? Yes Not Available [address] [place], [address] 07/05/2023 15:03:40 07/05/20 23 07/06/2023 URINE CULTU RE urine culture Urine Cultu re Proba ble conta minat ed colle ction APPEA IVETTE Mixed Gram Posit jes Alta COLON Y COUNT Not Available [address] [place], [address] 07/06/2023 07:38:39 07/05/20 23 07/06/2023 URINE CULTU RE urine culture colon ies/m L 10,00 0 - 50,00 0 Day 1 Resul t ISOLA ANETA BELOW O:GPF M (ORGA NISM ID: [id number]) - GRAM POSIT JES ALTA ,MIXE D Urine Cultu re (ORGA NISM ID: 1.1) - COLON Y COUNT (ORGA NISM ID: 1.1) - 10,00 0 - 50,00 0 Not Available [address] [place], [address] 07/06/2023 07:38:39 07/05/20 23 07/07/2023 URINE CULTU RE urine culture Urine Cultu re Proba ble conta minat ed colle ction APPEA IVETTE Mixed Gram Posit jes Alta APPEA IVETTE Mixed Gram Posit jes Alta COLON Y COUNT Not Available [address] [place], [address] 07/07/2023 07:47:12 07/05/20 23 07/07/2023 URINE CULTU [...] 10,00 0 - 50,00 0 Not Available [address] [place], [address] 07/07/2023 07:47:12 08/21/19 24 08/21/2023 COMPL ETE BLOOD COUNT W/DIF F WBC 7.04 10_3/ uL 4.4-10 .8 normal Not Available [address] [place], [address] 08/21/2023 22:28:59 08/21/19 24 08/21/2023 COMPL ETE BLOOD COUNT W/DIF F RBC 4.44 10_6/ uL 3.93-5 .22 normal Not Available [address] [place], [address] 08/21/2023 22:28:59 08/21/19 24 08/21/2023 COMPL ETE BLOOD COUNT W/DIF F HGB 13.6 g/dL 11.2-1 5.7 normal Not Available [address] [place], [address] 08/21/2023 22:28:59 08/21/19 24 08/21/2023 COMPL ETE BLOOD COUNT W/DIF F HCT 39.8 % 36.0-4 6.0 normal Not Available [address] [place], [address] 08/21/2023 22:28:59 08/21/19 24 08/21/2023 COMPL ETE BLOOD COUNT W/DIF F MCV 90 fL 80-95 normal Not Available Kalpesh [address] [place], [address] 08/21/2023 22:28:59 08/21/19 24 08/21/2023 COMPL ETE BLOOD COUNT W/DIF F MCH 30.6 pg 27.0-3 3.0 normal Not Available [address] [place], [address] 08/21/2023 22:28:59 08/21/19 24 08/21/2023 COMPL ETE BLOOD COUNT W/DIF F MCHC 34.2 % 32.0-3 6.0 normal Not Available [address] [place], [address] 08/21/2023 22:28:59 08/21/19 24 08/21/2023 COMPL ETE BLOOD COUNT W/DIF F RDW 12.3 % 11.7-1 4.6 normal Not Available [address] [place], [address] 08/21/2023 22:28:59 08/21/19 24 08/21/2023 COMPL ETE BLOOD COUNT W/DIF F platelet count 181 10_3/ uL 130-40 0 normal Not Available [address] [place], [address] 08/21/2023 22:28:59 08/21/19 24 08/21/2023 COMPL ETE BLOOD COUNT W/DIF F MPV 9.5 fL 8.0-11 .0 normal Not Available [address] [place], [address] 08/21/2023 22:28:59 08/21/19 24 08/21/2023 COMPL ETE BLOOD COUNT W/DIF F neutrophils % 77.5 Not Available [place] [address] [place], [address] 08/21/2023 22:28:59 08/21/19 24 08/21/2023 COMPL ETE BLOOD COUNT W/DIF F lymphocytes % 15.2 Not Available Kole iglesias [address] [place], [address] 08/21/2023 22:28:59 08/21/19 24 08/21/2023 COMPL ETE BLOOD COUNT W/DIF F monocytes % 6.1 Not Available [address] [place], [address] 08/21/2023 22:28:59 08/21/19 24 08/21/2023 COMPL ETE BLOOD COUNT W/DIF F eosinophils % 0.4 Not Available [address] [place], [address] 08/21/2023 22:28:59 08/21/19 24 08/21/2023 COMPL ETE BLOOD COUNT W/DIF F basophils % 0.4 Not Available [address] [place], [address] 08/21/2023 22:28:59 08/21/19 24 08/21/2023 COMPL ETE BLOOD COUNT W/DIF F immature grans % 0.4 Not Available [address] [place], [address] 08/21/2023 22:28:59 08/21/19 24 08/21/2023 COMPL ETE BLOOD COUNT W/DIF F nucleated RBC 0.0 % 0.0-0. 3 normal Not Available [address] [place], [address] 08/21/2023 22:28:59 08/21/19 24 08/21/2023 COMPL ETE BLOOD COUNT W/DIF F absolute neutrophil count 5.45 10_3/ uL 1.2-6. 7 normal Not Available [address] [place], [address] 08/21/2023 22:28:59 08/21/19 24 08/21/2023 COMPL ETE BLOOD COUNT W/DIF F absolute lymphocyte count 1.07 10_3/ uL 1.2-3. 4 low Not Available [address] [place], [address] 08/21/2023 22:28:59 08/21/19 24 08/21/2023 COMPL ETE BLOOD COUNT W/DIF F absolute monocyte count 0.43 10_3/ uL 0.1-0. 8 normal Not Available [address] [place], [address] 08/21/2023 22:28:59 08/21/19 24 08/21/2023 COMPL ETE BLOOD COUNT W/DIF F absolute eosinophil count 0.03 10_3/ uL 0.0-0. 7 normal Not Available [address] [place], [address] 08/21/2023 22:28:59 08/21/19 24 08/21/2023 COMPL ETE BLOOD COUNT W/DIF F absolute basophil count 0.03 10_3/ uL 0.0-0. 2 normal Not Available [address] [place], [address] 08/21/2023 22:28:59 08/21/19 24 08/21/2023 COMPR EHENS JES METAB OLIC PANEL calcium 9.8 mg/dL 8.5-10 .1 normal Not Available [address] [place], [address] 08/21/2023 22:58:02 08/21/19 24 08/21/2023 COMPR EHENS JES METAB OLIC PANEL glucose 207 mg/dL 74-106 high Not Available Kalpesh casillas [address] [place], [address] 08/21/2023 22:58:02 08/21/19 24 08/21/2023 COMPR EHENS JES METAB OLIC PANEL BUN 17 mg/dL 7-18 normal Not Available Kalpesh casillas [address] [place], [address] 08/21/2023 22:58:02 08/21/19 24 08/21/2023 COMPR EHENS JES METAB OLIC PANEL creatinine 0.9 mg/dL 0.55-1 .02 normal Not Available [address] [place], [address] 08/21/2023 22:58:02 08/21/19 24 08/21/2023 COMPR EHENS [...] young er-ag ed adult s. Not Available [address] [place], [address] 08/21/2023 22:58:02 08/21/19 24 08/21/2023 COMPR EHENS JES METAB OLIC PANEL total protein 8.1 g/dL 6.4-8. 2 normal Not Available [address] [place], [address] 08/21/2023 22:58:02 08/21/19 24 08/21/2023 COMPR EHENS JES METAB OLIC PANEL albumin 4.0 g/dL 3.4-5. 0 normal Not Available [address] [place], [address] 08/21/2023 22:58:02 08/21/19 24 08/21/2023 COMPR EHENS JES METAB OLIC PANEL bilirubin, total 0.7 mg/dL 0.2-1. 0 normal Not Available [address] [place], [address] 08/21/2023 22:58:02 08/21/19 24 08/21/2023 COMPR EHENS JES METAB OLIC PANEL alk phos 104 U/L 46-116 normal Not Available [address] [place], [address] 08/21/2023 22:58:02 08/21/19 24 08/21/2023 COMPR EHENS JES METAB OLIC PANEL sodium 137 mmol/ L 136-14 5 normal Not Available [address] [place], [address] 08/21/2023 22:58:02 08/21/19 24 08/21/2023 COMPR EHENS JES METAB OLIC PANEL potassium 4.3 mmol/ L 3.5-5. 1 normal Not Available [address] [place], [address] 08/21/2023 22:58:02 08/21/19 24 08/21/2023 COMPR EHENS JES METAB OLIC PANEL chloride 100 mmol/ L 98-107 normal Not Available [address] [place], [address] 08/21/2023 22:58:02 08/21/19 24 08/21/2023 COMPR EHENS JES METAB OLIC PANEL CO2 30.1 mmol/ L 21.0-3 2.0 normal Not Available [address] [place], [address] 08/21/2023 22:58:02 08/21/19 24 08/21/2023 COMPR EHENS JES METAB OLIC PANEL anion gap 6.9 mmol/ L 3-11 normal Not Available [address] [place], [address] 08/21/2023 22:58:02 08/21/19 24 08/21/2023 COMPR EHENS JES METAB OLIC PANEL AST 32 U/L 15-37 normal Not Available Kalpesh [address] [place], [address] 08/21/2023 22:58:02 08/21/19 24 08/21/2023 COMPR EHENS JES METAB OLIC PANEL ALT 47 U/L 14-59 normal Not Available Kalpesh [place] [address] [place], [address] 08/21/2023 22:58:02 08/21/1908/21/2023 ETHYL ALCOH OL ethyl [...] conve rt to %(w/v ) Not Available [address] [place], [address] 08/21/2023 22:58:03 08/21/19 24 08/21/2023 MAGNE SIUM magnesium 2.1 mg/dL 1.8-2. 4 normal Not Available [address] [place], [address] 08/21/2023 22:58:04 08/21/19 24 08/21/2023 CARDI AC TROPO KANWAL I cardiac troponin I < 50 NG/L < or =60 Not Available [address] [place], [address] 08/21/2023 22:58:05 08/22/19 24 08/22/2023 URINE DRUG SCREE N ([facility] ) methadone Negati ve negati ve Not Available [address] [place], [address] 08/22/2023 00:55:06 08/22/19 24 08/22/2023 URINE DRUG SCREE N ([facility] ) benzodiazepi yoselyn Negati ve negati ve Benzo diaze pines are exten sivel y metab olize d and the paren t compo und may not be detec tarsha in urine . If clini elizabeth suspi cion is high, pleas e notif y Lab for send- out testi ng. Not Available [address] [place], [address] 08/22/2023 00:55:06 08/22/19 24 08/22/2023 URINE DRUG SCREE N ([facility] ) cocaine Negati ve negati ve Not Available [address] [place], [address] 08/22/2023 00:55:06 08/22/19 24 08/22/2023 URINE DRUG SCREE N ([facility] ) amphetamines Negati ve negati ve Not Available [address] [place], [address] 08/22/2023 00:55:06 08/22/19 24 08/22/2023 URINE DRUG SCREE N ([facility] ) tetrahydroca nnabinol Positi ve negati ve abnormal Not Available [address] [place], [address] 08/22/2023 00:55:06 08/22/19 24 08/22/2023 URINE DRUG SCREE N ([facility] ) opiates Negati ve negati ve Not Available [address] [place], [address] 08/22/2023 00:55:06 08/22/19 24 08/22/2023 URINE DRUG SCREE N ([facility] ) barbiturates Negati ve negati ve Not Available [address] [place], [address] 08/22/2023 00:55:06 08/22/19 24 08/22/2023 URINE DRUG [...] tion of these resul ts. Not Available [address] [place], [address] 08/22/2023 00:55:06 12/07/19 24 12/07/2023 COMPL ETE BLOOD COUNT W/DIF F WBC 5.74 10_3/ uL 4.4-10 .8 normal Not Available [address] [place], [address] 12/07/2023 13:34:31 12/07/19 24 12/07/2023 COMPL ETE BLOOD COUNT W/DIF F RBC 4.11 10_6/ uL 3.93-5 .22 normal Not Available [address] [place], [address] 12/07/2023 13:34:31 12/07/19 24 12/07/2023 COMPL ETE BLOOD COUNT W/DIF F HGB 12.7 g/dL 11.2-1 5.7 normal Not Available [address] [place], [address] 12/07/2023 13:34:31 12/07/19 24 12/07/2023 COMPL ETE BLOOD COUNT W/DIF F HCT 37.6 % 36.0-4 6.0 normal Not Available [address] [place], [address] 12/07/2023 13:34:31 12/07/19 24 12/07/2023 COMPL ETE BLOOD COUNT W/DIF F MCV 92 fL 80-95 normal Not Available [address] [place], [address] 12/07/2023 13:34:31 12/07/19 24 12/07/2023 COMPL ETE BLOOD COUNT W/DIF F MCH 30.9 pg 27.0-3 3.0 normal Not Available [address] [place], [address] 12/07/2023 13:34:31 12/07/19 24 12/07/2023 COMPL ETE BLOOD COUNT W/DIF F MCHC 33.8 % 32.0-3 6.0 normal Not Available [address] [place], [address] 12/07/2023 13:34:31 12/07/19 24 12/07/2023 COMPL ETE BLOOD COUNT W/DIF F RDW 12.2 % 11.7-1 4.6 normal Not Available [address] [place], [address] 12/07/2023 13:34:31 12/07/19 24 12/07/2023 COMPL ETE BLOOD COUNT W/DIF F platelet count 178 10_3/ uL 130-40 0 normal Not Available [address] [place], [address] 12/07/2023 13:34:31 12/07/19 24 12/07/2023 COMPL ETE BLOOD COUNT W/DIF F MPV 9.6 fL 8.0-11 .0 normal Not Available [address] [place], [address] 12/07/2023 13:34:31 12/07/19 24 12/07/2023 COMPL ETE BLOOD COUNT W/DIF F neutrophils % 55.2 % Not Available [address] [place], [address] 12/07/2023 13:34:31 12/07/19 24 12/07/2023 COMPL ETE BLOOD COUNT W/DIF F lymphocytes % 34.0 % Not Available [address] [place], [address] 12/07/2023 13:34:31 12/07/19 24 12/07/2023 COMPL ETE BLOOD COUNT W/DIF F monocytes % 8.9 % Not Available [address] [place], [address] 12/07/2023 13:34:31 12/07/19 24 12/07/2023 COMPL ETE BLOOD COUNT W/DIF F eosinophils % 0.9 % Not Available [address] [place], [address] 12/07/2023 13:34:31 12/07/19 24 12/07/2023 COMPL ETE BLOOD COUNT W/DIF F basophils % 0.7 % Not Available [address] [place], [address] 12/07/2023 13:34:31 12/07/19 24 12/07/2023 COMPL ETE BLOOD COUNT W/DIF F immature grans % 0.3 % Not Available [address] [place], [address] 12/07/2023 13:34:31 12/07/19 24 12/07/2023 COMPL ETE BLOOD COUNT W/DIF F nucleated RBC 0.0 % 0.0-0. 3 normal Not Available [address] [place], [address] 12/07/2023 13:34:31 12/07/19 24 12/07/2023 COMPL ETE BLOOD COUNT W/DIF F absolute neutrophil count 3.17 10_3/ uL 1.2-6. 7 normal Not Available [address] [place], [address] 12/07/2023 13:34:31 12/07/19 24 12/07/2023 COMPL ETE BLOOD COUNT W/DIF F absolute lymphocyte count 1.95 10_3/ uL 1.2-3. 4 normal Not Available [address] [place], [address] 12/07/2023 13:34:31 12/07/19 24 12/07/2023 COMPL ETE BLOOD COUNT W/DIF F absolute monocyte count 0.51 10_3/ uL 0.1-0. 8 normal Not Available [address] [place], [address] 12/07/2023 13:34:31 12/07/19 24 12/07/2023 COMPL ETE BLOOD COUNT W/DIF F absolute eosinophil count 0.05 10_3/ uL 0.0-0. 7 normal Not Available [address] [place], [address] 12/07/2023 13:34:31 12/07/19 24 12/07/2023 COMPL ETE BLOOD COUNT W/DIF F absolute basophil count 0.04 10_3/ uL 0.0-0. 2 normal Not Available [address] [place], [address] 12/07/2023 13:34:31 12/07/19 24 12/07/2023 COMPR EHENS JES METAB OLIC PANEL calcium 9.1 mg/dL 8.5-10 .1 normal Not Available [address] [place], [address] 12/07/2023 13:53:40 12/07/19 24 12/07/2023 COMPR EHENS JES METAB OLIC PANEL glucose 154 mg/dL 74-106 high Not Available Kalpesh [address] [place], [address] 12/07/2023 13:53:40 12/07/19 24 12/07/2023 COMPR EHENS JES METAB OLIC PANEL BUN 21 mg/dL 7-18 high Not Available Kalpesh [place]illas [address] [place], [address] 12/07/2023 13:53:40 12/07/19 24 12/07/2023 COMPR EHENS JES METAB OLIC PANEL creatinine 0.9 mg/dL 0.55-1 .02 normal Not Available [address] [place], [address] 12/07/2023 13:53:40 12/07/19 24 12/07/2023 COMPR EHENS [...] young er-ag ed adult s. Not Available [address] [place], [address] 12/07/2023 13:53:40 12/07/19 24 12/07/2023 COMPR EHENS JES METAB OLIC PANEL total protein 7.1 g/dL 6.4-8. 2 normal Not Available [address] [place], [address] 12/07/2023 13:53:40 12/07/19 24 12/07/2023 COMPR EHENS JES METAB OLIC PANEL albumin 3.5 g/dL 3.4-5. 0 normal Not Available [address] [place], [address] 12/07/2023 13:53:40 12/07/19 24 12/07/2023 COMPR EHENS JES METAB OLIC PANEL bilirubin, total 0.6 mg/dL 0.2-1. 0 normal Not Available [address] [place], [address] 12/07/2023 13:53:40 12/07/19 24 12/07/2023 COMPR EHENS JES METAB OLIC PANEL alk phos 106 U/L 46-116 normal Not Available [address] [place], [address] 12/07/2023 13:53:40 12/07/19 24 12/07/2023 COMPR EHENS JES METAB OLIC PANEL sodium 139 mmol/ L 136-14 5 normal Not Available [address] [place], [address] 12/07/2023 13:53:40 12/07/19 24 12/07/2023 COMPR EHENS JES METAB OLIC PANEL potassium 4.4 mmol/ L 3.5-5. 1 normal Not Available [address] [place], [address] 12/07/2023 13:53:40 12/07/19 24 12/07/2023 COMPR EHENS JES METAB OLIC PANEL chloride 104 mmol/ L 98-107 normal Not Available [address] [place], [address] 12/07/2023 13:53:40 12/07/19 24 12/07/2023 COMPR EHENS JES METAB OLIC PANEL CO2 29.8 mmol/ L 21.0-3 2.0 normal Not Available [address] [place], [address] 12/07/2023 13:53:40 12/07/19 24 12/07/2023 COMPR EHENS JES METAB OLIC PANEL anion gap 5.2 mmol/ L 3-11 normal Not Available [address] [place], [address] 12/07/2023 13:53:40 12/07/19 24 12/07/2023 COMPR EHENS JES METAB OLIC PANEL AST 39 U/L 15-37 high Not Available [address] [place], [address] 12/07/2023 13:53:40 12/07/19 24 12/07/2023 COMPR EHENS JES METAB OLIC PANEL ALT 48 U/L 14-59 normal Not Available Kalpesh casillas [address] [place], [address] 12/07/2023 13:53:40 12/07/19 24 12/07/2023 TROPO KANWAL I troponin I < 50 NG/L < or =60 Not Available [address] [place], [address] 12/07/2023 13:53:40 12/07/19 24 12/07/2023 PROTH ROMBI N TIME prothrombin time 10.9 sec 9.1-11 .1 normal Not Available [address] [place], [address] 12/07/2023 14:14:40 12/07/19 24 12/07/2023 PROTH ROMBI N TIME INR 1.1 0.9-1. 1 normal Recom celia d INR thera peuti c range s for orall y admin ister ed drugs are as follo ws: -[place] Inten sity 2.0 to 3.0 -High er Inten sity 3.0 to 4.5 Not Available [address] [place], [address] 12/07/2023 14:14:40 12/07/19 24 12/07/2023 PTT ACTIV ATED PTT activated 23.4 sec 23.6-3 2.8 low Hepar in Thera peuti c Range for PTT = 52-84 secon ds New Hepar in Thera peuti c Range 09/08 Not Available [address] [place], [address] 12/07/2023 14:14:41 12/07/19 24 12/07/2023 TROPO KANWAL I troponin I < 50 NG/L < or =60 Not Available [address] [place], [address] 12/07/2023 16:25:17 02/15/20 24 02/15/2024 COMPL ETE BLOOD COUNT W/DIF F WBC 4.55 10_3/ uL 4.4-10 .8 normal Not Available [address] [place], [address] 02/15/2024 10:39:22 02/15/20 24 02/15/2024 COMPL ETE BLOOD COUNT W/DIF F RBC 4.67 10_6/ uL 3.93-5 .22 normal Not Available [address] [place], [address] 02/15/2024 10:39:22 02/15/20 24 02/15/2024 COMPL ETE BLOOD COUNT W/DIF F HGB 14.3 g/dL 11.2-1 5.7 normal Not Available [address] [place], [address] 02/15/2024 10:39:22 02/15/20 24 02/15/2024 COMPL ETE BLOOD COUNT W/DIF F HCT 42.4 % 36.0-4 6.0 normal Not Available [address] [place], [address] 02/15/2024 10:39:22 02/15/20 24 02/15/2024 COMPL ETE BLOOD COUNT W/DIF F MCV 91 fL 80-95 normal Not Available [address] [place], [address] 02/15/2024 10:39:22 02/15/20 24 02/15/2024 COMPL ETE BLOOD COUNT W/DIF F MCH 30.6 pg 27.0-3 3.0 normal Not Available [address] [place], [address] 02/15/2024 10:39:22 02/15/20 24 02/15/2024 COMPL ETE BLOOD COUNT W/DIF F MCHC 33.7 % 32.0-3 6.0 normal Not Available [address] [place], [address] 02/15/2024 10:39:22 02/15/20 24 02/15/2024 COMPL ETE BLOOD COUNT W/DIF F RDW 12.3 % 11.7-1 4.6 normal Not Available [address] [place], [address] 02/15/2024 10:39:22 02/15/20 24 02/15/2024 COMPL ETE BLOOD COUNT W/DIF F platelet count 189 10_3/ uL 130-40 0 normal Not Available [address] [place], [address] 02/15/2024 10:39:22 02/15/20 24 02/15/2024 COMPL ETE BLOOD COUNT W/DIF F MPV 9.8 fL 8.0-11 .0 normal Not Available [address] [place], [address] 02/15/2024 10:39:22 02/15/20 24 02/15/2024 COMPL ETE BLOOD COUNT W/DIF F neutrophils % 56.9 % Not Available [address] [place], [address] 02/15/2024 10:39:22 02/15/20 24 02/15/2024 COMPL ETE BLOOD COUNT W/DIF F lymphocytes % 33.2 % Not Available [address] [place], [address] 02/15/2024 10:39:22 02/15/20 24 02/15/2024 COMPL ETE BLOOD COUNT W/DIF F monocytes % 8.1 % Not Available [address] [place], [address] 02/15/2024 10:39:22 02/15/20 24 02/15/2024 COMPL ETE BLOOD COUNT W/DIF F eosinophils % 0.9 % Not Available [address] [place], [address] 02/15/2024 10:39:22 02/15/20 24 02/15/2024 COMPL ETE BLOOD COUNT W/DIF F basophils % 0.7 % Not Available [address] [place], [address] 02/15/2024 10:39:22 02/15/20 24 02/15/2024 COMPL ETE BLOOD COUNT W/DIF F immature grans % 0.2 % Not Available [address] [place], [address] 02/15/2024 10:39:22 02/15/20 24 02/15/2024 COMPL ETE BLOOD COUNT W/DIF F nucleated RBC 0.0 % 0.0-0. 3 normal Not Available [address] [place], [address] 02/15/2024 10:39:22 02/15/20 24 02/15/2024 COMPL ETE BLOOD COUNT W/DIF F absolute neutrophil count 2.59 10_3/ uL 1.2-6. 7 normal Not Available [address] [place], [address] 02/15/2024 10:39:22 02/15/20 24 02/15/2024 COMPL ETE BLOOD COUNT W/DIF F absolute lymphocyte count 1.51 10_3/ uL 1.2-3. 4 normal Not Available [address] [place], [address] 02/15/2024 10:39:22 02/15/20 24 02/15/2024 COMPL ETE BLOOD COUNT W/DIF F absolute monocyte count 0.37 10_3/ uL 0.1-0. 8 normal Not Available [address] [place], [address] 02/15/2024 10:39:22 02/15/20 24 02/15/2024 COMPL ETE BLOOD COUNT W/DIF F absolute eosinophil count 0.04 10_3/ uL 0.0-0. 7 normal Not Available [address] [place], [address] 02/15/2024 10:39:22 02/15/20 24 02/15/2024 COMPL ETE BLOOD COUNT W/DIF F absolute basophil count 0.03 10_3/ uL 0.0-0. 2 normal Not Available [address] [place], [address] 02/15/2024 10:39:22 02/15/20 24 02/15/2024 ESR ESR 12 mm/HR 0-20 normal Not Available [address] [place], [address] 02/15/2024 10:53:16 02/15/20 24 02/15/2024 D-DIM ER D-dimer 886 NG/ml feu <500 high *Lite ratur e suppo rts the exclu marysol of DVT and/o r PE with a resul t less than 500 ng/ml FEU with this metho d.* Not Available [address] [place], [address] 02/15/2024 11:17:25 02/15/20 24 02/15/2024 COMPR EHENS JES METAB OLIC PANEL calcium 9.4 mg/dL 8.5-10 .1 normal Not Available [address] [place], [address] 02/15/2024 11:28:26 02/15/20 24 02/15/2024 COMPR EHENS JES METAB OLIC PANEL glucose 339 mg/dL 74-106 high Not Available Kalpesh [address] [place], [address] 02/15/2024 11:28:26 02/15/20 24 02/15/2024 COMPR EHENS JES METAB OLIC PANEL BUN 15 mg/dL 7-18 normal Not Available Kalpesh [address] [facility] [place], [address] 02/15/2024 11:28:26 02/15/20 24 02/15/2024 COMPR EHENS JES METAB OLIC PANEL creatinine 0.9 mg/dL 0.55-1 .02 normal Not Available [address] [place], [address] 02/15/2024 11:28:26 02/15/20 24 02/15/2024 COMPR EHENS [...] young er-ag ed adult s. Not Available [address] [place], [address] 02/15/2024 11:28:26 02/15/20 24 02/15/2024 COMPR EHENS JES METAB OLIC PANEL total protein 8.0 g/dL 6.4-8. 2 normal Not Available [address] [place], [address] 02/15/2024 11:28:26 02/15/20 24 02/15/2024 COMPR EHENS JES METAB OLIC PANEL albumin 3.9 g/dL 3.4-5. 0 normal Not Available [address] [place], [address] 02/15/2024 11:28:26 02/15/20 24 02/15/2024 COMPR EHENS JES METAB OLIC PANEL bilirubin, total 0.77 mg/dL 0.2-1. 0 normal Not Available [address] [place], [address] 02/15/2024 11:28:26 02/15/20 24 02/15/2024 COMPR EHENS JES METAB OLIC PANEL alk phos 161 U/L 46-116 high Not Available [address] [place], [address] 02/15/2024 11:28:26 02/15/20 24 02/15/2024 COMPR EHENS JES METAB OLIC PANEL sodium 136 mmol/ L 136-14 5 normal Not Available [address] [place], [address] 02/15/2024 11:28:26 02/15/20 24 02/15/2024 COMPR EHENS JES METAB OLIC PANEL potassium 4.3 mmol/ L 3.5-5. 1 normal Not Available [address] [place], [address] 02/15/2024 11:28:26 02/15/20 24 02/15/2024 COMPR EHENS JES METAB OLIC PANEL chloride 99 mmol/ L 98-107 normal Not Available [address] [place], [address] 02/15/2024 11:28:26 02/15/20 24 02/15/2024 COMPR EHENS JES METAB OLIC PANEL CO2 30.9 mmol/ L 21.0-3 2.0 normal Not Available [address] [place], [address] 02/15/2024 11:28:26 02/15/20 24 02/15/2024 COMPR EHENS JES METAB OLIC PANEL anion gap 6.1 mmol/ L 3-11 normal Not Available [address] [place], [address] 02/15/2024 11:28:26 02/15/20 24 02/15/2024 COMPR EHENS JES METAB OLIC PANEL AST 36 U/L 15-37 normal Not Available [address] [place], [address] 02/15/2024 11:28:26 02/15/20 24 02/15/2024 COMPR EHENS JES METAB OLIC PANEL ALT 46 U/L 14-59 normal Not Available [address] [place], [address] 02/15/2024 11:28:26 02/15/20 24 02/15/2024 C-KATIE CTIVE PROTE IN C-reactive protein < 0.50 mg/dL <or=0. 5 Not Available [address] [place], [address] 02/15/2024 11:24:26 02/15/20 24 02/15/2024 C-KATIE CTIVE PROTE IN C-reactive protein < 0.50 mg/dL <or=0. 5 Not Available [address] [facility] [place], [address] 02/15/2024 11:28:27 07/05/20 23 07/05/2023 elect sola bergeron am EKG PATIMARIANNA T NAME: Kailey Hernandez UNIT #: [id number] ORDERI NG PROVID ER: Ilda Angeles M.D. ACCOUN T #: [id number] PRIMAR Y CARE PROVID ER: JENNIFER ON,CEASAR FRANCO DATE/T ARELY OF SER VICE: 1146 : 1974 PERFOR OSCAR LOCATI ON: ER ------ ------ --- APPROV ED REPORT ------ ------ -- Exam: Restin g ECG Reason for Exam: syncop e Laly sebastian Locati on: E HR:74 bpm ECG Measur ements Heart Rate [address] 147 P 73 QRSd 106 QRS -66 QT 393 T 66 QTc 435 Conclu marysol Sinus rhythm ..., V-rate 60- 99 Approp riate interv als. 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 Right middle cerebr al artery : No occlus ion or signif icant stenos is. No aneury sm. Right anteri or cerebr al artery : Absent right A1 segmen t which can be a normal varian t. 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 Left middle cerebr al artery : No occlus ion or signif icant stenos is. No aneury sm. Left anteri or cerebr al artery : No occlus ion or signif icant stenos is. No aneury sm. SWEETBREAD TRIMMER IOR CIRCUL ATION: Right verteb ral artery : No occlus ion or signif icant stenos is. No aneury sm. Left verteb ral artery : No occlus ion or signif icant stenos is. No aneury sm. Basila r artery : No occlus ion or signif icant stenos is. No aneury sm. Right parking lot attendant and cashier ior cerebr al artery : No occlus ion or signif icant stenos is. No aneury sm. Left parking lot attendant and cashier ior cerebr al artery : No occlus [...] No large vessel occlus ion at the [place]. 3. Absent right A1 segmen [...] No dissec tion or occlus ion. Right intelligence intern al caroti d artery : No stenos is of the extrac ranial segmen t. No dissec tion or occlus ion. Right bladder trimmer al caroti d artery : No occlus ion or stenos is of the origin . Left common caroti d artery : No stenos is. No dissec tion or occlus ion. Left intelligence intern al caroti d artery : No stenos is of the extrac ranial segmen t. No dissec tion or occlus ion. Left bladder trimmer al caroti d artery : No occlus [...] the cervic al segmen t of the intelligence intern al caroti d artery is based on NASCET criter ia. Normal is no stenos is. Mild is less than 50% stenos is. Modera te is 50-69% stenos is. Severe is 70% to 99% stenos is. Total occlus ion is no detect able patent lumen. Dictat ed and Authen ticate d by: Debby Albert i, MD. Orderi ng:uCrry gee MD Access ion#=[id number] Ordere d By: CC: ------ ------ [...] error, please notify us immedi ately at [phone] and return the origin al report to us at the addres s above. Thank- you. amarjit [facility] [address] [place], [address] 07/06/2023 16:20:17 07/05/20 23 07/05/2023 vrad repor t Patimarianna t Name: Kailey Hernandez Unit #: [id number] Loc: ER Orderi ng Provid er: Accoun t #: [id number] Status : REG ER Primar y [...] ng:Curry OCJ Karthik gee MD Access ion#=[id number] Joel to By: CC: ------ ------ [...] the addres s above. Thank- you. amarjit [facility] [address], [place], [address] 07/06/2023 16:20:19 07/05/20 23 07/05/2023 ED visit note ED Visit Note LALY Sebastian NAME: Kailey Hernandez UNIT #: [id number] ADMITT ING PROVID ER: Ilda Angeles M.D. ACCOUN T #: [id number] PRIMAR Y CARE PROVID ER: CEASAR [...] n: Hypogl ycemia ) aspiri n [Child arati's Aspiri n] 81 mg tablet ,chewa ble [...] moveme nts to sugges t seizur e. [facility] record s review ed includ [...] alitie s to sugges t occlus jes [place]. Tropon in negati ve x 2 -CT [...] No large vessel occlus ion at the [place]. 3. Absent right A1 segmen [...] error, please notify us immedi ately at [phone] and return the origin al report to us at the addres s above. Thank you. amarjit [facility] [address] [place], [address] 07/06/2023 16:20:17 07/05/20 23 07/05/2023 CT imagi ng repor t Patien t Name: Kailey Hernandez Unit #: [id number] Loc: ER Orderi ng Provid er: Ilda Angeles M.D. Accoun t #: [id number] Status : REG ER Primar y Care [...] facili ty are submit tarsha to the [facility] Radiol ogy Data Regist ry (NRDR) [...] bution by any person other than this [facility] er is strict ly prohib ited. If you receiv e this report in error, please notify us immedchaka olson at and return the origin al report to us at the addres s above. Thank- you. amarjit [facility] [address] , [place], [address] 07/06/2023 16:20:20 07/05/20 23 07/05/2023 CT imagi ng repor t Patien t Name: Kailey Hernandez Unit #: [id number] Loc: ER Orderi ng Provid er: Ilda Angeles M.D. t #: [id number] Status : REG ER Primar y Care [...] the caroti d bulbs and proxim al intelligence intern al caroti d arteri es there is no signif icant plaque and no signif icant stenos is eviden t. Both intelligence intern al caroti d arteri es are patent in the upper neck and skull base-c arotid canals . Credentials Specialist ior circul ation: Both verteb ral arteri [...] Brain W: Anteri or circul ation: Both intelligence intern al caroti d arteri es are patent in the skull base-c arotid canals as well as within the cavern ous sinuse s. Suprac linoid aspect s of both intelligence intern al caroti d arteri es are [...] no aneury sms of these vessel s. Credentials Specialist ior circul ation: The basila r artery ascend s in the midlin e. Distal ly it gives off patent bilate ral superi or cerebe llar arteri es. Above this level the basila r artery termin ates as patent bilate ral parking lot attendant and cashier ior cerebr al arteri es. There is a parking lot attendant and cashier ior commun icatin g artery noted on the left side of the [place]. There is no eviden ce of aneury sm at the tip of the basila r artery nor elsewh ere in the [place]. CT BRAIN: There is no [...] facili ty are submit tarsha to the [facility] al Radiol ogy Data Regist ry (NRDR) Dose Index Regist ry (DIR) with the [place] of Radiol ogy (ACR). RADIAT ION OPTIMI ZATION : All CT scans at this [facility] ty use at least one [...] Doll M.D. 1915 Transc ribed By: Sharmila DUNCAN,Edagr bianca 1916 This is privil eged, confid ential inform ation intend ed only for the provid er named. Any use or distri bution by any person other than this provid er is strict ly prohib ited. If you receiv e this report in error, please notify us immedi ately at [phone] and return the origin al report to us at the addres s above. Thank- you. amarjit [facility] [address] [place], [address] 07/06/2023 16:20:20 07/06/20 23 07/05/2023 elect sola bergeron am EKG PATIMARIANNA T NAME: Kailey Hernandez UNIT #: [id number] ORDERI NG PROVID ER: Ilda Angeles M.D. ACCOUN T #: [id number] PRIMAR Y CARE PROVID ER: CEASAR TURNER DATE/T ARELY OF SER VICE: 1146 : 1974 PERFOR OSCAR LOCATI ON: ER ------ ------ --- APPROV ED REPORT ------ ------ -- Exam: Restin g ECG Reason for Exam: syncop e Laly sebastian Locati on: E HR:74 bpm ECG Measur ements Heart Rate [address] 147 P 73 QRSd 106 QRS -66 QT 393 T 66 QTc 435 Conclu marysol Sinus rhythm ..., V-rate 60- 99 Approp riate interv als. No ST segmen t or T wave abnorm alitie s to sugges t occlus jes HI ------ ------ ------ ------ ------ ------ ------ ------ ------ ------ ------ ------ ------ ------ ------ ------ ---- ------ - E-Sign Date: E-Sign Time: 1159 ------ ------ --- ADDEND UM APPROV ED REPORT ------ ------ -- Exam: Restin g ECG Reason for Exam: syncop e Laly sebastian Locati on: E HR:74 bpm ECG Measur ements Heart Rate [address] 147 P 73 QRSd 106 QRS -66 QT 393 T 66 QTc 435 Conclu marysol Sinus rhythm ..., V-rate 60- 99 Approp riate interv als. No ST segmen t or T wave abnorm alitie s to sugges t occlus jes HI I have review ed and I agree with the emerge ncy room physic kristie's ECG interp retati on. Electr onical ly signed by: [id number] Cosign ed by: amarjit [facility] [address] [place] [address] [place], [address] 07/06/2023 16:20:18 08/21/19 24 08/21/2023 elect sola bergeron am EKG LALY Sebastian NAME: David Kailey A UNIT #: [id number] ORDERI NG PROVID ER: Ilda Angeles M.D. ACCOUN T #: [id number] PRIMAR Y CARE PROVID ER: JENNIFERCEASAR SAUNDERS JOAN DATE/T ARELY OF SER VICE: 2217 : 1974 PERFOR OSCAR LOCATI ON: ER ------ ------ --- APPROV ED REPORT ------ ------ -- Exam: Restin g ECG Reason for Exam: vomiti amanda Patimarianna t Locati on: E HR:73 bpm ECG Measur ements Heart Rate [address] 149 P 68 QRSd 114 QRS 1 QT 395 T 67 QTc 437 Conclu marysol Sinus rhythm ..V-ra te 60- 99 Approp riate interv als. No ST segmen t or T wave abnorm jason soriano to micah t occlus jes HI ------ ------ ------ ------ ------ ------ ------ ------ ------ ------ ------ ------ ------ ------ ------ ------ ---- ------ - E-Sign Date: E-Sign Time: 2230 [email or web address] [facility] [address] [place] [address] [place], [address] 08/24/2023 07:32:07 08/21/1908/21/2023 ED visit note ED Visit Note LALY T NAME: Kailey Hernandez UNIT #: [id number] ADMITT ING PROVID ER: Ilda Angeles M.D. ACCOUN T #: [id number] PRIMAR Y CARE PROVID ER: CEASAR [...] alitie s to sugges t occlus jes HI. 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 Thank you. amarjit [facility] [address], [place], [address] 08/24/2023 07:32:07 08/22/19 24 08/22/2023 ED progr ess note ED Progre ss Note PATIEN T NAME: Kailey Hernandez UNIT #: [id number] ADMITT ING PROVID ER: Richard Savage DO ACCOUN T #: [id number] PRIMAR Y CARE PROVID ER: CEASAR [...] in this chart was dictat ed using [employer]em[employer] dictat ion softwa re. Please excuse any [...] the addres s above. Thank you. amarjit [facility] [address] [place], [address] 08/24/2023 07:32:07 08/28/1908/21/2023 cesar bergeron am EKG LALY T NAME: Kailey Hernandez UNIT #: [id number] ORDERI NG PROVID ER: Ilda Angeles M.D. ACCCOOKIE T #: [id number] PRIMAR Y CARE PROVID ER: CEASAR TURNER DATE/T ARELY OF SER VICE: 2217 : 1974 QUIN[facility]ORE LOCATI ON: ER ------ ------ --- APPROV ED REPORT ------ ------ -- Exam: Restin g ECG Reason for Exam: vomiti ng Patien t Locati on: E HR:73 bpm ECG Measur ements Heart Rate [address] 149 P 68 QRSd 114 QRS 1 QT 395 T 67 QTc 437 Conclu marysol Sinus rhythm ..V-ra te 60- 99 Approp riate interv als. No ST segmen t or T wave abnorm alitie s to sugges t occlus jes HI ------ ------ ------ ------ ------ ------ ------ ------ ------ ------ ------ ------ ------ ------ ------ ------ ---- ------ - E-Sign Date: E-Sign Time: 2229 ------ ------ --- ADDEND UM APPRO ED REPORT ------ ------ -- Exam: Restin g ECG Reason for Exam: vomiti ng Patien t Locati on: E HR:73 bpm ECG Measur ements Heart Rate [address] 149 P 68 QRSd 114 QRS 1 QT 395 T 67 QTc 437 Conclu marysol Sinus rhythm ..V-ra te 60- 99 Approp riate interv als. No ST segmen t or T wave abnorm alitie s to sugges t occlus jes HI I have review ed and I agree with the emerge ncy room physic kristie's ECG interp retati on. Electr onical ly signed by: [id number] Cosign ed by: amarjit [facility] [address] [place], [address] 08/28/2023 14:30:56 12/07/19 24 12/07/2023 x-ray imagi ng repor t Patien t Name: Kailey Hernandez Unit #: [id number] Loc: ER Orderi ng Provid er: Ramon Thorpe M.D. Accoun t #: [id number] Status : REG ER Primar y [...] the addres s above. Thank- you. amarjit [facility] [address] [place] [address] [place], [address] 12/07/2023 17:00:11 02/15/20 24 02/15/2024 CT imagi ng alen sebastian Name: Kailey Hernandez Unit #: [id number] Loc: ER Orderi ng Provid er: Julissa Thornton Accoun t #: [id number] Status : REG ER Primar y Care [...] the C4-5 levels both anteri stacy and parking lot attendant and cashier iorly partia l fusion of the C4 and 5 verteb ral bodies as well as the parking lot attendant and cashier ior osseou s elemen ts includ ing the bilate ral facet joints at this level. Other disc spaces exhibi t normal height and other facet joints appear unrema rkable . Calcif ic densit y anteri or to the lower odonto id is unchan ged from [facility] er 2022 No signif icant [...] the addres s above. Thank- you. amarjit [facility] [address] [place], [address] 02/15/2024 12:23:56 02/15/20 24 02/15/2024 CT imagi ng repor t Patien t Name: Kailey Hernandez Unit #: [id number] Loc: ER Orderi ng Provid er: Julissa Thornton Accoun t #: [id number] Status : REG ER Primar y Care [...] the addres s above. Thank- you. amarjit [facility] [address] [place], [address] 02/15/2024 12:23:56 02/15/20 24 02/15/2024 ultra sound imagi ng repor t Patien t Name: Kailey Hernandez Unit #: [id number] Loc: ER Orderi ng Provid er: Julissa Thornton Accoun t #: [id number] Status : REG ER Primar y Care [...] for compar lionel FINDIN GS: The left intelligence intern al jugula r, axilla ry, subcla [...] the addres s above. Thank- you. amarjit [facility] [address], [place], [address] 02/15/2024 14:16:11 02/15/20 24 02/15/2024 CT imagi amanda sebastian Name: Kailey Hernandez Unit #: [id number] Loc: ER Tim patel Provid er: Julissa Thornton Accoun t #: [id number] Status : REG ER Primar y Care [...] in the distal abdomi nal aorta and intelligence intern al iliac arteri es. Pulmon yamilet [...] facili ty are submit tarsha to the [facility] al Radiol ogy Data Regist ry (NRDR) Dose Index Regist ry (DIR) with the [place] of Radiol ogy (ACR). RADIAT ION OPTIMI ZATION : [facility] least one of [...] error, please notify us immedi ately at [phone] and return the origin al report to us at the addres s above. Thank- you. amarjit [facility] [address], [place], [address] 02/15/2024 14:49:16 04/13/20 24 04/13/2024 x-ray jayi amanda sebastian Name: Kailey Hernandez Unit #: [id number] Loc: MILAD Tim patel Provid er: Joel Louis APRN Accoun t #: [id number] Status : REG CLI Primar y [...] clear lung garcia . The latera l rehabilitation worker view of the neck is unrema rkable [...] error, please notify us immedi bradfordly at [phone] and return the origin al report to us at the addres s above. Thank- you. amarjit [facility] [address] [place], [address] 04/13/2024 12:10:55 04/17/20 24 01/03/2022 imagi ng/milad [...] Address Organization Details Recorded Time Hearing loss 76701162 Active 201501/08/20 23 - Comments only - Navin Pittman RPA - Bilatera l, left greater than right. ENT NAVIN PITTMAN PA-C [address], [place], [address] , [facility]. 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 Problem Code: E78.5; Problem Code Type: ICD-10; Not Available [facility] 3 05:05:04 Polyneur opathy 57686114 Active 2015 Problem Code: G62.9; Problem Code Type: ICD-10; Not Available [facility] 3 05:05:04 Chronic kidney disease stage 1 893910262 Active 2015 Problem Code: N18.1; Problem Code Type: ICD-10; Not Available [facility] 3 05:05:04 Pain in left foot 75844452224 9107 Completed 201503/28/2016 Problem Code: M79.672; Problem Code Type: ICD-10; Not Available [facility] 3 05:05:04 Pelvic and perineal pain 638399107 Completed 201604/06/2017 Problem Code: R10.2; Problem Code Type: ICD-10; [address], [place], [address] , [facility] 4 12:48:28 Mild intermit tent asthma 598502257 Active 2018 Problem Code: J45.20; Problem Code Type: ICD-10; Not Available [facility] 3 05:05:04 Gastroes ophageal reflux disease without esophagi tis 957991692 Active 2020 Problem Code: K21.9; Problem Code Type: ICD-10; Not Available [facility] 3 05:05:05 Viral screenin g Completed 202101/04/2022 Problem Code: Z11.59; Problem Code Type: ICD-10; Not Available [facility] 3 05:05:05 Atherosc lerosis of coronary artery without angina pectoris 21370232502 4103 Active 202103/09/20 23 - Comments only - Navin Pittman RPA - STEMI January 2022 with stenting x 2 of RCA. complete d one year of DAPT NAVIN PITTMAN PA-C [address], [place], [address] , [facility] 4 12:47:18 Altered mental status 059946052 Completed 202104/22/2022 Problem Code: R41.82; Problem Code Type: ICD-10; Not Available [facility] 3 05:05:05 Syncope and collapse 787402423 Active 202106/11/20 22 - Comments only - Navin Pittman RPA - recurren t syncope thought to be secondar y to hypoglyc emic episodes . NAVIN PITTMAN PA-C [address], [place], [address] , [facility] 4 12:49:32 Hypergly cemia due to type 1 diabetes mellitus 96507315956 9101 Completed 201504/29/2023 Problem Code: E10.65; Problem Code Type: ICD-10; Not Available [facility] 3 05:05:09 Hyperkal emia 92894933 Completed 201510/09/2016 Problem Code: E87.5; Problem Code Type: ICD-10; Not Available [facility] 3 05:05:10 Endocrin e/metabo lic screenin g Completed 201801/15/2020 Problem Code: Z13.29; Problem Code Type: ICD-10; Not Available [facility] 3 05:05:12 Vaginal bleeding 686808947 Completed 201510/09/2016 Not Available [facility] 3 05:05:12 Hemochro matosis 579239212 Completed 201510/09/2016 Problem Code: E83.119; Problem Code Type: ICD-10; Not Available [facility] 3 05:05:12 Constipa tion 46897138 Completed 201801/15/2020 Problem Code: K59.00; Problem Code Type: ICD-10; Not Available [facility] 3 05:05:14 Disorder of urinary bladder 16569827 Completed 201801/15/2020 Problem Code: N32.89; Problem Code Type: ICD-10; Not Available [facility] 3 05:05:15 Cellulit is of right lower limb 19909376106 203775 Completed 202106/11/2022 Problem Code: L03.115; Problem Code Type: ICD-10; Not Available [facility] 3 05:05:17 Adult health examinat ion Completed 202005/21/2021 Problem Code: Z00.00; Problem Code Type: ICD-10; Not Available [facility] 3 05:05:21 Abdomina l pain 50988853 Completed 201805/21/2021 Problem Code: R10.9; Problem Code Type: ICD-10; Not Available [facility] 3 05:05:22 History of respirat ory disease 571970311 Completed 201801/15/2020 Problem Code: Z87.09; Problem Code Type: ICD-10; Not Available [facility] 3 05:05:25 HIV screenin g Completed 202106/11/2022 Problem Code: Z11.4; Problem Code Type: ICD-10; Not Available [facility] 3 05:05:26 Breast composit ion 537072699 Completed 201505/21/2021 Not Available [facility] 3 05:05:27 Impingem ent syndrome of right shoulder region 76742476203 9102 Completed 201905/21/2021 Problem Code: M75.41; Problem Code Type: ICD-10; Not Available [facility] 3 05:05:28 Blood chemistr y outside referenc e range 706422194 Completed 202109/09/2022 Problem Code: R79.89; Problem Code Type: ICD-10; Not Available [facility] 3 05:05:29 Finding of contents of vagina 760721688 Completed 201510/09/2016 Not Available [facility] 3 05:05:29 Type 1 diabetes mellitus 49226557 Active [address], [place], [address] , [facility] 3 13:22:10 Notes:*Problem Name: Visual acuity, decreased, left eye *Problem Status: active *Comments: *Problem Code: H54.52 *Problem Code Type: ICD-10 *Note Date: 09/27/2015 Problem Notes None recorded. Procedures Surgical History None recorded. Imaging Results Imaging Date Name Status LastModified by Organization Details LastModified Time 07/05/2023 electrocardiogram completed [email or web address] [place] [address] [place], [address] 07/06/2023 16:20:18 07/05/2023 vrad report completed [email or web address] [place] [address] [place], [address] 07/06/2023 16:20:17 07/05/2023 vrad report completed [email or web address] [place] [address] [place], [address] 07/06/2023 16:20:19 07/05/2023 ED visit note completed [email or web address] [place] [address] [place], [address] 07/06/2023 16:20:17 07/05/2023 CT imaging report completed [email or web address] [place] [address] [place], [address] 07/06/2023 16:20:20 07/05/2023 CT imaging report completed [email or web address] [place] [address] [place], [address] 07/06/2023 16:20:20 07/05/2023 electrocardiogram completed [email or web address] [address] [place], [address] 07/06/2023 16:20:18 08/21/2023 electrocardiogram completed amarjit [address] [place], [address] 08/24/2023 07:32:07 08/21/2023 ED visit note completed amarjit [address] [place], [address] 08/24/2023 07:32:07 08/22/2023 ED progress note completed [email or web address] [place] [address] [place], [address] 08/24/2023 07:32:07 08/21/2023 electrocardiogram completed amarjit [address] [place], [address] 08/28/2023 14:30:56 12/07/2023 x-ray imaging report completed amarjit Palacio [address] [place], [address] 12/07/2023 17:00:11 02/15/2024 CT imaging report completed [email or web address] [place] [address] [place], [address] 02/15/2024 12:23:56 02/15/2024 CT imaging report completed [email or web address] [place] [address] [place], [address] 02/15/2024 12:23:56 02/15/2024 ultrasound imaging report completed [email or web address] [place] [address] [place], [address] 02/15/2024 14:16:11 02/15/2024 CT imaging report completed amarjit [address] [place], [address] 02/15/2024 14:49:16 04/13/2024 x-ray imaging report completed [email or web address] [place] [address] [place], [address] 04/13/2024 12:10:55 01/03/2022 imaging/diagnostic result completed 163 [...] Updated DateTime 3 161.925 cm 22.5 kg/m2 96651.7 3 g 98.1 [degF] 16 /min 80 /min 94 mm[Hg] 50 mm[Hg] FELICIANO MUNGUIA RN [facility] 3 10:24:47 Date Recorded Body height Body mass index (BMI) Body weight Body temperature Respiratory rate Heart rate Systolic blood pressure Diastolic blood pressure Provider Name and Address Organization Details Last Updated DateTime 4 161.92 cm 22.5 kg/m2 58123.0 1 g 98.1 [degF] 16 /min 76 /min 90 mm[Hg] 46 mm[Hg] FELICIANO MUNGUIA RN [facility] 4 09:31:55 Date Recorded Body height Body mass index (BMI) Body weight Body temperature Oxygen saturation Oxygen saturation in Arterial blood by Pulse oximetry Heart rate Systolic blood pressure Diastolic blood pressure Provider Name and Address Organization Details Last Updated DateTime 4 161.92 cm 22.7 kg/m2 72738.6 g 98.6 [degF] 100 % 100 % 80 /min 104 mm[Hg] 50 mm[Hg] RAISA ARELLANO RN [facility] 4 10:07:23 Social History Question Answer Notes LastModified by Organizat ion Details LastModified Time Tobacco Smoking Status Never Smoker FELICIANO MUNGUIA RN null, [facility] 06/17/2023 10:29:17 Date Care Plan Printed: 10/02/2023 Information not available 10/02/2023 Assigned Crusher Foreman: Hilda Ring RN Information not available 10/02/2023 Is [facility] The Lead Crusher Foreman? Yes Information not available 10/02/2023 Level Of [...] No Informa tion not available 10/02/2023 Community Associate Scientist Yes Information not available 10/02/2023 Dental Services No Informati on not available 10/02/2023 Diabetes Education Yes Information not available 10/02/2023 Food Resources Yes Informatio n not available 10/02/2023 Fuel Assistance No Informati on not available 10/02/2023 Hospice No Information not available 10/02/2023 Housing Yes Information not available 12/22/2023 Insurance Enrollment No Information not available 10/02/2023 Intermediate Care No Informatio n not available 10/02/2023 Meals On Wheels No Informati on not available 10/02/2023 Medication Assistance No Information not available 10/02/2023 Physical Activity Programs No Information not available 10/02/2023 Longterm No Informati on not available 10/02/2023 Social [...] Not Interested Information not available 10/02/2023 Health Supervisor [employer] For HTN Control No Information not available 10/02/2023 Tobacco Cessation No Informa tion not available 10/02/2023 Weight Loss Program No Information not available 10/02/2023 WRAP No Information not available 10/02/2023 AHS (Seal Mixing Operator) No Information not available 10/02/2023 Adult Protective Services No Information not available 10/02/2023 BAART No Information not available 10/02/2023 Community Behavioral Services No Information not available 10/02/2023 Community Restorative Justice No Information not available 10/02/2023 DCF No Information not available 10/02/2023 Department Of Labor No Information not available 10/02/2023 Economic Services No Informa tion not available 10/02/2023 EMS No Information not available 10/02/2023 [place] [facility] No Information not available 10/02/2023 [employer] No Information not available 10/02/2023 [facility] No Information not available 10/02/2023 NECKA [...] 10/02/2023 [facility] No Information not available 10/02/2023 [place] [facility] No Information not available 10/02/2023 [facility] [employer]ging No Informat ion not available 10/02/2023 Designated Agency No Informa tion not available 10/02/2023 Home Health Agency No Information not available 10/02/2023 Providers Yes Information not available 10/02/[address] [facility] No Information not available 10/02/2023 Other Support [...] Td(adult) unspecified formulation 10/09/2014 completed Not Available [facility] 06/12/2023 06:33:17 Influenza, split virus, trivalent, preservative 04/16/2016 completed Not Available [facility] 06/12/2023 06:33:17 Influenza, split virus, quadrivalent, PF 05/21/2021 completed Not Available [facility] 06/12/2023 06:33:17 Influenza, split virus, quadrivalent, preservative 05/17/2018 completed Not Available [facility] 06/12/2023 06:33:17 SARS-COV-2 (COVID-19) vaccine, UNSPECIFIED 08/09/2021 completed Not Available [facility] 06/12/2023 06:33:17 SARS-COV-2 (COVID-19) vaccine, UNSPECIFIED 12/17/2020 completed Not Available [facility] 06/12/2023 06:33:17 SARS-COV-2 (COVID-19) vaccine, UNSPECIFIED 01/07/2021 completed Not Available [facility] 06/12/2023 06:33:18 pneumococcal polysaccharide PPV23 12/22/2012 completed Not Available [facility] 2022 06:33:18 influenza, unspecified formulation 05/23/2019 completed Not Available [facility] 06/12/2023 06:33:18 Td(adult) unspecified formulation 10/09/2014 completed FELICIANO MUNGUIA RN [facility], [facility] 09/22/2023 14:43:22 Past Encounters Encounter ID Performer Location Encounter Start Date Encounter Closed Date Diagnosis/Indication Diagnosis SNOMED-CT Code Diagnosis ICD10 Code [id number] NAVIN PITTMAN PA-C [facility] [address] [place] [address] 06/17/2023 09:40:59 06/17/2023 10:57:50 Atherosclerosis of coronary artery without angina pectoris 8462045589 04175 I25.10 Chronic ki dney disease stage 1 063073304 N18.1 Hyperlipidemia 65956801 E78.5 Type 1 tio betes mellitus 69243996 E10.8 [id number] NAVIN PITTMAN PA-C [facility] [address] [place] [address] 09/25/2023 09:17:41 09/25/2023 10:04:19 Atherosclerosis of coronary artery without angina pectoris 2315704198 75967 I25.10 Chronic ki dney disease stage 1 939601238 N18.1 Type 1 tio betes mellitus 00581336 E10.8 [id number] NAVIN PITTMAN PA-C [facility] [address] [place] [address] 12/22/2023 09:20:52 12/22/2023 10:59:47 Atherosclerosis of coronary artery without angina pectoris 8488803642 94616 I25.10 Hyperlipidemia 14259495 E78.5 Type 1 tio betes mellitus 11950456 E10.8 Pain of left heel 434037 8964 234588 M79.672 Goals Section Goal Description Status Start [...] ID Guarantor Name 06/17/2023 1 [place] [employer] Kailey Hernandez Silver [id number] 1 Kailey David Silver 06/17/2023 2 [facility] (MEDICAID) Kailey A Silver [id number] Kailey A Silver 09/25/2023 1 [place] [employer] Kailey A Silver [id number] 1 Kailey A Silver 09/25/2023 2 [facility] (MEDICAID) Kailey A Silver [id number] Kailey A Silver 12/22/2023 1 [place] [employer] Kailey A Silver [id number] 1 Kailey A Silver 12/22/2023 2 [facility] (MEDICAID) Kailey A Silver [id number] Kailey A Silver Notes Date Note Type Note Provider Name and Address Organization Details Recorded Time 06/17/2023 text/html HPI Notes: Kailey is here for followup of cad and diabetes. She has been feeling well. No recent illnesses. Less frequent hypoglycemic episodes but did experience some of these when she tried titrating basaglar above 20 units [address], [place], [address], [facility]. 06/17/2023 13:24:22 09/25/2023 text/html HPI Notes: Jessy is here for follow-up of diabetes and coronary artery disease. She has been feeling at her baseline health. No recent significant hypoglycemic episodes. She has been referred by ENT to [facility] for consideration of left ear surgery to restore some hearing. Has upcoming follow-up with cardiology. Presented to the ER for a stomach bug last month. This has resolved. [address], [place], [address], [facility]. 09/25/2023 11:15:19 12/22/2023 text/html HPI Notes: Kailey is here for follow-up of type 1 diabetes, hyperlipidemia, and hypertension. She has been doing fairly well. She was recently seen in the ER for chest pain with unremarkable cardiac workup. She has not had any recurrence of the chest pain since. She has upcoming cardiology follow-up. It has been 2 years since her HI. Her blood sugars have been doing okay. Still gets occasional lows. It drops precipitously. Her significant other admits that he likely overcompensates for these hypoglycemic episodes. Currently having some left heel pain. Painful to put pressure on her heel. Her patient services clerk knows about this. NAVIN PITTMAN PA-C [address], [place], [address], [facility]. 12/22/2023 12:27:24 OBGyn Episode No OBEpisode recorded.
--- OUTSIDE RECORDS SUMMARY | 2024-05-27 19:44 | XMS_ITS | Encounter Summary ---
Author Organization [facility] Address [facility] [place] [address] Care Team Providers Care Weld Lay Out Worker Name Role Phone Felisha Juan APRN Primary Care Provider + [phone] Encounter Details Date Type Department Care Team (Late st Contact Info) Description 01/12/2022 Telephone Cardiology at [address] [place] [phone] Irving Alexander MD [facility] [place] [address] Social History Tobacco Use Types Packs/Day Years [...] PM Referring Provider: Dr. Wilcox Patient Location: [facility] Presenting Symptoms per OSH: Kailey Hernandez is a 46 y.o. 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 She presented recently to [facility] with inferior STEMI and is now s/p PCI with TRACIE x2 to RCA. Discharged on 01/06/22. Presents to [facility] with fatigue. - She feels [...] any acute changes due to her recent MD. She may have some side effects from [...] on filedocumented in this encounter Care Teams Weld Lay Out Worker Relationship Specialty Start Date End Date Felisha Juan, DEMETRIS [address] [place] [address] PCP - General Family Medicine 10/29/15 01/29/22 documented as of this encounter
--- OUTSIDE RECORDS SUMMARY | 2024-05-27 19:44 | XMS_ITS | Clinical Summary ---
Author Organization [facility] Address [facility] [place] [address] Care Team Providers Care Television Parts Tester Name Role Phone Karie Lindsey DEMETRIS Primary Care Provider + [phone] Allergies Active Allergy Reactions Criticality Noted Date [...] Description 04/11/2024 Transcribe Orders eD Incoming Referrals [phone] Karie Lindsey APRN Type 1 diabetes mellitus with hyperglycemia; Type 1 diabetes mellitus with diabetic polyneuropathy; Diabetic ketoacidosis without coma associated with type 2 diabetes mellitus 04/02/2024 Transcribe Orders eD Incoming Referrals [phone] Karie Lindsey APRN Left arm pain from [...] EDT) Glucose 123 65 - 199 mg/dL [facility] Comment:Diabetes: >=200 mg/d L plus symptoms Blood Urea Nitrogen 13 8 - 18 mg/dL [facility] Creatinine 0.77 0.70 - 1.20 mg/dL [facility] Sodium 137 135 - 145 mmol/L [facility] Potassium 4.0 3.5 - 5.0 mmol/L [facility] Comment: Please note: ??Patients with WBC >100,000 may have falsely elevated Potassium levels. ??For accurate Potassium quantification in these patients send serum separator tube (gold top) for subsequent determinations. ??Contact the Clinical Chemistry Laboratory if there are any questions. Chloride 102 98 - 107 mmol/L [facility] Carbon Dioxide 26 22 - 31 mmol/L [facility] Anion Gap 9 5 - 15 mmol/L [facility] Calcium 9.2 8.5 - 10.5 mg/dL [facility] Est Glomerular Filtration Rate 92 >=60 mL/min/1. 73 m?? [facility] Comment: This patient? s [...] In Lab Ray Salomon MD CHEMISTRY ORDERABLES [facility] [place] [address] * (ABNORMAL) Hemoglobin A1c (01/04/2022 12:50 AM EDT) Hemoglobin A1c 8.0(H) 4.3 - 5.6 % [facility] Comment: Reference Range: 4.3 [...] Mellitus, Diabetes Care 2013; 36: Suppl. 1, S67-03 Estimated Average Glucose 183 mg/dL [facility] Comment: eAG equivalents for [...] into estimated average glucose values. ??Diabetes Care 2008:31(8):6137-3978. Blood 01/04/2022 12:5 0 AM EDT 01/04/2022 1:24 AM EDT Narrative Resulting Agency Comment Spec In Lab Kane Ledezma MD CHEMISTRY ORDERABLES Performing Organization Address [facility] Co de Phone Number [facility] [place] [address] * U Albumin/Cre Ratio (09/29/2017 11:30 AM EST) Albumin / Creatinin Ratio, Urine 8 0 - 29 mcg/mg Cr [facility] Comment: Reference Ranges: <30 [...] 2, 357? 362 Albumin, Urine 3.3 mg/L [facility] Creatinine, Urine 42 mg/dL [facility] Urine specimen (specimen) 09/29/2017 11:30 AM EST 09/29/2017 11:40 AM EST Narrative Resulting Agency Comment Spec In Lab Francoise Tan APRN URINE ORDERABLES Performing Organization Address City/[facility]/ZIP Co de Phone Number [facility] [place] [address] from Last 3 Months or Most Recently Relevant to Health Maintenance Advance Directives * Attempt Cardiopulmonary Resuscitation - Inpatient (Latest Code Status on File) Date Activated Date Inactivated Comments 01/03/2022 11:15 PM 01/06/2022 5:03 PM Question Answer Comments Code Status decision made by: Patient Care Teams Television Parts Tester Relationship Specialty Start Date End Date Karie Lindsey, DEMETRIS [address] [place] [address] PCP - General Internal Medicine 04/02/24
--- OUTSIDE RECORDS SUMMARY | 2024-05-27 19:44 | XMS_ITS | Encounter Summary ---
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, LEFT ARM PAIN Karie Lindsey APRN [address] [place] [address] [facility] Neurology [address] [place] [phone] Referral ID Status Reason Start Date Expiration Date Visits Requested Visits Authorized [id number] Authorized Consult, Test & Treat PCP Updated and/or Approved 03/15/2024 03/15/2025 6 6 Encounter Details Date Type Department Care Team (Late st Contact Info) Description 04/02/2024 Transcribe Orders eDH Incoming Referrals [phone] Karie Lindsey MAINTENANCE SERVICE TECHNICIAN [address] [place], [place] [phone] Left arm pain Social History Tobacco Use [...] limb documented in this encounter Care Teams Litigation Legal Secretary Relationship Specialty Start Date End Date Karie Lindsey APRN [address] [place] [address] PCP - General Internal Medicine 04/02/24 documented as of this encounter
--- OUTSIDE RECORDS SUMMARY | 2024-05-27 19:45 | XMS_ITS | Encounter Summary ---
Author Organization [facility] [place] [address] Care Team Providers Care Hogshead Filler Name Role Phone Felisha Juan APRN Primary Care Provider [phone] Encounter Details Date Type Department Care Team (Late st Contact Info) Description 11/12/2017 Telephone Endocrinology at [facility] [place] [address] Danielle Terjo, GUSTAVO Social History Tobacco Use Types Packs/Day [...] nurse. Boyfriend wants patient's Novolog refill sent [place] rather than [facility]. documented in this encounter Plan of Treatment Not on file documented as of this encounter Visit Diagnoses Not on filedocumented in this encounter Care Teams Hogshead Filler Relationship Specialty Start Date End Date Fleisha Juan APRN [address] [place] [address] PCP - General Family Medicine 10/29/15 01/29/22 documented as of this encounter
--- OUTSIDE RECORDS SUMMARY | 2024-05-27 19:45 | XMS_ITS | Encounter Summary ---
Author Organization [facility] Address [facility] [place] [address] Care Team Providers Care Computational Mathematician Name Role Phone Felisha Juan APRN Primary Care Provider Encounter Details Date Type Department Care Team (Late st Contact Info) Description 03/03/2016 Orders [place] [address] Rosie Tao MD [facility] DR [place] [address] Diabetes mellitus without complication Social History Tobacco [...] uncontrolled documented in this encounter Care Teams Computational Mathematician Relationship Specialty Start Date End Date Felisha Juan APRN [address] [place] [address] PCP - General Family Medicine 10/29/15 01/29/22 documented as of this encounter
--- OUTSIDE RECORDS SUMMARY | 2024-05-27 19:45 | XMS_ITS | Encounter Summary ---
Author Organization [facility] Address [facility] [place] [address] Care Team Providers Care Senior Front End Engineer Name Role Phone Felisha Juan APRN Primary Care Provider + [phone] Encounter Details Date Type Department Care Team (Late st Contact Info) Description 01/03/2022 Notes Only Cardiology [facility] [place] [address] Madi Briceño MD [facility] [place] [address] Social History Tobacco Use Types Packs/Day Years [...] 8:25 PM Hospital to which patient presented: [facility] Hospital to which patient presented= [facility]: ED Walk In Date and [...] and inferior stemi STEMI Alert called: Yes Molecular Modeler Activated by: Nurses' Registry Director Initial Disposition: Admit Molecular Modeler documented in this encounter Plan of Treatment Not on file documented as of this encounter Visit Diagnoses Not on filedocumented in this encounter Care Teams Senior Front End Engineer Relationship Specialty Start Date End Date Felisha Juan, DEMETRIS [address] [place] [address] PCP - General Family Medicine 10/29/15 01/29/22 documented as of this encounter
--- OUTSIDE RECORDS SUMMARY | 2024-05-27 19:45 | XMS_ITS | Encounter Summary ---
Author Organization [facility] [place] [address] Care Team Providers Care Sales Representative Wire Rope Name Role Phone Felisha Juan DEMETRIS Primary Care Provider + [phone] Reason for Visit * Reason Comments Diabetes Encounter Details Date Type Department Care Team (Latest Contact Info) Description 09/29/2017 10:30 AM EST Office [place] [address] Francoise Tan APRN [facility] [place] [address] Type 1 diabetes mellitus with proliferative retinopathy [...] APRN - 09/29/2017 10:30 AM EST [facility] in [place] for dental care. Soft brush and floss Contact [facility] [place] documented in this encounter Progress Notes * [...] TSH ,microalbumin. Gaver her information to [facility]. This was a 38 minute office visit with 27 minutes spent counseling [id number] with patient and friend in the management [...] Stimulating Hormone 0.63 0.27 - 4.20 mlU/ML [facility] Blood specimen (specimen) 09/29/2017 11:39 AM EST 09/29/2017 11:49 AM EST Narrative Resulting Agency Comment Spec In Lab Francoise Tan APRN CHEMISTRY ORDERABLE S [facility] [place] [address] * (ABNORMAL) Hemoglobin A1c (09/29/2017 11:39 AM EST) Hemoglobin A1c 7.4(H) 4.3 - 5.6 % [facility] [...] Mellitus, Diabetes Care 2013; 36: Suppl. 1, D47-47 Estimated Average Glucose 166 mg/dL [facility] Comment: eAG [...] into estimated average glucose values. ??Diabetes Care 2008:31(8):1879-1454. Blood specimen (specimen) 09/29/2017 11:39 AM EST 09/29/2017 11:49 AM EST Narrative Resulting Agency Comment Spec In Lab Francoise Tan APRN CHEMISTRY ORDERABLE [facility] [place] [address] * U Albumin/Cre Ratio (09/29/2017 11:30 AM [...] [facility] Creatinine, Urine 42 mg/dL [facility] Urine specimen (specimen) 09/29/2017 11:30 AM EST 09/29/2017 11:40 AM EST Narrative Resulting Agency Comment Spec In Lab Francoise Tan APRN URINE ORDERABLES [facility] [place] [phone] documented in this encounter Visit Diagnoses Diagnosis 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
--- OUTSIDE RECORDS SUMMARY | 2024-05-27 19:45 | XMS_ITS | Encounter Summary ---
Author Organization [facility] Address [facility] [place] [address] Care Team Providers Care Choir Leader Name Role Phone Felisha Juan APRN Primary Care Provider + [phone] Reason for Visit * Reason Comments Diabetes Encounter Details Date Type Department Care Team ([facility] Contact Info) Description 08/22/2016 10:00 AM EST Office [place] [address] Rosie Diamond MD [facility] [place] [address] Pre-existing type 1 diabetes mellitus in childbirth [...] day to have your insulin doses adjusted. [facility] Endocrine clinic office documented in this encounter [...] management and to provide a review of [facility] diabetes care. Diabetes History: Kailey Hernandez has had diabetes Type 1 since age of 7 years. When initially diagnosed, she was extremely fatigued, had polyuria, weight loss, and polydypsia. She was followed by an sweet potato disintegrator- Dr Hernandez in [place], [place]. She is here for establishment of care since she has moved to [facility]. Her last visit was the initial [...] in 4 weeks, RTC in 4 months rn long term care diabetes care: Medications - Outpatient treatment regimen recommendations pending based on the hospital course. Monitoring - continue BG tid ac & hs Diet - low fat/low carb diet Exercise - weight-bearing exercise 30 min/day, as tolerated Thank you for the consult D/w Dr Ann, this was a resident only encounter Rosie Diamond MD Endocrine Fellow Pager- [phone] Insulin Discharge Instructions . Instructions for Lantus [...] juice or regular (not diet) soda 6 [employer] small box of raisins 4 glucose tablets [...] day to have your insulin doses adjusted. [facility] Endocrine clinic office * Carlos Ann [...] delivery documented in this encounter Care Teams Choir Leader Relationship Specialty Start Date End Date Felisha Juan APRN [address] [place] [address] PCP - General Family Medicine 10/29/15 01/29/22 documented as of this encounter
--- OUTSIDE RECORDS SUMMARY | 2024-05-27 19:45 | XMS_ITS | Encounter Summary ---
Author Organization [facility] Address [address] [place] [address] Care Team Providers Care Plant Associate Name Role Phone Unknown, Provider Primary Care Provider Encounter Details Date Type Department Care Team (Late st Contact Info) Description 12/04/2021 Lab Requisition [facility] Pathology & Laboratory [facility] [address] [place] [address] Outr Resulting Lab, Provider Social History Tobacco [...] C Antibody Negative Negative 12/05/2021 11:10 EDT [facility] Blood VENOUS BLOOD / Unknown 12/04/2021 11:00 EDT 12/04/2021 21:57 EDT Provider Outr Resulting Lab CHEMISTRY & BLOOD GAS ORDERABLES [facility] [address] [place] [address] documented in this encounter Visit Diagnoses Not on filedocumented in this encounter Care Teams Plant Associate Relationship Specialty Start Date End Date Unknown, Provider, PCP - General 01/18/16 documented as of this encounter
--- OUTSIDE RECORDS SUMMARY | 2024-05-27 19:45 | XMS_ITS | Encounter Summary ---
Author Organization [facility] Address [facility] [place] [address] Care Team Providers Care Cooling System Operator Name Role Phone Felisha Juan APRN Primary Care Provider + [phone] Encounter Details Date Type Department Care Team ([facility] st Contact Info) Description 03/03/2016 Telephone [place] [phone] Akanksha Beltrán LPN Social History Tobacco Use [...] endo nurse line from Chary Boyd at [facility]. Insurance will not cover humalog will cover Novolog. Okay to switch with dosing is needed. ext [phone] documented in this encounter Plan of Treatment Not on file documented as of this encounter Visit Diagnoses Not on filedocumented in this encounter Care Teams Cooling System Operator Relationship Specialty Start Date End Date Felisha Juan, DEMETRIS [address] [place] [address] PCP - General Family Medicine 10/29/15 01/29/22 documented as of this encounter
--- OUTSIDE RECORDS SUMMARY | 2024-05-27 19:45 | XMS_ITS | Referral Summary ---
Author Organization [facility] Address [address] [place] [address] Care Team Providers Care Hot Metal Crane Operator Name Role Phone Unknown, Provider Primary [...] C Antibody Negative Negative 12/05/2021 11:10 EDT [facility] Blood VENOUS BLOOD / Unknown 12/04/2021 11:00 EDT 12/04/2021 21:57 EDT Provider Outr Resulting Lab CHEMISTRY & BLOOD GAS ORDERABLES [facility] [address] [place] [address] from Last 3 Months or Most Recently Relevant to Health Maintenance Care Teams Hot Metal Crane Operator Relationship Specialty Start Date End Date Unknown, Provider, PCP - General 01/18/16
--- OUTSIDE RECORDS SUMMARY | 2024-05-27 19:45 | XMS_ITS | Encounter Summary ---
Author Organization [facility] [address] Care Team Providers Care Supervisor Shipping Name Role Phone Felisha Juan APRN Primary Care Provider + [phone] Encounter Details Date Type Department Care Team (Latest Contact Info) Description 08/22/2016 9:00 AM EST Laboratory Appointment Lab at [facility] [place] [address] Type 1 diabetes mellitus with retinopathy Social [...] Urine 17 0 - 29 mcg/mg Cr [facility] Comment: Reference Ranges: <30 [...] 2, 357? 362 Albumin, Urine 12.4 mg/L [facility] Creatinine, Urine 75 mg/dL [facility] Urine specimen (specimen) 08/22/2016 9:06 AM EST 08/22/2016 9:20 AM EST Narrative Resulting Agency Comment Spec In Lab Olegario Wright DO URINE ORDERABLES [facility] [place] [address] * Lipid panel (fasting) (08/22/2016 8:51 AM EST) Cholesterol, Total 129 <=239 mg/dL [facility] Triglyceride 56 <=199 mg/dL [facility] HDL Cholesterol 55 >=40 mg/dL [facility] LDL Cholesterol 63 <=190 mg/dL [facility] Cholesterol/HDL Ratio 2.3 ratio [facility] Lipid Interpretation See Note [facility] Comment: Lipid management should be guided by a patient? s ASCVD risk, goals and preferences. ACC/AHA Guidelines recommend high intensity statin if clinical ASCVD or LDL greater than or equal to 190 mg/dL. http://circ.ahajournals.org/content/early/.cir.9802709601.67621.7a Adults aged 40-75 with LDL 70-189 mg/dL should have their 10 year ASCVD risk estimated with the ACC/AHA ASCVD risk timber estimator http://tools.acc.org/HMLTA-Svtd-Wqsbelksh/ Statin should be discussed if risk greater [...] In Lab Olegario Wright DO CHEMISTRY ORDERABLES [facility] [place] [address] * (ABNORMAL) Hemoglobin A1c (08/22/2016 8:51 AM EST) Hemoglobin A1c 7.4(H) 4.3 - 5.6 % [facility] Comment: Reference Range: 4.3 [...] Mellitus, Diabetes Care 2013; 36: Suppl. 1, Q77-94 Estimated Average Glucose 166 mg/dL [facility] Comment: eAG equivalents for HbA1c percentages: HbA1c(%) ?eAG(mg/dL) 6.0 ?126 6.5 ?140 7.0 ?154 7.5 ?169 8.0 ?183 8.5 ?197 9.0 ?212 9.5 ?226 10.0 ? 240 Limitations: The eAG calculation has not been validated on women, individuals below 18 years old and above 70 years old, and individuals with hemoglobinopathies. Additional resources are available on the ADA website: http://Wattblock.Mandata (Management & Data Services)/DHMCadacalc Tj JESSICA, Mal J, Bk R, et al. ??Translating the A1C assay into estimated average glucose values. ??Diabetes Care 2008:31(8):4064-7123. Blood specimen (specimen) 08/22/2016 8:51 AM EST 08/22/2016 8:58 AM EST Narrative Resulting Agency Comment Spec In Lab Olegario Wright DO CHEMISTRY ORDERABLES Performing Organization Address City/State/[facility] Co de Phone Number [facility] [place] [address] documented in this encounter Visit Diagnoses Diagnosis Type 1 diabetes mellitus with retinopathy documented in this encounter Care Teams Supervisor Shipping Relationship Specialty Start Date End Date Felisha Juan APRN [address] [place] [address] PCP - General Family Medicine 10/29/15 01/29/22 documented as of this encounter
--- OUTSIDE RECORDS SUMMARY | 2024-05-27 19:45 | XMS_ITS | Encounter Summary ---
Author Organization [facility] [place] [address] Care Team Providers Care Home Extension Agent Name Role Phone Felisha Juan APRN Primary Care Provider + [phone] Encounter Details Date Type Department Care Team (Late st Contact Info) Description 08/04/2017 Telephone [place] [phone] Danielle Trejo, RN Social History Tobacco Use [...] on filedocumented in this encounter Care Teams Home Extension Agent Relationship Specialty Start Date End Date Felisha Juan APRN [address] [place] [address] PCP - General Family Medicine 10/29/15 01/29/22 documented as of this encounter
--- OUTSIDE RECORDS SUMMARY | 2024-05-27 19:45 | XMS_ITS | Encounter Summary ---
[place] [address] Care Team Providers Care Dice Table Person Name Role Phone Felisha Juan APRN Primary Care Provider + [phone] Reason for Visit * Reason Onset Date Comments Medication Refill 08/12/2017 Encounter Details Date Type Department Care Team (Late st Contact Info) Description 08/12/2017 [place] [address] Ivette Hewitt V RN Controlled type 1 [...] severity documented in this encounter Care Teams Dice Table Person Relationship Specialty Start Date End Date Felisha Juan APRN [address] [place] [address] PCP - General Family Medicine 10/29/15 01/29/22 documented as of this encounter
--- OUTSIDE RECORDS SUMMARY | 2024-05-27 19:45 | XMS_ITS | Encounter Summary ---
Author Organization [facility] Address [facility] [place] [address] Care Team Providers Care Hull Builder Name Role Phone Carey Hall MD Primary Care Provider Reason for Visit * Reason Comments Routine Foot Care Encounter Details Date Type Department Care Team (Late st Contact Info) Description 04/11/2011 10:45 AM EDT Office Visit Podiatry [address] [place] [address] Ritesh Mackey Jr., DPM [address] [facility] [place] [address] Other specified disease of nail (Primary Dx) [...] encounter Miscellaneous Notes * Miscellaneous - Carrington, Geomorphology Teacher - 05/01/2011 3:53 PM EDT documented in this encounter Plan of Treatment Not on file documented as of this encounter Visit Diagnoses Diagnosis Other specified disease of nail- Primary documented in this encounter Care Teams Hull Builder Relationship Specialty Start Date End Date Carey Hall MD [address] [place] [address] PCP - General 06/25/10 10/28/15 documented as of this encounter
--- OUTSIDE RECORDS SUMMARY | 2024-05-27 19:45 | XMS_ITS | Encounter Summary ---
Author Organization Formerly [facility] [place] [address] Care Team Providers Care Injection Molding Technician Name Role Phone Yessica Felisha WILLSON Primary Care Provider + [phone] Reason for Visit * Reason Onset Date Comments Pump/sensor 02/07/2021 Encounter Details Date Type Department Care Team (Late st Contact Info) Description 02/07/2021 Tele[place] [id number] Tosin Solares Pump/sensor Social History Tobacco Use Types Packs/Day Years Used Date Smoking Tobacco: Never Smokeless Tobacco: Never Sex and Gender Information Value Date Recorded Sex Assigned at Not on file Gender Identity Not on file Sexual Orientation Not on file documented as of this encounter Miscellaneous Notes * Telephone Encounter - Tosin Solares - 02/07/2021 7:32 AM EDT Documentation request received from [facility]. 11/13/20 office notes routed Confirmed 02/07 documented in this encounter Plan of Treatment Not on file documented as of this encounter Visit Diagnoses Not on filedocumented in this encounter Care Teams Injection Molding Technician Relationship Specialty Start Date End Date Felisha Juan APRN [address] [place] [address] PCP - General Family Medicine 10/29/15 01/29/22 documented as of this encounter
--- OUTSIDE RECORDS SUMMARY | 2024-05-27 19:45 | XMS_ITS | Encounter Summary ---
Author Organization Formerly [facility] [place] [address] Care Team Providers Care Lead Burner Name Role Phone Felisha Juan APRN Primary Care Provider + [phone] Encounter Details Date Type Department Care Team (Late st Contact Info) Description 08/18/2017 Notes Only Endocrinology at [facility] [place] [address] Danielle Trejo, GUSTAVO Social History Tobacco Use [...] on filedocumented in this encounter Care Teams Lead Burner Relationship Specialty Start Date End Date Felisha Juan APRN [address] [place] [address] PCP - General Family Medicine 10/29/15 01/29/22 documented as of this encounter
--- OUTSIDE RECORDS SUMMARY | 2024-05-27 19:45 | XMS_ITS | Encounter Summary ---
Author Organization [facility] Address [facility] [place] [address] Care Team Providers Care Superintendent Mechanical Name Role Phone Carey Hall MD Primary Care Provider [phone] Reason for Visit * Reason Comments Nail Problem Encounter Details Date Type Department Care Team ([facility] Contact Info) Description 09/19/2011 10:15 AM EST Office Visit Podiatry at [address] [place] [address] Ritesh Mackey Jr., DPM [address] [place] [address] [place] [address] Other specified disease of nail (Primary Dx) [...] Primary documented in this encounter Care Teams Superintendent Mechanical Relationship Specialty Start Date End Date Carey Hall MD [address] [place] [address] PCP - General 06/25/10 10/28/15 documented as of this encounter
--- OUTSIDE RECORDS SUMMARY | 2024-05-27 19:45 | XMS_ITS | Encounter Summary ---
Author Organization [facility] [place] [address] Care Team Providers Care Chocolate Packer Name Role Phone Felisha Juan APRN Primary Care Provider + [phone] Reason for Visit * Reason Onset Date Comments Pump/sensor 08/31/2019 Encounter Details Date Type Department Care Team (Late st Contact Info) Description 08/31/2019 Telephone [place] [id number] Tosin Solares Pump/sensor Social History Tobacco Use Types Packs/Day Years Used Date Smoking Tobacco: Never Smokeless Tobacco: Never Sex and Gender Information Value Date Recorded Sex Assigned at Not on file Gender Identity Not on file Sexual Orientation Not on file documented as of this encounter Miscellaneous Notes * Telephone Encounter - Tosin Solares - 08/31/2019 10:47 AM EST Documentation request received from [place] [id number] office notes routed Confirmed 08/31 documented in this encounter Plan of Treatment Not on file documented as of this encounter Visit Diagnoses Not on filedocumented in this encounter Care Teams Chocolate Packer Relationship Specialty Start Date End Date Felisha Juan APRN [address] [place] [address] PCP - General Family Medicine 10/29/15 01/29/22 documented as of this encounter
--- OUTSIDE RECORDS SUMMARY | 2024-05-27 19:45 | XMS_ITS | Encounter Summary ---
Author Organization [facility] [place] [address] Care Team Providers Care Faculty Criminal Justice Name Role Phone Felisha Juan APRN Primary Care Provider [phone] Reason for Visit * Auth/Cert Specialty Diagnoses / Procedures Referred By Chip sebastian Referred To Contact Diagnoses STEMI (ST elevation myocardial infarction) STEMI Procedures CARDIAC CATHETERIZATION Ray Salomon MD [facility] [place] [place] [address] [facility] Referral ID Status Reason Start Date Expiration Date Visits Re quested Visits Authorized [id number] 1 1 Encounter Details Date Type Department Care Team (Late st Contact Info) Description 01/03/2022 10:10 PM EDT - 01/03/2022 11:32 PM EDT Surgery [place] [address] Moi Ledezma MD [facility] [place] [address] CARDIAC CATHETERIZATION Social History Tobacco Use Types [...] Afua Rosales Patient Age: 46 y.o. Language: Kazakh Race: White Ethnicity: Not nor Admit date: [...] will need follow up with cardiology at [facility] as well as to establish care. [...] made her nauseous. ?? On arrival to [facility], she was afebrile, BP was 95/54, she was oxygenating normally on room air. She was infused with 1L IV fluids, given 25 mg of aspirin (per [facility] discharge note). The on-call superintendent service at [facility] was contacted, she was given 300 mg of Plavix, aspirin, heparin with bolus and drip. She was also given tecteplase 35mg. ?? On arrival to [facility] [address], she underwent LHC and received TRACIE x2 [...] for you to establish care with a medical translator at [facility] as well as a referral to [...] appointments: During 8am-5pm Thursday through Thursday call [phone] to speak with a nurse in the cardiology clinic All other times call [phone] and ask to speak to the superintendent service educational psychology teacher. Activity level: - No heavy lifting (more [...] none Follow up Appointments: No future appointments. Contact Lens Edge Buffer: You will be contacted by [facility] to schedule a cardiology appointment to establish care. PCP: Felisha Juan APRN at [phone] Your Inpatient Doctor(s) at [facility]: Ray Salomon MD - Attending physician Cam David MD - Mate Fishing Vessel physician Your Primary Care Provider: DEMETRIS Gal[address] / [facility] [id number] For questions regarding issues relating to your hospitalization on the Hospital Medicine Service, please contact your inpatient physician through the [facility] Cheese Pancake Roller [phone]. Issues after hours and on weekends will be handled by the Hospitalist staff on-call. General Instructions None Future Appointments and Orders Future Orders Complete By Expires Referral to Cardiac Rehab [[id number] Custom] As directed Process Instructions: If no progress note charted, please enter Clinical details in comments. Scheduling Instructions: Questions: My question or request is: cardiac rehab referral s/p STEMI, she would benefit from location close to [facility] Referral to Cardiology [REF12 Custom] As directed Process Instructions: If no progress note charted, please enter Clinical details in comments. Scheduling Instructions: Questions: My question or request is: establish care after inferoposterior stemi Provider Contact Information: DEMETR[address] / [facility] [address] Discharge References/Attachments: Discharge References/Attachments None Associated attestation - Ray Salomon MD - 01/06/2022 1:51 PM EDT Dear Colleagues, I was the attending at the time of discharge. Please call or email me if you have questions. Ray Salomon MD, [facility] [email or web address] [phone] documented in this encounter Discharge Instructions * [...] for you to establish care with a medical translator at [facility] as well as a referral to [...] appointments: During 8am-5pm Thursday through Thursday call [phone] to speak with a nurse in the cardiology clinic All other times call [phone] and ask to speak to the superintendent service educational psychology teacher. Activity level: - No heavy lifting (more [...] none Follow up Appointments: No future appointments. Contact Lens Edge Buffer: You will be contacted by [facility] to schedule a cardiology appointment to establish care. PCP: Felisha Juan APRN at [phone] Your Inpatient Doctor(s) at [facility]: Ray Salomon MD - Attending physician Cam David MD - Mate Fishing Vessel physician Your Primary Care Provider: Felisha Juan APRN [phone] / [facility] [address] For questions regarding issues relating to your hospitalization on the Hospital Medicine Service, please contact your inpatient physician through the [facility] [employer] [phone]. Issues after hours and on weekends will [...] INSULIN PEN NEEDLE UF SHORT 31 X /16 Needle 11 04/05/2014 albuterol (PROVENTIL HFA;VENTOLIN HFA) 90 mcg/Actuation inhaler Inhale 2 puffs into the lungs every 4 hours as needed. Reported on 08/22/2016 documented as of this encounter Progress Notes * Tj Berry, RN - 01/06/2022 2:59 PM EDT Afuadagoberto Rosales discharged. Tele/IV removed. AVS and medication changes reviewed, questions answeredand verbalized understanding. Prescriptions to be picked up from outside pharmacy. Pt left floor via wheelchair and departed by hospital arranged transport. * Portia Larson - 01/06/2022 12:37 PM EDTSummary: Transport d/c detail Patient transport has been arranged through [facility]. Nilda will be arriving in a [...] level 2 Elba Pavon APRN [facility] Endocrinology Diabetes Management Pager [phone] 20 minutes of this 35 minute visit [...] Cuff Relevant medications: noted Last Bowel Movement: (SEARCH DEVELOPER) Admit Weight: 66.1 kg Estimated body mass index is 22.86 kg/m?? as calculated from the following: Height as of this encounter: 165.1 cm (5' 5). Weight as of this encounter: 62.3 kg (137 lb 5.6 oz). [place] Body Weight: 125 lbs / 56.7 kg [...] up while inpatient Phuong Clements RD Pager #:[phone] * Ray Salomon MD - 01/06/2022 6:54 AM EDT Images from the original note were not included. Inpatient Cardiology Progress Note Patient info: Name: Afua Rosales : 1975 PCP: Felisha Juan APRN PCP phone number: [phone] Date of Admission: 01/03/2022 ( Hospital Day 3 days ) Attending:Ray Salomon MD ID: Afua Rosales is a 46 y.o. 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 She presents with inferior STEMI and is now s/p PCI with TRACIE x2 to RCA. Hospital Day3 24 Hour Events/Subjective: - JOMAR ROJASS - pharmacy is [facility] in [facility], BF can belt picker at 6 pm when neighbor's car [...] gauge 01/03/222236 -- 3 Labs: Recent Labs 01/06/2241901/05/22 1145 01/04/22 0050 WBC 6.4 6.8 6.9 [...] Procedure Component Value Units Date/Time COVID-19 PCR [[id number]] Collected: 01/04/22 0050 Lab Status: Final result [...] diagnosis of COVID-19 is performed using the Microsaica COVID-19 Direct Assay by FP Complete as authorized by the FDA issued Emergency [...] Department of Pathology and Laboratory Medicine at [facility], certified under the Clinical Laboratory Improvement Amendments [...] fact sheets at the following FDA website: https://www.fda.gov/medical-devices/chlxndnrxai-iyuifxp-5338-mevxe-25-rjefhsgxl- znw-yfvicueiujmizz-fcsvvge-devices/camyy-dqgnwmnntrd-clpf SARS-CoV-2 Source ARCHITECTURE FACULTY MEMBER Swab Imaging: No results found for this [...] David MD Internal Medicine, PGY-1 Cardiology, S2 ([id number]) 01/06/22 Cardiology Staff Addendum Afua Rosales is [...] Sky ? Lucia Alexander Endocrinology Fellow Pager [phone] I have seen the patient and reviewed [...] PCP: Felisha Juan APRN PCP phone number: [phone] Date of Admission: 01/03/2022 ( Hospital Day [...] Procedure Component Value Units Date/Time COVID-19 PCR [[id number]] Collected: 01/04/22 005 Lab Status: Final result [...] using the Simplexa COVID-19 Direct Assay by FP Complete as authorized by the FDA issued Emergency [...] Department of Pathology and Laboratory Medicine at [facility], certified under the Clinical Laboratory Improvement Amendments [...] fact sheets at the following FDA website: https://www.fda.gov/medical-devices/mtgojoryljn-laedixt-0440-aotws-01-vgpdonfph- pwc-skshuxsibbnynd-kkzoacg-devices/ytosn-rlzosifzhru-zoxw SARS-CoV-2 Source ARCHITECTURE FACULTY MEMBER Swab Imaging: No results found for this [...] - 01/04/2022 3:25 AM EDT [facility] TeleICU Initial Assessment Note I established audio/visual communication with the patient's room, reviewed the eDH. History and Assessment: 46 y.o. 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 STEMIalert activated and went to [address] where proximal and mid RCA stents were [...] injection 5,000 Units, 5,000 Units, Subcutaneous, Q8H [facility], Sumanth Barnard MD, 5,000 Units at 01/04/22114 [...] tablet 12.5 mg, 12.5 mg, Oral, Q8H [facility], Sumanth Barnard MD ??? clopidogreL (Plavix) tablet [...] PCP: Felisha Juan APRN PCP phone number: [phone] Date of Admission: 01/03/2022 ( Hospital Day [...] previously made her nauseous. On arrival to [facility], she was afebrile, BP was 95/54, she was oxygenating normally on room air. She was infused with 1L IV fluids, given 25 mg of aspirin (per [facility] discharge note). The on-call superintendent service at [facility] was contacted, she was given 300 mg of Plavix, aspirin, heparin with bolus and drip. She was also given tecteplase 35mg. On arrival to [facility] [address], she underwent LHC and received TRACIE x2 [...] COVID test: Lab Results Component Value Date [id number] Not Detected 01/04/2022 Past medical History: No past medical history on file. Hospitalizations Within the Past 30 Days: no previous admission in last 30 days Current Decision-Making Capacity: Self Advance Care Planning: Attempt Cardiopulmonary Resuscitation - Inpatient <no information> -Advanced Directive: No, need to discuss If AD's have not been completed daughter would be surrogate decision maker per [place] surrogate decision making law. (Only good for 180 days) Any patient receiving care at [facility] must abide by [place] law. The hierarchy for surrogate decision making [...] (i) The agent with financial power of claims attorney or a conservator appointed in accordance [...] confirmed as: [address] [facility] [address] Social & Family Supports: All names listed below confirmed with patient as current and correct Extended Emergency Contact Information Primary Emergency Contact: Delano Reyna [facility] Mobile Relation: Friend Current Care Provided [...] MEDICAID [place] Prescription Coverage: Yes Preferred Pharmacy: [id number] - [place], [place] - [address] [facility] [address] [facility] [address] [facility] - [facility], [place] - [address] [facility] [address] [facility] [address] Rayle Status: Patient is a : No Primary Care Provider: Felisha Juan APRN [phone] Patient/Caregiver Goals of Treatment: To go home Potential Needs for Transition of Care: none Agency Referrals: None anticipated Transportation: other (see comments) (Needs ride home generally take the free transfer bus in her home town for groceries) Transportation Anticipated: health plan transportation Concerns to be Addressed: discharge planning Assessment: Patient is admitted to *[facility] service for STEMI Plan: Home today with a medicaid ride / RS to confirm when ride is obtained A member of the Care Management team will continue to monitor progress, follow for continuity of care and assist with transition of care planning. Office of Care Management Surgery Team Psychiatric Specialist [email or web address] Pager [phone] * Consult Note - Mark Sky [...] management and to provide a review of usp diabetescare. Diabetes History: Afua Rosales has had [...] meal) 4. Carb controlled diet level 2 wardrobe mistress diabetes care: Medications - Outpatient treatment regimen recommendations pending based on the hospital course. Monitoring - continue BG check q4 hours for now Diet - low fat/low carb diet Exercise - weight-bearing exercise 30 min/day, as tolerated Thank you for allowing us to provide care for your patient. Discussed with Dr. Asya Alexander Endocrinology Fellow Pager [phone] I have seen the patient and reviewed [...] 01/04/2022 1:44 AM EDT RAPID COVID-19 PCR ([facility]) Routine 01/04/2022 12:50 AM EDT HEMOGRAM [...] CARE TEST O MUSHTAQ Performing Organization Address City/[facility]/ZIP Co de Phone Number [facility] [place] [address] * (ABNORMAL) POCT Glucose (01/06/2022 11:47 AM EDT) Glucose, POC 299(H) 65 - 199 mg/dL [facility] Comment: Supplemental ranges: <140 mg/dL before meals <180 mg/dL all other times of the day Blood 01/06/2022 11:4 7 AM EDT 01/06/2022 11:47 AM EDT Ray Salomon MD POINT OF CARE TEST O MUSHTAQ [facility] [place] [address] * POCT Glucose (01/06/2022 8:01 AM EDT) Glucose, POC 142 65 - 199 mg/dL [facility] Comment: Supplemental ranges: <140 mg/dL before meals <180 mg/dL all other times of the day Blood 01/06/2022 8:01 AM EDT 01/06/2022 8:01 AM EDT Ray Salomon MD POINT OF CARE TEST O RDERABLES [facility] [place] [address] * Differential, Automated (01/06/2022 4:20 AM EDT) [facility] Neutrophil % 51.9 % [facility] Neutrophil Absolute 3.34 1.70 - 6.10 x10(3)/[facility] LAB[facility]AT[facility] Lymph % 32.5 % [facility] Lymphocytes Abs 2.1 0.9 - 3.2 x10(3)/[facility] Monocyte % 13.7 % [facility] Monocyte Abs 0.9 0.3 - 0.9 x10(3)/[facility] Eos % 1.1 % [facility] Eosinophils Abs 0.1 0.0 - 0.4 x10(3)/[facility] Basophil % 0.6 % [facility] Baso Absolute 0.0 0.0 - 0.1 x10(3)/[facility] Immature Gran % 0.20 % [facility] Comment: Immature granulocytes(IG's)percentage and absolute count will include metamyelocytes, myelocytes, and promyelocytes. Blood smears from CBCs yielding IG's will be scanned manually for concordance. If this scan disagrees with the automated IG or if promyelocytes are noted, a manual differential will be performed. Immature Gran Absolute 0.01 0.00 - 0.04 x10(3)/[facility] LAB[facility] Blood 01/06/2022 4:20 AM EDT 01/06/2022 4:39 AM EDT Narrative Resulting Agency Comment Spec In Lab Cam David MD HEMATOLOGY ORDERABLE S [facility] [place] [address] * (ABNORMAL) Hemogram (01/06/2022 4:20 AM EDT) [...] Platelet 177 145 - 357 x10(3)/mc L [facility] RDW Standard Deviation 42.0 37.0 - 46.0 [facility] LAB[facility]AT[facility] RDW coefficient of variation 12.1 11.5 - 14.1 % [facility] Mean Platelet Volume 10.0 7.6 - 12.9 fL [facility] NRBC% auto 0.0 % [facility] NRBC Absolute 0.000 0.000 - 0.000 x10(3)/mc L [facility] Blood 01/06/2022 4:20 AM EDT 01/06/2022 4:39 AM EDT Narrative Resulting Agency Comment Spec In Lab Cam David MD HEMATOLOGY ORDERABLE S [facility] [place] [address] * Basic Metabolic Panel (non-fasting) (01/06/2022 4:20 [...] MD CHEMISTRY ORDERABLES Performing Organization Address [facility]/ZIP Co de Phone Number [facility] [place] [address] * POCT Glucose (01/06/2022 3:46 AM EDT) Glucose, POC 129 65 - 199 mg/dL [facility] Comment: Supplemental ranges: <140 mg/dL before meals <180 mg/dL all other times of the day Blood 01/06/2022 3:46 AM EDT 01/06/2022 3:46 AM EDT Ray Salomon MD POINT OF CARE TEST O RDERABLES Performing Organization Address [facility] Co de Phone Number [facility] [place] [address] * POCT Glucose (01/06/2022 12:06 AM EDT) Glucose, POC 125 65 - 199 mg/dL [facility] Comment: Supplemental ranges: <140 mg/dL before meals <180 mg/dL all other times of the day Blood 01/06/2022 12:0 6 AM EDT 01/06/2022 12:06 AM EDT Ray Salomon MD POINT OF CARE TEST O RDERAFRANKLIN Performing Organization Address [facility]/ZIP Co de Phone Number [facility] [place] [address] * (ABNORMAL) POCT Glucose (01/05/2022 8:11 PM EDT) Glucose, POC 220(H) 65 - 199 mg/dL [facility] Comment: Supplemental ranges: <140 mg/dL before meals <180 mg/dL all other times of the day Blood 01/05/2022 8:11 PM EDT 01/05/2022 8:11 PM EDT Ray Salomon MD POINT OF CARE TEST O RDERABLES Performing Organization Address City/[facility]/ZIP Co de Phone Number [facility] [place] [address] * POCT Glucose (01/05/2022 6:00 PM EDT) Glucose, POC 190 65 - 199 mg/dL [facility] Comment: Supplemental ranges: <140 mg/dL before meals <180 mg/dL all other times of the day Blood 01/05/2022 6:00 PM EDT 01/05/2022 6:00 PM EDT Ray Salomon MD POINT OF CARE TEST O RDERAFRANKLIN Performing Organization Address City/[facility]/ZIP Co de Phone Number [facility] [place] [address] * POCT Glucose (01/05/2022 3:53 PM EDT) Glucose, POC 161 65 - 199 mg/dL [facility] Comment: Supplemental ranges: <140 mg/dL before meals <180 mg/dL all other times of the day Blood 01/05/2022 3:53 PM EDT 01/05/2022 3:53 PM EDT Ray Salomon MD POINT OF CARE TEST O RDERAFRANKLIN Performing Organization Address City/[facility]/ZIP Co de Phone Number [facility] [place] [address] * (ABNORMAL) Differential, Automated (01/05/2022 11:45 AM EDT) Neutrophil % 65.9 % [facility] Neutrophil Absolute 4.46 1.70 - 6.10 x10(3)/mc L [facility] Lymph % 19.0 % [facility] Lymphocytes Abs 1.3 0.9 - 3.2 x10(3)/mc L [facility] Monocyte % 14.2 % [facility] Monocyte Abs 1.0(H) 0.3 - 0.9 x10(3)/[facility] LABORATORY Eos % 0.1 % [facility] Eosinophils Abs 0.0 0.0 - 0.4 x10(3)/[facility] LABORATORY Basophil % 0.4 % [facility] Baso Absolute 0.0 0.0 - 0.1 x10(3)/[facility] LABORATORY Immature Gran % 0.40 % [facility] Comment: Immature granulocytes(IG's)percentage and absolute count will include metamyelocytes, myelocytes, and promyelocytes. Blood smears from CBCs yielding IG's will be scanned manually for concordance. If this scan disagrees with the automated IG or if promyelocytes are noted, a manual differential will be performed. Immature Gran Absolute 0.03 0.00 - 0.04 x10(3)/[facility] LABORATORY Blood 01/05/2022 11:4 5 AM EDT 01/05/2022 12:08 PM EDT Narrative Resulting Agency Comment Spec In Lab Cam David MD HEMATOLOGY ORDERABLE S [facility] [place] [address] * (ABNORMAL) Hemogram (01/05/2022 11:45 AM EDT) White Blood Cell 6.8 4.0 - 9.5 x10(3)/[facility] LABORATORY Red Blood Cell 3.92(L) 4.00 - 5.21 x10(6)/ L [facility] Hemoglobin 12.5 [...] [facility] NRBC% auto 0.0 % [facility] NRBC Absolute 0.000 0.000 - 0.000 x10(3)/mc L [facility] Blood 01/05/2022 11:4 5 AM EDT 01/05/2022 12:08 PM EDT Narrative Resulting Agency Comment Spec In Lab Cam David MD HEMATOLOGY ORDERABLE S [facility] [place] [address] * Basic Metabolic Panel (non-fasting) (01/05/2022 11:45 [...] Carbon Dioxide 25 22 - 31 mmol/L [facility] Anion Gap 11 5 [...] MD CHEMISTRY ORDERABLES Performing Organization Address [facility] Co de Phone Number [facility] [place] [address] * POCT Glucose (01/05/2022 11:40 AM EDT) Glucose, POC 148 65 - 199 mg/dL [facility] Comment: Supplemental ranges: <140 mg/dL before meals <180 mg/dL all other times of the day Blood 01/05/2022 11:4 0 AM EDT 01/05/2022 11:40 AM EDT Ray Salomon MD POINT OF CARE TEST O RDERABLES Performing Organization Address City/[facility]/ZIP Co de Phone Number [facility] [place] [address] * EKG 12 Lead (01/05/2022 8:23 AM EDT) Ventricular rate 78 BPM MUSE SYSTEM Atrial Rate 78 BPM MUSE SYSTEM P-R Interval 132 ms MUSE SYSTEM QRS Duration 106 ms MUSE SYSTEM Q-T Interval 364 ms MUSE SYSTEM QTC Calculated (Bezet) 414 ms MUSE SYSTEM Calculated P [place] 78 degrees MUSE SYSTEM Calculated R [place] -65 degrees MUSE SYSTEM Calculated T [place] -33 degrees MUSE SYSTEM INTERPRETATION Normal sinus rhythm Left axis deviation Incomplete right bundle branch block Cannot rule out Inferior infarct , age undetermined Abnormal ECG When compared with ECG of 04-JAN-2022 00:45, Incomplete right bundle branch block is now Present Minimal criteria for Inferior infarct are now Present Confirmed by Storm Lewis ([id number]) on 01/05/2022 3:44:16 PM MUSE SYSTEM 01/05/2022 8:23 AM EDT 01/05/2022 3:44 PM EDT Ray Salomon MD ECG ORDERABLES Performing Organization Address City/[facility]/ZIP Co de Phone Number MUSE SYSTEM * (ABNORMAL) POCT Glucose (01/05/2022 7:43 AM EDT) Glucose, POC 213(H) 65 - 199 mg/dL [facility] Comment: Supplemental ranges: <140 mg/dL before meals <180 mg/dL all other times of the day Blood 01/05/2022 7:43 AM EDT 01/05/2022 7:43 AM EDT Ray Salomon MD POINT OF CARE TEST O RDERABLES Performing Organization Address City/[facility]/ZIP Co de Phone Number [facility] [place] [address] * (ABNORMAL) POCT Glucose (01/05/2022 6:45 AM EDT) Glucose, POC 214(H) 65 - 199 mg/dL [facility] Comment: Supplemental ranges: <140 mg/dL before meals <180 mg/dL all other times of the day Blood 01/05/2022 6:45 AM EDT 01/05/2022 6:45 AM EDT Ray Salomon MD POINT OF CARE TEST O RDERABLES Performing Organization Address City/[facility]/ZIP Co de Phone Number [facility] [place] [address] * POCT Glucose (01/05/2022 5:31 AM EDT) Glucose, POC 89 65 - 199 mg/dL [facility] Comment: Supplemental ranges: <140 mg/dL before meals <180 mg/dL all other times of the day Blood 01/05/2022 5:31 AM EDT 01/05/2022 5:31 AM EDT Ray Salomon MD POINT OF CARE TEST O RDERABLES Performing Organization Address [facility] Co de Phone Number [facility] [place] [address] * (ABNORMAL) POCT Glucose (01/05/2022 5:09 AM EDT) Glucose, POC 59(L) 65 - 199 mg/dL [facility] Comment: Supplemental ranges: <140 mg/dL before meals <180 mg/dL all other times of the day Blood 01/05/2022 5:09 AM EDT 01/05/2022 5:09 AM EDT Ray Salomon MD POINT OF CARE TEST O RDERAFRANKLIN Performing Organization Address [facility]/ZIP Co de Phone Number [facility] [place] [address] * POCT Glucose (01/05/2022 12:45 AM EDT) Glucose, POC 96 65 - 199 mg/dL [facility] Comment: Supplemental ranges: <140 mg/dL before meals <180 mg/dL all other times of the day Blood 01/05/2022 12:4 5 AM EDT 01/05/2022 12:45 AM EDT Ray Salomon MD POINT OF CARE TEST O RDERAFRANKLIN Performing Organization Address City/[facility]/ZIP Co de Phone Number [facility] [place] [address] * POCT Glucose (01/04/2022 7:28 PM EDT) Glucose, POC 104 65 - 199 mg/dL [facility] Comment: Supplemental ranges: <140 mg/dL before meals <180 mg/dL all other times of the day Blood 01/04/2022 7:28 PM EDT 01/04/2022 7:28 PM EDT Ray Salomon MD POINT OF CARE TEST O RDERAFRANKLIN Performing Organization Address [facility] Co de Phone Number [facility] [place] [address] * POCT Glucose (01/04/2022 4:04 PM EDT) Glucose, POC 190 65 - 199 mg/dL [facility] Comment: Supplemental ranges: <140 mg/dL before meals <180 mg/dL all other times of the day Blood 01/04/2022 4:04 PM EDT 01/04/2022 4:04 PM EDT Ray Salomon MD POINT OF CARE TEST O SANDEEPERAFRANKLIN Performing Organization Address City/[facility]/ZIP Co de Phone Number [facility] [place] [address] * POCT Glucose (01/04/2022 12:09 PM EDT) Glucose, POC 157 65 - 199 mg/dL [facility] Comment: Supplemental ranges: <140 mg/dL before meals <180 mg/dL all other times of the day Blood 01/04/2022 12:0 9 PM EDT 01/04/2022 12:09 PM EDT Ray Salomon MD POINT OF CARE TEST O RDERABLES [facility] [address] [place] [address] * ECHO COMPLETE W CONTRAST (01/04/2022 11:08 AM EDT) EF 60 HEARTLAB SYSTEM Anatomical Region Laterality Modality Cardiac Other 01/04/2022 10:3 3 AM EDT Narrative 01/04/2022 11:25 AM EDT ?[facility] ?[address] ? [place] [address] ?Voice: ?Fax: ? Echocardiogram Report Name: AFUA ROSALES ? Study Date: 01/04/2022 10:33 AM ? Patient Location: [facility] A : 1975 ? Height: 65 in ? Account: [id number] Age: 46 yrs ? Weight: 148 lb Gender: Female ?BSA: 1.7 m2 Ordering Physician: MOI LEDEZMA Referring Physician: MT VALENZUELA Exam Location: [facility]. Interpretation Summary Technically difficult. Left ventricular systolic [...] jet. There is no valve disease. Procedure Complete-69091. Image enhancement Optison was used for left [...] Procedure Note Ray Salomon MD - 01/04/2022 [place] [address] Voice: Fax: Echocardiogram Report Name: AFUA ROSALES Study Date: :33 AM Patient Location: [address] : 1975 Height: 65 in Account: [id number] Age: 46 yrs Weight: 148 lb Gender: Female BSA: 1.7 m2 Ordering Physician: MOI LEDEZMA Referring Physician: MT VALENZUELA Exam Location: [facility]. Interpretation Summary Technically difficult. Left ventricular systolic [...] jet. There is no valve disease. Procedure Complete-10006. Image enhancement Optison was used for left [...] TEST O RDERABLES [facility] [place] [address] * POCT Glucose (01/04/2022 8:23 AM EDT) Glucose, POC 72 65 - 199 mg/dL [facility] Comment: Supplemental ranges: <140 mg/dL before meals <180 mg/dL all other times of the day Blood 01/04/2022 8:23 AM EDT 01/04/2022 8:23 AM EDT Moi Ledezma MD POINT OF CARE TEST O RDERABLES [facility] [place] [address] * POCT Glucose (01/04/2022 5:03 AM EDT) Glucose, POC 143 65 - 199 mg/dL [facility] Comment: Supplemental ranges: <140 mg/dL before meals <180 mg/dL all other times of the day Blood 01/04/2022 5:03 AM EDT 01/04/2022 5:03 AM EDT Moi Ledezma MD POINT OF CARE TEST O MUSHTAQ Performing Organization Address [facility] Co de Phone Number [facility] [place] [address] * POCT Glucose (01/04/2022 3:01 AM EDT) Glucose, POC 182 65 - 199 mg/dL [facility] Comment: Supplemental ranges: <140 mg/dL before meals <180 mg/dL all other times of the day Blood 01/04/2022 3:01 AM EDT 01/04/2022 3:01 AM EDT Moi Ledezma MD POINT OF CARE TEST O MUSHTAQ Performing Organization Address [facility] Co de Phone Number [facility] [place] [address] * (ABNORMAL) BLOOD GAS 2 VENOUS (01/04/2022 1:44 AM EDT) pH, Venous 7.33 7.32 - 7.42 [facility] PCO2, Venous 45 41 - [...] Fraction of Inspired Oxygen, Venous 21 % [facility] Blood Gas Source Venous [facility] Temperature, Venous 35.8 Celsius [facility] Blood 01/04/2022 1:44 AM EDT 01/04/2022 1:44 AM EDT Moi Ledezma MD POINT OF CARE TEST O RDERABLES [facility] [place] [address] * (ABNORMAL) Differential, Automated (01/04/2022 12:50 AM EDT) Neutrophil % 86.1 % [facility] Neutrophil Absolute 5.92 1.70 - 6.10 x10(3)/mc L [facility] Lymph % 9.6 % [facility] Lymphocytes Abs 0.7(L) 0.9 - 3.2 x10(3)/mc L [facility] Monocyte % 3.6 % [facility] Monocyte Abs 0.2(L) 0.3 - 0.9 x10(3)/mc L [facility] Eos % 0.1 % [facility] Eosinophils Abs 0.0 0.0 - 0.4 x10(3)/ L [facility] Basophil % 0.3 % [facility] Baso Absolute 0.0 0.0 - 0.1 x10(3)/ L [facility] Immature Gran [...] Immature Gran Absolute 0.02 0.00 - 0.04 x10(3)/ L [facility] Blood 01/04/2022 12:5 0 AM EDT 01/04/2022 1:24 AM EDT Narrative Resulting Agency Comment Spec In Lab Sumanth Barnard MD HEMATOLOGY ORDERABL ES [facility] [place] [address] * (ABNORMAL) Hemogram (01/04/2022 12:50 AM EDT) White Blood Cell 6.9 4.0 - 9.5 x10(3)/ L [facility] NRBC% auto 0.0 % [facility] NRBC Absolute 0.000 0.000 - 0.000 x10(3)/mc L [facility] Blood 01/04/2022 12:5 0 AM EDT 01/04/2022 1:24 AM EDT Narrative Resulting Agency Comment Spec In Lab Sumanth Barnard MD HEMATOLOGY ORDERABL ES Performing Organization Address City/[facility]/ZIP Co de Phone Number [facility] [place] [address] * (ABNORMAL) Beta Hydroxybutyrate (01/04/2022 12:50 AM EDT) Beta-hydroxybu turate 0.95(H) 0.00 - 0.30 mmol/L [facility] Comment: Reference range: ??0.00-0.30 mmol/L, based on an overnight fast. ??Children may be higher. Blood 01/04/2022 12:5 0 AM EDT 01/04/2022 1:24 AM EDT Narrative Resulting Agency Comment Spec In Lab Moi Ledezma MD CHEMISTRY ORDERABLES [facility] [place] [address] * (ABNORMAL) Hemoglobin A1c (01/04/2022 12:50 AM [...] Mellitus, Diabetes Care 2013; 36: Suppl. 1, E88-61 Estimated Average Glucose 183 mg/dL [facility] [...] into estimated average glucose values. ??Diabetes Care 2008:31(8):4575-5703. Blood 01/04/2022 12:5 0 AM EDT 01/04/2022 1:24 AM EDT Narrative Resulting Agency Comment Spec In Lab Moi Ledezma MD CHEMISTRY ORDERABLES [facility] [place] [address] * (ABNORMAL) Troponin (01/04/2022 12:50 AM EDT) [...] meets the diagnosis for a myocardial infarction ([place]). Detection of a rise and/or fall of cTnT, with at least one value greater than the 99th percentile (> or = 0.01) and with at least one of the following ?? Symptoms of ischemia ?? New or presumed new significant SM-xlgbszy-M wave (ST-T) changes or new left bundle [...] additional sample may be indicated. Reference: Third [place] Definition of Myocardial Infarction. Journal of the [place] [employer] 2012;60:1581-98 Blood 01/04/2022 12:5 0 AM EDT 01/04/2022 1:24 AM EDT Narrative Resulting Agency Comment Spec In Lab Moi Ledezma MD CHEMISTRY ORDERABLES Performing Organization Address [facility] Co de Phone Number [facility] [place] [address] * pro-Brain Natriuretic Peptide (01/04/2022 12:50 AM EDT) NT-proBNP 56 <=124 pg/mL [facility] Blood 01/04/2022 12:5 0 AM EDT 01/04/2022 1:24 AM EDT Narrative Resulting Agency Comment Spec In Lab Moi Ledezma MD CHEMISTRY ORDERABLES Performing Organization Address [facility]/State/ZIP Co de Phone Number [facility] [place] [address] * LDL Cholesterol, Direct (01/04/2022 12:50 AM EDT) LDL Cholesterol, Direct 66 mg/dL [facility] Comment: Lowest Risk: <100 mg/dL Lower Risk: 100-129 mg/dL Borderline High Risk: 130-159 mg/dL High Risk: 160-189 mg/dL Very High Risk: >wc=893 mg/dL Blood 01/04/2022 12:5 0 AM EDT 01/04/2022 1:24 AM EDT Narrative Resulting Agency Comment Spec In Lab Moi Ledezma MD CHEMISTRY ORDERABLES [facility] [place] [address] * HDL/Cholesterol Profile (01/04/2022 12:50 AM EDT) Cholesterol, Total 136 mg/dL [facility] Comment: Lower Risk: <200 mg/dL Average Risk: 200-239 mg/dL Higher Risk: >cv=866 mg/dL HDL Cholesterol 63 mg/dL [facility] [...] greater than or equal to 190 mg/dL. http://Inporiaurl.com/PAG-FLW-Lzfveynsg Measure LDL if Total Cholesterol minus HDL Cholesterol is greater than 220 mg/dL. Adults aged 40-75 with LDL 70-189 mg/dL should have their 10 year ASCVD risk estimated with the ACC/AHA ASCVD risk commercial construction estimator http://tools.acc.org/SZBKF-Zhfk-Zysjibozs/ Statin should be discussed if risk greater [...] MD CHEMISTRY ORDERABLES Performing Organization Address [facility] Co de Phone Number [facility] [place] [address] * TSH (01/04/2022 12:50 AM EDT) Thyroid Stimulating Hormone 0.75 0.27 - 4.20 mcIU/mL [facility] Comment: Reference Interval (mcIU/mL): Females: ??First Trimester: 0.23-3.88 ??Second Trimester: 0.22-3.90 ??Third Trimester: 0.44-4.66 Blood 01/04/2022 12:5 0 AM EDT 01/04/2022 1:24 AM EDT Narrative Resulting Agency Comment Spec In Lab Moi Ledezma MD CHEMISTRY ORDERABLES Performing Organization Address [facility] de Phone Number [facility] [place] [address] * Phosphorus (01/04/2022 12:50 AM EDT) Phosphorus 2.7 2.5 - 4.5 mg/dL [facility] Blood 01/04/2022 12:5 0 AM EDT 01/04/2022 1:24 AM EDT Narrative Resulting Agency Comment Spec In Lab Moi Ledezma MD CHEMISTRY ORDERABLES Performing Organization Address [facility] Co de Phone Number [facility] [place] [address] * Magnesium (01/04/2022 12:50 AM EDT) Magnesium 0.84 0.69 - 1.07 mmol/L [facility] Blood 01/04/2022 12:5 0 AM EDT 01/04/2022 1:24 AM EDT Narrative Resulting Agency Comment Spec In Lab Moi Ledezma MD CHEMISTRY ORDERABLES [facility] [place] [address] * (ABNORMAL) Basic Metabolic Panel (non-fasting) (01/04/2022 [...] MD CHEMISTRY ORDERABLES [facility] [place] [address] * COVID-19 PCR (01/04/2022 12:50 AM EDT) [...] using the Simplexa COVID-19 Direct Assay by FP Complete as authorized by the FDA issued Emergency [...] Department of Pathology and Laboratory Medicine at [facility], certified under the Clinical Laboratory Improvement Amendments [...] fact sheets at the following FDA website: https://www.fda.gov/medical-devices/kglfhjvyudv-zxhnuex-1994-znmvb-24-wucuggveb- use-a axbcjeqfwxihq-fuwabqi-rsdpcru/hfogz-vuyuyqtewli-vcss SARS-CoV-2 Source [employer] Swab [facility] Nasopharyngeal Swab 01/05/20 12:50 AM EDT 01/04/2022 1:48 AM EDT Comment:Symptoms->Surveillan ce Narrative Resulting Agency Comment Spec In Lab Moi Ledezma MD MICROBIOLOGY - GENER AL ORDERABLES [facility] [place] [address] * EKG 12 Lead (01/04/2022 12:45 AM EDT) Ventricular rate 94 BPM MUSE SYSTEM Atrial Rate 94 BPM MUSE SYSTEM P-R Interval 140 ms MUSE SYSTEM QRS Duration 92 ms MUSE SYSTEM Q-T Interval 370 ms MUSE SYSTEM QTC Calculated (Bezet) 462 ms MUSE SYSTEM Calculated P [place] 69 degrees MUSE SYSTEM Calculated R [place] 2 degrees MUSE SYSTEM Calculated T [place] 89 degrees MUSE SYSTEM INTERPRETATION Normal sinus rhythm Low voltage QRS Nonspecific ST and T wave abnormality Abnormal ECG When compared with ECG of 13-NOV-1999 14:45, ST now depressed in Anterior leads Nonspecific T wave abnormality now evident in Lateral leads Confirmed by MD Umm, Ray Espinoza ([id number]) on 01/04/2022 1:03:04 PM MUSE SYSTEM 01/04/2022 12:4 5 AM EDT 01/04/2022 1:03 PM EDT Moi Ledezma MD ECG ORDERABLES Performing Organization Address [facility] de Phone Number MUSE SYSTEM * POCT Glucose (01/04/2022 12:07 AM EDT) Glucose, POC 126 65 - 199 mg/dL [facility] Comment: Supplemental ranges: <140 mg/dL before meals <180 mg/dL all other times of the day Blood 01/04/2022 12:0 7 AM EDT 01/04/2022 12:07 AM EDT Moi Ledezma MD POINT OF CARE TEST O RDERABLES Performing Organization Address [facility] de Phone Number [facility] [place] [address] * CARDIAC CATHETERIZATION (01/03/2022 11:45 PM EDT) Anatomical Region Laterality Modality Other Narrative 01/03/2022 11:54 PM EDT ?[facility] ? Cardiac Catheterization/Intervention Report ? Patient Name: Afua Rosales. ? Procedure Date: 01/03/2022 ? A #: [id number] ? Primary Physician: Moi Ledezma ? Case #: [id number] ? File Name: [id number] ? Catheterization Order Number: [id number] ? [facility] ? Final Report [place], [place] ? Patient Name: ? Afua A. Silver ?ID#: ?[id number] ? : ?1975 ? Procedure Date: ? [...] was ?designated as ASA Class IV. The [facility] clinical frailty scale is 5: Mildly ?Frail. ? Diagnostic Tests: ?Electrocardiography: ? EKG was assessed by ECG. EKG was Abnormal. EKG showed ST Deviation ? >= 0.5 mm and other abnormality. ?Medications Prior to Procedure: ? Aspirin, Statin and Thrombolytic (any). ? Indications for Diagnostic Cath: ?The priority of the diagnostic procedure was Emergent. The indication for ?the laborer road visit is ACS less than or equal [...] ?SH guiding catheter and a 3.5 Fr [place] [facility] [place] [address] ??20 Mhz. ??Imaging ?was successful. ??Image quality was excellent. ??The mid RCA showed severe ?diffuse atherosclerotic plaque. ??Measurements were performed after ?pre-dilation. ?Post Intervention: The stent was well expanded and apposed. ?Intravascular Ultrasound was performed in the distal RCA using a 6 Fr JR ?4 SH guiding catheter and a 3.5 Fr [place] [facility] [place] [address] ??20 Mhz. ?Imaging was successful. ??Image [...] dose administered prior to arrival in the laborer road. ?Recommended anti-platelet/anti-thrombotic regimen: ?Start aspirin 81 mg daily now and continue for indefinitely. ?Start clopidogrel 75 mg daily now and continue for 12 months then stop. ?These recommendations are made at the time of the intervention. Patient ?and provider preferences or a changing clinical situation may require ?modification of this regimen. Consult [facility] Interventional Cardiology for ?questions. ?The 1 year [...] medical treatment. Consult ?http://tools.acc.org/DAPTriskapp/#!/content/calculator/ or [facility] ?Interventional Cardiology for questions ? Conclusions: ?* [...] Procedure Note Moi Ledezma MD - 01/14/2022 [facility] Cardiac Catheterization/Intervention Report Patient Name: Afua RosalesMono Procedure Date: 01/03/2022 A #: [id number] Primary Physician: Moi Ledezma Case #: [id number] File Name: [id number] Catheterization Order Number: [id number] [facility] FinalReport [place], [place] Patient Name: Afua Rosales ID#:[id number] :1975 Procedure Date: January 03, 2022 Case [...] patientwas designated as ASA Class IV. The [facility] clinical frailty scale is 5:Mildly Frail. Diagnostic Tests: Electrocardiography: EKG was assessed by ECG. EKG was Abnormal. EKG showed STDeviation >= 0.5 mm and other abnormality. Medications Prior to Procedure: Aspirin, Statin and Thrombolytic (any). Indications for Diagnostic Cath: The priority of the diagnostic procedure was Emergent. Theindication for the laborer road visit is ACS less than or equal [...] SH guiding catheter and a 3.5 Fr [place] [facility] [place] [address] 20 Mhz.Imaging was successful. Image quality was excellent. The mid RCA showedsevere diffuse atherosclerotic plaque. Measurements were performed after pre-dilation. Post Intervention: The stent was well expanded and apposed. Intravascular Ultrasound was performed in the distal RCA using a 6Fr JR 4 SH guiding catheter and a 3.5 Fr [place] [facility] [place] [address] 20 Mhz. Imaging was successful. Image quality was excellent. The distalRCA showed severe diffuse atherosclerotic plaque. Measurements were performed after pre-dilation. Post Intervention: The stent was well expanded and apposed. Indication for Intervention: Coronary intervention was indicated for primary therapy for an acute myocardial infarction. The priority for the procedure was Emergent.The [facility] indication for the procedure was STEMI (after [...] The lesion was predilated with a 2.00mm [id number] MM balloon with a maximum inflation pressure [...] dose administered prior to arrival in the laborer road. Recommended anti-platelet/anti-thrombotic regimen: Start aspirin 81 mg daily now and continue for indefinitely. Start clopidogrel 75 mg daily now and continue for 12 months thenstop. These recommendations are made at the time of the intervention.Patient and provider preferences or a changing clinical situation mayrequire modification of this regimen. Consult [facility] Interventional Cardiologyfor questions. The 1 year bleeding [...] any medical treatment.Consult http://tools.acc.org/DAPTriskapp/#!/content/calculator/ or [facility] Interventional Cardiology for questions Conclusions: * Two [...] (ABNORMAL) POCT Glucose (01/03/2022 11:31 PM EDT) [facility] Signature Glucose, POC 200(H) 65 - 199 mg/dL [facility] Comment: Supplemental ranges: <140 mg/dL before meals <180 mg/dL all other times of the day Blood 01/03/2022 11:3 1 PM EDT 01/03/2022 11:31 PM EDT Moi Ledezma MD POINT OF CARE TEST O RDERABLES [facility] [place] [address] * (ABNORMAL) POCT Glucose (01/03/2022 10:56 PM EDT) Glucose, POC 265(H) 65 - 199 mg/dL [facility] Comment: Supplemental ranges: <140 mg/dL before meals <180 mg/dL all other times of the day Blood 01/03/2022 10:5 6 PM EDT 01/03/2022 10:56 PM EDT Moi Ledezma MD POINT OF CARE TEST O RDERABLES [facility] [place] [address] * (ABNORMAL) Point of Care Blood Gas [...] normal MCHC. POC Bgas Loc CC LAB [facility] Blood 01/03/2022 10:3 8 PM EDT 01/09/2022 12:00 PM EDT Ray Salomon MD CHEMISTRY ORDERABLES Performing Organization Address City/[facility]/ZIP Co de Phone Number [facility] [place] [address] * (ABNORMAL) POCT Glucose (01/03/2022 10:37 PM EDT) Glucose, POC 63(L) 65 - 199 mg/dL [facility] Comment: Supplemental ranges: <140 mg/dL before meals <180 mg/dL all other times of the day Blood 01/03/2022 10:3 7 PM EDT 01/03/2022 10:37 PM EDT Moi Ledezma MD POINT OF CARE TEST O RDERABLES Performing Organization Address [facility]/ZIP Co de Phone Number [facility] [place] [address] documented in this encounter Visit Diagnoses Not [...] Routine documented in this encounter Care Teams Faculty Criminal Justice Relationship Specialty Start Date End Date Felisha Juan, DEMETRIS [address] [place] [address] PCP - General Family Medicine 10/29/15 01/29/22 documented as of this encounter
--- OUTSIDE RECORDS SUMMARY | 2024-05-27 19:45 | XMS_ITS | Encounter Summary ---
Author Organization [facility] Address [facility] [place] [address] Care Team Providers Care Newspaper Photographer Name Role Phone Carey Hall MD Primary Care Provider [phone] Reason for Visit * Reason Comments Diabetic Foot Care Other left foot 2nd toe in jury Encounter Details Date Type Department Care Team (Late st Contact Info) Description 02/20/2015 8:30 AM EDT Office Visit Podiatry at [address] [place] [address] Ritesh Mackey Jr., [address] [place] [address] Dermatophytosis of nail; Foot pain, unspecified laterality; [...] on palpation. Nails display clinical signs of lvfdclf-cowfoerrts-sugitj in appearance, thickened greater than 2mm, Brittle [...] uncontrolled documented in this encounter Care Teams Newspaper Photographer Relationship Specialty Start Date End Date Carey Hall MD [address] [place] [address] PCP - General 06/25/10 10/28/15 documented as of this encounter
--- OUTSIDE RECORDS SUMMARY | 2024-05-27 19:45 | XMS_ITS | Encounter Summary ---
Author Organization [facility] Address [facility] [place] [address] Care Team Providers Care Sales Enablement Analyst Name Role Phone Felisha Juan APRN Primary Care Provider [phone] Encounter Details Date Type Department Care Team (Latest Contact Info) Description 04/18/2016 9:30 AM EDT Office [place] [address] Rosie Tao MD [facility] [place] [address] Type 1 diabetes mellitus with proliferative diabetic [...] management and to provide a review of snf diabetes care. Diabetes History: Kailey Hernandez has had diabetes Type 1 since age of 7 years. When initially diagnosed, she was extremely fatigued, had polyuria, weight loss, and polydypsia. She was followed by an weaver dobby loom- Dr Hernandez in [place], [place]. She is here for establishment of care since she has moved to [facility]. Her last visit was the initial [...] in 4 weeks, RTC in 4 months correction diabetes care: Medications - Outpatient treatment regimen recommendations pending based on the hospital course. Monitoring - continue BG tid ac & hs Diet - low fat/low carb diet Exercise - weight-bearing exercise 30 min/day, as tolerated Thank you for the consult To be D/w Dr Ann, this was a resident only encounter Rosie Tao MD Endocrine Fellow Pager- [phone] Insulin Discharge Instructions . Instructions for Lantus [...] have your insulin doses adjusted. [facility] Endocrine clinic office * Carlos Ann MD [...] uncontrolled documented in this encounter Care Teams Sales Enablement Analyst Relationship Specialty Start Date End Date Felisha Juan, DEMETRIS [address] [place] [address] PCP - General Family Medicine 10/29/15 01/29/22 documented as of this encounter
--- OUTSIDE RECORDS SUMMARY | 2024-05-27 19:45 | XMS_ITS | Clinical Summary ---
Author Organization [facility] Address [address] [place] [address] Care Team Providers Care Wind Turbine Mechanical Engineer Name Role Phone Unknown, Provider Primary Care [...] C Antibody Negative Negative 12/05/2021 11:10 EDT [facility] Blood VENOUS BLOOD / Unknown 12/04/2021 11:00 EDT 12/04/2021 21:57 EDT Provider Outr Resulting Lab CHEMISTRY & BLOOD GAS ORDERABLES [facility] [address] [place] [address] from Last 3 Months or Most Recently Relevant to Health Maintenance Care Teams Wind Turbine Mechanical Engineer Relationship Specialty Start Date End Date Unknown, Provider, PCP - General 01/18/16
--- OUTSIDE RECORDS SUMMARY | 2024-05-27 19:45 | XMS_ITS | Encounter Summary ---
Author Organization [facility] Address [facility] [place] [address] Care Team Providers Care Director Of Learning Name Role Phone Yessica Felisha RAMP MANAGER Primary Care Provider [phone] Encounter Details Date Type Department Care Team (Late st Contact Info) Description 11/21/2020 Orders [place] [address] Carlos Ann MD [facility] [place] [address] Controlled type 1 diabetes mellitus with retinopathy [...] in this encounter Care Teams Director Of Learning Relationship Specialty Start Date End Date Felisha Juan APRN [address] [place] [address] PCP - General Family Medicine 10/29/15 01/29/22 documented as of this encounter
--- OUTSIDE RECORDS SUMMARY | 2024-05-27 19:45 | XMS_ITS | Encounter Summary ---
Author Organization [facility] Address [facility] [place] [address] Care Team Providers Care Single Resource Boss Name Role Phone Felisha Juan DEMETRIS Primary Care Provider + [phone] Encounter Details Date Type Department Care Team (Latest Contact Info) Description 05/23/2019 8:30 AM EDT Office [place] [address] Francoise Tan APRN [facility] [place] [address] Type 1 diabetes mellitus with proliferative retinopathy [...] hypoglycemia and avoid severe hyperglycemia. She uses [employer] talking meter. Diabetes regimen: Basaglar 22 units [...] office visit with 28 minutes spent counseling qtha-zf-seof with patient in themanagement of glucose levels, reviewing prevention and treatment of hypoglycemia. She does rotate her injection sites. 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
--- OUTSIDE RECORDS SUMMARY | 2024-05-27 19:45 | XMS_ITS | Encounter Summary ---
Author Organization [facility] [address] Care Team Providers Care Kersey Department Supervisor Name Role Phone Yessica Felisha BLOCK PAVER Primary Care Provider [phone] Encounter Details Date Type Department Care Team (Late st Contact Info) Description 08/17/2017 Notes Only Endocrinology at [facility] [place] [address] Huong Ovalle, RN Social History Tobacco Use [...] on filedocumented in this encounter Care Teams Kersey Department Supervisor Relationship Specialty Start Date End Date Felisha Juan APRN [address] [place] [address] PCP - General Family Medicine 10/29/15 01/29/22 documented as of this encounter
--- OUTSIDE RECORDS SUMMARY | 2024-05-27 19:45 | XMS_ITS | Encounter Summary ---
Author Organization [facility] Address [facility] [place] [address] Care Team Providers Care Industrial Nurse Name Role Phone Felisha Juan APRN Primary Care Provider [phone] Reason for Visit * Reason Onset Date Comments Medication Refill 10/09/2020 Encounter Details Date Type Department Care Team (Late st Contact Info) Description 10/09/2020 Ref[place] [address] Breana Tee MD [facility] [place] [address] Controlled type 1 diabetes mellitus with retinopathy [...] 8:24 AM EST Script needs to go [employer] [address] [facility] Office [address] [place] [address] Patient test 6 times daily Transfer from previous [facility] Provider documented in this encounter Plan of Treatment Not on file documented as of this encounter Visit Diagnoses Diagnosis Controlled type 1 diabetes mellitus with retinopathy of both eyes, macular edema presence unspecified, unspecified retinopathy severity documented in this encounter Care Teams Industrial Nurse Relationship Specialty Start Date End Date Felisha Juan APRN [address] [place] [address] PCP - General Family Medicine 10/29/15 01/29/22 documented as of this encounter
--- OUTSIDE RECORDS SUMMARY | 2024-05-27 19:45 | XMS_ITS | Encounter Summary ---
Author Organization [facility] Address [facility] [place] [address] Care Team Providers Care Line Up Machine Operator Name Role Phone Yessica Felisha DIRECTOR BIOSTATISTICS Primary Care Provider Encounter Details Date Type Department Care Team (Late st Contact Info) Description 01/03/2022 External Results [place] [address] Social History Tobacco Use Types Packs/Day Years [...] on filedocumented in this encounter Care Teams Line Up Machine Operator Relationship Specialty Start Date End Date Felisha Juan APRN [address] [place] [address] PCP - General Family Medicine 10/29/15 01/29/22 documented as of this encounter
--- OUTSIDE RECORDS SUMMARY | 2024-05-27 19:45 | XMS_ITS | Encounter Summary ---
Author Organization [facility] Address [facility] [place] [address] Care Team Providers Care Elevating Grader Operator Name Role Phone Felisha Juan APRN Primary Care Provider + [phone] Reason for Visit * Reason Onset Date Comments Medication Problem 11/19/2020 Encounter Details Date Type Department Care Team (Late st Contact Info) Description 11/19/2020 Telephone [place] [address] Carlos Ann MD [facility] [place] [address] Medication Problem Social History Tobacco Use Types [...] he asked to have them sent to [employer] instead. Delano stated the phone number to [employer] is [phone]. Please call Delano with any questions . [...] on filedocumented in this encounter Care Teams Elevating Grader Operator Relationship Specialty Start Date End Date Felisha Juan, DEMETRIS [address] [place] [address] PCP - General Family Medicine 10/29/15 01/29/22 documented as of this encounter
--- OUTSIDE RECORDS SUMMARY | 2024-05-27 19:45 | XMS_ITS | Encounter Summary ---
Author Organization [facility] Address [address] [place] [address] Care Team Providers Care Breakfast And Room Attendant Name Role Phone Unknown, Provider Primary Care Provider Encounter Details Date Type Department Care Team (Late st Contact Info) Description 12/04/2021 Lab Requisition [facility] Pathology & Laboratory Medicine - [facility] [address] [place] [address] Outr Resulting Lab, Provider Social History Tobacco [...] 4th Generation Negative Negative 12/05/2021 10:51 EDT [facility] Comment:If acute HIV-1 infec tion is suspected in a high risk patient, submit plasma specimen for HIV-1 RNA quantitation test. Blood VENOUS BLOOD / Unknown 12/04/2021 11:00 EDT 12/04/2021 22:05 EDT Narrative [facility] - 12/05/2021 10:51 EDT Fourth Generation assay performed on the Siemens Centaur XPT. Provider Outr Resulting Lab IMMUNOLOGY A ND SEROLOGY ORDERABLES [facility] [address] [place] [address] documented in this encounter Visit Diagnoses Not on filedocumented in this encounter Care Teams Breakfast And Room Attendant Relationship Specialty Start Date End Date Unknown, Provider, PCP - General 01/18/16 documented as of this encounter
--- OUTSIDE RECORDS SUMMARY | 2024-05-27 19:45 | XMS_ITS | Encounter Summary ---
Author Organization [facility] Address [facility] [place] [address] Care Team Providers Care User Acceptance Tester Name Role Phone Carey Hall MD Primary Care Provider [phone] Reason for Visit * Reason Comments Diabetic Foot Care Encounter Details Date Type Department Care Team ([facility] Contact Info) Description 07/09/2012 11:15 AM EST Office Visit Podiatry at [address] [place] [address] Ritesh Mackey Jr., [facility] [address] [place] [address] Other specified disease of nail; DM w/o [...] uncontrolled documented in this encounter Care Teams User Acceptance Tester Relationship Specialty Start Date End Date Carey Hall MD [address] [place] [address] PCP - General 06/25/10 10/28/15 documented as of this encounter
--- OUTSIDE RECORDS SUMMARY | 2024-05-27 19:45 | XMS_ITS | Encounter Summary ---
Author Organization [facility] Address [address] [place] [address] Care Team Providers Care Hogshead Dumper Name Role Phone Unknown, Provider Primary Care Provider Encounter Details Date Type Department Care Team (Late st Contact Info) Description 01/17/2016 Results Only [facility] [phone] Felisha Mckinnon NP [address] [place] [address] Social History Tobacco Use Types Packs/Day Years [...] ? KAILEY HERNANDEZ ? Accession #: ? [id number] ? : ? 1975 (Age: 40) ??F [...] types 16,18,31,33,35, 39,45,51,52,56,58, 59,66, and 68 by water chaser mediated amplification. Comments Document reviewed and electronically signed by: ? System Interface ? Report date: 02/01/2016 By the signature above, the attending physician certifies that he/she has personally conducted a gross and/or microscopic examination of the described specimens and rendered or confirmed the above diagnosis. End of Report [facility] 01/17/2016 01/18/2016 Felisha Koshowski RECOVERY OPERATOR PATHOLOGY ORDERABLES [facility] [address] [place] [address] documented in this encounter Visit Diagnoses Not on filedocumented in this encounter Care Teams Hogshead Dumper Relationship Specialty Start Date End Date Unknown, Provider, PCP - General 01/18/16 documented as of this encounter
--- OUTSIDE RECORDS SUMMARY | 2024-05-27 19:45 | XMS_ITS | Encounter Summary ---
Author Organization [facility] [place] [address] Care Team Providers Care Executive Office Manager Name Role Phone Yessica Felisha STUDENT ACCOUNTS COORDINATOR Primary Care Provider + [phone] Reason for Visit * Reason Onset Date Comments Medication Refill 03/03/2019 Encounter Details Date Type Department Care Team (Late st Contact Info) Description 03/03/2019 [place] [address] Francoise Tan STUDENT ACCOUNTS COORDINATOR [facility] [place] [address] Diabetes mellitus without complication Social History Tobacco [...] uncontrolled documented in this encounter Care Teams Executive Office Manager Relationship Specialty Start Date End Date Felisha Juan APRN [address] [place] [address] PCP - General Family Medicine 10/29/15 01/29/22 documented as of this encounter
--- OUTSIDE RECORDS SUMMARY | 2024-05-27 19:45 | XMS_ITS | Encounter Summary ---
Author Organization [facility] [place] [address] Care Team Providers Care Ramp Supervisor Name Role Phone Felisha Juan APRN Primary Care Provider [phone] Encounter Details Date Type Department Care Team (Late st Contact Info) Description 11/09/2017 Orders [place] [address] Francoise Tan APRN [facility] [place] [address] Social History Tobacco Use Types Packs/Day Years [...] on filedocumented in this encounter Care Teams Ramp Supervisor Relationship Specialty Start Date End Date Felisha Juan APRN [address] [place] [address] PCP - General Family Medicine 10/29/15 01/29/22 documented as of this encounter
--- OUTSIDE RECORDS SUMMARY | 2024-05-27 19:45 | XMS_ITS | Encounter Summary ---
Author Organization [facility] Address [facility] [place] [address] Care Team Providers Care Crop Adjuster Name Role Phone Carey Hall MD Primary Care Provider [phone] Reason for Visit * Reason Comments Diabetic Foot Care Encounter Details Date Type Department Care Team ([facility] st Contact Info) Description 08/15/2013 9:30 AM EST Office Visit Podiatry at [address] [place] [address] Ritesh Mackey Jr., [facility] [address] [facility] [place] [address] Dermatophytosis of nail (Primary Dx); Pain in [...] on palpation. Nails display clinical signs of gbsxhch-argajhphru-jaobam in appearance, thickened greater than 2mm, Brittle [...] clearly painful. This has been pretty dramatic policy change clerks supervisor past couple of months documented in this encounter Plan of Treatment Not on file documented as of this encounter Visit Diagnoses Diagnosis Dermatophytosis of nail- Primary Pain in limb Type II or unspecified type diabetes mellitus without mention of complication, not stated as uncontrolled documented in this encounter Care Teams Crop Adjuster Relationship Specialty Start Date End Date Carey Hall MD [address] [place] [address] PCP - General 06/25/10 10/28/15 documented as of this encounter
--- OUTSIDE RECORDS SUMMARY | 2024-05-27 19:45 | XMS_ITS | Encounter Summary ---
Author Organization [facility] Address [facility] [place] [address] Care Team Providers Care Anatomy Professor Name Role Phone Jose Pittman Primary Care Provider + [phone] Reason for Visit * Reason Onset Date Comments Medication Refill 11/09/2017 Encounter Details Date Type Department Care Team (Late st Contact Info) Description 11/09/2017 Ref[place] [address] Francoise Tan [facility] [place] [address] Diabetes mellitus without complication Social History Tobacco [...] uncontrolled documented in this encounter Care Teams Anatomy Professor Relationship Specialty Start Date End Date Jose Pittman PA [address] [place] [address] PCP - General Internal Medicine 01/30/22 04/01/24 documented as of this encounter
--- OUTSIDE RECORDS SUMMARY | 2024-05-27 19:45 | XMS_ITS | Encounter Summary ---
Author Organization [facility] Address [facility] [place] [address] Care Team Providers Care Pt Skilled Name Role Phone Carey Hall MD Primary Care Provider [phone] Reason for Visit * Reason Comments Diabetic Foot Care Encounter Details Date Type Department Care Team ([facility] st Contact Info) Description 02/23/2012 4:00 PM EDT Office Visit Podiatry at [address] [place] [address] Ritesh Mackey Jr., DPM [address] [place] [address] [place] [address] Other specified disease of nail (Primary Dx) [...] encounter Miscellaneous Notes * Miscellaneous - Carrington, General Education Professor - 03/05/2012 10:46 AM EDT documented in this encounter Plan of Treatment Not on file documented as of this encounter Visit Diagnoses Diagnosis Other specified disease of nail- Primary documented in this encounter Care Teams Pt Skilled Relationship Specialty Start Date End Date Carey Hall MD [address] [place] [address] PCP - General 06/25/10 10/28/15 documented as of this encounter
--- OUTSIDE RECORDS SUMMARY | 2024-05-27 19:45 | XMS_ITS | Encounter Summary ---
Author Organization [facility] [place] [address] Care Team Providers Care Bed Control Specialist Name Role Phone Felisha Juan APRN Primary Care Provider + [phone] Encounter Details Date Type Department Care Team (Late st Contact Info) Description 07/30/2017 Notes Only Endocrinology at [facility] [place] [address] Huong Ovalle, RN Social History Tobacco Use [...] on filedocumented in this encounter Care Teams Bed Control Specialist Relationship Specialty Start Date End Date Felisha Juan APRN [address] [place] [address] PCP - General Family Medicine 10/29/15 01/29/22 documented as of this encounter
--- OUTSIDE RECORDS SUMMARY | 2024-05-27 19:45 | XMS_ITS | Encounter Summary ---
Author Organization [facility] Address [facility] [place] [address] Care Team Providers Care Healthcare Architect Name Role Phone Carey Hall MD Primary Care Provider [phone] Encounter Details Date Type Department Care Team (Late st Contact Info) Description 08/08/2010 11:00 AM EST Office Visit Podiatry [address] [place] [address] Ritesh Mackey Jr., [facility] [address] [facility] [place] [address] Social History Tobacco Use Types Packs/Day Years Used Date Smoking Tobacco: Never Assessed Sex and Gender Information Value Date Recorded Sex Assigned at Not on file Gender Identity Not on file Sexual Orientation Not on file documented as of this encounter Plan of Treatment Not on file documented as of this encounter Visit Diagnoses Not on filedocumented in this encounter Care Teams Healthcare Architect Relationship Specialty Start Date End Date Carey Hall MD [address] [place] [address] PCP - General 06/25/10 10/28/15 documented as of this encounter
--- OUTSIDE RECORDS SUMMARY | 2024-05-27 19:45 | XMS_ITS | Encounter Summary ---
Author Organization [facility] Address [facility] [place] [address] Care Team Providers Care Sales Representative [employer] Name Role Phone Felisha Juan APRN Primary Care Provider + [phone] Encounter Details Date Type Department Care Team ([facility] st Contact Info) Description 11/13/2020 1:00 PM EDT Office Visit [place] [address] Breana Tee MD [facility] [place] [address] Controlled type 1 diabetes mellitus with retinopathy [...] 1:00 PM EDT Diabetes Follow-up Patient Evaluation [facility] Name: Kailey Hernandez Date: 11/13/20 CC: Diabetes management HPI: Kailey Hernandez is a 45 y.o.female with PMH significant for DM1 c/b b/l retinopathy and blindness who comes to the clinic for management of diabetes. Ms. Hernandez is doing well with no acute concerns about her DM management. Initially during the visit, she stated that she received a letter from [facility] that stated she can no [...] snacks/day * Breakfast: PB sandwich * Lunch: [place]? steak on a burger bun * Dinner: Part of a subway sandwich * Snacks: Crackers, cheese * Desserts: No * Drinks: No 2019QI Exercise: Predominantly walking Prevention: Statin: Pravastatin 20 mg (no hx of intolerance) NATE/ARB: None Support and Resources: - Visit with air pollution control engineer in the last 2 years: No ROS: [...] them as documented. 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
--- OUTSIDE RECORDS SUMMARY | 2024-05-27 19:45 | XMS_ITS | Encounter Summary ---
Author Organization [facility] [place] [address] Care Team Providers Care Order Processing Manager Name Role Phone Yessica Felisha WILLSON Primary Care Provider [phone] Encounter Details Date Type Department Care Team (Late st Contact Info) Description 11/23/2020 Notes Only Endocrinology at [facility] [place] [address] Micki Leone, PARALEGAL SUPERVISOR Social History Tobacco Use Types Packs/Day Years Used Date Smoking Tobacco: Never Smokeless Tobacco: Never Sex and Gender Information Value Date Recorded Sex Assigned at Not on file Gender Identity Not on file Sexual Orientation Not on file documented as of this encounter Progress Notes * Micki Leone RMA - 11/23/2020 1:18 PM EDT [facility] for Diabetic Supplies faxed to [employer]. Confirmation received. documented in this encounter Plan of Treatment Not on file documented as of this encounter Visit Diagnoses Not on filedocumented in this encounter Care Teams Order Processing Manager Relationship Specialty Start Date End Date Felisha Juan APRN [address] [place] [address] PCP - General Family Medicine 10/29/15 01/29/22 documented as of this encounter
--- OUTSIDE RECORDS SUMMARY | 2024-05-27 19:45 | XMS_ITS | Encounter Summary ---
Author Organization [facility] Address [facility] [place] [address] Care Team Providers Care Chart Calculator Name Role Phone Yessica Felisha WILLSON Primary Care Provider [phone] Encounter Details Date Type Department Care Team (Late st Contact Info) Description 01/03/2022 [place] [address] Madi Briceño MD [facility] [place] [address] Social History Tobacco Use Types Packs/Day Years [...] on filedocumented in this encounter Care Teams Chart Calculator Relationship Specialty Start Date End Date Felisha Juan APRN [address] [place] [address] PCP - General Family Medicine 10/29/15 01/29/22 documented as of this encounter
--- OUTSIDE RECORDS SUMMARY | 2024-05-27 19:45 | XMS_ITS | Encounter Summary ---
Author Organization [facility] Address [facility] [place] [address] Care Team Providers Care Conditioning Room Worker Name Role Phone Carey Hall MD Primary Care Provider [phone] Reason for Visit * Reason Comments Diabetic Foot Care Encounter Details Date Type Department Care Team ([facility] st Contact Info) Description 11/05/2012 2:45 PM EDT Office Visit Podiatry at [address] [place] [address] Ritesh Mackey Jr., [facility] [address] [place] [address] [place] [address] Other specified disease of nail (Primary Dx) [...] Primary documented in this encounter Care Teams Conditioning Room Worker Relationship Specialty Start Date End Date Carey Hall MD [address] [place] [address] PCP - General 06/25/10 10/28/15 documented as of this encounter
--- OUTSIDE RECORDS SUMMARY | 2024-05-27 19:45 | XMS_ITS | Encounter Summary ---
Author Organization [facility] [place] [address] Care Team Providers Care Horticultural Nursery Assistant Name Role Phone Yessica Felisha PHYSICAL THERAPY TEACHER Primary Care Provider [phone] Reason for Visit * Reason Onset Date Comments Medication Refill 11/12/2017 Encounter Details Date Type Department Care Team (Late st Contact Info) Description 11/12/2017 [place] [address] Francoise Tan PHYSICAL THERAPY TEACHER [facility] [address] [place] [address] Diabetes mellitus without complication Social History Tobacco [...] uncontrolled documented in this encounter Care Teams Horticultural Nursery Assistant Relationship Specialty Start Date End Date Felisha Juan APRN [address] [place] [address] PCP - General Family Medicine 10/29/15 01/29/22 documented as of this encounter
--- OUTSIDE RECORDS SUMMARY | 2024-05-27 19:45 | XMS_ITS | Encounter Summary ---
Author Organization [facility] Address [facility] [place] [address] Care Team Providers Care Field Services Analyst Name Role Phone Felisha Juan APRN Primary Care Provider + [phone] Reason for Visit * Reason Comments Diabetes * Consultation (Routine) - Closed Specialty Diagnoses / Procedures Referred By Contdelmi t Referred To Contact Endocrinology Diagnoses Diabetes Mellitus Type 1, uncontrolled w/ Ophthalmic comps Felisha Juan APRN [address] [place] [address] [facility] [address] [place] [phone] Referral ID Status Reason Start Date Expiration Date V isits Requested Visits Authorized [id number] Closed Consult, Test & Treat Connection Center 10/29/2015 10/28/2016 1 1 Encounter Details Date Type Department Care Team (Late st Contact Info) Description 12/11/2015 9:30 AM EDT Office [place] [address] Olegario Wright DO [facility] [place] [address] Rosie Tao MD [facility] [place] [address] Type 1 diabetes mellitus with diabetic retinopathy, [...] day to have your insulin doses adjusted. [facility] Endocrine clinic office documented in this encounter Progress Notes * Olegario Wright DO - 12/18/2015 3:49 PM EDT I have seen the patient and reviewed Dr Tao's history and I agree with the details as written. The assessment and plan were formulated in discussion with me and I agree with them as documented. Olegario Wright DO, MS Staff Vehicle Return Associate * Rosie Tao MD - 12/10/2015 1:32 PM EDT Diabetes Outpatient Consult Date of Consultation: 12/10/2015 Consult Requested by: Dr. Juan Reason for Consultation: Kailey Hernandez is a 40 y.o. years old female with PMH significant for DM .We are being consulted to assist with diabetes management and to provide a review of petroleum terminal plant operator diabetes care. Diabetes History: Kailey Hernandez has had diabetes Type 1 since age 7 years. When initially diagnosed, she was extremely fatigued, had polyuria, weight loss, and polydypsia. She was followed by an outdoor adventure leader- Dr Hernandez in [place], [place]. She is here for establishment of [...] in 4 weeks, RTC in 4 months terminal worker diabetes care: Medications - Outpatient treatment regimen recommendations pending based on the hospital course. Monitoring - continue BG tid ac & hs Diet - low fat/low carb diet Exercise - weight-bearing exercise 30 min/day, as tolerated Thank you for the consult D/w Dr Adriana Tao MD Endocrine Fellow Pager- [phone] Insulin Discharge Instructions . Instructions for Lantus [...] day to have your insulin doses adjusted. [facility] Endocrine clinic office documented in this encounter Plan of Treatment Not on file documented as of this encounter Results * Microalbumin, urine, random (08/22/2016 9:06 AM EST) Pathologist [facility] Albumin / Creatinin Ratio, Urine 17 0 [...] LABORATORY Creatinine, Urine 75 mg/dL [facility] Urine specimen (specimen) 08/22/2016 9:06 AM EST 08/22/2016 9:20 AM EST Narrative Resulting Agency Comment Spec In Lab Olegario Wright DO URINE ORDERABLES [facility] [place] [address] * Lipid panel (fasting) (08/22/2016 8:51 AM [...] greater than or equal to 190 mg/dL. http://circ.ahajournals.org/content/early/.cir.9421123982.36691.7a Adults aged 40-75 with LDL 70-189 mg/dL should have their 10 year ASCVD risk estimated with the ACC/AHA ASCVD risk turpentine farmer http://tools.acc.org/OGYUE-Ubjh-Zdhrpfdyj/ Statin should be discussed if risk greater [...] Wright DO CHEMISTRY ORDERABLES [facility] [place] [address] * (ABNORMAL) Hemoglobin A1c (08/22/2016 8:51 AM [...] Mellitus, Diabetes Care 2013; 36: Suppl. 1, V17-71 Estimated Average Glucose 166 mg/dL [facility] [...] resources are available on the ADA website: http://A2B.Rapportive/DHMCadacalc Tj JESSICA, Mal J, Bk R, et al. ??Translating the A1C assay into estimated average glucose values. ??Diabetes Care 2008:31(8):5850-9045. Blood specimen (specimen) 08/22/2016 8:51 AM EST 08/22/2016 8:58 AM EST Narrative Resulting Agency Comment Spec In Lab Olegario Wright DO CHEMISTRY ORDERABLES Performing Organization Address City/State/[facility] Co de Phone Number [facility] [place] [address] documented in this encounter Visit Diagnoses Diagnosis Type 1 diabetes mellitus with diabetic retinopathy, macular edema presence unspecified, unspecified retinopathy severity documented in this encounter Care Teams Field Services Analyst Relationship Specialty Start Date End Date Felisha Juan APRN [address] [place] [address] PCP - General Family Medicine 10/29/15 01/29/22 documented as of this encounter
--- OUTSIDE RECORDS SUMMARY | 2024-05-27 19:45 | XMS_ITS | Encounter Summary ---
Author Organization [facility] Address [facility] [place] [address] Care Team Providers Care Junior Linux Systems Administrator Name Role Phone Carey Hall MD Primary Care Provider [phone] Encounter Details Date Type Department Care Team (Late st Contact Info) Description 02/07/2014 2:00 PM EDT Office Visit Podiatry at [address] [place] [address] Ritesh Mackey Jr., [address] [place] [address] Dermatophytosis of nail; Pain in limb; DM [...] on palpation. Nails display clinical signs of zfxktxu-ncbbiaiyhh-cohoav in appearance, thickened greater than 2mm, Brittle [...] documented in this encounter Care Teams Junior Linux Systems Administrator Relationship Specialty Start Date End Date Carey Hall MD [address] [address] PCP - General 06/25/10 10/28/15 documented as of this encounter
--- OUTSIDE RECORDS SUMMARY | 2024-05-27 19:45 | XMS_ITS | Encounter Summary ---
Author Organization [facility] Address [facility] [place] [address] Care Team Providers Care Undercollar Baster Name Role Phone Carey Hall MD Primary Care Provider [phone] Reason for Visit * Reason Comments Diabetic Foot Care Encounter Details Date Type Department Care Team ([facility] Contact Info) Description 08/31/2014 10:00 AM EST Office Visit Podiatry at [address] [place] [address] Ritesh Mackey Jr., [address] [place] [address] Dermatophytosis of nail; Pain in extremity, unspecified [...] on palpation. Nails display clinical signs of gscttxq-ynsxcfkanw-nmtlld in appearance, thickened greater than 2mm, Brittle [...] uncontrolled documented in this encounter Care Teams Undercollar Baster Relationship Specialty Start Date End Date Carey Hall MD [address] [address] PCP - General 06/25/10 10/28/15 documented as of this encounter
[2024-05-27] MEDS: Prochlorperazine 10 MG/2 ML VIAL 5 MG IVP (19:50)
[2024-05-27] MEDS: Ondansetron 4 MG/2 ML VIAL IVP (19:50)
[2024-05-27] MEDS: diphenhydrAMINE 50 MG/ML VIAL 25 MG IVP (19:50)
[2024-05-27] MEDS: Dexamethasone 4 MG/ML VIAL IVP (19:50)
[2024-05-27 19:57] LABS: Abs Immature Grans 0.01 10^3/uL (0.0-0.06); Absolute Basophil Count 0.03 10^3/uL (0.0-0.2); Absolute Lymphocyte Count 1.59 10^3/uL (1.2-3.4); Absolute Monocyte Count 0.74 10^3/uL (0.1-0.8); Absolute Neutrophil Count 2.19 10^3/uL (1.2-6.7); Basophils % 0.6 %; Eosinophils % 2.1 %; HCT 31.7 % (36.0-46.0); HGB 10.6 g/dL (11.2-15.7); Immature Grans % 0.2 %; Lymphocytes % 34.1 %; MCH 31.6 pg (27.0-33.0); MCHC 33.4 % (32.0-36.0); MCV 95 fL (80-95); MPV 9.4 fL (8.0-11.0); Monocytes % 15.9 %; Neutrophils % 47.1 %; Platelet Count 148 10^3/uL (130-400); RBC 3.35 10^6/uL (3.93-5.22); RDW 12.5 % (11.7-14.6); RDW-SD 43.6 fL; WBC 4.66 10^3/uL (4.4-10.8)
[2024-05-27 20:09] LABS: Bilirubin Negative (Negative); Blood Trace-intact (Negative); Clarity Clear (Clear); Glucose 100 mg/dL (Negative); Ketones Negative (Negative); Leukocyte Esterase Small (Negative); Nitrite Negative (Negative); Specific Gravity 1.025 (1.005-1.025); Urobilinogen 0.2 mg/dL (Up to 0.2)
[2024-05-27 20:13] LABS: ALT 48 U/L (14-59); AST 39 U/L (15-37); Albumin 3.8 g/dL (3.4-5.0); Alkaline Phosphatase 127 U/L (46-116); Anion Gap 7.4 mmol/L (3-11); BUN 18 mg/dL (7-18); CO2 31.6 mmol/L (21.0-32.0); Calcium 9.6 mg/dL (8.5-10.1); Chloride 103 mmol/L (98-107); Estimated GFR 68.63 (mL/min/1.73m2); Glucose 99 mg/dL (74-106); Potassium 4.2 mmol/L (3.5-5.1); Sodium 142 mmol/L (136-145)
[2024-05-27 20:20] LABS: Bacteria Few HPF (Negative); C & S Indicated? Yes; Casts Negative LPF (Negative); Crystals Negative HPF (Negative); Epithelial Cells Rare HPF (Negative); Mucus Negative (Negative)
--- NOTE | 2024-05-27 20:32 | NUR.NOTE ---
Pt came into ED for FERNANDEZ. Is T1D, on insulin glargine (20 unites/day, basal dose) and sliding scale and Insulin Aspart, sliding scale. Pt took short-acting insulin this afternoon around 16:30 and ate one can of Dinty Mcneill Beef Stew. Has not eaten anything else since. Came into ED around 17:30. At 20:15, pts significant other reported blood sugar low and dropping on dexcom. Pt was assessed, blood sugar in the 71, which is low for the patient. Pt protecting airway, stated she feels low. Contacted provider, discussed pt having PO peanut butter and a sugar drink. Pt given 2 packets of peanut butter and one small can of cola. Pt repeat blood sugar is 101 and patient is feeling better. Will continue to monitor. JESUS MitchellN, RN Nursing Note:
[2024-05-27] MEDS: Normal Saline - Diluent 50 ML VIAL IJ (20:48)
[2024-05-27] MEDS: Omnipaque 350 MG/ML 100 ML BTL IJ (20:49)
--- NOTE | 2024-05-27 21:57 | DI.VRAD_ITS ---
PROCEDURE INFORMATION: Exam: CTA Head Without And With Contrast, Arteriography Exam date and time: 05/27/2024 8:46 PM Age: 49 years old Clinical indication: Pain; Headache; Additional info: Headache, visual disturbance TECHNIQUE: Imaging protocol: Computed tomographic angiography of the head without and with contrast. Exam focused on the arteries. 3D rendering (Not supervised by radiologist): MIP and/or 3D reconstructed images were created by the technologist. Contrast material: OMNI 350; Contrast volume: 70 ml; Contrast route: INTRAVENOUS (IV); COMPARISON: CT BRAIN NECK CTA 07/05/2023 11:54 AM FINDINGS: ANTERIOR CIRCULATION: Right internal carotid artery: Intracranial segment is patent with no significant stenosis or occlusion. No aneurysm. Right middle cerebral artery: No occlusion or significant stenosis. No aneurysm. Right anterior cerebral artery: No occlusion or significant stenosis. No aneurysm. Left internal carotid artery: Intracranial segment is patent with no significant stenosis. No aneurysm. Left middle cerebral artery: No occlusion or significant stenosis. No aneurysm. Left anterior cerebral artery: No occlusion or significant stenosis. No aneurysm. POSTERIOR CIRCULATION: Right vertebral artery: No occlusion or significant stenosis. No aneurysm. Left vertebral artery: No occlusion or significant stenosis. No aneurysm. Basilar artery: No occlusion or significant stenosis. No aneurysm. Right posterior cerebral artery: No occlusion or significant stenosis. No aneurysm. Left posterior cerebral artery: No occlusion or significant stenosis. No aneurysm. HEAD: Brain: Normal. No hemorrhage. Unremarkable white matter. No mass effect. Cerebral ventricles: Normal. No ventriculomegaly. Bones: Unremarkable. No acute fracture. Paranasal sinuses: Visualized sinuses are normal. No fluid levels. Mastoid air cells: Visualized mastoids are normal. No mastoid effusion. Soft tissues: Unremarkable. IMPRESSION: 1. No large vessel occlusion. 2. Unremarkable CT head. PROCEDURE INFORMATION: Exam: CTA Neck Without And With Contrast Exam date and time: 05/27/2024 8:46 PM Age: 49 years old Clinical indication: Pain; Headache; Additional info: Headache, visual disturbance TECHNIQUE: Imaging protocol: Computed tomographic angiography of the neck without and with contrast. Exam focused on the cervical segments of the vasculature. 3D rendering (Not supervised by radiologist): MIP and/or 3D reconstructed images were created by the technologist. Contrast material: OMNI 350; Contrast volume: 70 ml; Contrast route: INTRAVENOUS (IV); COMPARISON: CT BRAIN NECK CTA 07/05/2023 11:54 AM FINDINGS: Right common carotid artery: No stenosis. No dissection or occlusion. Right internal carotid artery: No stenosis of the extracranial segment. No dissection or occlusion. Right external carotid artery: No occlusion or stenosis of the origin. Left common carotid artery: No stenosis. No dissection or occlusion. Left internal carotid artery: No stenosis of the extracranial segment. No dissection or occlusion. Left external carotid artery: No occlusion or stenosis of the origin. Right vertebral artery: No stenosis. No dissection or occlusion. Left vertebral artery: No stenosis. No dissection or occlusion. Soft tissues: Normal. No significant soft tissue swelling. Bones/joints: Mild scoliosis of the cervicothoracic spine. Partial developmental fusion of C4 and C5. No acute fracture. No significant arthritic change. IMPRESSION: No stenosis or occlusion. REFERENCES: NASCET CRITERIA. The degree of stenosis in the cervical segment of the internal carotid artery is based on NASCET criteria. Normal is no stenosis. Mild is less than 50% stenosis. Moderate is 50-69% stenosis. Severe is 70% to 99% stenosis. Total occlusion is no detectable patent lumen. Dictated and Authenticated by: Rodney Henry MD. Ordering:MIGUELANGEL Trujillo MD
[2024-05-27] MEDS: Cephalexin 500 MG CAP, 2 CAPS/BTL PO (22:10)
[2024-05-27] MEDS: Cephalexin 500 MG CAP PO (22:10)
== END 2024-05-27 22:13 | disposition home or self-care (01) ==
PROVIDERS: Emergency Provider Registered Nurse Emergency; PCP Nurse Practitioner
DX: G43.909 Migraine, unspecified, not intractable, without status migrainosus (principal); N39.0 Urinary tract infection, site not specified; E10.42 Type 1 diabetes mellitus with diabetic polyneuropathy; E10.319 Type 1 diabetes mellitus with unspecified diabetic retinopathy without macular edema; E78.00 Pure hypercholesterolemia, unspecified; I10 Essential (primary) hypertension; Z79.02 Long term (current) use of antithrombotics/antiplatelets; Z79.4 Long term (current) use of insulin; Z79.84 Long term (current) use of oral hypoglycemic drugs; I25.10 Atherosclerotic heart disease of native coronary artery without angina pectoris
CPT/HCPCS: 70496; 70498; 80053; 82962; 96374; 96375; 99285; 81003; 81015; 85025; 87086; 99284; J0780; J1100; J1200; J2405; J3490

== ENCOUNTER 2024-05-30 10:55 | Outpatient (CLI) | payer MEDICARE, MEDICAID, SELFPAY ==
[2024-05-30 10:31] LABS: HGB 12.1 g/dL (11.2-15.7); MCH 30.8 pg (27.0-33.0); MCHC 32.7 % (32.0-36.0); MCV 94 fL (80-95); MPV 9.3 fL (8.0-11.0); Platelet Count 173 10^3/uL (130-400); RBC 3.93 10^6/uL (3.93-5.22); RDW 12.5 % (11.7-14.6); RDW-SD 43.8 fL; WBC 5.34 10^3/uL (4.4-10.8)
[2024-05-30 10:58] LABS: TSH (W/Ref FT4) 0.76 uIU/mL (0.36-3.74)
[2024-05-30 17:55] LABS: T3, Total 147 ng/dL (97-169)
== END 2024-05-30 10:56 | disposition home or self-care (01) ==
LOC: LBO 10:55
PROVIDERS: PCP Nurse Practitioner; Visit Provider Nurse Practitioner Family
DX: J45.909 Unspecified asthma, uncomplicated; E10.42 Type 1 diabetes mellitus with diabetic polyneuropathy; E10.65 Type 1 diabetes mellitus with hyperglycemia
CPT/HCPCS: 36415; 85027; 84443; 84480; 84481

== ENCOUNTER 2024-06-17 13:42 | Emergency (ER) | payer MEDICARE, MEDICAID, SELFPAY ==
[2024-06-17] VITALS (7 sets, daily range): BP systolic 105–139; BP diastolic 41–97; PULSE 64–75; RESP 16–18; TEMP 36.3; O2SAT 98–100
--- NOTE | 2024-06-17 14:45 | DI.MRI_ITS ---
Exam(s) MR THORACIC SPINE WO/W EXAM: MR THORACIC SPINE WO/W CLINICAL HISTORY: mid to upper back pain, left hand peresthesia. TECHNIQUE: Multiplanar multisequence MRI of the Thoracic spine was performed. CONTRAST MATERIAL: IV Contrast: 14 mL of Dotarem contrast administered. COMPARISON: MR MR THORACIC SPINE WO/W from 04/29/2024 FINDINGS: Bones: The vertebral body heights are well maintained. Alignment is satisfactory. The signal characte ristics are unremarkable. Cord: There is again seen a a central cavitary lesion in the thoracic spinal cord extending from T2 t hrough T6. It is unchanged in appearance compared to the prior examination. No abnormal enhancement is seen. The remainder of the spinal cord is unremarkable. Discs: No disc herniation or bulge is present. Soft tissues: Normal. There is no evidence of suspicious enhancement. IMPRESSION: 1. Stable thoracic spinal cord syrinx. 2. No focal disc herniation, central spinal canal or neural foraminal stenosis is seen in the thoraci c spine. 3. No enhancing lesions are identified. DATA REPOSITORY:
--- OUTSIDE RECORDS SUMMARY | 2024-06-17 14:47 | XMS_ITS | Encounter Summary ---
Author Organization [facility] Address [facility] [place] [address] Care Team Providers Care Farm Operator Name Role Phone Karie Lindsey APRN Primary Care Provider + [phone] Encounter Details Date Type Department Care Team (Late st Contact Info) Description 04/29/2024 Ancillary Procedure Radiology Library at [facility] [place] [address] Karie Lindsey, [address] [place] [address] Social History Tobacco Use Types Packs/Day Years [...] Procedure Name Priority Date/Time Associated Diagnosis Comments FILM LIBRARY STORAGE ONLY MR SPINE Routine 04/29/2024 12:00 AM EDT documented in this encounter Results * Film Library- Storage Only MR Spine (04/29/2024 12:00 AM EDT) Narrative RAYMOND - 06/09/2024 5:15 PM EST This exam is auto-finalizing. It's purpose is for storage only. Karie Lindsey APRN IMG FILM LIBRARY ORD ERABLES TRACI [place] documented in this encounter Visit Diagnoses Not on filedocumented in this encounter Care Teams Farm Operator Relationship Specialty Start Date End Date Karie Lindsey, SKATESMAN [address] [place] [address] PCP - General Internal Medicine 04/02/24 documented as of this encounter
--- OUTSIDE RECORDS SUMMARY | 2024-06-17 14:47 | XMS_ITS | Encounter Summary ---
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, LEFT ARM PAIN Karie Lindsey APRN [address] [place] [address] [facility] Neurology [address] [place] [phone] Referral ID Status Reason Start Date Expiration Date V isits Requested Visits Authorized [id number] Open Consult, Test & Treat PCP Updated and/or Approved 03/15/2024 03/15/2025 6 6 Encounter Details Date Type Department Care Team (Late st Contact Info) Description 04/02/2024 Transcribe Orders eDH Incoming Referrals [phone] Karie Lindsey APRN [address] [place], [place] [id number] Left arm pain Social History Tobacco Use [...] limb documented in this encounter Care Teams Extruder Operator Relationship Specialty Start Date End Date Karie Lindsey APRN [address] [place] [address] PCP - General Internal Medicine 04/02/24 documented as of this encounter
--- OUTSIDE RECORDS SUMMARY | 2024-06-17 14:47 | XMS_ITS | Encounter Summary ---
Author Organization [facility] [place] [address] Care Team Providers Care Investigation Division Lieutenant Name Role Phone Felisha Juan APRN Primary Care Provider + [phone] Encounter Details Date Type Department Care Team (Late st Contact Info) Description 01/07/2022 Telephone Cardiac Rehab [facility] [place] [address] Nicole Walters RN Social History Tobacco Use [...] PM EDT Cardiac rehab- Patient discharged from [facility] prior to our team meeting her. She is s/p STEMI, PCI. I called her today and confirmed cardiac rehab referral to [facility]. Will send along her heart diagram, home walk program and brochure. documented in this encounter Plan of Treatment Not on file documented as of this encounter Visit Diagnoses Not on filedocumented in this encounter Care Teams Investigation Division Lieutenant Relationship Specialty Start Date End Date Felisha Juan APRN [address] [place] [address] PCP - General Family Medicine 10/29/15 01/29/22 documented as of this encounter
--- OUTSIDE RECORDS SUMMARY | 2024-06-17 14:47 | XMS_ITS | Encounter Summary ---
Author Organization [facility] [place] [address] Care Team Providers Care Deputy Sheriff Generalist/Bailiff Name Role Phone Karie Lindsey APRN Primary Care Provider [phone] Reason for Referral * Consultation (Routine) - Authorized Specialty Diagnoses / Procedures Referred By Chip sebastian Referred To Contact Endocrinology Diagnoses Type 1 diabetes mellitus with hyperglycemia Type 1 diabetes mellitus with diabetic polyneuropathy Diabetic ketoacidosis without coma associated with type 2 diabetes mellitus POORLY CONTROLLED DIABETES, RECENT IN PT ADMISSION FOR DKA Fe Lousi, DEMETRIS [address] [place] [address] [facility] Endocrinology [address] [place] [phone] Referral ID Status Reason Start Date Expiration Date Visits Requested Visits Authorized [id number] Authorized Consult, Test & Treat PCP Updated and/or Approved 03/24/2024 03/24/2025 6 6 Encounter Details Date Type Department Care Team (Latest Contact Info) Description 04/11/2024 Transcribe Orders eDH Incoming Referrals [phone] Karie Lindsey APRN [address] [place], [place] [id number] Type 1 diabetes mellitus with hyperglycemia; Type [...] mellitus documented in this encounter Care Teams Deputy Sheriff Generalist/Bailiff Relationship Specialty Start Date End Date Karie Lindsey APRN [address] [place] [address] PCP - General Internal Medicine 04/02/24 documented as of this encounter
--- OUTSIDE RECORDS SUMMARY | 2024-06-17 14:47 | XMS_ITS | Encounter Summary ---
[place] [address] Care Team Providers Care Welding Machine Operator Electron Beam Name Role Phone Karie Lindsey APRN Primary Care Provider [phone] Reason for Referral * Consultation (Routine) - Authorized Specialty Diagnoses / Procedures Referred By Chip sebastian Referred To Contact Neurosurgery Diagnoses Syringomyelia and syringobulbia Karie Lindsey APRN [address] [place] [address] [facility] Neurosurgery [address] [place] [phone] Referral ID Status Reason Start Date Expiration Date Visits Requested Visits Authorized [id number] Authorized Consult, Test & Treat PCP Updated and/or Approved 05/10/2024 05/10/2025 6 6 Encounter Details Date Type Department Care Team (Latest Contact Info) Description 06/02/2024 Transcribe Orders eDH Incoming Referrals [phone] Karie Lindsey MANAGER RESORT [address] [place], [place] [id number] Syringomyelia and syringobulbia Social History Tobacco Use Types Packs/Day Years [...] Associated Diagnoses Orde r Schedule Referral to Spine Center Outpatient Referral Routine Syringomyelia and syringobulbia Ordered: 06/02/2024 documented as of this encounter Visit Diagnoses Diagnosis Syringomyelia and syringobulbia documented in this encounter Care Teams Welding Machine Operator Electron Beam Relationship Specialty Start Date End Date Karie Lindsey, DEMETRIS [address] [place] [address] PCP - General Internal Medicine 04/02/24 documented as of this encounter
--- OUTSIDE RECORDS SUMMARY | 2024-06-17 14:47 | XMS_ITS | Encounter Summary ---
Author Organization [facility] Address [facility] [place] [address] Care Team Providers Care Mixer Operator Name Role Phone Zain Jose DWAYNE Primary Care Provider [phone] Encounter Details Date Type Department Care Team (Late st Contact Info) Description 04/01/2024 Ancillary Procedure Radiology Library at [facility] [place] [address] Karie Lindsey APRN [address] [place], [place] [id number] Social History Tobacco Use Types Packs/Day Years [...] FILM LIBRARY STORAGE ONLY MR SPINE Routine 04/01/2024 12:00 AM EDT documented in this encounter Results * Film Library- Storage Only MR Spine (04/01/2024 12:00 AM EDT) Narrative RAYMOND - 06/09/2024 5:15 PM EST This exam is auto-finalizing. It's purpose is for storage only. Karie Lindsey APRN IMG FILM LIBRARY ORD ERABLES [place] documented in this encounter Visit Diagnoses Not on filedocumented in this encounter Care Teams Mixer Operator Relationship Specialty Start Date End Date Jose Pittman PA [address] [facility] [address] [place] [address] PCP - General Internal Medicine 01/30/22 04/01/24 documented as of this encounter
--- OUTSIDE RECORDS SUMMARY | 2024-06-17 14:47 | XMS_ITS | Encounter Summary ---
Author Organization [facility] Address [facility] [place] [address] Care Team Providers Care Administrative Clerk Name Role Phone Felisha Juan APRN Primary Care Provider + [phone] Encounter Details Date Type Department Care Team (Late st Contact Info) Description 01/12/2022 Telephone Cardiology at [address] [place] [phone] Irving Alexander MD [facility] [place] [address] Social History Tobacco Use Types Packs/Day Years [...] the original note were not included. 01/12/2022 Kialey Hernandez Initial Contact Date: 01/12/2022 Initial contact time: 8:44 PM Referring Provider: Dr. Wilcox Patient Location: [facility] Presenting Symptoms per OSH: Kailey Hernandez is a 46 y.o. 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 She presented recently to [facility] with inferior STEMI and is now s/p PCI with TRACIE x2 to RCA. Discharged on 01/06/22. Presents to [facility] with fatigue. - She feels fatigue and [...] any acute changes due to her recent UT. She may have some side effects from [...] on filedocumented in this encounter Care Teams Administrative Clerk Relationship Specialty Start Date End Date Felisha Juan, DEMETRIS [address] [place] [address] PCP - General Family Medicine 10/29/15 01/29/22 documented as of this encounter
--- OUTSIDE RECORDS SUMMARY | 2024-06-17 14:47 | XMS_ITS | Encounter Summary ---
Author Organization [facility] Address [facility] [place] [address] Care Team Providers Care Benzene Washer Operator Name Role Phone Felisha Juan APRN Primary Care Provider + [phone] Encounter Details Date Type Department Care Team (Late st Contact Info) Description 01/12/2022 External Results Administration [facility] [place] [address] Social History Tobacco Use Types Packs/Day Years [...] on filedocumented in this encounter Care Teams Benzene Washer Operator Relationship Specialty Start Date End Date Felisha Juan APRN [address] [place] [address] PCP - General Family Medicine 10/29/15 01/29/22 documented as of this encounter
--- OUTSIDE RECORDS SUMMARY | 2024-06-17 14:47 | XMS_ITS | Encounter Summary ---
Author Organization [facility] Address [facility] [place] [address] Care Team Providers Care Chair Inspector Name Role Phone Karie Lindsey APRN Primary Care Provider + [phone] Encounter Details Date Type Department Care Team ([facility] st Contact Info) Description 05/27/2024 Ancillary Procedure Radiology [facility] at [facility] [place] [id number] Karie Lindsey APRN [address] [place] [address] Social History Tobacco Use Types [...] Associated Diagnosis Comments FILM LIBRARY STORAGE ONLY CT HEAD AND SPINE Routine 05/27/2024 12:00 AM EDT documented in this encounter Results * Film Library- Storage Only CT Head And Spine (05/27/2024 12:00 AM EDT) Narrative RAYMOND - 06/09/2024 5:16 PM EST This exam is auto-finalizing. It's purpose is for storage only. Karie Lindsey APRN IMG FILM LIBRARY ORD ERABLES [place] documented in this encounter Visit Diagnoses Not on filedocumented in this encounter Care Teams Chair Inspector Relationship Specialty Start Date End Date Karie Lindsey APRN [address] [place] [address] PCP - General Internal Medicine 04/02/24 documented as of this encounter
--- OUTSIDE RECORDS SUMMARY | 2024-06-17 14:47 | XMS_ITS | Data Portability ---
Author Organization [place] [facility] [place] [address] Care Team Providers Care Laborer Airport Maintenance Name Role Phone NAVIN PITTMAN Primary Care Provider ROCK RAMIREZ Debridging Machine Operator [facility] ENDOCRIN[facility] Endocrinologis t [facility] PODIATRY Bisque Cleaner MAXIMILIANO SADE CHRONIC ASSOCIATE DOCTOR Cotton Picking Machine Operator Assessment Encounter Date Assessment Date Assessment LastModified by Organization Details LastModified Time 09/25/2023 09/25/2023 Kailey's chronic medical issues appear stable. Unfortunately we are unable to download her CGM data today. We will try to get this next week. No changes to medication management were made today. She has cardiology follow-up this summer. She has been referred to [facility] ENT for consideration of left ear [...] [address] [facility], [address], [place], [address], 11:46:21 metoprolol succinate ER 25 mg tablet,exte nded release 24 hr 2023 024 [address] [facility], [address] [place], [address], 13:59:01 Patient TargetsNo targets recorded. Patient Instructions Encounter Date Encounter Id Patient Instructions Last Modified By Organization Details Last Modified Time 09/25/2023 [id number] Kailey Shanks I will get in touch with Lucia so she can download your blood sugars next week. [email or web address] Not available 09/25/2023 10:01:34 12/22/2023 [id number] Kailey - slowly titrate your basaglar by [...] ser 342 mg/dL 74-106 high Not Available [facility] [address], [place], [address], 03/04/2024 03:12:18 06/11/2006/11/2023 creat inine , urine [...] 10_3/ uL 4.4-10 .8 normal Not Available [address] [place], [address] 07/05/2023 12:04:31 07/05/20 23 07/05/2023 COMPL ETE BLOOD COUNT W/DIF F RBC 4.52 10_6/ uL 3.93-5 .22 normal Not Available [address] [place], [address] 07/05/2023 12:04:31 07/05/20 23 07/05/2023 COMPL ETE BLOOD COUNT W/DIF F HGB 13.9 g/dL 11.2-1 5.7 normal Not Available [address] [place], [address] 07/05/2023 12:04:31 07/05/20 23 07/05/2023 COMPL ETE BLOOD COUNT W/DIF F HCT 40.3 % 36.0-4 6.0 normal Not Available [address] [place], [address] 07/05/2023 12:04:31 07/05/20 23 07/05/2023 COMPL ETE BLOOD COUNT W/DIF F MCV 89 fL 80-95 normal Not Available [address] [place], [address] 07/05/2023 12:04:31 07/05/20 23 07/05/2023 COMPL ETE BLOOD COUNT W/DIF F MCH 30.8 pg 27.0-3 3.0 normal Not Available [address] [place], [address] 07/05/2023 12:04:31 07/05/20 23 07/05/2023 COMPL ETE BLOOD COUNT W/DIF F MCHC 34.5 % 32.0-3 6.0 normal Not Available [address] [place], [address] 07/05/2023 12:04:31 07/05/20 23 07/05/2023 COMPL ETE BLOOD COUNT W/DIF F RDW 11.9 % 11.7-1 4.6 normal Not Available [address] [place], [address] 07/05/2023 12:04:31 07/05/20 23 07/05/2023 COMPL ETE BLOOD COUNT W/DIF F platelet count 204 10_3/ uL 130-40 0 normal Not Available [address] [place], [address] 07/05/2023 12:04:31 07/05/20 23 07/05/2023 COMPL ETE BLOOD COUNT W/DIF F MPV 9.6 fL 8.0-11 .0 normal Not Available [address] [place], [address] 07/05/2023 12:04:31 07/05/20 23 07/05/2023 COMPL ETE BLOOD COUNT W/DIF F neutrophils % 54.7 Not Available [address] [place], [address] 07/05/2023 12:04:31 07/05/20 23 07/05/2023 COMPL ETE BLOOD COUNT W/DIF F lymphocytes % 33.7 Not Available [address] [place], [address] 07/05/2023 12:04:31 07/05/20 23 07/05/2023 COMPL ETE BLOOD COUNT W/DIF F monocytes % 9.3 Not Available [address] [place], [address] 07/05/2023 12:04:31 07/05/20 23 07/05/2023 COMPL ETE BLOOD COUNT W/DIF F eosinophils % 1.5 Not Available [address] [place], [address] 07/05/2023 12:04:31 07/05/20 23 07/05/2023 COMPL ETE BLOOD COUNT W/DIF F basophils % 0.5 Not Available [address] [place], [address] 07/05/2023 12:04:31 07/05/20 23 07/05/2023 COMPL ETE BLOOD COUNT W/DIF F immature grans % 0.3 Not Available [address] [place], [address] 07/05/2023 12:04:31 07/05/20 23 07/05/2023 COMPL ETE BLOOD COUNT W/DIF F nucleated RBC 0.0 % 0.0-0. 3 normal Not Available [address] [place], [address] 07/05/2023 12:04:31 07/05/20 23 07/05/2023 COMPL ETE BLOOD COUNT W/DIF F absolute neutrophil count 3.53 10_3/ uL 1.2-6. 7 normal Not Available [address] [place], [address] 07/05/2023 12:04:31 07/05/20 23 07/05/2023 COMPL ETE BLOOD COUNT W/DIF F absolute lymphocyte count 2.18 10_3/ uL 1.2-3. 4 normal Not Available [address] [place], [address] 07/05/2023 12:04:31 07/05/20 23 07/05/2023 COMPL ETE BLOOD COUNT W/DIF F absolute monocyte count 0.60 10_3/ uL 0.1-0. 8 normal Not Available [address] [place], [address] 07/05/2023 12:04:31 07/05/20 23 07/05/2023 COMPL ETE BLOOD COUNT W/DIF F absolute eosinophil count 0.10 10_3/ uL 0.0-0. 7 normal Not Available [address] [place], [address] 07/05/2023 12:04:31 07/05/20 23 07/05/2023 COMPL ETE BLOOD COUNT W/DIF F absolute basophil count 0.03 10_3/ uL 0.0-0. 2 normal Not Available [address] [place], [address] 07/05/2023 12:04:31 07/05/20 23 07/05/2023 NGOZI IA ammonia < 10 umol/ L 11-32 low Not Available [address] [place], [address] 07/05/2023 12:13:31 07/05/20 23 07/05/2023 PROTH ROMBI N TIME prothrombin time 10.6 sec 9.1-11 .1 normal Not Available [address] [place], [address] 07/05/2023 12:39:32 07/05/20 23 07/05/2023 PROTH ROMBI N TIME INR 1.1 0.9-1. 1 normal Recom celia d INR thera peuti c range s for orall y admin ister ed drugs are as follo ws: -Barry dard Inten sity 2.0 to 3.0 -High er Inten sity 3.0 to 4.5 Not Available [address] [place], [address] 07/05/2023 12:39:32 07/05/20 23 07/05/2023 D-DIM ER D-dimer 767 NG/ml feu <500 high *Lite ratur e suppo rts the exclu marysol of DVT and/o r PE with a resul t less than 500 ng/ml FEU with this metho d.* Not Available [address] [place], [address] 07/05/2023 12:39:32 07/05/20 23 07/05/2023 COMPR EHENS JES METAB OLIC PANEL calcium 9.2 mg/dL 8.5-10 .1 normal Not Available [address] [place], [address] 07/05/2023 12:41:33 07/05/20 23 07/05/2023 COMPR EHENS JES METAB OLIC PANEL glucose 289 mg/dL 74-106 high Not Available Kalpesh casillas [address] [place], [address] 07/05/2023 12:41:33 07/05/20 23 07/05/2023 COMPR EHENS JES METAB OLIC PANEL BUN 16 mg/dL 7-18 normal Not Available Kalpesh casillas [address] [place], [address] 07/05/2023 12:41:33 07/05/20 23 07/05/2023 COMPR EHENS JES METAB OLIC PANEL creatinine 0.9 mg/dL 0.55-1 .02 normal Not Available [address] [place], [address] 07/05/2023 12:41:33 07/05/20 23 07/05/2023 COMPR EHENS [...] young er-ag ed adult s. Not Available [address] [place], [address] 07/05/2023 12:41:33 07/05/20 23 07/05/2023 COMPR EHENS JES METAB OLIC PANEL total protein 7.6 g/dL 6.4-8. 2 normal Not Available [address] [place], [address] 07/05/2023 12:41:33 07/05/20 23 07/05/2023 COMPR EHENS JES METAB OLIC PANEL albumin 3.7 g/dL 3.4-5. 0 normal Not Available [address] [place], [address] 07/05/2023 12:41:33 07/05/20 23 07/05/2023 COMPR EHENS JES METAB OLIC PANEL bilirubin, total 0.5 mg/dL 0.2-1. 0 normal Not Available [address] [place], [address] 07/05/2023 12:41:33 07/05/20 23 07/05/2023 COMPR EHENS JES METAB OLIC PANEL alk phos 109 U/L 46-116 normal Not Available [address] [place], [address] 07/05/2023 12:41:33 07/05/20 23 07/05/2023 COMPR EHENS JES METAB OLIC PANEL sodium 135 mmol/ L 136-14 5 low Not Available [address] [place], [address] 07/05/2023 12:41:33 07/05/20 23 07/05/2023 COMPR EHENS JES METAB OLIC PANEL potassium 4.8 mmol/ L 3.5-5. 1 normal Not Available [address] [place], [address] 07/05/2023 12:41:33 07/05/20 23 07/05/2023 COMPR EHENS JES METAB OLIC PANEL chloride 100 mmol/ L 98-107 normal Not Available [address] [place], [address] 07/05/2023 12:41:33 07/05/20 23 07/05/2023 COMPR EHENS JES METAB OLIC PANEL CO2 31.1 mmol/ L 21.0-3 2.0 normal Not Available [address] [place], [address] 07/05/2023 12:41:33 07/05/2007/05/2023 COMPR EHENS JES METAB OLIC PANEL anion gap 3.9 mmol/ L 3-11 normal Not Available [address] [place], [address] 07/05/2023 12:41:33 07/05/20 23 07/05/2023 COMPR EHENS JES METAB OLIC PANEL AST 34 U/L 15-37 normal Not Available Kalpesh [address] [place], [address] 07/05/2023 12:41:33 07/05/2007/05/2023 COMPR EHENS JES METAB OLIC PANEL ALT 51 U/L 14-59 normal Not Available Kalpesh [address] [place], [address] 07/05/2023 12:41:33 07/05/2007/05/2023 ETHYL ALCOH OL ethyl alcohol < 3.0 mg/dL <10 ETOH Refer ence Range = <10 mg/dL Legal Limit of Intox icati on is 80 mg/dL This test is inten ded only for Medic al purpo ses. Divid e resul t by 1000 to conve rt to %(w/v ) Not Available [address] [place], [address] 07/05/2023 12:41:34 07/05/20 23 07/05/2023 HCG QUANT [...] Month s 10,00 0-100 ,000 Not Available [address] [place], [address] 07/05/2023 12:41:34 07/05/20 23 07/05/2023 MAGNE SIUM magnesium 2.1 mg/dL 1.8-2. 4 normal Not Available [address] [place], [address] 07/05/2023 12:41:34 07/05/20 23 07/05/2023 TSH (W/RE F FT4) TSH (w/ref FT4) 0.80 uIU/m L 0.36-3 .74 normal NOTE: Supra -phys iolog ic doses of Bioti n(B7) may cause false negat jes resul ts. Not Available [address] [place], [address] 07/05/2023 12:41:35 07/05/20 23 07/05/2023 CARDI AC TROPO KANWAL I cardiac troponin I < 50 NG/L <or=60 Not Available [address] [place], [address] 07/05/2023 12:41:35 07/05/20 23 07/05/2023 URINA LYSIS color Yellow yellow Not Available Kalpesh casillas [address] [place], [address] 07/05/2023 14:53:39 07/05/20 23 07/05/2023 URINA LYSIS clarity Clear clear Not Available Kalpesh casillas [address] [place], [address] 07/05/2023 14:53:39 07/05/20 23 07/05/2023 URINA LYSIS specific gravity 1.015 1.005- 1.025 normal Not Available [address] [place], [address] 07/05/2023 14:53:39 07/05/20 23 07/05/2023 URINA LYSIS pH 7.5 5-8 normal Not Available Kalpesh casillas [address] [place], [address] 07/05/2023 14:53:39 07/05/20 23 07/05/2023 URINA LYSIS leukocyte esterase Trace negati ve abnormal Not Available [address] [place], [address] 07/05/2023 14:53:39 07/05/20 23 07/05/2023 URINA LYSIS nitrite Negati ve negati ve Not Available [address] [place], [address] 07/05/2023 14:53:39 07/05/20 23 07/05/2023 URINA LYSIS protein Negati ve mg/dL negati ve Not Available [address] [place], [address] 07/05/2023 14:53:39 07/05/20 23 07/05/2023 URINA LYSIS glucose 250 mg/dL negati ve abnormal Not Available [address] [place], [address] 07/05/2023 14:53:39 07/05/20 23 07/05/2023 URINA LYSIS ketones Negati ve mg/dL negati ve Not Available [address] [place], [address] 07/05/2023 14:53:39 07/05/20 23 07/05/2023 URINA LYSIS urobilinogen 0.2 mg/dL up to 0.2 Not Available [address] [place], [address] 07/05/2023 14:53:39 07/05/20 23 07/05/2023 URINA LYSIS bilirubin Negati ve negati ve Not Available [address] [place], [address] 07/05/2023 14:53:39 07/05/20 23 07/05/2023 URINA LYSIS blood Negati ve negati ve Not Available [address] [place], [address] 07/05/2023 14:53:39 07/05/20 23 07/05/2023 CARDI AC TROPO KANWAL I cardiac troponin I < 50 NG/L <or=60 Not Available [address] [place], [address] 07/05/2023 15:02:41 07/05/20 23 07/05/2023 URINA LYSIS color Yellow yellow Not Available Kalpesh casillas [address] [place], [address] 07/05/2023 15:03:40 07/05/20 23 07/05/2023 URINA LYSIS clarity Clear clear Not Available Kalpesh casillas [address] [place], [address] 07/05/2023 15:03:40 07/05/20 23 07/05/2023 URINA LYSIS specific gravity 1.015 1.005- 1.025 normal Not Available [address] [place], [address] 07/05/2023 15:03:40 07/05/20 23 07/05/2023 URINA LYSIS pH 7.5 5-8 normal Not Available Kalpesh casillas [address] [place], [address] 07/05/2023 15:03:40 07/05/20 23 07/05/2023 URINA LYSIS leukocyte esterase Trace negati ve abnormal Not Available [address] [place], [address] 07/05/2023 15:03:40 07/05/20 23 07/05/2023 URINA LYSIS nitrite Negati ve negati ve Not Available [address] [place], [address] 07/05/2023 15:03:40 07/05/20 23 07/05/2023 URINA LYSIS protein Negati ve mg/dL negati ve Not Available [address] [place], [address] 07/05/2023 15:03:40 07/05/20 07/05/2023 URINA LYSIS glucose 250 mg/dL negati ve abnormal Not Available [address] [place], [address] 07/05/2023 15:03:40 07/05/20 23 07/05/2023 URINA LYSIS ketones Negati ve mg/dL negati ve Not Available [address] [place], [address] 07/05/2023 15:03:40 07/05/20 23 07/05/2023 URINA LYSIS urobilinogen 0.2 mg/dL up to 0.2 Not Available [address] [place], [address] 07/05/2023 15:03:40 07/05/20 23 07/05/2023 URINA LYSIS bilirubin Negati ve negati ve Not Available [address] [place], [address] 07/05/2023 15:03:40 07/05/20 23 07/05/2023 URINA LYSIS blood Negati ve negati ve Not Available [address] [place], [address] 07/05/2023 15:03:40 07/05/20 23 07/05/2023 MICRO SCOPI C FINDI NGS WBC 0-2 hpf 0-5 Not Available Kalpesh casillas [address] [place], [address] 07/05/2023 15:03:40 07/05/20 23 07/05/2023 MICRO SCOPI C FINDI NGS RBC Negati ve hpf 0-2 Not Available Bettie suárez [address] [place], [address] 07/05/2023 15:03:40 07/05/20 23 07/05/2023 MICRO SCOPI C FINDI NGS epithelial cells Rare hpf negati ve Not Available [address] [place], [address] 07/05/2023 15:03:40 07/05/20 23 07/05/2023 MICRO SCOPI C FINDI NGS bacteria Rare hpf negati ve Not Available [address] [place], [address] 07/05/2023 15:03:40 07/05/20 23 07/05/2023 MICRO SCOPI C FINDI NGS crystals Negati ve hpf negati ve Not Available [address] [place], [address] 07/05/2023 15:03:40 07/05/20 23 07/05/2023 MICRO SCOPI C FINDI NGS mucus Negati ve negati ve Not Available [address] [place], [address] 07/05/2023 15:03:40 07/05/20 23 07/05/2023 MICRO SCOPI C FINDI NGS casts Negati ve lpf negati ve Not Available [address] [place], [address] 07/05/2023 15:03:40 07/05/20 23 07/05/2023 MICRO SCOPI C FINDI NGS C S indicated? Yes Not Available [address] [place], [address] 07/05/2023 15:03:40 07/05/20 23 07/06/2023 URINE CULTU RE urine culture Urine Cultu re Proba ble conta minat ed colle ction APPEA IVETTE Mixed Gram Posit jes Alta COLON Y COUNT Not Available [address] [place], [address] 07/06/2023 07:38:39 07/05/20 23 07/06/2023 URINE CULTU RE urine culture colon ies/m L 10,00 0 - 50,00 0 Day 1 Resul t ISOLA ANETA BELOW O:GPF M (ORGA NISM ID: 1.1) - GRAM POSIT JES ALTA ,MIXE D Urine Cultu re (ORGA NISM ID: 1.1) - COLON Y COUNT (ORGA NISM ID: 1.1) - 10,00 0 - 50,00 0 Not Available [address] [place], [address] 07/06/2023 07:38:39 07/05/20 23 07/07/2023 URINE CULTU RE urine culture Urine Cultu re Proba ble conta minat ed colle ction APPEA IVETTE Mixed Gram Posit jes Alta APPEA IVETTE Mixed Gram Posit jes Alta COLON Y COUNT Not Available [address] [place], [address] 07/07/2023 07:47:12 07/05/20 23 07/07/2023 URINE CULTU [...] 10,00 0 - 50,00 0 Not Available [address] [place], [address] 07/07/2023 07:47:12 08/21/19 24 08/21/2023 COMPL ETE BLOOD COUNT W/DIF F WBC 7.04 10_3/ uL 4.4-10 .8 normal Not Available [address] [place], [address] 08/21/2023 22:28:59 08/21/19 24 08/21/2023 COMPL ETE BLOOD COUNT W/DIF F RBC 4.44 10_6/ uL 3.93-5 .22 normal Not Available [address] [place], [address] 08/21/2023 22:28:59 08/21/19 24 08/21/2023 COMPL ETE BLOOD COUNT W/DIF F HGB 13.6 g/dL 11.2-1 5.7 normal Not Available [address] [place], [address] 08/21/2023 22:28:59 08/21/19 24 08/21/2023 COMPL ETE BLOOD COUNT W/DIF F HCT 39.8 % 36.0-4 6.0 normal Not Available [address] [place], [address] 08/21/2023 22:28:59 08/21/19 24 08/21/2023 COMPL ETE BLOOD COUNT W/DIF F MCV 90 fL 80-95 normal Not Available Kalpesh [address] [place], [address] 08/21/2023 22:28:59 08/21/19 24 08/21/2023 COMPL ETE BLOOD COUNT W/DIF F MCH 30.6 pg 27.0-3 3.0 normal Not Available [address] [place], [address] 08/21/2023 22:28:59 08/21/19 24 08/21/2023 COMPL ETE BLOOD COUNT W/DIF F MCHC 34.2 % 32.0-3 6.0 normal Not Available [address] [place], [address] 08/21/2023 22:28:59 08/21/19 24 08/21/2023 COMPL ETE BLOOD COUNT W/DIF F RDW 12.3 % 11.7-1 4.6 normal Not Available [address] [place], [address] 08/21/2023 22:28:59 08/21/19 24 08/21/2023 COMPL ETE BLOOD COUNT W/DIF F platelet count 181 10_3/ uL 130-40 0 normal Not Available [address] [place], [address] 08/21/2023 22:28:59 08/21/19 24 08/21/2023 COMPL ETE BLOOD COUNT W/DIF F MPV 9.5 fL 8.0-11 .0 normal Not Available [address] [place], [address] 08/21/2023 22:28:59 08/21/19 24 08/21/2023 COMPL ETE BLOOD COUNT W/DIF F neutrophils % 77.5 Not Available Hendersondagoberto iglesias [address] [place], [address] 08/21/2023 22:28:59 08/21/19 24 08/21/2023 COMPL ETE BLOOD COUNT W/DIF F lymphocytes % 15.2 Not Available Kole iglesias [address] [place], [address] 08/21/2023 22:28:59 08/21/19 24 08/21/2023 COMPL ETE BLOOD COUNT W/DIF F monocytes % 6.1 Not Available [address] [place], [address] 08/21/2023 22:28:59 08/21/19 24 08/21/2023 COMPL ETE BLOOD COUNT W/DIF F eosinophils % 0.4 Not Available [address] [place], [address] 08/21/2023 22:28:59 08/21/19 24 08/21/2023 COMPL ETE BLOOD COUNT W/DIF F basophils % 0.4 Not Available [address] [place], [address] 08/21/2023 22:28:59 08/21/19 24 08/21/2023 COMPL ETE BLOOD COUNT W/DIF F immature grans % 0.4 Not Available [address] [place], [address] 08/21/2023 22:28:59 08/21/19 24 08/21/2023 COMPL ETE BLOOD COUNT W/DIF F nucleated RBC 0.0 % 0.0-0. 3 normal Not Available [address] [place], [address] 08/21/2023 22:28:59 08/21/19 24 08/21/2023 COMPL ETE BLOOD COUNT W/DIF F absolute neutrophil count 5.45 10_3/ uL 1.2-6. 7 normal Not Available [address] [place], [address] 08/21/2023 22:28:59 08/21/19 24 08/21/2023 COMPL ETE BLOOD COUNT W/DIF F absolute lymphocyte count 1.07 10_3/ uL 1.2-3. 4 low Not Available [address] [place], [address] 08/21/2023 22:28:59 08/21/19 24 08/21/2023 COMPL ETE BLOOD COUNT W/DIF F absolute monocyte count 0.43 10_3/ uL 0.1-0. 8 normal Not Available [address] [place], [address] 08/21/2023 22:28:59 08/21/19 24 08/21/2023 COMPL ETE BLOOD COUNT W/DIF F absolute eosinophil count 0.03 10_3/ uL 0.0-0. 7 normal Not Available [address] [place], [address] 08/21/2023 22:28:59 08/21/19 24 08/21/2023 COMPL ETE BLOOD COUNT W/DIF F absolute basophil count 0.03 10_3/ uL 0.0-0. 2 normal Not Available [address] [place], [address] 08/21/2023 22:28:59 08/21/19 24 08/21/2023 COMPR EHENS JES METAB OLIC PANEL calcium 9.8 mg/dL 8.5-10 .1 normal Not Available [address] [place], [address] 08/21/2023 22:58:02 08/21/19 24 08/21/2023 COMPR EHENS JES METAB OLIC PANEL glucose 207 mg/dL 74-106 high Not Available Kalpesh casillas [address] [place], [address] 08/21/2023 22:58:02 08/21/19 24 08/21/2023 COMPR EHENS JES METAB OLIC PANEL BUN 17 mg/dL 7-18 normal Not Available Kalpesh casillas [address] [place], [address] 08/21/2023 22:58:02 08/21/19 24 08/21/2023 COMPR EHENS JES METAB OLIC PANEL creatinine 0.9 mg/dL 0.55-1 .02 normal Not Available [address] [place], [address] 08/21/2023 22:58:02 08/21/19 24 08/21/2023 COMPR EHENS [...] young er-ag ed adult s. Not Available [address] [place], [address] 08/21/2023 22:58:02 08/21/19 24 08/21/2023 COMPR EHENS JES METAB OLIC PANEL total protein 8.1 g/dL 6.4-8. 2 normal Not Available [address] [place], [address] 08/21/2023 22:58:02 08/21/19 24 08/21/2023 COMPR EHENS JES METAB OLIC PANEL albumin 4.0 g/dL 3.4-5. 0 normal Not Available [address] [place], [address] 08/21/2023 22:58:02 08/21/19 24 08/21/2023 COMPR EHENS JES METAB OLIC PANEL bilirubin, total 0.7 mg/dL 0.2-1. 0 normal Not Available [address] [place], [address] 08/21/2023 22:58:02 08/21/19 24 08/21/2023 COMPR EHENS JES METAB OLIC PANEL alk phos 104 U/L 46-116 normal Not Available [address] [place], [address] 08/21/2023 22:58:02 08/21/19 24 08/21/2023 COMPR EHENS JES METAB OLIC PANEL sodium 137 mmol/ L 136-14 5 normal Not Available [address] [place], [address] 08/21/2023 22:58:02 08/21/19 24 08/21/2023 COMPR EHENS JES METAB OLIC PANEL potassium 4.3 mmol/ L 3.5-5. 1 normal Not Available [address] [place], [address] 08/21/2023 22:58:02 08/21/19 24 08/21/2023 COMPR EHENS JES METAB OLIC PANEL chloride 100 mmol/ L 98-107 normal Not Available [address] [place], [address] 08/21/2023 22:58:02 08/21/19 24 08/21/2023 COMPR EHENS JES METAB OLIC PANEL CO2 30.1 mmol/ L 21.0-3 2.0 normal Not Available [address] [place], [address] 08/21/2023 22:58:02 08/21/19 24 08/21/2023 COMPR EHENS JES METAB OLIC PANEL anion gap 6.9 mmol/ L 3-11 normal Not Available [address] [place], [address] 08/21/2023 22:58:02 08/21/19 24 08/21/2023 COMPR EHENS JES METAB OLIC PANEL AST 32 U/L 15-37 normal Not Available Kalpesh [address] [place], [address] 08/21/2023 22:58:02 08/21/19 24 08/21/2023 COMPR EHENS JES METAB OLIC PANEL ALT 47 U/L 14-59 normal Not Available Kalpesh casillas [address] [place], [address] 08/21/2023 22:58:02 08/21/1908/21/2023 ETHYL ALCOH OL ethyl [...] conve rt to %(w/v ) Not Available [address] [place], [address] 08/21/2023 22:58:03 08/21/19 24 08/21/2023 MAGNE SIUM magnesium 2.1 mg/dL 1.8-2. 4 normal Not Available [address] [place], [address] 08/21/2023 22:58:04 08/21/19 24 08/21/2023 CARDI AC TROPO KANWAL I cardiac troponin I < 50 NG/L < or =60 Not Available [address] [place], [address] 08/21/2023 22:58:05 08/22/19 24 08/22/2023 URINE DRUG SCREE N ([facility] ) methadone Negati ve negati ve Not Available [address] [place], [address] 08/22/2023 00:55:06 08/22/19 24 08/22/2023 URINE DRUG SCREE N ([facility] ) benzodiazepi yoselyn Negati ve negati ve Benzo diaze pines are exten sivel y metab olize d and the paren t compo und may not be detec tarsha in urine . If clini elizabeth suspi cion is high, pleas e notif y Lab for send- out testi ng. Not Available [address] [place], [address] 08/22/2023 00:55:06 08/22/19 24 08/22/2023 URINE DRUG SCREE N ([facility] ) cocaine Negati ve negati ve Not Available [address] [place], [address] 08/22/2023 00:55:06 08/22/19 24 08/22/2023 URINE DRUG SCREE N ([facility] ) amphetamines Negati ve negati ve Not Available [address] [place], [address] 08/22/2023 00:55:06 08/22/19 24 08/22/2023 URINE DRUG SCREE N ([facility] ) tetrahydroca nnabinol Positi ve negati ve abnormal Not Available [address] [place], [address] 08/22/2023 00:55:06 08/22/19 24 08/22/2023 URINE DRUG SCREE N ([facility] ) opiates Negati ve negati ve Not Available [address] [place], [address] 08/22/2023 00:55:06 08/22/19 24 08/22/2023 URINE DRUG SCREE N ([facility] ) barbiturates Negati ve negati ve Not Available [address] [place], [address] 08/22/2023 00:55:06 08/22/19 24 08/22/2023 URINE DRUG [...] tion of these resul ts. Not Available [address] [place], [address] 08/22/2023 00:55:06 12/07/19 24 12/07/2023 COMPL ETE BLOOD COUNT W/DIF F WBC 5.74 10_3/ uL 4.4-10 .8 normal Not Available [address] [place], [address] 12/07/2023 13:34:31 12/07/19 24 12/07/2023 COMPL ETE BLOOD COUNT W/DIF F RBC 4.11 10_6/ uL 3.93-5 .22 normal Not Available [address] [place], [address] 12/07/2023 13:34:31 12/07/19 24 12/07/2023 COMPL ETE BLOOD COUNT W/DIF F HGB 12.7 g/dL 11.2-1 5.7 normal Not Available [address] [place], [address] 12/07/2023 13:34:31 12/07/19 24 12/07/2023 COMPL ETE BLOOD COUNT W/DIF F HCT 37.6 % 36.0-4 6.0 normal Not Available [address] [place], [address] 12/07/2023 13:34:31 12/07/19 24 12/07/2023 COMPL ETE BLOOD COUNT W/DIF F MCV 92 fL 80-95 normal Not Available [address] [place], [address] 12/07/2023 13:34:31 12/07/19 24 12/07/2023 COMPL ETE BLOOD COUNT W/DIF F MCH 30.9 pg 27.0-3 3.0 normal Not Available [address] [place], [address] 12/07/2023 13:34:31 12/07/19 24 12/07/2023 COMPL ETE BLOOD COUNT W/DIF F MCHC 33.8 % 32.0-3 6.0 normal Not Available [address] [place], [address] 12/07/2023 13:34:31 12/07/19 24 12/07/2023 COMPL ETE BLOOD COUNT W/DIF F RDW 12.2 % 11.7-1 4.6 normal Not Available [address] [place], [address] 12/07/2023 13:34:31 12/07/19 24 12/07/2023 COMPL ETE BLOOD COUNT W/DIF F platelet count 178 10_3/ uL 130-40 0 normal Not Available [address] [place], [address] 12/07/2023 13:34:31 12/07/19 24 12/07/2023 COMPL ETE BLOOD COUNT W/DIF F MPV 9.6 fL 8.0-11 .0 normal Not Available [address] [place], [address] 12/07/2023 13:34:31 12/07/19 24 12/07/2023 COMPL ETE BLOOD COUNT W/DIF F neutrophils % 55.2 % Not Available [address] [place], [address] 12/07/2023 13:34:31 12/07/19 24 12/07/2023 COMPL ETE BLOOD COUNT W/DIF F lymphocytes % 34.0 % Not Available [address] [place], [address] 12/07/2023 13:34:31 12/07/19 24 12/07/2023 COMPL ETE BLOOD COUNT W/DIF F monocytes % 8.9 % Not Available [address] [place], [address] 12/07/2023 13:34:31 12/07/19 24 12/07/2023 COMPL ETE BLOOD COUNT W/DIF F eosinophils % 0.9 % Not Available [address] [place], [address] 12/07/2023 13:34:31 12/07/19 24 12/07/2023 COMPL ETE BLOOD COUNT W/DIF F basophils % 0.7 % Not Available [address] [place], [address] 12/07/2023 13:34:31 12/07/19 24 12/07/2023 COMPL ETE BLOOD COUNT W/DIF F immature grans % 0.3 % Not Available [address] [place], [address] 12/07/2023 13:34:31 12/07/19 24 12/07/2023 COMPL ETE BLOOD COUNT W/DIF F nucleated RBC 0.0 % 0.0-0. 3 normal Not Available [address] [place], [address] 12/07/2023 13:34:31 12/07/19 24 12/07/2023 COMPL ETE BLOOD COUNT W/DIF F absolute neutrophil count 3.17 10_3/ uL 1.2-6. 7 normal Not Available [address] [place], [address] 12/07/2023 13:34:31 12/07/19 24 12/07/2023 COMPL ETE BLOOD COUNT W/DIF F absolute lymphocyte count 1.95 10_3/ uL 1.2-3. 4 normal Not Available [address] [place], [address] 12/07/2023 13:34:31 12/07/19 24 12/07/2023 COMPL ETE BLOOD COUNT W/DIF F absolute monocyte count 0.51 10_3/ uL 0.1-0. 8 normal Not Available [address] [place], [address] 12/07/2023 13:34:31 12/07/19 24 12/07/2023 COMPL ETE BLOOD COUNT W/DIF F absolute eosinophil count 0.05 10_3/ uL 0.0-0. 7 normal Not Available [address] [place], [address] 12/07/2023 13:34:31 12/07/19 24 12/07/2023 COMPL ETE BLOOD COUNT W/DIF F absolute basophil count 0.04 10_3/ uL 0.0-0. 2 normal Not Available [address] [place], [address] 12/07/2023 13:34:31 12/07/19 24 12/07/2023 COMPR EHENS JES METAB OLIC PANEL calcium 9.1 mg/dL 8.5-10 .1 normal Not Available [address] [place], [address] 12/07/2023 13:53:40 12/07/19 24 12/07/2023 COMPR EHENS JES METAB OLIC PANEL glucose 154 mg/dL 74-106 high Not Available Kalpesh [address] [place], [address] 12/07/2023 13:53:40 12/07/19 24 12/07/2023 COMPR EHENS JES METAB OLIC PANEL BUN 21 mg/dL 7-18 high Not Available Kalpesh casillas [address] [place], [address] 12/07/2023 13:53:40 12/07/19 24 12/07/2023 COMPR EHENS JES METAB OLIC PANEL creatinine 0.9 mg/dL 0.55-1 .02 normal Not Available [address] [place], [address] 12/07/2023 13:53:40 12/07/19 24 12/07/2023 COMPR EHENS [...] young er-ag ed adult s. Not Available [address] [place], [address] 12/07/2023 13:53:40 12/07/19 24 12/07/2023 COMPR EHENS JES METAB OLIC PANEL total protein 7.1 g/dL 6.4-8. 2 normal Not Available [address] [place], [address] 12/07/2023 13:53:40 12/07/19 24 12/07/2023 COMPR EHENS JES METAB OLIC PANEL albumin 3.5 g/dL 3.4-5. 0 normal Not Available [address] [place], [address] 12/07/2023 13:53:40 12/07/19 24 12/07/2023 COMPR EHENS JES METAB OLIC PANEL bilirubin, total 0.6 mg/dL 0.2-1. 0 normal Not Available [address] [place], [address] 12/07/2023 13:53:40 12/07/19 24 12/07/2023 COMPR EHENS JES METAB OLIC PANEL alk phos 106 U/L 46-116 normal Not Available [address] [place], [address] 12/07/2023 13:53:40 12/07/19 24 12/07/2023 COMPR EHENS JES METAB OLIC PANEL sodium 139 mmol/ L 136-14 5 normal Not Available [address] [place], [address] 12/07/2023 13:53:40 12/07/19 24 12/07/2023 COMPR EHENS JES METAB OLIC PANEL potassium 4.4 mmol/ L 3.5-5. 1 normal Not Available [address] [place], [address] 12/07/2023 13:53:40 12/07/19 24 12/07/2023 COMPR EHENS JES METAB OLIC PANEL chloride 104 mmol/ L 98-107 normal Not Available [address] [place], [address] 12/07/2023 13:53:40 12/07/19 24 12/07/2023 COMPR EHENS JES METAB OLIC PANEL CO2 29.8 mmol/ L 21.0-3 2.0 normal Not Available [address] [place], [address] 12/07/2023 13:53:40 12/07/19 24 12/07/2023 COMPR EHENS JES METAB OLIC PANEL anion gap 5.2 mmol/ L 3-11 normal Not Available [address] [place], [address] 12/07/2023 13:53:40 12/07/19 24 12/07/2023 COMPR EHENS JES METAB OLIC PANEL AST 39 U/L 15-37 high Not Available [address] [place], [address] 12/07/2023 13:53:40 12/07/19 24 12/07/2023 COMPR EHENS JES METAB OLIC PANEL ALT 48 U/L 14-59 normal Not Available Kalpesh casillas [address] [place], [address] 12/07/2023 13:53:40 12/07/19 24 12/07/2023 TROPO KANWAL I troponin I < 50 NG/L < or =60 Not Available [address] [place], [address] 12/07/2023 13:53:40 12/07/19 24 12/07/2023 PROTH ROMBI N TIME prothrombin time 10.9 sec 9.1-11 .1 normal Not Available [address] [place], [address] 12/07/2023 14:14:40 12/07/19 24 12/07/2023 PROTH ROMBI N TIME INR 1.1 0.9-1. 1 normal Recom celia d INR thera peuti c range s for orall y admin ister ed drugs are as follo ws: -[place] Inten sity 2.0 to 3.0 -High er Inten sity 3.0 to 4.5 Not Available [address] [place], [address] 12/07/2023 14:14:40 12/07/19 24 12/07/2023 PTT ACTIV ATED PTT activated 23.4 sec 23.6-3 2.8 low Hepar in Thera peuti c Range for PTT = 52-84 secon ds New Hepar in Thera peuti c Range 09/08 Not Available [address] [place], [address] 12/07/2023 14:14:41 12/07/19 24 12/07/2023 TROPO KANWAL I troponin I < 50 NG/L < or =60 Not Available [address] [place], [address] 12/07/2023 16:25:17 02/15/20 24 02/15/2024 COMPL ETE BLOOD COUNT W/DIF F WBC 4.55 10_3/ uL 4.4-10 .8 normal Not Available [address] [place], [address] 02/15/2024 10:39:22 02/15/20 24 02/15/2024 COMPL ETE BLOOD COUNT W/DIF F RBC 4.67 10_6/ uL 3.93-5 .22 normal Not Available [address] [place], [address] 02/15/2024 10:39:22 02/15/20 24 02/15/2024 COMPL ETE BLOOD COUNT W/DIF F HGB 14.3 g/dL 11.2-1 5.7 normal Not Available [address] [place], [address] 02/15/2024 10:39:22 02/15/20 24 02/15/2024 COMPL ETE BLOOD COUNT W/DIF F HCT 42.4 % 36.0-4 6.0 normal Not Available [address] [place], [address] 02/15/2024 10:39:22 02/15/20 24 02/15/2024 COMPL ETE BLOOD COUNT W/DIF F MCV 91 fL 80-95 normal Not Available [address] [place], [address] 02/15/2024 10:39:22 02/15/20 24 02/15/2024 COMPL ETE BLOOD COUNT W/DIF F MCH 30.6 pg 27.0-3 3.0 normal Not Available [address] [place], [address] 02/15/2024 10:39:22 02/15/20 24 02/15/2024 COMPL ETE BLOOD COUNT W/DIF F MCHC 33.7 % 32.0-3 6.0 normal Not Available [address] [place], [address] 02/15/2024 10:39:22 02/15/20 24 02/15/2024 COMPL ETE BLOOD COUNT W/DIF F RDW 12.3 % 11.7-1 4.6 normal Not Available [address] [place], [address] 02/15/2024 10:39:22 02/15/20 24 02/15/2024 COMPL ETE BLOOD COUNT W/DIF F platelet count 189 10_3/ uL 130-40 0 normal Not Available [address] [place], [address] 02/15/2024 10:39:22 02/15/20 24 02/15/2024 COMPL ETE BLOOD COUNT W/DIF F MPV 9.8 fL 8.0-11 .0 normal Not Available [address] [place], [address] 02/15/2024 10:39:22 02/15/20 24 02/15/2024 COMPL ETE BLOOD COUNT W/DIF F neutrophils % 56.9 % Not Available [address] [place], [address] 02/15/2024 10:39:22 02/15/20 24 02/15/2024 COMPL ETE BLOOD COUNT W/DIF F lymphocytes % 33.2 % Not Available [address] [place], [address] 02/15/2024 10:39:22 02/15/20 24 02/15/2024 COMPL ETE BLOOD COUNT W/DIF F monocytes % 8.1 % Not Available [address] [place], [address] 02/15/2024 10:39:22 02/15/20 24 02/15/2024 COMPL ETE BLOOD COUNT W/DIF F eosinophils % 0.9 % Not Available [address] [place], [address] 02/15/2024 10:39:22 02/15/20 24 02/15/2024 COMPL ETE BLOOD COUNT W/DIF F basophils % 0.7 % Not Available [address] [place], [address] 02/15/2024 10:39:22 02/15/20 24 02/15/2024 COMPL ETE BLOOD COUNT W/DIF F immature grans % 0.2 % Not Available [address] [place], [address] 02/15/2024 10:39:22 02/15/20 24 02/15/2024 COMPL ETE BLOOD COUNT W/DIF F nucleated RBC 0.0 % 0.0-0. 3 normal Not Available [address] [place], [address] 02/15/2024 10:39:22 02/15/20 24 02/15/2024 COMPL ETE BLOOD COUNT W/DIF F absolute neutrophil count 2.59 10_3/ uL 1.2-6. 7 normal Not Available [address] [place], [address] 02/15/2024 10:39:22 02/15/20 24 02/15/2024 COMPL ETE BLOOD COUNT W/DIF F absolute lymphocyte count 1.51 10_3/ uL 1.2-3. 4 normal Not Available [address] [place], [address] 02/15/2024 10:39:22 02/15/20 24 02/15/2024 COMPL ETE BLOOD COUNT W/DIF F absolute monocyte count 0.37 10_3/ uL 0.1-0. 8 normal Not Available [address] [place], [address] 02/15/2024 10:39:22 02/15/20 24 02/15/2024 COMPL ETE BLOOD COUNT W/DIF F absolute eosinophil count 0.04 10_3/ uL 0.0-0. 7 normal Not Available [address] [place], [address] 02/15/2024 10:39:22 02/15/20 24 02/15/2024 COMPL ETE BLOOD COUNT W/DIF F absolute basophil count 0.03 10_3/ uL 0.0-0. 2 normal Not Available [address] [place], [address] 02/15/2024 10:39:22 02/15/20 24 02/15/2024 ESR ESR 12 mm/HR 0-20 normal Not Available [address] [place], [address] 02/15/2024 10:53:16 02/15/20 24 02/15/2024 D-DIM ER D-dimer 886 NG/ml feu <500 high *Lite ratur e suppo rts the exclu marysol of DVT and/o r PE with a resul t less than 500 ng/ml FEU with this metho d.* Not Available [address] [place], [address] 02/15/2024 11:17:25 02/15/20 24 02/15/2024 COMPR EHENS JES METAB OLIC PANEL calcium 9.4 mg/dL 8.5-10 .1 normal Not Available [address] [place], [address] 02/15/2024 11:28:26 02/15/20 24 02/15/2024 COMPR EHENS JES METAB OLIC PANEL glucose 339 mg/dL 74-106 high Not Available Kalpesh [address] [place], [address] 02/15/2024 11:28:26 02/15/20 24 02/15/2024 COMPR EHENS JES METAB OLIC PANEL BUN 15 mg/dL 7-18 normal Not Available Kalpesh [address] [facility] [place], [address] 02/15/2024 11:28:26 02/15/20 24 02/15/2024 COMPR EHENS JES METAB OLIC PANEL creatinine 0.9 mg/dL 0.55-1 .02 normal Not Available [address] [place], [address] 02/15/2024 11:28:26 02/15/20 24 02/15/2024 COMPR EHENS [...] young er-ag ed adult s. Not Available [address] [place], [address] 02/15/2024 11:28:26 02/15/20 24 02/15/2024 COMPR EHENS JES METAB OLIC PANEL total protein 8.0 g/dL 6.4-8. 2 normal Not Available [address] [place], [address] 02/15/2024 11:28:26 02/15/20 24 02/15/2024 COMPR EHENS JES METAB OLIC PANEL albumin 3.9 g/dL 3.4-5. 0 normal Not Available [address] [place], [address] 02/15/2024 11:28:26 02/15/20 24 02/15/2024 COMPR EHENS JES METAB OLIC PANEL bilirubin, total 0.77 mg/dL 0.2-1. 0 normal Not Available [address] [place], [address] 02/15/2024 11:28:26 02/15/20 24 02/15/2024 COMPR EHENS JES METAB OLIC PANEL alk phos 161 U/L 46-116 high Not Available [address] [place], [address] 02/15/2024 11:28:26 02/15/20 24 02/15/2024 COMPR EHENS JES METAB OLIC PANEL sodium 136 mmol/ L 136-14 5 normal Not Available [address] [place], [address] 02/15/2024 11:28:26 02/15/20 24 02/15/2024 COMPR EHENS JES METAB OLIC PANEL potassium 4.3 mmol/ L 3.5-5. 1 normal Not Available [address] [place], [address] 02/15/2024 11:28:26 02/15/20 24 02/15/2024 COMPR EHENS JES METAB OLIC PANEL chloride 99 mmol/ L 98-107 normal Not Available [address] [place], [address] 02/15/2024 11:28:26 02/15/20 24 02/15/2024 COMPR EHENS JES METAB OLIC PANEL CO2 30.9 mmol/ L 21.0-3 2.0 normal Not Available [address] [place], [address] 02/15/2024 11:28:26 02/15/20 24 02/15/2024 COMPR EHENS JES METAB OLIC PANEL anion gap 6.1 mmol/ L 3-11 normal Not Available [address] [place], [address] 02/15/2024 11:28:26 02/15/20 24 02/15/2024 COMPR EHENS JES METAB OLIC PANEL AST 36 U/L 15-37 normal Not Available Kalpesh [address] [place], [address] 02/15/2024 11:28:26 02/15/20 24 02/15/2024 COMPR EHENS JES METAB OLIC PANEL ALT 46 U/L 14-59 normal Not Available Kalpesh [address] [place], [address] 02/15/2024 11:28:26 02/15/20 24 02/15/2024 C-KATIE CTIVE PROTE IN C-reactive protein < 0.50 mg/dL <or=0. 5 Not Available [address] [place], [address] 02/15/2024 11:24:26 02/15/20 24 02/15/2024 C-KATIE CTIVE PROTE IN C-reactive protein < 0.50 mg/dL <or=0. 5 Not Available [address] [place], [address] 02/15/2024 11:28:27 05/30/20 24 05/30/2024 T3,FR EE T3,free 4.0 pg/mL 2.8-5. 3 Test perfo rmed or refer red by [facility] [address], [place] [address] Not Available [address] [place], [address] 05/31/2024 09:18:37 05/30/2005/30/2024 T3, TOTAL T3, total 147 NG/dL 97-169 Test perfo rmed or refer red by [facility] [address], [place] [address] Not Available [address] [place], [address] 05/31/2024 09:18:36 05/30/2005/30/2024 TSH (W/RE F FT4) TSH (w/ref FT4) 0.76 uIU/m L 0.36-3 .74 normal Not Available [address] [place], [address] 05/30/2024 11:01:13 05/30/2005/30/2024 COMPL ETE BLOOD COUNT NO DIFF WBC 5.34 10_3/ uL 4.4-10 .8 normal Not Available [address] [place], [address] 05/30/2024 10:36:14 05/30/2005/30/2024 COMPL ETE BLOOD COUNT NO DIFF RBC 3.93 10_6/ uL 3.93-5 .22 normal Not Available [address] [place], [address] 05/30/2024 10:36:14 05/30/2005/30/2024 COMPL ETE BLOOD COUNT NO DIFF HGB 12.1 g/dL 11.2-1 5.7 normal Not Available [address] [place], [address] 05/30/2024 10:36:14 05/30/2005/30/2024 COMPL ETE BLOOD COUNT NO DIFF HCT 37.0 % 36.0-4 6.0 normal Not Available [address] [place], [address] 05/30/2024 10:36:14 05/30/2005/30/2024 COMPL ETE BLOOD COUNT NO DIFF MCV 94 fL 80-95 normal Not Available Kalpesh casillas [address] [place], [address] 05/30/2024 10:36:14 05/30/20 24 05/30/2024 COMPL ETE BLOOD COUNT NO DIFF MCH 30.8 pg 27.0-3 3.0 normal Not Available [address] [place], [address] 05/30/2024 10:36:14 05/30/20 24 05/30/2024 COMPL ETE BLOOD COUNT NO DIFF MCHC 32.7 % 32.0-3 6.0 normal Not Available [address] [place], [address] 05/30/2024 10:36:14 05/30/2005/30/2024 COMPL ETE BLOOD COUNT NO DIFF RDW 12.5 % 11.7-1 4.6 normal Not Available [address] [place], [address] 05/30/2024 10:36:14 05/30/20 24 05/30/2024 COMPL ETE BLOOD COUNT NO DIFF platelet count 173 10_3/ uL 130-40 0 normal Not Available [address] [place], [address] 05/30/2024 10:36:14 05/30/2005/30/2024 COMPL ETE BLOOD COUNT NO DIFF MPV 9.3 fL 8.0-11 .0 normal Not Available [address] [place], [address] 05/30/2024 10:36:14 05/30/2005/30/2024 T3,FR EE T3,free 4.0 pg/mL 2.8-5. 3 Test perfo rmed or refer red by [facility] [address] [facility] [address] Not Available [address] [place], [address] 05/31/2024 09:18:34 05/30/2005/30/2024 T3, TOTAL T3, total 147 NG/dL 97-169 Test perfo rmed or refer red by [facility] [address] [place] [address] Not Available [address] [place], [address] 05/31/2024 09:18:33 07/05/2007/05/2023 elect sola bergeron am EKG LALY Sebastian NAME: Kailey Hernandez UNIT #: [id number] ORDERI NG PROVID ER: Ilda Angeles M.D. ACCOUN T #: [id number] PRIMAR Y CARE PROVID ER: CEASAR TURNER DATE/T ARELY OF SER VICE: 1146 : 1974 PERFOR OSCAR LOCATI ON: ER ------ ------ --- APPROV ED REPORT ------ ------ -- Exam: Restin g ECG Reason for Exam: syncop e Laly sebastian Locati on: E HR:74 bpm ECG Measur ements Heart Rate 74 AXIS TX 147 P 73 QRSd 106 QRS -66 QT 393 T 66 QTc 435 Conclu marysol Sinus rhythm ..., V-rate 60- 99 Approp riate interv als. No ST segmen t or T wave abnorm jason soriano to micah sebastian occlus jes AL ------ ------ ------ ------ ------ ------ ------ ------ ------ ------ ------ ------ ------ ------ ------ ------ ---- ------ - E-Sign Date: E-Sign Time: [id number] [place], [address] 07/06/2023 16:20:18 07/05/2007/05/2023 vrtiffany sebastian Name: Kailey Hernandez Unit #: [id number] Loc: ER Orderi ng Provid er: Accoun t #: [id number] Status : REG ER Primar y Care Provid er: Ceasar Turner Date of Exam: Sex: F : 1974 Age: 48 Exam(s ) PROCED URE INFORM ATION: Exam: CTA Head With Contra st, Arteri ograph y Exam date and time: 11:54 AM Age: 48 years old Clinic [...] GS: ANTERI OR CIRCUL ATION: Right international account manager al caroti d artery : 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 Right middle cerebr al artery : No occlus ion or signif icant stenos is. No aneury sm. Right anteri or cerebr al artery : Absent right A1 segmen t which can be a normal varian t. Left international account manager al caroti d artery : Mild-t o-mode rate cavern ous caroti d diseas e on the left. Left middle cerebr al artery : No occlus ion or signif icant stenos is. No aneury sm. Left anteri or cerebr al artery : No occlus ion or signif icant stenos is. No aneury sm. COMPOSITE LAMINATOR IOR CIRCUL ATION: Right verteb ral artery : No occlus ion or signif icant stenos is. No aneury sm. Left verteb ral artery : No occlus ion or signif icant stenos is. No aneury sm. Basila r artery : No occlus ion or signif icant stenos is. No aneury sm. Right continuous still operator ior cerebr al artery : No occlus ion or signif icant stenos is. No aneury sm. Left continuous still operator ior cerebr al artery : No occlus [...] No large vessel occlus ion at the [place] -[place] ll[place]. 3. Absent right A1 segmen [...] dissec tion or occlus ion. Right international account manager al caroti d artery : No stenos is of the extrac ranial segmen t. No dissec tion or occlus ion. Right dietary services manager al caroti d artery : No occlus ion or stenos is of the origin . Left common caroti d artery : No stenos is. No dissec tion or occlus ion. Left international account manager al caroti d artery : No stenos is of the extrac ranial segmen t. No dissec tion or occlus ion. Left dietary services manager al caroti d artery : No occlus [...] cervic al segmen t of the international account manager al caroti d artery is based on NASCET criter ia. Normal is no stenos is. Mild is less than 50% stenos is. Modera te is 50-69% stenos is. Severe is 70% to 99% stenos is. Total occlus ion is no detect able patent lumen. Dictat ed and Alexsander leonard d by: Debby Albert i, MD. Orderi ng:Curry gee MD Access ion#=[id number] Ordere d By: CC: ------ ------ [...] the addres s above. Thank- you. [email or web address] [facility] [address] [place], [address] 07/06/2023 16:20:17 07/05/20 23 07/05/2023 vrad repor t Laly t Name: Kailey Hernandez Unit #: [id number] Loc: ER Orderi ng Provid er: Accya t #: [id number] Status : REG ER Primar y [...] MD. Orderi ng:Curry gee MD Access ion#=[id number] Orderdagoberto d By: CC: ------ ------ ------ ------ [...] at the addres s above. Thank- you. [email or web address] [facility] [address], [place], [address] 07/06/2023 16:20:19 07/05/20 23 07/05/2023 ED visit note ED Visit Note LALY Sebastian NAME: Kailey Hernandez UNIT #: [id number] ADMITT ING PROVID ER: Ilda Angeles M.D. ACCOUN T #: [id number] PRIMAR Y CARE PROVID ER: JENNIFER ON,CEASAR FRANCO DATE OF ADMIT: : 1974 Discha rge Plan Dispos ition Condit ion: Stable Discha rge Detail s Chief Compla int: AMS/LO C Clinic al Impres marysol: Syncop e Primar y Care Provid er: Jennifer on,Ceasar franco ED Provid er: Ilda Angeles Home Meds [...] of 2022 s/p 2 YULISA to [facility] presmarianna moctezuma via EMS for unresp onsive episod e. Histor y from patien t, EMS, and signif caty other at bedsid e. Today while si tting she became unresp onsive , signif brianna other noted this and was unable [...] moveme nts to sugges t seizur e. [facility] record s review ed includ ing cardio logy clinic visits : Stents placed in January of 2022, Nuclea r stress test in March of 2022 was negati ve, syncop al episod e in 2 with subseq uent 30-day cardia c monito [...] alitie s to sugges t occlus jes AL. Tropon in negati ve x 2 -CT [...] to hold her agains t her will. Discha rged home agains t medica l advice ; discha rge instru ctions and return precau tions were review ed with laly jaz who verbal ized unders percy laureano. All questi ons were answer ed. Medica l Record s Medica l record s review ed: Yes I review ed the patien t's medica l record s. Norahin g Data Radiol ogic Study: Imagin g: CT Scan Radiol ogist' s impres marysol: IMPRES MARYSOL: 1. No acute intrac ranial abnorm ality. 2. No large vessel occlus ion at the [place]. 3. Absent right A1 segmen t which can be a normal varian t. 4. No orbita l lesion . Radiol ogic Study #2: Imagin g: CT Scan Radiol ogist' s impres marysol: IMPRES MARYSOL: No acute abnorm ality. Other findin gs. Lab Data Lab result s review ed: Yes I review ed the patien jaz's lab result s. Labs: 14:45 Urine - Reflex from Ua Urine Cultur e - Pendin g Dentona torimmanuel Tests Range/ Units 11:45 14:32 14:45 WBC [...] the addres s above. Thank you. amarjit [facility] [address] [place], [address] 07/06/2023 16:20:17 07/05/2007/05/2023 CT imagi ng repor t Patien t Name: Kailey Hernandez Unit #: [id number] Loc: ER Orderi ng Provid er: Ilda Angeles M.D. Accya t #: [id number] Status : REG ER Primar y Care [...] facili ty are submit tarsha to the [facility] al Radiol ogy Data Regist ry (NRDR) Dose Index Regist ry (DIR) with the [place] of Radiol ogy (ACR). RADIAT ION OPTIMI ZATION : [facility] use at least one [...] Delroy Doll M.D. 1846 Transc ribed By: Edgar Doll MD 1846 This is privil eged, confid ential [...] the addres s above. Thank- you. amarjit [facility] [address], [place], [address] 07/06/2023 16:20:20 07/05/2007/05/2023 CT imagi ng repor t Patien t Name: Kailey Hernandez Unit #: [id number] Loc: ER Orderi ng Provid er: Ilda Angeles M.D. Accoun t #: [id number] Status : REG ER Primar y Care [...] caroti d bulbs and proxim al international account manager al caroti d arteri es there is no signif icant plaque and no signif icant stenos is eviden t. Both international account manager al caroti d arteri es are patent in the upper neck and skull base-c arotid canals . Storage Battery Inspector And Tester ior circul ation: Both verteb ral arteri [...] W: Anteri or circul ation: Both international account manager al caroti d arteri es are patent in the skull base-c arotid canals as well as within the cavern ous sinuse s. Suprac linoid aspect s of both international account manager al caroti d arteri es are [...] no aneury sms of these vessel s. Storage Battery Inspector And Tester ior circul ation: The basila r artery ascend s in the midlin e. Distal ly it gives off patent bilate ral superi or cerebe llar arteri es. Above this level the basila r artery termin ates as patent bilate ral continuous still operator ior cerebr al arteri es. There is a continuous still operator ior commun icatin g artery noted on the left side of the [place]. There is no eviden ce of aneury sm at the tip of the basila r artery nor elsewh ere in the [place]. CT BRAIN: There is no [...] error, please notify us immedi bradfordly at [phone] and return the origin al report to us at the addres s above. Thank- you. amarjit [facility] [address] [place], [address] 07/06/2023 16:20:20 07/06/2007/05/2023 cesar bergeron am EKG LALY Sebastian NAME: Kailey Hernandez UNIT #: [id number] ORDERI NG PROVID ER: Ilda Angeles M.D. ACCOUN T #: [id number] PRIMAR Y CARE PROVID ER: JENNIFER ON,CEASAR FRANCO DATE/T ARELY OF SER VICE: 1146 : 1974 PERFOR OSCAR LOCATI ON: ER ------ ------ --- APPROV ED REPORT ------ ------ -- Exam: Restin g ECG Reason for Exam: syncop e Laly sebastian Locati on: E HR:74 bpm ECG Measur ements Heart Rate 74 AXIS TX 147 P 73 QRSd 106 QRS -66 QT 393 T 66 QTc 435 Conclu marysol Sinus rhythm ..., V-rate 60- 99 Approp riate interv als. No ST segmen t or T wave abnorm jason soriano to micah sebastian occlus jes AL ------ ------ ------ ------ ------ ------ ------ ------ ------ ------ ------ ------ ------ ------ ------ ------ ---- ------ - E-Sign Date: E-Sign Time: 1159 ------ ------ --- ADDEND UM APPROV ED REPORT ------ ------ -- Exam: Restin g ECG Reason for Exam: syncop e Laly sebastian Locati on: E HR:74 bpm ECG Measur ements Heart Rate 74 AXIS TX 147 P 73 QRSd 106 QRS -66 QT 393 T 66 QTc 435 Conclu marysol Sinus rhythm ..., V-rate 60- 99 Approp riate interv als. No ST segmen t or T wave abnorm jason soriano to micah sebastian occlus jes AL I have review ed and I agree with the emerge ncy room physic kristie's ECG interp retati on. Electr onical ly signed by: [id number] Cosign ed by: amarjit [address] [place], [address] 07/06/2023 16:20:18 08/21/19 24 08/21/2023 elect sola bergeron am EKG PATIMARIANNA Sebastian NAME: Kailey Hernandez UNIT #: [id number] TIM [facility] ER: Ilda Angeles M.D. ACCOUN T #: [id number] PRIMAR Y CARE PROVID ER: CEASAR TURNER DATE/T ARELY OF SER VICE: 2217 : 1974 PERFOR OSCAR LOCATI ON: ER ------ ------ --- APPROV ED REPORT ------ ------ -- Exam: Restin g ECG Reason for Exam: vomiti ng Patien t Locati on: E HR:73 bpm ECG Measur ements Heart Rate 73 AXIS TX 149 P 68 QRSd 114 QRS 1 QT 395 T 67 QTc 437 Conclu marysol Sinus rhythm ..V-ra te 60- 99 Approp riate interv als. No ST segmen t or T wave abnorm jason soriano to micah sebastian occlus jes AL ------ ------ ------ ------ ------ ------ ------ ------ ------ ------ ------ ------ ------ ------ ------ ------ ---- ------ - E-Sign Date: E-Sign Time: [address] [place], [address] 08/24/2023 07:32:07 08/21/19 24 08/21/2023 ED visit note ED Visit Note LALY Sebastian NAME: Kailey Hernandez UNIT #: [id number] ADMITT ING PROVID ER: Ilda Angeles M.D. T #: [id number] PRIMAR Y CARE PROVID ER: CEASAR [...] includ ing most recent ED visit in [facility] er for syncop e and cardio logy [...] ion. Midlin e tongue protru marysol Motor- 5 streng th symmet thelma bilate ral upper [...] alitie s to sugges t occlus jes AL. Labs review ed as below, CBC reassu [...] geovanni patel physic kristie, plan to PO jamaica bland, therese ss. Lab Data Lab result s review ed: Yes I review ed the patien t's lab result s. 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 Thank you. amarjit [facility] [address] [place], [address] 08/24/2023 07:32:07 08/22/1908/22/2023 ED progr ess note ED Progre ss Note PATIMARIANNA T NAME: Kailey Hernandez UNIT #: [id number] ADMITT ING PROVID ER: Richard Savage DO ACCOUN T #: [id number] PRIMAR Y CARE PROVID ER: CEASAR TURNER DATE OF ADMIT: : 1974 Date of servic e: Time of Servic e: 06:17 Medica l [place] on Making Laly sebastian was signed out to me by my collea skyler Hernández Please refer to HPI, physic al exam, assess ment and plan. At the time of signou t laly sebastian had been medica lly cleare d howeve r we were waitin g for the effect s of the edible s to wear off. At around midnig ht the patimarianna t was feelin g much better but was still slight ly sleepy . Unfort unatel y the only way for the laly sebastian to get home or for her husban d to be able to get to the emerge [facility]ty depart ment was by EMS or using RCT. Laly sebastian was allowe d to sleep in the emerge ncy depart ment throug hout the rest of the night. Curren tly at 6:30 AM the laly sebastian is feelin g much better . She ambula aneta well, she shows no signs of intoxi cation . Laly sebastian states that she feels at her baseli ne. Patimarianna t stable for discha rge. I recomm ended agains t utiliz ing edible s in the future . I have extens ively review ed the treatm ent plan and discha rge instru ctions with the laly sebastian. I have addres sed all patimairanna t concer ns at this time. The patimarianna t was made aware of what sympto ms to monito r for that would warrsusan t a return to the emerge ncy depart ment. Discus sed the plan with the laly sebastian, they demons trate verbal unders tandin g and agreem ent with our assess ment and plan at this time. The docume ntatio n in this chart was dictat ed using [employer] dictat ion softwa re. Please excuse any [...] is Primar y Care Provid er: Jennifer on,Pat joan ED Provid er: [place] ,Joshu a R Home Meds and New Rx's Prescr iption [...] time the major effect s of the skyler sintia has seemin gly worn off. I would advise avoidi ng edible use in the future . If you notice any worsen ing of your sympto ms, or any new sympto ms such as vomiti ng, diarrh ea, fever, chills , shortn ess of breath , chest pain, numbne ss, weakne ss, or fainti ng , please return immedchaka felderly to the emerge ncy depart ment for reeval uation . Please follow up with your primar y care provid er as soon as possib le for reasse ssment and reeval uation . As always , it was a pleasu re partic ipatin g in your medica l care today. Referr [...] this report in error, please notify us tamra olson at and return the origin al report to us at the addres s above. Thank you. [email or web address] [facility] [address] [place], [address] 08/24/2023 07:32:07 08/28/19 24 08/21/2023 elect sola bergeron am EKG PATIEN T NAME: Kailey Hernandez UNIT #: [id number] ORDERI [facility] ER: Ilda Angeles M.D. ACCOUN T #: [id number] PRIMAR Y CARE PROVID ER: JENNIFER ON,PAT JOAN DATE/T ARELY OF SER VICE: 2217 : 1974 PERFOR OSCAR LOCATI ON: ER ------ ------ --- APPROV ED REPORT ------ ------ -- Exam: Restin g ECG Reason for Exam: vomiti amanda Patien t Locati on: E HR:73 bpm ECG Measur ements Heart Rate 73 AXIS TX 149 P 68 QRSd 114 QRS 1 QT 395 T 67 QTc 437 Conclu marysol Sinus rhythm ..V-ra te 60- 99 Approp riate interv als. No ST segmen t or T wave abnorm jason soriano to micah sebastian occlus jes AL ------ ------ ------ ------ ------ ------ ------ ------ ------ ------ ------ ------ ------ ------ ------ ------ ---- ------ - E-Sign Date: E-Sign Time: 2229 ------ ------ --- ADDEND UM APPROV ED REPORT ------ ------ -- Exam: Restin g ECG Reason for Exam: vomiti amanda Ruffin t Locati on: E HR:73 bpm ECG Measur ements Heart Rate 73 AXIS TX 149 P 68 QRSd 114 QRS 1 QT 395 T 67 QTc 437 Conclu marysol Sinus rhythm ..V-ra te 60- 99 Approp riate interv als. No ST segmen t or T wave abnorm alitie s to sugges t occlus jes AL I have review ed and I agree with the emerge ncy room physic kristie's ECG interp retati on. Electr onical ly signed by: [id number] Cosign ed by: [email or web address] [facility] [address] [place], [address] 08/28/2023 14:30:56 12/07/19 24 12/07/2023 x-ray imagi ng repor t Patien t Name: Kailey Hernandez Unit #: [id number] Loc: ER Orderi ng Provid er: Ramon Thorpe M.D. Accoun t #: [id number] Status : REG ER Primar y Care Provid er: Ceasar Turner joan Date of Exam: Sex: F Admiss ion [...] 1343 1343 Transc ribed By: Hallie Lamb e 1343 This is privil eged, confid ential inform ation intend ed only for the provid er named. Any use or distri bution by any person other than this provid er is strict ly prohib ited. If you receiv e this report in error, please notify us immedi ately at [phone] and return the origin al report to us at the addres s above. Thank- you. [email or web address] [facility] [address], [place], [address] 12/07/2023 17:00:11 02/15/20 24 02/15/2024 CT imagi ng alen sebastian Name: Kailey Hernandez Unit #: [id number] Loc: ER Orderi ng Provid er: Julissa Thornton Accoun t #: [id number] Status : REG ER Primar y Care Provid er: Jennifer mathur,Ceasar franco Date of Exam: Sex: F : [...] the C4-5 levels both anteri stacy and continuous still operator iorly partia l fusion of the C4 and 5 verteb ral bodies as well as the continuous still operator ior osseou s elemen ts includ ing the bilate ral facet joints at this level. Other disc spaces exhibi t normal height and other facet joints appear unrema rkable . Calcif ic densit y anteri or to the lower odonto id is unchan ged from Dece er 2022 No signif icant osseou s [...] facili ty are submit tarsha to the [facility] al Radiol ogy Data Regist [...] tion); or iterat jes recons tructi on. 018: Total DLP = 0.00 mGy-cm Ordere d By: Julissa Thornton CC: ------ ------ ------ ------ ------ ------ ------ ------ ------ ------ ------ ------ ---- Dictat ed By: Delroy Doll M.D. 1102 1101 Transc ribed By: Sharmila DUNCAN,Edgar valenzuela 1101 This is privil eged, confid ential inform ation intend ed only for the provid er named. Any use or distri bution by any person other than this provid er is strict ly prohib ited. If you receiv e this report in error, please notify us immedi ately at and return the origin al report to us at the addres s above. Thank- you. [email or web address] [facility] [address] [place], [address] 02/15/2024 12:23:56 02/15/20 24 02/15/2024 CT imagi ng repor t Patien t Name: Kailey Hernandez Unit #: [id number] Loc: ER Orderi ng Provid er: Julissa Thornton Accoun t #: [id number] Status : REG ER Primar y Care [...] ZATION : [facility] use at least one of these dose optimi zation techni ques: automa tarsha exposu re contro l; mA and/or kV adjust ment per patien t size (inclu yulisa target ed exams where dose is matche d to clinic al indica tion); or iterat jes recons tructi on. 714-0 017: Total DLP = 0.00 mGy-cm Ordere d By: Julissa Thornton CC: ------ ------ ------ ------ ------ ------ ------ ------ ------ ------ ------ ------ ---- Dictat ed By: Delroy Doll M.D. 1116 1116 Transc ribed By: Sharmila DUNCAN,Edgar valenzuela 1116 This is privil eged, confid ential inform ation intend ed only for the provid er named. Any use or distri bution by any person other than this provid er is strict ly prohib ited. If you receiv e this report in error, please notify us immedi ately at [phone] and return the origin al report to us at the addres s above. Thank- you. [email or web address] [facility] [address], [place], [address] 02/15/2024 12:23:56 02/15/20 24 02/15/2024 ultra sound imagi ng repor t Patien t Name: Kailey Hernandez Unit #: [id number] Loc: ER Orderi ng Provid er: Julissa Thornton Accoun t #: [id number] Status : REG ER Primar y Care [...] compar lionel FINDIN GS: The left international account manager al jugula r, axilla ry, subcla [...] the addres s above. Thank- you. amarjit [facility] [address] [place], [address] 02/15/2024 14:16:11 02/15/20 24 02/15/2024 CT imagi amanda repor t Laly t Name: Kailey Hernandez Unit #: [id number] Loc: ER Tim patel Provid er: Julissa Thornton Accoun t #: [id number] Status : REG ER Primar y Care [...] the distal abdomi nal aorta and international account manager al iliac arteri es. Pulmon yamilet [...] ZATION : All CT scans at this [facility] ty use at least one of these dose optimi zation techni ques: automa tarsha exposu re contro l; mA and/or kV adjust ment per patien t size (inclu yulisa target ed exams where dose is matche d to clinic al indica tion); or iterat jes recons tructi on. 020: Total DLP = 0.00 mGy-cm Ordere d By: Julissa Thornton CC: ------ ------ ------ ------ ------ ------ ------ ------ ------ ------ ------ ------ ---- Dictat ed By: Ariadna Ochoa 1437 143 Transc ribed By: Hallie Lamb 1437 This is privil eged, confid ential inform [...] the addres s above. Thank- you. amarjit [facility] [address] [place], [address] 02/15/2024 14:49:16 04/13/20 24 04/13/2024 x-ray imagi ng repor t Patimarianna t Name: Kailey Hernandez Unit #: [id number] Loc: DI Orderchaka patel Provid er: JoseJaz jacobo tamra WILLSON Accoun t #: [id number] Status : REG CLI Primar y Care Provid er: Karie Lindsey SUTURE WINDER HAND Date of Exam: 06/26 Sex: F Admiss [...] ITY LT CTA from 2023 MR MR VANESSA AL SPINE WO from 2023 FINDIN GS: The PA and latera l chest films show normal heart size and clear lung garcia . The latera l tape recorder mechanic view of the neck is unrema rkable [...] RED: Ka,r=9 .33 mGy Ordere d By: Jaz Louis APRN CC: ------ ------ ------ ------ [...] the addres s above. Thank- you. amarjit [facility] [address] [place], [address] 04/13/2024 12:10:55 04/17/20 24 01/03/2022 imagi ng/di agnos tic [...] Address Organization Details Recorded Time Hearing loss 56405758 Active 201501/08/20 23 - Comments only - Navin Pittman RPA - Bilatera l, left greater than right. 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 Problem Code: E78.5; Problem Code Type: ICD-10; Not Available [facility] 3 05:05:04 Polyneur opathy 26653651 Active 2015 Problem Code: G62.9; Problem Code Type: ICD-10; Not Available [facility] 3 05:05:04 Chronic kidney disease stage 1 005483450 Active 2015 Problem Code: N18.1; Problem Code Type: ICD-10; Not Available [facility] 3 05:05:04 Pain in left foot 80301076722 9107 Completed 201503/28/2016 Problem Code: M79.672; Problem Code Type: ICD-10; Not Available [facility] 3 05:05:04 Pelvic and perineal pain 865003755 Completed 201604/06/2017 Problem Code: R10.2; Problem Code Type: ICD-10; [address], [place], [address] , [facility] 4 12:48:28 Mild intermit tent asthma 456496359 Active 2018 Problem Code: J45.20; Problem Code Type: ICD-10; Not Available [facility] 3 05:05:04 Gastroes ophageal reflux disease without esophagi tis 924023492 Active 2020 Problem Code: K21.9; Problem Code Type: ICD-10; Not Available [facility] 3 05:05:05 Viral screenin g Completed 202101/04/2022 Problem Code: Z11.59; Problem Code Type: ICD-10; Not Available [facility] 3 05:05:05 Atherosc lerosis of coronary artery without angina pectoris 34972100695 4103 Active 202103/09/20 23 - Comments only - Navin Pittman RPA - STEMI January 2022 with stenting x 2 of RCA. complete d one year of DAPT [address], [place], [address] , [facility] 4 12:47:18 Altered mental status 507130012 Completed 202104/22/2022 Problem Code: R41.82; Problem Code Type: ICD-10; Not Available [facility] 3 05:05:05 Syncope and collapse 835276510 Active 202106/11/20 22 - Comments only - Navin Pittman RPA - recurren t syncope thought to be secondar y to hypoglyc emic episodes . [address], [place], [address] , [facility] 4 12:49:32 Hypergly cemia due to type 1 diabetes mellitus 23917672705 9101 Completed 201504/29/2023 Problem Code: E10.65; Problem Code Type: ICD-10; Not Available [facility] 3 05:05:09 Hyperkal emia 67694043 Completed 201510/09/2016 Problem Code: E87.5; Problem Code Type: ICD-10; Not Available [facility] 3 05:05:10 Endocrin e/metabo lic screenin g Completed 201801/15/2020 Problem Code: Z13.29; Problem Code Type: ICD-10; Not Available [facility] 3 05:05:12 Vaginal bleeding 536831882 Completed 201510/09/2016 Not Available [facility] 3 05:05:12 Hemochro matosis 060347407 Completed 201510/09/2016 Problem Code: E83.119; Problem Code Type: ICD-10; Not Available [facility] 3 05:05:12 Constipa tion 19982154 Completed 201801/15/2020 Problem Code: K59.00; Problem Code Type: ICD-10; Not Available [facility] 3 05:05:14 Disorder of urinary bladder 35432475 Completed 201801/15/2020 Problem Code: N32.89; Problem Code Type: ICD-10; Not Available [facility] 3 05:05:15 Cellulit is of right lower limb 50540781511 163921 Completed 202106/11/2022 Problem Code: L03.115; Problem Code Type: ICD-10; Not Available [facility] 3 05:05:17 Adult health examinat ion Completed 202005/21/2021 Problem Code: Z00.00; Problem Code Type: ICD-10; Not Available [facility] 3 05:05:21 Abdomina l pain 31418463 Completed 201805/21/2021 Problem Code: R10.9; Problem Code Type: ICD-10; Not Available [facility] 3 05:05:22 History of respirat ory disease 354963631 Completed 201801/15/2020 Problem Code: Z87.09; Problem Code Type: ICD-10; Not Available [facility] 3 05:05:25 HIV screenin g Completed 202106/11/2022 Problem Code: Z11.4; Problem Code Type: ICD-10; Not Available [facility] 3 05:05:26 Breast composit ion 127768530 Completed 201505/21/2021 Not Available [facility] 3 05:05:27 Impingem ent syndrome of right shoulder region 32091893301 9102 Completed 201905/21/2021 Problem Code: M75.41; Problem Code Type: ICD-10; Not Available [facility] 3 05:05:28 Blood chemistr y outside referenc e range 184236101 Completed 202109/09/2022 Problem Code: R79.89; Problem Code Type: ICD-10; Not Available [facility] 3 05:05:29 Finding of contents of vagina 073290677 Completed 201510/09/2016 Not Available [facility] 3 05:05:29 Type 1 diabetes mellitus 06508914 Active [address], [place], [address] , [facility] 3 13:22:10 Notes:*Problem Name: Visual acuity, decreased, left eye *Problem Status: active *Comments: *Problem Code: H54.52 *Problem Code Type: ICD-10 *Note Date: 09/27/2015 Problem Notes None recorded. Procedures Surgical History None recorded. Imaging Results Imaging Date Name Status LastModified by Organization Details LastModified Time 07/05/2023 electrocardiogram completed amarjit [address] [facility] [place], [address] 07/06/2023 16:20:18 07/05/2023 vrad report completed amarjit [address] [place], [address] 07/06/2023 16:20:17 07/05/2023 vrad report completed amarjit [address] [place], [address] 07/06/2023 16:20:19 07/05/2023 ED visit note completed amarjit [address] [place], [address] 07/06/2023 16:20:17 07/05/2023 CT imaging report completed amarjit [address] [place], [address] 07/06/2023 16:20:20 07/05/2023 CT imaging report completed [email or web address] [address] [place], [address] 07/06/2023 16:20:20 07/05/2023 electrocardiogram completed [id number] [place] [address] [place], [address] 07/06/2023 16:20:18 08/21/2023 electrocardiogram completed [email or web address] [address] [place], [address] 08/24/2023 07:32:07 08/21/2023 ED visit note completed [email or web address] [address] [place], [address] 08/24/2023 07:32:07 08/22/2023 ED progress note completed [email or web address] [address] [place], [address] 08/24/2023 07:32:07 08/21/2023 electrocardiogram completed [id number] [place] [address] [place], [address] 08/28/2023 14:30:56 12/07/2023 x-ray imaging report completed [email or web address] [facility] [address] [place], [address] 12/07/2023 17:00:11 02/15/2024 CT imaging report completed [email or web address] [address] [place], [address] 02/15/2024 12:23:56 02/15/2024 CT imaging report completed [email or web address] [address] [place], [address] 02/15/2024 12:23:56 02/15/2024 ultrasound imaging report completed [email or web address] [address] [place], [address] 02/15/2024 14:16:11 02/15/2024 CT imaging report completed [id number] [address] [place], [address] 02/15/2024 14:49:16 04/13/2024 x-ray imaging report completed [id number] No [email or web address] [address] [place], [address] 04/13/2024 12:10:55 01/03/2022 imaging/diagnostic result completed Information not available 04/17/2024 23:31:55 01/04/2022 imaging/diagnostic [...] Updated DateTime 3 161.925 cm 22.5 kg/m2 40814.7 3 g 98.1 [degF] 16 /min 80 /min 94 mm[Hg] 50 mm[Hg] FELICIANO MUNGUIA RN [facility] 3 10:24:47 Date Recorded Body height Body mass index (BMI) Body weight Body temperature Respiratory rate Heart rate Systolic blood pressure Diastolic blood pressure Provider Name and Address Organization Details Last Updated DateTime 4 161.92 cm 22.5 kg/m2 60100.0 1 g 98.1 [degF] 16 /min 76 /min 90 mm[Hg] 46 mm[Hg] FELICIANO MUNGUIA RN [facility] 4 09:31:55 Date Recorded Body height Body mass index (BMI) Body weight Body temperature Oxygen saturation Oxygen saturation in Arterial blood by Pulse oximetry Heart rate Systolic blood pressure Diastolic blood pressure Provider Name and Address Organization Details Last Updated DateTime 161.92 cm 22.7 kg/m2 64430.6 g 98.6 [degF] 100 % 100 % 80 /min 104 mm[Hg] 50 mm[Hg] RAISA ARELLANO RN [facility] 10:07:23 Social History Question Answer Notes LastModified by Organizat ion Details LastModified Time Tobacco Smoking Status Never Smoker FELICIANO MUNGUIA RN [facility], [facility] 06/17/2023 10:29:17 Date Care Plan Printed: 10/02/2023 Information not available 10/02/2023 Assigned Emergency Operator: Hilda Ring RN Information not available 10/02/2023 Is [facility] The Lead Emergency Operator? Yes Information not available 10/02/2023 Level Of [...] No Informa tion not available 10/02/2023 Community Bindery Leadperson Yes Information not available 10/02/2023 Dental Services No Informati on not available 10/02/2023 Diabetes Education Yes Information not available 10/02/2023 Food Resources Yes Informatio n not available 10/02/2023 Fuel Assistance No Informati on not available 10/02/2023 Hospice No Information not available 10/02/2023 Housing Yes Information not available 12/22/2023 Insurance Enrollment No Information not available 10/02/2023 Covered Buckle Assembler Care No Informatio n not available 10/02/2023 Meals On Wheels No Informati on not available 10/02/2023 Medication Assistance No Information not available 10/02/2023 Physical Activity Programs No Information not available 10/02/2023 Fdc No Informati on not available 10/02/2023 Social [...] Not Interested Information not available 10/02/2023 Health Tire Room Supervisor For HTN Control No Information not available 10/02/2023 Tobacco Cessation No Informa tion not available 10/02/2023 Weight Loss Program No Information not available 10/02/2023 WRAP No Information not available 10/02/2023 AHS (Automotive Sales Representative) No Information not available 10/02/2023 Adult Protective Services No Information not available 10/02/2023 BAART No Information not available 10/02/2023 Community Behavioral Services No Information not available 10/02/2023 Community Restorative Justice No Information not available 10/02/2023 DCF No Information not available 10/02/2023 Department Of Labor No Information not available 10/02/2023 Economic Services No Informa tion not available 10/02/2023 EMS No Information not available 10/02/2023 [place] Support Services No Information not available 10/02/2023 HireAbility No Information not available 10/02/2023 [facility] No Information not available 10/02/2023 NECKA Yes Information not available 10/02/2023 NEKYS No Information not available 10/02/2023 RCT Yes Information not available 10/02/2023 Rural Edge No Information not available 10/02/2023 [employer]ida No Information not available 10/02/2023 School Counselor No Informat ion not available 10/02/2023 School Nurse No Information not available 10/02/2023 Umbrella No Information not available 10/02/2023 VCCi No Information not available 10/02/2023 [place] [facility] No Information not available 10/02/2023 Business Process Consultant On Aging No Informat ion not available 10/02/2023 Designated Agency No Informa tion not available 10/02/2023 Home Health Agency No Information not available 10/02/2023 Providers Yes Information not available 10/02/2023 SAS No Information not available 10/02/2023 Other Support [...] Td(adult) unspecified formulation 10/09/2014 completed Not Available [facility] 06/12/2023 06:33:17 Influenza, split virus, trivalent, preservative 04/16/2016 completed Not Available [facility] 06/12/2023 06:33:17 Influenza, split virus, quadrivalent, PF 05/21/2021 completed Not Available [facility] 06/12/2023 06:33:17 Influenza, split virus, quadrivalent, preservative 05/17/2018 completed Not Available [facility] 06/12/2023 06:33:17 SARS-COV-2 (COVID-19) vaccine, UNSPECIFIED 08/09/2021 completed Not Available [facility] 06/12/2023 06:33:17 SARS-COV-2 (COVID-19) vaccine, UNSPECIFIED 12/17/2020 completed Not Available [facility] 06/12/2023 06:33:17 SARS-COV-2 (COVID-19) vaccine, UNSPECIFIED 01/07/2021 completed Not Available [facility] 06/12/2023 06:33:18 pneumococcal polysaccharide PPV23 12/22/2012 completed Not Available [facility] 2022 06:33:18 influenza, unspecified formulation 05/23/2019 completed Not Available [facility] 06/12/2023 06:33:18 Td(adult) unspecified formulation 10/09/2014 completed FELICIANO MUNGUIA RN [facility], [facility] 09/22/2023 14:43:22 Past Encounters Encounter ID Performer Location Encounter Start Date Encounter Closed Date Diagnosis/Indication Diagnosis SNOMED-CT Code Diagnosis ICD10 Code [id number] NAVIN PITTMAN PA-C [facility] [address] [place] [address] 06/17/2023 09:40:59 06/17/2023 10:57:50 Atherosclerosis of coronary artery without angina pectoris 1348850202 79149 I25.10 Chronic ki dney disease stage 1 179121496 N18.1 Hyperlipidemia 38695783 E78.5 Type 1 tio betes mellitus 70194921 E10.8 [id number] NAVIN PITTMAN PA-C [facility] [address] [place] [address] 09/25/2023 09:17:41 09/25/2023 10:04:19 Atherosclerosis of coronary artery without angina pectoris 8566020333 04653 I25.10 Chronic ki dney disease stage 1 330246139 N18.1 Type 1 tio betes mellitus 47904139 E10.8 [id number] NAVIN PITTMAN PA-C [facility] [address] [place] [address] 12/22/2023 09:20:52 12/22/2023 10:59:47 Atherosclerosis of coronary artery without angina pectoris 4756038091 03155 I25.10 Hyperlipidemia 56400784 E78.5 Type 1 tio betes mellitus 76319112 E10.8 Pain of left heel 129961 2464 286662 M79.672 Goals Section Goal Description Status Start [...] ID Guarantor Name 06/17/2023 1 [place]IC[place] [facility] Kailey Hernandez Silver [id number] 1 Kailey David Silver 06/17/2023 2 [facility] [place] [facility] (MEDICAID) Kailey A Silver [id number] Kailey A Silver 09/25/2023 1 [place] [facility] Kailey A Silver [id number] 1 Kailey A Silver 09/25/2023 2 [facility] [place] [facility] (MEDICAID) Kailey A Silver [id number] Kailey A Silver 12/22/2023 1 [place] [facility] Kailey A Silver [id number] 1 Kailey A Silver 12/22/2023 2 [facility] [place] [facility] (MEDICAID) Kailey A Silver [id number] Kailey A Silver Notes Date Note Type Note Provider Name and Address Organization Details Recorded Time 06/17/2023 text/html Kailey is here fo r followup of cad and diabetes. She has been feeling well. No recent illnesses. Less frequent hypoglycemic episodes but did experience some of these when she tried titrating basaglar above [address], [place], [address], [facility]. 06/17/2023 13:24:22 09/25/2023 text/html Jsesy is here fo r follow-up of diabetes and coronary artery disease. She has been feeling at her baseline health. No recent significant hypoglycemic episodes. She has been referred by ENT to [facility] for consideration of left ear surgery to restore some hearing. Has upcoming follow-up with cardiology. Presented to the ER for a stomach bug last month. This has resolved. [address], [place], [address], [facility]. 09/25/2023 11:15:19 12/22/2023 text/html Kailey is here fo r follow-up of type 1 diabetes, hyperlipidemia, and hypertension. She has been doing fairly well. She was recently seen in the ER for chest pain with unremarkable cardiac workup. She has not had any recurrence of the chest pain since. She has upcoming cardiology follow-up. It has been 2 years since her AL. Her blood sugars have been doing okay. Still gets occasional lows. It drops precipitously. Her significant other admits that he likely overcompensates for these hypoglycemic episodes. Currently having some left heel pain. Painful to put pressure on her heel. Her religion professor knows about this. [address], [place], [address], [facility], [facility]. 12/22/2023 12:27:24 OBGyn Episode No OBEpisode recorded.
--- OUTSIDE RECORDS SUMMARY | 2024-06-17 14:47 | XMS_ITS | Encounter Summary ---
Author Organization [facility] [place] [address] Care Team Providers Care Acid Bleacher Name Role Phone Jose Pittman Primary Care Provider [phone] Reason for Referral * Consultation (Routine) - Closed Specialty Diagnoses / Procedures Referred By Chip t Referred To Contact Cardiology Diagnoses Elevated troponin Elevated troponin Giselle Cervantes APRN [address] [place] [address] [facility] [address] [place] [address] Referral ID Status Reason Start Date Expiration Date V isits Requested Visits Authorized [id number] Closed Consult, Test & Treat PCP Updated and/or Approved 01/30/2022 01/30/2023 6 6 Encounter Details Date Type Department Care Team (Late st Contact Info) Description 01/30/2022 Transcribe Orders eDH Incoming Referrals [phone] Giselle Cervantes APRN [address] [place], [place] [id number] Elevated troponin Social History Tobacco Use Types [...] chemistry documented in this encounter Care Teams Acid Bleacher Relationship Specialty Start Date End Date Jose Pittman PA [address] [place] [address] PCP - General Internal Medicine 01/30/22 04/01/24 documented as of this encounter
--- OUTSIDE RECORDS SUMMARY | 2024-06-17 14:47 | XMS_ITS | Clinical Summary ---
Author Organization [facility] Address [facility] [place] [address] Care Team Providers Care Children'S Nursery Assistant Name Role Phone Karie Lindsey DEMETRIS Primary Care Provider + [phone] Allergies Active Allergy Reactions Criticality Noted Date [...] Encounters Date Type Department Care Team Description 06/02/2024 Transcribe Orders eD Incoming Referrals [phone] Karie Lindsey, INSERTING MACHINE OPERATOR Syringomyelia and syringobulbia 05/27/2024 Ancillary Procedure Radiology Library at [place] [address] Karie Lindsey, INSERTING MACHINE OPERATOR 04/29/2024 Ancillary Procedure Radiology [facility] at [facility] [place] [address] Karie Lindsey, INSERTING MACHINE OPERATOR 04/11/2024 Transcribe Orders eDH Incoming Referrals [phone] Karie Lindsey, INSERTING MACHINE OPERATOR Type 1 diabetes mellitus with hyperglycemia; Type 1 diabetes mellitus with diabetic polyneuropathy; Diabetic ketoacidosis without coma associated with type 2 diabetes mellitus 04/02/2024 Transcribe Orders eDH Incoming Referrals [phone] Karie Lindsey, INSERTING MACHINE OPERATOR Left arm pain 04/01/2024 Ancillary Procedure Radiology Library at [facility] [place] [address] Karie Lindsey, INSERTING MACHINE OPERATOR from Last 3 Months Immunizations Name Administration [...] of 2) 2024 Covid-19 Vaccine (1 - 2023- season) 2024 Influenza (Flu) vaccine (1 o f 1 - Influenza standard series) 04/03/2024 05/23/2019, 06/17/2007 Procedures Procedure Name Priority Date/Time Associated Diagnosis Comments MRI/MRA SCAN 06/09/2024 12:00 AM EST FILM LIBRARY STORAGE ONLY CT HEAD AND SPINE Routine 05/27/2024 12:00 AM EDT FILM LIBRARY STORAGE ONLY MR SPINE Routine 04/29/2024 12:00 AM EDT MRI/MRA SCAN 04/29/2024 12:00 AM EDT MRI/MRA SCAN 04/29/2024 12:00 AM EDT FILM LIBRARY STORAGE ONLY MR SPINE Routine 04/01/2024 12:00 AM EDT MRI/MRA SCAN 04/01/2024 12:00 AM EDT LAB SCAN 03/28/2024 12:00 AM EDT BASIC METABOLIC PANEL Routine 01/06/2022 4:20 AM EDT HC HEMOGLOBIN A1C Routine 01/04/2022 12: 50 AM EDT U ALBUMIN/CRE RATIO Routine 09/29/2017 1 1:30 AM EST 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 Anatomical Region Laterality Modality Other Narrative 06/09/2024 12:00 AM EST Ordered by an unspecified provider. Scanning Provider MEDIA MGR SCAN EXT O RDR/RSLT * Film Library- Storage Only CT Head And Spine (05/27/2024 12:00 AM EDT) Narrative [facility] - 06/09/2024 5:16 PM EST This exam is auto-finalizing. It's purpose is for storage only. Karie Lindsey INSERTING MACHINE OPERATOR IMG FILM LIBRARY ORD ERABLES Performing Organization Address City/[facility] de Phone Number [place], [place] * Film Library- Storage Only MR Spine (04/29/2024 12:00 AM EDT) Only the most recent of2 resultswithin the time period is included. Narrative [facility] - 06/09/2024 5:15 PM EST This exam is auto-finalizing. It's purpose is for storage only. Karie Lindsey INSERTING MACHINE OPERATOR IMG FILM LIBRARY ORD ERABLES Performing Organization Address [facility] Co de Phone Number [place], [place] * Scan Doc: Lab (03/28/2024 12:00 AM EDT) Narrative 03/28/2024 12:00 AM EDT Ordered by an unspecified provider. Scanning Provider MEDIA MGR SCAN EXT O RDR/RSLT * Basic Metabolic Panel (non-fasting) (01/06/2022 4:20 AM EDT) Glucose 123 65 - 199 mg/dL [facility] Comment:Diabetes: >=200 mg/d L plus symptoms Blood Urea Nitrogen 13 8 - 18 mg/dL [facility] Creatinine 0.77 0.70 - 1.20 mg/dL [facility] Sodium 137 135 - 145 mmol/L [facility] Potassium 4.0 3.5 - 5.0 mmol/L [facility] Comment: Please note: ??Patients with WBC >100,000 may have falsely elevated Potassium levels. ??For accurate Potassium quantification in these patients send serum separator tube (gold top) for subsequent determinations. ??Contact the Clinical Chemistry Laboratory if there are any questions. Chloride 102 98 - 107 mmol/L [facility] Carbon Dioxide 26 22 - 31 mmol/L [facility] Anion Gap 9 5 - 15 mmol/L [facility] Calcium 9.2 8.5 - 10.5 mg/dL [facility] Est Glomerular Filtration Rate 92 >=60 mL/min/1. 73 m?? [facility] Comment: This patient? s estimated [...] In Lab Ray Salomon MD CHEMISTRY ORDERABLES [facility] [place] [address] * (ABNORMAL) Hemoglobin A1c (01/04/2022 12:50 AM EDT) Hemoglobin A1c 8.0(H) 4.3 - 5.6 % [facility] Comment: Reference Range: 4.3 - [...] Mellitus, Diabetes Care 2013; 36: Suppl. 1, Q46-22 Estimated Average Glucose 183 mg/dL [facility] Comment: eAG equivalents for HbA1c [...] into estimated average glucose values. ??Diabetes Care 2008:31(8):5126-1913. Blood 01/04/2022 12:5 0 AM EDT 01/04/2022 1:24 AM EDT Narrative Resulting Agency Comment Spec In Lab Kane Ledezma MD CHEMISTRY ORDERABLES [facility] [place] [address] * U Albumin/Cre Ratio (09/29/2017 11:30 AM EST) Albumin / Creatinin Ratio, Urine 8 0 - 29 mcg/mg Cr [facility] Comment: Reference Ranges: <30 mcg/mg: [...] 2, 357? 362 Albumin, Urine 3.3 mg/L [facility] Creatinine, Urine 42 mg/dL [facility] Urine specimen (specimen) 09/29/2017 11:30 AM EST 09/29/2017 11:40 AM EST Narrative Resulting Agency Comment Spec In Lab Francoise Tan APRN URINE ORDERABLES [facility] [place] [address] from Last 3 Months or Most Recently Relevant to Health Maintenance Advance Directives * Attempt Cardiopulmonary Resuscitation - Inpatient (Latest Code Status on File) Date Activated Date Inactivated Comments 01/03/2022 11:15 PM 01/06/2022 5:03 PM Question Answer Comments Code Status decision made by: Patient Care Teams Children'S Nursery Assistant Relationship Specialty Start Date End Date Karie Lindsey APRN [address] [place] [address] PCP - General Internal Medicine 04/02/24
--- OUTSIDE RECORDS SUMMARY | 2024-06-17 14:47 | XMS_ITS | Encounter Summary ---
Author Organization [facility] Address [facility] [place] [address] Care Team Providers Care Drapery Worker Name Role Phone Jose Pittman Primary Care Provider + [phone] Reason for Referral * Consultation (Routine) - Closed Specialty Diagnoses / Procedures Referred By Chip sebastian Referred To Contact Otolaryngology Diagnoses 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 of right ear Tiffnaie Lucero APRN [address] [place] [address] [place] [address] Tj Gray MD [facility] [address] Referral ID Status Reason Start Date Expiration Date V isits Requested Visits Authorized [id number] Closed Consult, Test & Treat PCP Updated and/or Approved 08/05/2023 01/02/2024 6 6 Encounter Details Date Type Department Care Team (Latest Contact Info) Description 08/11/2023 Transcribe Orders eDH Incoming Referrals [phone] Tiffanie Lucero APRN [address] [place] [address] [place], [place] [id number] Mixed conductive and sensorineural hearing loss of [...] ear documented in this encounter Care Teams Drapery Worker Relationship Specialty Start Date End Date Jose Pittman PA [address] [place] [address] PCP - General Internal Medicine 01/30/22 04/01/24 documented as of this encounter
--- OUTSIDE RECORDS SUMMARY | 2024-06-17 14:48 | XMS_ITS | Encounter Summary ---
Author Organization [facility] Address [facility] [place] [address] Care Team Providers Care Applications Architect Name Role Phone Felisha Juan APRN Primary Care Provider + [phone] Encounter Details Date Type Department Care Team (Latest Contact Info) Description 04/18/2016 9:30 AM EDT Office [place] [address] Rosie Tao MD [facility] DR ENDOCRIN[place] [address] Type 1 diabetes mellitus with proliferative diabetic [...] management and to provide a review of alf diabetes care. Diabetes History: Kailey Hernandez has had diabetes Type 1 since age of 7 years. When initially diagnosed, she was extremely fatigued, had polyuria, weight loss, and polydypsia. She was followed by an principal electrical engineer- Dr Hernandez in [place], [place]. She is here for establishment of care since she has moved to [facility]. Her last visit was [...] in 4 weeks, RTC in 4 months long term care administrator diabetes care: Medications - Outpatient treatment regimen recommendations pending based on the hospital course. Monitoring - continue BG tid ac & hs Diet - low fat/low carb diet Exercise - weight-bearing exercise 30 min/day, as tolerated Thank you for the consult To be D/w Dr Ann, this was a resident only encounter Rosie Tao MD Endocrine Fellow Pager- [phone] Insulin Discharge Instructions . Instructions for Lantus [...] day to have your insulin doses adjusted. [facility] Endocrine clinic office * Carlos Ann MD [...] uncontrolled documented in this encounter Care Teams Applications Architect Relationship Specialty Start Date End Date Felisha Juan, DEMETRIS [address] [place] [address] PCP - General Family Medicine 10/29/15 01/29/22 documented as of this encounter
--- OUTSIDE RECORDS SUMMARY | 2024-06-17 14:48 | XMS_ITS | Encounter Summary ---
Author Organization [facility] [place] [address] Care Team Providers Care Metal Tank Erector Name Role Phone Felisha Juan APRN Primary Care Provider + [phone] Encounter Details Date Type Department Care Team (Late st Contact Info) Description 07/30/2017 Notes Only Endocrinology at [facility] [place] [address] Huong Ovalle, RN Social History Tobacco Use [...] filedocumented in this encounter Care Teams Metal Tank Erector Relationship Specialty Start Date End Date Felisha Juan APRN [address] [place] [address] PCP - General Family Medicine 10/29/15 01/29/22 documented as of this encounter
--- OUTSIDE RECORDS SUMMARY | 2024-06-17 14:48 | XMS_ITS | Encounter Summary ---
Author Organization [facility] [place] [address] Care Team Providers Care Fisheries Inspector Name Role Phone Felisha Juan APRN Primary Care Provider Encounter Details Date Type Department Care Team (Late st Contact Info) Description 11/12/2017 Telephone Endocrinology at [facility] [place] [address] Danielle Trejo, GUSTAVO Social History Tobacco Use [...] nurse. Boyfriend wants patient's [place] ref[place] rather than [facility]. documented in this encounter Plan of Treatment Not on file documented as of this encounter Visit Diagnoses Not on filedocumented in this encounter Care Teams Fisheries Inspector Relationship Specialty Start Date End Date Felisha Juan APRN [address] [place] [address] PCP - General Family Medicine 10/29/15 01/29/22 documented as of this encounter
--- OUTSIDE RECORDS SUMMARY | 2024-06-17 14:48 | XMS_ITS | Encounter Summary ---
Author Organization [facility] Address [facility] [place] [address] Care Team Providers Care Ecological Economist Name Role Phone Yessica Felisha LEGAL FINANCIAL SPECIALIST Primary Care Provider Encounter Details Date Type Department Care Team (Late st Contact Info) Description 11/21/2020 Orders [place] [address] Carlos Ann MD [facility] [place] [address] Controlled type 1 diabetes mellitus with retinopathy [...] severity documented in this encounter Care Teams Ecological Economist Relationship Specialty Start Date End Date Felisha Juan APRN [address] [place] [address] PCP - General Family Medicine 10/29/15 01/29/22 documented as of this encounter
--- OUTSIDE RECORDS SUMMARY | 2024-06-17 14:48 | XMS_ITS | Encounter Summary ---
Author Organization [facility]ly [facility] Address [facility] [place] [address] Care Team Providers Care Neuroradiologist Name Role Phone Felisha Juan DEMETRIS Primary Care Provider + [phone] Encounter Details Date Type Department Care Team (Latest Contact Info) Description 05/23/2019 8:30 AM EDT Office [place] [address] Francoise Tan APRN [facility] [place] [address] Type 1 diabetes mellitus with proliferative retinopathy [...] hypoglycemia and avoid severe hyperglycemia. She uses [employer] talking meter. Diabetes regimen: Basaglar 22 units [...] office visit with 28 minutes spent counseling [id number] with patient in themanagement of glucose levels, reviewing prevention and treatment of hypoglycemia. She does rotate her injection sites. 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
--- OUTSIDE RECORDS SUMMARY | 2024-06-17 14:48 | XMS_ITS | Encounter Summary ---
Author Organization [facility] [place] [address] Care Team Providers Care Matrix Worker Name Role Phone Felisha Juan APRN Primary Care Provider + [phone] Encounter Details Date Type Department Care Team (Latest Contact Info) Description 08/22/2016 9:00 AM EST Laboratory Appointment Lab at [facility] [place] [address] Type 1 diabetes mellitus with retinopathy Social [...] Urine 17 0 - 29 mcg/mg Cr [facility] 2, 357? 362 Albumin, Urine 12.4 mg/L [facility] Creatinine, Urine 75 mg/dL [facility] Urine specimen (specimen) 08/22/2016 9:06 AM EST 08/22/2016 9:20 AM EST Narrative Resulting Agency Comment Spec In Lab Olegario Wright DO URINE ORDERABLES [facility] [place] [address] * Lipid panel (fasting) (08/22/2016 8:51 AM EST) Cholesterol, Total 129 <=239 mg/dL [facility] Triglyceride 56 <=199 mg/dL [facility] HDL Cholesterol 55 >=40 mg/dL [facility] LDL Cholesterol 63 <=190 mg/dL [facility] Cholesterol/HDL Ratio 2.3 ratio [facility] Lipid Interpretation See Note [facility] Comment: Lipid management should be guided by a patient? s ASCVD risk, goals and preferences. ACC/AHA Guidelines recommend high intensity statin if clinical ASCVD or LDL greater than or equal to 190 mg/dL. http://circ.ahajournals.org/content/early/.cir.2302911703.95757.7a Adults aged 40-75 with LDL 70-189 mg/dL should have their 10 year ASCVD risk estimated with the ACC/AHA ASCVD risk iron guardrail installer http://tools.acc.org/CKUXS-Syqk-Ipsssuecj/ Statin should be discussed if risk greater [...] In Lab Olegario Wright DO CHEMISTRY ORDERABLES [facility] [place] [address] * (ABNORMAL) Hemoglobin A1c (08/22/2016 8:51 AM EST) Hemoglobin A1c 7.4(H) 4.3 - 5.6 % [facility] [...] Mellitus, Diabetes Care 2013; 36: Suppl. 1, K47-83 Estimated Average Glucose 166 mg/dL [facility] Comment: eAG [...] resources are available on the ADA website: http://MoFuse.Sina/DHMCadacalc Tj JESSICA, Mal J, Bk R, et al. ??Translating the A1C assay into estimated average glucose values. ??Diabetes Care 2008:31(8):5931-6162. Blood specimen (specimen) 08/22/2016 8:51 AM EST 08/22/2016 8:58 AM EST Narrative Resulting Agency Comment Spec In Lab Olegario Wright DO CHEMISTRY ORDERABLES Performing Organization Address City/State/[facility] Co de Phone Number [facility] [place] [place] [address] documented in this encounter Visit Diagnoses Diagnosis Type 1 diabetes mellitus with retinopathy documented in this encounter Care Teams Matrix Worker Relationship Specialty Start Date End Date Felisha Juan APRN [address] [place] [address] PCP - General Family Medicine 10/29/15 01/29/22 documented as of this encounter
--- OUTSIDE RECORDS SUMMARY | 2024-06-17 14:48 | XMS_ITS | Encounter Summary ---
Author Organization [facility] Address [facility] [place] [address] Care Team Providers Care Gas Turbine Assembler Name Role Phone Felisha Juan APRN Primary Care Provider [phone] Reason for Visit * Reason Onset Date Comments Medication Refill 10/09/2020 Encounter Details Date Type Department Care Team (Late st Contact Info) Description 10/09/2020 Refill [place] [address] Breana Tee MD [facility] [place] [address] Controlled type 1 diabetes mellitus with retinopathy [...] 8:24 AM EST Script needs to go [employer] [address] [facility] Office [address] [place] [phone] Patient test 6 times daily Transfer from previous [facility] Provider documented in this encounter Plan of Treatment Not on file documented as of this encounter Visit Diagnoses Diagnosis Controlled type 1 diabetes mellitus with retinopathy of both eyes, macular edema presence unspecified, unspecified retinopathy severity documented in this encounter Care Teams Gas Turbine Assembler Relationship Specialty Start Date End Date Felisha Juan APRN [address] [place] [address] PCP - General Family Medicine 10/29/15 01/29/22 documented as of this encounter
--- OUTSIDE RECORDS SUMMARY | 2024-06-17 14:48 | XMS_ITS | Encounter Summary ---
[place] [address] Care Team Providers Care Machine Burrer Name Role Phone Felisha Juan APRN Primary Care Provider + [phone] Reason for Visit * Reason Onset Date Comments Medication Refill 08/12/2017 Encounter Details Date Type Department Care Team (Late st Contact Info) Description 08/12/2017 Refill [place] [address] Ivette Hewitt V RN Controlled type 1 [...] severity documented in this encounter Care Teams Machine Burrer Relationship Specialty Start Date End Date Felisha Juan APRN [address] [place] [address] PCP - General Family Medicine 10/29/15 01/29/22 documented as of this encounter
--- OUTSIDE RECORDS SUMMARY | 2024-06-17 14:48 | XMS_ITS | Encounter Summary ---
Author Organization [facility] [place] [address] Care Team Providers Care Ssn/Ssbn Weapons Equipment Operator Name Role Phone Felisha Juan APRN Primary Care Provider [phone] Reason for Visit * Auth/Cert Specialty Diagnoses / Procedures Referred By Chip sebastian Referred To Contact Diagnoses STEMI (ST elevation myocardial infarction) STEMI Procedures CARDIAC CATHETERIZATION Ray Salomon MD [facility] [address] [address] [facility] Referral ID Status Reason Start Date Expiration Date Visits Re quested Visits Authorized [id number] 1 1 Encounter Details Date Type Department Care Team (Late st Contact Info) Description 01/03/2022 10:10 PM EDT - 01/03/2022 11:32 PM EDT Surgery Ball [place] [address] Moi Ledezma MD [facility] [address] CARDIAC CATHETERIZATION Social History Tobacco Use Types [...] Afua Rosales Patient Age: 46 y.o. Language: Surinamese Race: White Ethnicity: Not nor Admit date: [...] will need follow up with cardiology at [facility] as well as to establish care. Patient [...] made her nauseous. ?? On arrival to [facility], she was afebrile, BP was 95/54, she was oxygenating normally on room air. She was infused with 1L IV fluids, given 25 mg of aspirin (per [facility] discharge note). The on-call commercial cleaner at [facility] was contacted, she was given 300 mg of Plavix, aspirin, heparin with bolus and drip. She was also given tecteplase 35mg. ?? On arrival to [facility] clinical laboratory aides teacher, she underwent LHC and received TRACIE [...] for you to establish care with a business initiatives manager at [facility] as well as a referral to cardiac [...] appointments: During 8am-5pm Thursday through Thursday call [phone] to speak with a nurse in the cardiology clinic All other times call [phone] and ask to speak to the commercial cleaner contract administrative assistant. Activity level: - No heavy lifting (more [...] none Follow up Appointments: No future appointments. Transportation Aide: You will be contacted by [facility] to schedule a cardiology appointment to establish care. PCP: Felisha Juan APRN at [phone] Your Inpatient Doctor(s) at [facility]: Ray Salomon MD - Attending physician Cam David MD - Seam Stayer physician Your Primary Care Provider: [address] / [facility] [address] For questions regarding issues relating to your hospitalization on the Hospital Medicine Service, please contact your inpatient physician through the [facility] Bias Cutter [phone]. Issues after hours and on weekends will be handled by the Hospitalist staff on-call. General Instructions None Future Appointments and Orders Future Orders Complete By Expires Referral to Cardiac Rehab [[id number] Custom] As directed Process Instructions: If no progress note charted, please enter Clinical details in comments. Scheduling Instructions: Questions: My question or request is: cardiac rehab referral s/p STEMI, she would benefit from location close to [facility] Referral to Cardiology [REF12 Custom] As directed Process Instructions: If no progress note charted, please enter Clinical details in comments. Scheduling Instructions: Questions: My question or request is: establish care after inferoposterior stemi Provider Contact Information: [address] / [facility] [address] Discharge References/Attachments: Discharge References/Attachments None Associated attestation - Ray Salomon MD - 01/06/2022 1:51 PM EDT Dear Colleagues, I was the attending at the time of discharge. Please call or email me if you have questions. Ray Salomon MD, [facility] [phone] documented in this encounter Discharge Instructions * [...] for you to establish care with a business initiatives manager at [facility] as well as a referral to cardiac [...] appointments: During 8am-5pm Thursday through Thursday call [phone] to speak with a nurse in the cardiology clinic All other times call [phone] and ask to speak to the commercial cleaner contract administrative assistant. Activity level: - No heavy lifting (more [...] none Follow up Appointments: No future appointments. Transportation Aide: You will be contacted by [facility] to schedule a cardiology appointment to establish care. PCP: Felisha Juan APRN at [phone] Your Inpatient Doctor(s) at [facility]: Ray Salomon MD - Attending physician Cam David MD - Seam Stayer physician Your Primary Care Provider: Felisha Juan APRN [phone] / [facility] [address] For questions regarding issues relating to your hospitalization on the Hospital Medicine Service, please contact your inpatient physician through the [facility] Bias Cutter [phone]. Issues after hours and on weekends will [...] as of this encounter Progress Notes * jT Berry, RN - 01/06/2022 2:59 PM EDT Afuadagoberto Rosales discharged. Tele/IV removed. AVS and medication changes reviewed, questions answeredand verbalized understanding. Prescriptions to be picked up from outside pharmacy. Pt left floor via wheelchair and departed by hospital arranged transport. * Portia Larson - 01/06/2022 12:37 PM EDTSummary: Transport d/c detail Patient transport has been arranged through [facility]. Nilda will be arriving in a [...] CHO control level 2 Elba Pavon APRN [facility] Endocrinology Diabetes Management Pager [phone] minutes of this 35 minute visit [...] Cuff Relevant medications: noted Last Bowel Movement: (ANIMAL EVISCERATOR) Admit Weight: 66.1 kg Estimated body mass index is 22.86 kg/m?? as calculated from the following: Height as of this encounter: 165.1 cm (5' 5). Weight as of this encounter: 62.3 kg (137 lb 5.6 oz). Hemphill Body Weight: 125 lbs / 56.7 kg [...] up while inpatient Phuong Clements RD Pager #:[phone] * Ray Salomon MD - 01/06/2022 6:54 AM EDT Images from the original note were not included. Inpatient Cardiology Progress Note Patient info: Name: Afua Rosales : 1975 PCP: Felisha Juan APRN PCP phone number: [phone] Date of Admission: 01/03/2022 ( Hospital Day 3 days ) Attending:Ray Salomon MD ID: Afua Rosales is a 46 y.o. 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 She presents with inferior STEMI and is now s/p PCI with TRACIE x2 to RCA. Hospital Day3 24 Hour Events/Subjective: - JOMAR ROJASS - pharmacy is [facility] in [facility], BF can pickling operator at 6 pm when neighbor's car [...] Procedure Component Value Units Date/Time COVID-19 PCR [[id number]] Collected: 01/04/22 0050 Lab Status: Final result [...] diagnosis of COVID-19 is performed using the KIT digitala COVID-19 Direct Assay by SpineVision as authorized by the FDA issued Emergency [...] Department of Pathology and Laboratory Medicine at [facility], certified under the Clinical Laboratory Improvement [...] fact sheets at the following FDA website: https://www.fda.gov/medical-devices/xqokhpjviwz-vjljdfe-3883-lfons-50-jarifliqy- cie-ldekovujgkgxlq-wvlsfxb-devices/czvms-suustmjltzt-cary SARS-CoV-2 Source [employer] [facility] Swab Imaging: No results found for this [...] David MD Internal Medicine, PGY-1 Cardiology, S2 (2313) 01/06/22 Cardiology Staff Addendum Afua Rosales is [...] Sky ? Lucia Alexander Endocrinology Fellow Pager [phone] I have seen the patient and reviewed [...] PCP: Felisha Juan APRN PCP phone number: [phone] Date of Admission: 01/03/2022 ( Hospital Day [...] Procedure Component Value Units Date/Time COVID-19 PCR [[id number]] Collected: 01/04/22 005 Lab Status: Final result [...] using the Simplexa COVID-19 Direct Assay by SpineVision as authorized by the FDA issued Emergency [...] Department of Pathology and Laboratory Medicine at [facility], certified under the Clinical Laboratory Improvement [...] fact sheets at the following FDA website: https://www.fda.gov/medical-devices/rsjujdfsfrc-hezmbwy-3283-bntjp-83-ulkabciqg- tor-dkecfyrbpjemkt-afzeuny-devices/ofyje-cqqyvakopoo-uarf SARS-CoV-2 Source [employer] Swab Imaging: No results found for this [...] Clark MD - 01/04/2022 3:25 AM EDT [facility] TeleICU Initial Assessment Note I established audio/visual communication with the patient's room, reviewed the eDH. History and Assessment: 46 y.o. 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 STEMIalert activated and went to clinical laboratory aides teacher where proximal and mid RCA stents [...] injection 5,000 Units, 5,000 Units, Subcutaneous, Q8H [facility], Sumanth Barnard MD, 5,000 Units at 01/04/22114 [...] mg, 12.5 mg, Oral, Q8H [facility], Sumanth Barnard MD ??? clopidogreL (Plavix) tablet [...] PCP: Felisha Juan APRN PCP phone number: [phone] Date of Admission: 01/03/2022 ( Hospital Day [...] previously made her nauseous. On arrival to [facility], she was afebrile, BP was 95/54, she was oxygenating normally on room air. She was infused with 1L IV fluids, given 25 mg of aspirin (per [facility] discharge note). The on-call commercial cleaner at [facility] was contacted, she was given 300 mg of Plavix, aspirin, heparin with bolus and drip. She was also given tecteplase 35mg. On arrival to [facility] clinical laboratory aides teacher, she underwent LHC and received TRACIE [...] COVID test: Lab Results Component Value Date [id number] Not Detected 01/04/2022 Past medical History: No [...] 180 days) Any patient receiving care at [facility] must abide by [place] law. The hierarchy [...] (i) The agent with financial power of district attorney or a conservator appointed in accordance [...] confirmed as: [address] [facility] [address] Social & Family Supports: All names listed below confirmed with patient as current and correct Extended Emergency Contact Information Primary Emergency Contact: Delano Reyna [facility] Mobile Relation: Friend Current Care Provided by: [...] MEDICAID [place] Prescription Coverage: Yes Preferred Pharmacy: [id number] - [place], [place] - [address] [facility] [address] [facility] [address] [facility] - [facility], [place] - [address] [facility] [address] [facility] [address] [place] Status: Patient is a : No Primary Care Provider: Felisha Juan APRN [phone] Patient/Caregiver Goals of Treatment: To go home Potential Needs for Transition of Care: none Agency Referrals: None anticipated Transportation: other (see comments) (Needs ride home generally take the free transfer bus in her home town for groceries) Transportation Anticipated: health plan transportation Concerns to be Addressed: discharge planning Assessment: Patient is admitted to *[facility] service for STEMI Plan: Home today with a medicaid ride / RS to confirm when ride is obtained A member of the Care Management team will continue to monitor progress, follow for continuity of care and assist with transition of care planning. Office of Care Management Surgery Team Anvil Seating Press Operator [email or web address] Pager [phone] * Consult Note - Mark Sky [...] management and to provide a review of fdc diabetescare. Diabetes History: Afua Rosales has had [...] meal) 4. Carb controlled diet level 2 halfway diabetes care: Medications - Outpatient treatment regimen recommendations pending based on the hospital course. Monitoring - continue BG check q4 hours for now Diet - low fat/low carb diet Exercise - weight-bearing exercise 30 min/day, as tolerated Thank you for allowing us to provide care for your patient. Discussed with Dr. Asya Alexander Endocrinology Fellow Pager [phone] I have seen the patient and reviewed [...] 01/04/2022 1:44 AM EDT RAPID COVID-19 PCR ([facility]) Routine 01/04/2022 12:50 AM EDT HEMOGRAM [...] Glucose, POC 197 65 - 199 mg/dL [facility] Comment: Supplemental ranges: <140 mg/dL before meals <180 mg/dL all other times of the day Blood 01/06/2022 2:32 PM EDT 01/06/2022 2:32 PM EDT Ray Salomon MD POINT OF CARE TEST O MUSHTAQ Performing Organization Address City/[facility]/ZIP Co de Phone Number [facility] [place] [address] * (ABNORMAL) POCT Glucose (01/06/2022 11:47 AM EDT) Glucose, POC 299(H) 65 - 199 mg/dL [facility] Comment: Supplemental ranges: <140 mg/dL before meals <180 mg/dL all other times of the day Blood 01/06/2022 11:4 7 AM EDT 01/06/2022 11:47 AM EDT Ray Salomon MD POINT OF CARE TEST O MUSHTAQ [facility] [place] [address] * POCT Glucose (01/06/2022 8:01 AM EDT) Glucose, POC 142 65 - 199 mg/dL [facility] Comment: Supplemental ranges: <140 mg/dL before meals <180 mg/dL all other times of the day Blood 01/06/2022 8:01 AM EDT 01/06/2022 8:01 AM EDT Ray Salomon MD POINT OF CARE TEST O RDERABLES [facility] [place] [address] * Differential, Automated (01/06/2022 4:20 AM EDT) [facility] Neutrophil % 51.9 % [facility] Neutrophil Absolute 3.34 1.70 - 6.10 x10(3)/[facility] LAB[facility]ATORY Lymph % 32.5 % [facility] Lymphocytes Abs 2.1 0.9 - 3.2 x10(3)/[facility]ORATORY Monocyte % 13.7 % [facility] Monocyte Abs 0.9 0.3 - 0.9 x10(3)/[facility] LABORATORY Eos % 1.1 % [facility] Eosinophils Abs 0.1 0.0 - 0.4 x10(3)/[facility]ORY Basophil % 0.6 % [facility] Baso Absolute 0.0 0.0 - 0.1 x10(3)/[facility] LABORATORY Immature Gran % 0.20 % [facility] Comment: Immature granulocytes(IG's)percentage and absolute count will include metamyelocytes, myelocytes, and promyelocytes. Blood smears from CBCs yielding IG's will be scanned manually for concordance. If this scan disagrees with the automated IG or if promyelocytes are noted, a manual differential will be performed. Immature Gran Absolute 0.01 0.00 - 0.04 x10(3)/[facility] LABORATORY Blood 01/06/2022 4:20 AM EDT 01/06/2022 4:39 AM EDT Narrative Resulting Agency Comment Spec In Lab Cam David MD HEMATOLOGY ORDERABLE S [facility] [place] [address] * (ABNORMAL) Hemogram (01/06/2022 4:20 AM EDT) White Blood Cell 6.4 4.0 - 9.5 x10(3)/mc L [facility] Red Blood Cell 3.86(L) 4.00 - 5.21 x10(6)/mc L [facility] Hemoglobin 12.4 11.7 - 15.5 g/dL [facility] Hematocrit 36.0 35.7 - 45.8 % [facility] Mean Cell Volume 93.3 82.6 - 94.4 fL [facility] Mean Cell Hemoglobin 32.1(H) 27.1 - 32.0 pg [facility] Mean Cell Hemoglobin Concentration 34.4 31.7 - 35.0 g/dL [facility] Platelet 177 145 - 357 x10(3)/mc L [facility] RDW Standard Deviation 42.0 37.0 - 46.0 [facility]ATORY RDW coefficient of variation 12.1 11.5 - 14.1 % [facility] Mean Platelet Volume 10.0 7.6 - 12.9 fL [facility] NRBC% auto 0.0 % [facility] NRBC Absolute 0.000 0.000 - 0.000 x10(3)/mc L [facility] Blood 01/06/2022 4:20 AM EDT 01/06/2022 4:39 AM EDT Narrative Resulting Agency Comment Spec In Lab Cam David MD HEMATOLOGY ORDERABLE S [facility] [place] [address] * Basic Metabolic Panel (non-fasting) (01/06/2022 4:20 AM EDT) Glucose 123 65 - 199 mg/dL [facility] Comment:Diabetes: >=200 mg/d L plus symptoms Blood Urea Nitrogen 13 8 - 18 mg/dL [facility] Creatinine 0.77 0.70 - 1.20 mg/dL [facility] Sodium 137 135 - 145 mmol/L [facility] Potassium 4.0 3.5 - 5.0 mmol/L [facility] Comment: Please note: ??Patients with WBC >100,000 may have falsely elevated Potassium levels. ??For accurate Potassium quantification in these patients send serum separator tube (gold top) for subsequent determinations. ??Contact the Clinical Chemistry Laboratory if there are any questions. Chloride 102 98 - 107 mmol/L [facility] Carbon Dioxide 26 22 - 31 mmol/L [facility] Anion Gap 9 5 - 15 mmol/L [facility] Calcium 9.2 8.5 - 10.5 mg/dL [facility] Est Glomerular Filtration Rate 92 >=60 mL/min/1. 73 m?? [facility] Comment: This patient? s estimated [...] Salomon MD CHEMISTRY ORDERABLES Performing Organization Address [facility]/ZIP Co de Phone Number [facility] [place] [address] * POCT Glucose (01/06/2022 3:46 AM EDT) Glucose, POC 129 65 - 199 mg/dL [facility] Comment: Supplemental ranges: <140 mg/dL before meals <180 mg/dL all other times of the day Blood 01/06/2022 3:46 AM EDT 01/06/2022 3:46 AM EDT Ray Salomon MD POINT OF CARE TEST O RDERABLES Performing Organization Address [facility] Co de Phone Number [facility] [place] [address] * POCT Glucose (01/06/2022 12:06 AM EDT) Glucose, POC 125 65 - 199 mg/dL [facility] Comment: Supplemental ranges: <140 mg/dL before meals <180 mg/dL all other times of the day Blood 01/06/2022 12:0 6 AM EDT 01/06/2022 12:06 AM EDT Ray Salomon MD POINT OF CARE TEST O RDERAFRANKLIN Performing Organization Address [facility]/ZIP Co de Phone Number [facility] [place] [address] * (ABNORMAL) POCT Glucose (01/05/2022 8:11 PM EDT) Glucose, POC 220(H) 65 - 199 mg/dL [facility] Comment: Supplemental ranges: <140 mg/dL before meals <180 mg/dL all other times of the day Blood 01/05/2022 8:11 PM EDT 01/05/2022 8:11 PM EDT Ray Salomon MD POINT OF CARE TEST O RDERABLES Performing Organization Address City/[facility]/ZIP Co de Phone Number [facility] [place] [address] * POCT Glucose (01/05/2022 6:00 PM EDT) Glucose, POC 190 65 - 199 mg/dL [facility] Comment: Supplemental ranges: <140 mg/dL before meals <180 mg/dL all other times of the day Blood 01/05/2022 6:00 PM EDT 01/05/2022 6:00 PM EDT Ray Salomon MD POINT OF CARE TEST O RDERAFRANKLIN Performing Organization Address City/[facility]/ZIP Co de Phone Number [facility] [place] [address] * POCT Glucose (01/05/2022 3:53 PM EDT) Glucose, POC 161 65 - 199 mg/dL [facility] Comment: Supplemental ranges: <140 mg/dL before meals <180 mg/dL all other times of the day Blood 01/05/2022 3:53 PM EDT 01/05/2022 3:53 PM EDT Ray Salomon MD POINT OF CARE TEST O RDERAFRANKLIN Performing Organization Address City/[facility]/ZIP Co de Phone Number [facility] [place] [address] * (ABNORMAL) Differential, Automated (01/05/2022 11:45 AM EDT) Neutrophil % 65.9 % [facility] Neutrophil Absolute 4.46 1.70 - 6.10 x10(3)/mc L [facility] Lymph % 19.0 % [facility] Lymphocytes Abs 1.3 0.9 - 3.2 x10(3)/mc L [facility] Monocyte % 14.2 % [facility] Monocyte Abs 1.0(H) 0.3 - 0.9 x10(3)/[facility] LABORATORY Eos % 0.1 % [facility] Eosinophils Abs 0.0 0.0 - 0.4 x10(3)/[facility] LABORATORY Basophil % 0.4 % [facility] Baso Absolute 0.0 0.0 - 0.1 x10(3)/[facility] LABORATORY Immature Gran % 0.40 % [facility] Comment: Immature granulocytes(IG's)percentage and absolute count will include metamyelocytes, myelocytes, and promyelocytes. Blood smears from CBCs yielding IG's will be scanned manually for concordance. If this scan disagrees with the automated IG or if promyelocytes are noted, a manual differential will be performed. Immature Gran Absolute 0.03 0.00 - 0.04 x10(3)/[facility] LABORATORY Blood 01/05/2022 11:4 5 AM EDT 01/05/2022 12:08 PM EDT Narrative Resulting Agency Comment Spec In Lab Cam David MD HEMATOLOGY ORDERABLE S [place] [place] [address] * (ABNORMAL) Hemogram (01/05/2022 11:45 AM EDT) White Blood Cell 6.8 4.0 - 9.5 x10(3)/[facility] LABORATORY Red Blood Cell 3.92(L) 4.00 - 5.21 x10(6)/ L [facility] Hemoglobin 12.5 11.7 - 15.5 g/dL [facility] Hematocrit 36.4 35.7 - 45.8 % [facility] Mean Cell Volume 92.9 82.6 - 94.4 fL [facility] Mean Cell Hemoglobin 31.9 27.1 - 32.0 pg [facility] Mean Cell Hemoglobin Concentration 34.3 31.7 - 35.0 g/dL [facility] Platelet 187 145 - 357 x10(3)/mc L [facility] RDW Standard Deviation 41.9 37.0 - 46.0 fL [facility] RDW coefficient of variation 12.3 11.5 - 14.1 % [facility] Mean Platelet Volume 10.4 7.6 - 12.9 fL [facility] NRBC% auto 0.0 % [facility] NRBC Absolute 0.000 0.000 - 0.000 x10(3)/mc L [facility] Blood 01/05/2022 11:4 5 AM EDT 01/05/2022 12:08 PM EDT Narrative Resulting Agency Comment Spec In Lab Cam David MD HEMATOLOGY ORDERABLE S [place] [address] * Basic Metabolic Panel (non-fasting) (01/05/2022 11:45 AM EDT) Glucose 140 65 - 199 mg/dL [facility] Comment:Diabetes: >=200 mg/d L plus symptoms Blood Urea Nitrogen 10 8 - 18 mg/dL [facility] Creatinine 0.75 0.70 - 1.20 mg/dL [facility] Sodium 137 135 - 145 mmol/L [facility] Potassium 3.9 3.5 - 5.0 mmol/L [facility] Comment: Please note: ??Patients with WBC >100,000 may have falsely elevated Potassium levels. ??For accurate Potassium quantification in these patients send serum separator tube (gold top) for subsequent determinations. ??Contact the Clinical Chemistry Laboratory if there are any questions. Chloride 101 98 - 107 mmol/L [facility] Carbon Dioxide 25 22 - 31 mmol/L [facility] Anion Gap 11 5 - 15 mmol/L [facility] Calcium 8.6 8.5 - 10.5 mg/dL [facility] Est Glomerular Filtration Rate 95 >=60 mL/min/1. 73 m?? [facility] Comment: This patient? s estimated [...] Salomon MD CHEMISTRY ORDERABLES Performing Organization Address [facility] Co de Phone Number [facility] [place] [address] * POCT Glucose (01/05/2022 11:40 AM EDT) Glucose, POC 148 65 - 199 mg/dL [facility] Comment: Supplemental ranges: <140 mg/dL before meals <180 mg/dL all other times of the day Blood 01/05/2022 11:4 0 AM EDT 01/05/2022 11:40 AM EDT Ray Salomon MD POINT OF CARE TEST O RDERABLES Performing Organization Address City/[facility]/ZIP Co de Phone Number [facility] [place] [address] * EKG 12 Lead (01/05/2022 8:23 AM EDT) Ventricular rate 78 BPM MUSE SYSTEM Atrial Rate 78 BPM MUSE SYSTEM P-R Interval 132 ms MUSE SYSTEM QRS Duration 106 ms MUSE SYSTEM Q-T Interval 364 ms MUSE SYSTEM QTC Calculated (Bezet) 414 ms MUSE SYSTEM Calculated P [place] 78 degrees MUSE SYSTEM Calculated R [place] -65 degrees MUSE SYSTEM Calculated T [place] -33 degrees MUSE SYSTEM INTERPRETATION Normal sinus rhythm Left axis deviation Incomplete right bundle branch block Cannot rule out Inferior infarct , age undetermined Abnormal ECG When compared with ECG of 04-JAN-2022 00:45, Incomplete right bundle branch block is now Present Minimal criteria for Inferior infarct are now Present Confirmed by Storm Lewis ([id number]) on 01/05/2022 3:44:16 PM MUSE SYSTEM 01/05/2022 8:23 AM EDT 01/05/2022 3:44 PM EDT Ray Salomon MD ECG ORDERABLES Performing Organization Address City/[facility]/ZIP Co de Phone Number MUSE SYSTEM * (ABNORMAL) POCT Glucose (01/05/2022 7:43 AM EDT) Glucose, POC 213(H) 65 - 199 mg/dL [facility] Comment: Supplemental ranges: <140 mg/dL before meals <180 mg/dL all other times of the day Blood 01/05/2022 7:43 AM EDT 01/05/2022 7:43 AM EDT Ray Salomon MD POINT OF CARE TEST O RDERABLES Performing Organization Address City/[facility]/ZIP Co de Phone Number [facility] [place] [address] * (ABNORMAL) POCT Glucose (01/05/2022 6:45 AM EDT) Glucose, POC 214(H) 65 - 199 mg/dL [facility] Comment: Supplemental ranges: <140 mg/dL before meals <180 mg/dL all other times of the day Blood 01/05/2022 6:45 AM EDT 01/05/2022 6:45 AM EDT Ray Salomon MD POINT OF CARE TEST O RDERABLES Performing Organization Address City/[facility]/ZIP Co de Phone Number [facility] [place] [address] * POCT Glucose (01/05/2022 5:31 AM EDT) Glucose, POC 89 65 - 199 mg/dL [facility] Comment: Supplemental ranges: <140 mg/dL before meals <180 mg/dL all other times of the day Blood 01/05/2022 5:31 AM EDT 01/05/2022 5:31 AM EDT Ray Salomon MD POINT OF CARE TEST O RDERABLES Performing Organization Address [facility] Co de Phone Number [facility] [place] [address] * (ABNORMAL) POCT Glucose (01/05/2022 5:09 AM EDT) Glucose, POC 59(L) 65 - 199 mg/dL [facility] Comment: Supplemental ranges: <140 mg/dL before meals <180 mg/dL all other times of the day Blood 01/05/2022 5:09 AM EDT 01/05/2022 5:09 AM EDT Ray Salomon MD POINT OF CARE TEST O RDERAFRANKLIN Performing Organization Address [facility]/ZIP Co de Phone Number [facility] [place] [address] * POCT Glucose (01/05/2022 12:45 AM EDT) Glucose, POC 96 65 - 199 mg/dL [facility] Comment: Supplemental ranges: <140 mg/dL before meals <180 mg/dL all other times of the day Blood 01/05/2022 12:4 5 AM EDT 01/05/2022 12:45 AM EDT Ray Salomon MD POINT OF CARE TEST O RDERAFRANKLIN Performing Organization Address City/[facility]/ZIP Co de Phone Number [facility] [place] [address] * POCT Glucose (01/04/2022 7:28 PM EDT) Glucose, POC 104 65 - 199 mg/dL [facility] Comment: Supplemental ranges: <140 mg/dL before meals <180 mg/dL all other times of the day Blood 01/04/2022 7:28 PM EDT 01/04/2022 7:28 PM EDT Ray Salomon MD POINT OF CARE TEST O RDERAFRANKLIN Performing Organization Address [facility] Co de Phone Number [facility] [place] [address] * POCT Glucose (01/04/2022 4:04 PM EDT) Glucose, POC 190 65 - 199 mg/dL [facility] Comment: Supplemental ranges: <140 mg/dL before meals <180 mg/dL all other times of the day Blood 01/04/2022 4:04 PM EDT 01/04/2022 4:04 PM EDT Ray Salomon MD POINT OF CARE TEST O SANDEEPERAFRANKLIN Performing Organization Address City/[facility]/ZIP Co de Phone Number [facility] [place] [address] * POCT Glucose (01/04/2022 12:09 PM EDT) Glucose, POC 157 65 - 199 mg/dL [facility] Comment: Supplemental ranges: <140 mg/dL before meals <180 mg/dL all other times of the day Blood 01/04/2022 12:0 9 PM EDT 01/04/2022 12:09 PM EDT Ray Salomon MD POINT OF CARE TEST O RDERABLES [facility] [address] [place] [address] * ECHO COMPLETE W CONTRAST (01/04/2022 11:08 AM EDT) EF 60 HEARTLAB SYSTEM Anatomical Region Laterality Modality Cardiac Other 01/04/2022 10:3 3 AM EDT Narrative 01/04/2022 11:25 AM EDT [facility] ?[address] ? [place] [address] ?Voice: ?Fax: ? Echocardiogram Report Name: AFUA ROSALES ? Study Date: 01/04/2022 10:33 AM ? Patient Location: [facility] A : 1975 ? Height: 65 in ? Account: [id number] Age: 46 yrs ? Weight: 148 lb Gender: Female ?BSA: 1.7 m2 Ordering Physician: MOI LEDEZMA Referring Physician: MT VALENZUELA Exam Location: [facility]. Interpretation Summary Technically difficult. Left ventricular [...] jet. There is no valve disease. Procedure Complete-15754. Image enhancement Optison was used for left [...] Aneurysmal ?15-16 ?? diffuse Procedure Note Ray Slaomon MD - 01/04/2022 [place] [address] Voice: Fax: Echocardiogram Report Name: AFUA ROSALES Study Date: :33 AM Patient Location: [address] : 1975 Height: 65 in Account: [id number] Age: 46 yrs Weight: 148 lb Gender: Female BSA: 1.7 m2 Ordering Physician: MOI LEDEZMA Referring Physician: MT VALENZUELA Exam Location: [facility]. Interpretation Summary Technically difficult. Left ventricular [...] jet. There is no valve disease. Procedure Complete-65867. Image enhancement Optison was used for left [...] Glucose, POC 100 65 - 199 mg/dL [facility] Comment: Supplemental ranges: <140 mg/dL before meals <180 mg/dL all other times of the day Blood 01/04/2022 10:0 5 AM EDT 01/04/2022 10:05 AM EDT Ray Salomon MD POINT OF CARE TEST O RDERABLES [facility] [place] [address] * POCT Glucose (01/04/2022 8:23 AM EDT) Glucose, POC 72 65 - 199 mg/dL [facility] Comment: Supplemental ranges: <140 mg/dL before meals <180 mg/dL all other times of the day Blood 01/04/2022 8:23 AM EDT 01/04/2022 8:23 AM EDT Moi Ledezma MD POINT OF CARE TEST O RDERABLES [facility] [address] * POCT Glucose (01/04/2022 5:03 AM EDT) Glucose, POC 143 65 - 199 mg/dL [facility] Comment: Supplemental ranges: <140 mg/dL before meals <180 mg/dL all other times of the day Blood 01/04/2022 5:03 AM EDT 01/04/2022 5:03 AM EDT Moi Ledezma MD POINT OF CARE TEST O MUSHTAQ Performing Organization Address [facility] Co de Phone Number [facility] [place] [address] * POCT Glucose (01/04/2022 3:01 AM EDT) Glucose, POC 182 65 - 199 mg/dL [facility] Comment: Supplemental ranges: <140 mg/dL before meals <180 mg/dL all other times of the day Blood 01/04/2022 3:01 AM EDT 01/04/2022 3:01 AM EDT Moi Ledezma MD POINT OF CARE TEST O MUSHTAQ Performing Organization Address [facility] Co de Phone Number [facility] [place] [address] * (ABNORMAL) BLOOD GAS 2 VENOUS (01/04/2022 1:44 AM EDT) pH, Venous 7.33 7.32 - 7.42 [facility] PCO2, Venous 45 41 - 51 mmHg [facility] PO2, Venous 52(H) 25 - 40 mmHg [facility] Bicarbonate, Venous 23.5 mmol/L [facility] Base Excess, Venous -2.7 mmol/L [facility] Hgb Blood Gas 13.1 11.7 - 15.5 g/dL [facility] Oxyhemoglobin, Venous 86.6 % [facility] Carboxyhemoglob in, Venous 0.3 % [facility] Comment: Nonsmokers: 0.5-1.5% COHB Smokers: Variable, but usually less than 10% Toxic: 20-30% COHB Lethal: Greater than 60% COHB Methemoglobin, Venous 0.8 <=1.5 % [facility] Na Whole Blood 134(L) 135 - 145 mmol/L [facility] K Whole Blood 4.1 3.5 - 5.0 mmol/L [facility] Comment: Please note: Patients with WBC >100,000 may have falsely elevated Potassium levels. Contact the Clinical Chemistry Laboratory if there are any questions. ICa Whole Blood 1.21 1.15 - 1.33 mmol/L [facility] Comment: Note: ??Total bilirubin higher than 20 mg/dL may lead to falsely low ionized calcium. CL Whole Blood 104 98 - 107 mmol/L [facility] Gluc Whole Bld 215(H) 65 - 199 mg/dL [facility] Comment:Diabetes: >=200 mg/d L plus symptoms Lactate WB 0.8 0.5 - 2.2 mmol/L [facility] Fraction of Inspired Oxygen, Venous 21 % [facility] Blood Gas Source Venous [facility] Temperature, Venous 35.8 Celsius [facility] Blood 01/04/2022 1:44 AM EDT 01/04/2022 1:44 AM EDT Moi Ledezma MD POINT OF CARE TEST O RDERABLES [facility] [place] [address] * (ABNORMAL) Differential, Automated (01/04/2022 12:50 AM EDT) Neutrophil % 86.1 % [facility] Neutrophil Absolute 5.92 1.70 - 6.10 x10(3)/mc L [facility] Lymph % 9.6 % [facility] Lymphocytes Abs 0.7(L) 0.9 - 3.2 x10(3)/mc L [facility] Monocyte % 3.6 % [facility] Monocyte Abs 0.2(L) 0.3 - 0.9 x10(3)/mc L [facility] Eos % 0.1 % [facility] Eosinophils Abs 0.0 0.0 - 0.4 x10(3)/ L [facility] Basophil % 0.3 % [facility] Baso Absolute 0.0 0.0 - 0.1 x10(3)/ L [facility] Immature Gran % 0.30 % [facility] Comment: Immature granulocytes(IG's)percentage and absolute count will include metamyelocytes, myelocytes, and promyelocytes. Blood smears from CBCs yielding IG's will be scanned manually for concordance. If this scan disagrees with the automated IG or if promyelocytes are noted, a manual differential will be performed. Immature Gran Absolute 0.02 0.00 - 0.04 x10(3)/ L [facility] Blood 01/04/2022 12:5 0 AM EDT 01/04/2022 1:24 AM EDT Narrative Resulting Agency Comment Spec In Lab Sumanth Barnard MD HEMATOLOGY ORDERABL ES [facility] [address] * (ABNORMAL) Hemogram (01/04/2022 12:50 AM EDT) White Blood Cell 6.9 4.0 - 9.5 x10(3)/ L [facility] Red Blood Cell 3.77(L) 4.00 - 5.21 x10(6)/mc L [facility] Hemoglobin 11.9 11.7 - 15.5 g/dL [facility] Hematocrit 34.4(L) 35.7 - 45.8 % [facility] Mean Cell Volume 91.2 82.6 - 94.4 fL [facility] Mean Cell Hemoglobin 31.6 27.1 - 32.0 pg [facility] Mean Cell Hemoglobin Concentration 34.6 31.7 - 35.0 g/dL [facility] Platelet 197 145 - 357 x10(3)/mc L [facility] RDW Standard Deviation 40.7 37.0 - 46.0 fL [facility] RDW coefficient of variation 12.1 11.5 - 14.1 % [facility] Mean Platelet Volume 10.4 7.6 - 12.9 fL [facility] NRBC% auto 0.0 % [facility] NRBC Absolute 0.000 0.000 - 0.000 x10(3)/mc L [facility] Blood 01/04/2022 12:5 0 AM EDT 01/04/2022 1:24 AM EDT Narrative Resulting Agency Comment Spec In Lab Sumanth Barnard MD HEMATOLOGY ORDERABL ES Performing Organization Address City/[facility]/ZIP Co de Phone Number [facility] [place] [address] * (ABNORMAL) Beta Hydroxybutyrate (01/04/2022 12:50 AM EDT) Beta-hydroxybu turate 0.95(H) 0.00 - 0.30 mmol/L [facility] Comment: Reference range: ??0.00-0.30 mmol/L, based on an overnight fast. ??Children may be higher. Blood 01/04/2022 12:5 0 AM EDT 01/04/2022 1:24 AM EDT Narrative Resulting Agency Comment Spec In Lab Moi Ledezma MD CHEMISTRY ORDERABLES [facility] [address] * (ABNORMAL) Hemoglobin A1c (01/04/2022 12:50 AM EDT) Hemoglobin A1c 8.0(H) 4.3 - 5.6 % [facility] Comment: Reference Range: 4.3 - [...] Mellitus, Diabetes Care 2013; 36: Suppl. 1, H45-73 Estimated Average Glucose 183 mg/dL [facility] Comment: eAG equivalents for HbA1c [...] into estimated average glucose values. ??Diabetes Care 2008:31(8):5017-6375. Blood 01/04/2022 12:5 0 AM EDT 01/04/2022 1:24 AM EDT Narrative Resulting Agency Comment Spec In Lab Moi Ledezma MD CHEMISTRY ORDERABLES [facility] [place] [address] * (ABNORMAL) Troponin (01/04/2022 12:50 AM EDT) Troponin-T 0.24(H) 0.00 - 0.00 ng/mL [facility] Comment: The 99th percentile for Troponin T is less than 0.01 ng/mL, any detectable cTnT concentration using this assay should be considered elevated. According to the third universal definition of myocardial infarction the following criteria with a clinical presentation consistent with acute myocardial ischemia meets the diagnosis for a myocardial infarction (MA). Detection of a rise and/or fall of cTnT, with at least one value greater than the 99th percentile (> or = 0.01) and with at least one of the following ?? Symptoms of ischemia ?? New or presumed new significant KS-elzcxnq-K wave (ST-T) changes or new left bundle [...] additional sample may be indicated. Reference: Third [place] Definition of Myocardial Infarction. Journal of the [place] [employer] 2012;60:1581-98 Blood 01/04/2022 12:5 0 AM EDT 01/04/2022 1:24 AM EDT Narrative Resulting Agency Comment Spec In Lab Moi Ledezma MD CHEMISTRY ORDERABLES Performing Organization Address [facility] Co de Phone Number [facility] [place] [address] * pro-Brain Natriuretic Peptide (01/04/2022 12:50 AM EDT) NT-proBNP 56 <=124 pg/mL [facility] Blood 01/04/2022 12:5 0 AM EDT 01/04/2022 1:24 AM EDT Narrative Resulting Agency Comment Spec In Lab Moi Ledezma MD CHEMISTRY ORDERABLES Performing Organization Address [facility]/State/ZIP Co de Phone Number [facility] [place] [address] * LDL Cholesterol, Direct (01/04/2022 12:50 AM EDT) LDL Cholesterol, Direct 66 mg/dL [facility] Comment: Lowest Risk: <100 mg/dL Lower Risk: 100-129 mg/dL Borderline High Risk: 130-159 mg/dL High Risk: 160-189 mg/dL Very High Risk: >pg=563 mg/dL Blood 01/04/2022 12:5 0 AM EDT 01/04/2022 1:24 AM EDT Narrative Resulting Agency Comment Spec In Lab Moi Ledezma MD CHEMISTRY ORDERABLES [facility] [address] * HDL/Cholesterol Profile (01/04/2022 12:50 AM EDT) Cholesterol, Total 136 mg/dL [facility] Comment: Lower Risk: <200 mg/dL Average Risk: 200-239 mg/dL Higher Risk: >bt=831 mg/dL HDL Cholesterol 63 mg/dL [facility] Comment: Males: ?? Higher Risk: <40 mg/dL Females: ?? Higher Risk: <50 mg/dL Cholesterol/HDL Ratio 2.2 ratio [facility] Chol/HDL Interpretation See Note [facility] Comment: Lipid management should be guided by a patient? s ASCVD risk, goals and preferences. ACC/AHA Guidelines recommend high intensity statin if clinical ASCVD or LDL greater than or equal to 190 mg/dL. http://NorthPageurl.com/XHQ-UID-Qptmlojui Measure LDL if Total Cholesterol minus HDL Cholesterol is greater than 220 mg/dL. Adults aged 40-75 with LDL 70-189 mg/dL should have their 10 year ASCVD risk estimated with the ACC/AHA ASCVD risk acquisition cost estimator http://tools.acc.org/EZRLE-Wijw-Qlbgyckvz/ Statin should be discussed if risk greater [...] Ledezma MD CHEMISTRY ORDERABLES Performing Organization Address [facility] Co de Phone Number [facility] [place] [address] * TSH (01/04/2022 12:50 AM EDT) Thyroid Stimulating Hormone 0.75 0.27 - 4.20 mcIU/mL [facility] Comment: Reference Interval (mcIU/mL): Females: ??First Trimester: 0.23-3.88 ??Second Trimester: 0.22-3.90 ??Third Trimester: 0.44-4.66 Blood 01/04/2022 12:5 0 AM EDT 01/04/2022 1:24 AM EDT Narrative Resulting Agency Comment Spec In Lab Moi Ledezma MD CHEMISTRY ORDERABLES Performing Organization Address [facility] de Phone Number [facility] [place] [address] * Phosphorus (01/04/2022 12:50 AM EDT) Phosphorus 2.7 2.5 - 4.5 mg/dL [facility] Blood 01/04/2022 12:5 0 AM EDT 01/04/2022 1:24 AM EDT Narrative Resulting Agency Comment Spec In Lab Moi Ledezma MD CHEMISTRY ORDERABLES Performing Organization Address [facility] Co de Phone Number [facility] [place] [address] * Magnesium (01/04/2022 12:50 AM EDT) Magnesium 0.84 0.69 - 1.07 mmol/L [facility] Blood 01/04/2022 12:5 0 AM EDT 01/04/2022 1:24 AM EDT Narrative Resulting Agency Comment Spec In Lab Moi Ledezma MD CHEMISTRY ORDERABLES [facility] [address] * (ABNORMAL) Basic Metabolic Panel (non-fasting) (01/04/2022 12:50 AM EDT) Glucose 224(H) 65 - 199 mg/dL [facility] Comment:Diabetes: >=200 mg/d L plus symptoms Blood Urea Nitrogen 11 8 - 18 mg/dL [facility] Creatinine 0.62(L) 0.70 - 1.20 mg/dL [facility] Sodium 137 135 - 145 mmol/L [facility] Potassium 4.1 3.5 - 5.0 mmol/L [facility] Comment: Please note: ??Patients with WBC >100,000 may have falsely elevated Potassium levels. ??For accurate Potassium quantification in these patients send serum separator tube (gold top) for subsequent determinations. ??Contact the Clinical Chemistry Laboratory if there are any questions. Chloride 105 98 - 107 mmol/L [facility] Carbon Dioxide 22 22 - 31 mmol/L [facility] Anion Gap 10 5 - 15 mmol/L [facility] Calcium 8.5 8.5 - 10.5 mg/dL [facility] Est Glomerular Filtration Rate 107 >=60 mL/min/1. 73 m?? [facility] Comment: This patient? s estimated [...] In Lab Moi Ledezma MD CHEMISTRY ORDERABLES [facility] [address] * COVID-19 PCR (01/04/2022 12:50 AM EDT) SARS-CoV-2 RNA (Rapid) Not Detected Not Detected [facility] Comment: This result should be [...] using the Simplexa COVID-19 Direct Assay by [employer] as authorized by the FDA issued Emergency [...] Department of Pathology and Laboratory Medicine at [facility], certified under the Clinical Laboratory Improvement [...] fact sheets at the following FDA website: https://www.fda.gov/medical-devices/ffzenkyjwln-daeanjw-4898-fynei-42-iclaqzeij- use-a hrzxdeuihizia-hjsoabl-velbcwi/mfsug-wtezxacknsj-rtyd SARS-CoV-2 Source [employer] Swab [facility] Nasopharyngeal Swab 01/05/20 12:50 AM EDT 01/04/2022 1:48 AM EDT Comment:Symptoms->Surveillan ce Narrative Resulting Agency Comment Spec In Lab Moi Ledezma MD MICROBIOLOGY - GENER AL ORDERABLES [facility] [place] [address] * EKG 12 Lead (01/04/2022 12:45 AM EDT) Ventricular rate 94 BPM MUSE SYSTEM Atrial Rate 94 BPM MUSE SYSTEM P-R Interval 140 ms MUSE SYSTEM QRS Duration 92 ms MUSE SYSTEM Q-T Interval 370 ms MUSE SYSTEM QTC Calculated (Bezet) 462 ms MUSE SYSTEM Calculated P [place] 69 degrees MUSE SYSTEM Calculated R [place] 2 degrees MUSE SYSTEM Calculated T [place] 89 degrees MUSE SYSTEM INTERPRETATION Normal sinus rhythm Low voltage QRS Nonspecific ST and T wave abnormality Abnormal ECG When compared with ECG of 13-NOV-1999 14:45, ST now depressed in Anterior leads Nonspecific T wave abnormality now evident in Lateral leads Confirmed by MD Umm, Ray Espinoza ([id number]) on 01/04/2022 1:03:04 PM MUSE SYSTEM 01/04/2022 12:4 5 AM EDT 01/04/2022 1:03 PM EDT Moi Ledezma MD ECG ORDERABLES Performing Organization Address [facility] de Phone Number MUSE SYSTEM * POCT Glucose (01/04/2022 12:07 AM EDT) Glucose, POC 126 65 - 199 mg/dL [facility] Comment: Supplemental ranges: <140 mg/dL before meals <180 mg/dL all other times of the day Blood 01/04/2022 12:0 7 AM EDT 01/04/2022 12:07 AM EDT Moi Ledezma MD POINT OF CARE TEST O RDERABLES Performing Organization Address [facility] de Phone Number [facility] [place] [address] * CARDIAC CATHETERIZATION (01/03/2022 11:45 PM EDT) Anatomical Region Laterality Modality Other Narrative 01/03/2022 11:54 PM EDT ?[facility] ? Cardiac Catheterization/Intervention Report ? Patient Name: Afua Rosales. ? Procedure Date: 01/03/2022 ? A #: [id number] ? Primary Physician: Moi Ledezma ? Case #: [id number] ? File Name: [id number] ? Catheterization Order Number: [id number] ? [facility] ? Final Report [place], [place] ? Patient Name: ? Afua A. Silver ?ID#: ?[id number] ? : ?1975 ? Procedure Date: ? [...] was ?designated as ASA Class IV. The [facility] clinical frailty scale is 5: Mildly ?Frail. ? Diagnostic Tests: ?Electrocardiography: ? EKG was assessed by ECG. EKG was Abnormal. EKG showed ST Deviation ? >= 0.5 mm and other abnormality. ?Medications Prior to Procedure: ? Aspirin, Statin and Thrombolytic (any). ? Indications for Diagnostic Cath: ?The priority of the diagnostic procedure was Emergent. The indication for ?the clinical laboratory aides teacher visit is ACS less than or [...] ?SH guiding catheter and a 3.[address] [place] [address] ??20 Mhz. ??Imaging ?was successful. ??Image quality was excellent. ??The mid RCA showed severe ?diffuse atherosclerotic plaque. ??Measurements were performed after ?pre-dilation. ?Post Intervention: The stent was well expanded and apposed. ?Intravascular Ultrasound was performed in the distal RCA using a 6 Fr JR ?4 SH guiding catheter and a 3.[address] [place] [address] ??20 Mhz. ?Imaging was successful. ??Image [...] dose administered prior to arrival in the clinical laboratory aides teacher. ?Recommended anti-platelet/anti-thrombotic regimen: ?Start aspirin 81 mg daily now and continue for indefinitely. ?Start clopidogrel 75 mg daily now and continue for 12 months then stop. ?These recommendations are made at the time of the intervention. Patient ?and provider preferences or a changing clinical situation may require ?modification of this regimen. Consult [facility] Interventional Cardiology for ?questions. ?The 1 year [...] against any medical treatment. Consult ?http://tools.acc.org/DAPTriskapp/#!/content/calculator/ or [facility] ?Interventional Cardiology for questions ? Conclusions: ?* [...] Procedure Note Moi Ledezma MD - 01/14/2022 [facility] Cardiac Catheterization/Intervention Report Patient Name: Afua RosalesMono Procedure Date: 01/03/2022 A #: [id number] Primary Physician: Moi Ledezma Case #: [id number] File Name: [id number] Catheterization Order Number: [id number] [facility] FinalReport [place], [place] Patient Name: Afua Rosales ID#:[id number] :1975 Procedure Date: January 03, 2022 Case [...] patientwas designated as ASA Class IV. The [facility] clinical frailty scale is 5:Mildly Frail. Diagnostic Tests: Electrocardiography: EKG was assessed by ECG. EKG was Abnormal. EKG showed STDeviation >= 0.5 mm and other abnormality. Medications Prior to Procedure: Aspirin, Statin and Thrombolytic (any). Indications for Diagnostic Cath: The priority of the diagnostic procedure was Emergent. Theindication for the clinical laboratory aides teacher visit is ACS less than or [...] SH guiding catheter and a 3.[address] [address] 20 Mhz.Imaging was successful. Image quality was excellent. The mid RCA showedsevere diffuse atherosclerotic plaque. Measurements were performed after pre-dilation. Post Intervention: The stent was well expanded and apposed. Intravascular Ultrasound was performed in the distal RCA using a 6Fr JR 4 SH guiding catheter and a 3.[address] [address] 20 Mhz. Imaging was successful. Image quality was excellent. The distalRCA showed severe diffuse atherosclerotic plaque. Measurements were performed after pre-dilation. Post Intervention: The stent was well expanded and apposed. Indication for Intervention: Coronary intervention was indicated for primary therapy for an acute myocardial infarction. The priority for the procedure was Emergent.The [facility] indication for the procedure was [...] The lesion was predilated with a 2.00mm [id number] MM balloon with a maximum inflation pressure [...] dose administered prior to arrival in the clinical laboratory aides teacher. Recommended anti-platelet/anti-thrombotic regimen: Start aspirin 81 mg daily now and continue for indefinitely. Start clopidogrel 75 mg daily now and continue for 12 months thenstop. These recommendations are made at the time of the intervention.Patient and provider preferences or a changing clinical situation mayrequire modification of this regimen. Consult [facility] Interventional Cardiologyfor questions. The 1 year bleeding [...] or against any medical treatment.Consult http://tools.acc.org/DAPTriskapp/#!/content/calculator/ or [facility] Interventional Cardiology for questions Conclusions: * Two [...] (ABNORMAL) POCT Glucose (01/03/2022 11:31 PM EDT) [facility] Signature Glucose, POC 200(H) 65 - 199 mg/dL [facility] Comment: Supplemental ranges: <140 mg/dL before meals <180 mg/dL all other times of the day Blood 01/03/2022 11:3 1 PM EDT 01/03/2022 11:31 PM EDT Moi Ledezma MD POINT OF CARE TEST O RDERABLES [facility] [place] [address] * (ABNORMAL) POCT Glucose (01/03/2022 10:56 PM EDT) Glucose, POC 265(H) 65 - 199 mg/dL [facility] Comment: Supplemental ranges: <140 mg/dL before meals <180 mg/dL all other times of the day Blood 01/03/2022 10:5 6 PM EDT 01/03/2022 10:56 PM EDT Moi Ledezma MD POINT OF CARE TEST O RDERABLES [facility] [place] [address] * (ABNORMAL) Point of Care Blood Gas Historical (01/03/2022 10:38 PM EDT) pH, POC 7.35 7.35 - 7.45 [facility] pCO2, POC 46(H) 35 - 45 mmHg [facility] pO2, POC 93 85 - 104 mmHg [facility] Base Excess, POC 0.0 -3.0 - 3.0 mmol/L [facility] Bicarbonate, POC 25.3 20.0 - 26.0 mmol/L [facility] Sodium, POC 141 135 - 145 mmol/L [facility] POC Potassium 3.7 3.5 - 5.0 mmol/L [facility] Ionized Calcium, POC 1.26 1.15 - 1.33 mmol/L [facility] POC Hematocrit 35.0 34.0 - 45.0 % [facility] POC Calc Hgb 11.9 11.2 - 15.7 g/dL [facility] Comment:The calculation of h emoglobin from hematocrit assumes a normal MCHC. POC Bgas Loc CC [facility] Blood 01/03/2022 10:3 8 PM EDT 01/09/2022 12:00 PM EDT Ray Salomon MD CHEMISTRY ORDERABLES Performing Organization Address City/[facility]/ZIP Co de Phone Number [facility] [place] [address] * (ABNORMAL) POCT Glucose (01/03/2022 10:37 PM EDT) Glucose, POC 63(L) 65 - 199 mg/dL [facility] Comment: Supplemental ranges: <140 mg/dL before meals <180 mg/dL all other times of the day Blood 01/03/2022 10:3 7 PM EDT 01/03/2022 10:37 PM EDT Moi Ledezma MD POINT OF CARE TEST O RDERABLES Performing Organization Address [facility]/ZIP Co de Phone Number [facility] [place] [address] documented in this encounter Visit Diagnoses Not [...] Contraindicated)160 0 (Not Given - Provider: Tj Beryr RN - Reason: Order parameters not met)2012 [...] Routine documented in this encounter Care Teams Ssn/Ssbn Weapons Equipment Operator Relationship Specialty Start Date End Date Felisha Juan, DEMETRIS [address] [place] [address] PCP - General Family Medicine 10/29/15 01/29/22 documented as of this encounter
--- OUTSIDE RECORDS SUMMARY | 2024-06-17 14:48 | XMS_ITS | Encounter Summary ---
Author Organization [facility] [place] [address] Care Team Providers Care Room Service Supervisor Name Role Phone Felisha Juan APRN Primary Care Provider + [phone] Reason for Visit * Reason Onset Date Comments Pump/sensor 08/31/2019 Encounter Details Date Type Department Care Team (Late st Contact Info) Description 08/31/2019 Telephone [place] [id number] Tosin Solares Pump/sensor Social History Tobacco Use Types Packs/Day Years Used Date Smoking Tobacco: Never Smokeless Tobacco: Never Sex and Gender Information Value Date Recorded Sex Assigned at Not on file Gender Identity Not on file Sexual Orientation Not on file documented as of this encounter Miscellaneous Notes * Telephone Encounter - Tosin Solares - 08/31/2019 10:47 AM EST Documentation request received from [place] [id number] office notes routed Confirmed 08/31 documented in this encounter Plan of Treatment Not on file documented as of this encounter Visit Diagnoses Not on filedocumented in this encounter Care Teams Room Service Supervisor Relationship Specialty Start Date End Date Felisha Juan APRN [address] [place] [address] PCP - General Family Medicine 10/29/15 01/29/22 documented as of this encounter
--- OUTSIDE RECORDS SUMMARY | 2024-06-17 14:48 | XMS_ITS | Encounter Summary ---
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 [facility] office documented in this encounter [...] and to provide a review of [facility] diabetes care. Diabetes History: Kailey Hernandez has had diabetes Type 1 since age of 7 years. When initially diagnosed, she was extremely fatigued, had polyuria, weight loss, and polydypsia. 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 She is here for establishment of [...] in 4 weeks, RTC in 4 months [facility]: Medications - Outpatient treatment regimen recommendations pending based on the hospital course. Monitoring - continue BG tid ac & hs Diet - low fat/low carb diet Exercise - weight-bearing exercise 30 min/day, as tolerated Thank you for the consult D/w Dr Ann, this was a resident only encounter Rosie Diamond MD Endocrine Fellow Pager- [phone] Insulin Discharge Instructions . Instructions for Lantus [...] juice or regular (not diet) soda 6 Clearwaves small box of raisins 4 glucose tablets [...] to have your insulin doses adjusted. [facility] End[facility] office * Carlos Ann MD [...] delivery documented in this encounter Care Teams Railroad Shop Inspector Relationship Specialty Start Date End Date Felisha Juan APRN [address] [place] [address] PCP - General Family Medicine 10/29/15 01/29/22 documented as of this encounter
--- OUTSIDE RECORDS SUMMARY | 2024-06-17 14:48 | XMS_ITS | Encounter Summary ---
Author Organization [facility] Address [facility] [place] [address] Care Team Providers Care Shank Archer Name Role Phone Felisha Juan APRN Primary Care Provider [phone] Reason for Referral * Consultation (Routine) - Closed Specialty Diagnoses / Procedures Referred By Contact Referred To Contact Cardiac Rehabilitation Diagnoses ST elevation myocardial infarction involving right coronary artery Marc Bowles MD [facility] [place] [address] Cardiac Rehab, [address] [address] Referral ID Status Reason Start Date Expiration Date V isits Requested Visits Authorized [id number] Closed Consult, Test & Treat 01/06/2022 01/06/2023 36 36 * Consultation (Routine) - Closed Specialty Diagnoses / Procedures Referred By Contac t Referred To Contact Diagnoses ST elevation myocardial infarction involving right coronary artery Marc Bowles MD [facility] [place] [address] [place], [place] Referral ID Status Reason Start Date Expiration Date V isits Requested Visits Authorized [id number] Closed Consult, Test & Treat 01/06/2022 07/05/2022 1 1 Reason for Visit * Auth/Cert Specialty Diagnoses / Procedures Referred By Contac t Referred To Contact Diagnoses STEMI (ST elevation myocardial infarction) STEMI Procedures CARDIAC CATHETERIZATION Geraldo Salomon MD [facility] [place] [address] [facility] Referral ID Status Reason Start Date Expiration Date Visits Re quested Visits Authorized [id number] 1 1 Encounter Details Date Type Department Care Team (Latest Contact Info) Description 01/03/2022 10:19 PM EDT - 01/06/2022 3:03 PM EDT Hospital [place] [address] Moi Ledezma MD [facility] [place] [address] Geraldo Salomon MD [facility] [place] [address] ST elevation myocardial infarction involving right coronary [...] Afua Rosales Patient Age: 46 y.o. Language: Icelandic Race: White Ethnicity: Not nor Admit date: [...] will need follow up with cardiology at [facility] as well as to [...] made her nauseous. ?? On arrival to [facility], she was afebrile, BP was 95/54, she was oxygenating normally on room air. She was infused with 1L IV fluids, given 25 mg of aspirin (per [facility] discharge note). The on-call economics department chair at [facility] was contacted, she was given 300 mg of Plavix, aspirin, heparin with bolus and drip. She was also given tecteplase 35mg. ?? On arrival to [facility], she underwent LHC and received TRACIE [...] for you to establish care with a home health lpn at [facility] as well as a [...] appointments: During 8am-5pm Thursday through Thursday call [phone] to speak with a nurse in the cardiology clinic All other times call [phone] and ask to speak to the economics department chair telecommunications network planner. Activity level: - No heavy lifting (more [...] none Follow up Appointments: No future appointments. Magisterial District Judge: You will be contacted by [facility] to schedule a cardiology appointment to establish care. PCP: Felisha Juan APRN at [phone] Your Inpatient Doctor(s) at [facility]: Geraldo Salomon MD - Attending physician Cam David MD - Can Maker physician Your Primary Care Provider: Felisha Juan APRN [address] [place] [id number] For questions regarding issues relating to your hospitalization on the Hospital Medicine Service, please contact your inpatient physician through the [facility] Power Brake Rebuilder [phone]. Issues after hours and on weekends will be handled by the Hospitalist staff on-call. General Instructions None Future Appointments and Orders Future Orders Complete By Expires Referral to Cardiac Rehab [[id number] Custom] As directed Process Instructions: If no progress note charted, please enter Clinical details in comments. Scheduling Instructions: Questions: My question or request is: cardiac rehab referral s/p STEMI, she would benefit from location close to [facility] Referral to Cardiology [REF12 Custom] As directed Process Instructions: If no progress note charted, please enter Clinical details in comments. Scheduling Instructions: Questions: My question or request is: establish care after inferoposterior stemi Provider Contact Information: Felisha Juan APRN [address] / [facility] [address] Discharge References/Attachments: Discharge References/Attachments None Associated attestation - Geraldo Salomon MD - 01/06/2022 1:51 PM EDT Dear Colleagues, I was the attending at the time of discharge. Please call or email me if you have questions. Geraldo Salomon MD, [facility] Cardiovascular Medicine [email or web address] [phone] documented in this encounter Discharge Instructions * [...] for you to establish care with a home health lpn at [facility] as well as a [...] appointments: During 8am-5pm Thursday through Thursday call [phone] to speak with a nurse in the cardiology clinic All other times call [phone] and ask to speak to the economics department chair telecommunications network planner. Activity level: - No heavy lifting (more [...] none Follow up Appointments: No future appointments. Magisterial District Judge: You will be contacted by [facility] to schedule a cardiology appointment to establish care. PCP: Felisha Juan APRN at [phone] Your Inpatient Doctor(s) at [facility]: Geraldo Salomon MD - Attending physician Cam David MD - Can Maker physician Your Primary Care Provider: Felisha Juan APRN [address] / [facility] [address] For questions regarding issues relating to your hospitalization on the Hospital Medicine Service, please contact your inpatient physician through the [facility] Power Brake Rebuilder [phone]. Issues after hours and on weekends will [...] detail Patient transport has been arranged through [facility]. Nilda will be arriving in a [...] CHO control level 2 Elba Pavon APRN [facility] Endocrinology Diabetes Management Pager [phone] 20 minutes of this 35 minute visit [...] Cuff Relevant medications: noted Last Bowel Movement: (COMMERCIAL CARPENTER) Admit Weight: 66.1 kg Estimated body mass index is 22.86 kg/m?? as calculated from the following: Height as of this encounter: 165.1 cm (5' 5). Weight as of this encounter: 62.3 kg (137 lb 5.6 oz). [facility] Body Weight: 125 lbs / 56.7 kg [...] up while inpatient Phuong Clements RD Pager #:[phone] * Geraldo Salomon MD - 01/06/2022 6:54 AM EDT Images from the original note were not included. Inpatient Cardiology Progress Note Patient info: Name: Afua Rosales : 1975 PCP: Felisha Juan APRN PCP phone number: [phone] Date of Admission: 01/03/2022 ( Hospital Day 3 days ) Attending:Geraldo Salomon MD ID: Afua Rosales is a 46 y.o. 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 She presents with inferior STEMI and is now s/p PCI with TRACIE x2 to RCA. 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 at 6 pm when [...] Procedure Component Value Units Date/Time COVID-19 PCR [[id number]] Collected: 01/04/2249 Lab Status: Final result Specimen: [...] using the Simplexa COVID-19 Direct Assay by HEALBE as authorized by the FDA issued Emergency [...] Department of Pathology and Laboratory Medicine at [facility], certified under the Clinical Laboratory Improvement [...] fact sheets at the following FDA website: https://www.fda.gov/medical-devices/iznfhqrpldr-dmbucgw-2004-huisf-02-bouaxgclr- jbc-snvltlfgzgylku-xgxfqdh-devices/ttxbo-akgmgwtwyuu-xlyp SARS-CoV-2 Source SENIOR [employer] OFFICER Swab Imaging: No results found for this [...] David MD Internal Medicine, PGY-1 Cardiology, S2 ([id number]) 01/06/22 Cardiology Staff Addendum Afua Rosales is [...] Sky ? Lucia Alexander Endocrinology Fellow Pager [phone] I have seen the patient and reviewed [...] PCP: Felisha Juan APRN PCP phone number: [phone] Date of Admission: 01/03/2022 ( Hospital Day [...] Procedure Component Value Units Date/Time COVID-19 PCR [[id number]] Collected: 01/04/2249 Lab Status: Final result Specimen: [...] using the Simplexa COVID-19 Direct Assay by HEALBE as authorized by the FDA issued Emergency [...] Department of Pathology and Laboratory Medicine at [facility], certified under the Clinical Laboratory Improvement [...] fact sheets at the following FDA website: https://www.fda.gov/medical-devices/ohuohjosxkx-gelingt-4051-xnrwh-29-kcimobfqp- rpf-tvkshuynjcygzi-lvkapaz-devices/uqprf-nucosuxjqqz-mfik SARS-CoV-2 Source SENIOR [employer] OFFICER Swab Imaging: No results found for this [...] Clark MD - 01/04/2022 3:25 AM EDT [facility] TeleICU Initial Assessment Note I established audio/visual communication with the patient's room, reviewed the eDH. History and Assessment: 46 y.o. 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 STEMIalert activated and went to boat laborer where proximal and mid RCA stents [...] tablet 12.5 mg, 12.5 mg, Oral, Q8H [facility], Sumanth Barnard MD ??? clopidogreL (Plavix) [...] PCP: Felisha Juan APRN PCP phone number: [phone] Date of Admission: 01/03/2022 ( Hospital Day [...] previously made her nauseous. On arrival to [facility], she was afebrile, BP was 95/54, she was oxygenating normally on room air. She was infused with 1L IV fluids, given 25 mg of aspirin (per [facility] discharge note). The on-call economics department chair at [facility] was contacted, she was given 300 mg of Plavix, aspirin, heparin with bolus and drip. She was also given tecteplase 35mg. On arrival to [facility] lab[facility], she underwent LHC and received TRACIE [...] COVID test: Lab Results Component Value Date [id number] Not Detected 01/04/2022 Past medical History: No past medical history on file. Hospitalizations Within the Past 30 Days: no previous admission in last 30 days Current Decision-Making Capacity: Self Advance Care Planning: Attempt Cardiopulmonary Resuscitation - Inpatient <no information> -Advanced Directive: No, need to discuss If AD's have not been completed daughter would be surrogate decision maker per [place] surrogate decision making law. (Only good for 180 days) Any patient receiving care at [facility] must abide by [place] law. The hierarchy for surrogate decision making [...] (i) The agent with financial power of network contract manager or a conservator appointed in accordance with [...] confirmed as: [address] [facility] [address] Social & Family Supports: All names listed below confirmed with patient as current and correct Extended Emergency Contact Information Primary Emergency Contact: Delano Reyna [facility] Mobile Relation: Friend Current Care [...] MEDICAID [place] Prescription Coverage: Yes Preferred Pharmacy: [id number] - [place], [place] - [address] [facility] [address] [facility] [address] [address] [facility] [address] [facility] [address] [id number] - [place], [place] - [address] [facility] [address] [facility] [address] Stringer Status: Patient is a : No Primary Care Provider: Felisha Juan APRN [phone] Patient/Caregiver Goals of Treatment: To go home [...] planning. Office of Care Management Surgery Team Manager Reimbursement [email or web address] Pager [phone] #[phone] * Consult Note - Mark Sky [...] management and to provide a review of medical terminologist diabetescare. Diabetes History: Afua Rosales has had [...] meal) 4. Carb controlled diet level 2 long-term diabetes care: Medications - Outpatient treatment regimen recommendations pending based on the hospital course. Monitoring - continue BG check q4 hours for now Diet - low fat/low carb diet Exercise - weight-bearing exercise 30 min/day, as tolerated Thank you for allowing us to provide care for your patient. Discussed with Dr. Asya Alexander Endocrinology Fellow Pager [phone] I have seen the patient and reviewed [...] Glucose, POC 197 65 - 199 mg/dL [facility] Comment: Supplemental ranges: <140 mg/dL before meals <180 mg/dL all other times of the day Blood 01/06/2022 2:32 PM EDT 01/06/2022 2:32 PM EDT Geraldo Salomon MD POINT OF CARE TEST O MUSHTAQ Performing Organization Address City/[facility]/ZIP Co de Phone Number [facility] [place] [address] * (ABNORMAL) POCT Glucose (01/06/2022 11:47 AM EDT) Glucose, POC 299(H) 65 - 199 mg/dL [facility] Comment: Supplemental ranges: <140 mg/dL before meals <180 mg/dL all other times of the day Blood 01/06/2022 11:4 7 AM EDT 01/06/2022 11:47 AM EDT Geraldo Salomon MD POINT OF CARE TEST Natalia LANDIN [facility] [place] [address] * POCT Glucose (01/06/2022 8:01 AM EDT) Glucose, POC 142 65 - 199 mg/dL [facility] Comment: Supplemental ranges: <140 mg/dL before meals <180 mg/dL all other times of the day Blood 01/06/2022 8:01 AM EDT 01/06/2022 8:01 AM EDT Geraldo Salomon MD POINT OF CARE TEST O RDERABLES Performing Organization Address City/[facility]/ZIP Co de Phone Number [facility] [place] [address] * Differential, Automated (01/06/2022 4:20 AM EDT) Neutrophil % 51.9 % [facility] Neutrophil Absolute 3.34 1.70 - 6.10 x10(3)/[facility] Lymph % 32.5 % [facility] Lymphocytes Abs 2.1 0.9 - 3.2 x10(3)/[facility] Monocyte % 13.7 % [facility] Monocyte Abs 0.9 0.3 - 0.9 x10(3)/[facility] Eos % 1.1 % [facility] Eosinophils Abs 0.1 0.0 - 0.4 x10(3)/[facility] Basophil % 0.6 % [facility] Baso Absolute 0.0 0.0 - 0.1 x10(3)/[facility] Immature Gran % 0.20 % [facility] Comment: Immature granulocytes(IG's)percentage and absolute count will include metamyelocytes, myelocytes, and promyelocytes. Blood smears from CBCs yielding IG's will be scanned manually for concordance. If this scan disagrees with the automated IG or if promyelocytes are noted, a manual differential will be performed. Immature Gran Absolute 0.01 0.00 - 0.04 x10(3)/[facility] Blood 01/06/2022 4:20 AM EDT 01/06/2022 4:39 AM EDT Narrative Resulting Agency Comment Spec In Lab Cam David MD HEMATOLOGY ORDERABLE S Performing Organization Address City/[facility]/ZIP Co de Phone Number [facility] [place] [address] * (ABNORMAL) Hemogram (01/06/2022 4:20 AM EDT) White Blood Cell 6.4 4.0 - 9.5 x10(3)/mc L [facility] Red Blood Cell 3.86(L) 4.00 - 5.21 x10(6)/mc L [facility] Hemoglobin 12.4 11.7 - 15.5 g/dL [facility] Hematocrit 36.0 35.7 - 45.8 % [facility] Mean Cell Volume 93.3 82.6 - 94.4 fL [facility] Mean Cell Hemoglobin 32.1(H) 27.1 - 32.0 pg [facility] Mean Cell Hemoglobin Concentration 34.4 31.7 - 35.0 g/dL [facility] Platelet 177 145 - 357 x10(3)/[facility] RDW Standard Deviation 42.0 37.0 - 46.0 fL [facility] RDW coefficient of variation 12.1 11.5 - 14.1 % [facility] Mean Platelet Volume 10.0 7.6 - 12.9 fL [facility] NRBC% auto 0.0 % [facility] NRBC Absolute 0.000 0.000 - 0.000 x10(3)/ L [facility] Blood 01/06/2022 4:20 AM EDT 01/06/2022 4:39 AM EDT Narrative Resulting Agency Comment Spec In Lab Cam David MD HEMATOLOGY ORDERABLE S [facility] [place] [address] * Basic Metabolic Panel (non-fasting) (01/06/2022 4:20 AM EDT) Glucose 123 65 - 199 mg/dL [facility] Comment:Diabetes: >=200 mg/d L plus symptoms Blood Urea Nitrogen 13 8 - 18 mg/dL [facility] Creatinine 0.77 0.70 - 1.20 mg/dL [facility] Sodium 137 135 - 145 mmol/L [facility] Potassium 4.0 3.5 - 5.0 mmol/L [facility] Comment: Please note: ??Patients with WBC >100,000 may have falsely elevated Potassium levels. ??For accurate Potassium quantification in these patients send serum separator tube (gold top) for subsequent determinations. ??Contact the Clinical Chemistry Laboratory if there are any questions. Chloride 102 98 - 107 mmol/L [facility] Carbon Dioxide 26 22 - 31 mmol/L [facility] Anion Gap 9 5 - 15 mmol/L [facility] Calcium 9.2 8.5 - 10.5 mg/dL [facility] Est Glomerular Filtration Rate 92 >=60 mL/min/1. 73 m?? [facility] Comment: This patient? [...] In Lab Geraldo Salomon MD CHEMISTRY ORDERABLES [facility] [place] [address] * POCT Glucose (01/06/2022 3:46 AM EDT) Glucose, POC 129 65 - 199 mg/dL [facility] Comment: Supplemental ranges: <140 mg/dL before meals <180 mg/dL all other times of the day Blood 01/06/2022 3:46 AM EDT 01/06/2022 3:46 AM EDT Geraldo Salomon MD POINT OF CARE TEST O MUSHTAQ Performing Organization Address City/[facility] Co de Phone Number [facility] [place] [address] * POCT Glucose (01/06/2022 12:06 AM EDT) Glucose, POC 125 65 - 199 mg/dL [facility] Comment: Supplemental ranges: <140 mg/dL before meals <180 mg/dL all other times of the day Blood 01/06/2022 12:0 6 AM EDT 01/06/2022 12:06 AM EDT Geraldo Salomon MD POINT OF CARE TEST O MUSHTAQ Performing Organization Address [facility] Co de Phone Number [facility] [place] [address] * (ABNORMAL) POCT Glucose (01/05/2022 8:11 PM EDT) Glucose, POC 220(H) 65 - 199 mg/dL [facility] Comment: Supplemental ranges: <140 mg/dL before meals <180 mg/dL all other times of the day Blood 01/05/2022 8:11 PM EDT 01/05/2022 8:11 PM EDT Geraldo Salomon MD POINT OF CARE TEST O SANDEEPERAFRANKLIN Performing Organization Address [facility] Co de Phone Number [facility] [place] [address] * POCT Glucose (01/05/2022 6:00 PM EDT) Glucose, POC 190 65 - 199 mg/dL [facility] Comment: Supplemental ranges: <140 mg/dL before meals <180 mg/dL all other times of the day Blood 01/05/2022 6:00 PM EDT 01/05/2022 6:00 PM EDT Geraldo Salomon MD POINT OF CARE TEST O RDERABLES Performing Organization Address City/[facility] Co de Phone Number [facility] [place] [address] * POCT Glucose (01/05/2022 3:53 PM EDT) Pathologist [facility] Glucose, POC 161 65 - 199 mg/dL [facility] Comment: Supplemental ranges: <140 mg/dL before meals <180 mg/dL all other times of the day Blood 01/05/2022 3:53 PM EDT 01/05/2022 3:53 PM EDT Geraldo Salomon MD POINT OF CARE TEST O MUSHTAQ Performing Organization Address City/[facility]/ZIP Co de Phone Number [facility] [place] [address] * (ABNORMAL) Differential, Automated (01/05/2022 11:45 AM EDT) [facility] [address] Neutrophil % 65.9 % [facility] Neutrophil Absolute 4.46 1.70 - 6.10 x10(3)/mc L [facility] Lymph % 19.0 % [facility] Lymphocytes Abs 1.3 0.9 - 3.2 x10(3)/mc L [facility] Monocyte % 14.2 % [facility] Monocyte Abs 1.0(H) 0.3 - 0.9 x10(3)/mc L [facility] Eos % 0.1 % [facility] Eosinophils Abs 0.0 0.0 - 0.4 x10(3)/mc L [facility] Basophil % 0.4 % [facility] Baso Absolute 0.0 0.0 - 0.1 x10(3)/mc L [facility] Immature Gran % 0.40 % [facility] Comment: Immature granulocytes(IG's)percentage and absolute count will include metamyelocytes, myelocytes, and promyelocytes. Blood smears from CBCs yielding IG's will be scanned manually for concordance. If this scan disagrees with the automated IG or if promyelocytes are noted, a manual differential will be performed. Immature Gran Absolute 0.03 0.00 - 0.04 x10(3)/mc L [facility] Blood 01/05/2022 11:4 5 AM EDT 01/05/2022 12:08 PM EDT Narrative Resulting Agency Comment Spec In Lab Cam David MD HEMATOLOGY ORDERABLE S [facility] [place] [address] * (ABNORMAL) Hemogram (01/05/2022 11:45 AM EDT) White Blood Cell 6.8 4.0 - 9.5 x10(3)/ L [facility] Red Blood Cell 3.92(L) 4.00 - 5.21 x10(6)/mc L [facility] Hemoglobin 12.5 11.7 - 15.5 g/dL [facility] Hematocrit 36.4 35.7 - 45.8 % [facility] Mean Cell Volume 92.9 82.6 - 94.4 fL [facility] Mean Cell Hemoglobin 31.9 27.1 - 32.0 pg [facility] Mean Cell Hemoglobin Concentration 34.3 31.7 - 35.0 g/dL [facility] Platelet 187 145 - 357 x10(3)/mc L [facility] RDW Standard Deviation 41.9 37.0 - 46.0 fL [facility] RDW coefficient of variation 12.3 11.5 - 14.1 % [facility] Mean Platelet Volume 10.4 7.6 - 12.9 fL [facility] NRBC% auto 0.0 % [facility] NRBC Absolute 0.000 0.000 - 0.000 x10(3)/mc L [facility] Blood 01/05/2022 11:4 5 AM EDT 01/05/2022 12:08 PM EDT Narrative Resulting Agency Comment Spec In Lab Cam David MD HEMATOLOGY ORDERABLE S [facility] [place] [address] * Basic Metabolic Panel (non-fasting) (01/05/2022 11:45 AM EDT) Glucose 140 65 - 199 mg/dL [facility] Comment:Diabetes: >=200 mg/d L plus symptoms Blood Urea Nitrogen 10 8 - 18 mg/dL [facility] Creatinine 0.75 0.70 - 1.20 mg/dL [facility] Sodium 137 135 - 145 mmol/L [facility] Potassium 3.9 3.5 - 5.0 mmol/L [facility] Comment: Please note: ??Patients with WBC >100,000 may have falsely elevated Potassium levels. ??For accurate Potassium quantification in these patients send serum separator tube (gold top) for subsequent determinations. ??Contact the Clinical Chemistry Laboratory if there are any questions. Chloride 101 98 - 107 mmol/L [facility] Carbon Dioxide 25 22 - 31 mmol/L [facility] Anion Gap 11 5 - 15 mmol/L [facility] Calcium 8.6 8.5 - 10.5 mg/dL [facility] Est Glomerular Filtration Rate 95 >=60 mL/min/1. 73 m?? [facility] Comment: This patient? [...] Salomon MD CHEMISTRY ORDERABLES Performing Organization Address [facility] Co de Phone Number [facility] [place] [address] * POCT Glucose (01/05/2022 11:40 AM EDT) [facility] [address] Glucose, POC 148 65 - 199 mg/dL [facility] Comment: Supplemental ranges: <140 mg/dL before meals <180 mg/dL all other times of the day Blood 01/05/2022 11:4 0 AM EDT 01/05/2022 11:40 AM EDT Geraldo Salomon MD POINT OF CARE TEST O RDERABLES Performing Organization Address [facility] Co de Phone Number [facility] [place] [address] * EKG 12 Lead (01/05/2022 8:23 AM EDT) Ventricular rate 78 BPM MUSE SYSTEM Atrial Rate 78 BPM MUSE SYSTEM P-R Interval 132 ms MUSE SYSTEM QRS Duration 106 ms MUSE SYSTEM Q-T Interval 364 ms MUSE SYSTEM QTC Calculated (Bezet) 414 ms MUSE SYSTEM Calculated P Homer 78 degrees MUSE SYSTEM Calculated R Homer -65 degrees MUSE SYSTEM Calculated T Homer -33 degrees MUSE SYSTEM INTERPRETATION Normal sinus rhythm Left axis deviation Incomplete right bundle branch block Cannot rule out Inferior infarct , age undetermined Abnormal ECG When compared with ECG of 04-JAN-2022 00:45, Incomplete right bundle branch block is now Present Minimal criteria for Inferior infarct are now Present Confirmed by Storm Lewis ([id number]) on 01/05/2022 3:44:16 PM MUSE SYSTEM 01/05/2022 8:23 AM EDT 01/05/2022 3:44 PM EDT Geraldo Salomon MD ECG ORDERABLES MUSE SYSTEM * (ABNORMAL) POCT Glucose (01/05/2022 7:43 AM EDT) Glucose, POC 213(H) 65 - 199 mg/dL [facility] Comment: Supplemental ranges: <140 mg/dL before meals <180 mg/dL all other times of the day Blood 01/05/2022 7:43 AM EDT 01/05/2022 7:43 AM EDT Geraldo Salomon MD POINT OF CARE TEST O RDERABLES Performing Organization Address [facility]/ZIP Co de Phone Number [facility] [place] [address] * (ABNORMAL) POCT Glucose (01/05/2022 6:45 AM EDT) Glucose, POC 214(H) 65 - 199 mg/dL [facility] Comment: Supplemental ranges: <140 mg/dL before meals <180 mg/dL all other times of the day Blood 01/05/2022 6:45 AM EDT 01/05/2022 6:45 AM EDT Geraldo Salomon MD POINT OF CARE TEST O RDERABLES Performing Organization Address City/[facility]/ZIP Co de Phone Number [facility] [place] [address] * POCT Glucose (01/05/2022 5:31 AM EDT) Glucose, POC 89 65 - 199 mg/dL [facility] Comment: Supplemental ranges: <140 mg/dL before meals <180 mg/dL all other times of the day Blood 01/05/2022 5:31 AM EDT 01/05/2022 5:31 AM EDT Geraldo Salomon MD POINT OF CARE TEST O SANDEEPERAFRANKLIN [facility] [place] [address] * (ABNORMAL) POCT Glucose (01/05/2022 5:09 AM EDT) Glucose, POC 59(L) 65 - 199 mg/dL [facility] Comment: Supplemental ranges: <140 mg/dL before meals <180 mg/dL all other times of the day Blood 01/05/2022 5:09 AM EDT 01/05/2022 5:09 AM EDT Geraldo Salomon MD POINT OF CARE TEST O SANDEEPERAFRANKLIN Performing Organization Address [facility]/ZIP Co de Phone Number [facility] [place] [address] * POCT Glucose (01/05/2022 12:45 AM EDT) Glucose, POC 96 65 - 199 mg/dL [facility] Comment: Supplemental ranges: <140 mg/dL before meals <180 mg/dL all other times of the day Blood 01/05/2022 12:4 5 AM EDT 01/05/2022 12:45 AM EDT Geraldo Salomon MD POINT OF CARE TEST O RDERAFRANKLIN [facility] [place] [address] * POCT Glucose (01/04/2022 7:28 PM EDT) Glucose, POC 104 65 - 199 mg/dL [facility] Comment: Supplemental ranges: <140 mg/dL before meals <180 mg/dL all other times of the day Blood 01/04/2022 7:28 PM EDT 01/04/2022 7:28 PM EDT Geraldo Salomon MD POINT OF CARE TEST O MUSHTAQ Performing Organization Address City/[facility]/ZIP Co de Phone Number [facility] [place] [address] * POCT Glucose (01/04/2022 4:04 PM EDT) Glucose, POC 190 65 - 199 mg/dL [facility] Comment: Supplemental ranges: <140 mg/dL before meals <180 mg/dL all other times of the day Blood 01/04/2022 4:04 PM EDT 01/04/2022 4:04 PM EDT Geraldo Salomon MD POINT OF CARE TEST O MUSHTAQ Performing Organization Address [facility] Co de Phone Number [facility] [place] [address] * POCT Glucose (01/04/2022 12:09 PM EDT) Glucose, POC 157 65 - 199 mg/dL [facility] Comment: Supplemental ranges: <140 mg/dL before meals <180 mg/dL all other times of the day Blood 01/04/2022 12:0 9 PM EDT 01/04/2022 12:09 PM EDT Geraldo Salomon MD POINT OF CARE TEST O MUSHTAQ Performing Organization Address City/[facility] Co de Phone Number [facility] [place] [address] * ECHO COMPLETE W CONTRAST (01/04/2022 11:08 AM EDT) EF 60 HEARTLAB SYSTEM Anatomical Region Laterality Modality Cardiac Other 01/04/2022 10:3 3 AM EDT Narrative 01/04/2022 11:25 AM EDT [facility] ?[address] ? [place] [address] ?Voice: ?Fax: ? Echocardiogram Report Name: SILVER, AFUA A ? Study Date: 01/04/2022 10:33 AM ? Patient Location: [facility] CV19 A : 1975 ? Height: 65 in ? Account: [id number] Age: 46 yrs ? Weight: 148 lb Gender: Female ?BSA: 1.7 m2 Ordering Physician: MOI LEDEZMA Referring Physician: MT VALENZUELA Exam Location: [facility]. Interpretation Summary Technically difficult. Left ventricular [...] jet. There is no valve disease. Procedure Complete-[id number]. Image enhancement Optison was used for left [...] Procedure Note Geraldo Salomon MD - 01/04/2022 [place] [address] Voice: Fax: Echocardiogram Report Name: AFUA ROSALES Study Date: 210:33 AM Patient Location: [address] : 1975 Height: 65 in Account: [id number] Age: 46 yrs Weight: 148 lb Gender: Female BSA: 1.7 m2 Ordering Physician: MOI LEDEZMA Referring Physician: MT VALENZUELA Exam Location: [facility]. Interpretation Summary Technically difficult. Left ventricular [...] jet. There is no valve disease. Procedure Complete-39881. Image enhancement Optison was used for left [...] Glucose, POC 100 65 - 199 mg/dL [facility] Comment: Supplemental ranges: <140 mg/dL before meals <180 mg/dL all other times of the day Blood 01/04/2022 10:0 5 AM EDT 01/04/2022 10:05 AM EDT Geraldo Salomon MD POINT OF CARE TEST O RDERAFRANKLIN [facility] [place] [address] * POCT Glucose (01/04/2022 8:23 AM EDT) Glucose, POC 72 65 - 199 mg/dL [facility] Comment: Supplemental ranges: <140 mg/dL before meals <180 mg/dL all other times of the day Blood 01/04/2022 8:23 AM EDT 01/04/2022 8:23 AM EDT Moi Ledezma MD POINT OF CARE TEST O RDERAFRANKLIN Performing Organization Address City/[facility]/ZIP Co de Phone Number [facility] [place] [address] * POCT Glucose (01/04/2022 5:03 AM EDT) Glucose, POC 143 65 - 199 mg/dL [facility] Comment: Supplemental ranges: <140 mg/dL before meals <180 mg/dL all other times of the day Blood 01/04/2022 5:03 AM EDT 01/04/2022 5:03 AM EDT Moi Ledezma MD POINT OF CARE TEST O RDERABLES [facility] [place] [address] * POCT Glucose (01/04/2022 3:01 AM EDT) Glucose, POC 182 65 - 199 mg/dL [facility] Comment: Supplemental ranges: <140 mg/dL before meals <180 mg/dL all other times of the day Blood 01/04/2022 3:01 AM EDT 01/04/2022 3:01 AM EDT Moi Ledezma MD POINT OF CARE TEST O RDERABLES [facility] [place] [address] * (ABNORMAL) BLOOD GAS 2 VENOUS (01/04/2022 1:44 AM EDT) pH, Venous 7.33 7.32 - 7.42 [facility] PCO2, Venous 45 41 - 51 mmHg [facility] PO2, Venous 52(H) 25 - 40 mmHg [facility] Bicarbonate, Venous 23.5 mmol/L [facility] Base Excess, Venous -2.7 mmol/L [facility] Hgb Blood Gas 13.1 11.7 - 15.5 g/dL [facility] Oxyhemoglobin, Venous 86.6 % [facility] Carboxyhemoglob in, Venous 0.3 % [facility] Comment: Nonsmokers: 0.5-1.5% COHB Smokers: Variable, but usually less than 10% Toxic: 20-30% COHB Lethal: Greater than 60% COHB Methemoglobin, Venous 0.8 <=1.5 % [facility] Na Whole Blood 134(L) 135 - 145 mmol/L [facility] K Whole Blood 4.1 3.5 - 5.0 mmol/L [facility] Comment: Please note: Patients with WBC >100,000 may have falsely elevated Potassium levels. Contact the Clinical Chemistry Laboratory if there are any questions. ICa Whole Blood 1.21 1.15 - 1.33 mmol/L [facility] Comment: Note: ??Total bilirubin higher than 20 mg/dL may lead to falsely low ionized calcium. CL Whole Blood 104 98 - 107 mmol/L [facility] Gluc Whole Bld 215(H) 65 - 199 mg/dL [facility] Comment:Diabetes: >=200 mg/d L plus symptoms Lactate WB 0.8 0.5 - 2.2 mmol/L [facility] Fraction of Inspired Oxygen, Venous 21 % [facility] Blood Gas Source Venous [facility] Temperature, Venous 35.8 Celsius [facility] Blood 01/04/2022 1:44 AM EDT 01/04/2022 1:44 AM EDT Moi Ledezma MD POINT OF CARE TEST O RDERABLES Performing Organization Address City/State/[facility] Co de Phone Number [facility] [place] [address] * (ABNORMAL) Differential, Automated (01/04/2022 12:50 AM EDT) Neutrophil % 86.1 % [facility] Neutrophil Absolute 5.92 1.70 - 6.10 x10(3)/mc L [facility] Lymph % 9.6 % [facility] Lymphocytes Abs 0.7(L) 0.9 - 3.2 x10(3)/mc L [facility] Monocyte % 3.6 % [facility] Monocyte Abs 0.2(L) 0.3 - 0.9 x10(3)/mc L [facility] Eos % 0.1 % [facility] Eosinophils Abs 0.0 0.0 - 0.4 x10(3)/mc L [facility] Basophil % 0.3 % [facility] Baso Absolute 0.0 0.0 - 0.1 x10(3)/mc L [facility] Immature Gran % 0.30 % [facility] Comment: Immature granulocytes(IG's)percentage and absolute count will include metamyelocytes, myelocytes, and promyelocytes. Blood smears from CBCs yielding IG's will be scanned manually for concordance. If this scan disagrees with the automated IG or if promyelocytes are noted, a manual differential will be performed. Immature Gran Absolute 0.02 0.00 - 0.04 x10(3)/mc L [facility] Blood 01/04/2022 12:5 0 AM EDT 01/04/2022 1:24 AM EDT Narrative Resulting Agency Comment Spec In Lab Sumanth Barnard MD HEMATOLOGY ORDERABL ES [facility] [place] [address] * (ABNORMAL) Hemogram (01/04/2022 12:50 AM EDT) White Blood Cell 6.9 4.0 - 9.5 x10(3)/mc L [facility] Red Blood Cell 3.77(L) 4.00 - 5.21 x10(6)/mc L [facility] Hemoglobin 11.9 11.7 - 15.5 g/dL [facility] Hematocrit 34.4(L) 35.7 - 45.8 % [facility] Mean Cell Volume 91.2 82.6 - 94.4 fL [facility] Mean Cell Hemoglobin 31.6 27.1 - 32.0 pg [facility] Mean Cell Hemoglobin Concentration 34.6 31.7 - 35.0 g/dL [facility] Platelet 197 145 - 357 x10(3)/mc L [facility] RDW Standard Deviation 40.7 37.0 - 46.0 fL [facility] RDW coefficient of variation 12.1 11.5 - 14.1 % [facility] Mean Platelet Volume 10.4 7.6 - 12.9 fL [facility] NRBC% auto 0.0 % [facility] NRBC Absolute 0.000 0.000 - 0.000 x10(3)/mc L [facility] Blood 01/04/2022 12:5 0 AM EDT 01/04/2022 1:24 AM EDT Narrative Resulting Agency Comment Spec In Lab Sumanth Barnard MD HEMATOLOGY ORDERABL ES Performing Organization Address [facility] Co de Phone Number [facility] [place] [address] * (ABNORMAL) Beta Hydroxybutyrate (01/04/2022 12:50 AM EDT) Beta-hydroxybu turate 0.95(H) 0.00 - 0.30 mmol/L [facility] Comment: Reference range: ??0.00-0.30 mmol/L, based on an overnight fast. ??Children may be higher. Blood 01/04/2022 12:5 0 AM EDT 01/04/2022 1:24 AM EDT Narrative Resulting Agency Comment Spec In Lab Moi Ledezma MD CHEMISTRY ORDERABLES Performing Organization Address [facility] Co de Phone Number [facility] [place] [address] * (ABNORMAL) Hemoglobin A1c (01/04/2022 12:50 AM EDT) Hemoglobin A1c 8.0(H) 4.3 - 5.6 % [facility] Comment: Reference Range: [...] 1, S6774 Estimated Average Glucose 183 mg/dL [facility] Comment: eAG equivalents [...] into estimated average glucose values. ??Diabetes Care 2008:31(8):9160-0504. Blood 01/04/2022 12:5 0 AM EDT 01/04/2022 1:24 AM EDT Narrative Resulting Agency Comment Spec In Lab Moi Ledezma MD CHEMISTRY ORDERABLES Performing Organization Address City/State/[facility] Co de Phone Number [facility] [place] [address] * (ABNORMAL) Troponin (01/04/2022 12:50 AM EDT) Troponin-T 0.24(H) 0.00 - 0.00 ng/mL [facility] Comment: The 99th percentile for Troponin T is less than 0.01 ng/mL, any detectable cTnT concentration using this assay should be considered elevated. According to the third universal definition of myocardial infarction the following criteria with a clinical presentation consistent with acute myocardial ischemia meets the diagnosis for a myocardial infarction (NC). Detection of a rise and/or fall of cTnT, with at least one value greater than the 99th percentile (> or = 0.01) and with at least one of the following ?? Symptoms of ischemia ?? New or presumed new significant [id number] wave (ST-T) changes or new left bundle [...] additional sample may be indicated. Reference: Third [place] Definition of Myocardial Infarction. Journal of the [place] [employer] 2012;60:1581-98 Blood 01/04/2022 12:5 0 AM EDT 01/04/2022 1:24 AM EDT Narrative Resulting Agency Comment Spec In Lab Moi Ledezma MD CHEMISTRY ORDERABLES Performing Organization Address [facility] Co de Phone Number [facility] [place] [address] * pro-Brain Natriuretic Peptide (01/04/2022 12:50 AM EDT) NT-proBNP 56 <=124 pg/mL [facility] Blood 01/04/2022 12:5 0 AM EDT 01/04/2022 1:24 AM EDT Narrative Resulting Agency Comment Spec In Lab Moi Ledezma MD CHEMISTRY ORDERABLES Performing Organization Address [facility] Co de Phone Number [facility] [place] [address] * LDL Cholesterol, Direct (01/04/2022 12:50 AM EDT) LDL Cholesterol, Direct 66 mg/dL [facility] Comment: Lowest Risk: <100 mg/dL Lower Risk: 100-129 mg/dL Borderline High Risk: 130-159 mg/dL High Risk: 160-189 mg/dL Very High Risk: >bw=442 mg/dL Blood 01/04/2022 12:5 0 AM EDT 01/04/2022 1:24 AM EDT Narrative Resulting Agency Comment Spec In Lab Moi Ledezma MD CHEMISTRY ORDERABLES [facility] [place] [address] * HDL/Cholesterol Profile (01/04/2022 12:50 AM EDT) Cholesterol, Total 136 mg/dL [facility] Comment: Lower Risk: <200 mg/dL Average Risk: 200-239 mg/dL Higher Risk: >xd=351 mg/dL HDL Cholesterol 63 mg/dL [facility] Comment: Males: ?? Higher Risk: <40 mg/dL Females: ?? Higher Risk: <50 mg/dL Cholesterol/HDL Ratio 2.2 ratio [facility] Chol/HDL Interpretation See Note [facility] Comment: Lipid management should be guided by a patient? s ASCVD risk, goals and preferences. ACC/AHA Guidelines recommend high intensity statin if clinical ASCVD or LDL greater than or equal to 190 mg/dL. http://Blinkbuggy.com/LEJ-ODE-Utqkxkpnj Measure LDL if Total Cholesterol minus HDL Cholesterol is greater than 220 mg/dL. Adults aged 40-75 with LDL 70-189 mg/dL should have their 10 year ASCVD risk estimated with the ACC/AHA ASCVD risk welding estimator http://tools.acc.org/FZVWU-Syxp-Mdijrwvul/ Statin should be discussed if risk greater [...] Ledezma MD CHEMISTRY ORDERABLES Performing Organization Address [facility] de Phone Number [facility] [place] [address] * TSH (01/04/2022 12:50 AM EDT) Thyroid Stimulating Hormone 0.75 0.27 - 4.20 mcIU/mL [facility] Comment: Reference Interval (mcIU/mL): Females: ??First Trimester: 0.23-3.88 ??Second Trimester: 0.22-3.90 ??Third Trimester: 0.44-4.66 Blood 01/04/2022 12:5 0 AM EDT 01/04/2022 1:24 AM EDT Narrative Resulting Agency Comment Spec In Lab Moi Ledezma MD CHEMISTRY ORDERABLES Performing Organization Address [facility] de Phone Number [facility] [place] [address] * Phosphorus (01/04/2022 12:50 AM EDT) Phosphorus 2.7 2.5 - 4.5 mg/dL [facility] Blood 01/04/2022 12:5 0 AM EDT 01/04/2022 1:24 AM EDT Narrative Resulting Agency Comment Spec In Lab Moi Ledezma MD CHEMISTRY ORDERABLES Performing Organization Address [facility] de Phone Number [facility] [place] [address] * Magnesium (01/04/2022 12:50 AM EDT) Magnesium 0.84 0.69 - 1.07 mmol/L [facility] Blood 01/04/2022 12:5 0 AM EDT 01/04/2022 1:24 AM EDT Narrative Resulting Agency Comment Spec In Lab Moi Ledezma MD CHEMISTRY ORDERABLES [facility] [place] [address] * (ABNORMAL) Basic Metabolic Panel (non-fasting) (01/04/2022 12:50 AM EDT) Glucose 224(H) 65 - 199 mg/dL [facility] Comment:Diabetes: >=200 mg/d L plus symptoms Blood Urea Nitrogen 11 8 - 18 mg/dL [facility] Creatinine 0.62(L) 0.70 - 1.20 mg/dL [facility] Sodium 137 135 - 145 mmol/L [facility] Potassium 4.1 3.5 - 5.0 mmol/L [facility] Comment: Please note: ??Patients with WBC >100,000 may have falsely elevated Potassium levels. ??For accurate Potassium quantification in these patients send serum separator tube (gold top) for subsequent determinations. ??Contact the Clinical Chemistry Laboratory if there are any questions. Chloride 105 98 - 107 mmol/L [facility] Carbon Dioxide 22 22 - 31 mmol/L [facility] Anion Gap 10 5 - 15 mmol/L [facility] Calcium 8.5 8.5 - 10.5 mg/dL [facility] Est Glomerular Filtration Rate 107 >=60 mL/min/1. 73 m?? [facility] Comment: This patient? [...] In Lab Moi Ledezma MD CHEMISTRY ORDERABLES [facility] [place] [address] * COVID-19 PCR (01/04/2022 12:50 AM EDT) SARS-CoV-2 RNA (Rapid) Not Detected Not Detected [facility] Comment: This result [...] using the Simplexa COVID-19 Direct Assay by [employer] as authorized by the FDA issued Emergency [...] Department of Pathology and Laboratory Medicine at [facility], certified under the Clinical Laboratory Improvement [...] fact sheets at the following FDA website: https://www.fda.gov/medical-devices/xpnzyutvefz-mlpufkn-0641-uopwb-82-utyriizya- use-a cgxgeeeeeicyd-sdbbxwr-yuohzmc/coxyt-wpxducgzdqf-vpdw SARS-CoV-2 Source [employer] MA RY [facility]3] LABORATORY Nasopharyngeal Swab 01/05/20 12:50 AM EDT 01/04/2022 1:48 AM EDT Comment:Symptoms->Surveillan ce Narrative Resulting Agency Comment Spec In Lab Moi Ledezma MD MICROBIOLOGY - GENER AL ORDERABLES Performing Organization Address City/[facility]/ZIP Co de Phone Number [facility] [place] [address] * EKG 12 Lead (01/04/2022 12:45 AM EDT) Pathologist [facility] Ventricular rate 94 BPM MUSE SYSTEM Atrial Rate 94 BPM MUSE SYSTEM P-R Interval 140 ms MUSE SYSTEM QRS Duration 92 ms MUSE SYSTEM Q-T Interval 370 ms MUSE SYSTEM QTC Calculated (Bezet) 462 ms MUSE SYSTEM Calculated P Homer 69 degrees MUSE SYSTEM Calculated R Homer 2 degrees MUSE SYSTEM Calculated T Homer 89 degrees MUSE SYSTEM INTERPRETATION Normal sinus rhythm Low voltage QRS Nonspecific ST and T wave abnormality Abnormal ECG When compared with ECG of 13-NOV-1999 14:45, ST now depressed in Anterior leads Nonspecific T wave abnormality now evident in Lateral leads Confirmed by MD Umm, Geraldo Espinoza ([id number]) on 01/04/2022 1:03:04 PM MUSE SYSTEM 01/04/2022 12:4 5 AM EDT 01/04/2022 1:03 PM EDT Moi Ledezma MD ECG ORDERABLES MUSE SYSTEM * POCT Glucose (01/04/2022 12:07 AM EDT) Glucose, POC 126 65 - 199 mg/dL [facility] Comment: Supplemental ranges: <140 mg/dL before meals <180 mg/dL all other times of the day Blood 01/04/2022 12:0 7 AM EDT 01/04/2022 12:07 AM EDT Moi Ledezma MD POINT OF CARE TEST O RDERABLES Performing Organization Address City/State/[facility] [facility] Co de Phone Number [facility] [place] [address] * CARDIAC CATHETERIZATION (01/03/2022 11:45 PM EDT) Anatomical Region Laterality Modality Other Narrative 01/03/2022 11:54 PM EDT ?[facility] ? Cardiac Catheterization/Intervention Report ? Patient Name: Afua Rosales. ? Procedure Date: 01/03/2022 ? A #: [id number] ? Primary Physician: Moi Ledezma ? Case #: [id number] ? File Name: [id number] ? Catheterization Order Number: [id number] ? [facility] ? Final Report [place], [place] ? Patient Name: ? Afua A. Silver ?ID#: ?[id number] ? : ?1975 ? Procedure Date: ? [...] was ?designated as ASA Class IV. The [facility] clinical frailty scale is 5: Mildly ?Frail. ? Diagnostic Tests: ?Electrocardiography: ? EKG was assessed by ECG. EKG was Abnormal. EKG showed ST Deviation ? >= 0.5 mm and other abnormality. ?Medications Prior to Procedure: ? Aspirin, Statin and Thrombolytic (any). ? Indications for Diagnostic Cath: ?The priority of the diagnostic procedure was Emergent. 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 ??Imaging ?was successful. ??Image quality was excellent. ??The mid RCA showed severe ?diffuse atherosclerotic plaque. ??Measurements were performed after ?pre-dilation. ?Post Intervention: The stent was well expanded and apposed. ?Intravascular Ultrasound was performed in the distal RCA using a 6 Fr JR ?4 SH guiding catheter and a 3.5 Fr [facility] [address] ??20 Mhz. ?Imaging was successful. ??Image [...] dose administered prior to arrival in the boat laborer. ?Recommended anti-platelet/anti-thrombotic regimen: ?Start aspirin 81 mg daily now and continue for indefinitely. ?Start clopidogrel 75 mg daily now and continue for 12 months then stop. ?These recommendations are made at the time of the intervention. Patient ?and provider preferences or a changing clinical situation may require ?modification of this regimen. Consult [facility] Interventional Cardiology for ?questions. ?The 1 year [...] against any medical treatment. Consult ?http://tools.acc.org/DAPTriskapp/#!/content/calculator/ or [facility] ?Interventional Cardiology for questions ? Conclusions: ?* [...] Procedure Note Moi Ledezma MD - 01/14/2022 [facility] Cardiac Catheterization/Intervention Report Patient Name: Afua Rosales Procedure Date: 01/03/2022 A #: [id number] Primary Physician: Moi Ledezma Case #: [id number] File Name: [id number] Catheterization Order Number: [id number] [facility] FinalReport [place], [place] Patient Name: Afua Rosales ID#:[id number] :1975 Procedure Date: January 03, 2022 Case [...] patientwas designated as ASA Class IV. The [facility] clinical frailty scale is 5:Mildly Frail. Diagnostic Tests: Electrocardiography: EKG was assessed by ECG. EKG was Abnormal. EKG showed STDeviation >= 0.5 mm and other abnormality. Medications Prior to Procedure: Aspirin, Statin and Thrombolytic (any). Indications for Diagnostic Cath: The priority of the diagnostic procedure was Emergent. Theindication for the boat laborer visit is ACS less than or [...] SH guiding catheter and a 3.5 Fr [facility] [address] 20 Mhz.Imaging was successful. Image quality was excellent. The mid RCA showedsevere diffuse atherosclerotic plaque. Measurements were performed after pre-dilation. Post Intervention: The stent was well expanded and apposed. Intravascular Ultrasound was performed in the distal RCA using a 6Fr JR 4 SH guiding catheter and a 3.5 Fr [facility] [address] 20 Mhz. Imaging was successful. Image quality was excellent. The distalRCA showed severe diffuse atherosclerotic plaque. Measurements were performed after pre-dilation. Post Intervention: The stent was well expanded and apposed. Indication for Intervention: Coronary intervention was indicated for primary therapy for an acute myocardial infarction. The priority for the procedure was Emergent.The [facility] indication for the procedure was STEMI (after [...] The lesion was predilated with a 2.00mm [id number] MM balloon with a maximum inflation pressure [...] dose administered prior to arrival in the boat laborer. Recommended anti-platelet/anti-thrombotic regimen: Start aspirin 81 mg daily now and continue for indefinitely. Start clopidogrel 75 mg daily now and continue for 12 months thenstop. These recommendations are made at the time of the intervention.Patient and provider preferences or a changing clinical situation mayrequire modification of this regimen. Consult [facility] Interventional Cardiologyfor questions. The 1 year bleeding [...] or against any medical treatment.Consult http://tools.acc.org/DAPTriskapp/#!/content/calculator/ or [facility] Interventional Cardiology for questions Conclusions: * Two [...] Glucose, POC 200(H) 65 - 199 mg/dL [facility] Comment: Supplemental ranges: <140 mg/dL before meals <180 mg/dL all other times of the day Blood 01/03/2022 11:3 1 PM EDT 01/03/2022 11:31 PM EDT Moi Ledezma MD POINT OF CARE TEST O RDERABLES [facility] [place] [address] * (ABNORMAL) POCT Glucose (01/03/2022 10:56 PM EDT) Glucose, POC 265(H) 65 - 199 mg/dL [facility] Comment: Supplemental ranges: <140 mg/dL before meals <180 mg/dL all other times of the day Blood 01/03/2022 10:5 6 PM EDT 01/03/2022 10:56 PM EDT Moi Ledezma MD POINT OF CARE TEST O RDERABLES [facility] [place] [address] * (ABNORMAL) Point of Care Blood Gas Historical (01/03/2022 10:38 PM EDT) pH, POC 7.35 7.35 - 7.45 [facility] pCO2, POC 46(H) 35 - 45 mmHg [facility] pO2, POC 93 85 - 104 mmHg [facility] Base Excess, POC 0.0 -3.0 - 3.0 mmol/L [facility] Bicarbonate, POC 25.3 20.0 - 26.0 mmol/L [facility] Sodium, POC 141 135 - 145 mmol/L [facility] POC Potassium 3.7 3.5 - 5.0 mmol/L [facility] Ionized Calcium, POC 1.26 1.15 - 1.33 mmol/L [facility] POC Hematocrit 35.0 34.0 - 45.0 % [facility] POC Calc Hgb 11.9 11.2 - 15.7 g/dL [facility] Comment:The calculation of h emoglobin from hematocrit assumes a normal MCHC. POC Bgas Loc CC LAB [facility] Blood 01/03/2022 10:3 8 PM EDT 01/09/2022 12:00 PM EDT Geraldo Salomon MD CHEMISTRY ORDERABLES [facility] [place] [address] * (ABNORMAL) POCT Glucose (01/03/2022 10:37 PM EDT) Glucose, POC 63(L) 65 - 199 mg/dL [facility] Comment: Supplemental ranges: <140 mg/dL before meals <180 mg/dL all other times of the day Blood 01/03/2022 10:3 7 PM EDT 01/03/2022 10:37 PM EDT Moi Ledezma MD POINT [place] [address] documented in this encounter Visit Diagnoses Diagnosis [...] Routine documented in this encounter Care Teams Shank Archer Relationship Specialty Start Date End Date Felisha Juan, FACILITIES MAINTENANCE ENGINEER [address] [place] [address] PCP - General Family Medicine 10/29/15 01/29/22 documented as of this encounter
--- OUTSIDE RECORDS SUMMARY | 2024-06-17 14:48 | XMS_ITS | Encounter Summary ---
Author Organization [facility] Address [facility] [place] [address] Care Team Providers Care Church Warden Name Role Phone Yessica Felisha OFFICE CLIN ASST Primary Care Provider Encounter Details Date Type Department Care Team (Late st Contact Info) Description 01/03/2022 External Results [place] [address] Social History Tobacco Use Types Packs/Day Years [...] on filedocumented in this encounter Care Teams Church Warden Relationship Specialty Start Date End Date Felisha Juan APRN [address] [place] [address] PCP - General Family Medicine 10/29/15 01/29/22 documented as of this encounter
--- OUTSIDE RECORDS SUMMARY | 2024-06-17 14:48 | XMS_ITS | Encounter Summary ---
Author Organization [facility] Address [facility] [place] [address] Care Team Providers Care Sawmilling Operator Name Role Phone Felisha Juan APRN Primary Care Provider + [phone] Encounter Details Date Type Department Care Team (Late st Contact Info) Description 01/03/2022 Notes Only Cardiology [facility] [place] [address] Madi Briceño MD [facility] [place] [address] Social History Tobacco Use Types Packs/Day Years [...] 8:25 PM Hospital to which patient presented: [facility] [place] [facility] patient presented[facility] Walk In Date and Time of [...] and inferior stemi STEMI Alert called: Yes Vault Attendant Activated by: Food Service Steward Initial Disposition: Admit Vault Attendant documented in this encounter Plan of Treatment Not on file documented as of this encounter Visit Diagnoses Not on filedocumented in this encounter Care Teams Sawmilling Operator Relationship Specialty Start Date End Date Felisha Juan, DEMETRIS [address] [place] [address] PCP - General Family Medicine 10/29/15 01/29/22 documented as of this encounter
--- OUTSIDE RECORDS SUMMARY | 2024-06-17 14:48 | XMS_ITS | Encounter Summary ---
Author Organization [facility] Address [facility] [place] [address] Care Team Providers Care Disability Case Manager Name Role Phone Jose Pittman Primary Care Provider + [phone] Reason for Visit * Reason Onset Date Comments Medication Refill 11/09/2017 Encounter Details Date Type Department Care Team (Late st Contact Info) Description 11/09/2017 Refill [place] [address] Francoise Tan [facility] [place] [address] Diabetes mellitus without complication Social History Tobacco [...] uncontrolled documented in this encounter Care Teams Disability Case Manager Relationship Specialty Start Date End Date Jose Pittman PA [address] [place] [address] PCP - General Internal Medicine 01/30/22 04/01/24 documented as of this encounter
--- OUTSIDE RECORDS SUMMARY | 2024-06-17 14:48 | XMS_ITS | Encounter Summary ---
Author Organization [facility] [place] [address] Care Team Providers Care Medical Instructor Name Role Phone Felisha Juan APRN Primary Care Provider + [phone] Encounter Details Date Type Department Care Team (Late st Contact Info) Description 08/18/2017 Notes Only Endocrinology at [facility] [place] [address] Danielle Trejo, GUSTAVO Social History Tobacco Use [...] on filedocumented in this encounter Care Teams Medical Instructor Relationship Specialty Start Date End Date Felisha Juan APRN [address] [place] [address] PCP - General Family Medicine 10/29/15 01/29/22 documented as of this encounter
--- OUTSIDE RECORDS SUMMARY | 2024-06-17 14:48 | XMS_ITS | Encounter Summary ---
Author Organization [facility] Address [facility] [place] [address] Care Team Providers Care Recreation Aide Name Role Phone Felisha Juan APRN Primary Care Provider + [phone] Reason for Visit * Reason Onset Date Comments Medication Problem 11/19/2020 Encounter Details Date Type Department Care Team (Late st Contact Info) Description 11/19/2020 Telephone [place] [address] Carlos Ann MD [facility] [place] [address] Medication Problem Social History Tobacco Use Types [...] he asked to have them sent to [email or web address] instead. Delano stated the phone number to [email or web address] is [phone]. Please call Delano with any questions . [...] filedocumented in this encounter Care Teams Recreation Aide Relationship Specialty Start Date End Date Felisha Juan, DEMETRIS [address] [place] [address] PCP - General Family Medicine 10/29/15 01/29/22 documented as of this encounter
--- OUTSIDE RECORDS SUMMARY | 2024-06-17 14:48 | XMS_ITS | Encounter Summary ---
Author Organization [facility] Address [facility] [place] [address] Care Team Providers Care Acute Dialysis Registered Nurse Name Role Phone Yessica Felisha WILLSON Primary Care Provider [phone] Encounter Details Date Type Department Care Team (Late st Contact Info) Description 01/03/2022 [place] [address] Madi Briceño MD [facility] [place] [address] Social History Tobacco Use Types Packs/Day Years [...] on filedocumented in this encounter Care Teams Acute Dialysis Registered Nurse Relationship Specialty Start Date End Date Felisha Juan APRN [address] [place] [address] PCP - General Family Medicine 10/29/15 01/29/22 documented as of this encounter
--- OUTSIDE RECORDS SUMMARY | 2024-06-17 14:48 | XMS_ITS | Encounter Summary ---
Author Organization [facility] Address [facility] [place] [address] Care Team Providers Care Clinical Laboratory Scientist Name Role Phone Felisha Juan APRN Primary Care Provider [phone] Encounter Details Date Type Department Care Team (Late st Contact Info) Description 03/03/2016 Orders [place] [address] Rosie Tao MD [facility] [place] [address] Diabetes mellitus without complication Social History Tobacco [...] uncontrolled documented in this encounter Care Teams Clinical Laboratory Scientist Relationship Specialty Start Date End Date Felisha Juan APRN [address] [place] [address] PCP - General Family Medicine 10/29/15 01/29/22 documented as of this encounter
--- OUTSIDE RECORDS SUMMARY | 2024-06-17 14:48 | XMS_ITS | Encounter Summary ---
Author Organization [facility] [place] [address] Care Team Providers Care Automobile Lights Assembler Name Role Phone Felisha Juan APRN Primary Care Provider + [phone] Encounter Details Date Type Department Care Team (Late st Contact Info) Description 08/04/2017 [place] [address] Danielle Trejo, RN Social History Tobacco Use [...] on filedocumented in this encounter Care Teams Automobile Lights Assembler Relationship Specialty Start Date End Date Felisha Juan APRN [address] [place] [address] PCP - General Family Medicine 10/29/15 01/29/22 documented as of this encounter
--- OUTSIDE RECORDS SUMMARY | 2024-06-17 14:48 | XMS_ITS | Encounter Summary ---
Author Organization [facility] [place] [address] Care Team Providers Care Talent Acquisition Program Manager Name Role Phone Yessica Felisha TESTER OPERATOR HELPER Primary Care Provider [phone] Encounter Details Date Type Department Care Team (Late st Contact Info) Description 08/17/2017 Notes Only Endocrinology at [facility] [place] [address] Huong Ovalle, RN Social History Tobacco Use [...] in this encounter Care Teams Talent Acquisition Program Manager Relationship Specialty Start Date End Date Felisha Juan APRN [address] [place] [address] PCP - General Family Medicine 10/29/15 01/29/22 documented as of this encounter
--- OUTSIDE RECORDS SUMMARY | 2024-06-17 14:48 | XMS_ITS | Encounter Summary ---
Author Organization [facility] [place] [address] Care Team Providers Care Sweater Operator Name Role Phone Yessica Felisha WILLSON Primary Care Provider [phone] Encounter Details Date Type Department Care Team (Late st Contact Info) Description 11/23/2020 Notes Only Endocrinology at [facility] [place] [address] Micki Leone, RN ASSESSMENT Social History Tobacco Use Types Packs/Day Years Used Date Smoking Tobacco: Never Smokeless Tobacco: Never Sex and Gender Information Value Date Recorded Sex Assigned at Not on file Gender Identity Not on file Sexual Orientation Not on file documented as of this encounter Progress Notes * Micki Leone RMA - 11/23/2020 1:18 PM EDT [facility] Diabetic Supplies faxed to [employer]. Confirmation received. documented in this encounter Plan of Treatment Not on file documented as of this encounter Visit Diagnoses Not on filedocumented in this encounter Care Teams Sweater Operator Relationship Specialty Start Date End Date Felisha Juan APRN [address] [place] [address] PCP - General Family Medicine 10/29/15 01/29/22 documented as of this encounter
--- OUTSIDE RECORDS SUMMARY | 2024-06-17 14:48 | XMS_ITS | Encounter Summary ---
Author Organization [facility] [place] [address] Care Team Providers Care Cra Officer Name Role Phone Yessica Felisha FISH HOUSE WORKER Primary Care Provider + [phone] Reason for Visit * Reason Onset Date Comments Medication Refill 03/03/2019 Encounter Details Date Type Department Care Team (Late st Contact Info) Description 03/03/2019 Refill [place] [address] Francoise Tan FISH HOUSE WORKER [facility] [place] [address] Diabetes mellitus without complication Social History Tobacco [...] uncontrolled documented in this encounter Care Teams Cra Officer Relationship Specialty Start Date End Date Felisha Juan APRN [address] [place] [address] PCP - General Family Medicine 10/29/15 01/29/22 documented as of this encounter
--- OUTSIDE RECORDS SUMMARY | 2024-06-17 14:48 | XMS_ITS | Encounter Summary ---
Author Organization [facility] [place] [address] Care Team Providers Care Handbag Operator Name Role Phone Felisha Juan DEMETRIS Primary Care Provider + [phone] Reason for Visit * Reason Comments Diabetes Encounter Details Date Type Department Care Team (Latest Contact Info) Description 09/29/2017 10:30 AM EST Office [place] [address] Francoise Tan APRN [facility] [address] [place] [address] Type 1 diabetes mellitus with proliferative retinopathy [...] APRN - 09/29/2017 10:30 AM EST [facility] in [place] for dental care. Soft brush and floss Contact [facility] [place] documented in this encounter Progress Notes * [...] TSH ,microalbumin. Gaver her information to contact [facility] for dental care. This was a 38 minute office visit with 27 minutes spent counseling [id number] with patient and friend in the management [...] Stimulating Hormone 0.63 0.27 - 4.20 mlU/ML [facility] Blood specimen (specimen) 09/29/2017 11:39 AM EST 09/29/2017 11:49 AM EST Narrative Resulting Agency Comment Spec In Lab Francoise Tan APRN CHEMISTRY ORDERABLE S [facility] [place] [address] * (ABNORMAL) Hemoglobin A1c (09/29/2017 11:39 AM EST) Hemoglobin A1c 7.4(H) 4.3 - 5.6 % [facility] [...] Mellitus, Diabetes Care 2013; 36: Suppl. 1, M41-77 Estimated Average Glucose 166 mg/dL [facility] Comment: eAG [...] into estimated average glucose values. ??Diabetes Care 2008:31(8):0450-8757. Blood specimen (specimen) 09/29/2017 11:39 AM EST 09/29/2017 11:49 AM EST Narrative Resulting Agency Comment Spec In Lab Francoise Tan APRN CHEMISTRY ORDERABLE S [facility] [place] [address] * U Albumin/Cre Ratio (09/29/2017 11:30 AM [...] [facility] Creatinine, Urine 42 mg/dL [facility] Urine specimen (specimen) 09/29/2017 11:30 AM EST 09/29/2017 11:40 AM EST Narrative Resulting Agency Comment Spec In Lab Francoise Tan APRN URINE ORDERABLES [facility] [place] [phone] documented in this encounter Visit Diagnoses Diagnosis 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
--- OUTSIDE RECORDS SUMMARY | 2024-06-17 14:48 | XMS_ITS | Encounter Summary ---
Author Organization [facility] Address [facility] [place] [address] Care Team Providers Care System Support Analyst Name Role Phone Felisha Juan APRN Primary Care Provider + [phone] Encounter Details Date Type Department Care Team ([facility] st Contact Info) Description 11/13/2020 1:00 PM EDT Office [place] [address] Breana Tee MD [facility] [place] [address] Controlled type 1 diabetes mellitus with retinopathy [...] 1:00 PM EDT Diabetes Follow-up Patient Evaluation [facility] Name: Kailey Hernandez Date: 11/13/20 CC: Diabetes management HPI: Kailey Hernandez is a 45 y.o.female with PMH significant for DM1 c/b b/l retinopathy and blindness who comes to the clinic for management of diabetes. Ms. Hernandez is doing well with no acute concerns about her DM management. Initially during the visit, she stated that she received a letter from [facility] that stated she can no [...] snacks/day * Breakfast: PB sandwich * Lunch: Tiller? steak on a burger bun * Dinner: Part of a subway sandwich * Snacks: Crackers, cheese * Desserts: No * Drinks: No 2019QI Exercise: Predominantly walking Prevention: Statin: Pravastatin 20 mg (no hx of intolerance) NATE/ARB: None Support and Resources: - Visit with surgical brace maker in the last 2 years: No ROS: [...] seen and discussed with Attending Physician, Dr. Wrihgt. Follow up in 6 months. Breana Tee MD Endocrinology, Diabetes and Metabolism 11/13/2020 * Olegario Wright DO - 11/13/2020 1:00 PM EDT I have seen the patient and reviewed Dr Tee's history and I agree with the details as written. Theassessment and plan were formulated in discussion with me and I agree with them as documented. Olegario Wright DO, MS Die Out Workerambulatory care Section of Endocrinology [facility] documented in this encounter Plan of Treatment Not on file documented as of this encounter Visit Diagnoses Diagnosis Controlled type 1 diabetes mellitus with retinopathy of both eyes, macular edema presence unspecified, unspecified retinopathy severity documented in this encounter Care Teams System Support Analyst Relationship Specialty Start Date End Date Felisha Juan, DEMETRIS [address] [place] [address] PCP - General Family Medicine 10/29/15 01/29/22 documented as of this encounter
--- OUTSIDE RECORDS SUMMARY | 2024-06-17 14:48 | XMS_ITS | Encounter Summary ---
Author Organization [facility] [place] [address] Care Team Providers Care Smoke Room Operator Name Role Phone Yessica Felisha WILLSON Primary Care Provider [phone] Reason for Visit * Reason Onset Date Comments Pump/sensor 02/07/2021 Encounter Details Date Type Department Care Team (Late st Contact Info) Description 02/07/2021 Telephone [place] [address] Tosin Solares Pump/sensor Social History Tobacco Use Types Packs/Day Years Used Date Smoking Tobacco: Never Smokeless Tobacco: Never Sex and Gender Information Value Date Recorded Sex Assigned at Not on file Gender Identity Not on file Sexual Orientation Not on file documented as of this encounter Miscellaneous Notes * Telephone Encounter - Tosin Solares - 02/07/2021 7:32 AM EDT Documentation request received from [facility]. 11/13/20 office notes routed Confirmed 02/07 documented in this encounter Plan of Treatment Not on file documented as of this encounter Visit Diagnoses Not on filedocumented in this encounter Care Teams Smoke Room Operator Relationship Specialty Start Date End Date Felisha Juan APRN [address] [place] [address] PCP - General Family Medicine 10/29/15 01/29/22 documented as of this encounter
--- OUTSIDE RECORDS SUMMARY | 2024-06-17 14:48 | XMS_ITS | Encounter Summary ---
Author Organization [facility] [place] [address] Care Team Providers Care Aquatics Specialist Name Role Phone Yessica Felisha ACTIVE DIRECTORY ENGINEER Primary Care Provider [phone] Reason for Visit * Reason Onset Date Comments Medication Refill 11/12/2017 Encounter Details Date Type Department Care Team (Late st Contact Info) Description 11/12/2017 [place] [address] Francoise Tan ACTIVE DIRECTORY ENGINEER [facility] [address] [place] [address] Diabetes mellitus without complication Social History Tobacco [...] uncontrolled documented in this encounter Care Teams Aquatics Specialist Relationship Specialty Start Date End Date Felisha Juan APRN [address] [place] [address] PCP - General Family Medicine 10/29/15 01/29/22 documented as of this encounter
--- OUTSIDE RECORDS SUMMARY | 2024-06-17 14:48 | XMS_ITS | Encounter Summary ---
Author Organization [facility] [place] [address] Care Team Providers Care Solar Project Coordination Specialist Name Role Phone Felisha Juan APRN Primary Care Provider [phone] Encounter Details Date Type Department Care Team (Late st Contact Info) Description 11/09/2017 Orders Only [place] [address] Francoise Tan APRN [facility] [address] [place] [address] Social History Tobacco Use Types Packs/Day Years [...] on filedocumented in this encounter Care Teams Solar Project Coordination Specialist Relationship Specialty Start Date End Date Felisha Juan APRN [address] [place] [address] PCP - General Family Medicine 10/29/15 01/29/22 documented as of this encounter
--- OUTSIDE RECORDS SUMMARY | 2024-06-17 14:49 | XMS_ITS | Encounter Summary ---
Author Organization [facility] Address [address] [place] [address] Care Team Providers Care Oyster Planter Name Role Phone Unknown, Provider MD Primary Care Provider Unava ilable Encounter Details Date Type Department Care Team (Late st Contact Info) Description 12/04/2021 Lab Requisition [facility] Pathology & Laboratory Medicine - [facility] [address] [place] [address] Outr Resulting Lab, Provider Social History Tobacco Use Types Packs/Day Years Used Date Smoking Tobacco: Never Assessed Comments Unknown Sex and Gender Information Value Date Recorded Sex Assigned at Not on file Legal Sex Female 11:01 EDT Gender Identity Not on file Sexual Orientation [...] C Antibody Negative Negative 12/05/2021 11:10 EDT [facility] Blood VENOUS BLOOD / Unknown 12/04/2021 11:00 EDT 12/04/2021 21:57 EDT us Provider Outr Resulting Lab CHEMISTRY & BLOOD GA S ORDERABLES Final Result [facility] [address] [place] [address] documented in this encounter Visit Diagnoses Not on filedocumented in this encounter Care Teams Oyster Planter Relationship Specialty Start Date End Date Unknown, Provider, PCP - General 01/18/16 documented as of this encounter
--- OUTSIDE RECORDS SUMMARY | 2024-06-17 14:49 | XMS_ITS | Encounter Summary ---
Author Organization [facility] Address [address] [place] [address] Care Team Providers Care Product Safety Technician Name Role Phone Unknown, Provider Primary Care Provider Unava ilable Encounter Details Date Type Department Care Team (Late st Contact Info) Description 01/17/2016 Results Only [facility] [phone] Felisha Mckinnon NP [address] [place], [place] [id number] Social History Tobacco Use Types Packs/Day Years [...] reading/interpreti ng unformatted reports. Name: ? KAILEY ROSALES ? Accession #: ? [id number] ? : ? 1975 (Age: 40) ??F ?Collect Date: ? 01/17/2016 ? Location: ? [facility] ? Receive Date: ? 01/18/2016 ? Provider: FELISHA MCKINNON SHEET COMBINING OPERATOR Copy to: ? Final Report SPECIMEN ADEQUACY ? Satisfactory for Evaluation - transformation zone component absent GENERAL CATEGORIZATION ? Negative for Intraepithelial Lesion or Malignancy ?? Menstrual/Pregnanc y Status: ??Spotting: vaginal Previous Gynecologic Pathology: Adenocarcinoma: cervical CA Treatment History: Hysterectomy: HX Specimen/Source: ??Pap Test, Endocervix, ThinPrep Imaging System with manual evaluation Document reviewed and electronically signed by: ? Candy Rivas, CT(ASCP) ? Report ??Date: 01/30/2016 12:03 HPV with Pap Test ? Date Ordered: ? 01/30/2016 ? Status: ?? Signed Out ?Date Complete: ? 02/01/2016 ? By: ??System Interface ? Date Reported: ? 02/01/2016 ? Interpretation RESULT: Negative for HPV. No E6 or E7 mRNA is detected from HPV types 16,18,31,33,35, 39,45,51,52,56,58, 59,66, and 68 by creel hand mediated amplification. Comments Document reviewed and electronically signed by: ? System Interface ? Report date: 02/01/2016 By the signature above, the attending physician certifies that he/she has personally conducted a gross and/or microscopic examination of the described specimens and rendered or confirmed the above diagnosis. End of Report [facility] 01/17/2016 01/18/2016 us Felisha Mckinnon SHEET COMBINING OPERATOR PATHOLOGY ORDERABLES Final Res ult [facility] [address] [place] [address] documented in this encounter Visit Diagnoses Not on filedocumented in this encounter Care Teams Product Safety Technician Relationship Specialty Start Date End Date Unknown, Provider, PCP - General 01/18/16 documented as of this encounter
--- OUTSIDE RECORDS SUMMARY | 2024-06-17 14:49 | XMS_ITS | Encounter Summary ---
Author Organization [facility] Address [facility] [place] [address] Care Team Providers Care Speeder Hand Name Role Phone Carey Hall MD Primary Care Provider [phone] Reason for Visit * Reason Comments Nail Problem Encounter Details Date Type Department Care Team ([facility] Contact Info) Description 09/19/2011 10:15 AM EST Office Visit Podiatry at [address] [place] [address] Ritesh Mackey Jr., DPM [address] [place] [address] [place] [address] Other specified disease of nail (Primary Dx) [...] Primary documented in this encounter Care Teams Speeder Hand Relationship Specialty Start Date End Date Carey Hall MD [address] [place] [address] PCP - General 06/25/10 10/28/15 documented as of this encounter
--- OUTSIDE RECORDS SUMMARY | 2024-06-17 14:49 | XMS_ITS | Encounter Summary ---
Author Organization [facility] Address [facility] [place] [address] Care Team Providers Care Child Development Associate Teacher Name Role Phone Carey Hall MD Primary Care Provider [phone] Reason for Visit * Reason Comments Diabetic Foot Care Encounter Details Date Type Department Care Team ([facility] st Contact Info) Description 08/15/2013 9:30 AM EST Office Visit Podiatry at [address] [place] [address] Ritesh Mackey Jr., [facility] [address] [facility] [place] [address] Dermatophytosis of nail (Primary Dx); Pain in [...] on palpation. Nails display clinical signs of mxjwhkt-vjpbpoctcf-diqkek in appearance, thickened greater than 2mm, Brittle [...] clearly painful. 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
--- OUTSIDE RECORDS SUMMARY | 2024-06-17 14:49 | XMS_ITS | Encounter Summary ---
Author Organization [facility] Address [facility] [place] [address] Care Team Providers Care Electronic Controls Repairer Supervisor Name Role Phone Carey Hall MD Primary Care Provider [phone] Reason for Visit * Reason Comments Diabetic Foot Care Encounter Details Date Type Department Care Team ([facility] st Contact Info) Description 11/05/2012 2:45 PM EDT Office Visit Podiatry at [address] [place] [address] Ritesh Mackey Jr., [facility] [address] [place] [address] [place] [address] Other specified disease of nail (Primary Dx) [...] Primary documented in this encounter Care Teams Electronic Controls Repairer Supervisor Relationship Specialty Start Date End Date Carey Hall MD [address] [place] [address] PCP - General 06/25/10 10/28/15 documented as of this encounter
--- OUTSIDE RECORDS SUMMARY | 2024-06-17 14:49 | XMS_ITS | Encounter Summary ---
Author Organization [facility] Address [facility] [place] [address] Care Team Providers Care Buffer Inflated Pad Name Role Phone Carey Hall MD Primary Care Provider [phone] Encounter Details Date Type Department Care Team (Late st Contact Info) Description 02/07/2014 2:00 PM EDT Office Visit Podiatry at [address] [place] [address] Ritesh Mackey Jr., [address] [place] [address] Dermatophytosis of nail; Pain in limb; DM [...] on palpation. Nails display clinical signs of sowlxfr-safwfvutcj-jeanyb in appearance, thickened greater than 2mm, Brittle [...] uncontrolled documented in this encounter Care Teams Buffer Inflated Pad Relationship Specialty Start Date End Date Carey Hall MD [address] [address] PCP - General 06/25/10 10/28/15 documented as of this encounter
--- OUTSIDE RECORDS SUMMARY | 2024-06-17 14:49 | XMS_ITS | Encounter Summary ---
Author Organization [facility] Address [facility] [place] [address] Care Team Providers Care Advertising Inserter Name Role Phone Carey Hall MD Primary Care Provider [phone] Reason for Visit * Reason Comments Routine Foot Care Encounter Details Date Type Department Care Team (Late st Contact Info) Description 04/11/2011 10:45 AM EDT Office Visit Podiatry [address] [place] [address] Ritesh Mackey Jr., DPM [address] [facility] [place] [address] Other specified disease of nail (Primary Dx) [...] encounter Miscellaneous Notes * Miscellaneous - Carrington, Senior Systems Architect - 05/01/2011 3:53 PM EDT documented in this encounter Plan of Treatment Not on file documented as of this encounter Visit Diagnoses Diagnosis Other specified disease of nail- Primary documented in this encounter Care Teams Advertising Inserter Relationship Specialty Start Date End Date Carey Hall MD [address] [address] PCP - General 06/25/10 10/28/15 documented as of this encounter
--- OUTSIDE RECORDS SUMMARY | 2024-06-17 14:49 | XMS_ITS | Clinical Summary ---
Author Organization [facility] Address [address] [place] [address] Care Team Providers Care Waste Management Recycling Technician Name Role Phone Unknown, Provider MD Primary Care Provider Unava ilable Encounters Date Type Department Care Team Description 05/30/2024 Lab Requisition [facility] Pathology & Laboratory Medicine - [facility] [address] [place] [address] Outr Resulting Lab, Provider from Last 3 Months Social History Tobacco Use Types Packs/Day Years [...] 3-dose series) 03/25 COVID-19 Vaccine ( season) 2024 Hepatitis C Screen Completed 12/04/2021 Procedures Procedure Name Priority Date/Time Associated Diagnosis Comments T3 FREE Routine 05/30/2024 10:09 EDT T3, TOTAL Routine 05/30/2024 10:09 EDT HEPATITIS C AB W REFLEX TO HCV RNA BY PCR Routine 12/04/2021 11:00 EDT from Last 3 Months or Most Recently Relevant to Health Maintenance Results * T3 FREE (05/30/2024 10:09 EDT) T3, Free 4.0 2.8 - 5.3 pg/mL 05/30/2024 17:34 EDT [facility] Blood VENOUS BLOOD / Unknown 05/30/2024 10:09 EDT 05/30/2024 17:01 EDT us Provider Outr Resulting Lab CHEMISTRY & BLOOD GA S ORDERABLES Final Result [facility] [address] [place] [address] * T3, TOTAL (05/30/2024 10:09 EDT) Pathologist [facility] T3, Total 147 97 - 169 ng/dL 05/30/2024 17:50 EDT [facility] Blood VENOUS BLOOD / Unknown 05/30/2024 10:09 EDT 05/30/2024 17:01 EDT us Provider Outr Resulting Lab CHEMISTRY & BLOOD GA S ORDERABLES Final Result Performing Organization Address [facility]/ZIP Co de Phone Number [facility] [address] [place], [place] [address] * HEPATITIS C AB W REFLEX TO HCV RNA BY PCR (12/04/2021 11:00 EDT) [facility] Hep C Antibody Negative Negative 12/05/2021 11:10 EDT [facility] Blood VENOUS BLOOD / Unknown 12/04/2021 11:00 EDT 12/04/2021 21:57 EDT us Provider Outr Resulting Lab CHEMISTRY & BLOOD GA S ORDERABLES Final Result [facility] [address] [place] [address] from Last 3 Months or Most Recently Relevant to Health Maintenance Care Teams Waste Management Recycling Technician Relationship Specialty Start Date End Date Unknown, Provider, PCP - General 01/18/16
--- OUTSIDE RECORDS SUMMARY | 2024-06-17 14:49 | XMS_ITS | Encounter Summary ---
Author Organization [facility] Address [address] [place] [address] Care Team Providers Care Optical Systems Engineer Name Role Phone Unknown, Provider Primary Care Provider Unava ilable Encounter Details Date Type Department Care Team (Late st Contact Info) Description 12/04/2021 Lab Requisition [facility] Pathology & Laboratory Medicine - [facility] [address] [place] [address] Outr Resulting Lab, Provider Social History Tobacco [...] 4th Generation Negative Negative 12/05/2021 10:51 EDT [facility] Comment:If acute HIV-1 infec tion is suspected in a high risk patient, submit plasma specimen for HIV-1 RNA quantitation test. Blood VENOUS BLOOD / Unknown 12/04/2021 11:00 EDT 12/04/2021 22:05 EDT Narrative [facility] - 12/05/2021 10:51 EDT Fourth Generation assay performed on the Siemens Gilon [employer] Insightaur XPT. us Provider Outr Resulting Lab IMMUNOLOGY AND SEROL OGY ORDERABLES Final Result [facility] [address] [place] [address] documented in this encounter Visit Diagnoses Not on filedocumented in this encounter Care Teams Optical Systems Engineer Relationship Specialty Start Date End Date Unknown, Provider, PCP - General 01/18/16 documented as of this encounter
--- OUTSIDE RECORDS SUMMARY | 2024-06-17 14:49 | XMS_ITS | Encounter Summary ---
Author Organization [facility] Address [facility] [place] [address] Care Team Providers Care Proteomics Scientist Name Role Phone Carey Hall MD Primary Care Provider [phone] Encounter Details Date Type Department Care Team (Late st Contact Info) Description 08/08/2010 11:00 AM EST Office Visit Podiatry [address] [place] [address] Ritesh Mackey Jr., [facility] [address] [facility] [address] Social History Tobacco Use Types Packs/Day Years Used Date Smoking Tobacco: Never Assessed Sex and Gender Information Value Date Recorded Sex Assigned at Not on file Gender Identity Not on file Sexual Orientation Not on file documented as of this encounter Plan of Treatment Not on file documented as of this encounter Visit Diagnoses Not on filedocumented in this encounter Care Teams Proteomics Scientist Relationship Specialty Start Date End Date Carey Hall MD [address] [place] [address] PCP - General 06/25/10 10/28/15 documented as of this encounter
--- OUTSIDE RECORDS SUMMARY | 2024-06-17 14:49 | XMS_ITS | Encounter Summary ---
Author Organization [facility] Address [facility] [place] [address] Care Team Providers Care Care Transitions Manager Name Role Phone Carey Hall MD Primary Care Provider [phone] Reason for Visit * Reason Comments Diabetic Foot Care Other left foot 2nd toe in jury Encounter Details Date Type Department Care Team (Late st Contact Info) Description 02/20/2015 8:30 AM EDT Office Visit Podiatry at [address] [place] [address] Ritesh Mackey Jr., [address] [place] [place] [address] Dermatophytosis of nail; Foot pain, unspecified laterality; [...] on palpation. Nails display clinical signs of kxkicei-hksqivwcoi-hekoro in appearance, thickened greater than 2mm, Brittle [...] uncontrolled documented in this encounter Care Teams Care Transitions Manager Relationship Specialty Start Date End Date Carey Hall MD [address] [place] [address] PCP - General 06/25/10 10/28/15 documented as of this encounter
--- OUTSIDE RECORDS SUMMARY | 2024-06-17 14:49 | XMS_ITS | Referral Summary ---
Author Organization [facility] Address [address] [place] [address] Care Team Providers Care Overnight Houseperson Name Role Phone Unknown, Provider MD Primary Care Provider Unava ilable Encounters Date Type Department Care Team Description 05/30/2024 Lab Requisition [facility] Pathology & Laboratory Medicine - [facility] [address] [place] [address] Outr Resulting Lab, Provider from Last 3 [...] 2.8 - 5.3 pg/mL 05/30/2024 17:34 EDT [facility] Blood VENOUS BLOOD / Unknown 05/30/2024 10:09 EDT 05/30/2024 17:01 EDT us Provider Outr Resulting Lab CHEMISTRY & BLOOD GA S ORDERABLES Final Result [facility] [address] [place] [address] * T3, TOTAL (05/30/2024 10:09 EDT) Pathologist [facility] T3, Total 147 97 - 169 ng/dL 05/30/2024 17:50 EDT [facility] Blood VENOUS BLOOD / Unknown 05/30/2024 10:09 EDT 05/30/2024 17:01 EDT us Provider Outr Resulting Lab CHEMISTRY & BLOOD GA S ORDERABLES Final Result [facility] [address] [place] [address] * HEPATITIS C AB W REFLEX TO HCV RNA BY PCR (12/04/2021 11:00 EDT) Pathologist [facility] Hep C Antibody Negative Negative 12/05/2021 11:10 EDT [facility] Blood VENOUS BLOOD / Unknown 12/04/2021 11:00 EDT 12/04/2021 21:57 EDT us Provider Outr Resulting Lab CHEMISTRY & BLOOD GA S ORDERABLES Final Result [facility] [address] [place] [address] from Last 3 Months or Most Recently Relevant to Health Maintenance Care Teams Overnight Houseperson Relationship Specialty Start Date End Date Unknown, Provider, PCP - General 01/18/16
--- OUTSIDE RECORDS SUMMARY | 2024-06-17 14:49 | XMS_ITS | Encounter Summary ---
Author Organization [facility] Address [facility] [place] [address] Care Team Providers Care Echocardiography Technologist Name Role Phone Carey Hall MD Primary Care Provider [phone] Reason for Visit * Reason Comments Diabetic Foot Care Encounter Details Date Type Department Care Team ([facility] Contact Info) Description 07/09/2012 11:15 AM EST Office Visit Podiatry at [address] [place] [address] Ritesh Mackey Jr., [facility] [address] [facility] [place] [address] Other specified disease of nail; DM w/o [...] uncontrolled documented in this encounter Care Teams Echocardiography Technologist Relationship Specialty Start Date End Date Carey Hall MD [address] [place] [address] PCP - General 06/25/10 10/28/15 documented as of this encounter
--- OUTSIDE RECORDS SUMMARY | 2024-06-17 14:49 | XMS_ITS | Encounter Summary ---
Author Organization [facility] Address [facility] [place] [address] Care Team Providers Care Residential Driver Name Role Phone Felisha Juan APRN Primary Care Provider + [phone] Reason for Visit * Reason Comments Diabetes * Consultation (Routine) - Closed Specialty Diagnoses / Procedures Referred By Contdelmi t Referred To Contact Endocrinology Diagnoses Diabetes Mellitus Type 1, uncontrolled w/ Ophthalmic comps Felisha Juan APRN [address] [place] [address] [facility] Endocrinology [address] [place] [phone] Referral ID Status Reason Start Date Expiration Date V isits Requested Visits Authorized [id number] Closed Consult, Test & [facility] 10/29/2015 10/28/2016 1 1 Encounter Details Date Type Department Care Team (Late st Contact Info) Description 12/11/2015 9:30 AM EDT Office [place] [address] Olegario Wright DO [facility] [place] [address] Rosie Tao MD [facility] [place] [address] Type 1 diabetes mellitus with [...] day to have your insulin doses adjusted. [facility] office documented in this encounter Progress Notes * Olegario Wright DO - 12/18/2015 3:49 PM EDT I have seen the patient and reviewed Dr Tao's history and I agree with the details as written. The assessment and plan were formulated in discussion with me and I agree with them as documented. Olegario Wright DO, MS Staff Press Operator * Rosie Tao MD - 12/10/2015 1:32 PM EDT Diabetes Outpatient Consult Date of Consultation: 12/10/2015 Consult Requested by: Dr. Juan Reason for Consultation: Kailey Hernandez is a 40 y.o. years old female with PMH significant for DM .We are being consulted to assist with diabetes management and to provide a review of group home diabetes care. Diabetes History: Kailey Hernandez has had diabetes Type 1 since age 7 years. When initially diagnosed, she was extremely fatigued, had polyuria, weight loss, and polydypsia. She was followed by an remote encoding center manager- Dr Hernandez in [place], [place]. She is here for establishment of care since she has moved to [facility]. She currently used lantus and a [...] 4 weeks, RTC in 4 months terminal manager diabetes care: Medications - Outpatient treatment regimen recommendations pending based on the hospital course. Monitoring - continue BG tid ac & hs Diet - low fat/low carb diet Exercise - weight-bearing exercise 30 min/day, as tolerated Thank you for the consult D/w Dr Adriana Tao MD Endocrine Fellow Pager- [phone] Insulin Discharge Instructions . Instructions for Lantus [...] day to have your insulin doses adjusted. [facility] Endocrine clinic office documented in this encounter Plan of Treatment Not on file documented as of this encounter Results * Microalbumin, urine, random (08/22/2016 9:06 AM EST) Pathologist [facility] Albumin / Creatinin Ratio, Urine 17 0 - 29 mcg/mg Cr [facility] Comment: Reference Ranges: <30 [...] 2, 357? 362 Albumin, Urine 12.4 mg/L [facility] Creatinine, Urine 75 mg/dL [facility] Urine specimen (specimen) 08/22/2016 9:06 AM EST 08/22/2016 9:20 AM EST Narrative Resulting Agency Comment Spec In Lab Olegario Wright DO URINE ORDERABLES [facility] [place] [address] * Lipid panel (fasting) (08/22/2016 8:51 AM EST) Cholesterol, Total 129 <=239 mg/dL [facility] Triglyceride 56 <=199 mg/dL [facility] HDL Cholesterol 55 >=40 mg/dL [facility] LDL Cholesterol 63 <=190 mg/dL [facility] Cholesterol/HDL Ratio 2.3 ratio [facility] Lipid Interpretation See Note [facility] Comment: Lipid management should be guided by a patient? s ASCVD risk, goals and preferences. ACC/AHA Guidelines recommend high intensity statin if clinical ASCVD or LDL greater than or equal to 190 mg/dL. http://circ.ahajournals.org/content/early/.cir.0069036069.63463.7a Adults aged 40-75 with LDL 70-189 mg/dL should have their 10 year ASCVD risk estimated with the ACC/AHA ASCVD risk fountain brush assembler http://tools.acc.org/BGBAE-Luog-Cckqbeaxi/ Statin should be discussed if risk greater [...] In Lab Olegario Wright DO CHEMISTRY ORDERABLES [facility] [place] [address] * (ABNORMAL) Hemoglobin A1c (08/22/2016 8:51 AM EST) Hemoglobin A1c 7.4(H) 4.3 - 5.6 % [facility] Comment: Reference Range: 4.3 [...] Mellitus, Diabetes Care 2013; 36: Suppl. 1, P07-65 Estimated Average Glucose 166 mg/dL [facility] Comment: eAG equivalents for HbA1c percentages: HbA1c(%) ?eAG(mg/dL) 6.0 ?126 6.5 ?140 7.0 ?154 7.5 ?169 8.0 ?183 8.5 ?197 9.0 ?212 9.5 ?226 10.0 ? 240 Limitations: The eAG calculation has not been validated on women, individuals below 18 years old and above 70 years old, and individuals with hemoglobinopathies. Additional resources are available on the ADA website: http://Notorious.[employer]/DHMCadacalc Tj JESSICA, Mal J, Bk R, et al. ??Translating the A1C assay into estimated average glucose values. ??Diabetes Care 2008:31(8):2626-9614. Blood specimen (specimen) 08/22/2016 8:51 AM EST 08/22/2016 8:58 AM EST Narrative Resulting Agency Comment Spec In Lab Olegario Wright DO CHEMISTRY ORDERABLES Performing Organization Address City/State/[facility] Co de Phone Number [facility] [place] [address] documented in this encounter Visit Diagnoses Diagnosis Type 1 diabetes mellitus with diabetic retinopathy, macular edema presence unspecified, unspecified retinopathy severity documented in this encounter Care Teams Residential Driver Relationship Specialty Start Date End Date Felisha Juan APRN [address] [place] [address] PCP - General Family Medicine 10/29/15 01/29/22 documented as of this encounter
--- OUTSIDE RECORDS SUMMARY | 2024-06-17 14:49 | XMS_ITS | Encounter Summary ---
Author Organization [facility] Address [facility] [place] [address] Care Team Providers Care Race Starter Name Role Phone Carey Hall MD Primary Care Provider [phone] Reason for Visit * Reason Comments Diabetic Foot Care Encounter Details Date Type Department Care Team ([facility] Contact Info) Description 08/31/2014 10:00 AM EST Office Visit Podiatry at [address] [place] [address] Ritesh Mackey Jr., [address] [place] [address] Dermatophytosis of nail; Pain in extremity, unspecified [...] on palpation. Nails display clinical signs of vpdnqfy-pcfupflhgs-pfjchy in appearance, thickened greater than 2mm, Brittle [...] uncontrolled documented in this encounter Care Teams Race Starter Relationship Specialty Start Date End Date Carey Hall MD [address] [place] [address] PCP - General 06/25/10 10/28/15 documented as of this encounter
--- OUTSIDE RECORDS SUMMARY | 2024-06-17 14:49 | XMS_ITS | Encounter Summary ---
Author Organization [facility] Address [facility] [place] [address] Care Team Providers Care Robot Operator Name Role Phone Felisha Juan APRN Primary Care Provider + [phone] Encounter Details Date Type Department Care Team ([facility] st Contact Info) Description 03/03/2016 Telephone [place] [phone] Akanksha Beltrán LPN Social History Tobacco Use [...] endo nurse line from Chary Boyd at [facility]. Insurance will not cover humalog will cover Novolog. Okay to switch with dosing is needed. ext [phone] documented in this encounter Plan of Treatment Not on file documented as of this encounter Visit Diagnoses Not on filedocumented in this encounter Care Teams Robot Operator Relationship Specialty Start Date End Date Felisha Juan, DEMETRIS [address] [place] [address] PCP - General Family Medicine 10/29/15 01/29/22 documented as of this encounter
--- OUTSIDE RECORDS SUMMARY | 2024-06-17 14:49 | XMS_ITS | Encounter Summary ---
Author Organization [facility] Address [address] [place] [address] Care Team Providers Care Core Analyst Name Role Phone Unknown, Provider Primary Care Provider Unava ilable Encounter Details Date Type Department Care Team (Late st Contact Info) Description 05/30/2024 Lab Requisition [facility] Pathology & Laboratory Medicine - [facility] [address], [place] [id number] Outr Resulting Lab, Provider Social History Tobacco [...] EDT T3, TOTAL Routine 05/30/2024 10:09 EDT documented in this encounter Results * T3 FREE (05/30/2024 10:09 EDT) T3, Free 4.0 2.8 - 5.3 pg/mL 05/30/2024 17:34 EDT [facility] Blood VENOUS BLOOD / Unknown 05/30/2024 10:09 EDT 05/30/2024 17:01 EDT us Provider Outr Resulting Lab CHEMISTRY & BLOOD GA S ORDERABLES Final Result [facility] [address] [place] [address] * T3, TOTAL (05/30/2024 10:09 EDT) T3, Total 147 97 - 169 ng/dL 05/30/2024 17:50 EDT [facility] Blood VENOUS BLOOD / Unknown 05/30/2024 10:09 EDT 05/30/2024 17:01 EDT us Provider Outr Resulting Lab CHEMISTRY & BLOOD GA S ORDERABLES Final Result [facility] [address] [place] [address] documented in this encounter Visit Diagnoses Not on filedocumented in this encounter Care Teams Core Analyst Relationship Specialty Start Date End Date Unknown, Provider, PCP - General 01/18/16 documented as of this encounter
--- OUTSIDE RECORDS SUMMARY | 2024-06-17 14:49 | XMS_ITS | Encounter Summary ---
Author Organization [facility] Address [facility] [place] [address] Care Team Providers Care It Help Desk Associate Name Role Phone Carey Hall MD Primary Care Provider [phone] Reason for Visit * Reason Comments Diabetic Foot Care Encounter Details Date Type Department Care Team ([facility] st Contact Info) Description 02/23/2012 4:00 PM EDT Office Visit Podiatry at [address] [place] [address] Ritesh Mackey Jr., DPM [address] [place] [address] [place] [address] Other specified disease of nail (Primary Dx) [...] encounter Miscellaneous Notes * Miscellaneous - Carrington, Pumping Station Engineer - 03/05/2012 10:46 AM EDT documented in this encounter Plan of Treatment Not on file documented as of this encounter Visit Diagnoses Diagnosis Other specified disease of nail- Primary documented in this encounter Care Teams It Help Desk Associate Relationship Specialty Start Date End Date Carey Hall MD [address] [address] PCP - General 06/25/10 10/28/15 documented as of this encounter
[2024-06-17] MEDS: HYDROmorphone 2 MG/ML SYR 1 MG IVP (15:12)
[2024-06-17 15:13] LABS: Abs Immature Grans 0.01 10^3/uL (0.0-0.06); Absolute Basophil Count 0.03 10^3/uL (0.0-0.2); Absolute Eosinophil Count 0.08 10^3/uL (0.0-0.7); Absolute Lymphocyte Count 1.88 10^3/uL (1.2-3.4); Absolute Monocyte Count 0.55 10^3/uL (0.1-0.8); Absolute Neutrophil Count 2.13 10^3/uL (1.2-6.7); Basophils % 0.6 %; Eosinophils % 1.7 %; HCT 38.4 % (36.0-46.0); HGB 12.8 g/dL (11.2-15.7); Immature Grans % 0.2 %; Lymphocytes % 40.2 %; MCH 31.2 pg (27.0-33.0); MCHC 33.3 % (32.0-36.0); MCV 94 fL (80-95); MPV 9.2 fL (8.0-11.0); Monocytes % 11.8 %; Neutrophils % 45.5 %; Platelet Count 171 10^3/uL (130-400); RDW 12.3 % (11.7-14.6); RDW-SD 42.5 fL; WBC 4.68 10^3/uL (4.4-10.8)
[2024-06-17 15:37] LABS: ALT 53 U/L (14-59); AST 43 U/L (15-37); Albumin 3.8 g/dL (3.4-5.0); Alkaline Phosphatase 118 U/L (46-116); Anion Gap 4.2 mmol/L (3-11); BUN 15 mg/dL (7-18); Bilirubin, Total 0.42 mg/dL (0.2-1.0); CO2 32.8 mmol/L (21.0-32.0); Calcium 9.4 mg/dL (8.5-10.1); Chloride 104 mmol/L (98-107); Estimated GFR 68.63 (mL/min/1.73m2); Glucose 200 mg/dL (74-106); Potassium 4.8 mmol/L (3.5-5.1); Sodium 141 mmol/L (136-145); Total Protein 7.8 g/dL (6.4-8.2)
[2024-06-17] MEDS: Gadoterate meglumine 20 ML SYRINGE 14 ML IVP (15:38)
--- NOTE | 2024-06-17 15:38 | ED.GENADUL_ITS ---
Discharge Plan Discharge Details Chief Complaint: Nk/Back Pain Primary Care Provider: Karie Lindsey ED Provider: Tanmay Doty Home Meds and New Rx's Prescriptions: No Action Jardiance 10 mg tablet 10 mg PO DAILY MDD 10 mg 90 Days Qty: 90 4RF Rx Instructions: Take 10 mg tablet once daily in the morning as directed. (DME) Novopen Echo Insulin Pen See Rx Instructions .Route Qty: 1 0RF Rx Instructions: Use as directed, training in person. insulin aspart U-100 [Novolog PenFill U-100 Insulin] 100 unit/mL cartridge 5 unit subcut TID MDD 15 90 Days Qty: 15 12RF Rx Instructions: Inject 5 units or amount directed by sliding scale subcutaneously with meals. albuterol sulfate 90 mcg/actuation HFA aerosol inhaler 2 puff inhalation Q6H PRN (Reason: shortness of breath or wheezing) Qty: 8.5 1RF pantoprazole [Protonix] 40 mg tablet,delayed release (DR/EC) 40 mg PO DAILY Qty: 30 12RF (DME) Ketostix Strip See Rx Instructions .Route Rx Instructions: As directed aspirin [Children's Aspirin] 81 mg tablet,chewable 81 mg PO DAILY metoprolol succinate 25 mg tablet extended release 24 hr 12.5 mg PO DAILY Qty: 90 0RF multivitamin with folic acid [Tab-A-Aaron] 400 mcg tablet 1 tab PO DAILY Patient Comments: TAKE ONE TABLET BY MOUTH EVERY DAY Fiasp FlexTouch U-100 Insulin 100 unit/mL (3 mL) insulin pen 1 sliding scale dose SUBCUT AC Patient Comments: INJECT BASED ON CARBS WITH MEALS AND SNACKS RATIO 1:10G AND COREECT FOR BG GREATER THAN 150 BASED ON ISF 1:25 MAX DAILY DOSE 50 UNITS atorvastatin 80 mg tablet 80 mg PO DAILY Patient Comments: Take 1 tablet by mouth every evening insulin glargine [Basaglar KwikPen U-100 Insulin] 100 unit/mL (3 mL) insulin pen 20 unit SUBCUT DAILY Patient Comments: INJECT 22 UNITS UNDER THE SKIN EVERY MORNING magnesium oxide 400 mg (241.3 mg magnesium) tablet 400 mg PO DAILY Qty: 14 0RF HPI General Mode of arrival: ambulatory . Date/Time Provider Initiated Documentation: 06/17/24 14:02 . Limitations to Documentation: no limitations . Information obtained by: patient . HPI Narrative: 49yo female with history of syrinx here with worsening back pain and associated numbness of her left hand. Patient notes she has had ongoing back pain over the past 1 to 2 months. She does not recall any specific injury. She was seen and had an MRI of her thoracic and lumbar spine on 04/29/2024 that revealed a cyst on her spine. She has apparently been referred to [facility] spinal specialist but has not yet had a scheduled appointment. Patient notes that over the past 1 to 2 weeks the pain in her mid back has worsened and is now severe. Her is concerned that she is not walking normal. She also notes over the past week and a half numbness in her left hand. Patient has been taking acetaminophen and ibuprofen which initially helped her pain and is now not providing relief. Related Data Home Medications ?Medication ?Instructions ?Recorded ?Confirmed acetone (urine) test (Ketostix 01/29/22 06/17/24 strips) aspirin 81 mg chewable tablet 81 mg PO DAILY 01/29/22 06/17/24 (Children's Aspirin) atorvastatin 80 mg tablet 80 mg PO DAILY 02/22/22 06/17/24 insulin glargine 100 unit/mL (3 20 unit subcut DAILY 02/22/22 06/17/24 mL) subcutaneous pen (Basaglar KwikPen U-100 Insulin) magnesium oxide 400 mg (241.3 mg 400 mg PO DAILY #14 tabs 04/23/22 06/17/24 magnesium) tablet empagliflozin 10 mg tablet 10 mg PO DAILY 90 days #90 tabs 02/26/24 06/17/24 (Jardiance) insulin aspart 1 sliding scale dose subcut AC 03/18/24 06/17/24 (niacinamide)(U-100) 100 unit/mL(3 mL) subcutaneous pen (Fiasp FlexTouch U-100 Insulin) multivitamin with folic acid 400 1 tab PO DAILY 03/18/24 06/17/24 mcg tablet (Tab-A-Aaron) albuterol sulfate 90 mcg/actuation 2 puff inhalation Q6H PRN 03/24/24 06/17/24 aerosol inhaler shortness of breath or wheezing #8.5 grams insulin admin supplies (Novopen #1 ea 03/25/24 06/17/24 Echo subcutaneous) insulin aspart U-100 100 unit/mL 5 unit (0.05 mL) subcut TID 90 03/25/24 06/17/24 subcutaneous cartridge (Novolog days #15 mL PenFill U-100 Insulin aspart) metoprolol succinate 25 mg 12.5 mg (1/2 x 25 mg) PO DAILY #90 04/18/24 06/17/24 tablet,extended release 24 hr tabs pantoprazole 40 mg tablet,delayed 40 mg PO DAILY #30 tabs 05/16/24 06/17/24 release (Protonix) Previous Rx's ?Medication ?Instructions ?Recorded magnesium oxide 400 mg (241.3 mg 400 mg PO DAILY #14 tabs 04/23/22 magnesium) tablet empagliflozin 10 mg tablet 10 mg PO DAILY 90 days #90 tabs 02/26/24 (Jardiance) albuterol sulfate 90 mcg/actuation 2 puff inhalation Q6H PRN 03/24/24 aerosol inhaler shortness of breath or wheezing #8.5 grams insulin admin supplies (Novopen #1 ea 03/25/24 Echo subcutaneous) insulin aspart U-100 100 unit/mL 5 unit (0.05 mL) subcut TID 03/25/24 subcutaneous cartridge (Novolog days #15 mL PenFill U-100 Insulin aspart) metoprolol succinate 25 mg 12.5 mg (1/2 x 25 mg) PO DAILY #90 04/18/24 tablet,extended release 24 hr tabs pantoprazole 40 mg tablet,delayed 40 mg PO DAILY #30 tabs 05/16/24 release (Protonix) Allergies Allergy/AdvReac Type Severity Reaction Status Date / Time No Known Allergies Allergy Verified 06/17/24 13:51 General Stated Complaint: Nk/Back Pain MITCHELL: 3 Review of Systems All systems reviewed & are unremarkable except as noted in HPI and below Constitutional Constitutional: Denies fever(s) Neurologic Neurologic: Reports as per HPI Exam Const General: cooperative HENGA Head: atraumatic Mouth: moist mucous membranes Eyes Conjunctivae: normal conjunctivae Sclera: normal sclerae Resp Auscultation: clear to auscultation bilaterally, no rales, no rhonchi and no wheezes Cardio Rate: regular rate and not tachycardic Rhythm: regular rhythm GI Palpation: soft, not firm, no guarding, no masses, not rigid and nontender Back/Spine/Pelvis Cervical Spine: No cervical spinal tenderness and No step off deformity Thoracic/Lumbar Spine: paraspinal tenderness (Thoracic), thoracic spinal tenderness and No lumbar spinal tenderness Other: Patient notes pain in her back with bilateral straight leg elevations Skin General skin exam: no rashes or lesions noted Neuro General: patient alert, patient awake and tone normal Motor: strength 5/5 throughout Sensory Exam: other (Diminished sensation to light touch left hand all digits) Extrem General: no edema Psych Appearance: grossly normal Mental Status: mental status grossly normal Course Vital Signs Vital signs: Vital Signs Temperature 36.3 C L 06/17/24 13:47 Pulse 75 06/17/24 13:47 Respiratory Rate 18 06/17/24 13:47 Blood Pressure 139/51 L 06/17/24 13:47 Pulse Oximetry 98 06/17/24 13:47 Temperature 36.3 C L 06/17/24 13:47 Temperature Source Temporal Artery Scan 06/17/24 13:47 Pulse 75 06/17/24 13:47 Respiratory Rate 18 06/17/24 13:47 Respiratory Effort Normal, Non-Labored 06/17/24 13:56 Blood Pressure 139/51 L 06/17/24 13:47 Blood Pressure Position Sitting 06/17/24 13:47 Pulse Oximetry 98 06/17/24 13:47 Oxygen Delivery Method Room Air 06/17/24 13:47 Oxygen Flow Rate 0 06/17/24 13:47 Lab/Test Results Lab/Test Results: Laboratory Tests Range/Units 06/17/24 15:05 WBC (4.4-10.8) 10^3/uL 4.68 RBC (3.93-5.22) 10^6/uL 4.10 Hgb (11.2-15.7) g/dL 12.8 Hct (36.0-46.0) % 38.4 MCV (80-95) fL 94 MCH (27.0-33.0) pg 31.2 MCHC (32.0-36.0) % 33.3 RDW (11.7-14.6) % 12.3 Plt Count (130-400) 10^3/uL 171 MPV (8.0-11.0) fL 9.2 Immature Gran % % 0.2 Neutrophils % % 45.5 Lymphocytes % % 40.2 Monocytes % % 11.8 Eosinophils % % 1.7 Basophils % % 0.6 Nucleated RBC % (0.0-0.3) % 0.0 Absolute Neutrophils (1.2-6.7) 10^3/uL 2.13 Absolute Lymphocytes (1.2-3.4) 10^3/uL 1.88 Absolute Monocytes (0.1-0.8) 10^3/uL 0.55 Absolute Eosinophils (0.0-0.7) 10^3/uL 0.08 Absolute Basophils (0.0-0.2) 10^3/uL 0.03 Sodium (136-145) mmol/L 141 Potassium (3.5-5.1) mmol/L 4.8 Chloride (98-107) mmol/L 104 Carbon Dioxide (21.0-32.0) mmol/L 32.8 H Anion Gap (3-11) mmol/L 4.2 BUN (7-18) mg/dL 15 Creatinine (0.55-1.02) mg/dL 1.0 Est GFR (CKD-EPI 2020) (mL/min/1.73m2) 68.63 Glucose (74-106) mg/dL 200 H Calcium (8.5-10.1) mg/dL 9.4 Total Bilirubin (0.2-1.0) mg/dL 0.42 AST (15-37) U/L 43 H ALT (14-59) U/L 53 Alkaline Phosphatase (46-116) U/L 118 H Total Protein (6.4-8.2) g/dL 7.8 Albumin (3.4-5.0) g/dL 3.8 Medical Decision Making 3?? 49-year-old female with history of syrinx of the thoracic spine diagnosed on MRI 6 weeks ago, here with worsening mid back pain as well as new numbness of her left hand over the past 1.5-week. Patient does have a diminished sensation to light touch left hand all digits. I reviewed past medical record, MRI from 04/29/2024, as interpreted by radiology: Thoracic spinal cord syrinx measuring 7.4 cm in length extending from the T2 through T6 levels. No enhancement is seen following contrast administration. I am concerned about the potential for central pain syndrome in addition to neurologic deterioration. Given progression of symptoms, plan to repeat MRI today. Plan for [facility] spinal specialist consultation. I have contacted the [facility] transfer center to initiate consult request. Dilaudid 1 mg IV given for pain. Lab Data Lab results reviewed: Yes I reviewed the patient's lab results. Labs: Laboratory Tests Range/Units 06/17/24 15:05 WBC (4.4-10.8) 10^3/uL 4.68 RBC (3.93-5.22) 10^6/uL 4.10 Hgb (11.2-15.7) g/dL 12.8 Hct (36.0-46.0) % 38.4 MCV (80-95) fL 94 MCH (27.0-33.0) pg 31.2 MCHC (32.0-36.0) % 33.3 RDW (11.7-14.6) % 12.3 Plt Count (130-400) 10^3/uL 171 MPV (8.0-11.0) fL 9.2 Immature Gran % % 0.2 Neutrophils % % 45.5 Lymphocytes % % 40.2 Monocytes % % 11.8 Eosinophils % % 1.7 Basophils % % 0.6 Nucleated RBC % (0.0-0.3) % 0.0 Absolute Neutrophils (1.2-6.7) 10^3/uL 2.13 Absolute Lymphocytes (1.2-3.4) 10^3/uL 1.88 Absolute Monocytes (0.1-0.8) 10^3/uL 0.55 Absolute Eosinophils (0.0-0.7) 10^3/uL 0.08 Absolute Basophils (0.0-0.2) 10^3/uL 0.03 Sodium (136-145) mmol/L 141 Potassium (3.5-5.1) mmol/L 4.8 Chloride (98-107) mmol/L 104 Carbon Dioxide (21.0-32.0) mmol/L 32.8 H Anion Gap (3-11) mmol/L 4.2 BUN (7-18) mg/dL 15 Creatinine (0.55-1.02) mg/dL 1.0 Est GFR (CKD-EPI 2020) (mL/min/1.73m2) 68.63 Glucose (74-106) mg/dL 200 H Calcium (8.5-10.1) mg/dL 9.4 Total Bilirubin (0.2-1.0) mg/dL 0.42 AST (15-37) U/L 43 H ALT (14-59) U/L 53 Alkaline Phosphatase (46-116) U/L 118 H Total Protein (6.4-8.2) g/dL 7.8 Albumin (3.4-5.0) g/dL 3.8 Quality:SDOH Health Related Social Needs: No Data to Display PFSH All Active Problems UTI (urinary tract infection) (Acute) Migraine (Chronic) Poorly controlled type 1 diabetes mellitus with autonomic neuropathy (Acute) N&V (nausea and vomiting) (Acute) Chronic GERD (Acute) Elevated LFTs (Acute) PAD (peripheral artery disease) (Acute) ADIEL - done at [facility] surgical 01/28/24 Dysphagia (Acute) DKA (diabetic ketoacidosis) (Acute) Elevated TSH (Acute) Hx of tonsillectomy (Chronic) Atherosclerosis of coronary artery without angina pectoris (Acute) Retinopathy due to secondary diabetes mellitus (Acute) Gastroesophageal reflux disease without esophagitis (Acute) Mild intermittent asthma (Acute) Hyperlipemia (Acute) H/O heart artery stent (Chronic) 2 Stents at [facility] 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 of right ear (Acute) Nail dystrophy (Acute) Type 1 diabetes mellitus with diabetic polyneuropathy (Acute) Retinopathy (Acute) Type 1 diabetes mellitus (Acute) Asthma (Chronic) GERD (gastroesophageal reflux disease) (Chronic) CAD (coronary artery disease), ramona coronary artery (Acute) Neurogenic bladder (Acute) IDDM (insulin dependent diabetes mellitus) (Chronic) Nonsustained paroxysmal ventricular tachycardia (Acute) Vitamin D deficiency (Acute) Neuropathy (Acute) Chronic kidney disease, stage I (Acute) Hearing loss (Acute) Blind right eye (Acute) Cellulitis of foot (Acute) Medical History Hypomagnesemia Cancer of cervix Hyperkalemia Visual loss Acute pain in female pelvis Elevated troponin History of deep vein thrombophlebitis of lower extremity Surgical History Hx of LASIK Hx of section At [facility] 2006 History of partial hysterectomy Family History Father Asthma Diabetes Heart disease Hypertension Maternal Aunt Breast cancer Mother Hypertension Heart disease Maternal Aunt Breast cancer COPD (chronic obstructive pulmonary disease) Maternal Aunt Diabetes Social History Smoking/Tobacco Use Status: Never Second Hand Exposure: Yes Smoking risk assessment performed?: Yes Alcohol Intake: never Drug use: Never Substance use type: does not use Adopted: No Caregiver/Support person: Yes (significant other) Foster care: No Household members: significant other and children Housing: apartment Number of Children: 1 number of grandchildren: 0 Communication Needs: Hard of Hearing and Blind Education Level: high school Do you need help understanding health information?: Often current occupation: Disabled Pets and animals: Yes (1 Cat, 2 Guinea Pigs) Pets and animals: cat(s) and guinea pig(s) Do you think of yourself as: straight/heterosexual Current gender identity: female What is your relationship status?: living with partner How often do you talk on the phone with friends or family?: three or more times per week How often do you get together with friends or relatives?: three or more times p er week How often do you attend religion or restorationism services?: decline to answer Do you belong to any clubs or organized social groups?: no Panel score (0-1 are the most socially isolated patients): 2 What type of physical activity do you participate in: walking Duration: 15-30 minutes/day Frequency: daily Trina/Alevism: None Seatbelt use: always Drive intox or ride w/intox new car driver: No Do you feel safe at home: Yes Do you feel safe in your relationship?: Yes Female Reproductive History Menstrual Menopause type: surgical History History 14 Para Hx # Term Pregnancies Multiple births Hx # Pregnancies 1 Ectopic pregnancies AB induced Hx Number of Living Children AB spontaneous
--- NOTE | 2024-06-18 01:50 | ED.FU.B_ITS ---
Date of service: 06/18/24 Time of Service: 01:50 Follow Up Plan: [facility] [place] who consulted on patient while she was in the ED yesterday called [facility] requesting to speak to the current [facility] ED provider. I advised that I had no information on this patient as she had been discharged prior to the start of my shift and I was not involved in her care, but that I was happy to provide any information that was available in the medical record or otherwise assist if possible; she states that it is felt that patient would benefit from an MRI brain with/without contrast on a non-emergent basis and requested that we call the patient in the morning to have an MRI performed later today. As we do not have MRI here over the weekend this is not possible; I asked if the patient should be instructed to present to the [facility] [place] today for MRI and was advised that an MRI on Thursday would be sufficient. Unfortunately I also cannot guarantee when an outpatient MRI would be able to be scheduled here at [facility], nor can I order outpatient imaging on a patient not currently under my care in the emergency department. I relayed this information and again asked if this imaging needed to be done on an emergent basis (in which case patient should be instructed to present to an ED with MRI capability, or to return to the [facility] ED and be transferred to an ED with MRI capability), and was told this was not necessary. I then asked what specific instructions should be given to the patient in regards to followup appointments/imaging/time frame, and ultimately I was advised to have the patient call [facility] [place] morning to schedule her neurosurgery appointment as well as MRI imaging. As a courtesy, I will attempt to expedite the patient's outpatient followup at [facility] by reaching out to her this morning with this new recommendation. I reviewed in the EMR discharge instructions that had been given to the patient yesterday and they state she should call [facility] [place] 9am Thursday morning to schedule a neurosurgery appointment, phone number written on those instructions. Patient was called at [phone], declined to speak on the phone and requested that we speak to her boyfriend instead of herself, passing the phone to him. He was instructed to call [facility] [place] planned on 0900 and to schedule an MRI w ith them in addition to the appointment that was previously advised, and to return to the emergency department immediately for any worsening symptoms. He stated that he was already planning on being the one to call and schedule the appointment for Ms. Hernandez and verbalized understanding of the need to schedule an MRI at that time as well, and stated that he would pass this information on to Ms. Hernandez.
== END 2024-06-17 20:23 | disposition home or self-care (01) ==
PROVIDERS: Student in an Organized Health Care Education/Training Program; Emergency Provider Emergency Medicine; PCP Nurse Practitioner
DX: M54.50 Low back pain, unspecified (principal); R20.0 Anesthesia of skin; G95.0 Syringomyelia and syringobulbia; I25.10 Atherosclerotic heart disease of native coronary artery without angina pectoris; E10.22 Type 1 diabetes mellitus with diabetic chronic kidney disease; N18.1 Chronic kidney disease, stage 1; E10.319 Type 1 diabetes mellitus with unspecified diabetic retinopathy without macular edema; E10.42 Type 1 diabetes mellitus with diabetic polyneuropathy; Z95.5 Presence of coronary angioplasty implant and graft; Z79.4 Long term (current) use of insulin; Z79.84 Long term (current) use of oral hypoglycemic drugs; Z79.82 Long term (current) use of aspirin; Z86.718 Personal history of other venous thrombosis and embolism
CPT/HCPCS: 36415; 80053; 96374; 99285; 72157; 85025; 99284; J1171

== ENCOUNTER 2024-06-19 12:44 | Observation (INO) | payer MEDICARE, MEDICAID, SELFPAY ==
[2024-06-19] VITALS (11 sets, daily range): BP systolic 107–141; BP diastolic 38–62; PULSE 70–90; RESP 14–20; TEMP 36–36.6; O2SAT 99–100
--- NOTE | 2024-06-19 12:45 | RT.EKG_ITS ---
APPROVED REPORT Exam: Resting ECG Reason for Exam: arm numbness Patient Location: E HR:81 bpm ECG Measurements Heart Rate 81 AXIS AR 126 P 55 QRSd 104 QRS -15 QT 364 T 45 QTc 422 Conclusion Sinus rhythm...normal P axis, V-rate 60- 99 Low voltage, precordial leads...precordial leads <1.0mV
--- NOTE | 2024-06-19 12:57 | DI.CT_ITS ---
Exam(s) CT BRAIN NECK CTA EXAM: CT BRAIN NECK CTA CLINICAL HISTORY: left sided arm numbness. TECHNIQUE: Imaging Protocol: Axial CT angiography was performed with multi-slice acquisition and mu lti-planar and MIP reconstructions. CONTRAST MATERIAL: Intravenous: Omnipaque 350 Contrast volume:85 ml COMPARISON: CT CT BRAIN NECK CTA from 05/27/2024 FINDINGS: CT Head W/O and W contrast: Ventricles and Extra axial spaces: Normal in size and morphology for the patient's age. Hemorrhage: None. Cerebral parenchyma: No evidence of acute infarct or mass. Midline shift: None. Brainstem/Cerebellum: No acute findings.. Calvarium: Normal. Visualized Paranasal sinuses/Mastoids: Clear. Soft Tissues: Unremarkable. Enhancement: Normal. CTA Brain W: Internal Carotid Arteries: Calcification causing mild stenosis. Middle Cerebral Arteries: Right: No aneurysm, occlusion or significant stenosis. Left: No aneurysm, occlusion or significant stenosis. 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 Left: No aneurysm, occlusion or significant stenosis. Left anterior cerebral artery supplies the rig ht anterior cerebral artery through the anterior communicating artery. Posterior cerebral Arteries: Right: No aneurysm, occlusion or significant stenosis. Left: No aneurysm, occlusion or significant stenosis. Vertebral Arteries: Right: No aneurysm, occlusion or significant stenosis. Left: No aneurysm, occlusion or significant stenosis. Basilar Artery: No aneurysm, occlusion or significant stenosis. CTA Neck W: Common Carotid: No significant plaque Right: No dissection, occlusion or significant stenosis. Left: No dissection, occlusion or significant stenosis. External Carotid: No visible plaque Right: No dissection, occlusion or significant stenosis. Left: No dissection, occlusion or significant stenosis. Internal Carotid: No significant plaque Right: No dissection, occlusion or significant stenosis. Left: No dissection, occlusion or significant stenosis. Vertebral Artery: No visible plaque Right: No dissection, occlusion or significant stenosis. Left: No dissection, occlusion or significant stenosis. Lung Apices: No acute findings. Bones: No acute abnormality. Congenital fusion between C4 and C5. Mild degenerative changes at C5- 6. Soft Tissues: Normal. IMPRESSION: 1. CTA brain: Calcification within the petrous portion of the internal carotid arteries bilaterally c ausing mild stenosis. Otherwise normal CTA examination of the [place]. 2. Head CT: Unremarkable CT Head. 3. CTA neck: Normal CTA examination of the neck. No visible plaque. RADIATION DOSE DELIVERED: Total DLP DATA REPOSITORY: All CT scans at this facility are submitted to the National Radiology Data Registry (NRDR) Dose Index Registry (DIR) with the [employer] (ACR). RADIATION OPTIMIZATION: All CT scans at this facility use at least one of these dose optimization te chniques: automated exposure control; mA and/or kV adjustment per patient size (includes targeted exa ms where dose is matched to clinical indication); or iterative reconstruction.
--- NOTE | 2024-06-19 12:58 | W.ED.GENAD ---
Discharge Plan Disposition Patient Disposition: Admit to [facility] Condition: Stable Discharge Details Chief Complaint: GenMedical Clinical Impression: Arm numbness left, Brain TIA Primary Care Provider: Karie Lindsey ED Provider: Cam Wilcox Home Meds and New Rx's Prescriptions: No Action Jardiance 10 mg tablet 10 mg PO DAILY MDD 10 mg 90 Days Qty: 90 4RF Rx Instructions: Take 10 mg tablet once daily in the morning as directed. (DME) Novopen Echo Insulin Pen See Rx Instructions .Route Qty: 1 0RF Rx Instructions: Use as directed, training in person. insulin aspart U-100 [Novolog PenFill U-100 Insulin] 100 unit/mL cartridge 5 unit subcut TID MDD 15 90 Days Qty: 15 12RF Rx Instructions: Inject 5 units or amount directed by sliding scale subcutaneously with meals. albuterol sulfate 90 mcg/actuation HFA aerosol inhaler 2 puff inhalation Q6H PRN (Reason: shortness of breath or wheezing) Qty: 8.5 1RF pantoprazole [Protonix] 40 mg tablet,delayed release (DR/EC) 40 mg PO DAILY Qty: 30 12RF (DME) Ketostix Strip See Rx Instructions .Route Rx Instructions: As directed aspirin [Children's Aspirin] 81 mg tablet,chewable 81 mg PO DAILY metoprolol succinate 25 mg tablet extended release 24 hr 12.5 mg PO DAILY Qty: 90 0RF multivitamin with folic acid [Tab-A-Aaron] 400 mcg tablet 1 tab PO DAILY Patient Comments: TAKE ONE TABLET BY MOUTH EVERY DAY Fiasp FlexTouch U-100 Insulin 100 unit/mL (3 mL) insulin pen 1 sliding scale dose SUBCUT AC Patient Comments: INJECT BASED ON CARBS WITH MEALS AND SNACKS RATIO 1:10G AND COREECT FOR BG GREATER THAN 150 BASED ON ISF 1:25 MAX DAILY DOSE 50 UNITS atorvastatin 80 mg tablet 80 mg PO DAILY Patient Comments: Take 1 tablet by mouth every evening insulin glargine [Basaglar KwikPen U-100 Insulin] 100 unit/mL (3 mL) insulin pen 20 unit SUBCUT DAILY Patient Comments: INJECT 22 UNITS UNDER THE SKIN EVERY MORNING magnesium oxide 400 mg (241.3 mg magnesium) tablet 400 mg PO DAILY Qty: 14 0RF oxycodone-acetaminophen [Percocet] 5-325 mg tablet 1 tab PO Q6H PRNQty: 10 0RF HPI General Mode of arrival: EMS. Date/Time Provider Initiated Documentation: 06/19/24 12:44. Limitations to Documentation: no limitations. Information obtained by: patient. History of Present Illness 49 year old F presents to the emergency department with the chief complaint of left arm numbness and weakness, described as moderate, Patient started experiencing this week(s) (2) and it has been constant. No relieving factors improve symptom(s), No exacerbating factors reported . Patient notes denies fever/chills. Patient did receive the following treatments prior to arrival, none Related Data Home Medications ?Medication ?Instructions ?Recorded ?Confirmed acetone (urine) test (Ketostix 01/29/22 06/17/24 strips) aspirin 81 mg chewable tablet 81 mg PO DAILY 01/29/22 06/19/24 (Children's Aspirin) atorvastatin 80 mg tablet 80 mg PO DAILY 02/22/22 06/19/24 insulin glargine 100 unit/mL (3 20 unit subcut DAILY 02/22/22 06/19/24 mL) subcutaneous pen (Basaglar KwikPen U-100 Insulin) magnesium oxide 400 mg (241.3 mg 400 mg PO DAILY #14 tabs 04/23/22 06/19/24 magnesium) tablet empagliflozin 10 mg tablet 10 mg PO DAILY 90 days #90 tabs 02/26/24 06/19/24 (Jardiance) insulin aspart 1 sliding scale dose subcut AC 03/18/24 06/19/24 (niacinamide)(U-100) 100 unit/mL(3 mL) subcutaneous pen (Fiasp FlexTouch U-100 Insulin) multivitamin with folic acid 400 1 tab PO DAILY 03/18/24 06/19/24 mcg tablet (Tab-A-Aaron) albuterol sulfate 90 mcg/actuation 2 puff inhalation Q6H PRN 03/24/24 06/19/24 aerosol inhaler shortness of breath or wheezing #8.5 grams insulin admin supplies (Novopen #1 ea 03/25/24 06/17/24 Echo subcutaneous) insulin aspart U-100 100 unit/mL 5 unit (0.05 mL) subcut TID 90 03/25/24 06/19/24 subcutaneous cartridge (Novolog days #15 mL PenFill U-100 Insulin aspart) metoprolol succinate 25 mg 12.5 mg (1/2 x 25 mg) PO DAILY #90 04/18/24 06/19/24 tablet,extended release 24 hr tabs pantoprazole 40 mg tablet,delayed 40 mg PO DAILY #30 tabs 05/16/24 06/19/24 release (Protonix) oxycodone-acetaminophen 5 mg-325 1 tab PO Q6H PRN #10 tabs 06/17/24 06/19/24 mg tablet (Percocet) Previous Rx's ?Medication ?Instructions ?Recorded magnesium oxide 400 mg (241.3 mg 400 mg PO DAILY #14 tabs 04/23/22 magnesium) tablet empagliflozin 10 mg tablet 10 mg PO DAILY 90 days #90 tabs 02/26/24 (Jardiance) albuterol sulfate 90 mcg/actuation 2 puff inhalation Q6H PRN 03/24/24 aerosol inhaler shortness of breath or wheezing #8.5 grams insulin admin supplies (Novopen #1 ea 03/25/24 Echo subcutaneous) insulin aspart U-100 100 unit/mL 5 unit (0.05 mL) subcut TID 90 03/25/24 subcutaneous cartridge (Novolog days #15 mL PenFill U-100 Insulin aspart) metoprolol succinate 25 mg 12.5 mg (1/2 x 25 mg) PO DAILY #90 04/18/24 tablet,extended release 24 hr tabs pantoprazole 40 mg tablet,delayed 40 mg PO DAILY #30 tabs 05/16/24 release (Protonix) oxycodone-acetaminophen 5 mg-325 1 tab PO Q6H PRN #10 tabs 06/17/24 mg tablet (Percocet) Allergies Allergy/AdvReac Type Severity Reaction Status Date / Time No Known Allergies Allergy Verified 06/19/24 12:50 General Stated Complaint: GenMedical MITCHELL: 3 Review of Systems All systems reviewed & are unremarkable except as noted in HPI and below Constitutional Constitutional: Denies chills, Denies fever(s) and Denies weakness Cardiovascular Cardiovascular: Denies chest pain and Denies dyspnea Respiratory Respiratory: Denies cough and Denies dyspnea Gastrointestinal Gastrointestinal: Denies abdominal pain, Denies nausea and Denies vomiting Musculoskeletal Musculoskeletal: Denies joint swelling and Reports numbness Neurologic Neurologic: Reports numbness and Denies weakness Exam Const General: no acute distress Orientation: alert [facility] Head: normal to inspection Ears: external ears normal General nose exam: external nose normal Mouth: moist mucous membranes Resp Effort & Inspection: normal respiratory effort and able to speak in complete sentences Cardio Rate: regular rate Skin General skin exam: no rashes or lesions noted Neuro General: patient alert, patient oriented x3 and CN's II-XI intact bilaterally Cognition: normal cognition Extrem General: normal to inspection Course Vital Signs Vital signs: Vital Signs Temperature 36.6 C 06/19/24 12:44 Pulse 80 06/19/24 12:44 Respiratory Rate 16 06/19/24 12:44 Blood Pressure 141/59 H 06/19/24 12:44 Pulse Oximetry 100 06/19/24 12:44 Temperature 36.6 C 06/19/24 12:44 Temperature Source Oral 06/19/24 12:44 Pulse 80 06/19/24 12:44 Respiratory Rate 16 06/19/24 12:44 Blood Pressure 141/59 H 06/19/24 12:44 Pulse Oximetry 100 06/19/24 12:44 Oxygen Delivery Method Room Air 06/19/24 12:44 Oxygen Flow Rate 0 06/19/24 12:44 Medical Decision Making 49-year-old female with a stable thoracic spine syrinx on MRI done on Thursday, diabetes, who comes in with weeks of left arm numbness and today around 12:00 she felt her arm become more numb than usual and also felt weak so called EMS. She says the weakness has resolved but she still has numbness in the left arm. She denies any severe headaches, chest pain, difficulty breathing. She does note that she spoke with neurosurgery at [facility] who advised that she should go to their ER but she did not have a ride so she came here. Urinate to my exam is 1 with a left arm numbness loss of sensation to soft touch in the arm. Will reach out to [facility] neurosurgery, given her symptoms improved and the numbness has been going on for 2 weeks do not feel she is a lytic candidate. Will obtain a CT and CTA of the brain and neck to evaluate for acute vascular occlusion and hemorrhage, and also consult neurology. Labs and imaging unremarkable. Patient evaluated by teleneurology, agreed not to give lytics given unclear timeframe and improving symptoms. He did recommend giving 300 mg loading dose of Plavix. I did also speak with neurosurgery who has been in contact with the patient and does not feel like the syrinx is the cause of her symptoms but did recommend doing an MRI with and without of the C-spine, I did ask if this can wait till tomorrow and we do have MRI and she said this was acceptable. Patient will be admitted for telemetry monitoring and MRI brain and also MRI of her cervical spine Differential Diagnosis Differential Diagnosis: cva, tia, Medical Records Medical records reviewed: Yes I reviewed the patient's medical records. Lab Data Lab results reviewed: Yes I reviewed the patient's lab results. ECG Data Attestation: I personally reviewed and interpreted this ECG (s) as follows: Prior ECG tracings: available for review Interpretation: Sinus rhythm, rate 81, [place] 126, no STEMI Quality:SDOH Health Related Social Needs: No Data to Display PFSH All Active Problems (Updated 06/19/24 @ 14:45 by Cam Wilcox MD) Brain TIA (Acute) Arm numbness left (Acute) Back pain (Acute) UTI (urinary tract infection) (Acute) Migraine (Chronic) Poorly controlled type 1 diabetes mellitus with autonomic neuropathy (Acute) N&V (nausea and vomiting) (Acute) Chronic GERD (Acute) Elevated LFTs (Acute) PAD (peripheral artery disease) (Acute) ADIEL - done at [facility] surgical 01/28/24 Dysphagia (Acute) DKA (diabetic ketoacidosis) (Acute) Elevated TSH (Acute) Hx of tonsillectomy (Chronic) Atherosclerosis of coronary artery without angina pectoris (Acute) Retinopathy due to secondary diabetes mellitus (Acute) Gastroesophageal reflux disease without esophagitis (Acute) Mild intermittent asthma (Acute) Hyperlipemia (Acute) H/O heart artery stent (Chronic) 2 Stents at [facility] 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 of right ear (Acute) Nail dystrophy (Acute) Type 1 diabetes mellitus with diabetic polyneuropathy (Acute) Retinopathy (Acute) Type 1 diabetes mellitus (Acute) Asthma (Chronic) GERD (gastroesophageal reflux disease) (Chronic) CAD (coronary artery disease), [place] coronary artery (Acute) Neurogenic bladder (Acute) IDDM (insulin dependent diabetes mellitus) (Chronic) Nonsustained paroxysmal ventricular tachycardia (Acute) Vitamin D deficiency (Acute) Neuropathy (Acute) Chronic kidney disease, stage I (Acute) Hearing loss (Acute) Blind right eye (Acute) Cellulitis of foot (Acute) Medical History Hypomagnesemia Cancer of cervix Hyperkalemia Visual loss Acute pain in female pelvis Elevated troponin History of deep vein thrombophlebitis of lower extremity Surgical History Hx of LASIK Hx of section At [facility] 2006 History of partial hysterectomy Family History Father Asthma Diabetes Heart disease Hypertension Maternal Aunt Breast cancer Mother Hypertension Heart disease Maternal Aunt Breast cancer COPD (chronic obstructive pulmonary disease) Maternal Aunt Diabetes Social History Smoking/Tobacco Use Status: Never Second Hand Exposure: Yes Smoking risk assessment performed?: Yes Alcohol Intake: never Drug use: Never Substance use type: does not use Adopted: No Caregiver/Support person: Yes (significant other) Foster care: No Household members: significant other and children Housing: apartment Number of Children: 1 number of grandchildren: 0 Communication Needs: Hard of Hearing and Blind Education Level: high school Do you need help understanding health information?: Often current occupation: Disabled Pets and animals: Yes (1 Cat, 2 Guinea Pigs) Pets and animals: cat(s) and guinea pig(s) Do you think of yourself as: straight/heterosexual Current gender identity: female What is your relationship status?: living with partner How often do you talk on the phone with friends or family?: three or more times per week How often do you get together with friends or relatives?: three or more times per week How often do you attend scientologist or quaker services?: decline to answer Do you belong to any clubs or organized social groups?: no Panel score (0-1 are the most socially isolated patients): 2 What type of physical activity do you participate in: walking Duration: 15-30 minutes/day Frequency: daily Trina/Jain: None Seatbelt use: always Drive intox or ride w/intox car driver: No Do you feel safe at home: Yes Do you feel safe in your relationship?: Yes Female Reproductive History Menstrual Menopause type: surgical History History 14 Para Hx # Term Pregnancies Multiple births Hx # Pregnancies 1 Ectopic pregnancies AB induced Hx Number of Living Children AB spontaneous
[2024-06-19 13:29] LABS: Abs Immature Grans 0.02 10^3/uL (0.0-0.06); Absolute Basophil Count 0.03 10^3/uL (0.0-0.2); Absolute Lymphocyte Count 2.16 10^3/uL (1.2-3.4); Absolute Monocyte Count 0.69 10^3/uL (0.1-0.8); Absolute Neutrophil Count 2.95 10^3/uL (1.2-6.7); BE (Venous) 3 mmol/L (-2-3); Basophils % 0.5 %; Eosinophils % 1.7 %; HCO3 (Venous) 30 mmol/L (23-28); HCT 38.9 % (36.0-46.0); Immature Grans % 0.3 %; Lymphocytes % 36.3 %; MCH 31.7 pg (27.0-33.0); MCHC 33.4 % (32.0-36.0); MCV 95 fL (80-95); MPV 9.3 fL (8.0-11.0); Monocytes % 11.6 %; Neutrophils % 49.6 %; O2 Sat (Venous) 55 %; Platelet Count 183 10^3/uL (130-400); RDW 12.5 % (11.7-14.6); RDW-SD 43.8 fL; TCO2 (Venous) 28 mmol/L (24-29); WBC 5.95 10^3/uL (4.4-10.8); pCO2 (Venous) 60 mmHg (41-51); pO2 (Venous) 32 mmHg
[2024-06-19] MEDS: Omnipaque 350 MG/ML 100 ML BTL IJ (13:34)
[2024-06-19] MEDS: Normal Saline - Diluent 50 ML VIAL IJ (13:35)
[2024-06-19 13:50] LABS: ALT 49 U/L (14-59); AST 35 U/L (15-37); Albumin 3.7 g/dL (3.4-5.0); Alkaline Phosphatase 114 U/L (46-116); Anion Gap 6.1 mmol/L (3-11); BUN 22 mg/dL (7-18); Bilirubin, Total 0.45 mg/dL (0.2-1.0); CO2 30.9 mmol/L (21.0-32.0); Calcium 9.7 mg/dL (8.5-10.1); Chloride 105 mmol/L (98-107); ETHANOL BLOOD < 3.0 mg/dL (<10); Estimated GFR 68.63 (mL/min/1.73m2); Glucose 56 mg/dL (74-106); Magnesium 1.9 mg/dL (1.8-2.4); Potassium 4.7 mmol/L (3.5-5.1); Sodium 142 mmol/L (136-145); Total Protein 7.6 g/dL (6.4-8.2)
--- NOTE | 2024-06-19 14:13 | DI.VRAD_ITS ---
PROCEDURE INFORMATION: Exam: CTA Head Without And With Contrast, Arteriography Exam date and time: 06/19/2024 1:31 PM Age: 49 years old Clinical indication: Stroke-like symptoms; Left upper extremity numbness/paresthesia; Lt lower extremity weakness TECHNIQUE: Imaging protocol: Initial unenhanced images were obtained through the brain to determine presence or absence of acute hemorrhage prior to contrast administration. Computed tomographic angiography of the head without and with contrast. Exam focused on the arteries. 3D rendering (Not supervised by radiologist): MIP and/or 3D reconstructed images were created by the technologist. Contrast material: OMNIPAQUE 350; Contrast volume: 70 ml; Contrast route: INTRAVENOUS (IV); Other technique: STROKE PROTOCOL was implemented. COMPARISON: CT BRAIN NECK CTA 05/27/2024 8:46 PM FINDINGS: The unenhanced images demonstrate no obvious acute intracranial hemorrhage or mass effect. Chronic dystrophic calcification involves the globus pallidus bilaterally. Vascular image interpretation limited to 2 mm reconstructions and MIPS. The axial thin source images are non emergently available. Internal carotid: Diffuse atherosclerotic calcification of the intracranial internal carotid arteries producing at least mild stenosis. Assessment is suboptimal due to volume averaging artifacts. Both intracranial ICAs are patent. Anterior cerebral: Left proximal anterior cerebral artery is widely patent and supplies left and right A2 segments, the latter via a widely patent anterior communicating artery. Right A1 segment may be developmentally absent. This appearance is unchanged from 05/27/2024 exam. Middle cerebral: Bilateral proximal middle cerebral arteries are patent without flow-limiting stenosis or occlusion. There is grossly symmetric appearance of branch vessels within the sylvian fissures. Posterior cerebral: Bilateral proximal posterior cerebral arteries are patent without flow-limiting stenosis or occlusion. There are bilateral posterior communicating arteries, larger on left than right.. Vertebrobasilar: Basilar artery is patent without flow-limiting stenosis. Intracranial segments of both vertebral arteries are patent without flow-limiting stenosis. Venous sinuses: Major dural venous sinuses are patent without evidence of thrombus. IMPRESSION: 1. CTA head demonstrates no intracranial large vessel occlusion or flow-limiting stenosis. 2. Unenhanced head CT images showed no acute intracranial hemorrhage or mass effect. ASSESSMENT: ASPECTS ([place] Stroke Program Early CT Score) is 10. Diffusion MRI could provide more sensitive detection of acute ischemia if clinically warranted and feasible. PROCEDURE INFORMATION: Exam: CTA Neck Without And With Contrast Exam date and time: 06/19/2024 1:31 PM Age: 49 years old Clinical indication: Stroke-like symptoms; Left upper extremity numbness/paresthesia; Lt lower extremity weakness TECHNIQUE: Imaging protocol: Computed tomographic angiography of the neck without and with contrast. Exam focused on the cervical segments of the vasculature. 3D rendering (Not supervised by radiologist): MIP and/or 3D reconstructed images were created by the technologist. Contrast material: OMNIPAQUE 350; Contrast volume: 70 ml; Contrast route: INTRAVENOUS (IV); COMPARISON: CT BRAIN NECK CTA 05/27/2024 8:46 PM FINDINGS: Aortic arch: No significant stenosis of the great vessels at their origins from the aortic arch. Right carotid: Right common, internal, and external carotid arteries in the neck show no flow-limiting stenosis or occlusion or evidence of dissection. Left carotid: Left common, internal, and external carotid arteries in the neck are patent without flow-limiting stenosis or evidence of dissection. Left vertebral: Left vertebral artery is patent without flow-limiting stenosis or dissection. Right vertebral: Right vertebral artery is patent without evidence of flow-limiting stenosis or dissection. Soft tissues: No acute abnormality of the neck soft tissues is seen. 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 Probable mild broad subligamentous protrusion at C5-C6. IMPRESSION: CTA Neck shows no occlusion or severe stenosis of the extracranial cerebrovascular circulation. REFERENCES: NASCET CRITERIA. The degree of stenosis in the cervical segment of the internal carotid artery is based on NASCET criteria. Normal is no stenosis. Mild is less than 50% stenosis. Moderate is 50-69% stenosis. Severe is 70% to 99% stenosis. Total occlusion is no detectable patent lumen. Dictated and Authenticated by: Enrrique Valles MD. Ordering:FRANKLIN Levy MD
[2024-06-19] MEDS: Clopidogrel 300 MG TAB PO (14:38)
--- OUTSIDE RECORDS SUMMARY | 2024-06-19 15:11 | XMS_ITS | Continuity of Care Document ---
Author Organization [facility] Address [address] [place] [address] Encounter LTTL_[place] FIN NBR [id number] Date(s): 03/18/24 - 03/20/24 [facility] [address] [place] [address]- Encounter Diagnosis Hyperglycemia(Discharge Diagnosis) - 03/18/24 H/O insulin dependent diabetes mellitus(Discharge Diagnosis) - 03/18/24 Nausea and vomiting(Discharge Diagnosis) - 03/18/24 Fluid deficit(Discharge Diagnosis) - 03/18/24 AMS (altered mental status)(Discharge Diagnosis) - 03/19/24 CAD in [place] artery(Discharge Diagnosis) - 03/20/24 Leukocytosis(Discharge Diagnosis) - 03/20/24 Abnormal thyroid blood test(Discharge Diagnosis) - 03/20/24 Discharge Disposition: Home f/u External Provider Attending Physician: Willis Muro MD Admitting Physician: Willis Muro MD Allergies, Adverse Reactions, Alerts No Known Medication Allergies Assessment and Plan Extracted from: Title:Discharge Note Author:Willis Muro MD Date:03/20/24 Discharge Plan 1.??Hyperglycemia??R73.9 DKA, possibly from noncompliance. ??Resolved with strict DKA protocol. ??Transition to oral??diet, long-acting insulin, and subcutaneous insulin. 2.??H/O insulin dependent diabetes mellitus??Z86.39 She will continue current regimen at home as she has an adjustable sliding scale. ??We spoke about compliance.?? I will schedule her for the health promotion educator. ??PCP follow-up and endocrinology from there. 3.??Fluid deficit??E86.1 Resolved with aggressive IV fluid. 4.??Nausea and vomiting??R11.2 Resolved with??resolution of her hyperglycemia. 5.??AMS (altered mental status)??R41.82 Resolved with resolution of her DKA, altered??workup negative. ??Baseline and quite appropriate at discharge.?? Seizures tested as well with cerebell helmet and also negative. 6.??CAD in [place] artery??I25.10 Maintain aspirin, statin, reinitiation of lower dose beta-vesna. 7.??Leukocytosis??D72.829 Most likely secondary to DKA. ??Infectious workup??complete and negative. ??No indication for antibiotics at this time. 8.??Abnormal thyroid blood test??R79.89 Hard to interpret in the setting of acute illness.?? Thyroid peroxidase antibodies pending, T3??as well.?? Follow-up with PCP in??those values will be available consideration to repeat values as well. Orders: metoprolol succinate 25 mg oral capsule, extended release, 12.5 mg = 0.5 cap, Oral, Daily, # 15 cap, 0 Refill(s), Pharmacy: [id number], 162, cm, 03/19/24 1:06:00 EDT, Height, 59.42, kg, 03/18/24 15:40:00 EDT, Weight Dosing Blood Culture, Blood, Arm R, Routine collect, RT - Routine, 03/19/24 9:05:00 EDT, Once, Lab Collect, Print Label Blood Culture, Blood, Arm R, Routine collect, RT - Routine, 03/19/24 9:05:00 EDT, Once, Lab Collect, Print Label Follow Up With When Contact Information health promotion educator Within 1 to 2 weeks Additional Instructions: Please schedule with??Annelise??Jerome Follow up with primary care provider Within 1 week Additional Instructions: Extracted from: Title:H & P Author:Willis Muro MD Date :03/18/24 1.??Hyperglycemia??R73.9 Patient is not clear about her compliance or why her blood sugars have been high. ??I will need to reinterview her and see if I can ascertain this.?? Currently she is not in DKA.?? Her beta hydroxybutyrate??is elevated.?? Her anion gap is 16. ??This most likely will resolve quite well with IV fluid and she has gotten 3 units of insulin. ??Continue aggressive fluid resuscitation, repeat BMP, repeat lactic acid, repeat beta-hydroxybutyrate. ?? Sliding scale, add long-acting insulin as appropriate. ?? 2.??H/O insulin dependent diabetes mellitus??Z86.39 Maintain long-acting insulin as appropriate, Jardiance. ??Speak about compliance and education as needed. 3.??Fluid deficit??E86.1 Aggressive??fluid resuscitation. ??She has received normal saline??boluses in the emergency room. 4.??Nausea and vomiting??R11.2 This may be secondary to??hypoglycemia or the reverse order may be true as well. ??Awaiting urinalysis. ??Abdominal scanning is negative. ??Symptom management 5.??Pain in the abdomen??R10.9 Negative imaging??at this time. ??May be related to her hyperglycemia. 6.??Hypertension??I10 Continue metoprolol with high hold parameters. ?? Time??spent??on patient care today is 60 minutes. ?? Orders: aspirin, 81 mg = 1 tab, Chewed, Tab-Chew, Daily, First Dose: 03/19/24 9:00:00 EDT, Routine atorvastatin, 80 mg = 4 tab, Oral, Tab, every night at bedtime, First Dose: 03/19/24 21:00:00 EDT, STAT Jardiance, 10 mg = 1 tab, Oral, Tab, every morning, First Dose: 03/19/24 5:00:00 EDT, Routine glucagon, 1 mg = 1 EA, Subcutaneous, Injection, As Directed, First Dose: 03/18/24 17:35:00 EDT, Physician Stop, Routine Dextrose 50% injection, 25 g = 50 mL, IV Push, Injection, As Directed, First Dose: 03/18/24 17:35:00 EDT, Physician Stop, Routine insulin aspart Sliding Scale - Low Dose, Insulin Aspart Sliding Scale See Comments, Subcutaneous, Injection, AC & bedtime, First Dose: 03/18/24 21:00:00 EDT, Routine Lactated Ringers Injection 1,000 mL, Total Volume (mL): 1,000, 1,000 mL, Soln- IV, IV, 125 mL/hr, Start Date: 03/18/24 17:39:00 EDT, 59.42 kg, Populate Charting Weight From Order, 1.64, m2 magnesium oxide, 400 mg = 1 tab, Oral, Tab, Daily, First Dose: 03/19/24 9:00:00 EDT, Routine Metoprolol Succinate ER, 25 mg = 1 tab, Oral, Tab-ER, Daily, First Dose: 03/19/24 9:00:00 EDT, Routine Basic Metabolic Panel, Blood, Routine, 03/18/24 19:00:00 EDT, Once, Nurse collect Basic Metabolic Panel, Blood, Routine, 03/18/24 17:36:00 EDT, every morning, for 3 days, Lab Collect Beta Hydroxybutyrate, Blood, Stat, 03/18/24 19:00:00 EDT, Once, Nurse collect Blood Glucose Monitoring POC RE, 03/18/24 17:35:00 EDT, AC & bedtime CBC w/ Diff, Blood, Routine, 03/18/24 17:36:00 EDT, every morning, for 3 days, Lab Collect Consult to Dietitian Adult, 03/18/24 17:35:00 EDT, Reason for Consult Education Diet Order, 03/18/24 17:35:00 EDT, Consistent Carbohydrates, Na: 2 g sodium Intake and Output, 03/18/24 17:35:00 EDT, every 12 hr (essie), q shift, 03/18/24 21:00:00 EDT Magnesium Level, Blood, Routine, 03/18/24 17:36:00 EDT, every morning, for 3 days, Lab Collect Occupational Therapy Evaluation and Treatment Acute, 03/18/24 17:35:00 EDT, Once Patient Condition, 03/18/24 17:35:00 EDT, Condition Guarded Physical Therapy Evaluation and Treatment, 03/18/24 17:35:00 EDT, Once PSO Place in Observation, Observation, Observation, 03/18/24 17:33:00 EDT, 03/18/24 17:33:00 EDT, 03/18/24 17:33:00 EDT, 1 midnight or less Resuscitation Status, 03/18/24 17:35:00 EDT, Full Code Up ad Donna, 03/18/24 17:35:00 EDT, Constant Order, at nurse's discretion, 03/18/24 17:35:00 EDT Vital Signs, 03/18/24 17:35:00 EDT, every 4 hr (essie) Weight, 03/19/24 5:00:00 EDT, every 24 hr Extracted from: Title:ED Provider Note Author:MD Jonathan Lazo ate:03/18/24 1.??Nausea and vomiting??R11 .2 Orders: insulin regular 100 units/mL human recombinant injectable solution, 3 units = 0.03 mL, IV Push, Soln, Once, First Dose: 03/18/24 18:00:00 EDT, Stop Date: 03/18/24 18:00:00 EDT, Physician Stop, Routine Protonix, 40 mg = 1 EA, IV Push, Vial, Once, First Dose: 03/18/24 18:00:00 EDT, Stop Date: 03/18/24 18:00:00 EDT, Physician Stop, Routine Sodium Chloride 0.9% 1,000 mL, Total Volume (mL): 1,000, 1,000 mL, Soln-IV, Medication Bolus, 999 mL/hr, Order Duration: 1 times, Start Date: 03/18/24 17:25:00 EDT, Stop Date: 03/18/24 18:24:00 EDT, 59.42 kg, Populate Charting Weight From Order, 1.64, m2 CV Electrocardiogram 12 Lead, 03/18/24 15:30:00 EDT, Stat, Reason: Chest Pain, Stop date and time 03/18/24 15:30:00 EDT, ORD_SET_REQ_DT_RANGE, Juan David's Internal Person Id Lactic Acid, Blood, RT, 03/18/24 18:51:00 EDT, Once, Lab Collect Troponin-I High Sensitivity, Blood, Stat, 03/18/24 15:30:00 EDT, Once, Nurse collect Diagnostic Tests Pending * Thyrotropin Receptor Ab, Serum LC 03/19/24 Functional Status 03/20/24 Current Home Treatments Blood glucose mo nitoring Home Equipment Blood glucose monito r, Walker, Other: states they have walkers and assistive devices at home. He is aware she will need help walking to toilet, and for cares. Pt states her daughter takes care of her electronics system mechanic. 03/20/24 Lunch Percent 50 03/20/24 Activity Status ADL Other: eating breakf ast sitting upright in bed Breakfast Percent 15 1 03/20/24 Positioning/Pressure Reducing Devices Pi llow Personal Care Provided Other: face wash, viera care complete 03/20/24 Evening Snack Percent 100 2 03/19/24 Recent Travel History No recent travel 03/18/24 Living Environment No Living Environmen t Information Available Lives With Significant other Living Situation Home independently 03/18/24 ADLs Independent 1Result Comment: scrambled eggs 2Result Comment: applesauce Medications Aspirin Low Dose 81 mg oral tablet, chewable 81 mg = 1 tab, Chewed, Daily Start Date: 03/18/24 Status: Ordered atorvastatin 80 mg oral tablet 80 mg = 1 tab, Oral, Daily Start Date: 03/18/24 Status: Ordered Basaglar KwikPen 100 units/mL subcutaneous solution 20 units =, Subcutaneous, Daily Start Date: 03/18/24 Status: Ordered Fiasp FlexTouch 100 units/mL injectable solution Subcutaneous, TID(AC), sliding scale Start Date: 03/18/24 Status: Ordered Jardiance 10 mg oral tablet 10 mg = 1 tab, Oral, every morning Start Date: 03/18/24 Status: Ordered magnesium oxide 400 mg (241.3 mg elemental magnesium) oral tablet 400 mg = 1 tab, Oral, Daily Start Date: 03/18/24 Status: Ordered metoprolol succinate 25 mg oral capsule, extended release 12.5 mg = 0.5 cap, Oral, Daily, # 15 cap, 0 Refill(s), Pharmacy: [facility], 162, cm, 03/19/24 1:06:00 EDT, Height, 59.42, kg, 03/18/24 15:40:00 EDT, Weight Dosing Start Date: 03/20/24 Stop Date: 04/19/24 Status: Ordered Tab-A-Aaron oral tablet 1 tab, Oral, Daily Start Date: 03/18/24 Status: Ordered Mental Status 03/20/24 Eye Opening Response Dutch Spontaneous ly Best Verbal Response Dutch Oriented Best Motor Response Dutch Obeys comman ds Wayland Coma Score 15 Problem List Condition Confirmation Course Effective Dates Status Health St atus Informant H/O insulin dependent diabetes mellitus Confirmed Active Results Laboratory List Name Date Glucose POCT 03/20/24 Glucose POCT 03/20/24 .Manual Differential (LTTL) 03/20/24 Basic Metabolic Panel (BMP) 03/20/24 CBC w/ Diff 03/20/24 Hgb A1c (Hemoglobin A1C) 03/20/24 Magnesium Level 03/20/24 Glucose POCT 03/20/24 Basic Metabolic Panel (BMP) 03/19/24 Blood Gas Venous 03/19/24 Phosphorus Level 03/19/24 Basic Metabolic Panel (BMP) 03/19/24 Beta Hydroxybutyrate 03/19/24 Blood Gas Venous 03/19/24 Phosphorus Level 03/19/24 Beta Hydroxybutyrate 03/19/24 Blood Gas Venous 03/19/24 Phosphorus Level 03/19/24 Respiratory Panel 2.1 (BioFire) 03/19/24 Staph Nasal Complete (GeneXpert) (MRSA/M SSA Nasal (GeneXpert)) 03/19/24 Automated Diff 03/19/24 Beta Hydroxybutyrate 03/19/24 CBC w/ Diff 03/19/24 Magnesium Level 03/19/24 Blood Gas Arterial 03/19/24 Creatinine Urine 03/19/24 Drug Screen Urine 03/19/24 Sodium Level Urine 03/19/24 Alcohol Lvl 03/19/24 CBC w/ Diff 03/19/24 Free T4 03/19/24 Lactic Acid 03/19/24 Magnesium Level 03/19/24 T3 Free 03/19/24 T3 Total 03/19/24 TSH w/ Rflx to Free T4 03/19/24 Blood Gas Arterial 03/19/24 Automated Diff 03/19/24 Vitamin B12 & Folate Level 03/18/24 Lactic Acid 03/18/24 Urinalysis with Micro if Indicated and C ulture if Indicated 03/18/24 Troponin-I High Sensitivity (High Sensit ivityTroponin-I) 03/18/24 .Manual Differential (LTTL) 03/18/24 CBC w/ Diff 03/18/24 Comprehensive Metabolic Panel (CMP) 03/18 Lactic Acid 03/18/24 Lipase Level 03/18/24 Troponin-I High Sensitivity (High Sensit ivityTroponin-I) 03/18/24 Most recent to oldest [Reference Range]: 1 2 3 pCO2 Art [35.0-48.0 mmHg] 31.0 mmHg *LOW* (03/19/24 10:06 AM) 31.0 mmHg *LOW* (03/19/24 7:33 AM) pH Art [7.35-7.45 pH unit(s)] 7.22 pH un it(s) *LOW* (03/19/24 10:06 AM) 7.26 pH unit(s) *LOW* (03/19/24 7:33 AM) pO2 Art [83.0-108.0 mmHg] 41.0 mmHg 1 *CRIT* (03/19/24 10:06 AM) 44.0 mmHg 2 *CRIT* (03/19/24 7:33 AM) WBC [4.8-10.8 K/mcL] 15.5 K/mcL *HI* (03/20/24 3:20 AM) 16.3 K/mcL *HI* (03/19/24 10:45 AM) 13.6 K/mcL *HI* (03/19/24 7:40 AM) RBC [4.20-5.40 Million/mcL] 3.35 Million /mcL *LOW* (03/20/24 3:20 AM) 3.54 Million/mcL *LOW* (03/19/24 10:45 AM) 3.36 Million/mcL *LOW* (03/19/24 7:40 AM) Segs Man 82 *NA* (03/20/24 3:20 AM) 89 *NA* (03/18/24 3:51 PM) Lymph Man [20.5-51.1 %] 10.0 % *LOW* (03/20/24 3:20 AM) 9.0 % *LOW* (03/18/24 3:51 PM) Neutro Auto [42.2-75.2 %] 89.1 % *HI* (03/19/24 10:45 AM) 88.3 % *HI* (03/19/24 7:40 AM) Lymph Auto [20.5-51.1 %] 8.1 % *LOW* (03/19/24 10:45 AM) 7.8 % *LOW* (03/19/24 7:40 AM) [place] Auto [1.7-9.3 %] 2.7 % (03/19/24 10:45 AM) 3.8 % (03/19/24 7:40 AM) Basophil Auto [0.0-0.8 %] 0.1 % (03/19/24 10:45 AM) 0.1 % (03/19/24 7:40 AM) [place] Man [1.7-9.3 %] 6.0 % (03/20/24 3:20 AM) 2.0 % (03/18/24 3:51 PM) Eos Man [0.00-3.00 %] 0.00 % (03/20/24 3:20 AM) 0.00 % (03/18/24 3:51 PM) BUN [7-25 mg/dL] 34 mg/dL *HI* (03/20/24 3:20 AM) 34 mg/dL *HI* (03/19/24 8:12 PM) 35 mg/dL *HI* (03/19/24 4:45 PM) Glucose POC 187 *NA* (03/20/24 11:42 AM) 290 *NA* (03/20/24 9:05 AM) 180 *NA* (03/20/24 1:14 AM) U Amph Scrn [Negative] Negative 3 (03/19/24 9:11 AM) UA Color LIGHT YELL *NA* (03/18/24 6:50 PM) Glucose Level [70-109 mg/dL] 199 mg/dL *HI* (03/20/24 3:20 AM) 120 mg/dL *HI* (03/19/24 8:12 PM) 169 mg/dL *HI* (03/19/24 4:45 PM) Potassium Level [3.5-5.1 mmol/L] 4.6 mmol/L (03/20/24 3:20 AM) 5.1 mmol/L (03/19/24 8:12 PM) 4.4 mmol/L (03/19/24 4:45 PM) Baso Absolute [0.0-0.2 K/mcL] 0.0 K/mcL (03/19/24 10:45 AM) 0.0 K/mcL (03/19/24 7:40 AM) U Benzodia Scrn [Negative] Negative (03/19/24 9:11 AM) MCV [81.0-99.0 fL] 93.9 fL (03/20/24 3:20 AM) 94.9 fL (03/19/24 10:45 AM) 93.9 fL (03/19/24 7:40 AM) UA Urobilinogen [0.2] 0.2 *NA* (03/18/24 6:50 PM) RBC Morph [Normal] Abnormal *ABN* (03/20/24 3:20 AM) Normal (03/18/24 3:51 PM) T4 Free [0.61-1.12 ng/dL] 1.99 ng/dL 4 *HI* (03/19/24 7:40 AM) UA Bili [Negative] Negative *NA* (03/18/24 6:50 PM) CO2 Total Venous [22.0-26.0 mmol/L] 20.1 mmol/L *LOW* (03/19/24 8:12 PM) 20.1 mmol/L *LOW* (03/19/24 4:45 PM) 13.9 mmol/L *LOW* (03/19/24 1:31 PM) UA Ketones [Negative] 40 *NA* (03/18/24 6:50 PM) HCO3 Venous [22.0-29.0 mmol/L] 19.2 mmol/L *LOW* (03/19/24 8:12 PM) 19.1 mmol/L *LOW* (03/19/24 4:45 PM) 13.0 mmol/L *LOW* (03/19/24 1:31 PM) AST [13-39 IntlUnit/L] 43 IntlUnit/L *HI* (03/18/24 3:51 PM) ALT [7-52 IntlUnit/L] 42 IntlUnit/L (03/18/24 3:51 PM) MCHC [32.0-37.0 g/dL] 33.2 g/dL (03/20/24 3:20 AM) 32.6 g/dL (03/19/24 10:45 AM) 33.3 g/dL (03/19/24 7:40 AM) Osmolality [275-295 mOsm/kg] 278 mOsm/kg (03/20/24 3:20 AM) 275 mOsm/kg (03/19/24 8:12 PM) 278 mOsm/kg (03/19/24 4:45 PM) T3 Free [2.50-3.90 pg/mL] 2.14 pg/mL 5 *LOW* (03/19/24 7:40 AM) Sodium Level [136-145 mmol/L] 132 mmol/L *LOW* (03/20/24 3:20 AM) 133 mmol/L *LOW* (03/19/24 8:12 PM) 133 mmol/L *LOW* (03/19/24 4:45 PM) Folate Level [>=5.9 ng/mL] >24.8 ng/mL (03/18/24 8:10 PM) UA Leuk Est [Negative] Negative (03/18/24 6:50 PM) Lymph Absolute [1.2-3.4 K/mcL] 1.3 K/mcL (03/19/24 10:45 AM) 1.1 K/mcL *LOW* (03/19/24 7:40 AM) UA Nitrite [Negative] Negative *NA* (03/18/24 6:50 PM) UA Glucose [Negative] >=1000 *NA* (03/18/24 6:50 PM) Hct [37.0-47.0 %] 31.4 % *LOW* (03/20/24 3:20 AM) 33.6 % *LOW* (03/19/24 10:45 AM) 31.6 % *LOW* (03/19/24 7:40 AM) Lipase Level [11-82 unit/L] 16 unit/L 6 (03/18/24 3:51 PM) U Cocaine Scrn [Negative] Negative (03/19/24 9:11 AM) Calcium Level [8.6-10.3 mg/dL] 8.4 mg/dL *LOW* (03/20/24 3:20 AM) 8.4 mg/dL *LOW* (03/19/24 8:12 PM) 8.6 mg/dL (03/19/24 4:45 PM) [place] Absolute [0.1-0.6 K/mcL] 0.4 K/mcL (03/19/24 10:45 AM) 0.5 K/mcL (03/19/24 7:40 AM) Phosphorus Level [2.5-5.0 mg/dL] 2.4 mg/dL *LOW* (03/19/24 8:12 PM) 2.0 mg/dL *LOW* (03/19/24 4:45 PM) 3.0 mg/dL (03/19/24 1:31 PM) Albumin Level [3.5-5.7 g/dL] 4.4 g/dL (03/18/24 3:51 PM) Protein Total [6.4-8.9 g/dL] 7.7 g/dL (03/18/24 3:51 PM) UA Protein [Negative] Negative *NA* (03/18/24 6:50 PM) Poik 1+ *ABN* (03/20/24 3:20 AM) MCH [27.0-31.0 pg] 31.2 pg *HI* (03/20/24 3:20 AM) 30.9 pg (03/19/24 10:45 AM) 31.3 pg *HI* (03/19/24 7:40 AM) Magnesium Level [1.9-2.7 mg/dL] 2.0 mg/dL (03/20/24 3:20 AM) 2.2 mg/dL (03/19/24 10:45 AM) 2.1 mg/dL (03/19/24 7:40 AM) Neutro Absolute [1.4-6.5 K/mcL] 14.5 K/mcL *HI* (03/19/24 10:45 AM) 12.0 K/mcL *HI* (03/19/24 7:40 AM) Bilirubin Total [0.3-1.0 mg/dL] 0.9 mg/dL (03/18/24 3:51 PM) Hgb [12.0-16.0 g/dL] 10.4 g/dL *LOW* (03/20/24 3:20 AM) 11.0 g/dL *LOW* (03/19/24 10:45 AM) 10.5 g/dL 7 *LOW* (03/19/24 7:40 AM) B12 Level [180-914 pg/mL] 750 pg/mL (03/18/24 8:10 PM) Alk Phos [34-104 IntlUnit/L] 83 IntlUnit /L (03/18/24 3:51 PM) UA Blood [Negative] Negative (03/18/24 6:50 PM) MPV [7.4-10.4 fL] 7.3 fL *LOW* (03/20/24 3:20 AM) 8.1 fL (03/19/24 10:45 AM) 8.0 fL (03/19/24 7:40 AM) pCO2 Butch [42.0-53.0 mmHg] 29.0 mmHg *LOW* (03/19/24 8:12 PM) 33.0 mmHg *LOW* (03/19/24 4:45 PM) 29.0 mmHg *LOW* (03/19/24 1:31 PM) CO2 Total Arterial [19.0-24. 0 mmol/L] 13.7 mmol/L *LOW* (03/19/24 10:06 AM) 14.9 mmol/L *LOW* (03/19/24 7:33 AM) Ethanol Level [0.00-0.08 g/dL] <0.01 g/dL 8 (03/19/24 7:40 AM) Band Man 2 % *NA* (03/20/24 3:20 AM) 0 % *NA* (03/18/24 3:51 PM) UA Spec Grav [1.001-1.030] 1.010 (03/18/24 6:50 PM) Platelets [130-400 K/mcL] 165 K/mcL (03/20/24 3:20 AM) 179 K/mcL (03/19/24 10:45 AM) 174 K/mcL (03/19/24 7:40 AM) CO2 [21-31 mmol/L] 19 mmol/L *LOW* (03/20/24 3:20 AM) 18 mmol/L *LOW* (03/19/24 8:12 PM) 18 mmol/L *LOW* (03/19/24 4:45 PM) Eos Absolute [0.0-0.2 K/mcL] 0.0 K/mcL (03/19/24 10:45 AM) 0.0 K/mcL (03/19/24 7:40 AM) U Eleanor Scrn [Negative] Negative (03/19/24 9:11 AM) Lactic Acid Lvl [0.5-2.2 mmol/L] 2.2 mmol/L (03/19/24 7:40 AM) 3.6 mmol/L *HI* (03/18/24 6:50 PM) 2.7 mmol/L *HI* (03/18/24 3:51 PM) TSH [0.45-5.33 mcIntlUnit/mL] 0.09 mcInt lUnit/mL *LOW* (03/19/24 7:40 AM) T3 Total [0.87-1.78 ng/mL] <0.42 ng/mL 9 *LOW* (03/19/24 7:40 AM) Macrocyte 1+ *ABN* (03/20/24 3:20 AM) UA pH [5.00-9.00] 5.50 (03/18/24 6:50 PM) pH Butch [7.32-7.43 pH unit(s)] 7.43 pH un it(s) (03/19/24 8:12 PM) 7.37 pH unit(s) (03/19/24 4:45 PM) 7.26 pH unit(s) *LOW* (03/19/24 1:31 PM) U Opiate Scrn [Negative] Negative (03/19/24 9:11 AM) Base Excess Arterial [-2.0-3.0 mmol/L] -13.8 mmol/L *LOW* (03/19/24 10:06 AM) -12.0 mmol/L *LOW* (03/19/24 7:33 AM) UA Appear [Clear] Clear (03/18/24 6:50 PM) U Creatinine 42.0 mg/dL *NA* (03/19/24 9:11 AM) Chloride Level [98-107 mmol/L] 105 mmol/L (03/20/24 3:20 AM) 108 mmol/L *HI* (03/19/24 8:12 PM) 107 mmol/L (03/19/24 4:45 PM) U Oxy Scrn [Negative] Negative (03/19/24 9:11 AM) U PCP Scrn [Negative] Negative (03/19/24 9:11 AM) RDW-CV [11.5-14.5 %] 14.6 % *HI* (03/20/24 3:20 AM) 14.5 % (03/19/24 10:45 AM) 14.1 % (03/19/24 7:40 AM) Adenovirus RespP-BFire [Not Detected] Not Detected (03/19/24 1:31 PM) Bordetella parapertussis RespP-BFire [Not Detected] Not Detected (03/19/24 1:31 PM) Bordetella pertussis RespP-BFire [Not Detected] Not Detected (03/19/24 1:31 PM) Chlamydophila pneumoniae RespP-BFire [Not Detected] Not Detected (03/19/24 1:31 PM) Coronavirus 229E (Not COVID-19) RP-BFire [Not Detected] Not Detected (03/19/24 1:31 PM) Coronavirus HKU1 (Not COVID-19) RP-BFire [Not Detected] Not Detected (03/19/24 1:31 PM) Coronavirus NL63 (Not COVID-19) RP-BFire [Not Detected] Not Detected (03/19/24 1:31 PM) Coronavirus OC43 (Not COVID-19) RP-BFire [Not Detected] Not Detected (03/19/24 1:31 PM) Human Metapneumonovirus RespP-BFire [Not Detected] Not Detected (03/19/24 1:31 PM) Human Rhinovirus/Enterovirus RespP-BFir [Not Detected] Not Detected (03/19/24 1:31 PM) Influenza A RespP-BFire [Not Detected] Not Detected (03/19/24 1:31 PM) Influenza B RespP-BFire [Not Detected] Not Detected (03/19/24 1:31 PM) Mycomplasma pneumoniae RespP-BFire [Not Detected] Not Detected (03/19/24 1:31 PM) Parainfluenza Virus 1 RespP-BFire [Not Detected] Not Detected (03/19/24 1:31 PM) Parainfluenza Virus 2 RespP-BFire [Not Detected] Not Detected (03/19/24 1:31 PM) Parainfluenza Virus 3 RespP-BFire [Not Detected] Not Detected (03/19/24 1:31 PM) Parainfluenza Virus 4 RespP-BFire [Not Detected] Not Detected (03/19/24 1:31 PM) Respiratory Syncytial Virus RespP-BFire [Not Detected] Not Detected (03/19/24 1:31 PM) A/G Ratio [1.0-2.5 g/dL] 1.3 g/dL (03/18/24 3:51 PM) BUN/Creat Ratio [8.0-20.0] 28.3 *HI* (03/20/24 3:20 AM) 26.2 *HI* (03/19/24 8:12 PM) 26.9 *HI* (03/19/24 4:45 PM) Globulin [2.3-3.5 g/dL] 3.3 g/dL (03/18/24 3:51 PM) Ovalocytes 1+ *ABN* (03/20/24 3:20 AM) U THC Scr [Negative] Positive *ABN* (03/19/24 9:11 AM) U PPX Scr [Negative] Negative (03/19/24 9:11 AM) U Methadone Scr [Negative] Negative (03/19/24 9:11 AM) MRSA Screen -GeneXpert [Negative] Negative (03/19/24 1:31 PM) Slide Review Man Diff (03/20/24 3:20 AM) Not Indicated (03/19/24 7:40 AM) Man Diff (03/18/24 3:51 PM) Urine Srce Clean Catch (03/18/24 6:50 PM) U Buprenorph Scr [Negative] Negative (03/19/24 9:11 AM) Abs Baso Man [0.0-0.2 K/mcL] 0.0 K/mcL (03/20/24 3:20 AM) 0.0 K/mcL (03/18/24 3:51 PM) Abs Eos Man [0.0-0.2 K/mcL] 0.0 K/mcL (03/20/24 3:20 AM) 0.0 K/mcL (03/18/24 3:51 PM) Abs Lymph Man [1.2-3.4 K/mcL] 1.6 K/mcL (03/20/24 3:20 AM) 1.1 K/mcL *LOW* (03/18/24 3:51 PM) Abs [place] Man [0.1-0.6 K/mcL] 0.9 K/mcL *HI* (03/20/24 3:20 AM) 0.2 K/mcL (03/18/24 3:51 PM) Abs Neut Man [1.4-6.5 K/mcL] 13.0 K/mcL *HI* (03/20/24 3:20 AM) 10.4 K/mcL *HI* (03/18/24 3:51 PM) Hgb A1c Percent [4.0-6.0 %] 8.7 % *HI* (03/20/24 3:20 AM) Staphylococcus aureus Screen -GeneXpert [Negative] Negative (03/19/24 1:31 PM) Creatinine Level [0.60-1.20 mg/dL] 1.20 mg/dL (03/20/24 3:20 AM) 1.30 mg/dL *HI* (03/19/24 8:12 PM) 1.30 mg/dL *HI* (03/19/24 4:45 PM) HCO3 Art [21.0-28.0 mmol/L] 12.7 mmol/L *LOW* (03/19/24 10:06 AM) 13.9 mmol/L *LOW* (03/19/24 7:33 AM) SARS-CoV-2 (COVID-19) RP-BFire [Not Detected] Not Detected (03/19/24 1:31 PM) Plt Estimation Normal (03/20/24 3:20 AM) Normal (03/18/24 3:51 PM) U Sodium 18 mmol/L *NA* (03/19/24 9:11 AM) Troponin-I HS [<=12 ng/L] 10 ng/L 10 (03/18/24 5:06 PM) 10 ng/L 11 (03/18/24 3:51 PM) Anion Gap [3.0-12.0] 8.0 (03/20/24 3:20 AM) 7.0 (03/19/24 8:12 PM) 8.0 (03/19/24 4:45 PM) Baso Man [0.0-0.8 %] 0.0 % (03/20/24 3:20 AM) 0.0 % (03/18/24 3:51 PM) Beta-Hydroxybutyrate [0.02-0.27 mm] 1.33 mm *HI* (03/19/24 4:45 PM) 5.31 mm *HI* (03/19/24 1:31 PM) 6.75 mm *HI* (03/19/24 10:45 AM) Eos, Auto [0.00-3.00 %] 0.00 % (03/19/24 10:45 AM) 0.00 % (03/19/24 7:40 AM) Instr Ethanol Lvl [<=10 mg/dL] <10 mg/dL (03/19/24 7:40 AM) eGFR CKD-EPI [>=60 mL/min/1.73 m2] 55 mL/min/1.73 m2 *LOW* (03/20/24 3:20 AM) 50 mL/min/1.73 m2 *LOW* (03/19/24 8:12 PM) 50 mL/min/1.73 m2 *LOW* (03/19/24 4:45 PM) U Fentanyl Scr [Negative] Negative (03/19/24 9:11 AM) O2 Sat Art [94.0-98.0 %] 66.4 % *LOW* (03/19/24 10:06 AM) 71.8 % *LOW* (03/19/24 7:33 AM) 1Result Comment: Results verified by repeat analysis. Called and read back by Jethro Sullivan at 03/19/2024 10:15:37 EDT/ns 2Result Comment: Results verified by repeat analysis. Called and read back by Jethro Sullivan at 03/19/2024 07:48:29 EDT/ns 3Interpretive Data: ???This test only provides a preliminary test result. A more specific alternate chemical method must be used in order to obtain a confirmed analytical result. Gas Chromatography/Mass Spectrometry (GC/MS) is the preferred confirmatory method. Clinical consideration and professional judgment should be applied to any drug of abuse test result, particularly when preliminary positive results are used. Please contact the laboratory if you wish to reflex to confirmatory (GC/MS) testing based upon screening results. THRESHOLD CONCENTRATIONS: AMP/MAMP 1000 ng/mL Please noth that Methamphetamin screen is included with the Amphetamine screen BAR 200 ng/mL BUP 5 ng/mL BZO 200 ng/mL KEYSHAWN 300 ng/mL MTD 300 ng/mL OPI 300 ng/mL OXY 100 ng/mL PCP 25 ng/mL PPX 300 ng/mL THC 50 ng/mL FENT 5 ng/ml 4Interpretive Data: Possible Interfering Substance: Biotin > 10 ng/mL may falsely elevate Free [id number]. 5Interpretive Data: Possible Interfering Substance: Biotin >10 ng/mL may falsely elevate Free T3 results 6Interpretive Data: C-lcpkof-l-benzoquinone imine (meabolite of Acetaminophen) will generate erroneously low lipase results in samples for patients that have taken toxic doses of acetaminophen. 7Result Comment: Results verified by repeat analysis. 8Result Comment: Results outside of linerity range. Unable to calculate. 9Interpretive Data: Possible Interfering Substance: Biotin >10 ng/mL may falsely elevate Total [id number] 10Interpretive Data: The [facility] ACCESS high-sensitivity Troponin I (hsTNI) 99 percentile cutoffs forhealthy adults are 12 ng/L or less for females and 20 ng/L or less for males. SERIAL MEASUREMENT IS HIGHLY RECOMMENDED for the diagnosis or exclusion of Acute Coronary Syndromes(ACS). Please refer to the High-Sensitivity Troponin Algorithm 2023 for guidance. As with all markers of cardiac injury, elevations of hsTnI do not in and of themselves indicate thepresence of an ischemic mechanism. Many other disease states can be associated with elevations via mechanisms different from those that cause injury in patients with ACS. These include trauma (contusion, ablation, pacing); congestive heart failure; pulmonary embolism; kidney failure; and myocarditis. Clinical judgement is necessary to distinguish patients who have ischemic heart disease from those who do not. 11Interpretive Data: The [facility] ACCESS high-sensitivity Troponin I (hsTNI) 99 percentile cutoffs forhealthy adults are 12 ng/L or less for females and 20 ng/L or less for males. SERIAL MEASUREMENT IS HIGHLY RECOMMENDED for the diagnosis or exclusion of Acute Coronary Syndromes(ACS). Please refer to the High-Sensitivity Troponin Algorithm 2023 for guidance. As with all markers of cardiac injury, elevations of hsTnI do not in and of themselves indicate thepresence of an ischemic mechanism. Many other disease states can be associated with elevations via mechanisms different from those that cause injury in patients with ACS. These include trauma (contusion, ablation, pacing); congestive heart failure; pulmonary embolism; kidney failure; and myocarditis. Clinical judgement is necessary to distinguish patients who have ischemic heart disease from those who do not. Orders for Microbiology Reports Name Date Blood Culture 03/19/24 Blood Culture 8/17/24 Microbiology Reports TEST:Blood Culture STATUS:Order in Progress BODY SITE:Right Arm SOURCE:Blood COLLECTED DATE/TIME:03/19/24 10:50 AM PRELIMINARY REPORT No growth at 1 day. TEST:Blood Culture STATUS:Order in Progress BODY SITE:Right Arm SOURCE:Blood COLLECTED DATE/TIME:03/19/24 10:45 AM PRELIMINARY REPORT No growth at 1 day. Radiology Reports * Exam Date Time Procedure Performing Provider Status 03/19/24 10:37 AM XR Chest 1 View Radha Vasquez; Auth ( Verified) Notes: (XR Chest 1 View) Reason For Exam: hypoxia XR Chest 1 View PROCEDURE INFORMATION: Exam: XR Chest Exam date and time: 03/19/2024 10:26 AM Age: 48 years old Clinical indication: Other: Hypoxia TECHNIQUE: Imaging protocol: Radiologic exam of the chest. Views: 1 view. COMPARISON: CT ANGIO CHEST 03/18/2024 4:51 PM FINDINGS: Lungs: Unremarkable. No consolidation. Pleural spaces: Unremarkable. No pleural effusion. No pneumothorax. Heart/Mediastinum: Unremarkable. No cardiomegaly. Bones/joints: Unremarkable. IMPRESSION: No acute findings. THIS DOCUMENT HAS BEEN ELECTRONICALLY SIGNED BY ADELINA UMANA MD on 03/19/2024 11:00 AM Final Signed by: Adelina Umana MD Signed (Electronic Signature): 03/19/2024 11:00 am * Exam Date Time Procedure Performing Provider Status 03/19/24 7:[address] Head w/o Contrast DomainUser, Gener ated; Auth (Verified) Notes: (CT Head w/o Contrast) Reason For Exam: lethargic CT Head w/o Contrast PROCEDURE INFORMATION: Exam: CT Head Without Contrast Exam date and time: 03/19/2024 8:52 AM Age: 48 years old Clinical indication: Other: Lethargic TECHNIQUE: Imaging protocol: Computed tomography of the head without contrast. Radiation optimization: All CT scans at this facility use at least one of these dose optimization techniques: automated exposure control; mA and/or kV adjustment per patient size (includes targeted exams where dose is matched to clinical indication); or iterative reconstruction. COMPARISON: No relevant prior studies available. FINDINGS: Brain: Normal. No hemorrhage. Unremarkable white matter. No mass effect. Cerebral ventricles: No ventriculomegaly. Paranasal sinuses: Visualized sinuses are unremarkable. No fluid levels. Mastoid air cells: Visualized mastoid air cells are well aerated. Bones: Unremarkable. No acute fracture. Soft tissues: Unremarkable. IMPRESSION: No acute intracranial abnormality. THIS DOCUMENT HAS BEEN ELECTRONICALLY SIGNED BY ADELINA UMANA MD on 03/19/2024 10:55 AM Final Signed by: Adelina Umana MD Signed (Electronic Signature): 03/19/2024 10:55 am * Exam Date Time Procedure Performing Provider Status 03/18/24 5:[address] Abdomen and Pelvis w/ Contrast Edith e, Kelsey E; Auth (Verified) Notes: (CT Abdomen and Pelvis w/ Contrast) Reason For Exam: upper abd pain, n/v CT Abdomen and Pelvis w/ Contrast EXAM DESCRIPTION: CT Abdomen and Pelvis w/ Contrast 03/18/2024 INDICATION: UPPER ABD PAIN, N/V TECHNIQUE: All CT scans at this facility use at least one of these dose optimization techniques: Automated exposure control; mA and/or kV adjustment per patient size (includes targeted exams where dose is matched to clinical indication); or iterative reconstruction. Technique: Axial CT images of the abdomen/pelvis with IV contrast administration 100 cc of Isovue 370 contrast was utilized COMPARISON: None FINDINGS: No focal hepatic lesion. Normal enhancement of the main hepatic veins and main portal vein Normal spleen size without focal mass No calcified gallstones in the gallbladder. Adrenal glands and pancreas appear within normal limits. No focal renal mass, hydronephrosis or perinephric fluid collection on either side. Small nonobstructing bilateral renal calculi are noted. Normal caliber abdominal aorta with scattered atherosclerotic calcifications No retroperitoneal adenopathy in the abdomen or pelvis. No pelvic mass identified No bowel dilatation to suggest obstruction or ileus. No free intraperitoneal air, ascites or inflammatory changes. Normal appendix. No suspicious regional osseous lesions. IMPRESSION: Nonobstructive bowel pattern. No free air or inflammatory changes. Normal appendix. No abdominal/pelvic mass or adenopathy Small nonobstructing bilateral renal calculi. JOB #: [id number] Final Signed by: Kane Carrillo MD Signed (Electronic Signature): 03/18/2024 5:11 pm * Exam Date Time Procedure Performing Provider Status 03/18/24 5:[address] Angio Chest Kelsey Medina; Auth (V erified) Notes: (CT Angio Chest) Reason For Exam: chest pain, ? pe CT Angio Chest EXAM DESCRIPTION: CT Angio Chest N/A INDICATION: CHEST PAIN, ? PE TECHNIQUE: All CT scans at this facility use at least one of these dose optimization techniques: Automated exposure control; mA and/or kV adjustment per patient size (includes targeted exams where dose is matched to clinical indication); or iterative reconstruction. CT angiography examination of the chest with thin section axial images including sagittal and coronal MPR images performed on a separate workstation under concurrent supervision. 100 cc of Isovue 370 contrast was utilized COMPARISON: None FINDINGS: Normal opacification of the right ventricular outflow tract, main pulmonary arteries and segmental pulmonary arteries with no evidence of pulmonary embolism. No evidence of thoracic aortic dissection. No focal infiltrate or pulmonary mass with minimal biapical scarring. No significant emphysematous changes. No central endobronchial filling defect identified No pleural effusion or pneumothorax No mediastinal, hilar or axillary adenopathy. No pericardial effusion. No suspicious regional osseous lesions. IMPRESSION: No evidence of pulmonary embolism. Clear lungs with no focal infiltrate or pulmonary mass. JOB #: [id number] Final Signed by: Kane Carrillo MD Signed (Electronic Signature): 03/18/2024 5:06 pm Vital Signs Most recent to oldest [Reference Range]: 1 2 3 Temperature Temporal Artery [36-38 Deg C] 37.4 Deg C (03/20/24 11:47 AM) 37.4 Deg C (03/20/24 8:00 AM) 37.6 Deg C (03/20/24 4:00 AM) Temperature Temporal Artery (DegF) [97.3-100 Deg F] 99.32 Deg F (03/20/24 11:47 AM) 99.32 Deg F (03/20/24 8:00 AM) 99.68 Deg F (03/20/24 4:00 AM) Peripheral Pulse Rate [60-100 bpm] 94 bpm (03/20/24 1:00 PM) 102 bpm *HI* (03/20/24 12:47 PM) 103 bpm *HI* (03/20/24 12:00 PM) Heart Rate Monitored [60-100 bpm] 94 bpm (03/20/24 1:00 PM) 102 bpm *HI* (03/20/24 12:47 PM) 103 bpm *HI* (03/20/24 12:00 PM) Respiratory Rate [12-24 br/min] 24 br/min (03/20/24 1:00 PM) 18 br/min (03/20/24 12:47 PM) 23 br/min (03/20/24 12:00 PM) Blood Pressure [90-140/60-90 mmHg] 118/59mmHg (03/20/24 1:00 PM) 120/61mmHg (03/20/24 12:47 PM) 97/46mmHg (03/20/24 12:00 PM) Mean Arterial Pressure, Cuff [65-140 mmHg] 79 mmHg (03/20/24 1:00 PM) 81 mmHg (03/20/24 12:47 PM) 63 mmHg *LOW* (03/20/24 12:00 PM) Mean Arterial Pressure Cuff 75 mmHg (03/20/24 1:00 PM) 77 mmHg (03/20/24 12:47 PM) 60 mmHg (03/20/24 12:00 PM) Blood Pressure Location Right arm (03/20/24 8:00 AM) Right leg (03/20/24 6:00 AM) Right arm (03/20/24 5:00 AM) Blood Pressure Method Automatic (03/20/24 8:00 AM) Automatic (03/20/24 6:00 AM) Automatic (03/20/24 5:00 AM) Weight 63 kg (03/20/24 5:17 AM) 63 kg (03/19/24 5:19 AM) 59.42 kg (03/19/24 12:56 AM) Weight Dosing 59.420 kg (03/18/24 3:38 PM) Height 162 cm (03/19/24 12:56 AM) 162 cm (03/18/24 9:28 PM) 162 cm (03/18/24 3:38 PM) BSA Measured 1.64 m2 (03/18/24 9:28 PM) BSA Estimated 0 m2 (03/18/24 9:28 PM) Body Mass Index 22.64 kg/m2 (03/19/24 12:56 AM) 22.64 kg/m2 (03/18/24 9:28 PM) 22.64 kg/m2 (03/18/24 3:38 PM) Social History Social History Type Response Tobacco Tobacco use status u nknown Tobacco Use:. Sex Hospital Discharge Instructions Patient Education 03/20/2024 12:28:42 Diabetes Mellitus Basics Diabetes Mellitus Basics Diabetes mellitus, or diabetes, is a long-term (chronic) disease. It occurs when the body does not properly use sugar (glucose) that is released from food after you eat. Diabetes mellitus may be caused by one or both of these problems: ??? Your pancreas does not make enough of a hormone called insulin. ??? Your body does not react in a normal way to the insulin that it makes. Insulin lets glucose enter cells in your body. This gives you energy. If you have diabetes, glucosecannot get into cells. This causes high blood glucose (hyperglycemia). How to treat and manage diabetes You may need to take insulin or other diabetes medicines daily to keep your glucose in balance. If you are prescribed insulin, you will learn how to give yourself insulin by injection. You may need to adjust the amount of insulin you take based on the foods that you eat. You will need to check your blood glucose levels using a glucose monitor as told by your health care provider. The readings can help determine if you have low or high blood glucose. Generally, you should have these blood glucose levels: ??? Before meals (preprandial): 80???130 mg/dL (4.4???7.2 mmol/L). ??? After meals (postprandial): below 180 mg/dL (10 mmol/L). ??? Hemoglobin A1c (HbA1c) level: less than 7%. Your health care provider will set treatment goals for you. Keep all follow-up visits. This is important. Follow these instructions at home: Diabetes medicines Take your diabetes medicines every day as told by your health care provider. List your diabetes medicines here: ??? Name of medicine: ??? Amount (dose): Time (a.m./p.m.): Notes: ??? Name of medicine: ??? Amount (dose): Time (a.m./p.m.): Notes: ??? Name of medicine: ??? Amount (dose): Time (a.m./p.m.): Notes: Insulin If you use insulin, list the types of insulin you use here: ??? Insulin type: ??? Amount (dose): Time (a.m./p.m.): Notes: ??? Insulin type: ??? Amount (dose): Time (a.m./p.m.): Notes: ??? Insulin type: ??? Amount (dose): Time (a.m./p.m.): Notes: ??? Insulin type: ??? Amount (dose): Time (a.m./p.m.): Notes: ??? Insulin type: ??? Amount (dose): Time (a.m./p.m.): Notes: Managing blood glucose Check your blood glucose levels using a glucose monitor as told by your health care provider. Write down the times that you check your glucose levels here: ??? Time: Notes: ??? Time: Notes: ??? Time: Notes: ??? Time: Notes: ??? Time: Notes: ??? Time: Notes: Low blood glucose Low blood glucose (hypoglycemia) is when glucose is at or below 70 mg/dL (3.9 mmol/L). Symptoms mayinclude: ??? Feeling: ??? Hungry. ??? Sweaty and clammy. ??? Irritable or easily upset. ??? Dizzy. ??? Sleepy. ??? Having: ??? A fast heartbeat. ??? A headache. ??? A change in your vision. ??? Numbness around the mouth, lips, or tongue. ??? Having trouble with: ??? Moving (coordination). ??? Sleeping. Treating low blood glucose To treat low blood glucose, eat or drink something containing sugar right away. If you can think clearly and swallow safely, follow the 15:15 rule: ??? Take 15 grams of a fast-acting carb (carbohydrate), as told by your health care provider. ??? Some fast-acting carbs are: ??? Glucose tablets: take 3???4 tablets. ??? Hard candy: eat 3???5 pieces. ??? Fruit juice: drink 4 oz (120 mL). ??? Regular (not diet) soda: drink 4???6 oz (120???180 mL). ??? Honey or sugar: eat 1 Tbsp (15 mL). ??? Check your blood glucose levels 15 minutes after you take the carb. ??? If your glucose is still at or below 70 mg/dL (3.9 mmol/L), take 15 grams of a carb again. ??? If your glucose does not go above 70 mg/dL (3.9 mmol/L) after 3 tries, get help right away. ??? After your glucose goes back to normal, eat a meal or a snack within 1 hour. Treating very low blood glucose If your glucose is at or below 54 mg/dL (3 mmol/L), you have very low blood glucose (severe hypoglycemia). This is an emergency. Do not wait to see if the symptoms will go away. Get medical help right away.Call your local emergency services (911 in the [place] Do not drive yourself to the hospital. Questions to ask your health care provider ??? Should I talk with a special educator? What equipment will I need to care for myself at home? What diabetes medicines do I need? When should I take them? How often do I need to check my blood glucose levels? What number can I call if I have questions? When is my follow-up visit? Where can I find a support group for people with diabetes? Where to find more information ??? [place] [employer]: www.diabetes.org ??? Association of Diabetes Care and Education Specialists: www.diabeteseducator.org Contact a health care provider if: ??? Your blood glucose is at or above 240 mg/dL (13.3 mmol/L) for 2 days in a row. ??? You have been sick or have had a fever for 2 days or more, and you are not getting better. ??? You have any of these problems for more than 6 hours: ??? You cannot eat or drink. ??? You feel nauseous. ??? You vomit. ??? You have diarrhea. Get help right away if: ??? Your blood glucose is lower than 54 mg/dL (3 mmol/L). ??? You get confused. ??? You have trouble thinking clearly. ??? You have trouble breathing. These symptoms may represent a serious problem that is an emergency. Do not wait to see if the symptoms will go away. Get medical help right away. Call your local emergency services (911 in the [place] Do not drive yourself to the hospital. Summary ??? Diabetes mellitus is a chronic disease that occurs when the body does not properly use sugar (glucose) that is released from food after you eat. ??? Take insulin and diabetes medicines as told. ??? Check your blood glucose every day, as often as told. ??? Keep all follow-up visits. This is important. This information is not intended to replace advice given to you by your health care provider. Make sure you discuss any questions you have with your health care provider. Document Revised: 11/20/2020 Document Reviewed: 11/20/2020 [employer] Patient Education ?? 2022 [email or web address]. 03/20/2024 12:28:35 Diabetes Mellitus and Nutrition, Adult Diabetes Mellitus and Nutrition, Adult When you have diabetes, or diabetes mellitus, it is very important to have healthy eating habits because your blood sugar (glucose) levels are greatly affected by what you eat and drink. Eating healthy foods in the right amounts, at about the same times every day, can help you: ??? Manage your blood glucose. ??? Lower your risk of heart disease. ??? Improve your blood pressure. ??? Reach or maintain a healthy weight. What can affect my meal plan? Every person with diabetes is different, and each person has different needs for a meal plan. Your health care provider may recommend that you work with a dietitian to make a meal plan that is best for you. Your meal plan may vary depending on factors such as: ??? The calories you need. ??? The medicines you take. ??? Your weight. ??? Your blood glucose, blood pressure, and cholesterol levels. ??? Your activity level. ??? Other health conditions you have, such as heart or kidney disease. How do carbohydrates affect me? Carbohydrates, also called carbs, affect your blood glucose level more than any other type of food.Eating carbs raises the amount of glucose in your blood. It is important to know how many carbs you can safely have in each meal. This is different for every person. Your dietitian can help you calculate how many carbs you should have at each meal and for each snack. How does alcohol affect me? Alcohol can cause a decrease in blood glucose (hypoglycemia), especially if you use insulin or takecertain diabetes medicines by mouth. Hypoglycemia can be a life-threatening condition. Symptoms of hypoglycemia, such as sleepiness, dizziness, and confusion, are similar to symptoms of having too much alcohol. ??? Do not drink alcohol if: ??? Your health care provider tells you not to drink. ??? You are , may be , or are planning to become . ??? If you drink alcohol: ??? Limit how much you have to: ??? 0???1 drink a day for women. ??? 0???2 drinks a day for men. ??? Know how much alcohol is in your drink. In the [place] one drink equals one 12 oz bottle of beer (355 mL), one 5 oz glass of wine (148 mL), or one 1?? oz glass of hard liquor (44 mL). ??? Keep yourself hydrated with water, diet soda, or unsweetened iced tea. Keep in mind that regular soda, juice, and other mixers may contain a lot of sugar and must be counted as carbs. What are tips for following this plan? Reading food labels ??? Start by checking the serving size on the Nutrition Facts label of packaged foods and drinks. The number of calories and the amount of carbs, fats, and other nutrients listed on the label are based on one serving of the item. Many items contain more than one serving per package. ??? Check the total grams (g) of carbs in one serving. ??? Check the number of grams of saturated fats and trans fats in one serving. Choose foods that have a low amount or none of these fats. ??? Check the number of milligrams (mg) of salt (sodium) in one serving. Most people should limit total sodium intake to less than 2,300 mg per day. ??? Always check the nutrition information of foods labeled as low-fat or nonfat. These foods may be higher in added sugar or refined carbs and should be avoided. ??? Talk to your dietitian to identify your daily goals for nutrients listed on the label. Shopping ??? Avoid buying canned, pre-made, or processed foods. These foods tend to be high in fat, sodium, and added sugar. ??? Shop around the outside edge of the grocery store. This is where you will most often find freshfruits and vegetables, bulk grains, fresh meats, and fresh dairy products. Cooking ??? Use low-heat cooking methods, such as baking, instead of high-heat cooking methods, such as deep frying. ??? Cook using healthy oils, such as olive, canola, or sunflower oil. ??? Avoid cooking with butter, cream, or high-fat meats. Meal planning ??? Eat meals and snacks regularly, preferably at the same times every day. Avoid going long periods of time without eating. ??? Eat foods that are high in fiber, such as fresh fruits, vegetables, beans, and whole grains. ??? Eat 4???6 oz (112???168 g) of lean protein each day, such as lean meat, chicken, fish, eggs, ortofu. One ounce (oz) (28 g) of lean protein is equal to: ??? 1 oz (28 g) of meat, chicken, or fish. ??? 1 egg. ? cup (62 g) of tofu. ??? Eat some foods each day that contain healthy fats, such as avocado, nuts, seeds, and fish. What foods should I eat? Fruits Berries. Apples. Oranges. Peaches. Apricots. Plums. Grapes. Mangoes. Papayas. Pomegranates. Kiwi. Cherries. Vegetables Leafy greens, including lettuce, spinach, kale, chard, sonia greens, mustard greens, and cabbage.Beets. Cauliflower. Broccoli. Carrots. Green beans. Tomatoes. Peppers. Onions. Cucumbers. [place] sprouts. Grains Whole grains, such as whole-wheat or whole-grain bread, crackers, tortillas, cereal, and pasta. Unsweetened oatmeal. Quinoa. Brown or wild rice. Meats and other proteins Seafood. Poultry without skin. Lean cuts of poultry and beef. Tofu. Nuts. Seeds. Dairy Low-fat or fat-free dairy products such as milk, yogurt, and cheese. The items listed above may not be a complete list of foods and beverages you can eat and drink. Contact a dietitian for more information. What foods should I avoid? Fruits Fruits canned with syrup. Vegetables Canned vegetables. Frozen vegetables with butter or cream sauce. Grains Refined white flour and flour products such as bread, pasta, snack foods, and cereals. Avoid all processed foods. Meats and other proteins Fatty cuts of meat. Poultry with skin. Breaded or fried meats. Processed meat. Avoid saturated fats. Dairy Full-fat yogurt, cheese, or milk. Beverages Sweetened drinks, such as soda or iced tea. The items listed above may not be a complete list of foods and beverages you should avoid. Contact a dietitian for more information. Questions to ask a health care provider ??? Do I need to meet with a certified diabetes care and educational institution president? Do I need to meet with a dietitian? What number can I call if I have questions? When are the best times to check my blood glucose? Where to find more information: ??? [place] [employer]: diabetes.org ??? Academy of Nutrition and Dietetics: eatright.org ??? National [place] of Diabetes and Digestive and Kidney Diseases: niddk.nih.gov ? ? Association of Diabetes Care & Education Specialists: diabeteseducator.org Summary ??? It is important to have healthy eating habits because your blood sugar (glucose) levels are greatly affected by what you eat and drink. It is important to use alcohol carefully. ??? A healthy meal plan will help you manage your blood glucose and lower your risk of heart disease. ??? Your health care provider may recommend that you work with a dietitian to make a meal plan thatis best for you. This information is not intended to replace advice given to you by your health care provider. Make sure you discuss any questions you have with your health care provider. Document Revised: 02/20/2021 Document Reviewed: 02/20/2021 [employer] Patient Education ?? 2022 [employer] 03/20/2024 12:28:33 Carbohydrate Counting for Diabetes Mellitus, Adult Carbohydrate Counting for Diabetes Mellitus, Adult Carbohydrate counting is a method of keeping track of how many carbohydrates you eat. Eating carbohydrates increases the amount of sugar (glucose) in the blood. Counting how many carbohydrates you eat improves how well you manage your blood glucose. This, in turn, helps you manage your diabetes. Carbohydrates are measured in grams (g) per serving. It is important to know how many carbohydrates(in grams or by serving size) you can have in each meal. This is different for every person. A dietitian can help you make a meal plan and calculate how many carbohydrates you should have at each meal and snack. What foods contain carbohydrates? Carbohydrates are found in the following foods: ??? Grains, such as breads and cereals. ??? Dried beans and soy products. ??? Starchy vegetables, such as potatoes, peas, and corn. ??? Fruit and fruit juices. ??? Milk and yogurt. ??? Sweets and snack foods, such as cake, cookies, candy, chips, and soft drinks. How do I count carbohydrates in foods? There are two ways to count carbohydrates in food. You can read food labels or learn standard serving sizes of foods. You can use either of these methods or a combination of both. Using the Nutrition Facts label The Nutrition Facts list is included on the labels of almost all packaged foods and beverages in the [place]. It includes: ??? The serving size. ??? Information about nutrients in each serving, including the grams of carbohydrate per serving. To use the Nutrition Facts, decide how many servings you will have. Then, multiply the number of servings by the number of carbohydrates per serving. The resulting number is the total grams of carbohydrates that you will be having. Learning the standard serving sizes of foods When you eat carbohydrate foods that are not packaged or do not include Nutrition Facts on the label, you need to measure the servings in order to count the grams of carbohydrates. ??? Measure the foods that you will eat with a food scale or measuring cup, if needed. ??? Decide how many standard-size servings you will eat. ??? Multiply the number of servings by 15. For foods that contain carbohydrates, one serving g of carbohydrates. ??? For example, if you eat 2 cups or 10 oz (300 g) of strawberries, you will have eaten 2 servingsand 30 g of carbohydrates (2 servings x 15 g = 30 g). ??? For foods that have more than one food mixed, such as soups and casseroles, you must count the carbohydrates in each food that is included. The following list contains standard serving sizes of common carbohydrate-rich foods. Each of theseservings has about 15 g of carbohydrates: ??? 1 slice of bread. ??? 1 six-inch (15 cm) tortilla. ? cup or 2 oz (53 g) cooked rice or pasta. ? cup or 3 oz (85 g) cooked or canned, drained and rinsed beans or lentils. ? cup or 3 oz (85 g) starchy vegetable, such as peas, corn, or squash. ? cup or 4 oz (120 g) hot cereal. ? cup or 3 oz (85 g) boiled or mashed potatoes, or ?? or 3 oz (85 g) of a large baked potato. ? cup or 4 fl oz (118 mL) fruit juice. ??? 1 cup or 8 fl oz (237 mL) milk. ??? 1 small or 4 oz (106 g) apple. ? or 2 oz (63 g) of a medium banana. ??? 1 cup or 5 oz (150 g) strawberries. ??? 3 cups or 1 oz (28.3 g) popped popcorn. What is an example of carbohydrate counting? To calculate the grams of carbohydrates in this sample meal, follow the steps shown below. Sample meal ??? 3 oz (85 g) chicken breast. ? cup or 4 oz (106 g) brown rice. ? cup or 3 oz (85 g) corn. ??? 1 cup or 8 fl oz (237 mL) milk. ??? 1 cup or 5 oz (150 g) strawberries with sugar-free whipped topping. Carbohydrate calculation 1. Identify the foods that contain carbohydrates: ??? Rice. ??? [place]. ??? Milk. ??? Strawberries. 2. Calculate how many servings you have of each food: ??? 2 servings rice. ??? 1 serving corn. ??? 1 serving milk. ??? 1 serving strawberries. 3. Multiply each number of servings by 15 g: ??? 2 servings rice x 15 g = 30 g. ??? 1 serving corn x 15 g = 15 g. ??? 1 serving milk x 15 g = 15 g. ??? 1 serving strawberries x 15 g = 15 g. 4. Add together all of the amounts to find the total grams of carbohydrates eaten: ??? 30 g + 15 g + 15 g + 15 g = 75 g of carbohydrates total. What are tips for following this plan? Shopping ??? Develop a meal plan and then make a shopping list. ??? Buy fresh and frozen vegetables, fresh and frozen fruit, dairy, eggs, beans, lentils, and wholegrains. ??? Look at food labels. Choose foods that have more fiber and less sugar. ??? Avoid processed foods and foods with added sugars. Meal planning ??? Aim to have the same number of grams of carbohydrates at each meal and for each snack time. ??? Plan to have regular, balanced meals and snacks. Where to find more information ??? [place] Diabetes Association: diabetes.org ??? Centers for Disease Control and Prevention: cdc.gov ??? Academy of Nutrition and Dietetics: eatright.org ? ? Association of Diabetes Care & Education Specialists: diabeteseducator.org Summary ??? Carbohydrate counting is a method of keeping track of how many carbohydrates you eat. ??? Eating carbohydrates increases the amount of sugar (glucose) in your blood. ??? Counting how many carbohydrates you eat improves how well you manage your blood glucose. This helps you manage your diabetes. ??? A dietitian can help you make a meal plan and calculate how many carbohydrates you should have at each meal and snack. This information is not intended to replace advice given to you by your health care provider. Make sure you discuss any questions you have with your health care provider. Document Revised: 02/20/2021 Document Reviewed: 02/20/2021 [employer] Patient Education ?? 2022 [employer] 03/20/2024 12:28:30 Blood Glucose Monitoring, Adult Blood Glucose Monitoring, Adult Monitoring your blood sugar (glucose) is an important part of managing your diabetes. Blood glucosemonitoring involves checking your blood glucose as often as directed and keeping a log or record ofyour results over time. Checking your blood glucose regularly and keeping a blood glucose log can: ??? Help you and your health care provider adjust your diabetes management plan as needed, including your medicines or insulin. ??? Help you understand how food, exercise, illnesses, and medicines affect your blood glucose. ??? Let you know what your blood glucose is at any time. You can quickly find out if you have low blood glucose (hypoglycemia) or high blood glucose (hyperglycemia). Your health care provider will set individualized treatment goals for you. Your goals will be basedon your age, other medical conditions you have, and how you respond to diabetes treatment. Generally, the goal of treatment is to maintain the following blood glucose levels: ??? Before meals (preprandial): 80???130 mg/dL (4.4???7.2 mmol/L). ??? After meals (postprandial): below 180 mg/dL (10 mmol/L). ??? A1C level: less than 7%. Supplies needed: ??? Blood glucose meter. ??? Test strips for your meter. Each meter has its own strips. You must use the strips that came with your meter. ??? A needle to prick your finger (lancet). Do not use a lancet more than one time. ??? A device that holds the lancet (lancing device). ??? A journal or log book to write down your results. How to check your blood glucose Checking your blood glucose 1. Wash your hands for at least 20 seconds with soap and water. 2. Prick the side of your finger (not the tip) with the lancet. Do not use the same finger consecutively. 3. Gently rub the finger until a small drop of blood appears. 4. Follow instructions that come with your meter for inserting the test strip, applying blood to the strip, and using your blood glucose meter. 5. Write down your result and any notes in your log. Using alternative sites Some meters allow you to use areas of your body other than your finger (alternative sites) to test your blood. The most common alternative sites are the forearm, the thigh, and the palm of your hand. Alternative sites may not be as accurate as the fingers because blood flow is slower in those areas. This means that the result you get may be delayed, and it may be different from the result that you would get from your finger. Use the finger only, and do not use alternative sites, if: ??? You think you have hypoglycemia. ??? You sometimes do not know that your blood glucose is getting low (hypoglycemia unawareness). General tips and recommendations Blood glucose log ??? Every time you check your blood glucose, write down your result. Also write down any notes about things that may be affecting your blood glucose, such as your diet and exercise for the day. This information can help you and your health care provider: ??? Look for patterns in your blood glucose over time. ??? Adjust your diabetes management plan as needed. ??? Check if your meter allows you to download your records to a computer or if there is an leo forthe meter. Most glucose meters store a record of glucose readings in the meter. If you have type 1 diabetes: ??? Check your blood glucose 4 or more times a day if you are on intensive insulin therapy with multiple daily injections (MDI) or if you are using an insulin pump. Check your blood glucose: ??? Before every meal and snack. ??? Before bedtime. ??? Also check your blood glucose: ??? If you have symptoms of hypoglycemia. ??? After treating low blood glucose. ??? Before doing activities that create a risk for injury, like driving or using machinery. ??? Before and after exercise. ??? Two hours after a meal. ??? Occasionally between 2:00 a.m. and 3:00 a.m., as directed. ??? You may need to check your blood glucose more often, 6???10 times per day, if: ??? You have diabetes that is not well controlled. ??? You are ill. ??? You have a history of severe hypoglycemia. ??? You have hypoglycemia unawareness. If you have type 2 diabetes: ??? Check your blood glucose 2 or more times a day if you take insulin or other diabetes medicines. ??? Check your blood glucose 4 or more times a day if you are on intensive insulin therapy. Occasionally, you may also need to check your glucose between 2:00 a.m. and 3:00 a.m., as directed. ??? Also check your blood glucose: ??? Before and after exercise. ??? Before doing activities that create a risk for injury, like driving or using machinery. ??? You may need to check your blood glucose more often if: ??? Your medicine is being adjusted. ??? Your diabetes is not well controlled. ??? You are ill. General tips ??? Make sure you always have your supplies with you. ??? After you use a few boxes of test strips, adjust (calibrate) your blood glucose meter by following instructions that came with your meter. ??? If you have questions or need help, all blood glucose meters have a 24-hour hotline phone number available that you can call. Also contact your health care provider with questions or concerns youmay have. Where to find more information ??? The [place] Diabetes Association: www.diabetes.org ? ? The Association of Diabetes Care & Education Specialists: www.diabeteseducator.org Contact a health care provider if: ??? Your blood glucose is at or above 240 mg/dL (13.3 mmol/L) for 2 days in a row. ??? You have been sick or have had a fever for 2 days or longer, and you are not getting better. ??? You have any of the following problems for more than 6 hours: ??? You cannot eat or drink. ??? You have nausea or vomiting. ??? You have diarrhea. Get help right away if: ??? Your blood glucose is lower than 54 mg/dL (3 mmol/L). ??? You become confused, or you have trouble thinking clearly. ??? You have difficulty breathing. ??? You have moderate or large ketone levels in your urine. These symptoms may represent a serious problem that is an emergency. Do not wait to see if the symptoms will go away. Get medical help right away. Call your local emergency services (911 in the [place] Do not drive yourself to the hospital. Summary ??? Monitoring your blood glucose is an important part of managing your diabetes. ??? Blood glucose monitoring involves checking your blood glucose as often as directed and keeping a log or record of your results over time. ??? Your health care provider will set individualized treatment goals for you. Your goals will be based on your age, other medical conditions you have, and how you respond to diabetes treatment. ??? Every time you check your blood glucose, write down your result. Also, write down any notes about things that may be affecting your blood glucose, such as your diet and exercise for the day. This information is not intended to replace advice given to you by your health care provider. Make sure you discuss any questions you have with your health care provider. Document Revised: 02/24/2023 Document Reviewed: 04/17/2021 [employer] Patient Education ?? 2022 [employer] 03/20/2024 12:28:19 Diabetic Ketoacidosis Diabetic Ketoacidosis Diabetic ketoacidosis (DKA) is a serious complication of diabetes. This condition develops when there is not enough insulin in the body. Insulin is a hormone that regulates blood sugar (glucose) levels in the body. Normally, insulin allows glucose to enter the cells in the body. The cells break down glucose for energy. Without enough insulin, the body cannot break down glucose and breaks down fats instead. This leads to high blood glucose levels in the body. It also leads to the production of acids that are called ketones. Ketones are poisonous at high levels. If DKA is not treated, it can cause severe dehydration and can lead to a coma or . What are the causes? This condition develops when a lack of insulin causes the body to break down fats instead of glucose. This may be triggered by: ??? Stress on the body. This stress can be brought on by an illness. ??? Infection. ??? Medicines that raise blood glucose levels. ??? Not taking or skipping doses of diabetes medicines. ??? New onset of type 1 diabetes mellitus. ??? Missing insulin on purpose or by accident. ??? Interruption of insulin through an insulin pump. This can happen if the cannula that connects you to the insulin pump gets dislodged or kinked. What are the signs or symptoms? Symptoms of this condition include: ??? Early symptoms may include: ??? Excessive thirst or dry mouth or excessive urination. ??? More severe symptoms may include: ??? Abdominal pain, nausea, or vomiting. ??? Vision changes. ??? Fruity or sweet-smelling breath. ??? Irritability or confusion. ??? Rapid breathing. Signs shown by testing include: ??? High blood glucose. ??? High levels of ketones in the body. How is this diagnosed? This condition is diagnosed based on your medical history, a physical exam, and blood tests. You may also have a urine test to check for ketones. How is this treated? This condition may be treated with: ??? Fluid replacement. This may be done with IV fluids to correct dehydration. ??? Correcting high blood glucose with insulin. This may be given through the skin as injections orthrough an IV. ??? Electrolyte replacement. Electrolytes are minerals in your blood. Electrolytes such as potassium and sodium may be given in pill form or through an IV. ??? Antibiotic medicines. These may be prescribed if your condition was caused by an infection. DKA is a serious medical condition. You may need emergency treatment in the hospital so that you can be monitored closely. Follow these instructions at home: Medicines ??? Take gxfw-yvl-lioaokv and prescription medicines only as told by your health care provider. ??? Continue to take insulin and other diabetes medicines as told by your health care provider. ??? If you were prescribed an antibiotic medicine, take it as told by your health care provider. Donot stop using the antibiotic even if you start to feel better. Eating and drinking ??? Drink enough fluid to keep your urine pale yellow. ??? If you are able to eat, follow your usual diet and drink sugar-free liquids, such as water, tea, and sugar-free soft drinks. You can also have sugar-free gelatin or ice pops. ??? If you are not able to eat, drink liquids that contain sugar in small amounts as you are able. Liquids include fruit juice, regular soft drinks, and sherbet. Checking ketones and blood glucose ??? Check your urine for ketones when you are ill and as told by your health care provider. ??? If your blood glucose is 240 mg/dL (13.3 mmol/L) or higher, check your urine ketones every 4 hours. If you have moderate or large ketones, call your health care provider. ??? To check your ketone levels follow these steps: ??? Collect urine in a small cup. ??? Dip a test strip in the urine. ??? Wait for it to change color. ??? Compare the strip to the color chart that comes with the test kit. ??? Check your blood glucose every day, and as often as told by your health care provider. ??? If your blood glucose is high, drink plenty of fluids. This helps flush out ketones. ??? If your blood glucose is above your target for two tests in a row, contact your health care provider. General instructions ??? Carry a medical alert card or wear medical alert jewelry that shows that you have diabetes. ??? Do exercises as told by your health care provider. Do not exercise when your blood glucose is high and you have ketones in your urine. ??? If you get sick, call your health care provider and begin treatment quickly. Your body often needs extra insulin to fight an illness. Check your blood glucose every 4 hours when you are sick. ??? Keep all follow-up visits. This is important. Where to find more information For more information, guidance, and advice, look online here: ??? [place] Diabetes Association: diabetes.org ? ? Association of Diabetes Care & Education Specialists: diabeteseducator.org Contact a health care provider if: ??? Your blood glucose level is higher than 240 mg/dL (13.3 mmol/L) for 2 days in a row. ??? You have moderate or large ketones in your urine. ??? You have a fever. ??? You cannot eat or drink without vomiting. ??? You have been vomiting for more than 2 hours. ??? You continue to have symptoms of DKA. ??? You develop new symptoms. Get help right away if: ??? Your blood glucose monitor reads high even when you are taking insulin. ??? You faint. ??? You have chest pain or you have trouble breathing. ??? You have sudden trouble speaking or swallowing. ??? You have vomiting or diarrhea that gets worse after 3 hours. ??? You are unable to stay awake or you have trouble thinking. ??? You are severely dehydrated. Symptoms of severe dehydration include: ??? Extreme thirst. ??? Dry mouth. ??? Rapid breathing. These symptoms may represent a serious problem that is an emergency. Do not wait to see if the symptoms will go away. Get medical help right away. Call your local emergency services (911 in the [place] Do not drive yourself to the hospital. Summary ??? DKA is a serious complication of diabetes. This condition develops when there is not enough insulin in the body. ??? This condition is diagnosed based on your medical history, a physical exam, and blood tests. You may also have a urine test to check for ketones. ??? DKA is a serious medical condition. You may need emergency treatment in the hospital to monitoryour condition. ??? Contact your health care provider if your blood glucose is higher than 240 mg/dL for 2 days in a row or if you have moderate or large ketones in your urine. This information is not intended to replace advice given to you by your health care provider. Make sure you discuss any questions you have with your health care provider. Document Revised: 07/30/2021 Document Reviewed: 05/22/2021 [employer] Patient Education ?? 2022 [email or web address]. Follow Up Care 03/18/2024 15:17:04 With:health promotion educator Address: When:1 to 2 weeks Comments:Please schedule with??Annelise??Jerome With:Follow up with primary care provider Address: When:1 week Discharge instructions * Mariangel Dia RN: PERFORM Event Display: Discharge Instructions Authored Date: [id number] AFUA ROSALES :1975 Age:48 years Sex:Female Visit Date:03/18/2024 Hospital Discharge Instructions We would like to thank you for allowing us to assist you with your healthcare needs. The following includes patient education materials and information regarding your injury/illness. Your Next Steps Follow Up Appointments Follow Up with??health promotion educator When:??Within 1 to 2 weeks Why: Please schedule with??Annelise??Jerome Follow Up with??Follow up with primary care provider When:??Within 1 week Medications What How Much When Instructions Next Dose Changed insulin aspart (Fiasp FlexTouch 100 units/ mL injectable solution) Subcutaneous (under the skin) 3 times a day before meals sliding scale ?? Changed metoprolol (metoprolol succinate 25 mg oral capsule, extended release) 0.5 Capsules Oral (given by mouth) Every day Duration: 30 Days Pickup at [facility] Unchanged aspirin (Aspirin Low Dose 81 mg oral tablet, chewable) 1 tab Chewed Every day Unchanged atorvastatin (atorvastatin 80 mg oral tablet) 1 tab Oral (given by mouth) Every day Unchanged empagliflozin (Jardiance 10 mg oral tablet) 1 tab Oral (given by mouth) Every morning Unchanged insulin glargine (Basaglar KwikPen 100 units/ mL subcutaneous solution) 20 Units Subcutaneous (under the skin) Every day Unchanged magnesium oxide (magnesium oxide 400 mg (241.3 mg elemental magnesium) oral tablet) 1 tab Oral (given by mouth) Every day Unchanged multivitamin (Tab-A-Aaron oral tablet) 1 tab Oral (given by mouth) Every day Pharmacy Information [id number]: [id number] [place] [id number] [phone] Your Summary Your Care Team Admitting Physician - Willis Muro MD Attending Physician - Willis Muro MD Your Diagnosis Hyperglycemia H/O insulin dependent diabetes mellitus Fluid deficit Nausea and vomiting Pain in the abdomen AMS (altered mental status) CAD in [place] artery Leukocytosis Problems Ongoing - Any problem that you are currently receiving treatment for. H/O insulin dependent diabetes mellitus Tests Performed/Pending .Manual Differential (LTTL) Alcohol Lvl Automated Diff Beta Hydroxybutyrate Blood Culture?-- Results Pending -- Blood Gas Arterial Blood Gas Venous BMP BMP CBC w/ Diff CMP Creatinine Urine Drug Screen Urine Free T4 Glucose POCT Hemoglobin A1C High SensitivityTroponin-I Lactic Acid Lipase Level Magnesium Level MRSA/MSSA Nasal (GeneXpert) Phosphorus Level Respiratory Panel 2.1 (BioFire) Sodium Level Urine T3 Free?-- Results Pending -- T3 Total?-- Results Pending -- Thyrotropin Receptor Ab, Serum LC?-- Results Pending -- TSH w/ Rflx to Free T4 Urinalysis with Micro if Indicated and Culture if Indicated Vitamin B12 & Folate Level CT Abdomen and Pelvis w/ Contrast CT Angio Chest CT Head w/o Contrast XR Chest 1 View Discharge Vitals Temperature??(Temporal Artery) 99.3 ??F (37.4 ??C) Heart Rate??(Peripheral) 94 Heart Rate??(Monitored) 94 Respiratory Rate?? 24 Blood Pressure?? 118/59?? SpO2?? 100% Weight?? 138.92 lb (63 kg) Allergies No Known Medication Allergies Education Materials Diabetes Mellitus Basics Diabetes mellitus, or diabetes, is a long-term (chronic) disease. It occurs when the body does not properly use sugar (glucose) that is released from food after you eat. Diabetes mellitus may be caused by one or both of these problems: ? Your pancreas does not make enough of a hormone called insulin. ? Your body does not react in a normal way to the insulin that it makes. Insulin lets glucose enter cells in your body. This gives you energy. If you have diabetes, glucosecannot get into cells. This causes high blood glucose (hyperglycemia). How to treat and manage diabetes You may need to take insulin or other diabetes medicines daily to keep your glucose in balance. If you are prescribed insulin, you will learn how to give yourself insulin by injection. You may need to adjust the amount of insulin you take based on the foods that you eat. You will need to check your blood glucose levels using a glucose monitor as told by your health care provider. The readings can help determine if you have low or high blood glucose. Generally, you should have these blood glucose levels: ? Before meals (preprandial): 80???130 mg/dL (4.4???7.2 mmol/L). ? After meals (postprandial): below 180 mg/dL (10 mmol/L). ? Hemoglobin A1c (HbA1c) level: less than 7%. Your health care provider will set treatment goals for you. Keep all follow-up visits. This is important. Follow these instructions at home: Diabetes medicines Take your diabetes medicines every day as told by your health care provider. List your diabetes medicines here: ? Name of medicine: ? Amount (dose): Time (a.m./p.m.): Notes: ? Name of medicine: ? Amount (dose): Time (a.m./p.m.): Notes: ? Name of medicine: ? Amount (dose): Time (a.m./p.m.): Notes: Insulin If you use insulin, list the types of insulin you use here: ? Insulin type: ? Amount (dose): Time (a.m./p.m.): Notes: ? Insulin type: ? Amount (dose): Time (a.m./p.m.): Notes: ? Insulin type: ? Amount (dose): Time (a.m./p.m.): Notes: ? Insulin type: ? Amount (dose): Time (a.m./p.m.): Notes: ? Insulin type: ? Amount (dose): Time (a.m./p.m.): Notes: Managing blood glucose Check your blood glucose levels using a glucose monitor as told by your health care provider. Write down the times that you check your glucose levels here: ? Time: Notes: ? Time: Notes: ? Time: Notes: ? Time: Notes: ? Time: Notes: ? Time: Notes: Low blood glucose Low blood glucose (hypoglycemia) is when glucose is at or below 70 mg/dL (3.9 mmol/L). Symptoms mayinclude: ? Feeling: ? Hungry. ? Sweaty and clammy. ? Irritable or easily upset. ? Dizzy. ? Sleepy. ? Having: ? A fast heartbeat. ? A headache. ? A change in your vision. ? Numbness around the mouth, lips, or tongue. ? Having trouble with: ? Moving (coordination). ? Sleeping. Treating low blood glucose To treat low blood glucose, eat or drink something containing sugar right away. If you can think clearly and swallow safely, follow the 15:15 rule: ? Take 15 grams of a fast-acting carb (carbohydrate), as told by your health care provider. ? Some fast-acting carbs are: ? Glucose tablets: take 3???4 tablets. ? Hard candy: eat 3???5 pieces. ? Fruit juice: drink 4 oz (120 mL). ? Regular (not diet) soda: drink 4???6 oz (120???180 mL). ? Honey or sugar: eat 1 Tbsp (15 mL). ? Check your blood glucose levels 15 minutes after you take the carb. ? If your glucose is still at or below 70 mg/dL (3.9 mmol/L), take 15 grams of a carb again. ? If your glucose does not go above 70 mg/dL (3.9 mmol/L) after 3 tries, get help right away. ? After your glucose goes back to normal, eat a meal or a snack within 1 hour. Treating very low blood glucose If your glucose is at or below 54 mg/dL (3 mmol/L), you have very low blood glucose (severe hypoglycemia). This is an emergency. Do not wait to see if the symptoms will go away. Get medical help right away.Call your local emergency services (911 in the [place] Do not drive yourself to the hospital. Questions to ask your health care provider ? Should I talk with a special educator? What equipment will I need to care for myself at home? What diabetes medicines do I need? When should I take them? How often do I need to check my blood glucose levels? What number can I call if I have questions? When is my follow-up visit? Where can I find a support group for people with diabetes? Where to find more information ? [place] Diabetes Association: www.diabetes.org ? Association of Diabetes Care and Education Specialists: www.diabeteseducator.org Contact a health care provider if: ? Your blood glucose is at or above 240 mg/dL (13.3 mmol/L) for 2 days in a row. ? You have been sick or have had a fever for 2 days or more, and you are not getting better. ? You have any of these problems for more than 6 hours: ? You cannot eat or drink. ? You feel nauseous. ? You vomit. ? You have diarrhea. Get help right away if: ? Your blood glucose is lower than 54 mg/dL (3 mmol/L). ? You get confused. ? You have trouble thinking clearly. ? You have trouble breathing. These symptoms may represent a serious problem that is an emergency. Do not wait to see if the symptoms will go away. Get medical help right away. Call your local emergency services (911 in the [place] Do not drive yourself to the hospital. Summary ? Diabetes mellitus is a chronic disease that occurs when the body does not properly use sugar (glucose) that is released from food after you eat. ? Take insulin and diabetes medicines as told. ? Check your blood glucose every day, as often as told. ? Keep all follow-up visits. This is important. This information is not intended to replace advice given to you by your health care provider. Make sure you discuss any questions you have with your health care provider. Document Revised: 11/20/2020 Document Reviewed: 11/20/2020 Elsevier Patient Education ?? 2022 [employer] Diabetes Mellitus and Nutrition, Adult When you have diabetes, or diabetes mellitus, it is very important to have healthy eating habits because your blood sugar (glucose) levels are greatly affected by what you eat and drink. Eating healthy foods in the right amounts, at about the same times every day, can help you: ? Manage your blood glucose. ? Lower your risk of heart disease. ? Improve your blood pressure. ? Reach or maintain a healthy weight. What can affect my meal plan? Every person with diabetes is different, and each person has different needs for a meal plan. Your health care provider may recommend that you work with a dietitian to make a meal plan that is best for you. Your meal plan may vary depending on factors such as: ? The calories you need. ? The medicines you take. ? Your weight. ? Your blood glucose, blood pressure, and cholesterol levels. ? Your activity level. ? Other health conditions you have, such as heart or kidney disease. How do carbohydrates affect me? Carbohydrates, also called carbs, affect your blood glucose level more than any other type of food.Eating carbs raises the amount of glucose in your blood. It is important to know how many carbs you can safely have in each meal. This is different for every person. Your dietitian can help you calculate how many carbs you should have at each meal and for each snack. How does alcohol affect me? Alcohol can cause a decrease in blood glucose (hypoglycemia), especially if you use insulin or takecertain diabetes medicines by mouth. Hypoglycemia can be a life-threatening condition. Symptoms of hypoglycemia, such as sleepiness, dizziness, and confusion, are similar to symptoms of having too much alcohol. ? Do not drink alcohol if: ? Your health care provider tells you not to drink. ? You are , may be , or are planning to become . ? If you drink alcohol: ? Limit how much you have to: ? 0???1 drink a day for women. ? 0???2 drinks a day for men. ? Know how much alcohol is in your drink. In the [place] one drink equals one 12 oz bottle of beer (355mL), one 5 oz glass of wine (148 mL), or one 1?? oz glass of hard liquor (44 mL). ? Keep yourself hydrated with water, diet soda, or unsweetened iced tea. Keep in mind that regular soda, juice, and other mixers may contain a lot of sugar and must be counted as carbs. What are tips for following this plan? Reading food labels ? Start by checking the serving size on the Nutrition Facts label of packaged foods and drinks. The number of calories and the amount of carbs, fats, and other nutrients listed on the label are based on one serving of the item. Many items contain more than one serving per package. ? Check the total grams (g) of carbs in one serving. ? Check the number of grams of saturated fats and trans fats in one serving. Choose foods that have alow amount or none of these fats. ? Check the number of milligrams (mg) of salt (sodium) in one serving. Most people should limit totalsodium intake to less than 2,300 mg per day. ? Always check the nutrition information of foods labeled as low-fat or nonfat. These foods may be higher in added sugar or refined carbs and should be avoided. ? Talk to your dietitian to identify your daily goals for nutrients listed on the label. Shopping ? Avoid buying canned, pre-made, or processed foods. These foods tend to be high in fat, sodium, and added sugar. ? Shop around the outside edge of the grocery store. This is where you will most often find fresh fruits and vegetables, bulk grains, fresh meats, and fresh dairy products. Cooking ? Use low-heat cooking methods, such as baking, instead of high-heat cooking methods, such as deep frying. ? Cook using healthy oils, such as olive, canola, or sunflower oil. ? Avoid cooking with butter, cream, or high-fat meats. Meal planning ? Eat meals and snacks regularly, preferably at the same times every day. Avoid going long periods oftime without eating. ? Eat foods that are high in fiber, such as fresh fruits, vegetables, beans, and whole grains. ? Eat 4???6 oz (112???168 g) of lean protein each day, such as lean meat, chicken, fish, eggs, or tofu. One ounce (oz) (28 g) of lean protein is equal to: ? 1 oz (28 g) of meat, chicken, or fish. ? 1 egg. ? cup (62 g) of tofu. ? Eat some foods each day that contain healthy fats, such as avocado, nuts, seeds, and fish. What foods should I eat? Fruits Berries. Apples. Oranges. Peaches. Apricots. Plums. Grapes. Mangoes. Papayas. Pomegranates. Kiwi. Cherries. Vegetables Leafy greens, including lettuce, spinach, kale, chard, sonia greens, mustard greens, and cabbage.Beets. Cauliflower. Broccoli. Carrots. Green beans. Tomatoes. Peppers. Onions. Cucumbers. [place] sprouts. Grains Whole grains, such as whole-wheat or whole-grain bread, crackers, tortillas, cereal, and pasta. Unsweetened oatmeal. Quinoa. Brown or wild rice. Meats and other proteins Seafood. Poultry without skin. Lean cuts of poultry and beef. Tofu. Nuts. Seeds. Dairy Low-fat or fat-free dairy products such as milk, yogurt, and cheese. The items listed above may not be a complete list of foods and beverages you can eat and drink. Contact a dietitian for more information. What foods should I avoid? Fruits Fruits canned with syrup. Vegetables Canned vegetables. Frozen vegetables with butter or cream sauce. Grains Refined white flour and flour products such as bread, pasta, snack foods, and cereals. Avoid all processed foods. Meats and other proteins Fatty cuts of meat. Poultry with skin. Breaded or fried meats. Processed meat. Avoid saturated fats. Dairy Full-fat yogurt, cheese, or milk. Beverages Sweetened drinks, such as soda or iced tea. The items listed above may not be a complete list of foods and beverages you should avoid. Contact a dietitian for more information. Questions to ask a health care provider ? Do I need to meet with a certified diabetes care and educational institution president? Do I need to meet with a dietitian? What number can I call if I have questions? When are the best times to check my blood glucose? Where to find more information: ? [place] Diabetes Association: diabetes.org ? Academy of Nutrition and Dietetics: eatright.org ? National [place] of Diabetes and Digestive and Kidney Diseases: niddk.nih.gov ? Association of Diabetes Care & Education Specialists: diabeteseducator.org Summary ? It is important to have healthy eating habits because your blood sugar (glucose) levels are greatlyaffected by what you eat and drink. It is important to use alcohol carefully. ? A healthy meal plan will help you manage your blood glucose and lower your risk of heart disease. ? Your health care provider may recommend that you work with a dietitian to make a meal plan that is best for you. This information is not intended to replace advice given to you by your health care provider. Make sure you discuss any questions you have with your health care provider. Document Revised: 02/20/2021 Document Reviewed: 02/20/2021 [employer] Patient Education ?? 2022 [employer] Carbohydrate Counting for Diabetes Mellitus, Adult Carbohydrate counting is a method of keeping track of how many carbohydrates you eat. Eating carbohydrates increases the amount of sugar (glucose) in the blood. Counting how many carbohydrates you eat improves how well you manage your blood glucose. This, in turn, helps you manage your diabetes. Carbohydrates are measured in grams (g) per serving. It is important to know how many carbohydrates(in grams or by serving size) you can have in each meal. This is different for every person. A dietitian can help you make a meal plan and calculate how many carbohydrates you should have at each meal and snack. What foods contain carbohydrates? Carbohydrates are found in the following foods: ? Grains, such as breads and cereals. ? Dried beans and soy products. ? Starchy vegetables, such as potatoes, peas, and corn. ? Fruit and fruit juices. ? Milk and yogurt. ? Sweets and snack foods, such as cake, cookies, candy, chips, and soft drinks. How do I count carbohydrates in foods? There are two ways to count carbohydrates in food. You can read food labels or learn standard serving sizes of foods. You can use either of these methods or a combination of both. Using the Nutrition Facts label The Nutrition Facts list is included on the labels of almost all packaged foods and beverages in the [place]. It includes: ? The serving size. ? Information about nutrients in each serving, including the grams of carbohydrate per serving. To use the Nutrition Facts, decide how many servings you will have. Then, multiply the number of servings by the number of carbohydrates per serving. The resulting number is the total grams of carbohydrates that you will be having. Learning the standard serving sizes of foods When you eat carbohydrate foods that are not packaged or do not include Nutrition Facts on the label, you need to measure the servings in order to count the grams of carbohydrates. ? Measure the foods that you will eat with a food scale or measuring cup, if needed. ? Decide how many standard-size servings you will eat. ? Multiply the number of servings by 15. For foods that contain carbohydrates, one serving equals 15 g of carbohydrates. ? For example, if you eat 2 cups or 10 oz (300 g) of strawberries, you will have eaten 2 servings and30 g of carbohydrates (2 servings x 15 g = 30 g). ? For foods that have more than one food mixed, such as soups and casseroles, you must count the carbohydrates in each food that is included. The following list contains standard serving sizes of common carbohydrate-rich foods. Each of theseservings has about 15 g of carbohydrates: ? 1 slice of bread. ? 1 six-inch (15 cm) tortilla. ? cup or 2 oz (53 g) cooked rice or pasta. ? cup or 3 oz (85 g) cooked or canned, drained and rinsed beans or lentils. ? cup or 3 oz (85 g) starchy vegetable, such as peas, corn, or squash. ? cup or 4 oz (120 g) hot cereal. ? cup or 3 oz (85 g) boiled or mashed potatoes, or ?? or 3 oz (85 g) of a large baked potato. ? cup or 4 fl oz (118 mL) fruit juice. ? 1 cup or 8 fl oz (237 mL) milk. ? 1 small or 4 oz (106 g) apple. ? or 2 oz (63 g) of a medium banana. ? 1 cup or 5 oz (150 g) strawberries. ? 3 cups or 1 oz (28.3 g) popped popcorn. What is an example of carbohydrate counting? To calculate the grams of carbohydrates in this sample meal, follow the steps shown below. Sample meal ? 3 oz (85 g) chicken breast. ? cup or 4 oz (106 g) brown rice. ? cup or 3 oz (85 g) corn. ? 1 cup or 8 fl oz (237 mL) milk. ? 1 cup or 5 oz (150 g) strawberries with sugar-free whipped topping. Carbohydrate calculation 1.?? Identify the foods that contain carbohydrates: ? Rice. ? [place]. ? Milk. ? Strawberries. 2.?? Calculate how many servings you have of each food: ? 2 servings rice. ? 1 serving corn. ? 1 serving milk. ? 1 serving strawberries. 3.?? Multiply each number of servings by 15 g: ? 2 servings rice x 15 g = 30 g. ? 1 serving corn x 15 g = 15 g. ? 1 serving milk x 15 g = 15 g. ? 1 serving strawberries x 15 g = 15 g. 4.?? Add together all of the amounts to find the total grams of carbohydrates eaten: ? 30 g + 15 g + 15 g + 15 g = 75 g of carbohydrates total. What are tips for following this plan? Shopping ? Develop a meal plan and then make a shopping list. ? Buy fresh and frozen vegetables, fresh and frozen fruit, dairy, eggs, beans, lentils, and whole grains. ? Look at food labels. Choose foods that have more fiber and less sugar. ? Avoid processed foods and foods with added sugars. Meal planning ? Aim to have the same number of grams of carbohydrates at each meal and for each snack time. ? Plan to have regular, balanced meals and snacks. Where to find more information ? [place] Diabetes Association: diabetes.org ? Centers for Disease Control and Prevention: cdc.gov ? Academy of Nutrition and Dietetics: eatright.org ? Association of Diabetes Care & Education Specialists: diabeteseducator.org Summary ? Carbohydrate counting is a method of keeping track of how many carbohydrates you eat. ? Eating carbohydrates increases the amount of sugar (glucose) in your blood. ? Counting how many carbohydrates you eat improves how well you manage your blood glucose. This helpsyou manage your diabetes. ? A dietitian can help you make a meal plan and calculate how many carbohydrates you should have at each meal and snack. This information is not intended to replace advice given to you by your health care provider. Make sure you discuss any questions you have with your health care provider. Document Revised: 02/20/2021 Document Reviewed: 02/20/2021 [employer] Patient Education ?? 2022 [employer] Blood Glucose Monitoring, Adult Monitoring your blood sugar (glucose) is an important part of managing your diabetes. Blood glucosemonitoring involves checking your blood glucose as often as directed and keeping a log or record ofyour results over time. Checking your blood glucose regularly and keeping a blood glucose log can: ? Help you and your health care provider adjust your diabetes management plan as needed, including your medicines or insulin. ? Help you understand how food, exercise, illnesses, and medicines affect your blood glucose. ? Let you know what your blood glucose is at any time. You can quickly find out if you have low bloodglucose (hypoglycemia) or high blood glucose (hyperglycemia). Your health care provider will set individualized treatment goals for you. Your goals will be basedon your age, other medical conditions you have, and how you respond to diabetes treatment. Generally, the goal of treatment is to maintain the following blood glucose levels: ? Before meals (preprandial): 80???130 mg/dL (4.4???7.2 mmol/L). ? After meals (postprandial): below 180 mg/dL (10 mmol/L). ? A1C level: less than 7%. Supplies needed: ? Blood glucose meter. ? Test strips for your meter. Each meter has its own strips. You must use the strips that came with your meter. ? A needle to prick your finger (lancet). Do not use a lancet more than one time. ? A device that holds the lancet (lancing device). ? A journal or log book to write down your results. How to check your blood glucose Checking your blood glucose 1.?? Wash your hands for at least 20 seconds with soap and water. 2.?? Prick the side of your finger (not the tip) with the lancet. Do not use the same finger consecutively. 3.?? Gently rub the finger until a small drop of blood appears. 4.?? Follow instructions that come with your meter for inserting the test strip, applying blood to the strip, and using your blood glucose meter. 5.?? Write down your result and any notes in your log. Using alternative sites Some meters allow you to use areas of your body other than your finger (alternative sites) to test your blood. The most common alternative sites are the forearm, the thigh, and the palm of your hand. Alternative sites may not be as accurate as the fingers because blood flow is slower in those areas. This means that the result you get may be delayed, and it may be different from the result that you would get from your finger. Use the finger only, and do not use alternative sites, if: ? You think you have hypoglycemia. ? You sometimes do not know that your blood glucose is getting low (hypoglycemia unawareness). General tips and recommendations Blood glucose log ? Every time you check your blood glucose, write down your result. Also write down any notes about things that may be affecting your blood glucose, such as your diet and exercise for the day. This information can help you and your health care provider: ? Look for patterns in your blood glucose over time. ? Adjust your diabetes management plan as needed. ? Check if your meter allows you to download your records to a computer or if there is an leo for [employer] Most glucose meters store a record of glucose readings in the meter. If you have type 1 diabetes: ? Check your blood glucose 4 or more times a day if you are on intensive insulin therapy with multiple daily injections (MDI) or if you are using an insulin pump. Check your blood glucose: ? Before every meal and snack. ? Before bedtime. ? Also check your blood glucose: ? If you have symptoms of hypoglycemia. ? After treating low blood glucose. ? Before doing activities that create a risk for injury, like driving or using machinery. ? Before and after exercise. ? Two hours after a meal. ? Occasionally between 2:00 a.m. and 3:00 a.m., as directed. ? You may need to check your blood glucose more often, 6???10 times per day, if: ? You have diabetes that is not well controlled. ? You are ill. ? You have a history of severe hypoglycemia. ? You have hypoglycemia unawareness. If you have type 2 diabetes: ? Check your blood glucose 2 or more times a day if you take insulin or other diabetes medicines. ? Check your blood glucose 4 or more times a day if you are on intensive insulin therapy. Occasionally, you may also need to check your glucose between 2:00 a.m. and 3:00 a.m., as directed. ? Also check your blood glucose: ? Before and after exercise. ? Before doing activities that create a risk for injury, like driving or using machinery. ? You may need to check your blood glucose more often if: ? Your medicine is being adjusted. ? Your diabetes is not well controlled. ? You are ill. General tips ? Make sure you always have your supplies with you. ? After you use a few boxes of test strips, adjust (calibrate) your blood glucose meter by following instructions that came with your meter. ? If you have questions or need help, all blood glucose meters have a 24-hour hotline phone number available that you can call. Also contact your health care provider with questions or concerns you mayhave. Where to find more information ? The [place] Diabetes Association: www.diabetes.org ? The Association of Diabetes Care & Education Specialists: www.diabeteseducator.org Contact a health care provider if: ? Your blood glucose is at or above 240 mg/dL (13.3 mmol/L) for 2 days in a row. ? You have been sick or have had a fever for 2 days or longer, and you are not getting better. ? You have any of the following problems for more than 6 hours: ? You cannot eat or drink. ? You have nausea or vomiting. ? You have diarrhea. Get help right away if: ? Your blood glucose is lower than 54 mg/dL (3 mmol/L). ? You become confused, or you have trouble thinking clearly. ? You have difficulty breathing. ? You have moderate or large ketone levels in your urine. These symptoms may represent a serious problem that is an emergency. Do not wait to see if the symptoms will go away. Get medical help right away. Call your local emergency services (911 in the [place] Do not drive yourself to the hospital. Summary ? Monitoring your blood glucose is an important part of managing your diabetes. ? Blood glucose monitoring involves checking your blood glucose as often as directed and keeping a log or record of your results over time. ? Your health care provider will set individualized treatment goals for you. Your goals will be basedon your age, other medical conditions you have, and how you respond to diabetes treatment. ? Every time you check your blood glucose, write down your result. Also, write down any notes about things that may be affecting your blood glucose, such as your diet and exercise for the day. This information is not intended to replace advice given to you by your health care provider. Make sure you discuss any questions you have with your health care provider. Document Revised: 02/24/2023 Document Reviewed: 04/17/2021 [employer] Patient Education ?? 2022 [employer] Diabetic Ketoacidosis Diabetic ketoacidosis (DKA) is a serious complication of diabetes. This condition develops when there is not enough insulin in the body. Insulin is a hormone that regulates blood sugar (glucose) levels in the body. Normally, insulin allows glucose to enter the cells in the body. The cells break down glucose for energy. Without enough insulin, the body cannot break down glucose and breaks down fats instead. This leads to high blood glucose levels in the body. It also leads to the production of acids that are called ketones. Ketones are poisonous at high levels. If DKA is not treated, it can cause severe dehydration and can lead to a coma or . What are the causes? This condition develops when a lack of insulin causes the body to break down fats instead of glucose. This may be triggered by: ? Stress on the body. This stress can be brought on by an illness. ? Infection. ? Medicines that raise blood glucose levels. ? Not taking or skipping doses of diabetes medicines. ? New onset of type 1 diabetes mellitus. ? Missing insulin on purpose or by accident. ? Interruption of insulin through an insulin pump. This can happen if the cannula that connects you to the insulin pump gets dislodged or kinked. What are the signs or symptoms? Symptoms of this condition include: ? Early symptoms may include: ? Excessive thirst or dry mouth or excessive urination. ? More severe symptoms may include: ? Abdominal pain, nausea, or vomiting. ? Vision changes. ? Fruity or sweet-smelling breath. ? Irritability or confusion. ? Rapid breathing. Signs shown by testing include: ? High blood glucose. ? High levels of ketones in the body. How is this diagnosed? This condition is diagnosed based on your medical history, a physical exam, and blood tests. You may also have a urine test to check for ketones. How is this treated? This condition may be treated with: ? Fluid replacement. This may be done with IV fluids to correct dehydration. ? Correcting high blood glucose with insulin. This may be given through the skin as injections or through an IV. ? Electrolyte replacement. Electrolytes are minerals in your blood. Electrolytes such as potassium and sodium may be given in pill form or through an IV. ? Antibiotic medicines. These may be prescribed if your condition was caused by an infection. DKA is a serious medical condition. You may need emergency treatment in the hospital so that you can be monitored closely. Follow these instructions at home: Medicines ? Take goep-rja-ytolcnj and prescription medicines only as told by your health care provider. ? Continue to take insulin and other diabetes medicines as told by your health care provider. ? If you were prescribed an antibiotic medicine, take it as told by your health care provider. Do notstop using the antibiotic even if you start to feel better. Eating and drinking ? Drink enough fluid to keep your urine pale yellow. ? If you are able to eat, follow your usual diet and drink sugar-free liquids, such as water, tea, and sugar-free soft drinks. You can also have sugar-free gelatin or ice pops. ? If you are not able to eat, drink liquids that contain sugar in small amounts as you are able. Liquids include fruit juice, regular soft drinks, and sherbet. Checking ketones and blood glucose ? Check your urine for ketones when you are ill and as told by your health care provider. ? If your blood glucose is 240 mg/dL (13.3 mmol/L) or higher, check your urine ketones every 4 hours.If you have moderate or large ketones, call your health care provider. ? To check your ketone levels follow these steps: ? Collect urine in a small cup. ? Dip a test strip in the urine. ? Wait for it to change color. ? Compare the strip to the color chart that comes with the test kit. ? Check your blood glucose every day, and as often as told by your health care provider. ? If your blood glucose is high, drink plenty of fluids. This helps flush out ketones. ? If your blood glucose is above your target for two tests in a row, contact your health care provider. General instructions ? Carry a medical alert card or wear medical alert jewelry that shows that you have diabetes. ? Do exercises as told by your health care provider. Do not exercise when your blood glucose is high and you have ketones in your urine. ? If you get sick, call your health care provider and begin treatment quickly. Your body often needs extra insulin to fight an illness. Check your blood glucose every 4 hours when you are sick. ? Keep all follow-up visits. This is important. Where to find more information For more information, guidance, and advice, look online here: ? [place] [employer]: diabetes.org ? Association of Diabetes [employer] & Education Specialists: diabeteseducator.org Contact a health care provider if: ? Your blood glucose level is higher than 240 mg/dL (13.3 mmol/L) for 2 days in a row. ? You have moderate or large ketones in your urine. ? You have a fever. ? You cannot eat or drink without vomiting. ? You have been vomiting for more than 2 hours. ? You continue to have symptoms of DKA. ? You develop new symptoms. Get help right away if: ? Your blood glucose monitor reads high even when you are taking insulin. ? You faint. ? You have chest pain or you have trouble breathing. ? You have sudden trouble speaking or swallowing. ? You have vomiting or diarrhea that gets worse after 3 hours. ? You are unable to stay awake or you have trouble thinking. ? You are severely dehydrated. Symptoms of severe dehydration include: ? Extreme thirst. ? Dry mouth. ? Rapid breathing. These symptoms may represent a serious problem that is an emergency. Do not wait to see if the symptoms will go away. Get medical help right away. Call your local emergency services (911 in the [place] Do not drive yourself to the hospital. Summary ? DKA is a serious complication of diabetes. This condition develops when there is not enough insulinin the body. ? This condition is diagnosed based on your medical history, a physical exam, and blood tests. You may also have a urine test to check for ketones. ? DKA is a serious medical condition. You may need emergency treatment in the hospital to monitor your condition. ? Contact your health care provider if your blood glucose is higher than 240 mg/dL for 2 days in a row or if you have moderate or large ketones in your urine. This information is not intended to replace advice given to you by your health care provider. Make sure you discuss any questions you have with your health care provider. Document Revised: 07/30/2021 Document Reviewed: 05/22/2021 [employer] Patient Education ?? 2022 [employer] Patient/Learning Support Assistant Signature Patient Name:AFUA ROSALES I have received this information and my questions have been answered. Patient/Learning Support Assistant Name: Patient/Learning Support Assistant Signature: Relationship to Patient: Witness Name/Signature: Date: Electronically Signed on: 03/20/2024 13:57 EDTSigned by:AT Physician Emergency department Note * Ritesh Mojica MD: PERFORM Event Display: ED Note Physician Authored Date: [id number] AFUA ROSALES :1975 Age:48 years Sex:Female Visit Date:03/18/2024 Basic Information Time Seen: Ritesh Mojica MD / 03/18/2024 15:29 Chief Complaint N/V since overnight. Seen at [facility] this AM. Told potassium was low and glucose was high - both were treated and pt was D/C. Still unable to keep anything down. Type 1 diabetic. History Of Present Illness: 48-year-old??female with past medical history significant for type 1 diabetes presents to the ER for nausea and vomiting.?? The patient states she woke up at 4:00 this morning with nausea and vomiting. ??She took an ambulance to [facility] ER. ??She says she was told she had high blood sugar and high potassium. ??She think she had a CAT scan of her brain and was given IV medications. ??She was discharg ed home??around 9 AM. ??She says when she got home she continued to vomit and went back to [facility] ER.?? She says she sat in the waiting room??continuing to vomit but was never taken back into the treatment area. ??She says she ended up passing out and her boyfriend??drove her here.?? She complains of upper abdominal to lower chest pain. ??No cough or shortness of breath. ??No diarrhea or constipation. ??No fevers or urinary symptoms.?? Blood sugar has been running high at home. Review of Systems: CONSTITUTIONAL:??No fevers or chills. EYES:??No change in vision. ENT:??No sore throat. ??No headache. ??No neck pain. CARDIOVASCULAR:??No chest pain, palpitations. RESPIRATORY:??No cough, shortness of breath or hemoptysis. :??No change in urination. SKIN:??No rash. NEUROLOGIC:??No focal numbness or weakness. LYMPH:??No swelling. ?? Review of systems otherwise as stated in HPI Physical Exam Vitals & Measurements T:??36.8?C ??(Temporal Artery)?? HR:??101??(Peripheral)?? HR:??101??(Monitored)?? RR:??21?? BP:??93/82?? SpO2:??100%?? HT:??162??cm?? WT:??59.42??kg?? BMI:??22.64?? O2 Therapy:??Room air?? GENERAL:??Awake and alert.?? Appears moderately uncomfortable and moderately ill. HEENT:??Normocephalic, atraumatic. ??Mucous membranes are dry. NECK:??Supple. ??Nontender. HEART:??Regular and tachycardic. LUNGS:??Clear to auscultation bilaterally. ??No respiratory distress. ABDOMEN:??Soft, moderate tenderness epigastrium and bilateral upper quadrants. ??No guarding or rebound. ??No pulsatile mass. BACK:??Diffuse lumbar paraspinal tenderness without CVA tenderness. ??No midline TLS spine tenderness. EXTREMITIES:??Nontender and without edema. NEUROLOGIC:??Awake, alert, and oriented x3. ??Motor and sensory grossly intact. SKIN:??Warm and dry. VASCULAR:??Radial 2+ bilaterally. Medical Decision Making: Nausea and vomiting. ??The patient has a history of type 1 diabetes and presents with elevated blood sugar with nausea and vomiting.?? She had an evaluation at [facility] this morning and represented there but left before being seen from the waiting room.?? She has moderate upper abdominal tenderness but a nonperitoneal abdominal exam. ??She was borderline tachycardic with??intermittently soft blood pressures.?? Laboratory studies are notable for a mildly elevated white count at 11, mild acidosis at7.30but reassuring bicarb at 22.?? Anion gap slightly elevated at 16 with BHB at 3.14 and lactic acid of 2.7??suggestive of early or mild DKA.?? Abdominal CT is negative for acute intra-abdominal process. ??No evidence for??focal infectious etiology.?? She complained of chest pain??in the lower chest but EKG shows right bundle branch block and high-sensitivity troponin is negative making ACS unlikely. ??CT is negative for PE.?? She was treated with IV fluids, antiemetics, and is sleepy but still having difficulty taking p.o. ??Repeat blood sugar is 2 2:50 liters of IV fluid and additional IV fluid and IV insulin have been ordered.?? I believe the patient would benefit from admission to the hospital??for further management. ??Hospitalist has been contacted for admission. Procedure No Qualifying Data Assessment/Plan 1.??Nausea and vomiting??R11.2 Orders: insulin regular 100 units/mL human recombinant injectable solution, 3 units = 0.03 mL, IV Push, Soln, Once, First Dose: 03/18/24 18:00:00 EDT, Stop Date: 03/18/24 18:00:00 EDT, Physician Stop, Routine Protonix, 40 mg = 1 EA, IV Push, Vial, Once, First Dose: 03/18/24 18:00:00 EDT, Stop Date: 03/18/2418:00:00 EDT, Physician Stop, Routine Sodium Chloride 0.9% 1,000 mL, Total Volume (mL): 1,000, 1,000 mL, Soln-IV, Medication Bolus, 999 mL/hr, Order Duration: 1 times, Start Date: 03/18/24 17:25:00 EDT, Stop Date: 03/18/24 18:24:00 EDT, 59.42 kg, Populate Charting Weight From Order, 1.64, m2 CV Electrocardiogram 12 Lead, 03/18/24 15:30:00 EDT, Stat, Reason: Chest Pain, Stop date and time 03/18/24 15:30:00 EDT, ORD_SET_REQ_DT_RANGE, [facility] Person Id Lactic Acid, Blood, RT, 03/18/24 18:51:00 EDT, Once, Lab Collect Troponin-I High Sensitivity, Blood, Stat, 03/18/24 15:30:00 EDT, Once, Nurse collect Medication Reconciliation Unchanged aspirin (Aspirin Low Dose 81 mg oral tablet, chewable)1 tab Chewed every day. ?? atorvastatin (atorvastatin 80 mg oral tablet)1 tab Oral (given by mouth) every day. ?? empagliflozin (Jardiance 10 mg oral tablet)1 tab Oral (given by mouth) every morning. ?? insulin aspart (Fiasp FlexTouch 100 units/mL injectable solution)Subcutaneous (under the skin) 3 times a day before meals. ?? insulin glargine (Basaglar KwikPen 100 units/mL subcutaneous solution)20 Units Subcutaneous (under the skin) every day. ?? magnesium oxide (magnesium oxide 400 mg (241.3 mg elemental magnesium) oral tablet)1 tab Oral (given by mouth) every day. ?? metoprolol (Metoprolol Succinate ER 25 mg oral tablet, extended release)1 tab Oral (given by mouth)every day. ?? multivitamin (Tab-A-Aaron oral tablet)1 tab Oral (given by mouth) every day. Problem List/Past Medical History Ongoing No qualifying data Historical No qualifying data Medication Administration Given Sodium Chloride 0.9%, 1000 mL, Medication Bolus Sodium Chloride 0.9%, 1000 mL, Medication Bolus ondansetron, 4 mg, IV Push Phenergan, IV Piggyback Allergies No Known Medication Allergies Social History Electronic Cigarette/Vaping Electronic Cigarette Use: Unknown/not obtained. Tobacco Tobacco use status unknown Tobacco Use:. Diagnostic Results CT Abdomen and Pelvis w/ Contrast 03/18/2024 17:[address] Angio Chest 03/18/2024 17:[address] Angio Chest ?? 03/18/24 17:06:51 EXAM DESCRIPTION: CT Angio Chest ?? N/A ?? INDICATION: CHEST PAIN, ? PE ?? TECHNIQUE: All CT scans at this facility use at least one of these dose optimization techniques: Automated exposure control; mA and/or kV adjustment per patient size (includes targeted exams where dose is matched to clinical indication); or iterative reconstruction. ?? CT angiography examination of the chest with thin section axial images including sagittal and coronal MPR images performed on a separate workstation under concurrent supervision. ?? 100 cc of Isovue 370 contrast was utilized ?? COMPARISON: None ?? FINDINGS: Normal opacification of the right ventricular outflow tract, main pulmonary arteries and segmental pulmonary arteries with no evidence of pulmonary embolism. No evidence of thoracic aortic dissection. ?? No focal infiltrate or pulmonary mass with minimal biapical scarring. No significant emphysematous changes. No central endobronchial filling defect identified ?? No pleural effusion or pneumothorax ?? No mediastinal, hilar or axillary adenopathy. No pericardial effusion. ?? No suspicious regional osseous lesions. ?? IMPRESSION: No evidence of pulmonary embolism. ?? Clear lungs with no focal infiltrate or pulmonary mass. ? JOB #: [id number] Electronically Signed By: ?? Signed By: Kane Carrillo MD ?? CT Abdomen and Pelvis w/ Contrast ?? 03/18/24 17:11:48 EXAM DESCRIPTION: CT Abdomen and Pelvis w/ Contrast ?? 03/18/2024 ?? INDICATION: UPPER ABD PAIN, N/V ?? TECHNIQUE: All CT scans at this facility use at least one of these dose optimization techniques: Automated exposure control; mA and/or kV adjustment per patient size (includes targeted exams where dose is matched to clinical indication); or iterative reconstruction. ?? Technique: Axial CT images of the abdomen/pelvis with IV contrast administration ?? 100 cc of Isovue 370 contrast was utilized ?? COMPARISON: None ?? FINDINGS: No focal hepatic lesion. Normal enhancement of the main hepatic veins and main portal vein ?? Normal spleen size without focal mass ?? No calcified gallstones in the gallbladder. ?? Adrenal glands and pancreas appear within normal limits. ?? No focal renal mass, hydronephrosis or perinephric fluid collection on either side. Small nonobstructing bilateral renal calculi are noted. ?? Normal caliber abdominal aorta with scattered atherosclerotic calcifications ?? No retroperitoneal adenopathy in the abdomen or pelvis. ?? No pelvic mass identified ?? No bowel dilatation to suggest obstruction or ileus. No free intraperitoneal air, ascites or inflammatory changes. Normal appendix. ?? No suspicious regional osseous lesions. ?? IMPRESSION: Nonobstructive bowel pattern. No free air or inflammatory changes. Normal appendix. ?? No abdominal/pelvic mass or adenopathy ?? Small nonobstructing bilateral renal calculi. ? JOB #: [id number] Electronically Signed By: ?? Signed By: Kane Carrillo MD ECG Normal sinus rhythm at 96. ??Right bundle branch block. Lab Results CBC and Differential?? LATEST RESULTS?? WBC?? 03/18/24 15:51?? 11.7 ??High?? RBC?? 03/18/24 15:51?? 4.06 ??Low?? Hgb?? 03/18/24 15:51?? 12.5?? Hct?? 03/18/24 15:51?? 37.6?? MCV?? 03/18/24 15:51?? 92.8?? MCH?? 03/18/24 15:51?? 30.9?? MCHC?? 03/18/24 15:51?? 33.3?? RDW-CV?? 03/18/24 15:51?? 14.0?? Platelets?? 03/18/24 15:51?? 209?? MPV?? 03/18/24 15:51?? 7.8?? Segs Man?? 03/18/24 15:51?? 89?? Lymph Man?? 03/18/24 15:51?? 9.0 ??Low?? [place] Man?? 03/18/24 15:51?? 2.0?? Eos Man?? 03/18/24 15:51?? 0.00?? Baso Man?? 03/18/24 15:51?? 0.0?? Band Man?? 03/18/24 15:51?? 0?? Abs Neut Man?? 03/18/24 15:51?? 10.4 ??High?? Abs Lymph Man?? 03/18/24 15:51?? 1.1 ??Low?? Abs [place] Man?? 03/18/24 15:51?? 0.2?? Abs Eos Man?? 03/18/24 15:51?? 0.0?? Abs Baso Man?? 03/18/24 15:51?? 0.0?? RBC Morph?? 03/18/24 15:51?? Normal?? Plt Estimation?? 03/18/24 15:51?? Normal?? Slide Review?? 03/18/24 15:51?? Man Diff? Blood Gases?? LATEST RESULTS?? pH Butch?? 03/18/24 15:51?? 7.30 ??Low?? pCO2 Butch?? 03/18/24 15:51?? 44.0?? HCO3 Venous?? 03/18/24 15:51?? 21.6 ??Low?? CO2 Total Venous?? 03/18/24 15:51?? 23.0? Routine Chemistry?? LATEST RESULTS?? Sodium Level?? 03/18/24 15:51?? 136?? Potassium Level?? 03/18/24 15:51?? 5.1?? Chloride Level?? 03/18/24 15:51?? 98?? CO2?? 03/18/24 15:51?? 22?? Alk Phos?? 03/18/24 15:51?? 83?? AST?? 03/18/24 15:51?? 43 ??High?? ALT?? 03/18/24 15:51?? 42?? BUN?? 03/18/24 15:51?? 31 ??High?? Glucose Level?? 03/18/24 15:51?? 288 ??High?? Creatinine Level?? 03/18/24 15:51?? 1.10?? BUN/Creat Ratio?? 03/18/24 15:51?? 28.2 ??High?? eGFR CKD-EPI?? 03/18/24 15:51?? 62?? Calcium Level?? 03/18/24 15:51?? 10.3?? Protein Total?? 03/18/24 15:51?? 7.7?? Albumin Level?? 03/18/24 15:51?? 4.4?? Globulin?? 03/18/24 15:51?? 3.3?? A/G Ratio?? 03/18/24 15:51?? 1.3?? Bilirubin Total?? 03/18/24 15:51?? 0.9?? Anion Gap?? 03/18/24 15:51?? 16.0 ??High?? Beta-Hydroxybutyrate?? 03/18/24 15:51?? 3.14 ??High?? Lactic Acid Lvl?? 03/18/24 15:51?? 2.7 ??High?? Lipase Level?? 03/18/24 15:51?? 16?? Magnesium Level?? 03/18/24 15:51?? 2.3?? Glucose POC?? 03/18/24 17:28?? 249? Cardiac Isoenzymes?? LATEST RESULTS?? Troponin-I HS?? 03/18/24 15:51?? 10? Electronically Signed on 03/18/2024 17:33 EDT Ritesh Mojica MD Progress note * Event Display: Progress Note - Physician Authored Date: [id number] Attending Physician - Brief Progress Note PERMANENT 03/20/2024 09:37 [facility] AFUA ROSALES Date of Service 03/20/2024 09:37 HPI/Events of Note Brief teleICU Note EMR reviewed. 48yo female h/o T1DM admitted to ICU yesterday for altered mental status and DKA. She has been on DKA protocol. Head CT performed yesterday is negative. Patient seen on camera: young appearing woman sitting up in bed on RA in [facility], appropriately interacting with bedside staff. 37.4 111 99/50 23 93% Labs noted, AG normal. Evaluation and management per bedside team. Proph: Lovenox Please contact us if we may be of assistance. Interventions Major-Change in mental status - evaluation and management, Other: DKA * Event Display: Progress Note - Physician Authored Date: [id number] Attending Physician - Brief Progress Note PERMANENT 03/19/2024 11:27 [facility] - ICU AFUA ROSALES Date of Service 03/19/2024 11:27 HPI/Events of Note Brief teleICU Admit Note Brian called: spoke with bedside Nurse on camera. Patient transferred from the floor for unresponsiveness, apneic episodes with desaturations. I ordered a dose of IV Narcan 0.4mg and a STAT ABG. Case discussed with Dr. Muro by phone. 48yo female h/o T1DM admitted yesterday for N/V. CT AP unremarkable. Chest CTA neg for PE nor otherfindings. Transferred to ICU this morning as above. Plan to start DKA protocol. No suspicion for meningitis with absence of fever and nuchal rigidity. Patient seen on camera: middle aged female who appears to be sleeping on NC in NAD. Intermittently yells/moans. I was not able to stay on camera for much time after Narcan was given, but it appeared that the patient was more awake and yelling more frequently. R 16 sat 98-100% on NC 101 92/44. UTS is positive for THC, but does not rule out narcotic use that does not show up on screen, nor other street drugs that can cause somnolence and respiratory suppression. Blood gas: 7. that is similar to VBG drawn earlier this morning 7.. Head CT this morning is read as negative. Plan is for DKA protocol, infection workup, consider empiric antibiotics. Per teleICU Nurse, plan Neuro consultation. Proph: Lovenox Please contact us if we may be of assistance. Interventions Major-Change in mental status - evaluation and management, Other: DKA Intermediate-Communication with other healthcare providers and/or family Minor-Clinical assessment - ordering diagnostic tests * Willis Muro MD: PERFORM, MODIFY, MODIFY Event Display: Progress Note - Physician Authored Date: [id number] AFUA ROSALES :1975 Age:48 years Sex:Female Visit Date:03/18/2024 Subjective The patient is moaning, she follows some commands, I cannot find a source of pain. Review of Systems Constitutional: Patient is moaning nonspecifically at this time. ENT:??No ear pain, nasal congestion, sore throat Respiratory:??No shortness of breath, cough Cardiovascular:??No Chest pain, palpitations, syncope Gastrointestinal:??No nausea, vomiting, diarrhea Genitourinary:??No hematuria Musculoskeletal:??No back pain, neck pain, joint pain, muscle pain, decreased range of motion Neurologic: She is either in pain distress, psychological distress, or both. Objective Vitals & Measurements T:??37.2?C ??(Temporal Artery)?? TMIN:??36.8?C ??(Temporal Artery)?? TMAX:??37.3?C ??(Temporal Artery)?? HR:??98??(Peripheral)?? RR:??20?? BP:??89/43?? SpO2:??97%?? HT:??162??cm?? WT:??63??kg?? BMI:??22.64?? Pain Score:??10?? O2 Flow Rate:??2?? O2 Therapy:??Nasal cannula?? BSA:??1.64?? Physical Exam General: She is moaning although I cannot find a source of pain. ??She did follow some commands though during my examination which appears nonfocal..?? HENT: I cannot assess any??nuchal rigidity..?? Lungs: Lungs are clear..?? Heart: No tachycardia.. Abdomen:??Soft, non-tender, non-distended, normal bowel sounds, no masses.?? Musculoskeletal:??Normal range of motion and strength, no tenderness or swelling. Skin:??Skin is warm, dry and pink, no rashes or lesions. Neurologic: Patient is moaning either in pain or psychologically but will track me and will follow some commands. ??Her exam seems nonfocal without nuchal rigidity??this time. ??Pupils are equal reactive to light and all cranial nerves appear intact. Lab Results Last 1 Week?? Chemistry Event Name?? Event Result?? Date/Time?? Sodium Level 138 mmol/L 03/19/24 07:40:00 Potassium Level 4.8 mmol/L 03/19/24 07:40:00 Chloride Level 107 mmol/L 03/19/24 07:40:00 CO2 13 mmol/L??Low 03/19/24 07:40:00 Alk Phos 83 IntlUnit/L 03/18/24 15:51:00 AST 43 IntlUnit/L??High 03/18/24 15:51:00 ALT 42 IntlUnit/L 03/18/24 15:51:00 BUN 33 mg/dL??High 03/19/24 07:40:00 Glucose Level 200 mg/dL??High 03/19/24 07:40:00 Creatinine Level 1.1 mg/dL 03/19/24 07:40:00 BUN/Creat Ratio 30??High 03/19/24 07:40:00 eGFR CKD-EPI 62 mL/min/1.73 m2 03/19/24 07:40:00 Calcium Level 8.7 mg/dL 03/19/24 07:40:00 Protein Total 7.7 g/dL 03/18/24 15:51:00 Albumin Level 4.4 g/dL 03/18/24 15:51:00 Globulin 3.3 g/dL 03/18/24 15:51:00 A/G Ratio 1.3 g/dL 03/18/24 15:51:00 Bilirubin Total 0.9 mg/dL 03/18/24 15:51:00 Anion Gap 18??High 03/19/24 07:40:00 Beta-Hydroxybutyrate 2.75 mm??High 03/18/24 20:10:00 Lactic Acid Lvl 2.2 mmol/L 03/19/24 07:40:00 Lipase Level 16 unit/L 03/18/24 15:51:00 Magnesium Level 2.1 mg/dL 03/19/24 07:40:00 Osmolality 288 mOsm/kg 03/18/24 20:10:00 Glucose POC 192 03/19/24 09:44:00 Troponin-I HS 10 ng/L 03/18/24 17:06:00 Folate Level >24.8 03/18/24 20:10:00 B12 Level 750 pg/mL 03/18/24 20:10:00 ? Hematology Event Name?? Event Result?? Date/Time?? WBC 13.6 K/mcL??High 03/19/24 07:40:00 RBC 3.36 Million/mcL??Low 03/19/24 07:40:00 Hgb 10.5 g/dL??Low 03/19/24 07:40:00 Hct 31.6 %??Low 03/19/24 07:40:00 MCV 93.9 fL 03/19/24 07:40:00 MCH 31.3 pg??High 03/19/24 07:40:00 MCHC 33.3 g/dL 03/19/24 07:40:00 RDW-CV 14.1 % 03/19/24 07:40:00 Platelets 174 K/mcL 03/19/24 07:40:00 MPV 8 fL 03/19/24 07:40:00 Neutro Auto 88.3 %??High 03/19/24 07:40:00 Lymph Auto 7.8 %??Low 03/19/24 07:40:00 [place] Auto 3.8 % 03/19/24 07:40:00 Eos, Auto 0 % 03/19/24 07:40:00 Basophil Auto 0.1 % 03/19/24 07:40:00 Neutro Absolute 12 K/mcL??High 03/19/24 07:40:00 Lymph Absolute 1.1 K/mcL??Low 03/19/24 07:40:00 [place] Absolute 0.5 K/mcL 03/19/24 07:40:00 Eos Absolute 0 K/mcL 03/19/24 07:40:00 Baso Absolute 0 K/mcL 03/19/24 07:40:00 Segs Man 89 03/18/24 15:51:00 Lymph Man 9 %??Low 03/18/24 15:51:00 [place] Man 2 % 03/18/24 15:51:00 Eos Man 0 % 03/18/24 15:51:00 Baso Man 0 % 03/18/24 15:51:00 Band Man 0 % 03/18/24 15:51:00 Abs Neut Man 10.4 K/mcL??High 03/18/24 15:51:00 Abs Lymph Man 1.1 K/mcL??Low 03/18/24 15:51:00 Abs [place] Man 0.2 K/mcL 03/18/24 15:51:00 Abs Eos Man 0 K/mcL 03/18/24 15:51:00 Abs Baso Man 0 K/mcL 03/18/24 15:51:00 RBC Morph Normal 03/18/24 15:51:00 Plt Estimation Normal 03/18/24 15:51:00 Slide Review Not Indicated 03/19/24 07:40:00 ? Urinalysis Event Name?? Event Result?? Date/Time?? Urine Srce Clean Catch 03/18/24 18:50:00 UA Color LIGHT YELL 03/18/24 18:50:00 UA Appear CLEAR. 03/18/24 18:50:00 UA Glucose >=1000 03/18/24 18:50:00 UA Bili NEGATIVE 03/18/24 18:50:00 UA Ketones 40 03/18/24 18:50:00 UA Spec Grav 1.01 03/18/24 18:50:00 UA Blood NEGATIVE 03/18/24 18:50:00 UA pH 5.5 03/18/24 18:50:00 UA Protein NEGATIVE 03/18/24 18:50:00 UA Urobilinogen 0.2 03/18/24 18:50:00 UA Nitrite NEGATIVE 03/18/24 18:50:00 UA Leuk Est NEGATIVE 03/18/24 18:50:00 ? Blood Gases Event Name?? Event Result?? Date/Time?? pH Art 7.26 pH unit(s)??Low 03/19/24 07:33:00 pCO2 Art 31 mmHg??Low 03/19/24 07:33:00 pO2 Art 44 mmHg??Critical 03/19/24 07:33:00 HCO3 Art 13.9 mmol/L??Low 03/19/24 07:33:00 O2 Sat Art 71.8 %??Low 03/19/24 07:33:00 CO2 Total Arterial 14.9 mmol/L??Low 03/19/24 07:33:00 Base Excess Arterial -12 mmol/L??Low 03/19/24 07:33:00 pH Butch 7.26 pH unit(s)??Low 03/19/24 07:40:00 pCO2 Butch 25 mmHg??Low 03/19/24 07:40:00 HCO3 Venous 11.2 mmol/L??Low 03/19/24 07:40:00 CO2 Total Venous 12 mmol/L??Low 03/19/24 07:40:00 ? All Other Results Event Name?? Event Result?? Date/Time?? Ethanol Level <0.01 03/19/24 07:40:00 Instr Ethanol Lvl <10 03/19/24 07:40:00 U Amph Scrn NEGATIVE 03/19/24 09:11:00 U Eleanor Scrn NEGATIVE 03/19/24 09:11:00 U Benzodia Scrn NEGATIVE 03/19/24 09:11:00 U Buprenorph Scr NEGATIVE 03/19/24 09:11:00 U Cocaine Scrn NEGATIVE 03/19/24 09:11:00 U Fentanyl Scr NEGATIVE 03/19/24 09:11:00 U THC Scr POSITIVE Abnormal 03/19/24 09:11:00 U Methadone Scr NEGATIVE 03/19/24 09:11:00 U Opiate Scrn NEGATIVE 03/19/24 09:11:00 U Oxy Scrn NEGATIVE 03/19/24 09:11:00 U PCP Scrn NEGATIVE 03/19/24 09:11:00 U PPX Scr NEGATIVE 03/19/24 09:11:00 ? Diagnostic Results X-Ray:?? Computed Tomography: ?? CT Angio Chest ?? 03/18/24 17:06:51 EXAM DESCRIPTION: CT Angio Chest ?? N/A ?? INDICATION: CHEST PAIN, ? PE ?? TECHNIQUE: All CT scans at this facility use at least one of these dose optimization techniques: Automated exposure control; mA and/or kV adjustment per patient size (includes targeted exams where dose is matched to clinical indication); or iterative reconstruction. ?? CT angiography examination of the chest with thin section axial images including sagittal and coronal MPR images performed on a separate workstation under concurrent supervision. ?? 100 cc of Isovue 370 contrast was utilized ?? COMPARISON: None ?? FINDINGS: Normal opacification of the right ventricular outflow tract, main pulmonary arteries and segmental pulmonary arteries with no evidence of pulmonary embolism. No evidence of thoracic aortic dissection. ?? No focal infiltrate or pulmonary mass with minimal biapical scarring. No significant emphysematous changes. No central endobronchial filling defect identified ?? No pleural effusion or pneumothorax ?? No mediastinal, hilar or axillary adenopathy. No pericardial effusion. ?? No suspicious regional osseous lesions. ?? IMPRESSION: No evidence of pulmonary embolism. ?? Clear lungs with no focal infiltrate or pulmonary mass. ? JOB #: [id number] Electronically Signed By: ?? Signed By: Kane Carrillo MD ?? CT Abdomen and Pelvis w/ Contrast ?? 03/18/24 17:11:48 EXAM DESCRIPTION: CT Abdomen and Pelvis w/ Contrast ?? 03/18/2024 ?? INDICATION: UPPER ABD PAIN, N/V ?? TECHNIQUE: All CT scans at this facility use at least one of these dose optimization techniques: Automated exposure control; mA and/or kV adjustment per patient size (includes targeted exams where dose is matched to clinical indication); or iterative reconstruction. ?? Technique: Axial CT images of the abdomen/pelvis with IV contrast administration ?? 100 cc of Isovue 370 contrast was utilized ?? COMPARISON: None ?? FINDINGS: No focal hepatic lesion. Normal enhancement of the main hepatic veins and main portal vein ?? Normal spleen size without focal mass ?? No calcified gallstones in the gallbladder. ?? Adrenal glands and pancreas appear within normal limits. ?? No focal renal mass, hydronephrosis or perinephric fluid collection on either side. Small nonobstructing bilateral renal calculi are noted. ?? Normal caliber abdominal aorta with scattered atherosclerotic calcifications ?? No retroperitoneal adenopathy in the abdomen or pelvis. ?? No pelvic mass identified ?? No bowel dilatation to suggest obstruction or ileus. No free intraperitoneal air, ascites or inflammatory changes. Normal appendix. ?? No suspicious regional osseous lesions. ?? IMPRESSION: Nonobstructive bowel pattern. No free air or inflammatory changes. Normal appendix. ?? No abdominal/pelvic mass or adenopathy ?? Small nonobstructing bilateral renal calculi. ? JOB #: [id number] Electronically Signed By: ?? Signed By: Kane Carrillo MD Ultrasound:?? MRI:?? Echo:?? Mammography:?? Position Emission Tomography (PET):?? Bone Densitometry:?? Assessment/Plan 1.??Hyperglycemia??R73.9 Her blood sugar is??only 200 but her gap is opening up. ??At this point I am going to treat her as a DKA??and start to correct her acidosis. ??DKA protocol??including accounting for electrolytes and potassium, fluid status, and insulin??with??BMP check starting every 3 hours. I will include beta hyd roxybutyrate,??VBG, phosphorus, magnesium, and??occasional CBC. 2.??H/O insulin dependent diabetes mellitus??Z86.39 I would like to find out more about the patient as she usually goes to an alternate hospital.?? I would like to find out about her insulin history, her compliance, her social history. 3.??Fluid deficit??E86.1 Right now she will be on DKA protocol to some extent but fluid??resuscitation will be aggressive regardless. 4.??Nausea and vomiting??R11.2 The symptoms seem to have self-limited. ??CT abdomen pelvis negative. 5.??Pain in the abdomen??R10.9 CT abdomen pelvis negative. ??While moaning in pain it does not seem to be abdominal pain. ??I cannot??ascertain such.?? Bowel sounds are also within normal limits the nontender bowel on exam. 6.??Hypertension??I10 Currently hypotension is a largest concern. ??Metoprolol discontinued. 7.??AMS (altered mental status)??R41.82 Trial of Narcan is being given.?? I have a repeat VBG pending. ??I have an infectious workup pending, she has no fever. ??I have added TSH, B12, folate. ??We have??a drugs of abuse screen but that does not cover everything.?I have ordered a CT head.?? She has not had any offending medications inour facility. ??1 dose of 25 mcg of fentanyl in the emergency room only. She is mostly moaning??and I cannot tell if there is levels of pain,??source??? Or if there are also levels of psychological moaning as well??from pain or independent standing. ??I would like to get a better history of this patient??and I think family is present. ?? Cerebell helmet for seizure activity. 8.??Infectious process??B99.9 She has no fever but mild leukocytosis.?? I have added blood cultures. ??We have a urinalysis.?? She does not have nuchal rigidity or concerns for meningitis at this point but I will have a low threshold??for starting antibiotics and for further workup??even if??aggresive??as I do not have a definitive causation of her AMS. ?? Time spent on patient care today is 40 minutes Orders: aspirin, 81 mg = 1 tab, Chewed, Tab-Chew, Daily, First Dose: 03/19/24 9:00:00 EDT, Routine atorvastatin, 80 mg = 4 tab, Oral, Tab, every night at bedtime, First Dose: 03/19/24 21:00:00 EDT, STAT Dextrose 5% with 0.45% NaCl and KCl 20 mEq/L 1,000 mL, Total Volume (mL): 1,000, 1,000 mL, Soln-IV,IV, 200 mL/hr, Start Date: 03/19/24 9:45:00 EDT, 59.42 kg, Populate Charting Weight From Order, 1.64, m2 glucagon, 1 mg = 1 EA, Subcutaneous, Injection, As Directed, First Dose: 03/18/24 17:35:00 EDT, Physician Stop, Routine Dextrose 50% injection, 25 g = 50 mL, IV Push, Injection, As Directed, First Dose: 03/18/24 17:35:00 EDT, Physician Stop, Routine insulin regular IV additive 100 units [0.1 unit/kg/hr] + Premix Diluent 100 mL, Total Volume (mL): 100, 100 mL, Soln-IV, IV, 5.95 mL/hr, Start Date: 03/19/24 9:46:00 EDT, 59.42 kg, Populate Charting Weight From Order, 1.64, m2 Lactated Ringers Injection 1,000 mL, Total Volume (mL): 1,000, 1,000 mL, Soln- IV, IV, 125 mL/hr, Start Date: 03/18/24 17:39:00 EDT, 59.42 kg, Populate Charting Weight From Order, 1.64, m2 magnesium oxide, 400 mg = 1 tab, Oral, Tab, Daily, First Dose: 03/19/24 9:00:00 EDT, Routine ondansetron, 4 mg = 2 mL, IV Push, Vial, every 6 hr, PRN nausea/vomiting, First Dose: 03/18/24 17:47:00 EDT, Routine, zofran sodium chloride 0.9% flush, 10 mL, IV Flush, Injection, As Directed, First Dose: 03/19/24 9:45:00 EDT, Physician Stop, Routine sodium chloride 0.9% flush, 10 mL, IV Flush, Injection, every 8 hr, First Dose: 03/19/24 10:00:00 EDT, Routine sodium chloride 0.9% flush, 10 mL, IV Flush, Injection, every 8 hr, First Dose: 03/19/24 10:00:00 EDT, Routine sodium chloride 0.9% flush, 10 mL, IV Flush, Injection, As Directed, First Dose: 03/19/24 9:46:00 EDT, Physician Stop, Routine Adult DKA Protocol LTTL, 03/19/24 9:46:00 EDT, Constant Order, 03/19/24 9:46:00 EDT Basic Metabolic Panel, Blood, Routine, 03/19/24 11:00:00 EDT, Once, Lab Collect Basic Metabolic Panel, Blood, Routine, 03/18/24 17:36:00 EDT, every morning, for 3 days, Lab Collect Beta Hydroxybutyrate, Blood, Add On, 03/19/24 9:46:00 EDT, Once, Lab Collect Beta Hydroxybutyrate, Blood, Routine, 03/19/24 11:00:00 EDT, Once, Lab Collect Blood Culture, Blood, Routine collect, RT - Routine, 03/19/24 9:05:00 EDT, Once, Lab Collect, PrintLabel Blood Culture, Blood, Routine collect, RT - Routine, 03/19/24 9:05:00 EDT, Once, Lab Collect, PrintLabel Blood Gas Venous, Blood, Stat, 03/19/24 11:00:00 EDT, Once, Lab Collect Blood Glucose Monitoring POC RE, 03/18/24 17:35:00 EDT, AC & bedtime CBC w/ Diff, Blood, Routine, 03/18/24 17:36:00 EDT, every morning, for 3 days, Lab Collect CBC w/ Diff, Blood, Routine, 03/19/24 11:00:00 EDT, Once, Lab Collect Consult to Dietitian Adult, 03/18/24 17:35:00 EDT, Reason for Consult Education Diet Order, 03/18/24 17:35:00 EDT, Consistent Carbohydrates, Na: 2 g sodium Intake and Output, 03/18/24 17:35:00 EDT, every 12 hr (essie), q shift, 03/18/24 21:00:00 EDT Magnesium Level, Blood, Routine, 03/18/24 17:36:00 EDT, every morning, for 3 days, Lab Collect Magnesium Level, Blood, Routine, 03/19/24 11:00:00 EDT, Once, Lab Collect Notify Provider, 03/19/24 9:46:00 EDT, Constant order, Notify of hypertension Notify Provider, 03/19/24 9:46:00 EDT, Constant order, Notify of decreased level of consciousness Notify Provider, 03/19/24 9:46:00 EDT, Constant order, Notify of localized neurologic signs, pupil inequality/dilation/non-responsiveness Notify Provider, 03/19/24 9:46:00 EDT, Constant order, Notify of bradycardia Notify Provider, 03/19/24 9:46:00 EDT, Constant order, Notify of decline in neuro status Notify Provider, 03/19/24 9:46:00 EDT, Constant order, Notify of severe headache Occupational Therapy Evaluation and Treatment Acute, 03/18/24 17:35:00 EDT, Once Patient Condition, 03/18/24 17:35:00 EDT, Condition Guarded Phosphorus Level, Blood, Add On, 03/19/24 9:45:00 EDT, Once, Lab Collect Phosphorus Level, Blood, Routine, 03/19/24 11:00:00 EDT, Once, Lab Collect Physical Therapy Evaluation and Treatment, 03/18/24 17:35:00 EDT, Once PSO Place in Observation, Observation, Observation, 03/18/24 17:33:00 EDT, 03/18/24 17:33:00 EDT, 03/18/24 17:33:00 EDT, 1 midnight or less Respiratory Panel 2.1 (BioFire), Nasopharyngeal Swab, Routine Collect, 03/19/24 9:47:00 EDT, Once, Nurse collect, Print Label Resuscitation Status, 03/18/24 17:35:00 EDT, Full Code Staph Nasal Complete (GeneXpert), Nares, Routine Collect, 03/19/24 9:17:00 EDT, Once, Nurse collect, Print Label TSH w/ Rflx to Free T4, Blood, Routine, 03/19/24 9:48:00 EDT, Once, Lab Collect TSH w/ Rflx to Free T4, Blood, Routine, 03/19/24 9:47:00 EDT, Once, Lab Collect Up ad Donna, 03/18/24 17:35:00 EDT, Constant Order, at nurse's discretion, 03/18/24 17:35:00 EDT Vital Signs, 03/18/24 17:35:00 EDT, every 4 hr (essie) Weight, 03/19/24 5:00:00 EDT, every 24 hr Electronically Signed on 03/19/2024 20:03 EDT Willis Muro MD History and physical note * Willis Muro MD: PERFORM Event Display: History and Physical Authored Date: [id number] AFUA ROSALES :1975 Age:48 years Sex:Female Visit Date:03/18/2024 Chief Complaint N/V since overnight. Seen at [facility] this AM. Told potassium was low and glucose was high - both were treated and pt was D/C. Still unable to keep anything down. Type 1 diabetic. History of Present Illness The patient is a very poor historian. ??But to the point she did just receive fentanyl for??discomfort??. ?? The patient has a history of hypertension, hyperlipidemia, more notably insulin- dependent diabetes.??It is unclear about her compliance or why her blood sugars have become elevated. But nonetheless, the most likely??is a driving force for her symptomology. ?? Running such, the patient had nausea and vomiting.?? This lasted??throughout the evening yesterday and she went to a local hospital for evaluation. ??There she was noted to be hyperglycemic and hyperkalemic??and was treated with insulin and fluids. ??She was discharged. ?? She says she had a resumption of the nausea and vomiting did not feel better. ??She went back to the emergency room but was in the waiting room for quite some time??and thus came to our hospital for evaluation. ?? In the emergency room she was hyperglycemic with a blood sugar of 306.?? Fortunately, her pH is 7.30 and she is not in DKA. ??Her bicarb is within normal limits. ??She does have an elevated beta hydroxybutyrate. She does complain of nausea, vomiting, and abdominal discomfort. ?? For the abdominal pain CT abdomen pelvis is undertaken which shows.... ?? (03/18/2024 17:[address] Abdomen and Pelvis w/ Contrast) ?? IMPRESSION: Nonobstructive bowel pattern. ??No free air or inflammatory changes. ??Normal appendix. ?? No abdominal/pelvic mass or adenopathy ?? Small nonobstructing bilateral renal calculi. ? Her blood sugars are already improving with IV fluids so she is only given 3 units of insulin. ?? The hospitalist service is called for admission. Review of Systems Constitutional: 4 doing a good microsystem??she complains of??malaise, nausea, vomiting but denies fever or chills ENT:??No ear pain, nasal congestion, sore throat Respiratory:??No shortness of breath, cough Cardiovascular: No chest pain, no palpitations Gastrointestinal: Abdominal discomfort, nausea, vomiting since yesterday. Genitourinary: No dysuria, no frequency, no hesitancy. Musculoskeletal:??No back pain, neck pain, joint pain, muscle pain, decreased range of motion Neurologic:??Alert & oriented X 4 ?? Physical Exam Vitals & Measurements T:??36.8?C ??(Temporal Artery)?? HR:??101??(Peripheral)?? HR:??101??(Monitored)?? RR:??21?? BP:??93/82?? SpO2:??100%?? HT:??162??cm?? WT:??59.42??kg?? BMI:??22.64?? O2 Therapy:??Room air?? General: Seems comfortable and a little sleepy after fentanyl but easily arousable..?? HENT: [Normocephalic, clear tympanic membranes, normal hearing, moist oral mucosa, no scleral icterus, no sinus tenderness].?? Lungs: [Clear to auscultation and percussion, non-labored respiration].?? Heart: [Normal rate, regular rhythm, no murmur, gallop or edema]. Abdomen: I cannot really elicit??much discomfort with deep palpation. ??No specific area of concern. ??Bowel sounds are appropriate..?? Musculoskeletal: [Normal range of motion and strength, no tenderness or swelling]. Skin: [Skin is warm, dry and pink, no rashes or lesions]. Neurologic: Cranial nerves are intact. ??No focal signs ?? Assessment/Plan 1.??Hyperglycemia??R73.9 Patient is not clear about her compliance or why her blood sugars have been high. ??I will need to reinterview her and see if I can ascertain this.?? Currently she is not in DKA.?? Her beta hydroxybutyrate??is elevated.?? Her anion gap is 16. ??This most likely will resolve quite well with IV fluidand she has gotten 3 units of insulin. ??Continue aggressive fluid resuscitation, repeat BMP, repeat lactic acid, repeat beta-hydroxybutyrate. ?? Sliding scale, add long-acting insulin as appropriate. 2.??H/O insulin dependent diabetes mellitus??Z86.39 Maintain long-acting insulin as appropriate, Jardiance. ??Speak about compliance and education as needed. 3.??Fluid deficit??E86.1 Aggressive??fluid resuscitation. ??She has received normal saline??boluses in the emergency room. 4.??Nausea and vomiting??R11.2 This may be secondary to??hypoglycemia or the reverse order may be true as well. ??Awaiting urinalysis. ??Abdominal scanning is negative. ??Symptom management 5.??Pain in the abdomen??R10.9 Negative imaging??at this time. ??May be related to her hyperglycemia. 6.??Hypertension??I10 Continue metoprolol with high hold parameters. ?? Time??spent??on patient care today is 60 minutes. Orders: aspirin, 81 mg = 1 tab, Chewed, Tab-Chew, Daily, First Dose: 03/19/24 9:00:00 EDT, Routine atorvastatin, 80 mg = 4 tab, Oral, Tab, every night at bedtime, First Dose: 03/19/24 21:00:00 EDT, STAT Jardiance, 10 mg = 1 tab, Oral, Tab, every morning, First Dose: 03/19/24 5:00:00 EDT, Routine glucagon, 1 mg = 1 EA, Subcutaneous, Injection, As Directed, First Dose: 03/18/24 17:35:00 EDT, Physician Stop, Routine Dextrose 50% injection, 25 g = 50 mL, IV Push, Injection, As Directed, First Dose: 03/18/24 17:35:00 EDT, Physician Stop, Routine insulin aspart Sliding Scale - Low Dose, Insulin Aspart Sliding Scale See Comments, Subcutaneous, Injection, AC & bedtime, First Dose: 03/18/24 21:00:00 EDT, Routine Lactated Ringers Injection 1,000 mL, Total Volume (mL): 1,000, 1,000 mL, Soln- IV, IV, 125 mL/hr, Start Date: 03/18/24 17:39:00 EDT, 59.42 kg, Populate Charting Weight From Order, 1.64, m2 magnesium oxide, 400 mg = 1 tab, Oral, Tab, Daily, First Dose: 03/19/24 9:00:00 EDT, Routine Metoprolol Succinate ER, 25 mg = 1 tab, Oral, Tab-ER, Daily, First Dose: 03/19/24 9:00:00 EDT, Routine Basic Metabolic Panel, Blood, Routine, 03/18/24 19:00:00 EDT, Once, Nurse collect Basic Metabolic Panel, Blood, Routine, 03/18/24 17:36:00 EDT, every morning, for 3 days, Lab Collect Beta Hydroxybutyrate, Blood, Stat, 03/18/24 19:00:00 EDT, Once, Nurse collect Blood Glucose Monitoring POC RE, 03/18/24 17:35:00 EDT, AC & bedtime CBC w/ Diff, Blood, Routine, 03/18/24 17:36:00 EDT, every morning, for 3 days, Lab Collect Consult to Dietitian Adult, 03/18/24 17:35:00 EDT, Reason for Consult Education Diet Order, 03/18/24 17:35:00 EDT, Consistent Carbohydrates, Na: 2 g sodium Intake and Output, 03/18/24 17:35:00 EDT, every 12 hr (essie), q shift, 03/18/24 21:00:00 EDT Magnesium Level, Blood, Routine, 03/18/24 17:36:00 EDT, every morning, for 3 days, Lab Collect Occupational Therapy Evaluation and Treatment Acute, 03/18/24 17:35:00 EDT, Once Patient Condition, 03/18/24:35:00 EDT, Condition Guarded Physical Therapy Evaluation and Treatment, 03/18/24:35:00 EDT, Once PSO Place in Observation, Observation, Observation, 03/18/24 17:33:00 EDT, 03/18/24 17:33:00 EDT, 03/18/24 17:33:00 EDT, 1 midnight or less Resuscitation Status, 03/18/24 17:35:00 EDT, Full Code Up ad Donna, 03/18/24 17:35:00 EDT, Constant Order, at nurse's discretion, 03/18/24 17:35:00 EDT Vital Signs, 03/18/24 17:35:00 EDT, every 4 hr (essie) Weight, 03/19/24 5:00:00 EDT, every 24 hr Problem List/Past Medical History Ongoing No qualifying data Historical No qualifying data Medications Inpatient aspirin, 81 mg= 1 tab, Chewed, Daily atorvastatin, 80 mg= 4 tab, Oral, every night at bedtime Dextrose 50% injection, 25 g= 50 mL, IV Push, As Directed glucagon, 1 mg= 1 EA, Subcutaneous, As Directed insulin aspart Sliding Scale - Low Dose, Insulin Aspart Sliding Scale See Comments, Subcutaneous, AC & bedtime Jardiance, 10 mg= 1 tab, Oral, every morning Lactated Ringers Injection 1,000 mL, 1000 mL, IV magnesium oxide, 400 mg= 1 tab, Oral, Daily Metoprolol Succinate ER, 25 mg= 1 tab, Oral, Daily Sodium Chloride 0.9% 1,000 mL, 1000 mL, Medication Bolus Home Aspirin Low Dose 81 mg oral tablet, chewable, 81 mg= 1 tab, Chewed, Daily atorvastatin 80 mg oral tablet, 80 mg= 1 tab, Oral, Daily Basaglar KwikPen 100 units/mL subcutaneous solution, 20 units, Subcutaneous, Daily Fiasp FlexTouch 100 units/mL injectable solution, Subcutaneous, TID(AC) Jardiance 10 mg oral tablet, 10 mg= 1 tab, Oral, every morning magnesium oxide 400 mg (241.3 mg elemental magnesium) oral tablet, 400 mg= 1 tab, Oral, Daily Metoprolol Succinate ER 25 mg oral tablet, extended release, 25 mg= 1 tab, Oral, Daily Tab-A-Aaron oral tablet, 1 tab, Oral, Daily Allergies No Known Medication Allergies Social History Electronic Cigarette/Vaping Electronic Cigarette Use: Unknown/not obtained. Tobacco Tobacco use status unknown Tobacco Use:. Lab Results Test Name Test Result Date/Time WBC 11.7 K/mcL 03/18/2024 15:51 EDT RBC 4.06 Million/mcL 03/18/2024 15:51 EDT Hgb 12.5 g/dL 03/18/2024 15:51 EDT Hct 37.6 % 03/18/2024 15:51 EDT MCV 92.8 fL 03/18/2024 15:51 EDT MCH 30.9 pg 03/18/2024 15:51 EDT MCHC 33.3 g/dL 03/18/2024 15:51 EDT RDW-CV 14.0 % 03/18/2024 15:51 EDT Platelets 209 K/mcL 03/18/2024 15:51 EDT MPV 7.8 fL 03/18/2024 15:51 EDT Segs Man 89 03/18/2024 15:51 EDT Lymph Man 9.0 % 03/18/2024 15:51 EDT [place] Man 2.0 % 03/18/2024 15:51 EDT Eos Man 0.00 % 03/18/2024 15:51 EDT Baso Man 0.0 % 03/18/2024 15:51 EDT Band Man 0 % 03/18/2024 15:51 EDT Abs Neut Man 10.4 K/mcL 03/18/2024 15:51 EDT Abs Lymph Man 1.1 K/mcL 03/18/2024 15:51 EDT Abs [place] Man 0.2 K/mcL 03/18/2024 15:51 EDT Abs Eos Man 0.0 K/mcL 03/18/2024 15:51 EDT Abs Baso Man 0.0 K/mcL 03/18/2024 15:51 EDT RBC Morph Normal 03/18/2024 15:51 EDT Plt Estimation Normal 03/18/2024 15:51 EDT Slide Review Man Diff 03/18/2024 15:51 EDT pH Butch 7.30 pH unit(s) 03/18/2024 15:51 EDT pCO2 Butch 44.0 mmHg 03/18/2024 15:51 EDT HCO3 Venous 21.6 mmol/L 03/18/2024 15:51 EDT CO2 Total Venous 23.0 mmol/L 03/18/2024 15:51 EDT Sodium Level 136 mmol/L 03/18/2024 15:51 EDT Potassium Level 5.1 mmol/L 03/18/2024 15:51 EDT Chloride Level 98 mmol/L 03/18/2024 15:51 EDT CO2 22 mmol/L 03/18/2024 15:51 EDT Alk Phos 83 IntlUnit/L 03/18/2024 15:51 EDT AST 43 IntlUnit/L 03/18/2024 15:51 EDT ALT 42 IntlUnit/L 03/18/2024 15:51 EDT BUN 31 mg/dL 03/18/2024 15:51 EDT Glucose Level 288 mg/dL 03/18/2024 15:51 EDT Creatinine Level 1.10 mg/dL 03/18/2024 15:51 EDT BUN/Creat Ratio 28.2 03/18/2024 15:51 EDT eGFR CKD-EPI 62 mL/min/1.73 m2 03/18/2024 15:51 EDT Calcium Level 10.3 mg/dL 03/18/2024 15:51 EDT Protein Total 7.7 g/dL 03/18/2024 15:51 EDT Albumin Level 4.4 g/dL 03/18/2024 15:51 EDT Globulin 3.3 g/dL 03/18/2024 15:51 EDT A/G Ratio 1.3 g/dL 03/18/2024 15:51 EDT Bilirubin Total 0.9 mg/dL 03/18/2024 15:51 EDT Anion Gap 16.0 03/18/2024 15:51 EDT Beta-Hydroxybutyrate 3.14 mm 03/18/2024 15:51 EDT Lactic Acid Lvl 2.7 mmol/L 03/18/2024 15:51 EDT Lipase Level 16 unit/L 03/18/2024 15:51 EDT Magnesium Level 2.3 mg/dL 03/18/2024 15:51 EDT Glucose POC 249 03/18/2024 17:28 EDT Glucose POC 306 03/18/2024 15:34 EDT Troponin-I HS 10 ng/L 03/18/2024 17:06 EDT Troponin-I HS 10 ng/L 03/18/2024 15:51 EDT Electronically Signed on 03/18/2024 17:47 EDT Willis Muro MD Discharge summary * Willis Muro MD: PERFORM Event Display: Discharge Summary Authored Date: [id number] AFUA ROSALES :1975 Age:48 years Sex:Female Visit Date:03/18/2024 Hospital Course This is??a very pleasant 48-year-old female??who I am meeting for the first time on this visit. ??She has a past medical history of CAD status post 2 stents.?? She is on aspirin, statin. She was on a beta-vesna but it made her feel tired. ??She did think about cutting the dose down but stopped it??but realized that she may need some as she tends to have a high heart rate according to her self. ?? Most notably she is an insulin-dependent diabetic. She states she has had??admissions in the past for DKA. ?? She originally stated that she missed some doses although on reinterview she said she??did not think she did. ?? She did start noticing nausea and vomiting consistent with her hyperglycemia in the past. ??Blood sugars were noted to be elevated and she went to a local emergency room.?? There she said she was then treated for hyperglycemia??and she was sent home. ??But she said the symptoms persisted??after herdischarge. ?? The patient states??she went back to the hospital??but she was in the emergency room waiting room for too long??so she drove down to our facility for evaluation. ?? In our facility the patient was noted to have??hyperglycemia but her bicarb is within normal limits, pH was 7.3 and she did not have DKA. CT abdomen and pelvis was undertaken which was negative. ??And the patient was brought in for hyperglycemia. ?? She was started with aggressive IV fluid and insulin. However, the next morning, the patient was noted to be lethargic??and had her symptoms return??and it was noted that her gap was opening up. ??At this point I transferred her to the ICU and treated her with aggressive DKA protocol. ?? The patient stayed on protocol without change. And she responded quite quickly. ?? By the afternoon she is already back to her usual self and hungry. Her pH went up to 7.47 and at that??point??we transition the patient off her insulin drip. ?? She is quite well with such. ??She started eating and drinking immediately. ??Her laboratory values??maintained without an opening up of her gap. ??She continues to have sliding scale insulin??and long-acting insulin, continues to feel quite well??and eager to go home when she went home today. ?? We spoke about compliance. I have asked that she be scheduled with our health promotion educator the patient was agreeable with such. She will also need tight follow-up with her PCP and endocrinology referral??from there. ?? I did restart her metoprolol at Toprol XL 12.5 mg p.o. daily and the patient's blood pressure??tolerated well. ??She did not report any weakness from such. ?? Her TSH was low and FT4 was elevated in the setting of??acute illness. ??I have sent out??thyroid peroxidase antibodies, T3 free and total are pending. ??This could be??followed in the outpatient setting??and repeated as such when she is no longer??having an acute hospital stay.?? She has no goiter, no??exophthalmos, no signs of??Graves' disease nor hyperthyroidism. ?? Physical Exam Vitals & Measurements T:??37.4?C ??(Temporal Artery)?? TMIN:??37.1?C ??(Temporal Artery)?? TMAX:??37.6?C ??(Temporal Artery)?? HR:??94??(Peripheral)?? HR:??94??(Monitored)?? RR:??24?? BP:??118/59?? SpO2:??100%?? WT:??63??kg?? Pain Score:??0?? O2 Therapy:??Room air?? General: Oriented x 4, very pleasant..?? HENT: No goiter, no lymphadenopathy..?? Lungs: [Clear to auscultation and percussion, non-labored respiration].?? Heart: Regular rate and rhythm and not tachycardic at time of exam. ??No murmurs gallops or rubs. Abdomen: Benign abdominal exam in all 9 quadrants..?Bowel sounds are appropriate. Musculoskeletal: [Normal range of motion and strength, no tenderness or swelling]. Skin: [Skin is warm, dry and pink, no rashes or lesions]. Neurologic: Cranial nerves II to XII are intact. ??Strength, sensation, reflexes are even and intact in her upper lower extremities. ??Coordination is intact from thumb to finger. Social History Electronic Cigarette/Vaping Electronic Cigarette Use: Unknown/not obtained. Tobacco Tobacco use status unknown Tobacco Use:. Discharge Plan 1.??Hyperglycemia??R73.9 DKA, possibly from noncompliance. ??Resolved with strict DKA protocol. ??Transition to oral??diet, long-acting insulin, and subcutaneous insulin. 2.??H/O insulin dependent diabetes mellitus??Z86.39 She will continue current regimen at home as she has an adjustable sliding scale. ??We spoke about compliance.?? I will schedule her for the health promotion educator. ??PCP follow-up and endocrinology from there. 3.??Fluid deficit??E86.1 Resolved with aggressive IV fluid. 4.??Nausea and vomiting??R11.2 Resolved with??resolution of her hyperglycemia. 5.??AMS (altered mental status)??R41.82 Resolved with resolution of her DKA, altered??workup negative. ??Baseline and quite appropriate at discharge.?? Seizures tested as well with cerebell helmet and also negative. 6.??CAD in [place] artery??I25.10 Maintain aspirin, statin, reinitiation of lower dose beta-vesna. 7.??Leukocytosis??D72.829 Most likely secondary to DKA. ??Infectious workup??complete and negative. ??No indication for antibiotics at this time. 8.??Abnormal thyroid blood test??R79.89 Hard to interpret in the setting of acute illness.?? Thyroid peroxidase antibodies pending, T3??as well.?? Follow-up with PCP in??those values will be available consideration to repeat values as well. Orders: metoprolol succinate 25 mg oral capsule, extended release, 12.5 mg = 0.5 cap, Oral, Daily, # 15 cap, 0 Refill(s), Pharmacy: [facility], 162, cm, 03/19/24 1:06:00 EDT, Height, 59.42, kg, 03/18/24 15:40:00 EDT, Weight Dosing Blood Culture, Blood, Arm R, Routine collect, RT - Routine, 03/19/24 9:05:00 EDT, Once, Lab Collect, Print Label Blood Culture, Blood, Arm R, Routine collect, RT - Routine, 03/19/24 9:05:00 EDT, Once, Lab Collect, Print Label All Diagnoses This Visit Hyperglycemia H/O insulin dependent diabetes mellitus Fluid deficit Nausea and vomiting AMS (altered mental status) CAD in [place] artery Leukocytosis Abnormal thyroid blood test Patient Discharge Condition Stable. Discharge Disposition Home with PCP follow-up, health promotion educator follow-up. ?? Time spent on patient care today is 40 minutes. Patient Education Diabetes Mellitus Basics Diabetes Mellitus and Nutrition, Adult Carbohydrate Counting for Diabetes Mellitus, Adult Blood Glucose Monitoring, Adult Diabetic Ketoacidosis Follow Up With When Contact Information health promotion educator Within 1 to 2 weeks Additional Instructions: Please schedule with??Annelise??Jerome Follow up with primary care provider Within 1 week Additional Instructions: Medication Reconciliation Changed insulin aspart (Fiasp FlexTouch 100 units/mL injectable solution)Subcutaneous (under the skin) 3 times a day before meals. sliding scale. ?? metoprolol (metoprolol succinate 25 mg oral capsule, extended release)0.5 Capsules Oral (given by mouth) every day for 30 Days. Refills: 0. ?? Unchanged aspirin (Aspirin Low Dose 81 mg oral tablet, chewable)1 tab Chewed every day. ?? atorvastatin (atorvastatin 80 mg oral tablet)1 tab Oral (given by mouth) every day. ?? empagliflozin (Jardiance 10 mg oral tablet)1 tab Oral (given by mouth) every morning. ?? insulin glargine (Basaglar KwikPen 100 units/mL subcutaneous solution)20 Units Subcutaneous (under the skin) every day. ?? magnesium oxide (magnesium oxide 400 mg (241.3 mg elemental magnesium) oral tablet)1 tab Oral (given by mouth) every day. ?? multivitamin (Tab-A-Aaron oral tablet)1 tab Oral (given by mouth) every day. Electronically Signed on 03/20/2024 19:45 EDT Willis Muro MD
--- OUTSIDE RECORDS SUMMARY | 2024-06-19 15:11 | XMS_ITS | Continuity of Care Document ---
Author Organization [facility] Ambulatory Clinics Address [address] [place] [address] Encounter [facility] NBR [id number] Date(s): 05/05/24 - 05/05/24 [facility] Ambulatory Clinics [address] [place], [place] [address] Allergies, Adverse Reactions, Alerts No Known Medication Allergies Medications Aspirin Low Dose 81 mg oral [...] # 15 cap, 0 Refill(s), Pharmacy: [facility], 162, cm, 03/19/24 1:06:00 EDT, Height, 59.42, kg, 03/18/24 15:40:00 EDT, Weight Dosing Start Date: 03/20/24 Stop Date: 04/19/24 Status: Ordered Tab-A-Aaron oral tablet 1 tab, Oral, Daily Start Date: 03/18/24 Status: Ordered Problem List Condition Confirmation Course Effective Dates Status Health St atus Informant H/O insulin dependent diabetes mellitus Confirmed Active Social History Social History Type Response Tobacco Tobacco use status u nknown Tobacco Use:. Sex Sex Representation Female (finding) Insurance Providers Guarantor name: AFUA ROSALES Health Plan Information #: 1 Payer: [facility] Member Number: NA Policy Number: [place] Health Plan Information #: 2 Payer: [place]ICAID [place] Member Number: NA Policy Number: NA
--- OUTSIDE RECORDS SUMMARY | 2024-06-19 15:12 | XMS_ITS | Encounter Summary ---
Author Organization [facility] Address [facility] Jonathan [place] [address] Care Team Providers Care Vice President Consulting Services Name Role Phone Jose Pittman Primary Care Provider + [phone] Reason for Referral * Consultation (Routine) - Closed Specialty Diagnoses / Procedures Referred By Chip sebastian Referred To Contact Otolaryngology Diagnoses 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 of right ear Tiffanie Lucero APRN [address] [place] [address] [place] [address] Tj Gray MD [facility] [address] Referral ID Status Reason Start Date Expiration Date V isits Requested Visits Authorized [id number] Closed Consult, Test & Treat PCP Updated and/or Approved 08/05/2023 01/02/2024 6 6 Encounter Details Date Type Department Care Team (Latest Contact Info) Description 08/11/2023 Transcribe Orders eDH Incoming Referrals [phone] Tiffanie Lucero APRN [address] [place] [address] [place], [place] [id number] Mixed conductive and sensorineural hearing loss of [...] in this encounter Care Teams Vice President Consulting Services Relationship Specialty Start Date End Date Jose Pittman PA [address] [place] [address] PCP - General Internal Medicine 01/30/22 04/01/24 documented as of this encounter
--- OUTSIDE RECORDS SUMMARY | 2024-06-19 15:12 | XMS_ITS | Clinical Summary ---
Author Organization [facility] Address [facility] [place] [address] Care Team Providers Care Automatic Centrifugal Station Operator Name Role Phone Karie Lindsey DEMETRIS Primary Care Provider + [phone] Allergies Active Allergy Reactions Criticality Noted Date [...] Encounters Date Type Department Care Team Description 06/19/2024 1:25 PM EST Telehealth [place] [address] Telehealth, Neurology Arrived 06/17/2024 5:10 PM EST Ancillary Procedure Radiology Library at [facility] [place] [address] Jose Abbott MD Arrived 06/17/2024 [place] [address] Gisela Vazquez MD 06/02/2024 Transcribe Orders eD Incoming Referrals [phone] Karie Lindsey, JOGGLE PRESS OPERATOR Syringomyelia and syringobulbia 05/27/2024 Ancillary Procedure Radiology Library at [facility] [place] [address] Karie Lindsey APRN 04/29/2024 Ancillary Procedure Radiology Library at [facility] [place] [address] Karie Lindsey APRN 04/11/2024 Transcribe Orders eDH Incoming Referrals [phone] Karie Lindsey, JOGGLE PRESS OPERATOR Type 1 diabetes mellitus with hyperglycemia; Type 1 diabetes mellitus with diabetic polyneuropathy; Diabetic ketoacidosis without coma associated with type 2 diabetes mellitus 04/02/2024 Transcribe Orders eDH Incoming Referrals [phone] Karie Lindsey APRN Left arm pain 04/01/2024 Ancillary Procedure Radiology Library at [facility] [place] [address] Karie Lindsey APRN from Last 3 Months Immunizations Name Administration [...] FILM LIBRARY STORAGE ONLY MR SPINE Routine 06/17/2024 5:08 PM EST MRI/MRA SCAN 06/09/2024 12:00 AM EST FILM [...] Recently Relevant to Health Maintenance Results * Film Library- Storage Only MR Spine (06/17/2024 5:08 PM EST) Only the most recent of3 resultswithin the time period is included. Narrative [facility] - 06/17/2024 5:08 PM EST This exam is auto-finalizing. It's purpose is for storage only. Jose Abbott MD [facility] FILM LIBRARY ORD ERABLES Performing Organization Address [facility] de Phone Number [place], [place] * Scan Doc: MRI/MRA (06/09/2024 12:00 AM EST) Only the most recent of4 resultswithin the time period is included. Anatomical Region Laterality Modality Other Narrative 06/09/2024 12:00 AM EST Ordered by an unspecified provider. Scanning Provider MEDIA MGR SCAN EXT O RDR/RSLT * Film Library- Storage Only CT Head And Spine (05/27/2024 12:00 AM EDT) Narrative [facility] - 06/09/2024 5:16 PM EST This exam is auto-finalizing. It's purpose is for storage only. Karie Lindsey APRN [facility] FILM LIBRARY ORD ERABLES Performing Organization Address [facility] de Phone Number [place], [place] * Scan Doc: Lab (03/28/2024 12:00 AM EDT) Narrative 03/28/2024 12:00 AM EDT Ordered by an unspecified provider. Scanning Provider MEDIA MGR SCAN EXT O RDR/RSLT * Basic Metabolic Panel (non-fasting) (01/06/2022 4:20 AM EDT) [facility] Signature Glucose 123 65 - 199 mg/dL [facility] Comment:Diabetes: >=200 mg/d L plus symptoms Blood Urea Nitrogen 13 8 - 18 mg/dL [facility] Creatinine 0.77 0.70 - 1.20 mg/dL [facility] Sodium 137 135 - 145 mmol/L [facility] Potassium 4.0 3.5 - 5.0 mmol/L [facility] Comment: Please note: ??Patients with WBC >100,000 may have falsely elevated Potassium levels. ??For accurate Potassium quantification in these patients send serum separator tube (gold top) for subsequent determinations. ??Contact the Clinical Chemistry Laboratory if there are any questions. Chloride 102 98 - 107 mmol/L [facility] Carbon Dioxide 26 22 - 31 mmol/L [facility] Anion Gap 9 5 - 15 mmol/L [facility] Calcium 9.2 8.5 - 10.5 mg/dL [facility] Est Glomerular Filtration Rate 92 >=60 mL/min/1. 73 m?? [facility] Comment: This patient? s estimated [...] In Lab Ray Salomon MD CHEMISTRY ORDERABLES [facility] [place] [address] * (ABNORMAL) Hemoglobin A1c (01/04/2022 12:50 AM EDT) Hemoglobin A1c 8.0(H) 4.3 - 5.6 % [facility] Comment: Reference Range: 4.3 - [...] Mellitus, Diabetes Care 2013; 36: Suppl. 1, S67-40 Estimated Average Glucose 183 mg/dL [facility] Comment: eAG equivalents for HbA1c [...] into estimated average glucose values. ??Diabetes Care 2008:31(8):8666-4958. Blood 01/04/2022 12:5 0 AM EDT 01/04/2022 1:24 AM EDT Narrative Resulting Agency Comment Spec In Lab Kane Ledezma MD CHEMISTRY ORDERABLES [facility] [place] [address] * U Albumin/Cre Ratio (09/29/2017 11:30 AM EST) Albumin / Creatinin Ratio, Urine 8 0 - 29 mcg/mg Cr [facility] Comment: Reference Ranges: <30 mcg/mg: [...] 2, 357? 362 Albumin, Urine 3.3 mg/L [facility] Creatinine, Urine 42 mg/dL [facility] Urine specimen (specimen) 09/29/2017 11:30 AM EST 09/29/2017 11:40 AM EST Narrative Resulting Agency Comment Spec In Lab Francoise Juarez Giovaniraine DEMETRIS URINE ORDERABLES [facility] [place] [address] from Last 3 Months or Most Recently Relevant to Health Maintenance Advance Directives * Attempt Cardiopulmonary Resuscitation - Inpatient (Latest Code Status on File) Date Activated Date Inactivated Comments 01/03/2022 11:15 PM 01/06/2022 5:03 PM Question Answer Comments Code Status decision made by: Patient Care Teams Automatic Centrifugal Station Operator Relationship Specialty Start Date End Date Karie Lindsey APRN [address] [place] [address] PCP - General Internal Medicine 04/02/24
--- OUTSIDE RECORDS SUMMARY | 2024-06-19 15:12 | XMS_ITS | Encounter Summary ---
[place] [address] Care Team Providers Care Amr Physician Name Role Phone Karie Lindsey APRN Primary Care Provider [phone] Reason for Referral * Consultation (Routine) - Authorized Specialty Diagnoses / Procedures Referred By Chip sebastian Referred To Contact Neurosurgery Diagnoses Syringomyelia and syringobulbia Karie Lindsey APRN [address] [place] [address] [facility] Neurosurgery [address] [place] [phone] Referral ID Status Reason Start Date Expiration Date Visits Requested Visits Authorized [id number] Authorized Consult, Test & Treat PCP Updated and/or Approved 05/10/2024 05/10/2025 6 6 Encounter Details Date Type Department Care Team (Latest Contact Info) Description 06/02/2024 Transcribe Orders eDH Incoming Referrals [phone] Karie Lindsey TEACHER AIDE [address], [place] [id number] Syringomyelia and syringobulbia Social History Tobacco Use [...] syringobulbia documented in this encounter Care Teams Amr Physician Relationship Specialty Start Date End Date Karie Lindsey, DEMETRIS [address] [place] [address] PCP - General Internal Medicine 04/02/24 documented as of this encounter
--- OUTSIDE RECORDS SUMMARY | 2024-06-19 15:12 | XMS_ITS | Encounter Summary ---
Author Organization [facility] Address [facility] [place] [address] Care Team Providers Care Android Ios Developer Name Role Phone Felisha Juan APRN Primary Care Provider + [phone] Encounter Details Date Type Department Care Team (Late st Contact Info) Description 01/12/2022 Telephone Cardiology at [address] [place] [phone] Irving Alexander MD [facility] [place] [address] Social History Tobacco Use Types Packs/Day Years [...] PM Referring Provider: Dr. Wilcox Patient Location: [facility] Presenting Symptoms per OSH: Kailey Hernandez is a 46 y.o. 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 She presented recently to [facility] with inferior STEMI and is now s/p PCI with TRACIE x2 to RCA. Discharged on 01/06/22. Presents to [facility] with fatigue. - She feels fatigue and [...] any acute changes due to her recent MT. She may have some side effects from [...] on filedocumented in this encounter Care Teams Android Ios Developer Relationship Specialty Start Date End Date Felisha Juan, DEMETRIS [address] [place] [address] PCP - General Family Medicine 10/29/15 01/29/22 documented as of this encounter
--- OUTSIDE RECORDS SUMMARY | 2024-06-19 15:12 | XMS_ITS | Encounter Summary ---
Author [facility] Address [facility] [place] [address] Care Team Providers Care Postal Carrier Name Role Phone Zain Jose DWAYNE Primary Care Provider [phone] Encounter Details Date Type Department Care Team (Late st Contact Info) Description 04/01/2024 Ancillary Procedure Radiology Library at [facility] [place] [address] Karie Lindsey APRN [address], [place] [phone] Social History Tobacco Use Types Packs/Day Years [...] on filedocumented in this encounter Care Teams Postal Carrier Relationship Specialty Start Date End Date Jose Pittman PA [address] [facility] [address] [place] [address] PCP - General Internal Medicine 01/30/22 04/01/24 documented as of this encounter
--- OUTSIDE RECORDS SUMMARY | 2024-06-19 15:12 | XMS_ITS | Encounter Summary ---
Author Organization [place] [address] Care Team Providers Care Conference Service Coordinator Name Role Phone Karie Lindsey APRN Primary Care Provider [phone] Reason for Referral * Consultation (Routine) - Authorized Specialty Diagnoses / Procedures Referred By Chip sebastian Referred To Contact Endocrinology Diagnoses Type 1 diabetes mellitus with hyperglycemia Type 1 diabetes mellitus with diabetic polyneuropathy Diabetic ketoacidosis without coma associated with type 2 diabetes mellitus POORLY CONTROLLED DIABETES, RECENT IN PT ADMISSION FOR DKA Fe Louis, DEMETRIS [address] [place] [address] [facility] [address] [place] [phone] Referral ID Status Reason Start Date Expiration Date Visits Requested Visits Authorized [id number] Authorized Consult, Test & Treat PCP Updated and/or Approved 03/24/2024 03/24/2025 6 6 Encounter Details Date Type Department Care Team (Latest Contact Info) Description 04/11/2024 Transcribe Orders eDH Incoming Referrals [phone] Karie Lindsey APRN [address] [place], [place] [id number] Type 1 diabetes mellitus with hyperglycemia; Type [...] mellitus documented in this encounter Care Teams Conference Service Coordinator Relationship Specialty Start Date End Date Karie Lindsey APRN [address] [place] [address] PCP - General Internal Medicine 04/02/24 documented as of this encounter
--- OUTSIDE RECORDS SUMMARY | 2024-06-19 15:12 | XMS_ITS | Encounter Summary ---
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, LEFT ARM PAIN Karie Lindsey APRN [address] [place] [address] [facility] Neurology [address] [place] [phone] Referral ID Status Reason Start Date Expiration Date V isits Requested Visits Authorized [id number] Open Consult, Test & Treat PCP Updated and/or Approved 03/15/2024 03/15/2025 6 6 Encounter Details Date Type Department Care Team (Late st Contact Info) Description 04/02/2024 Transcribe Orders eDH Incoming Referrals [phone] Karie Lindsey APRN [address] [place], [place] [id number] Left arm pain Social History Tobacco Use [...] limb documented in this encounter Care Teams Concrete Mixer Operator Helper Relationship Specialty Start Date End Date Karie Lindsey APRN [address] [place] [address] PCP - General Internal Medicine 04/02/24 documented as of this encounter
--- OUTSIDE RECORDS SUMMARY | 2024-06-19 15:12 | XMS_ITS | Encounter Summary ---
Author Organization [facility] Address [facility] [place] [address] Care Team Providers Care Fence Repairman Name Role Phone Karie Lindsey DEMETRIS Primary Care Provider + [phone] Encounter Details Date Type Department Care Team ([facility] st Contact Info) Description 06/17/2024 5:10 PM EST Ancillary Procedure Radiology Library at [facility] [place] [address] Jose Abbott MD [facility] [place] [address] Arrived Social History Tobacco Use Types Packs/Day Years [...] MR SPINE Routine 06/17/2024 5:08 PM EST documented in this encounter Results * Film Library- Storage Only MR Spine (06/17/2024 5:08 PM EST) Narrative RAYMOND - 06/17/2024 5:08 PM EST This exam is auto-finalizing. It's purpose is for storage only. Jose Abbott MD IMG FILM LIBRARY ORD ERABLES [place] documented in this encounter Visit Diagnoses Not on filedocumented in this encounter Care Teams Fence Repairman Relationship Specialty Start Date End Date Karie Lindsey APRN [address] [place] [address] PCP - General Internal Medicine 04/02/24 documented as of this encounter
--- OUTSIDE RECORDS SUMMARY | 2024-06-19 15:12 | XMS_ITS | Encounter Summary ---
Author Organization [facility] Address [facility] [place] [address] Care Team Providers Care Commercial Attorney Name Role Phone Karie Lindsey DEMETRIS Primary Care Provider + [phone] Reason for Referral * Diagnostic Test (Routine) - Authorized Specialty Diagnoses / Procedures Referred By Chip sebastian Referred To Contact Radiology Diagnoses Complete lesion of thoracic spinal cord, subsequent encounter Procedures MRI Brain wwo Contrast (Generic) Gisela Vazquez MD [facility] [place] [place] [address] Referral ID Status Reason Start Date Expiration Date Visits Requested Visits Authorized [id number] Authorized Specialty Service Requested 4 12/17/2025 1 1 * Diagnostic Test (Routine) - Authorized Specialty Diagnoses / Procedures Referred By Chip sebastian Referred To Contact Radiology Diagnoses Complete lesion of thoracic spinal cord, subsequent encounter Procedures MRI Cervical Spine wwo Contrast Gisela Vazquez MD [facility] [place] [address] Referral ID Status Reason Start Date Expiration Date Visits Requested Visits Authorized [id number] Authorized Specialty Service Requested 4 12/17/2025 1 1 Encounter Details Date Type Department Care Team (Late st Contact Info) Description 06/17/2024 [place] [address] Gisela Vazquez MD [facility] [place] [address] Social History Tobacco Use Types Packs/Day Years [...] encounter Miscellaneous Notes * Telephone Encounter - Gisela Vazquez MD - 06/17/2024 7:53 PM EST Received a call from Tanmay Doty MD & Jessica Mckenzie DO of [facility] re: Kailey Hernandez who is a 49 y.o. female with PMH of migraines, DM with sequelae retin opathy/neuropathy/nephropathy, neurogenic bladder that presented to OSH ED with c/o worsening back pain and some numbness to L hand in the last 1-2 weeks in the setting of thoracic cord lesion; MRI Thoracic Spine wwo is stable. S: Per report from OSH provider, the patient initially presented in March 2024 with pain in her left arm at which point an MRI of her cervical spine was completed and showed part of a nonenhancing, T2 hyperintense lesion in the upper thoracic cord; follow-up MRI T/L revealed this lesion spans from T2-T6. In addition to above symptoms of LUE, I'm told that the is reporting Kailey has a more unsteady gait - though she is still independently ambulatory. No bowel/bladder issues. No sensory level. She has been trying to see Neurosurgery (vs Neurology) and had a referral placed but has not yet been able to schedule an appointment. She received Dilaudid at OSH which helped relieve the back pain. O: Her reported exam: general midline and paraspinal TTP, diminished sensation in L fingers but no sensory level, full strength x4, no SA. 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 Of note is epidural lipomatosis in thoracic cord that does not persist to lumbar spine. A/P: Overall, has chronic symptoms, but have been progressive with signs of myelopathy. Her thoracic cord lesion doesn't explain her LUE symptoms so advised a repeat MRI CSP be obtained in setting of her progressive/persistent LUE symptoms. Also should get MRI Brain to assess for other lesions. OSH provider voiced hesitance about being able to do this in scheduled fashion at OSH. I will call in to seeif this process can be expedited and also advise patient call into clinic again on Thursday rather than waiting for office where the referral was placed to call her. ADDENDUM @ 8:56 AM on 06/19/2024 Called patient to check in her and overall she is stable. She describes chronic symptoms including numbness of all finger on L hand x 2 months actually, worsening back pain x2 weeks, and gait instability for about a week. She has been managing the L arm pain she's had since March with Ibuprofen and Tylenol, had Percocet prescribed some time ago for breakthrough pain and has not really needed that. Numbness is just inher fingers of LUE and this has been present for several months. The back pain is of a burning quality, located in her upper mid back and does not radiate. Also, no sensory level. The gait instability is the newest symptom from her and 's recount; she is still ambulatory. Again, she denies focal weakness. No bowel/bladder changes. I asked about being able to obtain the MRI and they do not have transportation today or tomorrow but can drive up to [facility] on Thu. If the OSH is unable to complete imaging, patient can be transferred to for rest of work-up, including Neurology consult if imaging unrevealing. Of note, on ASA81 for CO with cardiac stents x2. ED return precautions given. I have put in external orders for these MRIs. documented in this encounter Plan of Treatment Scheduled Orders Name Type Priority Associated Diagnoses Orde r Schedule MRI Cervical Spine wwo Contrast Imaging Routine Complete lesion of thoracic spinal cord, subsequent encounter Expected: 06/19/2024, Expires: 12/19/2024 MRI Brain wwo Contrast (Generic) Imaging Routine Complete lesion of thoracic spinal cord, subsequent encounter Expected: 06/19/2024, Expires: 12/19/2024 documented as of this encounter Visit Diagnoses Diagnosis Complete lesion of thoracic spinal cord, subsequent encounter documented in this encounter Care Teams Commercial Attorney Relationship Specialty Start Date End Date Karie Lindsey APRN [address] [place] [address] PCP - General Internal Medicine 04/02/24 documented as of this encounter
--- OUTSIDE RECORDS SUMMARY | 2024-06-19 15:12 | XMS_ITS | Encounter Summary ---
Author Organization [facility] Address [facility] [place] [address] Care Team Providers Care Delivery Of Shopping News Name Role Phone Karie Lindsey APRN Primary Care Provider [phone] Encounter Details Date Type Department Care Team (Late st Contact Info) Description 06/19/2024 1:25 PM EST Telehealth [place] [address] Telehealth, Neurology None Arrived Social History Tobacco Use Types Packs/Day [...] on filedocumented in this encounter Care Teams Delivery Of Shopping News Relationship Specialty Start Date End Date Karie Lindsey APRN [address] [place] [address] PCP - General Internal Medicine 04/02/24 documented as of this encounter
--- OUTSIDE RECORDS SUMMARY | 2024-06-19 15:12 | XMS_ITS | Encounter Summary ---
Author Organization [facility] Address [facility] [place] [address] Care Team Providers Care Cartographic Drafter Name Role Phone Karie Lindsey APRN Primary Care Provider + [phone] Encounter Details Date Type Department Care Team ([facility] st Contact Info) Description 05/27/2024 Ancillary Procedure Radiology Library at [facility] [place] [address] Karie Lindsey APRN [address] [place] [address] Social History Tobacco Use Types [...] IMG FILM LIBRARY ORD ERABLES [place] documented in this encounter Visit Diagnoses Not on filedocumented in this encounter Care Teams Cartographic Drafter Relationship Specialty Start Date End Date Karie Lindsey APRN [address] [place] [address] PCP - General Internal Medicine 04/02/24 documented as of this encounter
--- OUTSIDE RECORDS SUMMARY | 2024-06-19 15:12 | XMS_ITS | Encounter Summary ---
Author Organization [facility] [place] [address] Care Team Providers Care Benefits Counselor Name Role Phone Jose Pittman Primary Care Provider [phone] Reason for Referral * Consultation (Routine) - Closed Specialty Diagnoses / Procedures Referred By Chip t Referred To Contact Cardiology Diagnoses Elevated troponin Elevated troponin Giselle Cervantes APRN [address] [place] [address] [facility] [address] [place] [phone] Referral ID Status Reason Start Date Expiration Date V isits Requested Visits Authorized [id number] Closed Consult, Test & Treat PCP Updated and/or Approved 01/30/2022 01/30/2023 6 6 Encounter Details Date Type Department Care Team (Late st Contact Info) Description 01/30/2022 Transcribe Orders eDH Incoming Referrals [phone] Giselle Cervantes APRN [address] [place], [place] [id number] Elevated troponin Social History Tobacco Use Types [...] chemistry documented in this encounter Care Teams Benefits Counselor Relationship Specialty Start Date End Date Jose Pittman PA [address] [place] [address] PCP - General Internal Medicine 01/30/22 04/01/24 documented as of this encounter
--- OUTSIDE RECORDS SUMMARY | 2024-06-19 15:12 | XMS_ITS | Data Portability ---
Author Organization [place] - [facility] [place] [address] [place] [address] Care Team Providers Care Genetic Engineer Name Role Phone NAVIN PITTMAN Primary Care Provider ROCK RAMIREZ Senior Linux Systems Engineer [facility] Endocrinologis t [facility] Cutting Room Supervisor MAXIMILIANO SADE CHRONIC STOCK REPLENISHER Radiator Core Tester Assessment Encounter Date Assessment Date Assessment LastModified by Organization Details LastModified Time 09/25/2023 09/25/2023 Kailey's chronic medical issues appear stable. Unfortunately we are unable to download her CGM data today. We will try to get this next week. No changes to medication management were made today. She has cardiology follow-up this summer. She has been referred to [facility]NT for consideration of left ear [...] [address] [facility], [address], [place], [address], 11:46:21 metoprolol succinate ER 25 mg tablet,exte nded release 24 hr 2023 024 [address] [facility], [address] [place], [address], 13:59:01 Patient TargetsNo targets recorded. Patient Instructions Encounter Date Encounter Id Patient Instructions Last Modified By Organization Details Last Modified Time 09/25/2023 [id number] Kailey Shanks I will get in touch with Lucia so she can download your blood sugars next week. [email or web address] Not available 09/25/2023 10:01:34 12/22/2023 [id number] Kailey - slowly titrate your basaglar by [...] ser 342 mg/dL 74-106 high Not Available [facility] [address], [place], [address], 03/04/2024 03:12:18 06/11/2006/11/2023 creat inine , urine [...] 10_3/ uL 4.4-10 .8 normal Not Available [address] [place], [address] 07/05/2023 12:04:31 07/05/20 23 07/05/2023 COMPL ETE BLOOD COUNT W/DIF F RBC 4.52 10_6/ uL 3.93-5 .22 normal Not Available [address] [place], [address] 07/05/2023 12:04:31 07/05/20 23 07/05/2023 COMPL ETE BLOOD COUNT W/DIF F HGB 13.9 g/dL 11.2-1 5.7 normal Not Available [address] [place], [address] 07/05/2023 12:04:31 07/05/20 23 07/05/2023 COMPL ETE BLOOD COUNT W/DIF F HCT 40.3 % 36.0-4 6.0 normal Not Available [address] [place], [address] 07/05/2023 12:04:31 07/05/20 23 07/05/2023 COMPL ETE BLOOD COUNT W/DIF F MCV 89 fL 80-95 normal Not Available [address] [place], [address] 07/05/2023 12:04:31 07/05/20 23 07/05/2023 COMPL ETE BLOOD COUNT W/DIF F MCH 30.8 pg 27.0-3 3.0 normal Not Available [address] [place], [address] 07/05/2023 12:04:31 07/05/20 23 07/05/2023 COMPL ETE BLOOD COUNT W/DIF F MCHC 34.5 % 32.0-3 6.0 normal Not Available [address] [place], [address] 07/05/2023 12:04:31 07/05/20 23 07/05/2023 COMPL ETE BLOOD COUNT W/DIF F RDW 11.9 % 11.7-1 4.6 normal Not Available [address] [place], [address] 07/05/2023 12:04:31 07/05/20 23 07/05/2023 COMPL ETE BLOOD COUNT W/DIF F platelet count 204 10_3/ uL 130-40 0 normal Not Available [address] [place], [address] 07/05/2023 12:04:31 07/05/20 23 07/05/2023 COMPL ETE BLOOD COUNT W/DIF F MPV 9.6 fL 8.0-11 .0 normal Not Available [address] [place], [address] 07/05/2023 12:04:31 07/05/20 23 07/05/2023 COMPL ETE BLOOD COUNT W/DIF F neutrophils % 54.7 Not Available [address] [place], [address] 07/05/2023 12:04:31 07/05/20 23 07/05/2023 COMPL ETE BLOOD COUNT W/DIF F lymphocytes % 33.7 Not Available [address] [place], [address] 07/05/2023 12:04:31 07/05/20 23 07/05/2023 COMPL ETE BLOOD COUNT W/DIF F monocytes % 9.3 Not Available [address] [place], [address] 07/05/2023 12:04:31 07/05/20 23 07/05/2023 COMPL ETE BLOOD COUNT W/DIF F eosinophils % 1.5 Not Available [address] [place], [address] 07/05/2023 12:04:31 07/05/20 23 07/05/2023 COMPL ETE BLOOD COUNT W/DIF F basophils % 0.5 Not Available [address] [place], [address] 07/05/2023 12:04:31 07/05/20 23 07/05/2023 COMPL ETE BLOOD COUNT W/DIF F immature grans % 0.3 Not Available [address] [place], [address] 07/05/2023 12:04:31 07/05/20 23 07/05/2023 COMPL ETE BLOOD COUNT W/DIF F nucleated RBC 0.0 % 0.0-0. 3 normal Not Available [address] [place], [address] 07/05/2023 12:04:31 07/05/20 23 07/05/2023 COMPL ETE BLOOD COUNT W/DIF F absolute neutrophil count 3.53 10_3/ uL 1.2-6. 7 normal Not Available [address] [place], [address] 07/05/2023 12:04:31 07/05/20 23 07/05/2023 COMPL ETE BLOOD COUNT W/DIF F absolute lymphocyte count 2.18 10_3/ uL 1.2-3. 4 normal Not Available [address] [place], [address] 07/05/2023 12:04:31 07/05/20 23 07/05/2023 COMPL ETE BLOOD COUNT W/DIF F absolute monocyte count 0.60 10_3/ uL 0.1-0. 8 normal Not Available [address] [place], [address] 07/05/2023 12:04:31 07/05/20 23 07/05/2023 COMPL ETE BLOOD COUNT W/DIF F absolute eosinophil count 0.10 10_3/ uL 0.0-0. 7 normal Not Available [address] [place], [address] 07/05/2023 12:04:31 07/05/20 23 07/05/2023 COMPL ETE BLOOD COUNT W/DIF F absolute basophil count 0.03 10_3/ uL 0.0-0. 2 normal Not Available [address] [place], [address] 07/05/2023 12:04:31 07/05/20 23 07/05/2023 NGOZI IA ammonia < 10 umol/ L 11-32 low Not Available [address] [place], [address] 07/05/2023 12:13:31 07/05/20 23 07/05/2023 PROTH ROMBI N TIME prothrombin time 10.6 sec 9.1-11 .1 normal Not Available [address] [place], [address] 07/05/2023 12:39:32 07/05/20 23 07/05/2023 PROTH ROMBI N TIME INR 1.1 0.9-1. 1 normal Recom celia d INR thera peuti c range s for orall y admin ister ed drugs are as follo ws: -Barry dard Inten sity 2.0 to 3.0 -High er Inten sity 3.0 to 4.5 Not Available [address] [place], [address] 07/05/2023 12:39:32 07/05/20 23 07/05/2023 D-DIM ER D-dimer 767 NG/ml feu <500 high *Lite ratur e suppo rts the exclu marysol of DVT and/o r PE with a resul t less than 500 ng/ml FEU with this metho d.* Not Available [address] [place], [address] 07/05/2023 12:39:32 07/05/20 23 07/05/2023 COMPR EHENS JES METAB OLIC PANEL calcium 9.2 mg/dL 8.5-10 .1 normal Not Available [address] [place], [address] 07/05/2023 12:41:33 07/05/20 23 07/05/2023 COMPR EHENS JES METAB OLIC PANEL glucose 289 mg/dL 74-106 high Not Available Kalpesh casillas [address] [place], [address] 07/05/2023 12:41:33 07/05/20 23 07/05/2023 COMPR EHENS JES METAB OLIC PANEL BUN 16 mg/dL 7-18 normal Not Available Kalpesh casillas [address] [place], [address] 07/05/2023 12:41:33 07/05/20 23 07/05/2023 COMPR EHENS JES METAB OLIC PANEL creatinine 0.9 mg/dL 0.55-1 .02 normal Not Available [address] [place], [address] 07/05/2023 12:41:33 07/05/20 23 07/05/2023 COMPR EHENS [...] young er-ag ed adult s. Not Available [address] [place], [address] 07/05/2023 12:41:33 07/05/20 23 07/05/2023 COMPR EHENS JES METAB OLIC PANEL total protein 7.6 g/dL 6.4-8. 2 normal Not Available [address] [place], [address] 07/05/2023 12:41:33 07/05/20 23 07/05/2023 COMPR EHENS JES METAB OLIC PANEL albumin 3.7 g/dL 3.4-5. 0 normal Not Available [address] [place], [address] 07/05/2023 12:41:33 07/05/20 23 07/05/2023 COMPR EHENS JES METAB OLIC PANEL bilirubin, total 0.5 mg/dL 0.2-1. 0 normal Not Available [address] [place], [address] 07/05/2023 12:41:33 07/05/20 23 07/05/2023 COMPR EHENS JES METAB OLIC PANEL alk phos 109 U/L 46-116 normal Not Available [address] [place], [address] 07/05/2023 12:41:33 07/05/20 23 07/05/2023 COMPR EHENS JES METAB OLIC PANEL sodium 135 mmol/ L 136-14 5 low Not Available [address] [place], [address] 07/05/2023 12:41:33 07/05/20 23 07/05/2023 COMPR EHENS JES METAB OLIC PANEL potassium 4.8 mmol/ L 3.5-5. 1 normal Not Available [address] [place], [address] 07/05/2023 12:41:33 07/05/20 23 07/05/2023 COMPR EHENS JES METAB OLIC PANEL chloride 100 mmol/ L 98-107 normal Not Available [address] [place], [address] 07/05/2023 12:41:33 07/05/20 23 07/05/2023 COMPR EHENS JES METAB OLIC PANEL CO2 31.1 mmol/ L 21.0-3 2.0 normal Not Available [address] [place], [address] 07/05/2023 12:41:33 07/05/2007/05/2023 COMPR EHENS JES METAB OLIC PANEL anion gap 3.9 mmol/ L 3-11 normal Not Available [address] [place], [address] 07/05/2023 12:41:33 07/05/20 23 07/05/2023 COMPR EHENS JES METAB OLIC PANEL AST 34 U/L 15-37 normal Not Available Kalpesh [address] [place], [address] 07/05/2023 12:41:33 07/05/2007/05/2023 COMPR EHENS JES METAB OLIC PANEL ALT 51 U/L 14-59 normal Not Available Kalpesh [address] [place], [address] 07/05/2023 12:41:33 07/05/2007/05/2023 ETHYL ALCOH OL ethyl alcohol < 3.0 mg/dL <10 ETOH Refer ence Range = <10 mg/dL Legal Limit of Intox icati on is 80 mg/dL This test is inten ded only for Medic al purpo ses. Divid e resul t by 1000 to conve rt to %(w/v ) Not Available [address] [place], [address] 07/05/2023 12:41:34 07/05/20 23 07/05/2023 HCG QUANT [...] Month s 10,00 0-100 ,000 Not Available [address] [place], [address] 07/05/2023 12:41:34 07/05/20 23 07/05/2023 MAGNE SIUM magnesium 2.1 mg/dL 1.8-2. 4 normal Not Available [address] [place], [address] 07/05/2023 12:41:34 07/05/20 23 07/05/2023 TSH (W/RE F FT4) TSH (w/ref FT4) 0.80 uIU/m L 0.36-3 .74 normal NOTE: Supra -phys iolog ic doses of Bioti n(B7) may cause false negat jes resul ts. Not Available [address] [place], [address] 07/05/2023 12:41:35 07/05/20 23 07/05/2023 CARDI AC TROPO KANWAL I cardiac troponin I < 50 NG/L <or=60 Not Available [address], [address] 07/05/2023 12:41:35 07/05/20 23 07/05/2023 URINA LYSIS color Yellow yellow Not Available Kalpesh casillas [address] [place], [address] 07/05/2023 14:53:39 07/05/20 23 07/05/2023 URINA LYSIS clarity Clear clear Not Available Kalpesh casillas [address] [place], [address] 07/05/2023 14:53:39 07/05/20 23 07/05/2023 URINA LYSIS specific gravity 1.015 1.005- 1.025 normal Not Available [address] [place], [address] 07/05/2023 14:53:39 07/05/20 23 07/05/2023 URINA LYSIS pH 7.5 5-8 normal Not Available Kalpesh casillas [address] [place], [address] 07/05/2023 14:53:39 07/05/20 23 07/05/2023 URINA LYSIS leukocyte esterase Trace negati ve abnormal Not Available [address] [place], [address] 07/05/2023 14:53:39 07/05/20 23 07/05/2023 URINA LYSIS nitrite Negati ve negati ve Not Available [address] [place], [address] 07/05/2023 14:53:39 07/05/20 23 07/05/2023 URINA LYSIS protein Negati ve mg/dL negati ve Not Available [address] [place], [address] 07/05/2023 14:53:39 07/05/20 23 07/05/2023 URINA LYSIS glucose 250 mg/dL negati ve abnormal Not Available [address] [place], [address] 07/05/2023 14:53:39 07/05/20 23 07/05/2023 URINA LYSIS ketones Negati ve mg/dL negati ve Not Available [address] [place], [address] 07/05/2023 14:53:39 07/05/20 23 07/05/2023 URINA LYSIS urobilinogen 0.2 mg/dL up to 0.2 Not Available [address] [place], [address] 07/05/2023 14:53:39 07/05/20 23 07/05/2023 URINA LYSIS bilirubin Negati ve negati ve Not Available [address] [place], [address] 07/05/2023 14:53:39 07/05/20 23 07/05/2023 URINA LYSIS blood Negati ve negati ve Not Available [address] [place], [address] 07/05/2023 14:53:39 07/05/20 23 07/05/2023 CARDI AC TROPO KANWAL I cardiac troponin I < 50 NG/L <or=60 Not Available [address], [address] 07/05/2023 15:02:41 07/05/20 23 07/05/2023 URINA LYSIS color Yellow yellow Not Available Kalpesh casillas [address] [place], [address] 07/05/2023 15:03:40 07/05/20 23 07/05/2023 URINA LYSIS clarity Clear clear Not Available Kalpesh casillas [address] [place], [address] 07/05/2023 15:03:40 07/05/20 23 07/05/2023 URINA LYSIS specific gravity 1.015 1.005- 1.025 normal Not Available [address] [place], [address] 07/05/2023 15:03:40 07/05/20 23 07/05/2023 URINA LYSIS pH 7.5 5-8 normal Not Available Kalpesh casillas [address] [place], [address] 07/05/2023 15:03:40 07/05/20 23 07/05/2023 URINA LYSIS leukocyte esterase Trace negati ve abnormal Not Available [address] [place], [address] 07/05/2023 15:03:40 07/05/20 23 07/05/2023 URINA LYSIS nitrite Negati ve negati ve Not Available [address] [place], [address] 07/05/2023 15:03:40 07/05/20 23 07/05/2023 URINA LYSIS protein Negati ve mg/dL negati ve Not Available [address] [place], [address] 07/05/2023 15:03:40 07/05/20 07/05/2023 URINA LYSIS glucose 250 mg/dL negati ve abnormal Not Available [address] [place], [address] 07/05/2023 15:03:40 07/05/20 23 07/05/2023 URINA LYSIS ketones Negati ve mg/dL negati ve Not Available [address] [place], [address] 07/05/2023 15:03:40 07/05/20 23 07/05/2023 URINA LYSIS urobilinogen 0.2 mg/dL up to 0.2 Not Available [address] [place], [address] 07/05/2023 15:03:40 07/05/20 23 07/05/2023 URINA LYSIS bilirubin Negati ve negati ve Not Available [address] [place], [address] 07/05/2023 15:03:40 07/05/20 23 07/05/2023 URINA LYSIS blood Negati ve negati ve Not Available [address] [place], [address] 07/05/2023 15:03:40 07/05/20 23 07/05/2023 MICRO SCOPI C FINDI NGS WBC 0-2 hpf 0-5 Not Available Kalpesh casillas [address] [place], [address] 07/05/2023 15:03:40 07/05/20 23 07/05/2023 MICRO SCOPI C FINDI NGS RBC Negati ve hpf 0-2 Not Available Bettie suárez [address] [place], [address] 07/05/2023 15:03:40 07/05/20 23 07/05/2023 MICRO SCOPI C FINDI NGS epithelial cells Rare hpf negati ve Not Available [address] [place], [address] 07/05/2023 15:03:40 07/05/20 23 07/05/2023 MICRO SCOPI C FINDI NGS bacteria Rare hpf negati ve Not Available [address] [place], [address] 07/05/2023 15:03:40 07/05/20 23 07/05/2023 MICRO SCOPI C FINDI NGS crystals Negati ve hpf negati ve Not Available [address] [place], [address] 07/05/2023 15:03:40 07/05/20 23 07/05/2023 MICRO SCOPI C FINDI NGS mucus Negati ve negati ve Not Available [address] [place], [address] 07/05/2023 15:03:40 07/05/20 23 07/05/2023 MICRO SCOPI C FINDI NGS casts Negati ve lpf negati ve Not Available [address] [place], [address] 07/05/2023 15:03:40 07/05/20 23 07/05/2023 MICRO SCOPI C FINDI NGS C S indicated? Yes Not Available [address] [place], [address] 07/05/2023 15:03:40 07/05/20 23 07/06/2023 URINE CULTU RE urine culture Urine Cultu re Proba ble conta minat ed colle ction APPEA IVETTE Mixed Gram Posit jes Alta COLON Y COUNT Not Available [address] [place], [address] 07/06/2023 07:38:39 07/05/20 23 07/06/2023 URINE CULTU RE urine culture colon ies/m L 10,00 0 - 50,00 0 Day 1 Resul t ISOLA ANETA BELOW O:GPF M (ORGA NISM ID: [id number]) - GRAM POSIT JES ALTA ,MIXE D Urine Cultu re (ORGA NISM ID: 1.1) - COLON Y COUNT (ORGA NISM ID: 1.1) - 10,00 0 - 50,00 0 Not Available [address] [place], [address] 07/06/2023 07:38:39 07/05/20 23 07/07/2023 URINE CULTU RE urine culture Urine Cultu re Proba ble conta minat ed colle ction APPEA IVETTE Mixed Gram Posit jes Alta APPEA IVETTE Mixed Gram Posit jes Alta COLON Y COUNT Not Available [address] [place], [address] 07/07/2023 07:47:12 07/05/20 23 07/07/2023 URINE CULTU [...] 10,00 0 - 50,00 0 Not Available [address] [place], [address] 07/07/2023 07:47:12 08/21/19 24 08/21/2023 COMPL ETE BLOOD COUNT W/DIF F WBC 7.04 10_3/ uL 4.4-10 .8 normal Not Available [address] [place], [address] 08/21/2023 22:28:59 08/21/19 24 08/21/2023 COMPL ETE BLOOD COUNT W/DIF F RBC 4.44 10_6/ uL 3.93-5 .22 normal Not Available [address] [place], [address] 08/21/2023 22:28:59 08/21/19 24 08/21/2023 COMPL ETE BLOOD COUNT W/DIF F HGB 13.6 g/dL 11.2-1 5.7 normal Not Available [address] [place], [address] 08/21/2023 22:28:59 08/21/19 24 08/21/2023 COMPL ETE BLOOD COUNT W/DIF F HCT 39.8 % 36.0-4 6.0 normal Not Available [address] [place], [address] 08/21/2023 22:28:59 08/21/19 24 08/21/2023 COMPL ETE BLOOD COUNT W/DIF F MCV 90 fL 80-95 normal Not Available Kalpesh [address] [place], [address] 08/21/2023 22:28:59 08/21/19 24 08/21/2023 COMPL ETE BLOOD COUNT W/DIF F MCH 30.6 pg 27.0-3 3.0 normal Not Available [address] [place], [address] 08/21/2023 22:28:59 08/21/19 24 08/21/2023 COMPL ETE BLOOD COUNT W/DIF F MCHC 34.2 % 32.0-3 6.0 normal Not Available [address] [place], [address] 08/21/2023 22:28:59 08/21/19 24 08/21/2023 COMPL ETE BLOOD COUNT W/DIF F RDW 12.3 % 11.7-1 4.6 normal Not Available [address] [place], [address] 08/21/2023 22:28:59 08/21/19 24 08/21/2023 COMPL ETE BLOOD COUNT W/DIF F platelet count 181 10_3/ uL 130-40 0 normal Not Available [address] [place], [address] 08/21/2023 22:28:59 08/21/19 24 08/21/2023 COMPL ETE BLOOD COUNT W/DIF F MPV 9.5 fL 8.0-11 .0 normal Not Available [address] [place], [address] 08/21/2023 22:28:59 08/21/19 24 08/21/2023 COMPL ETE BLOOD COUNT W/DIF F neutrophils % 77.5 Not Available Blancharddagoberto iglesias [address] [place], [address] 08/21/2023 22:28:59 08/21/19 24 08/21/2023 COMPL ETE BLOOD COUNT W/DIF F lymphocytes % 15.2 Not Available Kole iglesias [address] [place], [address] 08/21/2023 22:28:59 08/21/19 24 08/21/2023 COMPL ETE BLOOD COUNT W/DIF F monocytes % 6.1 Not Available [address] [place], [address] 08/21/2023 22:28:59 08/21/19 24 08/21/2023 COMPL ETE BLOOD COUNT W/DIF F eosinophils % 0.4 Not Available [address] [place], [address] 08/21/2023 22:28:59 08/21/19 24 08/21/2023 COMPL ETE BLOOD COUNT W/DIF F basophils % 0.4 Not Available [address] [place], [address] 08/21/2023 22:28:59 08/21/19 24 08/21/2023 COMPL ETE BLOOD COUNT W/DIF F immature grans % 0.4 Not Available [address] [place], [address] 08/21/2023 22:28:59 08/21/19 24 08/21/2023 COMPL ETE BLOOD COUNT W/DIF F nucleated RBC 0.0 % 0.0-0. 3 normal Not Available [address] [place], [address] 08/21/2023 22:28:59 08/21/19 24 08/21/2023 COMPL ETE BLOOD COUNT W/DIF F absolute neutrophil count 5.45 10_3/ uL 1.2-6. 7 normal Not Available [address] [place], [address] 08/21/2023 22:28:59 08/21/19 24 08/21/2023 COMPL ETE BLOOD COUNT W/DIF F absolute lymphocyte count 1.07 10_3/ uL 1.2-3. 4 low Not Available [address] [place], [address] 08/21/2023 22:28:59 08/21/19 24 08/21/2023 COMPL ETE BLOOD COUNT W/DIF F absolute monocyte count 0.43 10_3/ uL 0.1-0. 8 normal Not Available [address] [place], [address] 08/21/2023 22:28:59 08/21/19 24 08/21/2023 COMPL ETE BLOOD COUNT W/DIF F absolute eosinophil count 0.03 10_3/ uL 0.0-0. 7 normal Not Available [address] [place], [address] 08/21/2023 22:28:59 08/21/19 24 08/21/2023 COMPL ETE BLOOD COUNT W/DIF F absolute basophil count 0.03 10_3/ uL 0.0-0. 2 normal Not Available [address] [place], [address] 08/21/2023 22:28:59 08/21/19 24 08/21/2023 COMPR EHENS JES METAB OLIC PANEL calcium 9.8 mg/dL 8.5-10 .1 normal Not Available [address] [place], [address] 08/21/2023 22:58:02 08/21/19 24 08/21/2023 COMPR EHENS JES METAB OLIC PANEL glucose 207 mg/dL 74-106 high Not Available Kalpesh casillas [address] [place], [address] 08/21/2023 22:58:02 08/21/19 24 08/21/2023 COMPR EHENS JES METAB OLIC PANEL BUN 17 mg/dL 7-18 normal Not Available Kalpesh casillas [address] [place], [address] 08/21/2023 22:58:02 08/21/19 24 08/21/2023 COMPR EHENS JES METAB OLIC PANEL creatinine 0.9 mg/dL 0.55-1 .02 normal Not Available [address] [place], [address] 08/21/2023 22:58:02 08/21/19 24 08/21/2023 COMPR EHENS [...] young er-ag ed adult s. Not Available [address] [place], [address] 08/21/2023 22:58:02 08/21/19 24 08/21/2023 COMPR EHENS JES METAB OLIC PANEL total protein 8.1 g/dL 6.4-8. 2 normal Not Available [address] [place], [address] 08/21/2023 22:58:02 08/21/19 24 08/21/2023 COMPR EHENS JES METAB OLIC PANEL albumin 4.0 g/dL 3.4-5. 0 normal Not Available [address] [place], [address] 08/21/2023 22:58:02 08/21/19 24 08/21/2023 COMPR EHENS JES METAB OLIC PANEL bilirubin, total 0.7 mg/dL 0.2-1. 0 normal Not Available [address] [place], [address] 08/21/2023 22:58:02 08/21/19 24 08/21/2023 COMPR EHENS JES METAB OLIC PANEL alk phos 104 U/L 46-116 normal Not Available [address] [place], [address] 08/21/2023 22:58:02 08/21/19 24 08/21/2023 COMPR EHENS JSE METAB OLIC PANEL sodium 137 mmol/ L 136-14 5 normal Not Available [address] [place], [address] 08/21/2023 22:58:02 08/21/19 24 08/21/2023 COMPR EHENS JES METAB OLIC PANEL potassium 4.3 mmol/ L 3.5-5. 1 normal Not Available [address] [place], [address] 08/21/2023 22:58:02 08/21/19 24 08/21/2023 COMPR EHENS JES METAB OLIC PANEL chloride 100 mmol/ L 98-107 normal Not Available [address] [place], [address] 08/21/2023 22:58:02 08/21/19 24 08/21/2023 COMPR EHENS JES METAB OLIC PANEL CO2 30.1 mmol/ L 21.0-3 2.0 normal Not Available [address] [place], [address] 08/21/2023 22:58:02 08/21/19 24 08/21/2023 COMPR EHENS JES METAB OLIC PANEL anion gap 6.9 mmol/ L 3-11 normal Not Available [address] [place], [address] 08/21/2023 22:58:02 08/21/19 24 08/21/2023 COMPR EHENS JES METAB OLIC PANEL AST 32 U/L 15-37 normal Not Available Kalpesh [address] [place], [address] 08/21/2023 22:58:02 08/21/19 24 08/21/2023 COMPR EHENS JES METAB OLIC PANEL ALT 47 U/L 14-59 normal Not Available Kalpesh [place]illas [address] [place], [address] 08/21/2023 22:58:02 08/21/1908/21/2023 ETHYL ALCOH OL ethyl [...] conve rt to %(w/v ) Not Available [address] [place], [address] 08/21/2023 22:58:03 08/21/19 24 08/21/2023 MAGNE SIUM magnesium 2.1 mg/dL 1.8-2. 4 normal Not Available [address] [place], [address] 08/21/2023 22:58:04 08/21/19 24 08/21/2023 CARDI AC TROPO KANWAL I cardiac troponin I < 50 NG/L < or =60 Not Available [address] [place], [address] 08/21/2023 22:58:05 08/22/19 24 08/22/2023 URINE DRUG SCREE N ([facility] ) methadone Negati ve negati ve Not Available [address] [place], [address] 08/22/2023 00:55:06 08/22/19 24 08/22/2023 URINE DRUG SCREE N ([facility] ) benzodiazepi yoselyn Negati ve negati ve Benzo diaze pines are exten sivel y metab olize d and the paren t compo und may not be detec tarsha in urine . If clini elizabeth suspi cion is high, pleas e notif y Lab for send- out testi ng. Not Available [address] [place], [address] 08/22/2023 00:55:06 08/22/19 24 08/22/2023 URINE DRUG SCREE N ([facility] ) cocaine Negati ve negati ve Not Available [address] [place], [address] 08/22/2023 00:55:06 08/22/19 24 08/22/2023 URINE DRUG SCREE N ([facility] ) amphetamines Negati ve negati ve Not Available [address] [place], [address] 08/22/2023 00:55:06 08/22/19 24 08/22/2023 URINE DRUG SCREE N ([facility] ) tetrahydroca nnabinol Positi ve negati ve abnormal Not Available [address] [place], [address] 08/22/2023 00:55:06 08/22/19 24 08/22/2023 URINE DRUG SCREE N ([facility] ) opiates Negati ve negati ve Not Available [address] [place], [address] 08/22/2023 00:55:06 08/22/19 24 08/22/2023 URINE DRUG SCREE N ([facility] ) barbiturates Negati ve negati ve Not Available [address] [place], [address] 08/22/2023 00:55:06 08/22/19 24 08/22/2023 URINE DRUG [...] tion of these resul ts. Not Available [address] [place], [address] 08/22/2023 00:55:06 12/07/19 24 12/07/2023 COMPL ETE BLOOD COUNT W/DIF F WBC 5.74 10_3/ uL 4.4-10 .8 normal Not Available [address] [place], [address] 12/07/2023 13:34:31 12/07/19 24 12/07/2023 COMPL ETE BLOOD COUNT W/DIF F RBC 4.11 10_6/ uL 3.93-5 .22 normal Not Available [address] [place], [address] 12/07/2023 13:34:31 12/07/19 24 12/07/2023 COMPL ETE BLOOD COUNT W/DIF F HGB 12.7 g/dL 11.2-1 5.7 normal Not Available [address] [place], [address] 12/07/2023 13:34:31 12/07/19 24 12/07/2023 COMPL ETE BLOOD COUNT W/DIF F HCT 37.6 % 36.0-4 6.0 normal Not Available [address] [place], [address] 12/07/2023 13:34:31 12/07/19 24 12/07/2023 COMPL ETE BLOOD COUNT W/DIF F MCV 92 fL 80-95 normal Not Available [address] [place], [address] 12/07/2023 13:34:31 12/07/19 24 12/07/2023 COMPL ETE BLOOD COUNT W/DIF F MCH 30.9 pg 27.0-3 3.0 normal Not Available [address] [place], [address] 12/07/2023 13:34:31 12/07/19 24 12/07/2023 COMPL ETE BLOOD COUNT W/DIF F MCHC 33.8 % 32.0-3 6.0 normal Not Available [address] [place], [address] 12/07/2023 13:34:31 12/07/19 24 12/07/2023 COMPL ETE BLOOD COUNT W/DIF F RDW 12.2 % 11.7-1 4.6 normal Not Available [address] [place], [address] 12/07/2023 13:34:31 12/07/19 24 12/07/2023 COMPL ETE BLOOD COUNT W/DIF F platelet count 178 10_3/ uL 130-40 0 normal Not Available [address] [place], [address] 12/07/2023 13:34:31 12/07/19 24 12/07/2023 COMPL ETE BLOOD COUNT W/DIF F MPV 9.6 fL 8.0-11 .0 normal Not Available [address] [place], [address] 12/07/2023 13:34:31 12/07/19 24 12/07/2023 COMPL ETE BLOOD COUNT W/DIF F neutrophils % 55.2 % Not Available [address] [place], [address] 12/07/2023 13:34:31 12/07/19 24 12/07/2023 COMPL ETE BLOOD COUNT W/DIF F lymphocytes % 34.0 % Not Available [address] [place], [address] 12/07/2023 13:34:31 12/07/19 24 12/07/2023 COMPL ETE BLOOD COUNT W/DIF F monocytes % 8.9 % Not Available [address] [place], [address] 12/07/2023 13:34:31 12/07/19 24 12/07/2023 COMPL ETE BLOOD COUNT W/DIF F eosinophils % 0.9 % Not Available [address] [place], [address] 12/07/2023 13:34:31 12/07/19 24 12/07/2023 COMPL ETE BLOOD COUNT W/DIF F basophils % 0.7 % Not Available [address] [place], [address] 12/07/2023 13:34:31 12/07/19 24 12/07/2023 COMPL ETE BLOOD COUNT W/DIF F immature grans % 0.3 % Not Available [address] [place], [address] 12/07/2023 13:34:31 12/07/19 24 12/07/2023 COMPL ETE BLOOD COUNT W/DIF F nucleated RBC 0.0 % 0.0-0. 3 normal Not Available [address] [place], [address] 12/07/2023 13:34:31 12/07/19 24 12/07/2023 COMPL ETE BLOOD COUNT W/DIF F absolute neutrophil count 3.17 10_3/ uL 1.2-6. 7 normal Not Available [address] [place], [address] 12/07/2023 13:34:31 12/07/19 24 12/07/2023 COMPL ETE BLOOD COUNT W/DIF F absolute lymphocyte count 1.95 10_3/ uL 1.2-3. 4 normal Not Available [address] [place], [address] 12/07/2023 13:34:31 12/07/19 24 12/07/2023 COMPL ETE BLOOD COUNT W/DIF F absolute monocyte count 0.51 10_3/ uL 0.1-0. 8 normal Not Available [address] [place], [address] 12/07/2023 13:34:31 12/07/19 24 12/07/2023 COMPL ETE BLOOD COUNT W/DIF F absolute eosinophil count 0.05 10_3/ uL 0.0-0. 7 normal Not Available [address] [place], [address] 12/07/2023 13:34:31 12/07/19 24 12/07/2023 COMPL ETE BLOOD COUNT W/DIF F absolute basophil count 0.04 10_3/ uL 0.0-0. 2 normal Not Available [address] [place], [address] 12/07/2023 13:34:31 12/07/19 24 12/07/2023 COMPR EHENS JES METAB OLIC PANEL calcium 9.1 mg/dL 8.5-10 .1 normal Not Available [address] [place], [address] 12/07/2023 13:53:40 12/07/19 24 12/07/2023 COMPR EHENS JES METAB OLIC PANEL glucose 154 mg/dL 74-106 high Not Available Kalpesh [address] [place], [address] 12/07/2023 13:53:40 12/07/19 24 12/07/2023 COMPR EHENS JES METAB OLIC PANEL BUN 21 mg/dL 7-18 high Not Available Kalpesh casillas [address] [place], [address] 12/07/2023 13:53:40 12/07/19 24 12/07/2023 COMPR EHENS JES METAB OLIC PANEL creatinine 0.9 mg/dL 0.55-1 .02 normal Not Available [address] [place], [address] 12/07/2023 13:53:40 12/07/19 24 12/07/2023 COMPR EHENS [...] young er-ag ed adult s. Not Available [address] [place], [address] 12/07/2023 13:53:40 12/07/19 24 12/07/2023 COMPR EHENS JES METAB OLIC PANEL total protein 7.1 g/dL 6.4-8. 2 normal Not Available [address] [place], [address] 12/07/2023 13:53:40 12/07/19 24 12/07/2023 COMPR EHENS JES METAB OLIC PANEL albumin 3.5 g/dL 3.4-5. 0 normal Not Available [address] [place], [address] 12/07/2023 13:53:40 12/07/19 24 12/07/2023 COMPR EHENS JES METAB OLIC PANEL bilirubin, total 0.6 mg/dL 0.2-1. 0 normal Not Available [address] [place], [address] 12/07/2023 13:53:40 12/07/19 24 12/07/2023 COMPR EHENS JES METAB OLIC PANEL alk phos 106 U/L 46-116 normal Not Available [address] [place], [address] 12/07/2023 13:53:40 12/07/19 24 12/07/2023 COMPR EHENS JES METAB OLIC PANEL sodium 139 mmol/ L 136-14 5 normal Not Available [address] [place], [address] 12/07/2023 13:53:40 12/07/19 24 12/07/2023 COMPR EHENS JES METAB OLIC PANEL potassium 4.4 mmol/ L 3.5-5. 1 normal Not Available [address] [place], [address] 12/07/2023 13:53:40 12/07/19 24 12/07/2023 COMPR EHENS JES METAB OLIC PANEL chloride 104 mmol/ L 98-107 normal Not Available [address] [place], [address] 12/07/2023 13:53:40 12/07/19 24 12/07/2023 COMPR EHENS JES METAB OLIC PANEL CO2 29.8 mmol/ L 21.0-3 2.0 normal Not Available [address] [place], [address] 12/07/2023 13:53:40 12/07/19 24 12/07/2023 COMPR EHENS JES METAB OLIC PANEL anion gap 5.2 mmol/ L 3-11 normal Not Available [address] [place], [address] 12/07/2023 13:53:40 12/07/19 24 12/07/2023 COMPR EHENS JES METAB OLIC PANEL AST 39 U/L 15-37 high Not Available [address] [place], [address] 12/07/2023 13:53:40 12/07/19 24 12/07/2023 COMPR EHENS JES METAB OLIC PANEL ALT 48 U/L 14-59 normal Not Available Kalpesh casillas [address] [place], [address] 12/07/2023 13:53:40 12/07/19 24 12/07/2023 TROPO KANWAL I troponin I < 50 NG/L < or =60 Not Available [address] [place], [address] 12/07/2023 13:53:40 12/07/19 24 12/07/2023 PROTH ROMBI N TIME prothrombin time 10.9 sec 9.1-11 .1 normal Not Available [address] [place], [address] 12/07/2023 14:14:40 12/07/19 24 12/07/2023 PROTH ROMBI N TIME INR 1.1 0.9-1. 1 normal Recom celia d INR thera peuti c range s for orall y admin ister ed drugs are as follo ws: -[place] Inten sity 2.0 to 3.0 -High er Inten sity 3.0 to 4.5 Not Available [address] [place], [address] 12/07/2023 14:14:40 12/07/19 24 12/07/2023 PTT ACTIV ATED PTT activated 23.4 sec 23.6-3 2.8 low Hepar in Thera peuti c Range for PTT = 52-84 secon ds New Hepar in Thera peuti c Range 09/08 Not Available [address] [place], [address] 12/07/2023 14:14:41 12/07/19 24 12/07/2023 TROPO KANWAL I troponin I < 50 NG/L < or =60 Not Available [address] [place], [address] 12/07/2023 16:25:17 02/15/20 24 02/15/2024 COMPL ETE BLOOD COUNT W/DIF F WBC 4.55 10_3/ uL 4.4-10 .8 normal Not Available [address] [place], [address] 02/15/2024 10:39:22 02/15/20 24 02/15/2024 COMPL ETE BLOOD COUNT W/DIF F RBC 4.67 10_6/ uL 3.93-5 .22 normal Not Available [address] [place], [address] 02/15/2024 10:39:22 02/15/20 24 02/15/2024 COMPL ETE BLOOD COUNT W/DIF F HGB 14.3 g/dL 11.2-1 5.7 normal Not Available [address] [place], [address] 02/15/2024 10:39:22 02/15/20 24 02/15/2024 COMPL ETE BLOOD COUNT W/DIF F HCT 42.4 % 36.0-4 6.0 normal Not Available [address] [place], [address] 02/15/2024 10:39:22 02/15/20 24 02/15/2024 COMPL ETE BLOOD COUNT W/DIF F MCV 91 fL 80-95 normal Not Available [address] [place], [address] 02/15/2024 10:39:22 02/15/20 24 02/15/2024 COMPL ETE BLOOD COUNT W/DIF F MCH 30.6 pg 27.0-3 3.0 normal Not Available [address] [place], [address] 02/15/2024 10:39:22 02/15/20 24 02/15/2024 COMPL ETE BLOOD COUNT W/DIF F MCHC 33.7 % 32.0-3 6.0 normal Not Available [address] [place], [address] 02/15/2024 10:39:22 02/15/20 24 02/15/2024 COMPL ETE BLOOD COUNT W/DIF F RDW 12.3 % 11.7-1 4.6 normal Not Available [address] [place], [address] 02/15/2024 10:39:22 02/15/20 24 02/15/2024 COMPL ETE BLOOD COUNT W/DIF F platelet count 189 10_3/ uL 130-40 0 normal Not Available [address] [place], [address] 02/15/2024 10:39:22 02/15/20 24 02/15/2024 COMPL ETE BLOOD COUNT W/DIF F MPV 9.8 fL 8.0-11 .0 normal Not Available [address] [place], [address] 02/15/2024 10:39:22 02/15/20 24 02/15/2024 COMPL ETE BLOOD COUNT W/DIF F neutrophils % 56.9 % Not Available [address] [place], [address] 02/15/2024 10:39:22 02/15/20 24 02/15/2024 COMPL ETE BLOOD COUNT W/DIF F lymphocytes % 33.2 % Not Available [address] [place], [address] 02/15/2024 10:39:22 02/15/20 24 02/15/2024 COMPL ETE BLOOD COUNT W/DIF F monocytes % 8.1 % Not Available [address] [place], [address] 02/15/2024 10:39:22 02/15/20 24 02/15/2024 COMPL ETE BLOOD COUNT W/DIF F eosinophils % 0.9 % Not Available [address] [place], [address] 02/15/2024 10:39:22 02/15/20 24 02/15/2024 COMPL ETE BLOOD COUNT W/DIF F basophils % 0.7 % Not Available [address] [place], [address] 02/15/2024 10:39:22 02/15/20 24 02/15/2024 COMPL ETE BLOOD COUNT W/DIF F immature grans % 0.2 % Not Available [address] [place], [address] 02/15/2024 10:39:22 02/15/20 24 02/15/2024 COMPL ETE BLOOD COUNT W/DIF F nucleated RBC 0.0 % 0.0-0. 3 normal Not Available [address] [place], [address] 02/15/2024 10:39:22 02/15/20 24 02/15/2024 COMPL ETE BLOOD COUNT W/DIF F absolute neutrophil count 2.59 10_3/ uL 1.2-6. 7 normal Not Available [address] [place], [address] 02/15/2024 10:39:22 02/15/20 24 02/15/2024 COMPL ETE BLOOD COUNT W/DIF F absolute lymphocyte count 1.51 10_3/ uL 1.2-3. 4 normal Not Available [address] [place], [address] 02/15/2024 10:39:22 02/15/20 24 02/15/2024 COMPL ETE BLOOD COUNT W/DIF F absolute monocyte count 0.37 10_3/ uL 0.1-0. 8 normal Not Available [address] [place], [address] 02/15/2024 10:39:22 02/15/20 24 02/15/2024 COMPL ETE BLOOD COUNT W/DIF F absolute eosinophil count 0.04 10_3/ uL 0.0-0. 7 normal Not Available [address] [place], [address] 02/15/2024 10:39:22 02/15/20 24 02/15/2024 COMPL ETE BLOOD COUNT W/DIF F absolute basophil count 0.03 10_3/ uL 0.0-0. 2 normal Not Available [address] [place], [address] 02/15/2024 10:39:22 02/15/20 24 02/15/2024 ESR ESR 12 mm/HR 0-20 normal Not Available [address] [place], [address] 02/15/2024 10:53:16 02/15/20 24 02/15/2024 D-DIM ER D-dimer 886 NG/ml feu <500 high *Lite ratur e suppo rts the exclu marysol of DVT and/o r PE with a resul t less than 500 ng/ml FEU with this metho d.* Not Available [address] [place], [address] 02/15/2024 11:17:25 02/15/20 24 02/15/2024 COMPR EHENS JES METAB OLIC PANEL calcium 9.4 mg/dL 8.5-10 .1 normal Not Available [address] [place], [address] 02/15/2024 11:28:26 02/15/20 24 02/15/2024 COMPR EHENS JES METAB OLIC PANEL glucose 339 mg/dL 74-106 high Not Available Kalpesh [address] [place], [address] 02/15/2024 11:28:26 02/15/20 24 02/15/2024 COMPR EHENS JES METAB OLIC PANEL BUN 15 mg/dL 7-18 normal Not Available Kalpesh [address] [facility] [place], [address] 02/15/2024 11:28:26 02/15/20 24 02/15/2024 COMPR EHENS JES METAB OLIC PANEL creatinine 0.9 mg/dL 0.55-1 .02 normal Not Available [address] [place], [address] 02/15/2024 11:28:26 02/15/20 24 02/15/2024 COMPR EHENS [...] young er-ag ed adult s. Not Available [address] [place], [address] 02/15/2024 11:28:26 02/15/20 24 02/15/2024 COMPR EHENS JES METAB OLIC PANEL total protein 8.0 g/dL 6.4-8. 2 normal Not Available [address] [place], [address] 02/15/2024 11:28:26 02/15/20 24 02/15/2024 COMPR EHENS JES METAB OLIC PANEL albumin 3.9 g/dL 3.4-5. 0 normal Not Available [address] [place], [address] 02/15/2024 11:28:26 02/15/20 24 02/15/2024 COMPR EHENS JES METAB OLIC PANEL bilirubin, total 0.77 mg/dL 0.2-1. 0 normal Not Available [address] [place], [address] 02/15/2024 11:28:26 02/15/20 24 02/15/2024 COMPR EHENS JES METAB OLIC PANEL alk phos 161 U/L 46-116 high Not Available [address] [place], [address] 02/15/2024 11:28:26 02/15/20 24 02/15/2024 COMPR EHENS JES METAB OLIC PANEL sodium 136 mmol/ L 136-14 5 normal Not Available [address] [place], [address] 02/15/2024 11:28:26 02/15/20 24 02/15/2024 COMPR EHENS JES METAB OLIC PANEL potassium 4.3 mmol/ L 3.5-5. 1 normal Not Available [address] [place], [address] 02/15/2024 11:28:26 02/15/20 24 02/15/2024 COMPR EHENS JES METAB OLIC PANEL chloride 99 mmol/ L 98-107 normal Not Available [address] [place], [address] 02/15/2024 11:28:26 02/15/20 24 02/15/2024 COMPR EHENS JES METAB OLIC PANEL CO2 30.9 mmol/ L 21.0-3 2.0 normal Not Available [address] [place], [address] 02/15/2024 11:28:26 02/15/20 24 02/15/2024 COMPR EHENS JES METAB OLIC PANEL anion gap 6.1 mmol/ L 3-11 normal Not Available [address] [place], [address] 02/15/2024 11:28:26 02/15/20 24 02/15/2024 COMPR EHENS JES METAB OLIC PANEL AST 36 U/L 15-37 normal Not Available Kalpesh [address] [place], [address] 02/15/2024 11:28:26 02/15/20 24 02/15/2024 COMPR EHENS JES METAB OLIC PANEL ALT 46 U/L 14-59 normal Not Available Kalpesh [address] [place], [address] 02/15/2024 11:28:26 02/15/20 24 02/15/2024 C-KATIE CTIVE PROTE IN C-reactive protein < 0.50 mg/dL <or=0. 5 Not Available [address] [place], [address] 02/15/2024 11:24:26 02/15/20 24 02/15/2024 C-KATIE CTIVE PROTE IN C-reactive protein < 0.50 mg/dL <or=0. 5 Not Available [address] [place], [address] 02/15/2024 11:28:27 05/30/20 24 05/30/2024 T3,FR EE T3,free 4.0 pg/mL 2.8-5. 3 Test perfo rmed or refer red by [facility] [address], [place] [address] Not Available [address] [place], [address] 05/31/2024 09:18:37 05/30/2005/30/2024 T3, TOTAL T3, total 147 NG/dL 97-169 Test perfo rmed or refer red by [facility] [address], [place] [address] Not Available [address] [place], [address] 05/31/2024 09:18:36 05/30/2005/30/2024 TSH (W/RE F FT4) TSH (w/ref FT4) 0.76 uIU/m L 0.36-3 .74 normal Not Available [address] [place], [address] 05/30/2024 11:01:13 05/30/2005/30/2024 COMPL ETE BLOOD COUNT NO DIFF WBC 5.34 10_3/ uL 4.4-10 .8 normal Not Available [address] [place], [address] 05/30/2024 10:36:14 05/30/2005/30/2024 COMPL ETE BLOOD COUNT NO DIFF RBC 3.93 10_6/ uL 3.93-5 .22 normal Not Available [address] [place], [address] 05/30/2024 10:36:14 05/30/2005/30/2024 COMPL ETE BLOOD COUNT NO DIFF HGB 12.1 g/dL 11.2-1 5.7 normal Not Available [address] [place], [address] 05/30/2024 10:36:14 05/30/2005/30/2024 COMPL ETE BLOOD COUNT NO DIFF HCT 37.0 % 36.0-4 6.0 normal Not Available [address] [place], [address] 05/30/2024 10:36:14 05/30/2005/30/2024 COMPL ETE BLOOD COUNT NO DIFF MCV 94 fL 80-95 normal Not Available Kalpesh casillas [address] [place], [address] 05/30/2024 10:36:14 05/30/20 24 05/30/2024 COMPL ETE BLOOD COUNT NO DIFF MCH 30.8 pg 27.0-3 3.0 normal Not Available [address] [place], [address] 05/30/2024 10:36:14 05/30/20 24 05/30/2024 COMPL ETE BLOOD COUNT NO DIFF MCHC 32.7 % 32.0-3 6.0 normal Not Available [address] [place], [address] 05/30/2024 10:36:14 05/30/2005/30/2024 COMPL ETE BLOOD COUNT NO DIFF RDW 12.5 % 11.7-1 4.6 normal Not Available [address] [place], [address] 05/30/2024 10:36:14 05/30/20 24 05/30/2024 COMPL ETE BLOOD COUNT NO DIFF platelet count 173 10_3/ uL 130-40 0 normal Not Available [address] [place], [address] 05/30/2024 10:36:14 05/30/2005/30/2024 COMPL ETE BLOOD COUNT NO DIFF MPV 9.3 fL 8.0-11 .0 normal Not Available [address] [place], [address] 05/30/2024 10:36:14 05/30/2005/30/2024 T3,FR EE T3,free 4.0 pg/mL 2.8-5. 3 Test perfo rmed or refer red by [facility] [address] [place] [address] Not Available [address] [place], [address] 05/31/2024 09:18:34 05/30/2005/30/2024 T3, TOTAL T3, total 147 NG/dL 97-169 Test perfo rmed or refer red by [facility] [address] [place] [address] Not Available [address] [place], [address] 05/31/2024 09:18:33 07/05/2007/05/2023 elect sola bergeron am EKG LALY Sebastian NAME: Kailey Hernandez UNIT #: [id number] ORDERI NG PROVID ER: Ilda Angeles M.D. ACCOUN T #: [id number] PRIMAR Y CARE PROVID ER: CEASAR TURNER DATE/T ARELY OF SER VICE: 1146 : 1974 PERFOR OSCAR LOCATI ON: ER ------ ------ --- APPROV ED REPORT ------ ------ -- Exam: Restin g ECG Reason for Exam: syncop e Laly sebastian Locati on: E HR:74 bpm ECG Measur ements Heart Rate 74 AXIS WA 147 P 73 QRSd 106 QRS -66 QT 393 T 66 QTc 435 Conclu marysol Sinus rhythm ..., V-rate 60- 99 Approp riate interv als. 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 Right middle cerebr al artery : No occlus ion or signif icant stenos is. No aneury sm. Right anteri or cerebr al artery : Absent right A1 segmen t which can be a normal varian t. 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 Left middle cerebr al artery : No occlus ion or signif icant stenos is. No aneury sm. Left anteri or cerebr al artery : No occlus ion or signif icant stenos is. No aneury sm. PHARMACEUTICAL DEVELOPMENT TECHNICIAN IOR CIRCUL ATION: Right verteb ral artery : No occlus ion or signif icant stenos is. No aneury sm. Left verteb ral artery : No occlus ion or signif icant stenos is. No aneury sm. Basila r artery : No occlus ion or signif icant stenos is. No aneury sm. Right distribution tech ior cerebr al artery : No occlus ion or signif icant stenos is. No aneury sm. Left distribution tech ior cerebr al artery : No occlus [...] No large vessel occlus ion at the [place] ll[place]. 3. Absent right A1 segmen [...] No dissec tion or occlus ion. Right journalism internship al caroti d artery : No stenos is of the extrac ranial segmen t. No dissec tion or occlus ion. Right single needle tufting machine operator al caroti d artery : No occlus ion or stenos is of the origin . Left common caroti d artery : No stenos is. No dissec tion or occlus ion. Left journalism internship al caroti d artery : No stenos is of the extrac ranial segmen t. No dissec tion or occlus ion. Left single needle tufting machine operator al caroti d artery : No occlus [...] the cervic al segmen t of the journalism internship al caroti d artery is based on NASCET criter ia. Normal is no stenos is. Mild is less than 50% stenos is. Modera te is 50-69% stenos is. Severe is 70% to 99% stenos is. Total occlus ion is no detect able patent lumen. Dictat ed and Alexsander leonard d by: Debby Albert i, MD. Orderi ng:Curry gee MD Access ion#=[id number] Ordere d By: CC: ------ ------ [...] the addres s above. Thank- you. [email or web address] [address] [facility], [address] 07/06/2023 16:20:17 07/05/20 23 07/05/2023 vrad repor t Laly t Name: Kailey Hernandez Unit #: [id number] Loc: ER Orderi ng Provid er: Accya t #: [id number] Status : REG ER Primar y [...] MD. Orderi ng:Curry gee MD Access ion#=[id number] Orderdagoberto d By: CC: ------ ------ [...] at the addres s above. Thank- you. [email or web address] [address], [place], [address] 07/06/2023 16:20:19 07/05/20 23 07/05/2023 ED visit note ED Visit Note LALY Sebastian NAME: Kailey Hernandez UNIT #: [id number] ADMITT ING PROVID ER: Ilda Angeles M.D. ACCOUN T #: [id number] PRIMAR Y CARE PROVID ER: JENNIFER [...] moveme nts to sugges t seizur e. [facility] record s review ed includ ing [...] alitie s to sugges t occlus jes [place]. Tropon in negati ve x 2 -CT [...] No large vessel occlus ion at the [place]. 3. Absent right A1 segmen [...] error, please notify us immedi ately at [phone] and return the origin al report to us at the addres s above. Thank you. [email or web address] [address] [facility], [address] 07/06/2023 16:20:17 07/05/2007/05/2023 CT imagi ng repor t Patien t Name: Kailey Hernandez Unit #: [id number] Loc: ER Orderi ng Provid er: Ilda Angeles M.D. Accya t #: [id number] Status : REG ER Primar y Care [...] facili ty are submit tarsha to the [facility] al Radiol ogy Data Regist ry (NRDR) Dose Index Regist ry (DIR) with the [place] of Radiol ogy (ACR). RADIAT ION OPTIMI ZATION : [facility] hospitali ty use at least one of [...] the addres s above. Thank- you. [email or web address] [address] [facility], [place], [address] 07/06/2023 16:20:20 07/05/2007/05/2023 CT imagi ng repor t Patien t Name: Kailey Hernandez Unit #: [id number] Loc: ER Orderi ng Provid er: Ilda Angeles M.D. Accoun t #: [id number] Status : REG ER Primar y Care [...] the caroti d bulbs and proxim al journalism internship al caroti d arteri es there is no signif icant plaque and no signif icant stenos is eviden t. Both journalism internship al caroti d arteri es are patent in the upper neck and skull base-c arotid canals . Nursing Agency Manager ior circul ation: Both verteb ral [...] Brain W: Anteri or circul ation: Both journalism internship al caroti d arteri es are patent in the skull base-c arotid canals as well as within the cavern ous sinuse s. Suprac linoid aspect s of both journalism internship al caroti d arteri es are patent [...] no aneury sms of these vessel s. Nursing Agency Manager ior circul ation: The basila r artery ascend s in the midlin e. Distal ly it gives off patent bilate ral superi or cerebe llar arteri es. Above this level the basila r artery termin ates as patent bilate ral distribution tech ior cerebr al arteri es. There is a distribution tech ior commun icatin g artery noted on the left side of the [place]. There is no eviden ce of aneury sm at the tip of the basila r artery nor elsewh ere in the [place]. CT BRAIN: There is no [...] error, please notify us immedi bradfordly at [phone] and return the origin al report to us at the addres s above. Thank- you. [email or web address] [address] [facility] [place], [address] 07/06/2023 16:20:20 07/06/2007/05/2023 cesar bergeron am EKG LALY Sebastian NAME: Kailey Hernandez UNIT #: [id number] ORDERI NG PROVID ER: Ilda Angeles M.D. ACCOUN T #: [id number] PRIMAR Y CARE PROVID ER: JENNIFER ON,CEASAR FRANCO DATE/T ARELY OF SER VICE: 1146 : 1974 PERFOR OSCAR LOCATI ON: ER ------ ------ --- APPROV ED REPORT ------ ------ -- Exam: Restin g ECG Reason for Exam: syncop e Laly sebastian Locati on: E HR:74 bpm ECG Measur ements Heart Rate 74 AXIS WA 147 P 73 QRSd 106 QRS -66 QT 393 T 66 QTc 435 Conclu marysol Sinus rhythm ..., V-rate 60- 99 Approp riate interv als. No ST segmen t or T wave abnorm jason soriano to micah sebastian occlus jes [place] ------ ------ ------ ------ ------ ------ ------ ------ ------ ------ ------ ------ ------ ------ ------ ------ ---- ------ - E-Sign Date: E-Sign Time: 1159 ------ ------ --- ADDEND UM APPROV ED REPORT ------ ------ -- Exam: Restin g ECG Reason for Exam: syncop e Laly sebastian Locati on: E HR:74 bpm ECG Measur ements Heart Rate 74 AXIS WA 147 P 73 QRSd 106 QRS -66 QT 393 T 66 QTc 435 Conclu marysol Sinus rhythm ..., V-rate 60- 99 Approp riate interv als. No ST segmen t or T wave abnorm jason soriano to micah sebastian occlus jes [place] I have review ed and I agree with the emerge ncy room physic kristie's ECG interp retati on. Electr onical ly signed by: [id number] Cosign ed by: amarjit [address] [place], [address] 07/06/2023 16:20:18 08/21/19 24 08/21/2023 elect sola bergeron am EKG PATIMARIANNA Sebastian NAME: Kailey Hernandez UNIT #: [id number] TIM [facility] ER: Ilda Angeles M.D. ACCOUN T #: [id number] PRIMAR Y CARE PROVID ER: CEASAR TURNER DATE/T ARELY OF SER VICE: 2217 : 1974 PERFOR OSCAR LOCATI ON: ER ------ ------ --- APPROV ED REPORT ------ ------ -- Exam: Restin g ECG Reason for Exam: vomiti ng Patien t Locati on: E HR:73 bpm ECG Measur ements Heart Rate 73 AXIS WA 149 P 68 QRSd 114 QRS 1 QT 395 T 67 QTc 437 Conclu marysol Sinus rhythm ..V-ra te 60- 99 Approp riate interv als. No ST segmen t or T wave abnorm jason soriano to micah sebastian occlus jes [place] ------ ------ ------ ------ ------ ------ ------ ------ ------ ------ ------ ------ ------ ------ ------ ------ ---- ------ - E-Sign Date: E-Sign Time: [email or web address] [place], [address] 08/24/2023 07:32:07 08/21/19 24 08/21/2023 ED visit note ED Visit Note LALY Sebastian NAME: Kailey Hernandez UNIT #: [id number] ADMITT ING PROVID ER: Ilda Angeles M.D. T #: [id number] PRIMAR Y CARE PROVID ER: CEASAR [...] includ ing most recent ED visit in [facility] er for syncop e and cardio logy [...] alitie s to sugges t occlus jes [place]. 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 Thank you. [email or web address] [address] [place], [address] 08/24/2023 07:32:07 08/22/1908/22/2023 ED progr ess note ED Progre ss Note PATIMARIANNA T NAME: Kailey Hernandez UNIT #: [id number] ADMITT ING PROVID ER: Richard Savage DO ACCOUN T #: [id number] PRIMAR Y CARE PROVID ER: CEASAR [...] be able to get to the emerge way depart ment was by EMS or using [...] sebastian. I have addres sed all patimarianna t concer ns at this time. The [...] in this chart was dictat ed using [employer] dictat ion softwa re. Please excuse [...] er: Jennifer on,Pat joan ED Provid er: Elk ,Joshu a R Home Meds and New [...] at the addres s above. Thank you. [email or web address] [address] [facility] [place], [address] 08/24/2023 07:32:07 08/28/19 24 08/21/2023 elect sola bergeron am EKG PATIEN T NAME: Kailey Hernandez UNIT #: [id number] ORDERI [facility] ER: Ilda Angeles M.D. ACCOUN T #: [id number] PRIMAR Y CARE PROVID ER: JENNIFER ON,PAT JOAN DATE/T ARELY OF SER VICE: 2217 : 1974 PERFOR OSCAR LOCATI ON: ER ------ ------ --- APPROV ED REPORT ------ ------ -- Exam: Restin g ECG Reason for Exam: vomiti amanda Patien t Locati on: E HR:73 bpm ECG Measur ements Heart Rate 73 AXIS WA 149 P 68 QRSd 114 QRS 1 QT 395 T 67 QTc 437 Conclu marysol Sinus rhythm ..V-ra te 60- 99 Approp riate interv als. No ST segmen t or T wave abnorm jason soriano to micah sebastian occlus jes [place] ------ ------ ------ ------ ------ ------ ------ ------ ------ ------ ------ ------ ------ ------ ------ ------ ---- ------ - E-Sign Date: E-Sign Time: 2229 ------ ------ --- ADDEND UM APPROV ED REPORT ------ ------ -- Exam: Restin g ECG Reason for Exam: vomiti amanda Ruffin t Locati on: E HR:73 bpm ECG Measur ements Heart Rate 73 AXIS WA 149 P 68 QRSd 114 QRS 1 QT 395 T 67 QTc 437 Conclu marysol Sinus rhythm ..V-ra te 60- 99 Approp riate interv als. No ST segmen t or T wave abnorm alitie s to sugges t occlus jes [place] I have review ed and I agree with the emerge ncy room physic kristie's ECG interp retati on. Electr onical ly signed by: [id number] Cosign ed by: [email or web address] [address] [facility], [address] 08/28/2023 14:30:56 12/07/19 24 12/07/2023 x-ray imagi ng repor t Patien t Name: Kailey Hernandez Unit #: [id number] Loc: ER Orderi ng Provid er: Ramon Thorpe M.D. Accoun t #: [id number] Status : REG ER Primar y [...] error, please notify us immedi ately at [phone] and return the origin al report to us at the addres s above. Thank- you. [email or web address] [address], [place], [address] 12/07/2023 17:00:11 02/15/20 24 02/15/2024 CT imagi ng alen sebastian Name: Kailey Hernandez Unit #: [id number] Loc: ER Orderi ng Provid er: Julissa Thornton Accoun t #: [id number] Status : REG ER Primar y Care [...] the C4-5 levels both anteri stacy and distribution tech iorly partia l fusion of the C4 and 5 verteb ral bodies as well as the distribution tech ior osseou s elemen ts includ ing [...] facili ty are submit tarsha to the [facility] al Radiol ogy Data Regist ry [...] at the addres s above. Thank- you. [email or web address] [address] [facility] [place], [address] 02/15/2024 12:23:56 02/15/20 24 02/15/2024 CT imagi ng repor t Patien t Name: Kailey Hernandez Unit #: [id number] Loc: ER Orderi ng Provid er: Julissa Thornton Accoun t #: [id number] Status : REG ER Primar y Care [...] ZATION : [facility] [...] at the addres s above. Thank- you. [email or web address] [address] [facility] 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 Thank- you. [email or web address] [address] [facility], [address] 02/15/2024 14:16:11 02/15/20 24 02/15/2024 CT imagi amanda repor t Laly t Name: Kailey Hernandez Unit #: [id number] Loc: ER Tim patel Provid er: Julissa Thornton Accoun t #: [id number] Status : REG ER Primar y Care [...] in the distal abdomi nal aorta and journalism internship al iliac arteri es. Pulmon yamilet arteri [...] ZATION : All CT scans at this [facility] ty use at least one of these [...] the addres s above. Thank- you. [email or web address] [address] 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 The latera l rn traveling view of the neck is unrema rkable [...] error, please notify us immedchaka olson at [phone] and return the origin al report to us at the addres s above. Thank- you. [email or web address] [address] [facility], [address] 04/13/2024 12:10:55 04/17/20 24 01/03/2022 imagi ng/di [...] Address Organization Details Recorded Time Hearing loss 98647783 Active 201501/08/20 23 - Comments only - Navin Pittman RPA - Bilatera l, left greater than right. 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 Problem Code: E78.5; Problem Code Type: ICD-10; Not Available [facility] 3 05:05:04 Polyneur opathy 80431018 Active 2015 Problem Code: G62.9; Problem Code Type: ICD-10; Not Available [facility] 3 05:05:04 Chronic kidney disease stage 1 021512966 Active 2015 Problem Code: N18.1; Problem Code Type: ICD-10; Not Available [facility] 3 05:05:04 Pain in left foot 48400953675 9107 Completed 201503/28/2016 Problem Code: M79.672; Problem Code Type: ICD-10; Not Available [facility] 3 05:05:04 Pelvic and perineal pain 199028972 Completed 201604/06/2017 Problem Code: R10.2; Problem Code Type: ICD-10; [address], [place], [address] , [facility] 4 12:48:28 Mild intermit tent asthma 881720931 Active 2018 Problem Code: J45.20; Problem Code Type: ICD-10; Not Available [facility] 3 05:05:04 Gastroes ophageal reflux disease without esophagi tis 489186312 Active 2020 Problem Code: K21.9; Problem Code Type: ICD-10; Not Available [facility] 3 05:05:05 Viral screenin g Completed 202101/04/2022 Problem Code: Z11.59; Problem Code Type: ICD-10; Not Available [facility] 3 05:05:05 Atherosc lerosis of coronary artery without angina pectoris 62528988600 4103 Active 202103/09/20 23 - Comments only - Navin Pittman RPA - STEMI January 2022 with stenting x 2 of RCA. complete d one year of DAPT [address], [place], [address] , [facility] 4 12:47:18 Altered mental status 679246924 Completed 202104/22/2022 Problem Code: R41.82; Problem Code Type: ICD-10; Not Available [facility] 3 05:05:05 Syncope and collapse 344317249 Active 202106/11/20 22 - Comments only - Navin Pittman RPA - recurren t syncope thought to be secondar y to hypoglyc emic episodes . [address], [place], [address] , [facility] 4 12:49:32 Hypergly cemia due to type 1 diabetes mellitus 39142357851 9101 Completed 201504/29/2023 Problem Code: E10.65; Problem Code Type: ICD-10; Not Available [facility] 3 05:05:09 Hyperkal emia 40509189 Completed 201510/09/2016 Problem Code: E87.5; Problem Code Type: ICD-10; Not Available [facility] 3 05:05:10 Endocrin e/met[place] lic screenin g Completed 201801/15/2020 Problem Code: Z13.29; Problem Code Type: ICD-10; Not Available [facility] 3 05:05:12 Vaginal bleeding 130037156 Completed 201510/09/2016 Not Available [facility] 3 05:05:12 Hemochro matosis 744280609 Completed 201510/09/2016 Problem Code: E83.119; Problem Code Type: ICD-10; Not Available [facility] 3 05:05:12 Constipa tion 80118612 Completed 201801/15/2020 Problem Code: K59.00; Problem Code Type: ICD-10; Not Available [facility] 3 05:05:14 Disorder of urinary bladder 99243597 Completed 201801/15/2020 Problem Code: N32.89; Problem Code Type: ICD-10; Not Available [facility] 3 05:05:15 Cellulit is of right lower limb 38267605038 455838 Completed 202106/11/2022 Problem Code: L03.115; Problem Code Type: ICD-10; Not Available [facility] 3 05:05:17 Adult health examinat ion Completed 202005/21/2021 Problem Code: Z00.00; Problem Code Type: ICD-10; Not Available [facility] 3 05:05:21 Abdomina l pain 22739259 Completed 201805/21/2021 Problem Code: R10.9; Problem Code Type: ICD-10; Not Available [facility] 3 05:05:22 History of respirat ory disease 489426521 Completed 201801/15/2020 Problem Code: Z87.09; Problem Code Type: ICD-10; Not Available [facility] 3 05:05:25 HIV screenin g Completed 202106/11/2022 Problem Code: Z11.4; Problem Code Type: ICD-10; Not Available [facility] 3 05:05:26 Breast composit ion 917795234 Completed 201505/21/2021 Not Available [facility] 3 05:05:27 Impingem ent syndrome of right shoulder region 16533191695 9102 Completed 201905/21/2021 Problem Code: M75.41; Problem Code Type: ICD-10; Not Available [facility] 3 05:05:28 Blood chemistr y outside referenc e range 147060915 Completed 202109/09/2022 Problem Code: R79.89; Problem Code Type: ICD-10; Not Available [facility] 3 05:05:29 Finding of contents of vagina 094741276 Completed 201510/09/2016 Not Available [facility] 3 05:05:29 Type 1 diabetes mellitus 80520661 Active [address], [place], [address] , [facility] 3 13:22:10 Notes:*Problem Name: Visual acuity, decreased, left eye *Problem Status: active *Comments: *Problem Code: H54.52 *Problem Code Type: ICD-10 *Note Date: 09/27/2015 Problem Notes None recorded. Procedures Surgical History None recorded. Imaging Results Imaging Date Name Status LastModified by Organization Details LastModified Time 07/05/2023 electrocardiogram completed [email or web address] [address] [facility] [place], [address] 07/06/2023 16:20:18 07/05/2023 vrad report completed [email or web address] [address] [place], [address] 07/06/2023 16:20:17 07/05/2023 vrad report completed [email or web address] [address] [place], [address] 07/06/2023 16:20:19 07/05/2023 ED visit note completed [email or web address] [address] [place], [address] 07/06/2023 16:20:17 07/05/2023 CT imaging report completed [email or web address] [address] [place], [address] 07/06/2023 16:20:20 07/05/2023 CT imaging report completed [email or web address] [address] [place], [address] 07/06/2023 16:20:20 07/05/2023 electrocardiogram completed [email or web address] [place] [address] [place], [address] 07/06/2023 16:20:18 08/21/2023 electrocardiogram completed [email or web address] [address] [place], [address] 08/24/2023 07:32:07 08/21/2023 ED visit note completed [email or web address] [address] [place], [address] 08/24/2023 07:32:07 08/22/2023 ED progress note completed [email or web address] [address] [place], [address] 08/24/2023 07:32:07 08/21/2023 electrocardiogram completed [email or web address] [place] [address] [place], [address] 08/28/2023 14:30:56 12/07/2023 x-ray imaging report completed [email or web address] [email or web address] [address] [place], [address] 12/07/2023 17:00:11 02/15/2024 CT imaging report completed [email or web address] [address] [place], [address] 02/15/2024 12:23:56 02/15/2024 CT imaging report completed [email or web address] [address] [place], [address] 02/15/2024 12:23:56 02/15/2024 ultrasound imaging report completed [email or web address] [address] [place], [address] 02/15/2024 14:16:11 02/15/2024 CT imaging report completed [email or web address] [address] [place], [address] 02/15/2024 14:49:16 04/13/2024 x-ray imaging report completed No [email or web address] [address] [place], [address] 04/13/2024 12:10:55 01/03/2022 imaging/diagnostic result completed Information [...] Updated DateTime 3 161.925 cm 22.5 kg/m2 40706.7 3 g 98.1 [degF] 16 /min 80 /min 94 mm[Hg] 50 mm[Hg] FELICIANO MUNGUIA RN [facility] 3 10:24:47 Date Recorded Body height Body mass index (BMI) Body weight Body temperature Respiratory rate Heart rate Systolic blood pressure Diastolic blood pressure Provider Name and Address Organization Details Last Updated DateTime 4 161.92 cm 22.5 kg/m2 47290.0 1 g 98.1 [degF] 16 /min 76 /min 90 mm[Hg] 46 mm[Hg] FELICIANO MUNGUIA RN [facility] 4 09:31:55 Date Recorded Body height Body mass index (BMI) Body weight Body temperature Oxygen saturation Oxygen saturation in Arterial blood by Pulse oximetry Heart rate Systolic blood pressure Diastolic blood pressure Provider Name and Address Organization Details Last Updated DateTime 161.92 cm 22.7 kg/m2 63333.6 g 98.6 [degF] 100 % 100 % 80 /min 104 mm[Hg] 50 mm[Hg] RAISA ARELLANO RN [facility] 10:07:23 Social History Question Answer Notes LastModified by Organizat ion Details LastModified Time Tobacco Smoking Status Never Smoker FELICIANO MUNGUIA RN [facility], [facility] 06/17/2023 10:29:17 Date Care Plan Printed: 10/02/2023 Information not available 10/02/2023 Assigned Asbestos Handler: Hilda Ring RN Information not available 10/02/2023 Is [facility] The Lead Asbestos Handler? Yes Information not available 10/02/2023 Level Of [...] No Informa tion not available 10/02/2023 Community Cigar Maker Yes Information not available 10/02/2023 Dental Services No Informati on not available 10/02/2023 Diabetes Education Yes Information not available 10/02/2023 Food Resources Yes Informatio n not available 10/02/2023 Fuel Assistance No Informati on not available 10/02/2023 Hospice No Information not available 10/02/2023 Housing Yes Information not available 12/22/2023 Insurance Enrollment No Information not available 10/02/2023 Sql Dba Care No Informatio n not available 10/02/2023 Meals On Wheels No Informati on not available 10/02/2023 Medication Assistance No Information not available 10/02/2023 Physical Activity Programs No Information not available 10/02/2023 Halfway No Informati on not available 10/02/2023 Social [...] Not Interested Information not available 10/02/2023 Health Account General Manager For HTN Control No Information not available 10/02/2023 Tobacco Cessation No Informa tion not available 10/02/2023 Weight Loss Program No Information not available 10/02/2023 WRAP No Information not available 10/02/2023 AHS (Diploma Medical Assistant) No Information not available 10/02/2023 Adult Protective Services No Information not available 10/02/2023 BAART No Information not available 10/02/2023 Community Behavioral Services No Information not available 10/02/2023 Community Restorative Justice No Information not available 10/02/2023 DCF No Information not available 10/02/2023 Department Of Labor No Information not available 10/02/2023 Economic Services No Informa tion not available 10/02/2023 EMS No Information not available 10/02/2023 [employer] No Information not available 10/02/2023 [employer] No Information not available 10/02/2023 [facility] No Information not available 10/02/2023 NECKA [...] 10/02/2023 VCCi No Information not available 10/02/2023 [place] [employer] No Information not available 10/02/2023 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 Worker On Aging No Informat ion not available [...] Td(adult) unspecified formulation 10/09/2014 completed Not Available [facility] 06/12/2023 06:33:17 Influenza, split virus, trivalent, preservative 04/16/2016 completed Not Available [facility] 06/12/2023 06:33:17 Influenza, split virus, quadrivalent, PF 05/21/2021 completed Not Available [facility] 06/12/2023 06:33:17 Influenza, split virus, quadrivalent, preservative 05/17/2018 completed Not Available [facility] 06/12/2023 06:33:17 SARS-COV-2 (COVID-19) vaccine, UNSPECIFIED 08/09/2021 completed Not Available [facility] 06/12/2023 06:33:17 SARS-COV-2 (COVID-19) vaccine, UNSPECIFIED 12/17/2020 completed Not Available [facility] 06/12/2023 06:33:17 SARS-COV-2 (COVID-19) vaccine, UNSPECIFIED 01/07/2021 completed Not Available [facility] 06/12/2023 06:33:18 pneumococcal polysaccharide PPV23 12/22/2012 completed Not Available [facility] 2022 06:33:18 influenza, unspecified formulation 05/23/2019 completed Not Available [facility] 06/12/2023 06:33:18 Td(adult) unspecified formulation 10/09/2014 completed FELICIANO MUNGUIA RN [facility], [facility] 09/22/2023 14:43:22 Past Encounters Encounter ID Performer Location Encounter Start Date Encounter Closed Date Diagnosis/Indication Diagnosis SNOMED-CT Code Diagnosis ICD10 Code [id number] NAVIN PITTMAN PA-C [facility] [address] [place] [address] 06/17/2023 09:40:59 06/17/2023 10:57:50 Atherosclerosis of coronary artery without angina pectoris 8894689255 77228 I25.10 Chronic ki dney disease stage 1 887382247 N18.1 Hyperlipidemia 34952951 E78.5 Type 1 tio betes mellitus 37471442 E10.8 [id number] NAVIN PITTMAN PA-C [facility] [address] [place] [address] 09/25/2023 09:17:41 09/25/2023 10:04:19 Atherosclerosis of coronary artery without angina pectoris 0635224890 86239 I25.10 Chronic ki dney disease stage 1 347223708 N18.1 Type 1 tio betes mellitus 45767518 E10.8 [id number] NAVIN PITTMAN PA-C [facility] [address] [place] [address] 12/22/2023 09:20:52 12/22/2023 10:59:47 Atherosclerosis of coronary artery without angina pectoris 9772789016 37975 I25.10 Hyperlipidemia 07718796 E78.5 Type 1 tio betes mellitus 14129299 E10.8 Pain of left heel 803844 1028 909972 M79.672 Goals Section Goal Description Status Start [...] ID Guarantor Name 06/17/2023 1 MEDICARE [place]: [facility] Kailey Hernandez Silver [id number] 1 Kailey David Silver 06/17/2023 2 [employer] [place] CARE (MEDICAID) Kailey A Silver [id number] Kailey A Silver 09/25/2023 1 [place]ICARE [place]: [facility] Kailey A Silver [id number] Kailey A Silver 09/25/2023 2 [place] [place] [facility] (MEDICAID) Kailey A Silver [id number] Kailey A Silver 12/22/2023 1 [place] [facility] Kailey A Silver [id number] 1 Kailey A Silver 12/22/2023 2 [place] [place] [facility] (MEDICAID) Kailey A Silver [id number] Kailey A Silver Notes Date Note Type Note Provider Name and Address Organization Details Recorded Time 06/17/2023 text/html Kailey is here fo r followup of cad and diabetes. She has been feeling well. No recent illnesses. Less frequent hypoglycemic episodes but did experience some of these when she tried titrating basaglar above 20 units daily. [address], [place], [address], [facility]. 06/17/2023 13:24:22 09/25/2023 text/html Jessy is here fo r follow-up of diabetes and coronary artery disease. She has been feeling at her baseline health. No recent significant hypoglycemic episodes. She has been referred by ENT to [facility] for consideration of left ear surgery to restore some hearing. Has upcoming follow-up with cardiology. Presented to the ER for a stomach bug last month. This has resolved. [address], [place], [address], [facility]. 09/25/2023 11:15:19 12/22/2023 text/html Kailey is here fo r follow-up of type 1 diabetes, hyperlipidemia, and hypertension. She has been doing fairly well. She was recently seen in the ER for chest pain with unremarkable cardiac workup. She has not had any recurrence of the chest pain since. She has upcoming cardiology follow-up. It has been 2 years since her NV. Her blood sugars have been doing okay. Still gets occasional lows. It drops precipitously. Her significant other admits that he likely overcompensates for these hypoglycemic episodes. Currently having some left heel pain. Painful to put pressure on her heel. Her physician recruiter knows about this. [address], [place], [address], [facility], [facility]. 12/22/2023 12:27:24 OBGyn Episode No OBEpisode recorded.
--- OUTSIDE RECORDS SUMMARY | 2024-06-19 15:12 | XMS_ITS | Encounter Summary ---
Author Organization [facility] Address [facility] [place] [address] Care Team Providers Care Carousel Operator Name Role Phone Felisha Juan APRN Primary Care Provider + [phone] Encounter Details Date Type Department Care Team (Late st Contact Info) Description 01/12/2022 External Results Administration [facility] [place] [address] Social History Tobacco Use Types Packs/Day Years [...] on filedocumented in this encounter Care Teams Carousel Operator Relationship Specialty Start Date End Date Felisha Juan APRN [address] [place] [address] PCP - General Family Medicine 10/29/15 01/29/22 documented as of this encounter
--- OUTSIDE RECORDS SUMMARY | 2024-06-19 15:12 | XMS_ITS | Encounter Summary ---
Author Organization Formerly [facility] Address [facility] [place] [address] Care Team Providers Care Sprayer Automatic Spray Machine Name Role Phone Felisha Juan APRN Primary Care Provider [phone] Reason for Referral * Consultation (Routine) - Closed Specialty Diagnoses / Procedures Referred By Contact Referred To Contact Cardiac Rehabilitation Diagnoses ST elevation myocardial infarction involving right coronary artery Marc Bowles MD [facility] [place] [address] Cardiac Rehab, [address] [address] Referral ID Status Reason Start Date Expiration Date V isits Requested Visits Authorized [id number] Closed Consult, Test & Treat 01/06/2022 01/06/2023 36 36 * Consultation (Routine) - Closed Specialty Diagnoses / Procedures Referred By Contac t Referred To Contact Diagnoses ST elevation myocardial infarction involving right coronary artery Marc Bowles MD [facility] [place] [address] [place], [place] Referral ID Status Reason Start Date Expiration Date V isits Requested Visits Authorized [id number] Closed Consult, Test & Treat 01/06/2022 07/05/2022 1 1 Reason for Visit * Auth/Cert Specialty Diagnoses / Procedures Referred By Contac t Referred To Contact Diagnoses STEMI (ST elevation myocardial infarction) STEMI Procedures CARDIAC CATHETERIZATION Geraldo Salomon MD [facility] [place] [address] [facility] Referral ID Status Reason Start Date Expiration Date Visits Re quested Visits Authorized [id number] 1 1 Encounter Details Date Type Department Care Team (Latest Contact Info) Description 01/03/2022 10:19 PM EDT - 01/06/2022 3:03 PM EDT Hospital [place] [address] Moi Ledezma MD [facility] [place] [address] Geraldo Salomon MD [facility] [place] [address] [place] [address] ST elevation myocardial infarction involving right coronary [...] Afua Rosales Patient Age: 46 y.o. Language: Citizen Of [place] Race: White Ethnicity: Not nor Admit date: [...] will need follow up with cardiology at [facility] as well as to establish care. [...] made her nauseous. ?? On arrival to [facility], she was afebrile, BP was 95/54, she was oxygenating normally on room air. She was infused with 1L IV fluids, given 25 mg of aspirin (per [facility] discharge note). The on-call electronic organ mechanic at [facility] was contacted, she was given 300 mg of Plavix, aspirin, heparin with bolus and drip. She was also given tecteplase 35mg. ?? On arrival to [facility] aquatic laborer, she underwent LHC and received TRACIE [...] for you to establish care with a credit and collections representative at [facility] as well as a referral to [...] appointments: During 8am-5pm Thursday through Thursday call [phone] to speak with a nurse in the cardiology clinic All other times call [phone] and ask to speak to the electronic organ mechanic production line assembler. Activity level: - No heavy lifting (more [...] none Follow up Appointments: No future appointments. Charter Coach Driver: You will be contacted by [facility] to schedule a cardiology appointment to establish care. PCP: Felisha Juan APRN at [phone] Your Inpatient Doctor(s) at [facility]: Geraldo Salomon MD - Attending physician Cam David MD - Technical Service Rep physician Your Primary Care Provider: Felisha Juan APRN [address] [place] [id number] For questions regarding issues relating to your hospitalization on the Hospital Medicine Service, please contact your inpatient physician through the [facility] Field Sales Associate [phone]. Issues after hours and on weekends will be handled by the Hospitalist staff on-call. General Instructions None Future Appointments and Orders Future Orders Complete By Expires Referral to Cardiac Rehab [[id number] Custom] As directed Process Instructions: If no progress note charted, please enter Clinical details in comments. Scheduling Instructions: Questions: My question or request is: cardiac rehab referral s/p STEMI, she would benefit from location close to [facility] Referral to Cardiology [REF12 Custom] As directed Process Instructions: If no progress note charted, please enter Clinical details in comments. Scheduling Instructions: Questions: My question or request is: establish care after inferoposterior stemi Provider Contact Information: Felisha Juan APRN [address] [facility] [address] Discharge References/Attachments: Discharge References/Attachments None Associated attestation - Geraldo Salomon MD - 01/06/2022 1:51 PM EDT Dear Colleagues, I was the attending at the time of discharge. Please call or email me if you have questions. Geraldo Salomon MD, [facility] Cardiovascular Medicine [email or web address] [phone] documented in this encounter Discharge Instructions * [...] for you to establish care with a credit and collections representative at [facility] as well as a referral to [...] appointments: During 8am-5pm Thursday through Thursday call [phone] to speak with a nurse in the cardiology clinic All other times call [phone] and ask to speak to the electronic organ mechanic production line assembler. Activity level: - No heavy lifting (more [...] none Follow up Appointments: No future appointments. Charter Coach Driver: You will be contacted by [facility] to schedule a cardiology appointment to establish care. PCP: Felisha Juan APRN at [phone] Your Inpatient Doctor(s) at [facility]: Geraldo Salomon MD - Attending physician Cam David MD - Technical Service Rep physician Your Primary Care Provider: Felisha Juan APRN [address] [facility] [address] For questions regarding issues relating to your hospitalization on the Hospital Medicine Service, please contact your inpatient physician through the [facility] Field Sales Associate [phone]. Issues after hours and on weekends will [...] detail Patient transport has been arranged through [facility]. Nilda will be arriving in [...] CHO control level 2 Elba Pavon APRN [facility] Endocrinology Diabetes Management Pager [phone] 20 minutes of this 35 minute visit [...] Cuff Relevant medications: noted Last Bowel Movement: (CHANNEL LAYER) Admit Weight: 66.1 kg Estimated body mass index is 22.86 kg/m?? as calculated from the following: Height as of this encounter: 165.1 cm (5' 5). Weight as of this encounter: 62.3 kg (137 lb 5.6 oz). Worden Body Weight: 125 lbs / 56.7 kg [...] up while inpatient Phuong Cle[address] RD Pager #:[phone] * Geraldo Salomon MD - 01/06/2022 6:54 AM EDT Images from the original note were not included. Inpatient Cardiology Progress Note Patient info: Name: Afua Rosales : 1975 PCP: Felisha Juan APRN PCP phone number: [phone] Date of Admission: 01/03/2022 ( Hospital Day 3 days ) Attending:Geraldo Salomon MD ID: Afua Rosales is a 46 y.o. 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 She presents with inferior STEMI and is now s/p PCI with TRACIE x2 to RCA. Hospital Day3 24 Hour Events/Subjective: - GUSTAVO ROJAS - pharmacy is [facility] in [facility], BF can pick up and delivery driver at 6 pm when neighbor's car becomes [...] Procedure Component Value Units Date/Time COVID-19 PCR [[id number]] Collected: 01/04/2249 Lab Status: Final result Specimen: [...] using the Simplexa COVID-19 Direct Assay by ASI System Integration as authorized by the FDA issued Emergency [...] fact sheets at the following FDA website: https://www.fda.gov/medical-devices/mdyiiehdmis-mksfkmz-7786-gxlch-01-onzulieub- zrb-rjehegqbskixcj-rfbkhjc-devices/rmhdz-jsflawsnlje-asra SARS-CoV-2 Source DRONE PILOT Swab Imaging: No results found for this [...] David MD Internal Medicine, PGY-1 Cardiology, S2 (3131) 01/06/22 Cardiology Staff Addendum Afua Rosales is [...] Sky ? Lucia Alexander Endocrinology Fellow Pager [phone] I have seen the patient and reviewed [...] PCP: Felisha Juan APRN PCP phone number: [phone] Date of Admission: 01/03/2022 ( Hospital Day [...] Procedure Component Value Units Date/Time COVID-19 PCR [[id number]] Collected: 01/04/2249 Lab Status: Final result Specimen: [...] using the Simplexa COVID-19 Direct Assay by ASI System Integration as authorized by the FDA issued Emergency [...] fact sheets at the following FDA website: https://www.fda.gov/medical-devices/khrjyoxfnkd-okbzivx-5396-rkdvk-81-wwbpievat- kps-gtwsovgbzfjsxx-ncwfqxh-devices/sakwm-pbpfcuaemne-jnoh SARS-CoV-2 Source DRONE PILOT Swab Imaging: No results found for this [...] Clark MD - 01/04/2022 3:25 AM EDT [facility] TeleICU Initial Assessment Note I established audio/visual communication with the patient's room, reviewed the eDH. History and Assessment: 46 y.o. 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 w/ angina. STEMIalert activated and went to aquatic laborer where proximal and mid RCA stents [...] tablet 12.5 mg, 12.5 mg, Oral, Q8H [facility], Sumanth Barnard MD ??? clopidogreL (Plavix) [...] PCP: Felisha Juan APRN PCP phone number: [phone] Date of Admission: 01/03/2022 ( Hospital Day [...] previously made her nauseous. On arrival to [facility], she was afebrile, BP was 95/54, she was oxygenating normally on room air. She was infused with 1L IV fluids, given 25 mg of aspirin (per [facility] discharge note). The on-call electronic organ mechanic at [facility] was contacted, she was given 300 mg of Plavix, aspirin, heparin with bolus and drip. She was also given tecteplase 35mg. On arrival to [facility] aquatic laborer, she underwent LHC and received TRACIE [...] COVID test: Lab Results Component Value Date [id number] Not Detected 01/04/2022 Past medical History: No [...] 180 days) Any patient receiving care at [facility] must abide by [place] law. The hierarchy [...] (i) The agent with financial power of contract attorney or a conservator appointed in accordance [...] confirmed as: [address] [facility] [address] Social & Family Supports: All names listed below confirmed with patient as current and correct Extended Emergency Contact Information Primary Emergency Contact: Delano Reyna [facility] Mobile Relation: Friend Current Care [...] MEDICAID [place] Prescription Coverage: Yes Preferred Pharmacy: [id number] - [place], [place] - [address] [facility] [address] [facility] - [place], [place] - [address] [facility] [address] [facility] [address] Reeder Status: Patient is a : No Primary Care Provider: Felisha Juan APRN [phone] Patient/Caregiver Goals of Treatment: To go home [...] planning. Office of Care Management Surgery Team Stretcher Drier Operator [email or web address] Pager [phone] * Consult Note - Mark Sky [...] management and to provide a review of terminal make up operator diabetescare. Diabetes History: Afua Rosales has had [...] meal) 4. Carb controlled diet level 2 [facility] diabetes care: Medications - Outpatient treatment regimen recommendations pending based on the hospital course. Monitoring - continue BG check q4 hours for now Diet - low fat/low carb diet Exercise - weight-bearing exercise 30 min/day, as tolerated Thank you for allowing us to provide care for your patient. Discussed with Dr. Asya Alexander Endocrinology Fellow Pager [phone] I have seen the patient and reviewed [...] Glucose, POC 197 65 - 199 mg/dL [facility] Comment: Supplemental ranges: <140 mg/dL before meals <180 mg/dL all other times of the day Blood 01/06/2022 2:32 PM EDT 01/06/2022 2:32 PM EDT Geraldo Salomon MD POINT OF CARE TEST O MUSHTAQ Performing Organization Address City/[facility]/ZIP Co de Phone Number [facility] [place] [address] * (ABNORMAL) POCT Glucose (01/06/2022 11:47 AM EDT) Glucose, POC 299(H) 65 - 199 mg/dL [facility] Comment: Supplemental ranges: <140 mg/dL before meals <180 mg/dL all other times of the day Blood 01/06/2022 11:4 7 AM EDT 01/06/2022 11:47 AM EDT Geraldo Salomon MD POINT OF CARE TEST Natalia LANDIN [facility] [place] [address] * POCT Glucose (01/06/2022 8:01 AM EDT) Glucose, POC 142 65 - 199 mg/dL [facility] Comment: Supplemental ranges: <140 mg/dL before meals <180 mg/dL all other times of the day Blood 01/06/2022 8:01 AM EDT 01/06/2022 8:01 AM EDT Geraldo Salomon MD POINT OF CARE TEST O RDERABLES Performing Organization Address City/[facility]/ZIP Co de Phone Number [facility] [place] [address] * Differential, Automated (01/06/2022 4:20 AM EDT) Neutrophil % 51.9 % [facility] Neutrophil Absolute 3.34 1.70 - 6.10 x10(3)/[facility] LABORATORY Lymph % 32.5 % [facility] Lymphocytes Abs 2.1 0.9 - 3.2 x10(3)/[facility] LABORATORY Monocyte % 13.7 % [facility] Monocyte Abs 0.9 0.3 - 0.9 x10(3)/[facility] LABORATORY Eos % 1.1 % [facility] Eosinophils Abs 0.1 0.0 - 0.4 x10(3)/[facility] LABORATORY Basophil % 0.6 % [facility] Baso Absolute 0.0 0.0 - 0.1 x10(3)/[facility] LABORATORY Immature Gran % 0.20 % [facility] Comment: Immature granulocytes(IG's)percentage and absolute count will include metamyelocytes, myelocytes, and promyelocytes. Blood smears from CBCs yielding IG's will be scanned manually for concordance. If this scan disagrees with the automated IG or if promyelocytes are noted, a manual differential will be performed. Immature Gran Absolute 0.01 0.00 - 0.04 x10(3)/[facility] LABORATORY Blood 01/06/2022 4:20 AM EDT 01/06/2022 4:39 AM EDT Narrative Resulting Agency Comment Spec In Lab Cam David MD HEMATOLOGY ORDERABLE S Performing Organization Address City/[facility]/ZIP Co de Phone Number [facility] [place] [address] * (ABNORMAL) Hemogram (01/06/2022 4:20 AM EDT) White Blood Cell 6.4 4.0 - 9.5 x10(3)/mc L [facility] Red Blood Cell 3.86(L) 4.00 - 5.21 x10(6)/mc L [facility] Hemoglobin 12.4 11.7 - 15.5 g/dL [facility] Hematocrit 36.0 35.7 - 45.8 % [facility] Mean Cell Volume 93.3 82.6 - 94.4 fL [facility] Mean Cell Hemoglobin 32.1(H) 27.1 - 32.0 pg [facility] Mean Cell Hemoglobin Concentration 34.4 31.7 - 35.0 g/dL [facility] Platelet 177 145 - 357 x10(3)/[facility] LABORATORY RDW Standard Deviation 42.0 37.0 - 46.0 fL [facility] RDW coefficient of variation 12.1 11.5 - 14.1 % [facility] Mean Platelet Volume 10.0 7.6 - 12.9 fL [facility] NRBC% auto 0.0 % [facility] NRBC Absolute 0.000 0.000 - 0.000 x10(3)/ L [facility] Blood 01/06/2022 4:20 AM EDT 01/06/2022 4:39 AM EDT Narrative Resulting Agency Comment Spec In Lab Cam David MD HEMATOLOGY ORDERABLE S [facility] [place] [address] * Basic Metabolic Panel (non-fasting) (01/06/2022 4:20 AM EDT) Glucose 123 65 - 199 mg/dL [facility] Comment:Diabetes: >=200 mg/d L plus symptoms Blood Urea Nitrogen 13 8 - 18 mg/dL [facility] Creatinine 0.77 0.70 - 1.20 mg/dL [facility] Sodium 137 135 - 145 mmol/L [facility] Potassium 4.0 3.5 - 5.0 mmol/L [facility] Comment: Please note: ??Patients with WBC >100,000 may have falsely elevated Potassium levels. ??For accurate Potassium quantification in these patients send serum separator tube (gold top) for subsequent determinations. ??Contact the Clinical Chemistry Laboratory if there are any questions. Chloride 102 98 - 107 mmol/L [facility] Carbon Dioxide 26 22 - 31 mmol/L [facility] Anion Gap 9 5 - 15 mmol/L [facility] Calcium 9.2 8.5 - 10.5 mg/dL [facility] Est Glomerular Filtration Rate 92 >=60 mL/min/1. 73 m?? [facility] Comment: This patient? s [...] In Lab Geraldo Salomon MD CHEMISTRY ORDERABLES [facility] [place] [address] * POCT Glucose (01/06/2022 3:46 AM EDT) Glucose, POC 129 65 - 199 mg/dL [facility] Comment: Supplemental ranges: <140 mg/dL before meals <180 mg/dL all other times of the day Blood 01/06/2022 3:46 AM EDT 01/06/2022 3:46 AM EDT Geraldo Salomon MD POINT OF CARE TEST O MUSHTAQ Performing Organization Address City/[facility] Co de Phone Number [facility] [place] [address] * POCT Glucose (01/06/2022 12:06 AM EDT) Glucose, POC 125 65 - 199 mg/dL [facility] Comment: Supplemental ranges: <140 mg/dL before meals <180 mg/dL all other times of the day Blood 01/06/2022 12:0 6 AM EDT 01/06/2022 12:06 AM EDT Geraldo Salomon MD POINT OF CARE TEST O MUSHTAQ Performing Organization Address [facility] Co de Phone Number [facility] [place] [address] * (ABNORMAL) POCT Glucose (01/05/2022 8:11 PM EDT) Glucose, POC 220(H) 65 - 199 mg/dL [facility] Comment: Supplemental ranges: <140 mg/dL before meals <180 mg/dL all other times of the day Blood 01/05/2022 8:11 PM EDT 01/05/2022 8:11 PM EDT Geraldo Salomon MD POINT OF CARE TEST O SANDEEPERAFRANKLIN Performing Organization Address [facility] Co de Phone Number [facility] [place] [address] * POCT Glucose (01/05/2022 6:00 PM EDT) Glucose, POC 190 65 - 199 mg/dL [facility] Comment: Supplemental ranges: <140 mg/dL before meals <180 mg/dL all other times of the day Blood 01/05/2022 6:00 PM EDT 01/05/2022 6:00 PM EDT Geraldo Salomon MD POINT OF CARE TEST O RDERABLES Performing Organization Address City/[facility] Co de Phone Number [facility] [place] [address] * POCT Glucose (01/05/2022 3:53 PM EDT) Pathologist [facility] Glucose, POC 161 65 - 199 mg/dL [facility] Comment: Supplemental ranges: <140 mg/dL before meals <180 mg/dL all other times of the day Blood 01/05/2022 3:53 PM EDT 01/05/2022 3:53 PM EDT Geraldo Salomon MD POINT OF CARE TEST O MUSHTAQ Performing Organization Address City/[facility]/ZIP Co de Phone Number [facility] [place] [address] * (ABNORMAL) Differential, Automated (01/05/2022 11:45 AM EDT) [facility] Neutrophil % 65.9 % [facility] Neutrophil Absolute 4.46 1.70 - 6.10 x10(3)/mc L [facility] Lymph % 19.0 % [facility] Lymphocytes Abs 1.3 0.9 - 3.2 x10(3)/mc L [facility] Monocyte % 14.2 % [facility] Monocyte Abs 1.0(H) 0.3 - 0.9 x10(3)/mc L [facility] Eos % 0.1 % [facility] Eosinophils Abs 0.0 0.0 - 0.4 x10(3)/mc L [facility] Basophil % 0.4 % [facility] Baso Absolute 0.0 0.0 - 0.1 x10(3)/mc L [facility] Immature Gran % 0.40 % [facility] Comment: Immature granulocytes(IG's)percentage and absolute count will include metamyelocytes, myelocytes, and promyelocytes. Blood smears from CBCs yielding IG's will be scanned manually for concordance. If this scan disagrees with the automated IG or if promyelocytes are noted, a manual differential will be performed. Immature Gran Absolute 0.03 0.00 - 0.04 x10(3)/mc L [facility] Blood 01/05/2022 11:4 5 AM EDT 01/05/2022 12:08 PM EDT Narrative Resulting Agency Comment Spec In Lab Cam David MD HEMATOLOGY ORDERABLE S [facility] [place] [address] * (ABNORMAL) Hemogram (01/05/2022 11:45 AM EDT) White Blood Cell 6.8 4.0 - 9.5 x10(3)/ L [facility] Red Blood Cell 3.92(L) 4.00 - 5.21 x10(6)/mc L [facility] Hemoglobin 12.5 11.7 - 15.5 g/dL [facility] Hematocrit 36.4 35.7 - 45.8 % [facility] Mean Cell Volume 92.9 82.6 - 94.4 fL [facility] Mean Cell Hemoglobin 31.9 27.1 - 32.0 pg [facility] Mean Cell Hemoglobin Concentration 34.3 31.7 - 35.0 g/dL [facility] Platelet 187 145 - 357 x10(3)/mc L [facility] RDW Standard Deviation 41.9 37.0 - 46.0 fL [facility] RDW coefficient of variation 12.3 11.5 - 14.1 % [facility] Mean Platelet Volume 10.4 7.6 - 12.9 fL [facility] NRBC% auto 0.0 % [facility] NRBC Absolute 0.000 0.000 - 0.000 x10(3)/mc L [facility] Blood 01/05/2022 11:4 5 AM EDT 01/05/2022 12:08 PM EDT Narrative Resulting Agency Comment Spec In Lab Cam David MD HEMATOLOGY ORDERABLE S [facility] [place] [address] * Basic Metabolic Panel (non-fasting) (01/05/2022 11:45 AM EDT) Glucose 140 65 - 199 mg/dL [facility] Comment:Diabetes: >=200 mg/d L plus symptoms Blood Urea Nitrogen 10 8 - 18 mg/dL [facility] Creatinine 0.75 0.70 - 1.20 mg/dL [facility] Sodium 137 135 - 145 mmol/L [facility] Potassium 3.9 3.5 - 5.0 mmol/L [facility] Comment: Please note: ??Patients with WBC >100,000 may have falsely elevated Potassium levels. ??For accurate Potassium quantification in these patients send serum separator tube (gold top) for subsequent determinations. ??Contact the Clinical Chemistry Laboratory if there are any questions. Chloride 101 98 - 107 mmol/L [facility] Carbon Dioxide 25 22 - 31 mmol/L [facility] Anion Gap 11 5 - 15 mmol/L [facility] Calcium 8.6 8.5 - 10.5 mg/dL [facility] Est Glomerular Filtration Rate 95 >=60 mL/min/1. 73 m?? [facility] Comment: This patient? s [...] Salomon MD CHEMISTRY ORDERABLES Performing Organization Address [facility] Co de Phone Number [facility] [place] [address] * POCT Glucose (01/05/2022 11:40 AM EDT) [facility] Glucose, POC 148 65 - 199 mg/dL [facility] Comment: Supplemental ranges: <140 mg/dL before meals <180 mg/dL all other times of the day Blood 01/05/2022 11:4 0 AM EDT 01/05/2022 11:40 AM EDT Geraldo Salomon MD POINT OF CARE TEST O RDERABLES Performing Organization Address [facility] Co de Phone Number [facility] [place] [address] * EKG 12 Lead (01/05/2022 8:23 AM EDT) Ventricular rate 78 BPM MUSE SYSTEM Atrial Rate 78 BPM MUSE SYSTEM P-R Interval 132 ms MUSE SYSTEM QRS Duration 106 ms MUSE SYSTEM Q-T Interval 364 ms MUSE SYSTEM QTC Calculated (Bezet) 414 ms MUSE SYSTEM Calculated P [place] 78 degrees MUSE SYSTEM Calculated R [place] -65 degrees MUSE SYSTEM Calculated T [place] -33 degrees MUSE SYSTEM INTERPRETATION Normal sinus rhythm Left axis deviation Incomplete right bundle branch block Cannot rule out Inferior infarct , age undetermined Abnormal ECG When compared with ECG of 04-JAN-2022 00:45, Incomplete right bundle branch block is now Present Minimal criteria for Inferior infarct are now Present Confirmed by Storm Lewis ([id number]) on 01/05/2022 3:44:16 PM MUSE SYSTEM 01/05/2022 8:23 AM EDT 01/05/2022 3:44 PM EDT Geraldo Salomon MD ECG ORDERABLES MUSE SYSTEM * (ABNORMAL) POCT Glucose (01/05/2022 7:43 AM EDT) Glucose, POC 213(H) 65 - 199 mg/dL [facility] Comment: Supplemental ranges: <140 mg/dL before meals <180 mg/dL all other times of the day Blood 01/05/2022 7:43 AM EDT 01/05/2022 7:43 AM EDT Geraldo Salomon MD POINT OF CARE TEST O RDERABLES Performing Organization Address [facility]/ZIP Co de Phone Number [facility] [place] [address] * (ABNORMAL) POCT Glucose (01/05/2022 6:45 AM EDT) Glucose, POC 214(H) 65 - 199 mg/dL [facility] Comment: Supplemental ranges: <140 mg/dL before meals <180 mg/dL all other times of the day Blood 01/05/2022 6:45 AM EDT 01/05/2022 6:45 AM EDT Geraldo Salomon MD POINT OF CARE TEST O RDERABLES Performing Organization Address City/[facility]/ZIP Co de Phone Number [facility] [place] [address] * POCT Glucose (01/05/2022 5:31 AM EDT) Glucose, POC 89 65 - 199 mg/dL [facility] Comment: Supplemental ranges: <140 mg/dL before meals <180 mg/dL all other times of the day Blood 01/05/2022 5:31 AM EDT 01/05/2022 5:31 AM EDT Geraldo Salomon MD POINT OF CARE TEST O SANDEEPERAFRANKLIN [facility] [place] [address] * (ABNORMAL) POCT Glucose (01/05/2022 5:09 AM EDT) Glucose, POC 59(L) 65 - 199 mg/dL [facility] Comment: Supplemental ranges: <140 mg/dL before meals <180 mg/dL all other times of the day Blood 01/05/2022 5:09 AM EDT 01/05/2022 5:09 AM EDT Geraldo Salomon MD POINT OF CARE TEST O SANDEEPERAFRANKLIN Performing Organization Address [facility]/ZIP Co de Phone Number [facility] [place] [address] * POCT Glucose (01/05/2022 12:45 AM EDT) Glucose, POC 96 65 - 199 mg/dL [facility] Comment: Supplemental ranges: <140 mg/dL before meals <180 mg/dL all other times of the day Blood 01/05/2022 12:4 5 AM EDT 01/05/2022 12:45 AM EDT Geraldo Salomon MD POINT OF CARE TEST O RDERAFRANKLIN [facility] [place] [address] * POCT Glucose (01/04/2022 7:28 PM EDT) Glucose, POC 104 65 - 199 mg/dL [facility] Comment: Supplemental ranges: <140 mg/dL before meals <180 mg/dL all other times of the day Blood 01/04/2022 7:28 PM EDT 01/04/2022 7:28 PM EDT Geraldo Salomon MD POINT OF CARE TEST O MUSHTAQ Performing Organization Address City/[facility]/ZIP Co de Phone Number [facility] [place] [address] * POCT Glucose (01/04/2022 4:04 PM EDT) Glucose, POC 190 65 - 199 mg/dL [facility] Comment: Supplemental ranges: <140 mg/dL before meals <180 mg/dL all other times of the day Blood 01/04/2022 4:04 PM EDT 01/04/2022 4:04 PM EDT Geraldo Salomon MD POINT OF CARE TEST O MUSHTAQ Performing Organization Address [facility] Co de Phone Number [facility] [place] [address] * POCT Glucose (01/04/2022 12:09 PM EDT) Glucose, POC 157 65 - 199 mg/dL [facility] Comment: Supplemental ranges: <140 mg/dL before meals <180 mg/dL all other times of the day Blood 01/04/2022 12:0 9 PM EDT 01/04/2022 12:09 PM EDT Geraldo Salomon MD POINT OF CARE TEST O MUSHTAQ Performing Organization Address City/[facility] Co de Phone Number [facility] [place] [address] * ECHO COMPLETE W CONTRAST (01/04/2022 11:08 AM EDT) EF 60 HEARTLAB SYSTEM Anatomical Region Laterality Modality Cardiac Other 01/04/2022 10:3 3 AM EDT Narrative 01/04/2022 11:25 AM EDT [facility] ?[address] ? [place] [address] ?Voice: ?Fax: ? Echocardiogram Report Name: SILVER, AFUA A ? Study Date: 01/04/2022 10:33 AM ? Patient Location: [facility] CV19 A : 1975 ? Height: 65 in ? Account: [id number] Age: 46 yrs ? Weight: 148 lb [...] jet. There is no valve disease. Procedure Complete-03666. Image enhancement Optison was used for left [...] Procedure Note Geraldo Salomon MD - 01/04/2022 [place] [address] Voice: Fax: Echocardiogram Report Name: AFUA ROSALES Study Date: 210:33 AM Patient Location: [address] : 1975 Height: 65 in Account: [id number] Age: 46 yrs Weight: 148 lb Gender: [...] jet. There is no valve disease. Procedure Complete-90148. Image enhancement Optison was used for left [...] Glucose, POC 100 65 - 199 mg/dL [facility] Comment: Supplemental ranges: <140 mg/dL before meals <180 mg/dL all other times of the day Blood 01/04/2022 10:0 5 AM EDT 01/04/2022 10:05 AM EDT Geraldo Salomon MD POINT OF CARE TEST O RDERAFRANKLIN [facility] [place] [address] * POCT Glucose (01/04/2022 8:23 AM EDT) Glucose, POC 72 65 - 199 mg/dL [facility] Comment: Supplemental ranges: <140 mg/dL before meals <180 mg/dL all other times of the day Blood 01/04/2022 8:23 AM EDT 01/04/2022 8:23 AM EDT Moi Ledezma MD POINT OF CARE TEST O RDERAFRANKLIN Performing Organization Address City/[facility]/ZIP Co de Phone Number [facility] [place] [address] * POCT Glucose (01/04/2022 5:03 AM EDT) Glucose, POC 143 65 - 199 mg/dL [facility] Comment: Supplemental ranges: <140 mg/dL before meals <180 mg/dL all other times of the day Blood 01/04/2022 5:03 AM EDT 01/04/2022 5:03 AM EDT Moi Ledezma MD POINT OF CARE TEST O RDERABLES [facility] [place] [address] * POCT Glucose (01/04/2022 3:01 AM EDT) Glucose, POC 182 65 - 199 mg/dL [facility] Comment: Supplemental ranges: <140 mg/dL before meals <180 mg/dL all other times of the day Blood 01/04/2022 3:01 AM EDT 01/04/2022 3:01 AM EDT Moi Ledezma MD POINT OF CARE TEST O RDERABLES [facility] [place] [address] * (ABNORMAL) BLOOD GAS 2 VENOUS (01/04/2022 1:44 AM EDT) pH, Venous 7.33 7.32 - 7.42 [facility] PCO2, Venous 45 41 - 51 mmHg [facility] PO2, Venous 52(H) 25 - 40 mmHg [facility] Bicarbonate, Venous 23.5 mmol/L [facility] Base Excess, Venous -2.7 mmol/L [facility] Hgb Blood Gas 13.1 11.7 - 15.5 g/dL [facility] Oxyhemoglobin, Venous 86.6 % [facility] Carboxyhemoglob in, Venous 0.3 % [facility] Comment: Nonsmokers: 0.5-1.5% COHB Smokers: Variable, but usually less than 10% Toxic: 20-30% COHB Lethal: Greater than 60% COHB Methemoglobin, Venous 0.8 <=1.5 % [facility] Na Whole Blood 134(L) 135 - 145 mmol/L [facility] K Whole Blood 4.1 3.5 - 5.0 mmol/L [facility] Comment: Please note: Patients with WBC >100,000 may have falsely elevated Potassium levels. Contact the Clinical Chemistry Laboratory if there are any questions. ICa Whole Blood 1.21 1.15 - 1.33 mmol/L [facility] Comment: Note: ??Total bilirubin higher than 20 mg/dL may lead to falsely low ionized calcium. CL Whole Blood 104 98 - 107 mmol/L [facility] Gluc Whole Bld 215(H) 65 - 199 mg/dL [facility] Comment:Diabetes: >=200 mg/d L plus symptoms Lactate WB 0.8 0.5 - 2.2 mmol/L [facility] Fraction of Inspired Oxygen, Venous 21 % [facility] Blood Gas Source Venous [facility] Temperature, Venous 35.8 Celsius [facility] Blood 01/04/2022 1:44 AM EDT 01/04/2022 1:44 AM EDT Moi Ledezma MD POINT OF CARE TEST O RDERABLES Performing Organization Address City/State/[facility] Co de Phone Number [facility] [place] [address] * (ABNORMAL) Differential, Automated (01/04/2022 12:50 AM EDT) Neutrophil % 86.1 % [facility] Neutrophil Absolute 5.92 1.70 - 6.10 x10(3)/mc L [facility] Lymph % 9.6 % [facility] Lymphocytes Abs 0.7(L) 0.9 - 3.2 x10(3)/mc L [facility] Monocyte % 3.6 % [facility] Monocyte Abs 0.2(L) 0.3 - 0.9 x10(3)/mc L [facility] Eos % 0.1 % [facility] Eosinophils Abs 0.0 0.0 - 0.4 x10(3)/mc L [facility] Basophil % 0.3 % [facility] Baso Absolute 0.0 0.0 - 0.1 x10(3)/mc L [facility] Immature Gran % 0.30 % [facility] Comment: Immature granulocytes(IG's)percentage and absolute count will include metamyelocytes, myelocytes, and promyelocytes. Blood smears from CBCs yielding IG's will be scanned manually for concordance. If this scan disagrees with the automated IG or if promyelocytes are noted, a manual differential will be performed. Immature Gran Absolute 0.02 0.00 - 0.04 x10(3)/mc L [facility] Blood 01/04/2022 12:5 0 AM EDT 01/04/2022 1:24 AM EDT Narrative Resulting Agency Comment Spec In Lab Sumanth Barnard MD HEMATOLOGY ORDERABL ES [facility] [place] [address] * (ABNORMAL) Hemogram (01/04/2022 12:50 AM EDT) White Blood Cell 6.9 4.0 - 9.5 x10(3)/mc L [facility] Red Blood Cell 3.77(L) 4.00 - 5.21 x10(6)/mc L [facility] Hemoglobin 11.9 11.7 - 15.5 g/dL [facility] Hematocrit 34.4(L) 35.7 - 45.8 % [facility] Mean Cell Volume 91.2 82.6 - 94.4 fL [facility] Mean Cell Hemoglobin 31.6 27.1 - 32.0 pg [facility] Mean Cell Hemoglobin Concentration 34.6 31.7 - 35.0 g/dL [facility] Platelet 197 145 - 357 x10(3)/mc L [facility] RDW Standard Deviation 40.7 37.0 - 46.0 fL [facility] RDW coefficient of variation 12.1 11.5 - 14.1 % [facility] Mean Platelet Volume 10.4 7.6 - 12.9 fL [facility] NRBC% auto 0.0 % [facility] NRBC Absolute 0.000 0.000 - 0.000 x10(3)/mc L [facility] Blood 01/04/2022 12:5 0 AM EDT 01/04/2022 1:24 AM EDT Narrative Resulting Agency Comment Spec In Lab Sumanth Barnard MD HEMATOLOGY ORDERABL ES Performing Organization Address [facility] Co de Phone Number [facility] [place] [address] * (ABNORMAL) Beta Hydroxybutyrate (01/04/2022 12:50 AM EDT) Beta-hydroxybu turate 0.95(H) 0.00 - 0.30 mmol/L [facility] Comment: Reference range: ??0.00-0.30 mmol/L, based on an overnight fast. ??Children may be higher. Blood 01/04/2022 12:5 0 AM EDT 01/04/2022 1:24 AM EDT Narrative Resulting Agency Comment Spec In Lab Moi Ledezma MD CHEMISTRY ORDERABLES Performing Organization Address [facility] Co de Phone Number [facility] [place] [address] * (ABNORMAL) Hemoglobin A1c (01/04/2022 12:50 AM EDT) Hemoglobin A1c 8.0(H) 4.3 - 5.6 % [facility] Comment: Reference Range: 4.3 [...] 1, S6774 Estimated Average Glucose 183 mg/dL [facility] Comment: eAG equivalents for [...] into estimated average glucose values. ??Diabetes Care 2008:31(8):1053-6966. Blood 01/04/2022 12:5 0 AM EDT 01/04/2022 1:24 AM EDT Narrative Resulting Agency Comment Spec In Lab Moi Ledezma MD CHEMISTRY ORDERABLES Performing Organization Address City/State/[facility] Co de Phone Number [facility] [place] [address] * (ABNORMAL) Troponin (01/04/2022 12:50 AM EDT) Troponin-T 0.24(H) 0.00 - 0.00 ng/mL [facility] Comment: The 99th percentile for Troponin T is less than 0.01 ng/mL, any detectable cTnT concentration using this assay should be considered elevated. According to the third universal definition of myocardial infarction the following criteria with a clinical presentation consistent with acute myocardial ischemia meets the diagnosis for a myocardial infarction (IA). Detection of a rise and/or fall of cTnT, with at least one value greater than the 99th percentile (> or = 0.01) and with at least one of the following ?? Symptoms of ischemia ?? New or presumed new significant EQ-dqwzddi-C wave (ST-T) changes or new left bundle [...] additional sample may be indicated. Reference: Third [place] Definition of Myocardial Infarction. Journal of the [place] College [employer] 2012;60:1581-98 Blood 01/04/2022 12:5 0 AM EDT 01/04/2022 1:24 AM EDT Narrative Resulting Agency Comment Spec In Lab Moi Ledezma MD CHEMISTRY ORDERABLES Performing Organization Address [facility] Co de Phone Number [facility] [place] [address] * pro-Brain Natriuretic Peptide (01/04/2022 12:50 AM EDT) NT-proBNP 56 <=124 pg/mL [facility] Blood 01/04/2022 12:5 0 AM EDT 01/04/2022 1:24 AM EDT Narrative Resulting Agency Comment Spec In Lab Moi Ledezma MD CHEMISTRY ORDERABLES Performing Organization Address [facility] Co de Phone Number [facility] [place] [address] * LDL Cholesterol, Direct (01/04/2022 12:50 AM EDT) LDL Cholesterol, Direct 66 mg/dL [facility] Comment: Lowest Risk: <100 mg/dL Lower Risk: 100-129 mg/dL Borderline High Risk: 130-159 mg/dL High Risk: 160-189 mg/dL Very High Risk: >da=118 mg/dL Blood 01/04/2022 12:5 0 AM EDT 01/04/2022 1:24 AM EDT Narrative Resulting Agency Comment Spec In Lab Moi Ledezma MD CHEMISTRY ORDERABLES [facility] [place] [address] * HDL/Cholesterol Profile (01/04/2022 12:50 AM EDT) Cholesterol, Total 136 mg/dL [facility] Comment: Lower Risk: <200 mg/dL Average Risk: 200-239 mg/dL Higher Risk: >rg=824 mg/dL HDL Cholesterol 63 mg/dL [facility] Comment: Males: ?? Higher Risk: <40 mg/dL Females: ?? Higher Risk: <50 mg/dL Cholesterol/HDL Ratio 2.2 ratio [facility] Chol/HDL Interpretation See Note [facility] Comment: Lipid management should be guided by a patient? s ASCVD risk, goals and preferences. ACC/AHA Guidelines recommend high intensity statin if clinical ASCVD or LDL greater than or equal to 190 mg/dL. http://Good4U.com/TXO-UNW-Larwktibx Measure LDL if Total Cholesterol minus HDL Cholesterol is greater than 220 mg/dL. Adults aged 40-75 with LDL 70-189 mg/dL should have their 10 year ASCVD risk estimated with the ACC/AHA ASCVD risk building construction estimator http://tools.acc.org/KTXXN-Xuao-Usillsmyk/ Statin should be discussed if risk greater [...] Ledezma MD CHEMISTRY ORDERABLES Performing Organization Address [facility] de Phone Number [facility] [place] [address] * TSH (01/04/2022 12:50 AM EDT) Thyroid Stimulating Hormone 0.75 0.27 - 4.20 mcIU/mL [facility] Comment: Reference Interval (mcIU/mL): Females: ??First Trimester: 0.23-3.88 ??Second Trimester: 0.22-3.90 ??Third Trimester: 0.44-4.66 Blood 01/04/2022 12:5 0 AM EDT 01/04/2022 1:24 AM EDT Narrative Resulting Agency Comment Spec In Lab Moi Ledezma MD CHEMISTRY ORDERABLES Performing Organization Address [facility] de Phone Number [facility] [place] [address] * Phosphorus (01/04/2022 12:50 AM EDT) Phosphorus 2.7 2.5 - 4.5 mg/dL [facility] Blood 01/04/2022 12:5 0 AM EDT 01/04/2022 1:24 AM EDT Narrative Resulting Agency Comment Spec In Lab Moi Ledezma MD CHEMISTRY ORDERABLES Performing Organization Address [facility] de Phone Number [facility] [place] [address] * Magnesium (01/04/2022 12:50 AM EDT) Magnesium 0.84 0.69 - 1.07 mmol/L [facility] Blood 01/04/2022 12:5 0 AM EDT 01/04/2022 1:24 AM EDT Narrative Resulting Agency Comment Spec In Lab Moi Ledezma MD CHEMISTRY ORDERABLES [facility] [place] [address] * (ABNORMAL) Basic Metabolic Panel (non-fasting) (01/04/2022 12:50 AM EDT) Glucose 224(H) 65 - 199 mg/dL [facility] Comment:Diabetes: >=200 mg/d L plus symptoms Blood Urea Nitrogen 11 8 - 18 mg/dL [facility] Creatinine 0.62(L) 0.70 - 1.20 mg/dL [facility] Sodium 137 135 - 145 mmol/L [facility] Potassium 4.1 3.5 - 5.0 mmol/L [facility] Comment: Please note: ??Patients with WBC >100,000 may have falsely elevated Potassium levels. ??For accurate Potassium quantification in these patients send serum separator tube (gold top) for subsequent determinations. ??Contact the Clinical Chemistry Laboratory if there are any questions. Chloride 105 98 - 107 mmol/L [facility] Carbon Dioxide 22 22 - 31 mmol/L [facility] Anion Gap 10 5 - 15 mmol/L [facility] Calcium 8.5 8.5 - 10.5 mg/dL [facility] Est Glomerular Filtration Rate 107 >=60 mL/min/1. 73 m?? [facility] Comment: This patient? s [...] In Lab Moi Ledezma MD CHEMISTRY ORDERABLES [facility] [place] [address] * COVID-19 PCR (01/04/2022 12:50 AM EDT) SARS-CoV-2 RNA (Rapid) Not Detected Not Detected [facility] Comment: This result should [...] using the Simplexa COVID-19 Direct Assay by [employer] as authorized by the FDA issued Emergency [...] fact sheets at the following FDA website: https://www.fda.gov/medical-devices/vplpqulmwzo-gzrahjk-2752-ouirm-48-axywqpbum- use-a ymoneiiwdpvdd-lduqomm-xakiwxt/qyorh-zuhsdxygfpk-sdkt SARS-CoV-2 Source DRONE PILOT Swab [facility] Nasopharyngeal Swab 01/05/20 12:50 AM EDT 01/04/2022 1:48 AM EDT Comment:Symptoms->Surveillan ce Narrative Resulting Agency Comment Spec In Lab Moi Ledezma MD MICROBIOLOGY - GENER AL ORDERABLES Performing Organization Address City/[facility]/ZIP Co de Phone Number [facility] [place] [address] * EKG 12 Lead (01/04/2022 12:45 AM EDT) Pathologist [facility] Ventricular rate 94 BPM MUSE SYSTEM Atrial Rate 94 BPM MUSE SYSTEM P-R Interval 140 ms MUSE SYSTEM QRS Duration 92 ms MUSE SYSTEM Q-T Interval 370 ms MUSE SYSTEM QTC Calculated (Bezet) 462 ms MUSE SYSTEM Calculated P [place] 69 degrees MUSE SYSTEM Calculated R [place] 2 degrees MUSE SYSTEM Calculated T [place] 89 degrees MUSE SYSTEM INTERPRETATION Normal sinus rhythm Low voltage QRS Nonspecific ST and T wave abnormality Abnormal ECG When compared with ECG of 13-NOV-1999 14:45, ST now depressed in Anterior leads Nonspecific T wave abnormality now evident in Lateral leads Confirmed by MD Umm, Geraldo Espinoza ([id number]) on 01/04/2022 1:03:04 PM MUSE SYSTEM 01/04/2022 12:4 5 AM EDT 01/04/2022 1:03 PM EDT Moi Ledezma MD ECG ORDERABLES MUSE SYSTEM * POCT Glucose (01/04/2022 12:07 AM EDT) Glucose, POC 126 65 - 199 mg/dL [facility] Comment: Supplemental ranges: <140 mg/dL before meals <180 mg/dL all other times of the day Blood 01/04/2022 12:0 7 AM EDT 01/04/2022 12:07 AM EDT Moi Ledezma MD POINT OF CARE TEST O RDERABLES Performing Organization Address City/State/[facility] Co de Phone Number [facility] [place] [address] * CARDIAC CATHETERIZATION (01/03/2022 11:45 PM EDT) Anatomical Region Laterality Modality Other Narrative 01/03/2022 11:54 PM EDT ?[facility] ? Cardiac Catheterization/Intervention Report ? Patient Name: Afua Rosales. ? Procedure Date: 01/03/2022 ? A #: [id number] ? Primary Physician: Moi Ledezma ? Case #: [id number] ? File Name: [id number] ? Catheterization Order Number: [id number] ? [facility] ? Final Report [place], [place] ? Patient Name: ? Afua A. Silver ?ID#: ?[id number] ? : ?1975 ? Procedure Date: ? [...] was ?designated as ASA Class IV. The [facility] clinical frailty scale is 5: Mildly ?Frail. ? Diagnostic Tests: ?Electrocardiography: ? EKG was assessed by ECG. EKG was Abnormal. EKG showed ST Deviation ? >= 0.5 mm and other abnormality. ?Medications Prior to Procedure: ? Aspirin, Statin and Thrombolytic (any). ? Indications for Diagnostic Cath: ?The priority of the diagnostic procedure was Emergent. 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 ??Imaging ?was successful. ??Image quality was excellent. ??The mid RCA showed severe ?diffuse atherosclerotic plaque. ??Measurements were performed after ?pre-dilation. ?Post Intervention: The stent was well expanded and apposed. ?Intravascular Ultrasound was performed in the distal RCA using a 6 Fr JR ?4 SH guiding catheter and a 3.5 Fr [place] [place] ST ??20 Mhz. ?Imaging was successful. ??Image [...] dose administered prior to arrival in the aquatic laborer. ?Recommended anti-platelet/anti-thrombotic regimen: ?Start aspirin 81 mg daily now and continue for indefinitely. ?Start clopidogrel 75 mg daily now and continue for 12 months then stop. ?These recommendations are made at the time of the intervention. Patient ?and provider preferences or a changing clinical situation may require ?modification of this regimen. Consult [facility] Interventional Cardiology for ?questions. [...] against any medical treatment. Consult ?http://tools.acc.org/DAPTriskapp/#!/content/calculator/ or [facility] ?Interventional Cardiology for questions [...] Ledezma MD - 01/14/[address] [facility] Cardiac Catheterization/Intervention Report Patient Name: Afua Rosales Procedure Date: 01/03/2022 A #: [id number] Primary Physician: Moi Ledezma Case #: [id number] File Name: [id number] Catheterization Order Number: [id number] [facility] FinalReport [place], [place] Patient Name: Afua Rosales ID#:[id number] :1975 Procedure Date: January 03, 2022 Case [...] patientwas designated as ASA Class IV. The [facility] clinical frailty scale is 5:Mildly Frail. Diagnostic Tests: Electrocardiography: EKG was assessed by ECG. EKG was Abnormal. EKG showed STDeviation >= 0.5 mm and other abnormality. Medications Prior to Procedure: Aspirin, Statin and Thrombolytic (any). Indications for Diagnostic Cath: The priority of the diagnostic procedure was Emergent. Theindication for the aquatic laborer visit is ACS less than or [...] SH guiding catheter and a 3.5 Fr [place] ST 20 Mhz.Imaging was successful. Image quality was excellent. The mid RCA showedsevere diffuse atherosclerotic plaque. Measurements were performed after pre-dilation. Post Intervention: The stent was well expanded and apposed. Intravascular Ultrasound was performed in the distal RCA using a 6Fr JR 4 SH guiding catheter and a 3.5 Fr [place] ST 20 Mhz. Imaging was successful. Image quality was excellent. The distalRCA showed severe diffuse atherosclerotic plaque. Measurements were performed after pre-dilation. Post Intervention: The stent was well expanded and apposed. Indication for Intervention: Coronary intervention was indicated for primary therapy for an acute myocardial infarction. The priority for the procedure was Emergent.[facility] for the procedure was STEMI (after [...] The lesion was predilated with a 2.00mm [id number] MM balloon with a maximum inflation pressure [...] across thislesion. Vessel flow pre intervention was [place] 3. Lesion lengthwas 32mm. This lesion was [...] dose administered prior to arrival in the aquatic laborer. Recommended anti-platelet/anti-thrombotic regimen: Start aspirin 81 mg daily now and continue for indefinitely. Start clopidogrel 75 mg daily now and continue for 12 months thenstop. These recommendations are made at the time of the intervention.Patient and provider preferences or a changing clinical situation mayrequire modification of this regimen. Consult [facility] Interventional Cardiologyfor questions. The [...] or against any medical treatment.Consult http://tools.acc.org/DAPTriskapp/#!/content/calculator/ or [facility] Interventional Cardiology for questions [...] sedation nurse. Case time =00:58. Dr. Moi Ledzema M.D. performed the coronary angiography, leftheart catheterization, stent insertion-coronary, IVUS # coronary, accesssite angiography, vascular ultrasound, vascular closure device and ABG. Moi Ledezma M.D. Electronically Signed by: Mio Ledezma M.D. Report Finalized: 01/03/2022 23:49 Report Last Ammended: 01/14/2022 14:49 Moi Ledezma MD CARDIAC CATH ORDERAB LES * (ABNORMAL) POCT Glucose (01/03/2022 11:31 PM EDT) Glucose, POC 200(H) 65 - 199 mg/dL [facility] Comment: Supplemental ranges: <140 mg/dL before meals <180 mg/dL all other times of the day Blood 01/03/2022 11:3 1 PM EDT 01/03/2022 11:31 PM EDT Moi Ledezma MD POINT OF CARE TEST O RDERABLES [facility] [place] [address] * (ABNORMAL) POCT Glucose (01/03/2022 10:56 PM EDT) Glucose, POC 265(H) 65 - 199 mg/dL [facility] Comment: Supplemental ranges: <140 mg/dL before meals <180 mg/dL all other times of the day Blood 01/03/2022 10:5 6 PM EDT 01/03/2022 10:56 PM EDT Moi Ledezma MD POINT OF CARE TEST O RDERABLES [facility] [place] [address] * (ABNORMAL) Point of Care Blood Gas Historical (01/03/2022 10:38 PM EDT) pH, POC 7.35 7.35 - 7.45 [facility] pCO2, POC 46(H) 35 - 45 mmHg [facility] pO2, POC 93 85 - 104 mmHg [facility] Base Excess, POC 0.0 -3.0 - 3.0 mmol/L [facility] Bicarbonate, POC 25.3 20.0 - 26.0 mmol/L [facility] Sodium, POC 141 135 - 145 mmol/L [facility] POC Potassium 3.7 3.5 - 5.0 mmol/L [facility] Ionized Calcium, POC 1.26 1.15 - 1.33 mmol/L [facility] POC Hematocrit 35.0 34.0 - 45.0 % [facility] POC Calc Hgb 11.9 11.2 - 15.7 g/dL [facility] Comment:The calculation of h emoglobin from hematocrit assumes a normal MCHC. POC Bgas Loc CC LAB [facility] Blood 01/03/2022 10:3 8 PM EDT 01/09/2022 12:00 PM EDT Geraldo Salomon MD CHEMISTRY ORDERABLES [facility] [place] [address] * (ABNORMAL) POCT Glucose (01/03/2022 10:37 PM EDT) Glucose, POC 63(L) 65 - 199 mg/dL [facility] Comment: Supplemental ranges: <140 mg/dL before meals <180 mg/dL all other times of the day Blood 01/03/2022 10:3 7 PM EDT 01/03/2022 10:37 PM EDT Moi Ledezma MD POINT OF C[place] [address] documented in this encounter Visit Diagnoses Diagnosis [...] Routine documented in this encounter Care Teams Sprayer Automatic Spray Machine Relationship Specialty Start Date End Date Felisha Juan, SPECIAL EDUCATION INSTRUCTOR [address] [place] [address] PCP - General Family Medicine 10/29/15 01/29/22 documented as of this encounter
--- OUTSIDE RECORDS SUMMARY | 2024-06-19 15:12 | XMS_ITS | Encounter Summary ---
Author Organization [facility] [place] [address] Care Team Providers Care Adolescent Specialist Name Role Phone Felisha Juan APRN Primary Care Provider + [phone] Encounter Details Date Type Department Care Team (Late st Contact Info) Description 01/07/2022 Telephone Cardiac Rehab [facility] [place] [phone] Nicole Walters RN Social History Tobacco Use [...] PM EDT Cardiac rehab- Patient discharged from [facility] prior to our team meeting her. She is s/p STEMI, PCI. I called her today and confirmed cardiac rehab referral to [facility]. Will send along her heart diagram, home walk program and brochure. documented in this encounter Plan of Treatment Not on file documented as of this encounter Visit Diagnoses Not on filedocumented in this encounter Care Teams Adolescent Specialist Relationship Specialty Start Date End Date Felisha Juan APRN [address] [place] [address] PCP - General Family Medicine 10/29/15 01/29/22 documented as of this encounter
--- OUTSIDE RECORDS SUMMARY | 2024-06-19 15:12 | XMS_ITS | Encounter Summary ---
Author Organization Pending Sale To [facility] Address [facility] [place] [address] Care Team Providers Care Hplc Chemist Name Role Phone Karie Lindsey APRN Primary Care Provider + [phone] Encounter Details Date Type Department Care Team (Late st Contact Info) Description 04/29/2024 Ancillary Procedure Radiology Library at [facility] [place] [address] Karie Lindsey, [address] [place] [address] Social History Tobacco Use Types [...] on filedocumented in this encounter Care Teams Hplc Chemist Relationship Specialty Start Date End Date Karie Lindsey, BREAD PACKER [address] [place] [address] PCP - General Internal Medicine 04/02/24 documented as of this encounter
--- OUTSIDE RECORDS SUMMARY | 2024-06-19 15:13 | XMS_ITS | Encounter Summary ---
Author Organization [facility] Address [facility] [place] [address] Care Team Providers Care Database Developer Name Role Phone Carey Hall MD Primary Care Provider [phone] Reason for Visit * Reason Comments Diabetic Foot Care Other left foot 2nd toe in jury Encounter Details Date Type Department Care Team (Late st Contact Info) Description 02/20/2015 8:30 AM EDT Office Visit Podiatry at [address] [place] [address] Ritesh Mackey Jr., [address] [place] [address] Dermatophytosis of nail; Foot pain, unspecified laterality; [...] on palpation. Nails display clinical signs of fshqhio-lrbixraiqc-hoktri in appearance, thickened greater than 2mm, Brittle [...] uncontrolled documented in this encounter Care Teams Database Developer Relationship Specialty Start Date End Date Carey Hall MD [address] [place] [address] PCP - General 06/25/10 10/28/15 documented as of this encounter
--- OUTSIDE RECORDS SUMMARY | 2024-06-19 15:13 | XMS_ITS | Encounter Summary ---
Author Organization [facility] Address [facility] [place] [address] Care Team Providers Care Generation Technician Name Role Phone Yessica Felisha FINANCIAL SERVICES MANAGER Primary Care Provider Encounter Details Date Type Department Care Team (Late st Contact Info) Description 11/21/2020 Orders [place] [address] Carlos Ann MD [facility] [place] [address] Controlled type 1 diabetes mellitus with retinopathy [...] severity documented in this encounter Care Teams Generation Technician Relationship Specialty Start Date End Date Felisha Juan APRN [address] [place] [address] PCP - General Family Medicine 10/29/15 01/29/22 documented as of this encounter
--- OUTSIDE RECORDS SUMMARY | 2024-06-19 15:13 | XMS_ITS | Encounter Summary ---
Author Organization [facility] Address [facility] [place] [address] Care Team Providers Care Remote Sensing Advisor Name Role Phone Jose Pittman Primary Care Provider + [phone] Reason for Visit * Reason Onset Date Comments Medication Refill 11/09/2017 Encounter Details Date Type Department Care Team (Late st Contact Info) Description 11/09/2017 Refill [place] [address] Francoise Tan [facility] [place] [address] Diabetes mellitus without complication Social History Tobacco [...] uncontrolled documented in this encounter Care Teams Remote Sensing Advisor Relationship Specialty Start Date End Date Jose Pittman PA [address] [place] [address] PCP - General Internal Medicine 01/30/22 04/01/24 documented as of this encounter
--- OUTSIDE RECORDS SUMMARY | 2024-06-19 15:13 | XMS_ITS | Encounter Summary ---
Author Organization [facility] Address [facility] [place] [address] Care Team Providers Care Baker Name Role Phone Felisha Juan APRN Primary Care Provider + [phone] Encounter Details Date Type Department Care Team (Latest Contact Info) Description 04/18/2016 9:30 AM EDT Office [place] [address] Rosie Tao MD [facility] [place] [address] Type 1 diabetes mellitus with proliferative diabetic [...] documented in this encounter Progress Notes * Rsoie Tao MD - 04/18/2016 9:30 AM EDT [...] and polydypsia. She was followed by an social work case manager- Dr Hernandez in [place], [place]. She is here for establishment of [...] in 4 weeks, RTC in 4 months intermediate designer diabetes care: Medications - Outpatient treatment regimen recommendations pending based on the hospital course. Monitoring - continue BG tid ac & hs Diet - low fat/low carb diet Exercise - weight-bearing exercise 30 min/day, as tolerated Thank you for the consult To be D/w Dr Ann, this was a resident only encounter Rosie Tao MD Endocrine Fellow Pager- [phone] Insulin Discharge Instructions . Instructions for Lantus [...] day to have your insulin doses adjusted. [facility] [place] office * Carlos Ann MD [...] uncontrolled documented in this encounter Care Teams Baker Relationship Specialty Start Date End Date Felisha Juan, DEMETRIS [address] [place] [address] PCP - General Family Medicine 10/29/15 01/29/22 documented as of this encounter
--- OUTSIDE RECORDS SUMMARY | 2024-06-19 15:13 | XMS_ITS | Encounter Summary ---
Author Organization [facility] [place] [address] Care Team Providers Care Cargo Checker Name Role Phone Felisha Juan APRN Primary Care Provider + [phone] Reason for Visit * Reason Onset Date Comments Pump/sensor 08/31/2019 Encounter Details Date Type Department Care Team (Late st Contact Info) Description 08/31/2019 Telephone [place] [phone] Tosin Solares Pump/sensor Social History Tobacco Use Types Packs/Day Years Used Date Smoking Tobacco: Never Smokeless Tobacco: Never Sex and Gender Information Value Date Recorded Sex Assigned at Not on file Gender Identity Not on file Sexual Orientation Not on file documented as of this encounter Miscellaneous Notes * Telephone Encounter - Tosin Solares - 08/31/2019 10:47 AM EST Documentation request received from [place] [address] office notes routed Confirmed 08/31 documented in this encounter Plan of Treatment Not on file documented as of this encounter Visit Diagnoses Not on filedocumented in this encounter Care Teams Cargo Checker Relationship Specialty Start Date End Date Felisha Juan APRN [address] [place] [address] PCP - General Family Medicine 10/29/15 01/29/22 documented as of this encounter
--- OUTSIDE RECORDS SUMMARY | 2024-06-19 15:13 | XMS_ITS | Encounter Summary ---
Author Organization [facility] Address [facility] [place] [address] Care Team Providers Care Finisher Fine Diamond Dies Name Role Phone Felisha Juan APRN Primary Care Provider + [phone] Reason for Visit * Reason Onset Date Comments Medication Problem 11/19/2020 Encounter Details Date Type Department Care Team (Late st Contact Info) Description 11/19/2020 Telephone [place] [address] Carlos Ann MD [facility] [place] [address] Medication Problem Social History Tobacco Use Types [...] he asked to have them sent to [facility] instead. Delano stated the phone number to [employer] is [phone]. Please call Delano with any questions . [...] on filedocumented in this encounter Care Teams Finisher Fine Diamond Dies Relationship Specialty Start Date End Date Felisha Juan, DEMETRIS [address] [place] [address] PCP - General Family Medicine 10/29/15 01/29/22 documented as of this encounter
--- OUTSIDE RECORDS SUMMARY | 2024-06-19 15:13 | XMS_ITS | Encounter Summary ---
Author Organization [facility] [place] [address] Care Team Providers Care Senior Benefits Manager Name Role Phone Yessica Felisha WILLSON Primary Care Provider [phone] Encounter Details Date Type Department Care Team (Late st Contact Info) Description 11/23/2020 Notes Only Endocrinology at [facility] [place] [address] Micki Leone, CHESTNUT TANNER Social History Tobacco Use Types Packs/Day Years Used Date Smoking Tobacco: Never Smokeless Tobacco: Never Sex and Gender Information Value Date Recorded Sex Assigned at Not on file Gender Identity Not on file Sexual Orientation Not on file documented as of this encounter Progress Notes * Micki Leone RMA - 11/23/2020 1:18 PM EDT [facility] for Diabetic Supplies faxed to [employer]. Confirmation received. documented in this encounter Plan of Treatment Not on file documented as of this encounter Visit Diagnoses Not on filedocumented in this encounter Care Teams Senior Benefits Manager Relationship Specialty Start Date End Date Felisha Juan APRN [address] [place] [address] PCP - General Family Medicine 10/29/15 01/29/22 documented as of this encounter
--- OUTSIDE RECORDS SUMMARY | 2024-06-19 15:13 | XMS_ITS | Encounter Summary ---
Author Organization [facility] Address [facility] [place] [address] Care Team Providers Care Electric Arc Welder Name Role Phone Carey Hall MD Primary Care Provider Reason for Visit * Reason Comments Routine Foot Care Encounter Details Date Type Department Care Team (Late st Contact Info) Description 04/11/2011 10:45 AM EDT Office Visit Podiatry [address] [place] [address] Ritesh Mackey Jr., DPM [address] [facility] [place] [address] Other specified disease of nail (Primary Dx) [...] encounter Miscellaneous Notes * Miscellaneous - Carrington, Carpenter Wooden Tank Erecting - 05/01/2011 3:53 PM EDT documented in this encounter Plan of Treatment Not on file documented as of this encounter Visit Diagnoses Diagnosis Other specified disease of nail- Primary documented in this encounter Care Teams Electric Arc Welder Relationship Specialty Start Date End Date Carey Hall MD [address] [place] [address] PCP - General 06/25/10 10/28/15 documented as of this encounter
--- OUTSIDE RECORDS SUMMARY | 2024-06-19 15:13 | XMS_ITS | Encounter Summary ---
Author Organization [facility] [place] [address] Care Team Providers Care Drum Barker Operator Name Role Phone Felisha Juan DEMETRIS Primary Care Provider + [phone] Reason for Visit * Reason Comments Diabetes Encounter Details Date Type Department Care Team (Latest Contact Info) Description 09/29/2017 10:30 AM EST Office [place] [address] Francoise Tan APRN [facility] [address] [place] [address] Type 1 diabetes mellitus with proliferative retinopathy [...] Tan APRN - 09/29/2017 10:30 AM EST [facility] in [place] for dental care. Soft brush and floss Contact [facility] [place] documented in this encounter Progress Notes * [...] TSH ,microalbumin. Gaver her information to contact [facility] for dental care. This was a 38 minute office visit with 27 minutes spent counseling [id number] with patient and friend in the management [...] Stimulating Hormone 0.63 0.27 - 4.20 mlU/ML [facility] Blood specimen (specimen) 09/29/2017 11:39 AM EST 09/29/2017 11:49 AM EST Narrative Resulting Agency Comment Spec In Lab Francoise Tan APRN CHEMISTRY ORDERABLE S [facility] [place] [address] * (ABNORMAL) Hemoglobin A1c (09/29/2017 11:39 AM EST) Hemoglobin A1c 7.4(H) 4.3 - 5.6 % [facility] [...] Mellitus, Diabetes Care 2013; 36: Suppl. 1, G07-10 Estimated Average Glucose 166 mg/dL [facility] Comment: [...] into estimated average glucose values. ??Diabetes Care 2008:31(8):8689-9455. Blood specimen (specimen) 09/29/2017 11:39 AM EST 09/29/2017 11:49 AM EST Narrative Resulting Agency Comment Spec In Lab Francoise Tan APRN CHEMISTRY ORDERABLE S [facility] [place] [address] * U Albumin/Cre Ratio (09/29/2017 11:30 AM [...] 2, 357? 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
--- OUTSIDE RECORDS SUMMARY | 2024-06-19 15:13 | XMS_ITS | Encounter Summary ---
Author Organization [facility] Address [facility] [place] [address] Care Team Providers Care Health And Safety Inspector Name Role Phone Felisha Juan APRN Primary Care Provider + [phone] Reason for Visit * Reason Comments Diabetes Encounter Details Date Type Department Care Team ([facility] Contact Info) Description 08/22/2016 10:00 AM EST Office [place] [address] Rosie Diamond MD [facility] [place] [address] Pre-existing type 1 diabetes mellitus in childbirth [...] day to have your insulin doses adjusted. [facility] Endocrine clinic office documented in this encounter [...] and polydypsia. She was followed by an small order cutter- Dr Hernandez in [place], [place]. She is here for establishment of care since she has moved to [facility]. Her last visit was the [...] in 4 weeks, RTC in 4 months [facility] diabetes care: Medications - Outpatient treatment regimen recommendations pending based on the hospital course. Monitoring - continue BG tid ac & hs Diet - low fat/low carb diet Exercise - weight-bearing exercise 30 min/day, as tolerated Thank you for the consult D/w Dr Ann, this was a resident only encounter Rosie Diamond MD Endocrine Fellow Pager- [phone] Insulin Discharge Instructions . Instructions for Lantus [...] juice or regular (not diet) soda 6 [employer] small box of raisins 4 glucose tablets [...] day to have your insulin doses adjusted. [facility] Endocrine clinic office * Carlos Ann MD [...] delivery documented in this encounter Care Teams Health And Safety Inspector Relationship Specialty Start Date End Date Felisha Juan APRN [address] [place] [address] PCP - General Family Medicine 10/29/15 01/29/22 documented as of this encounter
--- OUTSIDE RECORDS SUMMARY | 2024-06-19 15:13 | XMS_ITS | Encounter Summary ---
Author Organization [facility] Address [facility] [place] [address] Care Team Providers Care Forest Resources Professor Name Role Phone Felisha Juan APRN Primary Care Provider [phone] Reason for Visit * Reason Onset Date Comments Medication Refill 10/09/2020 Encounter Details Date Type Department Care Team (Late st Contact Info) Description 10/09/2020 [place] [address] Breana Tee MD [facility] [place] [address] Controlled type 1 diabetes mellitus with retinopathy [...] 8:24 AM EST Script needs to go [employer] [id number] [facility] Office [address] [place] [address] Patient test 6 times daily Transfer from previous [facility] Provider documented in this encounter Plan of Treatment Not on file documented as of this encounter Visit Diagnoses Diagnosis Controlled type 1 diabetes mellitus with retinopathy of both eyes, macular edema presence unspecified, unspecified retinopathy severity documented in this encounter Care Teams Forest Resources Professor Relationship Specialty Start Date End Date Felisha Juan APRN [address] [place] [address] PCP - General Family Medicine 10/29/15 01/29/22 documented as of this encounter
--- OUTSIDE RECORDS SUMMARY | 2024-06-19 15:13 | XMS_ITS | Encounter Summary ---
Author Organization [facility] Address [facility] [place] [address] Care Team Providers Care Vp Global Marketing Solutions Name Role Phone Yessica Felisha WILLSON Primary Care Provider [phone] Encounter Details Date Type Department Care Team (Late st Contact Info) Description 01/03/2022 Notes [place] [address] Madi Briceño MD [facility] [place] [address] Social History Tobacco Use Types Packs/Day Years [...] on filedocumented in this encounter Care Teams [employer] Relationship Specialty Start Date End Date Felisha Juan APRN [address] [place] [address] PCP - General Family Medicine 10/29/15 01/29/22 documented as of this encounter
--- OUTSIDE RECORDS SUMMARY | 2024-06-19 15:13 | XMS_ITS | Encounter Summary ---
Author Organization [facility] Address [address] [place] [address] Care Team Providers Care Angiographer Name Role Phone Unknown, Provider Primary Care Provider Unava ilable Encounter Details Date Type Department Care Team (Late st Contact Info) Description 01/17/2016 Results Only [facility] [phone] Felisha Mckinnon NP [address] [place], [place] [id number] Social History Tobacco Use Types Packs/Day Years [...] ? KAILEY ROSALES ? Accession #: ? [id number] ? : ? 1975 (Age: 40) ??F ?Collect Date: ? 01/17/2016 ? Location: ? [facility] ? Receive Date: ? 01/18/2016 ? Provider: FLEISHA MCKINNON RESTRIKE HAMMER OPERATOR Copy to: ? Final Report SPECIMEN [...] types 16,18,31,33,35, 39,45,51,52,56,58, 59,66, and 68 by portfolio director mediated amplification. Comments Document reviewed and electronically signed by: ? System Interface ? Report date: 02/01/2016 By the signature above, the attending physician certifies that he/she has personally conducted a gross and/or microscopic examination of the described specimens and rendered or confirmed the above diagnosis. End of Report [facility] 01/17/2016 01/18/2016 us Felisha Mckinnon RESTRIKE HAMMER OPERATOR PATHOLOGY ORDERABLES Final Res ult [facility] [address] [place] [address] documented in this encounter Visit Diagnoses Not on filedocumented in this encounter Care Teams Angiographer Relationship Specialty Start Date End Date Unknown, Provider, PCP - General 01/18/16 documented as of this encounter
--- OUTSIDE RECORDS SUMMARY | 2024-06-19 15:13 | XMS_ITS | Encounter Summary ---
Author Organization [facility] [place] [address] Care Team Providers Care Weaver Dobby Loom Name Role Phone Felisha Juan APRN Primary Care Provider + [phone] Encounter Details Date Type Department Care Team (Late st Contact Info) Description 07/30/2017 Notes Only Endocrinology at [facility] [place] [address] Huong Ovalle, RN Social History Tobacco Use [...] on filedocumented in this encounter Care Teams Weaver Dobby Loom Relationship Specialty Start Date End Date Felisha Juan APRN [address] [place] [address] PCP - General Family Medicine 10/29/15 01/29/22 documented as of this encounter
--- OUTSIDE RECORDS SUMMARY | 2024-06-19 15:13 | XMS_ITS | Encounter Summary ---
Author Organization Counts Include [facility] Address [facility] [place] [address] Care Team Providers Care Company Secretary Name Role Phone Felisha Juan APRN Primary Care Provider + [phone] Encounter Details Date Type Department Care Team ([facility] st Contact Info) Description 03/03/2016 Telephone [place] [phone] Akanksha Beltrán LPN Social History Tobacco Use [...] endo nurse line from Chary Boyd at [facility]. Insurance will not cover humalog will cover Novolog. Okay to switch with dosing is needed. ext [phone] documented in this encounter Plan of Treatment Not on file documented as of this encounter Visit Diagnoses Not on filedocumented in this encounter Care Teams Company Secretary Relationship Specialty Start Date End Date Felisha Juan, DEMETRIS [address] [place] [address] PCP - General Family Medicine 10/29/15 01/29/22 documented as of this encounter
--- OUTSIDE RECORDS SUMMARY | 2024-06-19 15:13 | XMS_ITS | Encounter Summary ---
Author Organization [facility] Address [facility] [address] Care Team Providers Care Dishing Machine Operator Name Role Phone Carey Hall MD Primary Care Provider [phone] Encounter Details Date Type Department Care Team (Late st Contact Info) Description 08/08/2010 11:00 AM EST Office Visit Podiatry [address] [place] [address] Rtiesh Mackey Jr., [facility] [address] [facility] [place] [address] Social History Tobacco Use Types Packs/Day Years Used Date Smoking Tobacco: Never Assessed Sex and Gender Information Value Date Recorded Sex Assigned at Not on file Gender Identity Not on file Sexual Orientation Not on file documented as of this encounter Plan of Treatment Not on file documented as of this encounter Visit Diagnoses Not on filedocumented in this encounter Care Teams Dishing Machine Operator Relationship Specialty Start Date End Date Carey Hall MD [address] [place] [address] PCP - General 06/25/10 10/28/15 documented as of this encounter
--- OUTSIDE RECORDS SUMMARY | 2024-06-19 15:13 | XMS_ITS | Encounter Summary ---
Author Organization [facility] Address [facility] [place] [address] Care Team Providers Care Immigration Lawyer Name Role Phone Felisha Juan APRN Primary Care Provider + [phone] Encounter Details Date Type Department Care Team ([facility] st Contact Info) Description 11/13/2020 1:00 PM EDT Office [place] [address] Breana Tee MD [facility] [place] [address] Controlled type 1 diabetes mellitus with retinopathy [...] 1:00 PM EDT Diabetes Follow-up Patient Evaluation [facility] Name: Kailey Hernandez Date: 11/13/20 CC: Diabetes management HPI: Kailey Hernandez is a 45 y.o.female with PMH significant for DM1 c/b b/l retinopathy and blindness who comes to the clinic for management of diabetes. Ms. Hernandez is doing well with no acute concerns about her DM management. Initially during the visit, she stated that she received a letter from [facility] that stated she can no [...] snacks/day * Breakfast: PB sandwich * Lunch: [place]? steak on a burger bun * Dinner: Part of a subway sandwich * Snacks: Crackers, cheese * Desserts: No * Drinks: No 2019QI Exercise: Predominantly walking Prevention: Statin: Pravastatin 20 mg (no hx of intolerance) NATE/ARB: None Support and Resources: - Visit with director of hospitality in the last 2 years: No ROS: [...] them as documented. Olegario Wright DO, MS Exit Booth Agentfabricator industrial furnace Section of Endocrinology [facility] documented in this encounter Plan of Treatment Not on file documented as of this encounter Visit Diagnoses Diagnosis Controlled type 1 diabetes mellitus with retinopathy of both eyes, macular edema presence unspecified, unspecified retinopathy severity documented in this encounter Care Teams Immigration Lawyer Relationship Specialty Start Date End Date Felisha Juan, DEMETRIS [address] [place] [address] PCP - General Family Medicine 10/29/15 01/29/22 documented as of this encounter
--- OUTSIDE RECORDS SUMMARY | 2024-06-19 15:13 | XMS_ITS | Encounter Summary ---
Author Organization [facility] [place] [address] Care Team Providers Care Conference Planning Manager Name Role Phone Felisha Juan APRN Primary Care Provider [phone] Encounter Details Date Type Department Care Team (Late st Contact Info) Description 11/09/2017 Orders Only [place] [address] Francoise Tan APRN [facility] [place] [address] Social History Tobacco Use Types Packs/Day Years [...] on filedocumented in this encounter Care Teams Conference Planning Manager Relationship Specialty Start Date End Date Felisha Juan APRN [address] [place] [address] PCP - General Family Medicine 10/29/15 01/29/22 documented as of this encounter
--- OUTSIDE RECORDS SUMMARY | 2024-06-19 15:13 | XMS_ITS | Encounter Summary ---
Author Organization [facility] Address [facility] [place] [address] Care Team Providers Care Recoater Name Role Phone Yessica Felisha NAIL MAKING MACHINE TENDER Primary Care Provider Encounter Details Date Type Department Care Team (Late st Contact Info) Description 01/03/2022 External Results [place] [address] Social History Tobacco Use Types Packs/Day Years [...] on filedocumented in this encounter Care Teams Recoater Relationship Specialty Start Date End Date Felisha Juan APRN [address] [place] [address] PCP - General Family Medicine 10/29/15 01/29/22 documented as of this encounter
--- OUTSIDE RECORDS SUMMARY | 2024-06-19 15:13 | XMS_ITS | Encounter Summary ---
Author Organization [facility] Address [facility] [place] [address] Care Team Providers Care Clerical Methods Analyst Name Role Phone Felisha Juan APRN Primary Care Provider + [phone] Reason for Visit * Reason Comments Diabetes * Consultation (Routine) - Closed Specialty Diagnoses / Procedures Referred By Contdelmi t Referred To Contact Endocrinology Diagnoses Diabetes Mellitus Type 1, uncontrolled w/ Ophthalmic comps Felisha Juan APRN [address] [place] [address] [facility] Endocrinology [address] [place] [phone] Referral ID Status Reason Start Date Expiration Date V isits Requested Visits Authorized [id number] Closed Consult, Test & Treat Connection Center 10/29/2015 10/28/2016 1 1 Encounter Details Date Type Department Care Team (Late st Contact Info) Description 12/11/2015 9:30 AM EDT Office [place] [address] Olegario Wright DO [facility] [place] [address] Rosie Tao MD [facility] [place] [address] Type 1 diabetes mellitus with [...] to have your insulin doses adjusted. [facility] Endocrine clinic office documented in this encounter Progress Notes * Olegario Wright DO - 12/18/2015 3:49 PM EDT I have seen the patient and reviewed Dr Tao's history and I agree with the details as written. The assessment and plan were formulated in discussion with me and I agree with them as documented. Olegario Wright DO, MS Staff Glass Blowing Lathe Operator * Rosie Tao MD - 12/10/2015 1:32 PM EDT Diabetes Outpatient Consult Date of Consultation: 12/10/2015 Consult Requested by: Dr. Juan Reason for Consultation: Kailey Hernandez is a 40 y.o. years old female with PMH significant for DM .We are being consulted to assist with diabetes management and to provide a review of intermediate diabetes care. Diabetes History: Kailey Hernandez has had diabetes Type 1 since age 7 years. When initially diagnosed, she was extremely fatigued, had polyuria, weight loss, and polydypsia. She was followed by an bale opener- Dr Hernandez in [place], [place]. She is here for establishment of care since she has moved to [facility]. She currently used lantus and a custom [...] in 4 weeks, RTC in 4 months computer terminal operator diabetes care: Medications - Outpatient treatment regimen recommendations pending based on the hospital course. Monitoring - continue BG tid ac & hs Diet - low fat/low carb diet Exercise - weight-bearing exercise 30 min/day, as tolerated Thank you for the consult D/w Dr Adriana Tao MD Endocrine Fellow Pager- [phone] Insulin Discharge Instructions . Instructions for Lantus [...] to have your insulin doses adjusted. [facility] Endocrine clinic office documented in this [...] LABORATORY Creatinine, Urine 75 mg/dL [facility] Urine specimen (specimen) 08/22/2016 9:06 AM EST 08/22/2016 9:20 AM EST Narrative Resulting Agency Comment Spec In Lab Olegario Wright DO URINE ORDERABLES [facility] [place] [address] * Lipid panel (fasting) (08/22/2016 8:51 AM [...] greater than or equal to 190 mg/dL. http://circ.ahajournals.org/content/early/.cir.3774613055.15159.7a Adults aged 40-75 with LDL 70-189 mg/dL should have their 10 year ASCVD risk estimated with the ACC/AHA ASCVD risk sales estimator http://tools.acc.org/ALSKR-Zzhf-Jpcjemzhd/ Statin should be discussed if risk greater [...] CHEMISTRY ORDERABLES [facility] [place] [address] * (ABNORMAL) Hemoglobin A1c (08/22/2016 8:51 AM [...] Mellitus, Diabetes Care 2013; 36: Suppl. 1, J67-46 Estimated Average Glucose 166 mg/dL [facility] [...] resources are available on the ADA website: http://Swogo.[facility] [place]/DHMCadacalc Tj JESSICA, Mal J, Bk R, et al. ??Translating the A1C assay into estimated average glucose values. ??Diabetes Care 2008:31(8):5570-8090. Blood specimen (specimen) 08/22/2016 8:51 AM EST 08/22/2016 8:58 AM EST Narrative Resulting Agency Comment Spec In Lab Olegario Wright DO CHEMISTRY ORDERABLES Performing Organization Address City/State/[facility] Co de Phone Number [facility] [place] [address] documented in this encounter Visit Diagnoses Diagnosis Type 1 diabetes mellitus with diabetic retinopathy, macular edema presence unspecified, unspecified retinopathy severity documented in this encounter Care Teams Clerical Methods Analyst Relationship Specialty Start Date End Date Felisha Juan APRN [address] [place] [address] PCP - General Family Medicine 10/29/15 01/29/22 documented as of this encounter
--- OUTSIDE RECORDS SUMMARY | 2024-06-19 15:13 | XMS_ITS | Encounter Summary ---
Author Organization [facility] Address [facility] [place] [address] Care Team Providers Care Board Winder Name Role Phone Carey Hall MD Primary Care Provider [phone] Reason for Visit * Reason Comments Nail Problem Encounter Details Date Type Department Care Team ([facility] Contact Info) Description 09/19/2011 10:15 AM EST Office Visit Podiatry at [address] [place] [address] Ritesh Mackey Jr., DPM [address] [place] [address] [place] [address] Other specified disease of nail (Primary Dx) [...] Primary documented in this encounter Care Teams Board Winder Relationship Specialty Start Date End Date Carey Hall MD [address] [place] [address] PCP - General 06/25/10 10/28/15 documented as of this encounter
--- OUTSIDE RECORDS SUMMARY | 2024-06-19 15:13 | XMS_ITS | Clinical Summary ---
Author Organization [facility] Address [address] [place] [address] Care Team Providers Care Oxygen Furnace Operator Name Role Phone Unknown, Provider MD Primary Care Provider Unava ilable Encounters Date Type Department Care Team Description 05/30/2024 Lab Requisition [facility] Pathology & Laboratory Medicine - [facility] [address] [place] [address] Outr Resulting Lab, Provider from Last 3 [...] 5.3 pg/mL 05/30/2024 17:34 EDT [facility] Blood VENOUS BLOOD / Unknown 05/30/2024 10:09 EDT 05/30/2024 17:01 EDT us Provider Outr Resulting Lab CHEMISTRY & BLOOD GA S ORDERABLES Final Result [facility] [address] [place] [address] * T3, TOTAL (05/30/2024 10:09 EDT) Pathologist [facility] T3, Total 147 97 - 169 ng/dL 05/30/2024 17:50 EDT [facility] Blood VENOUS BLOOD / Unknown 05/30/2024 10:09 EDT 05/30/2024 17:01 EDT us Provider Outr Resulting Lab CHEMISTRY & BLOOD GA S ORDERABLES Final Result Performing Organization Address [facility]/ZIP Co de Phone Number [facility] [address] [place], [place] [address] * HEPATITIS C AB W REFLEX TO HCV RNA BY PCR (12/04/2021 11:00 EDT) [facility] Hep C Antibody Negative Negative 12/05/2021 11:10 EDT [facility] Blood VENOUS BLOOD / Unknown 12/04/2021 11:00 EDT 12/04/2021 21:57 EDT us Provider Outr Resulting Lab CHEMISTRY & BLOOD GA S ORDERABLES Final Result [facility] [address] [place] [address] from Last 3 Months or Most Recently Relevant to Health Maintenance Care Teams Oxygen Furnace Operator Relationship Specialty Start Date End Date Unknown, Provider, PCP - General 01/18/16
--- OUTSIDE RECORDS SUMMARY | 2024-06-19 15:13 | XMS_ITS | Encounter Summary ---
Author Organization [facility] [place] [address] Care Team Providers Care Threader Name Role Phone Felisha Juan APRN Primary Care Provider + [phone] Encounter Details Date Type Department Care Team (Late st Contact Info) Description 08/18/2017 Notes Only Endocrinology at [facility] [place] [address] Danielle Trejo, GUSTAVO Social History Tobacco Use [...] on filedocumented in this encounter Care Teams Threader Relationship Specialty Start Date End Date Felisha Juan APRN [address] [place] [address] PCP - General Family Medicine 10/29/15 01/29/22 documented as of this encounter
--- OUTSIDE RECORDS SUMMARY | 2024-06-19 15:13 | XMS_ITS | Encounter Summary ---
Author Organization [place] [address] Care Team Providers Care Senior Field Engineer Name Role Phone Yessica Felisha WILLSON Primary Care Provider + [phone] Reason for Visit * Reason Onset Date Comments Pump/sensor 02/07/2021 Encounter Details Date Type Department Care Team (Late st Contact Info) Description 02/07/2021 Telephone [place] [address] Tosin Solares Pump/sensor Social History Tobacco Use Types Packs/Day Years Used Date Smoking Tobacco: Never Smokeless Tobacco: Never Sex and Gender Information Value Date Recorded Sex Assigned at Not on file Gender Identity Not on file Sexual Orientation Not on file documented as of this encounter Miscellaneous Notes * Telephone Encounter - Tosin Solares - 02/07/2021 7:32 AM EDT Documentation request received from [facility]. 11/13/20 office notes routed Confirmed 02/07 documented in this encounter Plan of Treatment Not on file documented as of this encounter Visit Diagnoses Not on filedocumented in this encounter Care Teams Senior Field Engineer Relationship Specialty Start Date End Date Felisha Juan APRN [address] [place] [address] PCP - General Family Medicine 10/29/15 01/29/22 documented as of this encounter
--- OUTSIDE RECORDS SUMMARY | 2024-06-19 15:13 | XMS_ITS | Encounter Summary ---
Author Organization [facility] Address [facility] [place] [address] Care Team Providers Care Division Roadmaster Name Role Phone Carey Hall MD Primary Care Provider [phone] Reason for Visit * Reason Comments Diabetic Foot Care Encounter Details Date Type Department Care Team ([facility] st Contact Info) Description 02/23/2012 4:00 PM EDT Office Visit Podiatry at [address] [place] [address] Ritesh Mackey Jr., DPM [address] [place] [address] [place] [address] Other specified disease of nail (Primary Dx) [...] encounter Miscellaneous Notes * Miscellaneous - Carrington, Wedding Planner - 03/05/2012 10:46 AM EDT documented in this encounter Plan of Treatment Not on file documented as of this encounter Visit Diagnoses Diagnosis Other specified disease of nail- Primary documented in this encounter Care Teams Division Roadmaster Relationship Specialty Start Date End Date Carey Hall MD [address] [place] [address] PCP - General 06/25/10 10/28/15 documented as of this encounter
--- OUTSIDE RECORDS SUMMARY | 2024-06-19 15:13 | XMS_ITS | Encounter Summary ---
Author Organization [facility] [place] [address] Care Team Providers Care Marketing Account Manager Name Role Phone Felisha Juan APRN Primary Care Provider + [phone] Encounter Details Date Type Department Care Team (Latest Contact Info) Description 08/22/2016 9:00 AM EST Laboratory Appointment Lab at [facility] [place] [address] Type 1 diabetes mellitus with retinopathy Social [...] Urine 17 0 - 29 mcg/mg Cr [facility] Comment: Reference Ranges: <30 mcg/mg: [...] 2, 357? 362 Albumin, Urine 12.4 mg/L [facility] Creatinine, Urine 75 mg/dL [facility] Urine specimen (specimen) 08/22/2016 9:06 AM EST 08/22/2016 9:20 AM EST Narrative Resulting Agency Comment Spec In Lab Olegario Wright DO URINE ORDERABLES [facility] [place] [address] * Lipid panel (fasting) (08/22/2016 8:51 AM EST) Cholesterol, Total 129 <=239 mg/dL [facility] Triglyceride 56 <=199 mg/dL [facility] HDL Cholesterol 55 >=40 mg/dL [facility] LDL Cholesterol 63 <=190 mg/dL [facility] Cholesterol/HDL Ratio 2.[address] [facility] Lipid Interpretation See Note [facility] Comment: Lipid management should be guided by a patient? s ASCVD risk, goals and preferences. ACC/AHA Guidelines recommend high intensity statin if clinical ASCVD or LDL greater than or equal to 190 mg/dL. http://circ.ahajournals.org/content/early/.cir.6301288191.99015.7a Adults aged 40-75 with LDL 70-189 mg/dL should have their 10 year ASCVD risk estimated with the ACC/AHA ASCVD risk auto damage estimator http://tools.acc.org/RCUSO-Jrdf-Csrhkpzdj/ Statin should be discussed if risk greater [...] In Lab Olegario Wright DO CHEMISTRY ORDERABLES [facility] [place] [address] * (ABNORMAL) Hemoglobin A1c (08/22/2016 8:51 AM EST) Hemoglobin A1c 7.4(H) 4.3 - 5.6 % [facility] Comment: Reference Range: 4.3 - [...] Mellitus, Diabetes Care 2013; 36: Suppl. 1, A07-09 Estimated Average Glucose 166 mg/dL [facility] Comment: eAG equivalents for HbA1c percentages: HbA1c(%) ?eAG(mg/dL) 6.0 ?126 6.5 ?140 7.0 ?154 7.5 ?169 8.0 ?183 8.5 ?197 9.0 ?212 9.5 ?226 10.0 ? 240 Limitations: The eAG calculation has not been validated on women, individuals below 18 years old and above 70 years old, and individuals with hemoglobinopathies. Additional resources are available on the ADA website: http://[place] Free Classifieds.MakeMeReach/DHMCadacalc Tj JESSICA, Mal J, Bk R, et al. ??Translating the A1C assay into estimated average glucose values. ??Diabetes Care 2008:31(8):0162-5940. Blood specimen (specimen) 08/22/2016 8:51 AM EST 08/22/2016 8:58 AM EST Narrative Resulting Agency Comment Spec In Lab Olegario Wright DO CHEMISTRY ORDERABLES Performing Organization Address City/State/[facility] Co de Phone Number [facility] [place] [address] documented in this encounter Visit Diagnoses Diagnosis Type 1 diabetes mellitus with retinopathy documented in this encounter Care Teams Marketing Account Manager Relationship Specialty Start Date End Date Felisha Juan APRN [address] [place] [address] PCP - General Family Medicine 10/29/15 01/29/22 documented as of this encounter
--- OUTSIDE RECORDS SUMMARY | 2024-06-19 15:13 | XMS_ITS | Referral Summary ---
Author Organization [facility] Address [address] [place] [address] Care Team Providers Care Production Superintendent Hydro Name Role Phone Unknown, Provider MD Primary Care Provider Unava ilable Encounters Date Type Department Care Team Description 05/30/2024 Lab Requisition [facility] Pathology & Laboratory Medicine - [facility] [address] [place] [address] Outr Resulting Lab, Provider from Last 3 [...] 2.8 - 5.3 pg/mL 05/30/2024 17:34 EDT [facility] Blood VENOUS BLOOD / Unknown 05/30/2024 10:09 EDT 05/30/2024 17:01 EDT us Provider Outr Resulting Lab CHEMISTRY & BLOOD GA S ORDERABLES Final Result [facility] [address] [place] [address] * T3, TOTAL (05/30/2024 10:09 EDT) Pathologist [facility] T3, Total 147 97 - 169 ng/dL 05/30/2024 17:50 EDT [facility] Blood VENOUS BLOOD / Unknown 05/30/2024 10:09 EDT 05/30/2024 17:01 EDT us Provider Outr Resulting Lab CHEMISTRY & BLOOD GA S ORDERABLES Final Result [facility] [address] [place] [address] * HEPATITIS C AB W REFLEX TO HCV RNA BY PCR (12/04/2021 11:00 EDT) Pathologist [facility] Hep C Antibody Negative Negative 12/05/2021 11:10 EDT [facility] Blood VENOUS BLOOD / Unknown 12/04/2021 11:00 EDT 12/04/2021 21:57 EDT us Provider Outr Resulting Lab CHEMISTRY & BLOOD GA S ORDERABLES Final Result [facility] [address] [place] [address] from Last 3 Months or Most Recently Relevant to Health Maintenance Care Teams Production Superintendent Hydro Relationship Specialty Start Date End Date Unknown, Provider, PCP - General 01/18/16
--- OUTSIDE RECORDS SUMMARY | 2024-06-19 15:13 | XMS_ITS | Encounter Summary ---
[place] [address] Care Team Providers Care Finisher Hand Name Role Phone Felisha Juan APRN Primary Care Provider + [phone] Reason for Visit * Reason Onset Date Comments Medication Refill 08/12/2017 Encounter Details Date Type Department Care Team (Late st Contact Info) Description 08/12/2017 Refill [place] [address] Ivette Hewitt V RN Controlled type 1 [...] severity documented in this encounter Care Teams Finisher Hand Relationship Specialty Start Date End Date Felisha Juan APRN [address] [place] [address] PCP - General Family Medicine 10/29/15 01/29/22 documented as of this encounter
--- OUTSIDE RECORDS SUMMARY | 2024-06-19 15:13 | XMS_ITS | Encounter Summary ---
Author Organization [facility] Address [facility] [place] [address] Care Team Providers Care Sample Maker Original Name Role Phone Carey Hall MD Primary Care Provider [phone] Reason for Visit * Reason Comments Diabetic Foot Care Encounter Details Date Type Department Care Team ([facility] Contact Info) Description 07/09/2012 11:15 AM EST Office Visit Podiatry at [address] [place] [address] Ritesh Mackey Jr., [facility] [address] [facility] [place] [address] Other specified disease of nail; DM w/o [...] uncontrolled documented in this encounter Care Teams Sample Maker Original Relationship Specialty Start Date End Date Carey Hall MD [address] [place] [address] PCP - General 06/25/10 10/28/15 documented as of this encounter
--- OUTSIDE RECORDS SUMMARY | 2024-06-19 15:13 | XMS_ITS | Encounter Summary ---
Author Organization [facility] Address [address] [place] [address] Care Team Providers Care Radiator Specialist Name Role Phone Unknown, Provider Primary Care Provider Unava ilable Encounter Details Date Type Department Care Team (Late st Contact Info) Description 05/30/[address] [facility] Pathology & Laboratory Medicine - [facility] [address] [place], [place] [id number] Outr Resulting Lab, Provider Social History Tobacco [...] 2.8 - 5.3 pg/mL 05/30/2024 17:34 EDT [facility] Blood VENOUS BLOOD / Unknown 05/30/2024 10:09 EDT 05/30/2024 17:01 EDT us Provider Outr Resulting Lab CHEMISTRY & BLOOD GA S ORDERABLES Final Result [facility] [address] [place] [address] * T3, TOTAL (05/30/2024 10:09 EDT) T3, Total 147 97 - 169 ng/dL 05/30/2024 17:50 EDT [facility] Blood VENOUS BLOOD / Unknown 05/30/2024 10:09 EDT 05/30/2024 17:01 EDT us Provider Outr Resulting Lab CHEMISTRY & BLOOD GA S ORDERABLES Final Result [facility] [address] [place] [address] documented in this encounter Visit Diagnoses Not on filedocumented in this encounter Care Teams Radiator Specialist Relationship Specialty Start Date End Date Unknown, Provider, PCP - General 01/18/16 documented as of this encounter
--- OUTSIDE RECORDS SUMMARY | 2024-06-19 15:13 | XMS_ITS | Encounter Summary ---
Author Organization [facility] Address [address] [place] [address] Care Team Providers Care Data Conversion Operator Name Role Phone Unknown, Provider Primary Care Provider Unava ilable Encounter Details Date Type Department Care Team (Late st Contact Info) Description 12/04/2021 Lab Requisition [facility] Pathology & Laboratory Medicine - [facility] [address] [place] [address] Outr Resulting Lab, Provider Social History Tobacco [...] 4th Generation Negative Negative 12/05/2021 10:51 EDT [facility] Comment:If acute HIV-1 infec tion is suspected in a high risk patient, submit plasma specimen for HIV-1 RNA quantitation test. Blood VENOUS BLOOD / Unknown 12/04/2021 11:00 EDT 12/04/2021 22:05 EDT Narrative [facility] - 12/05/2021 10:51 EDT Fourth Generation assay performed on the Siemens Embarkaur XPT. us Provider Outr Resulting Lab IMMUNOLOGY AND SEROL OGY ORDERABLES Final Result [facility] [address] [place] [address] documented in this encounter Visit Diagnoses Not on filedocumented in this encounter Care Teams Data Conversion Operator Relationship Specialty Start Date End Date Unknown, Provider, PCP - General 01/18/16 documented as of this encounter
--- OUTSIDE RECORDS SUMMARY | 2024-06-19 15:13 | XMS_ITS | Encounter Summary ---
Author Organization [facility] Address [facility] [place] [address] Care Team Providers Care Pack Operator Name Role Phone Felisha Juan APRN Primary Care Provider Encounter Details Date Type Department Care Team (Late st Contact Info) Description 03/03/2016 Orders [place] [address] Rosie Tao MD [facility] [place] [address] Diabetes mellitus without complication Social History Tobacco [...] uncontrolled documented in this encounter Care Teams Pack Operator Relationship Specialty Start Date End Date Felisha Juan APRN [address] [place] [address] PCP - General Family Medicine 10/29/15 01/29/22 documented as of this encounter
--- OUTSIDE RECORDS SUMMARY | 2024-06-19 15:13 | XMS_ITS | Encounter Summary ---
Author Organization [facility] [place] [address] Care Team Providers Care Director Of Sales Support Name Role Phone Yessica Felisha CHUCKING MACHINE OPERATOR Primary Care Provider [phone] Reason for Visit * Reason Onset Date Comments Medication Refill 11/12/2017 Encounter Details Date Type Department Care Team (Late st Contact Info) Description 11/12/2017 [place] [address] Francoise Tan CHUCKING MACHINE OPERATOR [facility] [place] [address] Diabetes mellitus without complication Social History Tobacco [...] uncontrolled documented in this encounter Care Teams Director Of Sales Support Relationship Specialty Start Date End Date Felisha Juan APRN [address] [place] [address] PCP - General Family Medicine 10/29/15 01/29/22 documented as of this encounter
--- OUTSIDE RECORDS SUMMARY | 2024-06-19 15:13 | XMS_ITS | Encounter Summary ---
Author Organization [facility] Address [address] [place] [address] Care Team Providers Care Racing Secretary And Handicapper Name Role Phone Unknown, Provider MD Primary Care Provider Unava ilable Encounter Details Date Type Department Care Team (Late st Contact Info) Description 12/04/2021 Lab Requisition [facility] Pathology & Laboratory Medicine - [facility] [address] [place] [address] Outr Resulting Lab, Provider Social History Tobacco [...] Antibody Negative Negative 12/05/2021 11:10 EDT [facility] Blood VENOUS BLOOD / Unknown 12/04/2021 11:00 EDT 12/04/2021 21:57 EDT us Provider Outr Resulting Lab CHEMISTRY & BLOOD GA S ORDERABLES Final Result [facility] [address] [place] [address] documented in this encounter Visit Diagnoses Not on filedocumented in this encounter Care Teams Racing Secretary And Handicapper Relationship Specialty Start Date End Date Unknown, Provider, PCP - General 01/18/16 documented as of this encounter
--- OUTSIDE RECORDS SUMMARY | 2024-06-19 15:13 | XMS_ITS | Encounter Summary ---
Author Organization [facility] [place] [address] Care Team Providers Care Osteology Teacher Name Role Phone Felisha Juan APRN Primary Care Provider Encounter Details Date Type Department Care Team (Late st Contact Info) Description 11/12/2017 [facility]phone [facility] [place] [address] Danielle Trejo, GUSTAVO Social History Tobacco Use [...] nurse. Boyfriend wants patient's Novolog refill [place] rather than [facility]. documented in this encounter Plan of Treatment Not on file documented as of this encounter Visit Diagnoses Not on filedocumented in this encounter Care Teams Osteology Teacher Relationship Specialty Start Date End Date Felisha Juan APRN [address] [place] [address] PCP - General Family Medicine 10/29/15 01/29/22 documented as of this encounter
--- OUTSIDE RECORDS SUMMARY | 2024-06-19 15:13 | XMS_ITS | Encounter Summary ---
Author Organization [facility] Address [facility] [place] [address] Care Team Providers Care International Broadcast Music Librarian Name Role Phone Carey Hall MD Primary Care Provider [phone] Reason for Visit * Reason Comments Diabetic Foot Care Encounter Details Date Type Department Care Team ([facility] st Contact Info) Description 11/05/2012 2:45 PM EDT Office Visit Podiatry at [address] [place] [address] Ritesh Mackey Jr., [facility] [address] [place] [address] [place] [address] Other specified disease of nail (Primary Dx) [...] Primary documented in this encounter Care Teams International Broadcast Music Librarian Relationship Specialty Start Date End Date Carey Hall MD [address] [place] [address] PCP - General 06/25/10 10/28/15 documented as of this encounter
--- OUTSIDE RECORDS SUMMARY | 2024-06-19 15:13 | XMS_ITS | Encounter Summary ---
Author Organization [facility] Address [facility] [place] [address] Care Team Providers Care Type Caster Name Role Phone Carey Hall MD Primary Care Provider [phone] Reason for Visit * Reason Comments Diabetic Foot Care Encounter Details Date Type Department Care Team ([facility] st Contact Info) Description 08/15/2013 9:30 AM EST Office Visit Podiatry at [address] [place] [address] Ritesh Mackey Jr., [facility] [address] [facility] [place] [address] Dermatophytosis of nail (Primary Dx); Pain in [...] on palpation. Nails display clinical signs of qfyscbl-[id number] in appearance, thickened greater than 2mm, Brittle [...] clearly painful. 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
--- OUTSIDE RECORDS SUMMARY | 2024-06-19 15:13 | XMS_ITS | Encounter Summary ---
Author Organization [facility] Address [facility] [place] [address] Care Team Providers Care Turner Machine Name Role Phone Carey Hall MD Primary Care Provider Encounter Details Date Type Department Care Team (Late st Contact Info) Description 02/07/2014 2:00 PM EDT Office Visit Podiatry at [address] [place] [address] Ritesh Mackey Jr., [address] [place] [address] Dermatophytosis of nail; Pain in limb; DM [...] on palpation. Nails display clinical signs of evloxef-iryraizwbo-fmktcg in appearance, thickened greater than 2mm, Brittle [...] uncontrolled documented in this encounter Care Teams Turner Machine Relationship Specialty Start Date End Date Carey Hall MD [address] [place] [address] PCP - General 06/25/10 10/28/15 documented as of this encounter
--- OUTSIDE RECORDS SUMMARY | 2024-06-19 15:13 | XMS_ITS | Encounter Summary ---
Author Organization [facility] [place] [address] Care Team Providers Care Transit Planner Name Role Phone Felisha Juan APRN Primary Care Provider + [phone] Encounter Details Date Type Department Care Team (Late st Contact Info) Description 08/04/2017 Tele[place] [address] Danielle Trejo, RN Social History Tobacco Use [...] on filedocumented in this encounter Care Teams Transit Planner Relationship Specialty Start Date End Date Felisha Juan APRN [address] [place] [address] PCP - General Family Medicine 10/29/15 01/29/22 documented as of this encounter
--- OUTSIDE RECORDS SUMMARY | 2024-06-19 15:13 | XMS_ITS | Encounter Summary ---
Author Organization [facility] [place] [address] Care Team Providers Care Software Engineer Web Applications Name Role Phone Felisha Juan DEMETRIS Primary Care Provider [phone] Encounter Details Date Type Department Care Team (Latest Contact Info) Description 05/23/2019 8:30 AM EDT Office [place] [address] Francoise Tan APRN [facility] [place] [address] Type 1 diabetes mellitus with proliferative retinopathy [...] hypoglycemia and avoid severe hyperglycemia. She uses [employer] talking meter. Diabetes regimen: Basaglar 22 units [...] office visit with 28 minutes spent counseling [id number] with patient in themanagement of glucose levels, reviewing prevention and treatment of hypoglycemia. She does rotate her injection sites. 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
--- OUTSIDE RECORDS SUMMARY | 2024-06-19 15:13 | XMS_ITS | Encounter Summary ---
Author Organization [facility] [place] [address] Care Team Providers Care Electrical Engineering Technician Name Role Phone Felisha Juan APRN Primary Care Provider [phone] Reason for Visit * Auth/Cert Specialty Diagnoses / Procedures Referred By Chip sebastian Referred To Contact Diagnoses STEMI (ST elevation myocardial infarction) STEMI Procedures CARDIAC CATHETERIZATION Ray Salomon MD [facility] [place] [address] [facility] Referral ID Status Reason Start Date Expiration Date Visits Re quested Visits Authorized [id number] 1 1 Encounter Details Date Type Department Care Team (Late st Contact Info) Description 01/03/2022 10:10 PM EDT - 01/03/2022 11:32 PM EDT Surgery Lockstitch [place] [address] Moi Ledezma MD [facility] [place] [address] CARDIAC CATHETERIZATION Social History Tobacco Use Types [...] Afua Rosales Patient Age: 46 y.o. Language: Namibian Race: White Ethnicity: Not nor Admit date: [...] will need follow up with cardiology at [facility] as well as to establish [...] made her nauseous. ?? On arrival to [facility], she was afebrile, BP was 95/54, she was oxygenating normally on room air. She was infused with 1L IV fluids, given 25 mg of aspirin (per [facility] discharge note). The on-call production line mechanic at [facility] was contacted, she was given 300 mg of Plavix, aspirin, heparin with bolus and drip. She was also given tecteplase 35mg. ?? On arrival to [facility] laboratory aide, she underwent LHC and received TRACIE x2 [...] for you to establish care with a ward service supervisor at [facility] as well as a referral [...] appointments: During 8am-5pm Thursday through Thursday call [phone] to speak with a nurse in the cardiology clinic All other times call [phone] and ask to speak to the production line mechanic medical collections specialist. Activity level: - No heavy lifting (more [...] none Follow up Appointments: No future appointments. Skiff Operator: You will be contacted by [facility] to schedule a cardiology appointment to establish care. PCP: Felisha Juan APRN at [phone] Your Inpatient Doctor(s) at [facility]: Ray Salomon MD - Attending physician Cam David MD - Website Admin physician Your Primary Care Provider: DEMETRIS Galarza DR / [facility] [address] For questions regarding issues relating to your hospitalization on the Hospital Medicine Service, please contact your inpatient physician through the [facility] Hop Farm Worker [phone]. Issues after hours and on weekends will be handled by the Hospitalist staff on-call. General Instructions None Future Appointments and Orders Future Orders Complete By Expires Referral to Cardiac Rehab [[id number] Custom] As directed Process Instructions: If no progress note charted, please enter Clinical details in comments. Scheduling Instructions: Questions: My question or request is: cardiac rehab referral s/p STEMI, she would benefit from location close to [facility] Referral to Cardiology [[id number] Custom] As directed Process Instructions: If no progress note charted, please enter Clinical details in comments. Scheduling Instructions: Questions: My question or request is: establish care after inferoposterior stemi Provider Contact Information: DEMETR[address] / [facility] [address] Discharge References/Attachments: Discharge References/Attachments None Associated attestation - Ray Salomon MD - 01/06/2022 1:51 PM EDT Dear Colleagues, I was the attending at the time of discharge. Please call or email me if you have questions. Ray Salomon MD, [facility] [phone] documented in this encounter Discharge Instructions * [...] for you to establish care with a ward service supervisor at [facility] as well as a referral [...] evening. Metoprolol (toprol): this is a beta vensa, that helps protect your heart. Take this [...] appointments: During 8am-5pm Thursday through Thursday call [phone] to speak with a nurse in the cardiology clinic All other times call [phone] and ask to speak to the production line mechanic medical collections specialist. Activity level: - No heavy lifting (more [...] none Follow up Appointments: No future appointments. Skiff Operator: You will be contacted by [facility] to schedule a cardiology appointment to establish care. PCP: Felisha Juan APRN at [phone] Your Inpatient Doctor(s) at [facility]: Ray Salomon MD - Attending physician Cam David MD - Website Admin physician Your Primary Care Provider: Felisha Juan APRN [address] / [facility] [address] For questions regarding issues relating to your hospitalization on the Hospital Medicine Service, please contact your inpatient physician through the [facility] Hop Farm Worker [phone]. Issues after hours and on weekends will [...] CHO control level 2 Elba Pavon APRN [facility] Endocrinology Diabetes Management Pager [phone] 20 minutes of this 35 minute visit [...] Cuff Relevant medications: noted Last Bowel Movement: (BINDING CEMENTER FRENCH CORD) Admit Weight: 66.1 kg Estimated body mass index is 22.86 kg/m?? as calculated from the following: Height as of this encounter: 165.1 cm (5' 5). Weight as of this encounter: 62.3 kg (137 lb 5.6 oz). [place] Body Weight: 125 lbs / 56.7 kg [...] up while inpatient Phuong Clements RD Pager #:[phone] * Ray Salomon MD - 01/06/2022 6:54 AM EDT Images from the original note were not included. Inpatient Cardiology Progress Note Patient info: Name: Afua Rosales : 1975 PCP: Felisha Juan APRN PCP phone number: [phone] Date of Admission: 01/03/2022 ( Hospital Day 3 days ) Attending:Ray Salomon MD ID: Afua Rosales is a 46 y.o. 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 She presents with inferior STEMI and is now s/p PCI with TRACIE x2 to RCA. Hospital Day3 24 Hour Events/Subjective: - JOMAR ROJASS - pharmacy is [facility] in [facility], BF can apple picker at 6 pm when neighbor's car [...] Procedure Component Value Units Date/Time COVID-19 PCR [[id number]] Collected: 01/04/22 0050 Lab Status: Final result [...] diagnosis of COVID-19 is performed using the [place] COVID-19 Direct Assay by [employer] as authorized [...] Department of Pathology and Laboratory Medicine at [facility], certified under the Clinical Laboratory Improvement [...] fact sheets at the following FDA website: https://www.fda.gov/medical-devices/blkbanuszmu-ezoupis-8468-uyirs-01-cesvgsogb- nrl-amzjbjdoqvkijc-ctynjzx-devices/fywbc-ojmylebhvcv-amxm SARS-CoV-2 Source INSIDE PHONE SALES Swab Imaging: No results found for this [...] David MD Internal Medicine, PGY-1 Cardiology, S2 ([id number]) 01/06/22 Cardiology Staff Addendum Afua Rosales is [...] Sky ? Lucia Alexander Endocrinology Fellow Pager [phone] I have seen the patient and reviewed [...] PCP: Felisha Juan APRN PCP phone number: [phone] Date of Admission: 01/03/2022 ( Hospital Day 2 days ) Attending:Ray Salomon MD ID: fAua Rosales is a 46 y.o. female w/ [...] Procedure Component Value Units Date/Time COVID-19 PCR [[id number]] Collected: 01/04/22 005 Lab Status: Final result [...] Department of Pathology and Laboratory Medicine at [facility], certified under the Clinical Laboratory Improvement [...] fact sheets at the following FDA website: https://www.fda.gov/medical-devices/eaqbgqsvsrm-ibcngam-0648-jsfap-20-jhzjeqeif- yoh-ibjiqpykkmuhrv-nnbzfsg-devices/gghtf-flioswxijif-klnd SARS-CoV-2 Source INSIDE PHONE SALES Swab Imaging: No results found for this [...] Clark MD - 01/04/2022 3:25 AM EDT [facility] TeleICU Initial Assessment Note I established audio/visual communication with the patient's room, reviewed the eDH. History and Assessment: 46 y.o. 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 STEMIalert activated and went to laboratory aide where proximal and mid RCA stents were [...] Units, 5,000 Units, Subcutaneous, Q8H [facility], Sumanth Barnard MD, 5,000 Units at 01/04/22114 [...] mg, 12.5 mg, Oral, Q8H [facility], Sumanth Barnard MD ??? clopidogreL (Plavix) tablet [...] PCP: Felisha Juan APRN PCP phone number: [phone] Date of Admission: 01/03/2022 ( Hospital Day [...] previously made her nauseous. On arrival to [facility], she was afebrile, BP was 95/54, she was oxygenating normally on room air. She was infused with 1L IV fluids, given 25 mg of aspirin (per [facility] discharge note). The on-call production line mechanic at [facility] was contacted, she was given 300 mg of Plavix, aspirin, heparin with bolus and drip. She was also given tecteplase 35mg. On arrival to [facility] laboratory aide, she underwent LHC and received TRACIE x2 [...] COVID test: Lab Results Component Value Date [id number] Not Detected 01/04/2022 Past medical History: No [...] 180 days) Any patient receiving care at [facility] must abide by [place] law. The hierarchy [...] (i) The agent with financial power of patent attorney or a conservator appointed in accordance [...] confirmed as: [address] [facility] [address] Social & Family Supports: All names listed below confirmed with patient as current and correct Extended Emergency Contact Information Primary Emergency Contact: Delano Reyna [facility] Mobile Relation: Friend Current Care [...] MEDICAID [place] Prescription Coverage: Yes Preferred Pharmacy: [id number] - [place], [place] - [address] [facility] [address] [place] [address] [facility] [address] [facility] - [facility], [place] - [address] [facility] [address] [facility] [address] [place] Status: Patient is a : No Primary Care Provider: Felisha Juan APRN [phone] Patient/Caregiver Goals of Treatment: To go home Potential Needs for Transition of Care: none Agency Referrals: None anticipated Transportation: other (see comments) (Needs ride home generally take the free transfer bus in her home town for groceries) Transportation Anticipated: health plan transportation Concerns to be Addressed: discharge planning Assessment: Patient is admitted to *[facility] service for STEMI Plan: Home today with a medicaid ride / RS to confirm when ride is obtained A member of the Care Management team will continue to monitor progress, follow for continuity of care and assist with transition of care planning. Office of Care Management Surgery Team Cigar Packer And Sorter [email or web address] Pager [phone] * Consult Note - Mark Sky [...] meal) 4. Carb controlled diet level 2 [facility] diabetes care: Medications - Outpatient treatment regimen recommendations pending based on the hospital course. Monitoring - continue BG check q4 hours for now Diet - low fat/low carb diet Exercise - weight-bearing exercise 30 min/day, as tolerated Thank you for allowing us to provide care for your patient. Discussed with Dr. Asya Alexander Endocrinology Fellow Pager [phone] I have seen the patient and reviewed [...] 01/04/2022 1:44 AM EDT RAPID COVID-19 PCR ([facility]/APD/[facility]) Routine 01/04/2022 12:50 AM EDT [...] Glucose, POC 197 65 - 199 mg/dL [facility] Comment: Supplemental ranges: <140 mg/dL before meals <180 mg/dL all other times of the day Blood 01/06/2022 2:32 PM EDT 01/06/2022 2:32 PM EDT Ray Salomon MD POINT OF CARE TEST O MUSHTAQ Performing Organization Address City/[facility]/ZIP Co de Phone Number [facility] [place] [address] * (ABNORMAL) POCT Glucose (01/06/2022 11:47 AM EDT) Glucose, POC 299(H) 65 - 199 mg/dL [facility] Comment: Supplemental ranges: <140 mg/dL before meals <180 mg/dL all other times of the day Blood 01/06/2022 11:4 7 AM EDT 01/06/2022 11:47 AM EDT Ray Salomon MD POINT OF CARE TEST O MUSHTAQ [facility] [place] [address] * POCT Glucose (01/06/2022 8:01 AM EDT) Glucose, POC 142 65 - 199 mg/dL [facility] Comment: Supplemental ranges: <140 mg/dL before meals <180 mg/dL all other times of the day Blood 01/06/2022 8:01 AM EDT 01/06/2022 8:01 AM EDT Ray Salomon MD POINT OF CARE TEST O RDERABLES [facility] [place] [address] * Differential, Automated (01/06/2022 4:20 AM EDT) [facility] Neutrophil % 51.9 % [facility] Neutrophil Absolute 3.34 1.70 - 6.10 x10(3)/[facility] Lymph % 32.5 % [facility] Lymphocytes Abs 2.1 0.9 - 3.2 x10(3)/[facility] Monocyte % 13.7 % [facility] Monocyte Abs 0.9 0.3 - 0.9 x10(3)/[facility] Eos % 1.1 % [facility] Eosinophils Abs 0.1 0.0 - 0.4 x10(3)/[facility] Basophil % 0.6 % [facility] Baso Absolute 0.0 0.0 - 0.1 x10(3)/[facility] Immature Gran % 0.20 % [facility] Comment: Immature granulocytes(IG's)percentage and absolute count will include metamyelocytes, myelocytes, and promyelocytes. Blood smears from CBCs yielding IG's will be scanned manually for concordance. If this scan disagrees with the automated IG or if promyelocytes are noted, a manual differential will be performed. Immature Gran Absolute 0.01 0.00 - 0.04 x10(3)/[facility] Blood 01/06/2022 4:20 AM EDT 01/06/2022 4:39 AM EDT Narrative Resulting Agency Comment Spec In Lab Cam David MD HEMATOLOGY ORDERABLE S [facility] [place] [address] * (ABNORMAL) Hemogram (01/06/2022 4:20 AM EDT) White Blood Cell 6.4 4.0 - 9.5 x10(3)/mc L [facility] Red Blood Cell 3.86(L) 4.00 - 5.21 x10(6)/mc L [facility] Hemoglobin 12.4 11.7 - 15.5 g/dL [facility] Hematocrit 36.0 35.7 - 45.8 % [facility] Mean Cell Volume 93.3 82.6 - 94.4 fL [facility] Mean Cell Hemoglobin 32.1(H) 27.1 - 32.0 pg [facility] Mean Cell Hemoglobin Concentration 34.4 31.7 - 35.0 g/dL [facility] Platelet 177 145 - 357 x10(3)/mc L [facility] RDW Standard Deviation 42.0 37.0 - 46.0 [facility]ORATORY RDW coefficient of variation 12.1 11.5 - 14.1 % [facility] Mean Platelet Volume 10.0 7.6 - 12.9 fL [facility] NRBC% auto 0.0 % [facility] NRBC Absolute 0.000 0.000 - 0.000 x10(3)/mc L [facility] Blood 01/06/2022 4:20 AM EDT 01/06/2022 4:39 AM EDT Narrative Resulting Agency Comment Spec In Lab Cam David MD HEMATOLOGY ORDERABLE S [facility] [place] [address] * Basic Metabolic Panel (non-fasting) (01/06/2022 4:20 AM EDT) Glucose 123 65 - 199 mg/dL [facility] Comment:Diabetes: >=200 mg/d L plus symptoms Blood Urea Nitrogen 13 8 - 18 mg/dL [facility] Creatinine 0.77 0.70 - 1.20 mg/dL [facility] Sodium 137 135 - 145 mmol/L [facility] Potassium 4.0 3.5 - 5.0 mmol/L [facility] Comment: Please note: ??Patients with WBC >100,000 may have falsely elevated Potassium levels. ??For accurate Potassium quantification in these patients send serum separator tube (gold top) for subsequent determinations. ??Contact the Clinical Chemistry Laboratory if there are any questions. Chloride 102 98 - 107 mmol/L [facility] Carbon Dioxide 26 22 - 31 mmol/L [facility] Anion Gap 9 5 - 15 mmol/L [facility] Calcium 9.2 8.5 - 10.5 mg/dL [facility] Est Glomerular Filtration Rate 92 >=60 mL/min/1. 73 m?? [facility] Comment: This patient? s [...] Salomon MD CHEMISTRY ORDERABLES Performing Organization Address [facility]/ZIP Co de Phone Number [facility] [place] [address] * POCT Glucose (01/06/2022 3:46 AM EDT) Glucose, POC 129 65 - 199 mg/dL [facility] Comment: Supplemental ranges: <140 mg/dL before meals <180 mg/dL all other times of the day Blood 01/06/2022 3:46 AM EDT 01/06/2022 3:46 AM EDT Ray Salomon MD POINT OF CARE TEST O RDERABLES Performing Organization Address [facility] Co de Phone Number [facility] [place] [address] * POCT Glucose (01/06/2022 12:06 AM EDT) Glucose, POC 125 65 - 199 mg/dL [facility] Comment: Supplemental ranges: <140 mg/dL before meals <180 mg/dL all other times of the day Blood 01/06/2022 12:0 6 AM EDT 01/06/2022 12:06 AM EDT Ray Salomon MD POINT OF CARE TEST O RDERAFRANKLIN Performing Organization Address [facility]/ZIP Co de Phone Number [facility] [place] [address] * (ABNORMAL) POCT Glucose (01/05/2022 8:11 PM EDT) Glucose, POC 220(H) 65 - 199 mg/dL [facility] Comment: Supplemental ranges: <140 mg/dL before meals <180 mg/dL all other times of the day Blood 01/05/2022 8:11 PM EDT 01/05/2022 8:11 PM EDT Ray Salomon MD POINT OF CARE TEST O RDERABLES Performing Organization Address City/[facility]/ZIP Co de Phone Number [facility] [place] [address] * POCT Glucose (01/05/2022 6:00 PM EDT) Glucose, POC 190 65 - 199 mg/dL [facility] Comment: Supplemental ranges: <140 mg/dL before meals <180 mg/dL all other times of the day Blood 01/05/2022 6:00 PM EDT 01/05/2022 6:00 PM EDT Ray Salomon MD POINT OF CARE TEST O RDERAFRANKLIN Performing Organization Address City/[facility]/ZIP Co de Phone Number [facility] [place] [address] * POCT Glucose (01/05/2022 3:53 PM EDT) Glucose, POC 161 65 - 199 mg/dL [facility] Comment: Supplemental ranges: <140 mg/dL before meals <180 mg/dL all other times of the day Blood 01/05/2022 3:53 PM EDT 01/05/2022 3:53 PM EDT Ray Salomon MD POINT OF CARE TEST O RDERAFRANKLIN Performing Organization Address City/[facility]/ZIP Co de Phone Number [facility] [place] [address] * (ABNORMAL) Differential, Automated (01/05/2022 11:45 AM EDT) Neutrophil % 65.9 % [facility] Neutrophil Absolute 4.46 1.70 - 6.10 x10(3)/mc L [facility] Lymph % 19.0 % [facility] Lymphocytes Abs 1.3 0.9 - 3.2 x10(3)/mc L [facility] Monocyte % 14.2 % [facility] Monocyte Abs 1.0(H) 0.3 - 0.9 x10(3)/[facility] Eos % 0.1 % [facility] Eosinophils Abs 0.0 0.0 - 0.4 x10(3)/[facility] LABOR[facility]ORY Basophil % 0.4 % [facility] Baso Absolute 0.0 0.0 - 0.1 x10(3)/[facility] Immature Gran % 0.40 % [facility] Comment: Immature granulocytes(IG's)percentage and absolute count will include metamyelocytes, myelocytes, and promyelocytes. Blood smears from CBCs yielding IG's will be scanned manually for concordance. If this scan disagrees with the automated IG or if promyelocytes are noted, a manual differential will be performed. Immature Gran Absolute 0.03 0.00 - 0.04 x10(3)/[facility] Blood 01/05/2022 11:4 5 AM EDT 01/05/2022 12:08 PM EDT Narrative Resulting Agency Comment Spec In Lab Cam David MD HEMATOLOGY ORDERABLE S [facility] [place] [address] * (ABNORMAL) Hemogram (01/05/2022 11:45 AM EDT) White Blood Cell 6.8 4.0 - 9.5 x10(3)/[facility] LABOR[facility] Red Blood Cell 3.92(L) 4.00 - 5.21 x10(6)/ L [facility] Hemoglobin 12.5 11.7 - 15.5 g/dL [facility] Hematocrit 36.4 35.7 - 45.8 % [facility] Mean Cell Volume 92.9 82.6 - 94.4 fL [facility] Mean Cell Hemoglobin 31.9 27.1 - 32.0 pg [facility] Mean Cell Hemoglobin Concentration 34.3 31.7 - 35.0 g/dL [facility] Platelet 187 145 - 357 x10(3)/mc L [facility] RDW Standard Deviation 41.9 37.0 - 46.0 fL [facility] RDW coefficient of variation 12.3 11.5 - 14.1 % [facility] Mean Platelet Volume 10.4 7.6 - 12.9 fL [facility] NRBC% auto 0.0 % [facility] NRBC Absolute 0.000 0.000 - 0.000 x10(3)/mc L [facility] Blood 01/05/2022 11:4 5 AM EDT 01/05/2022 12:08 PM EDT Narrative Resulting Agency Comment Spec In Lab Cam David MD HEMATOLOGY ORDERABLE S [facility] [place] [address] * Basic Metabolic Panel (non-fasting) (01/05/2022 11:45 AM EDT) Glucose 140 65 - 199 mg/dL [facility] Comment:Diabetes: >=200 mg/d L plus symptoms Blood Urea Nitrogen 10 8 - 18 mg/dL [facility] Creatinine 0.75 0.70 - 1.20 mg/dL [facility] Sodium 137 135 - 145 mmol/L [facility] Potassium 3.9 3.5 - 5.0 mmol/L [facility] Comment: Please note: ??Patients with WBC >100,000 may have falsely elevated Potassium levels. ??For accurate Potassium quantification in these patients send serum separator tube (gold top) for subsequent determinations. ??Contact the Clinical Chemistry Laboratory if there are any questions. Chloride 101 98 - 107 mmol/L [facility] Carbon Dioxide 25 22 - 31 mmol/L [facility] Anion Gap 11 5 - 15 mmol/L [facility] Calcium 8.6 8.5 - 10.5 mg/dL [facility] Est Glomerular Filtration Rate 95 >=60 mL/min/1. 73 m?? [facility] Comment: This patient? s [...] Salomon MD CHEMISTRY ORDERABLES Performing Organization Address [facility] Co de Phone Number [facility] [place] [address] * POCT Glucose (01/05/2022 11:40 AM EDT) Glucose, POC 148 65 - 199 mg/dL [facility] Comment: Supplemental ranges: <140 mg/dL before meals <180 mg/dL all other times of the day Blood 01/05/2022 11:4 0 AM EDT 01/05/2022 11:40 AM EDT Ray Salomon MD POINT OF CARE TEST O RDERABLES Performing Organization Address City/[facility]/ZIP Co de Phone Number [facility] [place] [address] * EKG 12 Lead (01/05/2022 8:23 AM EDT) Ventricular rate 78 BPM MUSE SYSTEM Atrial Rate 78 BPM MUSE SYSTEM P-R Interval 132 ms MUSE SYSTEM QRS Duration 106 ms MUSE SYSTEM Q-T Interval 364 ms MUSE SYSTEM QTC Calculated (Bezet) 414 ms MUSE SYSTEM Calculated P Roscoe 78 degrees MUSE SYSTEM Calculated R Roscoe -65 degrees MUSE SYSTEM Calculated T Roscoe -33 degrees MUSE SYSTEM INTERPRETATION Normal sinus rhythm Left axis deviation Incomplete right bundle branch block Cannot rule out Inferior infarct , age undetermined Abnormal ECG When compared with ECG of 04-JAN-2022 00:45, Incomplete right bundle branch block is now Present Minimal criteria for Inferior infarct are now Present Confirmed by Storm Lewis ([id number]) on 01/05/2022 3:44:16 PM MUSE SYSTEM 01/05/2022 8:23 AM EDT 01/05/2022 3:44 PM EDT Ray Salomon MD ECG ORDERABLES Performing Organization Address City/[facility]/ZIP Co de Phone Number MUSE SYSTEM * (ABNORMAL) POCT Glucose (01/05/2022 7:43 AM EDT) Glucose, POC 213(H) 65 - 199 mg/dL [facility] Comment: Supplemental ranges: <140 mg/dL before meals <180 mg/dL all other times of the day Blood 01/05/2022 7:43 AM EDT 01/05/2022 7:43 AM EDT Ray Salomon MD POINT OF CARE TEST O RDERABLES Performing Organization Address City/[facility]/ZIP Co de Phone Number [facility] [place] [address] * (ABNORMAL) POCT Glucose (01/05/2022 6:45 AM EDT) Glucose, POC 214(H) 65 - 199 mg/dL [facility] Comment: Supplemental ranges: <140 mg/dL before meals <180 mg/dL all other times of the day Blood 01/05/2022 6:45 AM EDT 01/05/2022 6:45 AM EDT Ray Salomon MD POINT OF CARE TEST O RDERABLES Performing Organization Address City/[facility]/ZIP Co de Phone Number [facility] [place] [address] * POCT Glucose (01/05/2022 5:31 AM EDT) Glucose, POC 89 65 - 199 mg/dL [facility] Comment: Supplemental ranges: <140 mg/dL before meals <180 mg/dL all other times of the day Blood 01/05/2022 5:31 AM EDT 01/05/2022 5:31 AM EDT Ray Salomon MD POINT OF CARE TEST O RDERABLES Performing Organization Address [facility] Co de Phone Number [facility] [place] [address] * (ABNORMAL) POCT Glucose (01/05/2022 5:09 AM EDT) Glucose, POC 59(L) 65 - 199 mg/dL [facility] Comment: Supplemental ranges: <140 mg/dL before meals <180 mg/dL all other times of the day Blood 01/05/2022 5:09 AM EDT 01/05/2022 5:09 AM EDT Ray Salomon MD POINT OF CARE TEST O RDERAFRANKLIN Performing Organization Address [facility]/ZIP Co de Phone Number [facility] [place] [address] * POCT Glucose (01/05/2022 12:45 AM EDT) Glucose, POC 96 65 - 199 mg/dL [facility] Comment: Supplemental ranges: <140 mg/dL before meals <180 mg/dL all other times of the day Blood 01/05/2022 12:4 5 AM EDT 01/05/2022 12:45 AM EDT Ray Salomon MD POINT OF CARE TEST O RDERAFRANKLIN Performing Organization Address City/[facility]/ZIP Co de Phone Number [facility] [place] [address] * POCT Glucose (01/04/2022 7:28 PM EDT) Glucose, POC 104 65 - 199 mg/dL [facility] Comment: Supplemental ranges: <140 mg/dL before meals <180 mg/dL all other times of the day Blood 01/04/2022 7:28 PM EDT 01/04/2022 7:28 PM EDT Ray Salomon MD POINT OF CARE TEST O RDERAFRANKLIN Performing Organization Address [facility] Co de Phone Number [facility] [place] [address] * POCT Glucose (01/04/2022 4:04 PM EDT) Glucose, POC 190 65 - 199 mg/dL [facility] Comment: Supplemental ranges: <140 mg/dL before meals <180 mg/dL all other times of the day Blood 01/04/2022 4:04 PM EDT 01/04/2022 4:04 PM EDT Ray Salomon MD POINT OF CARE TEST O SANDEEPERAFRANKLIN Performing Organization Address City/[facility]/ZIP Co de Phone Number [facility] [place] [address] * POCT Glucose (01/04/2022 12:09 PM EDT) Glucose, POC 157 65 - 199 mg/dL [facility] Comment: Supplemental ranges: <140 mg/dL before meals <180 mg/dL all other times of the day Blood 01/04/2022 12:0 9 PM EDT 01/04/2022 12:09 PM EDT Ray Salomon MD POINT OF CARE TEST O RDERABLES [facility] [address] [place] [address] * ECHO COMPLETE W CONTRAST (01/04/2022 11:08 AM EDT) EF 60 HEARTLAB SYSTEM Anatomical Region Laterality Modality Cardiac Other 01/04/2022 10:3 3 AM EDT Narrative 01/04/2022 11:25 AM EDT [facility] ?[address] ? [place] [address] ?Voice: ?Fax: ? Echocardiogram Report Name: AFUA ROSALES ? Study Date: 01/04/2022 10:33 AM ? Patient [facility]: [facility] A : 1975 ? Height: 65 in ? Account: [id number] Age: 46 yrs ? Weight: 148 lb Gender: Female ?BSA: 1.7 m2 Ordering Physician: MOI LEDEZMA Referring Physician: MT VALENZUELA Exam Location: [facility]. Interpretation Summary Technically difficult. Left ventricular [...] jet. There is no valve disease. Procedure Complete-28727. Image enhancement Optison was used for left [...] Procedure Note Ray Salomon MD - 01/04/2022 [place] [address] Voice: Fax: Echocardiogram Report Name: AFUA ROSALES Study Date: :33 AM Patient Location: [address] : 1975 Height: 65 in Account: [id number] Age: 46 yrs Weight: 148 lb Gender: Female BSA: 1.7 m2 Ordering Physician: MOI LEDEZMA Referring Physician: MT VALENZUELA Exam Location: [facility]. Interpretation Summary Technically difficult. Left ventricular [...] jet. There is no valve disease. Procedure Complete-01939. Image enhancement Optison was used for left [...] Glucose, POC 100 65 - 199 mg/dL [facility] Comment: Supplemental ranges: <140 mg/dL before meals <180 mg/dL all other times of the day Blood 01/04/2022 10:0 5 AM EDT 01/04/2022 10:05 AM EDT Ray Salomon MD POINT OF CARE TEST O RDERABLES [facility] [place] [address] * POCT Glucose (01/04/2022 8:23 AM EDT) Glucose, POC 72 65 - 199 mg/dL [facility] Comment: Supplemental ranges: <140 mg/dL before meals <180 mg/dL all other times of the day Blood 01/04/2022 8:23 AM EDT 01/04/2022 8:23 AM EDT Moi Ledezma MD POINT OF CARE TEST O RDERABLES [facility] [place] [address] * POCT Glucose (01/04/2022 5:03 AM EDT) Glucose, POC 143 65 - 199 mg/dL [facility] Comment: Supplemental ranges: <140 mg/dL before meals <180 mg/dL all other times of the day Blood 01/04/2022 5:03 AM EDT 01/04/2022 5:03 AM EDT Moi Ledezma MD POINT OF CARE TEST O MUSHTAQ Performing Organization Address [facility] Co de Phone Number [facility] [place] [address] * POCT Glucose (01/04/2022 3:01 AM EDT) Glucose, POC 182 65 - 199 mg/dL [facility] Comment: Supplemental ranges: <140 mg/dL before meals <180 mg/dL all other times of the day Blood 01/04/2022 3:01 AM EDT 01/04/2022 3:01 AM EDT Moi Ledezma MD POINT OF CARE TEST O MUSHTAQ Performing Organization Address [facility] Co de Phone Number [facility] [place] [address] * (ABNORMAL) BLOOD GAS 2 VENOUS (01/04/2022 1:44 AM EDT) pH, Venous 7.33 7.32 - 7.42 [facility] PCO2, Venous 45 41 - 51 mmHg [facility] PO2, Venous 52(H) 25 - 40 mmHg [facility] Bicarbonate, Venous 23.5 mmol/L [facility] Base Excess, Venous -2.7 mmol/L [facility] Hgb Blood Gas 13.1 11.7 - 15.5 g/dL [facility] Oxyhemoglobin, Venous 86.6 % [facility] Carboxyhemoglob in, Venous 0.3 % [facility] Comment: Nonsmokers: 0.5-1.5% COHB Smokers: Variable, but usually less than 10% Toxic: 20-30% COHB Lethal: Greater than 60% COHB Methemoglobin, Venous 0.8 <=1.5 % [facility] Na Whole Blood 134(L) 135 - 145 mmol/L [facility] K Whole Blood 4.1 3.5 - 5.0 mmol/L [facility] Comment: Please note: Patients with WBC >100,000 may have falsely elevated Potassium levels. Contact the Clinical Chemistry Laboratory if there are any questions. ICa Whole Blood 1.21 1.15 - 1.33 mmol/L [facility] Comment: Note: ??Total bilirubin higher than 20 mg/dL may lead to falsely low ionized calcium. CL Whole Blood 104 98 - 107 mmol/L [facility] Gluc Whole Bld 215(H) 65 - 199 mg/dL [facility] Comment:Diabetes: >=200 mg/d L plus symptoms Lactate WB 0.8 0.5 - 2.2 mmol/L [facility] Fraction of Inspired Oxygen, Venous 21 % [facility] Blood Gas Source Venous [facility] Temperature, Venous 35.8 Celsius [facility] Blood 01/04/2022 1:44 AM EDT 01/04/2022 1:44 AM EDT Moi Ledezma MD POINT OF CARE TEST O RDERABLES [facility] [place] [address] * (ABNORMAL) Differential, Automated (01/04/2022 12:50 AM EDT) Neutrophil % 86.1 % [facility] Neutrophil Absolute 5.92 1.70 - 6.10 x10(3)/mc L [facility] Lymph % 9.6 % [facility] Lymphocytes Abs 0.7(L) 0.9 - 3.2 x10(3)/mc L [facility] Monocyte % 3.6 % [facility] Monocyte Abs 0.2(L) 0.3 - 0.9 x10(3)/mc L [facility] Eos % 0.1 % [facility] Eosinophils Abs 0.0 0.0 - 0.4 x10(3)/ L [facility] Basophil % 0.3 % [facility] Baso Absolute 0.0 0.0 - 0.1 x10(3)/ L [facility] Immature Gran % 0.30 % [facility] Comment: Immature granulocytes(IG's)percentage and absolute count will include metamyelocytes, myelocytes, and promyelocytes. Blood smears from CBCs yielding IG's will be scanned manually for concordance. If this scan disagrees with the automated IG or if promyelocytes are noted, a manual differential will be performed. Immature Gran Absolute 0.02 0.00 - 0.04 x10(3)/ L [facility] Blood 01/04/2022 12:5 0 AM EDT 01/04/2022 1:24 AM EDT Narrative Resulting Agency Comment Spec In Lab Sumanth Barnard MD HEMATOLOGY ORDERABL ES [facility] [place] [address] * (ABNORMAL) Hemogram (01/04/2022 12:50 AM EDT) White Blood Cell 6.9 4.0 - 9.5 x10(3)/ L [facility] Red Blood Cell 3.77(L) 4.00 - 5.21 x10(6)/mc L [facility] Hemoglobin 11.9 11.7 - 15.5 g/dL [facility] Hematocrit 34.4(L) 35.7 - 45.8 % [facility] Mean Cell Volume 91.2 82.6 - 94.4 fL [facility] Mean Cell Hemoglobin 31.6 27.1 - 32.0 pg [facility] Mean Cell Hemoglobin Concentration 34.6 31.7 - 35.0 g/dL [facility] Platelet 197 145 - 357 x10(3)/mc L [facility] RDW Standard Deviation 40.7 37.0 - 46.0 fL [facility] RDW coefficient of variation 12.1 11.5 - 14.1 % [facility] Mean Platelet Volume 10.4 7.6 - 12.9 fL [facility] NRBC% auto 0.0 % [facility] NRBC Absolute 0.000 0.000 - 0.000 x10(3)/mc L [facility] Blood 01/04/2022 12:5 0 AM EDT 01/04/2022 1:24 AM EDT Narrative Resulting Agency Comment Spec In Lab Sumanth Barnard MD HEMATOLOGY ORDERABL ES Performing Organization Address City/[facility]/ZIP Co de Phone Number [facility] [place] [address] * (ABNORMAL) Beta Hydroxybutyrate (01/04/2022 12:50 AM EDT) Beta-hydroxybu turate 0.95(H) 0.00 - 0.30 mmol/L [facility] Comment: Reference range: ??0.00-0.30 mmol/L, based on an overnight fast. ??Children may be higher. Blood 01/04/2022 12:5 0 AM EDT 01/04/2022 1:24 AM EDT Narrative Resulting Agency Comment Spec In Lab Moi Ledezma MD CHEMISTRY ORDERABLES [facility] [place] [address] * (ABNORMAL) Hemoglobin A1c (01/04/2022 12:50 AM EDT) Hemoglobin A1c 8.0(H) 4.3 - 5.6 % [facility] Comment: Reference Range: 4.3 [...] Mellitus, Diabetes Care 2013; 36: Suppl. 1, I13-06 Estimated Average Glucose 183 mg/dL [facility] Comment: eAG equivalents for [...] into estimated average glucose values. ??Diabetes Care 2008:31(8):5503-0058. Blood 01/04/2022 12:5 0 AM EDT 01/04/2022 1:24 AM EDT Narrative Resulting Agency Comment Spec In Lab Moi Ledezma MD CHEMISTRY ORDERABLES [facility] [place] [address] * (ABNORMAL) Troponin (01/04/2022 12:50 AM EDT) Troponin-T 0.24(H) 0.00 - 0.00 ng/mL [facility] Comment: The 99th percentile for Troponin T is less than 0.01 ng/mL, any detectable cTnT concentration using this assay should be considered elevated. According to the third universal definition of myocardial infarction the following criteria with a clinical presentation consistent with acute myocardial ischemia meets the diagnosis for a myocardial infarction (GA). Detection of a rise and/or fall of cTnT, with at least one value greater than the 99th percentile (> or = 0.01) and with at least one of the following ?? Symptoms of ischemia ?? New or presumed new significant GU-lhkqakd-R wave (ST-T) changes or new left bundle [...] additional sample may be indicated. Reference: Third Poston Definition of Myocardial Infarction. Journal of the [place] [employer] 2012;60:1581-98 Blood 01/04/2022 12:5 0 AM EDT 01/04/2022 1:24 AM EDT Narrative Resulting Agency Comment Spec In Lab Moi Ledezma MD CHEMISTRY ORDERABLES Performing Organization Address [facility] Co de Phone Number [facility] [place] [address] * pro-Brain Natriuretic Peptide (01/04/2022 12:50 AM EDT) NT-proBNP 56 <=124 pg/mL [facility] Blood 01/04/2022 12:5 0 AM EDT 01/04/2022 1:24 AM EDT Narrative Resulting Agency Comment Spec In Lab Moi Ledezma MD CHEMISTRY ORDERABLES Performing Organization Address [facility]/State/ZIP Co de Phone Number [facility] [place] [address] * LDL Cholesterol, Direct (01/04/2022 12:50 AM EDT) LDL Cholesterol, Direct 66 mg/dL [facility] Comment: Lowest Risk: <100 mg/dL Lower Risk: 100-129 mg/dL Borderline High Risk: 130-159 mg/dL High Risk: 160-189 mg/dL Very High Risk: >xh=762 mg/dL Blood 01/04/2022 12:5 0 AM EDT 01/04/2022 1:24 AM EDT Narrative Resulting Agency Comment Spec In Lab Moi Ledezma MD CHEMISTRY ORDERABLES [facility] [place] [address] * HDL/Cholesterol Profile (01/04/2022 12:50 AM EDT) Cholesterol, Total 136 mg/dL [facility] Comment: Lower Risk: <200 mg/dL Average Risk: 200-239 mg/dL Higher Risk: >mu=599 mg/dL HDL Cholesterol 63 mg/dL [facility] Comment: Males: ?? Higher Risk: <40 mg/dL Females: ?? Higher Risk: <50 mg/dL Cholesterol/HDL Ratio 2.2 ratio [facility] Chol/HDL Interpretation See Note [facility] Comment: Lipid management should be guided by a patient? s ASCVD risk, goals and preferences. ACC/AHA Guidelines recommend high intensity statin if clinical ASCVD or LDL greater than or equal to 190 mg/dL. http://[employer] [place].com/HBV-XXB-Dagrtpksn Measure LDL if Total Cholesterol minus HDL Cholesterol is greater than 220 mg/dL. Adults aged 40-75 with LDL 70-189 mg/dL should have their 10 year ASCVD risk estimated with the ACC/AHA ASCVD risk crating and moving estimator http://tools.acc.org/JWRLK-Trty-Rzuugigji/ Statin should be discussed if risk greater [...] Ledezma MD CHEMISTRY ORDERABLES Performing Organization Address [facility] Co de Phone Number [facility] [place] [address] * TSH (01/04/2022 12:50 AM EDT) Thyroid Stimulating Hormone 0.75 0.27 - 4.20 mcIU/mL [facility] Comment: Reference Interval (mcIU/mL): Females: ??First Trimester: 0.23-3.88 ??Second Trimester: 0.22-3.90 ??Third Trimester: 0.44-4.66 Blood 01/04/2022 12:5 0 AM EDT 01/04/2022 1:24 AM EDT Narrative Resulting Agency Comment Spec In Lab Moi Ledezma MD CHEMISTRY ORDERABLES Performing Organization Address [facility] de Phone Number [facility] [place] [address] * Phosphorus (01/04/2022 12:50 AM EDT) Phosphorus 2.7 2.5 - 4.5 mg/dL [facility] Blood 01/04/2022 12:5 0 AM EDT 01/04/2022 1:24 AM EDT Narrative Resulting Agency Comment Spec In Lab Moi Ledezma MD CHEMISTRY ORDERABLES Performing Organization Address [facility] Co de Phone Number [facility] [place] [address] * Magnesium (01/04/2022 12:50 AM EDT) Magnesium 0.84 0.69 - 1.07 mmol/L [facility] Blood 01/04/2022 12:5 0 AM EDT 01/04/2022 1:24 AM EDT Narrative Resulting Agency Comment Spec In Lab Moi Ledezma MD CHEMISTRY ORDERABLES [facility] [place] [address] * (ABNORMAL) Basic Metabolic Panel (non-fasting) (01/04/2022 12:50 AM EDT) Glucose 224(H) 65 - 199 mg/dL [facility] Comment:Diabetes: >=200 mg/d L plus symptoms Blood Urea Nitrogen 11 8 - 18 mg/dL [facility] Creatinine 0.62(L) 0.70 - 1.20 mg/dL [facility] Sodium 137 135 - 145 mmol/L [facility] Potassium 4.1 3.5 - 5.0 mmol/L [facility] Comment: Please note: ??Patients with WBC >100,000 may have falsely elevated Potassium levels. ??For accurate Potassium quantification in these patients send serum separator tube (gold top) for subsequent determinations. ??Contact the Clinical Chemistry Laboratory if there are any questions. Chloride 105 98 - 107 mmol/L [facility] Carbon Dioxide 22 22 - 31 mmol/L [facility] Anion Gap 10 5 - 15 mmol/L [facility] Calcium 8.5 8.5 - 10.5 mg/dL [facility] Est Glomerular Filtration Rate 107 >=60 mL/min/1. 73 m?? [facility] Comment: This patient? s [...] In Lab Moi Ledezma MD CHEMISTRY ORDERABLES [facility] [place] [address] * COVID-19 PCR (01/04/2022 12:50 AM EDT) SARS-CoV-2 RNA (Rapid) Not Detected Not Detected [facility] Comment: This result should [...] Department of Pathology and Laboratory Medicine at [facility], certified under the Clinical Laboratory Improvement [...] fact sheets at the following FDA website: https://www.fda.gov/medical-devices/ncxvnexrsrb-gzmfupv-4516-eezrw-27-cladsnbtg- use-a abrouasmoiepk-sqwsxfl-gmzenbc/kxbgw-pxgteqxuzhu-csjs SARS-CoV-2 Source INSIDE [employer] Swab [facility] Nasopharyngeal Swab 01/05/20 12:50 AM EDT 01/04/2022 1:48 AM EDT Comment:Symptoms->Surveillan ce Narrative Resulting Agency Comment Spec In Lab Moi Ledezma MD MICROBIOLOGY - GENER AL ORDERABLES [facility] [place] [address] * EKG 12 Lead (01/04/2022 12:45 AM EDT) Ventricular rate 94 BPM MUSE SYSTEM Atrial Rate 94 BPM MUSE SYSTEM P-R Interval 140 ms MUSE SYSTEM QRS Duration 92 ms MUSE SYSTEM Q-T Interval 370 ms MUSE SYSTEM QTC Calculated (Bezet) 462 ms MUSE SYSTEM Calculated P Roscoe 69 degrees MUSE SYSTEM Calculated R Roscoe 2 degrees MUSE SYSTEM Calculated T Roscoe 89 degrees MUSE SYSTEM INTERPRETATION Normal sinus rhythm Low voltage QRS Nonspecific ST and T wave abnormality Abnormal ECG When compared with ECG of 13-NOV-1999 14:45, ST now depressed in Anterior leads Nonspecific T wave abnormality now evident in Lateral leads Confirmed by MD Umm, Ray Espinoza ([id number]) on 01/04/2022 1:03:04 PM MUSE SYSTEM 01/04/2022 12:4 5 AM EDT 01/04/2022 1:03 PM EDT Moi Ledezma MD ECG ORDERABLES Performing Organization Address [facility] de Phone Number MUSE SYSTEM * POCT Glucose (01/04/2022 12:07 AM EDT) Glucose, POC 126 65 - 199 mg/dL [facility] Comment: Supplemental ranges: <140 mg/dL before meals <180 mg/dL all other times of the day Blood 01/04/2022 12:0 7 AM EDT 01/04/2022 12:07 AM EDT Moi Ledezma MD POINT OF CARE TEST O RDERABLES Performing Organization Address [facility] de Phone Number [facility] [place] [address] * CARDIAC CATHETERIZATION (01/03/2022 11:45 PM EDT) Anatomical Region Laterality Modality Other Narrative 01/03/2022 11:54 PM EDT ?[facility] ? Cardiac Catheterization/Intervention Report ? Patient Name: Afua Rosales. ? Procedure Date: 01/03/2022 ? A #: [id number] ? Primary Physician: Moi Ledezma ? Case #: [id number] ? File Name: [id number] ? Catheterization Order Number: [id number] ? [facility] ? Final Report [place], [place] ? Patient Name: ? Afua A. Silver ?ID#: ?[id number] ? : ?1975 ? Procedure Date: ? [...] was ?designated as ASA Class IV. The [facility] clinical frailty scale is 5: Mildly ?Frail. ? Diagnostic Tests: ?Electrocardiography: ? EKG was assessed by ECG. EKG was Abnormal. EKG showed ST Deviation ? >= 0.5 mm and other abnormality. ?Medications Prior to Procedure: ? Aspirin, Statin and Thrombolytic (any). ? Indications for Diagnostic Cath: ?The priority of the diagnostic procedure was Emergent. The indication for ?the laboratory aide visit is ACS less than or equal [...] ?SH guiding catheter and a 3.5 Fr [place] [facility] [address] ??20 Mhz. ??Imaging ?was successful. ??Image quality was excellent. ??The mid RCA showed severe ?diffuse atherosclerotic plaque. ??Measurements were performed after ?pre-dilation. ?Post Intervention: The stent was well expanded and apposed. ?Intravascular Ultrasound was performed in the distal RCA using a 6 Fr JR ?4 SH guiding catheter and a 3.5 Fr [place] [address] ??20 Mhz. ?Imaging was successful. ??Image [...] dose administered prior to arrival in the laboratory aide. ?Recommended anti-platelet/anti-thrombotic regimen: ?Start aspirin 81 mg daily now and continue for indefinitely. ?Start clopidogrel 75 mg daily now and continue for 12 months then stop. ?These recommendations are made at the time of the intervention. Patient ?and provider preferences or a changing clinical situation may require ?modification of this regimen. Consult [facility] Interventional Cardiology for ?questions. ?The 1 year [...] against any medical treatment. Consult ?http://tools.acc.org/DAPTriskapp/#!/content/calculator/ or [facility] ?Interventional Cardiology for questions ? Conclusions: ?* [...] Procedure Note Moi Ledezma MD - 01/14/2022 [facility] Cardiac Catheterization/Intervention Report Patient Name: Afua RosalesMono Procedure Date: 01/03/2022 A #: [id number] Primary Physician: Moi Ledezma Case #: [id number] File Name: [id number] Catheterization Order Number: [id number] [facility] FinalReport [place], [place] Patient Name: Afua Rosales ID#:[id number] :1975 Procedure Date: January 03, 2022 Case [...] patientwas designated as ASA Class IV. The [facility] clinical frailty scale is 5:Mildly Frail. Diagnostic Tests: Electrocardiography: EKG was assessed by ECG. EKG was Abnormal. EKG showed STDeviation >= 0.5 mm and other abnormality. Medications Prior to Procedure: Aspirin, Statin and Thrombolytic (any). Indications for Diagnostic Cath: The priority of the diagnostic procedure was Emergent. Theindication for the laboratory aide visit is ACS less than or equal [...] SH guiding catheter and a 3.5 Fr [place] [facility] [address] 20 Mhz.Imaging was successful. Image quality was excellent. The mid RCA showedsevere diffuse atherosclerotic plaque. Measurements were performed after pre-dilation. Post Intervention: The stent was well expanded and apposed. Intravascular Ultrasound was performed in the distal RCA using a 6Fr JR 4 SH guiding catheter and a 3.5 Fr [place] [facility] [address] 20 Mhz. Imaging was successful. Image quality was excellent. The distalRCA showed severe diffuse atherosclerotic plaque. Measurements were performed after pre-dilation. Post Intervention: The stent was well expanded and apposed. Indication for Intervention: Coronary intervention was indicated for primary therapy for an acute myocardial infarction. The priority for the procedure was Emergent.The [facility] indication for the procedure was [...] The lesion was predilated with a 2.00mm [id number] MM balloon with a maximum inflation pressure [...] dose administered prior to arrival in the laboratory aide. Recommended anti-platelet/anti-thrombotic regimen: Start aspirin 81 mg daily now and continue for indefinitely. Start clopidogrel 75 mg daily now and continue for 12 months thenstop. These recommendations are made at the time of the intervention.Patient and provider preferences or a changing clinical situation mayrequire modification of this regimen. Consult [facility] Interventional Cardiologyfor questions. The 1 year bleeding [...] or against any medical treatment.Consult http://tools.acc.org/DAPTriskapp/#!/content/calculator/ or [facility] Interventional Cardiology for questions Conclusions: * Two [...] (ABNORMAL) POCT Glucose (01/03/2022 11:31 PM EDT) [facility] Signature Glucose, POC 200(H) 65 - 199 mg/dL [facility] Comment: Supplemental ranges: <140 mg/dL before meals <180 mg/dL all other times of the day Blood 01/03/2022 11:3 1 PM EDT 01/03/2022 11:31 PM EDT Moi Ledezma MD POINT OF CARE TEST O RDERABLES [facility] [place] [address] * (ABNORMAL) POCT Glucose (01/03/2022 10:56 PM EDT) Glucose, POC 265(H) 65 - 199 mg/dL [facility] Comment: Supplemental ranges: <140 mg/dL before meals <180 mg/dL all other times of the day Blood 01/03/2022 10:5 6 PM EDT 01/03/2022 10:56 PM EDT Moi Ledezma MD POINT OF CARE TEST O RDERABLES [facility] [place] [address] * (ABNORMAL) Point of Care Blood Gas Historical (01/03/2022 10:38 PM EDT) pH, POC 7.35 7.35 - 7.45 [facility] pCO2, POC 46(H) 35 - 45 mmHg [facility] pO2, POC 93 85 - 104 mmHg [facility] Base Excess, POC 0.0 -3.0 - 3.0 mmol/L [facility] Bicarbonate, POC 25.3 20.0 - 26.0 mmol/L [facility] Sodium, POC 141 135 - 145 mmol/L [facility] POC Potassium 3.7 3.5 - 5.0 mmol/L [facility] Ionized Calcium, POC 1.26 1.15 - 1.33 mmol/L [facility] POC Hematocrit 35.0 34.0 - 45.0 % [facility] POC Calc Hgb 11.9 11.2 - 15.7 g/dL [facility] Comment:The calculation of h emoglobin from hematocrit assumes a normal MCHC. POC Bgas Loc CC LAB [facility] Blood 01/03/2022 10:3 8 PM EDT 01/09/2022 12:00 PM EDT Ray Salomon MD CHEMISTRY ORDERABLES Performing Organization Address City/[facility]/ZIP Co de Phone Number [facility] [place] [address] * (ABNORMAL) POCT Glucose (01/03/2022 10:37 PM EDT) Glucose, POC 63(L) 65 - 199 mg/dL [facility] Comment: Supplemental ranges: <140 mg/dL before meals <180 mg/dL all other times of the day Blood 01/03/2022 10:3 7 PM EDT 01/03/2022 10:37 PM EDT Moi Ledezma MD POINT OF CARE TEST O RDERABLES Performing Organization Address [facility]/ZIP Co de Phone Number [facility] [place] [address] documented in this encounter Visit Diagnoses Not [...] Routine documented in this encounter Care Teams Electrical Engineering Technician Relationship Specialty Start Date End Date Felisha Juan, DEMETRIS [address] [place] [address] PCP - General Family Medicine 10/29/15 01/29/22 documented as of this encounter
--- OUTSIDE RECORDS SUMMARY | 2024-06-19 15:13 | XMS_ITS | Encounter Summary ---
Author Organization [facility] Address [facility] [place] [address] Care Team Providers Care Youth Corrections Officer Name Role Phone Felisha Juan APRN Primary Care Provider + [phone] Encounter Details Date Type Department Care Team (Late st Contact Info) Description 01/03/2022 Notes Only Cardiology [facility] [place] [address] Madi Briceño MD [facility] [place] [address] Social History Tobacco Use Types Packs/Day Years [...] Hospital to which patient presented: [facility] to which patient presented= [facility]: ED Walk In Date [...] and inferior stemi STEMI Alert called: Yes Manager Neonatal Activated by: Mail Examiner Initial Disposition: Admit Manager Neonatal documented in this encounter Plan of Treatment Not on file documented as of this encounter Visit Diagnoses Not on filedocumented in this encounter Care Teams Youth Corrections Officer Relationship Specialty Start Date End Date Felisha Juan, DEMETR[address] [place] [address] PCP - General Family Medicine 10/29/15 01/29/22 documented as of this encounter
--- NOTE | 2024-06-19 15:41 | W.PC.ACHO ---
Registration Status: Primary Language: Preferred Language: ED Information & Data Chief Complaint GenMedical 06/19/24 14:14 Chief Complaint GenMedical 06/19/24 13:00 Triage Note increased weakness and 06/19/24 12:44 numbness on left side, took 5/325 oxy/apap as prescribed , made more tired family reported she was only responsive to pain, AOx4 with EMS, pill count correct per EMS able to answer all question in trg Medical / Surgical History (Last Reviewed 06/17/24 @ 15:41 by Tanmay Doty MD) Hypomagnesemia Cancer of cervix Hyperkalemia Visual loss Acute pain in female pelvis Elevated troponin History of deep vein thrombophlebitis of lower extremity (Last Reviewed 06/17/24 @ 15:41 by Tanmay Doty MD) Hx of LASIK Hx of section History of partial hysterectomy Most Recent Vital Signs Temperature 36.6 C 06/19/24 12:44 Temperature Source Oral 06/19/24 12:44 Pulse 75 06/19/24 15:01 Pulse 77 06/19/24 15:01 Respiratory Rate 14 06/19/24 15:01 Respiratory Effort Normal, Non-Labored 06/19/24 14:14 Blood Pressure 107/49 L 06/19/24 15:01 Blood Pressure Mean 66 06/19/24 15:01 Pulse Oximetry 99 06/19/24 15:01 Oxygen Delivery Method Room Air 06/19/24 12:44 Oxygen Flow Rate 0 06/19/24 12:44 Allergies No Known Allergies Allergy (Verified 06/19/24 12:50) Precautions Isolation Standard precaution 06/19/24 14:14 IV IV Catheter Type [Right Upper Peripheral IV arm] IV Catheter Gauge [Right Upper 18 arm] Diet Orders Category Date Time Status Diabetes Consistent CHO/Heart Healthy [DIET] Nutrition 06/19/24 Dinner Active Diagnostics 06/19/24 Range/Units 13:15 WBC 5.95 (4.4-10.8) 10^3/uL RBC 4.10 (3.93-5.22) 10^6/uL Hgb 13.0 (11.2-15.7) g/dL Hct 38.9 (36.0-46.0) % MCV 95 (80-95) fL MCH 31.7 (27.0-33.0) pg MCHC 33.4 (32.0-36.0) % RDW 12.5 (11.7-14.6) % Plt Count 183 (130-400) 10^3/uL MPV 9.3 (8.0-11.0) fL Immature Gran % 0.3 % Neutrophils % 49.6 % Lymphocytes % 36.3 % Monocytes % 11.6 % Eosinophils % 1.7 % Basophils % 0.5 % Nucleated RBC % 0.0 (0.0-0.3) % Absolute Neutrophils 2.95 (1.2-6.7) 10^3/uL Absolute Lymphocytes 2.16 (1.2-3.4) 10^3/uL Absolute Monocytes 0.69 (0.1-0.8) 10^3/uL Absolute Eosinophils 0.10 (0.0-0.7) 10^3/uL Absolute Basophils 0.03 (0.0-0.2) 10^3/uL VBG pH 7.30 L (7.31-7.41) VBG pCO2 60 H (41-51) mmHg VBG pO2 32 mmHg VBG HCO3 30 H (23-28) mmol/L VBG Total CO2 28 (24-29) mmol/L VBG O2 Saturation 55 % VBG Base Excess 3 (-2-3) mmol/L Sodium 142 (136-145) mmol/L Potassium 4.7 (3.5-5.1) mmol/L Chloride 105 (98-107) mmol/L Carbon Dioxide 30.9 (21.0-32.0) mmol/L Anion Gap 6.1 (3-11) mmol/L BUN 22 H (7-18) mg/dL Creatinine 1.0 (0.55-1.02) mg/dL Est GFR (CKD-EPI 2020) 68.63 (mL/min/1.73m2) Glucose 56 L (74-106) mg/dL Calcium 9.7 (8.5-10.1) mg/dL Magnesium 1.9 (1.8-2.4) mg/dL Total Bilirubin 0.45 (0.2-1.0) mg/dL AST 35 (15-37) U/L ALT 49 (14-59) U/L Alkaline Phosphatase 114 (46-116) U/L Total Protein 7.6 (6.4-8.2) g/dL Albumin 3.7 (3.4-5.0) g/dL Ethyl Alcohol < 3.0 (<10) mg/dL [id number] Documentation Fingerstick Glucose Start: 06/19/24 15:07 Freq: Status: Active Protocol: Activity Type Activity Date Activity User E-sign Co-sign Detail Recorded Client Recorded Date Recorded By Document 06/19/24 15:28 BKG DAEMON(3) [id number] 06/19/24 15:30 BKG DAEMON(4) Intake and Output - 24 Hour Total 06/19/24 12:35 thru 06/19/24 12:44 Weight 65 kg Falls Risk Assessment History of Falls No History 06/19/24 15:11 Contributing Factors Impairments 06/19/24 15:11 Ambulatory Aids Uses ambulatory device + 06/19/24 15:11 Tubes/Lines With any additional score 06/19/24 15:11 Gait Evaluation W/any additional score 06/19/24 15:11 Cognition No cognitive impairment 06/19/24 15:11 Fall Total Score 73 06/19/24 15:11 Level of Risk High Risk 06/19/24 15:11 v v v v v v v v v Sending and/or Receiving Nurses: Please use comment section below to note any information pertinent to the patient hand-off not included above. Information / Comments: Report taken from HEMP FIBER TAKER OFF Mariangel, patient is alert and oriented x 3. FS was 53, given snacks before coming to the unit. Rechecked by ER nurse was 67. Weakness on left arm and leg with numbness and weakness. All questions answered appropriately. Report received from:
[2024-06-19 17:22] LABS: Bilirubin Negative (Negative); Blood Negative (Negative); Clarity Clear (Clear); Glucose Negative (Negative); Ketones Negative (Negative); Leukocyte Esterase Negative (Negative); Nitrite Negative (Negative); Specific Gravity 1.015 (1.005-1.025); Urobilinogen 0.2 mg/dL (Up to 0.2); pH 6.5 (5-8)
--- NOTE | 2024-06-19 17:24 | W.PM.HP.N ---
Date of service: 06/19/24 Time of Service: : Assessment and Plan Assessment and plan (1) Brain TIA: Status: Acute Assessment and plan: Admitted observation under hospitalist services for stroke rule out Will continue telemetry monitoring Teleneuro consultation completed patient has been loaded with clopidogrel 300 mg will continue 75 mg daily Continue high-dose statin lipid profile in june 2023 (triglycerides 48, total chol 145, LDL 68 HDL 68) CTA of the head and neck shows no large vessel occlusion or hemorrhage proceed with MRI tomorrow Neuro checks overnight Echocardiogram if MRI positive last echo on file 04/22/2022 showed no septal defect and no significant valvular abnormalities (2) Atherosclerosis of coronary artery without angina pectoris: Status: Acute Assessment and plan: Stable with no reports of chest pain (3) Type 1 diabetes mellitus: Status: Acute Assessment and plan: Will continue home Lantus at reduced dose with coverage with meals. Her blood glucose was 62 on arrival to the floor. May need to add some meal coverage and carb coverage but will hold for now and closely monitor with sliding scale coverage in addition to her basal insulin reduced from 22 units to 15 units daily. Last hemoglobin A1c 7.8 May 31, 2024 Qualifiers: Diabetes mellitus complication status: with hyperglycemia Qualified Code(s): E10.65 - Type 1 diabetes mellitus with hyperglycemia (4) Elevated TSH: Status: Resolved Assessment and plan: Most recent TSH 0.76 May 30, 2024 (5) Chronic GERD: Status: Acute Assessment and plan: Stable continue PPI (6) Persistent central canal syrinx: Status: Acute Assessment and plan: Of the thoracic spine followed by neurosurgery at [facility] with recent stable thoracic spine MRI done this past . Recommendations are for MRI with and without contrast of the cervical spine to evaluate if etiology for left arm numbness and weakness. discussed with DR Vazquez History of Present Illness Narrative: This is a 49-year-old female patient significant past medical history for diabetes mellitus type 1, coronary artery disease status post stenting, legal blindness, dyslipidemia, retinopathy, thoracic spine syrinx who presented to the emergency department by EMS after experiencing over a week of left arm numbness which worsened today with symptoms to include aphasia and left leg numbness. Those symptoms have resolved and she is still experiencing the left arm numbness that she has been experiencing. She denies any fever chills or recent illness. She denies any headache and again no visual changes but legally blind. She has had no nausea no vomiting. She reports she is ambidextrous. Her workup in the emergency department included a CTA of the head and neck which showed no large vessel occlusion or hemorrhage. She did undergo a teleneurology consult and recommendations were for Plavix load and admission for stroke rule out. She should also undergo MRI with and without contrast of her C-spine. Review of Systems All systems reviewed & are unremarkable except as noted in HPI and below PFSH All Active Problems (Updated 06/19/24 @ 17:40 by Eve Barbour NP) Persistent central canal syrinx (Acute) Brain TIA (Acute) Arm numbness left (Acute) Back pain (Acute) UTI (urinary tract infection) (Acute) Migraine (Chronic) Poorly controlled type 1 diabetes mellitus with autonomic neuropathy (Acute) N&V (nausea and vomiting) (Acute) Chronic GERD (Acute) Elevated LFTs (Acute) PAD (peripheral artery disease) (Acute) ADIEL - done at [facility] surgical 01/28/24 Dysphagia (Acute) DKA (diabetic ketoacidosis) (Acute) Hx of tonsillectomy (Chronic) Atherosclerosis of coronary artery without angina pectoris (Acute) Retinopathy due to secondary diabetes mellitus (Acute) Gastroesophageal reflux disease without esophagitis (Acute) Mild intermittent asthma (Acute) Hyperlipemia (Acute) H/O heart artery stent (Chronic) [address] [facility] 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 of right ear (Acute) Nail dystrophy (Acute) Type 1 diabetes mellitus with diabetic polyneuropathy (Acute) Retinopathy (Acute) Type 1 diabetes mellitus (Acute) Asthma (Chronic) GERD (gastroesophageal reflux disease) (Chronic) CAD (coronary artery disease), [place] coronary artery (Acute) Neurogenic bladder (Acute) IDDM (insulin dependent diabetes mellitus) (Chronic) Nonsustained paroxysmal ventricular tachycardia (Acute) Vitamin D deficiency (Acute) Neuropathy (Acute) Chronic kidney disease, stage I (Acute) Hearing loss (Acute) Blind right eye (Acute) Cellulitis of foot (Acute) Medical History Hypomagnesemia Cancer of cervix Hyperkalemia Visual loss Acute pain in female pelvis Elevated troponin History of deep vein thrombophlebitis of lower extremity Surgical History Hx of DEMARCUS Hx of section At [facility] 2006 History of partial hysterectomy Family History Father Asthma Diabetes Heart disease Hypertension Maternal Aunt Breast cancer Mother Hypertension Heart disease Maternal Aunt Breast cancer COPD (chronic obstructive pulmonary disease) Maternal Aunt Diabetes Social History Smoking/Tobacco Use Status: Never Second Hand Exposure: Yes Smoking risk assessment performed?: Yes Alcohol Intake: never Drug use: Never Substance use type: does not use Adopted: No Caregiver/Support person: Yes (significant other) Foster care: No Household members: significant other and children Housing: apartment Number of Children: 1 number of grandchildren: 0 Communication Needs: Hard of Hearing and Blind Education Level: high school Do you need help understanding health information?: Often current occupation: Disabled Pets and animals: Yes (1 Cat, 2 Guinea Pigs) Pets and animals: cat(s) and guinea pig(s) Do you think of yourself as: straight/heterosexual Current gender identity: female What is your relationship status?: living with partner How often do you talk on the phone with friends or family?: three or more times per week How often do you get together with friends or relatives?: three or more times per week How often do you attend sikhism or shinto services?: decline to answer Do you belong to any clubs or organized social groups?: no Panel score (0-1 are the most socially isolated patients): 2 What type of physical activity do you participate in: walking Duration: 15-30 minutes/day Frequency: daily Trina/Baptism: None Seatbelt use: always Drive intox or ride w/intox charter and tour bus driver: No Do you feel safe at home: Yes Do you feel safe in your relationship?: Yes Female Reproductive History Menstrual Menopause type: surgical History History 14 Para Hx # Term Pregnancies Multiple births Hx # Pregnancies 1 Ectopic pregnancies AB induced Hx Number of Living Children AB spontaneous Meds Allergies and Home Medications Allergies Allergy/AdvReac Type Severity Reaction Status Date / Time No Known Allergies Allergy Verified 06/19/24 12:50 Home Medications ?Medication ?Instructions ?Recorded ?Confirmed ?Type acetone (urine) test (Ketostix 01/29/22 06/19/24 History strips) aspirin 81 mg chewable tablet 81 mg PO DAILY 01/29/22 06/19/24 History (Children's Aspirin) atorvastatin 80 mg tablet 80 mg PO DAILY 02/22/22 06/19/24 History insulin glargine 100 unit/mL (3 20 unit subcut DAILY 02/22/22 06/19/24 History mL) subcutaneous pen (Basaglar KwikPen U-100 Insulin) magnesium oxide 400 mg (241.3 mg 400 mg PO DAILY #14 tabs 04/23/22 06/19/24 Rx magnesium) tablet empagliflozin 10 mg tablet 10 mg PO DAILY 90 days #90 tabs 02/26/24 06/19/24 Rx (Jardiance) insulin aspart 1 sliding scale dose subcut AC 03/18/24 06/19/24 History (niacinamide)(U-100) 100 unit/mL(3 mL) subcutaneous pen (Fiasp FlexTouch U-100 Insulin) multivitamin with folic acid 400 1 tab PO DAILY 03/18/24 06/19/24 History mcg tablet (Tab-A-Aaron) albuterol sulfate 90 mcg/actuation 2 puff inhalation Q6H PRN 03/24/24 06/19/24 Rx aerosol inhaler shortness of breath or wheezing #8.5 grams insulin admin supplies (Novopen #1 ea 03/25/24 06/19/24 Rx Echo subcutaneous) insulin aspart U-100 100 unit/mL 5 unit (0.05 mL) subcut TID 90 03/25/24 06/19/24 Rx subcutaneous cartridge (Novo days #15 mL PenFill U-100 Insulin aspart) metoprolol succinate 25 mg 12.5 mg (1/2 x 25 mg) PO DAILY #90 04/18/24 06/19/24 Rx tablet,extended release 24 hr tabs pantoprazole 40 mg tablet,delayed 40 mg PO DAILY #30 tabs 05/16/24 06/19/24 Rx release (Protonix) oxycodone-acetaminophen 5 mg-325 1 tab PO Q6H PRN #10 tabs 06/17/24 06/19/24 Rx mg tablet (Percocet) Exam Narrative Exam Narrative: Chronically ill-appearing female older than stated age normal body habitus. Head is atraumatic eyes nonicteric noninjected facial features symmetrical smile symmetrical. Oral mucosa is moist no exudate poor dentition neck is supple full range of motion no JVD cardiovascular regular rate and rhythm respirations even and unlabored abdomen benign she moves all extremities equally I appreciate no weakness. Cranial nerves II through XII grossly intact able to perform [id number] equally bilaterally with no ataxia. Gait not tested good bilateral lower extremity strength equal. Neurologic she is awake alert oriented good historian. Psychiatric appropriate mood and affect Results Labs 06/19/24 13:15 06/19/24 13:15 Labs: Laboratory Results - last 24 hr 06/19/24 06/19/24 13:15 17:11 WBC 5.95 RBC 4.10 Hgb 13.0 Hct 38.9 MCV 95 MCH 31.7 MCHC 33.4 RDW 12.5 Plt Count 183 MPV 9.3 Immature Gran % 0.3 Neutrophils % 49.6 Lymphocytes % 36.3 Monocytes % 11.6 Eosinophils % 1.7 Basophils % 0.5 Nucleated RBC % 0.0 Absolute Neutrophils 2.95 Absolute Lymphocytes 2.16 Absolute Monocytes 0.69 Absolute Eosinophils 0.10 Absolute Basophils 0.03 VBG pH 7.30 L VBG pCO2 60 H VBG pO2 32 VBG HCO3 30 H VBG Total CO2 28 VBG O2 Saturation 55 VBG Base Excess 3 Sodium 142 Potassium 4.7 Chloride 105 Carbon Dioxide 30.9 Anion Gap 6.1 BUN 22 H Creatinine 1.0 Est GFR (CKD-EPI 2020) 68.63 Glucose 56 L Calcium 9.7 Magnesium 1.9 Total Bilirubin 0.45 AST 35 ALT 49 Alkaline Phosphatase 114 Total Protein 7.6 Albumin 3.7 Urine Color Yellow Urine Clarity Clear Urine pH 6.5 Ur Specific White 1.015 Urine Protein Negative Urine Ketones Negative Urine Blood Negative Urine Nitrite Negative Urine Bilirubin Negative Urine Urobilinogen 0.2 Ur Leukocyte Esterase Negative Urine Glucose Negative Ethyl Alcohol < 3.0 Last Vital Signs Temp 36 C L 06/19/24 16:00 Pulse 70 06/19/24 16:00 Resp 16 06/19/24 16:00 BP 109/49 L 06/19/24 16:00 Pulse Ox 100 06/19/24 16:00 Time Spent Time spent with Patient: 55-74 minutes Time was spent: preparing to see the patient(eg.review tests), obtaining and/or reviewing [facility], ordering medications,tests, procedures, indepentently interpreting results and counseling the patient
[2024-06-19 17:34] LABS: *AMPHETAMINES SCREEN URINE Negative (Negative); *BARBITURATES SCREEN URINE Negative (Negative); *BENZODIAZEPINES SCREEN URINE Negative (Negative); Cannabinoids THC Negative (Negative); Cocaine Screen,Urine Negative (Negative); METHADONE URINE SCREEN Negative (Negative); OPIATES URINE SCREEN Negative (Negative)
[2024-06-19 17:36] LABS: Tricyclic Antidepressants Negative (Negative)
[2024-06-19] MEDS: Atorvastatin 40 MG TAB 80 MG PO (19:52)
[2024-06-19] MEDS: Normal Saline Flush 10 ML SYR IVP (19:52)
--- NOTE | 2024-06-20 | DI.MRI_ITS ---
Exam(s) MR BRAIN WO EXAM: MR BRAIN WO CLINICAL HISTORY: left sided weakness and aphasia, TECHNIQUE: Multiplanar multisequence MRI of the brain was performed. COMPARISON: No exams were available for comparison FINDINGS: CEREBRAL PARENCHYMA: There is no evidence of intracranial hemorrhage, mass effect, or shift of midline structures. There are no extra-axial fluid collections. Ventricles are not enlarged or shifted. There is no significant focal signal abnormality in the cerebellar hemispheres nor within the jean, m idbrain, and thalami. There is no significant abnormal signal abnormality in the periventricular white matter. There is no significant focal signal abnormality evident on diffusion imaging to suggest acute ischem ic event. PITUITARY GLAND: No mass nor parasellar abnormality. No obvious abnormality in the cavernous sinuses. FLOW VOIDS: The expected flow void are noted. No evidence of obvious aneurysm nor obvious vascular ma lformation. PARANASAL SINUSES: The visualized paranasal sinuses appear unremarkable. No obvious finding ORBITS: No obvious findings. IMPRESSION: No significant intracranial findings on this noninfused MRI scan of the brain. DATA REPOSITORY:
--- NOTE | 2024-06-20 | DI.MRI_ITS ---
Exam(s) MR CERVICAL SPINE WO/W EXAM: MR CERVICAL SPINE WO/W CLINICAL HISTORY: left arm numbness, history thoracic spine syrinx TECHNIQUE: Multiplanar multisequence MRI of the cervical spine was performed with both pre and post contrast infused sequences. Contrast injected was 13 mL Dotarem COMPARISON: MR MR CERVICAL SPINE WO from 04/01/2024 MR MR THORACIC SPINE WO/W from 06/17/[address] BRAIN NECK CTA from 06/19/2024 FINDINGS: CERVICOMEDULLARY JUNCTION: Intact with no evidence of cerebellar tonsillar ectopia. No obvious abnor mality of the odontoid process. No evidence of Chiari 1 malformation. CERVICAL SPINAL CORD: Previously described sign renal milia is again noted starting at and below the upper T2 level. There is no syringomyelia evident within the cervical spinal cord. OSSEOUS:There is partial developmental fusion of this C 4 and C5 vertebral bodies with developmental small disc space between these 2 vertebrae. There is also partial fusion of the facet joints bilater ally at this level. These findings result in some reversal of the normal cervical curvature. There are no other fused levels evident in the cervical spine. . INDIVIDUAL LEVELS: C2-3: No significant disc herniation nor central canal stenosis. No foraminal stenosis. No facet art hropathy. No abnormal enhancement at this level C3-4: No disc herniation nor central canal stenosis.No facet arthropathy. No foraminal stenosis. No abnormal enhancement at this level. C4-5: Rudimentary disc space related to developmental fusion of C4 and C5 vertebral bodies. There is no disc herniation. No central canal stenosis at the disc space level. No significant overgrowth o f the fused facet joints. No significant foraminal stenosis. No abnormal enhancement at this level. C5-6: This level exhibits normal disc height. There is relatively symmetrical annular bulging but th ere is also a small left paracentral focal disc protrusion extending posteriorly 2 mm and approximate ly 2 mm wide. There is central spinal canal stenosis at this level with AP dimension of the canal be ing 6 mm. No abnormal signal nor enhancement in the spinal cord at this level. Mild bilateral melany inal stenosis mostly related to short AP dimensions of the pedicles. There are minimal degenerative changes in the facet joints. No abnormal enhancement at this level. C6-7: Preserved disc height. Broad annular bulging and there is an element of spinal canal stenosis also at this level with AP measurement of the canal being 6.5 mm with some flattening of the thecal s ac and spinal cord noted. No abnormal enhancement at. Mild bulging of annulus into the bilateral ex iting neural foramina there is mild foraminal stenosis bilaterally at this level due to short AP dime nsions of the pedicles and annular bulging. No abnormal enhancement at this level. C7-T1: No disc herniation nor central canal stenosis. No facet arthropathy.No foraminal stenosis. IMPRESSION: 1. Again noted is syringomyelia at and below the mid-upper T2 level. There is no syringomyelia evide nt in the cervical spinal cord and no evidence of cerebellar tonsillar ectopia nor focal enhancing le sions in the cervical spinal cord and epidural space. 2. There is significant spinal canal stenosis at C5-6 and C6-7 levels as described above. 3. There is developmental fusion of C4 and C5 vertebral bodies. This results in an element of revers al of the normal curvature of the cervical spine. Central canal dimensions at this level are lower n ormal. DATA REPOSITORY:
[2024-06-20 01:00] VITALS: BP 129/56; PULSE 82; RESP 18; TEMP 36.7; O2SAT 97
[2024-06-20 04:45] VITALS: BP 121/58; PULSE 81; RESP 17; TEMP 36.6; O2SAT 98
[2024-06-20 06:26] LABS: Abs Immature Grans 0.01 10^3/uL (0.0-0.06); Absolute Basophil Count 0.04 10^3/uL (0.0-0.2); Absolute Eosinophil Count 0.05 10^3/uL (0.0-0.7); Absolute Lymphocyte Count 0.91 10^3/uL (1.2-3.4); Absolute Monocyte Count 0.56 10^3/uL (0.1-0.8); Absolute Neutrophil Count 3.85 10^3/uL (1.2-6.7); Basophils % 0.7 %; Eosinophils % 0.9 %; HCT 38.7 % (36.0-46.0); HGB 13.2 g/dL (11.2-15.7); Immature Grans % 0.2 %; Lymphocytes % 16.8 %; MCH 31.3 pg (27.0-33.0); MCHC 34.1 % (32.0-36.0); MCV 92 fL (80-95); MPV 9.6 fL (8.0-11.0); Monocytes % 10.3 %; Neutrophils % 71.1 %; Platelet Count 181 10^3/uL (130-400); RBC 4.22 10^6/uL (3.93-5.22); RDW 12.6 % (11.7-14.6); RDW-SD 42.4 fL; WBC 5.42 10^3/uL (4.4-10.8)
[2024-06-20 06:34] LABS: Anion Gap 6.9 mmol/L (3-11); BUN 22 mg/dL (7-18); CO2 29.1 mmol/L (21.0-32.0); Calcium 9.4 mg/dL (8.5-10.1); Chloride 101 mmol/L (98-107); Estimated GFR 68.63 (mL/min/1.73m2); Glucose 286 mg/dL (74-106); Potassium 4.6 mmol/L (3.5-5.1); Sodium 137 mmol/L (136-145)
[2024-06-20 07:25] VITALS: BP 111/55; PULSE 83; RESP 16; TEMP 37.1; O2SAT 97
[2024-06-20] MEDS: Insulin Aspart 300 UNITS/3 ML PEN SC ×2 (08:06→13:23)
--- NOTE | 2024-06-20 08:28 | PDOC.CMIN ---
Date of service: 06/20/24 Time of Service: 08:28 Care Management Initial Assmt Initial Assessment Reason for Hospitalization: TIA Functional Status/Living Situation Patient Presentation: Kailey was sitting up in a chair when CM met with her. She was pleasant and engaged easily in conversation with CM. Kailey was admitted with weakness and numbness of her left upper and lower extremities. She shared that she also had speech difficulties but those have resolved. Kailey has Type I Diabetes and has visual and hearing impairments. She has CFC and her daughter Abbie is her paid caregiver. She lives in an apartment in [facility] with her daughter, her boyfriend Delano and his brother Tony. She is independent with bathing, dressing and feeding herself but does need help with meal preparation, shopping and transportation. Kailey is generally independent with ambulation although she does own canes and a walker. Town of Residence: [place] Resides with: Spouse Significant Other/Family: Local Employment Status: Disabled Instrumental Activities of Daily Living (ADLs): Independent (mostly independent but does have a paid caregiver) Advance Directives Advance Directives: Do you have an Advance Directive: N 06/23/23 14:11 AD On File at [facility]: N 06/23/23 14:11 Date Asked 06/19/24 06/19/24 15:10 AD Date Reviewed COLST On File at [facility] No 05/27/24 19:41 COLST Date Scanned Code Status Resuscitation Status Full Code Portal Pt does not currently have a portal and education provided: No Insurance Coverage/Financial Issues Insurance: Medicare Medicaid Care Team Visit Care Team Role Provider Type Karie Lindsey NP Primary Care Provider NURSE PRACTITIONER Shaista Mayfield RDN, [facility] Other Providers DIRECTOR HAIR Kathy Wilkerson Other Providers DIRECTOR HAIRJIMMIE Marsh RDN Other Providers DIRECTOR HAIR Cam Wilcox MD Emergency Provider [facility] STAFF PHYSICIAN Misael Vazquez MD Admit Provider [facility] STAFF PHYSICIAN Attending Provider Discharge Potential Discharge Needs: PCP F/U Appt Anticipated Barriers to Discharge: None Identified Patient/Family Education Needs: Review discharge instructions, discuss Ask Me Three Transportation: Private vehicle Plan: Anticipate Kailey will be discharged home with no new services when medically cleared. She will follow up with her community providers and plan of care and transport with family. CM will follow and continue to assess for discharge needs. PFS All Active Problems (Updated 06/19/24 @ 17:40 by Eve Barbour NP) Persistent central canal syrinx (Acute) Brain TIA (Acute) Arm numbness left (Acute) Back pain (Acute) UTI (urinary tract infection) (Acute) Migraine (Chronic) Poorly controlled type 1 diabetes mellitus with autonomic neuropathy (Acute) N&V (nausea and vomiting) (Acute) Chronic GERD (Acute) Elevated LFTs (Acute) PAD (peripheral artery disease) (Acute) ADIEL - done at [facility] surgical 01/28/24 Dysphagia (Acute) DKA (diabetic ketoacidosis) (Acute) Hx of tonsillectomy (Chronic) Atherosclerosis of coronary artery without angina pectoris (Acute) Retinopathy due to secondary diabetes mellitus (Acute) Gastroesophageal reflux disease without esophagitis (Acute) Mild intermittent asthma (Acute) Hyperlipemia (Acute) H/O heart artery stent (Chronic) 2 Stents at [facility] 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 of right ear (Acute) Nail dystrophy (Acute) Type 1 diabetes mellitus with diabetic polyneuropathy (Acute) Retinopathy (Acute) Type 1 diabetes mellitus (Acute) Asthma (Chronic) GERD (gastroesophageal reflux disease) (Chronic) CAD (coronary artery disease), [place] coronary artery (Acute) Neurogenic bladder (Acute) IDDM (insulin dependent diabetes mellitus) (Chronic) Nonsustained paroxysmal ventricular tachycardia (Acute) Vitamin D deficiency (Acute) Neuropathy (Acute) Chronic kidney disease, stage I (Acute) Hearing loss (Acute) Blind right eye (Acute) Cellulitis of foot (Acute) Medical History Hypomagnesemia Cancer of cervix Hyperkalemia Visual loss Acute pain in female pelvis Elevated troponin History of deep vein thrombophlebitis of lower extremity Surgical History Hx of LASIK Hx of section At [facility] [place] [facility] 2006 History of partial hysterectomy Family History Father Asthma Diabetes Heart disease Hypertension Maternal Aunt Breast cancer Mother Hypertension Heart disease Maternal Aunt Breast cancer COPD (chronic obstructive pulmonary disease) Maternal Aunt Diabetes Social History Smoking/Tobacco Use Status: Never Second Hand Exposure: Yes Smoking risk assessment performed?: Yes Alcohol Intake: never Drug use: Never Substance use type: does not use Adopted: No Caregiver/Support person: Yes (significant other) Foster care: No Household members: significant other and children Housing: apartment Number of Children: 1 number of grandchildren: 0 Communication Needs: Hard of Hearing and Blind Education Level: high school Do you need help understanding health information?: Often current occupation: Disabled Pets and animals: Yes (1 Cat, 2 Guinea Pigs) Pets and animals: cat(s) and guinea pig(s) Do you think of yourself as: straight/heterosexual Current gender identity: female What is your relationship status?: living with partner How often do you talk on the phone with friends or family?: three or more times per week How often do you get together with friends or relatives?: three or more times per week How often do you attend cheondoism or restoration services?: decline to answer Do you belong to any clubs or organized social groups?: no Panel score (0-1 are the most socially isolated patients): 2 What type of physical activity do you participate in: walking Duration: 15-30 minutes/day Frequency: daily Trina/Druze: None Seatbelt use: always Drive intox or ride w/intox city bus driver: No Do you feel safe at home: Yes Do you feel safe in your relationship?: Yes Female Reproductive History Menstrual Menopause type: surgical History History 14 Para Hx # Term Pregnancies Multiple births Hx # Pregnancies 1 Ectopic pregnancies AB induced Hx Number of Living Children AB spontaneous SDOH(Care Management) Screening Will the Patient Participate in the Screening?: Yes Do you worry about having a steady place to live?: no Problems where you live: no known problems In the past 12 months, have you had to go without electric, gas, oil or water in your home?: no Have you or anyone in your house had to go without enough food to eat?: no Has lack of transportation kept you from medical appointments or from doing things needed for daily living?: no Has anyone in your support network made you feel unsafe for any reason?: no
[2024-06-20] MEDS: Metoprolol CR 25 MG TABCR 12.5 MG PO (09:33)
[2024-06-20] MEDS: Clopidogrel 75 MG TAB PO (09:33)
[2024-06-20] MEDS: Aspirin 81 MG CHEW PO (09:33)
[2024-06-20] MEDS: Multivitamin w/Minerals TAB 1 TAB PO (09:33)
[2024-06-20] MEDS: Magnesium Oxide 400 MG TAB PO (09:33)
[2024-06-20] MEDS: Insulin Glargine 300 UNITS/3 ML PEN 15 UNITS SC (09:34)
[2024-06-20] MEDS: Enoxaparin 40 MG/0.4 ML SYR SC (09:34)
--- NOTE | 2024-06-20 11:35 | PHA.REVIEW2 ---
Pharmacy Admission Review Admission Clinical Review Admission Pharmacy Review: Persistent central canal syrinx (Acute) Brain TIA (Acute) Chronic GERD (Acute) Atherosclerosis of coronary artery without angina pectoris (Acute) Type 1 diabetes mellitus (Acute) No Known Allergies Allergy (Verified 06/19/24 12:50) Resuscitation Status Full Code Height 5 ft 4 in Weight 63.957 kg Comments Comments/Follow Ups: MRI of brain/neck today, if normal then will be discharged home Pharmacy Admission Review Renal Dosing Renal Dosing: BUN 22 mg/dL (7-18) H 06/20/24 06:09 Creatinine 1.0 mg/dL (0.55-1.02) 06/20/24 06:09 Medications needing adjustments: Reviewed (CrCl 67.95 mL/min) List of meds needing interventions: Current medications are okay Anticoagulation Anticoagulation: Hgb 13.2 g/dL (11.2-15.7) 06/20/24 06:09 Hct 38.7 % (36.0-46.0) 06/20/24 06:09 Plt Count 181 10^3/uL (130-400) 06/20/24 06:09 Creatinine 1.0 mg/dL (0.55-1.02) 06/20/24 06:09 DVT Prophylaxis: Reviewed Medications: Enoxaparin (40mg daily) Opiate Usage Evaluate Pain Scale/Pains Meds: Reviewed (oxycodone/APAP q6h PRN - no doses given so far) Scheduled Bowel Reg ordered if on Opiates?: No Relevant Labs Relevant Labs: Sodium 137 mmol/L (136-145) 06/20/24 06:09 Potassium 4.6 mmol/L (3.5-5.1) 06/20/24 06:09 Chloride 101 mmol/L (98-107) 06/20/24 06:09 Magnesium 1.9 mg/dL (1.8-2.4) 06/19/24 13:15 Electrolytes, C-Reactive P, ESR: Reviewed DM Control DM Control: Glucose 286 mg/dL (74-106) H 06/20/24 06:09 Finger Stick Blood Glucose 286 0806 Finger Stick Blood Glucose 258 0733 Finger Stick Blood Glucose 258 0733 DM Control: Reviewed Insulin Dosing, Diabetic Medication: Has order for SS insulin and glargine 15 units daily Cardiac Review Cardiac Review: Blood Pressure 111/55 0725 Blood Pressure 121/58 0445 Blood Pressure 129/56 0100 BP, HR, EF%: Reviewed (HR WNL) List meds needing interventions: Has order for metoprolol XL 12.5mg daily QTc Review QTc: Reviewed (422 from 06/19/24) IV to PO Switch IV Medications: Reviewed Home Meds Home Med List reviewed: Reviewed Relevent Home Meds Not ordered & why?: Jardiance (has order for SS insulin) Current Meds Current Medication Order Review: Intervened Comments: Added IV admission order set Changed timing of pantoprazole from 0830 to 0730 per pharmacy protocol Comments Comments/Follow Ups: MRI of brain/neck today, if normal then will be discharged home
[2024-06-20] MEDS: Gadoterate meglumine 20 ML SYRINGE 13 ML IVP (12:13)
--- NOTE | 2024-06-20 13:35 | NUR.NOTE ---
Documentation reviewed with Patrizia Markham, student CAFETERIA CLERK. Jessica Salvador, MSN, RNC-OB, clinical instructor
--- NOTE | 2024-06-20 13:46 | W.NUTCONSULT ---
Date of service: 06/20/24 Time of Service: 12:30 Nutritional Consult ASSESSMENT: Kailey is 49yo female admitted for TIA rule out - PMH of atherosclerosis of coronary artery without angina, type 1 diabetes, GERD, persistent central canal syrinx. Visited Kailey ( visiting as well) and she states she has been managing type 1 diabetes for about 40 years now. Checks glucose 6 times daily (most of the time wears CGM): fasting, before each meal and before her snacks.
[2024-06-20 15:28] VITALS: BP 86/52; PULSE 85; RESP 16; TEMP 36.8; O2SAT 100
[2024-06-20] MEDS: Acetaminophen 325 MG TAB 650 MG PO (15:36)
[2024-06-20 15:42] VITALS: BP 92/60
--- NOTE | 2024-06-20 16:59 | NUR.NOTE ---
Nursing note: Manual BP 92/60 this afternoon, HR 85. BGFS at dinner 93. 8/10 back pain, tylenol given. Pt asymptomatic. Dr. Vazquez and charge nurse aware. awaiting further orders at this time.
--- NOTE | 2024-06-20 17:58 | W.PM.DS.N ---
Date of service: 06/20/24 Time of Service: 17:58 DS: Diagnosis Discharge Diagnosis (1) Brain TIA: Status: Acute (2) Atherosclerosis of coronary artery without angina pectoris: Status: Acute (3) Type 1 diabetes mellitus: Status: Acute (4) Elevated TSH: Status: Resolved (5) Chronic GERD: Status: Acute (6) Persistent central canal syrinx: Status: Acute Discharge Plan Disposition Patient Disposition: Home Condition: Good Discharge Details Reason For Visit: TIA, Stroke rule out, Right hand weakness Admit Date/Time: 06/19/24 14:51 Admit Provider: Misael Vazquez Attending Provider: Misael Vazquez Primary Care Provider: Karie Lindsey Hospital Course Hospital Course: This is a 49-year-old female who presents to the ED with left upper extremity and left lower extremity numbness For 2 weeks. Patient was seen in the ED and then admitted to the hospital service for workup for a possible CVA versus TIA. Both her CT as well as her MRI/MRA did not indicate a CVA. The MRI did show some cervical canal stenosis at believe most at C5 and C6. Patient's lab work was essentially benign. On the 18th of recommended discharge directions readily agreed. In regards to recommendations would consider doing an echocardiogram at the discretion of her PCP. I am not convinced that there was any sort of neurological event happening during this episode but would also consider following up with neurology at the discretion of her PCP I did not send the patient home on Plavix as a risk-benefit ratio would appear to favor stopping Home Meds and New Rx's Prescriptions: Continued Jardiance 10 mg tablet 10 mg PO DAILY MDD 10 mg 90 Days Qty: 90 4RF Rx Instructions: Take 10 mg tablet once daily in the morning as directed. (DME) Novopen Echo Insulin Pen See Rx Instructions .Route Qty: 1 0RF Rx Instructions: Use as directed, training in person. insulin aspart U-100 [Novolog PenFill U-100 Insulin] 100 unit/mL cartridge 5 unit subcut TID MDD 15 90 Days Qty: 15 12RF Rx Instructions: Inject 5 units or amount directed by sliding scale subcutaneously with meals. albuterol sulfate 90 mcg/actuation HFA aerosol inhaler 2 puff inhalation Q6H PRN (Reason: shortness of breath or wheezing) Qty: 8.5 1RF pantoprazole [Protonix] 40 mg tablet,delayed release (DR/EC) 40 mg PO DAILY Qty: 30 12RF (DME) Ketostix Strip See Rx Instructions .Route Rx Instructions: As directed aspirin [Children's Aspirin] 81 mg tablet,chewable 81 mg PO DAILY metoprolol succinate 25 mg tablet extended release 24 hr 12.5 mg PO DAILY Qty: 90 0RF multivitamin with folic acid [Tab-A-Aaron] 400 mcg tablet 1 tab PO DAILY Patient Comments: TAKE ONE TABLET BY MOUTH EVERY DAY Fiasp FlexTouch U-100 Insulin 100 unit/mL (3 mL) insulin pen 1 sliding scale dose SUBCUT AC Patient Comments: INJECT BASED ON CARBS WITH MEALS AND SNACKS RATIO 1:10G AND COREECT FOR BG GREATER THAN 150 BASED ON ISF 1:25 MAX DAILY DOSE 50 UNITS atorvastatin 80 mg tablet 80 mg PO DAILY Patient Comments: Take 1 tablet by mouth every evening insulin glargine [Basaglar KwikPen U-100 Insulin] 100 unit/mL (3 mL) insulin pen 20 unit SUBCUT DAILY Patient Comments: INJECT 22 UNITS UNDER THE SKIN EVERY MORNING magnesium oxide 400 mg (241.3 mg magnesium) tablet 400 mg PO DAILY Qty: 14 0RF oxycodone-acetaminophen [Percocet] 5-325 mg tablet 1 tab PO Q6H PRNQty: 10 0RF Discharge Instructions Activity:: Activity as Tolerated Equipment/Supplies:: No Equipment Needed Diet:: As Tolerated Discharge Orders Discharge Orders: Discharge Order (Routine); Ordered 06/20/24 Ordered By: Misael Vazquez DS: Summary Time Spent with Patient providing and/or coordinating discharge services: Greater than 30 minutes Status at Discharge Functional status at discharge: independent ambulation Overall status at discharge: patient is back to baseline Mental Status: mental status grossly normal Speech and Movement: speech and movement normal Mood: congruent mood Affect: normal affect Quality:SDOH Health Related Social Needs: No Data to Display Exam Narrative Exam Narrative: Chronically ill-appearing female older than stated age normal body habitus. Head is atraumatic eyes nonicteric noninjected facial features symmetrical smile symmetrical. Oral mucosa is moist no exudate poor dentition neck is supple full range of motion no JVD cardiovascular regular rate and rhythm respirations even and unlabored abdomen benign she moves all extremities equally I appreciate no weakness. Cranial nerves II through XII grossly intact able to perform [id number] equally bilaterally with no ataxia. Gait not tested good bilateral lower extremity strength equal. Neurologic she is awake alert oriented good historian. Psychiatric appropriate mood and affect Const General: no acute distress Orientation: alert HENUT Head: normal to inspection Ears: external ears normal General nose exam: external nose normal Mouth: moist mucous membranes Resp Effort & Inspection: normal respiratory effort and able to speak in complete sentences Cardio Rate: regular rate Skin General skin exam: no rashes or lesions noted Neuro General: patient alert, patient oriented x3 and CN's II-XI intact bilaterally Cognition: normal cognition Extrem General: normal to inspection Psych Mental Status: mental status grossly normal Speech and Movement: speech and movement normal Mood: congruent mood Affect: normal affect DS: Data Vitals/I&O Vitals and I&O: Vital Signs Temperature 36.8 C 06/20/24 15:28 Temperature Source Temporal Artery Scan 06/20/24 15:28 Pulse 85 06/20/24 15:28 Pulse Rhythm Irregular 06/19/24 16:00 Pulse 77 06/19/24 15:01 Respiratory Rate 16 06/20/24 15:28 Respiratory Effort Normal 06/19/24 16:00 Respiratory Depth Normal 06/19/24 16:00 Respiratory Pattern Normal 06/19/24 16:00 Blood Pressure 92/60 L 06/20/24 15:42 Blood Pressure Mean 66 06/19/24 15:01 Pulse Oximetry 100 06/20/24 15:28 Oxygen Delivery Method Room Air 06/20/24 15:28 Oxygen Flow Rate 0 06/20/24 15:28 Pain Level 8 06/20/24 15:28 Comment RN notified. Patient c/o pain level 8 in her back. 06/20/24 15:28 Intake & Output 06/19/24 06/20/24 06/20/24 23:59 11:59 23:59 Intake Total 1250 / 1250 Output Total 1900 / 1900 1400 / 2200 800 / 2200 Balance -1900 / -1900 -150 / -950 -800 / -950 Weight 63.957 kg Intake: Oral 1250 / 1250 Output: Urine 1900 / 1900 1400 / 2200 800 / 2200 Other: Urine Color Yellow Pale Straw Yellow Urine Appearance Clear Clear Clear Cloudy Urine Odor None None None Data Completed and Pending Labs on day of discharge: Labs from last 24 hours 06/20/24 06:09 WBC 5.42 RBC 4.22 Hgb 13.2 Hct 38.7 MCV 92 MCH 31.3 MCHC 34.1 RDW 12.6 Plt Count 181 MPV 9.6 Immature Gran % 0.2 Neutrophils % 71.1 Lymphocytes % 16.8 Monocytes % 10.3 Eosinophils % 0.9 Basophils % 0.7 Nucleated RBC % 0.0 Absolute Neutrophils 3.85 Absolute Lymphocytes 0.91 L Absolute Monocytes 0.56 Absolute Eosinophils 0.05 Absolute Basophils 0.04 Sodium 137 Potassium 4.6 Chloride 101 Carbon Dioxide 29.1 Anion Gap 6.9 BUN 22 H Creatinine 1.0 Est GFR (CKD-EPI 2020) 68.63 Glucose 286 H Calcium 9.4 PFSH All Active Problems (Updated 06/19/24 @ 17:40 by Eve Barbour NP) Persistent central canal syrinx (Acute) Brain TIA (Acute) Arm numbness left (Acute) Back pain (Acute) UTI (urinary tract infection) (Acute) Migraine (Chronic) Poorly controlled type 1 diabetes mellitus with autonomic neuropathy (Acute) N&V (nausea and vomiting) (Acute) Chronic GERD (Acute) Elevated LFTs (Acute) PAD (peripheral artery disease) (Acute) ADIEL - done at [facility] surgical 01/28/24 Dysphagia (Acute) DKA (diabetic ketoacidosis) (Acute) Hx of tonsillectomy (Chronic) Atherosclerosis of coronary artery without angina pectoris (Acute) Retinopathy due to secondary diabetes mellitus (Acute) Gastroesophageal reflux disease without esophagitis (Acute) Mild intermittent asthma (Acute) Hyperlipemia (Acute) H/O heart artery stent (Chronic) 2 Stents at [facility] 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 of right ear (Acute) Nail dystrophy (Acute) Type 1 diabetes mellitus with diabetic polyneuropathy (Acute) Retinopathy (Acute) Type 1 diabetes mellitus (Acute) Asthma (Chronic) GERD (gastroesophageal reflux disease) (Chronic) CAD (coronary artery disease), cabazon coronary artery (Acute) Neurogenic bladder (Acute) IDDM (insulin dependent diabetes mellitus) (Chronic) Nonsustained paroxysmal ventricular tachycardia (Acute) Vitamin D deficiency (Acute) Neuropathy (Acute) Chronic kidney disease, stage I (Acute) Hearing loss (Acute) Blind right eye (Acute) Cellulitis of foot (Acute) Medical History Hypomagnesemia Cancer of cervix Hyperkalemia Visual loss Acute pain in female pelvis Elevated troponin History of deep vein thrombophlebitis of lower extremity Surgical History Hx of LASIK Hx of section At [facility] 2007 History of partial hysterectomy Family History Father Asthma Diabetes Heart disease Hypertension Maternal Aunt Breast cancer Mother Hypertension Heart disease Maternal Aunt Breast cancer COPD (chronic obstructive pulmonary disease) Maternal Aunt Diabetes Social History Smoking/Tobacco Use Status: Never Second Hand Exposure: Yes Smoking risk assessment performed?: Yes Alcohol Intake: never Drug use: Never Substance use type: does not use Adopted: No Caregiver/Support person: Yes (significant other) Foster care: No Household members: significant other and children Housing: apartment Number of Children: 1 number of grandchildren: 0 Communication Needs: Hard of Hearing and Blind Education Level: high school Do you need help understanding health information?: Often current occupation: Disabled Pets and animals: Yes (1 Cat, 2 Guinea Pigs) Pets and animals: cat(s) and guinea pig(s) Do you think of yourself as: straight/heterosexual Current gender identity: female What is your relationship status?: living with partner How often do you talk on the phone with friends or family?: three or more times per week How often do you get together with friends or relatives?: three or more times per week How often do you attend hinduism or oriental orthodox services?: decline to answer Do you belong to any clubs or organized social groups?: no Panel score (0-1 are the most socially isolated patients): 2 What type of physical activity do you participate in: walking Duration: 15-30 minutes/day Frequency: daily Trina/Sikh: None Seatbelt use: always Drive intox or ride w/intox truck driver salesperson: No Do you feel safe at home: Yes Do you feel safe in your relationship?: Yes Female Reproductive History Menstrual Menopause type: surgical History History 13 Para Hx # Term Pregnancies Multiple births Hx # Pregnancies 1 Ectopic pregnancies AB induced Hx Number of Living Children AB spontaneous Time Spent with Patient Time Spent with Patient: 45-69 minutes Time was spent: preparing to see the patient(eg.review tests), obtaining and/or reviewing separately otained hiistory, ordering medications,tests, procedures, referring, communicating with other health care transitions nurse, indepentently interpreting results, counseling the patient and care coordination
--- NOTE | 2024-06-21 09:51 | PT.INNT ---
PT Notes Visit Reasons: TIA, Stroke rule out, Right hand weakness MD order for PT Consult sent on 06/20/2024 at 1618 non urgent then pt was discharged home at 1809 on 06/21/2024 prior to evaluation being completed.
== END 2024-06-20 18:23 | disposition home or self-care (01) ==
LOC: ER 15:10 → MS 15:38
PROVIDERS: Nurse Practitioner Acute Care; Admitting Provider Hospitalist; Emergency Provider Emergency Medicine; PCP Nurse Practitioner; Visit Provider Hospitalist
DX: G45.9 Transient cerebral ischemic attack, unspecified (principal); E10.65 Type 1 diabetes mellitus with hyperglycemia; R53.1 Weakness; R20.2 Paresthesia of skin; G95.0 Syringomyelia and syringobulbia; M48.02 Spinal stenosis, cervical region; Z79.84 Long term (current) use of oral hypoglycemic drugs; Z79.4 Long term (current) use of insulin; M54.9 Dorsalgia, unspecified; G43.809 Other migraine, not intractable, without status migrainosus; E10.42 Type 1 diabetes mellitus with diabetic polyneuropathy; I73.9 Peripheral vascular disease, unspecified; K21.9 Gastro-esophageal reflux disease without esophagitis; I25.10 Atherosclerotic heart disease of native coronary artery without angina pectoris; J45.20 Mild intermittent asthma, uncomplicated; E78.5 Hyperlipidemia, unspecified; Z95.5 Presence of coronary angioplasty implant and graft; N31.9 Neuromuscular dysfunction of bladder, unspecified
CPT/HCPCS: 00123; 36415; 36416; 70496; 70498; 80048; 80053; 80307; 82805; 82962; 93005; 96372; 99285; J1650; 70551; 72156; 80320; 81003; 83735; 85025; 93010; 99222; 99239; J1815; J3490

== ENCOUNTER → 2024-07-07 09:23 | Outpatient (BNVA) | payer MEDICARE, MEDICAID, SELFPAY | PROVIDERS: PCP Nurse Practitioner; Visit Provider Internal Medicine Cardiovascular Disease | DX: I25.10 Atherosclerotic heart disease of native coronary artery without angina pectoris (principal) | CPT/HCPCS: 99214 ==

== ENCOUNTER → 2024-10-10 07:48 | Outpatient (BNVA) | payer MEDICARE, MEDICAID, SELFPAY | PROVIDERS: PCP Nurse Practitioner; Referring Provider Nurse Practitioner; Visit Provider Podiatrist | DX: I73.89 Other specified peripheral vascular diseases (principal); L60.3 Nail dystrophy; E10.42 Type 1 diabetes mellitus with diabetic polyneuropathy; N18.1 Chronic kidney disease, stage 1; B35.1 Tinea unguium; Z86.73 Personal history of transient ischemic attack (TIA), and cerebral infarction without residual deficits; R09.89 Other specified symptoms and signs involving the circulatory and respiratory systems; R60.0 Localized edema; R20.8 Other disturbances of skin sensation; L60.8 Other nail disorders; L53.8 Other specified erythematous conditions; R23.8 Other skin changes; L65.9 Nonscarring hair loss, unspecified; L60.2 Onychogryphosis | CPT/HCPCS: 11721 ==

== ENCOUNTER 2024-10-13 01:18 | Outpatient (CLI) | payer MEDICARE, MEDICAID, SELFPAY ==
--- NOTE | 2024-10-13 | DI.MRI_ITS ---
Exam(s) MR CERVICAL SPINE WO/W EXAM: MR CERVICAL SPINE WO/W CLINICAL HISTORY: SYRINX SPINAL CORD, G95.0, CERVICAL SPONDYLOSIS WITH STENOSIS TECHNIQUE: Multiplanar multisequence MRI of the cervical spine was performed. CONTRAST MATERIAL: IV Contrast: 12 ML of Dotarem contrast administered. COMPARISON: MR MR CERVICAL SPINE WO/W from 06/20/2024 MR MR THORACIC SPINE WO/W from 10/13/2024 FINDINGS: BONES: Vertebral body heights are maintained. There is again seen partial fusion of the C4 and C5 jade tebral bodies. There is mild reversal of the normal cervical lordosis centered at C4-C5. Bone marrow signal intensity is within normal limits. CERVICAL CORD: Craniovertebral junction is unremarkable. The cervical cord is normal size and signal intensity. No lesion is present. SOFT TISSUES: Unremarkable. ENHANCEMENT: No suspicious enhancement identified. C2-3: No disc herniation or bulge is identified. No significant central spinal canal or neural forami nal stenosis. C3-4: No disc herniation or bulge is identified. No significant central spinal canal or neural forami nal stenosis C4-5: No disc herniation or bulge is identified. No significant central spinal canal or neural forami nal stenosis C5-6: There is prominence of the osteophyte disc complex narrowing the AP diameter of the central spi nal canal to 6 mm. There is some flattening of the anterior aspect of the spinal cord. There is nor mal signal in the spinal cord. There is mild narrowing of the right neural foramen. No significant left neural foraminal stenosis is seen. C6-7: There is mild prominence of the osteophyte disc complex. The AP diameter of the central spinal canal is narrowed to 6 mm. There is normal signal in the cord. No significant neural foraminal patricio nosis is seen. C7-T1: No disc herniation or bulge is identified. No significant central spinal canal or neural melany inal stenosis IMPRESSION: 1. There is no evidence of a syrinx in the cervical spinal cord. No evidence of tonsillar ectopia/Ch iari 1 malformation. 2. Degenerative changes at C5-6 and C6-7 causing central spinal canal stenosis with AP diameter of ap proximately 6 mm. 3. There is normal signal in the spinal cord. 4. Right neural foraminal stenosis is seen at C5-C6. 5. No abnormal enhancement is seen. No evidence of an enhancing lesion. DATA REPOSITORY:
--- NOTE | 2024-10-13 | DI.MRI_ITS ---
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 TECHNIQUE: Multiplanar multisequence MRI of the Thoracic spine was performed. CONTRAST MATERIAL: IV Contrast: 12 mL of Dotarem contrast administered. COMPARISON: MR MR THORACIC SPINE WO/W from 06/17/2024 MR MR CERVICAL SPINE WO/W from 06/20/2024 FINDINGS: Bones: The vertebral body heights are well maintained. Alignment is satisfactory. The signal characte ristics are unremarkable. Cord: There is again seen a syrinx extending from approximately T2 through T6. It is unchanged oziel red to the prior examination. The rest of the cord is unremarkable with normal signal. Discs: No disc herniation or bulge is present. Soft tissues: Normal. There is no evidence of suspicious enhancement. 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 DATA REPOSITORY:
--- NOTE | 2024-10-13 | DI.MRI_ITS ---
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 CONTRAST MATERIAL: IV Contrast: 12 mL of Dotarem contrast administered. COMPARISON: MR MR BRAIN WO from 06/20/2024 FINDINGS: VENTRICLES AND EXTRA AXIAL SPACES: Normal in size and morphology for the patient's age. HEMORRHAGE: None. CEREBRAL PARENCHYMA: No focus of restricted diffusion to suggest acute infarct. No space-occupying le marysol identified. MIDLINE SHIFT: None. BRAINSTEM/CEREBELLUM: Normal. CALVARIUM: Normal. ENHANCEMENT: No suspicious enhancement identified. VISUALIZED PARANASAL SINUSES/MASTOIDS: Clear. [place]: Normal flow void. PIT[place]: Unremarkable. OTHER FINDINGS: IMPRESSION: Unremarkable MRI of the brain. DATA REPOSITORY:
[2024-10-13] MEDS: Normal Saline Flush 10 ML SYR IVP (12:11)
[2024-10-13] MEDS: Gadoterate meglumine 20 ML SYRINGE 12 ML IVP (12:11)
--- NOTE | 2024-10-13 14:11 | DI.RAD_ITS ---
Exam(s) XR CERVICAL SP COMP W FLEX/EXT EXAM: XR CERVICAL SP COMP W FLEX/EXT CLINICAL HISTORY: CERVICAL SPINAL STENOSIS, M48.02. TECHNIQUE: 2D digital imaging was performed. COMPARISON: MR MR CERVICAL SPINE WO/W from 10/13/2024 FINDINGS: Eight views: There is no evidence of fracture. There is no offset of the spinal laminar line. There is mild reve rsal of the normal curvature which is due to fusion of the C4 and C5 anterior vertebral bodies. The posterior osseous elements at this level are not fused. There is no offset of the spinal laminar loni e. The disc space at this level (C4-5) is developmentally smaller than the other levels. There is n o narrowing of the other disc levels. The left transverse process of C7 is slightly prominent Flexion and extension lateral views do not reveal significant listhesis. Oblique images reveal nicely patent neural foramina bilaterally at all levels. There are no signific ant Luschka joint osteophytes nor other type of osseous encroachment upon the exiting neural foramina in the cervical spinal column. Bone density is normal. There are no osseous lesions. 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 The facet joints at this level are not fused. All other disc spaces exhibit normal height. Slightly prominent left transverse process at the C7 level. DATA REPOSITORY: RADIATION DOSE DELIVERED:
== END 2024-10-13 01:38 ==
LOC: DI 01:19
PROVIDERS: PCP Nurse Practitioner; Visit Provider Physician Assistant Surgical
DX: M48.02 Spinal stenosis, cervical region (principal); G95.0 Syringomyelia and syringobulbia
CPT/HCPCS: 70553; 72052; 72156; 72157

== ENCOUNTER 2024-10-28 07:07 | Outpatient (CLI) | payer MEDICARE, MEDICAID, SELFPAY ==
[2024-10-28 08:05] LABS: ALT 45 U/L (14-59); AST 37 U/L (15-37); Albumin 3.9 g/dL (3.4-5.0); Alkaline Phosphatase 115 U/L (46-116); Anion Gap 6.6 mmol/L (3-11); BUN 20 mg/dL (7-18); Bilirubin, Total 0.5 mg/dL (0.2-1.0); CO2 32.4 mmol/L (21.0-32.0); Calcium 9.7 mg/dL (8.5-10.1); Calculated LDL 72 mg/dL (<100); Chloride 105 mmol/L (98-107); Cholesterol 152 mg/dL (<200); Estimated GFR 68.63 (mL/min/1.73m2); Glucose 216 mg/dL (74-106); HDL Cholesterol 70 mg/dL (>or=50); Potassium 4.9 mmol/L (3.5-5.1); Sodium 144 mmol/L (136-145); Total Protein 7.8 g/dL (6.4-8.2); Triglyceride 53 mg/dL (<150)
== END 2024-10-28 07:08 | disposition home or self-care (01) ==
LOC: LBO 07:07
PROVIDERS: PCP Nurse Practitioner; Visit Provider Nurse Practitioner
DX: E10.65 Type 1 diabetes mellitus with hyperglycemia; E78.5 Hyperlipidemia, unspecified
CPT/HCPCS: 36415; 80053; 80061

== ENCOUNTER → 2025-01-06 09:42 | Outpatient (BNVA) | payer MEDICARE, MEDICAID, SELFPAY | PROVIDERS: PCP Nurse Practitioner; Referring Provider Nurse Practitioner; Visit Provider Internal Medicine Cardiovascular Disease | DX: I25.10 Atherosclerotic heart disease of native coronary artery without angina pectoris (principal) | CPT/HCPCS: 99213 ==

== ENCOUNTER 2025-01-30 01:24 | Outpatient (CLI) | payer MEDICARE, MEDICAID, SELFPAY ==
--- NOTE | 2025-01-30 08:00 | DI.MAMMO_ITS ---
Exam(s) MAMMO SCREENING EXAM: MAMMO SCREENING CLINICAL HISTORY: screening,z12.39 TECHNIQUE: Mammograms were interpreted according to the usual protocol including computer analysis with CAD system, tomosynthesis and C-view imaging. COMPARISON: Baseline examination. FINDINGS: The breasts are composed of heterogeneously dense fibroglandular densities, Breast Density category C. No suspicious masses are seen. In the central left breast, there is a is a cluster of calcifications. Spot magnification CC and mL views recommended. No calcifications are seen in the left breast. No skin thickening or abnormal axillary lymph nodes are seen. IMPRESSION: BI-RADS Category 0 - Incomplete: Need additional imaging evaluation Breast Density: Category C - The breasts are heterogeneously dense, which may obscure small masses. Breast density Category C or D implies that the patient has dense breast tissue. Dense breast tissue can make it harder to find cancer on a mammogram. Dense breast tissue is also associated with an increased risk of breast cancer. This information about the result of the mammogram report was provided to the patient to raise their awareness. Use this report when you speak with the patient about their risks for breast cancer, which includes their family history. At that time, you may recommend additional screening tests (Ultrasound or MRI) as these tests may add significant information. A negative radiographic report should not delay biopsy if a dominant or clinically suspicious mass is present. Up to ten percent of cancers are not identified on mammography. A negative report may reinforce clinical impression. Adenosis and dense breasts may obscure an underlying neoplasm. False positive reports average 6 to 10%.
== END 2025-01-30 01:44 ==
LOC: DI 01:24
PROVIDERS: PCP Nurse Practitioner; Visit Provider Nurse Practitioner
DX: Z12.31 Encounter for screening mammogram for malignant neoplasm of breast (principal); R92.333 Mammographic heterogeneous density, bilateral breasts
CPT/HCPCS: 77063; 77067

== ENCOUNTER 2025-02-06 02:58 | Outpatient (CLI) | payer MEDICARE, MEDICAID, SELFPAY ==
--- NOTE | 2025-02-06 | DI.MAMMO_ITS ---
Exam(s) MG MAMMO SCREEN CALL BACK UNI EXAM: MG MAMMO SCREEN CALL BACK UNI -LEFT CLINICAL HISTORY: F/U MAMMO, IN CENTRAL LT BREAST CLUSTER CALCIFICATIONS. TECHNIQUE: Unilateral 2D spot mammographic images obtained USING COMPUTER-AIDED DETECTION CAD COMPARISON: Prior remote outside mammogram 2013 from after was reviewed FINDINGS: DIAGNOSTIC MAMMOGRAM: The left breast microcalcification group has significantly increased in size from the mammogram of 2013. Stereotactic biopsy is recommended. IMPRESSION: 1. Left breast microcalcification group as described on the recent screening mammogram in the central left breast requires stereotactic biopsy. The patient and her were informed of these findings and recommendations by myself prior to leaving the department today. Report and recommendations called by myself to provider Brandie Yousif who is covering for the referring physician which was Dr. Karie Lindsey 02/06/2025 at 3 p.m. BI-RADS Category 4 - Suspicious Abnormality: Biopsy should be considered Breast Density - Category C - The breast are heterogeneously dense, which may obscure small masses. Breast density Category C or D implies that the patient has dense breast tissue. Dense breast tissue can make it harder to find cancer on a mammogram. Dense breast tissue is also associated with an increased risk of breast cancer. This information about the result of the mammogram report was provided to the patient to raise their awareness. Use this report when you speak with the patient about their risks for breast cancer, which includes their family history. At that time, you may recommend additional screening tests (Ultrasound or MRI) as these tests may add significant information. A negative radiographic report should not delay biopsy if a dominant or clinically suspicious mass is present. Up to ten percent of cancers are not identified on mammography. A negative report may reinforce clinical impression. Adenosis and dense breasts may obscure an underlying neoplasm. False positive reports average 6 to 10%. Patient will receive a letter notifying them of these results.
== END 2025-02-06 03:18 ==
LOC: DI 02:58
PROVIDERS: PCP Nurse Practitioner; Visit Provider Nurse Practitioner
DX: Z12.31 Encounter for screening mammogram for malignant neoplasm of breast (principal); R92.333 Mammographic heterogeneous density, bilateral breasts
CPT/HCPCS: 77063; 77067

== ENCOUNTER 2025-02-12 03:59 | Emergency (ER) | payer MEDICARE, MEDICAID, SELFPAY ==
[2025-02-12] VITALS (26 sets, daily range): BP systolic 90–115; BP diastolic 51–65; PULSE 71–83; RESP 12–22; TEMP 36.3; O2SAT 98–100
--- NOTE | 2025-02-12 04:00 | RT.EKG_ITS ---
APPROVED REPORT Exam: Resting ECG Reason for Exam: arm pain Patient Location: E HR:81 bpm ECG Measurements Heart Rate 81 AXIS TN 139 P 111 QRSd 107 QRS -5 QT 365 T 57 QTc 424 Conclusion Sinus rhythm...normal P axis, V-rate 60- 99 Incomplete RBBB and LAFB...axis(240,-40), S>R II III aVF no ST segment or T wave abnormalitites to suggest occlusive MT
[2025-02-12] MEDS: Aspirin 81 MG CHEW 324 MG CH (04:12)
--- NOTE | 2025-02-12 04:15 | DI.CT_ITS ---
Exam(s) CT CHEST PE CTA EXAM: CT CHEST PE CTA CLINICAL HISTORY: chest pain. TECHNIQUE: Imaging Protocol: Axial CT angiography was performed with multi- slice acquisition and multi-planar reconstructions as well as axial, coronal and sagittal MIP reconstructions. Computer aided detection (CAD) was utilized. CONTRAST MATERIAL: Intravenous: Omnipaque 350 Contrast volume:60 ml COMPARISON: CT CT CHEST PE CTA from 07/05/2023 CR RF BARIUM SWALLOW from 04/13/2024 FINDINGS: Pulmonary Arteries: No evidence of filling defect to suggest pulmonary emboli. Mediastinum and Petra: No dominant adenopathy or fluid collection. Pulmonary parenchyma: No consolidation or dominant measurable mass. Pleura: No effusion or pneumothorax. Heart: The heart is not dilated. Coronary artery calcifications and coronary artery stent. Aorta: Thoracic aorta non-dilated. No dissection. Upper abdomen: No acute findings. Bones: No lytic or blastic lesions. Subacute or old fracture at the distal and of the right 8th rib. Tubes, Catheters, and Lines: None Soft tissues: Unremarkable. IMPRESSION: No evidence of pulmonary embolism or other acute abnormality. The preliminary [facility] report was reviewed. RADIATION DOSE DELIVERED: Total DLP DATA REPOSITORY: All CT scans at this facility are submitted to the National Radiology Data Registry (NRDR) Dose Index Registry (DIR) with the [employer] (A[employer]). RADIATION OPTIMIZATION: All CT scans at this facility use at least one of these dose optimization techniques: automated exposure control; mA and/or kV adjustment per patient size (includes targeted exams where dose is matched to clinical indication); or iterative reconstruction.
--- NOTE | 2025-02-12 04:20 | W.ED.GENAD ---
Discharge Plan Disposition Patient Disposition: Home Condition: Good Discharge Details Clinical Impression: Arm pain Primary Care Provider: Karie Lindsey ED Provider: Colette Angeles Home Meds and New Rx's Prescriptions: Continued omeprazole 40 mg capsule,delayed release(DR/EC) 40 mg PO DAILY Qty: 90 3RF (DME) Novopen Echo Insulin Pen See Rx Instructions .Route Qty: 1 0RF Rx Instructions: Use as directed, training in person. insulin aspart U-100 [Novolog PenFill U-100 Insulin] 100 unit/mL cartridge 5 unit subcut TID MDD 15 90 Days Qty: 15 12RF Rx Instructions: Inject 5 units or amount directed by sliding scale subcutaneously with meals. albuterol sulfate 90 mcg/actuation HFA aerosol inhaler 2 puff inhalation Q6H PRN (Reason: shortness of breath or wheezing) Qty: 8.5 1RF magnesium oxide 400 mg (241.3 mg magnesium) tablet 400 mg PO DAILY Qty: 90 3RF (DME) Ketostix Strip See Rx Instructions .Route Rx Instructions: As directed atorvastatin 80 mg tablet 80 mg PO DAILY Qty: 90 3RF multivitamin with folic acid [Tab-A-Aaron] 400 mcg tablet 1 tab PO DAILY Patient Comments: TAKE ONE TABLET BY MOUTH EVERY DAY Fiasp FlexTouch U-100 Insulin 100 unit/mL (3 mL) insulin pen 1 sliding scale dose SUBCUT AC Patient Comments: INJECT BASED ON CARBS WITH MEALS AND SNACKS RATIO 1:10G AND COREECT FOR BG GREATER THAN 150 BASED ON ISF 1:25 MAX DAILY DOSE 50 UNITS insulin glargine [Basaglar KwikPen U-100 Insulin] 100 unit/mL (3 mL) insulin pen 20 unit SUBCUT DAILY Patient Comments: INJECT 22 UNITS UNDER THE SKIN EVERY MORNING Discharge Instructions Instructions: Managing acute pain at home Additional Instructions: Tylenol over boyd counter for pain; follow the directions on the bottle. Call your primary care doctor in the morning to schedule an appointment for within the next 72 hours to followup on your visit here. Call your solar electric practitioner in the morning to schedule an appointment to followup on your visit. Return to the emergency department for new or worsening symptoms including new/different/worse pain, difficulty breathing, numbness or weakness in your arm, or if you have any other concerns. HPI General Mode of arrival: EMS. Date/Time Provider Initiated Documentation: 02/12/25 04:03. Limitations to Documentation: no limitations. Information obtained by: patient and old records reviewed. 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 Woke at 0300 with pain radiating down her whole left arm. Shortly thereafter began to have dull chest pain as well. Chest pain is mostly gone but arm pain persists, unrelieved by home ibuprofen. No numbness, tingling, or weakness to left arm. No back pain. No shortness of breath or lightheadness. She is otherwise in her usual state of health with no fevers, chills, rash, nausea, vomiting, abdominal pain, or other concerns. Related Data Home Medications ?Medication ?Instructions ?Recorded ?Confirmed acetone (urine) test (Ketostix 01/29/22 02/10/25 strips) insulin glargine 100 unit/mL (3 20 unit subcut DAILY 02/22/22 02/12/25 mL) subcutaneous pen (Basaglar KwikPen U-100 Insulin) insulin aspart 1 sliding scale dose subcut AC 03/18/24 02/12/25 (niacinamide)(U-100) 100 unit/mL(3 mL) subcutaneous pen (Fiasp FlexTouch U-100 Insulin) multivitamin with folic acid 400 1 tab PO DAILY 03/18/24 02/12/25 mcg tablet (Tab-A-Aaron) albuterol sulfate 90 mcg/actuation 2 puff inhalation Q6H PRN 03/24/24 02/12/25 aerosol inhaler shortness of breath or wheezing #8.5 grams insulin admin supplies (Novopen #1 ea 03/25/24 02/10/25 Echo subcutaneous) insulin aspart U-100 100 unit/mL 5 unit (0.05 mL) subcut TID 90 03/25/24 02/12/25 subcutaneous cartridge (Novolog days #15 mL PenFill U-100 Insulin aspart) omeprazole 40 mg capsule,delayed 40 mg PO DAILY #90 caps 08/30/24 02/12/25 release magnesium oxide 400 mg (241.3 mg 400 mg PO DAILY #90 tabs 11/29/24 02/12/25 magnesium) tablet atorvastatin 80 mg tablet 80 mg PO DAILY #90 tabs 01/03/25 02/12/25 Previous Rx's ?Medication ?Instructions ?Recorded albuterol sulfate 90 mcg/actuation 2 puff inhalation Q6H PRN 03/24/24 aerosol inhaler shortness of breath or wheezing #8.5 grams insulin admin supplies (Novopen #1 ea 03/25/24 Echo subcutaneous) insulin aspart U-100 100 unit/mL 5 unit (0.05 mL) subcut TID 90 03/25/24 subcutaneous cartridge (Novolog days #15 mL PenFill U-100 Insulin aspart) omeprazole 40 mg capsule,delayed 40 mg PO DAILY #90 caps 08/30/24 release magnesium oxide 400 mg (241.3 mg 400 mg PO DAILY #90 tabs 11/29/24 magnesium) tablet atorvastatin 80 mg tablet 80 mg PO DAILY #90 tabs 01/03/25 Allergies Allergy/AdvReac Type Severity Reaction Status Date / Time No Known Allergies Allergy Verified 02/12/25 04:07 General Stated Complaint: GenMedical MITCHELL: 3 Review of Systems Narrative: see HPI Exam Narrative Exam Narrative: General: Alert, well appearing, well nourished, in no acute distress. Head: Normocephalic, atraumatic Neck: Trachea midline, ?Neck supple. ENT: ?MMM.? Cardiac: ?RRR, no murmurs appreciated Resp: No respiratory distress. CTAB. Abd: ?Soft, non-distended, nontender : ?No suprapubic tenderness. No CVA tenderness. Extremities: ?No deformities.? No peripheral edema. Left arm diffusely TTP from shoulder to wrist, no focal bony tenderness. No pain with ROM at shoulder, elbow, or wrist. Sensation intact throughout LUE. Good radial pulse. Neurologic: GCS 15. ? 5/5 strength symmetric bilateral upper extremities. Sensation intact to light touch and symmetric multiple dermatomes bilateral upper extremities. 2+ biceps and triceps reflexes symmetric bilaterally. Course Vital Signs Vital signs: Vital Signs Temperature 36.3 C L 02/12/25 04:00 Pulse 83 02/12/25 04:00 Respiratory Rate 18 02/12/25 04:00 Blood Pressure 115/59 L 02/12/25 04:00 Pulse Oximetry 98 02/12/25 04:00 Temperature 36.3 C L 02/12/25 04:00 Temperature Source Oral 02/12/25 04:00 Pulse 83 02/12/25 04:00 Respiratory Rate 18 02/12/25 04:00 Respiratory Effort Normal, Non-Labored 02/12/25 04:05 Blood Pressure 115/59 L 02/12/25 04:00 Pulse Oximetry 98 02/12/25 04:00 Pain Level 5 02/12/25 04:00 Medical Decision Making 49yo F with hx DM, CKD, CAD, [place] in 2021 with multiple stents placed to the RCA with residual disease in an OM 2 70% stenosis (last saw cardiology 02/10/25), cervical myeloradiculopathy with radiating left arm pain (saw [facility] neurosurgery 11/02/24) presenting via EMS with left arm onset at 0300 this morning. Associated chest pain which has since resolved. Vital signs reassuring on arrival. On exam she is diffusely TTP of her left arm with no focal bony tenderness. No hx of trauma, not concerning for fracture or dislocation. Normal neurologic exam. Maybe MSK in nature but pt is high risk in may regards. Will treat for possible ACS with 325 of ASA while pending results of workup. -EKG NSR, appropriate intervals, no ST segment or T wave abnormalities to suggest occlusive [place] -Labs reviewed as below, CBC reassuring with no leukocytosis or anemia, CMP with no actionable abnormalities, Mg normal, lipase not suggestive of pancreatitis, coags normal, BNP not suggestive of heart failure, initial troponin 7 with one hour repeat 6 (would not further pursue ACS/trend troponins/admit) -CTA independently reviewed; no saddle embolus or pneumonia or pneumothorax on my view, radiology read with subacute right sided rib fractures (pt reports she was aware of these). With reassuring workup, will add tylenol and toradol for pain. On reassessment patient reports pain is much improved. Requests discharge home which is reasonable. Discharged; discharge instructions and return precautions were reviewed with patient who verbalized understanding. All questions were answered and she is in full agreement with the plan. Medical Records Medical records reviewed: Yes I reviewed the patient's medical records. Imaging Data Radiologic Study: Imaging: CT Scan Radiologist's impression: IMPRESSION: Subacute fracture through the anterolateral aspect of the right 8th rib with bony callus formation but incomplete bony union, images 55-56 of series 4 and 23 of series 8. Subtle sclerotic foci along the anterolateral aspect of the right 2nd, 3rd, and 4th ribs suspicious for incompletely healed incomplete rib fractures. Lab Data Lab results reviewed: Yes I reviewed the patient's lab results. Labs: Laboratory Tests Range/Units 02/12/25 02/12/25 02/12/25 04:03 04:06 05:29 WBC (4.4-10.8) 10^3/uL 4.41 RBC (3.93-5.22) 10^6/uL 4.31 Hgb (11.2-15.7) g/dL 13.4 Hct (36.0-46.0) % 38.9 MCV (80-95) fL 90 MCH (27.0-33.0) pg 31.1 MCHC (32.0-36.0) % 34.4 RDW (11.7-14.6) % 11.9 Plt Count (130-400) 10^3/uL 196 MPV (8.0-11.0) fL 9.5 Immature Gran % % 0.2 Neutrophils % % 58.3 Lymphocytes % % 30.8 Monocytes % % 8.6 Eosinophils % % 1.4 Basophils % % 0.7 Nucleated RBC % (0.0-0.3) % 0.0 Absolute Neutrophils (1.2-6.7) 10^3/uL 2.57 Absolute Lymphocytes (1.2-3.4) 10^3/uL 1.36 Absolute Monocytes (0.1-0.8) 10^3/uL 0.38 Absolute Eosinophils (0.0-0.7) 10^3/uL 0.06 Absolute Basophils (0.0-0.2) 10^3/uL 0.03 PT (9.1-11.1) sec 10.2 INR (0.9-1.1) 1.0 APTT (20.6-30.2) sec 22.5 Sodium (136-145) mmol/L 138 Potassium (3.5-5.1) mmol/L 4.2 Chloride (98-107) mmol/L 101 Carbon Dioxide (21.0-32.0) mmol/L 30.0 Anion Gap (3-11) mmol/L 7.0 BUN (7-18) mg/dL 20 H Creatinine (0.55-1.02) mg/dL 0.8 Est GFR (CKD-EPI 2020) (mL/min/1.73m2) 89.71 Glucose (74-106) mg/dL 295 H Calcium (8.5-10.1) mg/dL 9.4 Magnesium (1.8-2.4) mg/dL 1.9 Total Bilirubin (0.2-1.0) mg/dL 0.5 AST (15-37) U/L 35 ALT (14-59) U/L 41 Alkaline Phosphatase (46-116) U/L 114 Troponin I (<or=51) ng/L 7 6 NT-Pro-B Natriuret Pep (<300) pg/mL 91 Total Protein (6.4-8.2) g/dL 7.7 Albumin (3.4-5.0) g/dL 3.7 Lipase (<78) U/L 21 Range/Units 02/12/25 07:07 WBC (4.4-10.8) 10^3/uL RBC (3.93-5.22) 10^6/uL Hgb (11.2-15.7) g/dL Hct (36.0-46.0) % MCV (80-95) fL MCH (27.0-33.0) pg MCHC (32.0-36.0) % RDW (11.7-14.6) % Plt Count (130-400) 10^3/uL MPV (8.0-11.0) fL Immature Gran % % Neutrophils % % Lymphocytes % % Monocytes % % Eosinophils % % Basophils % % Nucleated RBC % (0.0-0.3) % Absolute Neutrophils (1.2-6.7) 10^3/uL Absolute Lymphocytes (1.2-3.4) 10^3/uL Absolute Monocytes (0.1-0.8) 10^3/uL Absolute Eosinophils (0.0-0.7) 10^3/uL Absolute Basophils (0.0-0.2) 10^3/uL PT (9.1-11.1) sec INR (0.9-1.1) APTT (20.6-30.2) sec Sodium (136-145) mmol/L Potassium (3.5-5.1) mmol/L Chloride (98-107) mmol/L Carbon Dioxide (21.0-32.0) mmol/L Anion Gap (3-11) mmol/L BUN (7-18) mg/dL Creatinine (0.55-1.02) mg/dL Est GFR (CKD-EPI 2020) (mL/min/1.73m2) Glucose (74-106) mg/dL Calcium (8.5-10.1) mg/dL Magnesium (1.8-2.4) mg/dL Total Bilirubin (0.2-1.0) mg/dL AST (15-37) U/L ALT (14-59) U/L Alkaline Phosphatase (46-116) U/L Troponin I (<or=51) ng/L Cancelled NT-Pro-B Natriuret Pep (<300) pg/mL Total Protein (6.4-8.2) g/dL Albumin (3.4-5.0) g/dL Lipase (<78) U/L PFSH All Active Problems (Updated 02/12/25 @ 06:48 by Colette Angeles MD) Arm pain (Acute) Abnormal mammogram of left breast (Acute ~01/2025) Dense breast tissue on mammogram (Acute) Myelopathy 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 (Acute ~11/2024) 11/02/24 Dr Strong at [facility] of spinal cord (Acute ~08/2024) 08/17/24 Neurosurgery Cervical spinal stenosis (Acute) 08/18/24 Neurosurgery visit Persistent central canal [facility] (Acute) Arm numbness left (Acute) Back pain (Acute) UTI (urinary tract infection) (Acute) Migraine (Chronic) Poorly controlled type 1 diabetes mellitus with autonomic neuropathy (Acute) N&V (nausea and vomiting) (Acute) Chronic GERD (Acute) Elevated LFTs (Acute) PAD (peripheral artery disease) (Acute) ADIEL - done at [facility] surgical 01/28/24 Dysphagia (Acute) DKA (diabetic ketoacidosis) (Acute) Hx of tonsillectomy (Chronic) Atherosclerosis of coronary artery without angina pectoris (Acute) Retinopathy due to secondary diabetes mellitus (Acute) Gastroesophageal reflux disease without esophagitis (Acute) Mild intermittent asthma (Acute) Hyperlipemia (Acute) H/O heart artery stent (Chronic) 2 Stents at [facility] 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 of right ear (Acute) Nail dystrophy (Acute) Type 1 diabetes mellitus with diabetic polyneuropathy (Acute) Retinopathy (Acute) Type 1 diabetes mellitus (Acute) Asthma (Chronic) GERD (gastroesophageal reflux disease) (Chronic) CAD (coronary artery disease), [place] coronary artery (Acute) Neurogenic bladder (Acute) IDDM (insulin dependent diabetes mellitus) (Chronic) Nonsustained paroxysmal ventricular tachycardia (Acute) Vitamin D deficiency (Acute) Neuropathy (Acute) Chronic kidney disease, stage I (Acute) Hearing loss (Acute) Blind right eye (Acute) Cellulitis of foot (Acute) Medical History Brain TIA Hypomagnesemia Cancer of cervix Hyperkalemia Visual loss Acute pain in female pelvis Elevated troponin History of deep vein thrombophlebitis of lower extremity Surgical History Hx of LASIK Hx of section At [facility] 2007 History of partial hysterectomy Family History Father Asthma Diabetes Heart disease Hypertension Maternal Aunt Breast cancer Mother Hypertension Heart disease Maternal Aunt Breast cancer COPD (chronic obstructive pulmonary disease) Maternal Aunt Diabetes Social History Smoking/Tobacco Use Status: Never Second Hand Exposure: Yes Smoking risk assessment performed?: Yes Alcohol Intake: never Drug use: Never Substance use type: does not use Adopted: No Caregiver/Support person: Yes (significant other) Foster care: No Household members: significant other and children Housing: apartment Number of Children: 1 number of grandchildren: 0 Communication Needs: Hard of Hearing and Blind Education Level: high school Do you need help understanding health information?: Often current occupation: Disabled Pets and animals: Yes (1 Cat, 2 Guinea Pigs) Pets and animals: cat(s) and guinea pig(s) Do you think of yourself as: straight/heterosexual Current gender identity: female What is your relationship status?: living with partner How often do you talk on the phone with friends or family?: three or more times per week How often do you get together with friends or relatives?: three or more times per week How often do you attend adventist or mosque services?: decline to answer Do you belong to any clubs or organized social groups?: no Panel score (0-1 are the most socially isolated patients): 2 What type of physical activity do you participate in: walking Duration: 15-30 minutes/day Frequency: daily Trina/Zoroastrian: None Seatbelt use: always Drive intox or ride w/intox local hazmat driver: No Do you feel safe at home: Yes Do you feel safe in your relationship?: Yes Female Reproductive History Menstrual Menopause type: surgical History History 14 Para Hx # Term Pregnancies Multiple births Hx # Pregnancies 1 Ectopic pregnancies AB induced Hx Number of Living Children AB spontaneous
[2025-02-12 04:32] LABS: Abs Immature Grans 0.01 10^3/uL (0.0-0.06); HCT 38.9 % (36.0-46.0); HGB 13.4 g/dL (11.2-15.7); Immature Grans % 0.2 %; MCH 31.1 pg (27.0-33.0); MCHC 34.4 % (32.0-36.0); MCV 90 fL (80-95); MPV 9.5 fL (8.0-11.0); Platelet Count 196 10^3/uL (130-400); RBC 4.31 10^6/uL (3.93-5.22); RDW 11.9 % (11.7-14.6); RDW-SD 39.4 fL; WBC 4.41 10^3/uL (4.4-10.8)
[2025-02-12 04:49] LABS: INR 1.0 (0.9-1.1); PTT Activated 22.5 sec (20.6-30.2); Prothrombin Time 10.2 sec (9.1-11.1)
[2025-02-12] MEDS: Omnipaque 350 MG/ML 100 ML BTL IJ (04:58)
[2025-02-12] MEDS: Normal Saline - Diluent 50 ML VIAL IJ (05:01)
[2025-02-12 05:06] LABS: ALT 41 U/L (14-59); AST 35 U/L (15-37); Albumin 3.7 g/dL (3.4-5.0); Alkaline Phosphatase 114 U/L (46-116); Anion Gap 7.0 mmol/L (3-11); BUN 20 mg/dL (7-18); Bilirubin, Total 0.5 mg/dL (0.2-1.0); CO2 30.0 mmol/L (21.0-32.0); Calcium 9.4 mg/dL (8.5-10.1); Chloride 101 mmol/L (98-107); Estimated GFR 89.71 (mL/min/1.73m2); Glucose 295 mg/dL (74-106); Lipase 21 U/L (<78); Magnesium 1.9 mg/dL (1.8-2.4); NT-proBNP 91 pg/mL (<300); Potassium 4.2 mmol/L (3.5-5.1); Sodium 138 mmol/L (136-145); Total Protein 7.7 g/dL (6.4-8.2); Troponin I 7 ng/L (<or=51)
--- NOTE | 2025-02-12 05:35 | DI.VRAD_ITS ---
PROCEDURE INFORMATION: Exam: CTA Chest With Contrast Exam date and time: 02/12/2025 4:56 AM Age: 49 years old Clinical indication: Chest wall pain; Additional info: Chest pain TECHNIQUE: Imaging protocol: Computed tomographic angiography of the chest with contrast. Exam focused on the arteries. 3D rendering (Not supervised by radiologist): MIP and/or 3D reconstructed images were created by the technologist. Contrast material: OMNI 350; Contrast volume: 60 ml; Contrast route: INTRAVENOUS (IV); COMPARISON: CT CHEST PE CTA 07/05/2023 12:57 PM FINDINGS: Pulmonary arteries: No pulmonary embolism identified. Aorta: No thoracic aortic aneurysm or dissection. Thyroid: Thyroid gland partially excluded from view but grossly unremarkable through its visualized portion. Lungs: No pulmonary consolidation. Pleural spaces: No pleural effusion or pneumothorax. Heart: Normal-sized heart. Lymph nodes: No pathologically enlarged mediastinal or hilar lymph nodes. Bones/joints: Subacute fracture through the anterolateral aspect of the right 8th rib with bony callus formation but incomplete bony union, images 55-56 of series 4 and 23 of series 8. Subtle sclerotic foci along the anterolateral aspect of the right 2nd, 3rd, and 4th ribs suspicious for incompletely healed incomplete rib fractures. Lower ribs partially excluded from view and incompletely evaluated. Otherwise, no acute fracture seen among the bones of the chest. Soft tissues: No gross soft tissue mass or fluid collection seen in the chest wall. IMPRESSION: Subacute fracture through the anterolateral aspect of the right 8th rib with bony callus formation but incomplete bony union, images 55-56 of series 4 and 23 of series 8. Subtle sclerotic foci along the anterolateral aspect of the right 2nd, 3rd, and 4th ribs suspicious for incompletely healed incomplete rib fractures. Dictated and Authenticated by: Lopez Ledbetter MD. Orderin Karthik Alvarenga MD
[2025-02-12 05:57] LABS: Troponin I 6 ng/L (<or=51)
[2025-02-12] MEDS: Acetaminophen 500 MG TAB 1000 MG PO (06:30)
[2025-02-12] MEDS: Ketorolac 15 MG/ML VIAL IVP (06:31)
== END 2025-02-12 07:17 | disposition home or self-care (01) ==
PROVIDERS: Emergency Provider Student in an Organized Health Care Education/Training Program; PCP Nurse Practitioner
DX: M79.622 Pain in left upper arm (principal); I45.2 Bifascicular block; E11.9 Type 2 diabetes mellitus without complications; I25.10 Atherosclerotic heart disease of native coronary artery without angina pectoris; I25.2 Old myocardial infarction; Z86.73 Personal history of transient ischemic attack (TIA), and cerebral infarction without residual deficits; Z86.718 Personal history of other venous thrombosis and embolism; Z79.4 Long term (current) use of insulin; Z95.5 Presence of coronary angioplasty implant and graft
CPT/HCPCS: 71275; 80053; 83690; 93005; 96374; 99285; 83735; 83880; 84484; 85025; 85610; 85730; 93010; J1885; J3490

== ENCOUNTER → 2025-02-13 07:54 | Outpatient (BNVA) | payer MEDICARE, MEDICAID, SELFPAY | PROVIDERS: PCP Family Medicine; Referring Provider Family Medicine; Visit Provider Podiatrist | DX: L60.3 Nail dystrophy (principal); B35.1 Tinea unguium; I73.89 Other specified peripheral vascular diseases; E10.42 Type 1 diabetes mellitus with diabetic polyneuropathy; N18.1 Chronic kidney disease, stage 1; R09.89 Other specified symptoms and signs involving the circulatory and respiratory systems; R60.0 Localized edema; R20.8 Other disturbances of skin sensation; L60.8 Other nail disorders | CPT/HCPCS: 11721 ==

== ENCOUNTER → 2025-03-03 09:01 | Outpatient (BNVA) | payer MEDICARE, MEDICAID, SELFPAY | PROVIDERS: PCP Nurse Practitioner; Referring Provider Family Medicine; Visit Provider Internal Medicine Cardiovascular Disease | DX: I25.10 Atherosclerotic heart disease of native coronary artery without angina pectoris (principal) | CPT/HCPCS: 99213 ==

== ENCOUNTER → 2025-05-15 07:54 | Outpatient (BNVA) | payer MEDICARE, MEDICAID, SELFPAY | PROVIDERS: PCP Nurse Practitioner; Referring Provider Family Medicine; Visit Provider Podiatrist | DX: L60.3 Nail dystrophy (principal); B35.1 Tinea unguium; I73.89 Other specified peripheral vascular diseases; E10.42 Type 1 diabetes mellitus with diabetic polyneuropathy; E10.22 Type 1 diabetes mellitus with diabetic chronic kidney disease; N18.1 Chronic kidney disease, stage 1; R09.89 Other specified symptoms and signs involving the circulatory and respiratory systems; R60.0 Localized edema; R20.8 Other disturbances of skin sensation; L53.8 Other specified erythematous conditions | CPT/HCPCS: 11721 ==

== ENCOUNTER 2025-05-19 13:01 | Outpatient (CLI) | payer MEDICARE, MEDICAID, SELFPAY ==
--- NOTE | 2025-05-19 13:00 | RT.EKG_ITS ---
APPROVED REPORT Exam: Resting ECG Reason for Exam: Cardiac risk factors Patient Location: O HR:81 bpm ECG Measurements Heart Rate 81 AXIS WI 138 P 73 QRSd 108 QRS -27 QT 365 T 57 QTc 424 Conclusion Sinus rhythm...normal P axis, V-rate 50- 99 Borderline left axis deviation...QRS axis (-15,-29)
== END 2025-05-19 13:02 | disposition home or self-care (01) ==
LOC: DI.KIM 13:02
PROVIDERS: PCP Nurse Practitioner; Visit Provider Family Medicine
DX: Z01.818 Encounter for other preprocedural examination (principal)
CPT/HCPCS: 93010

== ENCOUNTER → 2025-05-25 11:05 | Outpatient (BNVA) | payer MEDICARE, MEDICAID, SELFPAY | PROVIDERS: PCP Nurse Practitioner; Referring Provider Nurse Practitioner; Visit Provider Internal Medicine Cardiovascular Disease | DX: I25.10 Atherosclerotic heart disease of native coronary artery without angina pectoris (principal); Z95.5 Presence of coronary angioplasty implant and graft | CPT/HCPCS: 99214 ==

== ENCOUNTER 2025-05-29 03:25 | Outpatient (CLI) | payer MEDICARE, MEDICAID, SELFPAY ==
--- NOTE | 2025-05-29 06:41 | DI.NM_ITS ---
APPROVED REPORT Exam: Pharmacologic Patient Location: Out-Patient Room/Bed: Stress Nurse: Sunni Pavon RN Ordering Provider:ROCK RAMIREZ, Contact Number: BMI: 22.99 Baseline Rhythm: Sinus Rhythm Indications: CAD, preop evaluation Medical History Medical History: Brain TIA, hypomagnesemia, Hx. DVT, elevated troponin, cancer of cervix, visual loss, hyperkalemia, CAD, CKD, migraines, poorly controlled DMT1, PAD, GERD, DKA, athma, non sustained paroxysmal vtach Cardiac Medications: Albuterol sulfate, atorvastatin, insulin aspart, insulin glargine, omeprazole Allergies: NKA Cardiac Risk Factors: Family hx, diabetes asthma, HLD, PVD, CVD Previous Cardiac Procedures: H/O heart artery stent x2 (2021) Pretest Chest Pain Characteristics: None Exercise History: Sedentary Physical Disabilities: Balance issues per patient report Lung Sounds: Clear to auscultation Heart Sounds: Regular Stress Test Details Test: Exercise stress testing was performed using a Amrit protocol. Rest Stress HR Resting HR Supine: 75 bpm Max Heart Rate (APMHR): 169 bpm Target HR (85% APMHR): 144 bpm Max HR Achieved: 99 bpm % of APMHR: 59 Recovery HR: 92 bpm HR response to stress: Normal HR response to stress BP Resting BP Supine: 102/64 mmHg Max BP: 112/58 mmHg Recovery BP: 112/58 mmHg BP response to stress: Normal blood pressure response to stress. ECG Resting ECG: Sinus Rhythm Stress ECG: Sinus Rhythm ST Change: Nondiagnostic low heart rate Arrhythmia: Rare PVC Recovery ECG: Sinus Rhythm Recovery ST Change: Nondiagnostic low heart rate Clinical Stress Symptoms: None Angina Score: None Rate Pressure Product: [id number] Stress ECG Conclusion 1. Resting electrocardiogram showed low voltage 2. Patient underwent testing using pharmacologic stress with regadenoson 3. Peak heart rate achieved was 59% of maximal predicted for age 4. The electrocardiographic portion of this test was nondiagnostic 5. See MPI report Stress Test Summary STAGE HR BP SpO2 Symptoms NOTES Supine 75 102/64 94% 1 min post Lexiscan injection 94 104/64 98% 3 min post Lexiscan injection 97 112/54 6 min post Lexiscan injection 92 112/58 99% Laying bonny performed r/t patients report of balance issues. Patient denied all symptoms. Patient proceeded to imaging ambulatory in no apparent distress. MPI Conclusion Myocardial perfusion was normal. There was no ischemia or evidence of prior infarction Ejection fraction was 60%, wall motion was normal
[2025-05-29] MEDS: Regadenoson 0.4 MG/5 ML SYR IVP (11:01)
== END 2025-05-29 03:45 ==
LOC: DI 03:25
PROVIDERS: PCP Nurse Practitioner; Visit Provider Internal Medicine Cardiovascular Disease
DX: I25.10 Atherosclerotic heart disease of native coronary artery without angina pectoris (principal); Z01.818 Encounter for other preprocedural examination
CPT/HCPCS: 78452; 93016; 93018; 93017; J2785